=== PATIENT | female | born 1975 | race African-American/Black ===

== ENCOUNTER 2018-10-25 17:43 | Observation (INO) | payer MEDICAID, OTHER, SELFPAY ==
--- OUTSIDE RECORDS SUMMARY | 2018-10-25 17:45 | XMS REPORT ---
:1975 Author Organization eClinicalWorks Care Team Providers Name Role Phone Lopez, Na Provider Role Unavailable Allergies No Known Allergies Problems Problem Type Condition Code Onset Dates Condition Status Problem Obesity, morbid, BMI 40.0-49.9 E66.01 Active Problem Crohn's disease in remission K50.90 Active Problem Depression with anxiety F41.8 Active Problem Grade I hemorrhoids K64.0 Active Problem Urinary tract infection, site not N39.0 Active specified Problem Adult general medical exam Z00.00 Active Problem Multiple joint pain M25.50 Active Problem High blood pressure I10 Active Problem Seasonal allergic rhinitis due to J30.1 Active pollen Problem Hematuria, unspecified R31.9 Active Problem Chronic fatigue R53.82 Active Medications No Known Medications Results No Known Results Summary Purpose eClinicalWorks Submission
--- OUTSIDE RECORDS SUMMARY | 2018-10-25 17:45 | XMS REPORT ---
:1975 Author Organization [employer]Works Care Team Providers Name Role Phone Lopez, Na Provider Role Unavailable Allergies, Adverse Reactions, Alerts Substance Reaction Event Type N.K.D.A. Info Not Available Non Drug Allergy Problems Problem Type Condition Code Onset Dates Condition Status Problem Obesity, morbid, BMI 40.0-49.9 E66.01 Active Problem Crohn's disease in remission K50.90 Active Problem Depression with anxiety F41.8 Active Problem Urinary tract infection, site not N39.0 Active specified Problem Adult general medical exam Z00.00 Active Problem Multiple joint pain M25.50 Active Problem High blood pressure I10 Active Problem Seasonal allergic rhinitis due to J30.1 Active pollen Problem Hematuria, unspecified R31.9 Active Problem Chronic fatigue R53.82 Active Assessment Urinary tract infection, site not N39.0 Active specified Assessment High blood pressure I10 Active Assessment Hematuria, unspecified R31.9 Active Assessment Crohn's disease in remission K50.90 Active Assessment Multiple joint pain M25.50 Active Assessment Chronic fatigue R53.82 Active Assessment Adult general medical exam Z00.00 Active Assessment Depression with anxiety F41.8 Active Problem Grade I hemorrhoids K64.0 Active Medications Medication Code Code Instructions Start End Status Dosage System Date Date Paxil [facility] 14954886441 20 MG Orally December 26, Active 1 tablet Once a day 2017 in the morning Macrobid [facility] [place] [id number] 100 MG Orally Active 1 capsule every 12 hrs with food Metoprolol [facility] [place] [id number] 25 MG Orally December 26, Active 1 tablet Tartrate Twice a day 2017 with food Results No Known Results Summary Purpose eClinicalWorks Submission
--- OUTSIDE RECORDS SUMMARY | 2018-10-25 17:45 | XMS REPORT ---
:1975 Author Organization eClinicalWorks Care Team Providers Name Role Phone Lopez, Na Provider Role Unavailable Allergies, Adverse Reactions, Alerts Substance Reaction Event Type N.K.D.A. Info Not Available Non Drug Allergy Problems Problem Type Condition Code Onset Dates Condition Status Assessment Obesity, morbid, BMI 40.0-49.9 E66.01 Active Assessment Depression with anxiety F41.8 Active Assessment Seasonal allergic rhinitis due to J30.1 Active pollen Problem Depression with anxiety F41.8 Active Problem High blood pressure I10 Active Problem Obesity, morbid, BMI 40.0-49.9 E66.01 Active Assessment High blood pressure I10 Active Assessment Crohn's disease in remission K50.90 Active Problem Seasonal allergic rhinitis due to J30.1 Active pollen Problem Crohn's disease in remission K50.90 Active Medications Medication Code Code Instructions Start End Status Dosage System Date Date Paxil [facility] [id number] 20 MG Orally December 26, Active 1 tablet Once a day 2017 in the morning Metoprolol [facility] [id number] 25 MG Orally December 26, Active 1 tablet Tartrate Twice a day 2017 with food Results No Known Results Summary Purpose eClinicalWorks Submission
--- NOTE | 2018-10-25 20:08 | EDPHYS ---
Physician Documentation [facility] Name: Dori Guardado Age: 43 yrs Sex: Female : 1975 Arrival Date: 10/25/2018 Time: 17:45 Bed 20 Private MD: None, None ED Physician Hardy Yee HPI: 10/25 18:17 This 43 yrs old Black Female presents to ER via Ambulatory with complaints of Abdominal kdr Pain - crohn's. 18:17 The patient presents with abdominal pain in the epigastric area, in the upper abdomen. kdr Onset: The symptoms/episode began/occurred gradually, yesterday. The symptoms do not radiate. Associated signs and symptoms: Pertinent positives: blood in stools, nausea, Pertinent negatives: anorexia, constipation, diarrhea, dysuria, fever, headache, hematuria, palpitations, shortness of breath, vaginal discharge, vomiting, vomiting blood. The symptoms are described as achy, burning, intermittent. Modifying factors: The symptoms are alleviated by nothing, the symptoms are aggravated by food. Severity of pain: At its worst the pain was mild moderate just prior to arrival, this morning, in the emergency department the pain has improved moderately. The patient has experienced similar episodes in the past, a few times. The patient has not recently seen a physician. 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 - Social history:: Smoking status: Patient/guardian denies using tobacco. - Ebola Screening: : Patient denies travel to an Ebola-affected area in the 21 days before illness onset. ROS: 18:17 Constitutional: Negative for fever, chills, and weight loss, Eyes: Negative for injury, kdr pain, redness, and discharge, ENT: Negative for injury, pain, and discharge, Neck: Negative for injury, pain, and swelling, Cardiovascular: Negative for chest pain, palpitations, and edema, Respiratory: Negative for shortness of breath, cough, wheezing, and pleuritic chest pain, Back: Negative for injury and pain, : Negative for injury, bleeding, discharge, and swelling, MS/Extremity: Negative for injury and deformity, Skin: Negative for injury, rash, and discoloration, Neuro: Negative for headache, weakness, numbness, tingling, and seizure activity. Psych: Negative for depression, anxiety, suicide ideation, homicidal ideation, and hallucinations, Allergy/Immunology: Negative for hives, rash, and allergies, Endocrine: Negative for neck swelling, polydipsia, polyuria, polyphagia, and marked weight changes, Hematologic/Lymphatic: Negative for swollen nodes, abnormal bleeding, and unusual bruising. 18:17 Abdomen/GI: Positive for abdominal pain, nausea, rectal bleeding, Negative for vomiting, diarrhea, constipation, abdominal distension, anorexia, dysphagia, hematemesis, black/tarry stool, rectal pain, bowel incontinence, flatulence, acute changes. Exam: 18:17 Constitutional: This is a well developed, well nourished patient who is awake, alert, kdr and in no acute distress. Head/Face: Normocephalic, atraumatic. Eyes: Pupils equal round and reactive to light, extra-ocular motions intact. Lids and lashes normal. Conjunctiva and sclera are non-icteric and not injected. Cornea within normal limits. Periorbital areas with no swelling, redness, or edema. Neck: Trachea midline, no thyromegaly or masses palpated, and no cervical lymphadenopathy. Supple, full range of motion without nuchal rigidity, or vertebral point tenderness. No Meningismus. Chest/axilla: Normal chest wall appearance and motion. Nontender with no deformity. No lesions are appreciated. Cardiovascular: Regular rate and rhythm with a normal S1 and S2. No gallops, murmurs, or rubs. Normal PMI, no JVD. No pulse deficits. Respiratory: Lungs have equal breath sounds bilaterally, clear to auscultation and percussion. No rales, rhonchi or wheezes noted. No increased work of breathing, no retractions or nasal flaring. Back: No spinal tenderness. No costovertebral tenderness. Full range of motion. Skin: Warm, dry with normal turgor. Normal color with no rashes, no lesions, and no evidence of cellulitis. MS/ Extremity: Pulses equal, no cyanosis. Neurovascular intact. Full, normal range of motion. Neuro: Awake and alert, GCS 15, oriented to person, place, time, and situation. Cranial nerves II-XII grossly intact. Motor strength 5/5 in all extremities. Sensory grossly intact. Cerebellar exam normal. Normal gait. Psych: Awake, alert, with orientation to person, place and time. Behavior, mood, and affect are within normal limits. 18:17 Abdomen/GI: Inspection: obese Bowel sounds: active, high pitched, all quadrants. Palpation: soft, mild abdominal tenderness, in the right upper quadrant and left upper quadrant. 20:04 Musculoskeletal/extremity: DVT Exam: No signs of deep vein thrombosis. no pain, no sidney swelling, no tenderness, negative Homans' sign noted on exam, no appreciated bluish discoloration, no erythema, no increased warmth. Vital Signs: 18:07 BP 149 / 96; Pulse 77; Resp 16; Temp 98.2; Pulse Ox 99% on R/A; Weight 127.01 kg (R); aj1 Height 5 ft. 3 in. (160.02 cm) (R); 19:00 BP 139 / 75; Pulse 68; Resp 16; Pulse Ox 95% on R/A; jb4 20:00 BP 128 / 84; Pulse 69; Resp 16; Pulse Ox 69% on R/A; jb4 21:00 BP 143 / 87; Pulse 68; Resp 16; Pulse Ox 95% on R/A; jb4 22:00 BP 146 / 83; Pulse 77; Resp 16; Pulse Ox 96% on R/A; jb4 18:07 Body Mass Index 49.60 (127.01 kg, 160.02 cm) aj1 Procedures: 20:04 Peripheral line: by aseptic technique a peripheral line was placed in the left external sidney jugular vein. MDM: 18:17 Data reviewed: vital signs, nurses notes, lab test result(s), radiologic studies. kdr Counseling: I had a detailed discussion with the patient and/or guardian regarding: the historical points, exam findings, and any diagnostic results supporting the discharge/admit diagnosis, lab results, radiology results. 19:40 Patient medically screened. [facility] 10/25 18:04 Order name: Basic Metabolic Panel; Complete Time: 21:35 kdr 10/25 18:04 Order name: CBC with Diff; Complete Time: 21:35 kdr 10/25 18:04 Order name: Creatinine for Radiology; Complete Time: 21:35 kdr 10/25 18:04 Order name: Hepatic Function; Complete Time: 21:35 [facility] 10/25 18:04 Order name: Lipase; Complete Time: 21:35 [facility] 10/25 20:03 Order name: PT-INR; Complete Time: 21:35 [facility] 10/25 20:03 Order name: D-Dimer; Complete Time: 21:35 [facility] 10/25 20:14 Order name: Troponin I; Complete Time: 21:35 [facility] 10/25 20:14 Order name: NT PRO-BNP; Complete Time: 21:35 [facility] 10/25 20:14 Order name: Magnesium; Complete Time: 21:35 [facility] 10/25 20:49 Order name: CBC with Automated Diff [facility] 10/25 18:04 Order name: IV Saline Lock; Complete Time: 20:00 [facility] 10/25 18:04 Order name: Labs collected and sent; Complete Time: 20:00 [facility] 10/25 20:03 Order name: EKG; Complete Time: 20:04 [facility] 10/25 20:03 Order name: Cardiac monitoring; Complete Time: 20:38 [facility] 10/25 20:03 Order name: EKG - Nurse/Tech; Complete Time: 20:38 [facility] 10/25 20:03 Order name: Abdomen Acute Series XRAY [facility] 10/25 20:49 Order name: CONS Pharmacy Consult [facility] 10/25 20:49 Order name: NPO [facility] 10/25 20:49 Order name: CBC with Automated Diff [facility] 10/25 20:49 Order name: Comprehensive Metabolic Panel [facility] 10/25 20:49 Order name: Comprehensive Metabolic Panel [facility] 10/25 20:03 Order name: O2 Per Protocol; Complete Time: 20:38 [facility] 10/25 20:03 Order name: O2 Sat Monitoring; Complete Time: 20:38 [facility] Administered Medications: 20:05 Drug: Pepcid 20 mg Route: IVP; Site: left jugular; jb4 22:20 Follow up: Response: No adverse reaction jb4 20:35 Drug: Zofran 4 mg Route: IVP; Site: left jugular; jb4 21:27 Follow up: Response: No adverse reaction; Nausea is decreased jb4 20:37 Drug: fentaNYL (PF) 25 mcg Route: IVP; Site: left jugular; jb4 21:27 Follow up: Response: No adverse reaction; Pain is decreased jb4 21:27 Not Given (Physician Discretion): fentaNYL (PF) 25 mcg IVP once jb4 Disposition: 10/25/18 20:07 Hospitalization ordered by Yeison Baron for Observation. Preliminary diagnosis are Chest pain, unspecified, Abdominal tenderness, Crohn's disease [regional enteritis] - hx of, Atrial fibrillation and flutter - hx of. - Bed requested for Telemetry/MedSurg (observation). - Status is Observation. jb4 - Condition is Stable. - Problem is new. - Symptoms have improved. UTI on Admission? No Signatures: Dispatcher [employer] EDMS Marie Duarte, RN RN aj1 Kaycee Lr RN RN Hardy Meng MD MD cha Rittger, Kevin, MD MD kdr Bryson, James, RN RN jb4 Corrections: (The following items were deleted from the chart) 20:13 20:04 MAGNESIUM+C.LAB.BRZ ordered. EDMS EDMS 20:13 20:04 PROBNP+C.LAB.BRZ ordered. EDID EDMS 20:13 20:04 TROPONIN (EMERG DEPT USE ONLY)+C.LAB.BRZ ordered. EDID EDMS 20:24 18:15 Abdomen Pelvis W Con+CT.RAD.BRZ ordered. EDID EDMS 20:52 20:07 Hospitalization Ordered by Yeison Baron MD for Observation. Preliminary mw diagnosis is Chest pain, unspecified; Abdominal tenderness; Crohn's disease [regional enteritis] - hx of; Atrial fibrillation and flutter - hx of. Bed requested for Telemetry/MedSurg (observation). Status is Observation. Condition is Stable. Problem is new. Symptoms have improved. UTI on Admission? No. sidney 22:20 20:52 10/25/2018 20:07 Hospitalization Ordered by Yeison Baron MD for Observation. jb4 Preliminary diagnosis is Chest pain, unspecified; Abdominal tenderness; Crohn's disease [regional enteritis] - hx of; Atrial fibrillation and flutter - hx of. Bed requested for Telemetry/MedSurg (observation). Status is Observation. Condition is Stable. Problem is new. Symptoms have improved. UTI on Admission? No. mw
--- NOTE | 2018-10-25 20:08 | ER ---
Nurse's Notes [facility] Name: Dori Guardado Age: 43 yrs Sex: Female : 1975 Arrival Date: 10/25/2018 Time: 17:45 Bed 20 Private MD: None, None Diagnosis: Chest pain, unspecified;Abdominal tenderness;Crohn's disease [regional enteritis]-hx of;Atrial fibrillation and flutter-hx of Presentation: 10/25 18:03 Presenting complaint: Patient states: Epigastric pain that gets worse after eating, she aj1 also noticed some blood in her stool this morning. Denies N/V. Reports "some loose stool" Denies fever. Transition of care: patient was not received from another setting of care. Onset of symptoms was October 25, 2018. Risk Assessment: Do you want to hurt yourself or someone else? Patient reports no desire to harm self or others. Initial Sepsis Screen: Does the patient meet any 2 criteria? No. Patient's initial sepsis screen is negative. Does the patient have a suspected source of infection? No. Patient's initial sepsis screen is negative. Care prior to arrival: None. 18:03 Method Of Arrival: Ambulatory aj1 18:03 Acuity: KASH 3 aj1 Triage Assessment: 18:07 General: Appears in no apparent distress. comfortable, Behavior is calm, cooperative, aj1 appropriate for age. Pain: Complains of pain in epigastric area. Neuro: Level of Consciousness is awake, alert, obeys commands, Oriented to person, place, time, situation. GI: Reports upper abdominal pain. 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 - Social history:: Smoking status: Patient/guardian denies using tobacco. - Ebola Screening: : Patient denies travel to an Ebola-affected area in the 21 days before illness onset. Screenin:10 Abuse screen: Denies threats or abuse. Denies injuries from another. Nutritional aj1 screening: No deficits noted. Tuberculosis screening: No symptoms or risk factors identified. 21:38 Fall Risk None identified. jb4 Assessment: 18:10 General: Appears in no apparent distress. comfortable, Behavior is calm, cooperative, aj1 appropriate for age. Pain: Complains of pain in epigastric area. Neuro: Level of Consciousness is awake, alert, obeys commands, Oriented to person, place, time, situation. Cardiovascular: Patient's skin is warm and dry. Respiratory: Airway is patent Respiratory effort is even, unlabored, Respiratory pattern is regular, symmetrical. GI: Abdomen is non-distended, Bowel sounds present X 4 quads. Abd is soft X 4 quads Abdomen is tender to palpation in epigastric area. : No signs and/or symptoms were reported regarding the genitourinary system. EENT: No signs and/or symptoms were reported regarding the EENT system. Derm: No signs and/or symptoms reported regarding the dermatologic system. Skin is pink, warm \\T\\ dry. normal. Musculoskeletal: No signs and/or symptoms reported regarding the musculoskeletal system. Circulation, motion, and sensation intact. 19:15 Reassessment: Patient appears in no apparent distress at this time. Patient and/or jb4 family updated on plan of care and expected duration. Pain level reassessed. Patient is alert, oriented x 3, equal unlabored respirations, skin warm/dry/pink. 20:00 Reassessment: Patient appears in no apparent distress at this time. Patient and/or jb4 family updated on plan of care and expected duration. Pain level reassessed. Patient is alert, oriented x 3, equal unlabored respirations, skin warm/dry/pink. 21:00 Reassessment: Patient appears in no apparent distress at this time. Patient and/or jb4 family updated on plan of care and expected duration. Pain level reassessed. Patient is alert, oriented x 3, equal unlabored respirations, skin warm/dry/pink. 21:36 Reassessment: report given to Shira DELGADILLO for room 403. jb4 22:18 Reassessment: Patient appears in no apparent distress at this time. Patient and/or jb4 family updated on plan of care and expected duration. Pain level reassessed. Patient is alert, oriented x 3, equal unlabored respirations, skin warm/dry/pink. Vital Signs: 18:07 BP 149 / 96; Pulse 77; Resp 16; Temp 98.2; Pulse Ox 99% on R/A; Weight 127.01 kg (R); aj1 Height 5 ft. 3 in. (160.02 cm) (R); 19:00 BP 139 / 75; Pulse 68; Resp 16; Pulse Ox 95% on R/A; jb4 20:00 BP 128 / 84; Pulse 69; Resp 16; Pulse Ox 69% on R/A; jb4 21:00 BP 143 / 87; Pulse 68; Resp 16; Pulse Ox 95% on R/A; jb4 22:00 BP 146 / 83; Pulse 77; Resp 16; Pulse Ox 96% on R/A; jb4 18:07 Body Mass Index 49.60 (127.01 kg, 160.02 cm) aj1 ED Course: 17:45 Patient arrived in ED. sb2 17:46 None, None is Private Physician. sb2 18:03 Marie Duarte, RN is Primary Nurse. aj1 18:03 Yogesh Singh MD is Attending Physician. kdr 18:06 Triage completed. aj1 18:07 Arm band placed on Patient placed in an exam room. aj1 18:10 Patient has correct armband on for positive identification. Bed in low position. Call aj1 light in reach. Side rails up X 1. 18:10 No provider procedures requiring assistance completed. aj1 18:16 Radiology exam delayed due to lab results not completed at this time. (BUN/Creatinine). nj 19:06 Radiology exam delayed due to lab results not completed at this time. (BUN/Creatinine). jg6 19:38 Radiology exam delayed due to lab results not completed at this time. (BUN/Creatinine). 2 19:40 Attending Physician role handed off by Yogesh Singh MD sidney 19:40 Hardy Yee MD is Attending Physician. sidney 19:55 Radiology exam delayed due to lab results not completed at this time. (BUN/Creatinine). jg6 20:05 Yeison Baron MD is Hospitalizing Provider. sidney 20:06 Primary Nurse role handed off by Marie Duarte, RN jb 20:06 Hong Mosher, RN is Primary Nurse. jb4 20:18 Radiology exam delayed due to lab results not completed at this time. (BUN/Creatinine). nj 20:51 Abdomen Acute Series XRAY In Process Unspecified. EDMS 21:38 Patient admitted, IV remains in place. jb4 Administered Medications: 20:05 Drug: Pepcid 20 mg Route: IVP; Site: left jugular; jb4 22:20 Follow up: Response: No adverse reaction jb4 20:35 Drug: Zofran 4 mg Route: IVP; Site: left jugular; jb4 21:27 Follow up: Response: No adverse reaction; Nausea is decreased jb4 20:37 Drug: fentaNYL (PF) 25 mcg Route: IVP; Site: left jugular; jb4 21:27 Follow up: Response: No adverse reaction; Pain is decreased jb4 21:27 Not Given (Physician Discretion): fentaNYL (PF) 25 mcg IVP once jb4 Outcome: 20:07 Decision to Hospitalize by Provider. sidney 21:37 Admitted to Tele accompanied by tech, family with patient, via wheelchair, room 403, jb4 with chart, Report called to Shira DELGADILLO 21:37 Condition: stable jb4 21:37 Instructed on the need for admit. 22:20 Patient left the ED. jb4 Signatures: Dispatcher [employer] EDMarie Hernández, RN RN aj1 Hardy Yee MD MD cha Rittger, Kevin, MD MD kdr Bryson, James, RN RN jb4 Cj Chavira Victoria vm2 Billeau, Sheri sb2 Garcia, Jessica jg6
[2018-10-25] MEDS ORDERED: FAMOTIDINE 20 MG/2 ML VIAL IV ONE (20:09)
[2018-10-25 20:20] LABS: Absolute Lymphocytes (CBC) 3.5 K/uL (0.7-4.9); Absolute Monocytes 0.7 K/uL (0.1-1.3); Absolute Neutrophil 4.9 K/uL (1.8-8.0); Basophils % 0.6 % (0-1.3); Eosinophils % 0.6 % (0-4.4); Hematocrit 35.7 % (36.0-45.0); Lymphocytes % 37.8 % (15.3-44.8); MPV 8.7 fL (7.6-11.3); Monocytes % 7.7 % (3.3-12.3); RBC Red Blood Cell Count 4.57 M/uL (3.86-4.86)
[2018-10-25] MEDS ORDERED: FENTANYL CITR 100 MCG/2 ML ONE (20:23)
[2018-10-25] MEDS ORDERED: ONDANSETRON 4 MG/2 ML VIAL ONE (20:23)
[2018-10-25 20:37] LABS: Protime INR 1.11
[2018-10-25] MEDS ORDERED: MORPHINE 4 MG/ML SYR IV PRN (20:43)
[2018-10-25] MEDS ORDERED: ONDANSETRON 4 MG/2 ML VIAL IV PRN (20:43)
[2018-10-25 20:45] LABS: ALT/SGPT 20 U/L (12-78); AST/SGOT 15 U/L (15-37); Albumin 3.3 g/dL (3.4-5.0); Alkaline Phosphatase 71 U/L (45-117); BUN Blood Urea Nitrogen 8 mg/dL (7-18); Bicarbonate 26 mmol/L (21-32); Bilirubin Direct 0.2 mg/dL (0-0.2); Bilirubin Total 0.6 mg/dL (0.2-1.0); Glucose Level 84 mg/dL (74-106); Lipase 50 U/L (73-393); Magnesium 1.9 mg/dL (1.8-2.4); NT PRO-BNP 53 pg/mL (<125); Potassium 3.9 mmol/L (3.5-5.1); Protein, Total 8.6 g/dL (6.4-8.2); Sodium Level 140 mmol/L (136-145); Troponin I < 0.02 ng/mL (0.0-0.045)
[2018-10-25] MEDS ORDERED: Levofloxacin500mg IV 500 MG/100 ML BAG IV SCH (21:00)
[2018-10-25] MEDS: NA CHLORIDE 0.9% 1,000 ML IV SCH (22:45)
[2018-10-25] MEDS: METRONIDAZOLE 500mg IVPB 500 MG/100 ML BAG IV SCH (22:46)
[2018-10-25 23:07] VITALS: BMI 51.2
[2018-10-26] MEDS: METHYLPREDNISOLONE 125 MG INJ IV SCH ×3 (00:34→11:52)
[2018-10-26] MEDS: METRONIDAZOLE 500mg IVPB 500 MG/100 ML BAG IV SCH ×2 (03:20→09:22)
[2018-10-26] MEDS: ACETAMINOPHEN 500 MG TAB PO PRN ×2 (05:43→11:57)
[2018-10-26 06:13] LABS: Urine Appearance CLEAR; Urine Bilirubin NEGATIVE (NEG); Urine Blood NEGATIVE (NEG); Urine Color YELLOW; Urine Glucose NEGATIVE (NEG); Urine Protein NEGATIVE (NEG); Urine Specific Gravity 1.015 (1.005-1.030); Urine Urobilinogen 0.2 mg/dL (0.2-1.0); Urine pH 6.5 (5.0-7.0)
[2018-10-26 06:14] LABS: Urine Microscopic Reflex NO UMIC
[2018-10-26 06:14] LABS: Absolute Lymphocytes (CBC) 1.3 K/uL (0.7-4.9); Absolute Monocytes 0.1 K/uL (0.1-1.3); Absolute Neutrophil 5.7 K/uL (1.8-8.0); Basophils % 0.4 % (0-1.3); Hematocrit 36.6 % (36.0-45.0); Lymphocytes % 18.6 % (15.3-44.8); MPV 8.9 fL (7.6-11.3); Monocytes % 1.9 % (3.3-12.3); RBC Red Blood Cell Count 4.68 M/uL (3.86-4.86)
[2018-10-26 06:22] LABS: ALT/SGPT 19 U/L (12-78); AST/SGOT 16 U/L (15-37); Albumin 3.2 g/dL (3.4-5.0); Alkaline Phosphatase 78 U/L (45-117); BUN Blood Urea Nitrogen 8 mg/dL (7-18); Bicarbonate 25 mmol/L (21-32); Bilirubin Total 0.7 mg/dL (0.2-1.0); Glucose Level 125 mg/dL (74-106); Potassium 4.1 mmol/L (3.5-5.1); Protein, Total 8.6 g/dL (6.4-8.2); Sodium Level 140 mmol/L (136-145)
--- NOTE | 2018-10-26 07:22 | RAD REPORT ---
EXAM DESCRIPTION: RAD - Abdomen Acute Series - 10/25/2018 8:51 pm CLINICAL HISTORY: Lower chest pain, abdominal pain COMPARISON: Chest exam March 2017, CT abdomen March 2017 FINDINGS: Lungs are clear. Heart size is upper normal. Vasculature within normal limits. No failure or volume overload. Heart size is stable from comparison. No pleural effusion, pneumothorax or other acute cardiopulmonary process seen. Bowel gas pattern is nonspecific. No bowel obstruction, free air or other acute findings. No suspicio us calcifications. Cholecystectomy clips are present. No other suspicious for significant findings. IMPRESSION: Chest, abdomen and plain film show no acute or suspicious finding. Continued unexplained pain symptoms can be further evaluated with CT imaging as warranted.
[2018-10-26] MEDS ORDERED: INFLUENZA VACCINE (for 3y+) 0.5 ML DOSE IMVAC ONE (08:00)
--- NOTE | 2018-10-26 08:08 | P.HP ---
Certification for Inpatient Patient admitted to: Observation With expected LOS: <2 Midnights Practitioner: I am a practitioner with admitting privileges, knowledge of patient current condition, hospital course, and medical plan of care. Services: Services provided to patient in accordance with Admission requirements found in Title 42 Section 412.3 of the Code of Federal Regulations Patient History Date of Service: 10/25/18 Reason for admission: epigastric pain/ chest pain/ blood in stools History of Present Illness: Patient is a 43-year-old female who came into the hospital with epigastric pain. She has a history of Crohn's disease and has also noticed some blood in her stools which she thought was related to hemorrhoids. She was on Humira in the past for her Crohn's disease. However, after attending a seminar she started on herbal medications. She has not had a flare up in the last 3 years. This is the 1st time she has had some tenderness. She came into the hospital for further evaluation. Allergies No Known Allergies Allergy (Verified 10/25/18 22:51) Home Medications: Metoprolol Tartrate [Lopressor*] 25 mg PO BID 02/12/14 Aspirin 81 mg PO DAILY 09/16/14 Famotidine [Pepcid] 1 tab PO DAILY 10/26/18 Omeprazole 1 cap PO DAILY 10/26/18 - Past Medical/Surgical History Has patient received pneumonia vaccine in the past: No Diabetic: No -: HTN -: Atrial fibrillation -: partial hysterectomy -: Partial resection small intestine -: section -: Appendectomy -: Cholecystectomy - Family History Father Medical History: Heart disease, Diabetes Mother Medical History: Heart disease, Diabetes - Social History Smoking Status: Never smoker Alcohol use: No CD- Drugs: No Caffeine use: No Place of Residence: Home Review of Systems 10-point ROS is otherwise unremarkable Physical Examination - Vital Signs Temperature: 98.8 F Blood Pressure: 124/67 Pulse: 72 Respirations: 16 Pulse Ox (%): 97 - Physical Exam General: Alert, In no apparent distress, Oriented x3 HEENT: Atraumatic, PERRLA, Mucous membr. moist/pink, EOMI, Sclerae nonicteric Neck: Supple, 2+ carotid pulse no bruit, No LAD, Without JVD or thyroid abnormality Respiratory: Clear to auscultation bilaterally, Normal air movement Cardiovascular: Regular rate/rhythm, Normal S1 S2, No murmurs Gastrointestinal: Normal bowel sounds, Soft and benign, Non-distended, Tenderness ( Left upper quadrant) Musculoskeletal: No clubbing, No swelling, No tenderness Integumentary: No rashes Neurological: Normal gait, Normal speech, Normal strength at 5/5 x4 extr, Normal tone, Sensation intact, Cranial nerves 3-12 intact, Normal affect Lymphatics: No axilla or inguinal lymphadenopathy - Studies Laboratory Data (last 24 hrs) 10/25/18 20:03: Magnesium Cancelled 10/25/18 19:55: PT 13.1 H, INR 1.11 10/25/18 19:55: Creatinine 0.69 10/25/18 19:55: WBC 9.2, Hgb 11.5 L, Hct 35.7 L, Plt Count 368 10/25/18 19:55: Sodium 140, Potassium 3.9, BUN 8, Creatinine 0.65, Glucose 84, Magnesium 1.9, Total Bilirubin 0.6, AST 15, ALT 20, Alkaline Phosphatase 71, Troponin I < 0.02, Lipase 50 L Assessment & Plan - Problems (Diagnosis) (1) Colitis Current Visit: Yes Status: Acute (2) Atrial fibrillation Current Visit: No Status: Acute (3) Crohns disease Current Visit: No Status: Acute (4) Hypertension Current Visit: No Status: Acute Qualifiers: (5) Obesity Current Visit: No Status: Acute - Plan Plan: 1. IV fluids and IV antibiotics 2. give 1 dose of IV steroids 3. GI consultation as an outpatient 4. Pain control 5. Outpatient colonoscopy 6. pain is in the epigastric region so will rule out cardiac etiology with troponins and echocardiogram; she may need further testing as an outpatient unless her symptoms worsen in the hospital 7. GI and DVT prophylaxis Discharge Plan: Home Plan to discharge in: 48 Hours - Advance Directives Does patient have a Living Will: No Does patient have a Durable POA for Healthcare: No - Code Status/Comfort Care Code Status Assessed: Yes Code Status: Full Code Critical Care: No Time Spent Managing PTS Care (In Minutes): 45
[2018-10-26] MEDS ORDERED: HOME MED 1 EA UNK (Omeprazole [Omeprazole] 1 CAP) PO SCH (09:00)
[2018-10-26] MEDS ORDERED: METOPROLOL TAR 25 MG TAB PO SCH (09:00)
[2018-10-26] MEDS ORDERED: ASPIRIN 81 MG CHEWABLE TABLET PO SCH (09:00)
[2018-10-26] MEDS ORDERED: FAMOTIDINE 20 MG TAB PO SCH (09:00)
[2018-10-26] MEDS ORDERED: PANTOPRAZOLE 40MG TABLET PO SCH (09:18)
[2018-10-26] MEDS: NA CHLORIDE 0.9% 1,000 ML IV SCH (10:20)
[2018-10-26 10:39] VITALS: O2SAT 92
[2018-10-26 13:25] VITALS: BP 120/81; TEMP 97.1
--- NOTE | 2018-10-26 14:14 | P.SSS ---
Patient History Date of Service: 10/26/18 Reason for admission: epigastric pain/ chest pain/ blood in stools History of Present Illness: Patient is a 43-year-old female who came into the hospital with epigastric pain. She has a history of Crohn's disease and has also noticed some blood in her stools which she thought was related to hemorrhoids. She was on Humira in the past for her Crohn's disease. However, after attending a seminar she started on herbal medications. She has not had a flare up in the last 3 years. This is the 1st time she has had some tenderness. She came into the hospital for further evaluation. Allergies No Known Allergies Allergy (Verified 10/25/18 22:51) Home Medications: Metoprolol Tartrate [Lopressor*] 25 mg PO BID 02/12/14 Aspirin 81 mg PO DAILY 09/16/14 Famotidine [Pepcid] 1 tab PO DAILY 10/26/18 Omeprazole 1 cap PO DAILY 10/26/18 Prednisone [Deltasone] 20 mg PO BID #10 tablet 10/26/18 - Past Medical/Surgical History Has patient received pneumonia vaccine in the past: No Diabetic: No -: HTN -: Atrial fibrillation -: partial hysterectomy -: Partial resection small intestine -: section -: Appendectomy -: Cholecystectomy - Family History Father -: Heart disease, Diabetes Mother -: Heart disease, Diabetes - Social History Smoking Status: Never smoker Alcohol use: No CD- Drugs: No Caffeine use: No Place of Residence: Home Review of Systems 10-point ROS is otherwise unremarkable Physical Examination - Vital Signs Temperature: 97.1 F Blood Pressure: 120/81 Pulse: 70 Respirations: 20 Pulse Ox (%): 93 - Physical Exam General: Alert, In no apparent distress HEENT: Atraumatic, PERRLA, Mucous membr. moist/pink, EOMI, Sclerae nonicteric Neck: Supple, 2+ carotid pulse no bruit, No LAD, Without JVD or thyroid abnormality Respiratory: Clear to auscultation bilaterally, Normal air movement Cardiovascular: Regular rate/rhythm, Normal S1 S2 Gastrointestinal: Normal bowel sounds, No tenderness Musculoskeletal: No tenderness Integumentary: No rashes Neurological: Normal gait, Normal speech, Normal strength at 5/5 x4 extr, Normal tone, Normal affect Lymphatics: No axilla or inguinal lymphadenopathy - Studies Laboratory Data (last 24 hrs) 10/25/18 20:03: Magnesium Cancelled 10/25/18 19:55: PT 13.1 H, INR 1.11 10/25/18 19:55: Creatinine 0.69 10/25/18 19:55: WBC 9.2, Hgb 11.5 L, Hct 35.7 L, Plt Count 368 10/25/18 19:55: Sodium 140, Potassium 3.9, BUN 8, Creatinine 0.65, Glucose 84, Magnesium 1.9, Total Bilirubin 0.6, AST 15, ALT 20, Alkaline Phosphatase 71, Troponin I < 0.02, Lipase 50 L - Diagnosis (Problem(s)) (1) Viral gastroenteritis Status: Acute (2) Atrial fibrillation Status: Acute (3) Crohns disease Status: Acute (4) Hypertension Status: Acute Qualifiers: (5) Obesity Status: Chronic Qualifiers: Obesity type: due to excess calories Obesity classification: adult class 3 (BMI >= 40) Serious obesity comorbidity presence: with serious comorbidity Body mass index: BMI 50.0-59.9 Qualified Code(s): E66.01 - Morbid (severe) obesity due to excess calories; Z68.43 - Body mass index (BMI) 50-59.9, adult Treatment Summary: Overall during hospital stay patient remained stable Patient was initially admitted to the hospital for abdominal pain nausea vomiting. Abdominal CT was done in the ER which was negative for any acute abnormality. Patient does have a history of Crohn's disease. Patient most likely however had viral gastroenteritis versus Crohn's disease flare-up. Patient was started on IV steroids had marked improvement in her symptoms. Patient also had resolution of her abdominal pain nausea vomiting and thus was discharged home under stable condition. Patient was given a prescription for prednisone to take for the next 5 days. It was asked to continue taking her medication for Crohn's and was asked to follow up with the primary care provider in about 1-2 days post discharge - Disposition Disposition: ROUTINE DISCHARGE Condition: GOOD Diet: Regular Activity: Ad esme
--- NOTE | 2018-10-26 15:38 | ECHO ---
HEIGHT: 5 ft 3 in WEIGHT: 289 lb 0 oz DATE OF STUDY: 10/26/[address]: Yeison Baron MD 2-DIMENSIONAL: YES M.MODE: YES DOPPLER: YES COLOR FLOW: YES TDS: NO PORTABLE: NO DEFINITY: NO BUBBLE STUDY: NO DIAGNOSIS: CHEST PAIN CARDIAC HISTORY: CATHERIZATION: NO SURGERY: NO PROSTHETIC VALVE: NO PACEMAKER: NO MEASUREMENTS (cm) DIASTOLIC (NORMALS) SYSTOLIC (NORMALS) IVSd 1.1 (0.6-1.2) LA Diam 3.6 (1.9-4.0) LVEF 70% LVIDd 4.6 (3.5-5.7) LVIDs 2.8 (2.0-3.5) %FS 39% LVPWd 1.0 (0.6-1.2) Ao Diam 3.1 (2.0-3.7) 2 DIMENSIONAL ASSESSMENT: RIGHT ATRIUM: NORMAL LEFT ATRIUM: NORMAL RIGHT VENTRICLE: NORMAL LEFT VENTRICLE: NORMAL TRICUSPID VALVE: NORMAL MITRAL VALVE: NORMAL PULMONIC VALVE: NORMAL AORTIC VALVE: NORMAL PERICARDIAL EFFUSION: NONE AORTIC ROOT: NORMAL LEFT VENTRICULAR WALL MOTION: NORMAL DOPPLER/COLOR FLOW: MILD TRICUSPID REGURGITATION. NORMAL RIGHT VENTRICULAR SYSTOLIC PRESSURE. COMMENTS: NORMAL 2D ECHOCARDIOGRAM. MILD TRICUSPID REGURGITATION. TECHNOLOGIST: Estelle SCHOFIELD
--- NOTE | 2018-10-26 16:19 | EKG ---
Test Date: 2018-10-25 Test Time: 20:17:23 Cma Or Lpn: ALYSSA MEASUREMENT RESULTS: Intervals: Rate: 69 RI: 148 QRSD: 86 QT: 390 QTc: 417 [place]: P: -3 RI: 148 QRS: -3 T: 1 INTERPRETIVE STATEMENTS: Normal sinus rhythm Minimal voltage criteria for LVH, may be normal variant Borderline ECG Compared to ECG 04/17/2017 01:50:23 Left ventricular hypertrophy now present Myocardial infarct finding no longer present Electronically Signed On 10-26-18 16:18:49 VOCATIONAL ED INSTRUCTOR by Florencio Luther
== END 2018-10-26 13:09 | disposition home or self-care (01) ==
LOC: ER 17:43 → ERHOLD 20:44 → 4TH 21:37
PROVIDERS: ADMIT Hospitalist; ATTEND Hospitalist
DX: A08.4 Viral intestinal infection, unspecified (principal); I48.91 Unspecified atrial fibrillation; I10 Essential (primary) hypertension; K50.90 Crohn's disease, unspecified, without complications; E66.9 Obesity, unspecified; Z68.43 Body mass index [BMI] 50.0-59.9, adult
CPT/HCPCS: 36415; 74022; 80048; 80053; 80076; 81003; 83690; 83735; 83880; 84484; 85025; 85379; 85610; 93005; 93306; 96374; 96375; 99285; G0378; J2405; J2930; J3010; J7030

== ENCOUNTER 2019-01-01 21:24 | Emergency (ER) | payer OTHER, SELFPAY ==
--- OUTSIDE RECORDS SUMMARY | 2019-01-01 21:59 | XMS REPORT ---
[...] End Status Dosage System Date Date Paxil [facility] 62808406512 20 MG Orally December 26, Active 1 tablet Once a day 2017 in the morning Metoprolol [facility] [id number] 25 MG Orally December 26, Active 1 tablet Tartrate Twice a day 2017 with food Results No Known Results Summary Purpose eClinicalWorks Submission
--- OUTSIDE RECORDS SUMMARY | 2019-01-01 22:00 | XMS REPORT ---
[...] End Status Dosage System Date Date Paxil [facility] [id number] 20 MG Orally December 26, Active 1 tablet Once a day 2017 in the morning Macrobid [facility] [id number] 100 MG Orally Active 1 capsule every 12 hrs with food Metoprolol [facility] [id number] 25 MG Orally December 26, Active 1 tablet Tartrate Twice a day 2017 with food Results No Known Results Summary Purpose eClinicalWorks Submission
--- NOTE | 2019-01-01 22:22 | ER ---
Nurse's Notes [facility] Name: Dori Guardado Age: 43 yrs Sex: Female : 1975 Arrival Date: 01/01/2019 Time: 21:25 Bed 25 Private MD: Noemy Lopez Diagnosis: Rash and other nonspecific skin eruption Presentation: 01/01 21:59 Presenting complaint: Patient states: "I have a history of Crohns, but since yesterday jd3 I have had a rash on my arms and belly.". Transition of care: patient was not received from another setting of care. Onset of symptoms was December 31, 2018. Risk Assessment: Do you want to hurt yourself or someone else? Patient reports no desire to harm self or others. Initial Sepsis Screen: Does the patient meet any 2 criteria? No. Patient's initial sepsis screen is negative. Does the patient have a suspected source of infection? No. Patient's initial sepsis screen is negative. Care prior to arrival: None. 21:59 Method Of Arrival: Ambulatory j 21:59 Acuity: KASH 4 jd3 Triage Assessment: 22:38 General: Appears in no apparent distress. comfortable, Behavior is calm, cooperative. mg2 Pain: Complains of pain in abdomen. 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 - Social history:: Smoking status: Patient/guardian denies using tobacco. - Ebola Screening: : Patient negative for fever greater than or equal to 101.5 degrees Fahrenheit, and additional compatible Ebola Virus Disease symptoms. Screenin:18 Abuse screen: Denies threats or abuse. Denies injuries from another. Nutritional mg2 screening: No deficits noted. Tuberculosis screening: No symptoms or risk factors identified. Fall Risk None identified. Assessment: 22:37 Derm: Skin is intact, is healthy with good turgor, Rash noted that is itchy, on left mg2 arm and abdomen. Vital Signs: 22:03 BP 141 / 97; Pulse 84; Resp 16 S; Temp 98.4(O); Pulse Ox 95% on R/A; Weight 117.93 kg jd3 (R); Height 5 ft. 3 in. (160.02 cm) (R); Pain 5/10; 22:03 Body Mass Index 46.06 (117.93 kg, 160.02 cm) jd3 ED Course: 21:25 Patient arrived in ED. am2 21:26 Noemy Lopez MD is Private Physician. am2 22:01 Triage completed. jd3 22:04 Arm band placed on. jd3 22:10 Mishel [facility]C [facility] kb 22:10 Hardy Yee MD is Attending Physician. kb 22:17 Sergio Coelho, LEONA is Primary Nurse. mg2 22:18 No provider procedures requiring assistance completed. mg2 22:19 Patient has correct armband on for positive identification. mg2 22:38 Patient did not have IV access during this emergency room visit. mg2 Administered Medications: 22:27 Drug: Pepcid 20 mg Route: PO; mg2 22:27 Follow up: Response: No adverse reaction; Medication administered at discharge. mg2 22:27 Drug: predniSONE 40 mg Route: PO; mg2 22:27 Follow up: Response: No adverse reaction; Medication administered at discharge. mg2 Outcome: 22:21 Discharge ordered by MD. kb 22:38 Discharged to home ambulatory, with family. mg2 22:38 Condition: stable 22:38 Discharge instructions given to patient, family, Instructed on discharge instructions, follow up and referral plans. medication usage, Demonstrated understanding of instructions, follow-up care, medications, Prescriptions given X 2. 22:39 Patient left the ED. mg2 Signatures: Mishel Cota FNP-C FNP-Madelin Mayo am2 Jose R Lovell RN RN jd3 Sergio Coelho RN RN mg2
--- NOTE | 2019-01-01 22:22 | EDPHYS ---
Physician Documentation [facility] Name: Dori Guardado Age: 43 yrs Sex: Female : 1975 Arrival Date: 01/01/2019 Time: 21:25 Bed 25 Private MD: Noemy Lopez ED Physician Hardy Yee HPI: 01/01 22:20 This 43 yrs old Black Female presents to ER via Ambulatory with complaints of Rash - hx kb of chrons. 22:20 The patient's rash thought to be caused by an unknown cause. The rash is located on the kb left leg and right leg and left arm and right arm and abdomen. The rash can be described as papular. Onset: The symptoms/episode began/occurred 2 day(s) ago. Associated signs and symptoms: Pertinent positives: itching. Severity of symptoms: At their worst the symptoms were mild moderate in the emergency department the symptoms are unchanged. The patient has not experienced similar symptoms in the past. The patient has not recently seen a physician. Pt reports itchy rash that started 2 days ago after taking 1000mg of CBD oil. 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 - Social history:: Smoking status: Patient/guardian denies using tobacco. - Ebola Screening: : Patient negative for fever greater than or equal to 101.5 degrees Fahrenheit, and additional compatible Ebola Virus Disease symptoms. ROS: 22:19 Constitutional: Negative for fever, chills, and weight loss, Cardiovascular: Negative kb for chest pain, palpitations, and edema, Respiratory: Negative for shortness of breath, cough, wheezing, and pleuritic chest pain, Abdomen/GI: Negative for abdominal pain, nausea, vomiting, diarrhea, and constipation, Back: Negative for injury and pain, : Negative for injury, bleeding, discharge, and swelling, MS/Extremity: Negative for injury and deformity, Neuro: Negative for headache, weakness, numbness, tingling, and seizure. 22:19 Skin: Positive for rash, of the abdomen, right arm, left arm, right leg and left leg. Exam: 22:19 Constitutional: This is a well developed, well nourished patient who is awake, alert, kb and in no acute distress. Head/Face: Normocephalic, atraumatic. Neck: Trachea midline, no thyromegaly or masses palpated, and no cervical lymphadenopathy. Supple, full range of motion without nuchal rigidity, or vertebral point tenderness. No Meningismus. Chest/axilla: Normal chest wall appearance and motion. Nontender with no deformity. No lesions are appreciated. Cardiovascular: Regular rate and rhythm with a normal S1 and S2. No gallops, murmurs, or rubs. Normal PMI, no JVD. No pulse deficits. Respiratory: Lungs have equal breath sounds bilaterally, clear to auscultation and percussion. No rales, rhonchi or wheezes noted. No increased work of breathing, no retractions or nasal flaring. Abdomen/GI: Soft, non-tender, with normal bowel sounds. No distension or tympany. No guarding or rebound. No evidence of tenderness throughout. MS/ Extremity: Pulses equal, no cyanosis. Neurovascular intact. Full, normal range of motion. Neuro: Awake and alert, GCS 15, oriented to person, place, time, and situation. Cranial nerves II-XII grossly intact. Motor strength 5/5 in all extremities. Sensory grossly intact. Cerebellar exam normal. Normal gait. 22:20 Skin: rash can be described as papular, on the left leg and right leg and left arm and kb right arm and abdomen. Vital Signs: 22:03 BP 141 / 97; Pulse 84; Resp 16 S; Temp 98.4(O); Pulse Ox 95% on R/A; Weight 117.93 kg jd3 (R); Height 5 ft. 3 in. (160.02 cm) (R); Pain 5/10; 22:03 Body Mass Index 46.06 (117.93 kg, 160.02 cm) jd3 MDM: 22:10 Patient medically screened. kb 22:19 Data reviewed: vital signs, nurses notes. Data interpreted: Pulse oximetry: on room air kb is 95 %. Interpretation: normal. Counseling: I had a detailed discussion with the patient and/or guardian regarding: the historical points, exam findings, and any diagnostic results supporting the discharge/admit diagnosis, the need for outpatient follow up, a family practitioner, to return to the emergency department if symptoms worsen or persist or if there are any questions or concerns that arise at home. Administered Medications: 22:27 Drug: Pepcid 20 mg Route: PO; mg2 22:27 Follow up: Response: No adverse reaction; Medication administered at discharge. mg2 22:27 Drug: predniSONE 40 mg Route: PO; mg2 22:27 Follow up: Response: No adverse reaction; Medication administered at discharge. mg2 Disposition: 01/02 08:53 Co-signature as Attending Physician, Hardy Yee MD I agree with the assessment and sidney plan of care. Disposition: 01/01/19 22:21 Discharged to Home. Impression: Rash and other nonspecific skin eruption. - Condition is Stable. - Discharge Instructions: Rash, [id number], Allergies, [id number]. - Prescriptions for Pepcid 20 mg Oral Tablet - take 1 tablet by ORAL route every 12 hours for 5 days; 10 tablet. Prednisone 20 mg Oral Tablet - take 1 tablet by ORAL route once daily for 5 days; 5 tablet. - Medication Reconciliation Form, Thank You Letter, Antibiotic Education, Prescription Opioid Use form. - Follow up: Emergency Department; When: As needed; Reason: Worsening of condition. Follow up: Private Physician; When: 2 - 3 days; Reason: Recheck today's complaints, Continuance of care, Re-evaluation by your physician. Signatures: Mishel Cota, FLEET TECHNICIAN-C FLEET TECHNICIAN-Hardy Vallejo MD MD cha Davies, Jonathon RN RN jSergio Narvaez RN RN mg2 Corrections: (The following items were deleted from the chart) 01/01 22:20 22:19 Skin: rash can be described as macular, papular, on the left leg and right leg kb and left arm and right arm and abdomen, kb 22:39 22:21 01/01/2019 22:21 Discharged to Home. Impression: Rash and other nonspecific skin mg2 eruption. Condition is Stable. Forms are Medication Reconciliation Form, Thank You Letter, Antibiotic Education, Prescription Opioid Use. Follow up: Emergency Department; When: As needed; Reason: Worsening of condition. Follow up: Private Physician; When: 2 - 3 days; Reason: Recheck today's complaints, Continuance of care, Re-evaluation by your physician. kb
[2019-01-01] MEDS ORDERED: predniSONE 20 MG TAB ONE (22:34)
[2019-01-01] MEDS ORDERED: FAMOTIDINE 20 MG TAB ONE (22:34)
[2019-01-01 22:56] VITALS: BP 141/97; TEMP 98.4; O2SAT 95
== END 2019-01-01 22:39 | disposition home or self-care (01) ==
LOC: ER 21:24
DX: R21 Rash and other nonspecific skin eruption (principal); I10 Essential (primary) hypertension; I48.91 Unspecified atrial fibrillation; Z79.82 Long term (current) use of aspirin; Z79.899 Other long term (current) drug therapy; K50.90 Crohn's disease, unspecified, without complications
CPT/HCPCS: 99283; J7512

== ENCOUNTER 2019-01-23 03:34 | Emergency (ER) | payer OTHER ==
[2019-01-23 04:17] LABS: Absolute Lymphocytes (CBC) 3.2 K/uL (0.7-4.9); Absolute Monocytes 0.5 K/uL (0.1-1.3); Absolute Neutrophil 3.3 K/uL (1.8-8.0); Basophils % 1.2 % (0-1.3); Eosinophils % 1.4 % (0-4.4); Lymphocytes % 44.6 % (15.3-44.8); MPV 8.4 fL (7.6-11.3); Monocytes % 6.3 % (3.3-12.3); RBC Red Blood Cell Count 5.03 M/uL (3.86-4.86)
[2019-01-23] MEDS ORDERED: ONDANSETRON 4 MG (ODT) TAB ONE (04:24)
[2019-01-23 04:33] LABS: ALT/SGPT 28 U/L (12-78); AST/SGOT 17 U/L (15-37); Albumin 3.4 g/dL (3.4-5.0); Alkaline Phosphatase 76 U/L (45-117); BUN Blood Urea Nitrogen 9 mg/dL (7-18); Bicarbonate 26 mmol/L (21-32); Bilirubin Direct < 0.1 mg/dL (0-0.2); Bilirubin Total 0.4 mg/dL (0.2-1.0); Glucose Level 96 mg/dL (74-106); Lipase 71 U/L (73-393); Potassium 3.8 mmol/L (3.5-5.1); Protein, Total 8.7 g/dL (6.4-8.2); Sodium Level 142 mmol/L (136-145)
[2019-01-23] MEDS ORDERED: LIDOCAINE VISCOUS 2% SOLN 15 ML UDC ONE (04:37)
[2019-01-23] MEDS ORDERED: MAGNE/ALUM HYDROXD 30 ML UCUP ONE (04:37)
[2019-01-23 05:39] LABS: Urine Bacteria <20 /HPF (<20); Urine Culture Reflex Order NOT NEEDED; Urine Mucus MOD /HPF (NONE SEEN); Urine RBC NONE SEEN /HPF (NONE SEEN)
[2019-01-23 05:49] LABS: Urine Blood NEGATIVE (NEG); Urine Glucose NEGATIVE (NEG); Urine Protein NEGATIVE (NEG); Urine Specific Gravity 1.025 (1.005-1.030); Urine pH 5.5 (5.0-7.0)
--- NOTE | 2019-01-23 06:56 | EDPHYS ---
Physician Documentation [facility] Name: Dori Guardado Age: 43 yrs Sex: Female : 1975 Arrival Date: 01/23/2019 Time: 03:35 Bed 16 Private MD: Noemy Lopez ED Physician Vinh Gilmore HPI: 01/23 06:53 This 43 yrs old Black Female presents to ER via Ambulatory with complaints of Abdominal tw4 Pain - Upper. 06:53 The patient presents with abdominal pain. Onset: The symptoms/episode began/occurred tw4 today. The symptoms do not radiate. Associated signs and symptoms: none. The symptoms are described as sharp. Modifying factors: The symptoms are alleviated by nothing, the symptoms are aggravated by nothing. The patient has not experienced similar symptoms in the past. 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 - Social history:: Smoking status: Patient/guardian denies using tobacco, Patient/guardian denies using alcohol. - Ebola Screening: : No symptoms or risks identified at this time. ROS: 06:53 Constitutional: Negative for fever, chills, and weight loss, Eyes: Negative for injury, tw4 pain, redness, and discharge, Cardiovascular: Negative for chest pain, palpitations, and edema, Respiratory: Negative for shortness of breath, cough, wheezing, and pleuritic chest pain, MS/Extremity: Negative for injury and deformity, Skin: Negative for injury, rash, and discoloration, Neuro: Negative for headache, weakness, numbness, tingling, and seizure. 06:53 Abdomen/GI: Positive for abdominal pain, Negative for nausea. Exam: 06:53 Constitutional: This is a well developed, well nourished patient who is awake, alert, tw4 and in no acute distress. Head/Face: Normocephalic, atraumatic. Chest/axilla: Normal chest wall appearance and motion. Nontender with no deformity. No lesions are appreciated. Cardiovascular: Regular rate and rhythm with a normal S1 and S2. No gallops, murmurs, or rubs. Normal PMI, no JVD. No pulse deficits. Respiratory: Lungs have equal breath sounds bilaterally, clear to auscultation and percussion. No rales, rhonchi or wheezes noted. No increased work of breathing, no retractions or nasal flaring. MS/ Extremity: Pulses equal, no cyanosis. Neurovascular intact. Full, normal range of motion. Neuro: Awake and alert, GCS 15, oriented to person, place, time, and situation. Cranial nerves II-XII grossly intact. Motor strength 5/5 in all extremities. Sensory grossly intact. Cerebellar exam normal. Normal gait. 06:53 Abdomen/GI: Inspection: abdomen appears normal, Bowel sounds: normal, Palpation: mild abdominal tenderness, in the epigastric area. Vital Signs: 03:40 BP 126 / 82; Pulse 74; Resp 16; Temp 98.1; Pulse Ox 98% on R/A; Weight 122.47 kg (R); jb4 Height 5 ft. 3 in. (160.02 cm) (R); Pain 7/10; 04:45 BP 135 / 97; Pulse 73; Resp 16; Pulse Ox 95% on R/A; jb4 06:00 BP 145 / 97; Pulse 61; Resp 16; Pulse Ox 95% on R/A; Pain 0/10; jb4 07:15 BP 130 / 98; Pulse 64; Resp 16; Pulse Ox 97% ; bp 03:40 Body Mass Index 47.83 (122.47 kg, 160.02 cm) jb4 MDM: 03:40 Patient medically screened. tw4 06:53 Differential diagnosis: Cholelithiasis, gastritis, gastroesophageal reflux disease, GI tw4 Bleed, Hepatitis, Peptic Ulcer Disease, Perf. Duodenal Ulcer, Perf. Gastric Ulcer. Data reviewed: vital signs, nurses notes. Data interpreted: Pulse oximetry: Interpretation: normal. Counseling: I had a detailed discussion with the patient and/or guardian regarding: the historical points, exam findings, and any diagnostic results supporting the discharge/admit diagnosis. Special discussion: I discussed with the patient/guardian in detail that at this point there is no indication for admission to the hospital. It is understood, however, that if the symptoms persist or worsen the patient needs to return immediately for re-evaluation. 01/23 03:41 Order name: Basic Metabolic Panel; Complete Time: 06:56 01/23 06:56 Interpretation: Normal except: CL 109. 01/23 03:41 Order name: CBC with Diff; Complete Time: 06:56 01/23 06:56 Interpretation: Normal except: RBC 5.03; MCV 77.5; MCH 24.4; MCHC 31.5; RDW 15.9. 01/23 03:41 Order name: Creatinine for Radiology; Complete Time: 06:57 01/23 06:57 Interpretation: Within normal limits. 01/23 03:41 Order name: Hepatic Function; Complete Time: 06:56 01/23 06:57 Interpretation: Normal except: TP 8.7; GLOB 5.3; A/G 0.6. 01/23 03:41 Order name: Lipase; Complete Time: 06:57 01/23 06:57 Interpretation: Normal except: LIP 71. 01/23 03:41 Order name: Urine Microscopic Only; Complete Time: 06:57 01/23 03:41 Order name: Labs collected and sent; Complete Time: 04:13 01/23 05:26 Order name: Urine Dipstick--Ancillary (enter results) 01/23 05:26 Order name: Urine --Ancillary (enter results); Complete Time: 06:57 [facility] 01/23 06:57 Interpretation: Within normal limits. 01/23 03:41 Order name: Urine Dipstick-Ancillary (obtain specimen); Complete Time: 05:24 01/23 03:41 Order name: Urine Test (obtain specimen); Complete Time: 05:24 Administered Medications: 04:20 Drug: Zofran 4 mg Route: PO; jb4 04:25 Follow up: Response: No adverse reaction; Nausea is decreased jb4 04:27 Not Given (Other Intervention Used): GI Cocktail with - (Maalox Suspension 30 jb4 ml, Lidocaine Liquid 2 % 20 ml, Phenobarbital-Belladonna 10 ml) PO once 04:27 Drug: GI Cocktail without - (Maalox Suspension 30 ml, Lidocaine Liquid 2 % 15 jb4 ml) Route: PO; 04:45 Follow up: Response: No adverse reaction; Pain is decreased jb4 07:09 Drug: ProTONIX 40 mg Route: PO; 4 07:19 Follow up: Response: No adverse reaction bp Disposition: 01/23/19 06:55 Discharged to Home. Impression: Gastritis, unspecified. - Condition is Stable. - Discharge Instructions: Gastritis, Adult, [id number]. - Prescriptions for Protonix 40 mg Oral Tablet - take 1 tablet by ORAL route once daily; 30 tablet. - Medication Reconciliation Form, Thank You Letter, Antibiotic Education, Prescription Opioid Use form. - Follow up: Noemy Lopez MD; When: Upon discharge from the Emergency Department; Reason: If symptoms return, Recheck today's complaints, Continuance of care. - Problem is new. - Symptoms have improved. Signatures: Dispatcher [employer] EDAR Hong Mosher RN RN jb4 Srinivas Curran RN RN bp Vinh Gilmore MD MD tw4 Corrections: (The following items were deleted from the chart) 07:10 03:41 IV Saline Lock ordered. 4 jb 07:22 06:55 01/23/2019 06:55 Discharged to Home. Impression: Gastritis, unspecified. bp Condition is Stable. Forms are Medication Reconciliation Form, Thank You Letter, Antibiotic Education, Prescription Opioid Use. Follow up: Noemy Lopez; When: Upon discharge from the Emergency Department; Reason: If symptoms return, Recheck today's complaints, Continuance of care. Problem is new. Symptoms have improved. tw4
--- NOTE | 2019-01-23 06:56 | ER ---
Nurse's Notes [facility] Name: Dori Guardado Age: 43 yrs Sex: Female : 1975 Arrival Date: 01/23/2019 Time: 03:35 Bed 16 Private MD: Noemy Lopez Diagnosis: Gastritis, unspecified Presentation: 01/23 03:40 Presenting complaint: Patient states: I am having left upper abdominal pain that jb4 started 2 days ago. 03:40 Transition of care: patient was not received from another setting of care. Onset of jb4 symptoms was January 21, 2019. Risk Assessment: Do you want to hurt yourself or someone else? Patient reports no desire to harm self or others. Initial Sepsis Screen: Does the patient meet any 2 criteria? No. Patient's initial sepsis screen is negative. Does the patient have a suspected source of infection? No. Patient's initial sepsis screen is negative. Care prior to arrival: None. 03:40 Method Of Arrival: Ambulatory jb4 03:40 Acuity: KASH 3 jb4 Triage Assessment: 03:40 General: Appears in no apparent distress. uncomfortable, Behavior is calm, cooperative, jb4 appropriate for age. Pain: Complains of pain in left upper quadrant Pain does not radiate. Pain currently is 7 out of 10 on a pain scale. Quality of pain is described as stabbing. EENT: No signs and/or symptoms were reported regarding the EENT system. Neuro: Level of Consciousness is awake, alert, obeys commands, Oriented to person, place, time, situation. Cardiovascular: Patient's skin is warm and dry. Respiratory: Airway is patent Respiratory effort is even, unlabored, Respiratory pattern is regular, symmetrical. GI: Abdomen is non-distended, obese, Reports upper abdominal pain, nausea. : No signs and/or symptoms were reported regarding the genitourinary system. Derm: Skin is intact, Skin is dry, Skin is normal, Skin temperature is warm. Musculoskeletal: Circulation, motion, and sensation intact. 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 - Social history:: Smoking status: Patient/guardian denies using tobacco, Patient/guardian denies using alcohol. - Ebola Screening: : No symptoms or risks identified at this time. Screenin:40 Abuse screen: Denies threats or abuse. Nutritional screening: No deficits noted. jb4 Tuberculosis screening: No symptoms or risk factors identified. Fall Risk None identified. Assessment: 03:40 General: see triage assessment.. jb4 04:45 Reassessment: Patient appears in no apparent distress at this time. Patient and/or jb4 family updated on plan of care and expected duration. Pain level reassessed. Patient is alert, oriented x 3, equal unlabored respirations, skin warm/dry/pink. Patient states feeling better. 06:00 Reassessment: Patient appears in no apparent distress at this time. Patient and/or jb4 family updated on plan of care and expected duration. Pain level reassessed. Patient is alert, oriented x 3, equal unlabored respirations, skin warm/dry/pink. Patient denies pain at this time. Patient states feeling better. 07:00 Reassessment: RECD REPORT FROM TY DELGADILLO. 43YO BF P/W REFLUX. D/C IN PROCESS. bp 07:00 GI: Bowel sounds present X 4 quads. Abd is soft X 4 quads. bp 07:15 Reassessment: PT D/C HOME HOME AMBULATORY, DX WITH GASTRITIS. bp Vital Signs: 03:40 BP 126 / 82; Pulse 74; Resp 16; Temp 98.1; Pulse Ox 98% on R/A; Weight 122.47 kg (R); jb4 Height 5 ft. 3 in. (160.02 cm) (R); Pain 7/10; 04:45 BP 135 / 97; Pulse 73; Resp 16; Pulse Ox 95% on R/A; jb4 06:00 BP 145 / 97; Pulse 61; Resp 16; Pulse Ox 95% on R/A; Pain 0/10; jb4 07:15 BP 130 / 98; Pulse 64; Resp 16; Pulse Ox 97% ; bp 03:40 Body Mass Index 47.83 (122.47 kg, 160.02 cm) jb4 ED Course: 03:35 Patient arrived in ED. ds1 03:35 Noemy Lopez MD is Private Physician. ds1 03:40 Vinh Gilmore MD is Attending Physician. tw4 03:40 Arm band placed on right wrist. jb4 03:40 Patient has correct armband on for positive identification. Placed in gown. Bed in low jb4 position. Call light in reach. Side rails up X 1. Pulse ox on. NIBP on. 03:40 Initial lab(s) drawn, by me, sent to lab. Missed attempt(s): 22 gauge in left jb4 antecubital area. 03:42 Hong Mosher, RN is Primary Nurse. jb4 04:14 Triage completed. jb4 06:55 Noemy Lopez MD is Referral Physician. tw4 07:17 No provider procedures requiring assistance completed. IV discontinued, intact, bp bleeding controlled, No redness/swelling at site. Pressure dressing applied. Administered Medications: 04:20 Drug: Zofran 4 mg Route: PO; jb4 04:25 Follow up: Response: No adverse reaction; Nausea is decreased jb4 04:27 Not Given (Other Intervention Used): GI Cocktail with - (Maalox Suspension 30 jb4 ml, Lidocaine Liquid 2 % 20 ml, Phenobarbital-Belladonna 10 ml) PO once 04:27 Drug: GI Cocktail without - (Maalox Suspension 30 ml, Lidocaine Liquid 2 % 15 jb4 ml) Route: PO; 04:45 Follow up: Response: No adverse reaction; Pain is decreased jb4 07:09 Drug: ProTONIX 40 mg Route: PO; jb4 07:19 Follow up: Response: No adverse reaction bp Outcome: 06:55 Discharge ordered by . tw4 07:17 Discharged to home ambulatory. bp 07:17 Condition: stable 07:17 Discharge instructions given to patient, Instructed on discharge instructions, follow up and referral plans. medication usage, Demonstrated understanding of instructions, follow-up care, medications, Prescriptions given X 1. 07:22 Patient left the ED. bp Signatures: Kandi Dietz ds1 Hong Mosher RN RN jb4 Srinivas Curran RN RN bp Vinh Gilmore MD MD tw4
[2019-01-23] MEDS ORDERED: PANTOPRAZOLE 40MG TABLET PO ONE (07:17)
[2019-01-23 07:27] VITALS: TEMP 98.1
[2019-01-23 07:30] VITALS: BP 130/98; O2SAT 97
== END 2019-01-23 07:22 | disposition home or self-care (01) ==
LOC: ER 03:34
DX: K29.70 Gastritis, unspecified, without bleeding (principal); I10 Essential (primary) hypertension; I48.91 Unspecified atrial fibrillation; Z79.82 Long term (current) use of aspirin
CPT/HCPCS: 36415; 80048; 80076; 81003; 81015; 81025; 83690; 85025; 99284

== ENCOUNTER 2019-05-02 22:29 | Emergency (ER) | payer OTHER ==
--- OUTSIDE RECORDS SUMMARY | 2019-05-02 22:32 | XMS REPORT ---
[...] End Status Dosage System Date Date Paxil [facility] [id number] 20 MG Orally December 26, Active 1 tablet Once a day 2017 in the morning Macrobid [facility] [id number] 100 MG Orally Active 1 capsule every 12 hrs with food Metoprolol [facility] [id number] 25 MG Orally December 26, Active 1 tablet Tartrate Twice a day 2017 with food Results No Known Results Summary Purpose eClinicalWorks Submission
--- OUTSIDE RECORDS SUMMARY | 2019-05-02 22:32 | XMS REPORT ---
[...] End Status Dosage System Date Date Paxil [facility] [id number] 20 MG Orally December 26, Active 1 tablet Once a day 2017 in the morning Metoprolol [facility] [id number] 25 MG Orally December 26, Active 1 tablet Tartrate Twice a day 2017 with food Results No Known Results Summary Purpose eClinicalWorks Submission
[2019-05-02] MEDS ORDERED: DIAZEPAM 5 MG TABLET ONE (23:13)
[2019-05-02] MEDS ORDERED: PHENAZOPYRIDINE 100MG TAB PO ONE (23:13)
[2019-05-03 00:25] LABS: Urine Bacteria <20 /HPF (<20); Urine Culture Reflex Order NOT NEEDED; Urine RBC <5 /HPF (NONE SEEN)
--- NOTE | 2019-05-03 00:49 | ER ---
Nurse's Notes [facility] Name: Dori Guardado Age: 44 yrs Sex: Female : 1975 Arrival Date: 05/02/2019 Time: 22:34 Bed 6 Private MD: Diagnosis: Frequency of micturition Presentation: 05/02 23:03 Presenting complaint: Patient states: Pt complaining of pain and frequency with ea urination and lower back pain for the past 5 days. Pt states " it feels like glass nicking when I pee". Transition of care: patient was not received from another setting of care. Onset of symptoms was May 02, 2019. Risk Assessment: Do you want to hurt yourself or someone else? Patient reports no desire to harm self or others. Initial Sepsis Screen: Does the patient meet any 2 criteria? No. Patient's initial sepsis screen is negative. Does the patient have a suspected source of infection? Yes: Dysuria/Frequency/Urgency/UTI. Care prior to arrival: None. 23:03 Method Of Arrival: Ambulatory ea 23:03 Acuity: KASH 4 ea Triage Assessment: 23:10 General: Appears in no apparent distress. Behavior is calm, cooperative, appropriate ea for age. Pain: Complains of pain in back. 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 - Social history:: Smoking status: Patient/guardian denies using tobacco. - Ebola Screening: : No symptoms or risks identified at this time. Screenin:05 Abuse screen: Denies threats or abuse. Nutritional screening: No deficits noted. ea Tuberculosis screening: No symptoms or risk factors identified. Fall Risk None identified. Assessment: 23:10 General: Appears in no apparent distress. Behavior is calm, cooperative, appropriate ea for age. Pain: Denies pain. Neuro: Level of Consciousness is awake, alert, obeys commands, Oriented to person, place, time, situation. Cardiovascular: Patient's skin is warm and dry. Respiratory: Airway is patent Respiratory effort is even, unlabored, Respiratory pattern is regular, symmetrical. Derm: Skin is pink, warm \\T\\ dry. 05/03 00:25 Reassessment: Patient and/or family updated on plan of care and expected duration. Pain ea level reassessed. Patient is alert, oriented x 3, equal unlabored respirations, skin warm/dry/pink. 01:01 Reassessment: Patient appears in no apparent distress at this time. Patient and/or jd3 family updated on plan of care and expected duration. Pain level reassessed. Patient is alert, oriented x 3, equal unlabored respirations, skin warm/dry/pink. Patient states feeling better. 01:07 Reassessment: Patient appears in no apparent distress at this time. Patient and/or jd3 family updated on plan of care and expected duration. Pain level reassessed. Patient is alert, oriented x 3, equal unlabored respirations, skin warm/dry/pink. reported understanding of discharge instructions. even and steady gait upon discharge. Patient states feeling better. Vital Signs: 05/02 23:06 BP 149 / 98; Pulse 85; Resp 18; Temp 97.8; Pulse Ox 98% on R/A; Weight 120.2 kg; Height ea 5 ft. 3 in. (160.02 cm); Pain 7/10; 05/03 00:25 BP 131 / 89; Pulse 80; Resp 18; Pulse Ox 99% on R/A; ea 01:00 BP 131 / 89; Pulse 72; Resp 17 S; Pulse Ox 98% on R/A; jd3 05/02 23:06 Body Mass Index 46.94 (120.20 kg, 160.02 cm) ea ED Course: 05/02 22:34 Patient arrived in ED. ds1 23:01 [facility]du[facility]C [facility] snw 23:01 Vik Grace MD is Attending Physician. snw 23:03 Xiomy Tang RN is Primary Nurse. ea 23:05 Triage completed. ea 23:05 Arm band placed on right wrist. Patient placed in an exam room, on a stretcher, on ea pulse oximetry. 23:07 Patient has correct armband on for positive identification. Bed in low position. Call ea light in reach. Side rails up X 1. 05/03 01:01 No provider procedures requiring assistance completed. Patient did not have IV access jd3 during this emergency room visit. Administered Medications: 05/02 23:19 Drug: Valium 5 mg Route: PO; ea 05/03 00:17 Follow up: Response: No adverse reaction ea 05/02 23:19 Drug: Pyridium 200 mg Route: PO; ea 05/03 00:17 Follow up: Response: No adverse reaction ea 01:00 Drug: Macrobid 100 mg Route: PO; jd3 01:08 Follow up: Response: Medication administered at discharge. jd3 Outcome: 00:45 Discharge ordered by . cristina 01:07 Discharged to home ambulatory, with family. jd3 01:07 Condition: stable 01:07 Discharge instructions given to patient, family, Instructed on discharge instructions, follow up and referral plans. medication usage, Demonstrated understanding of instructions, follow-up care, medications, Prescriptions given X 2. 01:08 Patient left the ED. jd3 Signatures: Kim Verdugo, BOAT ENGINES INSTALLER-C BOAT ENGINES INSTALLER-Csnw Kandi Dietz ds1 Xoimy Tang, RN RN Jose R Greco RN RN jd3
--- NOTE | 2019-05-03 00:51 | EDPHYS ---
Physician Documentation [facility] Name: Dori Guardado Age: 44 yrs Sex: Female : 1975 Arrival Date: 05/02/2019 Time: 22:34 Bed 6 Private MD: ED Physician Vik Grace HPI: 05/02 23:13 This 44 yrs old Black Female presents to ER via Ambulatory with complaints of Pain With snw Urination, Urinary Frequency. 23:13 The patient presents with urinary symptoms, dysuria, frequency, urgency. Onset: The snw symptoms/episode began/occurred suddenly, 2 day(s) ago, and became persistent. Associated signs and symptoms: Pertinent positives: dysuria, Pertinent negatives: fever, nausea. Severity of symptoms: At their worst the symptoms were moderate. It is unknown whether or not the patient has had similar symptoms in the past. It is unknown whether or not the patient has recently seen a physician. WOUND SPECIALIST: 23:06 LMP 08/2018 ea Historical: - Allergies: 23:10 No Known Allergies; ea - Home Meds: 23:10 Aspirin Oral [Active]; Metoprolol Tartrate Oral [Active]; Omeprazole Oral [Active]; ea Pepcid Oral [Active]; - PMHx: 23:10 Hypertension; Crohn's; bowel obstruction; Atrial Fib; ea - PSHx: 23:10 partial hysterectomy; Appendectomy; Cholecystectomy; ea - Immunization history:: Adult Immunizations up to date. - Social history:: Smoking status: Patient/guardian denies using tobacco. - Ebola Screening: : No symptoms or risks identified at this time. ROS: 23:12 Constitutional: Negative for fever, chills, and weight loss, Eyes: Negative for injury, snw pain, redness, and discharge, ENT: Negative for injury, pain, and discharge, Neck: Negative for injury, pain, and swelling, Cardiovascular: Negative for chest pain, palpitations, and edema, Respiratory: Negative for shortness of breath, cough, wheezing, and pleuritic chest pain, Abdomen/GI: Negative for abdominal pain, nausea, vomiting, diarrhea, and constipation, MS/Extremity: Negative for injury and deformity, Skin: Negative for injury, rash, and discoloration, Neuro: Negative for headache, weakness, numbness, tingling, and seizure. 23:12 Back: Positive for flank pain, on the left. 23:12 : Positive for urinary symptoms, urinary frequency, small amounts, of the left mid back and left low back and left lower quadrant. Exam: 23:10 Constitutional: This is a well developed, well nourished patient who is awake, alert, snw and in no acute distress. Head/Face: Normocephalic, atraumatic. Eyes: Pupils equal round and reactive to light, extra-ocular motions intact. Lids and lashes normal. Conjunctiva and sclera are non-icteric and not injected. Cornea within normal limits. Periorbital areas with no swelling, redness, or edema. ENT: Nares patent. No nasal discharge, no septal abnormalities noted. Tympanic membranes are normal and external auditory canals are clear. Oropharynx with no redness, swelling, or masses, exudates, or evidence of obstruction, uvula midline. Mucous membranes moist. Neck: Trachea midline, no thyromegaly or masses palpated, and no cervical lymphadenopathy. Supple, full range of motion without nuchal rigidity, or vertebral point tenderness. No Meningismus. Chest/axilla: Normal chest wall appearance and motion. Nontender with no deformity. No lesions are appreciated. Cardiovascular: Regular rate and rhythm with a normal S1 and S2. No gallops, murmurs, or rubs. Normal PMI, no JVD. No pulse deficits. Respiratory: Lungs have equal breath sounds bilaterally, clear to auscultation and percussion. No rales, rhonchi or wheezes noted. No increased work of breathing, no retractions or nasal flaring. 23:10 Skin: Warm, dry with normal turgor. Normal color with no rashes, no lesions, and no evidence of cellulitis. MS/ Extremity: Pulses equal, no cyanosis. Neurovascular intact. Full, normal range of motion. Neuro: Awake and alert, GCS 15, oriented to person, place, time, and situation. Cranial nerves II-XII grossly intact. Motor strength 5/5 in all extremities. Sensory grossly intact. Cerebellar exam normal. Normal gait. Psych: Awake, alert, with orientation to person, place and time. Behavior, mood, and affect are within normal limits. 23:10 Abdomen/GI: Inspection: abdomen appears normal, Bowel sounds: normal, Palpation: mild abdominal tenderness, moderate abdominal tenderness, in the left lower quadrant. 23:10 Back: pain, that is mild, of the left low back and left mid back. Vital Signs: 23:06 BP 149 / 98; Pulse 85; Resp 18; Temp 97.8; Pulse Ox 98% on R/A; Weight 120.2 kg; Height ea 5 ft. 3 in. (160.02 cm); Pain 7/10; 05/03 00:25 BP 131 / 89; Pulse 80; Resp 18; Pulse Ox 99% on R/A; ea 01:00 BP 131 / 89; Pulse 72; Resp 17 S; Pulse Ox 98% on R/A; jd3 05/02 23:06 Body Mass Index 46.94 (120.20 kg, 160.02 cm) ea MDM: 05/02 23:01 Patient medically screened. snw 05/03 00:46 Data reviewed: vital signs, nurses notes. Data interpreted: Pulse oximetry: on room air snw is 99 %. Interpretation: normal. Counseling: I had a detailed discussion with the patient and/or guardian regarding: the historical points, exam findings, and any diagnostic results supporting the discharge/admit diagnosis, lab results, the need for outpatient follow up, to return to the emergency department if symptoms worsen or persist or if there are any questions or concerns that arise at home. Response to treatment: the patient's symptoms have markedly improved after treatment. Special discussion: Based on the patient's Hx, exam, and Dx evaluation, there is no indication for emergent surgery or inpatient Tx. It is understood by the patient/guardian that if the Sx's persist or worsen they need to return immediately for re-evaluation. I have referred the patient to see his PCP for further evaluation of high blood pressure. Based on the history and exam findings, there is no indication for further emergent testing or inpatient evaluation. I discussed with the patient/guardian the need to see the primary care provider for further evaluation of the symptoms. I discussed with the patient/guardian the need to see the urologist for further evaluation of the symptoms. 05/02 22:56 Order name: Urine Dipstick--Ancillary (enter results) cm6 05/02 23:02 Order name: Urine Microscopic Only; Complete Time: 00:29 snw Administered Medications: 05/02 23:19 Drug: Valium 5 mg Route: PO; ea 05/03 00:17 Follow up: Response: No adverse reaction ea 05/02 23:19 Drug: Pyridium 200 mg Route: PO; ea 05/03 00:17 Follow up: Response: No adverse reaction ea 01:00 Drug: Macrobid 100 mg Route: PO; jd3 01:08 Follow up: Response: Medication administered at discharge. jd3 Disposition: 06:59 Co-signature as Attending Physician, Vik Grace MD Available for consultation at ps1 all times . Disposition: 05/03/19 00:45 Discharged to Home. Impression: Frequency of micturition. - Condition is Stable. - Discharge Instructions: Urinary Frequency, Adult. - Prescriptions for Ditropan XL 5 mg Oral tablet extended release 24hr - take 1 tablet by ORAL route once daily; 10 tablet. Macrobid 100 mg Oral Capsule - take 1 capsule by ORAL route every 12 hours for 7 days; 14 capsule. - Medication Reconciliation Form, Thank You Letter, Antibiotic Education, Prescription Opioid Use form. - Follow up: Private Physician; When: 2 - 3 days; Reason: Recheck today's complaints, Continuance of care, Re-evaluation by your physician. Follow up: Emergency Department; When: As needed; Reason: Fever > 102 F, Worsening of condition. Signatures: Dispatcher [employer] EDSD Kim Verdugo, NICKIE-C FUNCTIONAL SUPPORT ANALYST-Csnw Xiomy Tang, RN Jose R Osorio ea, RN RN jd3 Singer, Phillip, MD MD ps1 Corrections: (The following items were deleted from the chart) 01:08 00:45 05/03/2019 00:45 Discharged to Home. Impression: Frequency of micturition. jd3 Condition is Stable. Forms are Medication Reconciliation Form, Thank You Letter, Antibiotic Education, Prescription Opioid Use. Follow up: Private Physician; When: 2 - 3 days; Reason: Recheck today's complaints, Continuance of care, Re-evaluation by your physician. Follow up: Emergency Department; When: As needed; Reason: Fever > 102 F, Worsening of condition. snw
[2019-05-03] MEDS ORDERED: NITROFURAN MACRO 100 MG CAP PO ONE (00:57)
[2019-05-03 01:15] LABS: Urine Blood NEGATIVE (NEG); Urine Glucose NEGATIVE (NEG); Urine Protein NEGATIVE (NEG)
[2019-05-03 01:21] VITALS: BP 131/89
[2019-05-03 01:22] VITALS: TEMP 97.8
[2019-05-03 01:23] VITALS: O2SAT 98
== END 2019-05-03 01:08 | disposition home or self-care (01) ==
LOC: ER 22:29
DX: R35.0 Frequency of micturition (principal); I10 Essential (primary) hypertension; I48.91 Unspecified atrial fibrillation; Z79.82 Long term (current) use of aspirin
CPT/HCPCS: 81003; 81015; 99283

== ENCOUNTER 2019-11-04 00:07 | Emergency (ER) | payer OTHER ==
--- OUTSIDE RECORDS SUMMARY | 2019-11-04 00:09 | XMS REPORT ---
:1975 Author Organization eClinicalWorks Care Team Providers Name Role Phone Lopez, Na Provider Role Unavailable Allergies No Known Allergies Problems Problem Type Condition Code Onset Dates Condition Status Problem Crohn's disease in remission K50.90 Active Problem High blood pressure I10 Active Problem Seasonal allergic rhinitis due to J30.1 Active pollen Assessment Urinary tract infection, site not N39.0 Active specified Assessment High blood pressure I10 Active Assessment Depression with anxiety F41.8 Active Problem Adult general medical exam Z00.00 Active Problem Hematuria, unspecified R31.9 Active Problem Urinary tract infection, site not N39.0 Active specified Problem Depression with anxiety F41.8 Active Problem Obesity, morbid, BMI 40.0-49.9 E66.01 Active Problem Chronic fatigue R53.82 Active Problem Multiple joint pain M25.50 Active Medications Medication Code Code Instructions Start End Status Dosage System Date Date Metoprolol [facility] 76961685368 25 MG Orally Active 1 tablet Tartrate Twice a day with food Macrobid [facility] 61387126599 100 MG Orally Aug 07, Active 1 capsule every 12 hrs 2018 with food Paxil [facility] 14053106097 20 MG Orally Active 1 tablet Once a day in the morning BusPIRone HCl ND 20783716732 5 MG Orally Jul 29, Active 1 tablet Three times a 2019 day Results No Known Results Summary Purpose [employer]Clinical[employer] Submission
--- OUTSIDE RECORDS SUMMARY | 2019-11-04 00:09 | XMS REPORT ---
:1975 Author Organization eClinicalWorks Care Team Providers Name Role Phone Ciara Medrano Provider Role Unavailable Allergies No Known Allergies Problems Problem Type Condition Code Onset Dates Condition Status Problem Crohn's disease in remission K50.90 Active Problem High blood pressure I10 Active Problem Seasonal allergic rhinitis due to J30.1 Active pollen Problem Adult general medical exam Z00.00 Active Problem Hematuria, unspecified R31.9 Active Problem Urinary tract infection, site not N39.0 Active specified Problem Depression with anxiety F41.8 Active Problem Obesity, morbid, BMI 40.0-49.9 E66.01 Active Problem Chronic fatigue R53.82 Active Problem Multiple joint pain M25.50 Active Medications No Known Medications Results No Known Results Summary Purpose [employer] Submission
--- OUTSIDE RECORDS SUMMARY | 2019-11-04 00:10 | XMS REPORT ---
:1975 Author Organization eClinicalWorks Care Team Providers Name Role Phone Lopez, Na Provider Role Unavailable Allergies, Adverse Reactions, Alerts Substance Reaction Event Type N.K.D.A. Info Not Available Non Drug Allergy Problems Problem Type Condition Code Onset Dates Condition Status Assessment BMI 50.0-59.9, adult Z68.43 Active Problem Obesity, morbid, BMI 40.0-49.9 E66.01 Active Assessment Obesity, morbid, BMI 50 or higher E66.01 Active Problem Depression with anxiety F41.8 Active Assessment Chronic fatigue R53.82 Active Problem Seasonal allergic rhinitis due to J30.1 Active pollen Problem Chronic fatigue R53.82 Active Problem High blood pressure I10 Active Problem Obesity, morbid, BMI 50 or higher E66.01 Active Problem BMI 50.0-59.9, adult Z68.43 Active Assessment Hyperglobulinemia R77.1 Active Assessment Stress due to illness of family Z63.79 Active member Problem Vitamin D deficiency E55.9 Active Assessment Acquired skin tag L91.8 Active Problem Adult general medical exam Z00.00 Active Problem Hematuria, unspecified R31.9 Active Problem Multiple joint pain M25.50 Active Problem Urinary tract infection, site not N39.0 Active specified Assessment Vitamin D deficiency E55.9 Active Assessment Depression with anxiety F41.8 Active Assessment Crohn's disease in remission K50.90 Active Assessment Multiple joint pain M25.50 Active Problem Crohn's disease in remission K50.90 Active Assessment High blood pressure I10 Active Assessment Cutaneous abscess of buttock L02.31 Active Medications Medication Code Code Instructions Start End Status Dosage System Date Date Humira [facility] [place] [address]-47 Active not defined Adipex-P [facility] [place] 86428821673 37.5 MG Orally Aug 12Aug Active 1 tablet Once a day 2018 Ergocalciferol [facility] [place] 85296299382 93608 UNIT Aug 12Oct Active 1 capsule Orally once a 2019 , week 2019 Bactrim DS [facility] [place] 68360743254 800-160 MG Aug 12Jul Active 1 tablet Orally Twice a 2018 Paxil [facility] [place] 84936823844 20 MG Orally Active 1 tablet Once a day in the morning BusPIRone HCl [facility] [place] 86207034808 5 MG Orally Active 1 tablet Three times a day Aspirin [facility] [place] [address]-25 Active not defined Metoprolol [facility] [place] 81546501267 25 MG Orally Active 1 tablet Tartrate Twice a day with food Results No Known Results Summary Purpose eClinicalWorks Submission
--- OUTSIDE RECORDS SUMMARY | 2019-11-04 00:10 | XMS REPORT ---
[...] Active Problem Multiple joint pain M25.50 Active Assessment Encounter for vitamin deficiency Z13.21 Active screening Assessment Chronic fatigue R53.82 Active Assessment Depression with anxiety F41.8 Active Assessment High blood pressure I10 Active Assessment Crohn's disease in remission K50.90 Active Assessment Adult general medical exam Z00.00 Active Assessment Multiple joint pain M25.50 Active Medications Medication Code Code Instructions Start End Status Dosage System Date Date Aspirin [facility] [address]-36 Active not defined Paxil [facility] 81728240244 20 MG Orally Active 1 tablet Once a day in the morning Metoprolol [facility] 03289008447 25 MG Orally Active 1 tablet Tartrate Twice a day with food Macrobid [facility] 65917383674 100 MG Orally Active 1 capsule every 12 hrs with food Humira [facility] [address]-55 Active not defined BusPIRone HCl [facility] 32323021989 5 MG Orally Jul 29, Active 1 tablet Three times a 2019 day Results Name Result Date Reference Range Unit Abnormality Flag CBC (H/H, RBC, INDICES, WBC, PLT) ----MPV 10.6 20190730 7.5-12.5 fL N ----HEMOGLOBIN 11.7 20190730 11.7-15.5 g/dL N ----HEMATOCRIT 38.5 55457712 35.0-45.0 % N ----MCV 79.5 00263025 80.0-100.0 fL L ----MCH 24.2 [id number] 27.0-33.0 pg L ----MCHC 30.4 20190730 32.0-36.0 g/dL L ----RDW 14.9 05524856 11.0-15.0 % N ----PLATELET COUNT 399 20190730 140-400 Thousand/u N L ----WHITE BLOOD 6.1 00588111 3.8-10.8 Thousand/u N CELL COUNT L ----RED BLOOD CELL 4.84 24873906 3.80-5.10 Million/uL N COUNT JOSÉ IFA SCREEN W/REFL TO TITER AND PATTERN, IFA ----JOSÉ SCREEN, IFA NEGATIVE 20190730 NEGATIVE N COMPREHENSIVE METABOLIC PANEL(CMP) ----ALBUMIN/GLOBULI 0.9 79272069 1.0-2.5 (calc) L N RATIO ----GLOBULIN 4.2 59155739 1.9-3.7 g/dL H (calc) ----ALKALINE 67 46150642 33-115 U/L N PHOSPHATASE ----BILIRUBIN, 0.4 20190730 0.2-1.2 mg/dL N TOTAL ----CHLORIDE 107 20190730 98-110 mmol/L N ----ALT 24 20190730 6-29 U/L N ----POTASSIUM 4.2 68013784 3.5-5.3 mmol/L N ----AST 19 20190730 10-30 U/L N ----SODIUM 140 06081975 135-146 mmol/L N ----BUN/CREATININE NOT APPLICABLE 92061738 6-22 (calc) RATIO ----eGFR 125 20190730 > OR=60 mL/min/1.7 N KAZAKH 3m2 ----CALCIUM 9.3 37985399 8.6-10.2 mg/dL N ----CARBON DIOXIDE 22 20190730 20-32 mmol/L N ----ALBUMIN 3.7 55912587 3.6-5.1 g/dL N ----PROTEIN, TOTAL 7.9 20190730 6.1-8.1 g/dL N ----GLUCOSE 89 41435610 65-99 mg/dL N ----UREA NITROGEN 9 20190730 7-25 mg/dL N (BUN) ----CREATININE 0.65 20190730 0.50-1.10 mg/dL N ----eGFR NON-AFR. 108 20190730 > OR=60 mL/min/1.7 N KAZAKH 3m2 LIPID PANEL WITH REFLEX TO DIRECT LDL ----NON HDL 110 21400467 <130 mg/dL N CHOLESTEROL (calc) ----LDL-CHOLESTEROL 90 39760550 mg/dL N (calc) ----CHOL/HDLC RATIO 3.4 34755710 <5.0 (calc) N ----HDL CHOLESTEROL 46 02307452 >50 mg/dL L ----TRIGLYCERIDES 108 64415307 <150 mg/dL N ----CHOLESTEROL, 156 46872936 <200 mg/dL N TOTAL RHEUMATOID FACTOR ----RHEUMATOID <14 56262636 <14 IU/mL N FACTOR VITAMIN D,25-OH,TOTAL,IA ----VITAMIN 11 87070352 30-100 ng/mL L D,25-OH,TOTAL,IA URINALYSIS, COMPLETE W/REFLEX TO CULTURE ----OCCULT BLOOD NEGATIVE 20190730 NEGATIVE N ----KETONES NEGATIVE 20190730 NEGATIVE N ----BILIRUBIN NEGATIVE 20190730 NEGATIVE N ----GLUCOSE NEGATIVE 20190730 NEGATIVE N ----PH 5.5 20190730 5.0-8.0 N ----SPECIFIC 1.022 10227292 1.001-1.035 N GRAVITY ----APPEARANCE CLEAR 20190730 CLEAR N ----COLOR YELLOW 20190730 YELLOW N ----SQUAMOUS 0-5 76021812 < OR=5 /HPF EPITHELIAL CELLS ----BACTERIA FEW 26423110 NONE SEEN /HPF A ----HYALINE CAST NONE SEEN 20190730 NONE SEEN /LPF N ----REFLEXIVE URINE NO CULTURE 20190730 CULTURE INDICATED ----NITRITE NEGATIVE 39970861 NEGATIVE N ----LEUKOCYTE NEGATIVE 20190730 NEGATIVE N ESTERASE ----WBC 0-5 56845169 < OR=5 /HPF N ----RBC NONE SEEN 43055587 < OR=2 /HPF N ----PROTEIN NEGATIVE 20190730 NEGATIVE N TSH W/REFLEX TO FT4 ----TSH W/REFLEX TO 1.71 48570457 mIU/L N FT4 Summary Purpose eClinicalWorks Submission
--- OUTSIDE RECORDS SUMMARY | 2019-11-04 00:10 | XMS REPORT ---
:1975 Author Organization eClinicalWorks Care Team Providers Name Role Phone Lopez, Na Provider Role Unavailable Allergies No Known Allergies Problems Problem Type Condition Code Onset Dates Condition Status Problem Seasonal allergic rhinitis due to J30.1 Active pollen Problem Chronic fatigue R53.82 Active Problem High blood pressure I10 Active Problem Crohn's disease in remission K50.90 Active Problem Obesity, morbid, BMI 40.0-49.9 E66.01 Active Problem Depression with anxiety F41.8 Active Problem Obesity, morbid, BMI 50 or higher E66.01 Active Problem BMI 50.0-59.9, adult Z68.43 Active Problem Vitamin D deficiency E55.9 Active Problem Adult general medical exam Z00.00 Active Problem Hematuria, unspecified R31.9 Active Problem Multiple joint pain M25.50 Active Problem Urinary tract infection, site not N39.0 Active specified Medications No Known Medications Results No Known Results Summary Purpose [employer] Submission
--- OUTSIDE RECORDS SUMMARY | 2019-11-04 00:11 | XMS REPORT ---
:1975 Author Organization eClinicalWorks Care Team Providers Name Role Phone Lopez, Na Provider Role Unavailable Allergies No Known Allergies Problems Problem Type Condition Code Onset Dates Condition Status Assessment BMI 50.0-59.9, adult Z68.43 Active Assessment Obesity, morbid, BMI 50 or higher E66.01 Active Problem Depression with anxiety F41.8 Active Assessment Chronic fatigue R53.82 Active Problem Seasonal allergic rhinitis due to J30.1 Active pollen Assessment Screening for malignant neoplasm Z12.39 Active of breast Problem High blood pressure I10 Active Problem Hematuria, unspecified R31.9 Active Problem Chronic fatigue R53.82 Active Problem Obesity, morbid, BMI 50 or higher E66.01 Active Problem BMI 50.0-59.9, adult Z68.43 Active Assessment Multiple joint pain M25.50 Active Assessment Crohn's disease in remission K50.90 Active Problem Grieving F43.21 Active Assessment Hyperglobulinemia R77.1 Active Problem Urinary tract infection, site not N39.0 Active specified Problem Adult general medical exam Z00.00 Active Problem Vitamin D deficiency E55.9 Active Problem Multiple joint pain M25.50 Active Assessment Grieving F43.21 Active Assessment Depression with anxiety F41.8 Active Assessment Motion sickness, initial encounter T75.3XXA Active Assessment Vitamin D deficiency E55.9 Active Problem Crohn's disease in remission K50.90 Active Problem Obesity, morbid, BMI 40.0-49.9 E66.01 Active Assessment High blood pressure I10 Active Medications Medication Code Code Instructions Start End Status Dosage System Date Date Phentermine HCl [facility] 07898392557 37.5 MG Orally Sep 16Sep Active 1 tablet Once a day 2018 Scopolamine ND 14774909362 1 MG/3DAYS Sep 16Oct Active 1 patch to Transdermal 2018, as every 3 days 2019 needed 4 hours before for motion sickness Paxil ND 93022531068 20 MG Orally Active 1 tablet Once a day in the morning BusPIRone HCl [facility] 57587832686 5 MG Orally Active 1 tablet Three times a day Aspirin [facility] 40444246771 81 MG Orally Active not defined Metoprolol [facility] 52312266979 25 MG Orally Active 1 tablet Tartrate Twice a day with food Humira [facility] [address]-19 Active not defined Ergocalciferol [facility] 73231345818 90834 UNIT Active 1 capsule Orally once a week Results No Known Results Summary Purpose eClinicalWorks Submission
[2019-11-04] MEDS ORDERED: ONDANSETRON 4 MG/2 ML VIAL ONE (01:19)
[2019-11-04] MEDS ORDERED: FAMOTIDINE 20 MG/2 ML VIAL IV ONE (01:19)
[2019-11-04 02:32] LABS: Urine Blood NEGATIVE (NEG); Urine Glucose NEGATIVE (NEG); Urine Protein NEGATIVE (NEG); Urine Specific Gravity >1.030 (1.005-1.030); Urine pH 5.5 (5.0-7.0)
[2019-11-04 02:39] LABS: Absolute Lymphocytes (CBC) 2.9 K/uL (0.7-4.9); Basophils % 1.5 % (0-1.3); Hematocrit 33.3 % (36.0-45.0); Lymphocytes % 35.7 % (15.3-44.8); MPV 8.7 fL (7.6-11.3); RBC Red Blood Cell Count 4.34 M/uL (3.86-4.86)
[2019-11-04 03:02] LABS: ALT/SGPT 16 U/L (12-78); AST/SGOT 15 U/L (15-37); Albumin 3.1 g/dL (3.4-5.0); Alkaline Phosphatase 68 U/L (45-117); BUN Blood Urea Nitrogen 9 mg/dL (7-18); Bicarbonate 25 mmol/L (21-32); Bilirubin Direct < 0.1 mg/dL (0-0.2); Bilirubin Total 0.3 mg/dL (0.2-1.0); Glucose Level 102 mg/dL (74-106); Lipase 54 U/L (73-393); Potassium 3.8 mmol/L (3.5-5.1); Sodium Level 141 mmol/L (136-145)
[2019-11-04 03:32] LABS: Blood Morphology Comment NOTED (NOT SEEN); Ovalocytes 1+; Platelet Estimate ADEQ
--- NOTE | 2019-11-04 05:28 | EDPHYS ---
Physician Documentation [facility] Name: Dori Guardado Age: 44 yrs Sex: Female : 1975 Arrival Date: 11/04/2019 Time: 00:10 Bed 19 Private MD: ED Physician Vinh Gilmore HPI: 11/04 00:49 This 44 yrs old Black Female presents to ER via Ambulatory with complaints of Nausea, cp Abdominal Pain. 00:49 The patient presents to the emergency department with nausea, that is moderate, cp abdominal pain, of the left upper quadrant. Onset: The symptoms/episode began/occurred 5 day(s) ago. Possible causes: flare up of bowel problem, Crohn's disease. Associated signs and symptoms: Pertinent negatives: anorexia, constipation, diarrhea, dysuria, fever, GI bleeding, vomiting. Severity of symptoms: in the emergency department the symptoms are unchanged despite home interventions. 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 - Coronavirus screen:: The patient has NOT traveled to [place], [place], or [place] in the past 14 days. - Social history:: Smoking status: Patient denies any tobacco usage or history of. - Ebola Screening: : No symptoms or risks identified at this time. ROS: 00:55 Constitutional: Negative for body aches, chills, fever, poor PO intake. cp 00:55 Eyes: Negative for injury, pain, redness, and discharge. cp 00:55 ENT: Negative for drainage from ear(s), ear pain, sore throat, difficulty swallowing, difficulty handling secretions. 00:55 Cardiovascular: Negative for chest pain, palpitations. 00:55 Respiratory: Negative for cough, shortness of breath, wheezing. 00:55 Abdomen/GI: Positive for abdominal pain, nausea, Negative for vomiting, diarrhea, constipation, anorexia, black/tarry stool, rectal bleeding. 00:55 Back: Negative for radiated pain. 00:55 : Negative for urinary symptoms. 00:55 Neuro: Negative for altered mental status, headache, weakness. 00:55 All other systems are negative. Exam: 01:00 Constitutional: The patient appears in no acute distress, alert, awake, non-toxic, well cp developed, well nourished, obese. 01:00 Head/Face: Normocephalic, atraumatic. cp 01:00 Eyes: Periorbital structures: appear normal, Conjunctiva: normal, no exudate, no injection, Sclera: no appreciated abnormality, Lids and lashes: appear normal, bilaterally. 01:00 ENT: External ear(s): are unremarkable, Nose: is normal, Mouth: Lips: moist, Oral mucosa: moist, Posterior pharynx: Airway: no evidence of obstruction, patent. 01:00 Chest/axilla: Inspection: normal. 01:00 Cardiovascular: Rate: normal, Rhythm: regular. 01:00 Respiratory: the patient does not display signs of respiratory distress, Respirations: normal, no use of accessory muscles, no retractions, labored breathing, is not present, Breath sounds: are clear throughout, no decreased breath sounds. 01:00 Abdomen/GI: Inspection: scar(s), are noted in the mid line lower abdomen, Bowel sounds: active, all quadrants, Palpation: soft, in all quadrants, mild abdominal tenderness, in the left upper quadrant, rebound tenderness, is not appreciated, voluntary guarding, is not appreciated, involuntary guarding, is not appreciated. 01:00 Back: pain, is absent, ROM is normal. 01:00 Skin: no rash present. 01:00 Neuro: Orientation: to person, place \T\ time. Mentation: is normal. Vital Signs: 00:50 BP 143 / 76; Pulse 70; Resp 18; Temp 97.2; Pulse Ox 98% ; Weight 121.56 kg; Height 5 ea ft. 3 in. (160.02 cm); Pain 7/10; 01:00 BP 143 / 83; Pulse 71; Resp 18; Pulse Ox 98% on R/A; ea 03:00 BP 136 / 94; Pulse 72; Resp 18; Pulse Ox 97% ; ea 04:30 BP 126 / 79; Pulse 64; Resp 18; Pulse Ox 98% ; ea 05:30 BP 131 / 91; Pulse 78; Resp 18; Pulse Ox 96% on R/A; ea 00:50 Body Mass Index 47.47 (121.56 kg, 160.02 cm) ea MDM: 00:16 Patient medically screened. cp 00:55 Differential diagnosis: Nonspecific abd pain, gastritis, pancreatitis, diverticulitis, cp viral gastroenteritis, gastroenteritis. 02:45 Transition of care: After a detail discussion of the patient's case, care is cp transferred to Vinh Gilmore MD. 11/04 00:40 Order name: Basic Metabolic Panel cp 11/04 00:40 Order name: CBC with Diff cp 11/04 00:40 Order name: Creatinine for Radiology cp 11/04 00:40 Order name: Hepatic Function cp 11/04 00:40 Order name: Lipase cp 11/04 02:25 Order name: Urine Dipstick--Ancillary (enter results) ms 11/04 00:40 Order name: IV Saline Lock; Complete Time: 01:26 cp 11/04 00:40 Order name: Labs collected and sent; Complete Time: 01:26 cp 11/04 00:40 Order name: Urine Dipstick-Ancillary (obtain specimen); Complete Time: 02:31 cp 11/04 00:51 Order name: CT Abd/Pelvis - IV Contrast Only cp 11/04 02:25 Order name: Urine --Ancillary (enter results) ms 11/04 03:04 Order name: Manual Differential EDMS 11/04 00:40 Order name: Urine Test (obtain specimen); Complete Time: 02:31 cp Administered Medications: 01:25 Drug: Pepcid 20 mg Route: IVP; Site: right forearm; ea 02:13 Follow up: Response: No adverse reaction ea 01:26 Drug: Zofran 4 mg Route: IVP; Site: right forearm; ea 02:13 Follow up: Response: No adverse reaction ea Disposition: 07:15 Co-signature as Attending Physician, Vinh Gilmore MD I agree with the assessment and 4 plan of care. Disposition: 11/04/19 05:27 Discharged to Home. Impression: Abdominal tenderness. - Condition is Stable. - Discharge Instructions: Abdominal Pain, Adult. - Prescriptions for Bentyl 20 mg Oral Tablet - take 1 tablet by ORAL route every 6 hours As needed; 20 tablet. - Work release form, Medication Reconciliation Form, Thank You Letter, Antibiotic Education, Prescription Opioid Use form. - Follow up: Private Physician; When: Upon discharge from the Emergency Department; Reason: If symptoms return, Recheck today's complaints, Continuance of care. - Problem is new. - Symptoms have improved. Signatures: Dispatcher [employer] EDMS Hardy Mahoney PA PA cp Antunez, Elena, RN RN ea Wadley, Terrence, MD MD tw4 Corrections: (The following items were deleted from the chart) 05:48 05:27 11/04/2019 05:27 Discharged to Home. Impression: Abdominal tenderness. Condition ea is Stable. Forms are Medication Reconciliation Form, Thank You Letter, Antibiotic Education, Prescription Opioid Use. Follow up: Private Physician; When: Upon discharge from the Emergency Department; Reason: If symptoms return, Recheck today's complaints, Continuance of care. Problem is new. Symptoms have improved. tw4
--- NOTE | 2019-11-04 05:28 | ER ---
Nurse's Notes [facility] Name: Dori Guardado Age: 44 yrs Sex: Female : 1975 Arrival Date: 11/04/2019 Time: 00:10 Bed 19 Private MD: Diagnosis: Abdominal tenderness Presentation: 11/04 00:46 Presenting complaint: Patient states: Reports left upper quadrant abd pain that started ea a few days ago, pt reports the pain starts after she its than subsides after an hour or so. Pt reports reflux after eating. States "Feels like my chron's is going to start a flare up". Transition of care: patient was not received from another setting of care. Onset of symptoms was November 04, 2019. Risk Assessment: Do you want to hurt yourself or someone else? Patient reports no desire to harm self or others. Initial Sepsis Screen: Does the patient meet any 2 criteria? No. Patient's initial sepsis screen is negative. Does the patient have a suspected source of infection? No. Patient's initial sepsis screen is negative. Care prior to arrival: None. 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 - Coronavirus screen:: The patient has NOT traveled to [place], [place], or [place] in the past 14 days. - Social history:: Smoking status: Patient denies any tobacco usage or history of. - Ebola Screening: : No symptoms or risks identified at this time. Screenin:48 Abuse screen: Denies threats or abuse. Nutritional screening: No deficits noted. ea Tuberculosis screening: No symptoms or risk factors identified. Fall Risk None identified. Assessment: 01:30 General: Appears in no apparent distress. Behavior is calm, cooperative, appropriate ea for age. Pain: Complains of pain in left upper quadrant Pain does not radiate. Neuro: Level of Consciousness is awake, alert, obeys commands, Oriented to person, place, time, situation. Cardiovascular: Patient's skin is warm and dry. Respiratory: Airway is patent Respiratory effort is even, unlabored, Respiratory pattern is regular, symmetrical. GI: Abdomen is non-distended. Derm: Skin is pink, warm \\T\\ dry. 02:55 Reassessment: Patient and/or family updated on plan of care and expected duration. Pain ea level reassessed. Patient is alert, oriented x 3, equal unlabored respirations, skin warm/dry/pink. 03:35 Reassessment: Patient and/or family updated on plan of care and expected duration. Pain ea level reassessed. Patient is alert, oriented x 3, equal unlabored respirations, skin warm/dry/pink. 04:10 Reassessment: Patient and/or family updated on plan of care and expected duration. Pain ea level reassessed. Patient is alert, oriented x 3, equal unlabored respirations, skin warm/dry/pink. 05:12 Reassessment: Patient and/or family updated on plan of care and expected duration. Pain ea level reassessed. Patient is alert, oriented x 3, equal unlabored respirations, skin warm/dry/pink. 05:46 Reassessment: Patient and/or family updated on plan of care and expected duration. Pain ea level reassessed. Patient is alert, oriented x 3, equal unlabored respirations, skin warm/dry/pink. Discharge instruction given to patient, verbalized the understanding of instruction, pt left ED accompanied by , pt tolerating well. Vital Signs: 00:50 BP 143 / 76; Pulse 70; Resp 18; Temp 97.2; Pulse Ox 98% ; Weight 121.56 kg; Height 5 ea ft. 3 in. (160.02 cm); Pain 7/10; 01:00 BP 143 / 83; Pulse 71; Resp 18; Pulse Ox 98% on R/A; ea 03:00 BP 136 / 94; Pulse 72; Resp 18; Pulse Ox 97% ; ea 04:30 BP 126 / 79; Pulse 64; Resp 18; Pulse Ox 98% ; ea 05:30 BP 131 / 91; Pulse 78; Resp 18; Pulse Ox 96% on R/A; ea 00:50 Body Mass Index 47.47 (121.56 kg, 160.02 cm) ea ED Course: 00:10 Patient arrived in ED. cf2 00:13 Hardy Mahoney PA is PHCP. cp 00:13 Vinh Gilmore MD is Attending Physician. cp 00:46 Xiomy Tang RN is Primary Nurse. ea 00:48 Triage completed. ea 00:50 Patient has correct armband on for positive identification. Placed in gown. Bed in low ea position. Call light in reach. 00:51 Arm band placed on right wrist. Patient placed in an exam room, on a stretcher, on ea pulse oximetry. 01:00 Missed attempt(s): 22 gauge in right antecubital area. Bleeding controlled, band aid ea applied, catheter tip intact. 01:10 Inserted saline lock: 24 gauge in right forearm, using aseptic technique. ea 01:41 Radiology exam delayed due to lab results not completed at this time. (BUN/Creatinine) kw1 test not completed at this time. 01:55 Radiology exam delayed due to lab results not completed at this time. test kw1 not completed at this time. 02:14 Radiology exam delayed due to lab results not completed at this time. test kw1 not completed at this time. 02:55 Radiology exam delayed due to lab results not completed at this time. test kw1 not completed at this time. 03:18 Radiology exam delayed due to IV insertion attempt and/or patient not having kw1 appropriate IV at this time. 04:17 Radiology exam delayed due to IV insertion attempt and/or patient not having kw1 appropriate IV at this time. 04:20 Missed attempt(s): 20 gauge in right antecubital area. Bleeding controlled, band aid bb applied, catheter tip intact. 04:20 Inserted saline lock: 18 gauge in left antecubital area, using aseptic technique. bb 05:43 No provider procedures requiring assistance completed. IV discontinued, intact, ea bleeding controlled, No redness/swelling at site. Pressure dressing applied. Administered Medications: 01:25 Drug: Pepcid 20 mg Route: IVP; Site: right forearm; ea 02:13 Follow up: Response: No adverse reaction ea 01:26 Drug: Zofran 4 mg Route: IVP; Site: right forearm; ea 02:13 Follow up: Response: No adverse reaction ea Outcome: 05:27 Discharge ordered by . tw4 05:47 Discharged to home ambulatory, with significant other. wild 05:47 Condition: stable 05:47 Discharge instructions given to patient, Instructed on discharge instructions, follow up and referral plans. medication usage, Demonstrated understanding of instructions, follow-up care, medications, Prescriptions given X 1. 05:48 Patient left the ED. ea Signatures: Precious Felton, RN RN Hardy Smith PA PA cp Antunez, Elena, RN RN ea Wilhelm, Kimberly kw1 Vinh Gilmore MD MD tw4 Moshe Hines 2
[2019-11-04 05:56] VITALS: TEMP 97.2
[2019-11-04 06:01] VITALS: BP 131/91; O2SAT 96
--- NOTE | 2019-11-04 09:55 | RAD REPORT ---
EXAM DESCRIPTION: CT - Abdomen Pelvis W Contrast - 11/04/2019 6:43 am CLINICAL HISTORY: Abdominal pain. COMPARISON: None. TECHNIQUE: Axial CT imaging of the abdomen and pelvis performed with intravenous contrast. Reformatt ed coronal and sagittal images reviewed. A dose reduction technique was utilized with automated exposure control according to patient size. FINDINGS: Clear lung bases. Heart is normal in size. Liver is enlarged to greater than 19 cm. No mass or biliary dilatation. Gallbladder has been resected . Normal spleen, pancreas, adrenal glands, and left kidney. There may be a tiny cyst anterior right k idney. Right kidney is otherwise normal. There is no hydronephrosis or stone. Small hiatal hernia. Normal included stomach. There has been partial right hemicolectomy with enteroc olic anastomotic sutures present. Normal colon. There is no ascites or free air. No mesenteric adenop athy. Normal bladder. Normal uterus. No pelvic free fluid. Normal lumbar lordosis. No subluxation. Intact b ida pelvis. Normal hips. IMPRESSION: 1. Hepatomegaly. 2. Small hiatal hernia. 3. Status post partial right hemicolectomy with enterocolic anastomotic sutures. No complicating find ing.. 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 The interpreting radiologist is f ully responsible for the content of the report.
== END 2019-11-04 05:48 | disposition home or self-care (01) ==
LOC: ER 00:07
DX: R10.812 Left upper quadrant abdominal tenderness (principal); I10 Essential (primary) hypertension; I48.91 Unspecified atrial fibrillation; Z79.82 Long term (current) use of aspirin
CPT/HCPCS: 85025; 80048; 36415; 81025; 80076; 81003; 83690; 74177; 96375; 96374; 99284; Q9967; J2405

== ENCOUNTER 2020-02-14 04:24 | Observation (INO) | payer SELFPAY ==
--- OUTSIDE RECORDS SUMMARY | 2020-02-14 04:27 | XMS REPORT ---
:1975 Author Organization [facility] t Address [address] [place] [address] [address] [place] [address] Care Team Providers Name Role Phone Unavailable Unavailable Unavailable Problems Condition Condition Condition Status Onset Resolution Last Treating Co mments Source Name Details Category Date Date Treatment Clinician Date Obesity, Obesity, Problem [facility] morbid, [facility] - BMI 50 or BMI 50 or Delvis dayanna higher higher l [facility]ics Depression Depression Problem Active [facility] with with [facility] - anxiety anxiety [facility] l [facility] Seasonal Seasonal Problem Active [facility] allergic allergic [facility] - rhinitis rhinitis Memori a due to due to l pollen [facility] High blood High blood Problem Active [facility] pressure pressure [facility] Crohn's Crohn's Problem Active [facility] disease in disease in [place] [facility] - remission remission Delvis dayanna l [facility] Urinary Urinary Problem Active [facility] tract tract [facility] - infection, infection, Me moria site not site not l specified specified Outp ati ent Clinics Adult Adult Problem Active [facility] general general [facility] - medical medical Memoria exam exam l [facility] Multiple Multiple Problem Active [facility] joint pain joint pain [place] [facility] - Memoria l [facility] Hematuria, Hematuria, Problem Active [facility] unspecifie unspecifie [place] [facility] - d d Memoria [facility] Clinics Chronic Chronic Problem Active [facility] fatigue fatigue [facility] BMI BMI Problem Active [facility] 50.0-59.9, 50.0-59.9, [place] [facility] - adult adult Memoria [facility] ent Clin[facility] Vitamin D Vitamin D Problem Active [facility] deficiency deficiency [place] [facility] - Memoria l [facility] Grieving Grieving Problem Active [facility] Allergies, Adverse Reactions, Alerts This patient has no known allergies or adverse reactions. Medications Ordered Filled Start Stop Current Ordering Indication Dosage Frequency Signature Comments Components Source Medication Medication Date Date Medication? Clinician (SIG) Name Name Scopolamine Scopolamine 2018-09 2020- No Na Lopez [address] [facility] 11-17 skin as [facility] - 00:00: 00:00 needed 4 Memoria 00 :00 hours l before for Outpati motion ent sickness Clinics Phentermine Phentermine 2018-09- No Na Lopez [address] [facility] HCl HCl 11-17 [facility] - 00:00: 00:00 [facility] 00 :00 l Outpati ent Clinics Ergocalcife Ergocalcife 2018-09- No Na Lopez [address] [facility] rol rol 10-12 [facility] - 00:00: 00:00 [facility] 00 :00 l Outpati ent Clinics BusPIRone BusPIRone 2018-09 Yes Na Lopez [address] [facility] HCl HCl 1-04 [facility] - 00:[facility]: [facility] 00 l Outpati ent Clinics Paxil Paxil Yes Na Lopez [address] [facility] 4-03 in the [facility] - 00:00: morning [facility] 00 l Outpati ent Clinics Metoprolol Metoprolol Yes Na Lopez [address] [facility] Tartrate Tartrate 4-03 with food [facility] - 00:00: [facility]oria 00 l Outpati ent Clinics Humira Humira Yes Na Lopez not [facility] defined [facility] Aspirin Aspirin Yes Na Lopez not [facility] defined [facility] Procedures This patient has no known procedures. Encounters Start End Encounter Admission Attending Care Care Encounter Source Date/Time Date/Time Type Type Clinicians Facility Department ID 2019-12-12 2019-12-12 Outpatient Dolores Cavazos [id number] [facility] 15:41:00 15:41:00 t [facility] Medicine Outpati ent Clinics 2019-09-16 2019-09-16 Outpatient Dolores Cavazos [id number] [facility] 14:40:00 14:40:00 [facility]X [facility] Family Medicine l Medicine Outpati ent Clinics 2019-08-15 2019-08-15 Outpatient Dolores Cavazos [id number] [facility] 09:27:00 09:27:[address] [facility] Medicine Outpati ent Clinics 2019-08-12 2019-08-12 [facility] [id number] [facility] 09:00:00 09:00:[address] [facility] Medicine Outpati ent Clinics 2019-07-31 2019-07-31 [facility] [id number] [facility] 11:46:00 11:46:[address] [facility] Medicine Outpati ent Clinics 2019-07-29 2019-07-29 [facility] [id number] [facility] 09:40:00 09:40:[address] [facility] Medicine Outpati ent Clinics 2019-06-02 2019-06-02 [facility] [id number] [facility] 09:38:00 09:38:00 t [facility] l Outpati ent Clinics 2019-05-31 2019-05-31 [facility] [id number] [facility] 11:30:00 11:30:00 [facility] Outpati ent Clinics 2018-01-19 2018-01-19 [facility] [id number] [facility] 08:11:00 08:11:[address] [facility] Medicine Outpati ent Clinics 2018-01-18 2018-01-18 [facility] [id number] [facility] 10:15:00 10:15:[address] [facility] Medicine Outpati ent Clinics 2017-12-26 2017-12-26 [facility] [id number] [facility] 09:30:00 09:30:[address] [facility] Medicine Outpati ent Clinics Results This patient has no known results.
--- OUTSIDE RECORDS SUMMARY | 2020-02-14 04:27 | XMS REPORT ---
:1975 Author Organization [employer] Care Team Providers Name Role Phone Lopez, Na Provider Role Unavailable Allergies No Known Allergies Problems Problem Type Condition Code Onset Dates Condition Statu s Problem High blood pressure I10 Active Problem Hematuria, unspecified R31.9 Activ e Problem Chronic fatigue R53.82 Active Problem Crohn's disease in remission K50.90 Active Problem Obesity, morbid, BMI 40.0-49.9 E66.01 Active Problem Depression with anxiety F41.8 Acti ve Problem Seasonal allergic rhinitis due to J30.1 Active pollen Problem Obesity, morbid, BMI 50 or higher E66.01 Active Problem BMI 50.0-59.9, adult Z68.43 Active Problem Grieving F43.21 Active Problem Urinary tract infection, site not N39.0 Active specified Problem Adult general medical exam Z00.00 A ctive Problem Vitamin D deficiency E55.9 Active Problem Multiple joint pain M25.50 Active Medications No Known Medications Results No Known Results Summary Purpose [employer] Submission
[2020-02-14 05:09] LABS: Urine Blood NEGATIVE (NEG); Urine Glucose NEGATIVE (NEG); Urine Protein NEGATIVE (NEG); Urine Specific Gravity >1.030 (1.005-1.030)
[2020-02-14 05:11] LABS: Absolute Lymphocytes (CBC) 3.9 K/uL (0.7-4.9); Basophils % 1.3 % (0-1.3); Hematocrit 37.6 % (36.0-45.0); Lymphocytes % 47.9 % (15.3-44.8); MPV 8.7 fL (7.6-11.3); RBC Red Blood Cell Count 4.96 M/uL (3.86-4.86)
[2020-02-14 05:13] LABS: Protime INR 1.02
[2020-02-14 05:26] LABS: ALT/SGPT 23 U/L (12-78); AST/SGOT 18 U/L (15-37); Albumin 3.3 g/dL (3.4-5.0); Alkaline Phosphatase 71 U/L (45-117); BUN Blood Urea Nitrogen 12 mg/dL (7-18); Bicarbonate 23 mmol/L (21-32); Bilirubin Direct < 0.1 mg/dL (0-0.2); Bilirubin Total 0.2 mg/dL (0.2-1.0); Glucose Level 96 mg/dL (74-106); NT PRO-BNP 21 pg/mL (<125); Potassium 4.1 mmol/L (3.5-5.1); Protein, Total 8.9 g/dL (6.4-8.2); Sodium Level 141 mmol/L (136-145); Troponin (Emerg Dept Use Only) < 0.02 ng/mL (0.0-0.045)
[2020-02-14 05:32] LABS: Barbiturates NEGATIVE (NEGATIVE); Benzodiazepines NEGATIVE (NEGATIVE); Cocaine NEGATIVE (NEGATIVE); METHAMPHETAM NEGATIVE (NEGATIVE); Methadone NEGATIVE (NEGATIVE); Opiates NEGATIVE (NEGATIVE); Phencyclidine NEGATIVE (NEGATIVE); THC Cannibis NEGATIVE (NEGATIVE)
--- NOTE | 2020-02-14 05:38 | ER ---
Nurse's Notes [facility] Name: Dori Guardado Age: 45 yrs Sex: Female : 1975 Arrival Date: 02/14/2020 Time: 04:26 Bed 4 Private MD: Diagnosis: Chest pain, unspecified;Dyspnea;Obesity, unspecified;Solitary pulmonary nodule Presentation: 02/13 04:31 Chief complaint: Patient states: About an hour ago, I woke up feeling short of breath, sg then noticed tingling in my left arm, as well as a sharp pain in my head and neck, denies any trauma or injury at this time. Coronavirus screen: Proceed with normal triage. Ebola Screen: Patient negative for fever greater than or equal to 101.5 degrees Fahrenheit, and additional compatible Ebola Virus Disease symptoms Patient denies exposure to infectious person. Patient denies travel to an Ebola-affected area in the 21 days before illness onset. No symptoms or risks identified at this time. Initial Sepsis Screen: Does the patient meet any 2 criteria? No. Patient's initial sepsis screen is negative. Does the patient have a suspected source of infection? No. Patient's initial sepsis screen is negative. Risk Assessment: Do you want to hurt yourself or someone else? Patient reports no desire to harm self or others. Onset of symptoms was February 14, 2020. Care prior to arrival: None. Transition of care: patient was not received from another setting of care. 04:31 Method Of Arrival: Ambulatory sg 04:31 Acuity: KASH 3 sg Triage Assessment: 05:33 General: Appears in no apparent distress. comfortable. Respiratory: Onset: The mg2 symptoms/episode began/occurred this morning, the patient has mild shortness of breath. Respiratory: Airway is patent Respiratory effort is even, unlabored. 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 - Social history:: Smoking status: Patient denies any tobacco usage or history of. Screenin:40 Tuberculosis screening: No symptoms or risk factors identified. mg2 04:44 Abuse screen: Denies threats or abuse. Denies injuries from another. Nutritional mg2 screening: No deficits noted. 05:34 Fall Risk IV access (20 points). mg2 Assessment: 04:44 Reassessment: patient in CT now. mg2 04:57 General: Appears in no apparent distress. comfortable, Behavior is calm, cooperative. mg2 Pain: Complains of pain in chest Pain radiates to left arm. Neuro: Level of Consciousness is awake, alert, obeys commands, Oriented to person, place, time, situation. Cardiovascular: Capillary refill < 3 seconds Patient's skin is warm and dry. Rhythm is regular. Respiratory: Airway is patent Respiratory effort is even, unlabored, Respiratory pattern is regular, symmetrical, Breath sounds are clear. Respiratory: Reports shortness of breath. GI: No signs and/or symptoms were reported involving the gastrointestinal system. : No signs and/or symptoms were reported regarding the genitourinary system. EENT: No signs and/or symptoms were reported regarding the EENT system. Derm: Skin is intact, is healthy with good turgor, Skin is pink, warm \T\ dry. normal. Musculoskeletal: Circulation, motion, and sensation intact. Capillary refill < 3 seconds. 06:12 Reassessment: dr Baron at bedside with the patient. mg2 06:25 Reassessment: Dr Lofton came and examined the patient. admission advised. and patient mg2 agreed. 07:30 Reassessment: Patient appears in no apparent distress at this time. Patient and/or em family updated on plan of care and expected duration. Pain level reassessed. Patient is alert, oriented x 3, equal unlabored respirations, skin warm/dry/pink. Patient denies pain at this time. 08:27 Reassessment: Patient appears in no apparent distress at this time. Patient and/or em family updated on plan of care and expected duration. Pain level reassessed. Patient is alert, oriented x 3, equal unlabored respirations, skin warm/dry/pink. unable to give report at this time. 09:41 Reassessment: Patient appears in no apparent distress at this time. Patient and/or em family updated on plan of care and expected duration. Pain level reassessed. Patient is alert, oriented x 3, equal unlabored respirations, skin warm/dry/pink. Patient denies pain at this time. Patient states feeling better. Vital Signs: 04:31 BP 146 / 102; Pulse 76; Resp 18; Temp 97.6; Pulse Ox 100% on R/A; Weight 164.2 kg; sg Height 5 ft. 6 in. (167.64 cm); Pain 8/10; 06:25 BP 121 / 83; Pulse 65; Resp 18; Temp 97.5(O); Pulse Ox 100% on R/A; mg2 08:00 BP 129 / 94; Pulse 59; Resp 18; Pulse Ox 100% on R/A; Pain 0/10; em 04:31 Body Mass Index 58.43 (164.20 kg, 167.64 cm) sg ED Course: 04:26 Patient arrived in ED. ds1 04:30 Hardy Yee MD is Attending Physician. sidney 04:34 Triage completed. sg 04:43 Sergio Coelho RN is Primary Nurse. mg2 04:44 Patient has correct armband on for positive identification. mg2 05:00 Inserted saline lock: 20 gauge in right hand, using aseptic technique. Blood collected. mg2 05:05 CT Head Brain wo Cont In Process Unspecified. EDMS 05:19 XRAY Chest (1 view) In Process Unspecified. EDMS 05:19 Notified ED physician of a critical lab result(s). D-Dimer 629. sg 05:28 No provider procedures requiring assistance completed. mg2 05:34 Arm band placed on. mg2 05:37 Yeison Baron MD is Hospitalizing Provider. sidney 05:42 Radiology exam delayed due to IV insertion attempt and/or patient not having kw1 appropriate IV at this time. 05:54 Inserted saline lock: 22 gauge in left forearm, using aseptic technique. jb4 06:12 Patient admitted, IV remains in place. mg2 Administered Medications: 05:53 Drug: NS 0.9% 1000 ml Route: IV; Rate: 125 ml/hr; Site: right hand; jb4 06:26 Follow up: IV Status: Infusion continued upon admission mg2 06:23 Drug: Aspirin 162 mg Route: PO; mg2 06:26 Follow up: Response: No adverse reaction mg2 06:24 Drug: Lopressor (metoprolol TARTRATE) 50 mg Route: PO; mg2 06:26 Follow up: Response: No adverse reaction mg2 06:24 Drug: Lovenox 100 mg Route: Sub-Q; Site: right lower abdomen; mg2 06:26 Follow up: Response: No adverse reaction mg2 08:31 Drug: Pepcid 20 mg Route: IVP; Site: left forearm; em 09:08 Follow up: Response: No adverse reaction em Outcome: 05:38 Decision to Hospitalize by Provider. [facility] 09:07 Admitted to Tele accompanied by tech, via wheelchair, room 205, with chart, Report em called to LEONA TIAN 09:07 Condition: good 09:07 Instructed on the need for admit, Demonstrated understanding of instructions. 09:42 Patient left the ED. em Signatures: Dispatcher [employer] Rivera Florentino, RN RN Hardy Calhoun MD MD cha Munoz, Edgar, RN RN Kandi Musa ds1 Hong Mosher RN RN jb4 Sary Figueredo kw1 Sergio Coelho RN RN mg2
--- NOTE | 2020-02-14 05:39 | EDPHYS ---
Physician Documentation [facility] Name: Dori Guardado Age: 45 yrs Sex: Female : 1975 Arrival Date: 02/14/2020 Time: 04:26 Bed 4 Private MD: ED Physician Hardy Yee HPI: 02/13 05:34 This 45 yrs old Black Female presents to ER via Ambulatory with complaints of Shortness sidney Of Breath, Arm Pain, Numbness - Fingers. 05:34 The patient has shortness of breath at rest. Onset: The symptoms/episode began/occurred sidney just prior to arrival. Duration: The symptoms are continuous, but are markedly better than the original presentation. The patient's shortness of breath has no apparent modifying factors, is aggravated by nothing, is alleviated by nothing. Associated signs and symptoms: Pertinent positives: chest pain, nausea. Severity of symptoms: At their worst the symptoms were moderate in the emergency department the symptoms have improved markedly. The patient has not experienced similar symptoms in the past. 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 - Social history:: Smoking status: Patient denies any tobacco usage or history of. ROS: 05:35 Constitutional: Negative for fever, chills, and weight loss, Eyes: Negative for injury, sidney pain, redness, and discharge, ENT: Negative for injury, pain, and discharge, Neck: Negative for injury, pain, and swelling, Abdomen/GI: Negative for abdominal pain, nausea, vomiting, diarrhea, and constipation, Back: Negative for injury and pain, : Negative for injury, bleeding, discharge, and swelling, MS/Extremity: Negative for injury and deformity, Skin: Negative for injury, rash, and discoloration. 05:35 Cardiovascular: Positive for chest pain. 05:35 Cardiovascular: Positive for 05:35 Respiratory: Positive for shortness of breath. 05:35 Abdomen/GI: Positive for nausea. Exam: 05:35 Constitutional: This is a well developed, well nourished patient who is awake, alert, sidney and in no acute distress. Head/Face: Normocephalic, atraumatic. Eyes: Pupils equal round and reactive to light, extra-ocular motions intact. Lids and lashes normal. Conjunctiva and sclera are non-icteric and not injected. Cornea within normal limits. Periorbital areas with no swelling, redness, or edema. ENT: Nares patent. No nasal discharge, no septal abnormalities noted. Tympanic membranes are normal and external auditory canals are clear. Oropharynx with no redness, swelling, or masses, exudates, or evidence of obstruction, uvula midline. Mucous membranes moist. Neck: Trachea midline, no thyromegaly or masses palpated, and no cervical lymphadenopathy. Supple, full range of motion without nuchal rigidity, or vertebral point tenderness. No Meningismus. Chest/axilla: Normal chest wall appearance and motion. Nontender with no deformity. No lesions are appreciated. Respiratory: Lungs have equal breath sounds bilaterally, clear to auscultation and percussion. No rales, rhonchi or wheezes noted. No increased work of breathing, no retractions or nasal flaring. Abdomen/GI: Soft, non-tender, with normal bowel sounds. No distension or tympany. No guarding or rebound. No evidence of tenderness throughout. Back: No spinal tenderness. No costovertebral tenderness. Full range of motion. Skin: Warm, dry with normal turgor. Normal color with no rashes, no lesions, and no evidence of cellulitis. MS/ Extremity: Pulses equal, no cyanosis. Neurovascular intact. Full, normal range of motion. Neuro: Awake and alert, GCS 15, oriented to person, place, time, and situation. Cranial nerves II-XII grossly intact. Motor strength 5/5 in all extremities. Sensory grossly intact. Cerebellar exam normal. Normal gait. Psych: Awake, alert, with orientation to person, place and time. Behavior, mood, and affect are within normal limits. 05:35 Cardiovascular: Rate: normal, Rhythm: regular, Pulses: no pulse deficits are appreciated, Heart sounds: normal, normal S1and S2, no S3 or S4, no murmur, no rub, no gallop, Edema: is not appreciated, JVD: is not appreciated. 05:35 Musculoskeletal/extremity: DVT Exam: No signs of deep vein thrombosis. no pain, no swelling, no tenderness, negative Homans' sign noted on exam, no appreciated bluish discoloration, no erythema, no increased warmth. 05:39 ECG was reviewed by the Attending Physician. [facility] Vital Signs: 04:31 BP 146 / 102; Pulse 76; Resp 18; Temp 97.6; Pulse Ox 100% on R/A; Weight 164.2 kg; sg Height 5 ft. 6 in. (167.64 cm); Pain 8/10; 06:25 BP 121 / 83; Pulse 65; Resp 18; Temp 97.5(O); Pulse Ox 100% on R/A; mg2 08:00 BP 129 / 94; Pulse 59; Resp 18; Pulse Ox 100% on R/A; Pain 0/10; em 04:31 Body Mass Index 58.43 (164.20 kg, 167.64 cm) sg MDM: 04:30 Patient medically screened. [facility] 05:37 Data reviewed: vital signs, nurses notes, lab test result(s), EKG, radiologic studies, [facility] CT scan, plain films. 05:39 Differential diagnosis: Anxiety Reaction acute myocardial infarction, anxiety, coronary sidney artery disease chest wall pain, Cholelithiasis gastritis, gastroesophageal reflux disease (GERD), hiatal hernia, stable angina, unstable angina, pulmonary edema, Pulmonary Embolism Unstable Angina. Antibiotic administration: Not indicated. HEART Score: History: Slightly Suspicious (0), ECG: Normal (0), Age: < or = 45 years (0), Risk Factors: > or = 3 Risk factors for atherosclerotic disease (2), [Hypertension] Troponin: < or = 1 x Normal Limit (0). The patient was given aspirin in the Emergency Department. The patient's Wells Deep Vein Thrombosis Score was calculated as follows: Total Score: 0. This patient was found to be at low risk for a deep vein thrombosis by using the Well's assessment criteria. The patient's pulmonary embolism risk score was calculated as follows: Total Score: 0-2 points. This patient was found to be at low risk for a pulmonary embolism by using the Well's assessment criteria. BACILIO Risk Score: 1 - Three or more CAD risk factors, [Family Hx], [HTN], [Elevated Cholesterol], TOTAL SCORE = 2. Immunization status:. 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 Test interpretation: by ED physician or midlevel provider: ECG, plain radiologic studies. ED course: PT CP, PRESSURE TO LEFT ARM, SOB, SWEATY WITH NAUSEA. ED course: DW WITH PATIENT AND DR BARON OBS WILL HAVE CARDIOLOGY SEE IN AM, ECHO INPATIENT. 02/13 04:34 Order name: Basic Metabolic Panel; Complete Time: 05:33 [facility] 02/13 04:34 Order name: CBC with Diff; Complete Time: 05:22 [facility] 02/13 04:34 Order name: LFT's; Complete Time: 05: [facility] 02/13 04:34 Order name: Magnesium; Complete Time: 05: [facility] 02/13 04:34 Order name: NT PRO-BNP; Complete Time: 05:33 [facility] 02/13 04:34 Order name: PT-INR; Complete Time: 05: [facility] 02/13 04:34 Order name: Troponin (emerg Dept Use Only); Complete Time: 05:33 [facility] 02/13 04:34 Order name: D-Dimer; Complete Time: 05:22 [facility] 02/13 04:34 Order name: UDS; Complete Time: 05:33 [facility] 02/13 05:08 Order name: Urine Dipstick--Ancillary (enter results); Complete Time: 05:22 02/13 05:08 Order name: Urine --Ancillary (enter results); Complete Time: 05:22 [facility] 02/13 05:55 Order name: Lipid Profile [facility] 02/13 05:55 Order name: Lipid Profile [facility] 02/13 05:55 Order name: Troponin I [facility] 02/13 04:34 Order name: XRAY Chest (1 view) [facility] 02/13 04:34 Order name: EKG; Complete Time: 04:35 [facility] 02/13 04:34 Order name: Cardiac monitoring; Complete Time: 04:57 [facility] 02/13 04:34 Order name: EKG - Nurse/Tech; Complete Time: 04:57 [facility] 02/13 04:34 Order name: IV Saline Lock; Complete Time: 04:57 [facility] 02/13 04:34 Order name: CT Head Brain wo Cont sidney 02/13 05:24 Order name: CT Chest For PE Angio [facility] 02/13 05:54 Order name: CONS Physician Consult [facility] 02/13 05:54 Order name: Echo with Doppler [facility] 02/13 05:55 Order name: Troponin I [facility] 02/13 05:55 Order name: Troponin I [facility] 02/13 04:34 Order name: Labs collected and sent; Complete Time: 04:57 [facility] 02/13 04:34 Order name: O2 Per Protocol; Complete Time: 04:57 [facility] 02/13 04:34 Order name: O2 Sat Monitoring; Complete Time: 04:57 [facility] 02/13 04:34 Order name: Urine Dipstick-Ancillary (obtain specimen); Complete Time: 04:57 [facility] 02/13 04:34 Order name: Urine Test (obtain specimen); Complete Time: 04:57 [facility] EC:39 Rate is 64 beats/min. Rhythm is regular. QRS [place] is Normal. NC interval is normal. QRS sidney interval is normal. QT interval is normal. No Q waves. T waves are Normal. No ST changes noted. Clinical impression: Normal ECG and No evidence of ischemia. Interpreted by me. Reviewed by me. Administered Medications: 05:53 Drug: NS 0.9% 1000 ml Route: IV; Rate: 125 ml/hr; Site: right hand; jb4 06:26 Follow up: IV Status: Infusion continued upon admission mg2 06:23 Drug: Aspirin 162 mg Route: PO; mg2 06:26 Follow up: Response: No adverse reaction mg2 06:24 Drug: Lopressor (metoprolol TARTRATE) 50 mg Route: PO; mg2 06:26 Follow up: Response: No adverse reaction mg2 06:24 Drug: Lovenox 100 mg Route: Sub-Q; Site: right lower abdomen; mg2 06:26 Follow up: Response: No adverse reaction mg2 08:31 Drug: Pepcid 20 mg Route: IVP; Site: left forearm; em 09:08 Follow up: Response: No adverse reaction em Disposition: 02/14/20 05:38 Hospitalization ordered by Yeison Baron for Observation. Preliminary diagnosis are Chest pain, unspecified, Dyspnea, Obesity, unspecified, Solitary pulmonary nodule. - Bed requested for Telemetry/MedSurg (observation). - Status is Observation. em - Condition is Stable. - Problem is new. - Symptoms have improved. Signatures: Dispatcher [employer], Kaycee, RN Rivera Hawkins RN Hardy Galarza MD MD cha Munoz, Edgar, RN RN Hong Ch, RN LEONA jbSergio Shipley, RN RN mg2 Corrections: (The following items were deleted from the chart) 05:59 05:38 Hospitalization Ordered by Yeison Baron MD for Observation. Preliminary diagnosis is Chest pain, unspecified; Dyspnea; Obesity, unspecified. Bed requested for Telemetry/MedSurg (observation). Status is Observation. Condition is Stable. Problem is new. Symptoms have improved. [facility] 06:59 05:59 02/14/2020 05:38 Hospitalization Ordered by Yeison Baron MD for Observation. [facility] Preliminary diagnosis is Chest pain, unspecified; Dyspnea; Obesity, unspecified. Bed requested for Telemetry/MedSurg (observation). Status is Observation. Condition is Stable. Problem is new. Symptoms have improved. 08:29 06:59 02/14/2020 05:38 Hospitalization Ordered by Yeison Baron MD for Observation. em Preliminary diagnosis is Chest pain, unspecified; Dyspnea; Obesity, unspecified; Solitary pulmonary nodule. Bed requested for Telemetry/MedSurg (observation). Status is Observation. Condition is Stable. Problem is new. Symptoms have improved. [facility] 09:42 08:29 02/14/2020 05:38 Hospitalization Ordered by Yeison Baron MD for Observation. em Preliminary diagnosis is Chest pain, unspecified; Dyspnea; Obesity, unspecified; Solitary pulmonary nodule. Bed requested for Telemetry/MedSurg (observation). Status is Observation. Condition is Stable. Problem is new. Symptoms have improved. em
[2020-02-14] MEDS ORDERED: NA CHLORIDE 0.9% 1,000 ML ONE (05:44)
[2020-02-14] MEDS ORDERED: ACETAMINOPHEN 500 MG TAB PO PRN (05:51)
[2020-02-14] MEDS ORDERED: ALPRAZOLAM 0.25 MG TABLET PO PRN (05:51)
[2020-02-14] MEDS ORDERED: ASPIRIN 81 MG CHEWABLE TABLET ONE (06:15)
[2020-02-14] MEDS ORDERED: ENOXAPARIN 100 MG/ML SYR SQ ONE (06:16)
[2020-02-14] MEDS ORDERED: METOPROLOL TAR 25 MG TAB ONE (06:16)
[2020-02-14] MEDS ORDERED: REGADENOSON 0.4 MG/5 ML SYR IV ONE (08:07)
[2020-02-14] MEDS ORDERED: FAMOTIDINE 20 MG/2 ML VIAL IV ONE (08:21)
--- NOTE | 2020-02-14 08:47 | RAD REPORT ---
EXAM DESCRIPTION: Elder Single View02/14/2020 5:17 am CLINICAL HISTORY: Shortness of breath COMPARISON: 2019 FINDINGS: The lungs appear clear of acute infiltrate. The heart is mildly enlarged IMPRESSION: No acute abnormalities displayed
[2020-02-14] MEDS ORDERED: ENOXAPARIN 40 MG/0.4 ML SQ SCH (09:00)
[2020-02-14] MEDS ORDERED: ASPIRIN EC 81 MG TAB PO SCH (09:00)
[2020-02-14] MEDS: METOPROLOL TAR 50 MG TAB PO SCH ×2 (09:00→21:05)
--- NOTE | 2020-02-14 10:25 | CON ---
Date of Consultation: 02/14/2020 Reason For Consultation: Chest pain. History Of Present Illness: Ms. Guardado is a 45-year-old black woman who has a history of hypertensio n, gastroesophageal reflux disease. Has had atrial fibrillation in the past that she used to take so talol for. Her sotalol had been stopped for years. She has not had any atrial fibrillation since. Her blood pressure is well controlled. She takes her metoprolol occasionally. She is not compliant with her medicine. She comes in with multiple complaints including headache, left arm pain, chest pa in, but that are not quite related. They happen at separate time, occasionally happen together. The pain is described as an ache. No nausea, vomiting, diaphoresis, PND, orthopnea, pedal edema, palpit ations, or syncope. Workup so far included D-dimer showed it is low below 629. Rest of it was rhina l. CT angiogram ruled out any pulmonary embolus. The patient continues to have slight pain. She is complaining of being anxious and depressed. She just lost a family member. Past Medical History: As stated above. Allergies: NONE. Review of Systems: Negative. Social History: Negative. Family History: Noncontributory. Medications: Listed earlier. Physical Examination: Vital Signs: Stable. Afebrile. No acute distress. Sinus rhythm. HEENT: Negative. Neck: Supple with no bruit. Chest: Clear. Cardiac: Revealed a regular rhythm and rate. No murmurs, gallops, or rubs. Abdomen: Obese, but benign. Extremities: Revealed no clubbing, cyanosis, or edema. Diagnostic Data: As stated earlier. Impression And Plan: Atypical chest pain in a patient who has a history of hypertension. She has ob esity. Echocardiogram and Lexiscan have been ordered by Dr. Baron. We will see what that shows prior to making final decisions. I do not think her chest pain is cardiac in nature. I think it is most likely musculoskeletal. Her other problems including history of atrial fibrillation that have resolv ed. She has not taken sotalol now for a few years and has not had any recurrence. NARCISO/NADEEM Voice ID: [id number] Report ID: [id number]
--- NOTE | 2020-02-14 10:28 | P.HP ---
Certification for Inpatient Patient admitted to: Observation With expected LOS: <2 Midnights Patient will require the following post-hospital care: None Practitioner: I am a practitioner with admitting privileges, knowledge of patient current condition, hospital course, and medical plan of care. Services: Services provided to patient in accordance with Admission requirements found in Title 42 Section 412.3 of the Code of Federal Regulations Patient History Date of Service: 02/14/20 Reason for admission: Chest pain rule out acute coronary syndrome History of Present Illness: Patient is a 45-year-old female came to the hospital with chest pain. Pain was mainly in the sternal region with no radiation. Patient was short of breath and she had anxiety. Patient has a history of atrial fibrillation and was Dc on sotalol last year. Patient also had a recent CT of the last few months. This has taken quite a toll on her. Patient's chest pain woke her up so she came to the ER. In the emergency room initial troponins and EKG are negative. Spoke with Cardiology and they recommended stress testing. Patient came to the hospital for further evaluation. Allergies No Known Allergies Allergy (Verified 10/25/18 22:51) Home Medications: Metoprolol Tartrate [Lopressor*] 25 mg PO BID 02/12/14 Aspirin 81 mg PO DAILY 09/16/14 Famotidine [Pepcid] 1 tab PO DAILY 10/26/18 Omeprazole 1 cap PO DAILY 10/26/18 predniSONE [Deltasone] 20 mg PO BID #10 tablet 10/26/18 - Past Medical/Surgical History Diabetic: No -: HTN -: Atrial fibrillation -: partial hysterectomy -: Partial resection small intestine -: section -: Appendectomy -: Cholecystectomy - Family History Father Medical History: Heart disease, Diabetes Mother Medical History: Heart disease, Diabetes - Social History Smoking Status: Never smoker Alcohol use: No CD- Drugs: No Caffeine use: No Review of Systems 10-point ROS is otherwise unremarkable Physical Examination - Vital Signs Temperature: 97.5 F Blood Pressure: 129/94 Pulse: 59 Respirations: 18 - Physical Exam General: Alert, In no apparent distress, Oriented x3 HEENT: Atraumatic, PERRLA, Mucous membr. moist/pink, EOMI, Sclerae nonicteric Neck: Supple, 2+ carotid pulse no bruit, No LAD, Without JVD or thyroid abnormality Respiratory: Clear to auscultation bilaterally, Normal air movement Cardiovascular: Regular rate/rhythm, Normal S1 S2, No murmurs Gastrointestinal: Normal bowel sounds, Soft and benign, Non-distended, No tenderness Musculoskeletal: No clubbing, No swelling, No tenderness Integumentary: No rashes Neurological: Normal gait, Normal speech, Normal strength at 5/5 x4 extr, Normal tone, Sensation intact, Cranial nerves 3-12 intact, Normal affect Lymphatics: No axilla or inguinal lymphadenopathy - Studies Laboratory Data (last 24 hrs) 02/14/20 04:55: PT 12.0, INR 1.02 02/14/20 04:55: WBC 8.1, Hgb 12.0, Hct 37.6, Plt Count 376 02/14/20 04:55: Sodium 141, Potassium 4.1, BUN 12, Creatinine 0.80, Glucose 96, Magnesium 2.0, Total Bilirubin 0.2, AST 18, ALT 23, Alkaline Phosphatase 71 Assessment & Plan - Problems (Diagnosis) (1) Chest pain, rule out acute myocardial infarction Current Visit: Yes Status: Acute (2) History of atrial fibrillation Current Visit: Yes Status: Acute (3) Hypertension Current Visit: No Status: Acute Qualifiers: - Plan 1. Serial troponins and EKG 2. Appreciate Cardiology consultation 3. Echocardiogram and stress test if cardiology is agreeable 4. Anti-platelet therapy, anti coagulation, beta-mirian, statin, and O2 as needed 5. IV morphine for pain 6. Nitro p.r.n. - Advance Directives Does patient have a Living Will: No Does patient have a Durable POA for Healthcare: No
[2020-02-14 10:59] VITALS: BMI 58.4
[2020-02-14 11:28] LABS: HDL Cholesterol 48 mg/dL (40-60); LDL Cholesterol, Calculated 121 (<130); Troponin I < 0.02 ng/mL (0.0-0.045)
--- NOTE | 2020-02-14 12:30 | RAD REPORT ---
EXAM DESCRIPTION: NM - Rest Stress Cardiac Imaging - 02/14/2020 12:20 pm CLINICAL HISTORY: Chest pain. COMPARISON: None. TECHNIQUE: The patient was administered approximately 10mCi of Tc 99m Sestamibi prior to resting SPE CT imaging of the heart. The patient was then administered approximately 30 mCi of Tc 99m Sestamibi f ollowing exercise or pharmacologic stress. Multiplanar SPECT images were reviewed. FINDINGS: There is uniformity of radiotracer uptake involving the entire left ventricular myocardiu m on rest and stress images. The left ventricular ejection fraction equals 66% IMPRESSION: Negative for a myocardial perfusion defect
--- NOTE | 2020-02-14 15:37 | EKG ---
Test Date: 2020-02-14 Test Time: 04:55:54 Director [place]: ALYSSA MEASUREMENT RESULTS: Intervals: Rate: 64 TX: 184 QRSD: 82 QT: 404 QTc: 416 [place]: P: 58 TX: 184 QRS: 12 T: 25 INTERPRETIVE STATEMENTS: Normal sinus rhythm Normal ECG Compared to ECG 10/25/2018 20:17:23 Left ventricular hypertrophy no longer present Electronically Signed On 02-14-20 15:35:35 CDT by Matthew Lofton
[2020-02-14 23:22] VITALS: O2SAT 99
[2020-02-15 01:20] VITALS: BP 129/94; TEMP 97.5
--- NOTE | 2020-02-15 01:31 | P.DS ---
Discharge Date: 02/14/20 Disposition: ROUTINE DISCHARGE Discharge Condition: GOOD Reason for Admission: Chest pain rule out acute coronary syndrome Consultations: Cardiology - Problems (1) Chest pain, rule out acute myocardial infarction Status: Acute (2) History of atrial fibrillation Status: Acute (3) Hypertension Status: Acute Qualifiers: Brief History of Present Illness: Patient is a 45-year-old female came to the hospital with chest pain. Pain was mainly in the sternal region with no radiation. Patient was short of breath and she had anxiety. Patient has a history of atrial fibrillation and was Dc on sotalol last year. Patient also had a recent CT of the last few months. This has taken quite a toll on her. Patient's chest pain woke her up so she came to the ER. In the emergency room initial troponins and EKG are negative. Spoke with Cardiology and they recommended stress testing. Patient came to the hospital for further evaluation. Hospital Course: Patient's stress test was negative. Echocardiogram is pending. However, patient is clinically doing well. No chest pain. Hemodynamically patient is stable. Patient stable for discharge. She will call me in 48-72 hrs. Patient will follow with PCP in 1-2 weeks. Continue with anxiolytics as needed. Patient is stable for discharge home with outpatient follow-up. Vital Signs/Physical Exam: Temp Pulse Resp BP Pulse Ox 97.5 F 59 18 129/94 H 99 02/15/20 01:19 02/15/20 01:19 02/15/20 01:19 02/15/20 01:19 02/14/20 20:00 General: Alert, In no apparent distress, Oriented x3 Laboratory Data at Discharge: WBC 8.1 K/uL (4.3-10.9) 02/14/20 04:55 Hgb 12.0 g/dL (12.0-15.0) 02/14/20 04:55 Hct 37.6 % (36.0-45.0) 02/14/20 04:55 Plt Count 376 K/uL (152-406) 02/14/20 04:55 PT 12.0 SECONDS (9.5-12.5) 02/14/20 04:55 INR 1.02 02/14/20 04:55 Sodium 141 mmol/L (136-145) 02/14/20 04:55 Potassium 4.1 mmol/L (3.5-5.1) 02/14/20 04:55 BUN 12 mg/dL (7-18) 02/14/20 04:55 Creatinine 0.80 mg/dL (0.55-1.3) 02/14/20 04:55 Glucose 96 mg/dL (74-106) 02/14/20 04:55 Magnesium 2.0 mg/dL (1.8-2.4) 02/14/20 04:55 Total Bilirubin 0.2 mg/dL (0.2-1.0) 02/14/20 04:55 AST 18 U/L (15-37) 02/14/20 04:55 ALT 23 U/L (12-78) 02/14/20 04:55 Alkaline Phosphatase 71 U/L (45-117) 02/14/20 04:55 Troponin I < 0.02 ng/mL (0.0-0.045) 02/14/20 14:22 Triglycerides 100 mg/dL (<150) 02/14/20 10:33 Cholesterol 189 mg/dL (<200) 02/14/20 10:33 HDL Cholesterol 48 mg/dL (40-60) 02/14/20 10:33 Cholesterol/HDL Ratio 3.94 02/14/20 10:33 Home Medications: Aspirin 81 mg PO DAILY 09/16/14 Famotidine [Pepcid] 1 tab PO DAILY 10/26/18 Omeprazole 1 cap PO DAILY 10/26/18 predniSONE [Deltasone] 20 mg PO BID #10 tablet 10/26/18 metroNIDAZOLE [Flagyl] 500 mg PO BID 02/14/20 Metoprolol Tartrate [Lopressor*] 25 mg PO BID #60 tab 02/15/20 clonazePAM [Klonopin] 0.5 mg PO TID PRN #60 tablet 02/15/20 New Medications: clonazePAM [Klonopin] 0.5 mg PO TID PRN #60 tablet PRN Reason: anxiety/insomnia Metoprolol Tartrate [Lopressor*] 25 mg PO BID #60 tab Patient Discharge Instructions: OK TO DC IV AND DC HOME. FOLLOW-UP WITH PRIMARY CARE PROVIDER IN 1-2 WEEKS. FOLLOW-UP WITH CARDIOLOGY IN 1-2 WEEKS. RETURN TO THE ER IF symptoms worsen. CALL or TEXT DR. CORBETT AT [phone] IF ANY QUESTIONS REGARDING HOSPITAL STAY. PLEASE CALL THE FLOOR AT [phone] IF ANY MEDICATION OR NURSING QUESTIONS. Diet: AHA Activity: Fall precautions Time spent managing pt's care (in minutes): 25
--- NOTE | 2020-02-15 09:44 | RAD REPORT ---
EXAM DESCRIPTION: CT - Chest For Pe Angio - 02/14/2020 6:56 am CLINICAL HISTORY: DYSPNEA COMPARISON: None. TECHNIQUE: Chest CTA axial images acquired with IV contrast. Coronal and sagittal CTA MIPs and MPRs created. Exam performed according to departmental dose-optimization program which includes automated exposure control, adjustment of mA and/or kV according to patient size, and/or use of iterative recon struction technique. FINDINGS: Evaluation more difficult due to patient's respiratory motion artifact. Heart size upper limits normal. No pericardial effusion. Unremarkable thoracic aorta without evidence of dissection or aneurysm. No evidence of large central pulmonary embolism. Evaluation of small peripheral pulmonary arteries is more difficult due to respiratory motion artifac t. No pleural effusion or pneumothorax. Mild scattered bilateral lung atelectasis and ground glass opacities. Left lower lobe superior segment subpleural lung nodule measuring 5 x 4 mm (axial series 401, image 6 5). Nonspecific, mild, distal, esophageal wall thickening appearance. Possible small hiatal hernia. IMPRESSION: 1. Evaluation more difficult due to patient's respiratory motion artifact. 2. No CT evidence of large central pulmonary embolism. Evaluation of small peripheral pulmonary arteries is more difficult due to respiratory motion artifac t. 3. Mild scattered bilateral lung atelectasis. 4. Mild scattered bilateral ground glass lung opacities. Causes include subsegmental atelectasis, pulmonary edema, and infection. 5. Left lower lobe superior segment subpleural lung nodule measuring 5 x 4 mm. Lung Nodule: Nodule size Nodule size 6. Nonspecific, mild, distal, esophageal wall thickening appearance. Possible small hiatal hernia. This may represent artifactual wall thickening due to lack of distention versus true wall thickening from reflux esophagitis and less likely neoplasm. Upper GI fluoroscopic series or upper GI endoscopy may provide more information. Electronically signed by: Jace Jean Baptiste MD 02/14/2020 6:45 AM CDT Due to temporary technical issues with the PACS/Fluency reporting system, reports are being signed by the in house radiologist as a courtesy to ensure prompt reporting. The interpreting radiologist is f ully responsible for the content of the report.
--- NOTE | 2020-02-15 09:46 | RAD REPORT ---
EXAM DESCRIPTION: CT - Head Brain Wo Cont - 02/14/2020 5:34 am CLINICAL HISTORY: The patient is 45 years old and is Female; HEADACHE TECHNIQUE: Axial computed tomography images of the head/brain without intravenous contrast. Sagitt al and coronal reformatted images were created and reviewed. This CT exam was performed using one o r more of the following dose reduction techniques: automated exposure control, adjustment of the mA and/or kV according to patient size, and/or use of iterative reconstruction technique. COMPARISON: No relevant prior studies available. FINDINGS: BRAIN: Unremarkable. The fried-white matter differentiation is preserved . No hemorrhage. No s ignificant white matter disease. No edema. No extra-axial fluid collections. VENTRICLES: Unremarkable. No ventriculomegaly. BONES/JOINTS: No acute fracture. SOFT TISSUES: Unremarkable. SINUSES: Unremarkable as visualized. No acute sinusitis. MASTOID AIR CELLS: Unremarkable as visualized. No mastoid effusion. ORBITS: Unremarkable as visualized. IMPRESSION: No acute intracranial findings. Electronically signed by: Zhanna Acevedo MD 02/14/2020 5:20 AM CDT Due to temporary technical issues with the PACS/Fluency reporting system, reports are being signed by the in house radiologist as a courtesy to ensure prompt reporting. The interpreting radiologist is f ully responsible for the content of the report.
--- NOTE | 2020-02-17 08:04 | TREADPHA ---
DX: CHEST PAIN Date of Study: 02/14/2020 Ht: 5' 6 " Wt: 362 lb 0 oz Consulting Physician: SANDRA MEDICATIONS: TYLENOL, ASPIRIN, LOVENOX, LOPRESSOR, PEPCID HISTORY: 45 YEAR OLD FEMALE ADMITTED FOR SHORTNESS OF BREATH, ARM PAIN. HISTORY OF ATRIAL FIBRILLATION, HYPERTENSION, CHRONS, MORBID OBESITY. PHYSICIAL EXAMINATION: RESTING B.P.: 131/79 RESTING H.R.: 66 RESTING EKG: NORMAL PROTOCOL: PHARMACOLOGIC EXERCISE TIME: 3:30 B.P. AT PEAK STRESS: 118/80 IMPRESSION: LEXISCAN STRESS TEST DONE. CARDIOLITE INJECTED PER PROTOCOL. NO SUPRAVENTRICULAR TACHYCARDIA, NO VENTRICULAR TACHYCARDIA, NO ARRHYTHMIA NOTED. PATIENT DENIED CHEST PAIN. TOLERATED WELL. RESPIRATORY EVEN NON-LABORED. SEE NUCLEAR MEDICINE REPORT.
--- NOTE | 2020-02-17 08:06 | ECHO ---
HEIGHT: 5 ft 6 in WEIGHT: 362 lb 0 oz DATE OF STUDY: 02/14/[address]: Yeison Baron MD 2-DIMENSIONAL: YES M.MODE: YES DOPPLER: YES COLOR FLOW: YES TDS: PORTABLE: DEFINITY: BUBBLE STUDY: DIAGNOSIS: CHEST PAIN CARDIAC HISTORY: CATHERIZATION: NO SURGERY: NO PROSTHETIC VALVE: NO PACEMAKER: NO MEASUREMENTS (cm) DIASTOLIC (NORMALS) SYSTOLIC (NORMALS) IVSd 1.1 (0.6-1.2) LA Diam 2.9 (1.9-4.0) LVEF 51% LVIDd 3.7 (3.5-5.7) LVIDs 2.8 (2.0-3.5) %FS 26% LVPWd 1.3 (0.6-1.2) Ao Diam 2.8 (2.0-3.7) 2 DIMENSIONAL ASSESSMENT: RIGHT ATRIUM: NORMAL LEFT ATRIUM: NORMAL RIGHT VENTRICLE: NORMAL LEFT VENTRICLE: NORMAL TRICUSPID VALVE: NORMAL MITRAL VALVE: NORMAL PULMONIC VALVE: NORMAL AORTIC VALVE: NORMAL PERICARDIAL EFFUSION: NONE AORTIC ROOT: NORMAL LEFT VENTRICULAR WALL MOTION: NORMAL DOPPLER/COLOR FLOW: NORMAL COMMENTS: NORMAL 2-DIMENSIONAL ECHOCARDIOGRAM WITH DOPPLER. NO WALL MOTION ABNORMALITY. NO EFFUSION. TECHNOLOGIST: JEFF CUNNINGHAM
== END 2020-02-14 21:59 | disposition home or self-care (01) ==
LOC: ER 04:24 → ERHOLD 06:07 → 2ND 09:19
PROVIDERS: ADMIT Hospitalist; ATTEND Hospitalist
DX: R07.89 Other chest pain (principal); I48.91 Unspecified atrial fibrillation; I10 Essential (primary) hypertension; K50.90 Crohn's disease, unspecified, without complications; K21.9 Gastro-esophageal reflux disease without esophagitis; F41.8 Other specified anxiety disorders; E66.9 Obesity, unspecified; Z68.43 Body mass index [BMI] 50.0-59.9, adult
CPT/HCPCS: 36415; 70450; 71045; 71275; 78452; 80048; 80061; 80076; 80307; 81003; 81025; 83735; 83880; 84484; 85025; 85379; 85610; 93005; 93017; 93306; 96361; 96372; 96374; 99285; A9500; G0378; J1650; J2785; J7030; Q9967

== ENCOUNTER 2020-04-25 01:39 | Emergency (ER) | payer SELFPAY ==
--- OUTSIDE RECORDS SUMMARY | 2020-04-25 01:43 | XMS REPORT | Continuity of Care Document ---
:1975 Author Organization [facility] t Address [address] [place] [address] [address] [place] [address] Care Team Providers Name Role Phone Unavailable Unavailable Unavailable Problems Condition Condition Condition Status Onset Resolution Last Treating Co mments Source Name Details Category Date Date Treatment Clinician Date Obesity, Obesity, Problem [facility] - BMI 50 or BMI 50 or Delvis dayanna higher higher l [facility] Depression Depression Problem Active [facility] with with [facility] - anxiety anxiety [facility] Seasonal Seasonal Problem Active [facility] allergic allergic [facility] - rhinitis rhinitis Memori a due to due to l pollen pollen [facility] High blood High blood Problem Active [facility] pressure pressure [facility] - [facility] Crohn's Crohn's Problem Active [facility] disease in disease in [place] - remission remission Delvis dayanna l [facility] Urinary Urinary Problem Active [facility] tract tract [facility] - infection, infection, Me moria site not site not l specified specified Outp ati ent Clinics Adult Adult Problem Active [facility] general general [facility] medical Memoria exam exam l [facility] Multiple Multiple Problem Active [facility] joint pain joint pain [place] [facility] - [facility] Hematuria, Hematuria, Problem Active [facility] unspecifie unspecifie [place] [facility] - d d [facility] Chronic Chronic Problem Active [facility] fatigue fatigue [facility] - [facility] BMI BMI Problem Active [facility] 50.0-59.9, 50.0-59.9, [place] - adult adult [facility] Vitamin D Vitamin D Problem Active [facility] deficiency deficiency [place] [facility] - [facility] Grieving Grieving Problem [facility] Allergies, Adverse Reactions, Alerts This [...] Date/Time Type Type Clinicians Facility Department ID 2020-02-19 2020-02-19 Outpatient Dolores Cavazos [id number] [facility] 16:06:00 16:06:[address] [facility] Medicine Medicine Outpati ent Clinics 2019-12-12 2019-12-12 Outpatient Dolores Bernalt [id number] [facility] 15:41:00 15:41:00 t [employer] [facility] Medicine Medicine Outpati ent Clinics 2019-09-16 2019-09-16 [place] [place] [id number] [facility] 14:40:00 14:40:00 [place] [employer] [facility] Medicine Outpati ent Clinics 2019-08-15 2019-08-15 [facility] [id number] 09:27:00 09:27:00 t [place] [employer] [facility] Medicine Outpati ent Clinics 2019-08-12 2019-08-12 [facility] [id number] 09:00:00 09:00:00 [place] [employer] [facility] - [facility] Medicine Outpati ent Clinics 2019-07-31 2019-07-31 [facility] [id number] [facility] 11:46:00 11:46:00 [place] [employer] [facility] - [facility] Medicine Outpati ent Clinics 2019-07-29 2019-07-29 [facility] [id number] 09:40:00 09:40:00 [place] [employer] [facility] - [facility] Medicine Outpati ent Clinics 2019-06-02 2019-06-02 [facility] [id number] 09:38:00 09:38:00 t [facility] l Outpati ent Clinics 2019-05-31 2019-05-31 [facility] [id number] 11:30:00 11:30:00 [facility] l Outpati ent Clinics 2018-01-19 2018-01-19 [facility] [id number] [facility] 08:11:00 08:11:00 [place] [employer] [facility] - [facility] Medicine Outpati ent Clinics 2018-01-18 2018-01-18 [facility] [id number] [facility] 10:15:00 10:15:00 [place] [employer] - [facility] Medicine Outpati ent Clinics 2017-12-26 2017-12-26 [facility] [id number] [facility] 09:30:00 09:30:00 [place] [employer] [facility] - [facility] Medicine Outpati ent Clinics Results This patient has no known results.
[2020-04-25 03:02] LABS: Urine Blood NEGATIVE (NEG); Urine Glucose NEGATIVE (NEG); Urine Protein 1+ (NEG); Urine Specific Gravity >1.030 (1.005-1.030)
[2020-04-25 03:22] LABS: Absolute Lymphocytes (CBC) 2.7 K/uL (0.7-4.9); Basophils % 1.3 % (0-1.3); Hematocrit 37.4 % (36.0-45.0); Lymphocytes % 35.6 % (15.3-44.8); MPV 8.7 fL (7.6-11.3); RBC Red Blood Cell Count 4.84 M/uL (3.86-4.86)
[2020-04-25 03:25] LABS: Protime INR 1.03
[2020-04-25 03:35] LABS: ALT/SGPT 35 U/L (12-78); AST/SGOT 21 U/L (15-37); Albumin 3.5 g/dL (3.4-5.0); Alkaline Phosphatase 73 U/L (45-117); BUN Blood Urea Nitrogen 13 mg/dL (7-18); Bicarbonate 25 mmol/L (21-32); Bilirubin Direct < 0.1 mg/dL (0-0.2); Bilirubin Total 0.2 mg/dL (0.2-1.0); Glucose Level 102 mg/dL (74-106); NT PRO-BNP 14 pg/mL (<125); Potassium 3.6 mmol/L (3.5-5.1); Protein, Total 8.9 g/dL (6.4-8.2); Sodium Level 144 mmol/L (136-145); Troponin (Emerg Dept Use Only) < 0.02 ng/mL (0.0-0.045)
--- NOTE | 2020-04-25 07:12 | EDPHYS ---
Physician Documentation [facility] Name: Dori Guardado Age: 45 yrs Sex: Female : 1975 Arrival Date: 04/25/2020 Time: 01:43 Bed 19 Private MD: ED Physician Carlo sAlberto Rios HPI: 04/25 02:20 This 45 yrs old Black Female presents to ER via Ambulatory with complaints of Leg mh7 Swelling, Congestion. 02:20 The patient or guardian reports cough, that is intermittent. Onset: The mh7 symptoms/episode began/occurred 2 day(s) ago. Severity of symptoms: At their worst the symptoms were moderate, 2 day(s) ago, in the emergency department the symptoms have improved, moderately. Modifying factors: The symptoms are alleviated by nothing, the symptoms are aggravated by nothing. Associated signs and symptoms: Pertinent positives: Pertinent negatives: chest pain, diarrhea, ear ache, fever, nausea, rhinorrhea, sore throat, vomiting. 02:21 Associated signs and symptoms: Pertinent positives: upper back pain, leg swelling. 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 - Social history:: Smoking status: Patient/guardian denies using. ROS: 02:21 Constitutional: Negative for fever, chills, and weight loss, Eyes: Negative for injury, mh7 pain, redness, and discharge, ENT: Negative for injury, pain, and discharge, Neck: Negative for injury, pain, and swelling, Cardiovascular: Negative for chest pain, palpitations, and edema, Abdomen/GI: Negative for abdominal pain, nausea, vomiting, diarrhea, and constipation, : Negative for injury, bleeding, discharge, and swelling, Skin: Negative for injury, rash, and discoloration, Neuro: Negative for headache, weakness, numbness, tingling, and seizure, Psych: Negative for depression, anxiety, suicide ideation, homicidal ideation, and hallucinations, Allergy/Immunology: Negative for hives, rash, and allergies, Endocrine: Negative for neck swelling, polydipsia, polyuria, polyphagia, and marked weight changes, Hematologic/Lymphatic: Negative for swollen nodes, abnormal bleeding, and unusual bruising. Exam: 02:21 Constitutional: This is a well developed, well nourished patient who is awake, alert, mh7 and in no acute distress. Head/Face: Normocephalic, atraumatic. Neck: Trachea midline, no thyromegaly or masses palpated, and no cervical lymphadenopathy. Supple, full range of motion without nuchal rigidity, or vertebral point tenderness. No Meningismus. Chest/axilla: Normal chest wall appearance and motion. Nontender with no deformity. No lesions are appreciated. Cardiovascular: Regular rate and rhythm with a normal S1 and S2. No gallops, murmurs, or rubs. Normal PMI, no JVD. No pulse deficits. Respiratory: Lungs have equal breath sounds bilaterally, clear to auscultation and percussion. No rales, rhonchi or wheezes noted. No increased work of breathing, no retractions or nasal flaring. Abdomen/GI: Soft, non-tender, with normal bowel sounds. No distension or tympany. No guarding or rebound. No evidence of tenderness throughout. Back: No spinal tenderness. No costovertebral tenderness. Full range of motion. Skin: Warm, dry with normal turgor. Normal color with no rashes, no lesions, and no evidence of cellulitis. MS/ Extremity: Pulses equal, no cyanosis. Neurovascular intact. Full, normal range of motion. Neuro: Awake and alert, GCS 15, oriented to person, place, time, and situation. Cranial nerves II-XII grossly intact. Motor strength 5/5 in all extremities. Sensory grossly intact. Cerebellar exam normal. Normal gait. Psych: Awake, alert, with orientation to person, place and time. Behavior, mood, and affect are within normal limits. 04:47 ECG was reviewed by the Attending Physician. [facility] Vital Signs: 01:53 BP 169 / 94; Pulse 100; Resp 18; Temp 98.3(O); Pulse Ox 98% on R/A; oe 03:30 BP 150 / 97; Pulse 75; Resp 18; Pulse Ox 95% on R/A; wh 05:01 BP 138 / 91; Pulse 72; Resp 18; Pulse Ox 94% on R/A; 06:45 BP 145 / 79; Pulse 75; Resp 18; Pulse Ox 98% on R/A; MDM: 02:04 Patient medically screened. 07:08 Differential Diagnosis: Bronchitis Influenza Upper Respiratory Infection Viral Syndrome 7 Pneumonia Other DVT, Pulmonary Embolus. Data reviewed: vital signs, nurses notes, lab test result(s), cardiac enzymes, CBC, electrolytes, urinalysis, EKG, radiologic studies, CT scan, plain films, ultrasound. Data interpreted: Pulse oximetry: on room air is 98 %. Interpretation: normal. Counseling: I had a detailed discussion with the patient and/or guardian regarding: the historical points, exam findings, and any diagnostic results supporting the discharge/admit diagnosis, the presence of at least one elevated blood pressure reading (>120/80) during this emergency department visit, lab results, radiology results, the need for outpatient follow up, to return to the emergency department if symptoms worsen or persist or if there are any questions or concerns that arise at home. Response to treatment: the patient's symptoms have markedly improved after treatment. 04/25 02:08 Order name: CBC with Diff; Complete Time: 03:55 04/25 02:08 Order name: Basic Metabolic Panel; Complete Time: 03:55 04/25 02:08 Order name: Troponin (emerg Dept Use Only); Complete Time: 03:55 04/25 02:08 Order name: LFT's; Complete Time: 03:55 04/25 02:08 Order name: Influenza Screen (a \T\ B); Complete Time: 03:55 04/25 02:08 Order name: Protime (+inr); Complete Time: 03:55 04/25 02:08 Order name: Ptt, Activated; Complete Time: 03:55 04/25 02:08 Order name: PROBNP; Complete Time: 03:55 04/25 02:08 Order name: Chest Pa And Lat (2 Views) XRAY 04/25 02:56 Order name: Urine Dipstick--Ancillary (enter results); Complete Time: 03:21 tt3 04/25 03:57 Order name: DD; Complete Time: 04:45 mh7 04/25 04:44 Order name: CT Chest For PE Angio [facility] 04/25 05:12 Order name: US Extremity Venous W Compression Jerome [facility] 04/25 02:08 Order name: EKG - Nurse/Tech; Complete Time: 02:28 [facility] 04/25 02:08 Order name: Urine Dipstick-Ancillary (obtain specimen); Complete Time: 02:55 [facility] 04/25 06:36 Order name: Lower Extremity Arterial Bilat [facility] EC:47 Rate is 75 beats/min. Rhythm is regular, Normal Sinus Rhythm. QRS [place] is Normal. [place] mh7 interval is normal. QRS interval is normal. QT interval is normal. No Q waves. T waves are Normal. No ST changes noted. Clinical impression: Normal ECG. Administered Medications: No medications were administered Disposition: 04/25/20 07:10 Discharged to Home. Impression: Cough, Back Pain, Lower Extremity Swelling. - Condition is Stable. - Discharge Instructions: Back Pain, Adult, Goer-op-[id number], Cough, Adult, [id number]-qi-[id number], Peripheral Edema. - Prescriptions for Ibuprofen 800 mg Oral Tablet - take 1 tablet by ORAL route every 8 hours As needed take with food; 12 tablet. Tessalon Perles 100 mg Oral Capsule - take 1 capsule by ORAL route every 8 hours As needed; 15 capsule. - Medication Reconciliation Form, Thank You Letter, Antibiotic Education, Prescription Opioid Use form. - Follow up: Private Physician; When: 2 - 3 days; Reason: Worsening of condition, Recheck today's complaints, Continuance of care, Re-evaluation by your physician. - Problem is new. - Symptoms have improved. Signatures: Dispatcher [facility] Zoila Riddle RN RN Geovani Lott Maurice, MD MD mh7 Corrections: (The following items were deleted from the chart) 06:36 05:33 Lower Extremity Artery Uni Ltd ordered. [facility] 07:28 07:10 04/25/2020 07:10 Discharged to Home. Impression: Cough; Back Pain; Lower ss Extremity Swelling. Condition is Stable. Forms are Medication Reconciliation Form, Thank You Letter, Antibiotic Education, Prescription Opioid Use. Follow up: Private Physician; When: 2 - 3 days; Reason: Worsening of condition, Recheck today's complaints, Continuance of care, Re-evaluation by your physician. Problem is new. Symptoms have improved. mh7
--- NOTE | 2020-04-25 07:12 | ER ---
Nurse's Notes [facility] Name: Dori Guardado Age: 45 yrs Sex: Female : 1975 Arrival Date: 04/25/2020 Time: 01:43 Bed 19 Private MD: Diagnosis: Cough;Back Pain;Lower Extremity Swelling Presentation: 04/25 01:50 Chief complaint: Patient states: Pt C/O back pain and congestion, was recently tested for COvid and was negative. Pt also C/O leg swelling that started yesterday. Coronavirus screen: Client denies travel out of the [place] in the last 14 days. At this time, the client does not indicate any symptoms associated with coronavirus-19. The client reports previous COVID testing was negative. Ebola Screen: Patient negative for fever greater than or equal to 101.5 degrees Fahrenheit, and additional compatible Ebola Virus Disease symptoms Patient denies exposure to infectious person. Initial Sepsis Screen: Does the patient meet any 2 criteria? HR > 90 bpm. Does the patient have a suspected source of infection? No. Patient's initial sepsis screen is negative. Risk Assessment: Do you want to hurt yourself or someone else? Patient reports no desire to harm self or others. Onset of symptoms is unknown. 01:50 Method Of Arrival: Ambulatory 01:50 Acuity: KASH 4 02:08 Coronavirus screen: cough unrelated to allergies, muscle pain. [employer]: 02:06 LMP N/A - Hysterectomy Historical: - Allergies: 02:05 No Known Allergies; - Home Meds: 02:05 Metoprolol Tartrate Oral [Active]; Aspirin Oral [Active]; Omeprazole Oral [Active]; - PMHx: 02:05 Atrial Fib; bowel obstruction; Crohn's; Hypertension; - PSHx: 02:05 Cholecystectomy; Hysterectomy; Appendectomy; - Immunization history:: Adult Immunizations up to date. - Social history:: Smoking status: Patient/guardian denies using. Screenin:06 Abuse screen: Denies threats or abuse. Denies injuries from another. Nutritional screening: No deficits noted. Tuberculosis screening: No symptoms or risk factors identified. Fall Risk None identified. Assessment: 02:06 General: Appears in no apparent distress. Behavior is calm, cooperative, appropriate wh for age. Pain: Complains of pain in upper back Pain does not radiate. Pain currently is 3 out of 10 on a pain scale. Quality of pain is described as aching. Neuro: Level of Consciousness is awake, alert, obeys commands, Oriented to person, place, time, situation, Appropriate for age. Cardiovascular: Heart tones S1 S2 Capillary refill < 3 seconds. Respiratory: Reports cough that is Airway is patent Respiratory effort is even, unlabored, Respiratory pattern is regular, symmetrical, Breath sounds are clear bilaterally. GI: Abdomen is round non-distended. : No signs and/or symptoms were reported regarding the genitourinary system. EENT: No signs and/or symptoms were reported regarding the EENT system. Derm: Skin is intact, is healthy with good turgor, Skin is pink, warm \T\ dry. normal. Musculoskeletal: Circulation, motion, and sensation intact. 03:30 Reassessment: Patient appears in no apparent distress at this time. No changes from previously documented assessment. Patient and/or family updated on plan of care and expected duration. Pain level reassessed. Patient is alert, oriented x 3, equal unlabored respirations, skin warm/dry/pink. 05:00 Reassessment: Patient appears in no apparent distress at this time. No changes from previously documented assessment. Patient and/or family updated on plan of care and expected duration. Pain level reassessed. Patient is alert, oriented x 3, equal unlabored respirations, skin warm/dry/pink. 06:30 Reassessment: Patient appears in no apparent distress at this time. No changes from previously documented assessment. Patient and/or family updated on plan of care and expected duration. Pain level reassessed. Patient is alert, oriented x 3, equal unlabored respirations, skin warm/dry/pink. 06:45 Reassessment: BETHANY at bedside. 07:05 Reassessment: Patient appears in no apparent distress at this time. Patient and/or ss family updated on plan of care and expected duration. Pain level reassessed. Patient is alert, oriented x 3, equal unlabored respirations, skin warm/dry/pink. Vital Signs: 01:53 BP 169 / 94; Pulse 100; Resp 18; Temp 98.3(O); Pulse Ox 98% on R/A; oe 03:30 BP 150 / 97; Pulse 75; Resp 18; Pulse Ox 95% on R/A; 05:01 BP 138 / 91; Pulse 72; Resp 18; Pulse Ox 94% on R/A; 06:45 BP 145 / 79; Pulse 75; Resp 18; Pulse Ox 98% on R/A; ED Course: 01:43 Patient arrived in ED. cl3 01:50 Carlos Alberto Rios MD is Attending Physician. 7 02:02 Geovani Nunez is Primary Nurse. 02:03 Triage completed. 02:06 Patient has correct armband on for positive identification. Bed in low position. Call light in reach. Side rails up X 1. Pulse ox on. NIBP on. 02:08 Arm band placed on right wrist. 03:02 Chest Pa And Lat (2 Views) XRAY In Process Unspecified. EDMS 03:04 Inserted saline lock: 22 gauge in right hand, using aseptic technique. Blood collected. oe 04:26 Notified ED physician of a critical lab result(s). DDimer of 525. Dr Rios notified. bb 05:20 CT Chest For PE Angio In Process Unspecified. EDMS 07:13 US Extremity Venous W Compression Jerome In Process Unspecified. EDMS 07:14 Lower Extremity Arterial Bilat In Process Unspecified. EDMS 07:28 No provider procedures requiring assistance completed. IV discontinued, intact, ss bleeding controlled, No redness/swelling at site. Administered Medications: No medications were administered Outcome: 07:10 Discharge ordered by . 7 07:28 Discharged to home ambulatory. 07:28 Condition: stable 07:28 Discharge instructions given to patient, Instructed on discharge instructions, follow up and referral plans. medication usage, Demonstrated understanding of instructions, follow-up care, medications, Prescriptions given X 2. 07:28 Patient left the ED. Signatures: Dispatcher [employer] EDNY Precious Felton RN RN Zoila Elizalde RN RN Navin Blake Geovani Nunez Tani Mckee cl3 Carlos Alberto Rios MD MD 7 Corrections: (The following items were deleted from the chart) 06:46 06:30 Reassessment: Patient appears in no apparent distress at this time. No changes wh from previously documented assessment. Patient and/or family updated on plan of care and expected duration. Pain level reassessed. Patient is alert, oriented x 3, equal unlabored respirations, skin warm/dry/pink. BETHANY at bedside wh
[2020-04-25 07:44] VITALS: TEMP 98.3
[2020-04-25 07:48] VITALS: BP 145/79; O2SAT 98
--- NOTE | 2020-04-25 11:07 | RAD REPORT ---
EXAM DESCRIPTION: US - Extrem Venous W Compress Jerome - 04/25/2020 7:14 am CLINICAL HISTORY: SWELLING Bilateral leg edema and swelling. COMPARISON: EXT VENOUS W COMPRESSION JEROME dated 02/12/2014 TECHNIQUE: Real-time sonographic interrogation of the left and right lower extremity deep venous sys tems was performed. FINDINGS: Normal compressibility, flow augmentation, phasic flow and spontaneous flow is identified in both the left and right lower extremity deep venous systems. IMPRESSION: No sonographic evidence of left or right lower extremity deep venous thrombosis.
--- NOTE | 2020-04-25 12:26 | RAD REPORT ---
EXAM DESCRIPTION: US - Lower Extremity Arterial Bilat - 04/25/2020 7:14 am CLINICAL HISTORY: leg swelling Leg pain and swelling COMPARISON: No comparisons TECHNIQUE: Bilateral lower extremity arterial Doppler examination was performed with rodolfo borges FINDINGS: Triphasic waveforms are seen throughout both lower extremity arterial systems to the level of the mary salis pedis arteries. Flow velocities and waveforms are within normal limits. No significant stenosis or occlusion. IMPRESSION: No evidence of significant peripheral vascular disease.
--- NOTE | 2020-04-27 11:42 | RAD REPORT ---
EXAM DESCRIPTION: XR Chest 2 Views CLINICAL HISTORY: COUGH TECHNIQUE: Two views of the chest are submitted. COMPARISON: None available for comparison FINDINGS: Heart: The cardiothoracic silhouette is within normal limits. Lungs: Mild bilateral peribronchial cuffing. No focal consolidation. Mediastinum: Unremarkable Pleura: No appreciable effusion. No pneumothorax. Bones: Intact Upper abdomen: Unremarkable IMPRESSION: Findings which may be related to bronchitis/bronchiolitis. No focal consolidation. Electronically signed by: Franicsco Jasso MD 04/25/2020 3:11 AM CDT Due to temporary technical issues with the PACS/Fluency reporting system, reports are being signed by the in house radiologist without review as a courtesy to ensure prompt reporting. The interpreting r adiologist is fully responsible for the content of the report.
--- NOTE | 2020-04-27 11:43 | RAD REPORT ---
EXAM DESCRIPTION: CT Angiography Chest With Intravenous Contrast CLINICAL HISTORY: The patient is 45 years old and is Female; PE cough TECHNIQUE: Axial computed tomographic angiography images of the chest with intravenous contrast. S agittal and coronal reformatted images were created and reviewed. This CT exam was performed using one or more of the following dose reduction techniques: automated exposure control, adjustment of t he mA and/or kV according to patient size, and/or use of iterative reconstruction technique. MIP re constructed images were created and reviewed. COMPARISON: CT angiography chest February 14, 2020. FINDINGS: Pulmonary arteries: No PE identified. Aorta: No acute findings. No thoracic aortic aneurysm. Lungs: No pulmonary consolidation or groundglass opacities. 4 mm nodule superior segment left lower lobe. This is unchanged in size. Pleural space: No pleural effusion or pneumothorax. Heart: Cardiomegaly. No significant pericardial effusion. No evidence of RV dysfunction. Bones/joints: No acute fracture. No dislocation. Soft tissues: Unremarkable. Lymph nodes: Unremarkable. No enlarged lymph nodes. IMPRESSION: 1. No PE identified. 2. No pulmonary consolidation or groundglass opacities. 3. 4 mm lung nodule, left lower lobe. No follow-up imaging required. Electronically signed by: Carla Thomas MD 04/25/2020 5:43 AM CDT Due to temporary technical issues with the PACS/Fluency reporting system, reports are being signed by the in house radiologist without review as a courtesy to ensure prompt reporting. The interpreting r adiologist is fully responsible for the content of the report.
== END 2020-04-25 07:28 | disposition home or self-care (01) ==
LOC: ER 01:39
DX: M54.9 Dorsalgia, unspecified (principal); M79.89 Other specified soft tissue disorders; I10 Essential (primary) hypertension; I48.91 Unspecified atrial fibrillation; Z79.82 Long term (current) use of aspirin
CPT/HCPCS: 36415; 71046; 71275; 80048; 80076; 81003; 83880; 84484; 85025; 85379; 85610; 85730; 87804; 93005; 93925; 93970; 99284; Q9967

== ENCOUNTER 2020-05-08 03:13 | Emergency (ER) | payer SELFPAY ==
--- OUTSIDE RECORDS SUMMARY | 2020-05-08 03:16 | XMS REPORT ---
:1975 Author Organization [employer] Care Team Providers Name Role Phone Lopez, Na Provider Role Unavailable Allergies, Adverse Reactions, Alerts Substance Reaction Event Type N.K.D.A. Info Not Available Non Drug Allergy Problems Problem Type Condition Code Onset Dates Condition Statu s Assessment Screening for malignant neoplasm of Z12.39 Active breast Assessment Obesity, morbid, BMI 50 or higher E66.01 Active Assessment Chronic fatigue R53.82 Active Assessment Gastroesophageal reflux disease, K21.9 Active esophagitis presence not specified Problem Depression with anxiety F41.8 Acti ve Assessment Iron deficiency anemia, unspecified D50.9 Active iron deficiency anemia type Problem Crohn's disease in remission K50.90 Active Assessment Hyperglobulinemia R77.1 Active Problem Hematuria, unspecified R31.9 Activ e Problem Urinary tract infection, site not N39.0 Active specified Problem Adult general medical exam Z00.00 A ctive Problem Iron deficiency anemia, unspecified D50.9 Active iron deficiency anemia type Problem Grieving F43.21 Active Assessment Anesthesia of skin R20.0 Active Assessment Elevated d-dimer R79.89 Active Problem Gastroesophageal reflux disease, K21.9 Active esophagitis presence not specified Assessment Vitamin D deficiency E55.9 Active Problem Vitamin D deficiency E55.9 Active Problem Multiple joint pain M25.50 Active Problem Obesity, morbid, BMI 50 or higher E66.01 Active Problem BMI 50.0-59.9, adult Z68.43 Active Assessment Depression with anxiety F41.8 Acti ve Assessment High blood pressure I10 Active Assessment Multiple joint pain M25.50 Active Assessment Crohn's disease in remission K50.90 Active Problem High blood pressure I10 Active Problem Obesity, morbid, BMI 40.0-49.9 E66.01 Active Problem Seasonal allergic rhinitis due to J30.1 Active pollen Medications Medication Code Code Instructions Start End Status Dosage System Date Date BusPIRone HCl [facility] 21095921115 10 MG Orally Active 1 tablet Three times a day Metoprolol [facility] 93540389095 50 MG Orally Active 1 ta blet Tartrate Twice a day with food Ergocalciferol [facility] 90303230082 01023 UNIT Active 1 capsule Orally once a week Paxil [facility] 50395488243 20 MG Orally Active 1 table t Once a day in the morning Humira [facility] [address]-95 Active not defined Aspirin [facility] 55543217334 81 MG Orally Active not defined Results No Known Results Summary Purpose [employer] Submission
--- OUTSIDE RECORDS SUMMARY | 2020-05-08 03:16 | XMS REPORT | Continuity of Care Document ---
:1975 Author Organization [facility] t Address [address] [place] [address] [address]. [address] [place] [address] Care Team Providers Name Role Phone Unavailable Unavailable Unavailable Problems Condition Condition Condition Status Onset Resolution Last Treating Co mments Source Name Details Category Date Date Treatment Clinician Date Obesity, Obesity, Problem [facility] - BMI BMI Memoria 40.0-49.9 40.0-49.9 l [facility] Depression Depression Diagnosis Active [facility] with with [facility] - anxiety anxiety Memoria l [facility] Seasonal Seasonal Problem Active [facility] allergic allergic [facility] - rhinitis rhinitis Memori a due to due to l pollen [facility] High blood High blood Problem Active [facility] pressure pressure [facility] - Memoria l [facility] Crohn's Crohn's Diagnosis Active [facility] disease in disease in [place] kes - remission remission Delvis dayanna l [facility] Urinary Urinary Problem Active [facility] tract tract [facility] - infection, infection, Me moria site not site not l specified specified Outp at ent Clinics Adult Adult Problem Active [facility] general general [facility] medical Memoria exam exam l [facility] Multiple Multiple Diagnosis Active [facility] joint pain joint pain [place] kes - Memoria l [facility] Hematuria, Hematuria, Problem Active [facility] unspecifie unspecifie [place] kes - d d Memoria l [facility] Chronic Chronic Diagnosis Active [facility] fatigue fatigue [facility] - Memoria l [facility] BMI BMI Problem Active [facility] 50.0-59.9, 50.0-59.9, [place] kes - adult adult Memoria l [facility] Vitamin D Vitamin D Problem Active [facility] deficiency deficiency [place] kes - Memoria l [facility] Grieving Grieving Problem Active [facility] Screening Screening Diagnosis Active [facility] for for [facility] - malignant malignant Delvis dayanna neoplasm neoplasm l of breast of breast Outp ati ent Clinics Gastroesop Gastroesop Problem Active [facility] hageal hageal [facility] - reflux reflux Memoria disease, disease, l esophagiti esophagiti Ou tpati s presence s presence en t not not Clinics specified specified Iron Iron Problem Active [facility] deficiency deficiency [place] kes - anemia, anemia, Memoria unspecifie unspecifie l d iron d iron Outpati deficiency deficiency en t anemia anemia Clinics type type Hyperglobu Hyperglobu Diagnosis Active [facility] linemia linemia [facility] Anesthesia Anesthesia Diagnosis Active [facility] of skin of skin [facility] Elevated Elevated Diagnosis Active [facility] d-dimer d-dimer [facility] Allergies, Adverse Reactions, Alerts This patient has no known allergies or adverse reactions. Medications Ordered Filled Start Stop Current Ordering Indication Dosage Frequency Signature Comments Components Source Medication Medication Date Date Medication? Clinician (SIG) Name Name Payal Moe 2018-09 2020- No Na Lopez [address] rol rol 18 11-10 [facility] - 00:00: 00:00 [facility]oria 00 :00 [facility] Paxil Paxil Yes Na Lopez [address] [facility] 4-03 in the [facility] - 00:00: morning Memoria 00 [facility] Humira Humira Yes Na Lopez not [facility] defined [facility] Aspirin Aspirin Yes Na Lopez not [facility] BusPIRone BusPIRone Yes Na Lopez [address] HCl HCl [facility] Metoprolol Metoprolol Yes Na Lopez [address] [address] Tartrate Tartrate with food [place] [facility] Procedures This patient has no known procedures. Encounters Start End Encounter Admission Attending Care Care Encounter Source Date/Time Date/Time Type Type Clinicians Facility Department ID 2020-05-01 2020-05-01 Outpatient Dolores Cavazos [id number] [facility] 09:40:00 09:40:00 [facility] Medicine Medicine [facility] 2020-02-19 2020-02-19 [facility] [id number] 16:06:00 16:06:00 t [facility] Luke s - Road [facility] Medicine Medicine Outpati ent Clinics 2019-12-12 2019-12-12 [facility] [id number] 15:41:00 15:41:[address] [place] [address] Luke s - Drive [facility] Medicine Outpati ent Clinics 2019-09-16 2019-09-16 [facility] [id number] 14:40:00 14:40:[address] [place] [address] Luke s - Drive [facility] Medicine l Medicine Outpati ent Clinics 2019-08-15 2019-08-15 [facility] [id number] 09:27:00 09:27:00 [place] [employer] s - Drive [facility] Medicine Outpati ent Clinics 2019-08-12 2019-08-12 [facility] [id number] 09:00:00 09:00:00 [place] [address] Luke s - Drive [facility] Medicine Medicine Outpati ent Clinics 2019-07-31 2019-07-31 [facility] [id number] 11:46:00 11:46:00 [place] [employer] s - Drive [facility] Medicine l Medicine Outpati ent Clinics 2019-07-29 2019-07-29 [facility] [id number] 09:40:00 09:40:00 t [place] [employer] s - Drive [facility] Medicine l Medicine Outpati ent Clinics 2019-06-02 2019-06-02 [facility] [id number] 09:38:00 09:38:00 t [facility] Clinic l Outpati ent Clinics 2019-05-31 2019-05-31 [facility] [id number] 11:30:00 11:30:00 t [facility] Clinic l Outpati ent Clinics 2018-01-19 2018-01-19 [facility] [id number] 08:11:00 08:11:00 [place] [employer] [place] - Drive [facility] Medicine l Medicine Outpati ent Clinics 2018-01-18 2018-01-18 Outpatient Dolores Cavazos [id number] 10:15:00 10:15:00 t [facility] ent Clinics 2017-12-26 2017-12-26 Outpatient Dolores Cavazos [id number] 09:30:00 09:30:00 [facility] ent Clinics Results This patient has no known results.
[2020-05-08 04:00] LABS: Absolute Lymphocytes (CBC) 3.4 K/uL (0.7-4.9); Basophils % 1.4 % (0-1.3); Hematocrit 35.9 % (36.0-45.0); Lymphocytes % 42.4 % (15.3-44.8); MPV 8.7 fL (7.6-11.3); RBC Red Blood Cell Count 4.66 M/uL (3.86-4.86)
[2020-05-08 04:14] LABS: BUN Blood Urea Nitrogen 8 mg/dL (7-18); Bicarbonate 25 mmol/L (21-32); Glucose Level 110 mg/dL (74-106); Potassium 3.8 mmol/L (3.5-5.1); Sodium Level 142 mmol/L (136-145)
--- NOTE | 2020-05-08 05:48 | EDPHYS ---
Physician Documentation [facility] Name: Dori Guardado Age: 45 yrs Sex: Female : 1975 Arrival Date: 05/08/2020 Time: 03:18 Bed 4 Private MD: Noemy Lopez ED Physician Phoenix Acevedo HPI: 05/08 03:41 This 45 yrs old Black Female presents to ER via Ambulatory with complaints of Leg pkl Swelling, Leg Pain. 03:41 The patient presents with pain, that is acute. The complaints affect the right anterior pkl thigh. Onset: The symptoms/episode began/occurred today. The patient has experienced a previous episode, last week, and the symptoms today are exactly the same. 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 - Social history:: Smoking status: Patient denies any tobacco usage or history of. ROS: 03:41 Eyes: Negative for injury, pain, redness, and discharge, ENT: Negative for injury, pkl pain, and discharge, Neck: Negative for injury, pain, and swelling, Cardiovascular: Negative for chest pain, palpitations, and edema, Respiratory: Negative for shortness of breath, cough, wheezing, and pleuritic chest pain, Abdomen/GI: Negative for abdominal pain, nausea, vomiting, diarrhea, and constipation, Back: Negative for injury and pain, : Negative for injury, bleeding, discharge, and swelling. 03:41 MS/extremity: Positive for pain, warmth, of the right anterior thigh. 03:41 Skin: Negative for rash. 03:41 Neuro: Negative for altered mental status. Exam: 03:41 Head/Face: Normocephalic, atraumatic. Eyes: Pupils equal round and reactive to light, pkl extra-ocular motions intact. Lids and lashes normal. Conjunctiva and sclera are non-icteric and not injected. Cornea within normal limits. Periorbital areas with no swelling, redness, or edema. ENT: Nares patent. No nasal discharge, no septal abnormalities noted. Tympanic membranes are normal and external auditory canals are clear. Oropharynx with no redness, swelling, or masses, exudates, or evidence of obstruction, uvula midline. Mucous membranes moist. Neck: Trachea midline, no thyromegaly or masses palpated, and no cervical lymphadenopathy. Supple, full range of motion without nuchal rigidity, or vertebral point tenderness. No Meningismus. Chest/axilla: Normal chest wall appearance and motion. Nontender with no deformity. No lesions are appreciated. Cardiovascular: Regular rate and rhythm with a normal S1 and S2. No gallops, murmurs, or rubs. Normal PMI, no JVD. No pulse deficits. Respiratory: Lungs have equal breath sounds bilaterally, clear to auscultation and percussion. No rales, rhonchi or wheezes noted. No increased work of breathing, no retractions or nasal flaring. Abdomen/GI: Soft, non-tender, with normal bowel sounds. No distension or tympany. No guarding or rebound. No evidence of tenderness throughout. Back: No spinal tenderness. No costovertebral tenderness. Full range of motion. 03:41 Musculoskeletal/extremity: Extremities: grossly normal except: noted in the right anterior thigh: 03:41 Neuro: Orientation: is normal, Mentation: is normal, Cranial nerves: grossly normal, Motor: is normal. Vital Signs: 03:30 BP 152 / 104; Pulse 78; Resp 17; Temp 98.3; Pulse Ox 97% ; Weight 124.74 kg; Height 5 rv ft. 3 in. (160.02 cm); Pain 6/10; 05:00 BP 125 / 78; Pulse 75; Resp 19; Pulse Ox 98% ; rr5 05:41 BP 118 / 78; Pulse 70; Resp 16; Pulse Ox 98% ; rr5 05:48 BP 123 / 80; Pulse 70; Resp 18; Pulse Ox 100% on R/A; ea 03:30 Body Mass Index 48.71 (124.74 kg, 160.02 cm) rv MDM: 03:32 Patient medically screened. pkl 05:45 Data reviewed: vital signs, nurses notes, lab test result(s), radiologic studies, pkl ultrasound. ED course: Discussed lab. and US results with patient. Advised to follow up with PCP in 2 to 3 days. Return if necessary. Patient understood instructions. 05/08 03:40 Order name: CBC with Diff pkl 05/08 03:40 Order name: Chem 7 pkl 05/08 03:40 Order name: D-Dimer pkl 05/08 03:41 Order name: CBC with Automated Diff; Complete Time: 04:24 EDMS 05/08 03:41 Order name: Basic Metabolic Panel; Complete Time: 04:24 EDMS 05/08 03:41 Order name: D-Dimer; Complete Time: 04:24 EDMS 05/08 03:40 Order name: Saline Lock; Complete Time: 03:56 pkl 05/08 03:40 Order name: US Extremity Venous Unilateral Ltd pkl Administered Medications: No medications were administered Disposition: 05/08/20 05:47 Discharged to Home. Impression: Pain right thigh. - Condition is Stable. - Prescriptions for Diclofenac Sodium 75 mg Oral Tablet Sustained Release - take 1 tablet by ORAL route 2 times per day; 30 tablet. - Medication Reconciliation Form, Thank You Letter, Antibiotic Education, Prescription Opioid Use form. - Follow up: Noemy Lopez MD; When: 2 - 3 days; Reason: Re-evaluation by your physician. - Problem is new. - Symptoms have improved. Signatures: Dispatcher [employer] EDPhoenix Stern MD MD pkl Rl Solis RN RN Tahir Villeda RN RN rr5 Corrections: (The following items were deleted from the chart) 05:56 05:47 05/08/2020 05:47 Discharged to Home. Impression: Pain right thigh. Condition is rr5 Stable. Forms are Medication Reconciliation Form, Thank You Letter, Antibiotic Education, Prescription Opioid Use. Follow up: Noemy Lopez; When: 2 - 3 days; Reason: Re-evaluation by your physician. Problem is new. Symptoms have improved. pkl
--- NOTE | 2020-05-08 05:48 | ER ---
Nurse's Notes [facility] Name: Dori Guardado Age: 45 yrs Sex: Female : 1975 Arrival Date: 05/08/2020 Time: 03:18 Bed 4 Private MD: Noemy Lopez Diagnosis: Pain right thigh Presentation: 05/08 03:30 Chief complaint: Patient states: RIGHT LEG PAIN. STARTING FROM THE KNEE UP TO UPPER rv LEG. DESCRIBED SHARP AND CRAMPING PAIN, 6/10 PAIN SCALE. ON AND OFF, SINCE EARLY IN THE DAY. WAS SEEN LAST WEEK FOR THE SAME COMPLAINT, ULTRASOUND OF THE LEG IS NEGATIVE FOR DVT. Coronavirus screen: Client denies travel out of the [place] in the last 14 days. Ebola Screen: No symptoms or risks identified at this time. Initial Sepsis Screen: Does the patient meet any 2 criteria? No. Patient's initial sepsis screen is negative. Does the patient have a suspected source of infection? No. Patient's initial sepsis screen is negative. Risk Assessment: Do you want to hurt yourself or someone else? Patient reports no desire to harm self or others. Onset of symptoms was May 07, 2020 at 08:00. 03:30 Method Of Arrival: Ambulatory rv 03:30 Acuity: KASH 3 rv Triage Assessment: 03:33 General: Appears comfortable, Behavior is calm, cooperative. Pain: Complains of pain in rv right leg Pain currently is 6 out of 10 on a pain scale. EENT: No signs and/or symptoms were reported regarding the EENT system. Neuro: Level of Consciousness is awake, alert, obeys commands, Oriented to person, place, time, situation. Cardiovascular: Patient's skin is warm and dry. Respiratory: Airway is patent. Respiratory: Respiratory effort is even, unlabored. Derm: Skin is intact. 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 - Social history:: Smoking status: Patient denies any tobacco usage or history of. Screenin:34 Abuse screen: Denies threats or abuse. Denies injuries from another. Nutritional rv screening: No deficits noted. Tuberculosis screening: No symptoms or risk factors identified. Fall Risk None identified. Assessment: 03:56 General: Appears uncomfortable, Behavior is appropriate for age. Pain: Complains of ea pain in right leg. Neuro: Level of Consciousness is awake, alert, obeys commands, Oriented to person, place, time, situation. Cardiovascular: Patient's skin is warm and dry. Respiratory: Airway is patent Respiratory effort is even, unlabored, Respiratory pattern is regular, symmetrical. Derm: Skin is pink, warm \T\ dry. 04:12 Reassessment: D dimer 503 called by emanuel from laboratory, ED provider aware. rr5 05:20 Reassessment: Patient appears in no apparent distress at this time. Patient is alert, rr5 oriented x 3, equal unlabored respirations, skin warm/dry/pink. back from ultrasound. 05:55 Reassessment: Patient appears in no apparent distress at this time. Patient is alert, rr5 oriented x 3, equal unlabored respirations, skin warm/dry/pink. discharge instruction given and explained without complaints made. Vital Signs: 03:30 BP 152 / 104; Pulse 78; Resp 17; Temp 98.3; Pulse Ox 97% ; Weight 124.74 kg; Height 5 rv ft. 3 in. (160.02 cm); Pain 6/10; 05:00 BP 125 / 78; Pulse 75; Resp 19; Pulse Ox 98% ; rr5 05:41 BP 118 / 78; Pulse 70; Resp 16; Pulse Ox 98% ; rr5 05:48 BP 123 / 80; Pulse 70; Resp 18; Pulse Ox 100% on R/A; ea 03:30 Body Mass Index 48.71 (124.74 kg, 160.02 cm) rv ED Course: 03:18 Patient arrived in ED. es 03:18 Noemy Lopez MD is Private Physician. es 03:32 Phoenix Acevedo MD is Attending Physician. pkl 03:32 Triage completed. rv 03:34 Arm band placed on Patient placed in the treatment room, on a stretcher, Patient rv notified of wait time. 03:34 Patient has correct armband on for positive identification. Pulse ox on. NIBP on. rv 03:41 Tang, Xiomy, RN is Primary Nurse. ea 03:57 Inserted saline lock: 20 gauge in left antecubital area, using aseptic technique. Blood ea collected. 05:47 Noemy Lopez MD is Referral Physician. pkl 05:48 No provider procedures requiring assistance completed. ea 05:49 US Extremity Venous Unilateral Ltd In Process Unspecified. EDMS 05:56 IV discontinued, intact, bleeding controlled, No redness/swelling at site. Pressure rr5 dressing applied. Administered Medications: No medications were administered Outcome: 05:47 Discharge ordered by MD. pkl 05:56 Discharged to home ambulatory. rr5 05:56 Condition: stable 05:56 Discharge instructions given to patient, Instructed on discharge instructions, follow up and referral plans. medication usage, Demonstrated understanding of instructions, follow-up care, medications, Prescriptions given X 1. 05:56 Patient left the ED. rr5 Signatures: Dispatcher [employer] EDPhoenix Stern MD MD pkl Salyer, Edna es Antunez, Elena, RN RN Rl Fonseca RN RN rv Roque, Raymond, RN RN rr5
[2020-05-08 06:10] VITALS: TEMP 98.3
[2020-05-08 06:14] VITALS: BP 123/80; O2SAT 100
--- NOTE | 2020-05-08 08:39 | RAD REPORT ---
EXAM DESCRIPTION: US - Extremity Venous Uni Ltd - 05/08/2020 5:49 am CLINICAL HISTORY: The patient is 45 years old and is Female; PAIN Extremity Venous Uni Ltd TECHNIQUE: Real-time duplex ultrasound scan of the right lower extremity veins integrating B-mode tw o-dimensional vascular structure, Doppler spectral analysis, color flow Doppler imaging and compressi on. COMPARISON: No relevant prior studies available. FINDINGS: Deep veins: Unremarkable. No DVT in the visualized common femoral, femoral, proximal d eep femoral or popliteal veins. The veins demonstrate normal color flow, are normally compressible, with normal phasic flow and/or augmentation response. Superficial veins: Unremarkable. No thrombus in the visualized great saphenous vein. Soft tissues: Anterior inferior thigh area of interest demonstrates no fluid collection. No popliteal cyst. IMPRESSION: No evidence of acute DVT, right lower extremity. Electronically signed by: Carla Thomas MD 05/08/2020 6:10 AM CDT Due to temporary technical issues with the PACS/Fluency reporting system, reports are being signed by the in house radiologist without review as a courtesy to ensure prompt reporting. The interpreting r adiologist is fully responsible for the content of the report.
== END 2020-05-08 05:56 | disposition home or self-care (01) ==
LOC: ER 03:13
DX: M79.651 Pain in right thigh (principal)
CPT/HCPCS: 36415; 80048; 85025; 85379; 93971; 99284

== ENCOUNTER 2020-05-10 13:03 | Emergency (ER) | payer SELFPAY ==
--- OUTSIDE RECORDS SUMMARY | 2020-05-10 13:05 | XMS REPORT | Continuity of Care Document ---
:1975 Author Organization [facility] Address [address] [place] [address] [address] [place] [address] Care Team Providers Name Role Phone Unavailable Unavailable Unavailable Problems Condition Condition Condition Status Onset Resolution Last Treating Co mments Source Name Details Category Date Date Treatment Clinician Date Obesity, Obesity, Problem [facility] - BMI BMI Memoria 40.0-49.9 40.0-49.9 l [facility] Depression Depression Problem Active [facility] with with [facility] - anxiety anxiety Memoria l [facility] Seasonal Seasonal Problem Active [facility] allergic allergic [facility] - rhinitis rhinitis Memori a due to due to l pollen pollen [facility] High blood High blood Problem Active [facility] pressure pressure [facility] - [facility] l [facility] Crohn's Crohn's Problem Active [facility] disease in disease in [place] kes - remission remission Delvis dayanna l [facility] Urinary Urinary Problem Active [facility] tract tract [facility] - infection, infection, Me moria site not site not l specified specified Outp ati ent Clinics Adult Adult Problem Active [facility] general general [facility] - medical medical Memoria exam exam l [facility] Multiple Multiple Problem Active [facility] joint pain joint pain [place] [facility] - Memoria l [facility] Hematuria, Hematuria, Problem Active [facility] unspecifie unspecifie [place] - d d Memoria l [facility] BMI BMI Problem Active [facility] 50.0-59.9, 50.0-59.9, [place] - adult adult Memoria l [facility] Vitamin D Vitamin D Problem Active [facility] deficiency deficiency [place] [facility] - Memoria l [facility] Grieving Grieving Problem Active [facility] Gastroesop Gastroesop Problem Active C [...] en t anemia anemia Clinics type type Allergies, Adverse Reactions, Alerts This patient has no known allergies or adverse reactions. Medications Ordered Filled Start Stop Current Ordering Indication Dosage Frequency Signature Comments Components Source Medication Medication Date Date Medication? Clinician (SIG) Name Name Pantoprazol Pantoprazol Yes Na Lopez [address] [facility] e Sodium e Sodium 8-10 [facility] - 00:00: Memoria 00 [facility] Ergocalcife Ergocalcife 2018-09 2020- Na Lopez [address] [facility] rol rol 18 11-10 [facility] - 00:00: 00:00 [facility]oria 00 :00 [facility] Paxil Paxil Yes Na Lopez [address] [facility] 4-03 in the [facility] - 00:00: morning Memoria 00 [facility] Humira Humira Yes Na Lopez not [facility] defined [facility] Aspirin Aspirin Yes Na Lopez not [facility] defined [facility] BusPIRone BusPIRone Yes Na Lopez [address] [facility] HCl HCl [facility] Metoprolol Metoprolol Yes Na Lopez [address] Tartrate Tartrate with food [place] [facility] Clinics Procedures This patient has no known procedures. Encounters Start End Encounter Admission Attending Care Care Encounter Source Date/Time Date/Time Type Type Clinicians Facility Department ID 2020-05-04 2020-05-04 Outpatient Dolores Cavazos [id number] [facility] 10:10:00 10:10:00 [facility] Family Medicine l Medicine [facility] 2020-05-01 2020-05-01 Outpatient Dolores Cavazos [id number] [facility] 09:40:00 09:40:00 [facility] Family Medicine l Medicine [facility] 2020-02-19 2020-02-19 Outpatient Dolores Cavazos [id number] [facility] 16:06:00 16:06:00 [facility] [address] [facility] Medicine Outpati ent Clinics 2019-12-12 2019-12-12 [facility] [id number] [address] 15:41:00 15:41:00 [place] [employer] [place] [facility] - [facility] Medicine l Medicine Outpati ent Clinics 2019-09-16 2019-09-16 [facility] [id number] [address] 14:40:00 14:40:00 [place] [employer] s - Drive [facility] Medicine Outpati ent Clinics 2019-08-15 2019-08-15 [facility] [id number] [address] 09:27:00 09:27:00 [place] [employer] s - [address] [facility] Medicine Outpati ent Clinics 2019-08-12 2019-08-12 [facility] [id number] 09:00:00 09:00:00 [place] [employer] [place] - [address] [facility] Medicine Outpati ent Clinics 2019-07-31 2019-07-31 [facility] [id number] [address] 11:46:00 11:46:00 [place] [employer] - Drive [facility] Medicine l Medicine Outpati ent Clinics 2019-07-29 2019-07-29 [facility] [id number] 09:40:00 09:40:00 [place] [employer] - Drive [facility] l Medicine Outpati ent Clinics 2019-06-02 2019-06-02 [facility] [id number] 09:38:00 09:38:00 [facility] 2019-05-31 2019-05-31 [facility] [id number] [address] 11:30:00 11:30:00 [facility] 2018-01-19 2018-01-19 [facility] [id number] 08:11:00 08:11:00 [place] [employer] [place] - [facility] Medicine l Medicine Outpati ent Clinics 2018-01-18 2018-01-18 [facility] [id number] 10:15:00 10:15:00 t [facility] 2017-12-26 2017-12-26 Outpatient Dolores Cavazos [id number] [facility] 09:30:00 09:30:00 [facility] ent Clinics Results This patient has no known results.
--- OUTSIDE RECORDS SUMMARY | 2020-05-10 13:06 | XMS REPORT ---
:1975 Author Organization eClinical[employer] Care Team Providers Name Role Phone Lopez, Na Provider Role Unavailable Allergies No Known Allergies Problems Problem Type Condition Code Onset Dates Condition Statu s Problem Hematuria, unspecified R31.9 Activ e Problem Urinary tract infection, site not N39.0 Active specified Problem Adult general medical exam Z00.00 A ctive Problem Iron deficiency anemia, unspecified D50.9 Active iron deficiency anemia type Problem Grieving F43.21 Active Problem Gastroesophageal reflux disease, K21.9 Active esophagitis presence not specified Problem Vitamin D deficiency E55.9 Active Problem Multiple joint pain M25.50 Active Problem Obesity, morbid, BMI 50 or higher E66.01 Active Problem BMI 50.0-59.9, adult Z68.43 Active Problem High blood pressure I10 Active Problem Obesity, morbid, BMI 40.0-49.9 E66.01 Active Problem Depression with anxiety F41.8 Acti ve Problem Seasonal allergic rhinitis due to J30.1 Active pollen Problem Crohn's disease in remission K50.90 Active Medications Medication Code Code Instructions Start End Status Dosage System Date Date Paxil [facility] 79143241935 20 MG Orally Active 1 table t Once a day in the morning Pantoprazole [facility] 03064112496 40 MG Orally May 04, Active 1 tablet Sodium Once a day 2019 Ergocalciferol [facility] 80594212450 90078 UNIT Active 1 capsule Orally once a week Humira [facility] [address]-94 Active not defined BusPIRone HCl [facility] 09223070837 10 MG Orally Active 1 tablet Three times a day Aspirin [place] 88117341159 81 MG Orally Active not defined Metoprolol [facility] 98436892544 50 MG Orally Active 1 ta blet Tartrate Twice a day with food Results No Known Results Summary Purpose eClinicalWorks Submission
--- OUTSIDE RECORDS SUMMARY | 2020-05-10 13:06 | XMS REPORT ---
[...] Status Dosage System Date Date BusPIRone HCl [facility] 14966961557 10 MG Orally Active 1 tablet Three times a day Metoprolol [facility] 54393693395 50 MG Orally Active 1 ta blet Tartrate Twice a day with food Ergocalciferol [facility] 39688049479 89737 UNIT Active 1 capsule Orally once a week Paxil [facility] 27266951943 20 MG Orally Active 1 table t Once a day in the morning Humira [facility] [address]-57 Active not defined Aspirin [facility] 08056310196 81 MG Orally Active not defined Results No Known Results Summary Purpose eClinicalWorks Submission
[2020-05-10] MEDS ORDERED: LIDOCAINE VISCOUS 2% SOLN 15 ML UDC ONE (14:40)
[2020-05-10] MEDS ORDERED: MAGNE/ALUM HYDROXD 30 ML UCUP ONE (14:40)
[2020-05-10] MEDS ORDERED: FAMOTIDINE 20 MG/2 ML VIAL IV ONE (14:40)
[2020-05-10 14:52] LABS: Absolute Lymphocytes (CBC) 2.6 K/uL (0.7-4.9); Basophils % 2.7 % (0-1.3); Hematocrit 38.2 % (36.0-45.0); Lymphocytes % 40.1 % (15.3-44.8); MPV 8.5 fL (7.6-11.3); RBC Red Blood Cell Count 4.99 M/uL (3.86-4.86)
[2020-05-10 14:53] LABS: Protime INR 1.04
[2020-05-10 15:12] LABS: ALT/SGPT 58 U/L (12-78); AST/SGOT 30 U/L (15-37); Albumin 3.4 g/dL (3.4-5.0); Alkaline Phosphatase 69 U/L (45-117); BUN Blood Urea Nitrogen 7 mg/dL (7-18); Bicarbonate 26 mmol/L (21-32); Bilirubin Direct 0.1 mg/dL (0-0.2); Bilirubin Total 0.5 mg/dL (0.2-1.0); Glucose Level 91 mg/dL (74-106); NT PRO-BNP 45 pg/mL (<125); Potassium 3.8 mmol/L (3.5-5.1); Protein, Total 8.8 g/dL (6.4-8.2); Sodium Level 141 mmol/L (136-145); Troponin (Emerg Dept Use Only) < 0.02 ng/mL (0.0-0.045)
--- NOTE | 2020-05-10 15:19 | ER ---
Nurse's Notes [facility] Name: Dori Guardado Age: 45 yrs Sex: Female : 1975 Arrival Date: 05/10/2020 Time: 13:07 Bed 13 Private MD: Diagnosis: Gastritis, unspecified Presentation: 05/10 13:11 Chief complaint: Patient states: right arm pain and swelling started today and HTN sv 183/93. Report achy feeling in midsternal chest area Denies SOB. Coronavirus screen: Client denies travel out of the [place] in the last 14 days. At this time, the client does not indicate any symptoms associated with coronavirus-19. Ebola Screen: No symptoms or risks identified at this time. Risk Assessment: Do you want to hurt yourself or someone else? Patient reports no desire to harm self or others. Onset of symptoms was May 10, 2020. 13:11 Method Of Arrival: Ambulatory sv 13:11 Acuity: KASH 3 sv 13:13 Initial Sepsis Screen: Does the patient meet any 2 criteria? No. Patient's initial sv sepsis screen is negative. Does the patient have a suspected source of infection? No. Patient's initial sepsis screen is negative. Historical: - Allergies: 13:13 No Known Allergies; sv - PMHx: 13:13 Atrial Fib; bowel obstruction; Crohn's; Hypertension; sv - PSHx: 13:13 Hysterectomy; Appendectomy; Cholecystectomy; BOWEL SX; sv - Immunization history:: Adult Immunizations up to date. - Social history:: Smoking status: Patient denies any tobacco usage or history of. Patient/guardian denies using alcohol, street drugs, The patient lives with family. - Family history:: not pertinent. Screenin:53 Abuse screen: Denies threats or abuse. Denies injuries from another. Nutritional ls4 screening: No deficits noted. Tuberculosis screening: No symptoms or risk factors identified. Fall Risk None identified. Assessment: 14:55 General: Appears in no apparent distress. comfortable, Behavior is calm, cooperative. ls4 Pain: Complains of pain in epigastric area Pain currently is 2 out of 10 on a pain scale. Quality of pain is described as aching. Neuro: No deficits noted. Cardiovascular: Denies chest pain, diaphoresis, fatigue, lightheadedness, nausea, palpitations, shortness of breath, syncope, vomiting, Capillary refill < 3 seconds Patient's skin is warm and dry. GI: No deficits noted. No signs and/or symptoms were reported involving the gastrointestinal system. : No deficits noted. No signs and/or symptoms were reported regarding the genitourinary system. Derm: No deficits noted. No signs and/or symptoms reported regarding the dermatologic system. Musculoskeletal: No deficits noted. No signs and/or symptoms reported regarding the musculoskeletal system. 15:00 Reassessment: Patient appears in no apparent distress at this time. Patient and/or ls4 family updated on plan of care and expected duration. Pain level reassessed. Patient is alert, oriented x 3, equal unlabored respirations, skin warm/dry/pink. Vital Signs: 13:13 BP 139 / 94; Pulse 63; Resp 16; Temp 98; Pulse Ox 97% ; Weight 122.47 kg; Height 5 ft. sv 3 in. (160.02 cm); 15:00 BP 150 / 102; Pulse 62; Resp 16; Pulse Ox 100% on R/A; Pain 2/10; ls4 15:58 BP 153 / 81; Pulse 66; Resp 16; Temp 98.; Pulse Ox 98% on R/A; Pain 0/10; ls4 13:13 Body Mass Index 47.83 (122.47 kg, 160.02 cm) sv ED Course: 13:07 Patient arrived in ED. ds1 13:11 Arm band placed on. sv 13:12 Triage completed. sv 13:15 Patient has correct armband on for positive identification. Bed in low position. Call ls4 light in reach. Side rails up X 1. clinical research nurse on. Pulse ox on. NIBP on. 13:15 Warm blanket given. Verbal reassurance given. Diet: Patient is NPO. ls4 13:24 Yeison Plata MD is Attending Physician. ma2 13:44 Fabiana Schaeffer, LEONA is Primary Nurse. ls4 14:16 EKG done, by ED staff, reviewed by Yeison Plata MD. dh3 14:31 Inserted saline lock: 20 gauge in left antecubital area, using aseptic technique. Blood ls4 collected. 14:31 No provider procedures requiring assistance completed. Patient maintains SpO2 ls4 saturation greater than 95% on room air. 15:21 Manual Differential Sent. ls4 15:58 IV discontinued, intact, bleeding controlled, No redness/swelling at site. Pressure ls4 dressing applied. Administered Medications: 14:10 Drug: Pepcid 20 mg Route: IVP; Site: left antecubital; ls4 14:31 Drug: GI Cocktail without - (Maalox Suspension 30 ml, Lidocaine Liquid 2 % 15 ls4 ml) Route: PO; 15:20 Follow up: Response: No adverse reaction; Marked relief of symptoms ls4 Outcome: 15:19 Discharge ordered by . ma2 15:58 Discharged to home ambulatory. ls4 15:58 Condition: good 15:58 Discharge instructions given to patient, family, Instructed on discharge instructions, follow up and referral plans. medication usage, safety practices, Demonstrated understanding of instructions, follow-up care, medications, Prescriptions given X 1. 16:30 Patient left the ED. Signatures: Carla Hess RN RN Kandi Dietz ds1 Gina Hayward RN RN Skylar Sommer 3 Yeison Plata MD MD ma2 Fabiana Schaeffer RN RN ls4 Corrections: (The following items were deleted from the chart) 13:15 13:13 122.47 kg; Height 5 ft. 3 in.; BMI: 47.8; [facility]
--- NOTE | 2020-05-10 15:19 | EDPHYS ---
Physician Documentation [facility] Name: Dori Guardado Age: 45 yrs Sex: Female : 1975 Arrival Date: 05/10/2020 Time: 13:07 Bed 13 Private MD: ED Physician Yeison Plata HPI: 05/10 14:30 This 45 yrs old Black Female presents to ER via Ambulatory with complaints of Arm/Leg ma2 Swelling, High Blood Pressure. 14:30 Onset: The symptoms/episode began/occurred gradually, 1 day(s) ago. Associated signs ma2 and symptoms: Pertinent positives: Pertinent negatives: dizziness, lightheadedness, visual changes. Severity of symptoms: At its worst the blood pressure was mild. The patient has experienced similar episodes in the past. Historical: - Allergies: 13:13 No Known Allergies; sv - PMHx: 13:13 Atrial Fib; bowel obstruction; Crohn's; Hypertension; sv - PSHx: 13:13 Hysterectomy; Appendectomy; Cholecystectomy; BOWEL SX; sv - Immunization history:: Adult Immunizations up to date. - Social history:: Smoking status: Patient denies any tobacco usage or history of. Patient/guardian denies using alcohol, street drugs, The patient lives with family. - Family history:: not pertinent. ROS: 14:30 Constitutional: Negative for fever, chills, and weight loss. ma2 14:30 All other systems are negative. Exam: 14:30 Constitutional: This is a well developed, well nourished patient who is awake, alert, ma2 and in no acute distress. Chest/axilla: Normal chest wall appearance and motion. Nontender with no deformity. No lesions are appreciated. Cardiovascular: Regular rate and rhythm with a normal S1 and S2. No gallops, murmurs, or rubs. Normal PMI, no JVD. No pulse deficits. Respiratory: Lungs have equal breath sounds bilaterally, clear to auscultation and percussion. No rales, rhonchi or wheezes noted. No increased work of breathing, no retractions or nasal flaring. Abdomen/GI: Soft, non-tender, with normal bowel sounds. No distension or tympany. No guarding or rebound. No evidence of tenderness throughout. Back: No spinal tenderness. No costovertebral tenderness. Full range of motion. Vital Signs: 13:13 BP 139 / 94; Pulse 63; Resp 16; Temp 98; Pulse Ox 97% ; Weight 122.47 kg; Height 5 ft. sv 3 in. (160.02 cm); 15:00 BP 150 / 102; Pulse 62; Resp 16; Pulse Ox 100% on R/A; Pain 2/10; ls4 15:58 BP 153 / 81; Pulse 66; Resp 16; Temp 98.; Pulse Ox 98% on R/A; Pain 0/10; ls4 13:13 Body Mass Index 47.83 (122.47 kg, 160.02 cm) sv MDM: 13:24 Patient medically screened. ma2 14:30 Differential diagnosis: hypertensive crisis, Malignant HTN. Data reviewed: vital signs, ma2 nurses notes. Counseling: I had a detailed discussion with the patient and/or guardian regarding: the historical points, exam findings, and any diagnostic results supporting the discharge/admit diagnosis, the presence of at least one elevated blood pressure reading (>120/80) during this emergency department visit, the need for outpatient follow up. Response to treatment: the patient's symptoms have resolved after treatment. 05/10 13:49 Order name: Basic Metabolic Panel; Complete Time: 15:18 nm2 05/10 13:49 Order name: CBC with Diff nm2 05/10 13:49 Order name: LFT's; Complete Time: 15:18 nm2 05/10 13:49 Order name: Magnesium; Complete Time: 15:18 nm2 05/10 13:49 Order name: NT PRO-BNP; Complete Time: 15:18 nm2 05/10 13:49 Order name: PT-INR; Complete Time: 15:18 nm2 05/10 13:49 Order name: Troponin (emerg Dept Use Only); Complete Time: 15:18 nm2 05/10 13:49 Order name: EKG; Complete Time: 13:50 ma2 05/10 13:49 Order name: Cardiac monitoring; Complete Time: 14:19 ma2 05/10 13:49 Order name: EKG - Nurse/Tech; Complete Time: 14:19 ma2 05/10 13:49 Order name: IV Saline Lock; Complete Time: 15:57 ma2 05/10 14:55 Order name: Manual Differential EDMS 05/10 13:49 Order name: Labs collected and sent; Complete Time: 15:21 [facility] 05/10 13:49 Order name: O2 Per Protocol; Complete Time: 15:21 [facility] 05/10 13:49 Order name: O2 Sat Monitoring; Complete Time: 15:21 nm2 Administered Medications: 14:10 Drug: Pepcid 20 mg Route: IVP; Site: left antecubital; ls4 14:31 Drug: GI Cocktail without - (Maalox Suspension 30 ml, Lidocaine Liquid 2 % 15 ls4 ml) Route: PO; 15:20 Follow up: Response: No adverse reaction; Marked relief of symptoms ls4 Disposition: 05/10/20 15:19 Discharged to Home. Impression: Gastritis, unspecified. - Condition is Stable. - Discharge Instructions: Food Choices for Gastroesophageal Reflux Disease, Adult, Gastritis, Adult. - Prescriptions for Pepcid 20 mg Oral Tablet - take 1 tablet by ORAL route every 12 hours for 10 days; 20 tablet. - Medication Reconciliation Form, Thank You Letter, Antibiotic Education, Prescription Opioid Use form. - Follow up: Private Physician; When: Tomorrow; Reason: Continuance of care. Signatures: Dispatcher [employer] EDCarla Ibrahim RN RN Gina Hayward RN RN Yeison Plata MD MD nm2 Fabiana Schaeffer RN RN ls4 Corrections: (The following items were deleted from the chart) 16:30 15:19 05/10/2020 15:19 Discharged to Home. Impression: Gastritis, unspecified. hb Condition is Stable. Discharge Instructions: Food Choices for Gastroesophageal Reflux Disease, Adult. Prescriptions for Pepcid 20 mg Oral Tablet - take 1 tablet by ORAL route every 12 hours for 10 days; 20 tablet. and Forms are Medication Reconciliation Form, Thank You Letter, Antibiotic Education, Prescription Opioid Use. Follow up: Private Physician; When: Tomorrow; Reason: Continuance of care. nm2
[2020-05-10 16:05] LABS: Blood Morphology Comment NOT SEEN (NOT SEEN); Platelet Estimate ADEQ
[2020-05-10 16:36] VITALS: TEMP 98
[2020-05-10 16:38] VITALS: BP 153/81; O2SAT 98
== END 2020-05-10 16:30 | disposition home or self-care (01) ==
LOC: ER 13:03
DX: K29.70 Gastritis, unspecified, without bleeding (principal); I10 Essential (primary) hypertension
CPT/HCPCS: 36415; 80048; 80076; 83735; 83880; 84484; 85025; 85610; 93005; 96374; 99285

== ENCOUNTER 2020-05-14 19:40 | Emergency (ER) | payer SELFPAY ==
--- OUTSIDE RECORDS SUMMARY | 2020-05-14 19:42 | XMS REPORT ---
[...] Status Dosage System Date Date BusPIRone HCl [facility] 16485958366 10 MG Orally Active 1 tablet Three times a day Metoprolol [facility] 94284803162 50 MG Orally Active 1 ta blet Tartrate Twice a day with food Ergocalciferol [facility] 26751344728 56712 UNIT Active 1 capsule Orally once a week Paxil [facility] 10157813136 20 MG Orally Active 1 table t Once a day in the morning Humira [facility] [address]-04 Active not defined Aspirin [facility] 40853224128 81 MG Orally Active not defined Results No Known Results Summary Purpose eClinicalWorks Submission
--- OUTSIDE RECORDS SUMMARY | 2020-05-14 19:42 | XMS REPORT | Continuity of Care Document ---
:1975 Author Organization [facility] Address [address] [place] [address] Dr. Kong [address] [place] [address] Care Team Providers Name Role Phone Unavailable Unavailable Unavailable Problems Condition Condition Condition Status Onset Resolution Last Treating Co mments Source Name Details Category Date Date Treatment Clinician Date Obesity, Obesity, Problem [facility] - BMI BMI Memoria 40.0-49.9 40.0-49.9 l [facility] Depression Depression Problem Active [facility] with with [facility] - anxiety anxiety Memoria l [facility] Seasonal Seasonal Problem Active [facility] allergic allergic [facility] - rhinitis rhinitis Memori a due to due to l pollen pollen [facility] High blood High blood Problem Active [facility] pressure pressure [facility] - Memoria l [facility] Crohn's Crohn's Problem Active [facility] disease in disease in [place] kes - remission remission Delvis dayanna l [facility] Urinary Urinary Problem Active [facility] tract tract [facility] - infection, infection, Me moria site not site not l specified specified Outp ati ent Clinics Adult Adult Problem Active [facility] general general [facility] - medical medical Memoria exam exam l [facility]ics Multiple Multiple Problem Active [facility] joint pain joint pain [place] kes - Memoria l [facility] Hematuria, Hematuria, Problem Active [facility] unspecifie unspecifie [place] kes - d d Memoria l [facility] BMI BMI Problem Active [facility] 50.0-59.9, 50.0-59.9, [place] kes - adult adult Memoria l [facility] Vitamin D Vitamin D Problem Active [facility] deficiency deficiency [place] kes - Memoria l [facility] Grieving Grieving Problem Active [facility] Gastroesop Gastroesop Problem Active [...] Sodium 8-10 [facility] - 00:00: Memoria 00 [facility] Ergocalcife Ergocalcife 2018-09 2020- Na Lopez [address] rol rol 18 11-10 [facility] - 00:00: 00:00 Memoria 00 :00 [facility] ent Clinics Paxil Paxil Yes Na Lopez [address] [facility] 4-03 in the [facility] - 00:00: morning Memoria 00 [facility] Humira Humira Yes Na Lopez not [facility] defined [facility] - [facility]oria [facility] Aspirin Aspirin Yes Na Lopez not [facility] defined [facility] - Memoria [facility] ent Clin[facility] BusPIRone BusPIRone Yes Na Lopez [address] HCl HCl [facility] ent [facility] Metoprolol Metoprolol Yes Na Lopez [address] Tartrate Tartrate with food [facility] ent Clinics Procedures This patient has no known procedures. Encounters Start End Encounter Admission Attending Care Care Encounter Source Date/Time Date/Time Type Type Clinicians Facility Department ID 2020-05-04 2020-05-04 Outpatient Dolores Cavazos [id number] [facility] 10:10:00 10:10:00 [employer] [facility] Family Medicine l Medicine [facility] 2020-05-01 2020-05-01 Outpatient Dolores Cavazos [id number] [address] 09:40:00 09:40:00 [employer] [facility] Family Medicine l Medicine [facility] 2020-02-19 2020-02-19 Outpatient Dolores Cavazos [id number] 16:06:00 16:06:00 [facility] [address] [facility] Medicine Outpati ent Clinics 2019-12-12 2019-12-12 [facility] [id number] 15:41:00 15:41:00 t [employer] [facility] - Drive [facility] Medicine l Medicine Outpati ent Clinics 2019-09-16 2019-09-16 [facility] [id number] 14:40:00 14:40:00 t [employer] s - Drive [facility] Medicine Outpati ent Clinics 2019-08-15 2019-08-15 [facility] [id number] 09:27:00 09:27:00 t [employer] s - Drive [facility] Medicine Outpati ent Clinics 2019-08-12 2019-08-12 [facility] [id number] 09:00:00 09:00:00 t [employer] - Drive [facility] Medicine Outpati ent Clinics 2019-07-31 2019-07-31 [facility] [id number] 11:46:00 11:46:00 t [employer] [place] s - Drive [facility] Medicine l Medicine Outpati ent Clinics 2019-07-29 2019-07-29 [facility] [id number] 09:40:00 09:40:00 t [employer] [place] s - Drive [facility] l Medicine Outpati ent Clinics 2019-06-02 2019-06-02 [facility] [id number] 09:38:00 09:38:00 [facility] Clin[facility] 2019-05-31 2019-05-31 [facility] [id number] 11:30:00 11:30:00 [facility] Clinics 2018-01-19 2018-01-19 [facility] [id number] 08:11:00 08:11:00 t [employer] - Drive [facility] Medicine l Medicine Outpati ent Clinics 2018-01-18 2018-01-18 [facility] [id number] 10:15:00 10:15:00 t [employer] [facility] 2017-12-26 2017-12-26 Outpatient Dolores Cavazos [id number] [facility] 09:30:00 09:30:00 [employer] [facility] ent Clinics Results This patient has no known results.
--- OUTSIDE RECORDS SUMMARY | 2020-05-14 19:42 | XMS REPORT ---
[...] End Status Dosage System Date Date Paxil [facility] 08469456376 20 MG Orally Active 1 table t Once a day in the morning Pantoprazole [facility] 79224295775 40 MG Orally May 04, Active 1 tablet Sodium Once a day 2019 Ergocalciferol [facility] 59024200961 15715 UNIT Active 1 capsule Orally once a week Humira [facility] [address]-59 Active not defined BusPIRone HCl [facility] 40378176848 10 MG Orally Active 1 tablet Three times a day Aspirin ND 04857522728 81 MG Orally Active not defined Metoprolol [facility] 68934686183 50 MG Orally Active 1 ta blet Tartrate Twice a day with food Results No Known Results Summary Purpose eClinicalWorks Submission
--- NOTE | 2020-05-14 20:29 | EDPHYS ---
Physician Documentation [facility] Name: Dori Guardado Age: 45 yrs Sex: Female : 1975 Arrival Date: 05/14/2020 Time: 19:43 Bed 17 Private MD: ED Physician Carlos Alberto Rios HPI: 05/14 20:21 This 45 yrs old Black Female presents to ER via Ambulatory with complaints of Blood mh7 Pressure Problem. 20:21 The patient has elevated blood pressure and discovered this States that blood pressure mh7 reading was 100 systolic at home tonight.. Onset: The symptoms/episode began/occurred today. Modifying factors: The symptoms are aggravated by Metoprolol was increased from 25 mg twice a day to 50 mg twice a day., The symptoms are alleviated by. Associated signs and symptoms: Pertinent negatives: chest pain, dizziness, dyspnea, headache, lightheadedness, nausea, visual changes, vomiting, weakness. Severity of symptoms: At its worst the blood pressure was 100 mm Hg, in the emergency department the blood pressure is improved, 156 mm Hg. The patient has been recently seen by a physician: the patient's primary care provider, 1 week(s) ago. Historical: - PMHx: 20:03 Atrial Fib; bowel obstruction; Crohn's; Hypertension; ls4 - PSHx: 20:03 Hysterectomy; Appendectomy; Cholecystectomy; ls4 - Immunization history:: Adult Immunizations up to date. - Social history:: Smoking status: Patient denies any tobacco usage or history of. ROS: 20:21 Constitutional: Negative for fever, chills, and weight loss, Eyes: Negative for injury, mh7 pain, redness, and discharge, ENT: Negative for injury, pain, and discharge, Neck: Negative for injury, pain, and swelling, Cardiovascular: Negative for chest pain, palpitations, and edema, Respiratory: Negative for shortness of breath, cough, wheezing, and pleuritic chest pain, Abdomen/GI: Negative for abdominal pain, nausea, vomiting, diarrhea, and constipation, Back: Negative for injury and pain, : Negative for injury, bleeding, discharge, and swelling, MS/Extremity: Negative for injury and deformity, Skin: Negative for injury, rash, and discoloration, Neuro: Negative for headache, weakness, numbness, tingling, and seizure, Psych: Negative for depression, anxiety, suicide ideation, homicidal ideation, and hallucinations, Allergy/Immunology: Negative for hives, rash, and allergies, Endocrine: Negative for neck swelling, polydipsia, polyuria, polyphagia, and marked weight changes, Hematologic/Lymphatic: Negative for swollen nodes, abnormal bleeding, and unusual bruising. Exam: 20:21 Constitutional: This is a well developed, well nourished patient who is awake, alert, mh7 and in no acute distress. Head/Face: Normocephalic, atraumatic. Eyes: Pupils equal round and reactive to light, extra-ocular motions intact. Lids and lashes normal. Conjunctiva and sclera are non-icteric and not injected. Cornea within normal limits. Periorbital areas with no swelling, redness, or edema. ENT: Nares patent. No nasal discharge, no septal abnormalities noted. Tympanic membranes are normal and external auditory canals are clear. Oropharynx with no redness, swelling, or masses, exudates, or evidence of obstruction, uvula midline. Mucous membranes moist. Neck: Trachea midline, no thyromegaly or masses palpated, and no cervical lymphadenopathy. Supple, full range of motion without nuchal rigidity, or vertebral point tenderness. No Meningismus. Chest/axilla: Normal chest wall appearance and motion. Nontender with no deformity. No lesions are appreciated. Cardiovascular: Regular rate and rhythm with a normal S1 and S2. No gallops, murmurs, or rubs. Normal PMI, no JVD. No pulse deficits. Respiratory: Lungs have equal breath sounds bilaterally, clear to auscultation and percussion. No rales, rhonchi or wheezes noted. No increased work of breathing, no retractions or nasal flaring. Abdomen/GI: Soft, non-tender, with normal bowel sounds. No distension or tympany. No guarding or rebound. No evidence of tenderness throughout. Back: No spinal tenderness. No costovertebral tenderness. Full range of motion. Skin: Warm, dry with normal turgor. Normal color with no rashes, no lesions, and no evidence of cellulitis. MS/ Extremity: Pulses equal, no cyanosis. Neurovascular intact. Full, normal range of motion. Neuro: Awake and alert, GCS 15, oriented to person, place, time, and situation. Cranial nerves II-XII grossly intact. Motor strength 5/5 in all extremities. Sensory grossly intact. Cerebellar exam normal. Normal gait. Psych: Awake, alert, with orientation to person, place and time. Behavior, mood, and affect are within normal limits. Vital Signs: 19:54 Pulse 75; Resp 16; Temp 98.6(O); Pulse Ox 98% ; Weight 122.47 kg; Height 5 ft. 3 in. ls4 (160.02 cm); Pain 0/10; 20:01 BP 156 / 95; Pulse 78; Resp 16; Temp 98.6; Pulse Ox 99% on R/A; ls4 19:54 Body Mass Index 47.83 (122.47 kg, 160.02 cm) ls4 MDM: 20:21 Patient medically screened. [facility] 20:21 Differential diagnosis: Hypotension, Medication reaction. Data reviewed: vital signs, [facility] nurses notes, old medical records. Data interpreted: Pulse oximetry: on room air is 99 %. Interpretation: normal. Counseling: I had a detailed discussion with the patient and/or guardian regarding: the historical points, exam findings, and any diagnostic results supporting the discharge/admit diagnosis, the presence of at least one elevated blood pressure reading (>120/80) during this emergency department visit, the need for outpatient follow up, to return to the emergency department if symptoms worsen or persist or if there are any questions or concerns that arise at home. Response to treatment: the patient's symptoms have resolved after treatment, the patient's blood pressure is in an acceptable range, mental status has returned to baseline, the patient no longer shows bradycardia, the patient is not short of breath, the patient is not tachycardic, the patient's pain is gone, the patient's temperature has normalized, the patient's condition has returned to base line, the patient is now symptom free. 05/15 06:37 Special discussion: I have referred the patient to see his PCP for further evaluation [facility] of high blood pressure. Administered Medications: No medications were administered Disposition: 06:37 Co-signature as Attending Physician, Carlos Alberto Rios MD. [facility] Disposition: 05/14/20 20:28 Discharged to Home. Impression: Nonspecific low blood-pressure reading. - Condition is Stable. - Discharge Instructions: Hypertension, [id number], How to Take Your Blood Pressure, [id number], Managing Your Hypertension. - Medication Reconciliation Form, Thank You Letter, Antibiotic Education, Prescription Opioid Use form. - Follow up: Private Physician; When: 1 - 2 days; Reason: Worsening of condition, Recheck today's complaints, Continuance of care, Re-evaluation by your physician. - Problem is an ongoing problem. - Symptoms have improved. Signatures: Fabiana Schaeffer RN RN ls4 Cathy Thompson RN RN vc Carlos Alberto Rios MD MD mh7 Corrections: (The following items were deleted from the chart) 05/14 20:53 20:28 05/14/2020 20:28 Discharged to Home. Impression: Nonspecific low blood-pressure vc reading. Condition is Stable. Forms are Medication Reconciliation Form, Thank You Letter, Antibiotic Education, Prescription Opioid Use. Follow up: Private Physician; When: 1 - 2 days; Reason: Worsening of condition, Recheck today's complaints, Continuance of care, Re-evaluation by your physician. Problem is an ongoing problem. Symptoms have improved. mh7
--- NOTE | 2020-05-14 20:29 | ER ---
Nurse's Notes [facility] Name: Dori Guardado Age: 45 yrs Sex: Female : 1975 Arrival Date: 05/14/2020 Time: 19:43 Bed 17 Private MD: Diagnosis: Nonspecific low blood-pressure reading Presentation: 05/14 19:54 Chief complaint: Patient states: JUNIOR BEEN TAKING THE BLOOD PRESSURE AND IT SAYS MY ls4 BLOOD PRESSURE IS REAL LOW. IT WAS 100/41. I JUST FEEL TIRED, BUT I JUST STARTED METOPROLOL AND MY DR TOLD ME TO COME SO THAT WE MAKE SURE IT ISNT REALLY THAT LOW. Coronavirus screen: At this time, the client does not indicate any symptoms associated with coronavirus-19. Ebola Screen: No symptoms or risks identified at this time. Initial Sepsis Screen: Does the patient meet any 2 criteria? No. Patient's initial sepsis screen is negative. Does the patient have a suspected source of infection? No. Patient's initial sepsis screen is negative. Risk Assessment: Do you want to hurt yourself or someone else? Patient reports no desire to harm self or others. Onset of symptoms was May 14, 2020 at 17:30. 19:54 Method Of Arrival: Ambulatory ls4 19:54 Acuity: KASH 4 ls4 Triage Assessment: 20:05 General: Appears in no apparent distress. Behavior is calm, cooperative, appropriate vc for age. Pain: Denies pain. Historical: - PMHx: 20:03 Atrial Fib; bowel obstruction; Crohn's; Hypertension; ls4 - PSHx: 20:03 Hysterectomy; Appendectomy; Cholecystectomy; ls4 - Immunization history:: Adult Immunizations up to date. - Social history:: Smoking status: Patient denies any tobacco usage or history of. Screenin:05 Abuse screen: Denies threats or abuse. Nutritional screening: No deficits noted. vc Tuberculosis screening: No symptoms or risk factors identified. Fall Risk None identified. Assessment: 20:05 General: Appears in no apparent distress. comfortable, Behavior is calm, cooperative, vc appropriate for age. Pain: Denies pain. Neuro: Level of Consciousness is awake, alert, obeys commands, Oriented to person, place, time, situation, Appropriate for age. Cardiovascular: Denies chest pain, diaphoresis, lightheadedness, Patient's skin is warm and dry. Respiratory: Airway is patent Respiratory effort is even, unlabored, Respiratory pattern is regular, symmetrical. GI: No signs and/or symptoms were reported involving the gastrointestinal system. : No signs and/or symptoms were reported regarding the genitourinary system. Vital Signs: 19:54 Pulse 75; Resp 16; Temp 98.6(O); Pulse Ox 98% ; Weight 122.47 kg; Height 5 ft. 3 in. ls4 (160.02 cm); Pain 0/10; 20:01 BP 156 / 95; Pulse 78; Resp 16; Temp 98.6; Pulse Ox 99% on R/A; ls4 19:54 Body Mass Index 47.83 (122.47 kg, 160.02 cm) 4 ED Course: 19:43 Patient arrived in ED. bp1 20:01 Triage completed. ls4 20:04 Carlos Alberto Rios MD is Attending Physician. [facility] 20:05 Arm band placed on right wrist. vc 20:05 Patient has correct armband on for positive identification. Bed in low position. Call vc light in reach. Pulse ox on. NIBP on. 20:14 Cathy Thompson, RN is Primary Nurse. vc 20:53 No provider procedures requiring assistance completed. Patient did not have IV access vc during this emergency room visit. Administered Medications: No medications were administered Outcome: 20:28 Discharge ordered by . [facility] 20:53 Patient left the ED. vc 20:53 Discharged to home ambulatory. 20:53 Condition: good 20:53 Discharge instructions given to patient. Signatures: Fabiana Schaeffer RN RN [facility] Cathy Thompson RN RN Miriam Colon Maurice, MD MD [facility]
[2020-05-14 21:24] VITALS: TEMP 98.6
[2020-05-14 21:26] VITALS: BP 156/95; O2SAT 99
== END 2020-05-14 20:53 | disposition home or self-care (01) ==
LOC: ER 19:40
DX: R03.1 Nonspecific low blood-pressure reading (principal); I10 Essential (primary) hypertension
CPT/HCPCS: 99283

== ENCOUNTER 2020-06-22 20:49 | Emergency (ER) | payer OTHER, SELFPAY ==
--- OUTSIDE RECORDS SUMMARY | 2020-06-22 20:51 | XMS REPORT | Continuity of Care Document ---
:1975 Author Organization [facility] Address [address] [place] [address] Dr. [address] [place] [address] Care Team Providers Name Role Phone Unavailable Unavailable Unavailable Problems Condition Condition Condition Status Onset Resolution Last Treating Co mments Source Name Details Category Date Date Treatment Clinician Date Obesity, Obesity, Problem [facility] - BMI BMI Memoria 40.0-49.9 40.0-49.9 l [facility] Depression Depression Problem Active [facility] with with [facility] - anxiety anxiety Memoria l [facility] Seasonal Seasonal Problem Active [facility] allergic [facility] - rhinitis rhinitis Memori a due to due to l pollen pollen [facility] High blood High blood Problem Active [facility] pressure pressure [facility] - Memoria l [facility] Crohn's Crohn's Problem Active [facility] disease in disease in [place] kes - remission remission Delvis dayanna l [facility] Urinary Urinary Problem Active [facility] tract tract [facility] - infection, infection, Me moria site not site not l specified specified Outp ati ent Clinics Adult Adult Problem Active [facility] general general [facility] - medical medical Memoria exam exam l [facility]ics Multiple Multiple Problem Active [facility] pain joint pain [place] kes - Memoria l [facility] Hematuria, Hematuria, Problem Active C [facility] unspecifie unspecifie [place] kes - d d Memoria l [facility] BMI BMI Problem Active [facility] 50.0-59.9, 50.0-59.9, [place] kes - adult adult Memoria l [facility] Vitamin D Vitamin D Problem Active [facility] deficiency deficiency [place] kes - Memoria l [facility] Grieving Grieving Problem Active [facility] Gastroesop Gastroesop Problem Active C [...] Sodium 8-10 [facility] - 00:00: Memoria 00 [facility] Ergocalcife Ergocalcife 2018-09 2020- Na Lopez [address] [facility] rol rol 18 11-10 [facility] - 00:00: 00:00 Memoria 00 :00 [facility] ent Clinics Paxil Paxil Yes Na Lopez [address] [facility] 4-03 in the [facility] - 00:00: morning Memoria 00 [facility] Humira Humira Yes Na Lopez not [facility] defined [facility] - [facility]oria [facility] Aspirin Aspirin Yes Na Lopez not [facility] defined [facility] - Memoria [facility] Clinics BusPIRone BusPIRone Yes Na Lopez [address] HCl HCl [facility] ent [facility] Metoprolol Metoprolol Yes Na Lopez [address] Tartrate Tartrate with food [facility] ent Clinics Procedures This patient has no known procedures. Encounters Start End Encounter Admission Attending Care Care Encounter Source Date/Time Date/Time Type Type Clinicians Facility Department ID 2020-05-04 2020-05-04 Outpatient Dolores Cavazos [id number] [facility] 10:10:00 10:10:00 CDP [facility] Family Medicine l Medicine [facility] 2020-05-01 2020-05-01 Outpatient Dolores Cavazos [id number] 09:40:00 09:40:00 CDP [facility] Family Medicine l Medicine [facility] 2020-02-19 2020-02-19 Outpatient Dolores Cavazos [id number] 16:06:00 16:06:00 [facility] [address] [facility] Medicine Outpati ent Clinics 2019-12-12 2019-12-12 [facility] [id number] 15:41:00 15:41:00 [place] [facility] - Drive [facility] Medicine l Medicine Outpati ent Clinics 2019-09-16 2019-09-16 [facility] [id number] 14:40:00 14:40:00 [place] [employer] s - Drive [facility] Medicine Outpati ent Clinics 2019-08-15 2019-08-15 [facility] [id number] 09:27:00 09:27:00 [place] [employer] s - Drive [facility] Medicine Outpati ent Clinics 2019-08-12 2019-08-12 [facility] [id number] 09:00:00 09:00:00 [place] [employer] [place] - Drive [facility] Medicine Outpati ent Clinics 2019-07-31 2019-07-31 [facility] [id number] 11:46:00 11:46:00 [place] [employer] s - Drive [facility] Medicine l Medicine Outpati ent Clinics 2019-07-29 2019-07-29 [facility] [id number] 09:40:00 09:40:00 [place] [employer] s - Drive [facility] l Medicine Outpati ent Clinics 2019-06-02 2019-06-02 [facility] [id number] 09:38:00 09:38:00 [facility] 2019-05-31 2019-05-31 [facility] [id number] 11:30:00 11:30:00 [facility] 2018-01-19 2018-01-19 [facility] [id number] [address] 08:11:00 08:11:00 [place] [employer] [place] - Drive [facility] Medicine l Medicine Outpati ent Clinics 2018-01-18 2018-01-18 [facility] [id number] 10:15:00 10:15:00 t CDP [facility] 2017-12-26 2017-12-26 Outpatient Dolores Cavazos [id number] [facility] 09:30:00 09:30:00 CDP [facility] ent Clinics Results This patient has no known results.
--- OUTSIDE RECORDS SUMMARY | 2020-06-22 20:52 | XMS REPORT ---
[...] End Status Dosage System Date Date Paxil [facility] [id number] 20 MG Orally Active 1 table t Once a day in the morning Pantoprazole [facility] [id number] 40 MG Orally May 04, Active 1 tablet Sodium Once a day 2019 Ergocalciferol [facility] [id number] 16991 UNIT Active 1 capsule Orally once a week Humira [facility] [address]-85 Active not defined BusPIRone HCl [facility] 55392124030 10 MG Orally Active 1 tablet Three times a day Aspirin ND 87338137307 81 MG Orally Active not defined Metoprolol [facility] 81084728690 50 MG Orally Active 1 ta blet Tartrate Twice a day with food Results No Known Results Summary Purpose eClinicalWorks Submission
--- OUTSIDE RECORDS SUMMARY | 2020-06-22 20:52 | XMS REPORT ---
[...] Status Dosage System Date Date BusPIRone HCl [facility] 44968536372 10 MG Orally Active 1 tablet Three times a day Metoprolol [facility] 76484650646 50 MG Orally Active 1 ta blet Tartrate Twice a day with food Ergocalciferol [facility] [id number] 08247 UNIT Active 1 capsule Orally once a week Paxil [facility] 43828102834 20 MG Orally Active 1 table t Once a day in the morning Humira [facility] [address]-00 Active not defined Aspirin [facility] 24912027131 81 MG Orally Active not defined Results No Known Results Summary Purpose eClinicalWorks Submission
[2020-06-22] MEDS ORDERED: HYDRALAZINE HCL 20 MG/ML VIAL ONE (21:35)
[2020-06-22 21:42] LABS: Absolute Lymphocytes (CBC) 2.9 K/uL (0.7-4.9); Basophils % 1.6 % (0-1.3); Hematocrit 35.8 % (36.0-45.0); Lymphocytes % 39.1 % (15.3-44.8); MPV 8.9 fL (7.6-11.3); Protime INR 1.01; RBC Red Blood Cell Count 4.59 M/uL (3.86-4.86)
[2020-06-22 21:54] LABS: BUN Blood Urea Nitrogen 10 mg/dL (7-18); Bicarbonate 24 mmol/L (21-32); Glucose Level 86 mg/dL (74-106); Magnesium 1.9 mg/dL (1.8-2.4); NT PRO-BNP 172 pg/mL (<125); Potassium 3.6 mmol/L (3.5-5.1); Sodium Level 143 mmol/L (136-145); Troponin (Emerg Dept Use Only) < 0.02 ng/mL (0.0-0.045)
[2020-06-22 22:19] LABS: Blood Morphology Comment NOT SEEN (NOT SEEN); Platelet Estimate ADEQ
--- NOTE | 2020-06-22 22:26 | ER ---
Nurse's Notes [facility] Name: Dori Guardado Age: 45 yrs Sex: Female : 1975 Arrival Date: 06/22/2020 Time: 20:50 Bed 4 Private MD: Noemy Lopez Diagnosis: Hypertensive Urgency Presentation: 06/22 21:00 Chief complaint: Patient states: her blood pressure was high 175/101 and she had some bb tingling to her right arm which has gotten better but the right side of her face feels irritated, denies chest pain. Coronavirus screen: cough unrelated to allergies, Client presents with at least one sign or symptom that may indicate coronavirus-19. Standard/surgical mask placed on the client. Ebola Screen: No symptoms or risks identified at this time. Initial Sepsis Screen: Does the patient meet any 2 criteria? No. Patient's initial sepsis screen is negative. Does the patient have a suspected source of infection? No. Patient's initial sepsis screen is negative. Risk Assessment: Do you want to hurt yourself or someone else? Patient reports no desire to harm self or others. Onset of symptoms was June 22, 2020. 21:00 Method Of Arrival: Ambulatory bb 21:00 Acuity: KASH 3 bb 21:06 Note pt states symptoms started approx an hour prior to arrival. 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 - Social history:: Smoking status: Patient denies any tobacco usage or history of. Patient/guardian denies using alcohol, street drugs. Screenin:06 Abuse screen: Denies threats or abuse. Denies injuries from another. Nutritional mg2 screening: No deficits noted. Tuberculosis screening: No symptoms or risk factors identified. Fall Risk None identified. 21:06 VAN Screening: Arm Drift: Patient shows no arm weakness. Patient is VAN negative. bb Visual Disturbance: No visual disturbance noted. Aphasia: No aphasia noted. Assessment: 21:05 General: Appears in no apparent distress. comfortable, Behavior is calm, cooperative. mg2 Pain: Complains of pain in chest. Neuro: Level of Consciousness is awake, alert, obeys commands, Oriented to person, place, time, situation. Neuro: Reports headache frontal area. Cardiovascular: Capillary refill < 3 seconds Patient's skin is warm and dry. Respiratory: Airway is patent Respiratory effort is even, unlabored, Respiratory pattern is regular, symmetrical. GI: No signs and/or symptoms were reported involving the gastrointestinal system. : No signs and/or symptoms were reported regarding the genitourinary system. EENT: Reports nasal congestion. Derm: Skin is intact, is healthy with good turgor, Skin is pink, warm \T\ dry. normal. Musculoskeletal: Circulation, motion, and sensation intact. Capillary refill < 3 seconds. 22:44 Reassessment: Patient appears in no apparent distress at this time. Patient states mg2 feeling better. Patient states symptoms have improved. Vital Signs: 21:00 BP 180 / 109; Pulse 73; Resp 16 S; Temp 97.9(O); Pulse Ox 95% on R/A; Weight 122.47 kg bb (R); Height 5 ft. 3 in. (160.02 cm) (R); Pain 0/10; 21:06 BP 164 / 102; Pulse 72; Resp 16; Pulse Ox 96% on R/A; sg 21:32 BP 157 / 75; Pulse 65; Resp 16; Pulse Ox 98% on R/A; sg 22:02 BP 145 / 90; Pulse 60; Resp 16; Pulse Ox 99% on R/A; sg 21:00 Body Mass Index 47.83 (122.47 kg, 160.02 cm) bb ED Course: 20:50 Patient arrived in ED. am2 20:50 Noemy Lopez MD is Private Physician. am2 21:02 Triage completed. bb 21:04 Arm band placed on Patient placed in an exam room, on a stretcher, on cardiac technician, bb on pulse oximetry. EKG completed in triage. Results shown to MD. 21:05 Sergio Coelho, RN is Primary Nurse. mg2 21:06 Patient has correct armband on for positive identification. mg2 21:06 No provider procedures requiring assistance completed. mg2 21:06 EKG done, by ED staff, reviewed by Omero SON. sg 21:07 Omero Sterling PA is PHCP. jr8 21:07 Phoenix Acevedo MD is Attending Physician. jr8 21:[address] via stretcher. sg 21:23 Inserted saline lock: 22 gauge in right hand, using aseptic technique. Blood collected. mg2 21:34 Head Brain Wo Cont In Process Unspecified. EDMS 21:50 XRAY Chest (1 view) In Process Unspecified. EDMS 22:26 Noemy Lopez MD is Referral Physician. jr8 22:45 IV discontinued, intact, bleeding controlled, No redness/swelling at site. Pressure mg2 dressing applied. Administered Medications: 22:23 Not Given (Physician Discretion): hydrALAZINE 10 mg IV at calculated rate once mg2 Outcome: 22:26 Discharge ordered by MD. jr8 22:45 Discharged to home ambulatory, with family. mg2 22:45 Condition: stable 22:45 Discharge instructions given to patient, Instructed on discharge instructions, follow up and referral plans. Demonstrated understanding of instructions, follow-up care. 22:45 Patient left the ED. mg2 Signatures: Dispatcher [employer] Rivera Florentino, RN RN Precious Echevarria, RN RN Omero Barajas PA PA jr8 Madelin Kemp Michele RN RN mg2
--- NOTE | 2020-06-22 22:27 | EDPHYS ---
Physician Documentation [facility] Name: Dori Guardado Age: 45 yrs Sex: Female : 1975 Arrival Date: 06/22/2020 Time: 20:50 Bed 4 Private MD: Noemy Lopez ED Physician Phoenix Acevedo HPI: 06/22 21:33 This 45 yrs old Black Female presents to ER via Ambulatory with complaints of High jr8 Blood Pressure, face tingling. 21:33 The pt presents to the ER c/o HTN and R sided face tingling. The patient states that at jr8 about 8pm, the R side of her face felt like "someone was rubbing sandpaper on it" and she decided to take her BP. Stated that her BP was elevated at home and decided to go to the ED. Takes Metoprolol 50 mg BID with her last dose at 7pm. Denies visual changes, dizziness, cp, sob, etc. Calm and in no distress at this time.. 21:40 Onset: The symptoms/episode began/occurred acutely, today. Severity of symptoms: At its jr8 worst the blood pressure was moderate. The patient has not experienced similar symptoms in the past. The patient has not recently seen a physician. 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 - Social history:: Smoking status: Patient denies any tobacco usage or history of. Patient/guardian denies using alcohol, street drugs. ROS: 21:40 Eyes: Negative for injury, pain, redness, and discharge, ENT: Negative for injury, jr8 pain, and discharge, Neck: Negative for injury, pain, and swelling, Cardiovascular: Negative for chest pain, palpitations, and edema, Respiratory: Negative for shortness of breath, cough, wheezing, and pleuritic chest pain, Abdomen/GI: Negative for abdominal pain, nausea, vomiting, diarrhea, and constipation, Back: Negative for injury and pain, MS/Extremity: Negative for injury and deformity, Skin: Negative for injury, rash, and discoloration. 21:40 Neuro: Positive for numbness. Exam: 21:40 Head/Face: Normocephalic, atraumatic. Eyes: Pupils equal round and reactive to light, jr8 extra-ocular motions intact. Lids and lashes normal. Conjunctiva and sclera are non-icteric and not injected. Cornea within normal limits. Periorbital areas with no swelling, redness, or edema. ENT: Nares patent. No nasal discharge, no septal abnormalities noted. Tympanic membranes are normal and external auditory canals are clear. Oropharynx with no redness, swelling, or masses, exudates, or evidence of obstruction, uvula midline. Mucous membranes moist. Neck: Trachea midline, no thyromegaly or masses palpated, and no cervical lymphadenopathy. Supple, full range of motion without nuchal rigidity, or vertebral point tenderness. No Meningismus. Cardiovascular: Regular rate and rhythm with a normal S1 and S2. No gallops, murmurs, or rubs. Normal PMI, no JVD. No pulse deficits. Respiratory: Lungs have equal breath sounds bilaterally, clear to auscultation and percussion. No rales, rhonchi or wheezes noted. No increased work of breathing, no retractions or nasal flaring. Abdomen/GI: Soft, non-tender, with normal bowel sounds. No distension or tympany. No guarding or rebound. No evidence of tenderness throughout. Back: No spinal tenderness. No costovertebral tenderness. Full range of motion. Skin: Warm, dry with normal turgor. Normal color with no rashes, no lesions, and no evidence of cellulitis. MS/ Extremity: Pulses equal, no cyanosis. Neurovascular intact. Full, normal range of motion. Neuro: Awake and alert, GCS 15, oriented to person, place, time, and situation. Cranial nerves II-XII grossly intact. Motor strength 5/5 in all extremities. Sensory grossly intact. Cerebellar exam normal. Normal gait. Vital Signs: 21:00 BP 180 / 109; Pulse 73; Resp 16 S; Temp 97.9(O); Pulse Ox 95% on R/A; Weight 122.47 kg bb (R); Height 5 ft. 3 in. (160.02 cm) (R); Pain 0/10; 21:06 BP 164 / 102; Pulse 72; Resp 16; Pulse Ox 96% on R/A; sg 21:32 BP 157 / 75; Pulse 65; Resp 16; Pulse Ox 98% on R/A; sg 22:02 BP 145 / 90; Pulse 60; Resp 16; Pulse Ox 99% on R/A; sg 21:00 Body Mass Index 47.83 (122.47 kg, 160.02 cm) bb MDM: 21:07 Patient medically screened. [facility] 22:25 Data reviewed: vital signs, nurses notes, lab test result(s), EKG, radiologic studies, [facility] CT scan, plain films. Data interpreted: Pulse oximetry: on room air is 99 %. Interpretation: normal. Counseling: I had a detailed discussion with the patient and/or guardian regarding: the historical points, exam findings, and any diagnostic results supporting the discharge/admit diagnosis, lab results, radiology results, the need for outpatient follow up, a family practitioner, to return to the emergency department if symptoms worsen or persist or if there are any questions or concerns that arise at home. Response to treatment: the patient's symptoms have resolved after treatment. 06/22 21:08 Order name: Basic Metabolic Panel; Complete Time: :06/22 21:08 Order name: CBC with Diff; Complete Time: 22:06/22 21:08 Order name: Magnesium; Complete Time: :06/22 21:08 Order name: NT PRO-BNP; Complete Time: :55 06/22 21:08 Order name: PT-INR; Complete Time: :55 06/22 21:08 Order name: Troponin (emerg Dept Use Only); Complete Time: :06/22 21:05 Order name: EKG - Nurse/Tech; Complete Time: 21:05 mg2 06/22 21:08 Order name: IV Saline Lock; Complete Time: 21:23 06/22 21:08 Order name: Cardiac monitoring; Complete Time: 21:23 06/22 21:08 Order name: XRAY Chest (1 view) 06/22 21:29 Order name: Head Brain Wo Cont EDIA 06/22 21:53 Order name: Manual Differential; Complete Time: 22:21 [facility] 06/22 21:08 Order name: Labs collected and sent; Complete Time: 21:23 8 06/22 21:08 Order name: O2 Per Protocol; Complete Time: 21:23 8 06/22 21:08 Order name: O2 Sat Monitoring; Complete Time: : Administered Medications: 22:23 Not Given (Physician Discretion): hydrALAZINE 10 mg IV at calculated rate once mg2 Disposition: 06/23 01:17 Co-signature as Attending Physician, Phoenix Acevedo MD. pkl Disposition: 06/22/20 22:26 Discharged to Home. Impression: Hypertensive Urgency . - Condition is Stable. - Discharge Instructions: Hypertension. - Medication Reconciliation Form, Thank You Letter, Antibiotic Education, Prescription Opioid Use form. - Follow up: Noemy Lopez MD; When: 2 - 3 days; Reason: Recheck today's complaints, Continuance of care, Re-evaluation by your physician. - Problem is new. - Symptoms have improved. Signatures: Dispatcher [employer] EDIA Phoenix Acevedo MD MD pkl Precious Felton RN RN bb Omero Sterling PA PA jr8 Santos Grant, WAD LUBRICATOR-C WAD LUBRICATOR-Cla1 Sergio Coelho, LEONA RN mg2 Corrections: (The following items were deleted from the chart) 06/22 21:27 21:09 Head Brain Wo Cont+CT.RAD.BRZ ordered. [facility] 22:45 22:26 06/22/2020 22:26 Discharged to Home. Impression: Hypertensive Urgency . Condition mg2 is Stable. Forms are Medication Reconciliation Form, Thank You Letter, Antibiotic Education, Prescription Opioid Use. Follow up: Noemy Lopez; When: 2 - 3 days; Reason: Recheck today's complaints, Continuance of care, Re-evaluation by your physician. Problem is new. Symptoms have improved. jr8
[2020-06-22 23:01] VITALS: TEMP 97.9
[2020-06-22 23:08] VITALS: BP 157/75; O2SAT 98
--- NOTE | 2020-06-23 08:23 | RAD REPORT ---
EXAM DESCRIPTION: Elder Single View06/22/2020 9:50 pm CLINICAL HISTORY: Shortness of breath COMPARISON: April 2020 FINDINGS: The lungs appear clear of acute infiltrate. The heart is mildly enlarged IMPRESSION: No acute abnormalities displayed
--- NOTE | 2020-06-23 10:07 | RAD REPORT ---
EXAM DESCRIPTION: CT - Head Brain Wo Cont - 06/23/2020 2:40 am CLINICAL HISTORY: 45 years Female pain TECHNIQUE: Contiguous axial CT images obtained through the brain without IV contrast. Coronal and sa gittal reformats also provided. This CT exam was performed according to our departmental dose-optimization program, which includes on e or more of the following dose reduction techniques: automated exposure control, adjustment of the m A and/or kV according to patient size, and/or use of iterative reconstruction technique. COMPARISON: No prior exams provided for comparison. FINDINGS: There is no intracranial hemorrhage, extra-axial collection, or acute transcortical infarc tion. The ventricles are normal in size and contour without mass-effect or midline shift. Osseous structures are normal. The paranasal sinuses and mastoid air cells are clear. IMPRESSION: No acute intracranial abnormalities. Electronically signed by: Pao Paul MD 06/22/2020 9:54 PM CDT Due to temporary technical issues with the PACS/Fluency reporting system, reports are being signed by the in house radiologist without review as a courtesy to ensure prompt reporting. The interpreting r adiologist is fully responsible for the content of the report.
--- NOTE | 2020-06-23 10:44 | EKG ---
Test Date: 2020-06-22 Test Time: 21:05:10 Shift Supervisor Film Processing: SWG MEASUREMENT RESULTS: Intervals: Rate: 64 LA: 172 QRSD: 84 QT: 398 QTc: 410 Tatum: P: 51 LA: 172 QRS: -1 T: 34 INTERPRETIVE STATEMENTS: Normal sinus rhythm Normal ECG Compared to ECG 05/10/2020 14:16:29 Sinus bradycardia no longer present First degree AV block no longer present Electronically Signed On 06-23-20 10:44:09 CDT by Matthew Lofton
[2020-06-26] MEDS ORDERED: MAGNE/ALUM HYDROXD 30 ML UCUP ONE (15:03)
[2020-06-26] MEDS ORDERED: LIDOCAINE VISCOUS 2% SOLN 15 ML UDC ONE (15:03)
[2020-06-26] MEDS ORDERED: AZITHROMYCIN 250 MG TAB ONE (15:29)
== END 2020-06-22 22:45 | disposition home or self-care (01) ==
LOC: ER 20:49
DX: I16.0 Hypertensive urgency (principal); I10 Essential (primary) hypertension; I48.91 Unspecified atrial fibrillation; Z79.82 Long term (current) use of aspirin
CPT/HCPCS: 36415; 70450; 71045; 80048; 83735; 83880; 84484; 85025; 85610; 93005; 99284; J0360

== ENCOUNTER 2020-06-26 14:31 | Emergency (ER) | payer OTHER ==
--- NOTE | 2020-06-26 15:16 | EDPHYS ---
Physician Documentation [facility] Name: Dori Guardado Age: 45 yrs Sex: Female : 1975 Arrival Date: 06/26/2020 Time: 14:32 Bed 4 Private MD: Noemy Lopez ED Physician Branden Negron HPI: 06/26 15:11 This 45 yrs old Black Female presents to ER via Ambulatory with complaints of Chest snw Pain, Ear Pain. 15:11 Onset: The symptoms/episode began/occurred gradually, 2 day(s) ago, and became snw persistent. Associated signs and symptoms: Pertinent positives: cough, burning sensation in chest, cough, ear fullness, nasal congestion, Pertinent negatives: fever, shortness of breath, wheezing. Modifying factors: The patient symptoms are alleviated by nothing. It is unknown whether or not the patient has had similar symptoms in the past. It is unknown whether or not the patient has recently seen a physician. pt states she has not had any episodes of A. fib in 15 years and has not been medicated for arrhythmia. 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 - Social history:: Smoking status: Patient denies any tobacco usage or history of. ROS: 15:09 Constitutional: Negative for fever, chills, and weight loss, Eyes: Negative for injury, snw pain, redness, and discharge. 15:09 Neck: Negative for injury, pain, and swelling. 15:09 Respiratory: Negative for shortness of breath, cough, wheezing, and pleuritic chest pain, Abdomen/GI: Negative for abdominal pain, nausea, vomiting, diarrhea, and constipation, Back: Negative for injury and pain, : Negative for injury, bleeding, discharge, and swelling, MS/Extremity: Negative for injury and deformity, Skin: Negative for injury, rash, and discoloration, Neuro: Negative for headache, weakness, numbness, tingling, and seizure, Psych: Negative for depression, anxiety, suicide ideation, homicidal ideation, and hallucinations. 15:09 ENT: Positive for sinus congestion, ear fullness. 15:09 Cardiovascular: Positive for burning sensation to esophagus. Exam: 15:08 Constitutional: This is a well developed, well nourished patient who is awake, alert, snw and in no acute distress. Head/Face: Normocephalic, atraumatic. Eyes: Pupils equal round and reactive to light, extra-ocular motions intact. Lids and lashes normal. Conjunctiva and sclera are non-icteric and not injected. Cornea within normal limits. Periorbital areas with no swelling, redness, or edema. 15:08 Chest/axilla: Normal chest wall appearance and motion. Nontender with no deformity. No lesions are appreciated. 15:08 Respiratory: Lungs have equal breath sounds bilaterally, clear to auscultation and percussion. No rales, rhonchi or wheezes noted. No increased work of breathing, no retractions or nasal flaring. Abdomen/GI: Soft, non-tender, with normal bowel sounds. No distension or tympany. No guarding or rebound. No evidence of tenderness throughout. Back: No spinal tenderness. No costovertebral tenderness. Full range of motion. Skin: Warm, dry with normal turgor. Normal color with no rashes, no lesions, and no evidence of cellulitis. MS/ Extremity: Pulses equal, no cyanosis. Neurovascular intact. Full, normal range of motion. Neuro: Awake and alert, GCS 15, oriented to person, place, time, and situation. Cranial nerves II-XII grossly intact. Motor strength 5/5 in all extremities. Sensory grossly intact. Cerebellar exam normal. Normal gait. Psych: Awake, alert, with orientation to person, place and time. Behavior, mood, and affect are within normal limits. 15:08 ENT: TM's: dullness, bilaterally, Nose: Nasal mucosa: edematous, Mouth: is normal, Posterior pharynx: is normal. 15:08 Cardiovascular: Rate: bradycardic, Rhythm: regular, Pulses: no pulse deficits are appreciated, Edema: is not appreciated. Vital Signs: 14:39 BP 150 / 94; Pulse 59; Resp 16 S; Temp 98.2(O); Pulse Ox 98% on R/A; Weight 122.47 kg jd3 (R); Height 5 ft. 3 in. (160.02 cm) (R); Pain 5/10; 14:59 BP 136 / 75; Pulse 52; Resp 17; Pulse Ox 97% ; jl7 15:16 BP 123 / 77; Pulse 83; Resp 15; Pulse Ox 99% ; Pain 3/10; jl7 14:39 Body Mass Index 47.83 (122.47 kg, 160.02 cm) jd3 MDM: 14:42 Patient medically screened. snw 15:16 Data reviewed: vital signs, nurses notes. Data interpreted: Pulse oximetry: on room air snw is 97 %. Interpretation: normal. Counseling: I had a detailed discussion with the patient and/or guardian regarding: the historical points, exam findings, and any diagnostic results supporting the discharge/admit diagnosis, the presence of at least one elevated blood pressure reading (>120/80) during this emergency department visit, the need for outpatient follow up, for definitive care, to return to the emergency department if symptoms worsen or persist or if there are any questions or concerns that arise at home. Special discussion: Based on the history and exam findings, there is no indication for further emergent testing or inpatient evaluation. I discussed with the patient/guardian the need to see the primary care provider for further evaluation of the symptoms. 10 14:42 Order name: EKG; Complete Time: 14:42 snw 06/26 14:42 Order name: EKG - Nurse/Tech; Complete Time: 14:48 snw EC:01 Rate is 53 beats/min. Rhythm is regular. QRS [place] is Normal. GA interval is normal. QRS snw interval is normal. QT interval is normal. T waves are Normal. No ST changes noted. Clinical impression: Sinus bradycardia. Administered Medications: 14:56 Drug: GI Cocktail without - (Maalox Suspension 30 ml, Lidocaine Liquid 2 % 15 jl7 ml) Route: PO; 15:16 Follow up: Response: No adverse reaction; Pain is decreased jl7 15:20 Drug: Zithromax 500 mg Route: PO; aa5 15:52 Follow up: Response: No adverse reaction iw Disposition: 16:16 Co-signature as Attending Physician, Branden Negron MD. rn Disposition: 06/26/20 15:14 Discharged to Home. Impression: Acute upper respiratory infection, unspecified, Gastro-esophageal reflux disease. - Condition is Stable. - Discharge Instructions: Upper Respiratory Infection, Pediatric, Viral Respiratory Infection, Rehydration, Adult. - Prescriptions for Pepcid 20 mg Oral Tablet - take 1 tablet by ORAL route every 12 hours for 5 days; 10 tablet. Zyrtec 10 mg Oral Tablet - take 1 tablet by ORAL route once daily As needed; 20 tablet. Tessalon Perles 100 mg Oral Capsule - take 1 capsule by ORAL route every 8 hours As needed; 15 capsule. Zithromax 500 mg Oral Tablet - take 1 tablet by ORAL route once daily for 5 days; 5 tablet. - Work release form, Medication Reconciliation Form, Thank You Letter, Antibiotic Education, Prescription Opioid Use form. - Follow up: Noemy Lopez MD; When: 2 - 3 days; Reason: Recheck today's complaints, Continuance of care, Re-evaluation by your physician. Follow up: Emergency Department; When: As needed; Reason: Worsening of condition. Signatures: Kim Geiger, SANDBLASTER STONE-C SANDBLASTER STONE-Csnw Staci Tran, Branden Stratton RN, MD MD rn Calderon, Audri RN RN aa5 Tila Correa RN RN jl7 Jose R Lovell RN RN jd3 Corrections: (The following items were deleted from the chart) 15:15 15:14 06/26/2020 15:14 Discharged to Home. Impression: Acute upper respiratory snw infection, unspecified. Condition is Stable. Forms are Medication Reconciliation Form, Thank You Letter, Antibiotic Education, Prescription Opioid Use. Follow up: Noemy Lopez; When: 2 - 3 days; Reason: Recheck today's complaints, Continuance of care, Re-evaluation by your physician. Follow up: Emergency Department; When: As needed; Reason: Worsening of condition. snw 15:52 15:15 06/26/2020 15:14 Discharged to Home. Impression: Acute upper respiratory iw infection, unspecified; Gastro-esophageal reflux disease. Condition is Stable. Forms are Medication Reconciliation Form, Thank You Letter, Antibiotic Education, Prescription Opioid Use. Follow up: Noemy Lopez; When: 2 - 3 days; Reason: Recheck today's complaints, Continuance of care, Re-evaluation by your physician. Follow up: Emergency Department; When: As needed; Reason: Worsening of condition. cristina
--- NOTE | 2020-06-26 15:16 | ER ---
Nurse's Notes [facility] Name: Dori Guardado Age: 45 yrs Sex: Female : 1975 Arrival Date: 06/26/2020 Time: 14:32 Bed 4 Private MD: Noemy Lopez Diagnosis: Acute upper respiratory infection, unspecified;Gastro-esophageal reflux disease Presentation: 06/26 14:37 Chief complaint: Patient states: "i am having a burning in my chest and my ears are jd3 congested.". Coronavirus screen: At this time, the client does not indicate any symptoms associated with coronavirus-19. Ebola Screen: Patient negative for fever greater than or equal to 101.5 degrees Fahrenheit, and additional compatible Ebola Virus Disease symptoms. Initial Sepsis Screen: Does the patient meet any 2 criteria? No. Patient's initial sepsis screen is negative. Does the patient have a suspected source of infection? No. Patient's initial sepsis screen is negative. Risk Assessment: Do you want to hurt yourself or someone else? Patient reports no desire to harm self or others. Onset of symptoms was June 22, 2020. 14:37 Method Of Arrival: Ambulatory jd3 14:37 Acuity: KASH 3 jd3 Triage Assessment: 15:52 General: Appears in no apparent distress. Behavior is calm, cooperative. 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 - Social history:: Smoking status: Patient denies any tobacco usage or history of. Screenin:58 Abuse screen: Denies threats or abuse. Denies injuries from another. Nutritional jl7 screening: No deficits noted. Tuberculosis screening: No symptoms or risk factors identified. Fall Risk None identified. Assessment: 14:50 General: Appears uncomfortable, Behavior is calm, cooperative. Pain: Complains of pain aa5 in chest Pain does not radiate. Pain currently is 5 out of 10 on a pain scale. Quality of pain is described as burning, Is continuous. Neuro: Level of Consciousness is awake, alert, obeys commands, Oriented to person, place, time, situation. Respiratory: Airway is patent Respiratory effort is even, unlabored, Respiratory pattern is regular, symmetrical, Denies shortness of breath. GI: Abdomen is round. : No signs and/or symptoms were reported regarding the genitourinary system. EENT: Reports pain in right ear. Derm: Skin is dry, Skin is normal, Skin temperature is warm. Musculoskeletal: Range of motion: intact in all extremities. 15:20 Reassessment: Patient states feeling better. Pt reports burning sensation to chest has aa5 improved. Pt sitting up in bed, appears comfortable. . 15:20 Neuro: Level of Consciousness is awake, alert, obeys commands, Oriented to person, aa5 place, time, situation. Respiratory: Airway is patent Respiratory effort is even, unlabored, Respiratory pattern is regular, symmetrical. Derm: Skin is dry, Skin is normal, Skin temperature is warm. 15:51 Reassessment: Patient appears in no apparent distress at this time. Patient and/or iw family updated on plan of care and expected duration. Pain level reassessed. Patient is alert, oriented x 3, equal unlabored respirations, skin warm/dry/pink. Pain: Denies pain. Pain does not radiate. Pain began. Cardiovascular: Patient's skin is warm and dry. Vital Signs: 14:39 BP 150 / 94; Pulse 59; Resp 16 S; Temp 98.2(O); Pulse Ox 98% on R/A; Weight 122.47 kg jd3 (R); Height 5 ft. 3 in. (160.02 cm) (R); Pain 5/10; 14:59 BP 136 / 75; Pulse 52; Resp 17; Pulse Ox 97% ; jl7 15:16 BP 123 / 77; Pulse 83; Resp 15; Pulse Ox 99% ; Pain 3/10; jl7 14:39 Body Mass Index 47.83 (122.47 kg, 160.02 cm) jd3 ED Course: 14:32 Patient arrived in ED. ag5 14:33 Noemy Lopez MD is Private Physician. ag5 14:39 Triage completed. jd3 14:40 Arm band placed on. jd3 14:41 Kim [facility]C [facility]. snw 14:42 Branden Negron MD is Attending Physician. snw 14:48 Hansa Brito, RN is Primary Nurse. aa5 14:58 Patient has correct armband on for positive identification. Placed in gown. Bed in low jl7 position. Call light in reach. Side rails up X 1. government services professional on. Pulse ox on. NIBP on. 14:58 Patient maintains SpO2 saturation greater than 95% on room air. jl7 14:58 EKG done, by ED staff, reviewed by Kim GEORGE. jl7 15:14 Noemy Lopez MD is Referral Physician. snw 15:51 No provider procedures requiring assistance completed. Patient did not have IV access iw during this emergency room visit. Administered Medications: 14:56 Drug: GI Cocktail without - (Maalox Suspension 30 ml, Lidocaine Liquid 2 % 15 jl7 ml) Route: PO; 15:16 Follow up: Response: No adverse reaction; Pain is decreased jl7 15:20 Drug: Zithromax 500 mg Route: PO; aa5 15:52 Follow up: Response: No adverse reaction iw Outcome: 15:14 Discharge ordered by . snw 15:51 Discharged to home ambulatory. iw 15:51 Condition: good 15:51 Discharge instructions given to patient, Instructed on discharge instructions, follow up and referral plans. medication usage, Demonstrated understanding of instructions, follow-up care, medications, Prescriptions given X 4. 15:52 Patient left the ED. iw Signatures: Kim Geiger FNP-C PROGRAMMER ENGINEERING AND SCIENTIFIC-Csnw Staci Tran RN RN iw Hansa Brito, RN RN aa5 Tila Correa RN RN jl7 Jose R Lovell RN RN jd3 Pelon Renteria ag5
[2020-06-26 16:04] VITALS: TEMP 98.2
[2020-06-26 16:15] VITALS: BP 123/77; O2SAT 99
--- NOTE | 2020-06-27 08:21 | EKG ---
Test Date: 2020-06-26 Test Time: 14:52:12 Stopper Maker: ZOIE MEASUREMENT RESULTS: Intervals: Rate: 53 OR: 172 QRSD: 82 QT: 416 QTc: 390 Spangler: P: 42 OR: 172 QRS: -15 T: 6 INTERPRETIVE STATEMENTS: Sinus bradycardia Otherwise normal ECG Compared to ECG 06/22/2020 21:05:10 Sinus rhythm no longer present Electronically Signed On 06-27-20 08:19:25 CDT by Matthew Lofton
--- OUTSIDE RECORDS SUMMARY | 2020-07-01 20:49 | XMS REPORT | Continuity of Care Document ---
:1975 Author Organization [facility] Address [address] [place] [address] [address] [place] [address] Care Team Providers Name Role Phone Unavailable Unavailable Unavailable Problems Condition Condition Condition Status Onset Resolution Last Treating Co mments Source Name Details Category Date Date Treatment Clinician Date Obesity, Obesity, Problem [facility] BMI BMI Memoria 40.0-49.9 40.0-49.9 l [facility] Depression Depression Problem Active [facility] with with [facility] - anxiety anxiety Memoria l [facility] Seasonal Seasonal Problem Active [facility] allergic allergic [facility] - rhinitis rhinitis Memori a due to due to l pollen pollen [facility] High blood High blood Problem Active [facility] pressure pressure [facility] - [facility]oria l [facility] Crohn's Crohn's Problem Active [facility] disease in disease in [place] kes - remission remission Delvis dayanna l [facility] Urinary Urinary Problem Active [facility] tract tract [facility] - infection, infection, Me moria site not site not l specified specified Outp ati ent Clinics Adult Adult Problem Active [facility] Memoria exam exam l [facility] Multiple Multiple Problem Active [facility] joint pain joint pain [place] [facility] - Memoria l [facility] Hematuria, Hematuria, Problem Active [facility] unspecifie unspecifie [place] kes - d d Memoria l [facility] BMI BMI Problem Active [facility] 50.0-59.9, 50.0-59.9, [place] kes - adult adult Memoria l [facility] Vitamin D Vitamin D Problem Active [facility] deficiency deficiency [place] [facility] - Memoria l [facility] Grieving Grieving Problem Active [facility] Gastroesop Gastroesop Problem Active [...] Sodium 8-10 [facility] - 00:00: Memoria 00 [facility] Ergocalcife Ergocalcife 2018-09 2020- Na Lopez [address] [facility] rol rol 18 11-10 [facility] - 00:00: 00:00 Memoria 00 :00 [facility]ics Paxil Paxil Yes Na Lopez [address] [facility] 4-03 in the [facility] - 00:00: morning Memoria 00 [facility] Humira Humira Yes Na Lopez not [facility] defined [facility] - [facility] Aspirin Aspirin Yes Na Lopez not [facility] defined [facility] BusPIRone BusPIRone Yes Na Lopez [address] [facility] [address] HCl HCl [facility] Metoprolol Metoprolol Yes Na Lopez [address] [address] Tartrate Tartrate with food [facility] ent Clinics Procedures This patient has no known procedures. Encounters Start End Encounter Admission Attending Care Care Encounter Source Date/Time Date/Time Type Type Clinicians Facility Department ID 2020-05-04 2020-05-04 Outpatient Dolores Cavazos [id number] [facility] 10:10:00 10:10:00 [employer] [facility] l Medicine [facility] 2020-05-01 2020-05-01 Outpatient Dolores Cavazos [id number] [facility] 09:40:00 09:40:00 [employer] [facility] l Medicine [facility] 2020-02-19 2020-02-19 Outpatient Dolores Cavazos [id number] [facility] 16[facility]06:00 16:06:00 [facility] [address] [facility] Medicine Outpati ent Clinics 2019-12-12 2019-12-12 [facility] [id number] 15:41:00 15:41:00 t [employer] [facility] - [facility] Medicine l Medicine Outpati ent Clinics 2019-09-16 2019-09-16 [facility] [id number] [address] 14:40:00 14:40:00 t [facility] [employer] [facility] - [address] [facility] Medicine Outpati ent Clinics 2019-08-15 2019-08-15 [facility] [id number] 09:27:00 09:27:00 t [employer] s - [address] [facility] Medicine Outpati ent Clinics 2019-08-12 2019-08-12 [facility] [id number] [address] 09:00:00 09:00:00 t [employer] s - [facility] Medicine Outpati ent Clinics 2019-07-31 2019-07-31 [facility] [id number] 11:46:00 11:46:00 t [employer] s - [address] [facility] Medicine l Medicine Outpati ent Clinics 2019-07-29 2019-07-29 [facility] [id number] 09:40:00 09:40:00 t [employer] s - Drive [facility] l Medicine Outpati ent Clinics 2019-06-02 2019-06-02 [facility] [id number] 09:38:00 09:38:00 [facility] 2019-05-31 2019-05-31 [facility] [id number] 11:30:00 11:30:00 t [facility] 2018-01-19 2018-01-19 [facility] [id number] 08:11:00 08:11:00 t [employer] s - Drive [facility] Medicine l Medicine Outpati ent Clinics 2018-01-18 2018-01-18 [facility] [id number] 10:15:00 10:15:00 t [employer] [facility] 2017-12-26 2017-12-26 Outpatient Dolores Cavazos [id number] [facility] 09:30:00 09:30:[address] [facility] ent Clinics Results This patient has no known results.
--- OUTSIDE RECORDS SUMMARY | 2020-07-01 20:49 | XMS REPORT ---
[...] Status Dosage System Date Date BusPIRone HCl [facility] 02881807504 10 MG Orally Active 1 tablet Three times a day Metoprolol [facility] 30800561155 50 MG Orally Active 1 ta blet Tartrate Twice a day with food Ergocalciferol [facility] 75675400603 34830 UNIT Active 1 capsule Orally once a week Paxil [facility] 09786359527 20 MG Orally Active 1 table t Once a day in the morning Humira [facility] [address]-70 Active not defined Aspirin [facility] 63941091866 81 MG Orally Active not defined Results No Known Results Summary Purpose eClinicalWorks Submission
--- OUTSIDE RECORDS SUMMARY | 2020-07-01 20:49 | XMS REPORT ---
[...] Status Dosage System Date Date Paxil [facility] 04314133963 20 MG Orally Active 1 table t Once a day in the morning Pantoprazole [facility] 35709056440 40 MG Orally May 04, Active 1 tablet Sodium Once a day 2019 Ergocalciferol [facility] 11340110234 70181 UNIT Active 1 capsule Orally once a week Humira [facility] [address]-74 Active not defined BusPIRone HCl [facility] 10386304650 10 MG Orally Active 1 tablet Three times a day Aspirin [place] 38156319210 81 MG Orally Active not defined Metoprolol [facility] 08773166109 50 MG Orally Active 1 ta blet Tartrate Twice a day with food Results No Known Results Summary Purpose eClinicalWorks Submission
== END 2020-06-26 15:52 | disposition home or self-care (01) ==
LOC: ER 14:31
DX: J06.9 Acute upper respiratory infection, unspecified (principal); K21.9 Gastro-esophageal reflux disease without esophagitis; I10 Essential (primary) hypertension; I48.91 Unspecified atrial fibrillation; Z79.82 Long term (current) use of aspirin
CPT/HCPCS: 93005; 99285

== ENCOUNTER 2020-07-01 19:24 | Emergency (ER) | payer OTHER ==
[2020-07-01 20:32] LABS: Absolute Lymphocytes (CBC) 3.3 K/uL (0.7-4.9); Basophils % 2.6 % (0-1.3); Hematocrit 37.6 % (36.0-45.0); RBC Red Blood Cell Count 4.86 M/uL (3.86-4.86)
[2020-07-01] MEDS ORDERED: MAGNE/ALUM HYDROXD 30 ML UCUP ONE ×2 (20:41→20:46)
[2020-07-01] MEDS ORDERED: LIDOCAINE VISCOUS 2% SOLN 15 ML UDC ONE ×2 (20:42→20:46)
[2020-07-01 20:49] LABS: ALT/SGPT 57 U/L (12-78); AST/SGOT 31 U/L (15-37); Albumin 3.5 g/dL (3.4-5.0); Alkaline Phosphatase 75 U/L (45-117); BUN Blood Urea Nitrogen 7 mg/dL (7-18); Bicarbonate 27 mmol/L (21-32); Bilirubin Direct 0.1 mg/dL (0-0.2); Bilirubin Total 0.5 mg/dL (0.2-1.0); Glucose Level 84 mg/dL (74-106); Lipase 43 U/L (73-393); Potassium 3.7 mmol/L (3.5-5.1); Protein, Total 9.2 g/dL (6.4-8.2); Sodium Level 142 mmol/L (136-145)
--- NOTE | 2020-07-01 23:12 | ER ---
Nurse's Notes [facility] Name: Dori Guardado Age: 45 yrs Sex: Female : 1975 Arrival Date: 07/01/2020 Time: 19:27 Bed 5 Private MD: Noemy Lopez Diagnosis: Gastritis, unspecified, without bleeding Presentation: 07/01 19:47 Chief complaint: Patient states: Upper abdominal pain since 1400 today. Denies N/V. ca1 Reports diarrhea. Hx of Crohn's, GERD. Coronavirus screen: Client denies travel out of the [place] in the last 14 days. diarrhea, Client presents with at least one sign or symptom that may indicate coronavirus-19. Standard/surgical mask placed on the client. Provider contacted for isolation considerations. Ebola Screen: Patient negative for fever greater than or equal to 101.5 degrees Fahrenheit, and additional compatible Ebola Virus Disease symptoms Patient denies exposure to infectious person. Patient denies travel to an Ebola-affected area in the 21 days before illness onset. No symptoms or risks identified at this time. Initial Sepsis Screen: Does the patient meet any 2 criteria? No. Patient's initial sepsis screen is negative. Does the patient have a suspected source of infection? No. Patient's initial sepsis screen is negative. Risk Assessment: Do you want to hurt yourself or someone else? Patient reports no desire to harm self or others. Onset of symptoms was July 01, 2020. 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 - Social history:: Smoking status: Patient denies any tobacco usage or history of. Screenin:24 Abuse screen: Denies threats or abuse. Denies injuries from another. Nutritional rv screening: No deficits noted. Tuberculosis screening: No symptoms or risk factors identified. Fall Risk None identified. Assessment: 20:24 General: Appears comfortable, Behavior is calm, cooperative. Pain: Complains of pain in rv right upper quadrant. Neuro: Level of Consciousness is awake, alert, obeys commands, Oriented to person, place, time, situation. Cardiovascular: Patient's skin is warm and dry. Respiratory: Airway is patent Breath sounds are clear bilaterally. GI: Bowel sounds present X 4 quads. Abd is soft and non tender X 4 quads. Derm: Skin is intact. 21:30 Reassessment: Patient appears in no apparent distress at this time. Patient is alert, rr5 oriented x 3, equal unlabored respirations, skin warm/dry/pink. but still have the bloated feeling, ED provider aware with order for CT of abdomen Patient states symptoms have improved. 22:15 Reassessment: Patient appears in no apparent distress at this time. Patient is alert, rr5 oriented x 3, equal unlabored respirations, skin warm/dry/pink. awaiting for CT result. 23:52 Reassessment: Patient appears in no apparent distress at this time. Patient is alert, rr5 oriented x 3, equal unlabored respirations, skin warm/dry/pink. discharge instruction given and explained without complaints made. Patient states feeling better. Patient states symptoms have improved. Vital Signs: 19:47 BP 125 / 80; Pulse 75; Resp 15 S; Temp 97.3(TE); Pulse Ox 100% on R/A; Weight 123.83 kg ca1 (R); Height 5 ft. 3 in. (160.02 cm) (R); Pain 6/10; 20:31 BP 144 / 94; Pulse 72; Resp 16; Pulse Ox 99% on R/A; rv 21:31 BP 141 / 103; Pulse 75; Resp 19; Pulse Ox 99% ; Pain 4/10; rr5 22:30 BP 151 / 89; Pulse 83; Resp 17; Pulse Ox 98% ; rr5 23:53 BP 136 / 85; Pulse 70; Resp 16; Pulse Ox 99% ; rr5 19:47 Body Mass Index 48.36 (123.83 kg, 160.02 cm) ca1 ED Course: 19:27 Patient arrived in ED. am2 19:27 Noemy Lopez MD is Private Physician. am2 19:35 Vinh Gilmore MD is Attending Physician. tw4 19:49 Triage completed. ca1 19:50 Arm band placed on right wrist. ca1 19:53 Tahir Villeda, RN is Primary Nurse. rr5 20:24 Initial lab(s) drawn, by me, sent to lab. Inserted saline lock: 18 gauge in right rv forearm, using aseptic technique. Blood collected. 20:25 Patient has correct armband on for positive identification. Pulse ox on. NIBP on. rv 22:02 Inserted saline lock: 18 gauge in left antecubital area, using aseptic technique. rr5 22:38 CT Abd/Pelvis - IV Contrast Only In Process Unspecified. EDMS 23:10 Noemy Lopez MD is Referral Physician. tw4 23:53 No provider procedures requiring assistance completed. IV discontinued, intact, rr5 bleeding controlled, No redness/swelling at site. Pressure dressing applied. Administered Medications: 20:31 Drug: GI Cocktail without - (Maalox Suspension 30 ml, Lidocaine Liquid 2 % 15 rv ml) Route: PO; 21:30 Follow up: Response: No adverse reaction rr5 23:45 Drug: ProTONIX 40 mg Route: IVP; Site: left antecubital; rv 23:54 Follow up: Response: No adverse reaction rr5 Outcome: 23:11 Discharge ordered by . tw4 23:53 Discharged to home ambulatory. rr5 23:53 Condition: stable 23:53 Discharge instructions given to patient, Instructed on discharge instructions, follow up and referral plans. medication usage, Demonstrated understanding of instructions, follow-up care, medications, Prescriptions given X 1. 23:54 Patient left the ED. rr5 Signatures: Dispatcher [employer] EDNV Madelin Kemp am2 Vinh Gilmore MD MD tw4 Rl Solis RN RN rv Tahir Villeda, RN RN rr5 Kerline Omer RN RN ca1
--- NOTE | 2020-07-01 23:12 | EDPHYS ---
Physician Documentation [facility] Name: Dori Guardado Age: 45 yrs Sex: Female : 1975 Arrival Date: 07/01/2020 Time: 19:27 Bed 5 Private MD: Noemy Lopez ED Physician Vinh Gilmore HPI: 07/01 20:07 This 45 yrs old Black Female presents to ER via Ambulatory with complaints of Abdominal tw4 Pain, Abdominal Swelling. 20:07 The patient presents with abdominal pain in the epigastric area, in the right upper tw4 quadrant. Onset: The symptoms/episode began/occurred today. The symptoms do not radiate. Associated signs and symptoms: none. The symptoms are described as sharp. Modifying factors: The symptoms are alleviated by nothing, the symptoms are aggravated by nothing. Severity of pain: At its worst the pain was moderate in the emergency department the pain is unchanged. The patient has not experienced similar symptoms in the past. 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 - Social history:: Smoking status: Patient denies any tobacco usage or history of. ROS: 20:07 Constitutional: Negative for fever, chills, and weight loss, Eyes: Negative for injury, tw4 pain, redness, and discharge, Cardiovascular: Negative for chest pain, palpitations, and edema, Respiratory: Negative for shortness of breath, cough, wheezing, and pleuritic chest pain. 20:07 Back: Negative for injury and pain, MS/Extremity: Negative for injury and deformity, Skin: Negative for injury, rash, and discoloration, Neuro: Negative for headache, weakness, numbness, tingling, and seizure. 20:07 Abdomen/GI: Positive for abdominal pain, Negative for diarrhea, constipation, abdominal cramps. Exam: 20:07 Constitutional: This is a well developed, well nourished patient who is awake, alert, tw4 and in no acute distress. Head/Face: Normocephalic, atraumatic. Chest/axilla: Normal chest wall appearance and motion. Nontender with no deformity. No lesions are appreciated. Cardiovascular: Regular rate and rhythm with a normal S1 and S2. No gallops, murmurs, or rubs. Normal PMI, no JVD. No pulse deficits. Respiratory: Lungs have equal breath sounds bilaterally, clear to auscultation and percussion. No rales, rhonchi or wheezes noted. No increased work of breathing, no retractions or nasal flaring. Back: No spinal tenderness. No costovertebral tenderness. Full range of motion. Skin: Warm, dry with normal turgor. Normal color with no rashes, no lesions, and no evidence of cellulitis. MS/ Extremity: Pulses equal, no cyanosis. Neurovascular intact. Full, normal range of motion. Neuro: Awake and alert, GCS 15, oriented to person, place, time, and situation. Cranial nerves II-XII grossly intact. Motor strength 5/5 in all extremities. Sensory grossly intact. Cerebellar exam normal. Normal gait. 20:07 Abdomen/GI: Inspection: abdomen appears normal, Bowel sounds: normal, Palpation: moderate abdominal tenderness, in the epigastric area and right upper quadrant. Vital Signs: 19:47 BP 125 / 80; Pulse 75; Resp 15 S; Temp 97.3(TE); Pulse Ox 100% on R/A; Weight 123.83 kg ca1 (R); Height 5 ft. 3 in. (160.02 cm) (R); Pain 6/10; 20:31 BP 144 / 94; Pulse 72; Resp 16; Pulse Ox 99% on R/A; rv 21:31 BP 141 / 103; Pulse 75; Resp 19; Pulse Ox 99% ; Pain 4/10; rr5 22:30 BP 151 / 89; Pulse 83; Resp 17; Pulse Ox 98% ; rr5 23:53 BP 136 / 85; Pulse 70; Resp 16; Pulse Ox 99% ; rr5 19:47 Body Mass Index 48.36 (123.83 kg, 160.02 cm) ca1 MDM: 19:51 Patient medically screened. tw4 10/08 01:59 Data reviewed: vital signs, nurses notes. Data interpreted: Pulse oximetry: tw4 Interpretation: normal. Counseling: I had a detailed discussion with the patient and/or guardian regarding: the historical points, exam findings, and any diagnostic results supporting the discharge/admit diagnosis. Special discussion: I discussed with the patient/guardian in detail that at this point there is no indication for admission to the hospital. It is understood, however, that if the symptoms persist or worsen the patient needs to return immediately for re-evaluation. 07/01 19:36 Order name: Basic Metabolic Panel; Complete Time: 21:03 4 07/01 19:36 Order name: CBC with Diff; Complete Time: 21:4 07/01 19:36 Order name: Hepatic Function; Complete Time: 21:03 4 07/01 19:36 Order name: Lipase; Complete Time: 21:03 4 07/01 21:30 Order name: CT Abd/Pelvis - IV Contrast Only tw4 07/01 19:36 Order name: IV Saline Lock; Complete Time: 20:31 tw4 07/01 19:36 Order name: Labs collected and sent; Complete Time: 20:31 4 Administered Medications: 07/01 20:31 Drug: GI Cocktail without - (Maalox Suspension 30 ml, Lidocaine Liquid 2 % 15 rv ml) Route: PO; 21:30 Follow up: Response: No adverse reaction rr5 23:45 Drug: ProTONIX 40 mg Route: IVP; Site: left antecubital; rv 23:54 Follow up: Response: No adverse reaction rr5 Disposition: 07/01/20 23:11 Discharged to Home. Impression: Gastritis, unspecified, without bleeding. - Condition is Stable. - Discharge Instructions: Gastritis, Adult. - Prescriptions for Protonix 40 mg Oral Tablet - take 1 tablet by ORAL route once daily; 30 tablet. - Medication Reconciliation Form, Thank You Letter, Antibiotic Education, Prescription Opioid Use form. - Follow up: Noemy Lopez MD; When: Upon discharge from the Emergency Department; Reason: Recheck today's complaints, Continuance of care, Re-evaluation by your physician. - Problem is new. - Symptoms have improved. Signatures: Dispatcher [employer] Vinh Jung MD MD tw4 Rl Solis, RN RN rv Tahir Villeda, RN RN rr5 Kerline Omer RN RN ca1 Corrections: (The following items were deleted from the chart) 23:54 23:11 07/01/2020 23:11 Discharged to Home. Impression: Gastritis, unspecified, without rr5 bleeding. Condition is Stable. Forms are Medication Reconciliation Form, Thank You Letter, Antibiotic Education, Prescription Opioid Use. Follow up: Noemy Lopez; When: Upon discharge from the Emergency Department; Reason: Recheck today's complaints, Continuance of care, Re-evaluation by your physician. Problem is new. Symptoms have improved. tw4
[2020-07-01] MEDS ORDERED: PANTOPRAZOLE 40 MG INJ ONE (23:57)
[2020-07-02 01:16] VITALS: TEMP 97.3
[2020-07-02 01:27] VITALS: BP 136/85; O2SAT 99
--- NOTE | 2020-07-02 10:43 | RAD REPORT ---
EXAM DESCRIPTION: CT - Abdomen Pelvis W Contrast - 07/02/2020 6:51 am CLINICAL HISTORY: 45 years Female ABD PAIN COMPARISON: November 04, 2019 TECHNIQUE: Images were obtained in axial, sagittal, and coronal planes. Intravenous contrast was adm inistered. This exam was performed according to our departmental dose-optimization program which includes use of Automated Exposure Control, adjustment of the mA and/or kV according to patient size and/or use o f iterative reconstruction technique. FINDINGS: No abnormality involving the liver, spleen, pancreas, or adrenal glands bilaterally. Prior cholecystectomy. No obstructing renal or ureteral calculi bilaterally. No hydronephrosis bilaterally. Unremarkable tanisha dder. Ileocolic anastomosis on the right. Suspected prior resection of appendix. Two focal regions of mucos al thickening versus spasm transverse colon. These findings are best identified on coronal series 502 image 34 as well as 37. No bowel obstruction or perforation. No abnormality in lower lungs bilaterally. No acute osseous abnormality. No dilatation of abdominal aorta. No adenopathy or abnormal fluid collection seen. Unremarkable gonzalez l vein. IMPRESSION: Prior ileocolic anastomosis with no definite bowel obstruction or perforation. Two focal regions of abnormal mucosal thickening versus spasm transverse colon. Correlation with colonoscopy s uggested for further characterization. No additional abnormality seen. Electronically signed by: Christina Patel MD 07/01/2020 10:56 PM CDT Due to temporary technical issues with the PACS/Fluency reporting system, reports are being signed by the in house radiologist without review as a courtesy to ensure prompt reporting. The interpreting r adiologist is fully responsible for the content of the report.
--- OUTSIDE RECORDS SUMMARY | 2020-07-02 22:35 | XMS REPORT ---
[...] End Status Dosage System Date Date Paxil [facility] 53002895182 20 MG Orally Active 1 table t Once a day in the morning Pantoprazole [facility] 16805219202 40 MG Orally May 04, Active 1 tablet Sodium Once a day 2019 Ergocalciferol [facility] 78690382839 46775 UNIT Active 1 capsule Orally once a week Humira [facility] [address]-78 Active not defined BusPIRone HCl [facility] 89142861868 10 MG Orally Active 1 tablet Three times a day Aspirin ND 52768683169 81 MG Orally Active not defined Metoprolol [facility] 74980158170 50 MG Orally Active 1 ta blet Tartrate Twice a day with food Results No Known Results Summary Purpose eClinicalWorks Submission
--- OUTSIDE RECORDS SUMMARY | 2020-07-02 22:35 | XMS REPORT ---
[...] Dosage System Date Date BusPIRone HCl [facility] 37193987352 10 MG Orally Active 1 tablet Three times a day Metoprolol [facility] 15513718033 50 MG Orally Active 1 ta blet Tartrate Twice a day with food Ergocalciferol [facility] 56297974729 79693 UNIT Active 1 capsule Orally once a week Paxil [facility] 61138545169 20 MG Orally Active 1 table t Once a day in the morning Humira [facility] [address]-05 Active not defined Aspirin [facility] 75227361585 81 MG Orally Active not defined Results No Known Results Summary Purpose eClinicalWorks Submission
--- OUTSIDE RECORDS SUMMARY | 2020-07-02 22:35 | XMS REPORT | Continuity of Care Document ---
:1975 Author Organization [facility] Address [address] [place] [address] [address] [place] [address] Care Team Providers Name Role Phone Unavailable Unavailable Unavailable Problems Condition Condition Condition Status Onset Resolution Last Treating Co mments Source Name Details Category Date Date Treatment Clinician Date Obesity, Obesity, Problem [facility] BMI BMI Memoria 40.0-49.9 40.0-49.9 l [facility] Depression Depression Problem Active [facility] with with [facility] - anxiety anxiety Memoria l [facility] Seasonal Seasonal Problem Active [facility] allergic allergic [facility] - rhinitis rhinitis Memori a due to due to l pollen pollen [facility] High blood High blood Problem Active [facility] pressure pressure [facility]oria l [facility] Crohn's Crohn's Problem Active [facility] disease in disease in [place] kes - remission remission Delvis dayanna l [facility] Urinary Urinary Problem Active [facility] tract tract [facility] - infection, infection, Me moria site not site not l specified specified Outp ati ent Clinics Adult Adult Problem Active [facility] general general [facility] - medical medical Memoria exam exam l [facility] Multiple Multiple Problem Active [facility] joint pain joint pain [place] [facility] - Memoria l [facility] Hematuria, Hematuria, Problem Active [facility] unspecifie unspecifie [place] [facility]es - d d Memoria l [facility] BMI BMI Problem Active [facility] 50.0-59.9, 50.0-59.9, [place] - adult adult Memoria l [facility] Vitamin D Vitamin D Problem Active [facility] deficiency deficiency [place] [facility] - Memoria l [facility] Grieving Grieving Problem [facility] Gastroesop Gastroesop Problem Active [...] Sodium 8-10 [facility] - 00:00: Memoria 00 [facility] Ergocalcife Ergocalcife 2018-09 2020- Na Lopez [address] [facility] rol rol 18 11-10 [facility] - 00:00: 00:00 Memoria 00 :00 [facility] Paxil Paxil Yes Na Lopez [address] [facility] 4-03 in the [facility] - 00:00: morning Memoria 00 [facility] Humira Humira Yes Na Lopez not [facility] defined [facility] Aspirin Aspirin Yes Na Lopez not [facility] defined [facility] BusPIRone BusPIRone Yes Na Lopez [address] [facility] [facility] HCl HCl [facility] Metoprolol Metoprolol Yes Na Lopez [address] Tartrate Tartrate with food [place] [facility] Clinics Procedures This patient has no known procedures. Encounters Start End Encounter Admission Attending Care Care Encounter Source Date/Time Date/Time Type Type Clinicians Facility Department ID 2020-05-04 2020-05-04 Outpatient Dolores Cavazos [id number] [facility] 10:10:00 10:10:00 [employer] [facility] 2020-05-01 2020-05-01 Outpatient Dolores Cavazos [id number] [facility] 09:40:00 09:40:00 [employer] [facility] Medicine [facility] 2020-02-19 2020-02-19 Outpatient Dolores Cavazos [id number] 16:06:00 16:06:00 [facility] [address] [facility] Medicine Outpati ent Clinics 2019-12-12 2019-12-12 [facility] [id number] [facility] 15:41:00 15:41:00 [place] [employer] [facility] - Drive [facility] Medicine l Medicine Outpati ent Clinics 2019-09-16 2019-09-16 [facility] [id number] 14:40:00 14:40:00 [place] [employer] s - Drive [facility] Medicine Outpati ent Clinics 2019-08-15 2019-08-15 [facility] [id number] 09:27:00 09:27:00 [place] [employer] s - Drive [facility] Medicine Outpati ent Clinics 2019-08-12 2019-08-12 [facility] [id number] 09:00:00 09:00:00 [place] [employer] s - Drive [facility] Medicine Outpati ent Clinics 2019-07-31 2019-07-31 [facility] [id number] 11:46:00 11:46:00 [place] [employer] s - Drive [facility] Medicine l Medicine Outpati ent Clinics 2019-07-29 2019-07-29 [facility] [id number] 09:40:00 09:40:00 [place] [employer] s - Drive [facility] l Medicine Outpati ent Clinics 2019-06-02 2019-06-02 [facility] [id number] 09:38:00 09:38:00 [facility] 2019-05-31 2019-05-31 [facility] [id number] [facility] 11:30:00 11:30:00 [facility] 2018-01-19 2018-01-19 [facility] [id number] 08:11:00 08:11:00 [place] [employer] s - Drive [facility] Medicine l Medicine Outpati ent Clinics 2018-01-18 2018-01-18 [facility] [id number] 10:15:00 10:15:00 t [employer] [facility] 2017-12-26 2017-12-26 Outpatient Dolores Cavazos [id number] [facility] 09:30:00 09:30:00 [employer] [facility] ent Clinics Results This patient has no known results.
== END 2020-07-01 23:54 | disposition home or self-care (01) ==
LOC: ER 19:24
DX: K29.70 Gastritis, unspecified, without bleeding (principal); I10 Essential (primary) hypertension; I48.91 Unspecified atrial fibrillation; Z79.82 Long term (current) use of aspirin
CPT/HCPCS: 85025; 80048; 36415; 80076; 83690; 74177; 96374; 99284; C9113

== ENCOUNTER 2020-07-02 23:45 | Emergency (ER) | payer OTHER ==
[2020-07-03] MEDS ORDERED: ONDANSETRON 4 MG (ODT) TAB ONE (00:43)
[2020-07-03 00:55] LABS: Absolute Lymphocytes (CBC) 2.2 K/uL (0.7-4.9); Basophils % 0.9 % (0-1.3); Hematocrit 37.3 % (36.0-45.0); Lymphocytes % 36.4 % (15.3-44.8); RBC Red Blood Cell Count 4.78 M/uL (3.86-4.86)
[2020-07-03 01:20] LABS: ALT/SGPT 46 U/L (12-78); AST/SGOT 21 U/L (15-37); Albumin 3.5 g/dL (3.4-5.0); Alkaline Phosphatase 73 U/L (45-117); BUN Blood Urea Nitrogen 8 mg/dL (7-18); Bicarbonate 25 mmol/L (21-32); Bilirubin Direct 0.2 mg/dL (0-0.2); Bilirubin Total 0.6 mg/dL (0.2-1.0); Glucose Level 90 mg/dL (74-106); Lipase 51 U/L (73-393); Potassium 3.5 mmol/L (3.5-5.1); Protein, Total 8.6 g/dL (6.4-8.2); Sodium Level 142 mmol/L (136-145)
--- NOTE | 2020-07-03 02:24 | ER ---
Nurse's Notes [facility] Name: Dori Guardado Age: 45 yrs Sex: Female : 1975 Arrival Date: 07/02/2020 Time: 23:47 Bed 20 Private MD: Diagnosis: Nausea and vomiting;Ileus, unspecified Presentation: 07/02 23:51 Onset of symptoms was July 01, 2020. Care prior to arrival: None. Transition of sg care: patient was not received from another setting of care. 23:51 Acuity: KASH 3 23:51 Chief complaint: Patient states: reports having abdominal pain and nausea, states was sg seen last night and worked up for the same complaints, just not feeling any better this evening. Coronavirus screen: Client denies travel out of the [place] in the last 14 days. At this time, the client does not indicate any symptoms associated with coronavirus-19. Ebola Screen: Patient negative for fever greater than or equal to 101.5 degrees Fahrenheit, and additional compatible Ebola Virus Disease symptoms Patient denies exposure to infectious person. Patient denies travel to an Ebola-affected area in the 21 days before illness onset. No symptoms or risks identified at this time. Initial Sepsis Screen: Does the patient meet any 2 criteria? No. Patient's initial sepsis screen is negative. Does the patient have a suspected source of infection? Yes: Acute abdominal pain. Risk Assessment: Do you want to hurt yourself or someone else? Patient reports no desire to harm self or others. 23:51 Method Of Arrival: Ambulatory sg Historical: - Allergies: 23:51 No Known Allergies; sg - PMHx: 23:51 Atrial Fib; bowel obstruction; Crohn's; Hypertension; sg - PSHx: 23:51 Hysterectomy; Appendectomy; Cholecystectomy; ; Bowel resection; sg - Immunization history:: Adult Immunizations up to date. - Social history:: Smoking status: Patient denies any tobacco usage or history of. Screenin/09 01:27 Abuse screen: Denies threats or abuse. Nutritional screening: No deficits noted. fu Tuberculosis screening: No symptoms or risk factors identified. Fall Risk None identified. Assessment: 00:22 General: Appears uncomfortable, Behavior is calm, cooperative, appropriate for age, fu Denies fever, feeling ill, fatigue, chills. Pain: Complains of pain in abdominl pain Pain does not radiate. Pain currently is 8 out of 10 on a pain scale. Quality of pain is described as aching, Pain began since yesterday Is intermittent. Neuro: Level of Consciousness is awake, alert, obeys commands, Oriented to person, place, time, situation, It Project Manager are equal bilaterally Moves all extremities. Gait is steady, Speech is normal, Facial symmetry appears normal. Cardiovascular: Denies chest pain. Respiratory: Airway is patent Denies cough, shortness of breath labored breathing. GI: Bowel sounds present X 4 quads. Abd is soft Reports upper abdominal pain, nausea, vomiting. GI: Reports 3 BMs today. : No signs and/or symptoms were reported regarding the genitourinary system. EENT: No signs and/or symptoms were reported regarding the EENT system. Derm: No signs and/or symptoms reported regarding the dermatologic system. 01:50 Reassessment: Patient appears in no apparent distress at this time. Patient and/or fu family updated on plan of care and expected duration. Pain level reassessed. Patient is alert, oriented x 3, equal unlabored respirations, skin warm/dry/pink. patient stated pain is 2/10 on pain scale. Denies nausea at this time. 02:21 Reassessment: Dr. Gilmore in patient's room talking to the patient. fu Vital Signs: 00:00 BP 152 / 108; Pulse 71; Resp 18; Temp 98.4(T); Pulse Ox 94% on R/A; Pain 8/10; fu 01:00 BP 117 / 77; Pulse 67; Resp 16 S; Pulse Ox 96% on R/A; Pain 3/10; fu 01:30 BP 128 / 83; Pulse 66; Resp 16 S; Pulse Ox 95% on R/A; Pain 2/10; fu ED Course: 07/02 23:47 Patient arrived in ED. bp1 23:51 Pascual Lopes, LEONA is Primary Nurse. fu 23:51 Triage completed. sg 23:51 Arm band placed on. sg 23:56 Vinh Gilmore MD is Attending Physician. tw4 07/03 00:50 Inserted saline lock: 20 gauge in left hand, using aseptic technique. Blood collected. rr5 01:27 No provider procedures requiring assistance completed. fu 01:28 Patient has correct armband on for positive identification. Placed in gown. Bed in low fu position. Call light in reach. Side rails up X 1. Pulse ox on. NIBP on. 02:13 Abdomen 1 View (KUB) XRAY In Process Unspecified. EDMS 02:36 IV discontinued, bleeding controlled, Pressure dressing applied. fu Administered Medications: 00:34 Drug: Zofran (Ondansetron) 4 mg Route: PO; ea 01:24 Follow up: Response: Nausea is decreased fu 00:45 Drug: morphine 4 mg Route: IVP; Site: left hand; fu 01:15 Follow up: Response: Pain is decreased fu 00:56 Drug: NS 0.9% 1000 ml Route: IV; Rate: 1 bolus; Site: left hand; fu 02:30 Follow up: Response: No adverse reaction; IV Status: Completed infusion; IV Intake: fu 1000ml 01:45 Not Given (as per MD): Zofran (Ondansetron) 4 mg IVP once; over 2 minutes fu Intake: 02:30 IV: 1000ml; Total: 1000ml. fu Outcome: 02:24 Discharge ordered by tw4 02:36 Condition: improved fu 02:36 Discharge instructions given to patient, Instructed on discharge instructions, follow up and referral plans. Demonstrated understanding of instructions, follow-up care, Prescriptions given X 2. 02:36 Discharged to home ambulatory, with family. fu 02:38 Patient left the ED. fu Signatures: Dispatcher [employer] EDMS Rivera Gracia, RN LEONA Xiomy Tang, RN Pascual Haque ea RN Vinh Hope MD MD tw4 Tahir Villeda RN RN rr5 Miriam Colon bp1
--- NOTE | 2020-07-03 02:24 | EDPHYS ---
Physician Documentation [facility] Name: Dori Guardado Age: 45 yrs Sex: Female : 1975 Arrival Date: 07/02/2020 Time: 23:47 Bed 20 Private MD: ED Physician Vinh Gilmore HPI: 07/03 06:13 This 45 yrs old Black Female presents to ER via Ambulatory with complaints of Abdominal tw4 Pain, Vomiting. 06:13 The patient presents to the emergency department with nausea, vomiting. tw4 06:14 Onset: The symptoms/episode began/occurred today. Possible causes: unknown. The tw4 symptoms are aggravated by nothing. The symptoms are alleviated by nothing. Associated signs and symptoms: The patient has no apparent associated signs or symptoms. 06:16 Severity of symptoms: At their worst the symptoms were moderate in the emergency tw4 department the symptoms are unchanged. The patient has experienced a previous episode. The patient has been recently seen at the [facility] Emergency Department, yesterday. Historical: - Allergies: 07/02 23:51 No Known Allergies; sg - PMHx: 23:51 Atrial Fib; bowel obstruction; Crohn's; Hypertension; sg - PSHx: 23:51 Hysterectomy; Appendectomy; Cholecystectomy; ; Bowel resection; sg - Immunization history:: Adult Immunizations up to date. - Social history:: Smoking status: Patient denies any tobacco usage or history of. ROS: 07/03 06:14 Constitutional: Negative for fever, chills, and weight loss, Eyes: Negative for injury, tw4 pain, redness, and discharge, Cardiovascular: Negative for chest pain, palpitations, and edema, Respiratory: Negative for shortness of breath, cough, wheezing, and pleuritic chest pain, Back: Negative for injury and pain, MS/Extremity: Negative for injury and deformity, Skin: Negative for injury, rash, and discoloration, Neuro: Negative for headache, weakness, numbness, tingling, and seizure. Abdomen/GI: Positive for abdominal pain, nausea and vomiting, nausea, vomiting, and diarrhea, nausea, vomiting, Negative for diarrhea, constipation, abdominal cramps, abdominal distension, anorexia, dysphagia, hematemesis, black/tarry stool, rectal pain, rectal bleeding, bowel incontinence. Exam: 06:14 Constitutional: This is a well developed, well nourished patient who is awake, alert, tw4 and in no acute distress. Head/Face: Normocephalic, atraumatic. Chest/axilla: Normal chest wall appearance and motion. Nontender with no deformity. No lesions are appreciated. Cardiovascular: Regular rate and rhythm with a normal S1 and S2. No gallops, murmurs, or rubs. Normal PMI, no JVD. No pulse deficits. Respiratory: Lungs have equal breath sounds bilaterally, clear to auscultation and percussion. No rales, rhonchi or wheezes noted. No increased work of breathing, no retractions or nasal flaring. 06:14 Back: No spinal tenderness. No costovertebral tenderness. Full range of motion. Skin: Warm, dry with normal turgor. Normal color with no rashes, no lesions, and no evidence of cellulitis. MS/ Extremity: Pulses equal, no cyanosis. Neurovascular intact. Full, normal range of motion. Neuro: Awake and alert, GCS 15, oriented to person, place, time, and situation. Cranial nerves II-XII grossly intact. Motor strength 5/5 in all extremities. Sensory grossly intact. Cerebellar exam normal. Normal gait. 06:14 Abdomen/GI: Inspection: abdomen appears normal, Bowel sounds: normal, Palpation: moderate abdominal tenderness, in the epigastric area. Vital Signs: 00:00 BP 152 / 108; Pulse 71; Resp 18; Temp 98.4(T); Pulse Ox 94% on R/A; Pain 8/10; fu 01:00 BP 117 / 77; Pulse 67; Resp 16 S; Pulse Ox 96% on R/A; Pain 3/10; fu 01:30 BP 128 / 83; Pulse 66; Resp 16 S; Pulse Ox 95% on R/A; Pain 2/10; fu MDM: 00:11 Patient medically screened. tw4 06:14 Data reviewed: vital signs, nurses notes. Data interpreted: Pulse oximetry: tw4 Interpretation: normal. Counseling: I had a detailed discussion with the patient and/or guardian regarding: the historical points, exam findings, and any diagnostic results supporting the discharge/admit diagnosis, lab results. Special discussion: Based on the patient's Hx, exam, and Dx evaluation, there is no indication for emergent surgery or inpatient Tx. It is understood by the patient/guardian that if the Sx's persist or worsen they need to return immediately for re-evaluation. I discussed with the patient/guardian in detail that at this point there is no indication for admission to the hospital. It is understood, however, that if the symptoms persist or worsen the patient needs to return immediately for re-evaluation. 07/02 23:55 Order name: Basic Metabolic Panel; Complete Time: :4 07/03 01:41 Interpretation: Normal except: CL 109. tw07/02 23:55 Order name: CBC with Diff; Complete Time: :4 07/03 01:41 Interpretation: Normal except: RDW 16.1; MCV 78.0; MCH 25.1. 07/02 23:55 Order name: Hepatic Function; Complete Time: :4 07/02 23:55 Order name: Lipase; Complete Time: :41 4 07/03 01:41 Interpretation: Normal except: LIP 51. 4 07/03 01:40 Order name: Abdomen 1 View (KUB) XRAY 4 07/02 23:55 Order name: IV Saline Lock; Complete Time: 00:50 4 07/02 23:55 Order name: Labs collected and sent; Complete Time: 00:50 tw4 Administered Medications: 00:34 Drug: Zofran (Ondansetron) 4 mg Route: PO; ea 01:24 Follow up: Response: Nausea is decreased fu 00:45 Drug: morphine 4 mg Route: IVP; Site: left hand; fu 01:15 Follow up: Response: Pain is decreased fu 00:56 Drug: NS 0.9% 1000 ml Route: IV; Rate: 1 bolus; Site: left hand; fu 02:30 Follow up: Response: No adverse reaction; IV Status: Completed infusion; IV Intake: fu 1000ml 01:45 Not Given (as per MD): Zofran (Ondansetron) 4 mg IVP once; over 2 minutes fu Disposition: 07/03/20 02:24 Discharged to Home. Impression: Nausea and vomiting, Ileus, unspecified. - Condition is Stable. - Discharge Instructions: Abdominal Pain, Adult, Ileus. - Prescriptions for Zofran 4 mg Oral Tablet - take 1 tablet by ORAL route every 12 hours As needed; 20 tablet. Levsin 0.125 mg Oral Tablet - take 1 tablet by ORAL route every 8 hours; 30 tablet. - Medication Reconciliation Form, Thank You Letter, Antibiotic Education, Prescription Opioid Use form. - Follow up: Private Physician; When: Upon discharge from the Emergency Department; Reason: Recheck today's complaints, Continuance of care, Re-evaluation by your physician. - Problem is new. - Symptoms have improved. Signatures: Dispatcher [employer] EDRivera Partida RN RN Xiomy Cruz RN Pascual Haque ea RN Vinh Hope MD MD tw4 Corrections: (The following items were deleted from the chart) 02:38 02:24 07/03/2020 02:24 Discharged to Home. Impression: Nausea and vomiting; Ileus, fu unspecified. Condition is Stable. Forms are Medication Reconciliation Form, Thank You Letter, Antibiotic Education, Prescription Opioid Use. Follow up: Private Physician; When: Upon discharge from the Emergency Department; Reason: Recheck today's complaints, Continuance of care, Re-evaluation by your physician. Problem is new. Symptoms have improved. tw4 06:16 06:14 The patient has not experienced similar symptoms in the past, tw4 tw4
[2020-07-03 02:45] VITALS: TEMP 98.4
[2020-07-03 02:49] VITALS: BP 128/83; O2SAT 95
--- OUTSIDE RECORDS SUMMARY | 2020-07-03 05:41 | XMS REPORT ---
[...] Status Dosage System Date Date BusPIRone HCl [facility] 29233806955 10 MG Orally Active 1 tablet Three times a day Metoprolol [facility] 84983646925 50 MG Orally Active 1 ta blet Tartrate Twice a day with food Ergocalciferol [facility] 98496897514 11139 UNIT Active 1 capsule Orally once a week Paxil [facility] 75251260067 20 MG Orally Active 1 table t Once a day in the morning Humira [facility] [address]-23 Active not defined Aspirin [facility] 72733269661 81 MG Orally Active not defined Results No Known Results Summary Purpose eClinicalWorks Submission
--- OUTSIDE RECORDS SUMMARY | 2020-07-03 05:41 | XMS REPORT ---
[...] Status Dosage System Date Date Paxil [facility] 32373400937 20 MG Orally Active 1 table t Once a day in the morning Pantoprazole [facility] 09309622055 40 MG Orally May 04, Active 1 tablet Sodium Once a day 2019 Ergocalciferol [facility] 64265571082 41825 UNIT Active 1 capsule Orally once a week Humira [facility] [address]-29 Active not defined BusPIRone HCl [facility] 15282199780 10 MG Orally Active 1 tablet Three times a day Aspirin [place] 14869396912 81 MG Orally Active not defined Metoprolol [facility] 49685437316 50 MG Orally Active 1 ta blet Tartrate Twice a day with food Results No Known Results Summary Purpose eClinicalWorks Submission
--- OUTSIDE RECORDS SUMMARY | 2020-07-03 05:41 | XMS REPORT | Continuity of Care Document ---
:1975 Author Organization [facility] Address [address] [place] [address] [address] [place] [address] Care Team Providers Name Role Phone Unavailable Unavailable Unavailable Problems Condition Condition Condition Status Onset Resolution Last Treating Co mments Source Name Details Category Date Date Treatment Clinician Date Obesity, Obesity, Problem [facility] - BMI BMI Memoria 40.0-49.9 40.0-49.9 [facility] Depression Depression Problem Active [facility] with with [facility] - anxiety anxiety Memoria l [facility] Seasonal Seasonal Problem Active [facility] allergic allergic [facility] - rhinitis rhinitis Memori a due to due to l pollen pollen [facility] High blood High blood Problem Active [facility] pressure pressure [facility] l [facility] Crohn's Crohn's Problem Active [facility] disease in disease in [place] kes - remission remission Delvis dayanna l [facility] Urinary Urinary Problem Active [facility] tract tract [facility] - infection, infection, Me moria site not site not l specified specified Outp ati ent Clinics Adult Adult Problem Active [facility] general general [facility] - medical medical Memoria exam exam l [facility] Multiple Multiple Problem Active [facility] joint pain joint pain [place] kes - Memoria l [facility] Hematuria, Hematuria, Problem Active [facility] unspecifie unspecifie [place] kes - d d Memoria l [facility] BMI BMI Problem Active [facility] 50.0-59.9, 50.0-59.9, [place] kes - adult adult Memoria l [facility] Vitamin D Vitamin D Problem Active [facility] deficiency deficiency [place] kes - Memoria l [facility] Grieving Grieving Problem Active [facility] Gastroesop Gastroesop Problem Active C [...] Sodium 8-10 [facility] - 00:00: Memoria 00 [facility] Ergocalcife Ergocalcife 2018-09 2020- Na Lopez [address] rol rol 18 11-10 [facility] - 00:00: 00:00 Memoria 00 :00 [facility] Paxil Paxil Yes Na Lopez [address] [facility] 4-03 in the [facility] - 00:00: morning Memoria 00 [facility] Humira Humira Yes Na Lopez not [facility] defined [facility] Aspirin Aspirin Yes Na Lopez not [facility] defined [facility] BusPIRone BusPIRone Yes Na Lopez [address] HCl HCl [facility] ent [facility] Metoprolol Metoprolol Yes Na Lopez [address] Tartrate Tartrate with food [place] [facility] ent Clinics Procedures This patient has no known procedures. Encounters Start End Encounter Admission Attending Care Care Encounter Source Date/Time Date/Time Type Type Clinicians Facility Department ID 2020-05-04 2020-05-04 Outpatient Dolores Cavazos [id number] 10:10:00 10:10:00 [facility] 2020-05-01 2020-05-01 Outpatient Dolores Cavazos [id number] 09:40:00 09:40:00 [facility] 2020-02-19 2020-02-19 Outpatient Dolores Cavazos [id number] 16:06:00 16:06:00 [facility] [address] [facility] Medicine Outpati ent Clinics 2019-12-12 2019-12-12 [facility] [id number] 15:41:00 15:41:00 [place] [facility] Medicine l Medicine Outpati ent Clinics 2019-09-16 2019-09-16 [facility] [id number] 14:40:00 14:40:00 [place] [employer] [facility] [address] [facility] Medicine Outpati ent Clinics 2019-08-15 2019-08-15 [facility] [id number] 09:27:00 09:27:00 [place] [employer] [address] - [address] [facility] Medicine Outpati ent Clinics 2019-08-12 2019-08-12 [facility] [id number] 09:00:00 09:00:00 [place] [employer] [place] [address] [facility] Medicine Outpati ent Clinics 2019-07-31 2019-07-31 [facility] [id number] 11:46:00 11:46:00 [place] [employer] [address] - [address] [facility] Medicine l Medicine Outpati ent Clinics 2019-07-29 2019-07-29 [facility] [id number] 09:40:00 09:40:00 [place] [employer] [address] - [address] [facility] l Medicine Outpati ent Clinics 2019-06-02 2019-06-02 [facility] [id number] 09:38:00 09:38:00 [facility] 2019-05-31 2019-05-31 [facility] [id number] 11:30:00 11:30:00 [facility] 2018-01-19 2018-01-19 [facility] [id number] 08:11:00 08:11:00 [place] [employer] [address] [facility] Medicine l Medicine Outpati ent Clinics 2018-01-18 2018-01-18 [facility] [id number] 10:15:00 10:15:00 t [facility] 2017-12-26 2017-12-26 Outpatient Dolores Cavazos [id number] [facility] 09[facility]30:00 09:30:00 [facility] Clinics Results This patient has no known results.
--- NOTE | 2020-07-03 08:31 | RAD REPORT ---
EXAM DESCRIPTION: RAD - Abdomen 1 View (KUB) - 07/03/2020 2:13 am CLINICAL HISTORY: ABD PAIN Pain COMPARISON: Abdomen Pelvis W Contrast dated 07/01/2020 FINDINGS: The bowel gas pattern is non-obstructive. No evidence of free air or pneumatosis. No suspi cious calcifications. No significant bony findings. Cholecystectomy clips. IMPRESSION: Negative examination.
== END 2020-07-03 02:38 | disposition home or self-care (01) ==
LOC: ER 23:45
DX: K56.7 Ileus, unspecified (principal); I10 Essential (primary) hypertension
CPT/HCPCS: 36415; 74018; 80048; 80076; 83690; 85025; 96361; 96374; 99284

== ENCOUNTER 2020-07-14 02:13 | Emergency (ER) | payer OTHER ==
--- OUTSIDE RECORDS SUMMARY | 2020-07-14 02:15 | XMS REPORT ---
[...] Status Dosage System Date Date BusPIRone HCl [facility] 56076708463 10 MG Orally Active 1 tablet Three times a day Metoprolol [facility] 51402528852 50 MG Orally Active 1 ta blet Tartrate Twice a day with food Ergocalciferol [facility] 52421918758 71323 UNIT Active 1 capsule Orally once a week Paxil [facility] 51697808126 20 MG Orally Active 1 table t Once a day in the morning Humira [facility] [address]-90 Active not defined Aspirin [facility] 75917943430 81 MG Orally Active not defined Results No Known Results Summary Purpose eClinicalWorks Submission
--- OUTSIDE RECORDS SUMMARY | 2020-07-14 02:15 | XMS REPORT | Continuity of Care Document ---
:1975 Author Organization [facility] Address [address] [place] [address] [address]. Kong [address] [place] [address] Care Team Providers Name Role Phone Unavailable Unavailable Unavailable Problems Condition Condition Condition Status Onset Resolution Last Treating Co mments Source Name Details Category Date Date Treatment Clinician Date Obesity, Obesity, Problem [facility] - BMI BMI Memoria 40.0-49.9 40.0-49.9 l [facility] Depression Depression Problem Active [facility] with with [facility] - anxiety anxiety Memoria l [facility] Seasonal Seasonal Problem Active [facility] allergic allergic [facility] - rhinitis rhinitis Memori a due to due to l pollen pollen [facility] High blood High blood Problem Active [facility] pressure pressure [facility] - [facility] l [facility] Crohn's Crohn's Problem Active [facility] disease in disease in [place] kes - remission remission Delvis dayanna l [facility] Urinary Urinary Problem Active [facility] tract tract [facility] - infection, infection, Me moria site not site not l specified specified Outp ati ent Clinics Adult Adult Problem Active [facility] general general [facility] medical Memoria exam exam l [facility]ics Multiple Multiple Problem Active [facility] joint pain joint pain [place] kes - Memoria l [facility] Hematuria, Hematuria, Problem Active [facility] unspecifie unspecifie [place] kes - d d Memoria l [facility] BMI BMI Problem Active [facility] 50.0-59.9, 50.0-59.9, [place] kes - adult adult Memoria l [facility] Vitamin D Vitamin D Problem Active [facility] deficiency deficiency [place] kes - Memoria l [facility] Grieving Grieving Problem Active [facility] Gastroesop Gastroesop Problem Active [...] Sodium 8-10 [facility] - 00:00: Memoria 00 [facility] Ergocalcife Ergocalcife 2018-09 2020- Na Lopez [address] [facility] rol rol 18 11-10 [facility] - 00:00: 00:00 Memoria 00 :00 [facility] Paxil Paxil Yes Na Lopez [address] [facility] 4-03 in the [facility] - 00:00: morning Memoria 00 [facility] Humira Humira Yes Na Lopez not [facility] defined [facility]oria [facility] Aspirin Aspirin Yes Na Lopez not [facility] defined [facility] Memoria [facility] BusPIRone BusPIRone Yes Na Lopez [address] [address] HCl HCl [facility] Metoprolol Metoprolol Yes Na Lopez [address] [facility] [address] Tartrate Tartrate with food [place] [facility] ent Clinics Procedures This patient has no known procedures. Encounters Start End Encounter Admission Attending Care Care Encounter Source Date/Time Date/Time Type Type Clinicians Facility Department ID 2020-05-04 2020-05-04 Outpatient Dolores Cavazos [id number] [facility] 10:10:00 10:10:00 Face to Face Live [facility] Family Medicine l Medicine [facility] 2020-05-01 2020-05-01 Outpatient Dolores Cavazos [id number] [facility] [address] 09:40:00 09:40:00 Face to Face Live [facility] Family Medicine l Medicine [facility] 2020-02-19 2020-02-19 Outpatient Dolores Cavazos [id number] [facility] 16:06:00 16:06:00 [facility] [address] [facility] Medicine Outpati ent Clinics 2019-12-12 2019-12-12 [facility] [id number] 15:41:00 15:41:00 [place] Luke s - Drive [facility] Medicine l Medicine Outpati ent Clinics 2019-09-16 2019-09-16 [facility] [id number] 14[facility]40:00 14:40:00 t [place] [employer] s - Drive [facility] Medicine Outpati ent Clinics 2019-08-15 2019-08-15 [facility] [id number] [address] 09:27:00 09:27:00 [place] [employer] s - Drive [facility] Medicine Outpati ent Clinics 2019-08-12 2019-08-12 [facility] [id number] [address] 09:00:00 09:00:00 t [place] Major Aide s - Drive [facility] Medicine Outpati ent Clinics 2019-07-31 2019-07-31 [facility] [id number] [address] 11:46:00 11:46:00 [place] [employer] s - Drive [facility] Medicine l Medicine Outpati ent Clinics 2019-07-29 2019-07-29 [facility] [id number] 09:40:00 09:40:00 [place] [employer] s - Drive [facility] l Medicine Outpati ent Clinics 2019-06-02 2019-06-02 [facility] [id number] 09:38:00 09:38:00 t [facility] - [facility] Outpat[facility] ent Clinics 2019-05-31 2019-05-31 [facility] [id number] [address] 11:30:00 11:30:00 t [facility] Care [facility] l Outpati ent Clinics 2018-01-19 2018-01-19 [facility] [id number] 08:11:00 08:11:00 [place] [employer] Aide s - Drive [facility] Medicine l Medicine Outpati ent Clinics 2018-01-18 2018-01-18 [facility] [id number] 10:15:00 10:15:00 t Face to Face Live [facility] 2017-12-26 2017-12-26 Outpatient Dolores Cavazos [id number] [facility] 09:30:00 09:30:00 Face to Face Live [facility] ent Clinics Results This patient has no known results.
--- OUTSIDE RECORDS SUMMARY | 2020-07-14 02:16 | XMS REPORT ---
[...] End Status Dosage System Date Date Paxil [facility] [id number] 20 MG Orally Active 1 table t Once a day in the morning Pantoprazole [facility] [id number] 40 MG Orally May 04, Active 1 tablet Sodium Once a day 2019 Ergocalciferol [facility] [id number] 89648 UNIT Active 1 capsule Orally once a week Humira [facility] [address]-22 Active not defined BusPIRone HCl [facility] 76160420384 10 MG Orally Active 1 tablet Three times a day Aspirin [place] 57239154210 81 MG Orally Active not defined Metoprolol [facility] 94367398630 50 MG Orally Active 1 ta blet Tartrate Twice a day with food Results No Known Results Summary Purpose eClinicalWorks Submission
[2020-07-14] MEDS ORDERED: NA CHLORIDE 0.9% 1,000 ML ONE (03:39)
[2020-07-14] MEDS ORDERED: METHYLPREDNISOLONE 125 MG INJ ONE (03:39)
[2020-07-14 03:47] LABS: Protime INR 1.01
[2020-07-14 03:49] LABS: Absolute Lymphocytes (CBC) 2.5 K/uL (0.7-4.9); Basophils % 0.2 % (0-1.3); Hematocrit 38.5 % (36.0-45.0); Lymphocytes % 42.5 % (15.3-44.8); MPV 9.1 fL (7.6-11.3); RBC Red Blood Cell Count 4.98 M/uL (3.86-4.86)
[2020-07-14 04:11] LABS: ALT/SGPT 48 U/L (12-78); AST/SGOT 27 U/L (15-37); Albumin 3.8 g/dL (3.4-5.0); Alkaline Phosphatase 77 U/L (45-117); BUN Blood Urea Nitrogen 9 mg/dL (7-18); Bicarbonate 27 mmol/L (21-32); Bilirubin Direct 0.2 mg/dL (0-0.2); Bilirubin Total 0.5 mg/dL (0.2-1.0); Glucose Level 92 mg/dL (74-106); NT PRO-BNP 69 pg/mL (<125); Potassium 3.5 mmol/L (3.5-5.1); Protein, Total 8.8 g/dL (6.4-8.2); Sodium Level 141 mmol/L (136-145); Troponin (Emerg Dept Use Only) < 0.02 ng/mL (0.0-0.045)
[2020-07-14 04:31] LABS: Blood Morphology Comment NOT SEEN (NOT SEEN); Platelet Estimate ADEQ
--- NOTE | 2020-07-14 05:37 | ER ---
Nurse's Notes [facility] Name: Dori Guardado Age: 45 yrs Sex: Female : 1975 Arrival Date: 07/14/2020 Time: 02:14 Bed 15 Private MD: Diagnosis: Dysphagia. Swelling neck and jaws Presentation: 07/14 02:19 Chief complaint: Patient states: I feel like my face is swelling under my jaw on both jb4 sides. It has been going on for over an hour now. I feel like I am having a hard time swallowing but I have no problems breathing. 02:19 Coronavirus screen: Client denies travel out of the [place] in the last 14 days. At this jb4 time, the client does not indicate any symptoms associated with coronavirus-19. Ebola Screen: No symptoms or risks identified at this time. Initial Sepsis Screen: Does the patient meet any 2 criteria? No. Patient's initial sepsis screen is negative. Does the patient have a suspected source of infection? No. Patient's initial sepsis screen is negative. Risk Assessment: Do you want to hurt yourself or someone else? Patient reports no desire to harm self or others. Onset of symptoms was July 14, 2020. Transition of care: patient was not received from another setting of care. 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 - Social history:: Smoking status: Patient denies any tobacco usage or history of. Patient/guardian denies using alcohol, street drugs. Screenin:19 Abuse screen: Denies threats or abuse. Nutritional screening: No deficits noted. jb4 Tuberculosis screening: No symptoms or risk factors identified. Fall Risk None identified. Assessment: 02:19 General: Appears in no apparent distress. uncomfortable, Behavior is calm, cooperative, jb4 appropriate for age. Pain: Complains of pain in right arm Pain does not radiate. Pain currently is 4 out of 10 on a pain scale. Quality of pain is described as aching. Neuro: Level of Consciousness is awake, alert, obeys commands, Oriented to person, place, time, situation. Cardiovascular: Patient's skin is warm and dry. Respiratory: Airway is patent Respiratory effort is even, unlabored, Respiratory pattern is regular, symmetrical. GI: No signs and/or symptoms were reported involving the gastrointestinal system. : No signs and/or symptoms were reported regarding the genitourinary system. EENT: Throat is clear bilaterally with gag reflex present. Derm: Skin is intact, Skin is dry, Skin is normal, Skin temperature is warm. Musculoskeletal: Circulation, motion, and sensation intact. Range of motion: intact in all extremities. 03:15 Reassessment: Patient appears in no apparent distress at this time. Patient and/or jb4 family updated on plan of care and expected duration. Pain level reassessed. Patient is alert, oriented x 3, equal unlabored respirations, skin warm/dry/pink. 04:15 Reassessment: Patient appears in no apparent distress at this time. Patient and/or jb4 family updated on plan of care and expected duration. Pain level reassessed. Patient is alert, oriented x 3, equal unlabored respirations, skin warm/dry/pink. 05:36 Reassessment: Patient appears in no apparent distress at this time. Patient and/or jb4 family updated on plan of care and expected duration. Pain level reassessed. Patient is alert, oriented x 3, equal unlabored respirations, skin warm/dry/pink. Vital Signs: 02:19 BP 141 / 94; Pulse 78; Resp 16; Temp 97.3; Pulse Ox 98% on R/A; Weight 122.47 kg (R); jb4 Height 5 ft. 3 in. (160.02 cm) (R); Pain 410; 03:00 BP 138 / 81; Pulse 61; Resp 16; Pulse Ox 100% on R/A; jb4 04:00 BP 136 / 76; Pulse 63; Resp 16; Pulse Ox 99% on R/A; jb4 05:00 BP 130 / 82; Pulse 62; Resp 18; Pulse Ox 99% on R/A; jb4 02:19 Body Mass Index 47.83 (122.47 kg, 160.02 cm) jb4 ED Course: 02:14 Patient arrived in ED. cl3 02:19 Phoenix Acevedo MD is Attending Physician. pkl 02:19 Arm band placed on right wrist. jb4 02:19 Patient has correct armband on for positive identification. Call light in reach. Side jb4 rails up X 1. Pulse ox on. NIBP on. 02:27 Hong Mosher, RN is Primary Nurse. jb4 02:29 Triage completed. jb4 03:30 Initial lab(s) drawn, by me, sent to lab. Inserted saline lock: 20 gauge in right bb antecubital area, using aseptic technique. Blood collected. 04:10 XRAY Chest (1 view) In Process Unspecified. EDMS 05:49 No provider procedures requiring assistance completed. IV discontinued, intact, jb4 bleeding controlled, No redness/swelling at site. Pressure dressing applied. Administered Medications: 03:35 Drug: NS 0.9% 1000 ml Route: IV; Rate: 100 ml/hr; Site: right antecubital; bb 04:45 Follow up: Response: No adverse reaction; IV Status: Discontinued due to IV jb4 infiltration. 03:35 Drug: SOLU-Medrol 125 mg Route: IVP; Site: right hand; bb 04:00 Follow up: Response: No adverse reaction; Marked relief of symptoms jb4 Outcome: 05:36 Discharge ordered by . pkl 05:49 Discharged to home ambulatory, with family. jb4 05:49 Condition: stable 05:49 Discharge instructions given to patient, Instructed on discharge instructions, follow up and referral plans. medication usage, Demonstrated understanding of instructions, follow-up care, medications, Prescriptions given X 1. 05:50 Patient left the ED. jb4 Signatures: Dispatcher [employer] EDMS Phoenix Acevedo MD MD pkPrecious Younger RN RN bb Hong Mosher, LEONA RN [email or web address] Tani Mckee cl3
--- NOTE | 2020-07-14 05:37 | EDPHYS ---
Physician Documentation [facility] Name: Dori Guardado Age: 45 yrs Sex: Female : 1975 Arrival Date: 07/14/2020 Time: 02:14 Bed 15 Private MD: ED Physician Phoenix Acevedo HPI: 07/14 05:26 This 45 yrs old Black Female presents to ER via Ambulatory with complaints of Facial pkl Swelling. 05:26 The patient presents with dysphagia, of solids. Onset: The symptoms/episode pkl began/occurred just prior to arrival. Associated signs and symptoms: Pertinent positives: Swelling around neck and jaw. 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 - Social history:: Smoking status: Patient denies any tobacco usage or history of. Patient/guardian denies using alcohol, street drugs. ROS: 05:26 Eyes: Negative for injury, pain, redness, and discharge. pkl 05:26 ENT: Positive for dysphagia. 05:26 Neck: Positive for swelling. 05:26 Cardiovascular: Negative for chest pain. 05:26 Respiratory: Negative for cough, shortness of breath. 05:26 Abdomen/GI: Negative for abdominal pain, nausea, vomiting, and diarrhea. 05:26 Back: Negative for pain at rest. 05:26 : Negative for urinary symptoms. 05:26 MS/extremity: Negative for acute changes. 05:26 Skin: Negative for rash. 05:26 Neuro: Negative for altered mental status. Exam: 05:26 Head/Face: Normocephalic, atraumatic. Eyes: Pupils equal round and reactive to light, pkl extra-ocular motions intact. Lids and lashes normal. Conjunctiva and sclera are non-icteric and not injected. Cornea within normal limits. Periorbital areas with no swelling, redness, or edema. ENT: Nares patent. No nasal discharge, no septal abnormalities noted. Tympanic membranes are normal and external auditory canals are clear. Oropharynx with no redness, swelling, or masses, exudates, or evidence of obstruction, uvula midline. Mucous membranes moist. Neck: Trachea midline, no thyromegaly or masses palpated, and no cervical lymphadenopathy. Supple, full range of motion without nuchal rigidity, or vertebral point tenderness. No Meningismus. Chest/axilla: Normal chest wall appearance and motion. Nontender with no deformity. No lesions are appreciated. Cardiovascular: Regular rate and rhythm with a normal S1 and S2. No gallops, murmurs, or rubs. Normal PMI, no JVD. No pulse deficits. Respiratory: Lungs have equal breath sounds bilaterally, clear to auscultation and percussion. No rales, rhonchi or wheezes noted. No increased work of breathing, no retractions or nasal flaring. Abdomen/GI: Soft, non-tender, with normal bowel sounds. No distension or tympany. No guarding or rebound. No evidence of tenderness throughout. Back: No spinal tenderness. No costovertebral tenderness. Full range of motion. Skin: Warm, dry with normal turgor. Normal color with no rashes, no lesions, and no evidence of cellulitis. MS/ Extremity: Pulses equal, no cyanosis. Neurovascular intact. Full, normal range of motion. Neuro: Awake and alert, GCS 15, oriented to person, place, time, and situation. Cranial nerves II-XII grossly intact. Motor strength 5/5 in all extremities. Sensory grossly intact. Cerebellar exam normal. Normal gait. Vital Signs: 02:19 BP 141 / 94; Pulse 78; Resp 16; Temp 97.3; Pulse Ox 98% on R/A; Weight 122.47 kg (R); jb4 Height 5 ft. 3 in. (160.02 cm) (R); Pain 10; 03:00 BP 138 / 81; Pulse 61; Resp 16; Pulse Ox 100% on R/A; jb4 04:00 BP 136 / 76; Pulse 63; Resp 16; Pulse Ox 99% on R/A; jb4 05:00 BP 130 / 82; Pulse 62; Resp 18; Pulse Ox 99% on R/A; jb4 02:19 Body Mass Index 47.83 (122.47 kg, 160.02 cm) jb4 MDM: 02:19 Patient medically screened. pkl 05:26 Data reviewed: vital signs, nurses notes, lab test result(s), radiologic studies, plain pkl films. ED course: Patient feeling better. Able to swallow and feels swelling in neck and jaws resolving. 05:26 ED course: Advised to follow up with PCP in 2 to 3 days. To return if necessary. pkl Patient understood instructions. 07/14 03:10 Order name: Basic Metabolic Panel; Complete Time: 05:13 pkl 07/14 03:10 Order name: CBC with Diff; Complete Time: 05: pkl 07/14 03:10 Order name: LFT's; Complete Time: 05:13 pkl 07/14 03:10 Order name: Magnesium; Complete Time: 05:13 pkl 07/14 03:10 Order name: NT PRO-BNP; Complete Time: 05:13 pkl 07/14 03:10 Order name: PT-INR; Complete Time: 05:13 pkl 07/14 03:10 Order name: Troponin (emerg Dept Use Only); Complete Time: 05:13 pkl 07/14 03:10 Order name: XRAY Chest (1 view) pkl 07/14 03:10 Order name: EKG; Complete Time: 03:11 pkl 07/14 03:10 Order name: Cardiac monitoring; Complete Time: 03:20 pkl 07/14 03:10 Order name: EKG - Nurse/Tech; Complete Time: 03:20 pkl 07/14 03:55 Order name: Manual Differential; Complete Time: 05:13 EDMS 07/14 03:10 Order name: IV Saline Lock; Complete Time: 03:39 pkl 07/14 03:10 Order name: Labs collected and sent; Complete Time: 03:39 pkl 07/14 03:10 Order name: O2 Per Protocol; Complete Time: 03:20 pkl 07/14 03:10 Order name: O2 Sat Monitoring; Complete Time: 03:20 pkl Administered Medications: 03:35 Drug: NS 0.9% 1000 ml Route: IV; Rate: 100 ml/hr; Site: right antecubital; bb 04:45 Follow up: Response: No adverse reaction; IV Status: Discontinued due to IV jb4 infiltration. 03:35 Drug: SOLU-Medrol 125 mg Route: IVP; Site: right hand; bb 04:00 Follow up: Response: No adverse reaction; Marked relief of symptoms jb4 Disposition: 07/14/20 05:36 Discharged to Home. Impression: Dysphagia. Swelling neck and jaws. - Condition is Stable. - Prescriptions for Prednisone 20 mg Oral Tablet - take 1 tablet by ORAL route once daily for 5 days; 5 tablet. - Medication Reconciliation Form, Thank You Letter, Antibiotic Education, Prescription Opioid Use form. - Follow up: Private Physician; When: 2 - 3 days; Reason: Re-evaluation by your physician. - Problem is new. - Symptoms have improved. Signatures: Dispatcher [employer] EDPhoenix Stern MD MD pkl Precious Felton, RN RN bb Hong Mosher RN RN jb4 Corrections: (The following items were deleted from the chart) 05:50 05:36 07/14/2020 05:36 Discharged to Home. Impression: Dysphagia. Swelling neck and jb4 jaws. Condition is Stable. Forms are Medication Reconciliation Form, Thank You Letter, Antibiotic Education, Prescription Opioid Use. Follow up: Private Physician; When: 2 - 3 days; Reason: Re-evaluation by your physician. Problem is new. Symptoms have improved. pkl
[2020-07-14 06:05] VITALS: TEMP 97.3
[2020-07-14 06:09] VITALS: O2SAT 99
[2020-07-14 06:10] VITALS: BP 130/82
--- NOTE | 2020-07-14 09:05 | RAD REPORT ---
EXAM DESCRIPTION: RAD - Chest Single View - 07/14/2020 4:10 am CLINICAL HISTORY: CHEST PAIN Chest pain. COMPARISON: Abdomen 1 View (KUB) dated 07/03/2020; Chest Single View dated 06/22/2020; Chest Pa And La t (2 Views) dated 04/25/2020; Chest Single View dated 02/14/2020 FINDINGS: Portable technique limits examination quality. The lungs are grossly clear. The heart is upper limit of normal in size. No displaced fractures. IMPRESSION: No acute intrathoracic process suspected.
--- NOTE | 2020-07-14 16:09 | EKG ---
Test Date: 2020-07-14 Test Time: 03:26:54 Tank Builder: ALLISON MEASUREMENT RESULTS: Intervals: Rate: 58 KS: 194 QRSD: 86 QT: 412 QTc: 404 [place]: P: 42 KS: 194 QRS: -8 T: -7 INTERPRETIVE STATEMENTS: Sinus bradycardia Otherwise normal ECG Compared to ECG 06/26/2020 14:52:12 No significant changes Electronically Signed On 07-14-20 16:07:51 CDT by Matthew Lofton
== END 2020-07-14 05:50 | disposition home or self-care (01) ==
LOC: ER 02:13
DX: R13.10 Dysphagia, unspecified (principal); R22.9 Localized swelling, mass and lump, unspecified; I10 Essential (primary) hypertension; I48.91 Unspecified atrial fibrillation; Z79.82 Long term (current) use of aspirin
CPT/HCPCS: 96361; 93005; 85025; 80048; 36415; 83735; 85610; 80076; 84484; 83880; 71045; 96374; 99284; J7030; J2930

== ENCOUNTER 2020-08-11 16:42 | Emergency (ER) | payer OTHER ==
--- OUTSIDE RECORDS SUMMARY | 2020-08-11 16:43 | XMS REPORT | Continuity of Care Document ---
:1975 Author Organization [facility] t Address [address] [place] [address] Dr. Kong [address] [place] [address] Care Team Providers Name Role Phone Unavailable Unavailable Unavailable Problems This patient has no known problems. Allergies, Adverse Reactions, Alerts This patient has [...] hospital ent Clinics Ergocalcife Ergocalcife 2018-09 2020- No Na Lopez [address] [facility] Paxil Paxil Yes Na Lopez [address] [facility] 4-03 [facility] the [facility] morning [facility] 00 [facility] Humira Humira Yes Na Lopez not [facility] Aspirin Aspirin Yes Na Lopez not [facility] BusPIRone BusPIRone Yes Na Lopez [address] [facility] HCl HCl [facility] Metoprolol Metoprolol Yes Na Lopez [address] [facility] Tartrate Tartrate with food Chelsey kes - [facility] Clinics Procedures This patient has no known procedures. Encounters Start End Encounter Admission Attending Care Care Encounter Source Date/Time Date/Time Type Type Clinicians Facility Department ID 2020-08-03 2020-08-03 Outpatient [facility] [id number] [facility] Outpati ent Clinics 2020-05-04 2020-05-04 [facility] [id number] [facility] 10:10:00 10:10:00 t [place] [employer] [address] - Drive [facility] Medicine l Medicine Outpati ent Clinics 2020-05-01 2020-05-01 [facility] [id number] 09:40:00 09:40:00 t [employer] - [address] [facility] Medicine Outpati ent Clinics 2020-02-19 2020-02-19 [facility] [id number] [facility] 16:06:00 16:06:00 t [facility] [place] [address] [facility] Medicine Outpati ent Clinics 2019-12-12 2019-12-12 [facility] [id number] [address] 15:41:00 15:41:00 t [employer] [employer] [address] [facility] Medicine Outpati ent Clinics 2019-09-16 2019-09-16 [facility] [id number] 14:40:00 14:40:00 t [employer] [employer] [address] [facility] Medicine Outpati ent Clinics 2019-08-15 2019-08-15 [facility] [id number] [address] 09:27:00 09:27:00 t [employer] [employer] [address] [facility] Medicine Outpati ent Clinics 2019-08-12 2019-08-12 [facility] [id number] 09:00:00 09:00:00 t [employer] [employer] [address] [facility] Medicine Outpati ent Clinics 2019-07-31 2019-07-31 [facility] [id number] [address] 11:46:00 11:46:00 t [place] [employer] [place] - [address] [facility] l Medicine Outpati ent Clinics 2019-07-29 2019-07-29 [facility] [id number] 09:40:00 09:40:00 t [place] [employer] - [address] [facility] Outpati ent Clinics 2019-06-02 2019-06-02 [facility] [id number] [address] 09:38:00 09:38:00 t [facility] - Care Clinic [facility] Outpati ent Clinics 2019-05-31 2019-05-31 [facility] [id number] [address] 11:30:00 11:30:00 t [facility] 2018-01-19 2018-01-19 [facility] [id number] 08:11:00 08:11:00 t [facility] Outpati ent Clinics 2018-01-18 2018-01-18 [facility] [id number] 10:15:00 10:15:00 t [facility] Outpati ent Clinics 2017-12-26 2017-12-26 [facility] [id number] 09:30:00 09:30:00 t [facility] Outpati ent Clinics Results This patient has no known results.
--- OUTSIDE RECORDS SUMMARY | 2020-08-11 16:43 | XMS REPORT ---
:1975 Author Organization [facility] Address [address] [place], [address] [place] [address] Care Team Providers Name Role Phone Lopez Unavailable [phone] PROBLEMS Type Condition ICD9-CM [id number] Onset Condition SNOMED Code Notes Code Code Dates Status Problem Seasonal allergic J30.1 Active 32063818 rhinitis due to pollen Problem Obesity, morbid, E66.01 Active 643990306 BMI 40.0-49.9 Problem High blood pressure I10 Active 94899794 Problem Crohn's disease in K50.90 Active 111583520 remission Problem Depression with F41.8 Active 670457047 anxiety Problem Urinary tract N39.0 Active 82719374 infection, site not specified Problem Multiple joint pain M25.50 Active 22261283 Problem Vitamin D E55.9 Active 35188614 deficiency Problem Gastroesophageal K21.9 Active 962169008 reflux disease, esophagitis presence not specified Problem Adult general Z00.00 Active 149544008 medical exam Problem Seasonal allergic J30.2 Active 697656720 rhinitis, unspecified trigger Problem Hematuria, R31.9 Active 03807574 unspecified Problem BMI 50.0-59.9, Z68.43 Active 917663954 adult Problem Obesity, morbid, E66.01 Active 872803538 BMI 50 or higher Problem Grieving F43.21 Active 150087018 Problem Iron deficiency D50.9 Active 06998162 anemia, unspecified iron deficiency anemia type ALLERGIES No Known Allergies ENCOUNTERS from 1975 to 2020-08-09 Encounter Location Date Provider Diagnosis [facility] [address] [place], Noemy Lopez [facility] blood pressure I10 ; Family Medicine [address], [place] [address] F41.8 ; Screen ing for malignant neopl asm of breast Z12.39 ; Crohn's disease in yanci ssion K50.90 ; Gastro esophageal reflux disease, esophagitis pre sence not specified K21.9 ; Vitamin D deficiency E5 5.9 ; Seasonal allerg ic rhinitis, unspe cified trigger J30.2 a nd Obesity, morbid , BMI 50 or higher E66.0 1 IMMUNIZATIONS No Information SOCIAL HISTORY Tobacco Use: Social History Observation Description Date Details (start date - stop date) Never Smoker Sex Assigned At : Social History Observation Description Sex Assigned At Unknown PHQ9 Question Answer Notes Little interest or pleasure in doing things More than half t he days Feeling down, depressed, or hopeless More than half the days Trouble falling or staying asleep or sleeping too much Nearl y every day Feeling tired or having little energy Several days Poor appetite or overeating More than half the days Feeling bad about yourself, or that you are a failure, Not a t all or have let yourself or your family down Trouble concentrating on things, such as reading the Not at all newspaper or watching television Moving or speaking so slowly that other people could Not at all have noticed; or the opposite, being so fidgety or restless that you have been moving around a lot more than usual Total Score 10 Interpretation Moderate Depression Thoughts that you would be better off or of Not at all hurting yourself in some way Alcohol Screen Question Answer Notes Did you have a drink containing alcohol in the past year? No Points 0 Interpretation Negative Tobacco Use/Smoking Question Answer Notes Are you a never smoker Are you a never smoker REASON FOR REFERRAL No Information VITAL SIGNS Height 63.00 in Jul, Weight 290.4 lbs Jul, Temperature 97.6 degrees Fahrenheit Jul, BMI 51.44 kg/m2 Jul, Oximetry 98 % Jul, Respiratory Rate 16 /min Jul, Blood pressure systolic 135 mm Hg Jul, Blood pressure diastolic 89 mm Hg Jul, MEDICATIONS Medication SIG (Take, Route, Start Date End Date Status Frequency, Duration) Bentyl 10 MG 1 capsules Orally Four Jul, Aug, Activ e times a day for 30 days Pantoprazole Sodium 40 MG 1 tablet Orally Once a 10 Apr, 2020 Active day for 90 days Metoprolol Tartrate 50 MG 1 tablet with food Active Orally Twice a day for 90 days Paxil 20 MG 1 tablet in the morning Acti ve Orally Once a day for 90 days Aspirin 81 MG Orally Active BusPIRone HCl 10 MG 1 tablet Orally Three Active times a day for 90 days Humira Not-Taking Flonase 50 MCG/ACT 2 spray in each nostril Jul, Active Nasally Once a day for 30 day(s) Ergocalciferol 49977 UNIT 1 capsule Orally once a Active week for 90 days PROCEDURES No Information RESULTS No Results REASON FOR VISIT 3 mth f/u LOBBY, need order for mammogram MEDICAL (GENERAL) HISTORY Type Description Date Medical History High blood pressure Medical History Crohn's disease in remission Medical History Depression with anxiety Surgical History 2000 Surgical History C/Sec Surgical History intestine resection 2001 Surgical History Stomach surgery Goals Section No Information Health Concerns No Information MEDICAL EQUIPMENT No Information MENTAL STATUS No Information FUNCTIONAL STATUS No Information ASSESSMENTS Encounter Date Diagnosis Notes Jul, Obesity, morbid, BMI 50 or higher (ICD-1 0 - E66.01) Jul, Gastroesophageal reflux disease, esophag itis presence not specified (ICD-10 - K21.9) Jul, Seasonal allergic rhinitis, unspecified trigger (ICD-10 - J30.2) Jul, Vitamin D deficiency (ICD-10 - E55.9) Jul, Depression with anxiety (ICD-10 - F41.8) Jul, High blood pressure (ICD-10 - I10) Jul, Crohn's disease in remission (ICD-10 - K 50.90) Jul, Screening for malignant neoplasm of carisa st (ICD-10 - Z12.39) PLAN OF TREATMENT Medication Medication Name Sig Start Date Stop Date BusPIRone HCl 10 MG 1 tablet Orally Three times a day for 90 days Bentyl 10 MG 1 capsules Orally Four times a day Jul, Aug, for 30 days Paxil 20 MG 1 tablet in the morning Orally Once a day for 90 days Flonase 50 MCG/ACT 2 spray in each nostril Nasally Jul, Once a day for 30 day(s) Ergocalciferol 92749 UNIT 1 capsule Orally once a week for 90 days Metoprolol Tartrate 50 MG 1 tablet with food Orally Twice a day for 90 days Pantoprazole Sodium 40 MG 1 tablet Orally Once a day for 90 A ug, 2019 Treatment Notes Assessment Notes Clinical Notes High blood pressure Maintian a low salt DASH diet, exercise, weight loss and decrease stress recommended. Keep BP log and will review next visit. If blood pressure consistently above 140/90 return to clinic for adjustment of meds. Try to quit smoking if you currently smoke. Decrease caffeine intake if possible. Depression with anxiety continue current meds daily. Avoid caffeine. Make sure to exercise daily, take deep breaths, meditate, take frequent breaks. Take yourself away from the situation causing anxiety and stress by going for a 10-15 minute walk. Crohn's disease in remission need to est care with new GI referal generated for as previously saw Was previously on humira injections and did well. Now on tumeric and gluten free diet and stable at this time. need to decrease/ control stress level. Work no more than 40 hours per week to allow body enough rest and prevent stress that may trigger crohn's flareup.Decrease stress, avoid triggers, and followup with GI. Gastroesophageal reflux disease, Gerd- avoid trigger foods esophagitis presence not specified including spicy, oily, ca rbonated drinks, citrus. Do not lay down immediately after eating-wait at least 2 hours, elevate pillow. Eat smaller meals and weight loss recommended for obese patients. Avoid wearing tight clothing.-- continue pepcid Vitamin D deficiency Increase foods rich in vitamin D such as leafy greens, low fat milk or yogurt. Stay physically active. For strong bones and osteoprosis prevention take calcium 1200mg daily and vitamin D3 (2,000mg) daily. continue to stay physically active and do weight bearing exercises.-- start on high dose vit D 50,000IU once weekly x 12 weeks Obesity, morbid, BMI 50 or higher elevated BP, - lose weigh t by maintaining a low fat/cholesterol diet with increase in vegetables& fruits, avoiding sweets and processed snack foods and eating regular smaller portions rather than skipping meals.- incorporate 30-45 minutes of exercise such as brisk walking as tolerated daily beginning with a 15-20 minutes a day and patient may increase time of exercise as you get stronger.-Try to limit alcohol to no more than one drink a day- Recommend to try juicing/ eating salad for breakfast and lunch and regular meal at dinner.- To lose weight decrease daily caloric intake by 500 calories per day. Treatment Notes Test Name Order Date SCREENING MAMMO W CAD 2020-08-09 Next Appt Details 3 Months Reason: Provider Name:Noemy Lopez, 2020-11-03 08:2 0:00 AM, [address], [place], [address], Insurance Providers Payer Name Payer Payer Insured Patient Coverage Coverage End Address Phone Name Relationship to Start Date Mariano [employer] [phone] Cheikh Guardado self 2020 [employer] [id number] [address] [place] [id number]
[2020-08-11] MEDS ORDERED: METHYLPREDNISOLONE 125 MG INJ ONE (17:53)
[2020-08-11] MEDS ORDERED: KETOROLAC 30 MG/ML INJ ONE (17:53)
[2020-08-11 18:18] LABS: Absolute Lymphocytes (CBC) 2.9 K/uL (0.7-4.9); Basophils % 0.8 % (0-1.3); Hematocrit 39.5 % (36.0-45.0); Lymphocytes % 42.3 % (15.3-44.8); MPV 8.9 fL (7.6-11.3)
[2020-08-11 18:19] LABS: Protime INR 1.02
[2020-08-11 18:35] LABS: ALT/SGPT 28 U/L (12-78); AST/SGOT 19 U/L (15-37); Albumin 3.5 g/dL (3.4-5.0); Alkaline Phosphatase 67 U/L (45-117); BUN Blood Urea Nitrogen 9 mg/dL (7-18); Bicarbonate 25 mmol/L (21-32); Bilirubin Direct 0.1 mg/dL (0-0.2); Bilirubin Total 0.4 mg/dL (0.2-1.0); Glucose Level 82 mg/dL (74-106); Magnesium 2.1 mg/dL (1.8-2.4); NT PRO-BNP 40 pg/mL (<125); Potassium 3.8 mmol/L (3.5-5.1); Protein, Total 8.3 g/dL (6.4-8.2); Sodium Level 141 mmol/L (136-145); Troponin (Emerg Dept Use Only) < 0.02 ng/mL (0.0-0.045)
--- NOTE | 2020-08-11 19:04 | EDPHYS ---
Physician Documentation [facility] Name: Dori Guardado Age: 45 yrs Sex: Female : 1975 Arrival Date: 08/11/2020 Time: 16:43 Bed 4 Private MD: Noemy Lopez ED Physician Yogesh Singh HPI: 08/11 18:28 This 45 yrs old Black Female presents to ER via Ambulatory with complaints of Chest kdr Pain. 18:28 The patient or guardian reports chest pain that is located primarily in the substernal kdr area, anterior chest wall, bilaterally. Onset: suddenly, just prior to arrival, 1 hour(s) ago. The pain does not radiate. Associated signs and symptoms: The patient has no apparent associated signs or symptoms, Pertinent negatives: abdominal pain, cough, diaphoresis, dizziness, headache, lower extremity pain, lower extremity swelling, lightheadedness, nausea, near syncope, palpitations, recent travel, shortness of breath. The chest pain is described as sharp, stabbing. Duration: The patient or guardian reports multiple episodes, that are intermittent, that wax and wane. Modifying factors: The symptoms are alleviated by remaining still, the symptoms are aggravated by activity, breathing, cough, deep breath, movement, twisting torso. Severity of pain: At its worst the pain was mild moderate just prior to arrival, in the emergency department the pain has improved mildly. The patient has not experienced similar symptoms in the past. The patient has not recently seen a physician. Historical: - Allergies: 16:49 No Known Allergies; ss - PMHx: 16:49 bowel obstruction; Crohn's; Hypertension; Atrial Fib; ss - PSHx: 16:49 Cholecystectomy; ; Appendectomy; Bowel resection; Hysterectomy; ss - Immunization history:: Flu vaccine is not up to date. - Social history:: Smoking status: Patient denies any tobacco usage or history of. ROS: 18:28 Constitutional: Negative for fever, chills, and weight loss, Eyes: Negative for injury, kdr pain, redness, and discharge, ENT: Negative for injury, pain, and discharge, Neck: Negative for injury, pain, and swelling, Respiratory: Negative for shortness of breath, cough, wheezing, and pleuritic chest pain, Abdomen/GI: Negative for abdominal pain, nausea, vomiting, diarrhea, and constipation, Back: Negative for injury and pain, : Negative for injury, bleeding, discharge, and swelling, MS/Extremity: Negative for injury and deformity, Skin: Negative for injury, rash, and discoloration, Neuro: Negative for headache, weakness, numbness, tingling, and seizure activity. Psych: Negative for depression, anxiety, suicide ideation, homicidal ideation, and hallucinations, Allergy/Immunology: Negative for hives, rash, and allergies, Endocrine: Negative for neck swelling, polydipsia, polyuria, polyphagia, and marked weight changes, Hematologic/Lymphatic: Negative for swollen nodes, abnormal bleeding, and unusual bruising. 18:28 Cardiovascular: Positive for chest pain, with cough, with movement, of the mid-sternal area, Negative for edema, orthopnea, palpitations. Exam: 17:02 ECG was reviewed by the Attending Physician. kdr 18:28 Constitutional: This is a well developed, well nourished patient who is awake, alert, kdr and in no acute distress. Head/Face: Normocephalic, atraumatic. Eyes: Pupils equal round and reactive to light, extra-ocular motions intact. Lids and lashes normal. Conjunctiva and sclera are non-icteric and not injected. Cornea within normal limits. Periorbital areas with no swelling, redness, or edema. Neck: Trachea midline, no thyromegaly or masses palpated, and no cervical lymphadenopathy. Supple, full range of motion without nuchal rigidity, or vertebral point tenderness. No Meningismus. Chest/axilla: Normal chest wall appearance and motion. Nontender with no deformity. No lesions are appreciated. Cardiovascular: Regular rate and rhythm with a normal S1 and S2. No gallops, murmurs, or rubs. Normal PMI, no JVD. No pulse deficits. Respiratory: Lungs have equal breath sounds bilaterally, clear to auscultation and percussion. No rales, rhonchi or wheezes noted. No increased work of breathing, no retractions or nasal flaring. Abdomen/GI: Soft, non-tender, with normal bowel sounds. No distension or tympany. No guarding or rebound. No evidence of tenderness throughout. Back: No spinal tenderness. No costovertebral tenderness. Full range of motion. Skin: Warm, dry with normal turgor. Normal color with no rashes, no lesions, and no evidence of cellulitis. MS/ Extremity: Pulses equal, no cyanosis. Neurovascular intact. Full, normal range of motion. Neuro: Awake and alert, GCS 15, oriented to person, place, time, and situation. Cranial nerves II-XII grossly intact. Motor strength 5/5 in all extremities. Sensory grossly intact. Cerebellar exam normal. Normal gait. Psych: Awake, alert, with orientation to person, place and time. Behavior, mood, and affect are within normal limits. Vital Signs: 16:47 BP 137 / 96; Pulse 65; Resp 18; Temp 98.1; Pulse Ox 97% ; Weight 126.55 kg; Height 5 ss ft. 3 in. (160.02 cm); Pain 6/10; 18:57 BP 119 / 93; Pulse 64; Resp 16; Pulse Ox 95% on R/A; hb 19:18 BP 121 / 95; Pulse 66; Resp 16; Temp 98; Pulse Ox 96% on R/A; rv 16:47 Body Mass Index 49.42 (126.55 kg, 160.02 cm) ss MDM: 18:28 HEART Score: History: Slightly Suspicious (0), ECG: Normal (0), Age: < or = 45 years kdr (0), Risk Factors: 1 or 2 risk factors (1), Troponin: < or = 1 x Normal Limit (0), Total Score = 2. Data reviewed: vital signs, nurses notes, lab test result(s), radiologic studies. 19:03 Patient medically screened. kdr 19:05 Counseling: I had a detailed discussion with the patient and/or guardian regarding: the kdr historical points, exam findings, and any diagnostic results supporting the discharge/admit diagnosis, lab results, radiology results, the need for outpatient follow up, for definitive care. Special discussion: Based on the patient's history, exam, and Dx evaluation, there is no indication for emergent intervention or inpatient Tx. It is understood by the patient/guardian that if the Sx's persist or worsen they need to return immediately for re-evaluation. I discussed with the patient/guardian in detail that at this point there is no indication for admission to the hospital. It is understood, however, that if the symptoms persist or worsen the patient needs to return immediately for re-evaluation. ED course: The patient felt much better with the interventions given. 08/11 17:37 Order name: Basic Metabolic Panel; Complete Time: 18:59 kdr 08/11 17:37 Order name: CBC with Diff; Complete Time: 18:28 kdr 08/11 17:37 Order name: LFT's; Complete Time: 18:59 kdr 08/11 17:37 Order name: Magnesium; Complete Time: 18:59 kdr 08/11 17:37 Order name: NT PRO-BNP; Complete Time: 18:59 kdr 08/11 17:37 Order name: PT-INR; Complete Time: 18:28 kdr 08/11 16:59 Order name: EKG - Nurse/Tech; Complete Time: 16:59 ss 08/11 17:37 Order name: Troponin (emerg Dept Use Only); Complete Time: 18:59 kdr 08/11 17:37 Order name: XRAY Chest (1 view) kdr 08/11 17:37 Order name: EKG; Complete Time: 17:38 kdr 08/11 17:37 Order name: Cardiac monitoring; Complete Time: 18:17 kdr 08/11 17:37 Order name: IV Saline Lock; Complete Time: 18:17 kdr 08/11 17:37 Order name: Labs collected and sent; Complete Time: 18:17 kdr 08/11 17:37 Order name: O2 Per Protocol; Complete Time: 18:17 kdr 08/11 17:37 Order name: O2 Sat Monitoring; Complete Time: 18:17 kdr EC:02 Rate is 63 beats/min. Rhythm is regular, Sinus Rhythm with No ectopy. QRS [place] is kdr Normal. Left axis deviation noted. NV interval is normal. QRS interval is normal. QT interval is normal. No Q waves. Clinical impression: NSR w/ Non-specific ST/T Changes. Administered Medications: 18:16 CANCELLED (ok to change to IM per Dr. Singh): TORadol - Ketorolac 15 mg IVP once ph 18:16 CANCELLED (ok to change to IM per Dr. Singh): SOLU-Medrol 125 mg IVP once ph 18:16 Drug: TORadol - Ketorolac 15 mg Route: IM; Site: left deltoid; ph 19:19 Follow up: Response: No adverse reaction rv 18:16 Drug: SOLU-Medrol 125 mg Route: IM; Site: right deltoid; ph 19:18 Follow up: Response: No adverse reaction rv Disposition: 08/11/20 19:03 Discharged to Home. Impression: Chest pain on breathing, Chest pain, unspecified. - Condition is Stable. - Discharge Instructions: Costochondritis, Chest Wall Pain, [id number], Nonspecific Chest Pain, [id number]. - Prescriptions for Diclofenac Sodium 75 mg Oral Tablet Sustained Release - take 1 tablet by ORAL route 2 times per day; 30 tablet. Medrol ([place]) 4 mg Oral Tablets, Dose Pack - take 1 tablet by ORAL route as directed - follow package instructions; 1 packet. - Medication Reconciliation Form, Thank You Letter form. - Follow up: Noemy Lopez MD; When: 2 - 3 days; Reason: If symptoms return, Further diagnostic work-up, Recheck today's complaints, Continuance of care, Re-evaluation by your physician. - Problem is new. - Symptoms have improved. Signatures: Dispatcher [employer] EDMS Yogesh Singh MD MD [facility] Zoila Riddle RN RN Nathalie Singleton RN RN Rl Solis, RN RN rv Corrections: (The following items were deleted from the chart) 18:16 17:37 TORadol - Ketorolac 15 mg IVP once ordered. kdr ph 18:16 17:37 SOLU-Medrol 125 mg IVP once ordered. kdr ph 18:16 18:15 TORadol - Ketorolac 15 mg IVP once ordered. ph ph 18:16 18:15 SOLU-Medrol 125 mg IVP once ordered. ph ph 19:19 19:03 08/11/2020 19:03 Discharged to Home. Impression: Chest pain on breathing; Chest rv pain, unspecified. Condition is Stable. Forms are Medication Reconciliation Form, Thank You Letter, Antibiotic Education, Prescription Opioid Use. Follow up: Noemy Lpoez; When: 2 - 3 days; Reason: If symptoms return, Further diagnostic work-up, Recheck today's complaints, Continuance of care, Re-evaluation by your physician. Problem is new. Symptoms have improved. kdr
--- NOTE | 2020-08-11 19:04 | ER ---
Nurse's Notes [facility] Name: Dori Guardado Age: 45 yrs Sex: Female : 1975 Arrival Date: 08/11/2020 Time: 16:43 Bed 4 Private MD: Noemy Lopez Diagnosis: Chest pain on breathing;Chest pain, unspecified Presentation: 08/11 16:47 Chief complaint: Patient states: CP for 1 hour intermittent. Notices pain with deep ss breathing also. No cough or SOB. No fever. Coronavirus screen: Client denies travel out of the [place] in the last 14 days. congestion, At this time, the client does not indicate any symptoms associated with coronavirus-19. Ebola Screen: Patient denies travel to an Ebola-affected area in the 21 days before illness onset. Initial Sepsis Screen: Does the patient meet any 2 criteria? No. Patient's initial sepsis screen is negative. Does the patient have a suspected source of infection? No. Patient's initial sepsis screen is negative. Risk Assessment: Do you want to hurt yourself or someone else? Patient reports no desire to harm self or others. Onset of symptoms was August 11, 2020. 16:47 Method Of Arrival: Ambulatory ss 16:47 Acuity: KASH 3 ss Historical: - Allergies: 16:49 No Known Allergies; ss - PMHx: 16:49 bowel obstruction; Crohn's; Hypertension; Atrial Fib; ss - PSHx: 16:49 Cholecystectomy; ; Appendectomy; Bowel resection; Hysterectomy; ss - Immunization history:: Flu vaccine is not up to date. - Social history:: Smoking status: Patient denies any tobacco usage or history of. Screenin:28 Abuse screen: Denies threats or abuse. Denies injuries from another. Nutritional ph screening: No deficits noted. Tuberculosis screening: No symptoms or risk factors identified. Fall Risk None identified. Assessment: 17:40 General: Appears in no apparent distress. Behavior is calm, cooperative. Pain: hb Complains of pain in chest Pain does not radiate. Pain currently is 8 out of 10 on a pain scale. Pain began suddenly, 3 hours ago. Neuro: Level of Consciousness is awake, alert, obeys commands, Oriented to person, place, time, situation. Cardiovascular: Capillary refill < 3 seconds Patient's skin is warm and dry. Respiratory: Respiratory effort is even, unlabored, Respiratory pattern is regular, symmetrical. GI: No signs and/or symptoms were reported involving the gastrointestinal system. : No signs and/or symptoms were reported regarding the genitourinary system. EENT: No signs and/or symptoms were reported regarding the EENT system. Derm: Skin is pink, warm \T\ dry. Musculoskeletal: No signs and/or symptoms reported regarding the musculoskeletal system. 18:17 Reassessment: Unable to establish PIV access. Dr. Singh notified, meds given IM as ph ordered. NAD. VSS. Family remains at bedside. Vital Signs: 16:47 BP 137 / 96; Pulse 65; Resp 18; Temp 98.1; Pulse Ox 97% ; Weight 126.55 kg; Height 5 ss ft. 3 in. (160.02 cm); Pain 6/10; 18:57 BP 119 / 93; Pulse 64; Resp 16; Pulse Ox 95% on R/A; hb 19:18 BP 121 / 95; Pulse 66; Resp 16; Temp 98; Pulse Ox 96% on R/A; rv 16:47 Body Mass Index 49.42 (126.55 kg, 160.02 cm) ED Course: 16:43 Patient arrived in ED. ag5 16:43 Noemy Lopez MD is Private Physician. ag5 16:44 Yogesh Singh MD is Attending Physician. kdr 16:49 Triage completed. ss 16:49 Arm band placed on. ss 16:59 EKG completed in triage. Results shown to MD. ss 17:28 Nathalie Singleton, RN is Primary Nurse. ph 17:28 Patient has correct armband on for positive identification. Placed in gown. Bed in low ph position. Call light in reach. Side rails up X 1. quality assurance monitor body on. Pulse ox on. NIBP on. Door closed. Noise minimized. Warm blanket given. 18:00 Patient maintains SpO2 saturation greater than 95% on room air. ph 18:02 Missed attempt(s): 24 gauge in right foot. Bleeding controlled, band aid applied, ph catheter tip intact. 18:07 Missed attempt(s): 22 gauge in left foot. ph 18:15 XRAY Chest (1 view) In Process Unspecified. EDMS 19:02 Noemy Lopez MD is Referral Physician. kdr 19:19 No provider procedures requiring assistance completed. IV discontinued, intact, rv bleeding controlled, No redness/swelling at site. Pressure dressing applied. Administered Medications: 18:16 CANCELLED (ok to change to IM per Dr. Singh): TORadol - Ketorolac 15 mg IVP once ph 18:16 CANCELLED (ok to change to IM per Dr. Singh): SOLU-Medrol 125 mg IVP once ph 18:16 Drug: TORadol - Ketorolac 15 mg Route: IM; Site: left deltoid; ph 19:19 Follow up: Response: No adverse reaction rv 18:16 Drug: SOLU-Medrol 125 mg Route: IM; Site: right deltoid; ph 19:18 Follow up: Response: No adverse reaction rv Outcome: 19:03 Discharge ordered by MD. kdr 19:19 Discharged to home ambulatory. rv 19:19 Condition: good 19:19 Discharge instructions given to patient, Instructed on discharge instructions, follow up and referral plans. medication usage, Demonstrated understanding of instructions, follow-up care, medications, Prescriptions given X 2. 19:19 Patient left the ED. rv Signatures: Dispatcher [employer] EDMS Yogesh Singh MD MD kdr Zoila Riddle RN RN ss Hall, Patricia, RN RN ph Baxter, Heather, Rl Joshi RN, RN RN Pelon Renteria ag5
--- NOTE | 2020-08-11 19:04 | RAD REPORT ---
EXAM DESCRIPTION: RAD - Chest Single View - 08/11/2020 6:14 pm CLINICAL HISTORY: CHEST PAIN Chest pain. COMPARISON: Chest Single View dated 07/14/2020; Abdomen 1 View (KUB) dated 07/03/2020; Chest Single V iew dated 06/22/2020; Chest Pa And Lat (2 Views) dated 04/25/2020 FINDINGS: Portable technique limits examination quality. The lungs are grossly clear. The heart is mildly enlarged in size. No displaced fractures. IMPRESSION: No acute intrathoracic process suspected.
[2020-08-12 02:56] VITALS: BP 121/95; TEMP 98; O2SAT 96
--- NOTE | 2020-08-13 06:09 | EKG ---
Test Date: 2020-08-11 Test Time: 16:56:11 Mid Level Business Analyst: KERI MEASUREMENT RESULTS: Intervals: Rate: 63 AR: 176 QRSD: 74 QT: 386 QTc: 395 [place]: P: 32 AR: 176 QRS: -17 T: 4 INTERPRETIVE STATEMENTS: Normal sinus rhythm Minimal voltage criteria for LVH, may be normal variant Borderline ECG Compared to ECG 07/14/2020 03:26:54 Left ventricular hypertrophy now present Sinus bradycardia no longer present Electronically Signed On 08-13-20 06:03:32 [employer] by Matthew Lofton
== END 2020-08-11 19:19 | disposition home or self-care (01) ==
LOC: ER 16:42
DX: R07.89 Other chest pain (principal); I10 Essential (primary) hypertension
CPT/HCPCS: 93005; 85025; 80048; 36415; 83735; 85610; 80076; 84484; 83880; 71045; 96372; 99285; J2930

== ENCOUNTER 2020-11-02 22:28 | Emergency (ER) | payer OTHER ==
[2020-11-03 00:13] LABS: Absolute Lymphocytes (CBC) 2.8 K/uL (0.7-4.9); Basophils % 1.5 % (0-1.3); Hematocrit 36.9 % (36.0-45.0); Lymphocytes % 37.7 % (15.3-44.8); MPV 8.7 fL (7.6-11.3); RBC Red Blood Cell Count 4.73 M/uL (3.86-4.86)
[2020-11-03 00:15] LABS: Protime INR 1.04
[2020-11-03 00:28] LABS: ALT/SGPT 27 U/L (12-78); AST/SGOT 19 U/L (15-37); Albumin 3.5 g/dL (3.4-5.0); Alkaline Phosphatase 75 U/L (45-117); BUN Blood Urea Nitrogen 8 mg/dL (7-18); Bicarbonate 26 mmol/L (21-32); Bilirubin Direct 0.1 mg/dL (0-0.2); Bilirubin Total 0.5 mg/dL (0.2-1.0); Glucose Level 115 mg/dL (74-106); Magnesium 1.8 mg/dL (1.8-2.4); NT PRO-BNP 19 pg/mL (<125); Potassium 3.7 mmol/L (3.5-5.1); Protein, Total 8.7 g/dL (6.4-8.2); Sodium Level 141 mmol/L (136-145); Troponin (Emerg Dept Use Only) < 0.02 ng/mL (0.0-0.045)
[2020-11-03 00:39] LABS: Urine Blood NEGATIVE (NEG); Urine Glucose NEGATIVE (NEG); Urine Protein NEGATIVE (NEG); Urine Specific Gravity >1.030 (1.005-1.030); Urine pH 5.5 (5.0-7.0)
--- NOTE | 2020-11-03 00:53 | ER ---
Nurse's Notes [facility] Name: Dori Guardado Age: 45 yrs Sex: Female : 1975 Arrival Date: 11/02/2020 Time: 22:29 Bed 20 Private MD: Noemy Lopez Diagnosis: Pain in left shoulder;Pain in right shoulder Presentation: 11/02 22:31 Chief complaint: Patient states: Right shoulder pain that radiates to the right arm, sg states has had pain there all day, worsening now. States I thought it was my chrons acting up but then my was like no you should get that checked out because it can be heart related too. no other symptoms reported for triage at this time. Coronavirus screen: Client denies travel out of the [place] in the last 14 days. At this time, the client does not indicate any symptoms associated with coronavirus-19. Ebola Screen: Patient negative for fever greater than or equal to 101.5 degrees Fahrenheit, and additional compatible Ebola Virus Disease symptoms Patient denies exposure to infectious person. Patient denies travel to an Ebola-affected area in the 21 days before illness onset. No symptoms or risks identified at this time. Initial Sepsis Screen: Does the patient meet any 2 criteria? No. Patient's initial sepsis screen is negative. Does the patient have a suspected source of infection? No. Patient's initial sepsis screen is negative. Risk Assessment: Do you want to hurt yourself or someone else? Patient reports no desire to harm self or others. Onset of symptoms was November 02, 2020. Care prior to arrival: None. Transition of care: patient was not received from another setting of care. 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 - Social history:: Smoking status: Patient denies any tobacco usage or history of. - Family history:: not pertinent. Screenin:26 Abuse screen: Denies threats or abuse. Denies injuries from another. Nutritional sf screening: No deficits noted. Tuberculosis screening: No symptoms or risk factors identified. Fall Risk None identified. No fall in past 12 months (0 pts). No secondary diagnosis (0 pts). No IV (0 pts). Ambulatory Aid- None/Bed Rest/Nurse Assist (0 pts). Gait- Normal/Bed Rest/Wheelchair (0 pts) Mental Status- Oriented to own ability (0 pts). Total Jane Fall Scale indicates No Risk (0-24 pts). Assessment: 23:20 General: Appears in no apparent distress. comfortable, well groomed, Behavior is calm, sf cooperative, appropriate for age. Pain: Complains of pain in left scapular area and thoracic area Quality of pain is described as tender. Neuro: No deficits noted. Level of Consciousness is awake, alert, Oriented to person, place, time, situation, Appropriate for age. Cardiovascular: No deficits noted. Patient's skin is warm and dry. Rhythm is sinus rhythm. Respiratory: No deficits noted. Airway is patent Respiratory effort is even, unlabored, Respiratory pattern is regular, symmetrical. Musculoskeletal: Circulation, motion, and sensation intact. Range of motion: limited in left shoulder due to pain Tenderness present in left scapular area and thoracic area Reports pain in left scapular area and thoracic area. 11/03 01:00 Reassessment: Patient appears in no apparent distress at this time. Patient and/or sf family updated on plan of care and expected duration. Pain level reassessed. Patient is alert, oriented x 3, equal unlabored respirations, skin warm/dry/pink. Vital Signs: 11/02 22:20 BP 130 / 85; Pulse 78; Resp 16; Pulse Ox 97% ; sf 22:31 BP 148 / 86; Pulse 76; Resp 18; Temp 97.8(TE); Pulse Ox 100% on R/A; sg 23:00 BP 130 / 85; Pulse 79; Resp 16; Pulse Ox 96% ; sf 11/03 00:00 BP 130 / 91; Pulse 70; Resp 16; Pulse Ox 93% on R/A; sf Vitals: 11/02 22:20 Cardiac Rhythm Assessment Sinus rhythm. sf ED Course: 22:29 Patient arrived in ED. cl3 22:31 Arm band placed on. sg 22:37 Noemy Lopez MD is Private Physician. sg 22:39 Triage completed. sg 22:43 Rivera Medellin, RN is Primary Nurse. sf 22:50 EKG done, by ED staff, reviewed by Yeison Plata MD. sg 23:16 Yeison Plata MD is Attending Physician. ma2 23:20 Placed in gown. Bed in low position. Call light in reach. Side rails up X 1. Cardiac sf monitor on. Pulse ox on. NIBP on. 23:55 Initial lab(s) drawn, by pr, sent to lab. Urine collected: clean catch specimen, clear. sf Inserted saline lock: 22 gauge in right hand, using aseptic technique. Blood collected. 11/03 00:17 XRAY Chest (1 view) In Process Unspecified. EDMS 01:31 No provider procedures requiring assistance completed. IV discontinued, intact, sf bleeding controlled, No redness/swelling at site. Pressure dressing applied. Administered Medications: No medications were administered Outcome: 00:52 Discharge ordered by . ma2 01:32 Discharged to home ambulatory. sf 01:32 Condition: stable 01:32 Discharge instructions given to patient, Instructed on discharge instructions, follow up and referral plans. medication usage, Demonstrated understanding of instructions, follow-up care, medications, Prescriptions given X 2. 01:37 Patient left the ED. sf Signatures: Dispatcher [employer] EDMS Rivera Gracia, RN RN Yeison Plata MD MD ma2 Lewis, Charde cl3 Rivera Medellin, LEONA RN sf
--- NOTE | 2020-11-03 00:53 | EDPHYS ---
Physician Documentation [facility] Name: Dori Guardado Age: 45 yrs Sex: Female : 1975 Arrival Date: 11/02/2020 Time: 22:29 Bed 20 Private MD: Noemy Lopez ED Physician Yeison Plata HPI: 11/02 23:39 This 45 yrs old Black Female presents to ER via Ambulatory with complaints of Shoulder ma2 Pain - radiates to arm. 23:39 This 45 yrs old Black Female presents to ER via Ambulatory with complaints of Shoulder ma2 Pain - radiates to arm. 23:39 The patient or guardian complains of pain. Onset: The symptoms/episode began/occurred ma2 gradually, 2 day(s) ago. Associated signs and symptoms: Pertinent negatives: dyspnea, shortness of breath, tingling. Severity of symptoms: At their worst the symptoms were mild, in the emergency department the symptoms are unchanged. The patient has not experienced similar symptoms in the past. bilateral shoulder "soreness" associted with crohns flare, she has diarrhea and mild abdominal pain, hx of crohns . 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 - Social history:: Smoking status: Patient denies any tobacco usage or history of. - Family history:: not pertinent. ROS: 23:39 Constitutional: Negative for fever, chills, and weight loss. ma2 23:39 All other systems are negative. Exam: 23:39 Constitutional: This is a well developed, well nourished patient who is awake, alert, ma2 and in no acute distress. Neck: Trachea midline, no thyromegaly or masses palpated, and no cervical lymphadenopathy. Supple, full range of motion without nuchal rigidity, or vertebral point tenderness. No Meningismus. Chest/axilla: Normal chest wall appearance and motion. Nontender with no deformity. No lesions are appreciated. Cardiovascular: Regular rate and rhythm with a normal S1 and S2. No gallops, murmurs, or rubs. Normal PMI, no JVD. No pulse deficits. Respiratory: Lungs have equal breath sounds bilaterally, clear to auscultation and percussion. No rales, rhonchi or wheezes noted. No increased work of breathing, no retractions or nasal flaring. Abdomen/GI: Soft, non-tender, with normal bowel sounds. No distension or tympany. No guarding or rebound. No evidence of tenderness throughout. Back: No spinal tenderness. No costovertebral tenderness. Full range of motion. has bilateral shoulders ttp mild, Skin: Warm, dry with normal turgor. Normal color with no rashes, no lesions, and no evidence of cellulitis. MS/ Extremity: Pulses equal, no cyanosis. Neurovascular intact. Full, normal range of motion. Neuro: Awake and alert, GCS 15, oriented to person, place, time, and situation. Cranial nerves II-XII grossly intact. Motor strength 5/5 in all extremities. Sensory grossly intact. Cerebellar exam normal. Normal gait. Vital Signs: 22:20 BP 130 / 85; Pulse 78; Resp 16; Pulse Ox 97% ; sf 22:31 BP 148 / 86; Pulse 76; Resp 18; Temp 97.8(TE); Pulse Ox 100% on R/A; sg 23:00 BP 130 / 85; Pulse 79; Resp 16; Pulse Ox 96% ; sf 11/03 00:00 BP 130 / 91; Pulse 70; Resp 16; Pulse Ox 93% on R/A; sf MDM: 11/02 23:16 Patient medically screened. ma2 23:39 Differential diagnosis: tendonitis, muscle sprain vs crohns flare. Data reviewed: vital ma2 signs, nurses notes. Counseling: I had a detailed discussion with the patient and/or guardian regarding: the historical points, exam findings, and any diagnostic results supporting the discharge/admit diagnosis, the presence of at least one elevated blood pressure reading (>120/80) during this emergency department visit, the need for outpatient follow up. 11/03 00:51 Response to treatment: the patient's symptoms have markedly improved after treatment. mo2 11/02 23:27 Order name: Basic Metabolic Panel mo2 11/02 23:27 Order name: CBC with Diff mo2 11/02 23:27 Order name: LFT's mo2 11/02 23:27 Order name: Magnesium mo2 11/02 23:27 Order name: NT PRO-BNP mo2 11/02 23:27 Order name: PT-INR mo2 11/02 23:27 Order name: Troponin (emerg Dept Use Only); Complete Time: 00:40 ma2 11/02 23:27 Order name: Basic Metabolic Panel; Complete Time: 00:40 EDMS 11/02 23:27 Order name: CBC with Automated Diff; Complete Time: 00:40 EDMS 11/02 23:27 Order name: Liver (Hepatic) Function; Complete Time: 00:40 EDMS 11/02 23:27 Order name: Magnesium; Complete Time: 00:40 EDMS 11/02 23:27 Order name: NT PRO-BNP; Complete Time: 00:40 EDMS 11/02 23:27 Order name: Protime (+INR); Complete Time: 00:40 EDMS 11/03 00:09 Order name: Urine Dipstick--Ancillary (enter results); Complete Time: 00:40 2 11/02 22:45 Order name: EKG - Nurse/Tech; Complete Time: 22:57 sg 0208 23:27 Order name: XRAY Chest (1 view) mo2 11/02 23:27 Order name: EKG; Complete Time: 23:28 ma2 11/02 23:27 Order name: Cardiac monitoring; Complete Time: 23:29 ma2 11/02 23:27 Order name: IV Saline Lock; Complete Time: 00:02 ma2 11/02 23:27 Order name: Labs collected and sent; Complete Time: 00:02 ma2 11/02 23:27 Order name: O2 Per Protocol; Complete Time: 23:29 ma2 11/02 23:27 Order name: O2 Sat Monitoring; Complete Time: 23:29 ma2 11/02 23:27 Order name: Urine Dipstick-Ancillary (obtain specimen); Complete Time: 00:02 ma2 Administered Medications: No medications were administered Disposition: 11/03/20 00:52 Discharged to Home. Impression: Pain in left shoulder, Pain in right shoulder. - Condition is Stable. - Prescriptions for Diclofenac Sodium 75 mg Oral Tablet Sustained Release - take 1 tablet by ORAL route 2 times per day; 30 tablet. Medrol ([place]) 4 mg Oral Tablets, Dose Pack - take 1 tablet by ORAL route as directed - follow package instructions; 1 packet. - Medication Reconciliation Form, Thank You Letter, Antibiotic Education, Prescription Opioid Use form. - Follow up: Private Physician; When: Tomorrow; Reason: Continuance of care. Signatures: Dispatcher [employer] EDRivera Partida RN RN Yeison Plata MD MD mo2 Rivera Medellin RN RN sf Corrections: (The following items were deleted from the chart) 01:37 00:52 11/03/2020 00:52 Discharged to Home. Impression: Pain in left shoulder; Pain in sf right shoulder. Condition is Stable. Prescriptions for Diclofenac Sodium 75 mg Oral Tablet Sustained Release - take 1 tablet by ORAL route 2 times per day; 30 tablet, Medrol ([place]) 4 mg Oral Tablets, Dose Pack - take 1 tablet by ORAL route as directed - follow package instructions; 1 packet. and Forms are Medication Reconciliation Form, Thank You Letter, Antibiotic Education, Prescription Opioid Use. Follow up: Private Physician; When: Tomorrow; Reason: Continuance of care. ma2
[2020-11-03 03:21] VITALS: TEMP 97.8
[2020-11-03 03:24] VITALS: BP 130/91; O2SAT 93
--- NOTE | 2020-11-03 07:39 | RAD REPORT ---
EXAM DESCRIPTION: Elder Single View11/03/2020 12:16 am CLINICAL HISTORY: Congestion COMPARISON: 2019 FINDINGS: The lungs appear clear of acute infiltrate. The heart is probably borderline enlarged. Up per lobe vessels are prominent which may indicate pulmonary venous hypertension
--- NOTE | 2020-11-03 18:42 | EKG ---
Test Date: 2020-11-02 Test Time: 22:52:26 Harvest Worker: SWG MEASUREMENT RESULTS: Intervals: Rate: 71 CT: 152 QRSD: 80 QT: 382 QTc: 415 [place]: P: 26 CT: 152 QRS: -8 T: 12 INTERPRETIVE STATEMENTS: Normal sinus rhythm Minimal voltage criteria for LVH, may be normal variant Borderline ECG Compared to ECG 08/11/2020 16:56:11 No significant changes Electronically Signed On 11-03-20 18:40:16 HAND GLOVE CLEANER by Matthew Lofton
--- OUTSIDE RECORDS SUMMARY | 2020-11-04 02:34 | XMS REPORT | Continuity of Care Document ---
:1975 Author Organization [facility] t Address [address] [place] [address] Care Team Providers Name Role Phone Unavailable Unavailable Unavailable Problems This patient has no known problems. Allergies, Adverse Reactions, Alerts This patient has no known allergies or adverse reactions. Medications Ordered Filled Start Stop Current Ordering Indication Dosage Frequency Signature Comments Components Source Medication Medication Date Date Medication? Clinician (SIG) Name Name Pantoprazol Pantoprazol 2019-0 Yes Na Lopez [address] [facility] Sodium e Sodium 8-10 [facility]: [facility] 00 [facility] Ergocalcife Ergocalcife 2018- 2020- No Na Lopez [address] [facility] rol rol 1-18 02-16 [facility]: [facility]:00 Memoria 00 :00 [facility] Paxil Paxil Yes Na Lopez [address] [facility] 4-03 in the [facility] - 00:00: morning Mem[facility] 00 [facility] Humira Humira Yes Na Lopez not [facility] defined [facility] Aspirin Aspirin Yes Na Lopez not [facility] defined [facility] BusPIRone BusPIRone Yes Na Lopez [address] [facility] HCl HCl [facility] Metoprolol Metoprolol Yes Na Lopez [address] [facility] Tartrate Tartrate with food [facility] Procedures This patient has no known procedures. Encounters Start End Encounter Admission Attending Care Care Encounter Source Date/Time Date/Time Type Type Clinicians Facility Department ID 2020-08-03 2020-08-03 Outpatient [facility] [id number] [facility]00 [facility] Outpati ent Clinics 2020-05-04 2020-05-04 [facility] [id number] [address] 10:10:00 10:10:00 [place] [employer] s - Drive [facility] Medicine l Medicine Outpati ent Clinics 2020-05-01 2020-05-01 [facility] [id number] [address] 09:40:00 09:40:00 t [place] [employer] s - Drive [facility] Medicine l Medicine Outpati ent Clinics 2020-02-19 2020-02-19 [facility] [id number] [address] 16:06:00 16:06:00 t [facility] [employer] [facility] [employer] [address] [facility] l Medicine Outpati ent Clinics 2019-12-12 2019-12-12 [facility] [id number] [address] 15:41:00 15:41:00 t [place] [employer] s - Drive [facility] Medicine l Medicine Outpati ent Clinics 2019-09-16 2019-09-16 [facility] [id number] [address] 14:40:00 14:40:00 t [place] [employer] s - Drive [facility] l Medicine Outpati ent Clinics 2019-08-15 2019-08-15 [facility] [id number] 09:27:00 09:27:00 t [place] [employer] s - Drive [facility] Medicine l Medicine Outpati ent Clinics 2019-08-12 2019-08-12 [facility] [id number] [address] 09:00:00 09:00:00 t [place] [employer] s - Drive [facility] l Medicine Outpati ent Clinics 2019-07-31 2019-07-31 [facility] [id number] [address] 11:46:00 11:46:00 t [place] [employer] s - Drive [facility] Medicine l Medicine Outpati ent Clinics 2019-07-29 2019-07-29 [facility] [id number] 09:40:00 09:40:00 t [place] [employer] s - Drive [facility] Medicine Outpati ent Clinics 2019-06-02 2019-06-02 [facility] [id number] 09:38:00 09:38:00 [facility] Outpati ent Clinics 2019-05-31 2019-05-31 [facility] [id number] 11:30:00 11:30:00 [facility] Outpati ent Clinics 2018-01-19 2018-01-19 [facility] [id number] 08:11:00 08:11:00 t [employer] [facility] Medicine Outpati ent Clinics 2018-01-18 2018-01-18 [facility] [id number] [address] 10:15:00 10:15:00 t [employer] [facility] Medicine Outpati ent Clinics 2017-12-26 2017-12-26 [facility] [id number] 09:30:00 09:30:00 t [employer] [facility] Medicine Outpati ent Clinics Results This patient has no known results.
== END 2020-11-03 01:37 | disposition home or self-care (01) ==
LOC: ER 22:28
DX: M25.512 Pain in left shoulder (principal); M25.511 Pain in right shoulder; I10 Essential (primary) hypertension; I48.91 Unspecified atrial fibrillation; Z79.82 Long term (current) use of aspirin
CPT/HCPCS: 36415; 71045; 80048; 80076; 81003; 83735; 83880; 84484; 85025; 85610; 93005; 99284

== ENCOUNTER 2020-11-22 10:38 | Emergency (ER) | payer OTHER ==
--- OUTSIDE RECORDS SUMMARY | 2020-11-22 10:41 | XMS REPORT | Continuity of Care Document ---
:1975 Author Organization [facility] t Address [address] [place] [address] Care Team Providers Name Role Phone Unavailable [...] Sodium 8-10 [facility] Ergocalcife Ergocalcife 2018- 2020- No Na Lopez [address] [facility] rol rol 1-18 02-16 [facility]: 00:00 [facility]oria 00 :00 [facility] Paxil Paxil Yes Na Lopez [address] [facility] 4-03 in the [facility] - 00:00: morning [facility] 00 [facility] Humira Humira Yes Na Lopez not [facility] defined [facility] Aspirin Aspirin Yes Na Lopez not [facility] defined [facility] BusPIRone BusPIRone Yes Na Lopez [address] [facility] HCl HCl [facility] Metoprolol Metoprolol Yes Na Lopez [address] [facility] Tartrate Tartrate with food [facility] ent [facility] Procedures This patient has no known procedures. Encounters Start End Encounter Admission Attending Care Care Encounter Source Date/Time Date/Time Type Type Clinicians Facility Department ID 2020-11-03 2020-11-03 Outpatient [facility] [id number] [facility] 2020-08-03 2020-08-03 Outpatient [facility] [id number] [facility] 2020-05-04 2020-05-04 [facility] [id number] 10:10:00 10:10:00 t [employer] s - Drive [facility] Medicine l Medicine Outpati ent Clinics 2020-05-01 2020-05-01 [facility] [id number] 09:40:00 09:40:00 t [employer] [facility] Medicine l Medicine Outpati ent Clinics 2020-02-19 2020-02-19 [facility] [id number] 16:06:00 16:06:00 t [facility] [address] [facility] Medicine Outpati ent Clinics 2019-12-12 2019-12-12 [facility] [id number] 15[facility]41:00 15:41:00 t [employer] [facility] Medicine Outpati ent Clinics 2019-09-16 2019-09-16 [facility] [id number] 14:40:00 14:40:00 t [employer] [employer] s - Drive [facility] Medicine l Medicine Outpati ent Clinics 2019-08-15 2019-08-15 [facility] [id number] 09:27:00 09:27:00 t [place] [employer] s - Drive [facility] Medicine Medicine Outpati ent Clinics 2019-08-12 2019-08-12 [facility] [id number] 09:00:00 09:00:00 t [place] [employer] s - Drive [facility] Medicine Outpati ent Clinics 2019-07-31 2019-07-31 [facility] [id number] 11:46:00 11:46:00 t [place] [employer] [facility] Medicine Outpati ent Clinics 2019-07-29 2019-07-29 [facility] [id number] 09:40:00 09:40:00 t [employer] [facility] Medicine Outpati ent Clinics 2019-06-02 2019-06-02 [facility] [id number] 09:38:00 09:38:00 t [facility] Clinic l Outpati ent Clinics 2019-05-31 2019-05-31 [facility] [id number] 11:30:00 11:30:00 t [facility] Clinic l Outpati ent Clinics 2018-01-19 2018-01-19 [facility] [id number] 08:11:00 08:11:00 t [facility] Outpati ent Clinics 2018-01-18 2018-01-18 [facility] [id number] 10:15:00 10:15:00 t [facility] Medicine Outpati ent Clinics 2017-12-26 2017-12-26 [facility] [id number] 09:30:00 09:30:00 t [facility] Medicine Outpati ent Clinics Results This patient has no known results.
[2020-11-22 11:51] LABS: Absolute Lymphocytes (CBC) 2.4 K/uL (0.7-4.9); Basophils % 1.4 % (0-1.3); Lymphocytes % 34.3 % (15.3-44.8); MPV 8.7 fL (7.6-11.3); RBC Red Blood Cell Count 4.69 M/uL (3.86-4.86)
[2020-11-22] MEDS ORDERED: MORPHINE 4 MG/ML SYR ONE ×2 (12:13→15:02)
[2020-11-22] MEDS ORDERED: ONDANSETRON 4 MG/2 ML VIAL ONE (12:13)
[2020-11-22] MEDS ORDERED: NA CHLORIDE 0.9% 1,000 ML ONE (12:13)
[2020-11-22 12:19] LABS: ALT/SGPT 29 U/L (12-78); AST/SGOT 21 U/L (15-37); Albumin 3.3 g/dL (3.4-5.0); Alkaline Phosphatase 70 U/L (45-117); BUN Blood Urea Nitrogen 11 mg/dL (7-18); Bicarbonate 25 mmol/L (21-32); Bilirubin Direct < 0.1 mg/dL (0-0.2); Bilirubin Total 0.5 mg/dL (0.2-1.0); Glucose Level 91 mg/dL (74-106); Lipase 49 U/L (73-393); Potassium 3.9 mmol/L (3.5-5.1); Protein, Total 8.4 g/dL (6.4-8.2); Sodium Level 141 mmol/L (136-145)
--- NOTE | 2020-11-22 12:58 | RAD REPORT ---
EXAM DESCRIPTION: CT - Abdomen Pelvis W Contrast - 11/22/2020 12:34 pm CLINICAL HISTORY: Abdominal pain COMPARISON: 2019 TECHNIQUE: Computed axial tomography of the abdomen pelvis was obtained. 100 cc Isovue-300 was admin istered intravenously. Oral contrast was not requested which limits evaluation of bowel. All CT scans are performed using dose optimization technique as appropriate and may include automated exposure control or mA/KV adjustment according to patient size. FINDINGS: The liver, spleen, pancreas, adrenal and kidneys appear unremarkable. There is no evidence of diverticulitis. Right hemicolectomy. Bowel caliber wall thickness is normal Cholecystectomy IMPRESSION: No acute abnormality is displayed.
--- NOTE | 2020-11-22 14:27 | EDPHYS ---
Physician Documentation [facility] Name: Dori Guardado Age: 45 yrs Sex: Female : 1975 Arrival Date: 11/22/2020 Time: 10:41 Bed 7 Private MD: Noemy Lopez ED Physician Hardy Yee HPI: 11/22 11:26 This 45 yrs old Black Female presents to ER via Ambulatory with complaints of Abdominal pm1 Pain. 11:26 The patient presents with abdominal pain. pm1 11:26 Onset: The symptoms/episode began/occurred 2 day(s) ago. The symptoms do not radiate. pm1 11:26 Associated signs and symptoms: Pertinent positives: diarrhea, nausea, Pertinent pm1 negatives: chest pain, constipation, fever, shortness of breath. The symptoms are described as achy. Modifying factors: The symptoms are alleviated by nothing, the symptoms are aggravated by change in diet recently due to the freeze. Was eating what was available . Severity of pain: in the emergency department the pain is actually worse. The patient has experienced a previous episode, many years ago. The patient has not recently seen a physician. 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 ph Historical: - Allergies: 11:00 No Known Allergies; sv - Home Meds: 10:59 aspirin 81 mg Oral chew once daily [Active]; Bentyl 10 mg Oral cap 1 cap 4 times per sv day [Active]; metoprolol tartrate 50 mg Oral tab 2 times per day [Active]; pantoprazole 40 mg Oral TbEC 1 tab once daily [Active]; Multi 1 tab daily [Active]; Vitamin D Oral weekly [Active]; methocarbamol 500 mg Oral tab Q8H prn [Active]; - PMHx: 10:59 Atrial Fib; bowel obstruction; Crohn's; Hypertension; sv - PSHx: 10:59 Cholecystectomy; ; Appendectomy; Bowel resection; Hysterectomy; sv - Immunization history:: Adult Immunizations up to date, Flu vaccine is up to date. - Social history:: Smoking status: Patient denies any tobacco usage or history of. ROS: 11:26 Constitutional: Negative for fever, chills, and weight loss, Cardiovascular: Negative pm1 for chest pain, palpitations, and edema, Respiratory: Negative for shortness of breath, cough, wheezing, and pleuritic chest pain. 11:26 Back: Negative for injury and pain, MS/Extremity: Negative for injury and deformity, Skin: Negative for injury, rash, and discoloration, Neuro: Negative for headache, weakness, numbness, tingling, and seizure. 11:26 Abdomen/GI: Positive for abdominal pain, nausea, diarrhea, Negative for vomiting, constipation. Exam: 11:26 Constitutional: This is a well developed, well nourished patient who is awake, alert, pm1 and in no acute distress. 11:26 Back: No spinal tenderness. No costovertebral tenderness. Full range of motion. Skin: Warm, dry with normal turgor. Normal color with no rashes, no lesions, and no evidence of cellulitis. MS/ Extremity: Pulses equal, no cyanosis. Neurovascular intact. Full, normal range of motion. 11:26 Cardiovascular: Exam negative for acute changes, Rate: normal, Rhythm: regular, Pulses: no pulse deficits are appreciated. 11:26 Respiratory: Exam negative for acute changes, respiratory distress, shortness of breath. 11:26 Abdomen/GI: Inspection: abdomen appears normal, Palpation: soft, in all quadrants, mild abdominal tenderness, in the epigastric area. 11:26 Neuro: Exam negative for acute changes, Orientation: is normal, Mentation: is normal, Motor: is normal, moves all fours. Vital Signs: 10:55 BP 147 / 96; Pulse 73; Resp 16; Temp 97; Pulse Ox 100% ; Weight 127.01 kg; Height 5 ft. sv 3 in. (160.02 cm); Pain 7/10; 12:13 BP 125 / 84; Pulse 67; Resp 18; Pulse Ox 100% on R/A; ph 13:24 BP 129 / 82; Pulse 65; Resp 18; Pulse Ox 100% on R/A; ph 14:54 BP 126 / 66; Pulse 66; Resp 18; Pulse Ox 100% on R/A; ph 15:55 BP 117 / 77; Pulse 67; Resp 16; Temp 97.8; Pulse Ox 100% on R/A; Pain 2/10; ph 10:55 Body Mass Index 49.60 (127.01 kg, 160.02 cm) sv MDM: 10:58 Patient medically screened. pm1 14:26 Data reviewed: vital signs. Data interpreted: Pulse oximetry: on room air is 100 %. pm1 Interpretation: normal. 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 11/22 11:24 Order name: Basic Metabolic Panel; Complete Time: 12:22 pm1 11/22 11:24 Order name: CBC with Diff; Complete Time: 11:56 pm1 11/22 11:24 Order name: Hepatic Function; Complete Time: 12:22 pm1 11/22 11:24 Order name: Lipase; Complete Time: 12:22 pm1 11/22 11:40 Order name: CT Abd/Pelvis - IV Contrast Only; Complete Time: 13:10 pm1 11/22 11:24 Order name: IV Saline Lock; Complete Time: 11:43 pm1 11/22 11:24 Order name: Labs collected and sent; Complete Time: 11:43 pm1 Administered Medications: 12:05 Drug: NS 0.9% 1000 ml Route: IV; Rate: 1000 ml; Site: left antecubital; ph 14:30 Follow up: Response: No adverse reaction; IV Status: Completed infusion; IV Intake: ph 1000ml 12:05 Drug: Zofran (Ondansetron) 4 mg Route: IVP; Site: left antecubital; ph 12:30 Follow up: Response: No adverse reaction ph 12:07 Drug: morphine 4 mg Route: IVP; Site: left antecubital; ph 12:30 Follow up: Response: No adverse reaction; Pain is decreased ph 14:50 Drug: Bentyl 20 mg Route: PO; ph 15:25 Follow up: Response: No adverse reaction; Pain is decreased ph 14:50 Drug: morphine 4 mg Route: IVP; Site: left antecubital; ph 15:25 Follow up: Response: No adverse reaction; Pain is decreased; RASS: Alert and Calm (0) ph Disposition: 11/23 06:20 Co-signature as Attending Physician, Hardy Yee MD I agree with the assessment and sidney plan of care. Disposition: 11/22/20 14:26 Discharged to Home. Impression: Unspecified abdominal pain. - Condition is Stable. - Discharge Instructions: Abdominal Pain, Adult. - Prescriptions for Bentyl 20 mg Oral Tablet - take 1 tablet by ORAL route every 6 hours As needed; 20 tablet. Zofran ODT 4 mg Oral tablet,disintegrating - place 1 tablet by TRANSLINGUAL route every 8 hours As needed; 12 tablet. Tylenol- Codeine #3 300-30 mg Oral Tablet - take 2 tablets by ORAL route every 4-6 hours As needed; 20 tablet. - Medication Reconciliation Form, Thank You Letter, Antibiotic Education, Prescription Opioid Use form. - Follow up: Emergency Department; When: As needed; Reason: Worsening of condition. Follow up: Private Physician; When: 2 - 3 days; Reason: Recheck today's complaints, Continuance of care, Re-evaluation by your physician. - Problem is new. - Symptoms have improved. Signatures: Dispatcher [employer] EDCarla Ibrahim RN RN Hardy Meier MD MD cha Hall, Patricia, RN RN ph Oscar Drake, CYNDI VACUUM DRIER TENDER pm1 Corrections: (The following items were deleted from the chart) 11/22 11:53 11:24 Urine Test ordered. pm1 ph 15:56 14:26 11/22/2020 14:26 Discharged to Home. Impression: Unspecified abdominal pain. ph Condition is Stable. Forms are Medication Reconciliation Form, Thank You Letter, Antibiotic Education, Prescription Opioid Use. Follow up: Emergency Department; When: As needed; Reason: Worsening of condition. Follow up: Private Physician; When: 2 - 3 days; Reason: Recheck today's complaints, Continuance of care, Re-evaluation by your physician. Problem is new. Symptoms have improved. pm1
--- NOTE | 2020-11-22 14:27 | ER ---
Nurse's Notes [facility] Name: Dori Guardado Age: 45 yrs Sex: Female : 1975 Arrival Date: 11/22/2020 Time: 10:41 Bed 7 Private MD: Noemy Lopez Diagnosis: Unspecified abdominal pain Presentation: 11/22 10:55 Chief complaint: Patient states: diffuse upper abd pain since Monday. Diarrhea but pt sv normally has it because she has Chron's. Coronavirus screen: Client denies travel out of the [place] in the last 14 days. At this time, the client does not indicate any symptoms associated with coronavirus-19. Ebola Screen: No symptoms or risks identified at this time. Initial Sepsis Screen: Does the patient meet any 2 criteria? No. Patient's initial sepsis screen is negative. Does the patient have a suspected source of infection? No. Patient's initial sepsis screen is negative. Risk Assessment: Do you want to hurt yourself or someone else? Patient reports no desire to harm self or others. Onset of symptoms was November 20, 2020. 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 ph Historical: - Allergies: 11:00 No Known Allergies; sv - Home Meds: 10:59 aspirin 81 mg Oral chew once daily [Active]; Bentyl 10 mg Oral cap 1 cap 4 times per sv day [Active]; metoprolol tartrate 50 mg Oral tab 2 times per day [Active]; pantoprazole 40 mg Oral TbEC 1 tab once daily [Active]; Multi 1 tab daily [Active]; Vitamin D Oral weekly [Active]; methocarbamol 500 mg Oral tab Q8H prn [Active]; - PMHx: 10:59 Atrial Fib; bowel obstruction; Crohn's; Hypertension; sv - PSHx: 10:59 Cholecystectomy; ; Appendectomy; Bowel resection; Hysterectomy; sv - Immunization history:: Adult Immunizations up to date, Flu vaccine is up to date. - Social history:: Smoking status: Patient denies any tobacco usage or history of. Screenin:09 Abuse screen: Denies threats or abuse. Denies injuries from another. Nutritional ph screening: No deficits noted. Tuberculosis screening: No symptoms or risk factors identified. Fall Risk None identified. Assessment: 11:19 General: Appears in no apparent distress. comfortable, obese, well groomed, Behavior is ph calm, cooperative, appropriate for age, Denies fever. Pain: Complains of pain in epigastric area, right upper quadrant and left upper quadrant. Pain: Quality of pain is described as burning, crampy, Pain began 1 day ago. Neuro: Level of Consciousness is awake, alert, obeys commands, Oriented to person, place, time, situation. Cardiovascular: Capillary refill < 3 seconds in bilateral fingers Patient's skin is warm and dry. Respiratory: Airway is patent Respiratory effort is even, unlabored, Respiratory pattern is regular, symmetrical. GI: Abdomen is non-distended, Reports upper abdominal pain, diarrhea, epigastric pain, nausea, hx of chronic diarrhea. Derm: Skin is intact, is healthy with good turgor, Skin is pink, warm \T\ dry. Musculoskeletal: Circulation, motion, and sensation intact. Range of motion: intact in all extremities. 13:26 Reassessment: Patient appears in no apparent distress at this time. Patient and/or ph family updated on plan of care and expected duration. Pain level reassessed. Patient is alert, oriented x 3, equal unlabored respirations, skin warm/dry/pink. 14:54 Reassessment: Patient appears in no apparent distress at this time. Patient and/or ph family updated on plan of care and expected duration. Pain level reassessed. Patient is alert, oriented x 3, equal unlabored respirations, skin warm/dry/pink. Pt given IV narcotics, does not currently have a ride home, drove herself to ED, d/c pending. Vital Signs: 10:55 BP 147 / 96; Pulse 73; Resp 16; Temp 97; Pulse Ox 100% ; Weight 127.01 kg; Height 5 ft. sv 3 in. (160.02 cm); Pain 7/10; 12:13 BP 125 / 84; Pulse 67; Resp 18; Pulse Ox 100% on R/A; ph 13:24 BP 129 / 82; Pulse 65; Resp 18; Pulse Ox 100% on R/A; ph 14:54 BP 126 / 66; Pulse 66; Resp 18; Pulse Ox 100% on R/A; ph 15:55 BP 117 / 77; Pulse 67; Resp 16; Temp 97.8; Pulse Ox 100% on R/A; Pain 2/10; ph 10:55 Body Mass Index 49.60 (127.01 kg, 160.02 cm) sv ED Course: 10:41 Patient arrived in ED. mr 10:42 Noemy Lopez MD is Private Physician. mr 10:51 Arm band placed on Patient placed in an exam room, on a stretcher. ll1 10:55 Nathalie Singleton RN is Primary Nurse. ph 10:56 Triage completed. sv 10:57 Oscar Drake NP is PHCP. pm1 10:57 Hardy Yee MD is Attending Physician. pm1 11:09 Patient has correct armband on for positive identification. Bed in low position. Call ph light in reach. Side rails up X 1. Pulse ox on. NIBP on. Door closed. Noise minimized. Warm blanket given. 11:40 Inserted saline lock: 22 gauge in left antecubital area, using aseptic technique. Blood kj1 collected. 11:40 Initial lab(s) drawn, by me, sent to lab. kj1 12:34 CT Abd/Pelvis - IV Contrast Only In Process Unspecified. EDMS 15:55 No provider procedures requiring assistance completed. IV discontinued, intact, ph bleeding controlled, No redness/swelling at site. Pressure dressing applied. Administered Medications: 12:05 Drug: NS 0.9% 1000 ml Route: IV; Rate: 1000 ml; Site: left antecubital; ph 14:30 Follow up: Response: No adverse reaction; IV Status: Completed infusion; IV Intake: ph 1000ml 12:05 Drug: Zofran (Ondansetron) 4 mg Route: IVP; Site: left antecubital; ph 12:30 Follow up: Response: No adverse reaction ph 12:07 Drug: morphine 4 mg Route: IVP; Site: left antecubital; ph 12:30 Follow up: Response: No adverse reaction; Pain is decreased ph 14:50 Drug: Bentyl 20 mg Route: PO; ph 15:25 Follow up: Response: No adverse reaction; Pain is decreased ph 14:50 Drug: morphine 4 mg Route: IVP; Site: left antecubital; ph 15:25 Follow up: Response: No adverse reaction; Pain is decreased; RASS: Alert and Calm (0) ph Intake: 14:30 IV: 1000ml; Total: 1000ml. ph Outcome: 14:26 Discharge ordered by . pm1 15:55 Discharged to home ambulatory. ph 15:55 Condition: good 15:55 Discharge instructions given to patient, Instructed on discharge instructions, follow up and referral plans. medication usage, Demonstrated understanding of instructions, follow-up care, medications, Prescriptions given X 3. 15:56 Patient left the ED. ph Signatures: Dispatcher [employer] EDCarla Ibrahim RN RN Enrique, Maira Singleton, LEONA Zelaya RN, ph, Patrick, DOCTOR OF NAPRAPATHIC MEDICINE DOCTOR OF [employer]IC MEDICINE pm1 Cipriano, Teresa kj1 Desirae Mckee RN RN ll1 Corrections: (The following items were deleted from the chart) 11:44 11:43 Initial lab(s) drawn, by me, sent to lab. kj1 kj1
[2020-11-22] MEDS ORDERED: DICYCLOMINE HCL 10 MG CAP ONE (15:02)
== END 2020-11-22 15:56 | disposition home or self-care (01) ==
LOC: ER 10:38
DX: R10.9 Unspecified abdominal pain (principal); I10 Essential (primary) hypertension; I48.91 Unspecified atrial fibrillation; Z79.82 Long term (current) use of aspirin
CPT/HCPCS: 96361; 85025; 80048; 36415; 80076; 83690; 74177; 96375; 96374; 99284; Q9967; J7030; J2405

== ENCOUNTER 2020-12-15 19:30 | Emergency (ER) | payer OTHER ==
--- OUTSIDE RECORDS SUMMARY | 2020-12-15 19:34 | XMS REPORT | Continuity of Care Document ---
:1975 Author Organization [facility] t Address [address] [place] [address] Care Team Providers Name Role Phone Unavailable [...] Sodium 8-10 [facility]: Mem[facility] 00 [facility] ent [facility] Ergocalcife Ergocalcife 2018- 2020- No Na Lopez [address] [facility] rol rol 1-18 02-16 [facility] 00:00 Memoria 00 :00 [facility] ent [facility] Paxil Paxil Yes Na Lopez [address] [facility] 4-03 in the [facility] - 00:00: morning Memoria 00 [facility] ent [facility] Humira Humira Yes Na Lopez not [facility] defined [facility] ent [facility] Aspirin Aspirin Yes Na Lopez not [facility] defined [facility] ent [facility] BusPIRone BusPIRone Yes Na Lopez [address] HCl HCl [facility] Metoprolol Metoprolol Yes Na Lopez [address] [facility] Tartrate Tartrate with food [facility] ent [facility] Procedures This patient has no known procedures. Encounters Start End Encounter Admission Attending Care Care Encounter Source Date/Time Date/Time Type Type Clinicians Facility Department ID 2020-11-03 2020-11-03 Outpatient [facility] [id number] [facility] 2020-08-03 2020-08-03 Out[facility] [id number] [facility] 2020-05-04 2020-05-04 [facility] [id number] 10:10:00 10:10:[address] - [address] [facility] Medicine l Medicine Outpati ent Clinics 2020-05-01 2020-05-01 [facility] [id number] 09:40:00 09:40:[address] - [employer] [facility] Medicine l Medicine Outpati ent Clinics 2020-02-19 2020-02-19 [facility] [id number] 16:06:00 16:06:00 t [facility] [address] [employer] [address] [facility] Medicine Outpati ent Clinics 2019-12-12 2019-12-12 [facility] [id number] [address] 15:41:00 15:41:[address] s - [employer] [facility] Medicine Outpati ent Clinics 2019-09-16 2019-09-16 [facility] [id number] [address] 14:40:00 14:40:00 t [place] [employer] s - Drive [facility] Medicine l Medicine Outpati ent Clinics 2019-08-15 2019-08-15 [facility] [id number] 09:27:00 09:27:00 t [place] [employer] [address] - Drive [facility] Medicine Medicine Outpati ent Clinics 2019-08-12 2019-08-12 [facility] [id number] 09:00:00 09:00:00 t [place] [employer] - Drive [facility] Medicine Outpati ent Clinics 2019-07-31 2019-07-31 [facility] [id number] 11:46:00 11:46:00 t [place] [employer] [facility] Medicine Outpati ent Clinics 2019-07-29 2019-07-29 [facility] [id number] 09:40:00 09:40:00 t [employer] [facility] Medicine Outpati ent Clinics 2019-06-02 2019-06-02 [facility] [id number] 09:38:00 09:38:00 [facility] Clinic l Outpati ent Clinics 2019-05-31 2019-05-31 [facility] [id number] [address] 11:30:00 11:30:00 [facility] Clinic l Outpati ent Clinics 2018-01-19 2018-01-19 [facility] [id number] 08:11:00 08:11:00 t [employer] [facility] Outpati ent Clinics 2018-01-18 2018-01-18 [facility] [id number] 10:15:00 10:15:00 t [employer] [facility] Medicine Outpati ent Clinics 2017-12-26 2017-12-26 [facility] [id number] 09:30:00 09:30:00 t [employer] [facility] Medicine Outpati ent Clinics Results This patient has no known results.
[2020-12-15 23:08] LABS: Lymphocytes % 38.4 % (15.3-44.8); MPV 8.8 fL (7.6-11.3); RBC Red Blood Cell Count 4.81 M/uL (3.86-4.86)
[2020-12-15] MEDS ORDERED: MORPHINE 4 MG/ML SYR ONE (23:14)
[2020-12-15] MEDS ORDERED: NA CHLORIDE 0.9% 1,000 ML ONE (23:14)
[2020-12-15] MEDS ORDERED: ONDANSETRON 4 MG/2 ML VIAL ONE (23:14)
[2020-12-15 23:40] LABS: ALT/SGPT 25 U/L (12-78); Albumin 3.6 g/dL (3.4-5.0); Alkaline Phosphatase 69 U/L (45-117); BUN Blood Urea Nitrogen 7 mg/dL (7-18); Bicarbonate 23 mmol/L (21-32); Bilirubin Direct < 0.1 mg/dL (0-0.2); Bilirubin Total 0.6 mg/dL (0.2-1.0); Glucose Level 99 mg/dL (74-106); Lipase 39 U/L (73-393); Sodium Level 138 mmol/L (136-145)
[2020-12-15 23:41] LABS: AST/SGOT 20 U/L (15-37); Potassium 4.2 mmol/L (3.5-5.1)
--- NOTE | 2020-12-16 00:53 | EDPHYS ---
Physician Documentation [facility] Name: Dori Guardado Age: 45 yrs Sex: Female : 1975 Arrival Date: 12/15/2020 Time: 19:34 Bed 8 Private MD: ED Physician Hardy Yee HPI: 12/15 22:16 This 45 yrs old Black Female presents to ER via Ambulatory with complaints of Abdominal pm1 Pain, Nausea. 22:16 The patient presents with abdominal pain. Onset: The symptoms/episode began/occurred 3 pm1 day(s) ago. The symptoms do not radiate. Associated signs and symptoms: Pertinent positives: nausea, Pertinent negatives: chest pain, diarrhea, dysuria, fever, shortness of breath. The symptoms are described as achy, crampy. Modifying factors: The symptoms are alleviated by nothing, the symptoms are aggravated by possibly from her mother's fried chicken prior to onset of symptoms. Severity of pain: in the emergency department the pain is actually worse. The patient has experienced similar episodes in the past, multiple times. The patient has not recently seen a physician, last seen in the ER for the same symptoms 1 month ago. 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 - Social history:: Smoking status: Patient denies any tobacco usage or history of. ROS: 22:16 Constitutional: Negative for fever, chills, and weight loss, Cardiovascular: Negative pm1 for chest pain, palpitations, and edema, Respiratory: Negative for shortness of breath, cough, wheezing, and pleuritic chest pain. 22:16 Back: Negative for injury and pain, MS/Extremity: Negative for injury and deformity, Skin: Negative for injury, rash, and discoloration, Neuro: Negative for headache, weakness, numbness, tingling, and seizure. 22:16 Abdomen/GI: Positive for abdominal pain, nausea, Negative for vomiting, diarrhea, constipation. Exam: 22:16 Constitutional: This is a well developed, well nourished patient who is awake, alert, pm1 and in no acute distress. Head/Face: Normocephalic, atraumatic. 22:16 Back: No spinal tenderness. No costovertebral tenderness. Full range of motion. Skin: Warm, dry with normal turgor. Normal color with no rashes, no lesions, and no evidence of cellulitis. MS/ Extremity: Pulses equal, no cyanosis. Neurovascular intact. Full, normal range of motion. 22:16 Cardiovascular: Exam negative for acute changes, Rate: normal, Rhythm: regular, Pulses: no pulse deficits are appreciated. 22:16 Respiratory: Exam negative for acute changes, respiratory distress, shortness of breath. 22:16 Abdomen/GI: Inspection: obese Palpation: abdomen is soft and non-tender, in all quadrants. 22:16 Neuro: Exam negative for acute changes, Orientation: is normal, Mentation: is normal, Motor: is normal, moves all fours. Vital Signs: 19:41 BP 132 / 94; Pulse 73; Resp 17; Temp 98.2; Pulse Ox 100% ; Weight 121.56 kg; Height 5 ll1 ft. 3 in. (160.02 cm); Pain 9/10; 23:00 BP 136 / 86; Pulse 68; Resp 18; Pulse Ox 100% on R/A; wh 12/16 00:30 BP 128 / 88; Pulse 72; Resp 18; Pulse Ox 98% on R/A; wh 12/15 19:41 Body Mass Index 47.47 (121.56 kg, 160.02 cm) ll1 MDM: 12/15 21:15 Patient medically screened. pm1 12/16 00:51 Data reviewed: vital signs. Data interpreted: Pulse oximetry: on room air is 100 %. pm1 Interpretation: normal. Counseling: I had a detailed discussion with the patient and/or guardian regarding: the historical points, exam findings, and any diagnostic results supporting the discharge/admit diagnosis, lab results, radiology results, the need for outpatient follow up, to return to the emergency department if symptoms worsen or persist or if there are any questions or concerns that arise at home. 12/15 21:38 Order name: Basic Metabolic Panel; Complete Time: 00:14 pm1 12/15 21:38 Order name: CBC with Diff; Complete Time: 23:15 pm1 12/15 21:38 Order name: Hepatic Function; Complete Time: 00:14 pm1 12/15 21:38 Order name: Lipase; Complete Time: 00:14 pm1 12/15 22:15 Order name: CT Abd/Pelvis - IV Contrast Only pm1 12/15 21:38 Order name: IV Saline Lock; Complete Time: 22:54 pm1 12/15 21:38 Order name: Labs collected and sent; Complete Time: 22:54 pm1 Administered Medications: 12/15 23:02 Drug: NS 0.9% 1000 ml Route: IV; Rate: 1000 ml; Site: left upper arm; 12/16 01:08 Follow up: Response: No adverse reaction; IV Status: Completed infusion; IV Intake: mg2 1000ml 12/15 23:04 Drug: morphine 4 mg Route: IVP; Site: left upper arm; 12/16 01:08 Follow up: Response: No adverse reaction [facility] 12/15 23:06 Drug: Zofran (Ondansetron) 4 mg Route: IVP; Site: left upper arm; 12/16 01:08 Follow up: Response: No adverse reaction [facility] 01:07 Drug: Bentyl 20 mg Route: PO; 01:08 Follow up: Response: No adverse reaction; Medication administered at discharge. mg2 Disposition: 06:58 Co-signature as Attending Physician, Hardy Yee MD I agree with the assessment and sidney plan of care. Disposition: 12/16/20 00:52 Discharged to Home. Impression: Unspecified abdominal pain. - Condition is Stable. - Discharge Instructions: Abdominal Pain, Adult. - Prescriptions for Zofran ODT 4 mg Oral tablet,disintegrating - place 1 tablet by TRANSLINGUAL route every 8 hours As needed; 20 tablet. Bentyl 20 mg Oral Tablet - take 1 tablet by ORAL route every 6 hours As needed; 20 tablet. - Medication Reconciliation Form, Thank You Letter, Antibiotic Education, Prescription Opioid Use form. - Follow up: Emergency Department; When: As needed; Reason: Worsening of condition. Follow up: Private Physician; When: 2 - 3 days; Reason: Recheck today's complaints, Continuance of care, Re-evaluation by your physician. - Problem is new. - Symptoms have improved. Signatures: Dispatcher [employer] Hardy Alfaro MD MD cha Marinas, Patrick, COTTON PICKER OPERATOR COTTON PICKER OPERATOR pm1 Geovani Nunez, RN RN wh Sergio Coelho, LEONA RN mg2 Desirae Mckee RN RN ll1 Corrections: (The following items were deleted from the chart) 01:09 00:52 12/16/2020 00:52 Discharged to Home. Impression: Unspecified abdominal pain. mg2 Condition is Stable. Forms are Medication Reconciliation Form, Thank You Letter, Antibiotic Education, Prescription Opioid Use. Follow up: Emergency Department; When: As needed; Reason: Worsening of condition. Follow up: Private Physician; When: 2 - 3 days; Reason: Recheck today's complaints, Continuance of care, Re-evaluation by your physician. Problem is new. Symptoms have improved. pm1
--- NOTE | 2020-12-16 00:53 | ER ---
Nurse's Notes [facility] Name: Dori Guardado Age: 45 yrs Sex: Female : 1975 Arrival Date: 12/15/2020 Time: 19:34 Bed 8 Private MD: Diagnosis: Unspecified abdominal pain Presentation: 12/15 19:41 Chief complaint: Patient states: Upper abd pain with nausea for 3 days. No fever. No ll1 appetite. Coronavirus screen: Client denies travel out of the [place] in the last 14 days. At this time, the client does not indicate any symptoms associated with coronavirus-19. Ebola Screen: Patient denies travel to an Ebola-affected area in the 21 days before illness onset. Initial Sepsis Screen: Does the patient meet any 2 criteria? No. Patient's initial sepsis screen is negative. Does the patient have a suspected source of infection? Yes: Acute abdominal pain. Risk Assessment: Do you want to hurt yourself or someone else? Patient reports no desire to harm self or others. Onset of symptoms was December 13, 2020. 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 - Social history:: Smoking status: Patient denies any tobacco usage or history of. Screenin:00 Abuse screen: Denies threats or abuse. Denies injuries from another. Nutritional wh screening: No deficits noted. Tuberculosis screening: No symptoms or risk factors identified. Fall Risk None identified. Assessment: 21:30 General: Appears in no apparent distress. Behavior is calm, cooperative, appropriate wh for age. Pain: Complains of pain in abdomen Pain does not radiate. Pain currently is 7 out of 10 on a pain scale. Pain: Pain began 2-3 days ago. Neuro: Level of Consciousness is awake, alert, obeys commands, Oriented to person, place, time, situation, Appropriate for age. Cardiovascular: Cardiovascular: Heart tones S1 S2. Respiratory: Airway is patent Respiratory effort is even, unlabored, Respiratory pattern is regular, symmetrical, Breath sounds are clear bilaterally. GI: Abdomen is round non-distended, Bowel sounds present X 4 quads. Abd is soft and non tender Reports upper abdominal pain, nausea. : No signs and/or symptoms were reported regarding the genitourinary system. EENT: No signs and/or symptoms were reported regarding the EENT system. Derm: Skin is intact, is healthy with good turgor, Skin is pink, warm \T\ dry. normal. Musculoskeletal: Circulation, motion, and sensation intact. 23:00 Reassessment: Patient appears in no apparent distress at this time. No changes from previously documented assessment. Patient and/or family updated on plan of care and expected duration. Pain level reassessed. Patient is alert, oriented x 3, equal unlabored respirations, skin warm/dry/pink. 12/16 00:30 Reassessment: Patient appears in no apparent distress at this time. Patient and/or family updated on plan of care and expected duration. Pain level reassessed. Patient is alert, oriented x 3, equal unlabored respirations, skin warm/dry/pink. Vital Signs: 12/15 19:41 BP 132 / 94; Pulse 73; Resp 17; Temp 98.2; Pulse Ox 100% ; Weight 121.56 kg; Height 5 ll1 ft. 3 in. (160.02 cm); Pain 9/10; 23:00 BP 136 / 86; Pulse 68; Resp 18; Pulse Ox 100% on R/A; wh 12/16 00:30 BP 128 / 88; Pulse 72; Resp 18; Pulse Ox 98% on R/A; wh 12/15 19:41 Body Mass Index 47.47 (121.56 kg, 160.02 cm) ll1 ED Course: 12/15 19:34 Patient arrived in ED. cf2 19:42 Triage completed. ll1 21:15 Oscar Drake NP is PHCP. pm1 21:15 Hardy Yee MD is Attending Physician. pm1 22:00 Patient has correct armband on for positive identification. Placed in gown. Bed in low wh position. Call light in reach. Side rails up X 1. Pulse ox on. NIBP on. 22:00 Arm band placed on right wrist. 22:31 Sergio Coelho, RN is Primary Nurse. mg2 23:02 Inserted saline lock: 22 gauge in right upper arm, using aseptic technique. Blood mg2 collected. 12/16 00:10 CT Abd/Pelvis - IV Contrast Only In Process Unspecified. EDMS 01:08 No provider procedures requiring assistance completed. mg2 01:09 IV discontinued, intact, bleeding controlled, No redness/swelling at site. Pressure mg2 dressing applied. Administered Medications: 12/15 23:02 Drug: NS 0.9% 1000 ml Route: IV; Rate: 1000 ml; Site: left upper arm; 12/16 01:08 Follow up: Response: No adverse reaction; IV Status: Completed infusion; IV Intake: mg2 1000ml 12/15 23:04 Drug: morphine 4 mg Route: IVP; Site: left upper arm; 12/16 01:08 Follow up: Response: No adverse reaction mg2 12/15 23:06 Drug: Zofran (Ondansetron) 4 mg Route: IVP; Site: left upper arm; 12/16 01:08 Follow up: Response: No adverse reaction mg2 01:07 Drug: Bentyl 20 mg Route: PO; 01:08 Follow up: Response: No adverse reaction; Medication administered at discharge. mg2 Intake: 01:08 IV: 1000ml; Total: 1000ml. mg2 Outcome: 00:52 Discharge ordered by . pm1 01:09 Discharged to home ambulatory. mg2 01:09 Condition: stable 01:09 Discharge instructions given to patient, Instructed on discharge instructions, follow up and referral plans. medication usage, Demonstrated understanding of instructions, follow-up care, medications, Prescriptions given X 2. 01:09 Patient left the ED. mg2 Signatures: Dispatcher [employer] EDMS Oscar Drake NP AUTOMATIC THREAD WINDER pm1 Geovani Nunez RN RN Sergio Coelho, LEONA RN [facility] Moshe Hines cf2 Desirae Mckee RN RN ll1
[2020-12-16] MEDS ORDERED: DICYCLOMINE HCL 10 MG CAP ONE (01:20)
[2020-12-16 02:14] VITALS: TEMP 98.2
[2020-12-16 02:17] VITALS: BP 128/88; O2SAT 98
--- NOTE | 2020-12-16 10:45 | RAD REPORT ---
EXAM DESCRIPTION: CT - Abdomen Pelvis W Contrast - 12/16/2020 7:13 am CLINICAL HISTORY: ABD PAIN. COMPARISON: CT of the abdomen and pelvis from November 22, 2020. TECHNIQUE: CT of the abdomen and pelvis was performed following intravenous administration of iodina mary contrast. Arterial phase images of the abdomen and portal venous phase images through the abdomen and pelvis were obtained. Oral contrast was not administered. Axial, coronal, and sagittal soft tiss ue window reconstructions were created and sent to PACS. This exam was performed according to our departmental dose-optimization program, which includes autom ated exposure control, adjustment of the mA and/or kV according to patient size and/or use of iterati ve reconstruction technique. FINDINGS: Thoracic: No significant abnormality. Hepatobiliary: No concerning hepatic lesion identified. The hepatic and portal veins are patent. The gallbladder is surgically absent. No biliary ductal dilatation. Pancreas: Unremarkable. Spleen: Unremarkable. Gastrointestinal: No evidence of bowel obstruction or perienteric inflammation. Prior right hemicolec awilda. Adrenals: No abnormality identified in either adrenal gland. Renal: No concerning parenchymal abnormality in either kidney. No hydronephrosis or urolithiasis. Bladder/Reproductive: Unremarkable appearance of the urinary bladder by CT technique. Unremarkable CT appearance of the uterus and ovaries. Vascular/Lymphatics: No lymphadenopathy identified by CT size criteria. Abdominal aorta is normal in caliber. The major visceral vessels are patent. Musculoskeletal: No concerning osseous lesion identified. Fluid / peritoneum: No significant free fluid. No free intraperitoneal air identified. IMPRESSION No acute abnormality identified in the abdomen and pelvis. Electronically signed by: Xenia Kolb MD 12/16/2020 12:21 AM CDT Due to temporary technical issues with the PACS/Fluency reporting system, reports are being signed by the in house radiologist without review as a courtesy to ensure prompt reporting. The interpreting r adiologist is fully responsible for the content of the report.
== END 2020-12-16 01:09 | disposition home or self-care (01) ==
LOC: ER 19:30
DX: R10.10 Upper abdominal pain, unspecified (principal); I10 Essential (primary) hypertension
CPT/HCPCS: 85025; 80048; 36415; 80076; 83690; 74177; Q9967; J7030; J2405; 96361; 96374; 96375; 99284

== ENCOUNTER 2021-01-07 23:14 | Emergency (ER) | payer OTHER ==
--- OUTSIDE RECORDS SUMMARY | 2021-01-07 23:16 | XMS REPORT | Continuity of Care Document ---
:1975 Author Organization [facility] t Address [address] [place] [address] Care Team Providers Name Role Phone Unavailable [...] Sodium 8-10 [facility]: Mem[facility] 00 [facility] ent [facility] Ergocalcife Ergocalcife 2018- 2020- No Na Lopez [address] [facility] rol rol 1-18 02-16 [facility]: 00:00 Memoria 00 :00 [facility] ent [facility] Paxil Paxil Yes Na Lopez [address] [facility] 4-03 in the [facility] 00:00: morning Memoria 00 [facility] ent [facility] Humira Humira Yes Na Lopez not [facility] defined [facility] ent [facility] Aspirin Aspirin Yes Na Lopez not [facility] defined [facility] ent [facility] BusPIRone BusPIRone Yes Na Lopez [address] HCl HCl [facility] Metoprolol Metoprolol Yes Na Lopez [address] [facility] [address] Tartrate Tartrate with food [facility] ent [facility] Procedures This patient has no known procedures. Encounters Start End Encounter Admission Attending Care Care Encounter Source Date/Time Date/Time Type Type Clinicians Facility Department ID 2021-01-04 2021-01-04 [facility] [id number] 2020-11-03 2020-11-03 [facility] [id number] [facility] 2020-08-03 2020-08-03 [facility] [id number] [facility] 2020-05-04 2020-05-04 [facility] [id number] 10[facility]10:00 10:10:00 t Parents R People [facility] Medicine l Medicine Outpati ent Clinics 2020-05-01 2020-05-01 [facility] [id number] [facility] 09:40:00 09:40:00 t Parents R People [facility] Medicine Medicine Outpati ent Clinics 2020-02-19 2020-02-19 [facility] [id number] 16:06:00 16:06:00 t [facility] l Medicine Outpati ent Clinics 2019-12-12 2019-12-12 [facility] [id number] [facility] 15:41:00 15:41:00 t [employer] [facility] Medicine Medicine Outpati ent Clinics 2019-09-16 2019-09-16 [facility] [id number] 14:40:00 14:40:00 t [email or web address] [facility] Medicine Outpati ent Clinics 2019-08-15 2019-08-15 [facility] [id number] 09:27:00 09:27:00 t Parents R People [facility] l Medicine Outpati ent Clinics 2019-08-12 2019-08-12 [facility] [id number] 09:00:00 09:00:00 t Parents R People [facility] l Medicine Outpati ent Clinics 2019-07-31 2019-07-31 [facility] [id number] 11:46:00 11:46:00 t Parents R People [facility] Outpati ent Clinics 2019-07-29 2019-07-29 [facility] [id number] 09:40:00 09:40:00 t Parents R People [facility] Outpati ent Clinics 2019-06-02 2019-06-02 [facility] [id number] 09:38:00 09:38:00 t [facility] l Outpati ent Clinics 2019-05-31 2019-05-31 [facility] [id number] 11:30:00 11:30:00 t [facility] l Outpati ent Clinics 2018-01-19 2018-01-19 [facility] [id number] [facility] 08:11:00 08:11:00 t Parents R People [facility] Outpati ent Clinics 2018-01-18 2018-01-18 [facility] [id number] [facility] 10:15:00 10:15:00 t Parents R People [facility] Outpati ent Clinics 2017-12-26 2017-12-26 [facility] [id number] 09:30:00 09:30:00 t Parents R People [facility] Outpati ent Clinics Results This patient has no known results.
[2021-01-08] MEDS ORDERED: HYDROCODONE/APAP 5/325 MG TAB ONE (00:05)
[2021-01-08] MEDS ORDERED: dexAMETHasone 10 MG/ML VIAL ONE (00:05)
--- NOTE | 2021-01-08 00:50 | EDPHYS ---
Physician Documentation [facility] Name: Dori Guardado Age: 45 yrs Sex: Female : 1975 Arrival Date: 01/07/2021 Time: 23:15 Bed 8 Private MD: ED Physician Branden Negron HPI: 01/07 23:42 This 45 yrs old Black Female presents to ER via Ambulatory with complaints of Knee rn Injury, Knee Swelling. 23:42 This 45 yrs old Black Female presents to ER via Ambulatory with complaints of Knee pain.rn 23:42 The patient presents with pain. The complaints affect the right knee. Onset: The rn symptoms/episode began/occurred today. Modifying factors: The symptoms are alleviated by elevating leg, remaining still, the symptoms are aggravated by movement, weight bearing. Associated signs and symptoms: Pertinent negatives calf tenderness, fever, tingling, warmth, weakness. Severity of symptoms: At their worst the symptoms were moderate, in the emergency department the symptoms have improved. The patient has not experienced similar symptoms in the past. Reports noticed aching of right knee earlier while walking at [place] and after eating at [employer]. No injury. No pop or tearing sensation. No fever. Does not feel ill. Reports has had similar pains in feet and right great toe before and mother with Gout, but never diagnosed in patient. Ambulatory on leg. . 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 - Social history:: Smoking status: unknown. - Family history:: not pertinent. - Hospitalizations: : No recent hospitalization is reported. ROS: 23:42 Constitutional: Negative for fever, chills, and weight loss, MS/Extremity: + right knee rn pain and mild swelling Skin: Negative for injury, rash, and discoloration, Neuro: Negative for weakness, numbness, tingling Exam: 23:42 Constitutional: This is a well developed, well nourished patient who is awake, alert, rn and in no acute distress. Ambulatory to room without difficulty or distress Skin: Warm, dry with normal turgor. Normal color with no rashes, no lesions, and no evidence of cellulitis. MS/ Extremity: Pulses equal, no cyanosis. Neurovascular intact. Full passive ROM, allows full flexion of right knee, + mild tenderness inferior patellar tendon without warmth of knee joint or wounds Neuro: Awake and alert, GCS 15, + antalgic gait but ambulatory Vital Signs: 23:34 BP 151 / 98; Pulse 81; Resp 18; Temp 97.1; Pulse Ox 100% on R/A; mg2 01/08 00:40 BP 113 / 75; Pulse 72; Resp 18; Pulse Ox 98% on R/A; mg2 MDM: 01/07 23:30 Patient medically screened. rn 01/08 00:48 Differential diagnosis: tendonitis, gout, effusion, pre-patellar bursitis. Data rn reviewed: vital signs, nurses notes, radiologic studies, plain films, and as a result, I will discharge patient. Counseling: I had a detailed discussion with the patient and/or guardian regarding: the historical points, exam findings, and any diagnostic results supporting the discharge/admit diagnosis, radiology results, the need for outpatient follow up, to return to the emergency department if symptoms worsen or persist or if there are any questions or concerns that arise at home. Response to treatment: the patient's symptoms have mildly improved after treatment, and as a result, I will discharge patient. Special discussion: I discussed with the patient/guardian in detail that at this point there is no indication for admission to the hospital. It is understood, however, that if the symptoms persist or worsen the patient needs to return immediately for re-evaluation. ED course: Xray without acute findings, FROM, no erythema, afebrile, will dc home with medrol dose pack and return precautions. . 01/07 23:41 Order name: XRAY Knee RIGHT 3 view rn Administered Medications: 01/07 23:50 Drug: [place] (HYDROcodone-acetaminophen) 5 mg-325 mg 1 tabs Route: PO; mg2 01/08 01:20 Follow up: Response: No adverse reaction mg2 01/07 23:51 Drug: Decadron (dexamethasone) 10 mg Route: IM; Site: right deltoid; mg2 01/08 00:20 Follow up: Response: No adverse reaction; Pain is decreased; RASS: Alert and Calm (0) jb4 00:20 Follow up: Response: No adverse reaction; Marked relief of symptoms jb4 Disposition: 01/08/21 00:50 Discharged to Home. Impression: Pain in right knee. - Condition is Stable. - Discharge Instructions: Knee Pain. - Prescriptions for Medrol ([place]) 4 mg Oral Tablets, Dose Pack - take 1 tablet by ORAL route as directed - follow package instructions; 1 packet. - Medication Reconciliation Form, Thank You Letter, Antibiotic Education, Prescription Opioid Use form. - Follow up: Private Physician; When: As needed; Reason: Recheck today's complaints, Re-evaluation by your physician. - Problem is new. - Symptoms have improved. Signatures: Dispatcher [employer] EDMS Branden Negron MD MD rn Bryson, James, RN RN jbSergio Shipley RN RN mg2 Corrections: (The following items were deleted from the chart) 01:03 00:50 01/08/2021 00:50 Discharged to Home. Impression: Pain in right knee. Condition is jb4 Stable. Forms are Medication Reconciliation Form, Thank You Letter, Antibiotic Education, Prescription Opioid Use. Follow up: Private Physician; When: As needed; Reason: Recheck today's complaints, Re-evaluation by your physician. Problem is new. Symptoms have improved. rn
--- NOTE | 2021-01-08 00:50 | ER ---
Nurse's Notes [facility] Name: Dori Guardado Age: 45 yrs Sex: Female : 1975 Arrival Date: 01/07/2021 Time: 23:15 Bed 8 Private MD: Diagnosis: Pain in right knee Presentation: 01/07 23:34 Chief complaint: Patient states: i started having right knee pain and swelling since 7 mg2 pm tonight. denies trauma. Coronavirus screen: Client denies travel out of the [place] in the last 14 days. At this time, the client does not indicate any symptoms associated with coronavirus-19. Ebola Screen: No symptoms or risks identified at this time. Initial Sepsis Screen: Does the patient meet any 2 criteria? No. Patient's initial sepsis screen is negative. Does the patient have a suspected source of infection? No. Patient's initial sepsis screen is negative. Risk Assessment: Do you want to hurt yourself or someone else? Patient reports no desire to harm self or others. Onset of symptoms was January 07, 2021 at 19:00. 23:34 Method Of Arrival: Ambulatory mg2 23:34 Acuity: KASH 4 mg2 Triage Assessment: 23:27 Injury Description: swelling. mg2 23:37 General: Appears in no apparent distress. comfortable, Behavior is calm, cooperative. mg2 Pain: Complains of pain in right knee. EENT: No signs and/or symptoms were reported regarding the EENT system. Neuro: Level of Consciousness is awake, alert, obeys commands, Oriented to person, place, time, situation. Cardiovascular: Capillary refill < 3 seconds Patient's skin is warm and dry. Respiratory: Airway is patent Respiratory effort is even, unlabored, Respiratory pattern is regular, symmetrical. GI: No deficits noted. : No signs and/or symptoms were reported regarding the genitourinary system. Derm: Skin is intact, is healthy with good turgor, Skin is pink, warm \T\ dry. normal. Musculoskeletal: Circulation, motion, and sensation intact. Capillary refill < 3 seconds, Swelling present in right knee. 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 - Social history:: Smoking status: unknown. - Family history:: not pertinent. - Hospitalizations: : No recent hospitalization is reported. Screenin:39 Abuse screen: Denies threats or abuse. Denies injuries from another. Nutritional mg2 screening: No deficits noted. Tuberculosis screening: No symptoms or risk factors identified. Fall Risk None identified. Assessment: 23:38 General: see triage note. mg2 01/08 01:02 Reassessment: Patient appears in no apparent distress at this time. Patient and/or jb4 family updated on plan of care and expected duration. Pain level reassessed. Patient is alert, oriented x 3, equal unlabored respirations, skin warm/dry/pink. Patient states feeling better. Vital Signs: 01/07 23:34 BP 151 / 98; Pulse 81; Resp 18; Temp 97.1; Pulse Ox 100% on R/A; mg2 01/08 00:40 BP 113 / 75; Pulse 72; Resp 18; Pulse Ox 98% on R/A; mg2 ED Course: 01/07 23:15 Patient arrived in ED. cl3 23:30 Branden Negron MD is Attending Physician. rn 23:34 Sergio Coelho RN is Primary Nurse. mg2 23:35 Triage completed. mg2 23:37 Arm band placed on. mg2 23:39 Patient has correct armband on for positive identification. mg2 23:39 No provider procedures requiring assistance completed. Patient did not have IV access mg2 during this emergency room visit. Administered Medications: 23:50 Drug: [place] (HYDROcodone-acetaminophen) 5 mg-325 mg 1 tabs Route: PO; mg2 01/08 01:20 Follow up: Response: No adverse reaction mg2 01/07 23:51 Drug: Decadron (dexamethasone) 10 mg Route: IM; Site: right deltoid; mg2 01/08 00:20 Follow up: Response: No adverse reaction; Pain is decreased; RASS: Alert and Calm (0) jb4 00:20 Follow up: Response: No adverse reaction; Marked relief of symptoms jb4 Outcome: 00:50 Discharge ordered by . rn 01:02 Discharged to home ambulatory. 4 01:02 Condition: stable 01:02 Discharge instructions given to patient, Instructed on discharge instructions, follow up and referral plans. medication usage, Demonstrated understanding of instructions, follow-up care, medications, Prescriptions given X 1. 01:03 Patient left the ED. jb4 Signatures: Branden Negron MD MD rn Bryson, James RN RN jb4 Sergio Coelho RN RN [facility] Tani Mckee cl3
[2021-01-08 01:25] VITALS: TEMP 97.1
[2021-01-08 01:27] VITALS: BP 113/75; O2SAT 98
--- NOTE | 2021-01-08 08:33 | RAD REPORT ---
EXAM DESCRIPTION: RAD - Knee Right 3 View - 01/08/2021 12:44 am CLINICAL HISTORY: PAIN COMPARISON: No comparisons FINDINGS: No acute fracture or dislocation is seen. No intraarticular joint effusion.
== END 2021-01-08 01:03 | disposition home or self-care (01) ==
LOC: ER 23:14
DX: M25.561 Pain in right knee (principal); I10 Essential (primary) hypertension; I48.91 Unspecified atrial fibrillation
CPT/HCPCS: 96372; 99283; J1100

== ENCOUNTER 2021-01-09 22:44 | Observation (INO) | payer OTHER ==
--- OUTSIDE RECORDS SUMMARY | 2021-01-09 22:47 | XMS REPORT | Continuity of Care Document ---
:1975 Author Organization [facility] t Address [address] [place] [address] Care Team Providers Name Role Phone Unavailable [...] Sodium 8-10 [facility] 00 [facility] Ergocalcife Ergocalcife 2018- 2020- No Na Lopez [address] [facility] rol rol 1-18 02-16 [facility]:00 [facility] 00 :00 [facility] Paxil Paxil Yes Na Lopez [address] [facility] 4-03 in the [facility] 00:[facility]: morning [facility] 00 [facility] Humira Humira Yes Na Lopez not [facility] defined [facility] Aspirin Aspirin Yes Na Lopez not [facility] defined [facility] BusPIRone BusPIRone Yes Na Lopez [address] [facility] HCl HCl [facility] Metoprolol Metoprolol Yes Na Lopez [address] [facility] Tartrate Tartrate with food [facility] [place] [facility] Procedures This patient has no known procedures. Encounters Start End Encounter Admission Attending Care Care Encounter Source Date/Time Date/Time Type Type Clinicians Facility Department ID 2021-01-04 2021-01-04 [id number] 2020-11-03 2020[facility]11-03 [facility] [id number] [facility] 2020-08-03 2020-08-03 [facility] [id number] [facility] 2020-05-04 2020-05-04 [facility] [id number] [facility] 10:10:00 10:10:00 [facility] l Medicine Outpati ent Clinics 2020-05-01 2020-05-01 [facility] [id number] [facility] 09:40:00 09:40:00 t [facility] Medicine Medicine Outpati ent Clinics 2020-02-19 2020-02-19 [facility] [id number] [facility] 16:06:00 16:06:00 t [facility] l Medicine Outpati ent Clinics 2019-12-12 2019-12-12 [facility] [id number] 15:41:00 15:41:00 t [facility] [facility] Medicine Medicine Outpati ent Clinics 2019-09-16 2019-09-16 [facility] [id number] [facility] 14:40:00 14:40:00 t [employer] [facility] Medicine Outpati ent Clinics 2019-08-15 2019-08-15 [facility] [id number] 09:27:00 09:27:00 t [facility] l Medicine Outpati ent Clinics 2019-08-12 2019-08-12 [facility] [id number] 09:00:00 09:00:00 t [facility] Outpat[facility] Clinics 2019-07-31 2019-07-31 [facility] [id number] 11:46:00 11:46:00 t [facility] Outpati ent Clinics 2019-07-29 2019-07-29 [facility] [id number] 09:40:00 09:40:00 t [facility] Outpati ent Clinics 2019-06-02 2019-06-02 [facility] [id number] 09:38:00 09:38:00 [facility] l Outpati ent Clinics 2019-05-31 2019-05-31 [facility] [id number] 11:30:00 11:30:00 [facility] l Outpati ent Clinics 2018-01-19 2018-01-19 [facility] [id number] 08:11:00 08:11:00 t [facility] Outpati ent Clinics 2018-01-18 2018-01-18 [facility] [id number] 10:15:00 10:15:00 t [facility] Outpati ent Clinics 2017-12-26 2017-12-26 [facility] [id number] [facility] 09:30:00 09:30:00 t [facility] Outpati ent Clinics Results This patient has no known results.
[2021-01-10 00:06] LABS: Absolute Lymphocytes (CBC) 2.6 K/uL (0.7-4.9); Basophils % 1.2 % (0-1.3); MPV 9.1 fL (7.6-11.3); RBC Red Blood Cell Count 4.59 M/uL (3.86-4.86)
[2021-01-10 00:07] LABS: Protime INR 1.06
[2021-01-10 00:23] LABS: ALT/SGPT 26 U/L (12-78); AST/SGOT 12 U/L (15-37); Albumin 3.5 g/dL (3.4-5.0); Alkaline Phosphatase 61 U/L (45-117); BUN Blood Urea Nitrogen 15 mg/dL (7-18); Bicarbonate 24 mmol/L (21-32); Bilirubin Direct 0.1 mg/dL (0-0.2); Bilirubin Total 0.3 mg/dL (0.2-1.0); Glucose Level 102 mg/dL (74-106); NT PRO-BNP 406 pg/mL (<125); Potassium 3.8 mmol/L (3.5-5.1); Protein, Total 8.4 g/dL (6.4-8.2); Sodium Level 142 mmol/L (136-145); Troponin (Emerg Dept Use Only) < 0.02 ng/mL (0.0-0.045)
--- NOTE | 2021-01-10 00:47 | ER ---
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 Coronavirus screen: Client denies travel out of the [place] in the last 14 days. Ebola Screen: Patient negative for fever greater than or equal to 101.5 degrees Fahrenheit, and additional compatible Ebola Virus Disease symptoms Patient denies exposure to infectious person. Patient denies travel to an Ebola-affected area in the 21 days before illness onset. No symptoms or risks identified at this time. Initial Sepsis Screen: Does the patient meet any 2 criteria? No. Patient's initial sepsis screen is negative. Does the patient have a suspected source of infection? No. Patient's initial sepsis screen is negative. Risk Assessment: Do you want to hurt yourself or someone else? Patient reports no desire to harm self or others. Onset of symptoms was January 09, 2021. 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 - Social history:: Smoking status: Patient denies any tobacco usage or history of. Screenin/18 00:18 Abuse screen: Denies threats or abuse. Nutritional screening: No deficits noted. ea Tuberculosis screening: No symptoms or risk factors identified. Fall Risk None identified. Assessment: 00:19 General: Appears in no apparent distress. Behavior is calm, cooperative, appropriate ea for age. Pain: Complains of pain in chest Pain does not radiate. Pain began 1 day ago. Neuro: Level of Consciousness is awake, alert, obeys commands, Oriented to person, place, time. Cardiovascular: Patient's skin is warm and dry. Respiratory: Airway is patent Respiratory effort is even, unlabored, Respiratory pattern is regular, symmetrical. Derm: Skin is pink, warm \T\ dry. 01:35 Reassessment: Patient and/or family updated on plan of care and expected duration. Pain ea level reassessed. Patient is alert, oriented x 3, equal unlabored respirations, skin warm/dry/pink. 02:30 Reassessment: Patient and/or family updated on plan of care and expected duration. Pain ea level reassessed. Patient is alert, oriented x 3, equal unlabored respirations, skin warm/dry/pink. 03:21 Reassessment: Patient and/or family updated on plan of care and expected duration. Pain ea level reassessed. Patient is alert, oriented x 3, equal unlabored respirations, skin warm/dry/pink. 07:00 Reassessment: RECD REPORT FROM XIOMY DELGADILLO. 45YO BF P/W CP AND BRADYCARDIA. PT ER HOLD FOR bp CHEST PAIN, SEE MEDITECH. 13:21 Reassessment: ADMIT COMPLETE, REPORT TO GIUSEPPE DELGADILLO FOR RM 205. bp Vital Signs: 01/09 22:56 BP 150 / 91; Pulse 59; Resp 18; Temp 98.2(O); Pulse Ox 99% on R/A; Weight 117.93 kg; em Height 5 ft. 3 in. (160.02 cm); Pain 4/10; 01/10 01:00 BP 152 / 92; Pulse 53; Resp 18; Pulse Ox 98% ; ea 02:00 BP 140 / 90; Pulse 61; Resp 18; Pulse Ox 98% ; ea 01/09 22:56 Body Mass Index 46.06 (117.93 kg, 160.02 cm) em ED Course: 01/08 23:50 Inserted saline lock: 24 gauge in right forearm, using aseptic technique. rr5 01/09 22:46 Patient arrived in ED. bp1 22:59 Triage completed. em 22:59 Arm band placed on. em 23:10 Oscar Drake NP is PHCP. pm1 23:10 Carlos Alberto Rios MD is Attending Physician. pm1 23:38 XRAY Chest (1 view) In Process Unspecified. EDMS 23:54 Inserted saline lock: 22 gauge in left hand, using aseptic technique. Blood collected. rr5 01/10 00:18 Xiomy Tang, RN is Primary Nurse. ea 00:18 Patient maintains SpO2 saturation greater than 95% on room air. ea 00:19 Patient has correct armband on for positive identification. Placed in gown. Bed in low ea position. monitoring manager on. Pulse ox on. NIBP on. 00:46 Prince Simpson MD is Hospitalizing Provider. pm1 03:19 No provider procedures requiring assistance completed. Patient admitted, IV remains in ea place. Administered Medications: 00:59 Drug: Aspirin Chewable Tablet 324 mg Route: PO; ea 01:23 Follow up: Response: No adverse reaction ea Outcome: 00:46 Decision to Hospitalize by Provider. pm1 03:19 Admitted to ER Hold. Please see [employer] [facility] for further documentation. ea 03:19 Condition: stable 03:19 Instructed on the need for admit, Demonstrated understanding of instructions. 13:29 Patient left the ED. bp Signatures: Dispatcher [employer] EDFidel Kerr, RN RN Oscar Hoang, WIRELESS INTERNET INSTALLER WIRELESS INTERNET INSTALLER pm1 Xiomy Tang, RN RN Srinivas Palacios, Tahir Fletcher RN, RN RN rr5 Miriam Colon bp1
--- NOTE | 2021-01-10 00:47 | EDPHYS ---
Physician Documentation [facility] Name: Dori Guardado Age: 45 yrs Sex: Female : 1975 Arrival Date: 01/09/2021 Time: 22:46 Bed 19 Private MD: ED Physician Carlos Alberto Rios HPI: 01/09 23:31 This 45 yrs old Black Female presents to ER via Ambulatory with complaints of High pm1 Blood Pressure, Chest Pain. 23:31 The patient has elevated blood pressure and discovered this at home, with a home pm1 device. Onset: The symptoms/episode began/occurred today, at 20:30, Duration 30 minutes. Associated signs and symptoms: Pertinent positives: chest pain, dizziness, Pertinent negatives: headache, nausea, vomiting. Severity of symptoms: At its worst the blood pressure was 157 mm Hg, in the emergency department the blood pressure is unchanged. The patient has experienced similar episodes in the past, a few times, Patient knows when her blood pressure is elevated. The patient has been recently seen by a physician: the patient's primary care provider, Dr. Lopez Recently started on metoprolol for HTN. 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 - Social history:: Smoking status: Patient denies any tobacco usage or history of. ROS: 23:42 Constitutional: Negative for fever, chills, and weight loss. pm1 23:42 Respiratory: Negative for shortness of breath, cough, wheezing, and pleuritic chest pm1 pain, Abdomen/GI: Negative for abdominal pain, nausea, vomiting, diarrhea, and constipation, Back: Negative for injury and pain, MS/Extremity: Negative for injury and deformity, Skin: Negative for injury, rash, and discoloration. 23:42 Cardiovascular: Positive for chest pain, Negative for edema, palpitations. 23:42 Neuro: Positive for dizziness, Negative for headache, numbness, tingling, weakness. Exam: 23:42 Constitutional: This is a well developed, well nourished patient who is awake, alert, pm1 and in no acute distress. Head/Face: Normocephalic, atraumatic. Chest/axilla: Normal chest wall appearance and motion. Nontender with no deformity. No lesions are appreciated. Respiratory: Lungs have equal breath sounds bilaterally, clear to auscultation and percussion. No rales, rhonchi or wheezes noted. No increased work of breathing, no retractions or nasal flaring. 23:42 Back: No spinal tenderness. No costovertebral tenderness. Full range of motion. Skin: Warm, dry with normal turgor. Normal color with no rashes, no lesions, and no evidence of cellulitis. MS/ Extremity: Pulses equal, no cyanosis. Neurovascular intact. Full, normal range of motion. 23:42 Cardiovascular: Rate: bradycardic, actual rate is 56 bpm, Rhythm: regular, Pulses: no pulse deficits are appreciated, Edema: is not appreciated. 23:42 Abdomen/GI: Inspection: obese Palpation: abdomen is soft and non-tender, in all quadrants. 23:42 Neuro: Exam negative for acute changes, Orientation: is normal, Mentation: is normal, Motor: is normal, moves all fours. Vital Signs: 22:56 BP 150 / 91; Pulse 59; Resp 18; Temp 98.2(O); Pulse Ox 99% on R/A; Weight 117.93 kg; em Height 5 ft. 3 in. (160.02 cm); Pain 4/10; 01/10 01:00 BP 152 / 92; Pulse 53; Resp 18; Pulse Ox 98% ; ea 02:00 BP 140 / 90; Pulse 61; Resp 18; Pulse Ox 98% ; ea 01/09 22:56 Body Mass Index 46.06 (117.93 kg, 160.02 cm) em MDM: 01/09 23:35 Patient medically screened. pm1 01/10 00:44 Data reviewed: vital signs. Data interpreted: Pulse oximetry: on room air is 99 %. pm1 Interpretation: normal. Counseling: I had a detailed discussion with the patient and/or guardian regarding: the historical points, exam findings, and any diagnostic results supporting the discharge/admit diagnosis, lab results, radiology results, the need for further work-up and treatment in the hospital. 00:44 Physician consultation: Santos FU-C was called at 00:44, was contacted at 00:44, pm1 and will see patient in ED. 01/09 23:13 Order name: Basic Metabolic Panel pm1 01/09 23:13 Order name: CBC with Diff; Complete Time: 00:27 pm1 01/09 23:13 Order name: LFT's pm1 01/09 23:13 Order name: Magnesium; Complete Time: 00:27 pm1 01/09 23:13 Order name: NT PRO-BNP; Complete Time: 00:27 pm1 01/09 23:13 Order name: PT-INR; Complete Time: 00:27 pm1 01/09 23:13 Order name: Troponin (emerg Dept Use Only); Complete Time: 00:27 pm1 01/09 23:14 Order name: Basic Metabolic Panel; Complete Time: 00:27 EDMS 01/09 23:14 Order name: Liver (Hepatic) Function; Complete Time: 00:27 EDMS 01/10 01:23 Order name: COVID-19 : Document "Date of Symptom Onset" if Symptomatic. 01/10 02:36 Order name: SARS-COV-2 RT PCR; Complete Time: 13:18 EDMS 01/10 07:14 Order name: Troponin I; Complete Time: 13:18 EDMS 01/10 07:14 Order name: Lipid Profile; Complete Time: 13:18 EDMS 01/10 07:14 Order name: T4 Free; Complete Time: 13:18 EDMS 01/09 23:13 Order name: XRAY Chest (1 view) pm01/09 23:13 Order name: EKG; Complete Time: 23:14 pm01/09 23:13 Order name: Cardiac monitoring; Complete Time: 00:21 pm01/09 23:13 Order name: EKG - Nurse/Tech; Complete Time: 00:21 pm01/09 23:13 Order name: IV Saline Lock; Complete Time: 23:53 pm01/09 23:13 Order name: Labs collected and sent; Complete Time: 23:53 pm01/09 23:13 Order name: O2 Per Protocol; Complete Time: 23:53 pm01/09 23:13 Order name: O2 Sat Monitoring; Complete Time: 23:53 pm01/10 07:14 Order name: Thyroid Stimulating Hormone; Complete Time: 13:18 EDMS Administered Medications: 00:59 Drug: Aspirin Chewable Tablet 324 mg Route: PO; ea 01:23 Follow up: Response: No adverse reaction ea Disposition: 19:15 Co-signature as Attending Physician, Carlos Alberto Rios MD. [email or web address] Disposition: 01/10/21 00:46 Hospitalization ordered by Prince Tatiana for Observation. Preliminary diagnosis is Chest pain, unspecified. - Bed requested for Telemetry/MedSurg (observation). - Status is Observation. bp - Condition is Stable. - Problem is new. - Symptoms have improved. Signatures: Dispatcher [employer] EDFidel Kerr RN Doris Fernandes RN RN cg Marinas, Patrick, CYNDI UTILIZATION MANAGEMENT MANAGER pm1 Xiomy Tang RN RN ea Peltier, Brian, RN RN Mable Bourgeois Maurice, MD MD [email or web address] Corrections: (The following items were deleted from the chart) 00:40 01/09 23:31 Onset: The symptoms/episode began/occurred today, at 20:30, pm1 pm1 01/10 00:40 01/09 23:31 The patient has not recently seen a physician, pm1 pm1 01/10 00:41 01/09 23:31 Associated signs and symptoms: Pertinent positives: chest pain, Pertinent pm1 negatives: headache, lightheadedness, nausea, vomiting, pm1 01/10 02:21 00:46 Hospitalization Ordered by Prince Tatiana GORDON for Observation. Preliminary cg diagnosis is Chest pain, unspecified. Bed requested for Telemetry/MedSurg (observation). Status is Observation. Condition is Stable. Problem is new. Symptoms have improved. pm1 12:53 02:21 01/10/2021 00:46 Hospitalization Ordered by Prince Tatiana GORDON for Observation. eb Preliminary diagnosis is Chest pain, unspecified. Bed requested for [facility] ER HOLD. Status is Observation. Condition is Stable. Problem is new. Symptoms have improved. cg 13:29 12:53 01/10/2021 00:46 Hospitalization Ordered by Prince Tatiana GORDON for Observation. bp Preliminary diagnosis is Chest pain, unspecified. Bed requested for Telemetry/MedSurg (observation). Status is Observation. Condition is Stable. Problem is new. Symptoms have improved. eb
[2021-01-10] MEDS ORDERED: ASPIRIN 81 MG CHEWABLE TABLET ONE (01:08)
--- NOTE | 2021-01-10 01:34 | P.HP ---
Certification for Inpatient Patient admitted to: Observation With expected LOS: <2 Midnights Patient will require the following post-hospital care: None Practitioner: I am a practitioner with admitting privileges, knowledge of patient current condition, hospital course, and medical plan of care. Services: Services provided to patient in accordance with Admission requirements found in Title 42 Section 412.3 of the Code of Federal Regulations Patient History Date of Service: 01/10/21 Reason for admission: Chest pain History of Present Illness: 45-year-old female with history of hypertension, paroxysmal atrial fibrillation, Crohn's presents emergency department for chest pain. Patient reports that she was in the process of cleaning when she had a pressure- like chest pain, nonradiating without any associated signs or symptoms that lasted for approximately 30 min. Patient's evaluation in the emergency department revealed mildly elevated BNP 406, chest x-ray suggesting mild cardiomegaly with mild bilateral perihilar opacities which likely represent mild edema. Troponin negative, EKG shows sinus bradycardia. Patient's mother with history of heart disease. Patient had stress test 02/14/2020 which was negative and EF of 66%. ED provider wishes to admit for chest pain rule out. Allergies No Known Allergies Allergy (Verified 10/25/18 22:51) Home Medications: Aspirin 81 mg PO DAILY 09/16/14 Famotidine [Pepcid] 1 tab PO DAILY 10/26/18 Omeprazole 1 cap PO DAILY 10/26/18 predniSONE [Deltasone] 20 mg PO BID #10 tablet 10/26/18 metroNIDAZOLE [Flagyl] 500 mg PO BID 02/14/20 Metoprolol Tartrate [Lopressor*] 25 mg PO BID #60 tab 02/15/20 clonazePAM [Klonopin] 0.5 mg PO TID PRN #60 tablet 02/15/20 - Past Medical/Surgical History Diabetic: No -: HTN -: Paroxysmal atrial fibrillation -: Chrons Disease -: partial hysterectomy -: Partial resection small intestine -: section -: Appendectomy -: Cholecystectomy Psychosocial/ Personal History: Patient lives with family - Family History Father -: Heart disease, Diabetes Mother -: Heart disease, Diabetes - Social History Smoking Status: Never smoker Alcohol use: No CD- Drugs: No Caffeine use: No Place of Residence: Home Review of Systems 10-point ROS is otherwise unremarkable Cardiovascular: Chest Pain Physical Examination - Physical Exam General: Alert, In no apparent distress, Oriented x3, Obese HEENT: Atraumatic, PERRLA, Mucous membr. moist/pink Neck: Supple, 2+ carotid pulse no bruit, No LAD Respiratory: Clear to auscultation bilaterally, Normal air movement Cardiovascular: Regular rate/rhythm, Normal S1 S2 Gastrointestinal: Normal bowel sounds, No tenderness Musculoskeletal: No tenderness Integumentary: No rashes Neurological: Normal speech, Normal strength at 5/5 x4 extr, Normal tone, Normal affect - Studies Laboratory Data (last 24 hrs) 01/09/21 23:49: PT 12.2, INR 1.06 01/09/21 23:49: WBC 11.70 H, Hgb 11.6 L, Hct 36.0, Plt Count 399 01/09/21 23:49: Sodium 142, Potassium 3.8, BUN 15, Creatinine 0.79, Glucose 102, Magnesium 2.0, Total Bilirubin 0.3, AST 12 L, ALT 26, Alkaline Phosphatase 61 Assessment and Plan - Plan assessment Chest pain rule out ACS Paroxysmal atrial fibrillation Hypertension Crohn's disease Plan Chest pain rule out ACS: Monitor on telemetry, trend troponins, continue aspirin, metoprolol. Cardiology consulted. DVT prophylaxis Lovenox 40 mg subcutaneous once daily. Patient with stress test 02/14/2020 which was negative and showed normal EF. Paroxysmal atrial fibrillation: Continue daily aspirin, metoprolol. Currently sinus bradycardia. Hypertension: Continue home meds Crohn's disease: Patient states disease is well controlled at this time with CBD. Discharge Plan: Home Plan to discharge in: 24 Hours - Advance Directives Does patient have a Living Will: No Does patient have a Durable POA for Healthcare: No - Code Status/Comfort Care Code Status Assessed: Yes (Full code) Critical Care: No Time Spent Managing Pts Care (In Minutes): 55
[2021-01-10 04:06] VITALS: BMI 46.0
[2021-01-10] MEDS ORDERED: ONDANSETRON 4 MG/2 ML VIAL IV PRN (04:10)
[2021-01-10 07:13] LABS: HDL Cholesterol 61 mg/dL (40-60); LDL Cholesterol, Calculated 101 (<130); Troponin I < 0.02 ng/mL (0.0-0.045)
[2021-01-10] MEDS: ENOXAPARIN 40 MG/0.4 ML SQ SCH (08:36)
[2021-01-10] MEDS: ASPIRIN EC 81 MG TAB PO SCH (08:36)
[2021-01-10] MEDS: METOPROLOL TAR 50 MG TAB PO SCH ×2 (08:36→21:16)
[2021-01-10] MEDS ORDERED: ASPIRIN EC 81 MG TAB PO ONE (08:38)
[2021-01-10] MEDS ORDERED: METOPROLOL TAR 50 MG TAB ONE (08:38)
[2021-01-10] MEDS ORDERED: ENOXAPARIN 40 MG/0.4 ML SQ ONE (08:39)
--- NOTE | 2021-01-10 17:59 | CON ---
Date of Consultation: 01/10/2021 Reason For Consultation: Chest pain. History Of Present Illness: A 45-year-old obese female with past medical history of hypertension, paroxysmal atrial fibrillation, Crohn disease, presented with chest pressure and short ness of breath while cleaning her house. Chest pressure lasted for about 30 minutes and resolved aft er full rest. Denies having any shortness of breath, but she has some mild lower extremity edema. N o nausea, vomiting. The patient had a stress test in January 2020, which was negative with normal ejecti on fraction. Past Medical History: As outlined above in HPI. Medications: Refer to reconciliation sheet for detailed list. Allergies: NO KNOWN DRUG ALLERGIES. Family History: No premature coronary artery disease or cancer. Social History: She does not smoke or drink. Does not use any drugs. Review of Systems: All systems reviewed and they were negative except for what is mentioned in the HPI. Physical Examination: Vital Signs: Reviewed. Head and Neck: Pupils are equal, reactive to light. Intact eye movements. No JVD. No cervical lym phadenopathy. Neck: Supple. Thyroid is not enlarged. Lungs: Clear to auscultation bilaterally. No rhonchi, rales, or crackles. No accessory muscle use. Heart: Regular rate and rhythm. No extra sounds. Abdomen: Soft, nontender. Bowel sounds positive. No organomegaly. No masses or hernia. No rigidi ty or rebound. Extremities: No clubbing or cyanosis. There is 1 to 2+ edema bilaterally. Neurologic: Alert, awake, oriented x3. No acute focal deficits appreciated. Lymph Nodes: No cervical or axillary lymphadenopathy. Investigations: Troponin is less than 0.02. Creatinine is 0.79. INR is 1.06. Hemoglobin is 11.6. Assessment And Plan: Chest pain, shortness of breath. This was exertional chest pain and could be c ardiac in origin. Do serial sets of cardiac enzymes and the patient will need further evaluation wit h exercise stress test. If the patient remains stable and chest pain free, this can be arranged as a n outpatient. Otherwise, if she continues to have chest pain, I will recommend to do it as an inpati ent tomorrow morning. Also, please check D-dimer. If it is elevated, I will recommend CTA PE protoc ol of the lungs. Thank you for the consult. /MODL Voice ID: [id number] Report ID: [id number]
[2021-01-11 06:16] VITALS: O2SAT 94
[2021-01-11 08:32] VITALS: BP 124/69; TEMP 97.6
[2021-01-11] MEDS: ASPIRIN EC 81 MG TAB PO SCH (08:44)
[2021-01-11] MEDS: METOPROLOL TAR 50 MG TAB PO SCH (08:44)
[2021-01-11] MEDS: ENOXAPARIN 40 MG/0.4 ML SQ SCH ×2 (08:44)
--- NOTE | 2021-01-11 12:05 | RAD REPORT ---
EXAM DESCRIPTION: Elder Single View01/09/2021 11:38 pm COMPARISON: Chest radiograph April 25, 2020 CLINICAL HISTORY: [facility] MAIN CHEST PAIN FINDINGS: A single AP view of the chest demonstrates a mildly enlarged cardiomediastinal silhouette. No pneumothorax or pleural effusion. Mild bilateral perihilar opacities are present. Osseous structures are intact. IMPRESSION: Mild cardiomegaly with mild bilateral perihilar opacities which could represent mild harjit ma or early infection. Electronically signed by: Jose Antonio Madera MD 01/09/2021 11:54 PM CDT Due to temporary technical issues with the PACS/Fluency reporting system, reports are being signed by the in house radiologist without review as a courtesy to ensure prompt reporting. The interpreting r adiologist is fully responsible for the content of the report.
--- NOTE | 2021-02-01 01:55 | P.DS ---
Discharge Date: 01/11/21 Disposition: ROUTINE DISCHARGE Discharge Condition: GOOD Reason for Admission: Chest pain Consultations: Cardiology Brief History of Present Illness: Patient is [id number] female with history of hypertension, paroxysmal atrial fibrillation, Crohn's presents emergency department for chest pain. Patient reports that she was in the process of cleaning when she had a pressure-like chest pain, nonradiating without any associated signs or symptoms that lasted for approximately 30 min. Patient's evaluation in the emergency department revealed mildly elevated BNP 406, chest x-ray suggesting mild cardiomegaly with mild bilateral perihilar opacities which likely represent mild edema. Troponin negative, EKG shows sinus bradycardia. Patient's mother with history of heart disease. Patient had stress test 02/14/2020 which was negative and EF of 66%. ED provider wishes to admit for chest pain rule out. Hospital Course: Patient was ruled out for acute coronary syndrome. Patient will need close outpatient follow-up with PCP and Cardiology. Patient will need further testing including cardiology consultation for possible stress testing. At this time, leann montague is stable for discharge but will need close outpatient follow-up that we mentioned above. Vital Signs/Physical Exam: Temp Pulse Resp BP Pulse Ox 97.6 F 54 20 124/69 100 01/11/21 08:00 01/11/21 08:00 01/11/21 08:00 01/11/21 08:00 01/11/21 08:00 General: Alert, In no apparent distress, Oriented x3 Laboratory Data at Discharge: WBC 11.70 K/uL (4.3-10.9) H 01/09/21 23:49 Hgb 11.6 g/dL (12.0-15.0) L 01/09/21 23:49 Hct 36.0 % (36.0-45.0) 01/09/21 23:49 Plt Count 399 K/uL (152-406) 01/09/21 23:49 PT 12.2 SECONDS (9.5-12.5) 01/09/21 23:49 INR 1.06 01/09/21 23:49 Sodium 142 mmol/L (136-145) 01/09/21 23:49 Potassium 3.8 mmol/L (3.5-5.1) 01/09/21 23:49 BUN 15 mg/dL (7-18) 01/09/21 23:49 Creatinine 0.79 mg/dL (0.55-1.3) 01/09/21 23:49 Glucose 102 mg/dL (74-106) 01/09/21 23:49 Magnesium 2.0 mg/dL (1.8-2.4) 01/09/21 23:49 Total Bilirubin 0.3 mg/dL (0.2-1.0) 01/09/21 23:49 AST 12 U/L (15-37) L 01/09/21 23:49 ALT 26 U/L (12-78) 01/09/21 23:49 Alkaline Phosphatase 61 U/L (45-117) 01/09/21 23:49 Troponin I < 0.02 ng/mL (0.0-0.045) 01/10/21 16:00 Triglycerides 76 mg/dL (<150) 01/10/21 06:04 Cholesterol 177 mg/dL (<200) 01/10/21 06:04 HDL Cholesterol 61 mg/dL (40-60) H 01/10/21 06:04 Cholesterol/HDL Ratio 2.90 01/10/21 06:04 Home Medications: Aspirin 81 mg PO DAILY 09/16/14 Buspirone HCl [Buspar] 10 mg PO DAILY 01/10/21 Dicyclomine [Bentyl*] 10 mg PO BID 01/10/21 Methylprednisolone [Medrol] 2 mg PO DAILY 01/10/21 Metoprolol Tartrate [Lopressor*] 50 mg PO BID 01/10/21 Multivitamin 1 each PO DAILY 01/10/21 Metoprolol Tartrate [Lopressor*] 50 mg PO BID #60 tab 01/11/21 New Medications: Metoprolol Tartrate [Lopressor*] 50 mg PO BID #60 tab Physician Discharge Instructions: OK TO DC IV AND DC HOME FOLLOW-UP WITH PRIMARY CARE PROVIDER IN 1-2 WEEKS FOLLOW-UP WITH CARDIOLOGY IN 1-2 WEEKS RETURN TO THE ER IF symptoms worsen CALL or TEXT DR. CORBETT AT [phone] IF ANY QUESTIONS REGARDING HOSPITAL STAY. PLEASE CALL THE FLOOR AT [phone] IF ANY MEDICATION OR NURSING QUESTIONS. Diet: AHA Activity: Fall precautions Followup: Matthew Lofton MD [ACTIVE - CAN ADMIT] - Avery Holt MD [ACTIVE - CAN ADMIT] - Unknown,U [Primary Care Provider] - Time spent managing pt's care (in minutes): 35
== END 2021-01-11 11:37 | disposition home or self-care (01) ==
LOC: ER 22:44 → ERHOLD 01-10 01:49 → 2ND 01-10 13:21
PROVIDERS: ADMIT Internal Medicine; ATTEND Hospitalist
DX: R07.9 Chest pain, unspecified (principal); R06.02 Shortness of breath; I10 Essential (primary) hypertension; I48.0 Paroxysmal atrial fibrillation; K50.90 Crohn's disease, unspecified, without complications; E66.9 Obesity, unspecified; Z68.42 Body mass index [BMI] 45.0-49.9, adult; Z20.822 Contact with and (suspected) exposure to COVID-19
CPT/HCPCS: 93005; 85025; 80048; 36415; 83735; 85610; 80061; 85379; 80076; 84443; 84484 ×3; 84439; 83880; 71045; 99285; U0003; J1650; G0378 ×3

== ENCOUNTER 2021-01-14 00:07 | Emergency (ER) | payer OTHER ==
--- OUTSIDE RECORDS SUMMARY | 2021-01-14 00:10 | XMS REPORT | Continuity of Care Document ---
:1975 Author Organization [facility] t Address [address] [place] [address] Care Team Providers Name Role Phone Unavailable [...] Sodium 8-10 [facility] 00 [facility] Ergocalcife Ergocalcife 2018- 2020- No Na Lopez [address] [facility] rol rol 1-18 02-16 [facility] :00 [facility] Paxil Paxil Yes Na Lopez [address] [facility] 4-03 in the [facility] 00:[facility]: morning [facility] 00 [facility] Humira Humira Yes Na Lopez not [facility] defined [facility] Aspirin Aspirin Yes Na Lopez not [facility] defined [facility] BusPIRone BusPIRone Yes Na Lopez [address] [facility] HCl HCl [facility] Metoprolol Metoprolol Yes Na Lopez [address] [facility] Tartrate Tartrate with food [facility] Procedures This patient has no known procedures. Encounters Start End Encounter Admission Attending Care Care Encounter Source Date/Time Date/Time Type Type Clinicians Facility Department ID 2021-01-04 2021-01-04 [facility] [id number] 2020-11-03 2020-11-03 [facility] [id number] 2020-08-03 2020-08-03 [id number] [facility] 2020-05-04 2020-05-04 [facility] [id number] [facility] 10[facility]10[facility]00 10:10:00 [facility] Medicine l Medicine Outpati ent Clinics 2020-05-01 2020-05-01 [facility] [id number] [facility] 09:40:00 09:40:00 t [facility] Medicine Medicine Outpati ent Clinics 2020-02-19 2020-02-19 [facility] [id number] [facility] 16:06:00 16:06:00 t [facility] l Medicine Outpati ent Clinics 2019-12-12 2019-12-12 [facility] [id number] [facility] 15:41:00 15:41:00 t [facility] [employer] [facility] Medicine Medicine Outpati ent Clinics 2019-09-16 2019-09-16 [facility] [id number] [facility] 14:40:00 14:40:00 t [employer] [facility] Medicine Outpati ent Clinics 2019-08-15 2019-08-15 [facility] [id number] [facility] 09:27:00 09:27:00 t [facility] l Medicine Outpati ent Clinics 2019-08-12 2019-08-12 [facility] [id number] 09:00:00 09:00:00 t [facility] l [facility] Outpati ent Clinics 2019-07-31 2019-07-31 [facility] [id number] [facility] 11:46:00 11:46:00 t [facility] Outpati ent Clinics 2019-07-29 2019-07-29 [facility] [id number] 09:40:00 09:40:00 t [facility] Outpati ent Clinics 2019-06-02 2019-06-02 [facility] [id number] 09[facility]38:00 09:38:00 [facility] l Outpati ent Clinics 2019-05-31 2019-05-31 [facility] [id number] 11:30:00 11:30:00 [facility] l Outpati ent Clinics 2018-01-19 2018-01-19 [facility] [id number] 08:11:00 08:11:00 t [facility] Outpati ent Clinics 2018-01-18 2018-01-18 [facility] [id number] [facility] 10:15:00 10:15:00 t [facility] Outpati ent Clinics 2017-12-26 2017-12-26 [facility] [id number] [facility] 09:30:00 09:30:00 t [facility] Outpati ent Clinics Results This patient has no known results.
[2021-01-14] MEDS ORDERED: ASPIRIN 81 MG CHEWABLE TABLET ONE (01:03)
[2021-01-14] MEDS ORDERED: NA CHLORIDE 0.9% 1,000 ML ONE (01:03)
[2021-01-14 01:34] LABS: Absolute Lymphocytes (CBC) 2.4 K/uL (0.7-4.9); Basophils % 1.2 % (0-1.3); Lymphocytes % 22.8 % (15.3-44.8); RBC Red Blood Cell Count 4.83 M/uL (3.86-4.86)
[2021-01-14 01:35] LABS: Protime INR 1.01
[2021-01-14 01:53] LABS: ALT/SGPT 20 U/L (12-78); AST/SGOT 10 U/L (15-37); Albumin 3.4 g/dL (3.4-5.0); Alkaline Phosphatase 67 U/L (45-117); BUN Blood Urea Nitrogen 16 mg/dL (7-18); Bicarbonate 25 mmol/L (21-32); Bilirubin Direct 0.1 mg/dL (0-0.2); Bilirubin Total 0.3 mg/dL (0.2-1.0); Glucose Level 107 mg/dL (74-106); NT PRO-BNP 83 pg/mL (<125); Potassium 4.5 mmol/L (3.5-5.1); Protein, Total 8.3 g/dL (6.4-8.2); Sodium Level 140 mmol/L (136-145); Thyroid Stimulating Hormone 0.918 uIU/mL (0.360-3.740); Troponin (Emerg Dept Use Only) < 0.02 ng/mL (0.0-0.045)
[2021-01-14] MEDS ORDERED: AMLODIPINE 5 MG TAB ONE (02:01)
--- NOTE | 2021-01-14 03:25 | ER ---
Nurse's Notes [facility] Name: Dori Guardado Age: 45 yrs Sex: Female : 1975 Arrival Date: 01/14/2021 Time: 00:10 Bed 28 Private MD: Diagnosis: Chest pain, unspecified;Palpitations;Essential (primary) hypertension;Obesity, unspecified;Cardiomegaly Presentation: 01/14 00:29 Chief complaint: Patient states: pt was just d/c a couple days ago for heart fluttering iw and dizziness, was supposed to f/u with [facility] but symptoms started again tonight while she was lying down watching TV. Coronavirus screen: At this time, the client does not indicate any symptoms associated with coronavirus-19. Ebola Screen: Patient negative for fever greater than or equal to 101.5 degrees Fahrenheit, and additional compatible Ebola Virus Disease symptoms Patient denies exposure to infectious person. Patient denies travel to an Ebola-affected area in the 21 days before illness onset. No symptoms or risks identified at this time. 00:29 Method Of Arrival: Ambulatory iw 00:29 Acuity: KASH 3 iw 00:35 Initial Sepsis Screen: Does the patient meet any 2 criteria? No. Patient's initial iw sepsis screen is negative. Does the patient have a suspected source of infection? No. Patient's initial sepsis screen is negative. Risk Assessment: Do you want to hurt yourself or someone else? Patient reports no desire to harm self or others. Onset of symptoms was January 14, 2021. 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 - Social history:: Smoking status: Patient denies any tobacco usage or history of. - Family history:: not pertinent. Screenin:49 Abuse screen: Denies threats or abuse. Denies injuries from another. Nutritional jm8 screening: No deficits noted. Tuberculosis screening: No symptoms or risk factors identified. Fall Risk None identified. Assessment: 01:25 General: Appears in no apparent distress. comfortable, Behavior is calm, cooperative, jm8 appropriate for age, Denies fever, feeling ill, fatigue, chills. Pain: Denies pain. Pain does not radiate. Pain began 4 hours ago. Complains of no chest pain currently. Neuro: No deficits noted. Level of Consciousness is awake, alert, obeys commands, Oriented to person, place, time. Cardiovascular: Reports chest pain, palpitations and fluttering in chest since 8 pm Denies Rhythm is regular. Respiratory: No deficits noted. GI: No deficits noted. : No deficits noted. EENT: No deficits noted. Derm: No deficits noted. Musculoskeletal: No deficits noted. Vital Signs: 00:35 BP 156 / 100; Pulse 53; Resp 16; Temp 97.8; Pulse Ox 96% on R/A; Weight 117.93 kg; iw Height 5 ft. 3 in. (160.02 cm); Pain 0/10; 01:28 BP 164 / 104; Pulse 55; Resp 16; Pulse Ox 98% ; jm8 02:49 BP 148 / 86; Pulse 53; Resp 16; Pulse Ox 98% ; jm8 03:26 BP 142 / 96; Pulse 52; Resp 17; Pulse Ox 99% ; jm8 03:27 BP 142 / 96; jm8 00:35 Body Mass Index 46.06 (117.93 kg, 160.02 cm) ED Course: 00:10 Patient arrived in ED. am4 00:20 Hardy Yee MD is Attending Physician. sidney 00:33 Triage completed. iw 00:37 Arm band placed on. iw 00:49 No provider procedures requiring assistance completed. Patient maintains SpO2 8 saturation greater than 95% on room air. 00:51 EKG done, by ED staff, reviewed by Hardy Yee MD. rv 01:10 XRAY Chest (1 view) In Process Unspecified. EDMS 01:29 Patient has correct armband on for positive identification. Bed in low position. Call 8 light in reach. Side rails up X2. Adult w/ patient. map plotter on. Pulse ox on. NIBP on. 01:29 Inserted saline lock: 18 gauge in right forearm, using aseptic technique. jm8 02:28 CT Chest For PE Angio In Process Unspecified. EDMS 02:47 IV discontinued, IV infiltrated. jm8 02:48 Inserted saline lock: 18 gauge in left antecubital area, using aseptic technique. jm8 03:25 Avery Holt MD is Referral Physician. [facility] 03:39 IV discontinued, intact, No redness/swelling at site. jm8 Administered Medications: 00:46 Drug: Aspirin Chewable Tablet 324 mg Route: PO; jm8 03:27 Follow up: Response: No adverse reaction jm8 01:20 Drug: NS 0.9% 1000 ml Route: IV; Rate: 125 ml/hr; Site: right forearm; jm8 03:27 Follow up: Response: No adverse reaction; IV Status: Completed infusion jm8 01:43 Drug: Norvasc (amlodipine) 5 mg Route: PO; jm8 03:27 Follow up: Response: No adverse reaction jm8 03:27 Follow up: BP 142 / 96 jm8 Outcome: 03:25 Discharge ordered by . [facility] 03:39 Discharged to home ambulatory. jm8 03:39 Condition: good 03:39 Discharge instructions given to patient, Instructed on discharge instructions, follow up and referral plans. medication usage, Demonstrated understanding of instructions, follow-up care, medications, Prescriptions given X 2, Following a medical screening exam, the patient was provided information regarding alternative care sites and resources available per registration personnel. 03:40 Patient left the ED. jm8 Signatures: Dispatcher [employer] EDCT Hardy Yee MD MD cha Williams, Irene, RN RN iw Vicente, Ronaldo, RN RN rv Martinez, Ashley am4 Malcaba, Joseph, RN RN jm8 Corrections: (The following items were deleted from the chart) 01:30 01:25 Pain: Denies pain. jm8 jm8 01:31 01:25 Pain: Denies pain. Pain began 4 hours ago. Complains of no chest pain currently jm8 jm8
--- NOTE | 2021-01-14 03:25 | EDPHYS ---
Physician Documentation [facility] Name: Dori Guardado Age: 45 yrs Sex: Female : 1975 Arrival Date: 01/14/2021 Time: 00:10 Bed 28 Private MD: RAFAELA Physician Hardy Yee HPI: 01/14 01:19 This 45 yrs old Black Female presents to ER via Ambulatory with complaints of Chest sidney Pain, Palpitations. 01:19 The patient or guardian reports chest pain that is located primarily in the anterior sidney chest wall. Onset: last night. The pain does not radiate. Associated signs and symptoms: The patient has no apparent associated signs or symptoms. The chest pain is described as aching. Duration: The patient or guardian reports multiple episodes, with no pattern. Severity of pain: At its worst the pain was mild in the emergency department the pain is unchanged. The patient has experienced similar episodes in the past, a few times. 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 - Social history:: Smoking status: Patient denies any tobacco usage or history of. - Family history:: not pertinent. ROS: 01:19 Constitutional: Negative for fever, chills, and weight loss, Eyes: Negative for injury, sidney pain, redness, and discharge, ENT: Negative for injury, pain, and discharge, Neck: Negative for injury, pain, and swelling, Respiratory: Negative for shortness of breath, cough, wheezing, and pleuritic chest pain, Abdomen/GI: Negative for abdominal pain, nausea, vomiting, diarrhea, and constipation, Back: Negative for injury and pain, : Negative for injury, bleeding, discharge, and swelling, MS/Extremity: Negative for injury and deformity, Skin: Negative for injury, rash, and discoloration, Neuro: Negative for headache, weakness, numbness, tingling, and seizure, Psych: Negative for depression, anxiety, suicide ideation, homicidal ideation, and hallucinations, Allergy/Immunology: Negative for hives, rash, and allergies, Endocrine: Negative for neck swelling, polydipsia, polyuria, polyphagia, and marked weight changes. : Cardiovascular: Positive for chest pain, palpitations. Exam: : Constitutional: This is a well developed, well nourished patient who is awake, alert, sidney and in no acute distress. Head/Face: Normocephalic, atraumatic. Eyes: Pupils equal round and reactive to light, extra-ocular motions intact. Lids and lashes normal. Conjunctiva and sclera are non-icteric and not injected. Cornea within normal limits. Periorbital areas with no swelling, redness, or edema. ENT: Nares patent. No nasal discharge, no septal abnormalities noted. Tympanic membranes are normal and external auditory canals are clear. Oropharynx with no redness, swelling, or masses, exudates, or evidence of obstruction, uvula midline. Mucous membranes moist. Neck: Trachea midline, no thyromegaly or masses palpated, and no cervical lymphadenopathy. Supple, full range of motion without nuchal rigidity, or vertebral point tenderness. No Meningismus. Chest/axilla: Normal chest wall appearance and motion. Nontender with no deformity. No lesions are appreciated. Cardiovascular: Regular rate and rhythm with a normal S1 and S2. No gallops, murmurs, or rubs. Normal PMI, no JVD. No pulse deficits. Respiratory: Lungs have equal breath sounds bilaterally, clear to auscultation and percussion. No rales, rhonchi or wheezes noted. No increased work of breathing, no retractions or nasal flaring. Abdomen/GI: Soft, non-tender, with normal bowel sounds. No distension or tympany. No guarding or rebound. No evidence of tenderness throughout. Back: No spinal tenderness. No costovertebral tenderness. Full range of motion. Skin: Warm, dry with normal turgor. Normal color with no rashes, no lesions, and no evidence of cellulitis. MS/ Extremity: Pulses equal, no cyanosis. Neurovascular intact. Full, normal range of motion. Neuro: Awake and alert, GCS 15, oriented to person, place, time, and situation. Cranial nerves II-XII grossly intact. Motor strength 5/5 in all extremities. Sensory grossly intact. Cerebellar exam normal. Normal gait. Psych: Awake, alert, with orientation to person, place and time. Behavior, mood, and affect are within normal limits. 01:19 Musculoskeletal/extremity: Extremities: all appear grossly normal, with no appreciated pain with palpation, ROM: full active range of motion, full passive range of motion, Circulation is intact in all extremities. Sensation intact. Compartment Syndrome exam of affected extremity: is normal. DVT Exam: No signs of deep vein thrombosis. no pain, no swelling, no tenderness, negative Homans' sign noted on exam, no appreciated bluish discoloration, no erythema, no increased warmth. 01:29 ECG was reviewed by the Attending Physician. [facility] Vital Signs: 00:35 BP 156 / 100; Pulse 53; Resp 16; Temp 97.8; Pulse Ox 96% on R/A; Weight 117.93 kg; iw Height 5 ft. 3 in. (160.02 cm); Pain 0/10; 01:28 BP 164 / 104; Pulse 55; Resp 16; Pulse Ox 98% ; jm8 02:49 BP 148 / 86; Pulse 53; Resp 16; Pulse Ox 98% ; 8 03:26 BP 142 / 96; Pulse 52; Resp 17; Pulse Ox 99% ; 8 03:27 BP 142 / 96; jm8 00:35 Body Mass Index 46.06 (117.93 kg, 160.02 cm) iw MDM: 00:20 Patient medically screened. [facility] 01:22 Differential diagnosis: abnormal EKG, acute pericarditis, chest wall pain, sidney Cholelithiasis esophagitis, pancreatitis, pneumonia, pulmonary embolus, stable angina, unstable angina. HEART Score: History: Slightly Suspicious (0), ECG: Normal (0), Age: < or = 45 years (0), Risk Factors: > or = 3 Risk factors for atherosclerotic disease (2), [Hypertension] [+ Family HX] [Obesity] Troponin: < or = 1 x Normal Limit (0). The patient was given aspirin in the Emergency Department. The patient's deep vein thrombosis risk score was calculated as follows: Total Score: 0. This patient was found to be at low risk for a deep vein thrombosis by using the Well's assessment criteria. The patient's pulmonary embolism risk score was calculated as follows: Total Score: 0-2 points. This patient was found to be at low risk for a pulmonary embolism by using the Well's assessment criteria. BACILIO Risk Score: 1 - Three or more CAD risk factors, TOTAL SCORE = 1. Data reviewed: vital signs, nurses notes, lab test result(s), EKG, radiologic studies, CT scan, plain films. Data interpreted: library monitor: rate is 53 beats/min, rhythm is regular, Pulse oximetry: on room air is 96 %. Test interpretation: by ED physician or midlevel provider: ECG, plain radiologic studies. Counseling: I had a detailed discussion with the patient and/or guardian regarding: the historical points, exam findings, and any diagnostic results supporting the discharge/admit diagnosis, lab results, radiology results. 01/14 00:22 Order name: Basic Metabolic Panel [facility] 01/14 00:22 Order name: CBC with Diff [facility] 01/14 00:22 Order name: LFT's [facility] 01/14 00:22 Order name: Magnesium [facility] 01/14 00:22 Order name: NT PRO-BNP [facility] 01/14 00:22 Order name: PT-INR; Complete Time: 03:09 [facility] 01/14 00:22 Order name: Troponin (emerg Dept Use Only); Complete Time: 03:09 [facility] 01/14 00:22 Order name: TSH; Complete Time: 03:09 [facility] 01/14 00:23 Order name: Basic Metabolic Panel; Complete Time: 03:09 [facility] 01/14 00:23 Order name: CBC with Automated Diff; Complete Time: 03:09 [facility] 01/14 00:23 Order name: Liver (Hepatic) Function; Complete Time: 03:09 [facility] 01/14 00:23 Order name: Magnesium; Complete Time: 03:09 [facility] 01/14 00:23 Order name: NT PRO-BNP; Complete Time: 03:09 [facility] 01/14 01:19 Order name: Troponin (emerg Dept Use Only): 3 AM; Complete Time: 03:24 sidney 01/14 00:22 Order name: XRAY Chest (1 view) [facility] 01/14 00:22 Order name: EKG; Complete Time: 00:23 [facility] 01/14 00:22 Order name: Cardiac monitoring; Complete Time: 00:51 [facility] 01/14 00:22 Order name: EKG - Nurse/Tech; Complete Time: 00:51 [facility] 01/14 00:22 Order name: IV Saline Lock; Complete Time: 01:38 [facility] 01/14 00:22 Order name: Labs collected and sent; Complete Time: 01:38 [facility] 01/14 00:22 Order name: O2 Per Protocol; Complete Time: 00:40 [facility] 01/14 00:22 Order name: O2 Sat Monitoring; Complete Time: 00:40 [facility] 01/14 01:18 Order name: CT Chest For PE Angio sidney EC:29 Rate is 56 beats/min. Rhythm is regular. QRS [place] is Normal. OK interval is normal. QRS sidney interval is normal. QT interval is normal. No Q waves. T waves are Normal. No ST changes noted. Clinical impression: Sinus bradycardia and No evidence of ischemia. Interpreted by me. Reviewed by me. Administered Medications: 00:46 Drug: Aspirin Chewable Tablet 324 mg Route: PO; 8 03: Follow up: Response: No adverse reaction [facility] :20 Drug: NS 0.9% 1000 ml Route: IV; Rate: 125 ml/hr; Site: right forearm; 8 03:27 Follow up: Response: No adverse reaction; IV Status: Completed infusion jm8 01:43 Drug: Norvasc (amlodipine) 5 mg Route: PO; 8 03:27 Follow up: Response: No adverse reaction 8 03: Follow up: BP 142 / 96 8 Disposition: 01/14/21 03:25 Discharged to Home. Impression: Chest pain, unspecified, Palpitations, Essential (primary) hypertension, Obesity, unspecified, Cardiomegaly. - Condition is Stable. - Discharge Instructions: Nonspecific Chest Pain, Hypertension, Obesity, Adult, Palpitations, Nonspecific Chest Pain, Gzqa-di-Mejw, Hypertension, Jupz-pc-Wsvg, How to Take Your Blood Pressure, Clhl-jq-Brkw, Aspirin and Your Heart, Palpitations, Pzyt-ts-Kyzg, Managing Your Hypertension. - Prescriptions for Norvasc 5 mg Oral Tablet - take 1 tablet by ORAL route once daily; 20 tablet. Pepcid 20 mg Oral Tablet - take 1 tablet by ORAL route every 12 hours for 10 days; 20 tablet. - Medication Reconciliation Form, Thank You Letter, Antibiotic Education, Prescription Opioid Use form. - Follow up: Private Physician; When: 2 - 3 days; Reason: Recheck today's complaints, Continuance of care, Re-evaluation by your physician. Follow up: Avery Holt; When: 2 - 3 days; Reason: Recheck today's complaints, Continuance of care, Re-evaluation by your physician. - Problem is new. - Symptoms have improved. Signatures: Dispatcher [employer] EDNJ Hardy Yee MD MD cha Williams, Irene, RN RN iw Malcaba, Joseph, RN RN jm8 Corrections: (The following items were deleted from the chart) 03:40 03:25 01/14/2021 03:25 Discharged to Home. Impression: Chest pain, unspecified; jm8 Palpitations; Essential (primary) hypertension; Obesity, unspecified; Cardiomegaly. Condition is Stable. Discharge Instructions: Nonspecific Chest Pain, Hypertension, Obesity, Adult, Palpitations, Nonspecific Chest Pain, Zngk-mr-Jmgg, Hypertension, Sxni-kb-Rjwg, How to Take Your Blood Pressure, Fnxh-uk-Bhlt, Aspirin and Your Heart, Palpitations, Pnvy-do-Fyed, Managing Your Hypertension. Prescriptions for Norvasc 5 mg Oral Tablet - take 1 tablet by ORAL route once daily; 20 tablet, Pepcid 20 mg Oral Tablet - take 1 tablet by ORAL route every 12 hours for 10 days; 20 tablet. and Forms are Medication Reconciliation Form, Thank You Letter, Antibiotic Education, Prescription Opioid Use. Follow up: Private Physician; When: 2 - 3 days; Reason: Recheck today's complaints, Continuance of care, Re-evaluation by your physician. Follow up: Avery Holt; When: 2 - 3 days; Reason: Recheck today's complaints, Continuance of care, Re-evaluation by your physician. Problem is new. Symptoms have improved. sidney
[2021-01-14 04:04] VITALS: TEMP 97.8
[2021-01-14 04:08] VITALS: BP 142/96; O2SAT 99
--- NOTE | 2021-01-14 07:53 | RAD REPORT ---
EXAM DESCRIPTION: RAD - Chest Single View - 01/14/2021 1:11 am CLINICAL HISTORY: Chest pain;Palpitations COMPARISON: January 09 TECHNIQUE: AP portable chest image was obtained 01/14/2021 1:11 am . FINDINGS: Lung volumes are low. Under penetrated portable technique and large body habitus further c ontribute to exam limitations. No peripheral mass or consolidation. Interstitial pattern matches comparison. Mild cardiomegaly is si milar to comparison. Vasculature within normal limits for shallow inspiration exam. No measurable pleural effusion and no pneumothorax. No acute bony abnormality seen. No acute aortic findings suspected. IMPRESSION: Limited portable study without acute cardiopulmonary finding. No significant change from comparison.
--- NOTE | 2021-01-14 11:40 | RAD REPORT ---
EXAM DESCRIPTION: CT - Chest For Pe Angio - 01/14/2021 6:34 am CLINICAL HISTORY: 45 years Female Chest pain; Dyspnea TECHNIQUE: Contiguous axial images obtained through the chest were obtained from the thoracic inlet to the level of the upper abdomen during the pulmonary arterial phase of intravenous contrast adminis tration. Coronal and sagittal reformatted and MIP images provided. This CT exam was performed according to our departmental dose-optimization program, which includes on e or more of the following dose reduction techniques: automated exposure control, adjustment of the m A and/or kV according to patient size, and/or use of iterative reconstruction technique. COMPARISON: 04/25/2020 FINDINGS: There is no visualized pulmonary embolus. Several images through the lung bases are degrad ed by patient motion. Stable mild cardiomegaly without pericardial effusion. No thoracic aortic aneurysm or dissection. No lymphadenopathy in the chest. Stable 4 mm left lower lobe pulmonary nodule. This does not require follow-up. Patchy atelectasis and air trapping. No dense consolidation, pleural effusion, or pneumothorax. There are no visualized acute osseous or upper abdominal abnormalities. IMPRESSION: No pulmonary embolus. No acute cardiopulmonary findings. Stable cardiomegaly. Electronically signed by: Pao Paul MD 01/14/2021 2:34 AM CDT Due to temporary technical issues with the PACS/Fluency reporting system, reports are being signed by the in house radiologist without review as a courtesy to ensure prompt reporting. The interpreting r adiologist is fully responsible for the content of the report.
== END 2021-01-14 03:40 | disposition home or self-care (01) ==
LOC: ER 00:07
DX: R07.9 Chest pain, unspecified (principal); R00.2 Palpitations; E66.9 Obesity, unspecified; I11.9 Hypertensive heart disease without heart failure; Z68.42 Body mass index [BMI] 45.0-49.9, adult; K50.90 Crohn's disease, unspecified, without complications; I48.91 Unspecified atrial fibrillation
CPT/HCPCS: 96361; 93005; 85025; 80048; 36415; 83735; 85610; 80076; 84443; 84484 ×2; 83880; 71275; 71045; 96360; 99285; Q9967; J7030

== ENCOUNTER 2021-02-14 22:40 | Emergency (ER) | payer OTHER ==
--- OUTSIDE RECORDS SUMMARY | 2021-02-14 22:44 | XMS REPORT | Continuity of Care Document ---
:1975 Author Organization [facility] t Address [address] [place] [address] Care Team Providers Name Role Phone Unavailable [...] Sodium 8-10 [facility] 00 [facility] Ergocalcife Ergocalcife 2018- 2020- No Na Lopez [address] [facility] 1-18 02-16 [facility]00 [facility] 00 :00 [facility] Paxil Paxil Yes Na Lopez [address] [facility] 4-03 in the [facility] - 00:00: morning [facility] 00 [facility] Humira Humira Yes Na Lopez not [facility] Aspirin Aspirin Yes Na Lopez not [facility] BusPIRone BusPIRone Yes Na Lopez [address] [facility] HCl HCl [facility] Metoprolol Metoprolol Yes Na Lopez [address] [facility] Tartrate Tartrate with food [facility] ent [facility] Procedures This patient has no known procedures. Encounters Start End Encounter Admission Attending Care Care Encounter Source Date/Time Date/Time Type Type Clinicians Facility Department ID 2021-01-04 2021-01-04 [id number] 2020-11-03 2020-11-03 [facility] [id number] [facility] 2020-08-03 2020-08-03 [facility] [id number] [facility] 2020-05-04 2020-05-04 [facility] [id number] 10:10:00 10:10:00 t [employer] [facility] Medicine l Medicine Outpati ent Clinics 2020-05-01 2020-05-01 [facility] [id number] 09:40:00 09:40:00 t [employer] [facility] Medicine Medicine Outpati ent Clinics 2020-02-19 2020-02-19 [facility] [id number] 16:06:00 16:06:00 t [facility] l Medicine Outpat[facility] ent Clinics 2019-12-12 2019-12-12 [facility] [id number] [address] 15:41:00 15:41:00 t [employer] [facility] Medicine Medicine Outpati ent Clinics 2019-09-16 2019-09-16 [facility] [id number] [address] 14:40:00 14:40:00 t [employer] [facility] Medicine Outpati ent Clinics 2019-08-15 2019-08-15 [facility] [id number] 09:27:00 09:27:00 t [employer] [facility] l Medicine Outpati ent Clinics 2019-08-12 2019-08-12 [facility] [id number] 09:00:00 09:00:00 t [employer] [facility] Out[facility] Clinics 2019-07-31 2019-07-31 [facility] [id number] [address] 11:46:00 11:46:[address] [employer] [facility] Outpati ent Clinics 2019-07-29 2019-07-29 [facility] [id number] [address] 09:40:00 09:40:[address] [employer] [facility] Outpati ent Clinics 2019-06-02 2019-06-02 [facility] [id number] [address] 09:38:00 09:38:00 [facility] Outpati ent Clinics 2019-05-31 2019-05-31 [facility] [id number] 11:30:00 11:30:00 [facility] Outpat[facility] ent Clinics 2018-01-19 2018-01-19 [facility] [id number] [address] 08:11:00 08:11:[address] [employer] [facility] Outpati ent Clinics 2018-01-18 2018-01-18 [facility] [id number] [address] 10:15:00 10:15:[address] [employer] [facility] Outpati ent Clinics 2017-12-26 2017-12-26 [facility] [id number] 09:30:00 09:30:[address] [employer] [facility] Outpat[facility] ent Clinics Results This patient has no known results.
[2021-02-14] MEDS ORDERED: IBUPROFEN 400 MG TAB ONE (23:58)
--- NOTE | 2021-02-15 01:32 | EDPHYS ---
Physician Documentation [facility] Name: Dori Guardado Age: 46 yrs Sex: Female : 1975 Arrival Date: 02/14/2021 Time: 22:42 Bed 4 Private MD: ED Physician Phoenix Acevedo HPI: 02/15 00:03 This 46 yrs old Black Female presents to ER via Ambulatory with complaints of Neck pkl Pain, >24Hrs Old, Arm Pain. 00:03 The patient or guardian complains of pain, that is acute. The symptoms are located left pkl side neck. Onset: The symptoms/episode began/occurred yesterday. Associated signs and symptoms: The patient has no apparent associated signs or symptoms. Location: left upper extremity. 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 - Social history:: Smoking status: Patient denies any tobacco usage or history of. ROS: 02/15 00:03 Eyes: Negative for injury, pain, redness, and discharge, ENT: Negative for injury, pkl pain, and discharge. Neck: Positive for pain with movement. Cardiovascular: Negative for chest pain. Respiratory: Negative for cough, shortness of breath. Abdomen/GI: Negative for abdominal pain, nausea, vomiting, and diarrhea. Back: Negative for acute changes. : Negative for urinary symptoms. MS/extremity: Negative for acute changes. Skin: Negative for rash. Neuro: Negative for altered mental status, loss of consciousness. Exam: 00:03 Head/Face: Normocephalic, atraumatic. Eyes: Pupils equal round and reactive to light, pkl extra-ocular motions intact. Lids and lashes normal. Conjunctiva and sclera are non-icteric and not injected. Cornea within normal limits. Periorbital areas with no swelling, redness, or edema. ENT: Nares patent. No nasal discharge, no septal abnormalities noted. Tympanic membranes are normal and external auditory canals are clear. Oropharynx with no redness, swelling, or masses, exudates, or evidence of obstruction, uvula midline. Mucous membranes moist. 00:03 Neck: ROM/movement: pain, that is mild, with rotation to the left. 00:03 Chest/axilla: Exam negative for acute changes. 00:03 Cardiovascular: Rate: normal, Rhythm: regular. 00:03 ECG was reviewed by the Attending Physician. 00:03 Respiratory: the patient does not display signs of respiratory distress, Respirations: normal, Breath sounds: are clear throughout. 00:03 Abdomen/GI: Bowel sounds: normal, Palpation: abdomen is soft and non-tender, in all quadrants. 00:03 Back: Exam negative for acute changes. 00:03 : Exam negative for acute changes. 00:03 Musculoskeletal/extremity: Exam is negative for acute changes. 00:03 Skin: Exam negative for rash. 00:03 Neuro: Orientation: is normal, Mentation: is normal, Cranial nerves: grossly normal, Motor: is normal. Vital Signs: 02/14 23:04 BP 146 / 91; Pulse 83; Resp 16 S; Temp 98.1(O); Pulse Ox 99% on R/A; Weight 122.47 kg bb (R); Height 5 ft. 3 in. (160.02 cm) (R); Pain 6/10; 02/15 00:00 BP 138 / 79; Pulse 81; Resp 19; Pulse Ox 100% ; lp1 00:30 BP 126 / 79; Pulse 80; Resp 18; Pulse Ox 100% on R/A; lp1 01:00 BP 111 / 72; Pulse 82; Resp 18; Pulse Ox 100% on R/A; lp1 02/14 23:04 Body Mass Index 47.83 (122.47 kg, 160.02 cm) bb MDM: 02/14 23:08 Patient medically screened. pkl 02/15 01:27 Data reviewed: vital signs, nurses notes. ED course: Discussed lab. EKG and CT Scan pkl results with patient. Advised to follow up with PCP in 2 to 3 days. May need MRI C- spines if not better. Patient understood instructions. 02/14 23:17 Order name: Troponin (emerg Dept Use Only); Complete Time: 01:26 pkl 02/14 23:17 Order name: CT C Spine pkl 02/14 23:17 Order name: EKG; Complete Time: 23:17 pkl Administered Medications: 02/14 23:41 Drug: Motrin (ibuprofen) 800 mg Route: PO; jb4 Disposition: 02/15/21 01:31 Discharged to Home. Impression: Cervcal radiculopathy. - Condition is Stable. - Prescriptions for Diclofenac Sodium 75 mg Oral Tablet Sustained Release - take 1 tablet by ORAL route 2 times per day; 30 tablet. - Medication Reconciliation Form, Thank You Letter, Antibiotic Education, Prescription Opioid Use form. - Follow up: Private Physician; When: 2 - 3 days; Reason: Re-evaluation by your physician. - Problem is new. - Symptoms have improved. Signatures: Dispatcher [employer] EDMD Phoenix Acevedo MD MD pkl Precious Felton RN RN Hong Blanco RN RN jb4 Corrections: (The following items were deleted from the chart) 02/15 01:50 01:31 02/15/2021 01:31 Discharged to Home. Impression: Cervcal radiculopathy. Condition jb4 is Stable. Forms are Medication Reconciliation Form, Thank You Letter, Antibiotic Education, Prescription Opioid Use. Follow up: Private Physician; When: 2 - 3 days; Reason: Re-evaluation by your physician. Problem is new. Symptoms have improved. pkl
--- NOTE | 2021-02-15 01:32 | ER ---
Nurse's Notes [facility] Name: Dori Guardado Age: 46 yrs Sex: Female : 1975 Arrival Date: 02/14/2021 Time: 22:42 Bed 4 Private MD: Diagnosis: Cervcal radiculopathy Presentation: 02/14 23:04 Chief complaint: Patient states: she is having facial pain radiating down her jaw into bb her neck and left arm since yesterday the pain is achy and currently 6/10. Coronavirus screen: At this time, the client does not indicate any symptoms associated with coronavirus-19. Ebola Screen: No symptoms or risks identified at this time. Initial Sepsis Screen: Does the patient meet any 2 criteria? No. Patient's initial sepsis screen is negative. Does the patient have a suspected source of infection? No. Patient's initial sepsis screen is negative. Risk Assessment: Do you want to hurt yourself or someone else? Patient reports no desire to harm self or others. Onset of symptoms was February 13, 2021. 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 - Social history:: Smoking status: Patient denies any tobacco usage or history of. Screenin:10 Abuse screen: Denies threats or abuse. Nutritional screening: No deficits noted. jb4 Tuberculosis screening: No symptoms or risk factors identified. Fall Risk None identified. Assessment: 23:15 General: Appears in no apparent distress. uncomfortable, Behavior is calm, cooperative, jb4 appropriate for age. Pain: Complains of pain in Left shoulder Pain radiates to left arm Pain currently is 6 out of 10 on a pain scale. Neuro: Level of Consciousness is awake, alert, obeys commands, Oriented to person, place, time, situation. Cardiovascular: Patient's skin is warm and dry. Respiratory: Airway is patent Respiratory effort is even, unlabored, Respiratory pattern is regular, symmetrical. GI: No signs and/or symptoms were reported involving the gastrointestinal system. : No signs and/or symptoms were reported regarding the genitourinary system. EENT: No signs and/or symptoms were reported regarding the EENT system. Derm: Skin is intact, Skin is dry, Skin is normal, Skin temperature is warm. Musculoskeletal: Circulation, motion, and sensation intact. Range of motion: intact in all extremities. 02/15 00:15 Reassessment: Patient appears in no apparent distress at this time. Patient and/or jb4 family updated on plan of care and expected duration. Pain level reassessed. Patient is alert, oriented x 3, equal unlabored respirations, skin warm/dry/pink. 01:15 Reassessment: Patient appears in no apparent distress at this time. Patient and/or jb4 family updated on plan of care and expected duration. Pain level reassessed. Patient is alert, oriented x 3, equal unlabored respirations, skin warm/dry/pink. Vital Signs: 02/14 23:04 BP 146 / 91; Pulse 83; Resp 16 S; Temp 98.1(O); Pulse Ox 99% on R/A; Weight 122.47 kg bb (R); Height 5 ft. 3 in. (160.02 cm) (R); Pain 6/10; 02/15 00:00 BP 138 / 79; Pulse 81; Resp 19; Pulse Ox 100% ; lp1 00:30 BP 126 / 79; Pulse 80; Resp 18; Pulse Ox 100% on R/A; lp1 01:00 BP 111 / 72; Pulse 82; Resp 18; Pulse Ox 100% on R/A; lp1 02/14 23:04 Body Mass Index 47.83 (122.47 kg, 160.02 cm) bb ED Course: 02/14 22:42 Patient arrived in ED. cf2 23:06 Triage completed. bb 23:08 Phoenix Acevedo MD is Attending Physician. pkl 23:08 Arm band placed on Patient placed in an exam room, on a stretcher, on pulse oximetry. bb 23:10 Patient has correct armband on for positive identification. Bed in low position. Call jb4 light in reach. Side rails up X 1. Pulse ox on. NIBP on. 23:13 Hong Mosher, RN is Primary Nurse. jb4 02/15 00:05 Inserted saline lock: 24 gauge in right forearm, using aseptic technique. Blood ds4 collected. 01:02 CT C Spine In Process Unspecified. EDMS 01:49 No provider procedures requiring assistance completed. jb4 01:50 IV discontinued, intact, bleeding controlled, No redness/swelling at site. Pressure jb4 dressing applied. Administered Medications: 02/14 23:41 Drug: Motrin (ibuprofen) 800 mg Route: PO; jb4 Outcome: 02/15 01:31 Discharge ordered by . pkmicaela 01:50 Discharged to home ambulatory. jb4 01:50 Condition: stable 01:50 Discharge instructions given to patient, Instructed on discharge instructions, follow up and referral plans. medication usage, Demonstrated understanding of instructions, follow-up care, medications, Prescriptions given X 1. 01:50 Patient left the ED. jb4 Signatures: Dispatcher [employer] EDMS Phoenix Acevedo MD MD pkl Ballard, Brenda, RN RN bb Tracy Joshua, RN RN lp1 Benito Cobos ds4 Hong Mosher, RN RN jb4 Moshe Hines cf2 Corrections: (The following items were deleted from the chart) 01:50 02/14 23:10 No provider procedures requiring assistance completed. jb4 jb4 02/15 01:50 02/14 23:10 IV discontinued, intact, bleeding controlled, No redness/swelling at site. jb4 Pressure dressing applied, jb4
[2021-02-15 02:12] VITALS: TEMP 98.1
[2021-02-15 02:13] VITALS: O2SAT 100
[2021-02-15 02:15] VITALS: BP 111/72
--- NOTE | 2021-02-15 17:42 | RAD REPORT ---
EXAM DESCRIPTION: CT - C Spine Wo Con - 02/15/2021 4:51 am CLINICAL HISTORY: The patient is 46 years old and is Female; PAIN TECHNIQUE: Axial computed tomography images of the cervical spine without intravenous contrast. Sa gittal and coronal reformatted images were created and reviewed. This CT exam was performed using o ne or more of the following dose reduction techniques: automated exposure control, adjustment of th e mA and/or kV according to patient size, and/or use of iterative reconstruction technique. COMPARISON: No relevant prior studies available. FINDINGS: Vertebrae: No acute cervical spine fracture or subluxation. Discs/spinal canal/neural foramina: No acute findings. No spinal canal stenosis. Soft tissues: Unremarkable. IMPRESSION: No acute cervical spine fracture or subluxation. Electronically signed by: Jaziel Kwong MD 02/15/2021 1:18 AM CDT Due to temporary technical issues with the PACS/Fluency reporting system, reports are being signed by the in house radiologists without review as a courtesy to insure prompt reporting. The interpreting radiologist is fully responsible for the content of the report.
== END 2021-02-15 01:50 | disposition home or self-care (01) ==
LOC: ER 22:40
DX: M54.12 Radiculopathy, cervical region (principal); I10 Essential (primary) hypertension; I48.91 Unspecified atrial fibrillation; Z79.82 Long term (current) use of aspirin
CPT/HCPCS: 36415; 72125; 84484; 93005; 99284

== ENCOUNTER 2021-02-21 02:26 | Emergency (ER) | payer OTHER ==
--- OUTSIDE RECORDS SUMMARY | 2021-02-21 02:29 | XMS REPORT | Continuity of Care Document ---
:1975 Author Organization [facility] t Address [address] [place] [address] Care Team Providers Name Role Phone Unavailable [...] Sodium 8-10 [facility]: Mem[facility] 00 [facility] Ergocalcife Ergocalcife 2018- 2020- No Na Lopez [address] [facility]l 1-18 02-16 [facility]00 Memoria 00 :00 [facility] Paxil Paxil Yes Na Lopez [address] [facility] 4-03 in the [facility] 00:00: morning Mem[facility] 00 [facility] Humira Humira Yes Na Lopez not [facility] Aspirin Aspirin Yes Na Lopze not [facility] BusPIRone BusPIRone Yes Na Lopez [address] [facility] HCl HCl [facility] Metoprolol Metoprolol Yes Na Lopez [address] [facility] Tartrate Tartrate with food [facility] ent [facility] Procedures This patient has no known procedures. Encounters Start End Encounter Admission Attending Care Care Encounter Source Date/Time Date/Time Type Type Clinicians Facility Department ID 2021-01-04 2021-01-04 Outpatient [facility] [id number] 2020-11-03 2020-11-03 [facility] [id number] [facility] 2020-08-03 2020-08-03 [facility] [id number] [facility] 2020-05-04 2020-05-04 [facility] [id number] 10:10:00 10:10:00 t [facility] Medicine l Medicine Outpati ent Clinics 2020-05-01 2020-05-01 [facility] [id number] [facility] 09:40:00 09:40:00 t [facility] Medicine Medicine Outpati ent Clinics 2020-02-19 2020-02-19 [facility] [id number] 16:06:00 16:06:00 t [facility] l Medicine Outpati ent Clinics 2019-12-12 2019-12-12 [facility] [id number] 15:41:00 15:41:00 t [employer] [facility] Medicine Medicine Outpati ent Clinics 2019-09-16 2019-09-16 [facility] [id number] 14:40:00 14:40:00 t [employer] [facility] Medicine Outpati ent Clinics 2019-08-15 2019-08-15 [facility] [id number] 09:27:00 09:27:00 t [facility] l Medicine Outpati ent Clinics 2019-08-12 2019-08-12 [facility] [id number] 09:00:00 09:00:00 t [facility] Clinics 2019-07-31 2019-07-31 [facility] [id number] [facility] 11:46:00 11:46:00 t [facility] Outpati ent Clinics 2019-07-29 2019-07-29 [facility] [id number] [facility] 09:40:00 09:40:00 t [facility] Outpati ent Clinics 2019-06-02 2019-06-02 [facility] [id number] [facility] 09:38:00 09:38:00 [facility] l Outpati ent Clinics 2019-05-31 2019-05-31 [facility] [id number] [facility] 11:30:00 11:30:00 [facility] l Outpati ent Clinics 2018-01-19 2018-01-19 [facility] [id number] 08:11:00 08:11:00 t [facility] Outpati ent Clinics 2018-01-18 2018-01-18 [facility] [id number] 10:15:00 10:15:00 t [facility] Outpati ent Clinics 2017-12-26 2017-12-26 [facility] [id number] [facility] 09[facility]30:00 09:30:00 t [facility] Outpati ent Clinics Results This patient has no known results.
[2021-02-21 05:09] LABS: SARS-COV-2 RT PCR NEGATIVE (NEGATIVE)
--- NOTE | 2021-02-21 05:26 | EDPHYS ---
Physician Documentation [facility] Name: Dori Guardado Age: 46 yrs Sex: Female : 1975 Arrival Date: 02/21/2021 Time: 02:31 Bed 17 Private MD: Noemy Lopez ED Physician Carlos Alberto Rios HPI: 02/21 04:28 This 46 yrs old Black Female presents to ER via Ambulatory with complaints of Chest mh7 Congestion, Low bloos pressure, Cough. 04:28 This 46 yrs old Black Female presents to ER via Ambulatory with complaints of Chest mh7 Congestion, Low bloos pressure, Cough. 04:28 The patient or guardian reports cough, that is intermittent, described as moderate, mh7 with productive sputum, that is green. Onset: The symptoms/episode began/occurred 2 day(s) ago. Severity of symptoms: At their worst the symptoms were moderate, yesterday, in the emergency department the symptoms have improved, moderately. Modifying factors: The symptoms are alleviated by nothing, the symptoms are aggravated by nothing. 04:29 Associated signs and symptoms: Pertinent positives: rhinorrhea, elevated blood mh7 pressure, Pertinent negatives: chest pain, diarrhea, ear ache, fever, nausea, sore throat, vomiting. 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 - Social history:: Smoking status: Patient denies any tobacco usage or history of. Patient uses alcohol, occasionally. ROS: 04:29 Constitutional: Negative for fever, chills, and weight loss, Eyes: Negative for injury, mh7 pain, redness, and discharge, Neck: Negative for injury, pain, and swelling, Cardiovascular: Negative for chest pain, palpitations, and edema, Respiratory: Negative for shortness of breath, cough, wheezing, and pleuritic chest pain, Abdomen/GI: Negative for abdominal pain, nausea, vomiting, diarrhea, and constipation, Back: Negative for injury and pain, MS/Extremity: Negative for injury and deformity, Skin: Negative for injury, rash, and discoloration, Neuro: Negative for headache, weakness, numbness, tingling, and seizure, Psych: Negative for depression, anxiety, suicide ideation, homicidal ideation, and hallucinations, Allergy/Immunology: Negative for hives, rash, and allergies, Endocrine: Negative for neck swelling, polydipsia, polyuria, polyphagia, and marked weight changes. Exam: 04:29 Constitutional: This is a well developed, well nourished patient who is awake, alert, mh7 and in no acute distress. Head/Face: Normocephalic, atraumatic. Eyes: Pupils equal round and reactive to light, extra-ocular motions intact. Lids and lashes normal. Conjunctiva and sclera are non-icteric and not injected. Cornea within normal limits. Periorbital areas with no swelling, redness, or edema. ENT: Nares patent. No nasal discharge, no septal abnormalities noted. Tympanic membranes are normal and external auditory canals are clear. Oropharynx with no redness, swelling, or masses, exudates, or evidence of obstruction, uvula midline. Mucous membranes moist. Neck: Trachea midline, no thyromegaly or masses palpated, and no cervical lymphadenopathy. Supple, full range of motion without nuchal rigidity, or vertebral point tenderness. No Meningismus. Chest/axilla: Normal chest wall appearance and motion. Nontender with no deformity. No lesions are appreciated. Cardiovascular: Regular rate and rhythm with a normal S1 and S2. No gallops, murmurs, or rubs. Normal PMI, no JVD. No pulse deficits. Respiratory: Lungs have equal breath sounds bilaterally, clear to auscultation and percussion. No rales, rhonchi or wheezes noted. No increased work of breathing, no retractions or nasal flaring. Abdomen/GI: Soft, non-tender, with normal bowel sounds. No distension or tympany. No guarding or rebound. No evidence of tenderness throughout. Back: No spinal tenderness. No costovertebral tenderness. Full range of motion. Skin: Warm, dry with normal turgor. Normal color with no rashes, no lesions, and no evidence of cellulitis. MS/ Extremity: Pulses equal, no cyanosis. Neurovascular intact. Full, normal range of motion. Neuro: Awake and alert, GCS 15, oriented to person, place, time, and situation. Cranial nerves II-XII grossly intact. Motor strength 5/5 in all extremities. Sensory grossly intact. Cerebellar exam normal. Normal gait. Psych: Awake, alert, with orientation to person, place and time. Behavior, mood, and affect are within normal limits. Vital Signs: 02:44 BP 144 / 93; Pulse 74; Resp 22; Temp 97.4; Pulse Ox 95% on R/A; Weight 122.02 kg (R); tt3 Height 5 ft. 3 in. (160.02 cm) (R); Pain 0/10; 04:57 BP 153 / 99; Pulse 80; Resp 20; Pulse Ox 98% ; rr5 05:40 BP 141 / 75; Pulse 85; Resp 19; Temp 98; Pulse Ox 99% ; rr5 02:44 Body Mass Index 47.65 (122.02 kg, 160.02 cm) tt3 MDM: 05:24 Differential Diagnosis: Obstructed Airway Bronchitis Influenza Upper Respiratory mh7 Infection Allergic Rhinitis Viral Syndrome Pneumonia. Data reviewed: vital signs, nurses notes, lab test result(s), Flu: negative radiologic studies, plain films. Data interpreted: Pulse oximetry: on room air is 98 %. Interpretation: normal. Counseling: I had a detailed discussion with the patient and/or guardian regarding: the historical points, exam findings, and any diagnostic results supporting the discharge/admit diagnosis, the presence of at least one elevated blood pressure reading (>120/80) during this emergency department visit, lab results, radiology results, the need for outpatient follow up, to return to the emergency department if symptoms worsen or persist or if there are any questions or concerns that arise at home. Response to treatment: the patient's symptoms have markedly improved after treatment. 05:26 Patient medically screened. [facility] 02/21 03:38 Order name: Chest Single View EDMS 02/21 05:09 Order name: COVID-19/FLU A+B; Complete Time: 05:21 EDMS Administered Medications: No medications were administered Disposition: 02/21/21 05:26 Discharged to Home. Impression: Upper Respiratory Infection. - Condition is Stable. - Discharge Instructions: Upper Respiratory Infection, Adult, [id number]. - Prescriptions for Tessalon Perles 100 mg Oral Capsule - take 1 capsule by ORAL route every 8 hours As needed; 15 capsule. Zithromax Z- [place] 250 mg Oral Tablet - take 1 tablet by ORAL route as directed for 5 days Day 1 - take two (2) tablets one time. Day 2, 3, 4 , 5 take one (1) tablet once daily.; 6 tablet. Albuterol Sulfate 90 mcg/actuation - inhale 1-2 puff by INHALATION route every 4-6 hours; 1 Inhaler. - Medication Reconciliation Form, Thank You Letter, Antibiotic Education, Prescription Opioid Use form. - Follow up: Private Physician; When: 1 - 2 days; Reason: Worsening of condition, Recheck today's complaints, Continuance of care, Re-evaluation by your physician. - Problem is new. - Symptoms have improved. Signatures: Dispatcher [employer] [facility] Staci Tran RN RN iw Tahir Villeda RN RN rr5 Carlos Alberto Rios MD MD mh7 Corrections: (The following items were deleted from the chart) 04:20 03:38 CORONAVIRUS ordered. [facility] 05:44 05:26 02/21/2021 05:26 Discharged to Home. Impression: Upper Respiratory Infection. rr5 Condition is Stable. Forms are Medication Reconciliation Form, Thank You Letter, Antibiotic Education, Prescription Opioid Use. Follow up: Private Physician; When: 1 - 2 days; Reason: Worsening of condition, Recheck today's complaints, Continuance of care, Re-evaluation by your physician. Problem is new. Symptoms have improved. mh7
--- NOTE | 2021-02-21 05:26 | ER ---
Nurse's Notes [facility] Name: Dori Guardado Age: 46 yrs Sex: Female : 1975 Arrival Date: 02/21/2021 Time: 02:31 Bed 17 Private MD: Noemy Lopez Diagnosis: Upper Respiratory Infection Presentation: 02/21 02:45 Chief complaint: Chief complaint: Patient states: cough, congestion, green sputum. iw 02:47 Coronavirus screen: Ebola Screen: Patient negative for fever greater than or equal to iw 101.5 degrees Fahrenheit, and additional compatible Ebola Virus Disease symptoms Patient denies exposure to infectious person. Patient denies travel to an Ebola-affected area in the 21 days before illness onset. No symptoms or risks identified at this time. Initial Sepsis Screen: Does the patient meet any 2 criteria? No. Patient's initial sepsis screen is negative. Does the patient have a suspected source of infection? No. Patient's initial sepsis screen is negative. Risk Assessment: Do you want to hurt yourself or someone else? Patient reports no desire to harm self or others. Onset of symptoms. 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 - Social history:: Smoking status: Patient denies any tobacco usage or history of. Patient uses alcohol, occasionally. Screenin:10 Abuse screen: Denies threats or abuse. Denies injuries from another. Nutritional rr5 screening: No deficits noted. Tuberculosis screening: No symptoms or risk factors identified. Fall Risk None identified. Total Jane Fall Scale indicates No Risk (0-24 pts). Assessment: 03:00 General: Appears in no apparent distress. comfortable, Behavior is calm, cooperative, rr5 appropriate for age. 03:00 Pain: Denies pain. Neuro: Level of Consciousness is awake, alert, obeys commands, rr5 Oriented to person, place, time. Cardiovascular: Capillary refill < 3 seconds Patient's skin is warm and dry. Respiratory: Reports cough that is congestion green sputum Airway is patent Respiratory effort is even, unlabored, Respiratory pattern is regular, symmetrical. Derm: Skin is intact, is healthy with good turgor, Skin temperature is warm. Musculoskeletal: Capillary refill < 3 seconds. 04:00 Reassessment: Patient appears in no apparent distress at this time. Patient and/or rr5 family updated on plan of care and expected duration. Pain level reassessed. Patient is alert, oriented x 3, equal unlabored respirations, skin warm/dry/pink. 04:57 Reassessment: Patient appears in no apparent distress at this time. Patient is alert, rr5 oriented x 3, equal unlabored respirations, skin warm/dry/pink. awaiting for covid result. 05:40 Reassessment: Patient appears in no apparent distress at this time. Patient is alert, rr5 oriented x 3, equal unlabored respirations, skin warm/dry/pink. discharge instruction given and explained without complaints made. Vital Signs: 02:44 BP 144 / 93; Pulse 74; Resp 22; Temp 97.4; Pulse Ox 95% on R/A; Weight 122.02 kg (R); tt3 Height 5 ft. 3 in. (160.02 cm) (R); Pain 0/10; 04:57 BP 153 / 99; Pulse 80; Resp 20; Pulse Ox 98% ; rr5 05:40 BP 141 / 75; Pulse 85; Resp 19; Temp 98; Pulse Ox 99% ; rr5 02:44 Body Mass Index 47.65 (122.02 kg, 160.02 cm) tt3 ED Course: 02:31 Patient arrived in ED. es 02:31 Noemy Lopez MD is Private Physician. es 02:44 Tahir Villeda, RN is Primary Nurse. rr5 02:48 Triage completed. iw 03:10 Patient has correct armband on for positive identification. Bed in low position. Call rr5 light in reach. 03:13 Carlos Alberto Rios MD is Attending Physician. [facility] 03:20 Arm band placed on right wrist. rr5 03:50 No provider procedures requiring assistance completed. COVID swab sent to lab. rr5 04:37 Chest Single View In Process Unspecified. EDMS 05:40 Patient did not have IV access during this emergency room visit. rr5 Administered Medications: No medications were administered Outcome: 05:26 Discharge ordered by . 7 05:40 Discharged to home ambulatory, with family. rr5 05:40 Condition: stable 05:40 Discharge instructions given to patient, Instructed on discharge instructions, follow up and referral plans. medication usage, Demonstrated understanding of instructions, follow-up care, medications, Prescriptions given X 2. 05:44 Patient left the ED. rr5 Signatures: Dispatcher [employer] EDAL Luly Branham Irene, RN RN Tahir Villeda RN RN rr5 Carlos Alberto Rios MD MD [facility] Semaj Johnson tt3 Corrections: (The following items were deleted from the chart) 02:48 02:45 Chief complaint: iw
[2021-02-21 05:49] VITALS: TEMP 97.4
[2021-02-21 05:51] VITALS: BP 153/99; O2SAT 98
--- NOTE | 2021-02-21 09:10 | RAD REPORT ---
EXAM DESCRIPTION: RAD - Chest Single View - 02/21/2021 4:38 am CLINICAL HISTORY: congestion, cough COMPARISON: Portable January 14 TECHNIQUE: AP portable chest image was obtained 02/21/2021 4:38 am . FINDINGS: Lungs are clear. Heart and vasculature are normal. No measurable pleural effusion and no p neumothorax. No acute bony abnormality seen. No acute aortic finding. Portable technique and large diaz dy habitus limit the examination. IMPRESSION: No acute cardiopulmonary process. No significant change from comparison study.
== END 2021-02-21 05:44 | disposition home or self-care (01) ==
LOC: ER 02:26
DX: J06.9 Acute upper respiratory infection, unspecified (principal); Z20.822 Contact with and (suspected) exposure to COVID-19; I10 Essential (primary) hypertension; I48.91 Unspecified atrial fibrillation; Z79.82 Long term (current) use of aspirin
CPT/HCPCS: 0240U; 71045; 99283

== ENCOUNTER 2021-02-24 20:56 | Emergency (ER) | payer OTHER ==
--- OUTSIDE RECORDS SUMMARY | 2021-02-24 21:00 | XMS REPORT | Continuity of Care Document ---
:1975 Author Organization [facility] t Address [address] [place] [address] Care Team Providers Name Role Phone Unavailable [...] Sodium 8-10 [facility]: [facility] 00 [facility] Ergocalcife Ergocalcife 2018- 2020- No Na Lopez [address] [facility] ro[facility] rol 1-18 02-16 [facility]: 00:00 [facility] 00 :00 [facility] Paxil Paxil Yes Na Lopez [address] [facility] 4-03 in the [facility] - 00:00: morning [facility] 00 [facility] Humira Humira Yes Na Lopez not [facility] defined [facility] Aspirin Aspirin Yes Na Lopez not [facility] defined [facility] BusPIRone BusPIRone Yes Na Lopez [address] [facility] HCl HCl [facility][note 3] Metoprolol Metoprolol Yes Na Lopez [address] [facility] Tartrate Tartrate with food [facility] ent [facility] Procedures This patient has no known procedures. Encounters Start End Encounter Admission Attending Care Care Encounter Source Date/Time Date/Time Type Type Clinicians Facility Department ID 2021-01-04 2021-01-04 [facility] [id number] [facility] 2020-11-03 2020-11-03 [facility] [id number] [facility] 2020-08-03 2020-08-03 [facility] [id number] [facility] 2020-05-04 2020-05-04 [facility] [id number] [facility] 10[facility]10[facility] 10:10:[address] [facility] l Medicine Outpati ent Clinics 2020-05-01 2020-05-01 [facility] [id number] [facility] 09:40:00 09:40:[address] [facility] [address] [facility] Medicine Outpati ent Clinics 2020-02-19 2020-02-19 [facility] [id number] [facility] 16:06:00 16:06:00 t [facility] l Medicine Outpati [facility] Clinics 2019-12-12 2019-12-12 [facility] [id number] 15[facility]41:00 15:41:00 t [employer] [facility] Medicine Medicine Outpati ent Clinics 2019-09-16 2019-09-16 [facility] [id number] 14:40:00 14:40:00 t [employer] [facility] Medicine Outpati ent Clinics 2019-08-15 2019-08-15 [facility] [id number] 09:27:00 09:27:[address] [facility] l Medicine Outpati ent Clinics 2019-08-12 2019-08-12 [facility] [id number] [address] 09:00:00 09:00:[address] [facility] Out[facility] Clinics 2019-07-31 2019-07-31 [facility] [id number] 11:46:00 11:46:[address] [facility] [address] [facility] Outpati ent Clinics 2019-07-29 2019-07-29 [facility] [id number] [facility] 09:40:00 09:40:[address] [facility] [address] [facility] Outpati ent Clinics 2019-06-02 2019-06-02 [facility] [id number] [facility] 09:38:00 09:38:00 [facility] Outpati ent Clinics 2019-05-31 2019-05-31 [facility] [id number] 11:30:00 11:30:00 [facility] Outpati ent Clinics 2018-01-19 2018-01-19 [facility] [id number] 08:11:00 08:11:[address] [facility] [address] [facility] Outpati ent Clinics 2018-01-18 2018-01-18 [facility] [id number] 10:15:00 10:15:[address] [facility] [address] [facility] Outpati ent Clinics 2017-12-26 2017-12-26 [facility] [id number] 09[facility]30:00 09:30:[address] [facility] [address] [facility] Outpati ent Clinics Results This patient has no known results.
--- NOTE | 2021-02-25 00:10 | ER ---
Nurse's Notes [facility] Name: Dori Guardado Age: 46 yrs Sex: Female : 1975 Arrival Date: 02/24/2021 Time: 21:04 Bed 15 Private MD: Diagnosis: Pain in right knee Presentation: 02/24 21:19 Chief complaint: Patient states: Fell a week ago and landed on R leg. Was fine for ca1 several day and no pain. The pain started yesterday, pain starts on R knee, goes up to R outer thigh, and every once in a while it goes to R foot. HX of blood clots on December. Coronavirus screen: Client denies travel out of the [place] in the last 14 days. At this time, the client does not indicate any symptoms associated with coronavirus-19. Ebola Screen: Patient negative for fever greater than or equal to 101.5 degrees Fahrenheit, and additional compatible Ebola Virus Disease symptoms Patient denies exposure to infectious person. Patient denies travel to an Ebola-affected area in the 21 days before illness onset. No symptoms or risks identified at this time. Initial Sepsis Screen: Does the patient meet any 2 criteria? No. Patient's initial sepsis screen is negative. Does the patient have a suspected source of infection? No. Patient's initial sepsis screen is negative. Risk Assessment: Do you want to hurt yourself or someone else? Patient reports no desire to harm self or others. Onset of symptoms was February 24, 2021. 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 Flu vaccine is not up to date. - Social history:: Smoking status: Patient denies any tobacco usage or history of. Screenin:07 Abuse screen: Denies threats or abuse. Denies injuries from another. Nutritional jm8 screening: No deficits noted. Tuberculosis screening: No symptoms or risk factors identified. Fall Risk None identified. Assessment: 22:05 General: Appears in no apparent distress. comfortable, Behavior is calm, cooperative, jm8 appropriate for age. Pain: Complains of pain in right leg Pain currently is 4 out of 10 on a pain scale. Quality of pain is described as aching, Aggravated by increased activity, repositioning, weight bearing. Neuro: No deficits noted. Cardiovascular: No deficits noted. Respiratory: No deficits noted. Airway is patent Trachea midline. GI: No deficits noted. No signs and/or symptoms were reported involving the gastrointestinal system. : No deficits noted. No signs and/or symptoms were reported regarding the genitourinary system. EENT: No deficits noted. No signs and/or symptoms were reported regarding the EENT system. Derm: No deficits noted. No signs and/or symptoms reported regarding the dermatologic system. Musculoskeletal: Circulation, motion, and sensation intact. Reports pain in right leg since yesterday. Pain is 4 out of 10 on a pain scale. Vital Signs: 21:19 BP 151 / 98; Pulse 66; Resp 16 S; Temp 97.5; Pulse Ox 100% on R/A; Weight 122.02 kg ca1 (R); Height 5 ft. 3 in. (160.02 cm) (R); Pain 5/10; 21:19 Body Mass Index 47.65 (122.02 kg, 160.02 cm) ca1 ED Course: 21:04 Patient arrived in ED. es 21:22 Triage completed. ca1 21:23 Arm band placed on right wrist. ca1 21:55 Hardy Mahoney PA is PHCP. cp 21:55 Branden Negron MD is Attending Physician. cp 22:07 Patient has correct armband on for positive identification. Bed in low position. Call jm8 light in reach. Side rails up X2. 22:28 US Extremity Venous Unilateral Ltd In Process Unspecified. EDMS 23:07 XRAY Knee RIGHT 3 view In Process Unspecified. EDMS 06/ 00:09 Brannon Humphreys MD is Referral Physician. cp 00:18 No provider procedures requiring assistance completed. Patient did not have IV access jm8 during this emergency room visit. Administered Medications: No medications were administered Outcome: 00:09 Discharge ordered by . cp 00:18 Discharged to home ambulatory, with family. jm8 00:18 Condition: good 00:18 Discharge instructions given to patient, family, Instructed on discharge instructions, follow up and referral plans. medication usage, Demonstrated understanding of instructions, follow-up care, medications. 00:18 Patient left the ED. jm8 Signatures: Dispatcher [employer] Luly Rowe Corey, PA PA cp Acob, Cheryl RN RN ca1 Giacomo Aragon RN RN jm8 Corrections: (The following items were deleted from the chart) 02/24 21:23 21:19 Chief complaint: Patient states: Fell a week ago and landed on R leg. Was fine ca1 for several day and no pain. The pain started yesterday, pain starts on R knee, goes up to R outer thigh, and every once in a while it goes to R foot. HX of DVT on December. ca1
--- NOTE | 2021-02-25 00:10 | EDPHYS ---
Physician Documentation [facility] Name: Dori Guardado Age: 46 yrs Sex: Female : 1975 Arrival Date: 02/24/2021 Time: 21:04 Bed 15 Private MD: ED Physician Branden Negron HPI: 02/24 22:10 This 46 yrs old Black Female presents to ER via Ambulatory with complaints of Fall cp Injury. 22:10 The patient presents with pain, that is acute. cp 22:10 The complaints affect the right knee. Onset: The symptoms/episode began/occurred cp yesterday. Associated signs and symptoms: Pertinent negatives calf tenderness, numbness, tingling, weakness. Patient reports slip and fall onto right knee about 1 week ago. Denies immediate pain after fall or the next several days after fall. Patient reports pain started yesterday and reports walking more this past weekend up and down bleacher steps while attending a graduation. Patient also reports history of DVT in right leg, but denies any current treatment with a blood thinner. 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 Flu vaccine is not up to date. - Social history:: Smoking status: Patient denies any tobacco usage or history of. ROS: 22:15 Constitutional: Negative for body aches, chills, fever, poor PO intake. cp 22:15 Eyes: Negative for injury, pain, redness, and discharge. cp 22:15 Neck: Negative for pain with movement, pain at rest, stiffness. 22:15 Cardiovascular: Negative for chest pain, palpitations. 22:15 Respiratory: Negative for cough, shortness of breath, wheezing. 22:15 Abdomen/GI: Negative for abdominal pain, nausea, vomiting, and diarrhea. 22:15 MS/extremity: Positive for pain, swelling, tenderness, of the right knee, Negative for decreased range of motion, deformity, paresthesias. 22:15 All other systems are negative. Exam: 22:22 Constitutional: The patient appears in no acute distress, alert, awake, well developed, cp well nourished, obese. 22:22 Head/Face: Normocephalic, atraumatic. cp 22:22 Chest/axilla: Inspection: normal. 22:22 Cardiovascular: Rate: normal. 22:22 Respiratory: the patient does not display signs of respiratory distress, Respirations: normal, no use of accessory muscles, no retractions. 22:22 Abdomen/GI: Exam negative for discomfort, distension, guarding, Inspection: abdomen appears normal. 22:22 Back: pain, is absent, ROM is normal. 22:22 Musculoskeletal/extremity: Extremities: grossly normal except: noted in the right knee: pain, mild tenderness noted medial joint line of right knee, ROM: limited passive range of motion due to pain, in the right knee, Perfusion: the extremity is normally perfused throughout, Sensation intact. Weight bearing: able to fully bear weight. 22:22 Skin: cellulitis, is not appreciated. Vital Signs: 21:19 BP 151 / 98; Pulse 66; Resp 16 S; Temp 97.5; Pulse Ox 100% on R/A; Weight 122.02 kg ca1 (R); Height 5 ft. 3 in. (160.02 cm) (R); Pain 5/10; 21:19 Body Mass Index 47.65 (122.02 kg, 160.02 cm) ca1 MDM: 22:03 Patient medically screened. cp 22:30 Differential diagnosis: open fracture, closed fracture, contusion, tendonitis, DVT. cp 02/25 00:08 Data reviewed: vital signs, nurses notes, radiologic studies, plain films, ultrasound. cp Test interpretation: by ED physician or midlevel provider: xrays of right knee negative for fracture. Counseling: I had a detailed discussion with the patient and/or guardian regarding: the historical points, exam findings, and any diagnostic results supporting the discharge/admit diagnosis, radiology results, the need for outpatient follow up, a orthopedic surgeon, to return to the emergency department if symptoms worsen or persist or if there are any questions or concerns that arise at home. 02/24 22:04 Order name: US Extremity Venous Unilateral Ltd cp 02/24 22:04 Order name: XRAY Knee RIGHT 3 view cp 02/25 00:08 Order name: Dann wrap-joint; Complete Time: 00:11 cp Administered Medications: No medications were administered Disposition: 01:16 Co-signature as Attending Physician, Branden Negron MD. rn Disposition: 02/25/21 00:09 Discharged to Home. Impression: Pain in right knee. - Condition is Stable. - Discharge Instructions: Elastic Bandage and RICE, Knee Pain. - Medication Reconciliation Form, Thank You Letter, Antibiotic Education, Prescription Opioid Use form. - Follow up: Brannon Humphreys MD; When: 1 week; Reason: reevaluation if pain continues. - Problem is new. - Symptoms have improved. Signatures: Dispatcher [employer] EDMS Branden Negron MD MD rn Hardy Mahoney PA PA cp Kerline Omer RN RN ca1 Malcaba, Joseph, RN RN jm8 Corrections: (The following items were deleted from the chart) 00:18 00:09 02/25/2021 00:09 Discharged to Home. Impression: Pain in right knee. Condition is jm8 Stable. Forms are Medication Reconciliation Form, Thank You Letter, Antibiotic Education, Prescription Opioid Use. Follow up: Brannon Humphreys; When: 1 week; Reason: reevaluation if pain continues. Problem is new. Symptoms have improved. cp
[2021-02-25 01:20] VITALS: BP 151/98; TEMP 97.5; O2SAT 100
--- NOTE | 2021-02-25 07:56 | RAD REPORT ---
EXAM DESCRIPTION: USExtremity Venous Uni Ltd02/24/2021 10:28 pm CLINICAL HISTORY: Right leg pain COMPARISON: 2019 FINDINGS: Right common femoral, superficial femoral, popliteal and right posterior tibial veins are compressible and demonstrate augmentation. Doppler demonstrates good flow. IMPRESSION: No evidence of deep venous thrombosis involving the right lower extremity.
--- NOTE | 2021-02-25 07:58 | RAD REPORT ---
EXAM DESCRIPTION: RAD - Knee Right 3 View - 02/24/2021 11:07 pm CLINICAL HISTORY: Right knee pain status post injury FINDINGS: The knee is not fully extended which limits evaluation somewhat. No fracture or dislocation is seen. If patient continues have symptoms to suggest an occult fracture, ligamentous, tendon or meniscal inj ury then MRI would be recommended
== END 2021-02-25 00:18 | disposition home or self-care (01) ==
LOC: ER 20:56
DX: M25.561 Pain in right knee (principal); I10 Essential (primary) hypertension; Z86.718 Personal history of other venous thrombosis and embolism
CPT/HCPCS: 93971; 99283

== ENCOUNTER 2021-04-12 09:05 | Emergency (ER) | payer OTHER ==
--- OUTSIDE RECORDS SUMMARY | 2021-04-12 09:07 | XMS REPORT | Continuity of Care Document ---
:1975 Author Organization [facility] t Address [address] [place] [address] Care Team Providers Name Role Phone Unavailable [...] Sodium 8-10 [facility] 00 [facility] Ergocalcife Ergocalcife 2018- 2020- No Na Lopez [address] [facility] rol rol 1-18 02-16 [facility]00 [facility] :00 [facility] Paxil Paxil Yes Na Lopez [address] [facility] 4-03 in the [facility] 00:[facility]: morning [facility] 00 [facility] Humira Humira Yes Na Lopez not [facility] defined [facility] Aspirin Aspirin Yes Na Lopez not [facility] defined [facility] BusPIRone BusPIRone Yes Na Lopez [address] [facility] HCl HCl [facility] Metoprolol Metoprolol Yes Na Lopez [address] [facility] Tartrate Tartrate with food [facility] Procedures This patient has no known procedures. Encounters Start End Encounter Admission Attending Care Care Encounter Source Date/Time Date/Time Type Type Clinicians Facility Department ID 2021-03-15 2021-03-15 Outpatient [facility] [id number] [facility] 2021-01-04 2021-01-04 [facility]patient [facility] [id number] [facility] 2020-11-03 2020-11-03 Outpatient [facility] [id number] [facility] 2020-08-03 2020-08-03 Outpatient [facility] [id number] [facility] 2020-05-04 2020-05-04 [facility] [id number] [facility] 10:10:[facility] 10:10:[facility] [place] - [facility] Medicine l Medicine Outpati ent Clinics 2020-05-01 2020-05-01 [facility] [id number] [facility] 09:40:00 09:40:00 [place] - [facility] Medicine l Medicine Outpati ent Clinics 2020-02-19 2020-02-19 [facility] [id number] [facility] 16:06:00 16:06:00 [facility] Medicine l Medicine Outpati ent Clinics 2019-12-12 2019-12-12 [facility] [id number] [facility] 15:41:00 15:41:00 [place] - [facility] Medicine l Medicine Outpati ent Clinics 2019-09-16 2019-09-16 [facility] [id number] [facility] 14:40:00 14:40:00 t [place] s - Drive [facility] Medicine l Medicine Outpati ent Clinics 2019-08-15 2019-08-15 [facility] [id number] 09:27:00 09:27:00 t [place] - [facility] Medicine l Medicine Outpati ent Clinics 2019-08-12 2019-08-12 [facility] [id number] 09:00:00 09:00:00 t [place] [facility] Medicine Outpati ent Clinics 2019-07-31 2019-07-31 [facility] [id number] 11:46:00 11:46:00 t [place] [facility] Medicine Outpati ent Clinics 2019-07-29 2019-07-29 [facility] [id number] [address] 09:40:00 09:40:00 t [place] [facility] Medicine Outpati ent Clinics 2019-06-02 2019-06-02 [facility] [id number] [facility] 09:38:00 09:38:00 [facility] l Outpati ent Clinics 2019-05-31 2019-05-31 [facility] [id number] 11:30:00 11:30:00 [facility] Outpati ent Clinics 2018-01-19 2018-01-19 [facility] [id number] [address] 08:11:00 08:11:00 t [place] [facility] Medicine Outpati ent Clinics 2018-01-18 2018-01-18 [facility] [id number] [facility] 10:15:00 10:15:00 t [place] [facility] Medicine Outpati ent Clinics 2017-12-26 2017-12-26 [facility] [id number] 09[facility]30:00 09:30:00 t [place] [facility] Medicine Outpati ent Clinics Results This patient has no known results.
--- NOTE | 2021-04-12 11:20 | RAD REPORT ---
EXAM DESCRIPTION: CT - CTFB CLINICAL HISTORY: CONGESTION COMPARISON: No comparisons TECHNIQUE: Axial 2 mm thick images of the face were obtained with sagittal and coronal reconstructio n images. All CT scans are performed using dose optimization technique as appropriate and may include automated exposure control or mA/KV adjustment according to patient size. FINDINGS: No acute facial bone fracture is seen.The mandible is intact. The globes and orbital contents are grossly unremarkable.The paranasal sinuses and mastoids are clear . IMPRESSION: Negative for facial bone fracture.No evidence of acute or chronic sinusitis.
--- NOTE | 2021-04-12 11:41 | EDPHYS ---
Physician Documentation [facility] Name: Dori Guardado Age: 46 yrs Sex: Female : 1975 Arrival Date: 04/12/2021 Time: 09:10 Bed DX2 Private MD: Noemy Lopez ED Physician Yogesh Singh HPI: 04/12 14:04 This 46 yrs old Black Female presents to ER via Ambulatory with complaints of Headache, kdr Nose Pain. 14:05 The patient c/o pain to her nose and when she inhales through her nose, she has pain kdr that radiates into her forehead and face. She also c/o pain and swelling behind her eye and along her left nose.. Onset: The symptoms/episode began/occurred gradually, 3 day(s) ago. Severity of symptoms: At their worst the symptoms were mild in the emergency department the symptoms are unchanged. The patient has not experienced similar symptoms in the past. The patient has not recently seen a physician. Historical: - Allergies: 09:50 No Known Allergies; aa5 - Home Meds: 09:50 aspirin 81 mg Oral chew once daily [Active]; metoprolol tartrate 50 mg Oral tab 2 times aa5 per day [Active]; pantoprazole 40 mg Oral TbEC 1 tab once daily [Active]; - PMHx: 09:50 Atrial Fib; bowel obstruction; Crohn's; Hypertension; aa5 - Immunization history:: Client reports having NOT received the Covid vaccine. Flu vaccine is not up to date. - Social history:: Smoking status: Patient/guardian denies using tobacco. ROS: 14:05 Constitutional: Negative for fever, chills, and weight loss, Eyes: Negative for injury, kdr pain, redness, and discharge, Neck: Negative for injury, pain, and swelling, Cardiovascular: Negative for chest pain, palpitations, and edema, Respiratory: Negative for shortness of breath, cough, wheezing, and pleuritic chest pain. 14:05 ENT: Positive for sinus pain, right nasal congestion and swelling behind her eyes and right side of her . Exam: 14:05 Constitutional: This is a well developed, well nourished patient who is awake, alert, kdr and in no acute distress. Head/Face: Normocephalic, atraumatic. Eyes: Pupils equal round and reactive to light, extra-ocular motions intact. Lids and lashes normal. Conjunctiva and sclera are non-icteric and not injected. Cornea within normal limits. Periorbital areas with no swelling, redness, or edema. Neck: Trachea midline, no thyromegaly or masses palpated, and no cervical lymphadenopathy. Supple, full range of motion without nuchal rigidity, or vertebral point tenderness. No Meningismus. Chest/axilla: Normal chest wall appearance and motion. Nontender with no deformity. No lesions are appreciated. Cardiovascular: Regular rate and rhythm with a normal S1 and S2. No gallops, murmurs, or rubs. Normal PMI, no JVD. No pulse deficits. Respiratory: Lungs have equal breath sounds bilaterally, clear to auscultation and percussion. No rales, rhonchi or wheezes noted. No increased work of breathing, no retractions or nasal flaring. Abdomen/GI: Soft, non-tender, with normal bowel sounds. No distension or tympany. No guarding or rebound. No evidence of tenderness throughout. Back: No spinal tenderness. No costovertebral tenderness. Full range of motion. 14:05 ENT: Exam is negative for acute changes, earache, ear discharge, foreign body of the ear, ear swelling, hemotympanum, TM abnormalities, epistaxis, nasal discharge, obvious nasal foreign body, septal hematoma, sinus tenderness, enlarged tonsils, peritonsillar abscess pharyngitis, dysphagia, dental infection, exudate, abnormal voice, abnormal breath odor. Vital Signs: 09:49 BP 130 / 92; Pulse 72; Resp 18 S; Temp 98.0(O); Pulse Ox 98% on R/A; Weight 122.02 kg aa5 (R); Height 5 ft. 3 in. (160.02 cm) (R); 09:49 Body Mass Index 47.65 (122.02 kg, 160.02 cm) aa5 MDM: 11:40 Patient medically screened. kdr 14:05 Data reviewed: vital signs, nurses notes, lab test result(s), radiologic studies. kdr Counseling: I had a detailed discussion with the patient and/or guardian regarding: the historical points, exam findings, and any diagnostic results supporting the discharge/admit diagnosis, lab results, radiology results, the need for outpatient follow up. 04/12 10:46 Order name: CT Facial Bones W/O Con; Complete Time: 11:38 kdr Administered Medications: No medications were administered Disposition Summary: 04/12/21 11:40 Discharge Ordered Location: Home kdr Problem: new kdr Symptoms: have improved kdr Condition: Fair kdr Diagnosis - Atypical facial pain kdr - Nasal congestion kdr Followup: kdr - With: Noemy Lopez MD - When: 2 - 3 days - Reason: If symptoms return, Further diagnostic work-up, Recheck today's complaints, Continuance of care, Re-evaluation by your physician Discharge Instructions: - Discharge Summary Sheet kdr - Sinus Headache kdr - General Headache Without Cause, [id number] kdr Forms: - Medication Reconciliation Form kdr - Thank You Letter kdr Prescriptions: - [id number] 30-15-200 mg/5 mL Oral solution - take 10 milliliter by ORAL route every 6 hours As needed; 200 milliliter; kdr Refills: 0, Product Selection Permitted - Medrol ([place]) 4 mg Oral Tablets, Dose Pack - take 1 tablet by ORAL route as directed - follow package instructions; 1 kdr packet; Refills: 0, Product Selection Permitted Signatures: Dispatcher [employer] Yogesh Patel MD MD kdr Hansa Brito, RN RN aa5
--- NOTE | 2021-04-12 11:41 | ER ---
Nurse's Notes [facility] Name: Dori Guardado Age: 46 yrs Sex: Female : 1975 Arrival Date: 04/12/2021 Time: 09:10 Bed DX2 Private MD: Noemy Lopez Diagnosis: Atypical facial pain;Nasal congestion Presentation: 04/12 09:49 Chief complaint: Patient states: "I have a knot that came up last night on the right aa5 side of my nose and it's hurting". Coronavirus screen: At this time, the client does not indicate any symptoms associated with coronavirus-19. Ebola Screen: Patient negative for fever greater than or equal to 101.5 degrees Fahrenheit, and additional compatible Ebola Virus Disease symptoms. Initial Sepsis Screen: Does the patient meet any 2 criteria? No. Patient's initial sepsis screen is negative. Does the patient have a suspected source of infection? No. Patient's initial sepsis screen is negative. Risk Assessment: Do you want to hurt yourself or someone else? Patient reports no desire to harm self or others. Onset of symptoms was March 2021. 09:49 Method Of Arrival: Ambulatory aa5 09:49 Acuity: KASH 4 aa5 Historical: - Allergies: 09:50 No Known Allergies; aa5 - Home Meds: 09:50 aspirin 81 mg Oral chew once daily [Active]; metoprolol tartrate 50 mg Oral tab 2 times aa5 per day [Active]; pantoprazole 40 mg Oral TbEC 1 tab once daily [Active]; - PMHx: 09:50 Atrial Fib; bowel obstruction; Crohn's; Hypertension; aa5 - Immunization history:: Client reports having NOT received the Covid vaccine. Flu vaccine is not up to date. - Social history:: Smoking status: Patient/guardian denies using tobacco. Assessment: 12:05 Neuro: Level of Consciousness is awake, alert, obeys commands, Oriented to person, aa5 place, time, situation. Respiratory: Airway is patent Respiratory effort is even, unlabored, Respiratory pattern is regular, symmetrical. Derm: Skin is dry, Skin is normal, Skin temperature is warm. Vital Signs: 09:49 BP 130 / 92; Pulse 72; Resp 18 S; Temp 98.0(O); Pulse Ox 98% on R/A; Weight 122.02 kg aa5 (R); Height 5 ft. 3 in. (160.02 cm) (R); 09:49 Body Mass Index 47.65 (122.02 kg, 160.02 cm) aa5 ED Course: 09:10 Patient arrived in ED. am2 09:10 Noemy Lopez MD is Private Physician. am2 09:47 Yogesh Singh MD is Attending Physician. kdr 09:49 Arm band placed on. aa5 09:50 Triage completed. aa5 09:58 Kerline Omer, RN is Primary Nurse. ca1 11:12 CT Facial Bones W/O Con In Process Unspecified. EDMS 11:39 Noemy Lopez MD is Referral Physician. kdr 12:08 Patient did not have IV access during this emergency room visit. aa5 12:08 No provider procedures requiring assistance completed. aa5 Administered Medications: No medications were administered Outcome: 11:40 Discharge ordered by MD. kdr 12:05 Discharged to home ambulatory. aa5 12:05 Condition: good 12:05 Discharge instructions given to patient, Instructed on discharge instructions, follow up and referral plans. medication usage, Demonstrated understanding of instructions, follow-up care, medications, Prescriptions given X 2. 12:08 Patient left the ED. aa5 Signatures: Dispatcher [employer] EDVA Yogesh Singh MD MD kdr Hansa Brito, RN RN aa5 Madelin Kemp am2 Kerline Omer, RN RN ca1 Corrections: (The following items were deleted from the chart) 12:20 12:16 Patient left the ED. aa5 aa5 12:21 12:08 Neuro: Level of Consciousness is awake, alert, obeys commands, Oriented to aa5 person, place, time, situation, aa5 : 12:08 Respiratory: Airway is patent Respiratory effort is even, unlabored, Respiratory aa5 pattern is regular, symmetrical, aa5 12: 12:08 Derm: Skin is dry, Skin is normal, Skin temperature is warm aa5 aa5
[2021-04-12 12:20] VITALS: BP 130/92; TEMP 98; O2SAT 98
== END 2021-04-12 12:16 | disposition home or self-care (01) ==
LOC: ER 09:05
DX: R09.81 Nasal congestion (principal); I10 Essential (primary) hypertension; I48.91 Unspecified atrial fibrillation; Z79.82 Long term (current) use of aspirin
CPT/HCPCS: 70486; 76377; 99283

== ENCOUNTER 2021-05-09 16:28 | Emergency (ER) | payer OTHER ==
--- OUTSIDE RECORDS SUMMARY | 2021-05-09 16:30 | XMS REPORT | Continuity of Care Document ---
:1975 Author Organization [facility] t Address [address] [place] [address] Care Team Providers Name Role Phone Unavailable [...] 8-10 [facility] 00 [facility] ent [facility] Ergocalcife Ergocalcife 2018- 2020- No Na Lopez [address] [facility] rol rol 1-18 02-16 [facility]:00 [facility] 00 :00 [facility] Paxil Paxil Yes Na Lopez [address] [facility] 4-03 in the [facility] - 00:00: morning [facility] 00 [facility] Humira Humira Yes Na Lopez not [facility] defined [facility] Aspirin Aspirin Yes Na Lopez not [facility] defined [facility] BusPIRone BusPIRone Yes Na Lopez [address] [facility] HCl HCl [facility] Metoprolol Metoprolol Yes Na Lopez [address] [facility] Tartrate Tartrate with food [facility] ent [facility] Procedures This patient has no known procedures. Encounters Start End Encounter Admission Attending Care Care Encounter Source Date/Time Date/Time Type Type Clinicians Facility Department ID 2021-05-06 2021-05-06 Outpatient [facility] [id number] [facility] 2021-04-28 2021-04-28 [facility] [id number] [facility] 2021-04-27 2021-04-27 [id number] 2021-03-15 2021-03-15 [facility] [id number] [facility] 2021-01-04 2021-01-04 [facility] [id number] [facility] 2020-11-03 2020-11-03 [facility] [id number] [facility] 2020-08-03 2020-08-03 [facility] [id number] [facility] 2020-05-04 2020-05-04 [facility] [id number] [facility] 10[facility]10[facility] 10:10:[facility] [address] [facility] l Medicine Outpati ent Clinics 2020-05-01 2020-05-01 [facility] [id number] [facility] 09:40:00 09:40:00 [address] [facility] l Medicine Outpati ent Clinics 2020-02-19 2020-02-19 [facility] [id number] [facility] 16:06:00 16:06:00 t [facility] [address] [place] [facility] - Road [facility] Family [facility] l Medicine Outpati ent Clinics 2019-12-12 2019-12-12 [facility] [id number] 15:41:00 15:41:00 [place] [employer] [facility] Medicine Outpati ent Clinics 2019-09-16 2019-09-16 [facility] [id number] 14:40:00 14:40:00 t [place] [employer] [facility] Medicine Outpati ent Clinics 2019-08-15 2019-08-15 [facility] [id number] 09:27:00 09:27:00 t [place] [employer] [facility] Medicine Outpati ent Clinics 2019-08-12 2019-08-12 [facility] [id number] 09:00:00 09:00:00 t [place] [employer] [facility] Medicine Outpati ent Clinics 2019-07-31 2019-07-31 [facility] [id number] 11:46:00 11:46:00 t [place] [employer] [facility] Medicine Outpati ent Clinics 2019-07-29 2019-07-29 [facility] [id number] [address] 09:40:00 09:40:00 t [place] [employer] [facility] Medicine Outpati ent Clinics 2019-06-02 2019-06-02 [facility] [id number] [address] 09:38:00 09:38:00 [facility] l Outpati ent Clinics 2019-05-31 2019-05-31 [facility] [id number] [address] 11:30:00 11:30:00 [facility] Clinics 2018-01-19 2018-01-19 [facility] [id number] [address] 08:11:00 08:11:00 t [place] [employer] [facility] Medicine Outpati ent Clinics 2018-01-18 2018-01-18 [facility] [id number] 10:15:00 10:15:00 t [place] [employer] [facility] Medicine Outpati ent Clinics 2017-12-26 2017-12-26 [facility] [id number] 09:30:00 09:30:00 t [place] [employer] [facility] Medicine Medicine Outpati ent Clinics Results This patient has no known results.
[2021-05-09] MEDS ORDERED: ONDANSETRON 4 MG/2 ML VIAL ONE (19:16)
[2021-05-09] MEDS ORDERED: DICYCLOMINE HCL 10 MG CAP ONE (19:16)
[2021-05-09] MEDS ORDERED: NA CHLORIDE 0.9% 1,000 ML ONE (19:16)
[2021-05-09] MEDS ORDERED: FAMOTIDINE 20 MG/2 ML VIAL IV ONE (19:17)
[2021-05-09 19:44] LABS: Urine Blood Trace-intact (Negative); Urine Glucose Negative (Negative); Urine Protein Trace (Negative); Urine Specific Gravity >=1.030 (1.005-1.030); Urine pH 5.5 (5.0-7.0)
[2021-05-09 20:10] LABS: Urine Specific Gravity/Preg >1.030 (1.005-1.030)
[2021-05-09 20:12] LABS: Absolute Lymphocytes (CBC) 2.9 K/uL (0.7-4.9); Basophils % 1.3 % (0-1.3); Hematocrit 39.5 % (36.0-45.0); Lymphocytes % 34.4 % (15.3-44.8); MPV 8.2 fL (7.6-11.3); RBC Red Blood Cell Count 5.01 M/uL (3.86-4.86)
[2021-05-09 20:31] LABS: ALT/SGPT 64 U/L (12-78); AST/SGOT 33 U/L (15-37); Albumin 3.7 g/dL (3.4-5.0); Alkaline Phosphatase 82 U/L (45-117); BUN Blood Urea Nitrogen 7 mg/dL (7-18); Bicarbonate 27 mmol/L (21-32); Bilirubin Direct 0.2 mg/dL (0-0.2); Bilirubin Total 0.8 mg/dL (0.2-1.0); Glucose Level 85 mg/dL (74-106); Lipase 40 U/L (73-393); Magnesium 1.9 mg/dL (1.8-2.4); Potassium 3.5 mmol/L (3.5-5.1); Protein, Total 9.3 g/dL (6.4-8.2); Sodium Level 139 mmol/L (136-145)
--- NOTE | 2021-05-09 22:00 | RAD REPORT ---
EXAM DESCRIPTION: CT - Abdomen Pelvis Wo Contrast - 05/09/2021 9:50 pm CLINICAL HISTORY: Abdominal pain. ABD PAIN COMPARISON: <Comparisons> TECHNIQUE: CT imaging of the abdomen and pelvis was performed without contrast. Solid organ, bowel a nd vascular assessment is limited due to lack of IV and oral contrast. All CT scans are performed using dose optimization technique as appropriate and may include automated exposure control or mA/KV adjustment according to patient size. FINDINGS: The lower lung hyatt are clear. Small hiatal hernia with circumferential thickened distal esophagus. The liver, spleen, pancreas, adrenal glands and kidneys are within normal limits for a limited non-co ntrast examination. Cholecystectomy prior partial bowel resection with anastomosis in the right hemia bdomen. No bowel obstruction, free air, free fluid or abscess. The appendix is normal. The osseous structures are within normal limits. IMPRESSION: No acute intra-abdominal or pelvic findings. A limited non-contrast examination was performed as detailed.
--- NOTE | 2021-05-09 22:40 | EDPHYS ---
Physician Documentation [facility] Name: Dori Guardado Age: 46 yrs Sex: Female : 1975 Arrival Date: 05/09/2021 Time: 16:31 Bed 10 Private MD: RAFAELA Physician Vinh Gilmore HPI: 05/09 18:50 This 46 yrs old Black Female presents to ER via Ambulatory with complaints of Crohns cp Flare Up. 18:50 The patient presents with abdominal pain. cp 18:50 Onset: The symptoms/episode began/occurred 2 day(s) ago. The symptoms do not radiate. cp Associated signs and symptoms: Pertinent positives: anorexia, diarrhea, nausea, Pertinent negatives: blood in stools, chest pain, constipation, dysuria, fever, shortness of breath. 18:50 The symptoms are described as achy. cp 18:50 The patient has experienced similar episodes in the past, multiple times, Patient cp reports history of Crohn's disease. Patient reports she manages symptoms through diet and supplements and has not seen GI for approximately [address] Silva in the past. 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 - Social history:: Smoking status: Patient denies any tobacco usage or history of. ROS: 18:55 Constitutional: Negative for body aches, chills, fever, poor PO intake. cp 18:55 Eyes: Negative for injury, pain, redness, and discharge. cp 18:55 ENT: Negative for ear pain, sore throat, difficulty swallowing, difficulty handling secretions. 18:55 Cardiovascular: Negative for chest pain, palpitations. 18:55 Respiratory: Negative for cough, shortness of breath, wheezing. 18:55 Abdomen/GI: Positive for abdominal pain, nausea, diarrhea, Negative for vomiting, constipation, anorexia, hematemesis, black/tarry stool, rectal bleeding. 18:55 Neuro: Negative for altered mental status, headache, weakness. 18:55 All other systems are negative. Exam: 19:05 Constitutional: The patient appears in no acute distress, alert, awake, non-toxic, well cp developed, well nourished, obese. 19:05 Head/Face: Normocephalic, atraumatic. cp 19:05 Eyes: Periorbital structures: appear normal, Conjunctiva: normal, no exudate, no injection, Sclera: no appreciated abnormality, Lids and lashes: appear normal, bilaterally. 19:05 ENT: External ear(s): are unremarkable, Nose: is normal, Mouth: Lips: moist, Oral mucosa: moist, Posterior pharynx: Airway: no evidence of obstruction, patent. 19:05 Chest/axilla: Inspection: normal, Palpation: is normal, no crepitus, no tenderness. 19:05 Cardiovascular: Rate: normal, Rhythm: regular. 19:05 Respiratory: the patient does not display signs of respiratory distress, Respirations: normal, no use of accessory muscles, no retractions, labored breathing, is not present, Breath sounds: are clear throughout, no decreased breath sounds, no stridor, no wheezing. 19:05 Abdomen/GI: Inspection: abdomen appears normal, Bowel sounds: active, all quadrants, Palpation: soft, in all quadrants, moderate abdominal tenderness, in the right upper quadrant and left upper quadrant, rebound tenderness, is not appreciated, involuntary guarding, is not appreciated. 19:05 Back: pain, is absent, ROM is normal. Vital Signs: 17:08 BP 138 / 92; Pulse 79; Resp 16; Temp 97.9(TE); Pulse Ox 95% on R/A; Weight 119.29 kg; ss Height 5 ft. 3 in. (160.02 cm); Pain 7/10; 18:40 BP 136 / 97; Pulse 72; Resp 18; Pulse Ox 99% ; vg1 20:05 BP 135 / 92; Pulse 70; Resp 16; Pulse Ox 100% ; vg1 21:01 BP 130 / 84; Pulse 67; Resp 16; Pulse Ox 100% ; vg1 22:14 BP 140 / 94; Pulse 67; Resp 16; Temp 97.6; Pulse Ox 98% ; vg1 17:08 Body Mass Index 46.59 (119.29 kg, 160.02 cm) ss MDM: 18:46 Patient medically screened. cp 19:00 Differential diagnosis: bowel obstruction, diverticulitis, pancreatitis, Peptic Ulcer cp Disease, Perf. Duodenal Ulcer, Perf. Gastric Ulcer, Pyelonephritis, urinary tract infection. 22:39 Data reviewed: vital signs, nurses notes, lab test result(s), radiologic studies, CT cp scan, and as a result, I will discharge patient. 22:39 Special discussion: Based on the patient's Hx, exam, and Dx evaluation, there is no cp indication for emergent surgery or inpatient Tx. It is understood by the patient/guardian that if the Sx's persist or worsen they need to return immediately for re-evaluation. 22:39 Counseling: I had a detailed discussion with the patient and/or guardian regarding: the cp historical points, exam findings, and any diagnostic results supporting the discharge/admit diagnosis, lab results, radiology results, the need for outpatient follow up, a hot roll laminator, to return to the emergency department if symptoms worsen or persist or if there are any questions or concerns that arise at home. 22:39 Response to treatment: the patient's symptoms have markedly improved after treatment, cp and as a result, I will discharge patient. 05/09 18:47 Order name: Basic Metabolic Panel cp 05/09 18:47 Order name: CBC with Diff; Complete Time: 20:39 cp 05/09 20:39 Interpretation: Normal except: RBC 5.01; MCV 78.8; MCH 25.5; RDW 15.4. cp 05/09 18:47 Order name: Hepatic Function; Complete Time: 20:39 cp 05/09 18:47 Order name: Lipase; Complete Time: 20:39 cp 05/09 18:48 Order name: Magnesium; Complete Time: 20:39 cp 05/09 18:48 Order name: Basic Metabolic Panel; Complete Time: 20:39 EDMS 05/09 19:44 Order name: Urine Dipstick-Ancillary; Complete Time: 20:39 EDMS 05/09 19:48 Order name: Urine --Ancillary (enter results); Complete Time: 20:39 mw2 05/09 21:50 Order name: Abdomen ; Complete Time: 22:22 EDMS 05/09 18:47 Order name: IV Saline Lock; Complete Time: 19:53 cp 05/09 18:47 Order name: Labs collected and sent; Complete Time: 19:53 cp 05/09 18:47 Order name: Urine Dipstick-Ancillary (obtain specimen); Complete Time: 19:49 cp 05/09 18:47 Order name: Urine Test (obtain specimen); Complete Time: 19:49 cp 05/09 22:22 Order name: PO challenge cp Administered Medications: 18:59 Drug: Bentyl (dicyclomine) 20 mg Route: PO; vg1 20:40 Follow up: Response: Marked relief of symptoms vg1 19:50 Drug: NS 0.9% 1000 ml Route: IV; Rate: 1 bolus; Site: right antecubital; vg1 19:53 Drug: Zofran (Ondansetron) 4 mg Route: IVP; Site: right antecubital; vg1 20:40 Follow up: Response: Marked relief of symptoms vg1 19:55 Drug: Pepcid (famotidine) 20 mg Route: IVP; Site: right antecubital; vg1 20:40 Follow up: Response: Marked relief of symptoms vg1 22:49 CANCELLED (Physician Discretion): Phenergan (promethazine) 25 mg IVP once bb 22:49 CANCELLED (Physician Discretion): morphine 2 mg IVP once; RASS on ADMIN: Combtv4, Very bb Agttd3, Agttd2, Rstlss1, AlertClm0, Drwsy-1, Lt Sdtn-2, Mod Sdtn-3, Dp Sdtn-4, UnArsble-5 22:50 Drug: [place] (HYDROcodone-acetaminophen) 10 mg-325 mg 1 tabs {Note: RASS 0.} Route: PO; bb 22:57 Follow up: Response: Medication administered at discharge. bb 22:50 Drug: Phenergan (promethazine) 25 mg Route: PO; bb 22:57 Follow up: Response: Medication administered at discharge. bb Disposition Summary: 05/09/21 22:39 Discharge Ordered Location: Home cp Problem: an acute exacerbation cp Symptoms: have improved cp Condition: Stable cp Diagnosis - Crohn's disease, unspecified, without complications cp - Nausea cp Followup: cp - With: Slava Macias MD - When: 2 - 3 days - Reason: Worsening of condition Discharge Instructions: - Discharge Summary Sheet cp - Crohn's Disease cp - Nausea, Adult cp Forms: - Medication Reconciliation Form cp - Thank You Letter cp - Antibiotic Education cp - Prescription Opioid Use cp Prescriptions: - promethazine 25 mg Oral Tablet - take 1 tablet by ORAL route every 6 hours As needed; 20 tablet; Refills: 0, cp Product Selection Permitted - dicyclomine 20 mg Oral Tablet - take 2 tablets by ORAL route 4 times per day As needed; 40 tablet; Refills: 0, cp Product Selection Permitted Signatures: Dispatcher [employer] EDMS Precious Felton RN RN bb Zoila Riddle RN RN ss Hardy Mahoney PA PA Eleanor Madison RN RN vg1 Corrections: (The following items were deleted from the chart) 21:50 20:42 Abdomen Pelvis W Con+CT.RAD.BRZ ordered. EDMS EDMS 22:49 22:35 Phenergan (promethazine) 25 mg IVP once ordered. cp bb 22:49 22:35 morphine 2 mg IVP once; RASS on ADMIN: Combtv4, Very Agttd3, Agttd2, Rstlss1, bb AlertClm0, Drwsy-1, Lt Sdtn-2, Mod Sdtn-3, Dp Sdtn-4, UnArsble-5 ordered. cp
--- NOTE | 2021-05-09 22:40 | ER ---
Nurse's Notes [facility] Name: Dori Guardado Age: 46 yrs Sex: Female : 1975 Arrival Date: 05/09/2021 Time: 16:31 Bed 10 Private MD: Diagnosis: Crohn's disease, unspecified, without complications;Nausea Presentation: 05/09 17:08 Chief complaint: Patient states: abd pain, decreased appetite, diarrhea and thrush that ss began 2 days ago. HX of Crohns. Pt reports she had a COVID test 2 days ago which was negative and was given a mouthwash for her thrush. Coronavirus screen: Client denies travel out of the [place] in the last 14 days. Ebola Screen: Patient denies exposure to infectious person. Patient denies travel to an Ebola-affected area in the 21 days before illness onset. Initial Sepsis Screen: Does the patient meet any 2 criteria? No. Patient's initial sepsis screen is negative. Does the patient have a suspected source of infection? No. Patient's initial sepsis screen is negative. Risk Assessment: Do you want to hurt yourself or someone else? Patient reports no desire to harm self or others. Onset of symptoms was May 07, 2021. 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 - Social history:: Smoking status: Patient denies any tobacco usage or history of. Screenin:42 Abuse screen: Denies threats or abuse. Nutritional screening: No deficits noted. vg1 Tuberculosis screening: No symptoms or risk factors identified. Fall Risk No fall in past 12 months (0 pts). No secondary diagnosis (0 pts). IV access (20 points). Ambulatory Aid- None/Bed Rest/Nurse Assist (0 pts). Gait- Normal/Bed Rest/Wheelchair (0 pts) Mental Status- Oriented to own ability (0 pts). Total Jane Fall Scale indicates No Risk (0-24 pts). Assessment: 18:32 General: Appears in no apparent distress. comfortable, Behavior is calm, cooperative. vg1 Pain: Complains of pain in epigastric area Pain currently is 6 out of 10 on a pain scale. Pain began 2-3 days ago. Neuro: Level of Consciousness is awake, alert, obeys commands, Oriented to person, place, time, situation. Cardiovascular: Patient's skin is warm and dry. Respiratory: Airway is patent Respiratory effort is even, unlabored. GI: Abdomen is round obese, Bowel sounds present X 4 quads. Reports diarrhea, nausea, stated had 8 episodes of diarrhea today. : No signs and/or symptoms were reported regarding the genitourinary system. EENT: No signs and/or symptoms were reported regarding the EENT system. Derm: Skin is intact, is healthy with good turgor. Musculoskeletal: Circulation, motion, and sensation intact. 19:47 Reassessment: Patient appears in no apparent distress at this time. No changes from vg1 previously documented assessment. Patient and/or family updated on plan of care and expected duration. Pain level reassessed. Patient is alert, oriented x 3, equal unlabored respirations, skin warm/dry/pink. Precious RN at bedside to start IV with US. 21:01 Reassessment: Patient appears in no apparent distress at this time. Patient and/or vg1 family updated on plan of care and expected duration. Pain level reassessed. Patient is alert, oriented x 3, equal unlabored respirations, skin warm/dry/pink. Patient states feeling better. 22:14 Reassessment: Patient appears in no apparent distress at this time. Patient and/or vg1 family updated on plan of care and expected duration. Pain level reassessed. Patient is alert, oriented x 3, equal unlabored respirations, skin warm/dry/pink. Noted ABD pain 5/10, also states 'starting to feel a little nauseated again.' Provider notified. 22:57 Reassessment: Patient is alert, oriented x 3, equal unlabored respirations, skin bb warm/dry/pink. pt verbalized understanding of and agrees to plan of care discharge instructions given pt ambulated with steady gait to exit picked up by spouse. Vital Signs: 17:08 BP 138 / 92; Pulse 79; Resp 16; Temp 97.9(TE); Pulse Ox 95% on R/A; Weight 119.29 kg; ss Height 5 ft. 3 in. (160.02 cm); Pain 7/10; 18:40 BP 136 / 97; Pulse 72; Resp 18; Pulse Ox 99% ; vg1 20:05 BP 135 / 92; Pulse 70; Resp 16; Pulse Ox 100% ; vg1 21:01 BP 130 / 84; Pulse 67; Resp 16; Pulse Ox 100% ; vg1 22:14 BP 140 / 94; Pulse 67; Resp 16; Temp 97.6; Pulse Ox 98% ; vg1 17:08 Body Mass Index 46.59 (119.29 kg, 160.02 cm) ED Course: 16:31 Patient arrived in ED. ds1 17:10 Triage completed. ss 17:10 Arm band placed on right wrist. ss 18:32 Eleanor Dao, RN is Primary Nurse. vg1 18:35 Hardy Mahoney PA is PHCP. cp 18:35 Vinh Gilmore MD is Attending Physician. cp 18:43 Patient has correct armband on for positive identification. Placed in gown. Bed in low vg1 position. Call light in reach. Side rails up X 1. 19:53 Initial lab(s) drawn, by me, sent to lab. Inserted saline lock: 20 gauge in right bb antecubital area, using aseptic technique. Blood collected. 21:50 Abdomen In Process Unspecified. EDMS 22:00 IV discontinued, intact, bleeding controlled, No redness/swelling at site. Pressure bb dressing applied. 22:16 Report given to Precious DELGADILLO. vg1 22:37 Slava Macias MD is Referral Physician. cp 22:58 No provider procedures requiring assistance completed. bb Administered Medications: 18:59 Drug: Bentyl (dicyclomine) 20 mg Route: PO; vg1 20:40 Follow up: Response: Marked relief of symptoms vg1 19:50 Drug: NS 0.9% 1000 ml Route: IV; Rate: 1 bolus; Site: right antecubital; vg1 19:53 Drug: Zofran (Ondansetron) 4 mg Route: IVP; Site: right antecubital; vg1 20:40 Follow up: Response: Marked relief of symptoms vg1 19:55 Drug: Pepcid (famotidine) 20 mg Route: IVP; Site: right antecubital; vg1 20:40 Follow up: Response: Marked relief of symptoms vg1 22:49 CANCELLED (Physician Discretion): Phenergan (promethazine) 25 mg IVP once bb 22:49 CANCELLED (Physician Discretion): morphine 2 mg IVP once; RASS on ADMIN: Combtv4, Very bb Agttd3, Agttd2, Rstlss1, AlertClm0, Drwsy-1, Lt Sdtn-2, Mod Sdtn-3, Dp Sdtn-4, UnArsble-5 22:50 Drug: [place] (HYDROcodone-acetaminophen) 10 mg-325 mg 1 tabs {Note: RASS 0.} Route: PO; bb 22:57 Follow up: Response: Medication administered at discharge. bb 22:50 Drug: Phenergan (promethazine) 25 mg Route: PO; bb 22:57 Follow up: Response: Medication administered at discharge. bb Outcome: 22:39 Discharge ordered by MD. sabi 22:58 Discharged to home ambulatory, with family. bb 22:58 Condition: stable 22:58 Discharge instructions given to patient, Instructed on discharge instructions, follow up and referral plans. medication usage, Demonstrated understanding of instructions, follow-up care, medications, Prescriptions given X 2. 22:59 Patient left the ED. bb Signatures: Dispatcher [employer] [facility] Kandi Dietz ds1 Precious Felton, RN RN bb Zoila Riddle, RN RN Hardy Anaya PA PA cp Garcia, Victoria, RN RN vg1
[2021-05-09] MEDS ORDERED: PROMETHAZINE 25 MG TABLET ONE (23:16)
[2021-05-09] MEDS ORDERED: HYDROCODONE/APAP 10/325 TAB ONE (23:16)
[2021-05-09 23:29] VITALS: BP 140/94; TEMP 97.6; O2SAT 98
== END 2021-05-09 22:59 | disposition home or self-care (01) ==
LOC: ER 16:28
DX: K50.90 Crohn's disease, unspecified, without complications (principal); R11.0 Nausea; I10 Essential (primary) hypertension; Z79.82 Long term (current) use of aspirin
CPT/HCPCS: 85025; 80048; 36415; 83735; 81025; 80076; 81003; 83690; 74176; 96375; 96374; 99284; Q0169; J7030; J2405

== ENCOUNTER 2021-05-22 03:58 | Emergency (ER) | payer OTHER ==
--- OUTSIDE RECORDS SUMMARY | 2021-05-22 04:02 | XMS REPORT | Continuity of Care Document ---
:1975 Author Organization [facility] t Address [address] [place] [address] Care Team Providers Name Role Phone Unavailable [...] Sodium 8-10 [facility] 00 [facility] ent [facility] Ergocalcife Ergocalcife 2018- 2020- No Na Lopez [address] [facility]l 1-18 02-16 [facility]: 00:00 [facility] 00 :00 [facility] ent [facility] Paxil Paxil Yes Na Lopez [address] [facility] 4-03 in the [facility] - 00:00: morning [facility] 00 [facility] ent [facility] Humira Humira Yes Na Lopez not [facility] defined [facility] ent [facility] Aspirin Aspirin Yes Na Lopez not [facility] defined [facility] ent [facility] BusPIRone BusPIRone Yes Na Lopez [address] [facility] HCl HCl [facility] Metoprolol Metoprolol Yes Na Lopez [address] [facility] Tartrate Tartrate with food [facility] ent [facility] Procedures This patient has no known procedures. Encounters Start End Encounter Admission Attending Care Care Encounter Source Date/Time Date/Time Type Type Clinicians Facility Department ID 2021-05-06 2021-05-06 Out[id number] [facility] 2021-04-28 2021-04-28 [facility] [id number] [facility] 2021-04-27 2021-04-27 [id number] 2021-03-15 2021-03-15 [facility] [id number] [facility] 2021-01-04 2021-01-04 [facility] [id number] [facility] 2020-11-03 2020-11-03 [facility] [id number] [facility] 2020-08-03 2020-08-03 Out[facility] [id number] [facility] 2020-05-04 2020-05-04 [facility] [id number] [facility] 10:10:00 10:10:00 t [employer] s - Drive [facility] l Medicine Outpati ent Clinics 2020-05-01 2020-05-01 [facility] [id number] 09:40:00 09:40:00 t [employer] s - Drive [facility] l Medicine Outpati ent Clinics 2020-02-19 2020-02-19 [facility] [id number] [facility] 16:06:00 16:06:00 t [facility] [place] - Road [facility] l Medicine Outpati ent Clinics 2019-12-12 2019-12-12 [facility] [id number] 15:41:00 15:41:00 t [place] [employer] s - Track [facility] Medicine Outpati ent Clinics 2019-09-16 2019-09-16 [facility] [id number] 14[facility]40:00 14:40:00 t [place] [employer] s - Track [facility] Medicine Outpati ent Clinics 2019-08-15 2019-08-15 [facility] [id number] 09[facility]27:00 09:27:00 t [place] [employer] s - Track [facility] Medicine Outpati ent Clinics 2019-08-12 2019-08-12 [facility] [id number] 09:00:00 09:00:00 t [place] [employer] - Track [facility] Medicine Outpati ent Clinics 2019-07-31 2019-07-31 [facility] [id number] 11:46:00 11:46:00 t [place] [employer] [facility] Medicine Outpati ent Clinics 2019-07-29 2019-07-29 [facility] [id number] 09:40:00 09:40:00 t [place] [employer] [facility] Medicine Outpati ent Clinics 2019-06-02 2019-06-02 [facility] [id number] 09:38:00 09:38:00 t [facility] l Outpati ent Clinics 2019-05-31 2019-05-31 [facility] [id number] 11:30:00 11:30:00 [facility] Out[facility] Clinics 2018-01-19 2018-01-19 [facility] [id number] 08:11:00 08:11:00 t [place] [employer] [facility] Medicine Outpati ent Clinics 2018-01-18 2018-01-18 [facility] [id number] 10:15:00 10:15:00 t [place] [employer] [facility] Medicine Outpati ent Clinics 2017-12-26 2017-12-26 [facility] [id number] 09:30:00 09:30:00 t [place] [employer] [facility] Medicine Medicine Outpati ent Clinics Results This patient has no known results.
[2021-05-22] MEDS ORDERED: METHYLPREDNISOLONE 125 MG INJ ONE (04:46)
--- NOTE | 2021-05-22 05:45 | RAD REPORT ---
EXAM DESCRIPTION: RAD - Chest Pa And Lat (2 Views) - 05/22/2021 5:06 am CLINICAL HISTORY: COUGH Chest pain. COMPARISON: Chest Single View dated 02/21/2021; Chest Single View dated 01/14/2021; Chest Single View dated 01/09/2021; Chest Single View dated 11/02/2020; Chest Single View dated 03/12/2016 FINDINGS: The lungs are clear. The heart is upper limit of normal in size. No displaced fractures.
--- NOTE | 2021-05-22 06:06 | ER ---
Nurse's Notes [facility] Name: Dori Guardado Age: 46 yrs Sex: Female : 1975 Arrival Date: 05/22/2021 Time: 04:00 Bed 19 Private MD: Diagnosis: Cough;Pleurisy Presentation: 05/22 04:05 Chief complaint: Patient states: congestion, shortness of breath, and cough and some em chest pain, was tested last week for covid and was negative. Coronavirus screen: Vaccine status: Patient reports being unvaccinated. Ebola Screen: Patient negative for fever greater than or equal to 101.5 degrees Fahrenheit, and additional compatible Ebola Virus Disease symptoms Patient denies exposure to infectious person. Patient denies travel to an Ebola-affected area in the 21 days before illness onset. No symptoms or risks identified at this time. Resp Distress? No respiratory distress is noted at this time. Initial Sepsis Screen: Does the patient meet any 2 criteria? No. Patient's initial sepsis screen is negative. Does the patient have a suspected source of infection? No. Patient's initial sepsis screen is negative. Risk Assessment: Do you want to hurt yourself or someone else? Patient reports no desire to harm self or others. Onset of symptoms was May 22, 2021. 04:05 Method Of Arrival: Ambulatory em 04:05 Acuity: KASH 3 em Triage Assessment: 04:40 General: Appears in no apparent distress. Behavior is calm, cooperative. Pain: sh9 Complains of pain in back Pain currently is 5 out of 10 on a pain scale. Respiratory: Reports shortness of breath at rest on exertion cough that is non-productive, Airway is patent Breath sounds are clear bilaterally. 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 - Social history:: Smoking status: Patient denies any tobacco usage or history of. - Family history:: not pertinent. - Hospitalizations: : No recent hospitalization is reported. Screenin:42 Abuse screen: Denies threats or abuse. Denies injuries from another. Nutritional sh9 screening: No deficits noted. Tuberculosis screening: No symptoms or risk factors identified. Fall Risk None identified. Assessment: 04:41 General: Appears. Cardiovascular: No deficits noted. Respiratory: Reports shortness of sh9 breath cough that is non-productive, Airway is patent. 06:16 Reassessment: pt a/o vss in no acute distress at time of dispo. 9 Vital Signs: 04:05 BP 158 / 99; Pulse 76; Resp 18; Temp 97.6; Pulse Ox 97% on R/A; Weight 119.29 kg; em Height 5 ft. 3 in. (160.02 cm); Pain 8/10; 04:40 BP 138 / 80; Pulse 72; Resp 18; Pulse Ox 97% ; sh9 05:52 BP 157 / 99; Pulse 72; Resp 18; Pulse Ox 99% on R/A; sh9 06:16 BP 122 / 88; Pulse 72; Resp 18; Pulse Ox 99% on R/A; sh9 04:05 Body Mass Index 46.59 (119.29 kg, 160.02 cm) em ED Course: 04:00 Patient arrived in ED. 04:08 Triage completed. em 04:08 Arm band placed on. em 04:10 Branden Negron MD is Attending Physician. rn 04:22 Елена Chandler RN is Primary Nurse. 9 04:42 No provider procedures requiring assistance completed. 9 04:43 Patient has correct armband on for positive identification. Bed in low position. Call 9 light in reach. 05:06 XRAY Chest Pa And Lat (2 Views) In Process Unspecified. EDMS Administered Medications: 04:30 Drug: SOLU-Medrol (methylPREDNISolone sodium succinate) 125 mg Route: IM; Site: right sh9 deltoid; Outcome: 06:05 Discharge ordered by MD. rn 06:16 Patient left the ED. 9 Signatures: Dispatcher [employer] EDMS Fidel Arguelles RN RN Branden Negron MD MD rn Marsh, Wendy Елена Chandler RN RN 9 Corrections: (The following items were deleted from the chart) 04:42 04:08 PMHx: Atrial Fib; em 9 04:42 04:08 PMHx: bowel obstruction; em sh9 04:42 04:08 PMHx: Crohn's; em sh9 04:42 04:08 PMHx: Hypertension; em sh9 04:42 04:08 PSHx: Appendectomy; em sh9 04:43 04:08 PSHx: Cholecystectomy; em sh9 04:43 04:42 PMHx: Atrial Fib; sh9 sh9 04:43 04:42 PMHx: bowel obstruction; sh9 sh9 04:43 04:42 PMHx: Crohn's; sh9 sh9 04:43 04:42 PMHx: Hypertension; sh9 sh9 04:43 04:42 PSHx: Appendectomy; sh9 sh9 04:48 04:30 CORONAVIRUS+MR.LAB.BRZ drawn and sent. [facility] EDMS
--- NOTE | 2021-05-22 06:06 | EDPHYS ---
Physician Documentation [facility] Name: Dori Guardado Age: 46 yrs Sex: Female : 1975 Arrival Date: 05/22/2021 Time: 04:00 Bed 19 Private MD: ED Physician Branden Negron HPI: 05/22 04:51 This 46 yrs old Black Female presents to ER via Ambulatory with complaints of rn Congestion, pleurisy. 04:52 The patient or guardian reports cough, that is intermittent, described as mild, with no rn sputum. Onset: The symptoms/episode began/occurred 1.5 week(s) ago. Severity of symptoms: At their worst the symptoms were mild, in the emergency department the symptoms are unchanged. Modifying factors: The symptoms are alleviated by nothing, the symptoms are aggravated by nothing. Associated signs and symptoms: Pertinent positives: chest pain, rhinorrhea, Pertinent negatives: diarrhea, fever, sore throat, vomiting. The patient has not experienced similar symptoms in the past. The patient has been recently seen by a physician:. Patient states diagnosed with upper respiratory infection last week. States 2 or 3 days into illness was tested for Covid, flu, strep and all negative. PCP put on antibiotics and inhaler. Patient states tonight felt pleuritic chest pain right upper outer and right posterior chest. Pain felt like tightness to her, was very brief, resolved after taking puff from inhaler that was also prescribed by PCP. Denies history of PE in the past. No current chest pain or shortness of breath.. 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 - Social history:: Smoking status: Patient denies any tobacco usage or history of. - Family history:: not pertinent. - Hospitalizations: : No recent hospitalization is reported. ROS: 04:52 Constitutional: Negative for fever, chills, and weight loss, Eyes: Negative for injury, rn pain, redness, and discharge, ENT: Positive for congestion Neck: Negative for injury, pain, and swelling, Cardiovascular: Negative for chest pain, palpitations, and edema, Respiratory: Positive for cough negative for shortness of breath Abdomen/GI: Negative for abdominal pain, nausea, vomiting, diarrhea, and constipation, Back: Negative for injury and pain, MS/Extremity: Negative for injury and deformity, Skin: Negative for injury, rash, and discoloration, Neuro: Negative for headache, weakness, numbness, tingling, and seizure. Exam: 04:52 Constitutional: This is a well developed, well nourished patient who is awake, alert, rn and in no acute distress. Head/Face: Normocephalic, atraumatic. Eyes: Periorbital areas with no swelling, redness, or edema. ENT: No stridor Neck: No neck swelling or masses Cardiovascular: Regular rate and rhythm. No pulse deficits. Respiratory: No increased work of breathing, no retractions or nasal flaring. Abdomen/GI: Soft, non-tender Back: No spinal tenderness. No costovertebral tenderness. Full range of motion. Skin: Warm, dry MS/ Extremity: Pulses equal, no cyanosis. Neuro: Awake and alert, GCS 15, oriented to person, place, time, and situation. Cranial nerves II-XII grossly intact. Motor strength 5/5 in all extremities. Sensory grossly intact. Cerebellar exam normal. Normal gait. Vital Signs: 04:05 BP 158 / 99; Pulse 76; Resp 18; Temp 97.6; Pulse Ox 97% on R/A; Weight 119.29 kg; em Height 5 ft. 3 in. (160.02 cm); Pain 8/10; 04:40 BP 138 / 80; Pulse 72; Resp 18; Pulse Ox 97% ; sh9 05:52 BP 157 / 99; Pulse 72; Resp 18; Pulse Ox 99% on R/A; sh9 06:16 BP 122 / 88; Pulse 72; Resp 18; Pulse Ox 99% on R/A; sh9 04:05 Body Mass Index 46.59 (119.29 kg, 160.02 cm) em MDM: 04:10 Patient medically screened. rn 06:00 Differential Diagnosis: Upper Respiratory Infection Viral Syndrome Pneumonia Other rn Covid, pleurisy. Data reviewed: vital signs, nurses notes. 06:01 Data interpreted: hall monitor: rate is 72 beats/min, rhythm is normal sinus rhythm, rn regular, with no ectopy, Interpretation: normal rate, normal rhythm, Pulse oximetry: on room air is 99 %. Interpretation: normal. Test interpretation: by ED physician or midlevel provider: ECG, plain radiologic studies, Chest x-ray negative for acute pneumonia or pneumothorax. Counseling: I had a detailed discussion with the patient and/or guardian regarding: the historical points, exam findings, and any diagnostic results supporting the discharge/admit diagnosis, lab results, radiology results, the need for outpatient follow up, to return to the emergency department if symptoms worsen or persist or if there are any questions or concerns that arise at home. Response to treatment: the patient's symptoms have mildly improved after treatment, and as a result, I will discharge patient. Special discussion: I discussed with the patient/guardian in detail that at this point there is no indication for admission to the hospital. It is understood, however, that if the symptoms persist or worsen the patient needs to return immediately for re-evaluation. 05/22 05:45 Order name: SARS-COV-2 RT PCR; Complete Time: 05:54 [facility] 05/22 04:20 Order name: XRAY Chest Pa And Lat (2 Views); Complete Time: 05:54 rn Administered Medications: 04:30 Drug: SOLU-Medrol (methylPREDNISolone sodium succinate) 125 mg Route: IM; Site: right sh9 deltoid; Disposition Summary: 05/22/21 06:05 Discharge Ordered Location: Home rn Problem: new rn Symptoms: have improved rn Condition: Stable rn Diagnosis - Cough rn - Pleurisy rn Followup: rn - With: Private Physician - When: As needed - Reason: Recheck today's complaints, Re-evaluation by your physician Discharge Instructions: - Discharge Summary Sheet rn - Pleurisy rn - Viral Respiratory Infection rn - Cough, Adult rn Forms: - Medication Reconciliation Form rn - Thank You Letter rn - Antibiotic rn chronic - Prescription Opioid Use rn Prescriptions: - Prednisone 20 mg Oral Tablet - take 3 tablets by ORAL route once daily for 5 days; 15 tablet; Refills: 0, rn Product Selection Permitted Signatures: Dispatcher [employer] Fidel Chung RN RN em Nieto, Roman, MD MD rn Hicks, Skylar, RN RN sh9 Corrections: (The following items were deleted from the chart) 04:42 04:08 PMHx: Atrial Fib; em sh9 04:42 04:08 PMHx: bowel obstruction; em sh9 04:42 04:08 PMHx: Crohn's; em sh9 04:42 04:08 PMHx: Hypertension; em sh9 04:42 04:08 PSHx: Appendectomy; em sh9 04:43 04:08 PSHx: Cholecystectomy; em sh9 04:43 04:42 PMHx: Atrial Fib; sh9 sh9 04:43 04:42 PMHx: bowel obstruction; sh9 sh9 04:43 04:42 PMHx: Crohn's; sh9 sh9 04:43 04:42 PMHx: Hypertension; sh9 sh9 04:43 04:42 PSHx: Appendectomy; sh9 sh9 04:48 04:21 CORONAVIRUS+MR.LAB.BRZ ordered. EDMS EDMS
[2021-05-22 06:21] VITALS: TEMP 97.6
[2021-05-22 06:24] VITALS: O2SAT 99
[2021-05-22 06:25] VITALS: BP 122/88
== END 2021-05-22 06:16 | disposition home or self-care (01) ==
LOC: ER 03:58
DX: R09.1 Pleurisy (principal); I10 Essential (primary) hypertension; Z20.822 Contact with and (suspected) exposure to COVID-19
CPT/HCPCS: 71046; 96372; 99283; U0003; J2930

== ENCOUNTER 2021-05-24 07:22 | Emergency (ER) | payer OTHER ==
--- OUTSIDE RECORDS SUMMARY | 2021-05-24 07:24 | XMS REPORT | Continuity of Care Document ---
:[address] [facility] t Address [address] [place] [address] Care Team Providers Name Role Phone Unavailable [...] Sodium 8-10 [facility]: [facility] 00 [facility] Ergocalcife Ergocalcife 2018- 2020- No Na Lopez [address] [facility] rol rol 1-18 02-16 [facility]: 00:00 [facility] 00 :00 [facility] Paxil Paxil Yes Na Lopez [address] [facility] 4-03 in the [facility] - 00:00: morning [facility] 00 [facility] Humira Humira Yes Na Lopez not [facility] defined [facility] Aspirin Aspirin Yes Na Lopez not [facility] defined [facility] BusPIRone BusPIRone Yes Na Lopez [address] [address] HCl HCl [facility] Metoprolol Metoprolol Yes Na Lopez [address] Tartrate Tartrate with food [facility] ent [facility] Procedures This patient has no known procedures. Encounters Start End Encounter Admission Attending Care Care Encounter Source Date/Time Date/Time Type Type Clinicians Facility Department ID 2021-05-06 2021-05-06 Outpatient [facility] [id number] [facility] 2021-04-28 2021-04-28 Out[facility] [id number] [facility] 2021-04-27 2021-04-27 [facility] [id number] 2021-03-15 2021-03-15 [facility] [id number] [facility] 2021-01-04 2021-01-04 Outpatient [facility] [id number] [facility] 2020-11-03 2020-11-03 [facility] [id number] [facility] 2020-08-03 2020-08-03 Out[facility] [id number] [facility] 2020-05-04 2020-05-04 [facility] [id number] [facility] 10:10:00 10:10:00 t [place] s - Drive [facility] Family Medicine l Medicine Outpati ent Clinics 2020-05-01 2020-05-01 [facility] [id number] [address] 09:40:00 09:40:00 t [place] - [address] [facility] Family Medicine l Medicine Outpati ent Clinics 2020-02-19 2020-02-19 [facility] [id number] [address] 16:06:00 16:06:00 t [facility] [place] s - Road [facility] Family Medicine l Medicine Outpati ent Clinics 2019-12-12 2019-12-12 [facility] [id number] 15:41:00 15:41:00 t [place] [employer] [facility] Medicine Outpati ent Clinics 2019-09-16 2019-09-16 [facility] [id number] 14:40:00 14:40:00 t [place] [employer] [facility] Medicine Outpati ent Clinics 2019-08-15 2019-08-15 [facility] [id number] 09:27:00 09:27:00 t [place] [employer] [facility] Medicine Outpati ent Clinics 2019-08-12 2019-08-12 [facility] [id number] [facility] 09:00:00 09:00:00 t [place] [employer] [facility] Medicine Outpati ent Clinics 2019-07-31 2019-07-31 [facility] [id number] 11:46:00 11:46:00 t [place] [employer] [facility] Medicine Outpati ent Clinics 2019-07-29 2019-07-29 [facility] [id number] 09:40:00 09:40:00 t [place] [employer] [facility] Medicine Outpati ent Clinics 2019-06-02 2019-06-02 [facility] [id number] 09:38:00 09:38:00 t [facility] l Outpati ent Clinics 2019-05-31 2019-05-31 [facility] [id number] 11:30:00 11:30:00 [facility] Clinics 2018-01-19 2018-01-19 [facility] [id number] 08:11:00 08:11:00 t [place] [employer] [facility] Medicine Outpati ent Clinics 2018-01-18 2018-01-18 [facility] [id number] 10:15:00 10:15:00 t [place] [employer] [facility] Medicine Outpati ent Clinics 2017-12-26 2017-12-26 [facility] [id number] 09:30:00 09:30:00 t [employer] [place] [facility] [employer] [facility] Medicine Medicine Outpati ent Clinics Results This patient has no known results.
[2021-05-24] MEDS ORDERED: ASPIRIN 81 MG CHEWABLE TABLET ONE (11:37)
[2021-05-24] MEDS ORDERED: NA CHLORIDE 0.9% 1,000 ML ONE (11:37)
[2021-05-24] MEDS ORDERED: AMLODIPINE 10 MG TAB ONE (11:37)
[2021-05-24 11:39] LABS: Hematocrit 39.4 % (36.0-45.0); Lymphocytes % 25.1 % (15.3-44.8); MPV 8.8 fL (7.6-11.3); RBC Red Blood Cell Count 4.99 M/uL (3.86-4.86)
[2021-05-24 11:42] LABS: Protime INR 1.02
[2021-05-24 11:55] LABS: ALT/SGPT 74 U/L (12-78); AST/SGOT 24 U/L (15-37); Alkaline Phosphatase 69 U/L (45-117); BUN Blood Urea Nitrogen 15 mg/dL (7-18); Bicarbonate 27 mmol/L (21-32); Bilirubin Direct 0.1 mg/dL (0-0.2); Bilirubin Total 0.4 mg/dL (0.2-1.0); Glucose Level 88 mg/dL (74-106); Magnesium 2.1 mg/dL (1.8-2.4); NT PRO-BNP 261 pg/mL (<125); Potassium 3.6 mmol/L (3.5-5.1); Protein, Total 9.2 g/dL (6.4-8.2); Sodium Level 141 mmol/L (136-145); Troponin (Emerg Dept Use Only) < 0.02 ng/mL (0.0-0.045)
--- NOTE | 2021-05-24 11:57 | RAD REPORT ---
EXAM DESCRIPTION: CT - Chest For Pe Angio - 05/24/2021 11:29 am CLINICAL HISTORY: Chest pain;Dyspnea COMPARISON: Chest For Pe Angio dated 01/14/2021; Chest Pa And Lat (2 Views) dated 05/22/2021 TECHNIQUE: Dynamically enhanced 3 mm thick images of the chest were obtained during administration o f approximately 150mL Isovue 370 IV contrast. Coronal and oblique MIP reconstruction images were gene rated and reviewed. Exam utilizes a protocol to evaluate the pulmonary arterial tree. All CT scans are performed using dose optimization technique as appropriate and may include automated exposure control or mA/KV adjustment according to patient size. FINDINGS: No pulmonary emboli are identified. The aorta as imaged shows no acute or suspicious finding. No pericardial thickening or effusion. No focal mass or consolidation. Scattered areas of atelectasis are present. There is motion degradati on present. Minimal interstitial edema or infiltrate not entirely excluded. No pleural based mass or calcification. No pleural thickening identifiable. No mediastinal or hilar suspicious masses. No chest wall masses or abnormal axillary lymphadenopathy. IMPRESSION: No pulmonary emboli identified. No mass or consolidation. A minimal amount of interstitial edema or infiltrate cannot be excluded. No pleural thickening, pleural mass or pleural calcifications identified.
--- NOTE | 2021-05-24 12:12 | EDPHYS ---
Physician Documentation [facility] Name: Dori Guardado Age: 46 yrs Sex: Female : 1975 Arrival Date: 05/24/2021 Time: 07:23 Bed 16 Private MD: Noemy Lopez ED Physician Hardy Yee HPI: 05/24 10:58 This 46 yrs old Black Female presents to ER via Ambulatory with complaints of High sidney Blood Pressure, Numbness Of Face. 10:58 The patient has elevated blood pressure and discovered this at home. Onset: The sidney symptoms/episode began/occurred 2 day(s) ago. Modifying factors: The symptoms are aggravated by activity, The symptoms are alleviated by remaining still. Associated signs and symptoms: The patient has no apparent associated signs or symptoms. Severity of symptoms: At its worst the blood pressure was moderate, in the emergency department the blood pressure is unchanged. The patient has experienced similar episodes in the past, a few times. Historical: - Allergies: 07:47 No Known Allergies; hb - PMHx: 07:47 Atrial Fib; bowel obstruction; Crohn's; Hypertension; hb - PSHx: 07:47 Appendectomy; Cholecystectomy; hb - Immunization history:: Adult Immunizations unknown. - Social history:: Smoking status: unknown. ROS: 10:59 Constitutional: Negative for fever, chills, and weight loss, Eyes: Negative for injury, sidney pain, redness, and discharge, ENT: Negative for injury, pain, and discharge, Neck: Negative for injury, pain, and swelling, Respiratory: Negative for shortness of breath, cough, wheezing, and pleuritic chest pain, Abdomen/GI: Negative for abdominal pain, nausea, vomiting, diarrhea, and constipation, Back: Negative for injury and pain, : Negative for injury, bleeding, discharge, and swelling, MS/Extremity: Negative for injury and deformity, Skin: Negative for injury, rash, and discoloration, Neuro: Negative for headache, weakness, numbness, tingling, and seizure, Psych: Negative for depression, anxiety, suicide ideation, homicidal ideation, and hallucinations, Allergy/Immunology: Negative for hives, rash, and allergies, Endocrine: Negative for neck swelling, polydipsia, polyuria, polyphagia, and marked weight changes, Hematologic/Lymphatic: Negative for swollen nodes, abnormal bleeding, and unusual bruising. 10:59 Cardiovascular: Positive for chest pain, palpitations. Exam: 10:59 Constitutional: This is a well developed, well nourished patient who is awake, alert, sidney and in no acute distress. Head/Face: Normocephalic, atraumatic. Eyes: Pupils equal round and reactive to light, extra-ocular motions intact. Lids and lashes normal. Conjunctiva and sclera are non-icteric and not injected. Cornea within normal limits. Periorbital areas with no swelling, redness, or edema. ENT: Nares patent. No nasal discharge, no septal abnormalities noted. Tympanic membranes are normal and external auditory canals are clear. Oropharynx with no redness, swelling, or masses, exudates, or evidence of obstruction, uvula midline. Mucous membranes moist. Neck: Trachea midline, no thyromegaly or masses palpated, and no cervical lymphadenopathy. Supple, full range of motion without nuchal rigidity, or vertebral point tenderness. No Meningismus. Chest/axilla: Normal chest wall appearance and motion. Nontender with no deformity. No lesions are appreciated. Cardiovascular: Regular rate and rhythm with a normal S1 and S2. No gallops, murmurs, or rubs. Normal PMI, no JVD. No pulse deficits. Respiratory: Lungs have equal breath sounds bilaterally, clear to auscultation and percussion. No rales, rhonchi or wheezes noted. No increased work of breathing, no retractions or nasal flaring. Abdomen/GI: Soft, non-tender, with normal bowel sounds. No distension or tympany. No guarding or rebound. No evidence of tenderness throughout. Back: No spinal tenderness. No costovertebral tenderness. Full range of motion. Skin: Warm, dry with normal turgor. Normal color with no rashes, no lesions, and no evidence of cellulitis. MS/ Extremity: Pulses equal, no cyanosis. Neurovascular intact. Full, normal range of motion. Neuro: Awake and alert, GCS 15, oriented to person, place, time, and situation. Cranial nerves II-XII grossly intact. Motor strength 5/5 in all extremities. Sensory grossly intact. Cerebellar exam normal. Normal gait. Psych: Awake, alert, with orientation to person, place and time. Behavior, mood, and affect are within normal limits. 10:59 Musculoskeletal/extremity: DVT Exam: No signs of deep vein thrombosis. no pain, no swelling, no tenderness, negative Homans' sign noted on exam, no appreciated bluish discoloration, no erythema, no increased warmth. Vital Signs: 07:45 BP 159 / 102; Pulse 56; Resp 18; Temp 97.2; Pulse Ox 100% on R/A; Pain 5/10; hb 09:32 BP 155 / 101; Pulse 54; Resp 18; Pulse Ox 100% on R/A; Weight 119.29 kg; Height 5 ft. 3 tr6 in. (160.02 cm); 09:52 BP 160 / 90; Pulse 59; Resp 18; Pulse Ox 100% on R/A; tr6 11:54 BP 146 / 89; Pulse 54; Resp 15 S; Pulse Ox 100% on R/A; jd3 14:14 BP 142 / 91; Pulse 57; Resp 17 S; Pulse Ox 100% on R/A; jd3 14:48 BP 133 / 93; Pulse 59; Resp 18; Pulse Ox 100% on R/A; tr6 09:32 Body Mass Index 46.59 (119.29 kg, 160.02 cm) tr6 MDM: 09:36 Patient medically screened. sidney 11:00 Differential diagnosis: arrythmia, dehydration. Data reviewed: vital signs, nurses [facility], lab test result(s), EKG, radiologic studies, CT scan, plain films. Data interpreted: compliance monitor: rate is 59 beats/min, rhythm is regular, Pulse oximetry: on room air is 100 %. Test interpretation: by ED physician or midlevel provider: ECG, plain radiologic studies. 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 05/24 10:06 Order name: Glucose, Ancillary Testing; Complete Time: 12: EDAR 05/24 10:58 Order name: Basic Metabolic Panel; Complete Time: 12: sidney 05/24 10:58 Order name: CBC with Diff; Complete Time: 12: sidney 05/24 10:58 Order name: LFT's; Complete [facility]: [facility] 05/24 10:58 Order name: Magnesium; Complete Time: 12:06 [facility] 05/24 10:58 Order name: NT PRO-BNP; Complete Time: 12:06 [facility] 05/24 09:52 Order name: EKG; Complete Time: 09:52 tr6 05/24 10:58 Order name: PT-INR; Complete Time: 12:06 [facility] 05/24 10:58 Order name: Troponin (emerg Dept Use Only); Complete Time: 12:06 [facility] 05/24 10:58 Order name: XRAY Chest (1 view); Complete Time: 14:34 [facility] 05/24 10:58 Order name: CT Chest For PE Angio; Complete Time: 12:06 [facility] 05/24 10:58 Order name: Cardiac monitoring; Complete Time: 11: [facility] 05/24 10:58 Order name: EKG - Nurse/Tech; Complete Time: 11: [facility] 05/24 10:58 Order name: IV Saline Lock; Complete Time: 11:22 [facility] 05/24 10:58 Order name: Labs collected and sent; Complete Time: 11:22 [facility] 05/24 10:58 Order name: O2 Per Protocol; Complete Time: 11:02 [facility] 05/24 10:58 Order name: O2 Sat Monitoring; Complete Time: 11:02 [facility] Administered Medications: 11:52 Drug: Aspirin Chewable Tablet 324 mg {Note: given 3 due tp pt taking 1 this am.} Route: jd3 PO; 12:50 Follow up: Response: No adverse reaction jd3 11:54 Drug: NS 0.9% 1000 ml Route: IV; Rate: 1 bolus; Site: left antecubital; jd3 12:54 Follow up: Response: No adverse reaction; IV Status: Completed infusion; IV Intake: jd3 1000ml 14:48 Not Given (Patient Refused): Norvasc (amlodipine) 10 mg PO once tr6 Disposition Summary: 05/24/21 12:11 Discharge Ordered Location: Home sidney Problem: new sidney Symptoms: have improved sidney Condition: Stable sidney Diagnosis - Palpitations sidney - Essential (primary) hypertension sidney - Bradycardia, unspecified sidney Followup: sidney - With: - When: 2 - 3 days - Reason: Recheck today's complaints, Continuance of care, Re-evaluation by your physician Followup: sidney - With: - When: 2 - 3 days - Reason: Recheck today's complaints, Continuance of care, Re-evaluation by your physician Discharge Instructions: - Discharge Summary Sheet sidney - Palpitations sidney - Aspirin and Your Heart sidney - Palpitations, [id number] sidney Forms: - Medication Reconciliation Form sidney - Thank You Letter sidney - Antibiotic Education sidney - Prescription Opioid Use sidney Prescriptions: - Norvasc 5 mg Oral Tablet - take 1 tablet by ORAL route once daily; 20 tablet; Refills: 0, Product sidney Selection Permitted Signatures: Dispatcher [employer] EDHardy Rai MD MD cha Baxter, Heather RN RN Jose R Lovell RN RN doed3 Maci Whitmore RN tr6
--- NOTE | 2021-05-24 12:12 | ER ---
Nurse's Notes [facility] Name: Dori Guardado Age: 46 yrs Sex: Female : 1975 Arrival Date: 05/24/2021 Time: 07:23 Bed 16 Private MD: Noemy Lopez Diagnosis: Palpitations;Essential (primary) hypertension;Bradycardia, unspecified Presentation: 05/24 07:45 Chief complaint: Palpitations and insomnia after starting prednisone 2 days ago for hb pleurisy. Coronavirus screen: At this time, the client does not indicate any symptoms associated with coronavirus-19. Ebola Screen: No symptoms or risks identified at this time. Risk Assessment: Do you want to hurt yourself or someone else? Patient reports no desire to harm self or others. Onset of symptoms was May 24, 2021. 07:45 Method Of Arrival: Ambulatory hb 07:45 Acuity: KASH 3 hb 09:34 Initial Sepsis Screen: Does the patient meet any 2 criteria? No. Patient's initial tr6 sepsis screen is negative. Does the patient have a suspected source of infection? No. Patient's initial sepsis screen is negative. Historical: - Allergies: 07:47 No Known Allergies; hb - PMHx: 07:47 Atrial Fib; bowel obstruction; Crohn's; Hypertension; hb - PSHx: 07:47 Appendectomy; Cholecystectomy; hb - Immunization history:: Adult Immunizations unknown. - Social history:: Smoking status: unknown. Screenin:33 Abuse screen: Denies threats or abuse. Denies injuries from another. Nutritional tr6 screening: No deficits noted. Tuberculosis screening: No symptoms or risk factors identified. Fall Risk None identified. Assessment: 10:06 General: Appears in no apparent distress. comfortable, Behavior is calm, cooperative, jd3 appropriate for age. Pain: Complains of pain in chest Quality of pain is described as pressure. Neuro: Level of Consciousness is awake, alert, obeys commands, Oriented to person, place, time, situation. Cardiovascular: Capillary refill < 3 seconds Patient's skin is warm and dry. Rhythm is regular. Respiratory: Airway is patent Respiratory effort is even, unlabored, Respiratory pattern is regular, symmetrical, Denies cough, shortness of breath. GI: No signs and/or symptoms were reported involving the gastrointestinal system. : No signs and/or symptoms were reported regarding the genitourinary system. EENT: No signs and/or symptoms were reported regarding the EENT system. Derm: Skin is intact, Skin is dry, Skin is normal, Skin temperature is warm. Musculoskeletal: Circulation, motion, and sensation intact. Range of motion: intact in all extremities. 11:22 Reassessment: Patient appears in no apparent distress at this time. No changes from jd3 previously documented assessment. Patient and/or family updated on plan of care and expected duration. Pain level reassessed. Patient is alert, oriented x 3, equal unlabored respirations, skin warm/dry/pink. Vital Signs: 07:45 BP 159 / 102; Pulse 56; Resp 18; Temp 97.2; Pulse Ox 100% on R/A; Pain 5/10; hb 09:32 BP 155 / 101; Pulse 54; Resp 18; Pulse Ox 100% on R/A; Weight 119.29 kg; Height 5 ft. 3 tr6 in. (160.02 cm); 09:52 BP 160 / 90; Pulse 59; Resp 18; Pulse Ox 100% on R/A; tr6 11:54 BP 146 / 89; Pulse 54; Resp 15 S; Pulse Ox 100% on R/A; jd3 14:14 BP 142 / 91; Pulse 57; Resp 17 S; Pulse Ox 100% on R/A; jd3 14:48 BP 133 / 93; Pulse 59; Resp 18; Pulse Ox 100% on R/A; tr6 09:32 Body Mass Index 46.59 (119.29 kg, 160.02 cm) tr6 ED Course: 07:23 Patient arrived in ED. am2 07:24 Noemy Lopez MD is Private Physician. am2 07:47 Triage completed. hb 07:47 Arm band placed on. hb 09:33 No apparent distress. Resting quietly. Awaiting ED provider evaluation. tr6 09:33 Patient has correct armband on for positive identification. Bed in low position. Call tr6 light in reach. Side rails up X 1. environmental monitoring specialist on. Pulse ox on. NIBP on. Door closed. Noise minimized. Visitors limited. Lights dimmed. Moved to private room. Warm blanket given. 09:33 No provider procedures requiring assistance completed. tr6 09:36 Hardy Yee MD is Attending Physician. sidney 09:50 Jose R Lovell, RN is Primary Nurse. jd3 11:23 Inserted saline lock: 22 gauge in left antecubital area, using aseptic technique. Blood jd3 collected. 11:29 CT Chest For PE Angio In Process Unspecified. EDMS 12:03 XRAY Chest (1 view) In Process Unspecified. EDMS 12:11 Noemy Lopez MD is Referral Physician. [facility] 12:11 Matthew Lofton MD is Referral Physician. sidney 14:48 IV discontinued, intact, bleeding controlled, No redness/swelling at site. Pressure tr6 dressing applied. Administered Medications: 11:52 Drug: Aspirin Chewable Tablet 324 mg {Note: given 3 due tp pt taking 1 this am.} Route: jd3 PO; 12:50 Follow up: Response: No adverse reaction jd3 11:54 Drug: NS 0.9% 1000 ml Route: IV; Rate: 1 bolus; Site: left antecubital; jd3 12:54 Follow up: Response: No adverse reaction; IV Status: Completed infusion; IV Intake: jd3 1000ml 14:48 Not Given (Patient Refused): Norvasc (amlodipine) 10 mg PO once tr6 Intake: 12:54 IV: 1000ml; Total: 1000ml. jd3 Outcome: 12:11 Discharge ordered by . [facility] 14:48 Discharged to home ambulatory, pt refused wheelchair at this time tr6 14:48 Condition: improved 14:48 Discharge instructions given to patient, Instructed on discharge instructions, follow up and referral plans. no drinking with medication, medication usage, safety practices, Demonstrated understanding of instructions, follow-up care, medications, Prescriptions given X 1. 15:14 Patient left the ED. tr6 Signatures: Dispatcher [employer] EDWA Hardy Yee MD MD cha Baxter, Heather, RN RN Madelin Kemp am2 Jose R Lovell RN RN Maci Wells RN RN tr6
--- NOTE | 2021-05-24 12:19 | RAD REPORT ---
EXAM DESCRIPTION: RAD - Chest Single View - 05/24/2021 12:04 pm CLINICAL HISTORY: CHEST PAIN COMPARISON: May 22 TECHNIQUE: AP portable chest image was obtained 05/24/2021 12:04 pm . FINDINGS: Lung volumes are low. No dense consolidation or mass. Cardiac silhouette is prominent. Thi s is in part due to shallow inspiration, body habitus affects and portable imaging. No acute vascular engorgement. No measurable pleural effusion and no pneumothorax. No acute bony abnormality seen. No acute aortic findings suspected. IMPRESSION: Heart, vasculature and lung markings are all accentuated by shallow inspiration and port able technique. No focal mass or consolidation.
[2021-05-24 15:23] VITALS: TEMP 97.2; O2SAT 100
[2021-05-24 15:30] VITALS: BP 133/93
--- NOTE | 2021-05-25 16:16 | EKG ---
Test Date: 2021-05-24 Test Time: 09:46:29 Respiratory Care Technician: TTR MEASUREMENT RESULTS: Intervals: Rate: 52 MO: 162 QRSD: 84 QT: 418 QTc: 388 Andrew: P: 35 MO: 162 QRS: 14 T: 1 INTERPRETIVE STATEMENTS: Sinus bradycardia Minimal voltage criteria for LVH, may be normal variant Borderline ECG Compared to ECG 02/14/2021 23:46:31 Left ventricular hypertrophy now present Sinus rhythm no longer present Electronically Signed On 05-25-21 16:12:02 CDT by Matthew Lofton
== END 2021-05-24 15:14 | disposition home or self-care (01) ==
LOC: ER 07:22
DX: I10 Essential (primary) hypertension (principal); R00.1 Bradycardia, unspecified; I48.91 Unspecified atrial fibrillation
CPT/HCPCS: 93005; 85025; 80048; 36415; 83735; 85610; 82947; 80076; 84484; 83880; 71275; 71045; 96360; 99284; Q9967; J7030

== ENCOUNTER 2021-06-02 14:55 | Emergency (ER) | payer OTHER ==
--- OUTSIDE RECORDS SUMMARY | 2021-06-02 14:58 | XMS REPORT | Continuity of Care Document ---
:1975 Author Organization [facility] t Address [address] [place] [address] Care Team Providers Name Role Phone Unavailable [...] Sodium 8-10 [facility] 00 [facility] Ergocalcife Ergocalcife 2018- 2020- No Na Lopez [address] [facility] rol rol 1-18 02-16 [facility]00 [facility] :00 [facility] Paxil Paxil Yes Na Lopez [address] [facility] 4-03 in the [facility] - 00:00: morning [facility] 00 [facility] Humira Humira Yes Na Lopez not [facility] defined [facility] Aspirin Aspirin Yes Na Lopez not [facility] defined [facility] BusPIRone BusPIRone Yes Na Lopez [address] [facility] HCl HCl [facility] Metoprolol Metoprolol Yes Na Lopez [address] [facility] Tartrate Tartrate with food [facility] Procedures This patient has no known procedures. Encounters Start End Encounter Admission Attending Care Care Encounter Source Date/Time Date/Time Type Type Clinicians Facility Department ID 2021-05-06 2021-05-06 [facility]patient [facility] [id number] [facility] 2021-04-28 2021-04-28 [facility] [id number] [facility] 2021-04-27 2021-04-27 [facility] [id number] [facility] 2021-03-15 2021-03-15 [id number] 2021-01-04 2021-01-04 [facility] [id number] [facility] 2020-11-03 2020-11-03 [facility] [id number] 2020-08-03 2020-08-03 [facility] [id number] [facility] 2020-05-04 2020-05-04 [facility] [id number] [facility] 10[facility]10:00 10:10:[address] [facility] Out[facility] Clin[facility] 2020-05-01 2020-05-01 [facility] [id number] [facility] 09:40:00 09:40:00 [facility] [facility] 2020-02-19 2020-02-19 [facility] [id number] [facility] 16:06:00 16:06:[address] [facility] [address] [place] s - Road [facility] Out[facility] Clinics 2019-12-12 2019-12-12 [facility] [id number] 15:41:00 15:41:00 t [employer] [facility] [employer] [facility] Medicine Outpati ent Clinics 2019-09-16 2019-09-16 [facility] [id number] 14:40:00 14:40:00 t [employer] [facility] [employer] [facility] Medicine Outpati ent Clinics 2019-08-15 2019-08-15 [facility] [id number] 09:27:00 09:27:00 t [employer] [facility] Medicine Outpati ent Clinics 2019-08-12 2019-08-12 [facility] [id number] 09:00:00 09:00:00 t [employer] [employer] [facility] Medicine Outpati ent Clinics 2019-07-31 2019-07-31 [facility] [id number] 11:46:00 11:46:00 t [employer]ir[employer] [facility] Medicine Outpati ent Clinics 2019-07-29 2019-07-29 [facility] [id number] [address] 09:40:00 09:40:00 t [employer] [facility] Medicine Outpati ent Clinics 2019-06-02 2019-06-02 [facility] [id number] [address] 09:38:00 09:38:00 [facility] Outpati ent Clinics 2019-05-31 2019-05-31 [facility] [id number] [address] 11:30:00 11:30:00 [facility] 2018-01-19 2018-01-19 [facility] [id number] 08:11:00 08:11:00 t [employer] Xirrus [facility] Medicine Outpati ent Clinics 2018-01-18 2018-01-18 [facility] [id number] [facility] 10:15:00 10:15:00 t [employer]irrus [facility] Medicine Outpati ent Clinics 2017-12-26 2017-12-26 [facility] [id number] [facility] 09:30:00 09:30:00 t [employer] [place] [facility] Xirrus [facility] Medicine Medicine Outpati ent Clinics Results This patient has no known results.
--- NOTE | 2021-06-02 16:14 | EDPHYS ---
Physician Documentation [facility] Name: Dori Guardado Age: 46 yrs Sex: Female : 1975 Arrival Date: 06/02/2021 Time: 14:55 Bed 15 Private MD: ED Physician Emerita Lynch HPI: 06/02 16:05 This 46 yrs old Black Female presents to ER via Ambulatory with complaints of Chest sp3 Pain. 16:05 46-year-old female with history of Crohn's disease on prednisone presents with repeat sp3 episode of chronic abdominal pain. Patient was seen at [place] emergency department approximately 4 days ago where she received a negative CT scan and laboratory values. She has had multiple visits to this emergency department continues to have chronic pain. I explained to her that another CT scan is not indicated and we would be able to only ascertain lab work and administer IV fluids and pain medications as needed. She is said that she does not want any narcotic pain medications. At that point we had a long discussion about finding the proper specialist for her symptoms and not utilizing the emergency department as much for the same work-up with no ultimate change in treatment or diagnosis. She agreed and stated that she wants to leave the emergency department at this time and will keep her 06/16 appointment with GI. She states that she will return if her symptoms worsen.. Historical: - Allergies: 15:02 No Known Allergies; tw2 - Home Meds: 15:02 amlodipine 5 mg tab 1 tab once daily [Active]; dicyclomine 10 mg Oral cap 1 cap 3 times tw2 per day [Active]; Pepcid 20 mg Oral tab 1 tab every 6 hours [Active]; - PMHx: 15:02 Atrial Fib; bowel obstruction; Crohn's; Hypertension; tw2 - PSHx: 15:02 Appendectomy; Cholecystectomy; tw2 - Immunization history:: Adult Immunizations Client reports having NOT received the Covid vaccine. - Social history:: Smoking status: Patient denies any tobacco usage or history of. ROS: 16:08 Constitutional: Negative for fever, chills, and weight loss, Cardiovascular: Negative sp3 for chest pain, palpitations, and edema, Respiratory: Negative for shortness of breath, cough, wheezing, and pleuritic chest pain, Skin: Negative for injury, rash, and discoloration, Neuro: Negative for headache, weakness, numbness, tingling, and seizure. 16:08 All other systems are negative. Exam: 16:08 Constitutional: This is a well developed, well nourished patient who is awake, alert, sp3 and in no acute distress. Cardiovascular: Regular rate and rhythm with a normal S1 and S2. No gallops, murmurs, or rubs. Normal PMI, no JVD. No pulse deficits. Respiratory: Lungs have equal breath sounds bilaterally, clear to auscultation and percussion. No rales, rhonchi or wheezes noted. No increased work of breathing, no retractions or nasal flaring. Neuro: Awake and alert, GCS 15, oriented to person, place, time, and situation. Cranial nerves II-XII grossly intact. Motor strength 5/5 in all extremities. Sensory grossly intact. Cerebellar exam normal. Normal gait. Psych: Awake, alert, with orientation to person, place and time. Behavior, mood, and affect are within normal limits. 16:08 Abdomen/GI: Exam negative for Palpation: soft, Mild diffuse tenderness epigastrically with no peritoneal signs.. Vital Signs: 15:03 BP 132 / 88; Pulse 72; Resp 18; Temp 97.5(TE); Pulse Ox 98% on R/A; Weight 119.29 kg tw2 (R); Height 5 ft. 3 in. (160.02 cm) (R); Pain 7/10; 15:03 Body Mass Index 46.59 (119.29 kg, 160.02 cm) tw2 MDM: 15:56 Patient medically screened. sp3 16:13 Data reviewed: vital signs, nurses notes. ED course: Had extensive conversation with sp3 patient on pros and cons of continued work-up and multiple ER visits. 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 I offered to still give her IV fluids and pain medication for her symptoms. She likes to leave AMA at this time. I told her she may return at anytime if she changes her mind on symptoms. Vital signs are stable on discharge.. Administered Medications: 16:04 CANCELLED (Patient Refused): Dilaudid (HYDROmorphone) 1 mg IVP once; RASS on ADMIN: sp3 Combtv4, Very Agttd3, Agttd2, Rstlss1, AlertClm0, Drwsy-1, Lt Sdtn-2, Mod Sdtn-3, Dp Sdtn-4, UnArsble-5 16:04 CANCELLED (Patient Refused): Zofran (Ondansetron) 4 mg IVP once; over 2 minutes sp3 16:04 CANCELLED (Patient Refused): NS 0.9% 1000 ml IV at 1 bolus Per protocol; 1000 mL bolus sp3 Disposition Summary: 06/02/21 16:14 Left Against Medical Advice Location: Home sp3 Problem: chronic sp3 Symptoms: are unchanged sp3 Condition: Stable sp3 Diagnosis - Abdominal pain, unspecified sp3 Followup: sp3 - With: Private Physician - When: As needed - Reason: Re-evaluation by your physician Discharge Instructions: - Discharge Summary Sheet sp3 - Abdominal Pain, Adult sp3 Signatures: Dispatcher [employer] EDMS Vielka Tsai RN RN tw2 Emerita Lynch MD MD sp3 Corrections: (The following items were deleted from the chart) 16:04 15:55 Urine Dipstick-Ancillary ordered. sp3 sp3 16:04 15:55 Dilaudid (HYDROmorphone) 1 mg IVP once; RASS on ADMIN: Combtv4, Very Agttd3, sp3 Agttd2, Rstlss1, AlertClm0, Drwsy-1, Lt Sdtn-2, Mod Sdtn-3, Dp Sdtn-4, UnArsble-5 ordered. sp3 16:04 15:55 Zofran (Ondansetron) 4 mg IVP once; over 2 minutes ordered. sp3 sp3 16:04 15:55 NS 0.9% 1000 ml IV at 1 bolus Per protocol; 1000 mL bolus ordered. sp3 sp3 16:05 15:55 IV Saline Lock ordered. sp3 sp3 16:05 15:55 Labs collected and sent ordered. sp3 sp3 16:05 15:55 Urine Test ordered. sp3 sp3 16:17 15:56 Abdomen Pelvis W Con+CT.RAD.BRZ ordered. EDMS EDMS
--- NOTE | 2021-06-02 16:14 | ER ---
Nurse's Notes [facility] Name: Dori Guardado Age: 46 yrs Sex: Female : 1975 Arrival Date: 06/02/2021 Time: 14:55 Bed 15 Private MD: Diagnosis: Abdominal pain, unspecified Presentation: 06/02 15:00 Chief complaint: Patient states: today i got chest pain and my RIGHT arm feels tight. i tw2 feel like my stomach is spasming and i felt like i had regurgitation and like the pain was going into my back. it feels like a squeezing in my chest. dana felt lightheaded and antsy. 15:00 Method Of Arrival: Ambulatory tw2 15:03 Chief complaint: Patient states: i had a CAT scan Monday with Dr. Yee at [facility] and tw2 they said it was a hernia. I feel like it might be that hernia. Coronavirus screen: At this time, the client does not indicate any symptoms associated with coronavirus-19. Ebola Screen: Patient denies travel to an Ebola-affected area in the 21 days before illness onset. Initial Sepsis Screen: Does the patient meet any 2 criteria? No. Patient's initial sepsis screen is negative. Does the patient have a suspected source of infection? No. Patient's initial sepsis screen is negative. Risk Assessment: Do you want to hurt yourself or someone else? Patient reports no desire to harm self or others. Onset of symptoms was June 02, 2021. 15:03 Acuity: KASH 3 tw2 Triage Assessment: 15:04 General: Appears in no apparent distress. obese, Behavior is calm, cooperative, tw2 appropriate for age. Pain: Complains of pain in abdomen. Cardiovascular: Reports chest pain. GI: Reports "squeezing pain". GI: Reports diarrhea, "and when i wipe there is blood". Historical: - Allergies: 15:02 No Known Allergies; tw2 - Home Meds: 15:02 amlodipine 5 mg tab 1 tab once daily [Active]; dicyclomine 10 mg Oral cap 1 cap 3 times tw2 per day [Active]; Pepcid 20 mg Oral tab 1 tab every 6 hours [Active]; - PMHx: 15:02 Atrial Fib; bowel obstruction; Crohn's; Hypertension; tw2 - PSHx: 15:02 Appendectomy; Cholecystectomy; tw2 - Immunization history:: Adult Immunizations Client reports having NOT received the Covid vaccine. - Social history:: Smoking status: Patient denies any tobacco usage or history of. Assessment: 16:26 Reassessment: PT SIGNED OUT AMA. ADVISED TO REMAIN BY STAFF AND NURSING, BUT REFUSED. bp PT COUNSELED TO RETURN IF S/S RETURN OR WORSEN. Vital Signs: 15:03 BP 132 / 88; Pulse 72; Resp 18; Temp 97.5(TE); Pulse Ox 98% on R/A; Weight 119.29 kg tw2 (R); Height 5 ft. 3 in. (160.02 cm) (R); Pain 7/10; 15:03 Body Mass Index 46.59 (119.29 kg, 160.02 cm) tw2 ED Course: 14:55 Patient arrived in ED. as 15:04 Triage completed. tw2 15:04 Arm band placed on. tw2 15:38 Emerita Lynch MD is Attending Physician. sp3 16:27 Staci Tran, LEONA is Primary Nurse. iw Administered Medications: 16:04 CANCELLED (Patient Refused): Dilaudid (HYDROmorphone) 1 mg IVP once; RASS on ADMIN: sp3 Combtv4, Very Agttd3, Agttd2, Rstlss1, AlertClm0, Drwsy-1, Lt Sdtn-2, Mod Sdtn-3, Dp Sdtn-4, UnArsble-5 16:04 CANCELLED (Patient Refused): Zofran (Ondansetron) 4 mg IVP once; over 2 minutes sp3 16:04 CANCELLED (Patient Refused): NS 0.9% 1000 ml IV at 1 bolus Per protocol; 1000 mL bolus sp3 Outcome: 16:27 AMA AMA form signed iw 16:27 Condition: unchanged 16:27 Patient left the ED. iw Signatures: Jazmín Dejesus Irene, LEONA DELGADILLO iw Vielka Tsai RN RN tw2 Srinivas Curran, RN RN bp Emerita Lynch MD MD sp3
[2021-06-02 16:31] VITALS: BP 132/88; TEMP 97.5; O2SAT 98
== END 2021-06-02 16:27 | disposition left against medical advice (07) ==
LOC: ER 14:55
DX: R10.9 Unspecified abdominal pain (principal); K50.90 Crohn's disease, unspecified, without complications; I10 Essential (primary) hypertension; Z53.29 Procedure and treatment not carried out because of patient's decision for other reasons
CPT/HCPCS: 93005; 99281

== ENCOUNTER 2021-08-02 20:50 | Emergency (ER) | payer OTHER ==
--- NOTE | 2021-08-02 21:38 | ER ---
Nurse's Notes [facility] Name: Dori Guardado Age: 46 yrs Sex: Female : 1975 Arrival Date: 08/02/2021 Time: 21:10 Bed 16 Private MD: Diagnosis: Other specified mononeuropathies of right lower limb-sequelae of blood draw Presentation: 08/02 21:15 Chief complaint: Patient states: " I got blood drawn in my right foot on Monday, I felt dc2 a shock go through my body and today , it hurts so bad I can't walk on it". 21:15 Coronavirus screen: Vaccine status: Patient reports being unvaccinated. Unable to dc2 receive covid vaccine due to issues with her Chron's disease Client denies travel out of the [place] in the last 14 days. At this time, the client does not indicate any symptoms associated with coronavirus-19. Ebola Screen: Patient negative for fever greater than or equal to 101.5 degrees Fahrenheit, and additional compatible Ebola Virus Disease symptoms Patient denies exposure to infectious person. Patient denies travel to an Ebola-affected area in the 21 days before illness onset. No symptoms or risks identified at this time. Initial Sepsis Screen: Does the patient meet any 2 criteria? No. Patient's initial sepsis screen is negative. Does the patient have a suspected source of infection? No. Patient's initial sepsis screen is negative. Risk Assessment: Do you want to hurt yourself or someone else? Patient reports no desire to harm self or others. Onset of symptoms was July 30, 2021 at 13:00. 21:15 Method Of Arrival: Ambulatory dc2 21:15 Acuity: KASH 4 dc2 ICT SUPPORT TECHNICIANS: 21:15 LMP N/A - Post-menopause dc2 Historical: - Home Meds: 21:44 amlodipine 5 mg tab 1 tab once daily [Active]; dicyclomine 10 mg Oral cap 1 cap 3 times dc2 per day [Active]; Pepcid 20 mg Oral tab 1 tab every 6 hours [Active]; amoxicillin 500 mg Oral cap 1 cap every 12 hours [Active]; clarithromycin 500 mg Oral Tb24 2 tabs once daily [Active]; - PMHx: 21:44 Atrial Fib; bowel obstruction; Crohn's; Hypertension; dc2 - PSHx: 21:44 Appendectomy; Cholecystectomy; dc2 - Immunization history:: Adult Immunizations up to date, Client reports having NOT received the Covid vaccine. - Family history:: not pertinent. - Social history:: Smoking status: Patient/guardian denies using alcohol, street drugs, IV drugs, tobacco products. - Hospitalizations: : No recent hospitalization is reported. Screenin:15 Abuse screen: Denies threats or abuse. Denies injuries from another. Nutritional dc2 screening: No deficits noted. Tuberculosis screening: No symptoms or risk factors identified. Never had TB. Fall Risk None identified. No fall in past 12 months (0 pts). No secondary diagnosis (0 pts). No IV (0 pts). Ambulatory Aid- None/Bed Rest/Nurse Assist (0 pts). Gait- Normal/Bed Rest/Wheelchair (0 pts) Mental Status- Oriented to own ability (0 pts). Total Jane Fall Scale indicates No Risk (0-24 pts). Assessment: 21:15 General: Appears in no apparent distress. Behavior is calm, cooperative. Pain: dc2 Complains of pain in Top of right foot. 21:15 Neuro: No deficits noted. Level of Consciousness is awake, alert, obeys commands, dc2 Oriented to person, place, time, situation. Respiratory: No deficits noted. Denies cough, shortness of breath. Derm: Skin is intact, is healthy with good turgor, Skin temperature is warm Reports pain that is 6 out of 10 on a pain scale. Musculoskeletal: Capillary refill < 3 seconds, Range of motion: intact in all extremities, Reports pain in top of foot on right since [place] when getting blood drawn from foot.. Pain is 6 out of 10 on a pain scale. Vital Signs: 21:15 BP 156 / 103; Pulse 73; Resp 18; Temp 98.0; Pulse Ox 100% ; Weight 126.55 kg; Height 5 dc2 ft. 3 in. (160.02 cm); Pain 6/10; 21:15 BP 156 / 103; Pulse 73; Resp 18; Temp 98.0; Pulse Ox 100% ; Pain 6/10; dc2 21:15 Body Mass Index 49.42 (126.55 kg, 160.02 cm) dc2 ED Course: 21:10 Patient arrived in ED. ag3 21:12 Branden Negron MD is Attending Physician. rn 21:15 Arm band placed on right wrist. dc2 21:15 Patient has correct armband on for positive identification. Bed in low position. Call dc2 light in reach. Side rails up X 1. Adult w/ patient. 21:25 Marce Driver, RN is Primary Nurse. dc2 21:31 Triage completed. dc2 21:43 No provider procedures requiring assistance completed. dc2 21:50 Patient did not have IV access during this emergency room visit. dc2 Administered Medications: No medications were administered Outcome: 21:38 Discharge ordered by . rn 21:50 Discharged to home ambulatory. dc2 21:50 Condition: stable 21:50 Discharge instructions given to patient, Instructed on discharge instructions, Demonstrated understanding of instructions, follow-up care. 21:50 Patient left the ED. dc2 Signatures: Branden Negron MD MD rn Gomez, Alice ag3 Marce Driver RN RN dc2
--- NOTE | 2021-08-02 21:39 | EDPHYS ---
Physician Documentation [facility] Name: Dori Guardado Age: 46 yrs Sex: Female : 1975 Arrival Date: 08/02/2021 Time: 21:10 Bed 16 Private MD: ED Physician Branden Negron HPI: 08/02 21:24 This 46 yrs old Black Female presents to ER via Unassigned with complaints of Foot Pain.rn 21:24 The patient presents with pain, that is acute. The complaints affect the right foot. rn Context: The problem was sustained at an unknown location, resulted from Blood draw, the patient can fully bear weight, the patient is able to ambulate. Onset: The symptoms/episode began/occurred yesterday. Modifying factors: The symptoms are alleviated by elevation of extremity, the symptoms are aggravated by weight bearing, wearing shoes. Associated signs and symptoms: Pertinent positives: tingling Pain, Pertinent negatives: fever, rash, swelling, warmth, weakness. Severity of symptoms: At their worst the symptoms were mild, in the emergency department the symptoms are unchanged. The patient has not experienced similar symptoms in the past. The patient has been recently seen by a physician:. Had blood draw from right foot due to being difficult stick on Monday. [place] a little pain on Monday and Monday, spent a lot of time on her feet Monday and Monday with increased pain of the right foot. Denies any fever. Denies any color changes. No pain of calf or proximal leg. Reports tingling and intermittent shooting pains that go to the toes. No trauma. CYCLE LIAISON: 21:15 LMP N/A - Post-menopause dc2 Historical: - Home Meds: 21:44 amlodipine 5 mg tab 1 tab once daily [Active]; dicyclomine 10 mg Oral cap 1 cap 3 times dc2 per day [Active]; Pepcid 20 mg Oral tab 1 tab every 6 hours [Active]; amoxicillin 500 mg Oral cap 1 cap every 12 hours [Active]; clarithromycin 500 mg Oral Tb24 2 tabs once daily [Active]; - PMHx: 21:44 Atrial Fib; bowel obstruction; Crohn's; Hypertension; dc2 - PSHx: 21:44 Appendectomy; Cholecystectomy; dc2 - Immunization history:: Adult Immunizations up to date, Client reports having NOT received the Covid vaccine. - Family history:: not pertinent. - Social history:: Smoking status: Patient/guardian denies using alcohol, street drugs, IV drugs, tobacco products. - Hospitalizations: : No recent hospitalization is reported. ROS: 21:24 Constitutional: Negative for fever, chills, and weight loss, Cardiovascular: Negative rn for chest pain, palpitations, and edema, Respiratory: Negative for shortness of breath, cough, wheezing, and pleuritic chest pain, MS/Extremity: Negative for injury and deformity, positive for pain and tingling of right foot Skin: Negative for injury, rash, and discoloration, Neuro: Negative for weakness Exam: 21:24 Constitutional: This is a well developed, well nourished patient who is awake, alert, rn and in no acute distress. Cardiovascular: Regular rate and rhythm. No pulse deficits. Respiratory: No increased work of breathing, no retractions or nasal flaring. Skin: Warm, dry with normal turgor. Normal color with no rashes, no lesions, and no evidence of cellulitis. No evidence of phlebitis. No warmth or fluctuance MS/ Extremity: Pulses equal, no cyanosis. Neurovascular intact. Full, normal range of motion. Equal circumference. No bony tenderness or deformity Neuro: Awake and alert, GCS 15 Vital Signs: 21:15 BP 156 / 103; Pulse 73; Resp 18; Temp 98.0; Pulse Ox 100% ; Weight 126.55 kg; Height 5 dc2 ft. 3 in. (160.02 cm); Pain 6/10; 21:15 BP 156 / 103; Pulse 73; Resp 18; Temp 98.0; Pulse Ox 100% ; Pain 6/10; dc2 21:15 Body Mass Index 49.42 (126.55 kg, 160.02 cm) dc2 MDM: 21:12 Patient medically screened. rn 21:36 Differential diagnosis: phlebitis, nerve injury, neuropathic pain. Data reviewed: vital rn signs, nurses notes, and as a result, I will discharge patient. Counseling: I had a detailed discussion with the patient and/or guardian regarding: the historical points, exam findings, and any diagnostic results supporting the discharge/admit diagnosis, the need for outpatient follow up, to return to the emergency department if symptoms worsen or persist or if there are any questions or concerns that arise at home. Special discussion: I discussed with the patient/guardian in detail that at this point there is no indication for admission to the hospital. It is understood, however, that if the symptoms persist or worsen the patient needs to return immediately for re-evaluation. ED course: No signs of infection, no signs of DVT, no sign of phlebitis. Most likely local nerve irritation from blood draw from foot given tingling and shooting pains but otherwise normal exam and no bony injury. Will DC home with instructions for anti-inflammatories, warm compresses, elevation of affected extremity and PCP follow-up. Administered Medications: No medications were administered Disposition Summary: 08/02/21 21:38 Discharge Ordered Location: Home rn Problem: new rn Symptoms: are unchanged rn Condition: Stable rn Diagnosis - Other specified mononeuropathies of right lower limb - sequelae of blood draw rn Followup: rn - With: Private Physician - When: As needed - Reason: Recheck today's complaints, Re-evaluation by your physician Discharge Instructions: - Discharge Summary Sheet rn - Neuropathic Pain rn Forms: - Medication Reconciliation Form rn - Thank You Letter rn - Antibiotic rn orthopaedics - Prescription Opioid Use rn Signatures: Branden Negron MD MD rn Marce Driver RN RN dc2
[2021-08-02 22:26] VITALS: BP 156/103; TEMP 98; O2SAT 100
--- OUTSIDE RECORDS SUMMARY | 2021-08-07 17:33 | XMS REPORT | Continuity of Care Document ---
:1975 Author Organization [facility] t Address [address] [place] [address] Care Team Providers Name Role Phone Morena Lopez Primary Care Physician hSarona Nunez Attending Clinician Unavailable Monie Tran DO Attending Clinician Morena Lopez Admitting Clinician Unavailable Payers Payer Name Policy Type Policy Number Effective Date Expiration Date S ource Problems Condition Condition Condition Status Onset Resolution Last Treating Co mments Source Name Details Category Date Date Treatment Clinician Date No known No known Disease Unive rs active active ity of problems problems [facility] Allergies, Adverse Reactions, Alerts Allergy Allergy Status Severity Reaction(s) Onset Inactive Treating Comm ents Source Name Type Date Date Clinician No Known DA Active U 2020-09 [facility] Allergie 0-28 [facility] 00:00: d 00 [facility] No Known DA Active U 2020-09 [facility] Allergie 0-28 [place] [facility] 00:00: d 00 [facility] NO KNOWN Drug Active Univers ALLERGIE Class ity of S [facility] Social History Social Habit Start Date Stop Date Quantity Comments Source Sex Assigned At [birth year] [facility] 00:00:00 00:00:00 Medical Branch Smoking Status Start Date Stop Date Source Unknown if ever smoked [facility] Medications Ordered Filled Start Stop Current Ordering Indication Dosage Frequency Signature Comments Components Source Medication Medication Date Date Medication? Clinician (SIG) Name Name No known 2020-09 No Univers medications 0-09 ity of 19:54: [address] Pantoprazol Pantoprazol Yes Na Lopez [address] [facility] Sodium e Sodium 8-10 [facility] Ergocalcife Ergocalcife 2018-09- No Na Lopez [address] rol rol 1-18 11-10 [facility] - 00:00: 00:00 Memoria 00 :00 [facility] Paxil Paxil Yes Na Lopez [address] [facility] [facility] 4-03 in the [facility] - 00:00: morning Memoria 00 [facility] Humira Humira Yes Na Lopez not [facility] Aspirin Aspirin Yes Na Lopez not [facility] defined [facility] BusPIRone BusPIRone Yes Na Lopez [address] HCl HCl [facility] Metoprolol Metoprolol Yes Na Lopez [address] Tartrate Tartrate with food [facility] Vital Signs Vital Name Observation Time Observation Value Comments Source Systolic blood 2021-07-04 00:50:00 180 mm[Hg] Univer sity [facility] Diastolic blood 2021-07-04 00:50:00 110 mm[Hg] Unive [facility] Heart rate 2021-07-04 00:50:00 79 /min [facility] Body temperature 2021-07-04 00:50:00 36.67 Gem [facility] Respiratory rate 2021-07-04 00:50:00 18 /min [facility] Body weight 2021-07-04 00:50:00 121.564 kg [facility] Oxygen saturation in 2021-07-04 00:50:00 99 /min [facility] blood by [facility] Pulse oximetry Branch Procedures Procedure Date / Time Performed Performing Clinician Marta e XR CHEST 1 VW 2021-07-04 01:14:37 Raissa Tran [facility] NOTICE OF PRIVACY 2021-07-04 00:45:31 Doctor Unassigned, No Univ [facility] PRACTICES Name [facility] CONSENT/REFUSAL FOR 2021-07-04 00:45:10 Doctor Unassigned, [facility] AND Name [facility] TREATMENT Encounters Start End Encounter Admission Attending Care Care Encounter Source Date/Time Date/Time Type Type Clinicians Facility Department ID 2021-08-02 2021-08-02 [address] [facility] [id number] 2021-07-22 2021-07-22 Outpatient Vanesa Nunez HCAPM RADI LA5 [id number] [facility] 08:00:00 08:00:00 [id number] [facility] 2021-07-22 2021-07-22 Outpatient EL Vanesa Nunez HCAPM RADI LA0 [id number] [facility] 07:26:00 07:26:00 63 [facility] 2021-07-03 2021-07-03 [facility] [id number] Univers 19:47:00 21:16:00 Raissa Alvarez [id number] [facility] [id number] [facility] [id number] [address] 2021-07-03 2021-07-03 Emergency X [facility] ERT [id number] Univers 19:47:00 19:47:00 ity [facility] 2021-06-07 2021-06-[address] [facility] [id number] [facility] 2021-05-06 2021-05-06 Outpatient [facility] [id number] [facility] 2021-04-28 2021-04-28 Outpatient [facility] [id number] [facility] 2021-04-27 2021-04-27 Outpatient STLMLC [facility] [id number] [facility] 2021-03-15 2021-03-15 [facility] [id number] [facility] 2021-01-04 2021-01-04 [facility] [id number] [facility] 2020-11-03 2020-11-03 Outpatient STLMLC [facility] [id number] [facility] 2020-08-03 2020-08-[address] [id number] [facility] 2020-05-04 2020-05-04 [facility] [id number] 10:10:00 10:10:00 t Stella Utan s - Proxible [facility] Medicine l Medicine Outpati ent Clinics 2020-05-01 2020-05-01 [facility] [id number] 09:40:00 09:40:00 t iLink s - Proxible [facility] Medicine l Medicine Outpati ent Clinics 2020-02-19 2020-02-19 [facility] [id number] 16:06:00 16:06:[address] [facility] [address] [facility] Medicine l Medicine Outpati ent Clinics 2019-12-12 2019-12-12 [facility] [id number] 15:41:00 15:41:00 t iLink s - Drive [facility] Medicine l Medicine Outpati ent Clinics 2019-09-16 2019-09-16 [facility] [id number] 14:40:00 14:40:00 t iLink s - Drive [facility] Medicine l Medicine Outpati ent Clinics 2019-08-15 2019-08-15 [facility] [id number] 09:27:00 09:27:00 t Stella Utan s - Drive [facility] Medicine Medicine Outpati ent Clinics 2019-08-12 2019-08-12 [facility] [id number] 09:00:00 09:00:00 t [employer] [facility] Medicine Outpati ent Clinics 2019-07-31 2019-07-31 [facility] [id number] 11:46:00 11:46:00 t [employer] [facility] Medicine Outpati ent Clinics 2019-07-29 2019-07-29 [facility] [id number] 09:40:00 09:40:00 t [employer] [facility] Medicine Outpati ent Clinics 2019-06-02 2019-06-02 [facility] [id number] 09:38:00 09:38:00 [facility] 2019-05-31 2019-05-31 [facility] [id number] 11:30:00 11:30:00 t [facility] 2018-01-19 2018-01-19 [facility] [id number] 08:11:00 08:11:00 t [employer] [facility] Medicine Outpati ent Clinics 2018-01-18 2018-01-18 [facility] [id number] 10:15:00 10:15:00 t [employer] [facility] Medicine Outpati ent Clinics 2017-12-26 2017-12-26 [facility] [id number] 09:30:00 09:30:00 t [employer] [facility] Medicine Outpati ent Clinics Results Test Description Test Time Test Comments Results Result Sour e Comments - CT ABD PELVIS 2021-07-22 W/CONT 09:50:00 [facility] 1975 Sex: F Name: SHE GUARDADO [facility] : 1975 Age/S: 46 / F [address] Unit #: [id number] Loc: [place] [address] Phys: Vanesa Nunez MD Acct: [id number] Dis Date: Status: REG CLI PHONE #: [phone] Exam Date: 07/22/2021917 FAX #: Reason: CROHNS DISEASE, UNSPECIFIED, WITHOUT COMPLICATI EXAMS: CPT: [id number] CT ABD PELVIS W/CONT 85188 HISTORY: CROHN'S DISEASE, UNSPECIFIED, WITHOUT COMPLICATIONS TECHNIQUE: Helical imaging of the abdomen and pelvis is performed with intravenous contrast. Approximately 100 mL of intravenous contrast was administered. No oral contrast is administered. Sagittal and coronal reconstructions reviewed. CT DLP dose: 974 mGy-cm. Iterative dose reduction technique was utilized. Location: T 18 Comparison study: None FINDINGS: The images of the lung bases demonstrate no masses, effusions or infiltrates. Heart size is normal. There is no pericardial effusion. The liver is homogeneous, free of focal masses and dilated intrahepatic ducts. The gallbladder is absent. The spleen is normal in size and contour. The pancreas is morphologically normal. No mass, pancreatic duct dilatation or peripancreatic edema is visible. The adrenal glands are normal in size and contour. Neither cystic nor solid renal masses are visible. No hydronephrosis is seen. No renal calculi or perinephric stranding. The urinary bladder is unremarkable. Stomach and duodenum appear unremarkable. The visualized small bowel is unremarkable without evidence of bowel thickening or obstruction. There is evidence of right colonic surgery with a suture line in the right upper abdomen. There is mild thickening of the transverse colon and splenic flexure. There is mild thickening of the distal descending colon and upper sigmoid. There is no colic inflammation. No retroperitoneal lymphadenopathy is present. The aorta is of normal caliber. The IVC is patent. The portal vein is patent. No evidence of ascites. Abdominal wall is intact. No significant bone lesions. PAGE 1 Signed Report (CONTINUED) Name: SHE GUARDADO : 1975 Age/S: 46 / F [address] Unit #: [id number] Loc: [place] [address] Phys: Vanesa Nunez MD Acct: [id number] Dis Date: Status: REG CLI PHONE #: [phone] Exam Date: 07/22/2021917 FAX #: Reason: CROHNS DISEASE, UNSPECIFIED, WITHOUT COMPLICATI EXAMS: CPT: [id number] CT ABD PELVIS W/CONT 73089 <Continued> IMPRESSION: 1. There is mild diffuse thickening of the transverse colon and splenic flexure as well as the distal descending colon and upper sigmoid. There is no pericolonic inflammation. Findings may represent infectious or inflammatory colitis. 2. Status post cholecystectomy. 3. Evidence of right colonic surgery. at 0950 Reported and signed by: Sudhir Calix M.D. CC: Vanesa Nunez MD; Noemy Lopez DO Technologist:Mukul Ryan, RT(R) CTDI: DLP: Trnscb Date/Time: 07/22/2021 (0950) [email or web address] Orig Print D/T: S: 07/22/2021 (8253) PAGE 2 Signed Report ISTAT-BUN 2021-07-22 08:27:00 Test Item Value Reference Range Interpretation Comme nts ISTAT-BUN (test code = BUNP) 8 mg/dL 8-26 N BEDSIDE [id number] 08:27:00 Test Item Value Reference Range Interpretation Comments BEDSIDE CREATININE (test code = 0.6 mg/dL 0.6-1.3 N CREATBED)
== END 2021-08-02 21:50 | disposition home or self-care (01) ==
LOC: ER 20:50
DX: G57.81 Other specified mononeuropathies of right lower limb (principal); Y84.7 Blood-sampling as the cause of abnormal reaction of the patient, or of later complication, without mention of misadventure at the time of the procedure; I10 Essential (primary) hypertension; I48.91 Unspecified atrial fibrillation
CPT/HCPCS: 99281

== ENCOUNTER 2021-11-17 00:59 | Emergency (ER) | payer OTHER ==
--- OUTSIDE RECORDS SUMMARY | 2021-11-17 01:03 | XMS REPORT | Continuity of Care Document ---
:1975 Author Organization [facility] t Address [address] [place] [address] Care Team Providers Name Role Phone Morena Lopez Primary Care Physician Edgar Lopez Attending Clinician Unavailable Sharona Nunez Attending Clinician Unavailable Monie Tran DO Attending Clinician Morena Lopez Admitting Clinician Unavailable Payers Payer Name Policy Type Policy Number Effective Date Expiration Date S ource Problems Condition Condition Condition Status Onset Resolution Last Treating Co mments Source Name Details Category Date Date Treatment Clinician Date No known No known Disease Unive rs active active ity of problems problems [facility] Allergies, Adverse Reactions, Alerts Allergy Allergy Status Severity Reaction(s) Onset Inactive Treating Comm ents Source Name Type Date Date Clinician No Known DA Active U 2020-09 [facility] Allergie 0-28 [facility] 00:00: d 00 [facility] No Known DA Active U 2020-09 [facility] Allergie 0-28 [place] [facility] 00:00: d 00 [facility] NO KNOWN Drug Active Univers ALLERGIE Class ity of S [facility] Social History Social Habit Start Date Stop Date Quantity Comments Source Sex Assigned At [birth year] [facility] [place] [facility] 00:00:00 00:00:00 Medical Branch Smoking Status Start Date Stop Date Source Unknown if ever smoked [facility] Medications Ordered Filled Start Stop Current Ordering Indication Dosage Frequency Signature Comments Components Source Medication Medication Date Date Medication? Clinician (SIG) Name Name No known 2020-09 No Univers medications 0-09 ity of 19:54: [address] Pantoprazol Pantoprazol Yes Na Lopez [address] [facility] [facility] Sodium e Sodium 8-10 [facility] Ergocalcife Ergocalcife 2018-09- No Na Lopez [address] rol rol 1-18 0216 [facility]:00 [facility] 00 :[facility] Paxil Paxil Yes Na Lopez [address] [facility] 4-03 in the [facility] - 00:00: morning [facility]oria 00 [facility] Humira Humira Yes Na Lopez not [facility] defined [facility] Aspirin Aspirin Yes Na Lopez not [facility] defined [facility] BusPIRone BusPIRone Yes Na Lopez [address] HCl HCl [facility] Metoprolol Metoprolol Yes Na Lopez [address] Tartrate Tartrate with food Chelsey [facility] Vital Signs Vital Name Observation Time Observation Value Comments Source Systolic blood 2021-07-04 00:50:00 180 mm[Hg] Univer sity of pressure [facility] Diastolic blood 2021-07-04 00:50:00 110 mm[Hg] [facility] 2021-07-04 00:50:00 79 /min [facility] Body temperature 2021-07-04 00:50:00 36.67 Gem [facility] Respiratory rate 2021-07-04 00:50:00 18 /min [facility] Body weight 2021-07-04 00:50:00 121.564 kg [facility] Oxygen saturation in 2021-07-04 00:50:00 99 /min [facility] blood by [facility] Pulse oximetry Branch Procedures Procedure Date / Time Performed Performing Clinician Marta e XR CHEST 1 VW 2021-07-04 01:14:37 Raissa Tran [facility] NOTICE OF PRIVACY 2021-07-04 00:45:31 Doctor Unassigned, No [facility] CONSENT/REFUSAL FOR 2021-07-04 00:45:10 Doctor Unassigned, No [facility] DIAG[facility]IS AND Name Medical Branch TREATMENT Encounters Start End Encounter Admission Attending Care Care Encounter Source Date/Time Date/Time Type Type Clinicians Facility Department ID 2021-10-20 Outpatient Lopez, Na STLMLC STLMLC [id number] [facility] [facility] 14:09:55 [id number] [facility] 2021-10-20 Outpatient Lopez, Na STLMLC STLMLC [id number] [facility] 13:47:22 [id number] [facility] 2021-10-20 Outpatient Lopez, Na STLMLC STLMLC [id number] [facility] 12:29:04 [id number] [facility] 2021-10-20 Outpatient Lopez, Na STLMLC STLMLC [id number] 12:03:44 [id number] [facility] 2021-10-20 Outpatient Lopez, Na STLMLC STLMLC [id number] 12:03:05 [id number] [facility] 2021-10-20 Outpatient Lopez, Na STLMLC STLMLC [id number] 11:43:49 [id number] [facility] 2021-10-20 Outpatient Lopez, Na STLMLC STLMLC [id number] 11:35:56 [id number] [facility] 2021-10-20 Outpatient Lopez, Na STLMLC STLMLC [id number] 11:18:09 [id number] [facility] 2021-10-20 Outpatient Lopez, Na STLMLC STLMLC [id number] 11:04:54 [id number] [facility] 2021-10-20 Outpatient Lopez, Na STLMLC STLMLC [id number] [facility] 11:04:25 [id number] [facility] 2021-11-11 2021-11-11 ambulatory STLMLC [facility] [id number] [facility] 2021-09-28 2021-09-28 ambulatory STLMLC [facility] [id number] [facility] 2021-08-27 2021-08-27 ambulatory STLMLC [facility] [id number] [facility] 2021-08-04 2021-08-04 ambulatory STLMLC [facility] [id number] [facility] 2021-08-02 2021-08-02 ambulatory [facility]LMLC [facility] [id number] [facility] 2021-07-22 2021-07-22 Outpatient Vanesa Nunez HCAPM RADI LA5 [id number] [facility] 08:00:00 08:00:00 [id number] [facility] 2021-07-22 2021-07-22 Outpatient Vanesa Nunez HCAPM RADI LA0 [id number] [facility] 07:26:00 07:26:00 63 [facility] 2021-07-03 2021-07-03 Emergency Marc, [facility] [id number] Univers 19:47:00 21:16:00 Raissa Alvarez [id number] [facility] [id number] [facility] [id number] [place] [id number] Branch 2021-07-03 2021-07-03 Emergency X [facility] ERT [id number] Univers 19:47:00 19:47:00 ity [facility] 2021-06-07 2021-06-07 Outpatient STLMLC [facility] [id number] [facility] 2021-05-06 2021-05-06 Outpatient STLMLC [facility] [id number] [facility] 2021-04-28 2021-04-28 Outpatient [facility]C [facility] [id number] [facility] 2021-04-27 2021-04-27 [facility] [id number] [facility] 2021-03-15 2021-03-15 [facility] [id number] [facility] 2021-01-04 2021-01-04 [facility] [id number] [facility] 2020-11-03 2020-11-03 [facility] [id number] [facility] 2020-08-03 2020-08-03 Out[facility] [id number] [facility] 2020-05-04 2020-05-04 [facility] [id number] 10:10:00 10:10:00 t [employer] s - Drive [facility] Family Medicine l Medicine Outpati ent Clinics 2020-05-01 2020-05-01 [facility] [id number] 09:40:00 09:40:00 t [employer] s - Drive [facility] Family Medicine l Medicine Outpati ent Clinics 2020-02-19 2020-02-19 [facility] [id number] 16:06:00 16:06:00 t [facility] [employer] s - Road [facility] Family Medicine l Medicine Outpati ent Clinics 2019-12-12 2019-12-12 [facility] [id number] 15:41:00 15:41:00 t [employer] s - Drive [facility] Family Medicine l Medicine Outpati ent Clinics 2019-09-16 2019-09-16 [facility] [id number] 14:40:00 14:40:00 t [place] [employer] s - Drive [facility] Medicine l Medicine Outpati ent Clinics 2019-08-15 2019-08-15 [facility] [id number] 09:27:00 09:27:00 t [place] [employer] s - Drive [facility] Medicine l Medicine Outpati ent Clinics 2019-08-12 2019-08-12 [facility] [id number] 09:00:00 09:00:00 t [place] [employer] - Drive [facility] l Medicine Outpati ent Clinics 2019-07-31 2019-07-31 [facility] [id number] 11:46:00 11:46:00 [place] [employer] s - Drive [facility] l Medicine Outpati ent Clinics 2019-07-29 2019-07-29 [facility] [id number] 09:40:00 09:40:00 t [place] [employer] s - Drive [facility] Medicine l Medicine Outpati ent Clinics 2019-06-02 2019-06-02 [facility] [id number] 09:38:00 09:38:00 t [facility] Care Clinic [facility] Clinic l Outpati ent Clinics 2019-05-31 2019-05-31 [facility] [id number] 11:30:00 11:30:00 t [facility] - Care [facility] Clinic l Outpati ent Clinics 2018-01-19 2018-01-19 [facility] [id number] 08:11:00 08:11:00 t [place] [place] [employer] - Drive [facility] Medicine l Medicine Outpati ent Clinics 2018-01-18 2018-01-18 [facility] [id number] 10:15:00 10:15:00 t [place] [employer] s - Drive [facility] Medicine l Medicine Outpati ent Clinics 2017-12-26 2017-12-26 [facility] [id number] 09:30:00 09:30:00 t [place] [employer] [facility] Medicine Outpati ent Clinics Results Test Description Test Time Test Comments Results Result [facility] kandice Comments - CT ABD PELVIS 2021-07-22 W/CONT 09:50:00 [facility] 1975 Sex: F Name: SHE FITZGERALD [facility] : 1975 Age/S: 46 / F [address] Unit #: [id number] Loc: [place] [address] Phys: Vanesa Nunez MD Acct: [id number] Dis Date: Status: REG CLI PHONE #: [phone] Exam Date: 07/22/2021917 FAX #: Reason: CROHNS DISEASE, UNSPECIFIED, WITHOUT COMPLICATI EXAMS: CPT: [id number] CT ABD PELVIS W/CONT 30554 HISTORY: CROHN'S DISEASE, UNSPECIFIED, WITHOUT COMPLICATIONS TECHNIQUE: [...] PAGE 1 Signed Report (CONTINUED) Name: SHE FITZGERALD : 1975 Age/S: 46 / F [address] Unit #: [id number] Loc: [place] [address] Phys: Vanesa Nunez MD Acct: [id number] Dis Date: Status: REG CLI PHONE #: [phone] Exam Date: 07/22/2021917 FAX #: Reason: CROHNS DISEASE, UNSPECIFIED, WITHOUT COMPLICATI EXAMS: CPT: [id number] CT ABD PELVIS W/CONT 62312 <Continued> IMPRESSION: 1. There is mild diffuse [...] RT(R) CTDI: DLP: Trnscb Date/Time: 07/22/2021 (0950) [email or web address] Orig Print D/T: S: 07/22/2021 (6953) PAGE 2 Signed Report ISTAT-BUN 2021-07-22 08:27:00 Test Item Value Reference Range Interpretation Comme nts ISTAT-BUN (test code = BUNP) 8 mg/dL 8-26 N BEDSIDE [id number] 08:27:00 Test Item Value Reference Range Interpretation Comments BEDSIDE CREATININE (test code = 0.6 mg/dL 0.6-1.3 N CREATBED)
[2021-11-17] MEDS ORDERED: MAGNES/ALUMIN/SIMET 30ML UCUP ONE (02:22)
[2021-11-17] MEDS ORDERED: LIDOCAINE VISCOUS 2% SOLN 15 ML UDC ONE ×2 (02:23→02:26)
[2021-11-17 02:38] LABS: ALT/SGPT 24 U/L (12-78); AST/SGOT 12 U/L (15-37); Albumin 3.3 g/dL (3.4-5.0); Alkaline Phosphatase 74 U/L (45-117); BUN Blood Urea Nitrogen 16 mg/dL (7-18); Bicarbonate 29 mmol/L (21-32); Bilirubin Total 0.2 mg/dL (0.2-1.0); Glucose Level 97 mg/dL (74-106); Lipase 61 U/L (73-393); Potassium 3.8 mmol/L (3.5-5.1); Protein, Total 8.5 g/dL (6.4-8.2); Sodium Level 140 mmol/L (136-145)
[2021-11-17 02:40] LABS: Bilirubin Direct < 0.1 mg/dL (0-0.2)
[2021-11-17 02:44] LABS: Lymphocytes % 42.7 % (15.3-44.8); MPV 8.4 fL (7.6-11.3); RBC Red Blood Cell Count 4.65 M/uL (3.86-4.86)
[2021-11-17 02:45] LABS: Urine Blood Trace-intact (Negative); Urine Glucose Negative (Negative); Urine Protein Negative (Negative); Urine Specific Gravity >=1.030 (1.005-1.030)
--- NOTE | 2021-11-17 04:44 | EDPHYS ---
Physician Documentation [facility] Name: Dori Guardado Age: 46 yrs Sex: Female : 1975 Arrival Date: 11/17/2021 Time: 01:01 Bed 6 Private MD: ED Physician Carlos Alberto Rios HPI: 11/17 01:55 This 46 yrs old Black Female presents to ER via Ambulatory with complaints of Chest mh7 Pain. 01:55 The patient presents with abdominal pain in the epigastric area. Onset: The mh7 symptoms/episode began/occurred last night, at 21:45. The symptoms do not radiate. Associated signs and symptoms: Pertinent negatives: nausea, vomiting, and diarrhea, anorexia, blood in stools, chest pain, constipation, diarrhea, dysuria, fever, headache, hematuria, nausea, palpitations, shortness of breath, vaginal discharge, vomiting, vomiting blood. The symptoms are described as intermittent, vague, waxing/waning. Modifying factors: The symptoms are alleviated by nothing, the symptoms are aggravated by nothing. 01:55 Severity of pain: At its worst the pain was moderate last night, in the emergency 7 department the pain has improved moderately. Patient states that she ate a tuna sandwich from a restaurant around 7 PM then later started having upper abdominal pain, belching, and gassy feeling. Denies any chest pain, fever, nausea, vomiting, diarrhea, dysuria.. SIPHONER: 01:24 LMP N/A - Hysterectomy al4 Historical: - Allergies: 01:23 No Known Allergies; al4 - PMHx: 01:22 Atrial Fib; bowel obstruction; Crohn's; Hypertension; al4 - PSHx: 01:22 Appendectomy; Cholecystectomy; al4 - Immunization history:: Adult Immunizations up to date. - Social history:: Smoking status: Patient denies any tobacco usage or history of. ROS: 01:55 Constitutional: Negative for fever, chills, and weight loss, Eyes: Negative for injury, mh7 pain, redness, and discharge, ENT: Negative for injury, pain, and discharge, Neck: Negative for injury, pain, and swelling, Cardiovascular: Negative for chest pain, palpitations, and edema, Respiratory: Negative for shortness of breath, cough, wheezing, and pleuritic chest pain, Back: Negative for injury and pain, : Negative for injury, bleeding, discharge, and swelling, MS/Extremity: Negative for injury and deformity, Skin: Negative for injury, rash, and discoloration, Neuro: Negative for headache, weakness, numbness, tingling, and seizure, Psych: Negative for depression, anxiety, suicide ideation, homicidal ideation, and hallucinations, Allergy/Immunology: Negative for hives, rash, and allergies, Endocrine: Negative for neck swelling, polydipsia, polyuria, polyphagia, and marked weight changes, Hematologic/Lymphatic: Negative for swollen nodes, abnormal bleeding, and unusual bruising. Exam: 01:55 Constitutional: This is a well developed, well nourished patient who is awake, alert, mh7 and in no acute distress. Head/Face: Normocephalic, atraumatic. Eyes: Pupils equal round and reactive to light, extra-ocular motions intact. Lids and lashes normal. Conjunctiva and sclera are non-icteric and not injected. Cornea within normal limits. Periorbital areas with no swelling, redness, or edema. Neck: Trachea midline, no thyromegaly or masses palpated, and no cervical lymphadenopathy. Supple, full range of motion without nuchal rigidity, or vertebral point tenderness. No Meningismus. Chest/axilla: Normal chest wall appearance and motion. Nontender with no deformity. No lesions are appreciated. Cardiovascular: Regular rate and rhythm with a normal S1 and S2. No gallops, murmurs, or rubs. Normal PMI, no JVD. No pulse deficits. Respiratory: Lungs have equal breath sounds bilaterally, clear to auscultation and percussion. No rales, rhonchi or wheezes noted. No increased work of breathing, no retractions or nasal flaring. Back: No spinal tenderness. No costovertebral tenderness. Full range of motion. Skin: Warm, dry with normal turgor. Normal color with no rashes, no lesions, and no evidence of cellulitis. MS/ Extremity: Pulses equal, no cyanosis. Neurovascular intact. Full, normal range of motion. Neuro: Awake and alert, GCS 15, oriented to person, place, time, and situation. Cranial nerves II-XII grossly intact. Motor strength 5/5 in all extremities. Sensory grossly intact. Cerebellar exam normal. Normal gait. Psych: Awake, alert, with orientation to person, place and time. Behavior, mood, and affect are within normal limits. 01:55 Abdomen/GI: Inspection: obese scar(s), are noted in the suprapubic area, Bowel sounds: mh7 normal, in all quadrants, Palpation: moderate abdominal tenderness, in the epigastric area, right upper quadrant and left upper quadrant, mass, is not appreciated, rebound tenderness, is not appreciated, voluntary guarding, is not appreciated, involuntary guarding, is not appreciated, no appreciated organomegaly, Rectal exam: the exam is deferred, because of patient request, Indicators: McBurney's point is not tender, Morales's sign is negative, Rovsing's sign is negative, Obturator sign is negative, Psoas sign is negative, Liver: no appreciated palpable abnormalities, Hernia: not appreciated. 01:55 ECG was reviewed by the Attending Physician. [facility] Vital Signs: 01:06 Pulse 74; Resp 18; Temp 99.7; Pulse Ox 100% ; Weight 124.74 kg; Height 5 ft. 4 in. al4 (162.56 cm); 01:23 BP 140 / 96; Pulse 68; Resp 16; Pulse Ox 100% on R/A; st1 05:05 BP 127 / 93; Pulse 79; Resp 22; Pulse Ox 96% on R/A; sm5 01:06 Body Mass Index 47.20 (124.74 kg, 162.56 cm) al4 MDM: 01:55 Differential diagnosis: bowel obstruction, diverticulitis, gastritis, gastroesophageal mh7 reflux disease, Irritable bowel syndrome, non-specific abd pain, pancreatitis, Peptic Ulcer Disease, urinary tract infection. Data reviewed: vital signs, nurses notes, old medical records, lab test result(s), cardiac enzymes, CBC, electrolytes, urinalysis, EKG, radiologic studies, CT scan. Data interpreted: Pulse oximetry: on room air is 100 %. Interpretation: normal. Counseling: I had a detailed discussion with the patient and/or guardian regarding: the historical points, exam findings, and any diagnostic results supporting the discharge/admit diagnosis, the presence of at least one elevated blood pressure reading (>120/80) during this emergency department visit, lab results, radiology results, the need for outpatient follow up, to return to the emergency department if symptoms worsen or persist or if there are any questions or concerns that arise at home. Response to treatment: the patient's symptoms have resolved after treatment, the patient's blood pressure is in an acceptable range, mental status has returned to baseline, the patient no longer shows bradycardia, the patient is not short of breath, the patient is not tachycardic, the patient's pain is gone, the patient's temperature has normalized, patient is well hydrated. Tolerating p.o. intake without difficulty.. 04:43 Patient medically screened. [facility] 11/17 01:46 Order name: Basic Metabolic Panel; Complete Time: 02:56 [facility] 11/17 01:46 Order name: CBC with Diff; Complete Time: 02:56 [facility] 11/17 01:46 Order name: Hepatic Function; Complete Time: 02:56 [facility] 11/17 01:46 Order name: Lipase; Complete Time: 02:56 [facility] 11/17 01:50 Order name: Troponin High Sensitivity; Complete Time: 02:56 [facility] 11/17 02:44 Order name: Urine Dipstick-Ancillary; Complete Time: 02:56 [facility] 11/17 01:46 Order name: IV Saline Lock; Complete Time: 02:16 [facility] 11/17 01:46 Order name: Labs collected and sent; Complete Time: 02:16 [facility] 11/17 01:47 Order name: Urine Dipstick-Ancillary (obtain specimen); Complete Time: 02:44 [facility] 11/17 01:47 Order name: EKG; Complete Time: 01:48 [facility] 11/17 01:47 Order name: EKG - Nurse/Tech; Complete Time: 01:54 11/17 03:18 Order name: Abdomen EDMS EC:55 Rate is 68 beats/min. Rhythm is regular. QRS Capron is Normal. CO interval is normal. QRS mh7 interval is normal. QT interval is normal. No Q waves. T waves are Normal. No ST changes noted. Clinical impression: Normal ECG. Administered Medications: 02:20 Drug: GI Cocktail without - (Maalox Suspension 30 ml, Lidocaine Liquid 2 % 15 st1 ml) Route: PO; Disposition Summary: 11/17/21 04:43 Discharge Ordered Location: Home [facility] Problem: new [facility] Symptoms: have improved mh Condition: Stable [facility] Diagnosis - Upper abdominal pain, unspecified mh7 Followup: [facility] - With: Private Physician - When: 1 - 2 days - Reason: Worsening of condition, Recheck today's complaints, Continuance of care, Re-evaluation by your physician Discharge Instructions: - Discharge Summary Sheet [facility] - Abdominal Pain, Adult [facility] Forms: - Medication Reconciliation Form [facility] - Thank You Letter [facility] - Antibiotic Education [facility] - Prescription Opioid Use [facility] Prescriptions: - Pepcid 20 mg Oral Tablet - take 1 tablet by ORAL route every 12 hours for 5 days; 10 tablet; Refills: 0, [facility] Product Selection Permitted - dicyclomine 20 mg Oral Tablet - take 1 tablet by ORAL route 4 times per day As needed; 20 tablet; Refills: 0, [facility] Product Selection Permitted Signatures: Dispatcher [employer] Carlos Alberto Jaquez MD MD [facility] Elvis Lowe Shellie RN RN st1 Corrections: (The following items were deleted from the chart) 03:18 02:58 Abdomen Pelvis W Con+CT.RAD.BRZ ordered. SHIMA RONQUILLO
--- NOTE | 2021-11-17 04:44 | ER ---
Nurse's Notes [facility] Name: Dori Guardado Age: 46 yrs Sex: Female : 1975 Arrival Date: 11/17/2021 Time: :01 Bed 6 Private MD: Diagnosis: Upper abdominal pain, unspecified Presentation: 11/17 01:06 Method Of Arrival: Ambulatory al4 01:06 Chief complaint: Patient states: patient states she was prescribed prednisone on al4 Monday and stopped taking it today because she noticed her blood pressure was elevated. patient had new onset chest pain tonight as well. Coronavirus screen: Vaccine status: Patient reports being unvaccinated. Ebola Screen: No symptoms or risks identified at this time. Initial Sepsis Screen: Does the patient meet any 2 criteria?. Initial Sepsis Screen: Does the patient have a suspected source of infection? No. Patient's initial sepsis screen is negative. Risk Assessment: Do you want to hurt yourself or someone else? Patient reports no desire to harm self or others. Onset of symptoms was November 17, 2021. 01:06 Acuity: KASH 3 al4 Triage Assessment: : General: Appears in no apparent distress. comfortable, Behavior is calm, cooperative. al4 Pain: Complains of pain in chest Quality of pain is described as aching. Neuro: Level of Consciousness is awake, alert, obeys commands, Oriented to person, place, time, situation. Cardiovascular: Capillary refill < 3 seconds Patient's skin is warm and dry. Respiratory: Airway is patent Respiratory effort is unlabored, Respiratory pattern is regular, Denies shortness of breath. GI: Patient currently denies diarrhea, nausea, vomiting. Musculoskeletal: Range of motion: intact in all extremities. 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 - Social history:: Smoking status: Patient denies any tobacco usage or history of. Screenin:24 Abuse screen: Denies threats or abuse. Nutritional screening: No deficits noted. st1 Tuberculosis screening: No symptoms or risk factors identified. Fall Risk None identified. No fall in past 12 months (0 pts). No secondary diagnosis (0 pts). IV access (20 points). Ambulatory Aid- None/Bed Rest/Nurse Assist (0 pts). Fall Risk Gait- Normal/Bed Rest/Wheelchair (0 pts) Mental Status- Oriented to own ability (0 pts). Total Jane Fall Scale indicates No Risk (0-24 pts). Assessment: 01:25 Reassessment: triage assessment done at bedside. al4 02:30 Pain: Pain does not radiate. Pain began suddenly. st1 05:05 Reassessment: Patient states feeling better. sm5 Vital Signs: 01:06 Pulse 74; Resp 18; Temp 99.7; Pulse Ox 100% ; Weight 124.74 kg; Height 5 ft. 4 in. al4 (162.56 cm); 01:23 BP 140 / 96; Pulse 68; Resp 16; Pulse Ox 100% on R/A; st1 05:05 BP 127 / 93; Pulse 79; Resp 22; Pulse Ox 96% on R/A; sm5 01:06 Body Mass Index 47.20 (124.74 kg, 162.56 cm) al4 ED Course: 01:01 Patient arrived in ED. kc5 01:08 Carlos Alberto Rios MD is Attending Physician. 7 01:20 EKG done. al4 01:22 Triage completed. al4 01:24 Patient has correct armband on for positive identification. Bed in low position. Call st1 light in reach. Side rails up X 1. patient monitor on. Pulse ox on. NIBP on. Verbal reassurance given. 01:24 Arm band placed on. al4 01:24 Patient maintains SpO2 saturation greater than 95% on room air. st1 01:25 No apparent distress. st1 02:16 Basic Metabolic Panel Sent. st1 02:16 Lipase Sent. st1 02:16 Hepatic Function Sent. st1 02:16 CBC with Diff Sent. st1 02:16 Troponin High Sensitivity Sent. st1 03:32 Abdomen In Process Unspecified. EDMS 05:06 No provider procedures requiring assistance completed. IV discontinued, intact, sm5 bleeding controlled, No redness/swelling at site. Pressure dressing applied. Administered Medications: 02:20 Drug: GI Cocktail without - (Maalox Suspension 30 ml, Lidocaine Liquid 2 % 15 st1 ml) Route: PO; Outcome: 04:43 Discharge ordered by . david 05:06 Discharged to home ambulatory. [facility] 05:06 Condition: stable 05:06 Discharge instructions given to patient, Instructed on discharge instructions, follow up and referral plans. medication usage, Demonstrated understanding of instructions, follow-up care, medications, Prescriptions given X 2. 05:06 Patient left the ED. [facility] Signatures: Dispatcher [employer] EDMS Carlos Alberto Rios MD MD 7 Theresa Camargo 5 Elvis Lowe al4 Tessa Allen, RN RN sm5 Sigrid Lamas RN RN st1 Corrections: (The following items were deleted from the chart) 01:25 01:23 General: Appears in no apparent distress. comfortable, Behavior is calm, al4 cooperative, al4
[2021-11-17 05:59] VITALS: TEMP 99.7
[2021-11-17 06:02] VITALS: BP 127/93; O2SAT 96
--- NOTE | 2021-11-17 11:47 | RAD REPORT ---
EXAM DESCRIPTION: CT - Abdomen Pelvis Wo Contrast - 11/17/2021 8:57 am CLINICAL HISTORY: The patient is 46 years old and is Female; ABD PAIN TECHNIQUE: Axial computed tomography images of the abdomen and pelvis without intravenous contrast. Sagittal and coronal reformatted images were created and reviewed. This CT exam was performed usi ng one or more of the following dose reduction techniques: automated exposure control, adjustment o f the mA and/or kV according to patient size, and/or use of iterative reconstruction technique. COMPARISON: CT abdomen and pelvis without contrast May 09, 2021. FINDINGS: Lung bases: Unremarkable. No mass. No consolidation. ABDOMEN: Liver: Unremarkable. Gallbladder and bile ducts: Gallbladder is surgically absent. No ductal dilation. Pancreas: Unremarkable. No ductal dilation. Spleen: Unremarkable. No splenomegaly. Adrenals: Unremarkable. No mass. Kidneys and ureters: Unremarkable. No obstructing stones. No hydronephrosis. Stomach and bowel: Postsurgical changes in the proximal colon. No obstruction. No mucosal thickening. PELVIS: Appendix: No findings to suggest acute appendicitis. Bladder: Unremarkable. No stones. Reproductive: Unremarkable as visualized. ABDOMEN and PELVIS: Intraperitoneal space: Unremarkable. No free air. No significant fluid collection. Bones/joints: No acute fracture. No dislocation. Soft tissues: Unremarkable. Vasculature: Unremarkable. No abdominal aortic aneurysm. Lymph nodes: Unremarkable. No enlarged lymph nodes. IMPRESSION: No acute findings in the abdomen or pelvis. Electronically signed by: Jaziel Kwong MD 11/17/2021 4:11 AM RESIDENTIAL COLLECTIONS Due to temporary technical issues with the PACS/Fluency reporting system, reports are being signed by the in house radiologist without review as a courtesy to ensure prompt reporting. The interpreting r adiologist is fully responsible for the content of the report.
== END 2021-11-17 05:06 | disposition home or self-care (01) ==
LOC: ER 00:59
DX: R10.13 Epigastric pain (principal); I10 Essential (primary) hypertension
CPT/HCPCS: 36415; 74176; 80048; 80076; 81003; 83690; 84484; 85025; 99285

== ENCOUNTER 2021-12-08 22:19 | Emergency (ER) | payer OTHER ==
--- OUTSIDE RECORDS SUMMARY | 2021-12-08 22:23 | XMS REPORT | Continuity of Care Document ---
:1975 Author Organization [facility] t Address [address] [place] [address] Care Team Providers Name Role Phone Morena [...] active ity of problems problems [facility] Allergies, Adverse Reactions, Alerts Allergy Allergy Status Severity Reaction(s) Onset Inactive Treating Comm ents Source Name Type Date Date Clinician No Known DA Active U 2020-09 [facility] 00:[facility]: d 00 [facility] No Known DA Active U 2020-09 [facility] Allergie 0-28 [facility] 00:[facility]: d 00 [facility] NO KNOWN Drug Active Univers ALLERGIE Class ity of S [facility] Social History Social Habit Start Date Stop Date Quantity Comments Source Sex Assigned At [birth year] [facility] 00:00:00 00:00:00 [facility] Smoking Status Start Date Stop Date Source Unknown if ever smoked [facility] Medications Ordered Filled Start Stop Current Ordering Indication Dosage Frequency Signature Comments Components Source Medication Medication Date Date Medication? Clinician (SIG) Name Name No known 2020-09 No Univers medications 0-09 ity of 19:54: [address] Pantoprazol Pantoprazol Yes Na Lopez [address] [facility] Sodium e Sodium 8-10 [facility] Ergocalcife Ergocalcife 2018-09- No Na Lopez [address] [facility] rol rol 1-18 0216 [facility] Paxil Paxil Yes Na Lopez [address] [facility] 4-03 in the [facility] - 00:[facility]: morning [facility] 00 [facility] Humira Humira Yes Na Lopez not [facility] defined [facility] Aspirin Aspirin Yes Na Lopez not [facility] defined [facility] BusPIRone BusPIRone Yes Na Lopez [address] [facility] HCl HCl [facility] Metoprolol Metoprolol Yes Na Lopez [address] [facility] Tartrate Tartrate with food [facility] Vital Signs Vital Name Observation Time Observation Value Comments Source Systolic blood 2021-07-04 00:50:00 180 mm[Hg] Univer sity of pressure [facility] Diastolic blood 2021-07-04 00:50:00 110 [facility]Hg[facility] rate 2021-07-04 00:50:00 79 /min [facility] Body temperature 2021-07-04 00:50:00 36.67 [facility] Respiratory rate 2021-07-04 00:50:00 18 /min [facility] Body weight 2021-07-04 00:50:00 121.564 kg [facility] Oxygen saturation in 2021-07-04 00:50:00 99 /min [facility] blood by [facility] Pulse oximetry Branch Procedures Procedure Date / Time Performed Performing Clinician Sourbalbina e XR CHEST 1 VW 2021-07-04 01:14:37 Raissa Tran [facility] NOTICE OF PRIVACY 2021-07-04 00:45:31 Doctor Un[facility]igned, [facility] Name [facility] CONSENT/REFUSAL FOR 2021-07-04 00:45:10 Doctor Unassigned, No [facility] DI[facility]NOSIS AND Name Medical [facility] TREATMENT Encounters Start End Encounter Admission Attending Care Care Encounter Source Date/Time Date/Time Type Type Clinicians Facility Department ID 2021-10-20 Outpatient Lopez, Na STLMLC STLMLC [id number] [facility] 14[facility]09:55 [id number] [facility] 2021-10-20 Outpatient Lopez, Na STLMLC STLMLC [id number] [facility] [address] 13:47:22 [id number] [facility] 2021-10-20 Outpatient Lopez, Na STLMLC STLMLC [id number] [facility] [address] 12:29:04 [id number] [facility] 2021-10-20 Outpatient Lopez, Na STLMLC STLMLC [id number] [facility] [address] 12:03:44 [id number] [facility] 2021-10-20 Outpatient Lopez, Na STLMLC STLMLC [id number] [facility] 12:03:05 [id number] [facility] 2021-10-20 Outpatient Lopez, Na STLMLC STLMLC [id number] [facility] 11:43:49 [id number] [facility] 2021-10-20 Outpatient Lopez, Na STLMLC STLMLC [id number] [facility] [address] 11:35:56 [id number] [facility] 2021-10-20 Outpatient Lopez, Na STLMLC STLMLC [id number] [facility] 11:18:09 [id number] [facility] 2021-10-20 Outpatient Lopez, Na STLMLC STLMLC [id number] [facility] [address] 11:04:54 [id number] [facility] 2021-10-20 Outpatient Lopez, Na STLMLC STLMLC [id number] [facility] [address] 11:04:25 [id number] [facility] 2021-11-15 2021-11-15 ambulatory STLMLC [facility]C [id number] [facility] 2021-11-11 2021-11-11 ambulatory STLMLC STLMLC [id number] [facility] 2021-09-28 2021-09-28 ambulatory STLMLC STLMLC [id number] [facility] 2021-08-27 2021-08-27 ambulatory STLMLC STLMLC [id number] [facility] 2021-08-04 2021-08-04 ambulatory STLMLC STLMLC [id number] [facility] 2021-08-02 2021-08-02 ambulatory STLMLC STLMLC [id number] [facility] 2021-07-22 2021-07-22 Outpatient Vanesa Nunez HCAPM RADI LA5 [id number] [facility] 08:00:00 08:00:00 [id number] [facility] 2021-07-22 2021-07-22 Outpatient Vanesa Nunez HCAPM RADI LA0 [id number] [facility] 07:26:00 07:26:00 63 [facility] 2021-07-03 2021-07-03 Emergency Marc, [facility] [id number] Univers 19:47:00 21:16:00 [id number] [facility] [id number] [place] [id number] Branch 2021-07-03 2021-07-03 Emergency X [place] ERT [id number] Univers 19:47:00 19:47:00 ity [facility] 2021-06-072021-06-07 Outpatient STLMLC STLMLC [id number] [facility] 2021-05-06 2021-05-06 Outpatient STLMLC STLMLC [id number] [facility] 2021-04-28 2021-04-28 Outpatient STLMLC STLMLC [id number] [facility] 2021-04-27 2021-04-27 Outpatient STLMLC [facility]LMLC [id number] [facility] 2021-03-15 2021-03-15 Outpatient STLMLC STLC [id number] [facility] 2021-01-04 2021-01-04 Outpatient STLMLC STLC [id number] [facility] 2020-11-03 2020-11-03 Outpatient STLMLC STLC [id number] [facility] 2020-08-03 2020-08-03 Outpatient STLMLC [facility]LMLC [id number] [facility] 2020-05-04 2020-05-04 [facility] [id number] 10:10:00 10:10:00 [place] - [employer] [facility] l Medicine Outpati ent Clinics 2020-05-01 2020-05-01 [facility] [id number] 09:40:00 09:40:00 [place] - [employer] [facility] Out[facility] Clinics 2020-02-19 2020-02-19 [facility] [id number] 16:06:00 16:06:00 t [facility] [employer] [facility] Medicine Outpati ent Clinics 2019-12-12 2019-12-12 [facility] [id number] 15:41:00 15:41:00 t Marcus Marcus [email or web address] s - Drive [facility] Medicine Medicine Outpati ent Clinics 2019-09-16 2019-09-16 [facility] [id number] [address] 14:40:00 14:40:00 t Marcus Marcus [employer] s - Drive [facility] Medicine Outpati ent Clinics 2019-08-15 2019-08-15 [facility] [id number] [address] 09:27:00 09:27:00 t Marcus Marcus [employer] s - [employer] [facility] Medicine Medicine Outpati ent Clinics 2019-08-12 2019-08-12 [facility] [id number] 09:00:00 09:00:00 t Marcus Marcus [employer] s - [employer] [facility] Medicine Outpati ent Clinics 2019-07-31 2019-07-31 [facility] [id number] 11:46:00 11:46:00 t [facility] [employer] [facility] Medicine Medicine Outpati ent Clinics 2019-07-29 2019-07-29 [facility] [id number] 09:40:00 09:40:00 t [facility] [employer] [facility] Medicine Outpati ent Clinics 2019-06-02 2019-06-02 [facility] [id number] 09:38:00 09:38:00 [facility] 2019-05-31 2019-05-31 [facility] [id number] [address] 11:30:00 11:30:00 t [facility] Clin[facility] 2018-01-19 2018-01-19 [facility] [id number] [address] 08:11:00 08:11:00 t [facility] [employer] [facility] Medicine Medicine Outpati ent Clinics 2018-01-18 2018-01-18 [facility] [id number] 10:15:00 10:15:00 t [facility] [employer] - [facility] 2017-12-26 2017-12-26 Outpatient [facility] [id number] 09:30:00 09:30:00 Dialoggy Leon s [facility] ent [facility] Results Test Description Test Time Test Comments Results Result [facility] e Comments - CT ABD PELVIS 2021-07-22 W/CONT 09:50:00 [facility] 1975 Sex: F Name: SHE FITZGERALD [facility] : 1975 Age/S: 46 / F [phone] Unit #: [id number] Loc: [place] [address] Phys: Vanesa Nunez MD Acct: [id number] Dis Date: Status: REG CLI PHONE #: [phone] Exam Date: 07/22/2021917 FAX #: Reason: CROHNS DISEASE, UNSPECIFIED, WITHOUT COMPLICATI EXAMS: CPT: [id number] CT ABD PELVIS W/CONT 03027 HISTORY: CROHN'S DISEASE, UNSPECIFIED, WITHOUT COMPLICATIONS TECHNIQUE: [...] FITZGERALD : 1975 Age/S: 46 / F [id number] [address] Unit #: [id number] Loc: [place] [address] Phys: Vanesa Nunez MD Acct: [id number] Dis Date: Status: REG CLI PHONE #: [phone] Exam Date: 07/22/2021917 FAX #: Reason: CROHNS DISEASE, UNSPECIFIED, WITHOUT COMPLICATI EXAMS: CPT: [id number] CT ABD PELVIS W/CONT 46318 <Continued> IMPRESSION: 1. There is mild diffuse [...] Vanesa Nunez MD; Noemy Lopez DO Technologist:Mukul Ryan RT(R) CTDI: DLP: Trnscb Date/Time: 07/22/2021 (0950) [email or web address] Orig Print D/T: S: 07/22/2021 (3826) PAGE 2 Signed Report ISTAT-BUN 2021-07-22 08:27:00 Test Item Value Reference Range Interpretation Comme nts ISTAT-BUN (test code = BUNP) 8 mg/dL 8-26 N BEDSIDE [id number] 08:27:00 Test Item Value Reference Range Interpretation Comments BEDSIDE CREATININE (test code = 0.6 mg/dL 0.6-1.3 N CREATBED)
[2021-12-08 23:54] LABS: SARS-COV-2 RT PCR NEGATIVE (NEGATIVE)
[2021-12-09 01:28] LABS: Absolute Lymphocytes (CBC) 3.5 K/uL (0.7-4.9); Hematocrit 36.2 % (36.0-45.0); Lymphocytes % 35.7 % (15.3-44.8); MPV 8.2 fL (7.6-11.3); RBC Red Blood Cell Count 4.61 M/uL (3.86-4.86)
[2021-12-09 01:48] LABS: Albumin 3.7 g/dL (3.4-5.0); Bilirubin Direct 0.1 mg/dL (0-0.2); Bilirubin Total 0.5 mg/dL (0.2-1.0); Potassium 3.4 mmol/L (3.5-5.1); Protein, Total 8.9 g/dL (6.4-8.2)
[2021-12-09] MEDS ORDERED: MAGNES/ALUMIN/SIMET 30ML UCUP ONE (02:59)
[2021-12-09] MEDS ORDERED: LIDOCAINE VISCOUS 2% SOLN 15 ML UDC ONE (03:00)
[2021-12-09] MEDS ORDERED: POTASSIUM 25 MEQ EFFERV TAB ONE (03:23)
--- NOTE | 2021-12-09 03:26 | ER ---
Nurse's Notes [facility] Name: Dori Guardado Age: 46 yrs Sex: Female : 1975 Arrival Date: 12/08/2021 Time: 22:23 Bed 13 Private MD: Diagnosis: Dysphagia Presentation: 12/08 22:56 Chief complaint: Patient states: Throat pain when swallowing food or drinking water ke1 since 12/07/21. Coronavirus screen: Vaccine status: Patient reports being unvaccinated. Ebola Screen: No symptoms or risks identified at this time. Initial Sepsis Screen: Does the patient meet any 2 criteria? No. Patient's initial sepsis screen is negative. Does the patient have a suspected source of infection? No. Patient's initial sepsis screen is negative. Risk Assessment: Do you want to hurt yourself or someone else? Patient reports no desire to harm self or others. Onset of symptoms was December 07, 2021. 22:56 Method Of Arrival: Ambulatory ke1 22:56 Acuity: KASH 4 ke1 Triage Assessment: 23:00 General: Appears in no apparent distress. Behavior is cooperative. ke1 23:00 Pain: Complains of pain in Neck area Pain currently is 7 out of 10 on a pain scale. ke1 Quality of pain is described as burning. 23:00 EENT: Throat is pink with gag reflex present. Neuro: Level of Consciousness is awake, ke1 alert, Oriented to person, place, time, situation. Cardiovascular: Heart tones S1 S2 Capillary refill < 3 seconds Patient's skin is warm and dry. Respiratory: Airway is patent Breath sounds are clear. 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 It has been more than one year since last vaccine. - Social history:: Smoking status: Patient denies any tobacco usage or history of. Patient/guardian denies using. Screenin/17 01:07 Abuse screen: Denies threats or abuse. Nutritional screening: No deficits noted. ke1 Tuberculosis screening: No symptoms or risk factors identified. Fall Risk No fall in past 12 months (0 pts). No secondary diagnosis (0 pts). No IV (0 pts). Ambulatory Aid- None/Bed Rest/Nurse Assist (0 pts). Gait- Normal/Bed Rest/Wheelchair (0 pts) Mental Status- Oriented to own ability (0 pts). Total Jane Fall Scale indicates No Risk (0-24 pts). Assessment: 00:56 Reassessment: see triage note. ke1 01:06 Reassessment: Patient is difficult stick, unable to obtain an IV, charge nurse will ke1 attempt with ultrasound. 02:00 Reassessment: Patient is alert, oriented x 3, equal unlabored respirations, skin ke1 warm/dry/pink. 03:11 Reassessment: No changes from previously documented assessment. ke1 Vital Signs: 12/08 22:56 BP 142 / 98; Pulse 84; Resp 18; Temp 97.9(TE); Pulse Ox 100% on R/A; Weight 126.55 kg; ke1 Height 5 ft. 4 in. (162.56 cm); Pain 5/10; 12/09 00:22 BP 154 / 107; Pulse 85; Resp 18; Temp 97.9(TE); Pulse Ox 100% on R/A; oe 01:00 BP 151 / 95; Pulse 85; Resp 18; Pulse Ox 96% on R/A; ke1 02:00 BP 144 / 93; Pulse 85; Resp 18; Pulse Ox 98% on R/A; ke1 03:12 BP 130 / 90; Pulse 85; Resp 18; Pulse Ox 94% on R/A; ke1 12/08 22:56 Body Mass Index 47.89 (126.55 kg, 162.56 cm) ke1 ED Course: 12/08 22:23 Patient arrived in ED. jj6 22:59 Triage completed. ke1 23:02 Arm band placed on right wrist. ke1 23:12 Strep Sent. as6 23:12 Group A Streptococcus Rapid Sc Sent. as6 23:12 COVID-19/FLU A+B (Document "Date of Onset" if Symptomatic) Sent. as6 23:12 COVID-19/FLU A+B Sent. as6 12/09 00:20 Hardy Mahoney PA is PHCP. cp 00:20 Yogesh Singh MD is Attending Physician. cp 00:33 Ya Dunn RN is Primary Nurse. ke1 01:08 Bed in low position. Call light in reach. ke1 01:15 Initial lab(s) drawn, by me, sent to lab. Inserted saline lock: 18 gauge in right bb antecubital area, using aseptic technique. Blood collected. 01:31 XRAY Chest (1 view) In Process Unspecified. EDMS 01:36 Ya Dunn RN is Primary Nurse. ke1 01:56 CT Soft Tissue Neck W/contr In Process Unspecified. EDMS 01:56 IV discontinued, infiltrated after CT scan, site slightly swollen. ke1 03:25 Vanesa Nunez MD is Referral Physician. cp 04:15 No provider procedures requiring assistance completed. as6 Administered Medications: 03:00 Drug: GI Cocktail without - (Maalox Suspension 30 ml, Lidocaine Liquid 2 % 15 ke1 ml) Route: PO; 04:16 Follow up: Response: Marked relief of symptoms as6 03:24 Drug: Potassium Effervescent Tablet 50 mEq Route: PO; as6 04:16 Follow up: Response: Marked relief of symptoms as6 Outcome: 03:26 Discharge ordered by MD. cp 04:16 Discharged to home ambulatory. as6 04:16 Condition: good 04:16 Discharge instructions given to patient. 04:17 Patient left the ED. as6 Signatures: Dispatcher [employer] EDMS Precious Felton RN RN bb Page, Corey, PA PA Navin Blake Jennifer jj6 Moy Rios RN RN as6 Ya Dunn RN RN ke1 Corrections: (The following items were deleted from the chart) 01:08 01:07 Fall Risk No fall in past 12 months (0 pts). No secondary diagnosis (0 pts). No ke1 IV (0 pts). Ambulatory Aid- None/Bed Rest/Nurse Assist (0 pts). Gait- Normal/Bed Rest/Wheelchair (0 pts) Mental Status- Oriented to own ability (0 pts). ke1 01:39 03/16 23:00 Pain: Complains of pain in Neck area Pain currently is 7 out of 10 on a ke1 pain scale. Quality of pain is described as burning, ke12/09 01:40 03 23:00 EENT: No deficits noted. 12/09 03:15 02:00 BP 131 / 79; Pulse 91bpm; Resp 18bpm; Pulse Ox 96% RA; ke1 ke
--- NOTE | 2021-12-09 03:26 | EDPHYS ---
Physician Documentation [facility] Name: Dori Guardado Age: 46 yrs Sex: Female : 1975 Arrival Date: 12/08/2021 Time: 22:23 Bed 13 Private MD: ED Physician Yogesh Singh HPI: 12/09 00:25 This 46 yrs old Black Female presents to ER via Ambulatory with complaints of Cough, cp Difficulty Swallowing. 00:25 The patient presents with sore throat, dysphagia, of solids. The patient describes cp throat pain as burning. Onset: The symptoms/episode began/occurred 2 day(s) ago. 00:25 Severity of symptoms: in the emergency department the symptoms are unchanged, despite cp home interventions. Associated signs and symptoms: Pertinent positives: chest pain, cough, right upper back and shoulder pain, Pertinent negatives fever. NURSE WOUND CARE: 12/08 23:02 LMP N/A - Hysterectomy ke1 Historical: - Allergies: 22:59 No Known Allergies; ke1 - PMHx: 22:59 bowel obstruction; Atrial Fib; Crohn's; Hypertension; ke1 - PSHx: 22:59 Appendectomy; Cholecystectomy; ke1 - Immunization history:: Flu vaccine is not up to date. It has been more than one year since last vaccine. - Social history:: Smoking status: Patient denies any tobacco usage or history of. Patient/guardian denies using. ROS: 12/09 00:30 Constitutional: Negative for body aches, chills, fever, poor PO intake. cp 00:30 Eyes: Negative for injury, pain, redness, and discharge. cp 00:30 ENT: Positive for difficulty swallowing, sore throat, Negative for drainage from ear(s), ear pain, difficulty handling secretions. 00:30 Neck: Negative for pain with movement, pain at rest, stiffness. 00:30 Cardiovascular: Negative for chest pain, edema, palpitations. 00:30 Respiratory: Positive for cough, with no reported sputum, Negative for shortness of breath, wheezing. 00:30 Abdomen/GI: Negative for abdominal pain, vomiting, diarrhea, constipation. 00:30 Back: Positive for radiated pain, of the right trapezius and right scapular area. 00:30 Skin: Negative for cellulitis, rash. 00:30 Neuro: Negative for altered mental status, dizziness, headache, syncope, weakness. 00:30 All other systems are negative. Exam: 00:35 Constitutional: The patient appears in no acute distress, alert, awake, cp non-diaphoretic, non-toxic, well developed, well nourished, obese. 00:35 Head/Face: Normocephalic, atraumatic. cp 00:35 Eyes: Periorbital structures: appear normal, Conjunctiva: normal, no exudate, no injection, Sclera: no appreciated abnormality, Lids and lashes: appear normal, bilaterally. 00:35 ENT: External ear(s): are unremarkable, Nose: is normal, Mouth: Lips: moist, Oral mucosa: pink and intact, moist, Posterior pharynx: Airway: no evidence of obstruction, patent, Tonsils: are normal in appearance, Uvula: midline, swelling, is not appreciated, erythema, is not appreciated, exudate, is not appreciated. 00:35 Neck: ROM/movement: is normal, is supple, without pain, no range of motions limitations, no nuchal rigidity. 00:35 Chest/axilla: Inspection: normal, Palpation: is normal, no crepitus, no tenderness. 00:35 Cardiovascular: Rate: normal, Rhythm: regular, Edema: is not appreciated, JVD: is not appreciated. 00:35 Respiratory: the patient does not display signs of respiratory distress, Respirations: normal, no use of accessory muscles, no retractions, labored breathing, is not present, Breath sounds: are clear throughout, no decreased breath sounds, no stridor, no wheezing. 00:35 Abdomen/GI: Inspection: abdomen appears normal, Palpation: abdomen is soft and non-tender, in all quadrants. 00:46 ECG was reviewed by the Attending Physician. cp Vital Signs: 12/08 22:56 BP 142 / 98; Pulse 84; Resp 18; Temp 97.9(TE); Pulse Ox 100% on R/A; Weight 126.55 kg; ke1 Height 5 ft. 4 in. (162.56 cm); Pain 02/01; 12/09 00:22 BP 154 / 107; Pulse 85; Resp 18; Temp 97.9(TE); Pulse Ox 100% on R/A; oe 01:00 BP 151 / 95; Pulse 85; Resp 18; Pulse Ox 96% on R/A; ke1 02:00 BP 144 / 93; Pulse 85; Resp 18; Pulse Ox 98% on R/A; ke1 03:12 BP 130 / 90; Pulse 85; Resp 18; Pulse Ox 94% on R/A; ke1 12/08 22:56 Body Mass Index 47.89 (126.55 kg, 162.56 cm) ke MDM: 00:29 Patient medically screened. cp 01:40 Test interpretation: by ED physician or midlevel provider: ECG, chest xray negative for cp infiltrates. 03:25 Data reviewed: vital signs, nurses notes, lab test result(s), EKG, radiologic studies, cp CT scan, plain films. 03:25 Counseling: I had a detailed discussion with the patient and/or guardian regarding: the cp historical points, exam findings, and any diagnostic results supporting the discharge/admit diagnosis, lab results, radiology results, the need for outpatient follow up, a jig maker, to return to the emergency department if symptoms worsen or persist or if there are any questions or concerns that arise at home. Response to treatment: VSS. Pain improved. Patient tolerating po fluids. Low suspicion for cardiac cause of pain and symptoms, EKG normal and unable to get troponin level. Will discharge to home for continued monitoring. 12/08 23:05 Order name: Strep ke 12/08 23:05 Order name: Group A Streptococcus Rapid Sc; Complete Time: 00:25 EDCA 12/08 23:09 Order name: COVID-19/FLU A+B (Document "Date of Onset" if Symptomatic) bb 12/08 23:09 Order name: COVID-19/FLU A+B; Complete Time: 00:25 EDCA 12/09 02:44 Interpretation: Reviewed. cp 12/08 23:33 Order name: Throat Culture EDCA 12/09 00:26 Order name: Basic Metabolic Panel cp 12/09 02:43 Interpretation: Normal except: K 3.4; GFR 79. cp 12/09 00:26 Order name: CBC with Diff; Complete Time: 02:43 cp 12/09 02:43 Interpretation: Normal except: HGB 11.9; MCV 78.6; MCH 25.8; BASO% 1.9. cp 12/09 00:26 Order name: LFT's cp 12/09 02:43 Interpretation: Normal except: TP 8.9; GLOB 5.2; A/G 0.7. cp 12/09 00:26 Order name: Troponin HS cp 12/09 00:26 Order name: XRAY Chest (1 view) cp 12/09 00:26 Order name: [place] Screen Profile; Complete Time: 02:43 cp 12/09 00:45 Order name: CT Soft Tissue Neck W/contr cp 12/09 00:26 Order name: EKG; Complete Time: 00:27 cp 12/09 00:26 Order name: Cardiac monitoring; Complete Time: 00:54 cp 12/09 00:26 Order name: EKG - Nurse/Tech; Complete Time: 00:54 cp 12/09 00:26 Order name: IV Saline Lock; Complete Time: 01:28 cp 12/09 00:26 Order name: Labs collected and sent; Complete Time: 01:29 cp 12/09 00:26 Order name: O2 Per Protocol; Complete Time: 00:59 cp 12/09 00:26 Order name: O2 Sat Monitoring; Complete Time: 00:59 cp EC:46 Rate is 78 beats/min. Rhythm is regular. [place] interval is normal. QRS interval is normal. cp QT interval is normal. T waves are Inverted in lead aVR. Interpreted by me. Reviewed by me. Administered Medications: 03:00 Drug: GI Cocktail without - (Maalox Suspension 30 ml, Lidocaine Liquid 2 % 15 ke1 ml) Route: PO; 04:16 Follow up: Response: Marked relief of symptoms as6 03:24 Drug: Potassium Effervescent Tablet 50 mEq Route: PO; as6 04:16 Follow up: Response: Marked relief of symptoms as6 Disposition: 04:23 Co-signature as Attending Physician, Yogesh Singh MD I agree with the assessment and kdr plan of care. Disposition Summary: 12/09/21 03:26 Discharge Ordered Location: Home cp Problem: new cp Symptoms: have improved cp Condition: Stable cp Diagnosis - Dysphagia cp Followup: cp - With: Vanesa Nunez MD - When: Tomorrow - Reason: Recheck today's complaints Discharge Instructions: - Discharge Summary Sheet cp - Dysphagia cp Forms: - Medication Reconciliation Form cp - Thank You Letter cp - Antibiotic Education cp - Prescription Opioid Use cp Prescriptions: - Protonix 40 mg Oral Tablet - take 1 tablet by ORAL route once daily; 30 tablet; Refills: 0, Product cp Selection Permitted - Zofran 4 mg Oral Tablet - take 1 tablet by ORAL route every 12 hours As needed; 20 tablet; Refills: 0, cp Product Selection Permitted Signatures: Dispatcher [employer] Yogesh Patel MD MD kdr Page, Corey, PA PA cp Slawson, Ashby, RN RN as6 Ya Dunn RN RN ke1
[2021-12-09 04:58] VITALS: TEMP 97.9
[2021-12-09 05:04] VITALS: BP 130/90; O2SAT 94
[2021-12-09 07:20] LABS: Troponin High Sensitivity 4.1 pg/mL (<58.9)
--- NOTE | 2021-12-09 11:23 | RAD REPORT ---
EXAM DESCRIPTION: RAD - Chest Single View - 12/09/2021 1:31 am CLINICAL HISTORY: 46 years, Female, dysphagia COMPARISON: 04/25/2020. FINDINGS: Single view of the chest was obtained portable. Prior films were compared. External EKG le ads within the [id number] limits diagnosis. The cardiomediastinal silhouette demonstrate to be u nremarkable. The heart is not enlarged. The thoracic aorta is unremarkable. Costophrenic angles are sharp. No areas of consolidation or masses are seen. The rest of the soft tissue and bony struct ures demonstrate to be unremarkable. IMPRESSION: NO ACUTE CARDIOPULMONARY DISEASE SEEN. Electronically signed by: Dio Webster MD 12/09/2021 1:53 AM CDT Due to temporary technical issues with the PACS/Fluency reporting system, reports are being signed by the in house radiologists without review as a courtesy to insure prompt reporting. The interpreting radiologist is fully responsible for the content of the report.
--- NOTE | 2021-12-09 14:57 | RAD REPORT ---
EXAM DESCRIPTION: CT - Soft Tissue Neck W/Contr - 12/09/2021 6:02 am CLINICAL HISTORY: 46 years, Female, dysphagia COMPARISON: None. TECHNIQUE: Multiple transaxial tomograms of the neck were obtained from the base of the skull to the pulmonary apex utilizing 3 mm slice thickness at 3 mm interval reconstruction after the administrati on of 100 IV contrast. In addition coronal and sagittal spinal reformats were generated and reviewed. This exam was performed according to our departmental dose-optimization protocol, which includes auto mated exposure control, adjustment of the mA and/or kV according to patient size and/or use of iterat papo reconstruction technique. FINDINGS: Skull base demonstrate to be normal. Nasopharynx, oropharynx, hypopharynx is normal. The re is no evidence for significant abnormal mucosal enhancement. There is prominence of the bilateral tonsils slightly greater left than right perhaps reactive in nature. No definitive the evidence for a bscess formation and/or abnormal fluid collections. No evidence for prevertebral soft tissue swelling , air and/or edema. Parapharyngeal space demonstrate to be normal. Parotid and submandibular glands are normal. There is no evidence for significant cervical lymphadenopathy. Tiny nondiagnostic lymph nodes are s een within the posterior neck. Paravertebral elements are grossly unremarkable. Vocal cords demonstrate to be symmetric. Thyroid gland demonstrate to be unremarkable. Visualized por tions of the lung apices demonstrate to be within normal limits. IMPRESSION: MILD PROMINENCE OF THE TONSILS WITH NO EVIDENCE FOR SIGNIFICANT ABSCESS FORMATION AND/OR ABNORMAL FLUID COLLECTIONS. NO EVIDENCE FOR CERVICAL LYMPHADENOPATHY AND/OR ABNORMAL CERVICAL MASSES. Electronically signed by: Dio Webster MD 12/09/2021 2:14 AM CDT Due to temporary technical issues with the PACS/Fluency reporting system, reports are being signed by the in house radiologists without review as a courtesy to insure prompt reporting. The interpreting radiologist is fully responsible for the content of the report.
--- NOTE | 2021-12-13 08:32 | EKG ---
Test Date: 2021-12-09 Test Time: 00:39:57 Hygiene Teacher: STEPHEN MEASUREMENT RESULTS: Intervals: Rate: 78 [place]: 160 QRSD: 84 QT: 386 QTc: 440 [place]: P: 54 [place]: 160 QRS: 23 T: 48 INTERPRETIVE STATEMENTS: Normal sinus rhythm Normal ECG Compared to ECG 11/17/2021 01:17:37 No significant changes Electronically Signed On 12-13-21 08:23:59 CDT by Matthew Lofton
== END 2021-12-09 04:17 | disposition home or self-care (01) ==
LOC: ER 22:19
DX: R13.10 Dysphagia, unspecified (principal); R05.9 Cough, unspecified; R07.9 Chest pain, unspecified; I10 Essential (primary) hypertension; Z20.822 Contact with and (suspected) exposure to COVID-19
CPT/HCPCS: 93005; 87070; 85025; 80048; 36415; 86308; 80076; 87081; 84484; 0240U; 70491; 71045; 99284; Q9967

== ENCOUNTER 2021-12-15 17:58 | Emergency (ER) | payer OTHER ==
--- OUTSIDE RECORDS SUMMARY | 2021-12-15 18:01 | XMS REPORT | Continuity of Care Document ---
:[address] [facility] t Address [address] [place] [address] Care Team Providers Name Role Phone Morena [...] rs active active ity of problems problems [facility] Allergies, Adverse Reactions, Alerts Allergy Allergy Status Severity Reaction(s) Onset Inactive Treating Comm ents Source Name Type Date Date Clinician No Known DA Active U 2020-09 [facility] 00:[facility]: d 00 [facility] No Known DA Active U 2020-09 [facility] Allergie 0-28 [facility] 00:00: d 00 [facility] NO KNOWN Drug Active Univers ALLERGIE Class ity of S [facility] Social History Social Habit Start Date Stop Date Quantity Comments Source Sex Assigned At [birth year] [facility] 00:00:00 00:00:00 [facility] Smoking Status Start Date Stop Date Source Unknown if ever smoked [facility] Medications Ordered Filled Start Stop Current Ordering Indication Dosage Frequency Signature Comments Components Source Medication Medication Date Date Medication? Clinician (SIG) Name Name No known 2020-09 No Univers medications 0-09 ity of 19:54: [address] Pantoprazol Pantoprazol Yes Na Lopez [address] [facility] Sodium e Sodium 8-10 [facility] 00 [facility] Ergocalcife Ergocalcife 2018-09- No Na Lopez [address] [facility] rol rol 1-18 0216 [facility]00 [facility] Paxil Paxil Yes Na Lopez [address] [facility] 4-03 in the [facility] 00:[facility]: morning [facility] 00 [facility] Humira Humira Yes Na Lopez not [facility] defined [facility] Aspirin Aspirin Yes Na Lopez not [facility] defined [facility] BusPIRone BusPIRone Yes Na Lopez [address] [facility] [facility] HCl HCl [facility] Metoprolol Metoprolol Yes Na Lopez [address] Tartrate Tartrate with food [facility] Vital Signs Vital Name Observation Time Observation Value Comments Source Systolic blood 2021-07-04 00:50:00 180 mm[Hg] Univer sity of pressure [facility] Diastolic blood 2021-07-04 00:50:00 110 mm[Hg] [facility] Heart rate 2021-07-04 00:50:00 79 /min [facility] Body temperature 2021-07-04 00:50:00 36.67 Gem [facility] Respiratory rate 2021-07-04 00:50:00 18 /min [facility] Body weight 2021-07-04 00:50:00 121.564 kg [facility] Oxygen saturation in 2021-07-04 00:50:00 99 /min [facility] blood by [facility] Pulse oximetry Branch Procedures Procedure Date / Time Performed Performing Clinician Marta e XR CHEST 1 VW 2021-07-04 01:14:37 Raissa Tran [facility] NOTICE OF PRIVACY 2021-07-04 00:45:31 Doctor Unassigned, No [facility] CONSENT/REFUSAL FOR 2021-07-04 00:45:10 Doctor Unassigned, No [facility] DIAGNOSIS AND Name Medical [facility] TREATMENT Encounters Start End Encounter Admission Attending Care Care Encounter Source Date/Time Date/Time Type Type Clinicians Facility Department ID 2021-10-20 Outpatient Lopez, Na STLMLC STLMLC [id number] [facility] 14:09:55 [id number] [facility] 2021-10-20 Outpatient Lopez, Na STLMLC STLMLC [id number] [facility] [address] 13:47:22 [id number] [facility] 2021-10-20 Outpatient Lopez, Na STLMLC STLMLC [id number] [facility] [address] 12:29:04 [id number] [facility] 2021-10-20 Outpatient Lopez, Na STLMLC STLMLC [id number] [facility] 12:03:44 [id number] [facility] 2021-10-20 Outpatient Lopez, Na STLMLC STLMLC [id number] [facility] 12:03:05 [id number] [facility] 2021-10-20 Outpatient Lpoez, Na STLMLC STLMLC [id number] [facility] [address] 11:43:49 [id number] [facility] 2021-10-20 Outpatient Lopez, Na STLMLC STLMLC [id number] 11:35:56 [id number] [facility] 2021-10-20 Outpatient Lopez, Na STLMLC STLMLC [id number] [facility] [address] 11:18:09 [id number] [facility] 2021-10-20 Outpatient Lopez, Na STLMLC STLMLC [id number] [facility] 11:04:54 [id number] [facility] 2021-10-20 Outpatient Lopez, Na STLMLC STLMLC [id number] 11:04:25 [id number] [facility] 2021-11-15 2021-11-15 ambulatory STLMLC [facility]LMLC [id number] [facility] 2021-11-11 2021-11-11 ambulatory STLMLC [facility]LMLC [id number] [facility] 2021-09-28 2021-09-28 ambulatory STLMLC STLMLC [id number] [facility] 2021-08-27 2021-08-27 ambulatory STLMLC [facility]LMLC [id number] [facility] 2021-08-04 2021-08-04 ambulatory STLMLC [facility]LMLC [id number] [facility] 2021-08-02 2021-08-02 ambulatory STLMLC STLMLC [id number] [facility] 2021-07-22 2021-07-22 Outpatient Vanesa Nunez HCAPM RADI LA5 [id number] [facility] 08:00:00 08:00:00 [id number] [facility] 2021-07-22 2021-07-22 Outpatient Vanesa Nunez HCAPM RADI LA0 [id number] [facility] 07:26:00 07:26:00 63 [facility] 2021-07-03 2021-07-03 Emergency Marc, [facility] [id number] Univers 19:47:00 21:16:00 [id number] [facility] [id number] [place] [id number] Branch 2021-07-03 2021-07-03 Emergency X [place] ERT [id number] Univers 19:47:00 19:47:00 ity [facility] 2021-06-07 2021-06-07 Outpatient STLMLC STLMLC [id number] [facility] 2021-05-06 2021-05-06 Outpatient STLMLC [facility]LMLC [id number] [facility] 2021-04-28 2021-04-28 Outpatient STLMLC STLC [id number] [facility] 2021-04-27 2021-04-27 Outpatient STLMLC STLC [id number] [facility] 2021-03-15 2021-03-15 Outpatient STLMLC STLC [id number] [facility] 2021-01-04 2021-01-04 Out[facility] [id number] [facility] 2020-11-03 2020-11-03 Outpatient [facility] [id number] [facility] 2020-08-03 2020-08-03 Outpatient STLMLC [facility] [id number] [facility] 2020-05-04 2020-05-04 [facility] [id number] [address] 10:10:00 10:10:00 t [facility] - sal[facility]omed [facility] Medicine Outpati ent Clinics 2020-05-01 2020-05-01 [facility] [id number] 09:40:00 09:40:00 t [facility] - salgomed [facility] Medicine Outpati ent Clinics 2020-02-19 2020-02-19 [facility] [id number] 16:06:00 16:06:00 [facility] Medicine Outpati ent Clinics 2019-12-12 2019-12-12 [facility] [id number] 15:41:00 15:41:00 [place] [employer] [employer] [facility] Medicine Medicine Outpati ent Clinics 2019-09-16 2019-09-16 [facility] [id number] 14:40:00 14:40:00 t [place] [employer] [facility] Medicine Outpati ent Clinics 2019-08-15 2019-08-15 [facility] [id number] 09:27:00 09:27:00 [place] [employer] [facility] Medicine Outpati ent Clinics 2019-08-12 2019-08-12 [facility] [id number] 09:00:00 09:00:00 [place] [employer] [facility] Medicine Outpati ent Clinics 2019-07-31 2019-07-31 [facility] [id number] 11:46:00 11:46:00 t [place] [employer] [facility] Medicine Outpati ent Clinics 2019-07-29 2019-07-29 [facility] [id number] 09:40:00 09:40:00 t [employer] [facility] Medicine Outpati ent Clinics 2019-06-02 2019-06-02 [facility] [id number] 09:38:00 09:38:00 [facility] 2019-05-31 2019-05-31 [facility] [id number] 11:30:00 11:30:00 t [facility] l Outpati ent Clinics 2018-01-19 2018-01-19 [facility] [id number] 08:11:00 08:11:00 [place] [employer] [facility] Medicine Outpati ent Clinics 2018-01-18 2018-01-18 [facility] [id number] 10:15:00 10:15:[address] [facility] 2017-12-26 2017-12-26 [facility] [id number] 09:30:00 09:30:00 [facility] ent [facility] Results Test Description Test Time Test Comments Results Result Comments Source SARS-CoV-2 (COVID-19), RT-PCR/TMA 2021-12-10 07:26:55 Test Item Value Reference Range Interpretation Comme nts SARS-CoV-2 INTERPRETATION NEGATIVE SEE NOTE S ARS-CoV-2 RNA NOT (test code = 93793) DETECTED Negative results do not preclude SARS-C oV-2 infection and should notbe us ed as the sole basis for patie nt management decisions. Nega tiveresults must be combined wit h clinical observations, p atient history,and epidemiological information. Optimum specime n types and timingfor peak viral levels during infectio ns caused by SARS-CoV-2 have notbeen determined. Col lection of multiple specim ens or types ofspecimens may be necessary to detect virus. I mproper specimencollect ion and handling, sequence variab ility under primers/probes, or organism present below t he limit of detection may l ead to falsenegative r esults. Positive and negative pr edictive values oftesting are h ighly dependent on prevalence. Fal se negative testresults are more likely when prevalence is h igh. EFFECTIVE 12/06/2021, SPU JAVED SPECIMENS CAN NO LONGER BE TE STED WITHTHIS ORDER CODE. FO R SALIVA, ORAL FLUID TESTING A ND SPECIMENREQUIRE MENTS, PLEASE REFER TO ORDER CODE 3509. SOURCE (test code = 16163) NASOPHARYNGEAL Note: Methodology is Ro Charito Real-Time RT-PC R. The expected result or ref erence range is NEGATIVE (Not D etected). For more information reg arding COVID-19 testing to incl ude clinicalinforma tion, methodology detail, intende d use, FDA authorization a ndrecommended fact sheets for carlos ents or healthcare providers, see NewTest Announcement: S ARS-CoV-2 (COVID-19) by N AAT at URL below (note,fact shee ts are provided by method given in report:https:// www.[employer]/cl inicians/client -communications/ Alternatively, see downloadable PDF fact sheet at:https://www. [employer]/COVID- 19-RT-PCR UNLESS OTHERWISE INDICATED, ALL TESTING PERFORMED ATCLINICAL PATH [facility]LOG[facility], [facility]. [address], [place] [address] LABORATORY DIRE CTOR: PRUDENCE SOLIS M.D. CLIA NUMBER [id number] [place] [place]. [id number] - CT ABD PELVIS [id number] 09:50:00 [facility] : 1975 Sex: F Name: SHE FITZGERALD [facility] : 1975Age/S: 46 / F [id number] Unit #: [id number] Loc: [place] [address] Phys: Vanesa Nunez MD Acct: [id number] Dis Date: Status: REG CLI PHONE#: [phone] Exam Date: 07/22/2021917 FAX #: Reason:CROHNS DISEASE, UNSPECIFIED, WITHOUT COMPLICATI EXAMS: CPT: [id number] CT ABD PELVIS W/CONT 14301 HISTORY: CROHN'S DISEASE, UNSPECIFIED, WITHOUT COMPLICATIONS TECHNIQUE: Helical imaging of the abdomen and pelvis is performed with intravenous contrast. Approximately 100 mL ofintravenous contrast was administered. No oral contrast is administered. Sagittal and coronal reconstructions reviewed. CT DLP dose: 974 mGy-cm. Iterative dose reduction technique was utilized. Location: T 18 Comparison study: None FINDINGS: The images of the lung bases demonstrate no masses, effusions orinfiltrates. Heart size is normal. There is no [...] PAGE 1 Signed Report (CONTINUED) Name: SHE FERNANDEZ [place] : 1975 Age/S: 46 / F [id number] Unit #: [id number] Loc: [place] [address] Phys: Vanesa Nunez MD Acct: [id number] Dis Date: Status: REG CLI PHONE #: [phone] Exam Date: 07/22/2021917 FAX #: Reason: CROHNS DISEASE, UNSPECIFIED, WITHOUT COMPLICATI EXAMS: CPT:[id number] CT ABD PELVIS W/CONT 26378 <Continued> IMPRESSION: 1. There is mild diffuse thickening of the transverse colon andsplenic flexure as well as the distal descending colon and upper sigmoid. There is no pericolonic inflammation. Findings may represent infectious or inflammatory colitis. 2. Status post cholecystectomy. 3. Evidence of right colonic surgery. at 0950 Reported and signed by: Sudhir Calix M.D. CC: Vanesa Nunez MD; Noemy Ly Loepz Technologist:Mukul Ryan, RT(R) CTDI: DLP: Trnscb Date/Time: 07/22/2021 (0950) [id number] Orig Print D/T: S: 07/22/2021 (0980) PAGE 2 Signed Report [id number] 08:27:00 Test Item Value Reference Range Interpretation Comments ISTAT-BUN (test code = BUNP) 8 mg/dL 8-26 N BEDSIDE [id number] 08:27:00 Test Item Value Reference Range Interpretation Comments BEDSIDE CREATININE (test code = 0.6 mg/dL 0.6-1.3 N CREATBED)
--- NOTE | 2021-12-15 21:14 | ER ---
Nurse's Notes [facility] Name: Dori Guardado Age: 46 yrs Sex: Female : 1975 Arrival Date: 12/15/2021 Time: 18:01 Bed 10 Private MD: Diagnosis: Dizziness and giddiness;Pain in right upper arm Presentation: 12/15 18:06 Chief complaint: Patient states: "I had a cat scan done Monday and the dye leaked ab2 into my arm and now its throbbing.". Coronavirus screen: Vaccine status: Patient reports being unvaccinated. Client denies travel out of the [place] in the last 14 days. At this time, the client does not indicate any symptoms associated with coronavirus-19. Ebola Screen: Patient negative for fever greater than or equal to 101.5 degrees Fahrenheit, and additional compatible Ebola Virus Disease symptoms Patient denies exposure to infectious person. Patient denies travel to an Ebola-affected area in the 21 days before illness onset. No symptoms or risks identified at this time. Initial Sepsis Screen: Does the patient meet any 2 criteria? No. Patient's initial sepsis screen is negative. Does the patient have a suspected source of infection? No. Patient's initial sepsis screen is negative. Risk Assessment: Do you want to hurt yourself or someone else? Patient reports no desire to harm self or others. Onset of symptoms is unknown. 18:06 Method Of Arrival: Ambulatory ab2 18:06 Acuity: KASH 3 ab2 Triage Assessment: 18:09 General: Appears in no apparent distress. comfortable, Behavior is calm, cooperative, ab2 appropriate for age. Pain: Denies pain. Musculoskeletal: Reports weakness in entire body throbbing sensation to right arm. Historical: - Allergies: 18:09 No Known Allergies; ab2 - PMHx: 18:09 Atrial Fib; bowel obstruction; Crohn's; Hypertension; ab2 - PSHx: 18:09 Appendectomy; Cholecystectomy; ab2 - Immunization history:: Adult Immunizations up to date. - Social history:: Smoking status: Patient denies any tobacco usage or history of. Screenin:27 Abuse screen: Denies threats or abuse. Nutritional screening: No deficits noted. ss Tuberculosis screening: No symptoms or risk factors identified. 19:41 Fall Risk None identified. ss7 Assessment: 18:26 Reassessment: No changes from previously documented assessment. Patient and/or family ss updated on plan of care and expected duration. Pain level reassessed. Patient is alert, oriented x 3, equal unlabored respirations, skin warm/dry/pink. 19:41 General: Appears in no apparent distress. Behavior is calm, cooperative. Pain: ss7 Complains of pain in right arm. Neuro: No deficits noted. Cardiovascular: Heart tones S1 S2. Respiratory: Breath sounds are clear bilaterally. GI: No deficits noted. : No deficits noted. EENT: No deficits noted. Derm: No deficits noted. Vital Signs: 18:06 BP 141 / 103; Pulse 73; Resp 20; Temp 98.6(TE); Pulse Ox 99% on R/A; Weight 123.83 kg; ab2 Height 5 ft. 3 in. (160.02 cm); Pain 0/10; 19:41 BP 133 / 90; Pulse 78; Resp 18; Pulse Ox 100% ; ss7 21:09 BP 118 / 69; Pulse 71; Resp 18; Pulse Ox 100% on R/A; ss7 18:06 Body Mass Index 48.36 (123.83 kg, 160.02 cm) ab2 ED Course: 18:01 Patient arrived in ED. ja2 18:09 Triage completed. ab2 18:09 Arm band placed on right wrist. ab2 18:26 Patient placed in an exam room, on a stretcher. ss 18:27 Patient has correct armband on for positive identification. Call light in reach. Side ss rails up X 1. 19:36 Omero Sterling PA is PHCP. jr8 19:36 Hardy Yee MD is Attending Physician. jr8 19:41 Nkechi Malone RN is Primary Nurse. ss7 19:41 No provider procedures requiring assistance completed. ss7 21:19 Patient did not have IV access during this emergency room visit. intact. ss7 Administered Medications: No medications were administered Outcome: 21:13 Discharge ordered by . jr8 21:19 Discharged to home ambulatory. ss7 21:19 Condition: good 21:19 Discharge instructions given to patient, Instructed on discharge instructions, follow up and referral plans. Demonstrated understanding of instructions, follow-up care. 21:19 Patient left the ED. ss7 Signatures: Zoila Riddle RN RN ss Omero Sterling PA PA jr8 Bailee Russo ja2 Elvis Harris ab2 Nkechi Malone RN RN ss7 Corrections: (The following items were deleted from the chart) 18:10 18:06 Chief complaint: Patient states: "Yesterday I had a upper scope done for a ab2 stricture and today my right arm is throbbing and I feel weak." ab2
--- NOTE | 2021-12-15 21:14 | EDPHYS ---
Physician Documentation [facility] Name: Dori Guardado Age: 46 yrs Sex: Female : 1975 Arrival Date: 12/15/2021 Time: 18:01 Bed 10 Private MD: ED Physician Hardy Yee HPI: 12/15 21:03 This 46 yrs old Black Female presents to ER via Ambulatory with complaints of Arm Pain. jr8 21:03 This is a 46-year-old female patient that presented to the emergency room with jr8 complaints of right arm pain. Stated that she had a contrast mediated study the other day which infiltrated. Was told to put warm packs on it and follow-up. Patient stated that overall it is improved but she still having pain. Today became slightly dizzy. Yesterday had anesthesia for EGD for stricture.. Historical: - Allergies: 18:09 No Known Allergies; ab2 - PMHx: 18:09 Atrial Fib; bowel obstruction; Crohn's; Hypertension; ab2 - PSHx: 18:09 Appendectomy; Cholecystectomy; ab2 - Immunization history:: Adult Immunizations up to date. - Social history:: Smoking status: Patient denies any tobacco usage or history of. ROS: 21:03 Eyes: Negative for injury, pain, redness, and discharge, ENT: Negative for injury, jr8 pain, and discharge, Neck: Negative for injury, pain, and swelling, Cardiovascular: Negative for chest pain, palpitations, and edema, Respiratory: Negative for shortness of breath, cough, wheezing, and pleuritic chest pain, Abdomen/GI: Negative for abdominal pain, nausea, vomiting, diarrhea, and constipation, Back: Negative for injury and pain, Skin: Negative for injury, rash, and discoloration. 21:03 MS/extremity: Positive for pain, of the right arm. 21:03 Neuro: Positive for dizziness. Exam: 21:03 Constitutional: This is a well developed, well nourished patient who is awake, alert, jr8 and in no acute distress. Cardiovascular: Regular rate and rhythm with a normal S1 and S2. No gallops, murmurs, or rubs. Normal PMI, no JVD. No pulse deficits. Respiratory: Lungs have equal breath sounds bilaterally, clear to auscultation and percussion. No rales, rhonchi or wheezes noted. No increased work of breathing, no retractions or nasal flaring. Abdomen/GI: Soft, non-tender, with normal bowel sounds. No distension or tympany. No guarding or rebound. No evidence of tenderness throughout. Back: No spinal tenderness. No costovertebral tenderness. Full range of motion. Skin: Warm, dry with normal turgor. Normal color with no rashes, no lesions, and no evidence of cellulitis. MS/ Extremity: Pulses equal, no cyanosis. Neurovascular intact. Full, normal range of motion. Mild swelling to the distal bicep without tenderness, erythema, cellulitis. Neuro: Awake and alert, GCS 15, oriented to person, place, time, and situation. Cranial nerves II-XII grossly intact. Motor strength 5/5 in all extremities. Sensory grossly intact. Cerebellar exam normal. Normal gait. Vital Signs: 18:06 BP 141 / 103; Pulse 73; Resp 20; Temp 98.6(TE); Pulse Ox 99% on R/A; Weight 123.83 kg; ab2 Height 5 ft. 3 in. (160.02 cm); Pain 0/10; 19:41 BP 133 / 90; Pulse 78; Resp 18; Pulse Ox 100% ; ss7 21:09 BP 118 / 69; Pulse 71; Resp 18; Pulse Ox 100% on R/A; ss7 18:06 Body Mass Index 48.36 (123.83 kg, 160.02 cm) ab2 MDM: 19:42 Patient medically screened. sidney 21:11 Data reviewed: vital signs, nurses notes, and as a result, I will discharge patient. jr8 Data interpreted: Pulse oximetry: on room air is 100 %. Interpretation: normal. Counseling: I had a detailed discussion with the patient and/or guardian regarding: the historical points, exam findings, and any diagnostic results supporting the discharge/admit diagnosis, the need for outpatient follow up, a family practitioner, to return to the emergency department if symptoms worsen or persist or if there are any questions or concerns that arise at home. 12/15 19:57 Order name: EKG - Nurse/Tech; Complete Time: 20:07 jr8 Administered Medications: No medications were administered Disposition Summary: 12/15/21 21:13 Discharge Ordered Location: Home jr8 Problem: new jr8 Symptoms: have improved jr8 Condition: Stable jr8 Diagnosis - Dizziness and giddiness jr8 - Pain in right upper arm jr8 Followup: jr8 - With: Private Physician - When: 2 - 3 days - Reason: Recheck today's complaints, Continuance of care, Re-evaluation by your physician Discharge Instructions: - Discharge Summary Sheet jr8 - Dizziness jr8 Forms: - Medication Reconciliation Form jr8 - Thank You Letter jr8 - Antibiotic Education jr8 - Prescription Opioid Use jr8 Addendum: 12/17/2021 05:29 Co-signature as Attending Physician, Hardy Yee MD I agree with the assessment and c de plan of care. Signatures: Hardy Yee MD MD cha Roszak, Josh, PA PA jr8 Elvis Harris ab2
[2021-12-15 21:23] VITALS: TEMP 98.6
[2021-12-15 21:24] VITALS: O2SAT 100
[2021-12-15 21:25] VITALS: BP 118/69
--- NOTE | 2021-12-16 07:43 | EKG ---
Test Date: 2021-12-15 Test Time: 20:05:59 Provider Scribe: LEIF MEASUREMENT RESULTS: Intervals: Rate: 67 HI: 164 QRSD: 78 QT: 376 QTc: 397 [place] [facility]: P: 57 HI: 164 QRS: -5 T: 21 INTERPRETIVE STATEMENTS: Normal sinus rhythm Cannot rule out Anterior infarct, age undetermined Abnormal ECG Compared to ECG 12/09/2021 00:39:57 Myocardial infarct finding now present Electronically Signed On 12-16-21 07:41:24 CDT by Matthew Lofton
== END 2021-12-15 21:19 | disposition home or self-care (01) ==
LOC: ER 17:58
DX: M79.621 Pain in right upper arm (principal); R42 Dizziness and giddiness; I10 Essential (primary) hypertension; I48.91 Unspecified atrial fibrillation
CPT/HCPCS: 93005; 99281

== ENCOUNTER 2021-12-31 23:16 | Emergency (ER) | payer OTHER ==
--- OUTSIDE RECORDS SUMMARY | 2021-12-31 23:23 | XMS REPORT | Continuity of Care Document ---
:1975 Author Organization [facility] t Address [address] [place] [address] Care Team Providers Name Role Phone Morena [...] rs active active ity of problems problems [facility] Allergies, Adverse Reactions, Alerts Allergy Allergy Status Severity Reaction(s) Onset Inactive Treating Comm ents Source Name Type Date Date Clinician No Known DA Active U 2020-09 [facility] 0-28 [facility] 00:00: d 00 [facility] No Known DA Active U 2020-09 [facility] Allergie 0-28 [facility] 00:00: d 00 [facility] NO KNOWN Drug Active Univers ALLERGIE Class ity of S [facility] Social History Social Habit Start Date Stop Date Quantity Comments Source Sex Assigned At [birth year] [facility] 00:00:00 00:00:00 [facility] Smoking Status Start Date Stop Date Source Unknown if ever smoked [facility] Medications Ordered Filled Start Stop Current Ordering Indication Dosage Frequency Signature Comments Components Source Medication Medication Date Date Medication? Clinician (SIG) Name Name No known 2020-09 No Univers medications 0-09 ity of 19:54: [address] Pantoprazol Pantoprazol Yes Na Lopez [address] [facility] Sodium e Sodium 8-10 [facility] Ergocalcife Ergocalcife 2018-09- No Na Lopez [address] [facility] rol rol 1-18 0216 [facility] Paxil Paxil Yes Na Lopez [address] [facility] 4-03 in the [facility] 00:[facility]: morning [facility] 00 [facility] Humira Humira Yes Na Lopez not [facility] defined [facility] Aspirin Aspirin Yes Na Lopez not [facility] defined [facility] BusPIRone BusPIRone Yes Na Lopez [address] [facility] HCl HCl [facility][note 3] Metoprolol Metoprolol Yes Na Lopez [address] [facility] Tartrate Tartrate with food [facility] Vital Signs Vital Name Observation Time Observation Value Comments Source Systolic blood 2021-07-04 00:50:00 180 mm[Hg] Univer sity of pressure [facility] Diastolic blood 2021-07-04 00:50:00 110 mm[Hg] [facility] Heart rate 2021-07-04 00:50:00 79 /min [facility] Body temperature 2021-07-04 00:50:00 36.67 Gem [facility] Respiratory rate 2021-07-04 00:50:00 18 /min [facility] Body weight 2021-07-04 00:50:00 121.564 kg [facility] Oxygen saturation in 2021-07-04 00:50:00 99 /min [facility] blood by [facility] Pulse oximetry Branch Procedures Procedure Date / Time Performed Performing Clinician Marta e XR CHEST 1 VW 2021-07-04 01:14:37 Raissa Tran [facility] NOTICE OF PRIVACY 2021-07-04 00:45:31 Doctor Unassigned, No [facility] Name [facility] Branch CONSENT/REFUSAL FOR 2021-07-04 00:45:10 Doctor Unassigned, [facility] DIAGNOSIS AND Name Medical Branch TREATMENT Encounters Start End Encounter Admission Attending Care Care Encounter Source Date/Time Date/Time Type Type Clinicians Facility Department ID 2021-10-20 Outpatient Lopez, Na STLMLC STLMLC [id number] [facility] 14:09:55 [id number] [facility] 2021-10-20 Outpatient Lopez, Na STLMLC STLMLC [id number] [facility] [address] 13:47:22 [id number] [facility] 2021-10-20 Outpatient Lopez, Na STLMLC STLMLC [id number] [facility] [address] 12:29:04 [id number] [facility] 2021-10-20 Outpatient Lopez, Na STLMLC STLMLC [id number] [facility] [address] 12:03:44 [id number] [facility] 2021-10-20 Outpatient Lopez, Na STLMLC STLMLC [id number] [facility] [address] 12:03:05 [id number] [facility] 2021-10-20 Outpatient Lopez, Na STLMLC STLMLC [id number] [facility] 11:43:49 [id number] [facility] 2021-10-20 Outpatient Lopez, Na STLMLC STLMLC [id number] [facility] [address] 11:35:56 [id number] [facility] 2021-10-20 Outpatient Lopez, Na STLMLC STLMLC [id number] [facility] 11:18:09 [id number] [facility] 2021-10-20 Outpatient Lopez, Na STLMLC STLMLC [id number] [facility] 11:04:54 [id number] [facility] 2021-10-20 Outpatient Lopez, Na STLMLC STLMLC [id number] [facility] 11:04:25 [id number] [facility] 2021-11-15 2021-11-15 ambulatory STLMLC [facility]LML[facility] [id number] [facility] 2021-11-11 2021-11-11 ambulatory STLMLC [facility]LMLC [id number] [facility] 2021-09-28 2021-09-28 ambulatory STLMLC [facility]LML[facility] [id number] [facility] 2021-08-27 2021-08-27 ambulatory STLMLC [facility]LMLC [id number] [facility] 2021-08-04 2021-08-04 ambulatory STLMLC [facility]LMLC [id number] [facility] 2021-08-02 2021-08-02 ambulatory STLMLC [facility]LMLC [id number] [facility] 2021-07-22 2021-07-22 Outpatient Vanesa Nunez HCAPM RADI LA5 [id number] [facility] 08:00:00 08:00:00 [id number] [facility] 2021-07-22 2021-07-22 Outpatient Vanesa Nunez HCAPM RADI LA0 [id number] [facility] 07:26:00 07:26:00 63 [facility] 2021-07-03 2021-07-03 Emergency Marc, [facility] [id number] Univers 19:47:00 21:16:00 Raissa Alvarez [id number] [facility] [id number] [facility] [id number] [place] [address] Branch 2021-07-03 2021-07-03 Emergency X [place] ERT [id number] Univers 19:47:00 19:47:00 ity [facility] 2021-06-07 2021-06-07 Outpatient STLMLC [facility]LMLC [id number] [facility] 2021-05-06 2021-05-06 Outpatient STLMLC [facility] [id number] [facility] 2021-04-28 2021-04-28 Outpatient STLMLC ST[facility] [id number] [facility] 2021-04-27 2021-04-27 Outpatient STLMLC STLC [id number] [facility] 2021-03-15 2021-03-15 Outpatient STLMLC STLC [id number] [facility] 2021-01-04 2021-01-04 Out[facility] [id number] [facility] 2020-11-03 2020-11-03 Out[facility] [id number] [facility] 2020-08-03 2020-08-03 Outpatient STLMLC [facility] [id number] [facility] 2020-05-04 2020-05-04 [facility] [id number] [facility] 10:10:00 10:10:00 t [employer] s - [employer] [facility] l Medicine Outpati ent Clinics 2020-05-01 2020-05-01 [facility] [id number] 09:40:00 09:40:00 t [employer] s - [employer] [facility] l Medicine Outpati ent Clinics 2020-02-19 2020-02-19 [facility] [id number] 16:06:00 16:06:00 t [facility] [employer] [facility] l Medicine Outpati ent Clinics 2019-12-12 2019-12-12 [facility] [id number] 15:41:00 15:41:00 t [place] [employer] [facility] Medicine Medicine Outpati ent Clinics 2019-09-16 2019-09-16 [facility] [id number] 14:40:00 14:40:00 t [place] [employer] [facility] Medicine Outpati ent Clinics 2019-08-15 2019-08-15 [facility] [id number] 09:27:00 09:27:00 t [place] [employer] [facility] Medicine Outpati ent Clinics 2019-08-12 2019-08-12 [facility] [id number] 09:00:00 09:00:00 t [place] [employer] [facility] Medicine Outpati ent Clinics 2019-07-31 2019-07-31 [facility] [id number] 11:46:00 11:46:00 t [place] [employer] [facility] Medicine Outpati ent Clinics 2019-07-29 2019-07-29 [facility] [id number] [address] 09:40:00 09:40:00 t [employer] [facility] Medicine Outpati ent Clinics 2019-06-02 2019-06-02 [facility] [id number] 09:38:00 09:38:00 [facility] 2019-05-31 2019-05-31 [facility] [id number] [address] 11:30:00 11:30:00 [facility] l Outpati ent Clinics 2018-01-19 2018-01-19 [facility] [id number] 08:11:00 08:11:00 t [place] [employer] [facility] Medicine Outpati ent Clinics 2018-01-18 2018-01-18 [facility] [id number] 10:15:00 10:15:[address] [facility] 2017-12-26 2017-12-26 [facility] [id number] 09:30:00 09:30:[address] [facility] Results Test Description Test Time Test Comments Results Result Comments Source SARS-CoV-2 (COVID-19), RT-PCR/TMA 2021-12-10 07:26:55 Test Item Value Reference Range Interpretation Comme nts SARS-CoV-2 INTERPRETATION NEGATIVE SEE NOTE S ARS-CoV-2 RNA NOT (test code = 13496) DETECTED Negative results do not preclude SARS-C [...] ORDER CODE 3509. SOURCE (test code = 27997) NASOPHARYNGEAL Note: Methodology is Ro Charito Real-Time [...] are provided by method given in report:https:// [email or web address]/cl inicians/client -communications/ Alternatively, see downloadable PDF fact sheet at:[email or web address]. [email or web address]/COVID- 19-RT-PCR UNLESS OTHERWISE INDICATED, ALL TESTING PERFORMED ATCLINICAL PATH OLOGY LABORATORIES, [facility] [address] [place], [place] [address] LABORATORY DIRE CTOR: PRUDENCE SOLIS M.D. CLIA NUMBER [id number] [facility] [place]. [id number] - CT ABD PELVIS [id number] 09:50:00 [facility] 1975 Sex: F Name: SHE FITZGERALD [facility] : 1975Age/S: 46 / F [id number] [address] Unit #: [id number] Loc: [place] [address] Phys: Vanesa Nunez MD Acct: [id number] Dis Date: Status: REG CLI PHONE#: [phone] Exam Date: 07/22/2021917 FAX #: Reason:CROHNS DISEASE, UNSPECIFIED, WITHOUT COMPLICATI EXAMS: CPT: [id number] CT ABD PELVIS W/CONT 99307 HISTORY: CROHN'S DISEASE, UNSPECIFIED, WITHOUT COMPLICATIONS TECHNIQUE: [...] 1 Signed Report (CONTINUED) Name: SHE FERNANDEZ Tyrone : 1975 Age/S: 46 / F [id number] [address] Unit #: [id number] Loc: [place] [address] Phys: Vanesa Nunez MD Acct: [id number] Dis Date: Status: REG CLI PHONE #: [phone] Exam Date: 07/22/2021917 FAX #: Reason: CROHNS DISEASE, UNSPECIFIED, WITHOUT COMPLICATI EXAMS: CPT:[id number] CT ABD PELVIS W/CONT 50447 <Continued> IMPRESSION: 1. There is mild diffuse thickening of the transverse colon andsplenic flexure as well as the distal descending colon and upper sigmoid. There is no pericolonic inflammation. Findings may represent infectious or inflammatory colitis. 2. Status post cholecystectomy. 3. Evidence of right colonic surgery. at 0950 Reported and signed by: Sudhir Calix M.D. CC: Vanesa Nunez MD; Noemy Ly Lopez Technologist:Mukul Ryan, RT(R) CTDI: DLP: Trnscb Date/Time: 07/22/2021 (0950) [id number] Orig Print D/T: S: 07/22/2021 (0901) PAGE 2 Signed Report [id number] 08:27:00 Test Item Value Reference Range Interpretation Comments ISTAT-BUN (test code = BUNP) 8 mg/dL 8-26 N BEDSIDE [id number] 08:27:00 Test Item Value Reference Range Interpretation Comments BEDSIDE CREATININE (test code = 0.6 mg/dL 0.6-1.3 N CREATBED)
[2022-01-01] MEDS ORDERED: FAMOTIDINE 20 MG/2 ML VIAL IV ONE
[2022-01-01] MEDS ORDERED: MORPHINE 4 MG/ML SYR ONE
[2022-01-01] MEDS ORDERED: FAMOTIDINE 20 MG TAB ONE (00:52)
[2022-01-01 01:40] LABS: Absolute Lymphocytes (CBC) 3.6 K/uL (0.7-4.9); Hematocrit 35.2 % (36.0-45.0); Lymphocytes % 35.8 % (15.3-44.8); MPV 8.1 fL (7.6-11.3); RBC Red Blood Cell Count 4.51 M/uL (3.86-4.86)
[2022-01-01 01:54] LABS: BUN Blood Urea Nitrogen 11 mg/dL (7-18); Bicarbonate 25 mmol/L (21-32); Glucose Level 97 mg/dL (74-106); Potassium 3.8 mmol/L (3.5-5.1); Sodium Level 139 mmol/L (136-145); Troponin High Sensitivity 5.2 pg/mL (<58.9)
--- NOTE | 2022-01-01 02:16 | EDPHYS ---
Physician Documentation [facility] Name: Dori Guardado Age: 46 yrs Sex: Female : 1975 Arrival Date: 12/31/2021 Time: 23:19 Bed 3 Private MD: ED Physician Camilo Marie HPI: 12/31 23:26 This 46 yrs old Black Female presents to ER via Unassigned with complaints of Chest ms3 Pain. 23:26 The patient or guardian reports chest pain that is located primarily in the anterior ms3 chest wall, left. Onset: acutely, 2 hour(s) ago. The pain radiates to the left arm. Associated signs and symptoms: The patient has no apparent associated signs or symptoms. The chest pain is described as sharp. Modifying factors: The symptoms are alleviated by nothing. the symptoms are aggravated by nothing. 46-year-old female with past medical history of Crohn's, gastritis, bowel obstruction presents for left-sided chest pain that began 2 hours prior to arrival. Patient states her pain is a 7/10 and radiating down her left arm. Patient states the pain is a sharp burning sensation. Patient denies shortness of breath, nausea, vomiting, diaphoresis. Patient states the pain began after attending a drag show with her friends tonight and waving money in the air.. 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 - Social history:: Smoking status: Patient denies any tobacco usage or history of. ROS: 23:26 Constitutional: Negative for fever, and chills. ENT: Negative for injury, pain, and ms3 discharge, Respiratory: Negative for shortness of breath, cough, wheezing, and pleuritic chest pain, Abdomen/GI: Negative for abdominal pain, nausea, vomiting, diarrhea, and constipation, MS/Extremity: Negative for injury and deformity, Skin: Negative for injury, rash, and discoloration, Psych: Negative for depression, anxiety, suicide ideation, homicidal ideation, and hallucinations. 23:26 Cardiovascular: Positive for chest pain, of the anterior aspect of left upper chest. Exam: 23:26 Constitutional: This is a well developed, well nourished patient who is awake, alert, ms3 and in no acute distress. Neck: Trachea midline, no cervical lymphadenopathy. Supple, full range of motion without nuchal rigidity, or vertebral point tenderness. No Meningismus. Cardiovascular: Regular rate and rhythm with a normal S1 and S2. No gallops, murmurs, or rubs. Normal PMI, no JVD. No pulse deficits. Respiratory: Lungs have equal breath sounds bilaterally, clear to auscultation and percussion. No rales, rhonchi or wheezes noted. No increased work of breathing, no retractions or nasal flaring. Abdomen/GI: Soft, non-tender, with normal bowel sounds. No distension or tympany. No guarding or rebound. No evidence of tenderness throughout. Skin: Warm, dry with normal turgor. Normal color with no rashes, no lesions, and no evidence of cellulitis. MS/ Extremity: Pulses equal, no cyanosis. Neurovascular intact. Full, normal range of motion. Psych: Awake, alert, with orientation to person, place and time. Behavior, mood, and affect are within normal limits. 23:26 Chest/axilla: Inspection: normal, Palpation: tenderness, that is moderate, of the anterior aspect of left upper chest. Vital Signs: 23:20 BP 140 / 96; Pulse 83; Resp 14; Temp 97.8(O); Pulse Ox 100% on R/A; Weight 125.19 kg; vc1 Height 5 ft. 3 in. (160.02 cm); 01/01 02:29 BP 128 / 79; Pulse 83; Resp 16 S; Pulse Ox 99% on R/A; lg3 12/31 23:20 Body Mass Index 48.89 (125.19 kg, 160.02 cm) vc1 MDM: 12/31 23:26 Patient medically screened. ms3 23:26 Differential diagnosis: abnormal EKG, acute myocardial infarction, costochondritis, ms3 pneumonia, pneumothorax, pulmonary embolus. 01/01 03:15 HEART Score: History: Slightly Suspicious (0), ECG: Normal (0), Age: > 45 and < 65 ms3 years (1), Risk Factors: No Risk Factors Known (0), Troponin: < or = 1 x Normal Limit (0), Total Score = 1. Data reviewed: vital signs, nurses notes, lab test result(s), EKG, radiologic studies. Data interpreted: Pulse oximetry: on room air is 99 %. Interpretation: normal. Counseling: I had a detailed discussion with the patient and/or guardian regarding: the historical points, exam findings, and any diagnostic results supporting the discharge/admit diagnosis, lab results, radiology results, the need for outpatient follow up, to return to the emergency department if symptoms worsen or persist or if there are any questions or concerns that arise at home. ED course: Discussed labs, EKG, chest x-ray with patient. Patient follow-up with primary care physician as discussed. All questions were answered. Return cautions discussed include worsening symptoms, or any other concerns. On reevaluation patient was alert and oriented x4, no apparent distress, nontoxic, ambulatory in emergency department. 12/31 23:19 Order name: Basic Metabolic Panel; Complete Time: 02:10 ms3 12/31 23:19 Order name: CBC with Diff; Complete Time: 02:10 ms3 12/31 23:19 Order name: Troponin HS; Complete Time: 02:10 ms3 12/31 23:19 Order name: XRAY Chest (1 view) ms3 12/31 23:19 Order name: EKG; Complete Time: 23:20 ms3 12/31 23:19 Order name: Cardiac monitoring; Complete Time: 23:28 ms3 12/31 23:19 Order name: EKG - Nurse/Tech; Complete Time: 23:28 ms3 12/31 23:19 Order name: IV Saline Lock; Complete Time: 23:44 ms3 12/31 23:19 Order name: Labs collected and sent; Complete Time: 01:17 ms3 12/31 23:19 Order name: O2 Per Protocol; Complete Time: 23:28 ms3 12/31 23:19 Order name: O2 Sat Monitoring; Complete Time: 23:28 ms3 Administered Medications: 00:49 Not Given (no iv accesss): Pepcid (famotidine) 20 mg IVP once; dilute with 10 mL 0.9% lg3 NaCl; give over 2 minutes 00:50 Not Given (no iv accesss): morphine 4 mg IVP once; RASS on ADMIN: Combtv4, Very Agttd3, lg3 Agttd2, Rstlss1, AlertClm0, Drwsy-1, Lt Sdtn-2, Mod Sdtn-3, Dp Sdtn-4, UnArsble-5 00:55 Drug: Pepcid (famotidine) 20 mg Route: PO; lg3 00:55 Follow up: Response: No adverse reaction lg3 00:56 Drug: morphine 4 mg Route: IM; Site: left gluteus; lg3 00:56 Follow up: Response: No adverse reaction; RASS: Alert and Calm (0) lg3 Disposition Summary: 01/01/22 02:15 Discharge Ordered Location: Home ms3 Problem: new ms3 Symptoms: have improved ms3 Condition: Stable ms3 Diagnosis - Chest pain, unspecified ms3 - Unspecified symptoms and signs involving the musculoskeletal system ms3 - Anemia, unspecified ms3 Followup: ms3 - With: Jaziel White MD - When: 2 - 3 days - Reason: Recheck today's complaints Discharge Instructions: - Discharge Summary Sheet ms3 - Anemia ms3 - Nonspecific Chest Pain, Adult, [place]zz[place] ms3 Forms: - Medication Reconciliation Form ms3 - Thank You Letter ms3 - Antibiotic Education ms3 - Prescription Opioid Use ms3 Signatures: Dispatcher [employer] EDNay Ballesteros, RN RN lg3 Camilo Marie DO DO ms3 Cathy Thompson RN RN vc1 Corrections: (The following items were deleted from the chart) 01:29 12/31 23:20 D-DIMER+COAG.LAB.BRZ ordered. EDMS EDMS
--- NOTE | 2022-01-01 02:16 | ER ---
Nurse's Notes [facility] Name: Dori Guardado Age: 46 yrs Sex: Female : 1975 Arrival Date: 12/31/2021 Time: 23:19 Bed 3 Private MD: Diagnosis: Chest pain, unspecified;Unspecified symptoms and signs involving the musculoskeletal system;Anemia, unspecified Presentation: 12/31 23:20 Chief complaint: Patient states: "About 2 hours ago my chest started hurting really vc1 bad. It hurts around to my back and I'm having pain down my left arm.". 23:20 Method Of Arrival: Wheelchair vc1 23:20 Coronavirus screen: At this time, the client does not indicate any symptoms associated vc1 with coronavirus-19. Ebola Screen: No symptoms or risks identified at this time. Initial Sepsis Screen: Does the patient meet any 2 criteria? No. Patient's initial sepsis screen is negative. Does the patient have a suspected source of infection? No. Patient's initial sepsis screen is negative. Risk Assessment: Do you want to hurt yourself or someone else? Patient reports no desire to harm self or others. Onset of symptoms was December 31, 2021 at 21:30. 23:20 Acuity: KASH 3 vc1 Triage Assessment: 23:20 General: Appears uncomfortable, Behavior is anxious. Pain: Complains of pain in vc1 anterior aspect of left upper chest Pain radiates to back and left arm. Neuro: Level of Consciousness is awake, alert, obeys commands, Oriented to person, place, time, situation, Appropriate for age. Cardiovascular: Reports chest pain, Denies nausea, shortness of breath, Patient's skin is warm and dry. Respiratory: Airway is patent Respiratory effort is even, unlabored, Respiratory pattern is regular, symmetrical. GI: No signs and/or symptoms were reported involving the gastrointestinal system. : No signs and/or symptoms were reported regarding the genitourinary system. Derm: Skin is intact, is healthy with good turgor, Skin temperature is warm. Musculoskeletal: No deficits noted. 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 - Social history:: Smoking status: Patient denies any tobacco usage or history of. Screenin:20 Abuse screen: Denies threats or abuse. Nutritional screening: No deficits noted. vc1 Tuberculosis screening: No symptoms or risk factors identified. Fall Risk None identified. Assessment: 23:20 Pain: Pain began 2 hours ago. vc1 01/01 00:32 General: Appears in no apparent distress. uncomfortable, Behavior is calm, cooperative. lg3 Pain: Complains of pain in anterior aspect of left upper chest Pain radiates to left arm and back. Neuro: No deficits noted. Level of Consciousness is awake, alert, obeys commands, Oriented to person, place, time, situation. Cardiovascular: No deficits noted. Reports chest pain, Denies lightheadedness, nausea, shortness of breath. Respiratory: No deficits noted. Airway is patent Trachea midline Respiratory effort is even, unlabored, Respiratory pattern is regular, symmetrical. GI: No deficits noted. No signs and/or symptoms were reported involving the gastrointestinal system. : No deficits noted. No signs and/or symptoms were reported regarding the genitourinary system. EENT: No deficits noted. No signs and/or symptoms were reported regarding the EENT system. Derm: No deficits noted. No signs and/or symptoms reported regarding the dermatologic system. Skin is intact, is healthy with good turgor, Skin is dry. Musculoskeletal: No deficits noted. No signs and/or symptoms reported regarding the musculoskeletal system. Circulation, motion, and sensation intact. Capillary refill < 3 seconds, Range of motion: intact in all extremities. Vital Signs: 12/31 23:20 BP 140 / 96; Pulse 83; Resp 14; Temp 97.8(O); Pulse Ox 100% on R/A; Weight 125.19 kg; vc1 Height 5 ft. 3 in. (160.02 cm); 01/01 02:29 BP 128 / 79; Pulse 83; Resp 16 S; Pulse Ox 99% on R/A; lg3 12/31 23:20 Body Mass Index 48.89 (125.19 kg, 160.02 cm) vc1 ED Course: 12/31 23:19 Patient arrived in ED. kz 23:19 Camilo Marie DO is Attending Physician. ms3 23:20 Arm band placed on left wrist. EKG done per protocol. Performed by ED Staff. vc1 23:20 Patient has correct armband on for positive identification. Placed in gown. Bed in low vc1 position. Call light in reach. Side rails up X2. satellite project site monitor on. Pulse ox on. NIBP on. 23:27 Nay Mcdonald, RN is Primary Nurse. lg3 23:44 Triage completed. vc1 23:45 Inserted saline lock: 22 gauge in left antecubital area, using aseptic technique. as6 04/09 00:01 XRAY Chest (1 view) In Process Unspecified. EDMS 00:32 Patient maintains SpO2 saturation greater than 95% on room air. lg3 01:17 Basic Metabolic Panel Sent. lg3 01:17 CBC with Diff Sent. lg3 01:17 Troponin HS Sent. lg3 02:15 Jaziel White MD is Referral Physician. ms3 02:30 No provider procedures requiring assistance completed. IV discontinued, intact, lg3 bleeding controlled, No redness/swelling at site. Pressure dressing applied. Administered Medications: 00:49 Not Given (no iv accesss): Pepcid (famotidine) 20 mg IVP once; dilute with 10 mL 0.9% lg3 NaCl; give over 2 minutes 00:50 Not Given (no iv accesss): morphine 4 mg IVP once; RASS on ADMIN: Combtv4, Very Agttd3, lg3 Agttd2, Rstlss1, AlertClm0, Drwsy-1, Lt Sdtn-2, Mod Sdtn-3, Dp Sdtn-4, UnArsble-5 00:55 Drug: Pepcid (famotidine) 20 mg Route: PO; lg3 00:55 Follow up: Response: No adverse reaction lg3 00:56 Drug: morphine 4 mg Route: IM; Site: left gluteus; lg3 00:56 Follow up: Response: No adverse reaction; RASS: Alert and Calm (0) lg3 Outcome: 02:15 Discharge ordered by . ms3 02:30 Discharged to home ambulatory. lg3 02:30 Condition: stable 02:30 Discharge instructions given to patient, Instructed on discharge instructions, Demonstrated understanding of instructions. 02:30 Patient left the ED. lg3 Signatures: Dispatcher [employer] Nay Simon, RN RN lg3 Camilo Marie DO DO ms3 Moy Rios RN RN as6 Cathy Thompson RN RN vc1 Kimber Vazquez Corrections: (The following items were deleted from the chart) 01:29 01:17 D-DIMER+COAG.LAB.BRZ drawn and sent. lg3 SHIMA
[2022-01-01 08:42] VITALS: TEMP 97.8
[2022-01-01 08:43] VITALS: BP 128/79; O2SAT 99
--- NOTE | 2022-01-03 11:38 | RAD REPORT ---
EXAM DESCRIPTION: RAD - Chest Single View - 12/31/2021 11:59 pm CLINICAL HISTORY: 46 years Female, CHEST PAIN COMPARISON: Chest x-ray December 09, 2021 FINDINGS: No consolidation. No pneumothorax. No significant pleural effusion. Cardiomediastinal silhouette is unremarkable. Osseous structures are unremarkable. IMPRESSION: No acute findings. Electronically signed by: Guillermo Wilkerson MD 01/01/2022 12:20 AM CDT Due to temporary technical issues with the PACS/Fluency reporting system, reports are being signed by the in house radiologist without review as a courtesy to ensure prompt reporting. The interpreting r adiologist is fully responsible for the content of the report.
== END 2022-01-01 02:30 | disposition home or self-care (01) ==
LOC: ER 23:16
DX: R07.9 Chest pain, unspecified (principal); D64.9 Anemia, unspecified; R29.91 Unspecified symptoms and signs involving the musculoskeletal system
CPT/HCPCS: 36415; 71045; 80048; 84484; 85025; 96372; 99285

== ENCOUNTER 2022-01-03 20:23 | Emergency (ER) | payer OTHER ==
--- OUTSIDE RECORDS SUMMARY | 2022-01-03 20:26 | XMS REPORT | Continuity of Care Document ---
:1975 Author Organization [facility] t Address [address] [place] [address] Care Team Providers Name Role Phone Morena [...] rs active active ity of problems problems [facility] Allergies, Adverse Reactions, Alerts Allergy Allergy Status Severity Reaction(s) Onset Inactive Treating Comm ents Source Name Type Date Date Clinician No Known DA Active U 2020-09 [facility] 00:[facility]: d 00 [facility] No Known DA Active U 2020-09 [facility] Allergie 0-28 [facility] 00:[facility]: d 00 [facility] NO KNOWN Drug Active Univers ALLERGIE Class ity of S [facility] Social History Social Habit Start Date Stop Date Quantity Comments Source Sex Assigned At [birth year] [facility] 00:00:00 00:00:00 [facility] Smoking Status Start Date Stop Date Source Unknown if ever smoked [facility] Medications Ordered Filled Start Stop Current Ordering Indication Dosage Frequency Signature Comments Components Source Medication Medication Date Date Medication? Clinician (SIG) Name Name No known 2020-09 No Univers medications 0-09 ity of 19:54: [address] Pantoprazol Pantoprazol Yes Na Lopez [address] [facility] Sodium e Sodium 8-10 [facility] Ergocalcife Ergocalcife 2018-09- No Na Lopez [address] [facility] rol rol 1-18 0216 [facility] Paxil Paxil Yes Na Lopez [address] [facility] 4-03 in the [facility] morning [facility] Humira Humira Yes Na Lopez not [facility] defined [facility] Aspirin Aspirin Yes Na Lopez not [facility] defined [facility] BusPIRone BusPIRone Yes Na Lopez [address] [facility] HCl HCl [facility] Metoprolol Metoprolol Yes Na Lopez [address] [facility] Tartrate Tartrate with food [facility] Vital Signs Vital Name Observation Time Observation Value Comments Source Systolic blood 2021-07-04 00:50:00 180 mm[Hg] Univer sity of pressure [facility] Diastolic blood 2021-07-04 00:50:00 110 mm[Hg] [facility] Heart rate 2021-07-04 00:50:00 79 /min [facility] Body temperature 2021-07-04 00:50:00 36.67 Gem [facility] Respiratory rate 2021-07-04 00:50:00 18 /min [facility] Body weight 2021-07-04 00:50:[address] [facility] Oxygen saturation in 2021-07-04 00:50:00 99 /min [facility] blood by [facility] Pulse oximetry Branch Procedures Procedure Date / Time Performed Performing Clinician Marta e XR CHEST 1 VW 2021-07-04 01:14:37 Raissa Tran [facility] NOTICE OF PRIVACY 2021-07-04 00:45:31 Doctor Unassigned, No [facility] Name [facility] Branch CONSENT/REFUSAL FOR 2021-07-04 00:45:10 Doctor Unassigned, [facility] DI[facility] AND Name [facility] TREATMENT Encounters Start End Encounter Admission Attending Care Care Encounter Source Date/Time Date/Time Type Type Clinicians Facility Department ID 2021-10-20 Outpatient Lopez, Na STLMLC STLMLC [id number] [facility] 14:09:55 [id number] [facility] 2021-10-20 Outpatient Lopez, Na STLMLC STLMLC [id number] [facility] 13[facility]47:22 [id number] [facility] 2021-10-20 Outpatient Lopez, Na STLMLC STLMLC [id number] [facility] [address] 12[facility]29:04 [id number] [facility] 2021-10-20 Outpatient Lopez, Na STLMLC STLMLC [id number] [facility] [address] 12:03:44 [id number] [facility] 2021-10-20 Outpatient Lopez, Na STLMLC STLMLC [id number] [facility] [address] 12:03:05 [id number] [facility] 2021-10-20 Outpatient Lopez, Na STLMLC STLMLC [id number] [facility] [address] 11:43:49 [id number] [facility] 2021-10-20 Outpatient Lopez, Na STLMLC STLMLC [id number] [facility] 11:35:56 [id number] [facility] 2021-10-20 Outpatient Lopez, Na STLMLC STLMLC [id number] [facility] 11:18:09 [id number] [facility] 2021-10-20 Outpatient Lopez, Na STLMLC STLMLC [id number] [facility] 11:04:54 [id number] [facility] 2021-10-20 Outpatient Lopez, Na STLMLC STLMLC [id number] [facility] 11:04:25 [id number] [facility] 2021-11-15 2021-11-15 ambulatory STLMLC [facility] [id number] [facility] 2021-11-11 2021-11-11 ambulatory STLMLC [facility] [id number] [facility] 2021-09-28 2021-09-28 ambulatory STLMLC [facility] [id number] [facility] 2021-08-27 2021-08-27 ambulatory STLMLC [facility] [id number] [facility] 2021-08-04 2021-08-04 ambulatory STLMLC [facility] [id number] [facility] 2021-08-02 2021-08-02 ambulatory STLMLC [facility] [id number] [facility] 2021-07-22 2021-07-22 Outpatient Vanesa Nunez HCAPM RADI LA5 [id number] [facility] 08:00:00 08:00:00 [id number] [facility] 2021-07-22 2021-07-22 Outpatient Vanesa Nunez HCAPM RADI LA0 [id number] [facility] 07:26:00 07:26:00 63 [facility] 2021-07-03 2021-07-03 Emergency Marc, [facility] [id number] Univers 19:47:00 21:16:00 [id number] [facility] [id number] [facility] [id number] [place] [address] Branch 2021-07-03 2021-07-03 Emergency X [facility] ERT [id number] Univers 19:47:00 19:47:00 ity [facility] 2021-06-07 2021-06-07 Outpatient STLMLC [facility] [id number] [facility] 2021-05-06 2021-05-06 Outpatient [facility]LMLC [facility] [id number] [facility] 2021-04-28 2021-04-28 Outpatient [facility]MLC [facility] [id number] [facility] 2021-04-27 2021-04-27 Outpatient [facility]LMLC [facility] [id number] [facility] 2021-03-15 2021-03-15 Outpatient [facility]LMLC [facility] [id number] [facility] 2021-01-04 2021-01-04 [id number] 2020-11-03 2020-11-03 [facility] [id number] [facility] 2020-08-03 2020-08-03 Outpatient [facility]LMLC [facility] [id number] [facility] 2020-05-04 2020-05-04 [facility] [id number] [address] 10:10:00 10:10:00 t [employer] [facility] - RIG[facility] Medicine Outpati ent Clinics 2020-05-01 2020-05-01 [facility] [id number] 09:40:00 09:40:00 t [employer] - RIGID [facility] Medicine Outpat[facility] ent Clinics 2020-02-19 2020-02-19 [facility] [id number] 16:06:00 16:06:00 t [facility] [employer] [facility] Medicine Outpati ent Clinics 2019-12-12 2019-12-12 [facility] [id number] 15:41:00 15:41:00 t [place] [employer] [facility] Medicine Medicine Outpati ent Clinics 2019-09-16 2019-09-16 [facility] [id number] 14:40:00 14:40:00 t [place] [employer] [facility] Medicine Outpati ent Clinics 2019-08-15 2019-08-15 [facility] [id number] 09:27:00 09:27:00 t [place] [employer] [facility] Medicine Outpati ent Clinics 2019-08-12 2019-08-12 [facility] [id number] 09:00:00 09:00:00 t [place] [facility] Medicine Outpati ent Clinics 2019-07-31 2019-07-31 [facility] [id number] 11:46:00 11:46:00 t [place] [facility] Medicine Outpati ent Clinics 2019-07-29 2019-07-29 [facility] [id number] [address] 09:40:00 09:40:00 t [employer] [facility] Medicine Outpati ent Clinics 2019-06-02 2019-06-02 [facility] [id number] 09:38:00 09:38:00 [facility] 2019-05-31 2019-05-31 [facility] [id number] 11:30:00 11:30:00 [facility] ent Clinics 2018-01-19 2018-01-19 [facility] [id number] 08:11:00 08:11:00 t [place] [facility] Medicine Outpati ent Clinics 2018-01-18 2018-01-18 [facility] [id number] 10:15:00 10:15:[address] [facility] 2017-12-26 2017-12-26 [facility] [id number] 09:30:00 09:30:00 [facility] Results Test Description Test Time Test Comments Results Result Comments Source SARS-CoV-2 (COVID-19), RT-PCR/TMA 2021-12-10 07:26:55 Test Item Value Reference Range Interpretation Comme nts SARS-CoV-2 INTERPRETATION NEGATIVE SEE NOTE S ARS-CoV-2 RNA NOT (test code = 17898) DETECTED Negative results do not preclude SARS-C [...] ORDER CODE 3509. SOURCE (test code = 43627) NASOPHARYNGEAL Note: Methodology is Ro Charito Real-Time [...] are provided by method given in report:https:// www.Glam .fr [place]/cl inicians/client -communications/ Alternatively, see downloadable PDF fact sheet at:https://www. Glam .fr [place]/COVID- 19-RT-PCR UNLESS OTHERWISE INDICATED, ALL TESTING PERFORMED ATCLINICAL PATH [facility], [facility]. [address] [place], [place] [address] LABORATORY DIRE CTOR: PRUDENCE SOLIS M.D. CLIA NUMBER [id number] [facility] [place]. [id number] - CT ABD PELVIS [id number] 09:50:00 [facility] 1975 Sex: F Name: SHE FITZGERALD [facility] : 1975Age/S: 46 / F [id number] Unit #: [id number] Loc: [place] [address] Phys: Vanesa Nunez MD Acct: [id number] Dis Date: Status: REG CLI PHONE#: [phone] Exam Date: 07/22/2021917 FAX #: Reason:CROHNS DISEASE, UNSPECIFIED, WITHOUT COMPLICATI EXAMS: CPT: [id number] CT ABD PELVIS W/CONT 11850 HISTORY: CROHN'S DISEASE, UNSPECIFIED, WITHOUT COMPLICATIONS TECHNIQUE: [...] 1 Signed Report (CONTINUED) Name: SHE FERNANDEZ [place] : 1975 Age/S: 46 / F [id number] Unit #: [id number] Loc: [place] [address] Phys: Vanesa Nunez MD Acct: [id number] Dis Date: Status: REG CLI PHONE #: [phone] Exam Date: 07/22/2021917 FAX #: Reason: CROHNS DISEASE, UNSPECIFIED, WITHOUT COMPLICATI EXAMS: CPT:[id number] CT ABD PELVIS W/CONT 63218 <Continued> IMPRESSION: 1. There is mild diffuse [...] (0950) [email or web address] Orig Print D/T: S: 07/22/2021 (0917) PAGE 2 Signed Report [id number] 08:27:00 Test Item Value Reference Range Interpretation Comments ISTAT-BUN (test code = BUNP) 8 mg/dL 8-26 N BEDSIDE [id number] 08:27:00 Test Item Value Reference Range Interpretation Comments BEDSIDE CREATININE (test code = 0.6 mg/dL 0.6-1.3 N CREATBED)
[2022-01-03 23:22] LABS: Urine Blood 1+ (Negative); Urine Glucose Negative (Negative); Urine Protein Negative (Negative); Urine Specific Gravity >=1.030 (1.005-1.030); Urine pH 5.5 (5.0-7.0)
[2022-01-03] MEDS ORDERED: MORPHINE 4 MG/ML SYR ONE (23:29)
[2022-01-03] MEDS ORDERED: FAMOTIDINE 20 MG/2 ML VIAL IV ONE (23:30)
[2022-01-03] MEDS ORDERED: NA CHLORIDE 0.9% 1,000 ML ONE (23:30)
[2022-01-03] MEDS ORDERED: ONDANSETRON 4 MG/2 ML VIAL ONE (23:30)
[2022-01-03 23:38] LABS: Barbiturates NEGATIVE (NEGATIVE); Benzodiazepines NEGATIVE (NEGATIVE); Cocaine NEGATIVE (NEGATIVE); METHAMPHETAM NEGATIVE (NEGATIVE); Methadone NEGATIVE (NEGATIVE); Opiates NEGATIVE (NEGATIVE); Phencyclidine NEGATIVE (NEGATIVE); THC Cannibis NEGATIVE (NEGATIVE)
[2022-01-04 00:51] LABS: Absolute Lymphocytes (CBC) 3.4 K/uL (0.7-4.9); Hematocrit 37.7 % (36.0-45.0); Lymphocytes % 49.2 % (15.3-44.8); MPV 8.1 fL (7.6-11.3)
[2022-01-04 00:54] LABS: Protime INR 1.06
[2022-01-04 01:11] LABS: ALT/SGPT 25 U/L (12-78); AST/SGOT 13 U/L (15-37); Albumin 3.6 g/dL (3.4-5.0); Alkaline Phosphatase 68 U/L (45-117); BUN Blood Urea Nitrogen 10 mg/dL (7-18); Bicarbonate 26 mmol/L (21-32); Bilirubin Direct 0.2 mg/dL (0-0.2); Bilirubin Total 0.6 mg/dL (0.2-1.0); Creatine Phosphokinase 174 U/L (26-192); Glucose Level 88 mg/dL (74-106); Lipase 39 U/L (73-393); NT PRO-BNP 31 pg/mL (<125); Potassium 3.8 mmol/L (3.5-5.1); Protein, Total 8.7 g/dL (6.4-8.2); Sodium Level 140 mmol/L (136-145); Troponin High Sensitivity 4.1 pg/mL (<58.9)
--- NOTE | 2022-01-04 03:23 | EDPHYS ---
Physician Documentation [facility] Name: Dori Guardado Age: 46 yrs Sex: Female : 1975 Arrival Date: 01/03/2022 Time: 20:30 Bed 7 Private MD: ED Physician Carlos Alberto Rios HPI: 01/03 23:04 This 46 yrs old Black Female presents to ER via Ambulatory with complaints of Arm Pain, mh7 Back Pain. 23:05 The patient or guardian reports chest pain that is located primarily in the anterior mh7 chest wall, left. Onset: 1 week(s) ago. The pain radiates to the left arm, back. Associated signs and symptoms: Pertinent positives: abdominal pain, nausea, Pertinent negatives: cough, diaphoresis, dizziness, headache, lower extremity pain, lower extremity swelling, lightheadedness, near syncope, palpitations, recent travel, shortness of breath, syncope, vomiting. The chest pain is described as aching, burning. Duration: The patient or guardian reports multiple episodes, that are intermittent, that wax and wane, with no pattern. Modifying factors: The symptoms are alleviated by nothing. the symptoms are aggravated by eating. Severity of pain: At its worst the pain was moderate today, 10 hour(s) ago, in the emergency department the pain has improved moderately. The patient has been recently seen at the [facility] Emergency Department, last week. 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 - Social history:: Smoking status: Patient denies any tobacco usage or history of. ROS: 01/03 23:05 Constitutional: Negative for fever, chills, and weight loss, Eyes: Negative for injury, mh7 pain, redness, and discharge, ENT: Negative for injury, pain, and discharge, Neck: Negative for injury, pain, and swelling, Respiratory: Negative for shortness of breath, cough, wheezing, and pleuritic chest pain, : Negative for injury, bleeding, discharge, and swelling, MS/Extremity: Negative for injury and deformity, Skin: Negative for injury, rash, and discoloration, Neuro: Negative for headache, weakness, numbness, tingling, and seizure, Psych: Negative for depression, anxiety, suicide ideation, homicidal ideation, and hallucinations, Allergy/Immunology: Negative for hives, rash, and allergies, Endocrine: Negative for neck swelling, polydipsia, polyuria, polyphagia, and marked weight changes, Hematologic/Lymphatic: Negative for swollen nodes, abnormal bleeding, and unusual bruising. Exam: 23:05 Head/Face: Normocephalic, atraumatic. Eyes: Pupils equal round and reactive to light, mh7 extra-ocular motions intact. Lids and lashes normal. Conjunctiva and sclera are non-icteric and not injected. Cornea within normal limits. Periorbital areas with no swelling, redness, or edema. Neck: Trachea midline, no thyromegaly or masses palpated, and no cervical lymphadenopathy. Supple, full range of motion without nuchal rigidity, or vertebral point tenderness. No Meningismus. 23:05 Cardiovascular: Regular rate and rhythm with a normal S1 and S2. No gallops, murmurs, or rubs. Normal PMI, no JVD. No pulse deficits. Respiratory: Lungs have equal breath sounds bilaterally, clear to auscultation and percussion. No rales, rhonchi or wheezes noted. No increased work of breathing, no retractions or nasal flaring. 23:05 Skin: Warm, dry with normal turgor. Normal color with no rashes, no lesions, and no evidence of cellulitis. MS/ Extremity: Pulses equal, no cyanosis. Neurovascular intact. Full, normal range of motion. Neuro: Awake and alert, GCS 15, oriented to person, place, time, and situation. Cranial nerves II-XII grossly intact. Motor strength 5/5 in all extremities. Sensory grossly intact. Cerebellar exam normal. Normal gait. Psych: Awake, alert, with orientation to person, place and time. Behavior, mood, and affect are within normal limits. 23:05 Constitutional: The patient appears in no acute distress, alert, awake, uncomfortable. 23:05 Chest/axilla: Inspection: normal, Palpation: tenderness, that is moderate, of the anterior aspect of left upper chest, that partially reproduces the patient's complaints, Axilla: are normal, Lymph nodes: lymphadenopathy is not appreciated. 23:05 Abdomen/GI: Inspection: obese Bowel sounds: normal, in all quadrants, Palpation: moderate abdominal tenderness, in the epigastric area, mass, is not appreciated, rebound tenderness, is not appreciated, voluntary guarding, is not appreciated, involuntary guarding, is not appreciated, no appreciated organomegaly, Rectal exam: the exam is deferred, because of patient request, Indicators: McBurney's point is not tender, Morales's sign is negative, Rovsing's sign is negative, Obturator sign is negative, Psoas sign is negative, Liver: no appreciated palpable abnormalities, Hernia: not appreciated. 23:05 Back: normal spinal alignment noted, CVA tenderness, is absent, vertebral tenderness, is not appreciated, muscle spasm, is not present, tenderness upper back. Vital Signs: 21:39 BP 134 / 102; Pulse 77; Resp 18; Temp 97.3; Pulse Ox 100% on R/A; Weight 125.19 kg (R); ll3 Height 5 ft. 3 in. (160.02 cm) (R); Pain 6/10; 04/12 00:53 BP 134 / 80; Pulse 78; Resp 18; Pulse Ox 100% on R/A; Pain 6/10; lp1 01:30 BP 130 / 83; Pulse 71; Resp 18; Pulse Ox 100% on R/A; lp1 02:30 BP 135 / 85; Pulse 70; Resp 18; Pulse Ox 99% on R/A; lp1 03:34 BP 135 / 96; Pulse 74; Resp 18; Pulse Ox 100% on R/A; lp1 / 21:39 Body Mass Index 48.89 (125.19 kg, 160.02 cm) ll3 MDM: 03:19 Differential diagnosis: acute myocardial infarction, acute pericarditis, anxiety, mh7 coronary artery disease chest wall pain, congestive heart failure costochondritis, esophagitis, gastritis, gastroesophageal reflux disease (GERD), pancreatitis, peptic ulcer disease, pneumonia, pneumothorax, pulmonary embolus. HEART Score: History: Slightly Suspicious (0), ECG: Normal (0), Age: > 45 and < 65 years (1), Risk Factors: No Risk Factors Known (0), Troponin: < or = 1 x Normal Limit (0), Total Score = 1. Data reviewed: vital signs, nurses notes, old medical records, lab test result(s), amylase and lipase, cardiac enzymes, CBC, electrolytes, urinalysis, EKG, radiologic studies, CT scan. Data interpreted: Pulse oximetry: on room air is 100 %. Interpretation: normal. Counseling: I had a detailed discussion with the patient and/or guardian regarding: the historical points, exam findings, and any diagnostic results supporting the discharge/admit diagnosis, lab results, radiology results, the need for outpatient follow up, to return to the emergency department if symptoms worsen or persist or if there are any questions or concerns that arise at home. Response to treatment: the patient's symptoms have resolved after treatment, the patient's blood pressure is in an acceptable range, mental status has returned to baseline, the patient no longer shows bradycardia, the patient is not short of breath, the patient is not tachycardic, the patient's pain is gone, the patient's temperature has normalized. 03:22 Patient medically screened. 01/03 22:58 Order name: Basic Metabolic Panel; Complete Time: :01/03 22:58 Order name: CBC with Diff; Complete Time: 01:01/03 22:58 Order name: LFT's; Complete Time: 01/03 22:58 Order name: Magnesium; Complete Time: 01/03 22:58 Order name: NT PRO-BNP; Complete Time: :01/03 22:58 Order name: PT-INR; Complete Time: :01/03 22:58 Order name: Troponin HS; Complete Time: :01/03 22:58 Order name: Lipase; Complete Time: :01/03 22:58 Order name: UDS; Complete Time: 23:40 01/03 22:58 Order name: CPK; Complete Time: :01/03 23:22 Order name: Urine Dipstick-Ancillary; Complete Time: 23:40 EDMS 01/03 23:22 Order name: Urine --Ancillary (enter results); Complete Time: 23:40 lp1 01/04 01:18 Order name: CT Chest For PE Angio mh01/04 01:18 Order name: CT Abd/Pelvis - IV Contrast Only [facility] 01/03 22:58 Order name: EKG; Complete Time: 22:59 [facility] 01/03 22:58 Order name: Cardiac monitoring; Complete Time: 00:53 [facility] 01/03 22:58 Order name: EKG - Nurse/Tech; Complete Time: 00:05 [facility] 01/03 22:58 Order name: IV Saline Lock; Complete Time: 00:53 [facility] 01/03 22:58 Order name: Labs collected and sent; Complete Time: 00:53 [facility] 01/03 22:58 Order name: O2 Per Protocol; Complete Time: 00:05 [facility] 01/03 22:58 Order name: O2 Sat Monitoring; Complete Time: 00:05 [facility] 01/03 22:58 Order name: Urine Dipstick-Ancillary (obtain specimen); Complete Time: 23:22 [facility] Administered Medications: 00:45 Drug: morphine 4 mg Route: IVP; Site: left antecubital; lp1 01:51 Follow up: Response: Pain is decreased lp1 00:45 Drug: Zofran (Ondansetron) 4 mg Route: IVP; Site: left antecubital; lp1 01:51 Follow up: Response: No adverse reaction lp1 00:45 Drug: NS 0.9% 1000 ml Route: IV; Rate: 1000 ml; Site: left antecubital; lp1 01:50 Follow up: IV Status: Completed infusion; IV Intake: 1000ml lp1 00:45 Drug: Pepcid (famotidine) 20 mg Route: IVP; Site: left antecubital; lp1 01:51 Follow up: Response: No adverse reaction lp1 Disposition Summary: 01/04/22 03:22 Discharge Ordered Location: Home [facility] Problem: an ongoing problem [facility] Symptoms: have improved [facility] Condition: Stable [facility] Diagnosis - Chest pain, unspecified [facility] - Upper abdominal pain, unspecified [facility] Followup: [facility] - With: Private Physician - When: 1 - 2 days - Reason: Worsening of condition, Recheck today's complaints, Continuance of care, Re-evaluation by your physician Followup: [facility] - With: Vanesa Nunez MD - When: 1 - 2 days - Reason: Worsening of condition, Recheck today's complaints, Continuance of care, Re-evaluation by your physician Discharge Instructions: - Discharge Summary Sheet [facility] - Abdominal Pain, Adult, [id number] [facility] - Nonspecific Chest Pain, Adult, [id number] [facility] Forms: - Medication Reconciliation Form [facility] - Thank You Letter [facility] - Antibiotic Education [facility] - Prescription Opioid Use [facility] Signatures: Dispatcher [employer] EDTracy Coronado RN RN lp1 Carlos Alberto Rios MD MD 7 Ana Rosa Flower RN RN ll3
--- NOTE | 2022-01-04 03:23 | ER ---
Nurse's Notes [facility] Name: Dori Guardado Age: 46 yrs Sex: Female : 1975 Arrival Date: 01/03/2022 Time: 20:30 Bed 7 Private MD: Diagnosis: Chest pain, unspecified;Upper abdominal pain, unspecified Presentation: 01/03 21:39 Chief complaint: Patient states: States was here on Monday for the same thing and ll3 didn't see anything, c/o of CP, left arm and left leg pain, pain is 6/10, states pain comes and goes, states it hurts bad when eating. Coronavirus screen: At this time, the client does not indicate any symptoms associated with coronavirus-19. Ebola Screen: No symptoms or risks identified at this time. Initial Sepsis Screen: Does the patient meet any 2 criteria? No. Patient's initial sepsis screen is negative. Does the patient have a suspected source of infection? No. Patient's initial sepsis screen is negative. Risk Assessment: Do you want to hurt yourself or someone else? Patient reports no desire to harm self or others. Onset of symptoms was December 31, 2021. 21:39 Method Of Arrival: Ambulatory ll3 21:39 Acuity: KASH 3 ll3 Triage Assessment: 21:42 General: Appears uncomfortable, Behavior is calm, cooperative. Pain: Complains of pain ll3 in CP, L arm, L leg Pain radiates to back Pain currently is 6 out of 10 on a pain scale. Quality of pain is described as throbbing, Pain began Monday Is intermittent, Aggravated by eating. Cardiovascular: Reports chest pain, Denies shortness of breath, Patient's skin is warm and dry. Respiratory: Respiratory effort is even, unlabored, Respiratory pattern is regular, symmetrical. GI: Reports nausea. Derm: Skin is pink, warm \T\ dry. Musculoskeletal: Circulation, motion, and sensation intact. Range of motion: intact in all extremities. 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 - Social history:: Smoking status: Patient denies any tobacco usage or history of. Screenin:06 Abuse screen: Denies threats or abuse. Denies injuries from another. Nutritional lp1 screening: No deficits noted. Tuberculosis screening: No symptoms or risk factors identified. Fall Risk None identified. Assessment: 01/03 23:30 General: Appears in no apparent distress. Behavior is calm, cooperative, appropriate lp1 for age. Pain: Complains of pain in left scapular area, right scapular area, thoracic area and epigastric area Pain currently is 6 out of 10 on a pain scale. Quality of pain is described as aching. Neuro: Level of Consciousness is awake, alert, obeys commands, Oriented to person, place, time, situation. Cardiovascular: Patient's skin is warm and dry. Respiratory: Respiratory effort is even, unlabored. GI: Abdomen is non-distended. : No signs and/or symptoms were reported regarding the genitourinary system. EENT: No signs and/or symptoms were reported regarding the EENT system. Derm: Skin is intact, Skin is dry, Skin is normal. Musculoskeletal: No deficits noted. 01/04 01:50 Reassessment: patient transported to CT. lp1 03:00 Reassessment: Patient appears in no apparent distress at this time. Patient and/or lp1 family updated on plan of care and expected duration. Pain level reassessed. reports some relief of symptoms from medication administered; No further needs. Vital Signs: 01/03 21:39 BP 134 / 102; Pulse 77; Resp 18; Temp 97.3; Pulse Ox 100% on R/A; Weight 125.19 kg (R); ll3 Height 5 ft. 3 in. (160.02 cm) (R); Pain 03/04; 01/04 00:53 BP 134 / 80; Pulse 78; Resp 18; Pulse Ox 100% on R/A; Pain 03/04; lp1 01:30 BP 130 / 83; Pulse 71; Resp 18; Pulse Ox 100% on R/A; lp1 02:30 BP 135 / 85; Pulse 70; Resp 18; Pulse Ox 99% on R/A; lp1 03:34 BP 135 / 96; Pulse 74; Resp 18; Pulse Ox 100% on R/A; lp1 04/11 21:39 Body Mass Index 48.89 (125.19 kg, 160.02 cm) ll3 ED Course: 01/03 20:30 Patient arrived in ED. bp1 21:42 Triage completed. ll3 21:42 Arm band placed on right wrist. ll3 21:51 EKG completed in triage. Results shown to MD. ll3 22:40 Carlos Alberto Rios MD is Attending Physician. mh7 23:04 Tracy Joshua RN is Primary Nurse. lp1 23:22 UDS Sent. lp1 04 00:00 Missed attempt(s): 20 gauge in right forearm. lp1 00:04 Missed attempt(s): 18 gauge in left antecubital area. with ultrasound guided IV. lp1 00:06 Patient has correct armband on for positive identification. Placed in gown. lp1 00:45 Accessed ultrasound guided 20g IV to RA by Precious Felton RN. lp1 02:07 CT Abd/Pelvis - IV Contrast Only In Process Unspecified. EDMS 02:08 CT Chest For PE Angio In Process Unspecified. EDMS 03:21 Vanesa Nunez MD is Referral Physician. mh7 03:27 No provider procedures requiring assistance completed. lp1 03:34 IV discontinued, No redness/swelling at site. Pressure dressing applied. lp1 Administered Medications: 00:45 Drug: morphine 4 mg Route: IVP; Site: left antecubital; lp1 01:51 Follow up: Response: Pain is decreased lp1 00:45 Drug: Zofran (Ondansetron) 4 mg Route: IVP; Site: left antecubital; lp1 01:51 Follow up: Response: No adverse reaction lp1 00:45 Drug: NS 0.9% 1000 ml Route: IV; Rate: 1000 ml; Site: left antecubital; lp1 01:50 Follow up: IV Status: Completed infusion; IV Intake: 1000ml lp1 00:45 Drug: Pepcid (famotidine) 20 mg Route: IVP; Site: left antecubital; lp1 01:51 Follow up: Response: No adverse reaction lp1 Intake: 01:50 IV: 1000ml; Total: 1000ml. lp1 Outcome: 03:22 Discharge ordered by . mh7 03:35 Discharged to home ambulatory, with friend. lp1 03:35 Condition: good 03:35 Discharge instructions given to patient, Instructed on discharge instructions, follow up and referral plans. Demonstrated understanding of instructions, follow-up care. 03:35 Patient left the ED. lp1 Signatures: Dispatcher [employer] Tracy Matute RN RN lp1 Miriam Colon Maurice, MD MD 7 Ana Rosa Flower RN RN ll3 Corrections: (The following items were deleted from the chart) 03:34 00:04 Missed attempt(s): 18 gauge in left antecubital area. with ultrasound guided IV. lp1 lp1 03:34 00:45 Accessed ultrasound guided IV by Precious Felton RN. lp1 lp1 05:54 03:00 Reassessment: Patient appears in no apparent distress at this time. Patient lp1 and/or family updated on plan of care and expected duration. Pain level reassessed. Patient is alert, oriented x 3, equal unlabored respirations, skin warm/dry/pink. lp1
[2022-01-04 12:00] VITALS: TEMP 97.3
[2022-01-04 12:06] VITALS: BP 135/96; O2SAT 100
--- NOTE | 2022-01-04 13:32 | RAD REPORT ---
EXAM DESCRIPTION: CT - Chest For Pe Angio - 01/04/2022 7:02 am CLINICAL HISTORY: 46 years, Female, [place] EST PAIN COMPARISON: None. TECHNIQUE: Multiple transaxial tomograms of the chest were obtained from the lung apices through the lung bases utilizing 2 mm slice thickness at 2 mm interval reconstruction after the administration o f large bolus of IV contrast for complete opacification of the pulmonary arteries. Subsequent 3-D maximum intensity projection images were generated in the coronal and sagittal plane f or review. This exam was performed according to our departmental dose-optimization protocol, which includes auto mated exposure control, adjustment of the mA and/or kV according to patient size and/or use of iterat papo reconstruction technique. FINDINGS: The lungs parenchyma demonstrate lytic the to be clear. No masses, nodules and/or consolid ations are identified. The trachea mainstem bronchus demonstrate to be normal. There is no significant pericardial or pleura l effusions. The thoracic aorta demonstrate to be within normal limits. There is no evidence for significant aneur ysm/or dissection. The heart is normal in size. No evidence for right ventricular strain. There are n o significant coronary artery calcifications. There is no significant mediastinal and/or hilar lymphadenopathy. The axillary regions demonstrate to be clear. Pulmonary arteries demonstrate to be normal, no intraluminal defect are seen that would suggest pulmo nary embolus. The bone windows demonstrate no significant skeletal lesions. The visualized portions of the upper abdomen demonstrate to be unremarkable. IMPRESSION: No evidence of pulmonary embolism. Otherwise unremarkable CT scan of the chest with contrast Electronically signed by: Dio Webster MD 01/04/2022 2:29 AM CDT Due to temporary technical issues with the PACS/Fluency reporting system, reports are being signed by the in house radiologists without review as a courtesy to insure prompt reporting. The interpreting radiologist is fully responsible for the content of the report.
--- NOTE | 2022-01-04 13:59 | RAD REPORT ---
EXAM DESCRIPTION: CT - Abdomen Pelvis W Contrast - 01/04/2022 7:02 am CLINICAL HISTORY: 46 years, Female, ABD PAIN COMPARISON: 11/17/2021 TECHNIQUE: Contrast-enhanced images of the abdomen and pelvis were performed utilizing 2 mm slice th ickness at 2 mm interval reconstruction from the lung bases to the ischial tuberosities after the adm inistration IV contrast. In addition multiplanar reformats in the coronal and sagittal plane were obtained and reviewed. This exam was performed according to our departmental dose-optimization protocol, which includes auto mated exposure control, adjustment of the mA and/or kV according to patient size and/or use of iterat papo reconstruction technique. FINDINGS: The liver, pancreas, spleen and adrenal glands demonstrate to be unremarkable, no focal le sions are noted. Surgical clips within the gallbladder fossa correspond to previous cholecystomy. The re is no biliary duct dictation The kidneys demonstrate normal uptake of contrast media. No evidence for nephrolithiasis and/or hydro nephrosis. Grossly the unopacified stomach and small bowel bowel demonstrate to be within normal limits. There is no evidence for bowel dilatation/or free air. There is a status post right hemicolectomy. The urinary bladder demonstrate to be unremarkable. The uterus is unremarkable. There are no adnexa l masses. The aorta demonstrate to be normal. There is no retroperitoneal lymphadenopathy. There is no evidence for ascites/or significant abnormal fluid collections. The rest of the soft tissue and bony structures are within normal limits. IMPRESSION: No acute intra-abdominal process. Status post right hemicolectomy. Status post cholecystectomy. Electronically signed by: Dio Webster MD 01/04/2022 2:31 AM CDT Due to temporary technical issues with the PACS/Fluency reporting system, reports are being signed by the in house radiologists without review as a courtesy to insure prompt reporting. The interpreting radiologist is fully responsible for the content of the report.
--- NOTE | 2022-01-05 11:03 | EKG ---
Test Date: 2022-01-03 Test Time: 21:51:03 Certified Ophthalmic Technician: AWA MEASUREMENT RESULTS: Intervals: Rate: 69 MD: 164 QRSD: 80 QT: 388 QTc: 415 [place]: P: 52 MD: 164 QRS: -13 T: 19 INTERPRETIVE STATEMENTS: Normal sinus rhythm Normal ECG Compared to ECG 12/15/2021 20:05:59 Myocardial infarct finding no longer present Electronically Signed On 01-05-22 10:57:57 CDT by Matthew Lofton
== END 2022-01-04 03:35 | disposition home or self-care (01) ==
LOC: ER 20:23
DX: R07.9 Chest pain, unspecified (principal); R10.10 Upper abdominal pain, unspecified; I10 Essential (primary) hypertension; I48.91 Unspecified atrial fibrillation
CPT/HCPCS: 96361; 93005; 85025; 80048; 36415; 83735; 82550; 81025; 85610; 80076; 81003; 84484; 83690; 83880; 80307; 71275; 74177; 96375; 96374; 99284; Q9967; J7030; J2405

== ENCOUNTER 2022-01-18 14:33 | Emergency (ER) | payer OTHER ==
--- OUTSIDE RECORDS SUMMARY | 2022-01-18 14:36 | XMS REPORT | Continuity of Care Document ---
:1975 Author Organization [facility] t Address [address] [place] [address] Care Team Providers Name Role Phone Morena [...] rs active active ity of problems problems [facility] Allergies, Adverse Reactions, Alerts Allergy Allergy Status Severity Reaction(s) Onset Inactive Treating Comm ents Source Name Type Date Date Clinician No Known DA Active U 2020-09 [facility]ie 0-28 [facility] 00:00: d 00 [facility] No Known DA Active U 2020-09 [facility] Allergie 0-28 [facility] 00:00: d 00 [facility] NO KNOWN Drug Active Univers ALLERGIE Class ity of S [facility] Social History Social Habit Start Date Stop Date Quantity Comments Source Sex Assigned At [birth year] [facility] 00:00:00 00:00:00 Medical Branch Smoking Status Start Date Stop Date Source Unknown if ever smoked [facility] Medications Ordered Filled Start Stop Current Ordering Indication Dosage Frequency Signature Comments Components Source Medication Medication Date Date Medication? Clinician (SIG) Name Name No known 2020-09 No Univers medications 0-09 ity of 19:54: [address] Pantoprazol Pantoprazol Yes Na Lopez [address] [facility] Sodium e Sodium 8-10 [facility] Ergocalcife Ergocalcife 2018-09- No Na Lopez [address] [facility] rol rol 1-18 0216 [facility]00 [facility] Paxil Paxil Yes Na Lopez [address] [facility] 4-03 in the [facility] 00:[facility]: morning [facility] 00 [facility] Humira Humira Yes Na Lopez not [facility] defined [facility] Aspirin Aspirin Yes Na Lopez not [facility] defined [facility] - [facility] BusPIRone BusPIRone Yes Na Lopez [address] [facility] HCl HCl [facility] Metoprolol Metoprolol Yes Na Lopez [address] [facility] Tartrate Tartrate with food [facility] Vital Signs Vital Name Observation Time Observation Value Comments Source Systolic blood 2021-07-04 00:50:00 180 mm[Hg] Univer sity of pressure [facility] Diastolic blood 2021-07-04 00:50:00 110 mm[Hg] [facility] rate 2021-07-04 00:50:00 79 /min [facility] Body temperature 2021-07-04 00:50:00 36.67 Gem [facility] Respiratory rate 2021-07-04 00:50:00 18 /min [facility] Body weight 2021-07-04 00:50:00 121.564 kg [facility] Oxygen saturation in 2021-07-04 00:50:00 99 /min [facility] blood by [facility] Pulse oximetry Branch Procedures Procedure Date / Time Performed Performing Clinician Marta e XR CHEST 1 VW 2021-07-04 01:14:37 Raissa Tran [facility] NOTICE OF PRIVACY 2021-07-04 00:45:31 Doctor Unassigned, No [facility] Branch CONSENT/REFUSAL FOR 2021-07-04 00:45:10 Doctor Unassigned, No [facility] DIAGNOSIS AND Name Medical Branch TREATMENT Encounters Start End Encounter Admission Attending Care Care Encounter Source Date/Time Date/Time Type Type Clinicians Facility Department ID 2022-01-04 Outpatient Lopez, Na STLMLC STLMLC [id number] [facility] 09:31:01 [id number] [facility] 2021-10-20 Outpatient Lopez, Na STLMLC STLMLC [id number] [facility] [address] 14:09:55 [id number] [facility] 2021-10-20 Outpatient Lopez, Na STLMLC STLMLC [id number] [facility] 13:47:22 [id number] [facility] 2021-10-20 Outpatient Lopez, Na STLMLC STLMLC [id number] [facility] [address] 12:29:04 [id number] [facility] 2021-10-20 Outpatient Lopez, Na STLMLC STLMLC [id number] [facility] [address] 12:03:44 [id number] [facility] 2021-10-20 Outpatient Lopez, Na STLMLC STLMLC [id number] [facility] [address] 12:03:05 [id number] [facility] 2021-10-20 Outpatient Lopez, Na STLMLC STLMLC [id number] [facility] 11:43:49 [id number] [facility] 2021-10-20 Outpatient Lopez, Na STLMLC STLMLC [id number] [facility] 11:35:56 [id number] [facility] 2021-10-20 Outpatient Lopez, Na STLMLC STLMLC [id number] [facility] [address] 11:18:09 [id number] [facility] 2021-10-20 Outpatient Lopez, Na STLMLC STLMLC [id number] [facility] [address] 11:04:54 [id number] [facility] 2021-10-20 Outpatient Noemy Lopez STLMLC STLMLC [id number] [facility] [address] 11:04:25 [id number] [facility] 2022-01-05 2022-01-05 ambulatory STLMLC STLMLC [id number] [facility] 2021-12-28 2021-12-28 ambulatory STLMLC STLMLC [id number] [facility] 2021-11-15 2021-11-15 ambulatory STLMLC STLMLC [id number] [facility] 2021-11-11 2021-11-11 ambulatory STLMLC STLMLC [id number] [facility] 2021-09-28 2021-09-28 ambulatory STLMLC STLMLC [id number] [facility] 2021-08-27 2021-08-27 ambulatory STLMLC STLMLC [id number] [facility] 2021-08-04 2021-08-04 ambulatory STLMLC STLMLC [id number] [facility] 2021-08-02 2021-08-02 ambulatory STLMLC STLMLC [id number] [facility] 2021-07-22 2021-07-22 Outpatient Vanesa Nunez HCAPM RADI LA5 [id number] [facility] 08:00:00 08:00:00 [id number] [facility] 2021-07-22 2021-07-22 Outpatient EL Vanesa Nunez HCAPM RADI LA0 [id number] [facility] 07:26:00 07:26:00 63 [facility] 2021-07-03 2021-07-03 Emergency Marc, [facility] [id number] Univers 19:47:00 21:16:00 Raissa Alvarez [id number] ity [facility] [id number] [facility] [id number] [address] 2021-07-03 2021-07-03 Emergency X [facility] ERT [id number] Univers 19:47:00 19:47:00 ity of [facility] 2021-06-07 2021-06-07 Outpatient STLC STLC [id number] [facility] 2021-05-06 2021-05-06 Outpatient STLC STLC [id number] [facility] 2021-04-28 2021-04-28 Outpatient STLC STLC [id number] [facility] 2021-04-27 2021-04-27 Outpatient STLMLC STLC [id number] [facility] 2021-03-15 2021-03-15 Outpatient STLMLC STLC [id number] [facility] 2021-01-04 2021-01-04 Outpatient STLMLC STLC [id number] [facility] 2020-11-03 2020-11-03 Outpatient STLMLC STLMLC [id number] [facility] 2020-08-03 2020-08-03 Outpatient STLMLC STLMLC [id number] [facility] 2020-05-04 2020-05-04 [facility] [id number] 10:10:00 10:10:00 [place] [facility] [facility] l Medicine Outpati ent Clinics 2020-05-01 2020-05-01 [facility] [id number] 09:40:00 09:40:00 [place] [facility] l Medicine Outpati ent Clinics 2020-02-19 2020-02-19 [facility] [id number] 16:06:00 16:06:00 [address] [facility] [address] [employer] s - Road [facility] Medicine l Medicine Outpati ent Clinics 2019-12-12 2019-12-12 [facility] [id number] 15:41:00 15:41:00 [place] [employer] [facility] Medicine Outpati ent Clinics 2019-09-16 2019-09-16 [facility] [id number] [address] 14:40:00 14:40:00 [place] [address] [facility] Medicine Outpati ent Clinics 2019-08-15 2019-08-15 [facility] [id number] [address] 09:27:00 09:27:00 [place] [address] [facility] l Medicine Outpati ent Clinics 2019-08-12 2019-08-12 [facility] [id number] 09:00:00 09:00:00 [place] [address] [facility] Medicine Outpati ent Clinics 2019-07-31 2019-07-31 [facility] [id number] 11:46:00 11:46:00 t [place] [address] [facility] Medicine l Medicine Outpati ent Clinics 2019-07-29 2019-07-29 [facility] [id number] 09:40:00 09:40:00 t [place] [address] [facility] Medicine Outpati ent Clinics 2019-06-02 2019-06-02 [facility] [id number] 09:38:00 09:38:00 t [facility] l Outpati ent Clinics 2019-05-31 2019-05-31 [facility] [id number] 11:30:00 11:30:00 t [facility] L [facility] 2018-01-19 2018-01-19 Outpatient Dolores Bernalt [id number] [address] 08:11:00 08:11:00 t [facility] ent [facility] 2018-01-18 2018-01-18 [place] [id number] 10:15:00 10:15:00 [facility] 2017-12-26 2017-12-26 [place]patient [facility] [id number] 09:30:00 09:30:00 [facility] Results Test Description Test Time Test Comments Results Result Comments Source SARS-CoV-2 (COVID-19), RT-PCR/TMA 2021-12-10 07:26:55 Test Item Value Reference Range Interpretation Comme nts SARS-CoV-2 INTERPRETATION NEGATIVE SEE NOTE S ARS-CoV-2 RNA NOT (test code = 41523) DETECTED Negative results do not preclude SARS-C [...] ORDER CODE 3509. SOURCE (test code = 60877) NASOPHARYNGEAL Note: Methodology is Ro Charito Real-Time RT-PC R. The expected result or ref erence range is NEGATIVE (Not D etected). For more information reg vading COVID-19 testing to incl ude clinicalinforma tion, methodology detail, intende d use, FDA authorization a ndrecommended fact sheets for carlos ents or healthcare providers, see [facility] Announcement: S ARS-CoV-2 (COVID-19) by N AAT at URL below (note,fact shee ts are provided by method given in report:https:// www.[employer]/cl inicians/client -communications/ Alternatively, see downloadable PDF fact sheet at:https://www. [employer]/COVID- 19-RT-PCR UNLESS OTHERWISE INDICATED, ALL TESTING PERFORMED ATCLINICAL PATH [facility] [place] [address] 4 LABORATORY DIRE CTOR: PRUDENCE SOLIS M.D. CLIA NUMBER [id number] [place]. [id number] - CT ABD PELVIS [id number] 09:50:00 [facility] 1975 Sex: F Name: SHE FITZGERALD [facility] : 1975Age/S: 46 / F [address] [place] Unit #: [id number] Loc: [place] [address] Phys: Vanesa Nunez MD Acct: [id number] Dis Date: Status: REG CLI PHONE#: [phone] Exam Date: 07/22/2021917 FAX #: Reason:CROHNS DISEASE, UNSPECIFIED, WITHOUT COMPLICATI EXAMS: CPT: [id number] CT ABD PELVIS W/CONT 98453 HISTORY: CROHN'S DISEASE, UNSPECIFIED, WITHOUT COMPLICATIONS TECHNIQUE: [...] 1 Signed Report (CONTINUED) Name: SHE FERNANDEZ [facility] : 1975 Age/S: 46 / F [address] [facility] [place] Unit #: [id number] Loc: [place] [address] Phys: Vanesa Nunez MD Acct: [id number] Dis Date: Status: REG CLI PHONE #: [phone] Exam Date: 07/22/2021917 FAX #: Reason: CROHNS DISEASE, UNSPECIFIED, WITHOUT COMPLICATI EXAMS: CPT:[id number] CT ABD PELVIS W/CONT 77080 <Continued> IMPRESSION: 1. There is mild diffuse [...] (0950) [email or web address] Orig Print D/T: S: 07/22/2021 (1623) PAGE 2 Signed Report [id number] 08:27:00 Test Item Value Reference Range Interpretation Comments ISTAT-BUN (test code = BUNP) 8 mg/dL 8-26 N BEDSIDE [id number] 08:27:00 Test Item Value Reference Range Interpretation Comments BEDSIDE CREATININE (test code = 0.6 mg/dL 0.6-1.3 N CREATBED)
[2022-01-18 16:03] LABS: SARS-COV-2 RT PCR NEGATIVE (NEGATIVE)
--- NOTE | 2022-01-18 16:55 | ER ---
Nurse's Notes [facility] Name: Dori Guardado Age: 46 yrs Sex: Female : 1975 Arrival Date: 01/18/2022 Time: 14:36 Bed 12 Private MD: Diagnosis: Acute pharyngitis, unspecified Presentation: 01/18 14:47 Chief complaint: Patient states: sore throat and cough began last night; states throat vg1 feels scratchy/dry, having difficulty swallowing and can feel drainage; also states AMANDA ears fill full. Coronavirus screen: Vaccine status: Patient reports being unvaccinated. Client denies travel out of the [place] in the last 14 days. Ebola Screen: Patient denies exposure to infectious person. Patient denies travel to an Ebola-affected area in the 21 days before illness onset. Initial Sepsis Screen: Does the patient meet any 2 criteria? No. Patient's initial sepsis screen is negative. Does the patient have a suspected source of infection? No. Patient's initial sepsis screen is negative. Risk Assessment: Do you want to hurt yourself or someone else? Patient reports no desire to harm self or others. Onset of symptoms was January 17, 2022. 14:47 Method Of Arrival: Ambulatory vg1 14:47 Acuity: KASH 4 vg1 Triage Assessment: 14:50 General: Appears in no apparent distress. comfortable, Behavior is calm, cooperative. vg1 Pain: Complains of pain in throat Pain currently is 5 out of 10 on a pain scale. EENT: Throat is reddened. LIP OF SHANK CUTTER: 14:50 LMP N/A - Hysterectomy vg1 Historical: - Allergies: 14:50 No Known Allergies; vg1 - Home Meds: 14:50 Humira [Active]; amlodipine oral [Active]; Omeprazole Oral [Active]; mesalamine oral vg1 [Active]; - PMHx: 14:50 Atrial Fib; bowel obstruction; Crohn's; Hypertension; vg1 - PSHx: 14:50 Appendectomy; Cholecystectomy; vg1 - Immunization history:: Client reports having NOT received the Covid vaccine. - Social history:: Smoking status: Patient denies any tobacco usage or history of. Screenin:03 Abuse screen: Denies threats or abuse. Denies injuries from another. Nutritional ld1 screening: No deficits noted. Tuberculosis screening: No symptoms or risk factors identified. Fall Risk None identified. Assessment: 15:03 General: Appears in no apparent distress. comfortable, Behavior is calm, cooperative, ld1 appropriate for age. Pain: Denies pain. Neuro: Level of Consciousness is awake, alert, obeys commands, Oriented to person, place, time, situation. Cardiovascular: Capillary refill < 3 seconds Patient's skin is warm and dry. Respiratory: Airway is patent Respiratory effort is even, unlabored, Breath sounds are clear bilaterally. GI: Abdomen is flat, non-distended. : No signs and/or symptoms were reported regarding the genitourinary system. EENT: No signs and/or symptoms were reported regarding the EENT system. Throat is pink. Derm: No signs and/or symptoms reported regarding the dermatologic system. Musculoskeletal: No signs and/or symptoms reported regarding the musculoskeletal system. Vital Signs: 14:47 BP 136 / 97; Pulse 78; Resp 16; Temp 97.7; Pulse Ox 100% ; Weight 125.19 kg; Height 5 vg1 ft. 4 in. (162.56 cm); Pain 5/10; 15:03 BP 133 / 95; Pulse 79; Resp 18; Pulse Ox 100% on R/A; ld1 14:47 Body Mass Index 47.37 (125.19 kg, 162.56 cm) vg1 ED Course: 14:36 Patient arrived in ED. ds1 14:40 Oscar Drake NP is PHCP. pm1 14:40 Branden Negron MD is Attending Physician. pm1 14:50 Triage completed. vg1 14:50 Arm band placed on. vg1 14:56 COVID swab sent to lab. Flu and/or RSV swab sent to lab. Strep swab sent to lab. vg1 14:58 Georgia Dawkins RN is Primary Nurse. ld1 14:58 Strep Sent. ld1 14:58 COVID-19/FLU A+B (Document "Date of Onset" if Symptomatic) Sent. ld1 15:03 Patient has correct armband on for positive identification. Placed in gown. Bed in low ld1 position. Call light in reach. Side rails up X2. Pulse ox on. NIBP on. Door closed. Noise minimized. Warm blanket given. 15:03 No provider procedures requiring assistance completed. ld1 17:28 Patient did not have IV access during this emergency room visit. ld1 Administered Medications: 17:00 Drug: SOLU-Medrol (methylPREDNISolone sodium succinate) 125 mg Route: IM; Site: left ld1 deltoid; 17:28 Follow up: Response: No adverse reaction ld1 Outcome: 16:55 Discharge ordered by . pm1 17:28 Discharged to home ld1 17:28 Condition: stable 17:28 Discharge instructions given to patient, Instructed on discharge instructions, follow up and referral plans. Demonstrated understanding of instructions, follow-up care. 17:28 Patient left the ED. ld1 Signatures: Kandi Dietz ds1 Oscar Drake NP DUCT MAKER pm1 Eleanor Dao, RN RN vg1 Georgia Dawkins RN RN ld1
--- NOTE | 2022-01-18 16:55 | EDPHYS ---
Physician Documentation [facility] Name: Dori Guardado Age: 46 yrs Sex: Female : 1975 Arrival Date: 01/18/2022 Time: 14:36 Bed 12 Private MD: ED Physician Branden Negron HPI: 01/18 14:53 This 46 yrs old Black Female presents to ER via Ambulatory with complaints of Sore pm1 Throat. 14:53 The patient presents with sore throat. The patient describes throat pain as raw, pm1 scratchy. Onset: The symptoms/episode began/occurred last night. Severity of symptoms: in the emergency department the symptoms are unchanged. Modifying factors: The symptoms are alleviated by nothing, the symptoms are aggravated by swallowing, Patient's oral intake status: good. Associated signs and symptoms: Pertinent positives: cough, Pertinent negatives fever, headache. The patient has not recently seen a physician. RIVET PASSER: 14:50 LMP N/A - Hysterectomy vg1 Historical: - Allergies: 14:50 No Known Allergies; vg1 - Home Meds: 14:50 Humira [Active]; amlodipine oral [Active]; Omeprazole Oral [Active]; mesalamine oral vg1 [Active]; - PMHx: 14:50 Atrial Fib; bowel obstruction; Crohn's; Hypertension; vg1 - PSHx: 14:50 Appendectomy; Cholecystectomy; vg1 - Immunization history:: Client reports having NOT received the Covid vaccine. - Social history:: Smoking status: Patient denies any tobacco usage or history of. ROS: 14:53 Constitutional: Negative for fever, chills, and weight loss. pm1 14:53 Neck: Negative for injury, pain, and swelling, Cardiovascular: Negative for chest pain, palpitations, and edema. 14:53 Abdomen/GI: Negative for abdominal pain, nausea, vomiting, diarrhea, and constipation, Back: Negative for injury and pain, MS/Extremity: Negative for injury and deformity, Skin: Negative for injury, rash, and discoloration, Neuro: Negative for headache, weakness, numbness, tingling, and seizure. 14:53 ENT: Positive for sore throat, bilateral ear fullness, Negative for drainage from ear(s). 14:53 Respiratory: Positive for cough, Negative for shortness of breath. 14:53 All other systems are negative. Exam: 14:53 Constitutional: This is a well developed, well nourished patient who is awake, alert, pm1 and in no acute distress. Head/Face: Normocephalic, atraumatic. 14:53 Back: No spinal tenderness. No costovertebral tenderness. Full range of motion. Skin: Warm, dry with normal turgor. Normal color with no rashes, no lesions, and no evidence of cellulitis. MS/ Extremity: Pulses equal, no cyanosis. Neurovascular intact. Full, normal range of motion. 14:53 Eyes: Exam is negative for acute changes, Periorbital structures: appear normal, Pupils: no acute changes, Extraocular movements: no acute changes, Conjunctiva: no acute changes, no injection. 14:53 ENT: External ear(s): no acute changes, Ear canal(s): no acute changes, TM's: no acute changes, Nose: no acute changes, Mouth: no acute changes, Lips: normal, moist, Oral mucosa: normal, pink and intact, moist, Posterior pharynx: Airway: no evidence of obstruction, Tonsils: enlarged on the left, with erythema, no exudate, no ulcerations, erythema, that is mild, exudate, is not appreciated, peritonsillar mass, is not appreciated. 14:53 Neck: Exam negative for acute changes, Lymph nodes: no appreciated lymphadenopathy. 14:53 Cardiovascular: Exam negative for acute changes, Rate: normal, Rhythm: regular, Pulses: no pulse deficits are appreciated. 14:53 Respiratory: Exam negative for acute changes, respiratory distress, shortness of breath, Breath sounds: are clear throughout. 14:53 Neuro: Exam negative for acute changes, Orientation: is normal, Mentation: is normal, Motor: is normal, moves all fours, Gait: is steady, at a normal pace, without difficulty. Vital Signs: 14:47 BP 136 / 97; Pulse 78; Resp 16; Temp 97.7; Pulse Ox 100% ; Weight 125.19 kg; Height 5 vg1 ft. 4 in. (162.56 cm); Pain 5/10; 15:03 BP 133 / 95; Pulse 79; Resp 18; Pulse Ox 100% on R/A; ld1 14:47 Body Mass Index 47.37 (125.19 kg, 162.56 cm) vg1 MDM: 15:10 Patient medically screened. pm1 16:54 Data reviewed: vital signs. Data interpreted: Pulse oximetry: on room air is 100 %. pm1 Interpretation: normal. Counseling: I had a detailed discussion with the patient and/or guardian regarding: the historical points, exam findings, and any diagnostic results supporting the discharge/admit diagnosis, lab results, the need for outpatient follow up, to return to the emergency department if symptoms worsen or persist or if there are any questions or concerns that arise at home. 01/18 14:53 Order name: Strep; Complete Time: 16:47 pm1 01/18 14:53 Order name: COVID-19/FLU A+B (Document "Date of Onset" if Symptomatic); Complete Time: pm1 16:22 01/18 16:39 Order name: Throat Culture EDMS Administered Medications: 17:00 Drug: SOLU-Medrol (methylPREDNISolone sodium succinate) 125 mg Route: IM; Site: left ld1 deltoid; 17:28 Follow up: Response: No adverse reaction ld1 Disposition: 18:29 Co-signature as Attending Physician, Branden Negron MD. rn Disposition Summary: 01/18/22 16:55 Discharge Ordered Location: Home pm1 Problem: new pm1 Symptoms: have improved pm1 Condition: Stable pm1 Diagnosis - Acute pharyngitis, unspecified pm1 Followup: pm1 - With: Emergency Department - When: As needed - Reason: Worsening of condition Followup: pm1 - With: Private Physician - When: 2 - 3 days - Reason: Recheck today's complaints, Continuance of care, Re-evaluation by your physician Discharge Instructions: - Discharge Summary Sheet pm1 - Pharyngitis pm1 Forms: - Medication Reconciliation Form pm1 - Thank You Letter pm1 - Antibiotic Education pm1 - Prescription Opioid Use pm1 Signatures: Dispatcher [employer] EDMS Branden Negron MD MD rn Marinas, Patrick, NP PODIATRIC AIDE pm1 Eleanor Dao RN RN vg1 Georgia Dawkins RN RN ld1
[2022-01-18] MEDS ORDERED: METHYLPREDNISOLONE 125 MG INJ ONE (17:26)
[2022-01-18 20:03] VITALS: TEMP 97.7; O2SAT 100
[2022-01-18 20:04] VITALS: BP 133/95
== END 2022-01-18 17:28 | disposition home or self-care (01) ==
LOC: ER 14:33
DX: J02.9 Acute pharyngitis, unspecified (principal); R05.9 Cough, unspecified; I10 Essential (primary) hypertension; I48.91 Unspecified atrial fibrillation; Z20.822 Contact with and (suspected) exposure to COVID-19
CPT/HCPCS: 87070; 87081; 0240U; J2930; 96372; 99283

== ENCOUNTER 2022-01-23 22:15 | Emergency (ER) | payer OTHER ==
--- OUTSIDE RECORDS SUMMARY | 2022-01-23 22:18 | XMS REPORT | Continuity of Care Document ---
:1975 Author Organization [facility] t Address [address] [place] [address] Care Team Providers Name Role Phone Morena [...] rs active active ity of problems problems [facility] Allergies, Adverse Reactions, Alerts Allergy Allergy Status Severity Reaction(s) Onset Inactive Treating Comm ents Source Name Type Date Date Clinician No Known DA Active U 2020-09 [facility] d 00 [facility] No Known DA Active U 2020-09 [facility] Allergie 0-28 [facility] 00:[facility]: d 00 [facility] NO KNOWN Drug Active Univers ALLERGIE Class ity of S [facility] Social History Social Habit Start Date Stop Date Quantity Comments Source Sex Assigned At [birth year] [facility] 00:00:00 00:00:00 [facility] Smoking Status Start Date Stop Date Source Unknown if ever smoked [facility] Medications Ordered Filled Start Stop Current Ordering Indication Dosage Frequency Signature Comments Components Source Medication Medication Date Date Medication? Clinician (SIG) Name Name No known 2020-09 No Univers medications 0-09 ity of 19:54: [address] Pantoprazol Pantoprazol Yes Na Lopez [address] [facility] Sodium e Sodium 8-10 [facility] Ergocalcife Ergocalcife 2018-09- No Na Lopez [address] [facility] rol rol 1-18 0216 [facility] Paxil Paxil Yes Na Lopez [address] [facility] 4-03 in the [facility] 00:[facility]: morning [facility] 00 [facility] Humira Humira Yes Na Lopez not [facility] defined [facility] Aspirin Aspirin Yes Na Lopez not [facility] defined [facility] - [facility] ent [facility] BusPIRone BusPIRone Yes Na Lopez [address] [facility] HCl HCl [facility] Metoprolol Metoprolol Yes Na Lopez [address] [facility] Tartrate Tartrate with food [facility] Vital Signs Vital Name Observation Time Observation Value Comments Source Systolic blood 2021-07-04 00:50:00 180 mm[Hg] Univer sity of pressure [facility] Diastolic blood 2021-07-04 00:50:00 110 mm[Hg[facility] rate 2021-07-04 00:50:00 79 /min [facility] Body temperature 2021-07-04 00:50:00 36.67 Gem [facility] Respiratory rate 2021-07-04 00:50:00 18 /min [facility] Body weight 2021-07-04 00:50:00 121.564 kg [facility] Oxygen saturation in 2021-07-04 00:50:00 99 /min [facility] blood by [facility] Pulse oximetry Branch Procedures Procedure Date / Time Performed Performing Clinician Marta e XR CHEST 1 VW 2021-07-04 01:14:37 Raissa Tran [facility] NOTICE OF PRIVACY 2021-07-04 00:45:31 Doctor Unassigned, No [facility] CONSENT/REFUSAL FOR 2021-07-04 00:45:10 Doctor Unassigned, No [facility] DIAGNOSIS AND Name Medical Branch TREATMENT Encounters Start End Encounter Admission Attending Care Care Encounter Source Date/Time Date/Time Type Type Clinicians Facility Department ID 2022-01-04 Outpatient Lopez, Na STLMLC STLMLC [id number] [facility] 09:31:01 [id number] [facility] 2021-10-20 Outpatient Lopez, Na STLMLC STLMLC [id number] [facility] [address] 14:09:55 [id number] [facility] 2021-10-20 Outpatient Lopez, Na STLMLC STLMLC [id number] [facility] [address] 13:47:22 [id number] [facility] 2021-10-20 Outpatient Lopez, Na STLMLC STLMLC [id number] [facility] [address] 12:29:04 [id number] [facility] 2021-10-20 Outpatient Lopez, Na STLMLC STLMLC [id number] [facility] [address] 12:03:44 [id number] [facility] 2021-10-20 Outpatient Lopez, Na STLMLC STLMLC [id number] [facility] [address] 12:03:05 [id number] [facility] 2021-10-20 Outpatient Lopez, Na STLMLC STLMLC [id number] [facility] [address] 11:43:49 [id number] [facility] 2021-10-20 Outpatient Lopez, Na STLMLC STLMLC [id number] [facility] [address] 11:35:56 [id number] [facility] 2021-10-20 Outpatient Lopez, Na STLMLC STLMLC [id number] [facility] 11:18:09 [id number] [facility] 2021-10-20 Outpatient Lopez, Na STLMLC STLMLC [id number] [facility] [address] 11:04:54 [id number] [facility] 2021-10-20 Outpatient Noemy Lopez STLMLC STLMLC [id number] [facility] [address] 11:04:25 [id number] [facility] 2022-01-18 2022-01-18 ambulatory STLMLC [facility]LMLC [id number] [facility] 2022-01-05 2022-01-05 ambulatory STLMLC STLMLC [id number] [facility] 2021-12-28 2021-12-28 ambulatory STLMLC STLMLC [id number] [facility] 2021-11-15 2021-11-15 ambulatory STLMLC STLMLC [id number] [facility] 2021-11-11 2021-11-11 ambulatory STLMLC STLMLC [id number] [facility] 2021-09-28 2021-09-28 ambulatory STLMLC STLMLC [id number] [facility] 2021-08-27 2021-08-27 ambulatory STLMLC STLMLC [id number] [facility] 2021-08-04 2021-08-04 ambulatory STLMLC STLMLC [id number] [facility] 2021-08-02 2021-08-02 ambulatory STLMLC STLMLC [id number] [facility] 2021-07-22 2021-07-22 Outpatient Vanesa Nunez [facility] RADI LA5 [id number] [facility] 08:00:00 08:00:00 [id number] [facility] 2021-07-22 2021-07-22 Outpatient Vanesa Cheung [facility] RADI LA0 [id number] [facility] 07:26:00 07:26:00 63 [facility] 2021-07-03 2021-07-03 Emergency Marc, [facility] [id number] Univers 19:47:00 21:16:[id number] [facility] [id number] [facility] [id number] [place] [id number] Branch 2021-07-03 2021-07-03 Emergency X [facility] ERT [id number] Univers 19:47:00 19:47:00 ity [facility] 2021-06-07 2021-06-07 Outpatient STLMLC STLC [id number] [facility] 2021-05-06 2021-05-06 Outpatient STLC STLC [id number] [facility] 2021-04-28 2021-04-28 Outpatient STLMLC STLMLC [id number] [facility] 2021-04-27 2021-04-27 Outpatient STLMLC [facility]LMLC [id number] [facility] 2021-03-15 2021-03-15 Outpatient STLMLC STLC [id number] [facility] 2021-01-04 2021-01-04 Outpatient STLMLC STLMLC [id number] [facility] 2020-11-03 2020-11-03 Outpatient STLMLC STLMLC [id number] [facility] 2020-08-03 2020-08-03 Outpatient STLMLC STLMLC [id number] [facility]00 [facility] Outpati ent Clinics 2020-05-04 2020-05-04 [facility] [id number] 10:10:00 10:10:[address] Luke s - Drive [facility] Outpati ent Clinics 2020-05-01 2020-05-01 [facility] [id number] 09:40:00 09:40:[address] Luke s - Drive [facility] Clinics 2020-02-19 2020-02-19 [facility] [id number] 16:06:00 16:06:[address] [facility] [address] [employer] s - Road [facility] Clinics 2019-12-12 2019-12-12 [facility] [id number] 15:41:00 15:41:00 t [employer] Luke s - Drive [facility] Clinics 2019-09-16 2019-09-16 [facility] [id number] 14:40:00 14:40:00 t [employer] Luke s - Drive [facility] Clinics 2019-08-15 2019-08-15 [facility] [id number] 09:27:00 09:27:00 t [employer] - Drive [facility] Clinics 2019-08-12 2019-08-12 [facility] [id number] 09:00:00 09:00:[address] Luke s - Drive [facility] Clinics 2019-07-31 2019-07-31 [facility] [id number] 11:46:00 11:46:[address] Luke s - Drive [facility] Clinics 2019-07-29 2019-07-29 [facility] [id number] 09:40:00 09:40:[address] Luke s - Drive [facility] Clinics 2019-06-02 2019-06-02 [facility] [id number] 09:38:00 09:38:00 t Urgent [facility] 2019-05-31 2019-05-31 [place] [facility] [id number] 11:30:00 11:30:00 t Urgent Ur[facility] L [facility] 2018-01-19 2018-01-19 Out[facility] [id number] 08:11:00 08:11:00 t [employer] [facility] ent [facility] 2018-01-18 2018-01-18 [facility] [id number] 10:15:00 10:15:00 t [employer] [facility] 2017-12-26 2017-12-26 Outpatient [place] [id number] 09:30:00 09:30:00 t [employer] [place] [employer] [facility] Results Test Description Test Time Test Comments Results Result Comments Source SARS-CoV-2 (COVID-19), RT-PCR/TMA 2021-12-10 07:26:55 Test Item Value Reference Range Interpretation Comme nts SARS-CoV-2 INTERPRETATION NEGATIVE SEE NOTE S ARS-CoV-2 RNA NOT (test code = 40200) DETECTED Negative results do not preclude SARS-C [...] ORDER CODE 3509. SOURCE (test code = 82396) NASOPHARYNGEAL Note: Methodology is Ro Charito Real-Time RT-PC R. The expected result or ref erence range is NEGATIVE (Not D etected). For more information reg arding COVID-19 testing to incl ude clinicalinforma tion, methodology detail, intende d use, FDA authorization a ndrecommended fact sheets for carlos ents or healthcare providers, see [employer] Announcement: S ARS-CoV-2 (COVID-19) by N AAT at URL below (note,fact shee ts are provided by method given in report:https:// www.Way[employer]/cl inicians/client -communications/ Alternatively, see downloadable PDF fact sheet at:https://www. [employer]/COVID- 19-RT-PCR UNLESS OTHERWISE INDICATED, ALL TESTING PERFORMED ATCLINICAL PATH OGY [facility]LY [facility] [place] [address] 4 LABORATORY DIRE CTOR: PRUDENCE SOLIS M.D. CLIA NUMBER [id number] [place]. [id number] - CT ABD PELVIS [id number] 09:50:00 [facility] 1975 Sex: F Name: SHE FITZGERALD [facility] : 1975Age/S: 46 / F [id number] Unit #: [id number] Loc: [place] [address] Phys: Vanesa Nunez MD Acct: [id number] Dis Date: Status: REG CLI PHONE#: [phone] Exam Date: 07/22/2021917 FAX #: Reason:CROHNS DISEASE, UNSPECIFIED, WITHOUT COMPLICATI EXAMS: CPT: [id number] CT ABD PELVIS W/CONT 22862 HISTORY: CROHN'S DISEASE, UNSPECIFIED, WITHOUT COMPLICATIONS TECHNIQUE: [...] PAGE 1 Signed Report (CONTINUED) Name: SHE FERNANDEZland : 1975 Age/S: 46 / F [id number] Unit #: [id number] Loc: [place] [address] Phys: Vanesa Nunez MD Acct: [id number] Dis Date: Status: REG CLI PHONE #: [phone] Exam Date: 07/22/2021917 FAX #: Reason: CROHNS DISEASE, UNSPECIFIED, WITHOUT COMPLICATI EXAMS: CPT:[id number] CT ABD PELVIS W/CONT 96978 <Continued> IMPRESSION: 1. There is mild diffuse [...] (0950) [email or web address] Orig Print D/T: S: 07/22/2021 (3453) PAGE 2 Signed Report [id number] 08:27:00 Test Item Value Reference Range Interpretation Comments ISTAT-BUN (test code = BUNP) 8 mg/dL 8-26 N BEDSIDE [id number] 08:27:00 Test Item Value Reference Range Interpretation Comments BEDSIDE CREATININE (test code = 0.6 mg/dL 0.6-1.3 N CREATBED)
[2022-01-24 01:30] LABS: SARS-COV-2 RT PCR POSITIVE (NEGATIVE)
--- NOTE | 2022-01-24 02:13 | ER ---
Nurse's Notes [facility] Name: Dori Guardado Age: 46 yrs Sex: Female : 1975 Arrival Date: 01/23/2022 Time: 22:17 Bed 26 Private MD: Diagnosis: Coronavirus infection, unspecified;Acute pharyngitis, unspecified Presentation: 01/23 22:38 Chief complaint: Patient states: I have a cough and had a low fever. The cough started jb4 Monday. It has gotten worse, my daughter was tested for covid and It has gotten worse since. Coronavirus screen: Client presents with at least one sign or symptom that may indicate coronavirus-19. Standard/surgical mask placed on the client. Provider contacted for isolation considerations. Ebola Screen: No symptoms or risks identified at this time. Initial Sepsis Screen: Does the patient meet any 2 criteria? No. Patient's initial sepsis screen is negative. Does the patient have a suspected source of infection? No. Patient's initial sepsis screen is negative. Risk Assessment: Do you want to hurt yourself or someone else? Patient reports no desire to harm self or others. Onset of symptoms was January 23, 2022. Transition of care: patient was not received from another setting of care. 22:38 Method Of Arrival: Ambulatory jb4 22:38 Acuity: KASH 4 jb4 Historical: - Allergies: 22:40 No Known Allergies; jb4 - Home Meds: 22:40 amlodipine oral [Active]; humira [Active]; mesalamine Oral [Active]; Omeprazole Oral jb4 [Active]; - PMHx: 22:40 Atrial Fib; bowel obstruction; Crohn's; Hypertension; jb4 - PSHx: 22:40 Appendectomy; Cholecystectomy; jb4 - Immunization history:: Adult Immunizations up to date, Client reports having NOT received the Covid vaccine. - Social history:: Smoking status: Patient denies any tobacco usage or history of. Patient/guardian denies using alcohol, street drugs. - Family history:: not pertinent. Screenin/02 00:32 Abuse screen: Denies threats or abuse. Nutritional screening: No deficits noted. bb Tuberculosis screening: No symptoms or risk factors identified. Fall Risk None identified. Assessment: 00:32 General: Appears in no apparent distress. obese, Behavior is calm, cooperative. Pain: bb Complains of pain in sore throat. Neuro: Level of Consciousness is awake, alert, obeys commands, Oriented to person, place, time, situation. Cardiovascular: Capillary refill < 3 seconds Patient's skin is warm and dry. Respiratory: Airway is patent Respiratory effort is even, unlabored, Respiratory pattern is regular, Breath sounds are clear bilaterally. GI: No signs and/or symptoms were reported involving the gastrointestinal system. EENT: Throat is clear Reports pain in throat. Derm: Skin is dry, Skin is normal, Skin temperature is warm. Musculoskeletal: Circulation, motion, and sensation intact. 01:56 Reassessment: Patient is alert, oriented x 3, equal unlabored respirations, skin bb warm/dry/pink. 02:24 Reassessment: Patient is alert, oriented x 3, equal unlabored respirations, skin bb warm/dry/pink. pt verbalized understanding of and agrees to plan of care discharge instructions given pt ambulated with steady gait to exit. Vital Signs: 01/23 22:38 BP 150 / 103; Pulse 86; Resp 18; Temp 97.9; Pulse Ox 97% on R/A; Weight 125.19 kg (R); jb4 Height 5 ft. 4 in. (162.56 cm) (R); Pain 4/10; 01/24 00:36 BP 151 / 103; Pulse 77; Temp 98.7; Pulse Ox 99% on R/A; wm 01:56 BP 132 / 88; Pulse 81; Resp 16 S; Pulse Ox 95% on R/A; bb 01/23 22:38 Body Mass Index 47.37 (125.19 kg, 162.56 cm) jb4 ED Course: 01/23 22:17 Patient arrived in ED. jj6 22:40 Triage completed. jb4 22:40 Arm band placed on right wrist. jb4 01/24 00:32 Hardy Yee MD is Attending Physician. sidney 00:32 Precious Felton, LEONA is Primary Nurse. bb 00:32 Patient has correct armband on for positive identification. Call light in reach. bb potline monitor on. Pulse ox on. Warm blanket given. 00:34 COVID swab sent to lab. Flu and/or RSV swab sent to lab. Strep swab sent to lab. bb 00:36 Bed in low position. Call light in reach. Side rails up X 1. Door closed. Lights wm dimmed. Warm blanket given. Pulse ox on. NIBP on. 00:58 Chest Pa And Lat (2 Views) XRAY In Process Unspecified. EDMS 02:24 No provider procedures requiring assistance completed. Patient did not have IV access bb during this emergency room visit. Administered Medications: 02:17 Drug: Zithromax (azithromycin) 500 mg Route: PO; bb 02:25 Follow up: Response: Medication administered at discharge. ant Outcome: 02:12 Discharge ordered by . sidney 02:24 Discharged to home ambulatory. bb 02:24 Condition: stable 02:24 Discharge instructions given to patient, Instructed on discharge instructions, follow up and referral plans. medication usage, Demonstrated understanding of instructions, follow-up care, medications, Prescriptions given X 2. 02:25 Patient left the ED. bb Signatures: Dispatcher [employer] EDKS Hardy Yee MD MD cha Ballard, Brenda, RN RN Hong Blanco, RN RN [email or web address] Parry Jennifer [email or web address]
--- NOTE | 2022-01-24 02:13 | EDPHYS ---
Physician Documentation [facility] Name: Dori Guardado Age: 46 yrs Sex: Female : 1975 Arrival Date: 01/23/2022 Time: 22:17 Bed 26 Private MD: RAFAELA Physician Hardy Yee HPI: 01/24 02:08 This 46 yrs old Black Female presents to ER via Ambulatory with complaints of Cough, sidney Sore Throat. 02:08 The patient or guardian reports cough, hoarse voice. Onset: The symptoms/episode sidney began/occurred 3 day(s) ago. Severity of symptoms: At their worst the symptoms were mild, in the emergency department the symptoms are unchanged. 02:08 The patient presents with sore throat. The patient describes throat pain as raw. sidney Modifying factors: The symptoms are alleviated by nothing, the symptoms are aggravated by. Modifying factors: The symptoms are alleviated by fluids, the symptoms are aggravated by swallowing, Patient's oral intake status: good. Associated signs and symptoms: Pertinent positives: cough. Historical: - Allergies: 01/23 22:40 No Known Allergies; jb4 - Home Meds: 22:40 amlodipine oral [Active]; humira [Active]; mesalamine Oral [Active]; Omeprazole Oral jb4 [Active]; - PMHx: 22:40 Atrial Fib; bowel obstruction; Crohn's; Hypertension; jb4 - PSHx: 22:40 Appendectomy; Cholecystectomy; jb4 - Immunization history:: Adult Immunizations up to date, Client reports having NOT received the Covid vaccine. - Social history:: Smoking status: Patient denies any tobacco usage or history of. Patient/guardian denies using alcohol, street drugs. - Family history:: not pertinent. ROS: 01/24 02:08 Constitutional: Negative for fever, chills, and weight loss, Eyes: Negative for injury, sidney pain, redness, and discharge, Neck: Negative for injury, pain, and swelling, Cardiovascular: Negative for chest pain, palpitations, and edema, Respiratory: Negative for shortness of breath, cough, wheezing, and pleuritic chest pain, Abdomen/GI: Negative for abdominal pain, nausea, vomiting, diarrhea, and constipation, Back: Negative for injury and pain, : Negative for injury, bleeding, discharge, and swelling, MS/Extremity: Negative for injury and deformity, Skin: Negative for injury, rash, and discoloration, Neuro: Negative for headache, weakness, numbness, tingling, and seizure, Psych: Negative for depression, anxiety, suicide ideation, homicidal ideation, and hallucinations, Allergy/Immunology: Negative for hives, rash, and allergies, Endocrine: Negative for neck swelling, polydipsia, polyuria, polyphagia, and marked weight changes, Hematologic/Lymphatic: Negative for swollen nodes, abnormal bleeding, and unusual bruising. ENT: Positive for difficulty swallowing, rhinorrhea, sore throat. Exam: 02:08 Constitutional: This is a well developed, well nourished patient who is awake, alert, sidney and in no acute distress. Head/Face: Normocephalic, atraumatic. Eyes: Pupils equal round and reactive to light, extra-ocular motions intact. Lids and lashes normal. Conjunctiva and sclera are non-icteric and not injected. Cornea within normal limits. Periorbital areas with no swelling, redness, or edema. Neck: Trachea midline, no thyromegaly or masses palpated, and no cervical lymphadenopathy. Supple, full range of motion without nuchal rigidity, or vertebral point tenderness. No Meningismus. Chest/axilla: Normal chest wall appearance and motion. Nontender with no deformity. No lesions are appreciated. Cardiovascular: Regular rate and rhythm with a normal S1 and S2. No gallops, murmurs, or rubs. Normal PMI, no JVD. No pulse deficits. Respiratory: Lungs have equal breath sounds bilaterally, clear to auscultation and percussion. No rales, rhonchi or wheezes noted. No increased work of breathing, no retractions or nasal flaring. Abdomen/GI: Soft, non-tender, with normal bowel sounds. No distension or tympany. No guarding or rebound. No evidence of tenderness throughout. Back: No spinal tenderness. No costovertebral tenderness. Full range of motion. Skin: Warm, dry with normal turgor. Normal color with no rashes, no lesions, and no evidence of cellulitis. MS/ Extremity: Pulses equal, no cyanosis. Neurovascular intact. Full, normal range of motion. Neuro: Awake and alert, GCS 15, oriented to person, place, time, and situation. Cranial nerves II-XII grossly intact. Motor strength 5/5 in all extremities. Sensory grossly intact. Cerebellar exam normal. Normal gait. Psych: Awake, alert, with orientation to person, place and time. Behavior, mood, and affect are within normal limits. 02:08 ENT: Posterior pharynx: Tonsils: with erythema, Uvula: normal, non-edematous, no erythema, swelling, that is mild, erythema, that is mild, exudate, is not appreciated, peritonsillar mass, is not appreciated, pooling of secretions, is not appreciated. Vital Signs: 01/23 22:38 BP 150 / 103; Pulse 86; Resp 18; Temp 97.9; Pulse Ox 97% on R/A; Weight 125.19 kg (R); jb4 Height 5 ft. 4 in. (162.56 cm) (R); Pain 4/10; 01/24 00:36 BP 151 / 103; Pulse 77; Temp 98.7; Pulse Ox 99% on R/A; wm 01:56 BP 132 / 88; Pulse 81; Resp 16 S; Pulse Ox 95% on R/A; bb 01/23 22:38 Body Mass Index 47.37 (125.19 kg, 162.56 cm) jb4 MDM: 00:32 Patient medically screened. sidney 02:10 Differential diagnosis: Allergic rhinitis, bronchitis, group A strep tonsillitis, sidney influenza, laryngitis, peritonsillar abscess pharyngitis. Differential Diagnosis: Bronchitis Influenza Upper Respiratory Infection Sinusitis Pharyngitis Pneumonia. Data reviewed: vital signs, nurses notes, lab test result(s), Flu: negative radiologic studies. Data interpreted: awake overnight monitor: rate is 81 beats/min, rhythm is regular, Pulse oximetry: on room air. Test interpretation: by ED physician or midlevel provider: plain radiologic studies. Counseling: I had a detailed discussion with the patient and/or guardian regarding: the historical points, exam findings, and any diagnostic results supporting the discharge/admit diagnosis, lab results, radiology results, the need for outpatient follow up, for definitive care, a family practitioner, a hospice liaison. 01/23 22:40 Order name: COVID-19/FLU A+B (Document "Date of Onset" if Symptomatic); Complete Time: usman 01:41 01/23 22:41 Order name: Strep; Complete Time: :41 [facility] 01/24 00:33 Order name: Chest Pa And Lat (2 Views) XRAY sidney 01/24 01:15 Order name: Throat Culture EDMS Administered Medications: 02:17 Drug: Zithromax (azithromycin) 500 mg Route: PO; bb 02:25 Follow up: Response: Medication administered at discharge. bb Disposition Summary: 01/24/22 02:12 Discharge Ordered Location: Home [facility] Problem: new [facility] Symptoms: have improved [facility] Condition: Stable [facility] Diagnosis - Coronavirus infection, unspecified [facility] - Acute pharyngitis, unspecified sidney Followup: [facility] - With: Private Physician - When: 2 - 3 days - Reason: Recheck today's complaints, Continuance of care, Re-evaluation by your physician Discharge Instructions: - Discharge Summary Sheet [facility] - Laryngitis sidney - Pharyngitis sidney - Sore Throat sidney - Strep Throat, Adult sidney - Upper Respiratory Infection, Adult sidney - Pharyngitis, Niwj-dt-Fgpy sidney - Sore Throat, Eelc-sx-Lzmo sidney - COVID-19 [facility] Forms: - Medication Reconciliation Form [facility] - Thank You Letter [facility] - Antibiotic Education [facility] - Prescription Opioid Use [facility] Prescriptions: - Zithromax Z-Ch[place] 250 mg Oral Tablet - take 1 tablet by ORAL route as directed for 5 days Day 1 - take two (2) tablets [facility] one time. Day 2, 3, 4 , 5 take one (1) tablet once daily.; 6 tablet; Refills: 0, Product Selection Permitted - gpivsdgnwripshx-pjphzlchg-XA 2-30-10 mg/5 mL Oral syrup - take 7.5 milliliter by ORAL route every 6 hours; 160 milliliter; Refills: 0, la1 Product Selection Permitted Signatures: Dispatcher [employer] EDMS Hardy Yee MD MD cha Ballard, Brenda, RN RN Hong Blanco RN RN jb4
[2022-01-24] MEDS ORDERED: AZITHROMYCIN 250 MG TAB ONE (02:22)
[2022-01-24 03:38] VITALS: TEMP 98.7
[2022-01-24 03:39] VITALS: BP 132/88; O2SAT 95
--- NOTE | 2022-01-24 21:45 | RAD REPORT ---
EXAM DESCRIPTION: RAD - Chest Pa And Lat (2 Views) - 01/24/2022 12:56 am CLINICAL HISTORY: 46 years, Female, COUGH COMPARISON: 12/31/2021 FINDINGS: Single view of the chest was obtained portable. Prior films were compared. The cardiomed iastinal silhouette demonstrate to be unremarkable. The heart is not enlarged. The thoracic aorta is mildly tortuous. The pulmonary vasculature is normal distribution. Costophrenic angles are sharp. No areas of consolidation or masses are seen. The rest of the soft tissue and bony structures demo nstrate to be unremarkable. IMPRESSION: No acute cardiopulmonary disease. Electronically signed by: Dio Webster MD 01/24/2022 1:19 AM CDT Due to temporary technical issues with the PACS/Fluency reporting system, reports are being signed by the in house radiologists without review as a courtesy to insure prompt reporting. The interpreting radiologist is fully responsible for the content of the report.
== END 2022-01-24 02:25 | disposition home or self-care (01) ==
LOC: ER 22:15
DX: U07.1 COVID-19 (principal); J02.9 Acute pharyngitis, unspecified; I10 Essential (primary) hypertension; I48.91 Unspecified atrial fibrillation
CPT/HCPCS: 87070; 87081; 0240U; 71046; 99284

== ENCOUNTER 2022-02-10 14:52 | Emergency (ER) | payer OTHER ==
--- OUTSIDE RECORDS SUMMARY | 2022-02-10 14:55 | XMS REPORT | Continuity of Care Document ---
:1975 Author Organization [facility] t Address [address] [place] [address] Care Team Providers Name Role Phone Morena [...] rs active active ity of problems problems [facility] Allergies, Adverse Reactions, Alerts Allergy Allergy Status Severity Reaction(s) Onset Inactive Treating Comm ents Source Name Type Date Date Clinician No Known DA Active U 2020-09 [facility] Allergie 0-28 [facility] 00:00: d 00 [facility] No Known DA Active U 2020-09 [facility] Allergie 0-28 [facility] 00:00: d 00 [facility] NO KNOWN Drug Active Univers ALLERGIE Class ity of S [facility] Social History Social Habit Start Date Stop Date Quantity Comments Source Sex Assigned At [birth year] [facility] [place] 00:00:00 00:00:00 [facility] Smoking Status Start Date Stop Date Source Unknown if ever smoked [facility] Medications Ordered Filled Start Stop Current Ordering Indication Dosage Frequency Signature Comments Components Source Medication Medication Date Date Medication? Clinician (SIG) Name Name No known 2020-09 No Univers medications 0-09 ity of 19:54: [address] Pantoprazol Pantoprazol Yes Na Lopez 1 tablet Common e Sodium e Sodium 05-04 Spirit 00:00: - [facility] 00 [facility] Ergocalcife Ergocalcife 2018-09- No Na Lopez 1 capsule Common rol rol 10-12 [facility] 00:00: 00:00 - [facility] 00 :00 [facility] Paxil Paxil Yes Na Lopez 1 tablet Comm on 12-26 in the Spirit 00:00: morning - 00 [facility] Humira Humira Yes Na Lopez not Common defined [facility] Aspirin Aspirin Yes Na Lopez not Common [facility] BusPIRone BusPIRone Yes Na Lopez 1 tablet Common HCl HCl [facility] Metoprolol Metoprolol Yes Na Lopez 1 tablet Common Tartrate Tartrate with food [facility] Vital Signs Vital Name Observation Time Observation Value Comments Source Systolic blood 2021-07-04 00:50:00 180 mm[Hg] [facility]iver [facility]ity [facility] Diastolic blood 2021-07-04 00:50:00 110 mm[Hg] [facility] Heart rate 2021-07-04 00:50:00 79 /min [facility] acute hospital Body temperature 2021-07-04 00:50:00 36.67 Gem [facility] Respiratory rate 2021-07-04 00:50:00 18 /min [facility] Body weight 2021-07-04 00:50:00 121.564 kg General acute hospital Oxygen saturation in 2021-07-04 00:50:00 99 /min [facility] blood by [facility] Pulse oximetry Branch Procedures Procedure Date / Time Performed Performing Clinician Marta e XR CHEST 1 VW 2021-07-04 01:14:37 Raissa Tran [facility] NOTICE OF PRIVACY 2021-07-04 00:45:31 Doctor Unassigned, No Univ [facility] PRACTICES Name Medical Branch CONSENT/REFUSAL FOR 2021-07-04 00:45:10 Doctor Unassigned, No [facility] DI[facility]NOSIS AND Name Medical Branch TREATMENT Encounters Start End Encounter Admission Attending Care Care Encounter Source Date/Time Date/Time Type Type Clinicians Facility Department ID 2022-01-04 Outpatient Lopez, Na STLMLC STLMLC [id number] Common 09:31:01 [id number] [facility] 2021-10-20 Outpatient Lopez, Na STLMLC STLMLC [id number] Common 14:09:55 [id number] [facility] 2021-10-20 Outpatient Lopez, Na STLMLC STLMLC [id number] 2 Common 13:47:22 [id number] [facility] 2021-10-20 Outpatient Lopez, Na STLMLC STLMLC [id number] 2 Common 12:29:04 [id number] [facility] 2021-10-20 Outpatient Lopez, Na STLMLC STLMLC [id number] 2 Common 12:03:44 [id number] [facility] 2021-10-20 Outpatient Lopez, Na STLMLC STLMLC [id number] 2 Common 12:03:05 [id number] [facility] 2021-10-20 Outpatient Lopez, Na STLMLC STLMLC [id number] 2 Common 11:43:49 [id number] [facility] 2021-10-20 Outpatient Lopez, Na STLMLC STLMLC [id number] 2 Common 11:35:56 [id number] [facility] 2021-10-20 Outpatient Lopez, Na STLMLC STLMLC [id number] 2 Common 11:18:09 [id number] [facility] 2021-10-20 Outpatient Lopez, Na STLMLC STLMLC [id number] 2 Common 11:04:54 [id number] [facility] 2021-10-20 Outpatient Lopez, Na STLMLC STLMLC [id number] 2 Common 11:04:25 [id number] [facility] 2022-01-27 2022-01-27 ambulatory STLMLC STLMLC [id number] Common 00:00:00 00:00:00 [facility] 2022-01-26 2022-01-26 ambulatory STLMLC STLMLC [id number] Common 00:00:00 00:00:00 [facility] 2022-01-18 2022-01-18 ambulatory STLMLC STLMLC [id number] Common 00:00:00 00:00:00 [facility] 2022-01-05 2022-01-05 ambulatory STLMLC STLMLC [id number] Common 00:00:00 00:00:00 [facility] 2021-12-28 2021-12-28 ambulatory STLMLC STLMLC [id number] Common 00:00:00 00:00:00 [facility] 2021-11-15 2021-11-15 ambulatory STLMLC STLMLC [id number] Common 00:00:00 00:00:00 [facility] 2021-11-11 2021-11-11 ambulatory STLMLC STLMLC [id number] Common 00:00:00 00:00:00 [facility] 2021-09-28 2021-09-28 ambulatory STLMLC STLMLC [id number] Common 00:00:00 00:00:00 [facility] 2021-08-27 2021-08-27 ambulatory STLMLC STLMLC [id number] Common 00:00:00 00:00:00 [facility] 2021-08-04 2021-08-04 ambulatory STLMLC STLMLC [id number] Common 00:00:00 00:00:00 [facility] 2021-08-02 2021-08-02 ambulatory STLMLC STLMLC [id number] Common 00:00:00 00:00:00 [facility] 2021-07-22 2021-07-22 Outpatient Vanesa Nunez [facility] RADI LA5 [id number] [facility] 08:00:00 08:00:[id number] [facility] 2021-07-22 2021-07-22 Outpatient Vanesa Cheung HCAPM RADI LA0 [id number] [facility] 07:26:00 07:26:[address] [facility] 2021-07-03 2021-07-03 Emergency Marc, [facility] [id number] Univers 19:47:00 21:16:00 [id number] [facility] [id number] [place] [address] Branch 2021-07-03 2021-07-03 Emergency X [facility] ERT [id number] Univers 19:47:00 19:47:00 ity [facility] 2021-06-07 2021-06-07 Outpatient STLMLC STLMLC [id number] Common 00:00:00 00:00:00 [facility] 2021-05-06 2021-05-06 Outpatient STLMLC STLMLC [id number] Common 00:00:00 00:00:00 [facility] 2021-04-28 2021-04-28 Outpatient STLMLC STLMLC [id number] Common 00:00:00 00:00:00 [facility] 2021-04-27 2021-04-27 Outpatient STLMLC STLMLC [id number] Common 00:00:00 00:00:00 [facility] 2021-03-15 2021-03-15 Outpatient STLMLC STLMLC [id number] Common 00:00:00 00:00:00 [facility] 2021-01-04 2021-01-04 Outpatient STLMLC STLMLC [id number] Common 00:00:00 00:00:00 [facility] 2020-11-03 2020-11-03 Outpatient STLMLC STLMLC [id number] Common 00:00:00 00:00:00 [facility] 2020-08-03 2020-08-03 Outpatient STLMLC STLMLC [id number] Common 00:00:00 00:00:00 [facility] 2020-05-04 2020-05-04 [facility] [id number] Common 10:10:00 10:10:00 [place] [address] [facility] 2020-05-01 2020-05-01 [facility] [id number] Common 09:40:00 09:40:00 [place] [address] [facility] 2020-02-19 2020-02-19 [facility] [id number] Common 16:06:00 16:06:00 t [facility] [address] [facility] 2019-12-12 2019-12-12 [facility] [id number] Common 15:41:00 15:41:00 t [place] [address] [facility] 2019-09-16 2019-09-16 [facility] [id number] Common 14:40:00 14:40:00 t [place] [address] [facility] 2019-08-15 2019-08-15 [facility] [id number] Common 09:27:00 09:27:00 t [place] [address] [facility] 2019-08-12 2019-08-12 [facility] [id number] Common 09:00:00 09:00:00 t [place] [address] [facility] 2019-07-31 2019-07-31 [facility] [id number] Common 11:46:00 11:46:00 t [place] [address] [facility] 2019-07-29 2019-07-29 [facility] [id number] Common 09:40:00 09:40:00 t [place] [address] [facility] 2019-06-02 2019-06-02 [facility] [id number] Common 09:38:00 09:38:00 [facility] 2019-05-31 2019-05-31 [facility] [id number] Common 11:30:00 11:30:00 t [facility] S [facility] 2018-01-19 2018-01-19 Outpatient Dolores Bernalt [id number] Common 08:11:00 08:11:00 t [place] [address] [facility] 2018-01-18 2018-01-18 Outpatient Dolores Bernalt [id number] Common 10:15:00 10:15:00 t [place] [address] [facility] 2017-12-26 2017-12-26 Outpatient [facility]ores [facility] [id number] Common 09:30:00 09:30:00 t [place] [address] [facility] Results Test Description Test Time Test Comments Results Result Comments Source SARS-CoV-2 (COVID-19), RT-PCR/TMA 2021-12-10 07:26:55 Test Item Value Reference Range Interpretation Comme nts SARS-CoV-2 INTERPRETATION NEGATIVE SEE NOTE S ARS-CoV-2 RNA NOT (test code = 25302) DETECTED Negative results do not preclude SARS-C [...] ORDER CODE 3509. SOURCE (test code = 19039) NASOPHARYNGEAL Note: Methodology is [employer]as Real-Time RT-PC R. The expected result or ref erence range is NEGATIVE (Not D etected). For more information reg arding COVID-19 testing to incl ude clinicalinforma tion, methodology detail, intende d use, FDA authorization a ndrecommended fact sheets for carlos ents or healthcare providers, see [facility] Announcement: S ARS-CoV-2 (COVID-19) by N AAT at URL below (note,fact shee ts are provided by method given in report:https:// www.[employer]/cl inicians/client -communications/ Alternatively, see downloadable PDF fact sheet at:https://www. [employer]/COVID- 19-RT-PCR UNLESS OTHERWISE INDICATED, ALL TESTING PERFORMED ATCLINICAL PATH OLOGY [facility], [place] [address] 4 LABORATORY DIRE CTOR: PRUDENCE SOLIS M.D. CLIA NUMBER [id number] [place]. [id number] - CT ABD PELVIS [id number] 09:50:00 [facility] 1975 Sex: F Name: SHE FITZGERALD [facility] : 1975Age/S: 46 / F [address] Unit #: [id number] Loc: [place] [address] Phys: Vanesa Nunez MD Acct: [id number] Dis Date: Status: REG CLI PHONE#: [phone] Exam Date: 07/22/202118 FAX #: Reason:CROHNS DISEASE, UNSPECIFIED, WITHOUT COMPLICATI EXAMS: CPT: [id number] CT ABD PELVIS W/CONT 22776 HISTORY: CROHN'S DISEASE, UNSPECIFIED, WITHOUT COMPLICATIONS TECHNIQUE: [...] 1 Signed Report (CONTINUED) Name: SHE FERNANDEZ [place] : 1975 Age/S: 46 / F [address] [facility] [address] Unit #: [id number] Loc: [place] [address] Phys: Vanesa Nunez MD Acct: [id number] Dis Date: Status: REG CLI PHONE #: [phone] Exam Date: 07/22/2021 0918 FAX #: Reason: CROHNS DISEASE, UNSPECIFIED, WITHOUT COMPLICATI EXAMS: CPT:[id number] CT ABD PELVIS W/CONT 16434 <Continued> IMPRESSION: 1. There is mild diffuse [...] RT(R) CTDI: DLP: Trnscb Date/Time: 07/22/2021 (0950) [id number] Orig Print D/T: S: 07/22/2021 (5024) PAGE 2 Signed Report [id number] 08:27:00 Test Item Value Reference Range Interpretation Comments ISTAT-BUN (test code = BUNP) 8 mg/dL 8-26 N BEDSIDE [id number] 08:27:00 Test Item Value Reference Range Interpretation Comments BEDSIDE CREATININE (test code = 0.6 mg/dL 0.6-1.3 N CREATBED)
[2022-02-10 16:45] LABS: Urine Blood Negative (Negative); Urine Glucose Negative (Negative); Urine Protein Negative (Negative); Urine Specific Gravity >=1.030 (1.005-1.030); Urine pH 5.5 (5.0-7.0)
[2022-02-10] MEDS ORDERED: NA CHLORIDE 0.9% 1,000 ML ONE (16:53)
[2022-02-10 17:03] LABS: Absolute Lymphocytes (CBC) 2.6 K/uL (0.7-4.9); Hematocrit 41.6 % (36.0-45.0); Lymphocytes % 35.3 % (15.3-44.8); RBC Red Blood Cell Count 5.32 M/uL (3.86-4.86)
[2022-02-10 17:06] LABS: Protime INR 0.97
--- NOTE | 2022-02-10 17:12 | RAD REPORT ---
EXAM DESCRIPTION: RAD - Chest Single View - 02/10/2022 5:07 pm CLINICAL HISTORY: COUGH Chest pain. COMPARISON: Chest Pa And Lat (2 Views) dated 01/24/2022; Chest Single View dated 12/31/2021; Chest Singl e View dated 12/09/2021; Chest Single View dated 05/24/2021 FINDINGS: Portable technique limits examination quality. The lungs are grossly clear. The heart is normal in size. No displaced fractures. IMPRESSION: No acute intrathoracic process suspected.
[2022-02-10 17:13] LABS: Albumin 3.5 g/dL (3.4-5.0); Bilirubin Direct 0.1 mg/dL (0-0.2); Bilirubin Total 0.4 mg/dL (0.2-1.0); Magnesium 1.9 mg/dL (1.8-2.4); Potassium 3.7 mmol/L (3.5-5.1); Protein, Total 8.7 g/dL (6.4-8.2)
[2022-02-10 17:16] LABS: Troponin High Sensitivity 4.8 pg/mL (<58.9)
--- NOTE | 2022-02-10 19:00 | RAD REPORT ---
EXAM DESCRIPTION: US - Extrem Venous W Compress Jerome - 02/10/2022 6:05 pm CLINICAL HISTORY: PAIN Bilateral leg edema and swelling. COMPARISON: Extremity Venous Uni Ltd dated 02/24/2021 TECHNIQUE: Real-time sonographic interrogation of the left and right lower extremity deep venous sys tems was performed. FINDINGS: Normal compressibility, flow augmentation, phasic flow and spontaneous flow is identified in both the left and right lower extremity deep venous systems. IMPRESSION: No sonographic evidence of left or right lower extremity deep venous thrombosis.
--- NOTE | 2022-02-10 19:04 | RAD REPORT ---
EXAM DESCRIPTION: CT - Chest For Pe Angio - 02/10/2022 6:15 pm CLINICAL HISTORY: Chest pain. cp COMPARISON: Chest For Pe Angio dated 01/04/2022 TECHNIQUE: CT angiogram of the pulmonary arteries was performed with MIP. All CT scans are performed using dose optimization technique as appropriate and may include automated exposure control or mA/KV adjustment according to patient size. FINDINGS: No evidence of pulmonary thromboembolism. No acute aortic finding demonstrated. The lungs are clear. No significant pericardial or pleural fluid. No concerning bony finding. IMPRESSION: No evidence of pulmonary thromboembolism. No acute lung findings.
--- NOTE | 2022-02-10 19:27 | ER ---
Nurse's Notes [facility] Name: Dori Guardado Age: 47 yrs Sex: Female : 1975 Arrival Date: 02/10/2022 Time: 14:54 Bed 23 Private MD: Diagnosis: Cough;Obesity, unspecified;Coronavirus infection, unspecified Presentation: 02/10 15:09 Chief complaint: Patient states: COVID + on January 23. Now I have developed thrush and it ld1 hurts really bad. Reports sore throat and possibly dehydrated. Coronavirus screen: At this time, the client does not indicate any symptoms associated with coronavirus-19. Ebola Screen: No symptoms or risks identified at this time. Initial Sepsis Screen: Does the patient meet any 2 criteria? No. Patient's initial sepsis screen is negative. Does the patient have a suspected source of infection? No. Patient's initial sepsis screen is negative. Risk Assessment: Do you want to hurt yourself or someone else? Patient reports no desire to harm self or others. Onset of symptoms was February 10, 2022. 15:09 Method Of Arrival: Ambulatory ld1 15:09 Acuity: KASH 4 ld1 18:28 Acuity: KASH 3 iw Triage Assessment: 15:10 General: Appears in no apparent distress. comfortable, Behavior is calm, cooperative, ld1 appropriate for age. Pain: Complains of pain in uvula, left aspect of posterior pharynx and right aspect of posterior pharynx Pain does not radiate. Pain currently is 6 out of 10 on a pain scale. EENT: Reports sore throat. Cardiovascular: Capillary refill < 3 seconds Patient's skin is warm and dry. Respiratory: Airway is patent Respiratory effort is even, unlabored, Respiratory pattern is regular, symmetrical. 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 - Social history:: Smoking status: Patient denies any tobacco usage or history of. Patient/guardian denies using alcohol. Screenin:39 Abuse screen: Denies threats or abuse. Denies injuries from another. Nutritional de screening: No deficits noted. Tuberculosis screening: No symptoms or risk factors identified. Fall Risk None identified. Assessment: 15:39 General: Appears in no apparent distress. Behavior is calm, cooperative. Pain: de Complains of pain in sore throat. 15:40 Respiratory: Reports pain with cough Pain is 8 out of 10 on a pain scale. EENT: Throat de is reddened Reports difficulty swallowing. 19:53 Reassessment: Patient states feeling better. Patient states symptoms have improved. tw5 Neuro: No deficits noted. Cardiovascular: No deficits noted. Vital Signs: 15:09 BP 153 / 104; Pulse 99; Resp 18; Temp 98.3(O); Pulse Ox 98% on R/A; Weight 125.19 kg; ld1 Height 5 ft. 4 in. (162.56 cm); Pain 6/10; 19:53 BP 144 / 99; Pulse 83; Resp 18; Pulse Ox 100% on R/A; Pain 0/10; tw5 15:09 Body Mass Index 47.37 (125.19 kg, 162.56 cm) ld1 ED Course: 14:54 Patient arrived in ED. as 15:02 Hardy Yee MD is Attending Physician. sidney 15:10 Triage completed. ld1 15:10 Arm band placed on right wrist. ld1 15:39 Gina Mancilla, RN is Primary Nurse. de 15:39 Patient has correct armband on for positive identification. Bed in low position. de 15:39 No provider procedures requiring assistance completed. de 17:09 XRAY Chest (1 view) In Process Unspecified. EDMS 17:17 EKG done, by ED staff, reviewed by Hardy Yee MD. dh3 18:07 US Extremity Venous W Compression Jerome In Process Unspecified. EDMS 18:17 CT Chest For PE Angio In Process Unspecified. EDMS 19:53 IV discontinued, intact, bleeding controlled, No redness/swelling at site. Pressure tw5 dressing applied. Administered Medications: 16:58 Drug: NS 0.9% 1000 ml Route: IV; Rate: 1 bolus; Site: left antecubital; de 19:53 Follow up: Response: No adverse reaction; IV Status: Completed infusion; IV Intake: tw5 1000ml Medication: 15:39 VIS not applicable for this client. Intake: 19:53 IV: 1000ml; Total: 1000ml. tw5 Outcome: 19:25 Discharge ordered by . sidney :53 Discharged to home ambulatory. tw5 19:53 Condition: improved 19:53 Discharge instructions given to patient, Instructed on discharge instructions, follow up and referral plans. Demonstrated understanding of instructions, follow-up care. 19:53 Patient left the ED. tw5 Signatures: Dispatcher [employer] EDMS Hardy Yee MD MD cha Martinez, Amelia as Williams, Irene, RN LEONA Skylar Sommer 3 Georgia Dawkins RN RN ld1 Maci Lau tw5 Au-Stager, LEONA Fuentes RN Corrections: (The following items were deleted from the chart) 19:12 16:47 SARS-COV-2 RT PCR+[email or web address] drawn and sent. [facility]
--- NOTE | 2022-02-10 19:27 | EDPHYS ---
Physician Documentation [facility] Name: Dori Guardado Age: 47 yrs Sex: Female : 1975 Arrival Date: 02/10/2022 Time: 14:54 Bed 23 Private MD: ED Physician Hardy Yee HPI: 02/10 16:09 This 47 yrs old Black Female presents to ER via Ambulatory with complaints of Thrush, sidney Painful Cough, dehydration. 16:09 The patient or guardian reports cough, described as mild, difficulty breathing, flu sidney symptoms, myalgias. Onset: The symptoms/episode began/occurred 2 day(s) ago. Severity of symptoms: At their worst the symptoms were mild, in the emergency department the symptoms are unchanged. Modifying factors: The symptoms are alleviated by nothing, the symptoms are aggravated by nothing. Associated signs and symptoms: The patient has no apparent associated signs or symptoms. The patient has not experienced similar symptoms in the past. 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 - Social history:: Smoking status: Patient denies any tobacco usage or history of. Patient/guardian denies using alcohol. ROS: 16:10 Constitutional: Negative for fever, chills, and weight loss, Eyes: Negative for injury, sidney pain, redness, and discharge, ENT: Negative for injury, pain, and discharge, Neck: Negative for injury, pain, and swelling, Cardiovascular: Negative for chest pain, palpitations, and edema, Abdomen/GI: Negative for abdominal pain, nausea, vomiting, diarrhea, and constipation, Back: Negative for injury and pain, : Negative for injury, bleeding, discharge, and swelling, MS/Extremity: Negative for injury and deformity, Skin: Negative for injury, rash, and discoloration, Neuro: Negative for headache, weakness, numbness, tingling, and seizure, Psych: Negative for depression, anxiety, suicide ideation, homicidal ideation, and hallucinations, Allergy/Immunology: Negative for hives, rash, and allergies, Endocrine: Negative for neck swelling, polydipsia, polyuria, polyphagia, and marked weight changes, Hematologic/Lymphatic: Negative for swollen nodes, abnormal bleeding, and unusual bruising. 16:10 Respiratory: Positive for cough, "sounds productive". Exam: 16:10 Constitutional: This is a well developed, well nourished patient who is awake, alert, sidney and in no acute distress. Head/Face: Normocephalic, atraumatic. Eyes: Pupils equal round and reactive to light, extra-ocular motions intact. Lids and lashes normal. Conjunctiva and sclera are non-icteric and not injected. Cornea within normal limits. Periorbital areas with no swelling, redness, or edema. ENT: Nares patent. No nasal discharge, no septal abnormalities noted. Tympanic membranes are normal and external auditory canals are clear. Oropharynx with no redness, swelling, or masses, exudates, or evidence of obstruction, uvula midline. Mucous membranes moist. Neck: Trachea midline, no thyromegaly or masses palpated, and no cervical lymphadenopathy. Supple, full range of motion without nuchal rigidity, or vertebral point tenderness. No Meningismus. Chest/axilla: Normal chest wall appearance and motion. Nontender with no deformity. No lesions are appreciated. Cardiovascular: Regular rate and rhythm with a normal S1 and S2. No gallops, murmurs, or rubs. Normal PMI, no JVD. No pulse deficits. Respiratory: Lungs have equal breath sounds bilaterally, clear to auscultation and percussion. No rales, rhonchi or wheezes noted. No increased work of breathing, no retractions or nasal flaring. Abdomen/GI: Soft, non-tender, with normal bowel sounds. No distension or tympany. No guarding or rebound. No evidence of tenderness throughout. Back: No spinal tenderness. No costovertebral tenderness. Full range of motion. Female : Normal external genitalia. Skin: Warm, dry with normal turgor. Normal color with no rashes, no lesions, and no evidence of cellulitis. MS/ Extremity: Pulses equal, no cyanosis. Neurovascular intact. Full, normal range of motion. Neuro: Awake and alert, GCS 15, oriented to person, place, time, and situation. Cranial nerves II-XII grossly intact. Motor strength 5/5 in all extremities. Sensory grossly intact. Cerebellar exam normal. Normal gait. Psych: Awake, alert, with orientation to person, place and time. Behavior, mood, and affect are within normal limits. 16:10 Musculoskeletal/extremity: DVT Exam: No signs of deep vein thrombosis. no pain, no swelling, no tenderness, negative Homans' sign noted on exam, no appreciated bluish discoloration, no erythema, no increased warmth. 17:56 ECG was reviewed by the Attending Physician. [facility] Vital Signs: 15:09 BP 153 / 104; Pulse 99; Resp 18; Temp 98.3(O); Pulse Ox 98% on R/A; Weight 125.19 kg; ld1 Height 5 ft. 4 in. (162.56 cm); Pain 6/10; 19:53 BP 144 / 99; Pulse 83; Resp 18; Pulse Ox 100% on R/A; Pain 0/10; tw5 15:09 Body Mass Index 47.37 (125.19 kg, 162.56 cm) ld1 MDM: 15:02 Patient medically screened. [facility] 16:11 Differential Diagnosis: Bronchitis Influenza Upper Respiratory Infection Sinusitis sidney Pharyngitis Otitis Media Viral Syndrome Pneumonia. Data reviewed: vital signs, nurses notes, lab test result(s), EKG, radiologic studies, plain films. Data interpreted: telemetry monitor: rate is 99 beats/min, rhythm is regular, Pulse oximetry: on room air is 98 %. Test interpretation: by ED physician or midlevel provider: ECG, plain radiologic studies. Counseling: I had a detailed discussion with the patient and/or guardian regarding: the historical points, exam findings, and any diagnostic results supporting the discharge/admit diagnosis, lab results, radiology results, the need for outpatient follow up, for definitive care, a family practitioner. 02/10 16:08 Order name: Basic Metabolic Panel; Complete Time: 17:30 [facility] 02/10 16:08 Order name: CBC with Diff; Complete Time: 17:30 [facility] 02/10 16:08 Order name: D-Dimer; Complete Time: 19:00 [facility] 02/10 16:08 Order name: LFT's; Complete Time: 17:30 [facility] 02/10 16:08 Order name: Magnesium; Complete Time: 17:30 [facility] 02/10 16:08 Order name: NT PRO-BNP; Complete Time: 17:30 [facility] 02/10 16:08 Order name: PT-INR; Complete Time: 19:00 [facility] 02/10 16:08 Order name: Troponin HS; Complete Time: 17:30 [facility] 02/10 16:08 Order name: XRAY Chest (1 view); Complete Time: 17:30 [facility] 02/10 16:08 Order name: Flu; Complete Time: 17:30 [facility] 02/10 16:08 Order name: Lipase; Complete Time: 17:30 [facility] 02/10 16:46 Order name: Urine Dipstick-Ancillary; Complete Time: 17:03 [facility] 02/10 19:11 Order name: SARS-COV-2 RT PCR; Complete Time: 19:24 [facility] 02/10 16:08 Order name: EKG; Complete Time: 16:09 [facility] 02/10 16:08 Order name: Cardiac monitoring; Complete Time: 16:47 [facility] 02/10 16:08 Order name: EKG - Nurse/Tech; Complete Time: 17:24 [facility] 02/10 16:08 Order name: IV Saline Lock; Complete Time: 16:47 [facility] 02/10 16:08 Order name: Labs collected and sent; Complete Time: 16:47 [facility] 02/10 16:08 Order name: O2 Per Protocol; Complete Time: 16:47 [facility] 02/10 16:08 Order name: O2 Sat Monitoring; Complete Time: 16:47 [facility] 02/10 16:08 Order name: Urine Dipstick-Ancillary (obtain specimen); Complete Time: 16:44 [facility] 02/10 17:35 Order name: US Extremity Venous W Compression Jerome; Complete Time: 19:24 [facility] 02/10 17:35 Order name: CT Chest For PE Angio; Complete Time: 19:24 [facility] EC:56 Rate is 83 beats/min. Rhythm is regular. QRS [place] is Normal. OR interval is normal. QRS sidney interval is normal. QT interval is normal. No Q waves. T waves are Normal. No ST changes noted. Clinical impression: Normal ECG and No evidence of ischemia. Interpreted by me. Reviewed by me. Administered Medications: 16:58 Drug: NS 0.9% 1000 ml Route: IV; Rate: 1 bolus; Site: left antecubital; de 19:53 Follow up: Response: No adverse reaction; IV Status: Completed infusion; IV Intake: tw5 1000ml Disposition Summary: 02/10/22 19:25 Discharge Ordered Location: Home [facility] Problem: new sidney Symptoms: have improved sidney Condition: Stable sidney Diagnosis - Cough sidney - Obesity, unspecified sidney - Coronavirus infection, unspecified sidney Followup: sidney - With: Private Physician - When: 2 - 3 days - Reason: Recheck today's complaints, Continuance of care, Re-evaluation by your physician Discharge Instructions: - Discharge Summary Sheet sidney - Obesity, Adult sidney - Cool Mist Vaporizer sidney - Cough, Adult, Fazl-sb-Cyan sidney - Cough, Adult sidney Forms: - Medication Reconciliation Form sidney - Thank You Letter sidney - Antibiotic Education sidney - Prescription Opioid Use [facility] Signatures: Dispatcher [employer] EDMS Hardy Yee MD MD cha Dibbern, Lauren RN RN ld1 Gina Mancilla RN RN Maci [place] tw5 Corrections: (The following items were deleted from the chart) 19:12 16:09 SARS-COV-2 RT PCR+[email or web address].BRZ ordered. EDWA EDMS 19:12 19:00 SARS-COV-2 RT PCR+MOL.[email or web address].BRZ reviewed. [facility] EDMS
[2022-02-10 20:10] VITALS: TEMP 98.3
[2022-02-10 20:21] VITALS: BP 144/99; O2SAT 100
--- NOTE | 2022-02-12 11:08 | EKG ---
Test Date: 2022-02-10 Test Time: 17:03:55 [employer]: LO MEASUREMENT RESULTS: Intervals: Rate: 83 ID: [id number] QRSD: 82 QT: 362 QTc: 425 Acosta: P: 45 ID: [id number] QRS: -2 T: 17 INTERPRETIVE STATEMENTS: Normal sinus rhythm Normal ECG Compared to ECG 01/03/2022 21:51:03 No significant changes Electronically Signed On 02-12-22 11:07:02 CDT by Matthew Lofton
== END 2022-02-10 19:53 | disposition home or self-care (01) ==
LOC: ER 14:52
DX: U07.1 COVID-19 (principal); E66.9 Obesity, unspecified; Z68.42 Body mass index [BMI] 45.0-49.9, adult; I10 Essential (primary) hypertension; I48.91 Unspecified atrial fibrillation
CPT/HCPCS: 96361; 93005; 85025; 80048; 36415; 83735; 85610; 85379; 80076; 81003; 84484; 83690; 83880; 87804 ×2; 71275; 71045; 93970; 96360; 99283; U0003; Q9967; J7030

== ENCOUNTER 2022-02-20 02:25 | Emergency (ER) | payer OTHER ==
--- OUTSIDE RECORDS SUMMARY | 2022-02-20 02:28 | XMS REPORT | Continuity of Care Document ---
:1975 Author Organization [facility] t Address [address] [place] [address] Care Team Providers Name Role Phone Morena [...] rs active active ity of problems problems [facility] Allergies, Adverse Reactions, Alerts Allergy Allergy Status Severity Reaction(s) Onset Inactive Treating Comm ents Source Name Type Date Date Clinician No Known DA Active U 2020-09 [facility] Allergie 0-28 [place] [facility] 00:00: d 00 [facility] No Known DA Active U 2020-09 [facility] Allergie 0-28 [place] [facility] 00:00: d 00 [facility] NO KNOWN Drug Active Univers ALLERGIE Class ity of S [facility] Social History Social Habit Start Date Stop Date Quantity Comments Source Sex Assigned At [birth year] [facility] [place] 00:00:00 00:00:00 Medical Branch Smoking Status Start Date Stop Date Source Unknown if ever smoked [facility] Medications Ordered Filled Start Stop Current Ordering Indication Dosage Frequency Signature Comments Components Source Medication Medication Date Date Medication? Clinician (SIG) Name Name No known 2020-09 No Univers medications 0-09 ity of 19:54: [address] Pantoprazol Pantoprazol Yes Na Lopez 1 tablet Common e Sodium e Sodium 05-04 Spirit 00:00: - [facility] 00 [facility] Ergocalcife Ergocalcife 2018-09- No Na Lopez 1 capsule Common rol rol 10-12 [facility] 00:00: 00:00 - [facility] :00 [facility] Paxil Paxil Yes Na Lopez 1 tablet Comm on 12-26 in the Spirit 00:00: morning - 00 [facility] Humira Humira Yes Na Lopez not Common defined [facility] Aspirin Aspirin Yes Na Lopez not Common [facility] BusPIRone BusPIRone Yes Na Lopez 1 tablet Common HCl HCl [facility] Metoprolol Metoprolol Yes Na Lopez 1 tablet Common Tartrate [facility]art[facility] with food [facility] Vital Signs Vital Name Observation Time Observation Value Comments Source Systolic blood 2021-07-04 00:50:00 180 mm[Hg] Univer sity [facility] Diastolic blood 2021-07-04 00:50:00 110 mm[Hg[facility] 2021-07-04 00:50:00 79 /min [facility] Body temperature 2021-07-04 00:50:00 36.67 Gem [facility] Respiratory rate 2021-07-04 00:50:00 18 /min [facility] Body weight 2021-07-04 00:50:00 121.564 kg [facility] Oxygen saturation in 2021-07-04 00:50:00 99 /min [facility] blood by [facility] Pulse oximetry Branch Procedures Procedure Date / Time Performed Performing Clinician Marta e XR CHEST 1 VW 2021-07-04 01:14:37 Raissa Tran [facility] NOTICE OF PRIVACY 2021-07-04 00:45:31 Doctor Unassigned, No Univ [facility] PRACTICES Name Medical Branch CONSENT/REFUSAL FOR 2021-07-04 00:45:10 Doctor Unassigned, [facility] AND Name Medical Branch TREATMENT Encounters Start End Encounter Admission Attending Care Care Encounter Source Date/Time Date/Time Type Type Clinicians Facility Department ID 2022-01-04 Outpatient Lopez, Na STLMLC STLMLC [id number] Common 09:31:01 [id number] [facility] 2021-10-20 Outpatient Lopez, Na STLMLC STLMLC [id number] Common 14:09:55 [id number] [facility] 2021-10-20 Outpatient Lopez, Na STLMLC STLMLC [id number] Common 13:47:22 [id number] [facility] 2021-10-20 Outpatient Lopez, Na STLMLC STLMLC [id number] 2 Common 12:29:04 [id number] [facility] 2021-10-20 Outpatient Lopze, Na STLMLC STLMLC [id number] 2 Common 12:03:44 [id number] [facility] 2021-10-20 Outpatient Lopez, Na STLMLC STLMLC [id number] Common 12:03:05 [id number] [facility] 2021-10-20 Outpatient Lopez, Na STLMLC STLMLC [id number] 2 Common 11:43:49 [id number] [facility] 2021-10-20 Outpatient Lopez, Na STLMLC STLMLC [id number] 2 Common 11:35:56 [id number] [facility] 2021-10-20 Outpatient Lopez, Na STLMLC STLMLC [id number] Common 11:18:09 [id number] [facility] 2021-10-20 Outpatient Lopez, Na STLMLC STLMLC [id number] 2 Common 11:04:54 [id number] [facility] 2021-10-20 Outpatient Lopez, Na STLMLC STLMLC [id number] 2 Common 11:04:25 [id number] [facility] 2022-02-14 2022-02-14 ambulatory STLMLC STLMLC [id number] Common 00:00:00 00:00:00 [facility] 2022-01-27 2022-01-27 ambulatory STLMLC STLMLC [id number] Common 00:00:00 00:00:00 [facility] 2022-01-26 2022-01-26 ambulatory STLMLC STLMLC [id number] Common 00:00:00 00:00:00 [facility] 2022-01-18 2022-01-18 ambulatory STLMLC STLMLC [id number] Common 00:00:00 00:00:00 [facility] 2022-01-05 2022-01-05 ambulatory STLMLC STLMLC [id number] Common 00:00:00 00:00:00 [facility] 2021-12-28 2021-12-28 ambulatory STLMLC STLMLC [id number] Common 00:00:00 00:00:00 [facility] 2021-11-15 2021-11-15 ambulatory STLMLC STLMLC [id number] Common 00:00:00 00:00:00 [facility] 2021-11-11 2021-11-11 ambulatory STLMLC STLMLC [id number] Common 00:00:00 00:00:00 [facility] 2021-09-28 2021-09-28 ambulatory STLMLC STLMLC [id number] Common 00:00:00 00:00:00 [facility] 2021-08-27 2021-08-27 ambulatory STLMLC STLMLC [id number] Common 00:00:00 00:00:00 [facility] 2021-08-04 2021-08-04 ambulatory STLMLC STLMLC [id number] Common 00:00:00 00:00:00 [facility] 2021-08-02 2021-08-02 ambulatory STLMLC STLMLC [id number] Common 00:00:00 00:00:00 [facility] 2021-07-22 2021-07-22 Outpatient Vanesa Nunez HCAPM RADI LA5 [id number] [facility] 08:00:00 08:00:00 [id number] [facility] 2021-07-22 2021-07-22 Outpatient EL Vanesa Nunez HCAPM RADI LA0 [id number] [facility] 07:26:00 07:26:00 63 [facility] 2021-07-03 2021-07-03 Emergency Marc, [facility] [id number] Univers 19:47:00 21:16:00 [id number] [facility] [id number] [facility] [id number] [place] [id number] Branch 2021-07-03 2021-07-03 Emergency X [facility] ERT [id number] Univers 19:47:00 19:47:00 ity [facility] 2021-06-07 2021-06-07 Outpatient STLMLC STLMLC [id number] Common 00:00:00 00:00:00 [facility] 2021-05-06 2021-05-06 Outpatient STLMLC STLMLC [id number] Common 00:00:00 00:00:00 [facility] 2021-04-28 2021-04-28 Outpatient STLMLC STLMLC [id number] Common 00:00:00 00:00:00 [facility] 2021-04-27 2021-04-27 Outpatient STLMLC STLMLC [id number] Common 00:00:00 00:00:00 [facility] 2021-03-15 2021-03-15 Outpatient STLMLC STLMLC [id number] Common 00:00:00 00:00:00 [facility] 2021-01-04 2021-01-04 Outpatient STLMLC STLMLC [id number] Common 00:00:00 00:00:00 [facility] 2020-11-03 2020-11-03 Outpatient STLMLC STLMLC [id number] Common 00:00:00 00:00:00 [facility] 2020-08-03 2020-08-03 Outpatient STLMLC STLMLC [id number] Common 00:00:00 00:00:00 [facility] 2020-05-04 2020-05-04 [facility] [id number] Common 10:10:00 10:10:[address] [facility] 2020-05-01 2020-05-01 [facility] [id number] Common 09:40:00 09:40:[address] [facility] 2020-02-19 2020-02-19 [facility] [id number] Common 16:06:00 16:06:00 [address] [facility] [address] [facility] 2019-12-12 2019-12-12 [facility] [id number] Common 15:41:00 15:41:[address] [facility] 2019-09-16 2019-09-16 [facility] [id number] Common 14:40:00 14:40:[address] [facility] 2019-08-15 2019-08-15 [facility] [id number] Common 09:27:00 09:27:[address] [facility] 2019-08-12 2019-08-12 [facility] [id number] Common 09:00:00 09:00:[address] [facility] 2019-07-31 2019-07-31 [facility] [id number] Common 11:46:00 11:46:[address] [facility] 2019-07-29 2019-07-29 [facility] [id number] Common 09:40:00 09:40:[address] [facility] 2019-06-02 2019-06-02 Out[facility] [id number] Common 09:38:00 09:38:00 [facility] 2019-05-31 2019-05-31 Outpatient Dolores Bernalt [id number] Common 11:30:00 11:30:00 [facility] 2018-01-19 2018-01-19 Outpatient Dolores Bernalt [id number] Common 08:11:00 08:11:[address] [facility] 2018-01-18 2018-01-18 Outpatient Dolores Bernalt [id number] Common 10:15:00 10:15:[address] [facility] 2017-12-26 2017-12-26 Outpatient Dolores Bernalt 12 [id number] Common 09:30:00 09:30:[address] [facility] Results Test Description Test Time Test Comments Results Result Comments Source SARS-CoV-2 (COVID-19), RT-PCR/TMA 2021-12-10 07:26:55 Test Item Value Reference Range Interpretation Comme nts SARS-CoV-2 INTERPRETATION NEGATIVE SEE NOTE S ARS-CoV-2 RNA NOT (test code = 21994) DETECTED Negative results do not preclude SARS-C [...] ORDER CODE 3509. SOURCE (test code = 35675) NASOPHARYNGEAL Note: Methodology is Ro Charito Real-Time RT-PC R. The expected result or ref erence range is NEGATIVE (Not D etected). For more information reg viviana COVID-19 testing to incl ude clinicalinforma tion, methodology detail, intende d use, FDA authorization a ndrecommended fact sheets for carlos ents or healthcare providers, see [facility] Announcement: S ARS-CoV-2 (COVID-19) by N AAT at URL below (note,fact shee ts are provided by method given in report:https:// www.[employer]/cl inicians/client -communications/ Alternatively, see downloadable PDF fact sheet at:https://www. [email or web address]/COVID- 19-RT-PCR UNLESS OTHERWISE INDICATED, ALL TESTING PERFORMED ATCLINICAL PATH [facility], [place] [address] LABORATORY DIRE CTOR: PRUDENCE SOLIS M.D. CLIA NUMBER [id number] [facility] [place] [id number] - CT ABD PELVIS [id number] 09:50:00 [facility] 1975 Sex: F Name: SHE FITZGERALD [facility] : 1975Age/S: 46 / F [id number] Unit #: [id number] Loc: [place] [address] Phys: Vanesa Nunez MD Acct: [id number] Dis Date: Status: REG CLI PHONE#: [phone] Exam Date: 07/22/2021917 FAX #: Reason:CROHNS DISEASE, UNSPECIFIED, WITHOUT COMPLICATI EXAMS: CPT: [id number] CT ABD PELVIS W/CONT 20687 HISTORY: CROHN'S DISEASE, UNSPECIFIED, WITHOUT COMPLICATIONS TECHNIQUE: [...] 1 Signed Report (CONTINUED) Name: SHE FERNANDEZ [place] : 1975 Age/S: 46 / F [address] Unit #: [id number] Loc: [place] [address] Phys: Vanesa Nunez MD Acct: [id number] Dis Date: Status: REG CLI PHONE #: [phone] Exam Date: 07/22/202118 FAX #: Reason: CROHNS DISEASE, UNSPECIFIED, WITHOUT COMPLICATI EXAMS: CPT:[id number] CT ABD PELVIS W/CONT 32958 <Continued> IMPRESSION: 1. There is mild diffuse [...] RT(R) CTDI: DLP: Trnscb Date/Time: 07/22/2021 (0950) [email or web address] Orig Print D/T: S: 07/22/2021 (7553) PAGE 2 Signed Report [id number] 08:27:00 Test Item Value Reference Range Interpretation Comments ISTAT-BUN (test code = BUNP) 8 mg/dL 8-26 N BEDSIDE [id number] 08:27:00 Test Item Value Reference Range Interpretation Comments BEDSIDE CREATININE (test code = 0.6 mg/dL 0.6-1.3 N CREATBED)
[2022-02-20] MEDS ORDERED: LEVALBUTEROL 1.25 MG/3 ML NEB ONE (02:59)
[2022-02-20] MEDS ORDERED: NA CHLORIDE 0.9% 500 ML ONE (02:59)
[2022-02-20 03:47] LABS: Absolute Lymphocytes (CBC) 1.7 K/uL (0.7-4.9); Hematocrit 38.2 % (36.0-45.0); Lymphocytes % 16.1 % (15.3-44.8); MPV 8.1 fL (7.6-11.3); RBC Red Blood Cell Count 4.88 M/uL (3.86-4.86)
[2022-02-20 03:53] LABS: Protime INR 0.98
[2022-02-20 04:06] LABS: Potassium 4.1 mmol/L (3.5-5.1)
--- NOTE | 2022-02-20 06:06 | ER ---
Nurse's Notes [facility] Name: Dori Guardado Age: 47 yrs Sex: Female : 1975 Arrival Date: 02/20/2022 Time: 02:27 Bed 15 Private MD: Diagnosis: Dyspnea, unspecified;Cough Presentation: 02/20 02:38 Chief complaint: Patient states: she started having difficulty breathing and back pain bb since around 1830 last night pt also had covid at the first of the month but states she has been tested since then and is negative she took prednisone at home. Coronavirus screen: difficulty breathing, Client presents with at least one sign or symptom that may indicate coronavirus-19. Standard/surgical mask placed on the client. Ebola Screen: No symptoms or risks identified at this time. Initial Sepsis Screen: Does the patient meet any 2 criteria? No. Patient's initial sepsis screen is negative. Does the patient have a suspected source of infection? No. Patient's initial sepsis screen is negative. Risk Assessment: Do you want to hurt yourself or someone else? Patient reports no desire to harm self or others. Onset of symptoms was February 19, 2022. 02:38 Method Of Arrival: Ambulatory bb 02:38 Acuity: KASH 3 bb Triage Assessment: 02:30 Respiratory: Respiratory: Onset: The symptoms/episode began/occurred. ll3 02:30 General: Appears. ll3 MEDICAL RADIATION DOSIMETRIST: 02:41 LMP N/A - bb Historical: - Allergies: 02:41 No Known Allergies; bb - Home Meds: 02:41 amlodipine oral [Active]; mesalamine oral [Active]; Famotidine Oral [Active]; Humira bb subcutaneous [Active]; Aspirin Oral [Active]; - PMHx: 02:41 Atrial Fib; bowel obstruction; Crohn's; Hypertension; bb - PSHx: 02:41 Appendectomy; Cholecystectomy; bb - Immunization history:: Adult Immunizations up to date. - Family history:: not pertinent. - Social history:: Smoking status: unknown. - Hospitalizations: : No recent hospitalization is reported. Screenin:15 Abuse screen: Denies threats or abuse. Nutritional screening: No deficits noted. ll3 Tuberculosis screening: No symptoms or risk factors identified. 05:18 Fall Risk No fall in past 12 months (0 pts). No secondary diagnosis (0 pts). IV access ll3 (20 points). Ambulatory Aid- None/Bed Rest/Nurse Assist (0 pts). Gait- Normal/Bed Rest/Wheelchair (0 pts) Mental Status- Oriented to own ability (0 pts). Total Jane Fall Scale indicates No Risk (0-24 pts). Assessment: 03:15 General: Appears uncomfortable, Behavior is calm, cooperative. Pain: Denies pain. ll3 Neuro: Level of Consciousness is awake, alert, obeys commands, Oriented to person, place, time, situation. Cardiovascular: Rhythm is sinus rhythm. Respiratory: Reports shortness of breath Airway is patent Respiratory effort is even, unlabored, Respiratory pattern is regular, symmetrical, Derm: Skin is pink, warm \\T\\ dry. 03:52 Reassessment: Pt states breathing treatment helped, states "I don't feel like I have ll3 something stuck in the back of my throat now, it also helped my back pain". 05:18 Reassessment: No changes from previously documented assessment. Patient and/or family ll3 updated on plan of care and expected duration. Pain level reassessed. Patient is alert, oriented x 3, equal unlabored respirations, skin warm/dry/pink. Patient states symptoms have improved. Vital Signs: 02:38 BP 165 / 99; Pulse 93; Resp 24 S; Temp 98.4(O); Pulse Ox 98% on R/A; Weight 125.19 kg bb (R); Height 5 ft. 4 in. (162.56 cm) (R); Pain 5/10; 04:00 BP 156 / 82; Pulse 98; Resp 18; Pulse Ox 100% on R/A; ll3 05:18 BP 142 / 88; Pulse 97; Resp 17; Pulse Ox 99% on R/A; ll3 06:18 BP 139 / 86; Pulse 96; Resp 18; Pulse Ox 98% on R/A; kd3 02:38 Body Mass Index 47.37 (125.19 kg, 162.56 cm) bb ED Course: 02:27 Patient arrived in ED. bp1 02:34 Branden Negron MD is Attending Physician. rn 02:41 Triage completed. bb 02:41 Patient placed in an exam room, on a stretcher, on pulse oximetry. bb 03:09 Loubet, Lynsea, RN is Primary Nurse. ll3 03:15 Patient has correct armband on for positive identification. Placed in gown. Bed in low ll3 position. Call light in reach. Side rails up X 1. Client placed on continuous cardiac and pulse oximetry monitoring. NIBP monitoring applied. 03:40 Initial lab(s) drawn, by me, sent to lab. Missed attempt(s): 20 gauge in right bb antecubital area. Bleeding controlled, band aid applied, catheter tip intact. Inserted saline lock: 18 gauge in left antecubital area, using aseptic technique. Blood collected. 04:19 CT Chest For PE Angio In Process Unspecified. EDMS 06:18 XRAY Chest (1 view) In Process Unspecified. EDMS 06:19 No provider procedures requiring assistance completed. IV discontinued, intact, kd3 bleeding controlled, No redness/swelling at site. Pressure dressing applied. Administered Medications: 03:42 Drug: NS 0.9% 500 ml Route: IV; Rate: bolus; Site: left antecubital; ll3 06:19 Follow up: Response: No adverse reaction; IV Status: Completed infusion kd3 03:44 Drug: Xopenex (levalbuterol) 1.25 mg Route: Inhalation; ll3 03:52 Follow up: Response: No adverse reaction; Marked relief of symptoms ll3 06:20 Follow up: Response: No adverse reaction kd3 Medication: 03:15 VIS not applicable for this client. ll3 Outcome: 06:05 Discharge ordered by . rn 06:19 Discharged to home ambulatory. kd3 06:19 Condition: stable 06:19 Discharge instructions given to patient, Instructed on discharge instructions, follow up and referral plans. Demonstrated understanding of instructions, follow-up care. 06:20 Patient left the ED. kd3 Signatures: Dispatcher [employer] EDMS Precious Felton RN RN bb Nieto, Roman, MD MD rn Paniauga, Brittany bp1 Loubet, Lynsea, LEONA DELGADILLO 3 Chela Combs RN RN kd3
--- NOTE | 2022-02-20 06:06 | EDPHYS ---
Physician Documentation [facility] Name: Dori Guardado Age: 47 yrs Sex: Female : 1975 Arrival Date: 02/20/2022 Time: 02:27 Bed 15 Private MD: ED Physician Branden Negron HPI: 02/20 03:39 This 47 yrs old Black Female presents to ER via Ambulatory with complaints of Breathing rn Difficulty. 03:39 The patient has shortness of breath at rest. rn 03:43 Onset: The symptoms/episode began/occurred last night. Duration: The symptoms are rn intermittent. The patient's shortness of breath is aggravated by coughing, is alleviated by rest. Associated signs and symptoms: Pertinent positives: chest pain, productive cough, Pertinent negatives: fever, hemoptysis. Severity of symptoms: At their worst the symptoms were moderate in the emergency department the symptoms have improved. The patient has not experienced similar symptoms in the past. The patient has been recently seen by a physician: The patient has been recently seen at the [facility] Emergency Department. Pt reports fighting COVID infection for last month, has been doing ok then gets worse. Was seen recently and PE study negative. No fever. Reports chest discomfort when coughing and feels like not clearing sputum. No hemoptysis. No abd pain. No vomiting. Reports back cramping that improved with muscle rub.. 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 - Family history:: not pertinent. - Social history:: Smoking status: unknown. - Hospitalizations: : No recent hospitalization is reported. ROS: 03:43 Constitutional: Negative for fever, chills, and weight loss, Eyes: Negative for injury, rn pain, redness, and discharge, Neck: Negative for injury, pain, and swelling, Cardiovascular: Negative for palpitations, and edema, Respiratory: Negative for wheezing Abdomen/GI: Negative for abdominal pain, nausea, vomiting, diarrhea, and constipation, MS/Extremity: Negative for injury and deformity, Skin: Negative for injury, rash, and discoloration, Neuro: Negative for headache, weakness, numbness, tingling, and seizure. Exam: 03:43 Constitutional: This is a well developed, well nourished patient who is awake, alert, rn and in no acute distress. Appears anxious, speaking full sentences. Head/Face: Normocephalic, atraumatic. Eyes: Periorbital areas with no swelling, redness, or edema. Cardiovascular: Regular rate and rhythm. No pulse deficits. Respiratory: + mild tachypnea, speaking full sentences, no retractions Abdomen/GI: Soft, non-tender Skin: Warm, dry MS/ Extremity: Pulses equal, no cyanosis. Neurovascular intact. Full, normal range of motion. Equal circumference. Neuro: Awake and alert, GCS 15 06:03 ECG was reviewed by the Attending Physician. rn Vital Signs: 02:38 BP 165 / 99; Pulse 93; Resp 24 S; Temp 98.4(O); Pulse Ox 98% on R/A; Weight 125.19 kg bb (R); Height 5 ft. 4 in. (162.56 cm) (R); Pain 5/10; 04:00 BP 156 / 82; Pulse 98; Resp 18; Pulse Ox 100% on R/A; ll3 05:18 BP 142 / 88; Pulse 97; Resp 17; Pulse Ox 99% on R/A; ll3 06:18 BP 139 / 86; Pulse 96; Resp 18; Pulse Ox 98% on R/A; kd3 02:38 Body Mass Index 47.37 (125.19 kg, 162.56 cm) bb MDM: 02:34 Patient medically screened. rn 06:03 Differential diagnosis: Anxiety Reaction Bronchitis Pneumothorax pulmonary edema, rn Pulmonary Embolism reactive airway disease. Data reviewed: vital signs, nurses notes, lab test result(s), EKG. 06:04 Counseling: I had a detailed discussion with the patient and/or guardian regarding: the rn historical points, exam findings, and any diagnostic results supporting the discharge/admit diagnosis, lab results, radiology results, the need for outpatient follow up, to return to the emergency department if symptoms worsen or persist or if there are any questions or concerns that arise at home. Response to treatment: the patient's symptoms have markedly improved after treatment, and as a result, I will discharge patient. Special discussion: I discussed with the patient/guardian in detail that at this point there is no indication for admission to the hospital. It is understood, however, that if the symptoms persist or worsen the patient needs to return immediately for re-evaluation. ED course: CT PE neg, stable vitals, feels better.. 02/20 02:47 Order name: BMP; Complete Time: 04:06 02/20 02:47 Order name: Blood Culture Adult (2) rn 02/20 02:47 Order name: CBC with Diff; Complete Time: 04:06 02/20 02:47 Order name: NT PRO-BNP; Complete Time: 04:06 02/20 02:47 Order name: PT-INR; Complete Time: 04:06 02/20 02:47 Order name: Ptt, Activated; Complete Time: 04:06 02/20 02:35 Order name: XRAY Chest (1 view) 02/20 02:35 Order name: O2 Sat Monitoring; Complete Time: 03:09 02/20 02:35 Order name: Cardiac monitoring; Complete Time: 03:09 02/20 02:47 Order name: CT Chest For PE Angio 02/20 02:47 Order name: EKG; Complete Time: 02:47 02/20 02:47 Order name: EKG - Nurse/Tech; Complete Time: 03:09 02/20 02:47 Order name: IV Saline Lock; Complete Time: 03:44 02/20 02:47 Order name: Labs collected and sent; Complete Time: 03:44 02/20 02:47 Order name: O2 Per Protocol; Complete Time: 03:09 rn EC:03 Rate is 81 beats/min. Rhythm is regular. QRS Masterson is Normal. ME interval is normal. QRS rn interval is normal. QT interval is normal. No Q waves. T waves are Normal. No ST changes noted. Clinical impression: Normal ECG. Interpreted by me. Reviewed by me. Administered Medications: 03:42 Drug: NS 0.9% 500 ml Route: IV; Rate: bolus; Site: left antecubital; ll3 06:19 Follow up: Response: No adverse reaction; IV Status: Completed infusion kd3 03:44 Drug: Xopenex (levalbuterol) 1.25 mg Route: Inhalation; 3 03:52 Follow up: Response: No adverse reaction; Marked relief of symptoms 3 06:20 Follow up: Response: No adverse reaction kd3 Disposition Summary: 02/20/22 06:05 Discharge Ordered Location: Home rn Problem: an ongoing problem rn Symptoms: have improved rn Condition: Stable rn Diagnosis - Dyspnea, unspecified rn - Cough rn Followup: rn - With: Private Physician - When: As needed - Reason: Recheck today's complaints, Re-evaluation by your physician Discharge Instructions: - Discharge Summary Sheet rn - Shortness of Breath, Adult rn - Cough, Adult rn Forms: - Medication Reconciliation Form rn - Thank You Letter rn - Antibiotic international marketing coordinator - Prescription Opioid Use rn Signatures: Dispatcher [employer] Precious Thomas, RN RN Branden Chapman MD MD rn Loubet, Lynsea, RN RN 3 Chela Combs RN RN kd3
[2022-02-20 06:51] VITALS: TEMP 98.4
[2022-02-20 07:03] VITALS: BP 139/86; O2SAT 98
--- NOTE | 2022-02-20 08:18 | RAD REPORT ---
EXAM DESCRIPTION: RAD - Chest Single View - 02/20/2022 6:15 am CLINICAL HISTORY: Dyspnea Chest pain. COMPARISON: Chest Single View dated 02/10/2022; Chest Pa And Lat (2 Views) dated 01/24/2022; Chest Sing le View dated 12/31/2021; Chest Single View dated 12/09/2021; Abdomen Acute Series dated 10/25/2018 FINDINGS: Portable technique limits examination quality. The lungs are grossly clear. The heart is normal in size. No displaced fractures. IMPRESSION: No acute intrathoracic process suspected.
--- NOTE | 2022-02-21 17:25 | RAD REPORT ---
EXAM DESCRIPTION: Chest For Pe Angio CLINICAL HISTORY: 47 years, Female, dyspnea, recent COVID, eval for PE COMPARISON: None. TECHNIQUE: Axial images through the chest were performed after the administration of intravenous con trast using a pulmonary embolus protocol. MIPS were performed. This exam was performed according to our departmental dose-optimization program which includes use of Automated Exposure Control, adjustm ent of the mA and/or kV according to patient size and/or use of iterative reconstruction technique. FINDINGS: No pulmonary embolus is identified however the distal pulmonary artery branches are not we ll visualized due to motion artifact and contrast bolus timing.. Thoracic aorta is unremarkable. Cardiac chambers are normal in size. No coronary calcifications. No pericardial effusion. No pleural effusion. No focal lung consolidation. Mild hypoventilatory changes in the lung bases. No pneumothorax. Patent central airway. Soft tissues are unremarkable. No acute osseous findings. No acute abnormality within the visualized upper abdomen. IMPRESSION: Limited exam due to respiratory motion and contrast bolus timing. No central pulmonary e mbolism. Mild hypoventilatory changes in the lung bases. No focal areas of consolidation. Electronically signed by: Hong Patel DO 02/20/2022 5:56 AM CDT Due to temporary technical issues with the PACS/Fluency reporting system, reports are being signed by the in house radiologists without review as a courtesy to insure prompt reporting. The interpreting radiologist is fully responsible for the content of the report.
--- NOTE | 2022-02-22 12:22 | EKG ---
Test Date: 2022-02-20 Test Time: 03:03:03 Staff Nuclear Medicine Technologist: LL MEASUREMENT RESULTS: Intervals: Rate: 81 AR: 150 QRSD: 84 QT: 372 QTc: 432 [place]: P: 53 AR: 150 QRS: 5 T: 32 INTERPRETIVE STATEMENTS: Normal sinus rhythm Normal ECG Compared to ECG 02/10/2022 17:03:55 No significant changes Electronically Signed On 02-22-22 12:17:14 CDT by Matthew Lofton
== END 2022-02-20 06:20 | disposition home or self-care (01) ==
LOC: ER 02:25
DX: R06.00 Dyspnea, unspecified (principal); R05.9 Cough, unspecified
CPT/HCPCS: 96361; 93005; 87040 ×2; 85025; 80048; 36415; 85610; 82565; 85730; 83880; 71275; 71045; 96360; 99285; Q9967; J7040

== ENCOUNTER 2022-03-02 11:44 | Emergency (ER) | payer OTHER ==
--- OUTSIDE RECORDS SUMMARY | 2022-03-02 11:46 | XMS REPORT | Continuity of Care Document ---
:[address] [facility] t Address [address] [place] [address] Care Team Providers Name Role Phone Morena Lopez Primary Care Physician Edgar Lopez Attending Clinician Unavailable Sharona Nunez Attending Clinician Unavailable Monie Tran DO Attending Clinician Morean Lopez Admitting Clinician Unavailable Payers Payer Name Policy Type Policy Number Effective Date Expiration Date S ource Problems Condition Condition Condition Status Onset Resolution Last Treating Co mments Source Name Details Category Date Date Treatment Clinician Date No known No known Disease Unive rs active active ity of problems problems [facility] Allergies, Adverse Reactions, Alerts Allergy Allergy Status Severity Reaction(s) Onset Inactive Treating Comm ents Source Name Type Date Date Clinician No Known DA Active U 2020-09 [facility] 00:00: d 00 [facility] No Known DA Active U 2020-09 [facility] Allergie 0-28 [facility] 00:00: d 00 [facility] NO KNOWN Drug Active Univers ALLERGIE Class ity of S [facility] Social History Social Habit Start Date Stop Date Quantity Comments Source Sex Assigned At [birth year] [facility] [place] 00:00:00 00:00:00 [facility] Smoking Status Start Date Stop Date Source Unknown if ever smoked [facility] Medications Ordered Filled Start Stop Current Ordering Indication Dosage Frequency Signature Comments Components Source Medication Medication Date Date Medication? Clinician (SIG) Name Name No known 2020-09 No Univers medications 0-09 ity of 19:54: [address] Pantoprazol Pantoprazol Yes Na Lopez 1 tablet Common e Sodium e Sodium 05-04 [facility] 00:00: - [facility] 00 [facility] Ergocalcife Ergocalcife 2018-09- No Na Lopez 1 capsule Common rol rol 10-12 [facility] 00:00: 00:00 - [facility] :00 [facility] Paxil Paxil Yes Na Lopez 1 tablet Comm on 12-26 in the [facility] 00:00: morning - 00 [facility] Humira Humira Yes Na Lopez not Common defined [facility] Aspirin Aspirin Yes Na Lopez not Common [facility] BusPIRone BusPIRone Yes Na Lopez 1 tablet Common HCl HCl [facility] Metoprolol Metoprolol Yes Na Lopez 1 tablet Common [facility]art[facility] V[facility] Signs Vital Name Observation Time Observation Value Comments Source Systolic blood 2021-07-04 00:50:00 180 mm[Hg] [facility]iver [facility] Diastolic blood 2021-07-04 00:50:00 110 mm[Hg] [facility] Heart rate 2021-07-04 00:50:00 79 /min [facility] Body temperature 2021-07-04 00:50:00 36.67 Gem [facility] Respiratory rate 2021-07-04 00:50:00 18 /min [facility] Body weight 2021-07-04 00:50:00 121.564 kg [facility] Oxygen saturation in 2021-07-04 00:50:00 99 /min [facility] blood by [facility] Pulse oximetry Branch Procedures Procedure Date / Time Performed Performing Clinician Marta e XR CHEST 1 VW 2021-07-04 01:14:37 Raissa Tran [facility] NOTICE OF PRIVACY 2021-07-04 00:45:31 Doctor Unassigned, No Univ [facility] PRACTICES Name Medical Branch CONSENT/REFUSAL FOR 2021-07-04 00:45:10 [facility] DI[facility] AND Name Medical Branch TREATMENT Encounters Start End Encounter Admission Attending Care Care Encounter Source Date/Time Date/Time Type Type Clinicians Facility Department ID 2022-01-04 Outpatient Lopez, Na STLMLC STLMLC [id number] Common 09:31:01 [id number] [facility] 2021-10-20 Outpatient Lopez, Na STLMLC STLMLC [id number] Common 14:09:55 [id number] [facility] 2021-10-20 Outpatient Lopez, Na STLMLC STLMLC [id number] Common 13:47:22 [id number] [facility] 2021-10-20 Outpatient Lopez, Na STLMLC STLMLC [id number] 2 Common 12:29:04 [id number] [facility] 2021-10-20 Outpatient Lopez, Na STLMLC STLMLC [id number] 2 Common 12:03:44 [id number] [facility] 2021-10-20 Outpatient Lopez, Na STLMLC STLMLC [id number] 2 Common 12:03:05 [id number] [facility] 2021-10-20 Outpatient Lopez, Na STLMLC STLMLC [id number] 2 Common 11:43:49 [id number] [facility] 2021-10-20 Outpatient Lopez, Na STLMLC STLMLC [id number] 2 Common 11:35:56 [id number] [facility] 2021-10-20 Outpatient Lopez, Na STLMLC STLMLC [id number] 2 Common 11:18:09 [id number] [facility] 2021-10-20 Outpatient Lopez, Na STLMLC STLMLC [id number] 2 Common 11:04:54 [id number] [facility] 2021-10-20 Outpatient Lopez, Na STLMLC STLMLC [id number] 2 Common 11:04:25 [id number] [facility] 2022-02-14 2022-02-14 ambulatory STLMLC STLMLC [id number] Common 00:00:00 00:00:00 [facility] 2022-01-27 2022-01-27 ambulatory STLMLC STLMLC [id number] Common 00:00:00 00:00:00 [facility] 2022-01-26 2022-01-26 ambulatory STLMLC STLMLC [id number] Common 00:00:00 00:00:00 [facility] 2022-01-18 2022-01-18 ambulatory STLMLC STLMLC [id number] Common 00:00:00 00:00:00 [facility] 2022-01-05 2022-01-05 ambulatory STLMLC STLMLC [id number] Common 00:00:00 00:00:00 [facility] 2021-12-28 2021-12-28 ambulatory STLMLC STLMLC [id number] Common 00:00:00 00:00:00 [facility] 2021-11-15 2021-11-15 ambulatory STLMLC STLMLC [id number] Common 00:00:00 00:00:00 [facility] 2021-11-11 2021-11-11 ambulatory STLMLC STLMLC [id number] Common 00:00:00 00:00:00 [facility] 2021-09-28 2021-09-28 ambulatory STLMLC STLMLC [id number] Common 00:00:00 00:00:00 [facility] 2021-08-27 2021-08-27 ambulatory STLMLC STLMLC [id number] Common 00:00:00 00:00:00 [facility] 2021-08-04 2021-08-04 ambulatory STLMLC STLMLC [id number] Common 00:00:00 00:00:00 [facility] 2021-08-02 2021-08-02 ambulatory STLMLC STLMLC [id number] Common 00:00:00 00:00:00 [facility] 2021-07-22 2021-07-22 Outpatient Vanesa Nunez HCAPM RADI LA5 [id number] [facility] 08:00:00 08:00:00 [id number] [facility] 2021-07-22 2021-07-22 Outpatient EL Vanesa Nunez HCAPM RADI LA0 [id number] [facility] 07:26:00 07:26:00 63 [facility] 2021-07-03 2021-07-03 Emergency Marc, [facility] [id number] Univers 19:47:00 21:16:00 [id number] [id number] [facility] [id number] [place] [id number] Branch 2021-07-03 2021-07-03 Emergency X [facility] ERT [id number] Univers 19:47:00 19:47:00 ity [facility] 2021-06-07 2021-06-07 Outpatient STLMLC STLMLC [id number] Common 00:00:00 00:00:00 [facility] 2021-05-06 2021-05-06 Outpatient STLMLC STLMLC [id number] Common 00:00:00 00:00:00 [facility] 2021-04-28 2021-04-28 Outpatient STLMLC STLMLC [id number] Common 00:00:00 00:00:00 [facility] 2021-04-27 2021-04-27 Outpatient STLMLC STLMLC [id number] Common 00:00:00 00:00:00 [facility] 2021-03-15 2021-03-15 Outpatient STLMLC STLMLC [id number] Common 00:00:00 00:00:00 [facility] 2021-01-04 2021-01-04 Outpatient STLMLC STLMLC [id number] Common 00:00:00 00:00:00 [facility] 2020-11-03 2020-11-03 Outpatient STLMLC STLMLC [id number] Common 00:00:00 00:00:00 [facility] 2020-08-03 2020-08-03 Outpatient STLMLC STLMLC [id number] Common 00:00:00 00:00:00 [facility] 2020-05-04 2020-05-04 [facility] [id number] Common 10:10:00 10:10:[address] [facility] 2020-05-01 2020-05-01 [facility] [id number] Common 09:40:00 09:40:[address] [facility] 2020-02-19 2020-02-19 [facility] [id number] Common 16:06:00 16:06:00 t [facility] [address] [facility] 2019-12-12 2019-12-12 [facility] [id number] Common 15:41:00 15:41:[address] [facility] 2019-09-16 2019-09-16 [facility] [id number] Common 14:40:00 14:40:[address] [facility] 2019-08-15 2019-08-15 [facility] [id number] Common 09:27:00 09:27:[address] [facility] 2019-08-12 2019-08-12 [facility] [id number] Common 09:00:00 09:00:[address] [facility] 2019-07-31 2019-07-31 [facility] [id number] Common 11:46:00 11:46:[address] [facility] 2019-07-29 2019-07-29 [facility] [id number] Common 09:40:00 09:40:[address] [facility] 2019-06-02 2019-06-02 [facility] [id number] Common 09:38:00 09:38:00 t [facility] 2019-05-31 2019-05-31 Outpatient Dolores Bernalt [id number] Common 11:30:00 11:30:00 t [facility] 2018-01-19 2018-01-19 Outpatient Dolores Bernalt [id number] Common 08:11:00 08:11:[address] [facility] 2018-01-18 2018-01-18 Outpatient Dolores Bernalt [id number] Common 10:15:00 10:15:[address] [facility] 2017-12-26 2017-12-26 Outpatient Dolores Bernalt [id number] Common 09:30:00 09:30:[address] [facility] Results Test Description Test Time Test Comments Results Result Comments Source SARS-CoV-2 (COVID-19), RT-PCR/TMA 2021-12-10 07:26:55 Test Item Value Reference Range Interpretation Comme nts SARS-CoV-2 INTERPRETATION NEGATIVE SEE NOTE S ARS-CoV-2 RNA NOT (test code = 56626) DETECTED Negative results do not preclude SARS-C [...] ORDER CODE 3509. SOURCE (test code = 91940) NASOPHARYNGEAL Note: Methodology is Or Charito Real-Time RT-PC R. The expected result or ref erence range is NEGATIVE (Not D etected). For more information reg viviana COVID-19 testing to incl ude clinicalinforma tion, methodology detail, intende d use, FDA authorization a ndrecommended fact sheets for carlos ents or healthcare providers, see [facility] Announcement: S ARS-CoV-2 (COVID-19) by N AAT at URL below (note,fact shee ts are provided by method given in report:https:// www.[employer]/cl inicians/client -communications/ Alternatively, see downloadable PDF fact sheet at:https://www. [email or web address]/COVID- 19-RT-PCR UNLESS OTHERWISE INDICATED, ALL TESTING PERFORMED ATCLINICAL PATH [facility], [place] [address] LABORATORY DIRE CTOR: PRUDENCE SOLIS M.D. CLIA NUMBER [id number] [facility] [place]. [id number] - CT ABD PELVIS [id number] 09:50:00 [facility] 1975 Sex: F Name: SHE FITZGERALD [facility] : 1975Age/S: 46 / F [id number] Unit #: [id number] Loc: [place] [address] Phys: Vanesa Nunez MD Acct: [id number] Dis Date: Status: REG CLI PHONE#: [phone] Exam Date: 07/22/2021917 FAX #: Reason:CROHNS DISEASE, UNSPECIFIED, WITHOUT COMPLICATI EXAMS: CPT: [id number] CT ABD PELVIS W/CONT 20531 HISTORY: CROHN'S DISEASE, UNSPECIFIED, WITHOUT COMPLICATIONS TECHNIQUE: [...] 1 Signed Report (CONTINUED) Name: SHE FERNANDEZ [place] : 1975 Age/S: 46 / F [id number] Unit #: [id number] Loc: [place] [address] Phys: Vanesa Nunez MD Acct: [id number] Dis Date: Status: REG CLI PHONE #: [phone] Exam Date: 07/22/202118 FAX #: Reason: CROHNS DISEASE, UNSPECIFIED, WITHOUT COMPLICATI EXAMS: CPT:[id number] CT ABD PELVIS W/CONT 29181 <Continued> IMPRESSION: 1. There is mild diffuse [...] (0950) [email or web address] Orig Print D/T: S: 07/22/2021 (3853) PAGE 2 Signed Report [id number] 08:27:00 Test Item Value Reference Range Interpretation Comments ISTAT-BUN (test code = BUNP) 8 mg/dL 8-26 N BEDSIDE [id number] 08:27:00 Test Item Value Reference Range Interpretation Comments BEDSIDE CREATININE (test code = 0.6 mg/dL 0.6-1.3 N CREATBED)
--- NOTE | 2022-03-02 12:10 | RAD REPORT ---
EXAM DESCRIPTION: RAD - Chest Single View - 03/02/2022 12:05 pm CLINICAL HISTORY: CHEST PAIN Chest pain. COMPARISON: Chest Single View dated 02/20/2022; Chest Single View dated 02/10/2022; Chest Pa And Lat ( 2 Views) dated 01/24/2022; Chest Single View dated 12/31/2021 FINDINGS: Portable technique limits examination quality. The lungs are grossly clear. The heart is normal in size. No displaced fractures. IMPRESSION: No acute intrathoracic process suspected.
[2022-03-02 13:11] LABS: Absolute Lymphocytes (CBC) 2.9 K/uL (0.7-4.9); Lymphocytes % 40.5 % (15.3-44.8); MPV 7.9 fL (7.6-11.3); RBC Red Blood Cell Count 4.92 M/uL (3.86-4.86)
[2022-03-02 13:28] LABS: Potassium 3.6 mmol/L (3.5-5.1); Troponin High Sensitivity 5.2 pg/mL (<58.9)
--- NOTE | 2022-03-02 13:40 | EDPHYS ---
Physician Documentation [facility] Name: Dori Guardado Age: 47 yrs Sex: Female : 1975 Arrival Date: 03/02/2022 Time: 11:45 Bed 6 Private MD: ED Physician Camilo Marie HPI: 03/02 13:40 This 47 yrs old Black Female presents to ER via Ambulatory with complaints of Chest ms3 Pain, Arm Pain. 13:40 The patient or guardian reports chest pain that is located primarily in the substernal ms3 area. Onset: acutely, last night. The pain does not radiate. Associated signs and symptoms: Pertinent positives: nausea, Pertinent negatives: shortness of breath. The chest pain is described as aching. Duration: The patient or guardian reports a single episode. Modifying factors: The symptoms are alleviated by nothing. the symptoms are aggravated by nothing. Severity of pain: in the emergency department the pain is a 6 / 10. Historical: - Allergies: 11:50 No Known Allergies; ph - Home Meds: 11:50 amlodipine oral [Active]; Aspirin Oral [Active]; Famotidine Oral [Active]; Humira ph subcutaneous [Active]; mesalamine Oral [Active]; - PMHx: 11:50 Atrial Fib; bowel obstruction; Crohn's; Hypertension; ph - PSHx: 11:50 Appendectomy; Cholecystectomy; ph - Immunization history:: Client reports having NOT received the Covid vaccine. - Social history:: Smoking status: Patient denies any tobacco usage or history of. ROS: 13:40 Constitutional: Negative for fever, and chills. ENT: Negative for injury, pain, and ms3 discharge, Neck: Negative for injury, pain, and swelling. 13:40 Respiratory: Negative for shortness of breath, cough, wheezing, and pleuritic chest pain, Abdomen/GI: Negative for abdominal pain, nausea, vomiting, diarrhea, and constipation, MS/Extremity: Negative for injury and deformity, Skin: Negative for injury, rash, and discoloration, Psych: Negative for depression, anxiety, suicide ideation, homicidal ideation, and hallucinations. 13:40 Cardiovascular: Positive for chest pain. Exam: 12:07 ECG was reviewed by the Attending Physician. ms3 13:40 Constitutional: This is a well developed, well nourished patient who is awake, alert, ms3 and in no acute distress. Eyes: Pupils equal round and reactive to light, extra-ocular motions intact. Lids and lashes normal. Conjunctiva and sclera are non-icteric and not injected. Periorbital areas with no swelling, redness, or edema. Neck: Trachea midline, no cervical lymphadenopathy. Supple, full range of motion without nuchal rigidity, or vertebral point tenderness. No Meningismus. Chest/axilla: Normal chest wall appearance and motion. Nontender with no deformity. Cardiovascular: Regular rate and rhythm with a normal S1 and S2. No gallops, murmurs, or rubs. Normal PMI, no JVD. No pulse deficits. Respiratory: Lungs have equal breath sounds bilaterally, clear to auscultation and percussion. No rales, rhonchi or wheezes noted. No increased work of breathing, no retractions or nasal flaring. Abdomen/GI: Soft, non-tender, with normal bowel sounds. No distension or tympany. No guarding or rebound. No evidence of tenderness throughout. Neuro: Awake and alert, GCS 15, oriented to person, place, time, and situation. Cranial nerves II-XII grossly intact. Motor strength 5/5 in all extremities. Sensory grossly intact. Cerebellar exam normal. Normal gait. Psych: Awake, alert, with orientation to person, place and time. Behavior, mood, and affect are within normal limits. Vital Signs: 11:50 BP 152 / 100; Pulse 89; Resp 17; Temp 98.5; Pulse Ox 97% on R/A; Weight 125.19 kg; ll1 Height 5 ft. 4 in. (162.56 cm); Pain 6/10; 13:15 BP 121 / 84; Pulse 76; Resp 16; Pulse Ox 100% ; bp 14:00 BP 122 / 92; Pulse 72; Resp 14; Pulse Ox 94% ; bp 11:50 Body Mass Index 47.37 (125.19 kg, 162.56 cm) ll1 MDM: 12:07 Patient medically screened. ms3 13:40 Differential diagnosis: abnormal EKG, acute myocardial infarction, coronary artery ms3 disease chest wall pain. HEART Score: History: Slightly Suspicious (0), ECG: Normal (0), Age: > 45 and < 65 years (1), Risk Factors: 1 or 2 risk factors (1), Troponin: < or = 1 x Normal Limit (0), Total Score = 2. 13:40 Data reviewed: vital signs, nurses notes, lab test result(s), EKG, radiologic studies. ms3 Data interpreted: Pulse oximetry: on room air is 94 %. Interpretation: normal. Counseling: I had a detailed discussion with the patient and/or guardian regarding: the historical points, exam findings, and any diagnostic results supporting the discharge/admit diagnosis, lab results, radiology results, the need for outpatient follow up, to return to the emergency department if symptoms worsen or persist or if there are any questions or concerns that arise at home. ED course: Discussed labs, chest x-ray, physical exam findings with patient. Patient to follow-up with primary care physician in 2 to 3 days. Patient understands and agrees with plan. All questions were answered. Return precautions discussed include worsening symptoms, or any other concerns. On reevaluation patient is alert and oriented x4, in no apparent distress, nontoxic-appearing, speaking full sentences, ambulatory in emergency department.. 03/02 11:47 Order name: Basic Metabolic Panel; Complete Time: 13:31 ms3 03/02 11:47 Order name: CBC with Diff ms3 03/02 11:47 Order name: Troponin HS; Complete Time: 13:31 ms3 03/02 11:47 Order name: XRAY Chest (1 view); Complete Time: 12:29 ms3 03/02 11:47 Order name: EKG; Complete Time: 11:47 ms3 03/02 11:47 Order name: Cardiac monitoring; Complete Time: 12:02 ms3 03/02 11:47 Order name: EKG - Nurse/Tech; Complete Time: 12:02 ms3 03/02 11:47 Order name: IV Saline Lock; Complete Time: 12:58 ms3 03/02 11:47 Order name: Labs collected and sent; Complete Time: 12:58 ms3 03/02 11:47 Order name: O2 Per Protocol; Complete Time: 12:20 ms3 03/02 11:47 Order name: O2 Sat Monitoring; Complete Time: 12:20 ms3 03/02 12:39 Order name: Labs - recollect needed; Complete Time: 13:11 ss EC:07 Rate is 78 beats/min. Rhythm is regular. QRS [place] is Normal. DC interval is normal. ms3 Clinical impression: Normal ECG. Interpreted by me. Administered Medications: No medications were administered Disposition Summary: 03/02/22 13:40 Discharge Ordered Location: Home ms3 Condition: Stable ms3 Diagnosis - Chest pain, unspecified ms3 Followup: ms3 - With: Tramaine Lynch DO - When: 1 - 2 days - Reason: Recheck today's complaints Discharge Instructions: - Discharge Summary Sheet ms3 - Nonspecific Chest Pain, Adult ms3 Forms: - Medication Reconciliation Form ms3 - Thank You Letter ms3 - Antibiotic Education ms3 - Prescription Opioid Use ms3 Signatures: Dispatcher [employer] EDZoila Garcia RN RN Nathalie Singleton RN RN Desirae Mckee RN RN [facility] Camilo Marie, DO ms3
--- NOTE | 2022-03-02 13:40 | ER ---
Nurse's Notes [facility] Name: Dori Guardado Age: 47 yrs Sex: Female : 1975 Arrival Date: 03/02/2022 Time: 11:45 Bed 6 Private MD: Diagnosis: Chest pain, unspecified Presentation: 03/02 11:50 Chief complaint: Patient states: L shoulder and L sided CP started last night, she ll1 thought it was GERD. Went away, then came back today. Coronavirus screen: Vaccine status: Patient reports being unvaccinated. Client denies travel out of the [place] in the last 14 days. At this time, the client does not indicate any symptoms associated with coronavirus-19. Ebola Screen: Patient denies travel to an Ebola-affected area in the 21 days before illness onset. Initial Sepsis Screen: Does the patient meet any 2 criteria? No. Patient's initial sepsis screen is negative. Does the patient have a suspected source of infection? No. Patient's initial sepsis screen is negative. Risk Assessment: Do you want to hurt yourself or someone else? Patient reports no desire to harm self or others. Onset of symptoms was March 01, 2022. 11:50 Method Of Arrival: Ambulatory ll1 11:50 Acuity: KASH 3 ll1 Triage Assessment: 11:50 General: Appears uncomfortable, Behavior is calm, cooperative, appropriate for age. ll1 Pain: Complains of pain in L chest/shoulder Pain currently is 6 out of 10 on a pain scale. Quality of pain is described as aching. Cardiovascular: Reports chest pain. Historical: - Allergies: 11:50 No Known Allergies; ph - Home Meds: 11:50 amlodipine oral [Active]; Aspirin Oral [Active]; Famotidine Oral [Active]; Humira ph subcutaneous [Active]; mesalamine Oral [Active]; - PMHx: 11:50 Atrial Fib; bowel obstruction; Crohn's; Hypertension; ph - PSHx: 11:50 Appendectomy; Cholecystectomy; ph - Immunization history:: Client reports having NOT received the Covid vaccine. - Social history:: Smoking status: Patient denies any tobacco usage or history of. Screenin:51 Abuse screen: Denies threats or abuse. Denies injuries from another. Nutritional ph screening: No deficits noted. Tuberculosis screening: No symptoms or risk factors identified. Fall Risk None identified. Assessment: 12:21 General: Appears in no apparent distress. comfortable, obese, well groomed, Behavior is ph calm, cooperative, appropriate for age, Denies fever, feeling ill. Pain: Complains of pain in anterior aspect of left upper chest Pain radiates to anterior aspect of left shoulder Pain began 1 day ago. Neuro: Level of Consciousness is awake, alert, obeys commands, Oriented to person, place, time, situation. Cardiovascular: Reports chest pain, nausea, Chest pain is located in left anterior chest wall radiates to left arm(s) scapula began 1 day ago. Respiratory: Airway is patent Respiratory effort is even, unlabored. Derm: Skin is intact, is healthy with good turgor, Skin is pink, warm \T\ dry. Musculoskeletal: Circulation, motion, and sensation intact. Range of motion: intact in all extremities. 13:30 Reassessment: Patient appears in no apparent distress at this time. Patient and/or ph family updated on plan of care and expected duration. Pain level reassessed. Patient is alert, oriented x 3, equal unlabored respirations, skin warm/dry/pink. 14:28 Reassessment: PT DC HOME AMBULATORY, DX WITH NONCARDIAC CHEST PAIN. bp Vital Signs: 11:50 BP 152 / 100; Pulse 89; Resp 17; Temp 98.5; Pulse Ox 97% on R/A; Weight 125.19 kg; ll1 Height 5 ft. 4 in. (162.56 cm); Pain 6/10; 13:15 BP 121 / 84; Pulse 76; Resp 16; Pulse Ox 100% ; bp 14:00 BP 122 / 92; Pulse 72; Resp 14; Pulse Ox 94% ; bp 11:50 Body Mass Index 47.37 (125.19 kg, 162.56 cm) ll1 ED Course: 11:45 Patient arrived in ED. rg4 11:46 Nathalie Singleton, LEONA is Primary Nurse. ph 11:46 Camilo Marie DO is Attending Physician. ms3 11:51 Patient has correct armband on for positive identification. Placed in gown. Bed in low ph position. Call light in reach. Side rails up X 1. Client placed on continuous cardiac and pulse oximetry monitoring. NIBP monitoring applied. 11:51 Arm band placed on Patient placed in an exam room. ph 11:52 Patient maintains SpO2 saturation greater than 95% on room air. ph 12:02 EKG done, by ED staff, reviewed by Camilo Marie DO. 5 12:03 Triage completed. ll1 12:03 Warm blanket given. monitor car operator on. Pulse ox on. NIBP on. 5 12:06 XRAY Chest (1 view) In Process Unspecified. EDMS 12:30 Initial lab(s) drawn, by me, sent to lab. Inserted saline lock: 20 gauge in left zm antecubital area, using aseptic technique. Blood collected. 13:11 Basic Metabolic Panel Sent. zm 13:11 CBC with Diff Sent. zm 13:11 Troponin HS Sent. zm 13:39 Tramaine Lynch DO is Referral Physician. ms3 14:00 No provider procedures requiring assistance completed. IV discontinued, intact, bp bleeding controlled, No redness/swelling at site. Pressure dressing applied. Administered Medications: No medications were administered Medication: 11:51 VIS not applicable for this client. ph Outcome: 13:40 Discharge ordered by MD. ms3 14:27 Discharged to home ambulatory. bp 14:27 Condition: stable 14:27 Discharge instructions given to patient, Instructed on discharge instructions, follow up and referral plans. Demonstrated understanding of instructions, follow-up care. 14:28 Patient left the ED. bp Signatures: Dispatcher [employer] EDNathalie Toledo, RN Bertha Tyler ph 4 Chelly Dejesus [facility] Srinivas Curran RN RN bp Lewis, Lynsay, RN RN Camilo Lovell DO DO ms3 Julia Dejesus
[2022-03-02 14:52] VITALS: TEMP 98.5
[2022-03-02 14:55] VITALS: BP 122/92; O2SAT 94
[2022-03-02 20:51] LABS: Anisocytosis 1+; Blood Morphology Comment NOT SEEN (NOT SEEN); Platelet Estimate ADEQ; Poikilocytosis 1+; White Blood Cell Scan OK (OK)
--- NOTE | 2022-03-03 06:29 | EKG ---
Test Date: 2022-03-02 Test Time: 12:07:26 [employer] Counselor: ZOIE MEASUREMENT RESULTS: Intervals: Rate: 78 [place]: 150 QRSD: 80 QT: 374 QTc: 426 [place]: P: 54 [place]: 150 QRS: -5 T: 31 INTERPRETIVE STATEMENTS: Normal sinus rhythm Normal ECG Compared to ECG 02/20/2022 03:03:03 No significant changes Electronically Signed On 03-03-22 06:27:42 CDT by Matthew Lofton
== END 2022-03-02 14:28 | disposition home or self-care (01) ==
LOC: ER 11:44
DX: R07.9 Chest pain, unspecified (principal); I10 Essential (primary) hypertension; I48.91 Unspecified atrial fibrillation; Z79.82 Long term (current) use of aspirin
CPT/HCPCS: 36415; 71045; 80048; 84484; 85025; 93005; 99285

== ENCOUNTER 2022-04-06 19:32 | Emergency (ER) | payer OTHER ==
[2022-04-06] MEDS ORDERED: ONDANSETRON 4 MG/2 ML VIAL ONE (21:09)
[2022-04-06] MEDS ORDERED: NA CHLORIDE 0.9% 500 ML ONE (21:10)
[2022-04-06 21:30] LABS: Urine Blood Negative (Negative); Urine Glucose Negative (Negative); Urine Protein Negative (Negative); Urine Specific Gravity 1.025 (1.005-1.030); Urine pH 5.5 (5.0-7.0)
[2022-04-06 21:46] LABS: Urine Bacteria <20 /HPF (<20); Urine RBC <5 /HPF (NONE SEEN)
[2022-04-06 21:51] LABS: Urine Specific Gravity/Preg 1.025 (1.005-1.030)
[2022-04-06] MEDS ORDERED: MORPHINE 4 MG/ML SYR ONE ×2 (22:37→22:49)
[2022-04-06] MEDS ORDERED: NA CHLORIDE 0.9% 1,000 ML ONE (22:37)
[2022-04-06] MEDS ORDERED: ONDANSETRON 4 MG (ODT) TAB ONE (22:49)
[2022-04-06 22:59] LABS: Absolute Lymphocytes (CBC) 3.2 K/uL (0.7-4.9); Hematocrit 37.3 % (36.0-45.0); Lymphocytes % 37.4 % (15.3-44.8); MCV 78.3 fL (80-100); MPV 8.2 fL (7.6-11.3); RBC Red Blood Cell Count 4.77 M/uL (3.86-4.86)
[2022-04-06 23:14] LABS: Albumin 3.8 g/dL (3.4-5.0); Bilirubin Total 0.3 mg/dL (0.2-1.0); Potassium 3.8 mmol/L (3.5-5.1); Protein, Total 9.2 g/dL (6.4-8.2)
--- NOTE | 2022-04-07 01:12 | ER ---
Nurse's Notes [facility] Name: Dori Guardado Age: 47 yrs Sex: Female : 1975 Arrival Date: 04/06/2022 Time: 19:44 Bed 6 Private MD: Diagnosis: Cough;Abdominal pain, unspecified;Nausea Presentation: 04/06 20:38 Chief complaint: Patient states: "I am having stomach pain and I am running a 100.5 vc1 temperature.". Coronavirus screen: Vaccine status: Patient reports being unvaccinated. diarrhea, fever, muscle pain, Client presents with at least one sign or symptom that may indicate coronavirus-19. Standard/surgical mask placed on the client. Provider contacted for isolation considerations. Ebola Screen: No symptoms or risks identified at this time. 20:38 Method Of Arrival: Ambulatory vc1 20:42 Initial Sepsis Screen: Does the patient meet any 2 criteria? No. Patient's initial vc1 sepsis screen is negative. Does the patient have a suspected source of infection? No. Patient's initial sepsis screen is negative. Risk Assessment: Do you want to hurt yourself or someone else?. Onset of symptoms was April 06, 2022. 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 - Social history:: Smoking status: Patient denies any tobacco usage or history of. Screenin:42 Abuse screen: Denies threats or abuse. Nutritional screening: No deficits noted. vc1 Tuberculosis screening: Fall Risk None identified. Assessment: 21:19 General: Appears in no apparent distress. comfortable, Behavior is calm, cooperative, ld1 appropriate for age. Pain: Complains of pain in abdomen Pain does not radiate. Pain currently is 8 out of 10 on a pain scale. Neuro: Level of Consciousness is awake, alert, obeys commands, Oriented to person, place, time, situation. Cardiovascular: Capillary refill < 3 seconds Patient's skin is warm and dry. Respiratory: Airway is patent Respiratory effort is even, unlabored. GI: Abdomen is round obese, Bowel sounds present X 4 quads. Abd is soft Abdomen is tender to palpation X 4 quads. Reports lower abdominal pain, upper abdominal pain, diarrhea, nausea. : No signs and/or symptoms were reported regarding the genitourinary system. EENT: No signs and/or symptoms were reported regarding the EENT system. Derm: No signs and/or symptoms reported regarding the dermatologic system. Musculoskeletal: No signs and/or symptoms reported regarding the musculoskeletal system. 23:43 Reassessment: Patient appears in no apparent distress at this time. as6 04/07 00:58 Reassessment: No changes from previously documented assessment. as6 Vital Signs: 04/06 20:38 BP 164 / 105; Pulse 84; Resp 18; Pulse Ox 100% on R/A; Weight 124.28 kg; Height 5 ft. 4 vc1 in. (162.56 cm); Pain 6/10; 20:42 Temp 98.4(O); vc1 21:19 BP 154 / 98; Pulse 76; Resp 18; Pulse Ox 100% on R/A; Pain 8/10; ld1 22:34 BP 141 / 87; Pulse 83; Resp 18; Pulse Ox 100% on R/A; ld1 23:43 BP 138 / 99; Pulse 73; Resp 18 S; Pulse Ox 100% on R/A; as6 04/07 00:58 BP 120 / 97; Pulse 73; Resp 18 S; Pulse Ox 99% on R/A; as6 04/06 20:38 Body Mass Index 47.03 (124.28 kg, 162.56 cm) vc1 ED Course: 04/06 19:44 Patient arrived in ED. as 19:45 Hardy Mahoney PA is PHCP. cp 19:45 Camilo Marie DO is Attending Physician. cp 20:42 Triage completed. vc1 20:42 Arm band placed on right wrist. vc1 21:01 Georgia Dawkins, LEONA is Primary Nurse. ld1 21:19 Patient has correct armband on for positive identification. Bed in low position. Call ld1 light in reach. Side rails up X2. Client placed on continuous cardiac and pulse oximetry monitoring. NIBP monitoring applied. Door closed. Noise minimized. Warm blanket given. 21:19 No provider procedures requiring assistance completed. Missed attempt(s): 20 gauge in ld1 right antecubital area. 22:22 XRAY Chest (1 view) In Process Unspecified. EDMS 22:39 Initial lab(s) drawn, by me, sent to lab. Inserted saline lock: 18 gauge in right tw5 forearm, using aseptic technique. Blood collected. ulltrasound guided iv. 23:42 CT Abd/Pelvis - Without Contrast In Process Unspecified. EDMS 04/07 00:58 Primary Nurse role handed off by Georgia Dawkins RN as6 00:58 Moy Rios, LEONA is Primary Nurse. as6 01:22 IV discontinued, intact, bleeding controlled, No redness/swelling at site. Pressure as6 dressing applied. Administered Medications: 04/06 22:40 Not Given (Physician Discretion): NS 0.9% 1000 ml IV at 1 bolus Per protocol; 1000 mL ld1 bolus 22:41 Not Given (Physician Discretion): Zofran (Ondansetron) 4 mg IVP once; over 2 minutes ld1 22:41 Not Given (Physician Discretion): morphine 4 mg IVP once over 4 mins ld1 22:48 Not Given (Patient Refused): morphine 4 mg IM once ld1 22:48 Drug: Ondansetron 4 mg Route: PO; ld1 04/07 01:12 Follow up: Response: No adverse reaction as6 Medication: 04/06 21:19 VIS not applicable for this client. ld1 Outcome: 04/07 01:12 Discharge ordered by . sabi 01:22 Discharged to home ambulatory. as6 01:22 Condition: stable 01:22 Discharge instructions given to patient, Instructed on discharge instructions, follow up and referral plans. medication usage, Demonstrated understanding of instructions, follow-up care, medications, Prescriptions given X 3. 01:22 Patient left the ED. as6 Signatures: Dispatcher [employer] EDGA Jazmín Dejesus as Hardy Mahoney PA PA cp Dibbern, Lauren, LEONA RN ld1 Maci Lau tw5 Moy Rios RN RN as6 Cathy Thompson, RN RN vc1 Corrections: (The following items were deleted from the chart) 04/06 22:39 22:39 Inserted saline lock: 18 gauge in right forearm, using aseptic technique. Blood tw5 collected. tw5
--- NOTE | 2022-04-07 01:12 | EDPHYS ---
Physician Documentation [facility] Name: Dori Guardado Age: 47 yrs Sex: Female : 1975 Arrival Date: 04/06/2022 Time: 19:44 Bed 6 Private MD: ED Physician Camilo Marie HPI: 04/06 21:10 This 47 yrs old Black Female presents to ER via Ambulatory with complaints of Fever, cp Abdominal Pain, Cough. 21:10 The patient reports fever, that was measured at 100.5 degrees Fahrenheit. cp 21:10 Onset: The symptoms/episode began/occurred today. cp 21:10 Associated signs and symptoms: Pertinent positives: abdominal pain, cough, diarrhea, cp Pertinent negatives: active vomiting. Patient reports history of Crohns' disease and that she is currently taking prescribed Augmentin for upper respiratory infection. 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 - Social history:: Smoking status: Patient denies any tobacco usage or history of. ROS: 21:15 Constitutional: Negative for chills, fever, poor PO intake. cp 21:15 Eyes: Negative for injury, pain, redness, and discharge. cp 21:15 ENT: Negative for ear pain, difficulty swallowing, difficulty handling secretions. 21:15 Cardiovascular: Negative for chest pain, edema, palpitations. 21:15 Respiratory: Positive for cough, "sounds productive", Negative for wheezing. 21:15 Abdomen/GI: Positive for abdominal pain, diarrhea, Negative for vomiting, constipation, rectal bleeding. 21:15 : Negative for urinary symptoms. 21:15 Neuro: Negative for altered mental status, headache, weakness. 21:15 All other systems are negative. Exam: 21:20 Constitutional: The patient appears in no acute distress, alert, awake, non-toxic, well cp developed, well nourished, obese. 21:20 Head/Face: Normocephalic, atraumatic. cp 21:20 Eyes: Periorbital structures: appear normal, Conjunctiva: normal, no exudate, no injection, Sclera: no appreciated abnormality, Lids and lashes: appear normal, bilaterally. 21:20 ENT: External ear(s): are unremarkable, Ear canal(s): are normal, clear, TM's: dullness, bilaterally, Nose: is normal, Mouth: Lips: moist, Oral mucosa: moist, Posterior pharynx: Airway: no evidence of obstruction, patent. 21:20 Neck: ROM/movement: is normal, is supple, without pain, no range of motions limitations. 21:20 Chest/axilla: Inspection: normal. 21:20 Cardiovascular: Rate: normal, Rhythm: regular, Edema: is not appreciated, JVD: is not appreciated. 21:20 Respiratory: the patient does not display signs of respiratory distress, Respirations: normal, no use of accessory muscles, no retractions, labored breathing, is not present, Breath sounds: decreased breath sounds, are not appreciated, stridor, is not appreciated, + upper airway congestion. wheezing: is not appreciated. 21:20 Abdomen/GI: Inspection: obese Bowel sounds: active, all quadrants, Palpation: soft, in all quadrants, mild abdominal tenderness, in all quadrants, rebound tenderness, is not appreciated, involuntary guarding, is not appreciated. 21:20 Back: CVA tenderness, is absent. 21:20 Skin: superficial abscess left arm axilla that expresses small amount purulent drainage, minimal swelling and mild tenderness to palpation. Vital Signs: 20:38 BP 164 / 105; Pulse 84; Resp 18; Pulse Ox 100% on R/A; Weight 124.28 kg; Height 5 ft. 4 vc1 in. (162.56 cm); Pain 6/10; 20:42 Temp 98.4(O); vc1 21:19 BP 154 / 98; Pulse 76; Resp 18; Pulse Ox 100% on R/A; Pain 8/10; ld1 22:34 BP 141 / 87; Pulse 83; Resp 18; Pulse Ox 100% on R/A; ld1 23:43 BP 138 / 99; Pulse 73; Resp 18 S; Pulse Ox 100% on R/A; as6 04/07 00:58 BP 120 / 97; Pulse 73; Resp 18 S; Pulse Ox 99% on R/A; as6 04/06 20:38 Body Mass Index 47.03 (124.28 kg, 162.56 cm) vc1 MDM: 04/06 21:06 Patient medically screened. 04/07 01:12 Data reviewed: vital signs, nurses notes, lab test result(s), radiologic studies, CT cp scan, plain films. 01:12 Differential diagnosis: viral Infection, bacterial infection, bronchitis, pneumonia cp UTI. Counseling: I had a detailed discussion with the patient and/or guardian regarding: the historical points, exam findings, and any diagnostic results supporting the discharge/admit diagnosis, lab results, radiology results, the need for outpatient follow up, a family practitioner, to return to the emergency department if symptoms worsen or persist or if there are any questions or concerns that arise at home. Response to treatment: the patient's symptoms have markedly improved after treatment, and as a result, I will discharge patient. Special discussion: Based on the patient's Hx, exam, and Dx evaluation, there is no indication for emergent surgery or inpatient Tx. It is understood by the patient/guardian that if the Sx's persist or worsen they need to return immediately for re-evaluation. 04/06 20:58 Order name: CBC with Diff; Complete Time: 23:14 04/06 23:15 Interpretation: Normal except: MCV 78.3; MCH 25.6; RDW 15.5; PLT 414. 04/06 20:58 Order name: CMP; Complete Time: 23:15 cp 04/06 23:15 Interpretation: Normal except: CL 108; GFR 85; TP 9.2; GLOB 5.4; A/G 0.7. 04/06 20:58 Order name: Lipase; Complete Time: 23:40 04/06 20:58 Order name: Urine Microscopic Only; Complete Time: 23:14 cp 04/06 21:31 Order name: Urine Dipstick-Ancillary; Complete Time: 23:14 EDMS 04/06 21:31 Order name: Urine --Ancillary (enter results); Complete Time: 23:14 mw2 04/06 21:32 Order name: XRAY Chest (1 view) 04/06 22:40 Order name: CT Abd/Pelvis - Without Contrast ld1 04/06 20:58 Order name: IV Saline Lock; Complete Time: 21:49 cp 04/06 20:58 Order name: Labs collected and sent; Complete Time: 21:49 cp 04/06 20:58 Order name: Urine Dipstick-Ancillary (obtain specimen); Complete Time: 22:26 cp 04/06 20:58 Order name: Urine Test (obtain specimen); Complete Time: 22:26 cp 04/07 01:08 Order name: PO challenge; Complete Time: 01:12 cp Administered Medications: 04/06 22:40 Not Given (Physician Discretion): NS 0.9% 1000 ml IV at 1 bolus Per protocol; 1000 mL ld1 bolus 22:41 Not Given (Physician Discretion): Zofran (Ondansetron) 4 mg IVP once; over 2 minutes ld1 22:41 Not Given (Physician Discretion): morphine 4 mg IVP once over 4 mins ld1 22:48 Not Given (Patient Refused): morphine 4 mg IM once ld1 22:48 Drug: Ondansetron 4 mg Route: PO; ld1 04/07 01:12 Follow up: Response: No adverse reaction as6 Disposition: 03:57 Co-signature as Attending Physician, Camilo MENESES was immediately available on-site ms3 in the Emergency Department for consultation in the care of the patient.. Disposition Summary: 04/07/22 01:12 Discharge Ordered Location: Home cp Problem: new cp Symptoms: have improved cp Condition: Stable cp Diagnosis - Cough cp - Abdominal pain, unspecified cp - Nausea cp Followup: cp - With: Private Physician - When: 2 - 3 days - Reason: Worsening of condition Discharge Instructions: - Discharge Summary Sheet cp - Abdominal Pain, Adult cp - Nausea, Adult cp - Cough, Adult cp Forms: - Medication Reconciliation Form cp - Thank You Letter cp - Antibiotic Education cp - Prescription Opioid Use cp Prescriptions: - Bromfed DM 2-30-10 mg/5 mL Oral syrup - take 10 milliliter by ORAL route every 4 hours; 180 milliliter; Refills: 0, cp Product Selection Permitted - promethazine 25 mg Oral Tablet - take 1 tablet by ORAL route every 6 hours As needed; 20 tablet; Refills: 0, cp Product Selection Permitted - dicyclomine 20 mg Oral Tablet - take 1 tablet by ORAL route 4 times per day; 30 tablet; Refills: 0, Product cp Selection Permitted Signatures: Dispatcher [employer] EDMS Hardy Mahoney PA PA cp Sims, Marcus, DO DO ms3 Georgia Dawkins RN RN ld1 Cathy Thompson RN RN vc1 Moy Rios RN as6 Corrections: (The following items were deleted from the chart) 04/06 23:06 21:33 Abdomen Pelvis W Con+[id number].[id number] ordered. EDMS EDMS
[2022-04-07 02:09] VITALS: TEMP 98.4
[2022-04-07 02:20] VITALS: BP 120/97; O2SAT 99
--- NOTE | 2022-04-07 13:45 | RAD REPORT ---
EXAM DESCRIPTION: CT - Abdomen Pelvis Wo Contrast - 04/07/2022 6:31 am CLINICAL HISTORY: Abdominal pain, acute, nonlocalized. COMPARISON: CT of the abdomen and pelvis from January 04, 2022. TECHNIQUE: Serial axial CT images were obtained from above the diaphragm through the pubic symphysis without administration of intravenous or oral contrast. All CT scans are performed using dose optimization techniques as appropriate, including automated exp osure control and/or standardized protocols, where dose is adjusted for indication for exam and body habitus. FINDINGS: Thoracic: No significant abnormality. Hepatobiliary: No obvious concerning hepatic lesion identified in the absence of intravenous contrast . The gallbladder is surgically absent. No biliary ductal dilatation. Pancreas: Unremarkable. Spleen: Unremarkable. Gastrointestinal: No evidence of bowel obstruction or perienteric inflammation. The appendix is surgi krishna absent. Adrenals: No abnormality identified in either adrenal gland. Renal: No obvious parenchymal abnormality in either kidney in the absence of intravenous contrast. No hydronephrosis or urolithiasis. Bladder/Reproductive: Unremarkable appearance of the urinary bladder by CT technique. Unremarkable CT appearance of the uterus and left ovary. The right ovary is not clearly visualized on this exam. Vascular/Lymphatics: No lymphadenopathy identified by CT size criteria. Abdominal aorta is normal in caliber. Musculoskeletal: No concerning osseous lesion identified. Fluid / peritoneum: No significant free fluid. No free intraperitoneal air identified. IMPRESSION: No acute abnormality identified in the abdomen or pelvis by CT. Electronically signed by: Xenia Kolb MD 04/07/2022 12:30 AM CDT Due to temporary technical issues with the PACS/Fluency reporting system, reports are being signed by the in house radiologists without review as a courtesy to insure prompt reporting. The interpreting radiologist is fully responsible for the content of the report.
--- NOTE | 2022-04-07 14:14 | RAD REPORT ---
EXAM DESCRIPTION: RAD - Chest Single View - 04/06/2022 10:20 pm CLINICAL HISTORY: The patient is 47 years old and is Female; COUGH TECHNIQUE: Frontal view of the chest. COMPARISON: No relevant prior studies available. FINDINGS: Lungs: Mildly prominent interstitial markings. No consolidation. Pleural space: Unremarkable. No pneumothorax. Heart: Unremarkable. Mediastinum: Unremarkable. Bones/joints: Unremarkable. IMPRESSION: Mildly prominent interstitial markings. No consolidation. Electronically signed by: Jaziel Kwong MD 04/07/2022 4:01 AM CDT Due to temporary technical issues with the PACS/Fluency reporting system, reports are being signed by the in house radiologists without review as a courtesy to insure prompt reporting. The interpreting radiologist is fully responsible for the content of the report.
== END 2022-04-07 01:22 | disposition home or self-care (01) ==
LOC: ER 19:32
DX: R05.9 Cough, unspecified (principal); R10.9 Unspecified abdominal pain; R11.0 Nausea; I10 Essential (primary) hypertension; I48.91 Unspecified atrial fibrillation; Z79.82 Long term (current) use of aspirin
CPT/HCPCS: 85025; 36415; 81025; 83690; 80053; 74176; 71045; 99284; Q0162; J7040; J7030; J2405; 81003; 81015

== ENCOUNTER 2022-04-29 17:57 | Emergency (ER) | payer OTHER ==
--- OUTSIDE RECORDS SUMMARY | 2022-04-29 18:01 | XMS REPORT | Continuity of Care Document ---
:1975 Author Organization [facility] t Address [address] [place] [address] Care Team Providers Name Role Phone Noemy Lopez Primary Care Physician Noemy Lopez Attending Clinician Unavailable Vanesa Nunez Attending Clinician Unavailable Raissa Tran DO Attending Clinician Noemy Lopez Admitting Clinician Unavailable Payers Payer Name Policy Type Policy Number Effective Date Expiration Date S ource Problems Condition Condition Condition Status Onset Resolution Last Treating Co mments Source Name Details Category Date Date Treatment Clinician Date No known No known Disease Unive rs active active ity of problems problems [facility] Allergies, Adverse Reactions, Alerts Allergy Allergy Status Severity Reaction(s) Onset Inactive Treating Comm ents Source Name Type Date Date Clinician No Known DA Active U 2020-09 [facility] 0-28 [place] [facility] 00:[facility]: d 00 [facility] No Known DA Active U 2020-09 [facility]ie 0-28 [place] [facility] NO KNOWN Drug Active Univers ALLERGIE Class ity of S [facility] Social History Social Habit Start Date Stop Date Quantity Comments Source Sex Assigned At [birth year] [facility] 00:00:00 00:00:00 [facility] Smoking Status Start Date Stop Date Source Unknown if ever smoked [facility] Medications Ordered Filled Start Stop Current Ordering Indication Dosage Frequency Signature Comments Components Source Medication Medication Date Date Medication? Clinician (SIG) Name Name fluconazole 2021-0 No 1mg 150 mg 7-27 tablet 00:00: 00 nystatin 2021-0 No 10unit/ 100,000 7-27 mL unit/mL 00:00: oral 00 suspension Dose 2021-0 No Unknown 7 00:00: 00 Dose 2021-0 No Unknown 04-20 00:00: 00 Dose 2021-0 No Unknown 04-20 00:00: 00 Sudafed 12 2021-0 No 1mg Hour 120 mg 6-17 tablet,exte 00:00: nded 00 release ProAir HFA 2021-0 No 2mcg/ac 90 4-29 tuation mcg/actuati 00:00: on aerosol 00 inhaler azithromyci 2021-0 No mg n 250 mg 4-29 tablet 00:00: 00 Dose 2021-0 No Unknown 4-29 00:00: 00 Dose 2-0 No Unknown 4-29 00:00: 00 Dose 2-0 No Unknown 4-29 00:00: 00 Dose 2021-0 No Unknown 4-29 00:00: 00 Dose 2-0 No Unknown 4-29 00:00: 00 Dose 2-0 No Unknown 4-29 00:00: 00 Dose 2-0 No Unknown 4-29 00:00: 00 Dose 2-0 No Unknown 4-29 00:00: 00 Dose 2-0 No Unknown 4-29 00:00: 00 Dose 2-0 No Unknown 4-29 00:00: 00 Dose 2-0 No Unknown 4-29 00:00: 00 Dose 2-0 No Unknown 4-29 00:00: 00 Dose 2-0 No Unknown 4-29 00:00: 00 Dose 2-0 No Unknown 4-29 00:00: 00 Dose 2-0 No Unknown 4-29 00:00: 00 Dose 2-0 No Unknown 4-29 00:00: 00 Dose 2-0 No Unknown 4-29 00:00: 00 Dose 2022-0 No Unknown 4- 00:00: 00 Dose 2022-0 No Unknown 4- 00:00: 00 Dose 2022-0 No Unknown 4- 00:00: 00 Dose 2022-0 No Unknown 4- 00:00: 00 Dose 2022-0 No Unknown 4- 00:00: 00 Dose 2022-0 No Unknown 4- 00:00: 00 Dose 2022-0 No Unknown 4- 00:00: 00 Dose 2022-0 No Unknown 4- 00:00: 00 Dose 2022-0 No Unknown 4- 00:00: 00 Dose 2022-0 No Unknown 4- 00:00: 00 Dose 2022-0 No Unknown 4- 00:00: 00 Dose 2022-0 No Unknown 4- 00:00: 00 Dose 2022-0 No Unknown 4- 00:00: 00 Dose 2022-0 No Unknown 4- 00:00: 00 Dose 2022-0 No Unknown 4- 00:00: 00 Dose 2022-0 No Unknown 4- 00:00: 00 Dose 2022-0 No Unknown 4- 00:00: 00 Dose 2022-0 No Unknown 4- 00:00: 00 Dose 2022-0 No Unknown 4- 00:00: 00 Dose 2022-0 No Unknown 4- 00:00: 00 Dose 2022-0 No Unknown 4- 00:00: 00 Dose 2022-0 No Unknown 4- 00:00: 00 Dose 2022-0 No Unknown 4- 00:00: 00 Dose 2022-0 No Unknown 4- 00:00: 00 Dose 2022-0 No Unknown 4- 00:00: 00 Dose 2022-0 No Unknown 4- 00:00: 00 Dose 2022-0 No Unknown 4- 00:00: 00 Dose 2022-0 No Unknown 4- 00:00: 00 Dose 2022-0 No Unknown 4- 00:00: 00 Dose 2022-0 No Unknown 4- 00:00: 00 Dose 2022-0 No Unknown 4- 00:00: 00 Dose 2022-0 No Unknown 4- 00:00: 00 Dose 2022-0 No Unknown 4- 00:00: 00 Dose 2022-0 No Unknown 4-29 00:00: 00 Dose 2022-0 No Unknown 4- 00:00: 00 Dose 2022-0 No Unknown 4- 00:00: 00 Dose 2022-0 No Unknown 4- 00:00: 00 Dose 2022-0 No Unknown 4- 00:00: 00 Dose 2022-0 No Unknown 4- 00:00: 00 Dose 2022-0 No Unknown 4- 00:00: 00 Dose 2022-0 No Unknown 4- 00:00: 00 Dose 2022-0 No Unknown 4- 00:00: 00 Dose 2022-0 No Unknown 4- 00:00: 00 Dose 2022-0 No Unknown 4- 00:00: 00 Dose 2022-0 No Unknown 4- 00:00: 00 Dose 2022-0 No Unknown 4 00:00: 00 Dose 2022-0 No Unknown 4- 00:00: 00 Dose 2022-0 No Unknown 4- 00:00: 00 Dose 2022-0 No Unknown 4- 00:00: 00 Dose 2022-0 No Unknown 4- 00:00: 00 Dose 2022-0 No Unknown 4- 00:00: 00 Dose 2022-0 No Unknown 4- 00:00: 00 Dose 2022-0 No Unknown 4- 00:00: 00 Dose 2022-0 No Unknown 4- 00:00: 00 Dose 2022-0 No Unknown 4- 00:00: 00 Dose 2022-0 No Unknown 4- 00:00: 00 Dose 2022-0 No Unknown 4- 00:00: 00 Dose 2022-0 No Unknown 4- 00:00: 00 Dose 2022-0 No Unknown 4- 00:00: 00 Dose 2022-0 No Unknown 4- 00:00: 00 Dose 2022-0 No Unknown 4- 00:00: 00 Dose 2022-0 No Unknown 4- 00:00: 00 Dose 2022-0 No Unknown 4- 00:00: 00 Dose 2022-0 No Unknown 4- 00:00: 00 Dose 2022-0 No Unknown 4- 00:00: 00 Dose 2022-0 No Unknown 4- 00:00: 00 Dose 2022-0 No Unknown 4- 00:00: 00 Dose 2022-0 No Unknown 4- 00:00: 00 Dose 2022-0 No Unknown 4- 00:00: 00 Dose 2022-0 No Unknown 4- 00:00: 00 Dose 2022-0 No Unknown 4- 00:00: 00 Dose 2022-0 No Unknown 4- 00:00: 00 Dose 2022-0 No Unknown 4- 00:00: 00 Dose 2022-0 No Unknown 4- 00:00: 00 Dose 2022-0 No Unknown 4- 00:00: 00 Dose 2022-0 No Unknown 4- 00:00: 00 Dose 2022-0 No Unknown 4- 00:00: 00 Dose 2022-0 No Unknown 4- 00:00: 00 Dose 2022-0 No Unknown 4- 00:00: 00 Dose 2022-0 No Unknown 4- 00:00: 00 Dose 2022-0 No Unknown 4- 00:00: 00 Dose 2022-0 No Unknown 4- 00:00: 00 Dose 2022-0 No Unknown 4- 00:00: 00 Dose 2022-0 No Unknown 4- 00:00: 00 Dose 2022-0 No Unknown 4- 00:00: 00 Dose 2022-0 No Unknown 4- 00:00: 00 Dose 2022-0 No Unknown 4- 00:00: 00 Dose 2022-0 No Unknown 4- 00:00: 00 Dose 2022-0 No Unknown 4- 00:00: 00 Dose 2022-0 No Unknown 4- 00:00: 00 Dose 2022-0 No Unknown 4- 00:00: 00 Dose 2022-0 No Unknown 4- 00:00: 00 Dose 2022-0 No Unknown 4- 00:00: 00 Dose 2022-0 No Unknown 4- 00:00: 00 Dose 2022-0 No Unknown 4- 00:00: 00 Dose 2022-0 No Unknown 4-11 00:00: 00 Dose 2022-0 No Unknown 4-11 00:00: 00 Dose 2022-0 No Unknown 4-11 00:00: 00 Dose 2022-0 No Unknown 4-11 00:00: 00 Dose 2022-0 No Unknown 4-11 00:00: 00 Dose 2022-0 No Unknown 4-11 00:00: 00 Dose 2022-0 No Unknown 4-11 00:00: 00 Dose 2022-0 No Unknown 4-11 00:00: 00 Dose 2022-0 No Unknown 4-11 00:00: 00 Dose 2022-0 No Unknown 4-11 00:00: 00 Dose 2022-0 No Unknown 4-11 00:00: 00 Dose 2022-0 No Unknown 4-11 00:00: 00 Dose 2022-0 No Unknown 4-11 00:00: 00 Dose 2022-0 No Unknown 4-11 00:00: 00 Dose 2022-0 No Unknown 4-11 00:00: 00 Dose 2022-0 No Unknown 4-11 00:00: 00 Dose 2022-0 No Unknown 4-11 00:00: 00 Dose 2022-0 No Unknown 4-11 00:00: 00 Dose 2022-0 No Unknown 4-11 00:00: 00 Dose 2022-0 No Unknown 4-11 00:00: 00 Dose 2022-0 No Unknown 4-11 00:00: 00 Dose 2022-0 No Unknown 4-11 00:00: 00 Dose 2022-0 No Unknown 4-11 00:00: 00 Dose 2022-0 No Unknown 4-11 00:00: 00 Dose 2022-0 No Unknown 4-11 00:00: 00 Dose 2022-0 No Unknown 4-11 00:00: 00 Dose 2022-0 No Unknown 4-11 00:00: 00 Dose 2022-0 No Unknown 4-11 00:00: 00 Dose 2022-0 No Unknown 4-11 00:00: 00 Dose 2022-0 No Unknown 4-11 00:00: 00 Dose 2022-0 No Unknown 4-11 00:00: 00 Dose 2022-0 No Unknown 4-11 00:00: 00 Dose 2022-0 No Unknown 4-11 00:00: 00 Dose 2022-0 No Unknown 4-11 00:00: 00 Dose 2022-0 No Unknown 4-11 00:00: 00 Dose 2022-0 No Unknown 4-11 00:00: 00 Dose 2022-0 No Unknown 4-11 00:00: 00 Dose 2022-0 No Unknown 4-11 00:00: 00 Dose 2022-0 No Unknown 4-11 00:00: 00 Dose 2022-0 No Unknown 4-11 00:00: 00 Dose 2022-0 No Unknown 4-11 00:00: 00 Dose 2022-0 No Unknown 4-11 00:00: 00 Dose 2022-0 No Unknown 4-11 00:00: 00 Dose 2022-0 No Unknown 4-11 00:00: 00 Dose 2022-0 No Unknown 4-11 00:00: 00 Dose 2022-0 No Unknown 4-11 00:00: 00 Dose 2022-0 No Unknown 4-11 00:00: 00 Dose 2022-0 No Unknown 4-11 00:00: 00 Dose 2022-0 No Unknown 4-11 00:00: 00 Dose 2022-0 No Unknown 3-17 00:00: 00 Dose 2022-0 No Unknown 3-17 00:00: 00 Dose 2022-0 No Unknown 3-17 00:00: 00 Dose 2022-0 No Unknown 3-17 00:00: 00 Dose 2022-0 No Unknown 3-17 00:00: 00 Dose 2022-0 No Unknown 3-17 00:00: 00 Dose 2022-0 No Unknown 3-17 00:00: 00 Dose 2022-0 No Unknown 3-17 00:00: 00 Dose 2022-0 No Unknown 3-17 00:00: 00 Dose 2022-0 No Unknown 3-17 00:00: 00 Dose 2022-0 No Unknown 3-17 00:00: 00 Dose 2022-0 No Unknown 3-17 00:00: 00 Dose 2022-0 No Unknown 3-17 00:00: 00 Dose 2022-0 No Unknown 3-17 00:00: 00 Dose 2022-0 No Unknown 3-17 00:00: 00 Dose 2022-0 No Unknown 3-17 00:00: 00 Dose 2022-0 No Unknown 3-17 00:00: 00 Dose 2022-0 No Unknown 3-17 00:00: 00 Dose 2022-0 No Unknown 3-17 00:00: 00 Dose 2022-0 No Unknown 3-17 00:00: 00 Dose 2022-0 No Unknown 3-17 00:00: 00 Dose 2022-0 No Unknown 3-17 00:00: 00 Dose 2022-0 No Unknown 3-17 00:00: 00 Dose 2022-0 No Unknown 3-17 00:00: 00 Dose 2022-0 No Unknown 3-17 00:00: 00 Dose 2022-0 No Unknown 3-17 00:00: 00 Dose 2022-0 No Unknown 3-17 00:00: 00 Dose 2022-0 No Unknown 3-17 00:00: 00 Dose 2022-0 No Unknown 3-17 00:00: 00 Dose 2022-0 No Unknown 3-17 00:00: 00 Dose 2022-0 No Unknown 3-17 00:00: 00 Dose 2022-0 No Unknown 3-17 00:00: 00 Dose 2022-0 No Unknown 3-17 00:00: 00 Dose 2022-0 No Unknown 3-17 00:00: 00 Dose 2022-0 No Unknown 3-17 00:00: 00 Dose 2022-0 No Unknown 3-17 00:00: 00 Dose 2022-0 No Unknown 3-17 00:00: 00 Dose 2022-0 No Unknown 3-17 00:00: 00 Dose 2022-0 No Unknown 3-17 00:00: 00 Dose 2022-0 No Unknown 3-17 00:00: 00 Dose 2022-0 No Unknown 3-17 00:00: 00 Dose 2022-0 No Unknown 3-17 00:00: 00 Dose 2022-0 No Unknown 3-17 00:00: 00 Dose 2022-0 No Unknown 3-17 00:00: 00 Dose 2022-0 No Unknown 3-17 00:00: 00 Dose 2022-0 No Unknown 3-17 00:00: 00 Dose 2022-0 No Unknown 3-17 00:00: 00 Dose 2022-0 No Unknown 3-17 00:00: 00 Dose 2022-0 No Unknown 3-16 00:00: 00 Dose 2022-0 No Unknown 3-16 00:00: 00 Dose 2022-0 No Unknown 3-16 00:00: 00 Dose 2022-0 No Unknown 3-16 00:00: 00 Dose 2022-0 No Unknown 3-16 00:00: 00 Dose 2022-0 No Unknown 3-16 00:00: 00 Dose 2022-0 No Unknown 3-16 00:00: 00 Dose 2022-0 No Unknown 3-16 00:00: 00 Dose 2022-0 No Unknown 3-16 00:00: 00 Dose 2022-0 No Unknown 3-16 00:00: 00 Dose 2022-0 No Unknown 3-16 00:00: 00 Dose 2022-0 No Unknown 3-16 00:00: 00 Dose 2022-0 No Unknown 3-16 00:00: 00 Dose 2022-0 No Unknown 3-16 00:00: 00 Dose 2022-0 No Unknown 3-16 00:00: 00 Dose 2022-0 No Unknown 3-16 00:00: 00 Dose 2022-0 No Unknown 3-16 00:00: 00 Dose 2022-0 No Unknown 3-16 00:00: 00 Dose 2022-0 No Unknown 3-16 00:00: 00 Dose 2022-0 No Unknown 3-16 00:00: 00 Dose 2022-0 No Unknown 3-16 00:00: 00 Dose 2022-0 No Unknown 3-16 00:00: 00 Dose 2022-0 No Unknown 3-16 00:00: 00 Dose 2022-0 No Unknown 3-16 00:00: 00 Dose 2022-0 No Unknown 3-16 00:00: 00 Dose 2022-0 No Unknown 3-16 00:00: 00 Dose 2022-0 No Unknown 3-16 00:00: 00 Dose 2022-0 No Unknown 3-16 00:00: 00 Dose 2022-0 No Unknown 3-16 00:00: 00 Dose 2022-0 No Unknown 3-16 00:00: 00 Dose 2022-0 No Unknown 3-16 00:00: 00 Dose 2022-0 No Unknown 3-16 00:00: 00 Dose 2022-0 No Unknown 3-16 00:00: 00 Dose 2022-0 No Unknown 3-16 00:00: 00 Dose 2022-0 No Unknown 3-16 00:00: 00 Dose 2022-0 No Unknown 3-16 00:00: 00 Dose 2022-0 No Unknown 3-16 00:00: 00 Dose 2022-0 No Unknown 3-16 00:00: 00 Dose 2022-0 No Unknown 3-16 00:00: 00 Dose 2022-0 No Unknown 3-16 00:00: 00 Dose 2022-0 No Unknown 3-16 00:00: 00 Dose 2022-0 No Unknown 3-16 00:00: 00 Dose 2021-0 No Unknown 3-16 00:00: 00 Dose 2021-0 No Unknown 3-16 00:00: 00 prednisone 2-0 No mg 20 mg 2-18 tablet 00:00: 00 azithromyci 2021-0 No mg n 250 mg 2-18 tablet 00:00: 00 No known 2020-1 No [facility] medications 0-09 ity of 19:54: [address] metoprolol 2020-0 No 1mg tartrate 50 8-10 mg tablet 00:00: 00 omeprazole 2020-0 No 1mg 20 mg 8-10 capsule,del 00:00: ayed 00 release amoxicillin 2020-0 No mg 875 8-04 mg-potassiu 00:00: m 00 clavulanate 125 mg tablet fluticasone 2020-0 No mcg/act propionate 8-04 uation 50 00:00: mcg/actuati 00 on nasal spray,suspe nsion Pantoprazol Pantoprazol 0 Yes Na Lopez 1 tablet Common e Sodium e Sodium 05-04 Spirit 00:00: - [facility] 00 [facility] Ergocalcife Ergocalcife 2019-1 2020- No Na Lopez 1 capsule Common rol rol 1-18 11-10 Spirit 00:00: 00:00 - CHI 00 :00 [facility] Paxil Paxil 0 Yes Na Lopez 1 tablet Comm on 12-26 in the Spirit 00:00: morning - [facility]I 00 [facility] Humira Humira Yes Na Lopez not Common defined [facility] Aspirin Aspirin Yes Na Lopez not Common defined [facility] BusPIRone BusPIRone Yes Na Lopez 1 tablet Common HCl HCl [facility] Metoprolol Metoprolol Yes Na Lopez 1 tablet Common Tart[facility] Signs Vital Name Observation Time Observation Value Comments Source Systolic blood 2021-07-04 00:50:00 180 mm[Hg] [facility] Diastolic blood 2021-07-04 00:50:00 110 mm[Hg] [facility] Heart rate 2021-07-04 00:50:00 79 /min [facility] Body temperature 2021-07-04 00:50:00 36.67 Gem [facility] Respiratory rate 2021-07-04 00:50:00 18 /min [facility] Body weight 2021-07-04 00:50:00 121.564 kg [facility] Oxygen saturation in 2021-07-04 00:50:00 99 /min [facility] Arterial blood by [facility] Pulse oximetry Branch BP Systolic 2022-01-21 14:32:00 BP Diastolic 2022-01-21 14:32:00 Weight Measured 2022-01-21 14:32:00 276.00 pounds Height Measured 2022-01-21 14:32:00 63.00 inches Body Temperature 2022-01-21 14:32:00 Heart Rate 2022-01-21 14:32:00 Respiratory Rate 2022-01-21 14:32:00 Procedures Procedure Date / Time Performed Performing Clinician Sour e XR CHEST 1 VW 2021-07-04 01:14:37 Raissa Tran [facility] NOTICE OF PRIVACY 2021-07-04 00:45:31 Doctor Unassigned, No [facility] Name [facility] CONSENT/REFUSAL FOR 2021-07-04 00:45:10 [facility] Name [facility] TREATMENT Plan of Care Planned Activity Planned Date Details Comments Source Goal Plan of Care Note [code = 22658-0] Goal Plan of Care Note [code = 83696-9] Goal Plan of Care Note [code = 61999-3] Goal Plan of Care Note [code = 62738-9] Goal Plan of Care Note [code = 56807-9] Goal Plan of Care Note [code = 45342-1] Goal Plan of Care Note [code = 37552-4] Encounters Start End Encounter Admission Attending Care Care Encounter Source Date/Time Date/Time Type Type Clinicians Facility Department ID [facility]04[id number] 15:29:00 [facility] 2022-04-07 [facility] [id number] 2 Common 16:07:00 [id number] [facility] 2022-01-04 Outpatient Lopez, Na STLMLC [facility] [id number] 2 Common 09:31:01 [id number] [facility] 2021-10-20 Outpatient Lopez, Na STLMLC ST[facility] [id number] 2 Common 14:09:55 [id number] [facility] 2021-10-20 Outpatient Lopez, Na STLMLC ST[facility]ML[facility] [id number] 2 Common 13:47:22 [id number] [facility] 2021-10-20 Outpatient Lopez, Na STLMLC STLMLC [id number] 2 Common 12:29:04 [id number] [facility] 2021-10-20 Outpatient Lopez, Na STLMLC ST[facility]C [id number] 2 Common 12:03:44 [id number] [facility] 2021-10-20 Outpatient Lopez, Na STLMLC STLMLC [id number] 2 Common 12:03:05 [id number] [facility] 2021-10-20 Outpatient Lopez, Na STLMLC STL[facility]C [id number] 2 Common 11:43:49 [id number] [facility] 2021-10-20 Outpatient Lopez, Na STLMLC STLMLC [id number] 2 Common 11:35:56 [id number] [facility] 2021-10-20 Outpatient Lopez, Na STLMLC STLMLC [id number] 2 Common 11:18:09 [id number] [facility] 2021-10-20 Outpatient Lopez, Na STLMLC STLMLC [id number] 2 Common 11:04:54 [id number] [facility] 2021-10-20 Outpatient Lopez, Na STLMLC STLMLC [id number] 2 Common 11:04:25 [id number] [facility] 2022-04-27 2022-04-27 ambulatory STLMLC STLMLC [id number] Common 00:00:00 00:00:00 [facility] 2022-04-26 2022-04-26 ambulatory STLMLC STLMLC [id number] Common 00:00:00 00:00:00 [facility] 2022-04-20 2022-04-20 Outpatient [id number] 00:00:00 00:00:00 Visit [id number] 2022-03-30 2022-03-30 ambulatory STLMLC STLMLC [id number] Common 00:00:00 00:00:00 [facility] 2022-02-14 2022-02-14 ambulatory STLMLC STLMLC [id number] Common 00:00:00 00:00:00 [facility] 2022-01-27 2022-01-27 ambulatory STLMLC STLMLC [id number] Common 00:00:00 00:00:00 [facility] 2022-01-26 2022-01-26 ambulatory STLMLC STLMLC [id number] Common 00:00:00 00:00:00 [facility] 2022-01-18 2022-01-18 ambulatory STLMLC STLMLC [id number] Common 00:00:00 00:00:00 [facility] 2022-01-05 2022-01-05 ambulatory STLMLC STLMLC [id number] Common 00:00:00 00:00:00 [facility] 2021-12-28 2021-12-28 ambulatory STLMLC STLMLC [id number] Common 00:00:00 00:00:00 [facility] 2021-11-15 2021-11-15 ambulatory STLMLC STLMLC [id number] Common 00:00:00 00:00:00 [facility] 2021-11-11 2021-11-11 ambulatory STLMLC STLMLC [id number] Common 00:00:00 00:00:00 [facility] 2021-09-28 2021-09-28 ambulatory STLMLC STLMLC [id number] Common 00:00:00 00:00:00 [facility] 2021-08-27 2021-08-27 ambulatory STLMLC STLMLC [id number] Common 00:00:00 00:00:00 [facility] 2021-08-04 2021-08-04 ambulatory STLMLC STLMLC [id number] Common 00:00:00 00:00:00 [facility] 2021-08-02 2021-08-02 ambulatory STLMLC STLMLC [id number] Common 00:00:00 00:00:00 [facility] 2021-07-22 2021-07-22 Outpatient Vanesa Nunez HCAPM RADI LA5 [id number] [facility] 08:00:00 08:00:00 [id number] [facility] 2021-07-22 2021-07-22 Outpatient EL Vanesa Nunez HCAPM RADI LA0 [id number] [facility] 07:26:00 07:26:00 63 [facility] 2021-07-03 2021-07-03 [facility] [id number] [facility] 19:47:00 21:16:00 [id number] [id number] [place] [id number] [place] 2021-07-03 2021-07-03 Emergency X [facility] ERT [id number] Univers 19:47:00 19:47:00 [facility] 2021-06-07 2021-06-07 Outpatient STLMLC STLMLC [id number] Common 00:00:00 00:00:00 [facility] 2021-05-06 2021-05-06 Outpatient STLMLC STLMLC [id number] Common 00:00:00 00:00:00 [facility] 2021-04-28 2021-04-28 Outpatient STLMLC STLMLC [id number] Common 00:00:00 00:00:00 [facility] 2021-04-27 2021-04-27 Outpatient STLMLC STLMLC [id number] Common 00:00:00 00:00:00 [facility] 2021-03-15 2021-03-15 Outpatient STLMLC STLMLC [id number] Common 00:00:00 00:00:00 [facility] 2021-01-04 2021-01-04 Outpatient STLMLC STLMLC [id number] Common 00:00:00 00:00:00 [facility] 2020-11-03 2020-11-03 Outpatient STLMLC STLMLC [id number] Common 00:00:00 00:00:00 [facility] 2020-08-03 2020-08-03 Outpatient STLMLC STLMLC [id number] Common 00:00:00 00:00:00 [facility] 2020-05-04 2020-05-04 [id number] Common 10:10:00 10:10:[address] [facility] 2020-05-01 2020-05-01 [facility] [id number] Common 09:40:00 09:40:00 [address] [place] [address] [facility] 2020-02-19 2020-02-19 [facility] [id number] Common 16:06:00 16:06:[address] [facility] [address] [facility] 2019-12-12 2019-12-12 [facility] [id number] Common 15:41:00 15:41:00 [address] [place] [address] [facility] 2019-09-16 2019-09-16 [facility] [id number] Common 14:40:00 14:40:00 [address] [place] [address] [facility] 2019-08-15 2019-08-15 [facility] [id number] Common 09:27:00 09:27:00 [address] [place] [address] [facility] 2019-08-12 2019-08-12 [facility] [id number] Common 09:00:00 09:00:00 [address] [place] [address] [facility] 2019-07-31 2019-07-31 [facility] [id number] Common 11:46:00 11:46:00 [address] [place] [address] [facility] 2019-07-29 2019-07-29 [facility] [id number] Common 09:40:00 09:40:00 [address] [place] [address] [facility] 2019-06-02 2019-06-02 [facility] [id number] Common 09:38:00 09:38:00 [facility] 2019-05-31 2019-05-31 [facility] [id number] Common 11:30:00 11:30:00 [facility] 2018-01-19 2018-01-19 [facility] [id number] Common 08:11:00 08:11:00 [address] [place] [address] [facility] 2018-01-18 2018-01-18 [facility] [id number] Common 10:15:00 10:15:00 [address] [place] [address] [facility] 2017-12-26 2017-12-26 [facility] [id number] Common 09:30:00 09:30:00 [address] [place] [address] [facility] Results Test Description Test Time Test Comments Results Result Comments Source SARS-CoV-2 (COVID-19), RT-PCR/TMA 2021-12-10 07:26:55 Test Item Value Reference Range Interpretation Comme nts SARS-CoV-2 INTERPRETATION NEGATIVE SEE NOTE S ARS-CoV-2 RNA NOT (test code = 56993) DETECTED Negative results do not preclude SARS-C [...] LONGER BE TE STED WITHTHIS ORDER CODE. FOR SALIVA, ORAL FLUID TESTING A ND SPECIMENREQUIRE MENTS, PLEASE REFER TO ORDER CODE 3509. SOURCE (test code = 60879) NASOPHARYNGEAL Note: Methodology is Ro Charito Real-Time RT-PC R. The expected result or refer ence range is NEGATIVE (Not D etected). For more information reg arding COVID-19 testing to incl ude clinicalinforma tion, methodology detail, intende d use, FDA authorization a ndrecommended fact sheets for carlos ents or healthcare providers, see [facility] Announcement: S ARS-CoV-2 (COVID-19) by N AAT at URL below (note,fact shee ts are provided by method given in report:https:// [email or web address]/cl inicians/client -communications/ Alternatively, see downloadable PDF fact sheet at:[email or web address]. [employer]/COVID- 19-RT-PCR UNLES S OTHERWISE INDICATED, ALL TESTING PERFORMED ATCLINICAL PATH [facility], [facility]. [address] [place] [address] 4 [employer] VICE PRESIDENT: PRUDENCE SOLIS M.D. CLIA NUMBER [id number] CAP ACCREDITATION N O. 73218-12 SARS-CoV-2 (COVID-19) by RT-PCR (HIGH RISK)2021-12-10 00:00:00 Test Item Value Reference Range Interpretation Comments SARS-CoV-2 INTERPRETATION NEGATIVE (test code = 02835) SOURCE (test code = 40866) NASOPHARYNGEAL - CT ABD PELVIS [id number] 09:50:00 [facility] 1975 Sex: F Name: SHE GUARDADO [facility] : 1975 Age/S: 46 / F [address] Unit #: [id number] Loc: [place] [address] Phys: Vanesa Nunez MD Acct: [id number] Dis Date: Status: REG CLI PHONE #: [phone] Exam Date: 07/22/2021917 FAX #: Reason: CROHNS DISEASE, UNSPECIFIED, WITHOUT COMPLICATI E XAMS: CPT: [id number] CT ABD PELVIS W/CONT 62473 HISTORY: CROHN'S DISEASE, UNSPECIFIED, WITHOUT COMPLICATIONS TECHNIQUE: Helical imaging of the abdomen and pelvis is performed with intravenous contrast.Approximately 100 mL of intravenous contrast was administered. No oral contrast is administered. Sagi ttal and coronal reconstructions reviewed. CT DLP dose: [...] GUARDADO : 1975 Age/S: 46 / F [id number] Unit #: [id number] Loc: [place] [address] Phys: Vanesa Nunez MD Acct: [id number] Dis Date: Status: REG CLI PHONE #: [phone] Exam Date: 07/22/2021917 FAX #: Reason: CROHNS DISEASE, UNSPECIFIED, WITHOUT COMPLICATI EXAMS: CPT: [id number] CT ABD PELVIS W/CONT 16857 <Continued> IMPRESSION: 1. There is milddiffuse thickening of the transverse colon and splenic [...] (0950) [email or web address] Orig Print D/T: S: 07/22/2021 (8153) PAGE 2 Signed [id number] 08:27:00 Test Item Value Reference Range Interpretation Comments ISTAT-BUN (test code = BUNP) 8 mg/dL 8-26 N BEDSIDE [id number] 08:27:00 Test Item Value Reference Range Interpretation Comments BEDSIDE CREATININE (test code = 0.6 mg/dL 0.6-1.3 N CREATBED) SARS-COV-2 (COVID19), NAAT [ADDED]2020-10-02 00:00:00 Test Item Value Reference Range Interpretation Comments SARS-CoV-2 INTERPRETATION (test NEGATIVE code = 82768) SOURCE (test code = 04920) NOT SPECIFIED SARS-CoV-2 (COVID-19) by RT-PCR (HIGH RISK)2020-04-17 00:00:00 Test Item Value Reference Range Interpretation Comments SARS-CoV-2 INTERPRETATION (test NEGATIVE code = 41087) SOURCE (test code = 45106) NOT SPECIFIED
--- NOTE | 2022-04-29 19:22 | RAD REPORT ---
EXAM DESCRIPTION: Elder Single View04/29/2022 7:15 pm CLINICAL HISTORY: Chest pain COMPARISON: March 2022 FINDINGS: The lungs appear clear of acute infiltrate. The heart is normal size IMPRESSION: No acute abnormalities displayed
[2022-04-29] MEDS ORDERED: NA CHLORIDE 0.9% 1,000 ML ONE (19:39)
[2022-04-29 20:13] LABS: Absolute Lymphocytes (CBC) 3.4 K/uL (0.7-4.9); Hematocrit 39.2 % (36.0-45.0); Lymphocytes % 38.7 % (15.3-44.8); MCV 77.4 fL (80-100); MPV 8.2 fL (7.6-11.3); RBC Red Blood Cell Count 5.06 M/uL (3.86-4.86)
[2022-04-29 20:55] LABS: Albumin 3.4 g/dL (3.4-5.0); Bilirubin Total 0.4 mg/dL (0.2-1.0); Potassium 3.6 mmol/L (3.5-5.1); Protein, Total 8.1 g/dL (6.4-8.2)
[2022-04-29 21:03] LABS: Magnesium 1.8 mg/dL (1.8-2.4); Troponin High Sensitivity 5.1 pg/mL (<58.9)
--- NOTE | 2022-04-29 23:14 | ER ---
Nurse's Notes [facility] Name: Dori Guardado Age: 47 yrs Sex: Female : 1975 Arrival Date: 04/29/2022 Time: 18:01 Bed 26 Private MD: Diagnosis: Viral syndrome Presentation: 04/29 18:01 Chief complaint: Patient states: she was diagnosed with COVID Monday04/24/22. patient ap3 states she has been having an achy feeling in her chest and was feeling a little dizzy this afternoon as well. Coronavirus screen: Client reports previous positive COVID test result. Date of collection: April 24, 2022. Ebola Screen: No symptoms or risks identified at this time. Initial Sepsis Screen: Does the patient meet any 2 criteria? No. Patient's initial sepsis screen is negative. Does the patient have a suspected source of infection? No. Patient's initial sepsis screen is negative. Risk Assessment: Do you want to hurt yourself or someone else? Patient reports no desire to harm self or others. Onset of symptoms was April 23, 2022. 18:01 Method Of Arrival: Ambulatory ap3 18:01 Acuity: KASH 3 ap3 Triage Assessment: 18:04 General: Appears in no apparent distress. Behavior is calm, cooperative, appropriate ap3 for age. Pain: Complains of pain in chest and generalized body aches Pain began gradually, 2-3 days ago. EENT: Reports nasal congestion. Neuro: Level of Consciousness is awake, alert, obeys commands, Oriented to person, place, time, situation, Speech is normal. Cardiovascular: Patient's skin is warm and dry. Respiratory: Airway is patent Respiratory effort is even, unlabored. GI: Patient currently denies nausea, vomiting. 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 - Social history:: Smoking status: Patient denies any tobacco usage or history of. Screenin:05 Abuse screen: Denies threats or abuse. Nutritional screening: No deficits noted. ap3 Tuberculosis screening: No symptoms or risk factors identified. 22:09 Fall Risk None identified. hb Assessment: 19:45 General: Appears in no apparent distress. Behavior is calm, cooperative. Pain: Pain hb currently is 3 out of 10 on a pain scale. Neuro: Level of Consciousness is awake, alert, obeys commands, Oriented to person, place, time, situation. Cardiovascular: Patient's skin is warm and dry. Respiratory: Respiratory effort is even, unlabored, Respiratory pattern is regular, symmetrical. GI: No signs and/or symptoms were reported involving the gastrointestinal system. : No signs and/or symptoms were reported regarding the genitourinary system. EENT: No signs and/or symptoms were reported regarding the EENT system. Derm: Skin is pink, warm \T\ dry. Musculoskeletal: Reports body aches. 20:45 Reassessment: Patient appears in no apparent distress at this time. Patient and/or hb family updated on plan of care and expected duration. Pain level reassessed. Patient is alert, oriented x 3, equal unlabored respirations, skin warm/dry/pink. 21:30 Reassessment: Patient appears in no apparent distress at this time. Patient and/or hb family updated on plan of care and expected duration. Pain level reassessed. Patient is alert, oriented x 3, equal unlabored respirations, skin warm/dry/pink. Vital Signs: 18:01 BP 149 / 95; Pulse 89; Resp 18; Temp 98.8; Pulse Ox 98% ; Weight 125.19 kg; Height 5 ap3 ft. 4 in. (162.56 cm); 20:00 BP 138 / 80; Pulse 78; Resp 17; Pulse Ox 100% on R/A; hb 21:30 BP 121 / 84; Pulse 70; Resp 18; Pulse Ox 99% on R/A; hb 18:01 Body Mass Index 47.37 (125.19 kg, 162.56 cm) ap3 ED Course: 18:01 Patient arrived in ED. ap3 18:03 Triage completed. ap3 18:05 Arm band placed on right wrist. ap3 18:35 Yogesh Singh MD is Attending Physician. kdr 19:04 Attending Physician role handed off by Yogesh Singh MD [facility] 19:04 Carlos Alberto Rios MD is Attending Physician. [facility] 19:17 XRAY Chest (1 view) In Process Unspecified. EDMS 19:36 Gina Hayward, RN is Primary Nurse. hb 19:58 Inserted saline lock: 20 gauge in left antecubital area, using aseptic technique. Blood oe collected. 22:09 Patient has correct armband on for positive identification. hb 23:44 No provider procedures requiring assistance completed. intact, bleeding controlled, No hb redness/swelling at site. Administered Medications: 20:01 Drug: NS 0.9% 1000 ml Route: IV; Rate: 1 bolus; Site: left antecubital; hb 22:15 Follow up: Response: No adverse reaction; IV Status: Completed infusion; IV Intake: hb 1000ml Medication: 22:09 VIS not applicable for this client. hb Intake: 22:15 IV: 1000ml; Total: 1000ml. hb Outcome: 23:14 Discharge ordered by . [facility] 23:44 Discharged to home ambulatory. hb 23:44 Condition: stable 23:44 Discharge instructions given to patient, Instructed on discharge instructions, follow up and referral plans. medication usage, Demonstrated understanding of instructions, follow-up care, medications, Prescriptions given X 1. 23:45 Patient left the ED. hb Signatures: Dispatcher [employer] EDMS Yogesh Singh MD MD [facility] Gina Hayward, RN RN Navin Blake Amanda, RN RN ap3 Carlos Alberto Rios MD MD 7 Corrections: (The following items were deleted from the chart) 23:45 23:44 Patient did not have IV access during this emergency room visit. hb hb
--- NOTE | 2022-04-29 23:14 | EDPHYS ---
Physician Documentation [facility] Name: Dori Guardado Age: 47 yrs Sex: Female : 1975 Arrival Date: 04/29/2022 Time: 18:01 Bed 26 Private MD: ED Physician Carlos Alberto Rios HPI: 04/29 18:51 This 47 yrs old Black Female presents to ER via Ambulatory with complaints of body kdr aches, dizziness COVID positive. 18:51 She was diagnosed with COVID last Monday. Since then she has felt congested. In kdr addition the last few days she started to have some chest discomfort slight nausea and diarrhea. She has a history of Crohn's but current GI symptoms are not unusual for her GI issues. She denies bloody stools. Onset: The symptoms/episode began/occurred gradually, 1 week(s) ago. Severity of symptoms: At their worst the symptoms were mild moderate just prior to arrival, in the emergency department the symptoms are unchanged. The patient has not experienced similar symptoms in the past. The patient has been recently seen by a physician: Patient was seen last Monday in [facility] and had some general blood work done which she reported as normal. 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 - Social history:: Smoking status: Patient denies any tobacco usage or history of. ROS: 18:51 Constitutional: Negative for fever, chills, and weight loss, Eyes: Negative for injury, kdr pain, redness, and discharge, ENT: Negative for injury, pain, and discharge, Neck: Negative for injury, pain, and swelling, Abdomen/GI: Negative for abdominal pain, nausea, vomiting, diarrhea, and constipation, Back: Negative for injury and pain, : Negative for injury, bleeding, discharge, and swelling, MS/Extremity: Negative for injury and deformity, Skin: Negative for injury, rash, and discoloration, Neuro: Negative for headache, weakness, numbness, tingling, and seizure activity. 18:51 Cardiovascular: Positive for chest pain, Negative for edema, orthopnea, palpitations, paroxysmal nocturnal dyspnea. 18:51 Respiratory: Positive for cough, with no reported sputum, shortness of breath, Negative for hemoptysis, orthopnea, pleurisy. 18:51 Abdomen/GI: Positive for nausea, diarrhea. Exam: 18:51 Constitutional: This is a well developed, well nourished patient who is awake, alert, kdr and in no acute distress. Head/Face: Normocephalic, atraumatic. Eyes: Pupils equal round and reactive to light, extra-ocular motions intact. Lids and lashes normal. Conjunctiva and sclera are non-icteric and not injected. Cornea within normal limits. Periorbital areas with no swelling, redness, or edema. Neck: Trachea midline, no thyromegaly or masses palpated, and no cervical lymphadenopathy. Supple, full range of motion without nuchal rigidity, or vertebral point tenderness. No Meningismus. Chest/axilla: Normal chest wall appearance and motion. Nontender with no deformity. No lesions are appreciated. Cardiovascular: Regular rate and rhythm with a normal S1 and S2. No gallops, murmurs, or rubs. Normal PMI, no JVD. No pulse deficits. Respiratory: Lungs have equal breath sounds bilaterally, clear to auscultation and percussion. No rales, rhonchi or wheezes noted. No increased work of breathing, no retractions or nasal flaring. Abdomen/GI: Soft, non-tender, with normal bowel sounds. No distension or tympany. No guarding or rebound. No evidence of tenderness throughout. Back: No spinal tenderness. No costovertebral tenderness. Full range of motion. Skin: Warm, dry with normal turgor. Normal color with no rashes, no lesions, and no evidence of cellulitis. MS/ Extremity: Pulses equal, no cyanosis. Neurovascular intact. Full, normal range of motion. Neuro: Awake and alert, GCS 15, oriented to person, place, time, and situation. Cranial nerves II-XII grossly intact. Motor strength 5/5 in all extremities. Sensory grossly intact. Cerebellar exam normal. Normal gait. Psych: Awake, alert, with orientation to person, place and time. Behavior, mood, and affect are within normal limits. Vital Signs: 18:01 BP 149 / 95; Pulse 89; Resp 18; Temp 98.8; Pulse Ox 98% ; Weight 125.19 kg; Height 5 ap3 ft. 4 in. (162.56 cm); 20:00 BP 138 / 80; Pulse 78; Resp 17; Pulse Ox 100% on R/A; hb 21:30 BP 121 / 84; Pulse 70; Resp 18; Pulse Ox 99% on R/A; hb 18:01 Body Mass Index 47.37 (125.19 kg, 162.56 cm) ap3 MDM: 18:51 Data reviewed: vital signs, nurses notes, lab test result(s), radiologic studies. kdr Counseling: I had a detailed discussion with the patient and/or guardian regarding: the historical points, exam findings, and any diagnostic results supporting the discharge/admit diagnosis, lab results, radiology results, the need for outpatient follow up. 18:54 ED course: Dr. Rios to compete work-up and make disposition. kdr 23:12 Differential Diagnosis flu, COVID, Viral syndrome. Data interpreted: Pulse oximetry: on [facility] room air is 99 %. Interpretation: normal. Response to treatment: the patient's symptoms have resolved after treatment, the patient's blood pressure is in an acceptable range, mental status has returned to baseline, the patient no longer shows bradycardia, the patient is not short of breath, the patient is not tachycardic, the patient's pain is gone, the patient's temperature has normalized, patient is well hydrated. 23:12 ED course: Feels better, well appearing, NAD, VSS, no focal neurological deficits. [facility] Tolerating PO intake without difficulty. Discussed all test results and findings. She states that her doctor prescribed an inhaler and prednisone which she is taking. States she is ready for discharge home.. 23:14 Patient medically screened. [facility] 04/29 18:37 Order name: COVID-19 SARS RT PCR (Document "Date of Onset" if Symptomatic); Complete kdr Time: 21:25 04/29 18:37 Order name: Flu; Complete Time: 20:52 kdr 04/29 18:37 Order name: CBC with Diff; Complete Time: 20:30 kdr 04/29 18:37 Order name: CMP; Complete Time: 21:25 kdr 04/29 18:51 Order name: Magnesium; Complete Time: 21:25 kdr 04/29 18:51 Order name: NT PRO-BNP; Complete Time: 21:25 kdr 04/29 18:51 Order name: Troponin HS; Complete Time: 21:25 kdr 04/29 18:51 Order name: XRAY Chest (1 view); Complete Time: 19:37 kdr 04/29 18:51 Order name: EKG; Complete Time: 18:52 kdr 04/29 18:51 Order name: Cardiac monitoring; Complete Time: 20:22 kdr 04/29 21:26 Order name: D-Dimer; Complete Time: 21:42 7 04/29 23:08 Order name: Urine --Ancillary (enter results); Complete Time: 23:19 ds4 04/29 18:51 Order name: EKG - Nurse/Tech; Complete Time: 19:29 kdr 04/29 18:51 Order name: IV Saline Lock; Complete Time: 20:22 kdr 04/29 18:51 Order name: Labs collected and sent; Complete Time: 20:22 kdr 04/29 18:51 Order name: O2 Per Protocol; Complete Time: 20:22 kdr 04/29 18:51 Order name: O2 Sat Monitoring; Complete Time: 20:22 kdr 04/29 21:44 Order name: Urine Dipstick-Ancillary (obtain specimen); Complete Time: 23:07 7 04/29 21:44 Order name: Urine Test (obtain specimen); Complete Time: 23:07 7 Administered Medications: 20:01 Drug: NS 0.9% 1000 ml Route: IV; Rate: 1 bolus; Site: left antecubital; hb 22:15 Follow up: Response: No adverse reaction; IV Status: Completed infusion; IV Intake: hb 1000ml Disposition Summary: 04/29/22 23:14 Discharge Ordered Location: Home [facility] Problem: new [facility] Symptoms: have improved [facility] Condition: Stable [facility] Diagnosis - Viral syndrome [facility] Followup: [facility] - With: Private Physician - When: 1 - 2 days - Reason: Worsening of condition, Recheck today's complaints, Continuance of care, Re-evaluation by your physician Discharge Instructions: - Discharge Summary Sheet [facility] - Viral Illness, Adult [facility] Forms: - Medication Reconciliation Form [facility] - Thank You Letter [facility] - Antibiotic Education [facility] - Prescription Opioid Use [facility] Prescriptions: - guaifenesin 600 mg Oral tablet extended release 12hr - take 1 tablet by ORAL route every 12 hours As needed; 10 tablet; Refills: 0, mh7 Product Selection Permitted Signatures: Dispatcher [employer] Yogesh Patel MD MD [facility] Gina Hayward RN RN Madelin Montoya RN RN ap3 Carlos Alberto Rios MD MD 7 Corrections: (The following items were deleted from the chart) 20:05 18:52 BASIC METABOLIC PANEL+C.LAB.BRZ ordered. SHIMA RONQUILLO
[2022-04-30 02:38] VITALS: TEMP 98.8
[2022-04-30 02:43] VITALS: BP 121/84; O2SAT 99
--- NOTE | 2022-04-30 09:13 | EKG ---
Test Date: 2022-04-29 Test Time: 19:26:33 Network Pricing Consultant: STEPHEN MEASUREMENT RESULTS: Intervals: Rate: 67 NM: 168 QRSD: 86 QT: 382 QTc: 403 [place]: P: 53 NM: 168 QRS: -2 T: 11 INTERPRETIVE STATEMENTS: Normal sinus rhythm Normal ECG Compared to ECG 03/02/2022 12:07:26 No significant changes Electronically Signed On 04-30-22 09:12:39 CDT by Matthew Lofton
== END 2022-04-29 23:45 | disposition home or self-care (01) ==
LOC: ER 17:57
DX: B34.9 Viral infection, unspecified (principal); I10 Essential (primary) hypertension; Z20.822 Contact with and (suspected) exposure to COVID-19
CPT/HCPCS: 96361; 93005; 85025; 36415; 83735; 81025; 85379; 84484; 80053; 83880; 87804 ×2; 71045; 96360; 99284; U0003; J7030

== ENCOUNTER 2022-05-01 17:25 | Emergency (ER) | payer OTHER ==
--- OUTSIDE RECORDS SUMMARY | 2022-05-01 17:30 | XMS REPORT | Continuity of Care Document ---
:1975 Author Organization [facility] t Address [address] [place] [address] Care Team Providers Name Role Phone Noemy [...] rs active active ity of problems problems [facility] Allergies, Adverse Reactions, Alerts Allergy Allergy Status Severity Reaction(s) Onset Inactive Treating Comm ents Source Name Type Date Date Clinician No Known DA Active U 2020-09 [facility] 0-28 [facility] [facility] 00:[facility]: d 00 [facility] No Known DA Active U 2020-09 [facility] Allergie 0-28 [place] [facility] 00:00: d 00 [facility] NO KNOWN Drug Active Univers ALLERGIE Class ity of S [facility] Social History Social Habit Start Date Stop Date Quantity Comments Source Sex Assigned At [birth year] [facility] 00:00:00 00:00:00 [facility] Smoking Status Start Date Stop Date Source Unknown if ever smoked [facility] Medications Ordered Filled Start Stop Current Ordering Indication Dosage Frequency Signature Comments Components Source Medication Medication Date Date Medication? Clinician (SIG) Name Name fluconazole 2021-0 No 1mg 150 mg 7-27 tablet 00:00: 00 nystatin 2021-0 No 10unit/ 100,000 7-27 mL unit/mL 00:00: oral 00 suspension Dose 2021-0 No Unknown 727 00:00: 00 Dose 2-0 No Unknown 7 00:00: 00 Dose 2-0 No Unknown 7 00:00: 00 Sudafed 12 2021-0 No 1mg Hour 120 mg 6-17 tablet,exte 00:00: nded 00 release Dose 2021-0 No Unknown 4-29 00:00: 00 Dose 2022-0 No Unknown 4-29 00:00: 00 Dose 2022-0 No Unknown 4-29 00:00: 00 Dose 2022-0 No Unknown 4-29 00:00: 00 Dose 2022-0 No Unknown 4-29 00:00: 00 Dose 2022-0 No Unknown 4-29 00:00: 00 Dose 2022-0 No Unknown 4-29 00:00: 00 Dose 2022-0 No Unknown 4-29 00:00: 00 Dose 2022-0 No Unknown 4-29 00:00: 00 Dose 2022-0 No Unknown 4-29 00:00: 00 Dose 2022-0 No Unknown 4-29 00:00: 00 Dose 2022-0 No Unknown 4-29 00:00: 00 Dose 2022-0 No Unknown 4-29 00:00: 00 Dose 2022-0 No Unknown 4-29 00:00: 00 Dose 2022-0 No Unknown 4-29 00:00: 00 Dose 2022-0 No Unknown 4-29 00:00: 00 Dose 2022-0 No Unknown 4-29 00:00: 00 Dose 2022-0 No Unknown 4-29 00:00: 00 Dose 2022-0 No Unknown 4-29 00:00: 00 Dose 2022-0 No Unknown 4-29 00:00: 00 Dose 2022-0 No Unknown 4-29 [...] 4 00:00: 00 Dose 2022-0 No Unknown 4 00:00: 00 Dose 2-0 No Unknown 4 00:00: 00 Dose 2-0 No Unknown 4 00:00: 00 Dose 2022-0 No Unknown 4 00:00: 00 Dose 2-0 No Unknown 4 00:00: 00 Dose 2-0 No Unknown 4 00:00: 00 Dose 2022-0 No Unknown 4 00:00: 00 Dose 2-0 No Unknown 4 00:00: 00 Dose 2-0 No Unknown 4 00:00: 00 Dose 2-0 No Unknown 4 00:00: 00 Dose 2-0 No Unknown 4 00:00: 00 Dose 2-0 No Unknown 4 00:00: 00 Dose 2-0 No Unknown 4 00:00: 00 Dose 2-0 No Unknown 4 00:00: 00 Dose 2-0 No Unknown 4 00:00: 00 Dose 2-0 No Unknown 4 00:00: 00 Dose 2-0 No Unknown 4 00:00: 00 ProAir HFA 2021-0 No 2mcg/ac 90 01-21 tuation mcg/actuati 00:00: on aerosol 00 inhaler azithromyci 2021-0 No mg n 250 mg 01-21 tablet 00:00: 00 Dose 2-0 No Unknown 01-21 00:00: 00 Dose 2-0 No Unknown 01-21 00:00: 00 Dose 2-0 No Unknown 01-21 00:00: 00 Dose 2-0 No Unknown 01-21 00:00: 00 Dose 2-0 No Unknown 01-21 00:00: 00 Dose 2-0 No Unknown 01-21 00:00: 00 Dose 2-0 No Unknown 01-21 00:00: 00 Dose 2-0 No Unknown 01-21 00:00: 00 Dose 2-0 No Unknown 01-21 00:00: 00 Dose 2022-0 No Unknown 4 00:00: 00 Dose 2-0 No Unknown 4 00:00: 00 Dose 2022-0 No Unknown 4 [...] No Univers medications 0-09 ity of 19:54: [address] metoprolol 2020-0 No 1mg tartrate 50 8-10 mg tablet 00:00: 00 omeprazole 2020-0 No 1mg 20 mg 8-10 capsule,del 00:00: ayed 00 release amoxicillin 2020-0 No mg 875 8-04 mg-potassiu 00:00: m 00 clavulanate 125 mg tablet fluticasone 0 No mcg/act propionate 8-04 uation 50 00:00: mcg/actuati 00 on nasal spray,suspe nsion Pantoprazol Pantoprazol 0 Yes Na Lopez 1 tablet Common e Sodium e Sodium 05-04 [facility] 00:[facility]: - [facility] 00 [facility] Ergocalcife Ergocalcife 2019-1 2020- No Na Lopez 1 capsule Common rol rol 1-18 11-10 [facility] 00:00: 00:00 - [facility] 00 :00 [facility] Paxil Paxil 0 Yes Na Lopez 1 tablet Comm on 12-26 in the [facility] 00:00: morning - [facility] 00 [facility] Humira Humira Yes Na Lopez not Common defined [facility] Aspirin Aspirin Yes Na Lopez not Common defined [facility] BusPIRone BusPIRone Yes Na Lopez 1 tablet Common HCl HCl [facility] Metoprolol Metoprolol Yes Na Lopez 1 tablet Common [facility]s Vital Name Observation Time Observation Value Comments Source Systolic blood 2021-07-04 00:50:00 180 mm[Hg] [facility] Diastolic blood 2021-07-04 00:50:00 110 mm[Hg] [facility] Heart rate 2021-07-04 00:50:00 79 /min [facility] Body temperature 2021-07-04 00:50:00 36.67 Gem [facility] Respiratory rate 2021-07-04 00:50:00 18 /min [facility] Body weight 2021-07-04 00:50:00 121.564 kg [facility] Oxygen saturation in 2021-07-04 00:50:00 99 /min [facility] Arterial blood by [facility] Pulse oximetry Branch BP Systolic 2022-01-21 14:32:00 [...] OF PRIVACY 2021-07-04 00:45:31 Doctor Unassigned, No [facility] PRACTICES Name [facility] CONSENT/REFUSAL FOR 2021-07-04 00:45:10 [facility] TREATMENT Plan of Care Planned Activity Planned Date Details Comments Source Goal Plan of Care Note [code = 00361-3] Goal Plan of Care Note [code = 65726-2] Goal Plan of Care Note [code = 60166-3] Goal Plan of Care Note [code = 66752-4] Goal Plan of Care Note [code = 53405-1] Goal Plan of Care Note [code = 31458-4] Goal Plan of Care Note [code = 67934-7] Encounters Start End Encounter Admission Attending Care Care Encounter Source Date/Time Date/Time Type Type Clinicians Facility Department ID [facility]22[facility]04[id number] Common 15:29:00 [id number] [facility] 2022-04-07 [id number] Common 16:07:00 [id number] [facility] 2022-01-04 Outpatient Lopez, Na STLMLC STLMLC [id number] 2 Common 09:31:01 [id number] [facility] 2021-10-20 Outpatient Lopez, Na STLMLC STLMLC [id number] 2 Common 14:09:55 [id number] [facility] 2021-10-20 Outpatient Lopez, Na STLMLC STLMLC [id number] 2 Common 13:47:22 [id number] [facility] 2021-10-20 Outpatient Lopez, Na STLMLC STLMLC [id number] 2 Common 12:29:04 [id number] [facility] 2021-10-20 Outpatient Lopez, Na STLMLC STLMLC [id number] 2 Common 12:03:44 [id number] [facility] 2021-10-20 Outpatient Lopez, Na STLMLC STLMLC [id number] 2 Common 12:03:05 [id number] [facility] 2021-10-20 Outpatient Lopez, Na STLMLC STLMLC [id number] 2 Common 11:43:49 [id number] [facility] 2021-10-20 Outpatient Lopez, Na STLMLC STLMLC [id number] 2 Common 11:35:56 [id number] [facility] 2021-10-20 Outpatient Lopez, Na STLMLC STLMLC [id number] 2 Common 11:18:09 [id number] [facility] 2021-10-20 Outpatient Lopez, Na STLMLC STLMLC [id number] 2 Common 11:04:54 [id number] [facility] 2021-10-20 Outpatient Lopez, Na STLMLC STLMLC [id number] 2 Common 11:04:25 [id number] [facility] 2022-04-27 2022-04-27 ambulatory STLMLC STLMLC [id number] Common 00:00:00 00:00:00 [facility] 2022-04-26 2022-04-26 ambulatory STLMLC STLMLC [id number] Common 00:00:00 00:00:00 [facility] 2022-04-20 2022-04-20 Outpatient [id number] 00:00:00 00:00:00 Visit [id number] 2022-03-30 2022-03-30 ambulatory STLMLC STLMLC [id number] Common 00:00:00 00:00:00 [facility] 2022-02-14 2022-02-14 ambulatory STLMLC STLMLC [id number] Common 00:00:00 00:00:00 [facility] 2022-01-27 2022-01-27 ambulatory STLMLC STLMLC [id number] Common 00:00:00 00:00:00 [facility] 2022-01-26 2022-01-26 ambulatory STLMLC STLMLC [id number] Common 00:00:00 00:00:00 [facility] 2022-01-18 2022-01-18 ambulatory STLMLC STLMLC [id number] Common 00:00:00 00:00:00 [facility] 2022-01-05 2022-01-05 ambulatory STLMLC STLMLC [id number] Common 00:00:00 00:00:00 [facility] 2021-12-28 2021-12-28 ambulatory STLMLC STLMLC [id number] Common 00:00:00 00:00:00 [facility] 2021-11-15 2021-11-15 ambulatory STLMLC STLMLC [id number] Common 00:00:00 00:00:00 [facility] 2021-11-11 2021-11-11 ambulatory STLMLC STLMLC [id number] Common 00:00:00 00:00:00 [facility] 2021-09-28 2021-09-28 ambulatory STLMLC STLMLC [id number] Common 00:00:00 00:00:00 [facility] 2021-08-27 2021-08-27 ambulatory STLMLC STLMLC [id number] Common 00:00:00 00:00:00 [facility] 2021-08-04 2021-08-04 ambulatory STLMLC STLMLC [id number] Common 00:00:00 00:00:00 [facility] 2021-08-02 2021-08-02 ambulatory STLMLC STLMLC [id number] Common 00:00:00 00:00:00 [facility] 2021-07-22 2021-07-22 Outpatient Vanesa Nunez HCAPM RADI LA5 [id number] [facility] 08:00:00 08:00:00 [id number] [facility] 2021-07-22 2021-07-22 Outpatient EL Vanesa Nunez HCAPM RADI LA0 [id number] [facility] 07:26:00 07:26:00 63 [facility] 2021-07-03 2021-07-[address] [facility] [id number] Univers 19:47:00 21:16:00 [id number] [facility] [id number] [place] [address] Branch 2021-07-03 2021-07-03 Emergency X [facility] ERT [id number] Univers 19:47:00 19:47:00 [facility] 2021-06-07 2021-06-07 Outpatient STLMLC STLMLC [id number] Common 00:00:00 00:00:00 [facility] 2021-05-06 2021-05-06 Outpatient STLMLC STLMLC [id number] Common 00:00:00 00:00:00 [facility] 2021-04-28 2021-04-28 Outpatient STLMLC STLMLC [id number] Common 00:00:00 00:00:00 [facility] 2021-04-27 2021-04-27 Outpatient STLMLC STLMLC [id number] Common 00:00:00 00:00:00 [facility] 2021-03-15 2021-03-15 Outpatient STLMLC STLMLC [id number] Common 00:00:00 00:00:00 [facility] 2021-01-04 2021-01-04 Outpatient STLMLC STLMLC [id number] Common 00:00:00 00:00:00 [facility] 2020-11-03 2020-11-03 Outpatient STLMLC STLMLC [id number] Common 00:00:00 00:00:00 [facility] 2020-08-03 2020-08-03 Outpatient STLMLC STLMLC [id number] Common 00:00:00 00:00:00 [facility] 2020-05-04 2020-05-04 [id number] Common 10:10:00 10:10:[address] [facility] 2020-05-01 2020-05-01 [facility] [id number] Common 09:40:00 09:40:[address] [facility] 2020-02-19 2020-02-19 [facility] [id number] Common 16:06:00 16:06:[address] [facility] [address] [facility] 2019-12-12 2019-12-12 [facility] [id number] Common 15:41:00 15:41:[address] [facility] 2019-09-16 2019-09-16 [facility] [id number] Common 14:40:00 14:40:[address] [facility] 2019-08-15 2019-08-15 [facility] [id number] Common 09:27:00 09:27:[address] [facility] 2019-08-12 2019-08-12 [facility] [id number] Common 09:00:00 09:00:[address] [facility] 2019-07-31 2019-07-31 [facility] [id number] Common 11:46:00 11:46:[address] [facility] 2019-07-29 2019-07-29 [facility] [id number] Common 09:40:00 09:40:[address] [facility] 2019-06-02 2019-06-02 [facility] [id number] Common 09:38:00 09:38:00 [facility] 2019-05-31 2019-05-31 [facility] [id number] Common 11:30:00 11:30:00 [facility] 2018-01-19 2018-01-19 [facility] [id number] Common 08:11:00 08:11:[address] [facility] 2018-01-18 2018-01-18 [facility] [id number] Common 10:15:00 10:15:[address] [facility] 2017-12-26 2017-12-26 [facility] [id number] Common 09:30:00 09:30:[address] [facility] Results Test Description Test Time Test Comments Results Result Comments Source SARS-CoV-2 (COVID-19), RT-PCR/TMA 2021-12-10 07:26:55 Test Item Value Reference Range Interpretation Comme nts SARS-CoV-2 INTERPRETATION NEGATIVE SEE NOTE S ARS-CoV-2 RNA NOT (test code = 82457) DETECTED Negative results do not preclude SARS-C [...] ORDER CODE 3509. SOURCE (test code = 05948) NASOPHARYNGEAL Note: Methodology is [employer] Real-Time RT-PC R. The expected result or refer ence range is NEGATIVE (Not D etected). For more information reg arding COVID-19 testing to incl ude clinicalinforma tion, methodology detail, intende d use, FDA authorization a ndrecommended fact sheets for carlos ents or healthcare providers, see [facility] Announcement: S ARS-CoV-2 (COVID-19) by N AAT at URL below (note,fact shee ts are provided by method given in report:https:// www.[employer]/cl inicians/client -communications/ Alternatively, see downloadable PDF fact sheet at:https://www. [employer]/COVID- 19-RT-PCR UNLES S OTHERWISE INDICATED, ALL TESTING PERFORMED ATCLINICAL PATH [facility], [facility]. [address] [place] [address] 4 [employer] COORDINATOR VOLUNTEER: PRUDENCE SOLIS M.D. CLIA NUMBER [id number] CAP ACCREDITATION N O. [id number] SARS-CoV-2 (COVID-19) by RT-PCR (HIGH RISK)2021-12-10 00:00:00 Test Item Value Reference Range Interpretation Comments SARS-CoV-2 INTERPRETATION NEGATIVE (test code = 59370) SOURCE (test code = 70909) NASOPHARYNGEAL - CT ABD PELVIS [id number] 09:50:00 [facility] 1975 Sex: F Name: SHE GUARDADO [facility] : 1975 Age/S: 46 / F [id number] Unit #: [id number] Loc: [place] [address] Phys: Vanesa Nunez MD Acct: [id number] Dis Date: Status: REG CLI PHONE #: [phone] Exam Date: 07/22/2021917 FAX #: Reason: CROHNS DISEASE, UNSPECIFIED, WITHOUT COMPLICATI E XAMS: CPT: [id number] CT ABD PELVIS W/CONT 09713 HISTORY: CROHN'S DISEASE, UNSPECIFIED, WITHOUT COMPLICATIONS TECHNIQUE: [...] GUARDADO : 1975 Age/S: 46 / F [id number] Unit #: [id number] Loc: [place] [address] Phys: Vanesa Nunez MD Acct: [id number] Dis Date: Status: REG CLI PHONE #: [phone] Exam Date: 07/22/2021917 FAX #: Reason: CROHNS DISEASE, UNSPECIFIED, WITHOUT COMPLICATI EXAMS: CPT: [id number] CT ABD PELVIS W/CONT 06757 <Continued> IMPRESSION: 1. There is milddiffuse thickening [...] (0950) [email or web address] Orig Print D/T: S: 07/22/2021 (9084) PAGE 2 Signed [id number] 08:27:00 Test Item Value Reference Range Interpretation Comments ISTAT-BUN (test code = BUNP) 8 mg/dL 8-26 N BEDSIDE [id number] 08:27:00 Test Item Value Reference Range Interpretation Comments BEDSIDE CREATININE (test code = 0.6 mg/dL 0.6-1.3 N CREATBED) SARS-COV-2 (COVID19), NAAT [ADDED]2020-10-02 00:00:00 Test Item Value Reference Range Interpretation Comments SARS-CoV-2 INTERPRETATION (test NEGATIVE code = 50088) SOURCE (test code = 23831) NOT SPECIFIED SARS-CoV-2 (COVID-19) by RT-PCR (HIGH RISK)2020-04-17 00:00:00 Test Item Value Reference Range Interpretation Comments SARS-CoV-2 INTERPRETATION (test NEGATIVE code = 68566) SOURCE (test code = 58782) NOT SPECIFIED
--- NOTE | 2022-05-01 18:55 | EDPHYS ---
Physician Documentation [facility] Name: Dori Guardado Age: 47 yrs Sex: Female : 1975 Arrival Date: 05/01/2022 Time: 17:26 Bed 20 Private MD: Noemy Lopez ED Physician Hardy Yee HPI: 05/01 17:57 This 47 yrs old Black Female presents to ER via Ambulatory with complaints of Feet sidney Swelling. 17:57 The patient presents with decreased range of motion, pain. sidney 17:58 The complaints affect the right ankle. Onset: The symptoms/episode began/occurred sidney today. Context: The problem was sustained at an unknown location, resulted from. Associated signs and symptoms: The patient has no apparent associated signs or symptoms. The patient presents with decreased range of motion, pain, that is acute. The complaints affect the right foot, dorsum of right foot. Onset: The symptoms/episode began/occurred. Modifying factors: The symptoms are alleviated by elevation of extremity, the symptoms are aggravated by movement, wearing shoes. HOSPITAL COOK: 19:09 LMP N/A - control method ll1 Historical: - Allergies: 17:40 No Known Allergies; iw - Home Meds: 17:40 amlodipine oral [Active]; aspirin 81 mg Oral chew [Active]; Famotidine Oral [Active]; iw Humira subcutaneous [Active]; mesalamine Oral [Active]; - PMHx: 17:40 Atrial Fib; bowel obstruction; Crohn's; Hypertension; iw - PSHx: 17:40 Cholecystectomy; Appendectomy; iw - Immunization history:: Adult Immunizations up to date. - Family history:: not pertinent. - Social history:: Smoking status: Patient denies any tobacco usage or history of. ROS: 17:58 Constitutional: Negative for fever, chills, and weight loss, Eyes: Negative for injury, sidney pain, redness, and discharge, ENT: Negative for injury, pain, and discharge, Neck: Negative for injury, pain, and swelling, Cardiovascular: Negative for chest pain, palpitations, and edema, Respiratory: Negative for shortness of breath, cough, wheezing, and pleuritic chest pain, Abdomen/GI: Negative for abdominal pain, nausea, vomiting, diarrhea, and constipation, Back: Negative for injury and pain, : Negative for injury, bleeding, discharge, and swelling, Skin: Negative for injury, rash, and discoloration, Neuro: Negative for headache, weakness, numbness, tingling, and seizure, Psych: Negative for depression, anxiety, suicide ideation, homicidal ideation, and hallucinations, Allergy/Immunology: Negative for hives, rash, and allergies, Endocrine: Negative for neck swelling, polydipsia, polyuria, polyphagia, and marked weight changes, Hematologic/Lymphatic: Negative for swollen nodes, abnormal bleeding, and unusual bruising. 17:58 MS/extremity: Positive for decreased range of motion, pain, swelling, tenderness, of the . Exam: 17:58 Constitutional: This is a well developed, well nourished patient who is awake, alert, sidney and in no acute distress. Head/Face: Normocephalic, atraumatic. Eyes: Pupils equal round and reactive to light, extra-ocular motions intact. Lids and lashes normal. Conjunctiva and sclera are non-icteric and not injected. Cornea within normal limits. Periorbital areas with no swelling, redness, or edema. ENT: Nares patent. No nasal discharge, no septal abnormalities noted. Tympanic membranes are normal and external auditory canals are clear. Oropharynx with no redness, swelling, or masses, exudates, or evidence of obstruction, uvula midline. Mucous membranes moist. Neck: Trachea midline, no thyromegaly or masses palpated, and no cervical lymphadenopathy. Supple, full range of motion without nuchal rigidity, or vertebral point tenderness. No Meningismus. Chest/axilla: Normal chest wall appearance and motion. Nontender with no deformity. No lesions are appreciated. Cardiovascular: Regular rate and rhythm with a normal S1 and S2. No gallops, murmurs, or rubs. Normal PMI, no JVD. No pulse deficits. Respiratory: Lungs have equal breath sounds bilaterally, clear to auscultation and percussion. No rales, rhonchi or wheezes noted. No increased work of breathing, no retractions or nasal flaring. Abdomen/GI: Soft, non-tender, with normal bowel sounds. No distension or tympany. No guarding or rebound. No evidence of tenderness throughout. Back: No spinal tenderness. No costovertebral tenderness. Full range of motion. Skin: Warm, dry with normal turgor. Normal color with no rashes, no lesions, and no evidence of cellulitis. Neuro: Awake and alert, GCS 15, oriented to person, place, time, and situation. Cranial nerves II-XII grossly intact. Motor strength 5/5 in all extremities. Sensory grossly intact. Cerebellar exam normal. Normal gait. Psych: Awake, alert, with orientation to person, place and time. Behavior, mood, and affect are within normal limits. 17:58 Musculoskeletal/extremity: ROM: intact in all extremities, full active range of motion, full passive range of motion, limited active range of motion due to pain, limited passive range of motion due to pain, in the right foot, Circulation is intact in all extremities. Pulses: noted to be 4+ in the bilateral radial, brachial, femoral, popliteal, posterior tibial and and dorsalis pedis arteries., Sensation intact. Compartment Syndrome exam of affected extremity: is normal. no numbness, no tingling, no sensation deficit, no palor, no weak pulses, Weight bearing: able to fully bear weight, DVT Exam: pain, swelling, tenderness, of the left foot, right ankle, lateral aspect of right foot, medial aspect of right foot, anterior aspect of right ankle and dorsum of right foot, Calves: are non-tender, have equal circumference. Vital Signs: 17:39 Pulse 81; Resp 16; Pulse Ox 100% on R/A; Weight 125.19 kg; Height 5 ft. 4 in. (162.56 iw cm); Pain 6/10; 18:31 BP 133 / 83; Pulse 83; Resp 17; Temp 98.0; Pulse Ox 100% on R/A; ll1 19:09 BP 115 / 68; Pulse 88; Resp 17; Pulse Ox 98% ; ll1 17:39 Body Mass Index 47.37 (125.19 kg, 162.56 cm) iw MDM: 17:42 Patient medically screened. sidney 18:02 Differential diagnosis: fracture, sprain, gout. Data reviewed: vital signs, nurses sidney notes, lab test result(s), radiologic studies, doppler. Data interpreted: ekg monitor tech: rate is 81 beats/min, rhythm is regular, Pulse oximetry: on room air is 100 %. Test interpretation: by ED physician or midlevel provider: plain radiologic studies. Counseling: I had a detailed discussion with the patient and/or guardian regarding: the historical points, exam findings, and any diagnostic results supporting the discharge/admit diagnosis, lab results, radiology results. 05/01 17:57 Order name: CBC with Diff [facility] 05/01 17:57 Order name: Comprehensive Metabolic Panel [facility] 05/01 17:57 Order name: Foot Right 3 View XRAY [facility] 05/01 17:57 Order name: Ankle Right 3 View XRAY [facility] 05/01 17:57 Order name: US Extremity Venous Unilateral Ltd [facility] 05/01 17:57 Order name: IV - Large Bore; Complete Time: 17:59 sidney Administered Medications: No medications were administered Disposition Summary: 05/01/22 18:54 Discharge Ordered Location: Home sidney Problem: new sidney Symptoms: have improved sidney Condition: Stable sidney Diagnosis - Other sprain of right foot sidney - Sprain of ankle sidney Followup: sidney - With: - When: 2 - 3 days - Reason: Recheck today's complaints, Continuance of care, Re-evaluation by your physician Followup: sidney - With: - When: 2 - 3 days - Reason: Recheck today's complaints, Continuance of care, Re-evaluation by your physician Discharge Instructions: - Discharge Summary Sheet sidney - Ankle Sprain sidney - Foot Sprain sidney - Ankle Sprain, [id number] sidney - Ankle Pain sidney - Foot Pain sidney Forms: - Medication Reconciliation Form sidney - Thank You Letter sidney - Antibiotic Education sidney - Prescription Opioid Use sidney Prescriptions: - Ibuprofen 600 mg Oral Tablet - take 1 tablet by ORAL route every 6 hours As needed take with food; 30 tablet; sidney Refills: 0, Product Selection Permitted - Tylenol-Codeine #3 300 mg-30 mg Oral - take 2 tablet by ORAL route every 6 hours; 20 tablet; Refills: 0, Product sidney Selection Permitted Signatures: Dispatcher [employer] Hardy Alfaro MD MD cha Williams, Irene, RN RN Desirae Mckee RN RN ll1 Corrections: (The following items were deleted from the chart) 18:03 18:03 Walking boot ordered. sidney [facility] 19:09 18:04 Walking boot ordered. sidney ll1
--- NOTE | 2022-05-01 18:55 | ER ---
Nurse's Notes [facility] Name: Dori Guardado Age: 47 yrs Sex: Female : 1975 Arrival Date: 05/01/2022 Time: 17:26 Bed 20 Private MD: Noemy Lopez Diagnosis: Other sprain of right foot;Sprain of ankle Presentation: 05/01 17:39 Chief complaint: Patient states: right foot swelling and pain started today, was iw recently diagnosed with COVID but tested negative yesterday. Coronavirus screen: At this time, the client does not indicate any symptoms associated with coronavirus-19. Ebola Screen: Patient negative for fever greater than or equal to 101.5 degrees Fahrenheit, and additional compatible Ebola Virus Disease symptoms Patient denies exposure to infectious person. Patient denies travel to an Ebola-affected area in the 21 days before illness onset. No symptoms or risks identified at this time. Initial Sepsis Screen: Does the patient meet any 2 criteria? No. Patient's initial sepsis screen is negative. Does the patient have a suspected source of infection? No. Patient's initial sepsis screen is negative. Risk Assessment: Do you want to hurt yourself or someone else? Patient reports no desire to harm self or others. Onset of symptoms was May 01, 2022. 17:39 Method Of Arrival: Ambulatory iw 17:39 Acuity: KASH 3 iw DETECTIVE LIEUTENANT: 19:09 LMP N/A - control method ll1 Historical: - Allergies: 17:40 No Known Allergies; iw - Home Meds: 17:40 amlodipine oral [Active]; aspirin 81 mg Oral chew [Active]; Famotidine Oral [Active]; iw Humira subcutaneous [Active]; mesalamine Oral [Active]; - PMHx: 17:40 Atrial Fib; bowel obstruction; Crohn's; Hypertension; iw - PSHx: 17:40 Cholecystectomy; Appendectomy; iw - Immunization history:: Adult Immunizations up to date. - Family history:: not pertinent. - Social history:: Smoking status: Patient denies any tobacco usage or history of. Screenin:52 Abuse screen: Denies threats or abuse. Nutritional screening: No deficits noted. ll1 Tuberculosis screening: No symptoms or risk factors identified. 18:32 Fall Risk Ambulatory Aid- Crutches/Cane/Walker (15 pts). Gait- Weak (10 pts.). Total ll1 Jane Fall Scale indicates Low Risk Score (25-44 pts). Fall prevention measures have been instituted. Side Rails Up X 2 Placed close to Nursing Station Frequent Obs/Assesments occuring Family Present and informed to notify staff if they need to leave bedside As available Patient and Family Educated on Fall Prevention Program and strategies. Assessment: 18:10 General: Appears uncomfortable, Behavior is calm, cooperative, appropriate for age. ll1 Pain: Complains of pain in right foot Quality of pain is described as aching. Neuro: No deficits noted. Cardiovascular: No deficits noted. Musculoskeletal: Circulation, motion, and sensation intact. Capillary refill < 3 seconds, Swelling present in right foot. 18:31 Reassessment: No changes from previously documented assessment. Patient and/or family ll1 updated on plan of care and expected duration. Pain level reassessed. Patient is alert, oriented x 3, equal unlabored respirations, skin warm/dry/pink. 19:09 Reassessment: No changes from previously documented assessment. Patient and/or family ll1 updated on plan of care and expected duration. Pain level reassessed. Patient is alert, oriented x 3, equal unlabored respirations, skin warm/dry/pink. Vital Signs: 17:39 Pulse 81; Resp 16; Pulse Ox 100% on R/A; Weight 125.19 kg; Height 5 ft. 4 in. (162.56 iw cm); Pain 6/10; 18:31 BP 133 / 83; Pulse 83; Resp 17; Temp 98.0; Pulse Ox 100% on R/A; ll1 19:09 BP 115 / 68; Pulse 88; Resp 17; Pulse Ox 98% ; ll1 17:39 Body Mass Index 47.37 (125.19 kg, 162.56 cm) iw ED Course: 17:26 Patient arrived in ED. as 17:26 Noemy Lopez MD is Private Physician. as 17:40 Triage completed. iw 17:41 Arm band placed on. iw 17:42 Hardy Yee MD is Attending Physician. sidney 17:42 Staci Tran RN is Primary Nurse. iw 17:52 Patient placed in an exam room, on a stretcher. ll1 18:10 Missed attempt(s): 22 gauge in left antecubital area. Bleeding controlled, band aid ll1 applied, catheter tip intact. 18:32 US Extremity Venous Unilateral Ltd In Process Unspecified. EDMS 18:32 Patient has correct armband on for positive identification. Bed in low position. Call ll1 light in reach. Side rails up X 1. Pulse ox on. NIBP on. 18:32 No provider procedures requiring assistance completed. ll1 18:35 Initial lab(s) drawn, by label sewer, sent to lab. ll1 18:54 Noemy Lopez MD is Referral Physician. sidney 18:54 Rodri Zavala MD is Referral Physician. [facility] 19:08 Primary Nurse role handed off by Staci Tran, RN mw2 19:10 Patient did not have IV access during this emergency room visit. ll1 19:35 Foot Right 3 View XRAY In Process Unspecified. EDMS 19:35 Ankle Right 3 View XRAY In Process Unspecified. EDMS Administered Medications: No medications were administered Medication: 17:52 VIS not applicable for this client. ll1 Outcome: 18:54 Discharge ordered by . [facility] 19:09 Discharged to home ambulatory. ll1 19:09 Condition: stable 19:09 Discharge instructions given to patient, Instructed on discharge instructions, follow up and referral plans. no drinking with medication, no driving heavy equipment, medication usage, Demonstrated understanding of instructions, follow-up care, medications, Prescriptions given X 2. 19:10 Patient left the ED. ll1 Signatures: Dispatcher [employer] EDMS Hardy Yee MD MD cha Martinez, Amelia as Staci Tran, Abrahan Garcia RN mw2 Desirae Mckee RN RN ll1 Corrections: (The following items were deleted from the chart) 18:48 18:31 BP 133 / 83; Pulse 83bpm; Resp 17bpm; Pulse Ox 100% RA; ll1 ll1
[2022-05-01 19:00] LABS: Absolute Lymphocytes (CBC) 3.4 K/uL (0.7-4.9); Hematocrit 35.5 % (36.0-45.0); MCV 77.6 fL (80-100); MPV 8.3 fL (7.6-11.3); RBC Red Blood Cell Count 4.58 M/uL (3.86-4.86)
[2022-05-01 19:09] LABS: Albumin 3.4 g/dL (3.4-5.0); Bilirubin Total 0.3 mg/dL (0.2-1.0); Potassium 4.1 mmol/L (3.5-5.1)
--- NOTE | 2022-05-01 19:13 | RAD REPORT ---
EXAM DESCRIPTION: USExtremity Venous Uni Ltd05/01/2022 6:31 pm CLINICAL HISTORY: Right leg pain COMPARISON: II 1000 X FINDINGS: Right common femoral, superficial femoral and popliteal veins are compressible and demonst rate augmentation. Doppler demonstrates good flow. Limited evaluation of the right posterior tibial vein Grayscale, color and spectral analysis performed on all vessels IMPRESSION: No evidence of deep venous thrombosis involving the right lower extremity.
--- NOTE | 2022-05-01 19:38 | RAD REPORT ---
EXAM DESCRIPTION: RAD - Ankle Right 3 View - 05/01/2022 7:34 pm CLINICAL HISTORY: Right ankle pain FINDINGS: No fracture or dislocation is seen. Soft tissue swelling
--- NOTE | 2022-05-01 19:39 | RAD REPORT ---
EXAM DESCRIPTION: RAD - Foot Right 3 View - 05/01/2022 7:34 pm CLINICAL HISTORY: Right foot pain FINDINGS: No fracture or dislocation is seen Soft tissue swelling
[2022-05-01 20:13] VITALS: TEMP 98
[2022-05-01 20:15] VITALS: BP 115/68; O2SAT 98
== END 2022-05-01 19:10 | disposition home or self-care (01) ==
LOC: ER 17:25
DX: S93.401A Sprain of unspecified ligament of right ankle, initial encounter (principal); S93.691A Other sprain of right foot, initial encounter; I10 Essential (primary) hypertension; I48.91 Unspecified atrial fibrillation; Z79.82 Long term (current) use of aspirin
CPT/HCPCS: 36415; 80053; 85025; 93971; 99284

== ENCOUNTER 2022-05-26 07:34 | Emergency (ER) | payer OTHER ==
--- OUTSIDE RECORDS SUMMARY | 2022-05-26 07:38 | XMS REPORT | Continuity of Care Document ---
:1975 Author Organization [facility] t Address [address] [place] [address] Care Team Providers Name Role Phone Noemy [...] active ity of problems problems [facility] Allergies, Adverse Reactions, Alerts Allergy Allergy Status Severity Reaction(s) Onset Inactive Treating Comm ents Source Name Type Date Date Clinician No Known DA Active U 2020-09 [facility]ie 0-28 [facility] 00:[facility]: d 00 [facility] No Known DA Active U 2020-09 [facility] Allergie 0-28 [facility] 00:00: d 00 [facility] NO KNOWN Drug Active Univers ALLERGIE Class ity of S [facility] Social History Social Habit Start Date Stop Date Quantity Comments Source Sex Assigned At [birth year] [facility] 00:00:00 00:00:00 [facility] Smoking Status Start Date Stop Date Source Unknown if ever smoked [facility] Medications Ordered Filled Start [...] 01-21 00:00: 00 Dose 2-0 No Unknown 4 00:00: 00 Dose 2-0 No Unknown 4 00:00: 00 Dose 2-0 No Unknown 01-21 00:00: 00 Dose 2-0 No Unknown 4 00:00: 00 Dose 2-0 No Unknown 4 00:00: 00 Dose 2-0 No Unknown 01-21 00:00: 00 Dose 2-0 No Unknown 01-21 00:00: 00 Dose 2-0 No Unknown 4 [...] No Univers medications 0-09 ity of 19:54: [address] metoprolol 2020-0 No 1mg tartrate 50 [...] Sodium 05-04 [facility] 00:00: - [facility] 00 [facility] Ergocalcife Ergocalcife 2019-1 2020- No Na Lopez 1 capsule Common rol rol 1-18 11-10 [facility] 00:00: 00:00 - [facility] 00 :00 [facility] Paxil Paxil 0 Yes Na Lopez 1 tablet Comm on 12-26 in the Spirit 00:00: morning - [facility] 00 [facility] Humira Humira Yes Na Lopez not Common defined [facility] Aspirin Aspirin Yes Na Lopez not Common defined [facility] BusPIRone BusPIRone Yes Na Lopez 1 tablet Common HCl HCl [facility] Metoprolol Metoprolol Yes Na Lopez 1 tablet Common [facility]art[facility] Vital Signs Vital Name Observation Time Observation Value Comments Source Systolic blood 2021-07-04 00:50:00 180 mm[Hg] [facility] Diastolic blood 2021-07-04 00:50:00 110 mm[Hg] [facility]ive [facility] Heart rate 2021-07-04 00:50:00 79 /min [facility] Body temperature 2021-07-04 00:50:00 36.67 Gem [facility] Respiratory rate 2021-07-04 00:50:00 18 /min [facility] Body weight 2021-07-04 00:50:00 121.564 kg [facility] Oxygen saturation in 2021-07-04 00:50:00 99 /min [facility] Arterial blood by [facility] Pulse oximetry Branch BP Systolic 2022-01-21 14:32:00 BP Diastolic 2022-01-21 14:32:00 Weight Measured 2022-01-21 14:32:00 276.00 pounds Height Measured 2022-01-21 14:32:00 63.00 inches Body Temperature 2022-01-21 14:32:00 Heart Rate 2022-01-21 14:32:00 Respiratory Rate 2022-01-21 14:32:00 Procedures Procedure Date / Time Performed Performing Clinician Sour e XR CHEST 1 VW 2021-07-04 01:14:37 Raissa Tran [facility] NOTICE OF PRIVACY 2021-07-04 00:45:31 Doctor Unassigned, No [facility] PRACTICES Name [facility] CONSENT/REFUSAL FOR 2021-07-04 00:45:10 [facility] Name [facility] TREATMENT Plan of Care Planned Activity Planned Date Details Comments Source Goal Plan of Care Note [code = 99715-5] Goal Plan of Care Note [code = 56284-1] Goal Plan of Care Note [code = 70963-1] Goal Plan of Care Note [code = 22993-1] Goal Plan of Care Note [code = 17858-8] Goal Plan of Care Note [code = 22082-7] Goal Plan of Care Note [code = 32543-1] Encounters Start End Encounter Admission Attending Care Care Encounter Source Date/Time Date/Time Type Type Clinicians Facility Department ID [facility]22-04-13 [id number] Common 15:29:00 [id number] [facility] 2022-04-07 [facility] [id number] 2 Common 16:07:00 [id number] [facility] 2022-01-04 Outpatient Lopez, Na STLMLC STLMLC [id number] Common 09:31:01 [id number] [facility] 2021-10-20 Outpatient Lopez, Na STLMLC STLMLC [id number] 2 Common 14:09:55 [id number] [facility] 2021-10-20 Outpatient Lopez, Na STLMLC STLMLC [id number] 2 Common 13:47:22 [id number] [facility] 2021-10-20 Outpatient Lopez, Na STLMLC STLMLC [id number] 2 Common 12:29:04 [id number] [facility] 2021-10-20 Outpatient Lopez, Na STLMLC STLMLC [id number] 2 Common 12:03:44 [id number] [facility] 2021-10-20 Outpatient Lopez, Na STLMLC STLMLC [id number] Common 12:03:05 [id number] [facility] 2021-10-20 Outpatient Lopez, Na STLMLC STLMLC [id number] 2 Common 11:43:49 [id number] [facility] 2021-10-20 Outpatient Lopez, Na STLMLC STLMLC [id number] 2 Common 11:35:56 [id number] [facility] 2021-10-20 Outpatient Lopez, Na STLMLC STLMLC [id number] 2 Common 11:18:09 [id number] [facility] 2021-10-20 Outpatient Lopez, Na STLMLC STLMLC [id number] 2 Common 11:04:54 [id number] [facility] 2021-10-20 Outpatient Lopez, Na STLMLC STLMLC [id number] 2 Common 11:04:25 [id number] [facility] 2022-05-16 2022-05-16 ambulatory STLMLC STLMLC [id number] Common 00:00:00 00:00:00 [facility] 2022-05-16 2022-05-16 ambulatory STLMLC STLMLC [id number] Common 00:00:00 00:00:00 [facility] 2022-04-27 2022-04-27 ambulatory STLMLC STLMLC [id number] Common 00:00:00 00:00:00 [facility] 2022-04-26 2022-04-26 ambulatory STLMLC STLMLC [id number] Common 00:00:00 00:00:00 [facility] 2022-04-26 2022-04-26 ambulatory STLMLC STLMLC [id number] Common 00:00:00 00:00:00 [facility] 2022-04-20 2022-04-20 Outpatient [id number] 00:00:00 00:00:00 Visit [id number] 2022-03-30 2022-03-30 ambulatory STLMLC STLMLC [id number] Common 00:00:00 00:00:00 [facility] 2022-02-14 2022-02-14 ambulatory STLMLC STLMLC [id number] Common 00:00:00 00:00:00 [facility] 2022-01-27 2022-01-27 ambulatory STLMLC STLMLC [id number] Common 00:00:00 00:00:00 [facility] 2022-01-26 2022-01-26 ambulatory STLMLC STLMLC [id number] Common 00:00:00 00:00:00 [facility] 2022-01-18 2022-01-18 ambulatory STLMLC STLMLC [id number] Common 00:00:00 00:00:00 [facility] 2022-01-05 2022-01-05 ambulatory STLMLC STLMLC [id number] Common 00:00:00 00:00:00 [facility] 2021-12-28 2021-12-28 ambulatory STLMLC STLMLC [id number] Common 00:00:00 00:00:00 [facility] 2021-11-15 2021-11-15 ambulatory STLMLC STLMLC [id number] Common 00:00:00 00:00:00 [facility] 2021-11-11 2021-11-11 ambulatory STLMLC STLMLC [id number] Common 00:00:00 00:00:00 [facility] 2021-09-28 2021-09-28 ambulatory STLMLC STLMLC [id number] Common 00:00:00 00:00:00 [facility] 2021-08-27 2021-08-27 ambulatory STLMLC STLMLC [id number] Common 00:00:00 00:00:00 [facility] 2021-08-04 2021-08-04 ambulatory STLMLC STLMLC [id number] Common 00:00:00 00:00:00 [facility] 2021-08-02 2021-08-02 ambulatory STLMLC STLMLC [id number] Common 00:00:00 00:00:00 [facility] 2021-07-22 2021-07-22 Outpatient Vanesa Nunez HCAPM RADI LA5 [id number] [facility] 08:00:00 08:00:00 [id number] [facility] 2021-07-22 2021-07-22 Outpatient Vanesa Nunez HCAPM RADI LA0 [id number] [facility] 07:26:00 07:26:00 63 [facility] 2021-07-03 2021-07-03 Emergency Marc, [facility] [id number] Univers 19:47:00 21:16:00 [id number] [id number] [place] [id number] Branch 2021-07-03 2021-07-03 Emergency X [facility] ERT [id number] Univers 19:47:00 19:47:00 ity [facility] 2021-06-07 2021-06-07 Outpatient STLMLC STLMLC [id number] Common 00:00:00 00:00:00 [facility] 2021-05-06 2021-05-06 Outpatient STLMLC STLMLC [id number] Common 00:00:00 00:00:00 [facility] 2021-04-28 2021-04-28 Outpatient STLMLC STLMLC [id number] Common 00:00:00 00:00:00 [facility] 2021-04-27 2021-04-27 Outpatient STLMLC STLMLC [id number] Common 00:00:00 00:00:00 [facility] 2021-03-15 2021-03-15 Outpatient STLMLC STLMLC [id number] Common 00:00:00 00:00:00 [facility] 2021-01-04 2021-01-04 Outpatient STLMLC STLMLC [id number] Common 00:00:00 00:00:00 [facility] 2020-11-03 2020-11-03 Outpatient STLMLC STLMLC [id number] Common 00:00:00 00:00:00 [facility] 2020-08-03 2020-08-03 Outpatient STLMLC STLMLC [id number] Common 00:00:00 00:00:00 [facility] 2020-05-04 2020-05-04 [facility] [id number] Common 10:10:00 10:10:[address] [facility] 2020-05-01 2020-05-01 [facility] [id number] Common 09:40:00 09:40:00 [address] [facility] 2020-02-19 2020-02-19 [facility] [id number] Common 16:06:00 16:06:[address] [facility] [address] [facility] 2019-12-12 2019-12-12 [facility] [id number] Common 15:41:00 15:41:[address] [facility] 2019-09-16 2019-09-16 [facility] [id number] Common 14:40:00 14:40:[address] [facility] 2019-08-15 2019-08-15 [facility] [id number] Common 09:27:00 09:27:[address] [facility] 2019-08-12 2019-08-12 [facility] [id number] Common 09:00:00 09:00:[address] [facility] 2019-07-31 2019-07-31 [facility] [id number] Common 11:46:00 11:46:[address] [facility] 2019-07-29 2019-07-29 [facility] [id number] Common 09:40:00 09:40:[address] [facility] 2019-06-02 2019-06-02 [facility] [id number] Common 09:38:00 09:38:00 [facility] 2019-05-31 2019-05-31 [facility] [id number] Common 11:30:00 11:30:00 [facility] 2018-01-19 2018-01-19 [facility] [id number] Common 08:11:00 08:11:[address] [facility] 2018-01-18 2018-01-18 [facility] [id number] Common 10:15:00 10:15:[address] [facility] 2017-12-26 2017-12-26 [facility] [id number] Common 09:30:00 09:30:[address] [facility] Results Test Description Test Time Test Comments Results Result Comments Source SARS-CoV-2 (COVID-19), RT-PCR/TMA 2021-12-10 07:26:55 Test Item Value Reference Range Interpretation Comme nts SARS-CoV-2 INTERPRETATION NEGATIVE SEE NOTE S ARS-CoV-2 RNA NOT (test code = 71547) DETECTED Negative results do not preclude SARS-C [...] ORDER CODE 3509. SOURCE (test code = 39639) NASOPHARYNGEAL Note: Methodology is Ro Charito Real-Time [...] are provided by method given in report:https:// [email or web address]/cl [email or web address]/client -communications/ Alternatively, see downloadable PDF fact sheet at:[email or web address]. [email or web address]/COVID- 19-RT-PCR UNLES S OTHERWISE INDICATED, ALL TESTING PERFORMED ATCLINICAL PATH [facility], I [place]. [address] [place] [address] 1940 4 CARRY OUT CLERK: PRUDENCE SOLIS M.D. CLIA NUMBER [id number] CAP ACCREDITATION N O. [id number] SARS-CoV-2 (COVID-19) by RT-PCR (HIGH RISK)2021-12-10 00:00:00 Test Item Value Reference Range Interpretation Comments SARS-CoV-2 INTERPRETATION NEGATIVE (test code = 61170) SOURCE (test code = 11734) NASOPHARYNGEAL - CT ABD PELVIS [id number] 09:50:00 [facility] 1975 Sex: F Name: SHE GUARDADO [facility] : 1975 Age/S: 46 / F [id number] [place] Unit #: [id number] Loc: [place] [address] Phys: Vanesa Nuenz MD Acct: [id number] Dis Date: Status: REG CLI PHONE #: [phone] Exam Date: 07/22/2021917 FAX #: Reason: CROHNS DISEASE, UNSPECIFIED, WITHOUT COMPLICATI EXAMS: CPT: [id number] CT ABD PELVIS W/CONT 40661 HISTORY: CROHN'S DISEASE, UNSPECIFIED, WITHOUT COMPLICATIONS TECHNIQUE: Helical imaging of the abdomen and pelvis is performed with intravenous contrast. Approximately 100 mL of intravenous contrast was administered. No oral contrast is administered. Sa gittal and coronal reconstructions reviewed. CT DLP dose: [...] visible. No hydronephrosis is seen. No renal calculior perinephric stranding. The urinary bladder is unremarkable. [...] patent. The portal vein is patent. No evidenceof ascites. Abdominal wall is intact. No significant bone lesions. PAGE 1 Signed Report (CONTINUED)Name: SHE GUARDADO : 1975 Age/S: 46 / F [id number] [place] Unit #: [id number] Loc: [place] [address] Phys: Vanesa Nunez MD Acct: [id number] Dis Date: Status: REG CLI PHONE #: [phone] Exam Date: 07/22/2021 0918 FAX #: Reason: CROHNS DISEASE, UNSPECIFIED, WITHOUT COMPLICATI EXAMS: CPT: [id number] CT ABD PELVIS W/CONT 10154 (Continued) IMPRESSION: 1. There is mild diffusethickening of the transverse colon and splenic flexure [...] (0950) [id number] Orig Print D/T: S: 07/22/2021 (6547) PAGE 2 Signed [id number] 08:27:00 Test Item Value Reference Range Interpretation Comments ISTAT-BUN (test code = BUNP) 8 mg/dL 8-26 N BEDSIDE [id number] 08:27:00 Test Item Value Reference Range Interpretation Comments BEDSIDE CREATININE (test code = 0.6 mg/dL 0.6-1.3 N CREATBED) SARS-COV-2 (COVID19), NAAT [ADDED]2020-10-02 00:00:00 Test Item Value Reference Range Interpretation Comments SARS-CoV-2 INTERPRETATION (test NEGATIVE code = 41407) SOURCE (test code = 37715) NOT SPECIFIED SARS-CoV-2 (COVID-19) by RT-PCR (HIGH RISK)2020-04-17 00:00:00 Test Item Value Reference Range Interpretation Comments SARS-CoV-2 INTERPRETATION (test NEGATIVE code = 16320) SOURCE (test code = 28278) NOT SPECIFIED
[2022-05-26] MEDS ORDERED: MAGNES/ALUMIN/SIMET 30ML UCUP ONE (08:57)
[2022-05-26] MEDS ORDERED: LIDOCAINE VISCOUS 2% SOLN 15 ML UDC ONE (08:58)
[2022-05-26] MEDS ORDERED: ONDANSETRON 4 MG (ODT) TAB ONE (08:58)
[2022-05-26 09:16] LABS: Albumin 3.4 g/dL (3.4-5.0); Bilirubin Total 0.7 mg/dL (0.2-1.0); Potassium 3.8 mmol/L (3.5-5.1); Protein, Total 8.4 g/dL (6.4-8.2)
[2022-05-26 09:23] LABS: Absolute Lymphocytes (CBC) 2.1 K/uL (0.7-4.9); Hematocrit 38.7 % (36.0-45.0); MCV 79.3 fL (80-100); MPV 8.7 fL (7.6-11.3); RBC Red Blood Cell Count 4.88 M/uL (3.86-4.86)
--- NOTE | 2022-05-26 09:36 | EDPHYS ---
Physician Documentation [facility] Name: Dori Guardado Age: 47 yrs Sex: Female : 1975 Arrival Date: 05/26/2022 Time: 07:36 Bed 20 Private MD: Noemy Lopez ED Physician Camilo aMrie HPI: 05/26 08:41 This 47 yrs old Black Female presents to ER via Ambulatory with complaints of Abdominal ms3 Pain, Nausea, Chills. 08:41 47-year-old female with past medical history of atrial fibrillation, bowel obstruction, ms3 Crohn's disease, hypertension presents for abdominal cramping and diarrhea that began yesterday. Patient states her discomfort is a 6/10 and described as cramping and burning. Patient states she took her famotidine and omeprazole without relief. Patient denies alleviating or inciting factors. Patient states this discomfort is different from her Crohn's.. Historical: - Allergies: 07:47 No Known Allergies; ph - Home Meds: 07:47 amlodipine oral [Active]; aspirin 81 mg Oral chew [Active]; Famotidine Oral [Active]; ph Humira subcutaneous [Active]; mesalamine Oral [Active]; - PMHx: 07:47 Atrial Fib; bowel obstruction; Crohn's; Hypertension; ph - PSHx: 07:47 Appendectomy; Cholecystectomy; ph - Immunization history:: Adult Immunizations unknown. - Social history:: Smoking status: Patient denies any tobacco usage or history of. ROS: 08:41 Constitutional: Negative for fever, and chills. Neck: Negative for injury, pain, and ms3 swelling, Cardiovascular: Negative for chest pain, and palpitations. Respiratory: Negative for shortness of breath, cough, wheezing, and pleuritic chest pain. 08:41 Abdomen/GI: Positive for abdominal pain, nausea, diarrhea. 08:41 All other systems are negative. Exam: 08:41 Constitutional: This is a well developed, well nourished patient who is awake, alert, ms3 and in no acute distress. Head/Face: Normocephalic, atraumatic. Neck: Trachea midline, no cervical lymphadenopathy. Supple, full range of motion without nuchal rigidity, or vertebral point tenderness. No Meningismus. Chest/axilla: Normal chest wall appearance and motion. Nontender with no deformity. Cardiovascular: Regular rate and rhythm with a normal S1 and S2. No gallops, murmurs, or rubs. Normal PMI, no JVD. No pulse deficits. Respiratory: Lungs have equal breath sounds bilaterally, clear to auscultation and percussion. No rales, rhonchi or wheezes noted. No increased work of breathing, no retractions or nasal flaring. Abdomen/GI: Soft, non-tender, with normal bowel sounds. No distension or tympany. No guarding or rebound. No evidence of tenderness throughout. Skin: Warm, dry with normal turgor. Normal color with no rashes, no lesions, and no evidence of cellulitis. MS/ Extremity: Pulses equal, no cyanosis. Neurovascular intact. Full, normal range of motion. Psych: Awake, alert, with orientation to person, place and time. Behavior, mood, and affect are within normal limits. Vital Signs: 07:45 BP 128 / 91; Pulse 71; Resp 18; Temp 98.2; Pulse Ox 100% on R/A; Weight 125.19 kg; ph Height 5 ft. 3 in. (160.02 cm); Pain 6/10; 09:37 BP 118 / 78; Pulse 68; Resp 17; Pulse Ox 100% ; Pain 0/10; jh6 07:45 Body Mass Index 48.89 (125.19 kg, 160.02 cm) ph MDM: 08:05 Patient medically screened. ms3 08:41 ED course: Discussed obtaining CT scan with patient. Through shared decision making CT ms3 would not be obtained at this time as patient states she has had multiple CTs of her abdomen pelvis with her diagnosis of Crohn's. On patient's exam her abdomen is not acute, there is no tenderness palpation, rebound, or guarding.. 09:37 Differential diagnosis: Nonspecific abd pain, gastritis, viral gastroenteritis. Data ms3 reviewed: vital signs, nurses notes, lab test result(s), and as a result, I will discharge patient. Counseling: I had a detailed discussion with the patient and/or guardian regarding: the historical points, exam findings, and any diagnostic results supporting the discharge/admit diagnosis, lab results, the need for outpatient follow up, to return to the emergency department if symptoms worsen or persist or if there are any questions or concerns that arise at home. ED course: Patient states her symptoms have improved at this time. Patient states her work called her and informed her of another coworker that is out with similar symptoms. Discussed labs with patient. Patient to follow-up with her primary care physician in 2 to 3 days. Patient's abdomen remains benign, patient is tolerating p.o., no apparent distress, nontoxic appearing. Return precautions discussed include worsening symptoms, or any other concerns.. 05/26 08:05 Order name: CBC with Diff; Complete Time: 09:32 ms3 05/26 08:05 Order name: CMP; Complete Time: 09:32 ms3 05/26 08:05 Order name: Lipase; Complete Time: :32 ms3 05/26 08:05 Order name: IV Saline Lock; Complete Time: 08:31 ms3 05/26 08:05 Order name: Labs collected and sent; Complete Time: 08:31 ms3 Administered Medications: 08:58 Drug: GI Cocktail without - (Maalox Suspension 30 ml, Lidocaine Liquid 2 % 15 jh6 ml) Route: PO; 09:37 Follow up: Response: Pain is decreased jh6 08:59 Not Given (Duplicate Order): Zofran (Ondansetron) 4 mg IVP once; over 2 minutes jh6 08:59 Drug: Ondansetron 4 mg Route: PO; jh6 09:36 Follow up: Response: Pain is decreased jh6 Disposition Summary: 05/26/22 09:36 Discharge Ordered Location: Home ms3 Condition: Stable ms3 Diagnosis - Abdominal pain, unspecified ms3 - Nausea ms3 - Diarrhea, unspecified ms3 Followup: ms3 - With: Noemy Lopez MD - When: 2 - 3 days - Reason: Recheck today's complaints, Re-evaluation by your physician Discharge Instructions: - Discharge Summary Sheet ms3 - Abdominal Pain, Adult ms3 - Nausea, Adult ms3 Forms: - Medication Reconciliation Form ms3 - Thank You Letter ms3 - Antibiotic Education ms3 - Prescription Opioid Use ms3 Prescriptions: - ondansetron 4 mg Oral tablet,disintegrating - place 1 tablet by TRANSLINGUAL route 4 times per day; 15 tablet; Refills: 0, ms3 Product Selection Permitted Signatures: Dispatcher MedHo Nathalie Torres RN RN ph MarieCamilo marie DO DO ms3 Ngozi Javier, RN RN jh6
--- NOTE | 2022-05-26 09:36 | ER ---
Nurse's Notes [facility] Name: Dori Guardado Age: 47 yrs Sex: Female : 1975 Arrival Date: 05/26/2022 Time: 07:36 Bed 20 Private MD: Noemy Lopez Diagnosis: Abdominal pain, unspecified;Nausea;Diarrhea, unspecified Presentation: 05/26 07:45 Chief complaint: Patient states: Upper abdominal pain, nausea, and diarrhea that ph started yesterday, hx of Crohns but states that this feels different, denies fever. Coronavirus screen: Vaccine status: Patient reports being unvaccinated. Patient reports having had a previously documented Covid positive illness. approx 4 weeks ago. Ebola Screen: No symptoms or risks identified at this time. Initial Sepsis Screen: Does the patient meet any 2 criteria? No. Patient's initial sepsis screen is negative. Does the patient have a suspected source of infection? No. Patient's initial sepsis screen is negative. Risk Assessment: Do you want to hurt yourself or someone else? Patient reports no desire to harm self or others. Onset of symptoms was May 26, 2022. 07:45 Method Of Arrival: Ambulatory 07:45 Acuity: KASH 3 ph Triage Assessment: 07:48 General: Appears in no apparent distress. comfortable, well groomed, Behavior is calm, ph cooperative, appropriate for age, Denies fever. Pain: Complains of pain in right upper quadrant and left upper quadrant. GI: Reports upper abdominal pain, diarrhea, nausea, Patient currently denies bloody stool. Historical: - Allergies: 07:47 No Known Allergies; ph - Home Meds: 07:47 amlodipine oral [Active]; aspirin 81 mg Oral chew [Active]; Famotidine Oral [Active]; ph Humira subcutaneous [Active]; mesalamine Oral [Active]; - PMHx: 07:47 Atrial Fib; bowel obstruction; Crohn's; Hypertension; ph - PSHx: 07:47 Appendectomy; Cholecystectomy; ph - Immunization history:: Adult Immunizations unknown. - Social history:: Smoking status: Patient denies any tobacco usage or history of. Screenin:00 Abuse screen: Denies threats or abuse. Denies injuries from another. [facility] 08:00 Nutritional screening: No deficits noted. Tuberculosis screening: No symptoms or risk jh6 factors identified. Fall Risk None identified. Assessment: 08:00 General: Appears in no apparent distress. Behavior is calm, cooperative. jh6 08:00 Pain: Complains of pain in epigastric area Pain radiates to mid-sternal area Pain jh6 currently is 4 out of 10 on a pain scale. Quality of pain is described as burning, Pain began gradually, Is continuous. GI: Abdomen is round obese, Bowel sounds present X 4 quads. hyperactive in right upper quadrant, left upper quadrant and left lower quadrant Abd is soft and non tender X 4 quads. 09:15 Reassessment: Patient and/or family updated on plan of care and expected duration. Pain jh6 level reassessed. Patient is alert, oriented x 3, equal unlabored respirations, skin warm/dry/pink. Patient denies pain at this time. Patient states feeling better. Patient states symptoms have improved. Vital Signs: 07:45 BP 128 / 91; Pulse 71; Resp 18; Temp 98.2; Pulse Ox 100% on R/A; Weight 125.19 kg; ph Height 5 ft. 3 in. (160.02 cm); Pain 6/10; 09:37 BP 118 / 78; Pulse 68; Resp 17; Pulse Ox 100% ; Pain 0/10; jh6 07:45 Body Mass Index 48.89 (125.19 kg, 160.02 cm) ph ED Course: 07:36 Patient arrived in ED. rg4 07:36 Noemy Lopez MD is Private Physician. rg4 07:45 Camilo Marie DO is Attending Physician. ms3 07:47 Triage completed. ph 07:48 Arm band placed on Patient placed in an exam room, on a stretcher. ph 07:54 Ngozi Javier, LEONA is Primary Nurse. jh6 08:10 Bed in low position. Call light in reach. Side rails up X 1. jh6 08:30 Initial lab(s) drawn, by me, by ED staff, sent to lab. jh6 09:00 No provider procedures requiring assistance completed. jh6 09:35 Noemy Lopez MD is Referral Physician. ms3 09:52 Patient did not have IV access during this emergency room visit. jh6 Administered Medications: 08:58 Drug: GI Cocktail without - (Maalox Suspension 30 ml, Lidocaine Liquid 2 % 15 jh6 ml) Route: PO; 09:37 Follow up: Response: Pain is decreased [facility] 08:59 Not Given (Duplicate Order): Zofran (Ondansetron) 4 mg IVP once; over 2 minutes [facility] 08:59 Drug: Ondansetron 4 mg Route: PO; 6 09:36 Follow up: Response: Pain is decreased [facility] Medication: 09:37 VIS not applicable for this client. [facility] Outcome: 09:36 Discharge ordered by ms3 09:51 Discharged to home ambulatory. [facility] 09:51 Condition: good 09:51 Discharge instructions given to 09:52 Patient left the ED. [facility] Signatures: Nathalie Singleton, RN RN Bertha Liu 4 Camilo Marie DO DO ms3 Ngozi Javier, RN RN 6
[2022-05-26 09:58] VITALS: TEMP 98.2; O2SAT 100
[2022-05-26 10:00] VITALS: BP 118/78
== END 2022-05-26 09:52 | disposition home or self-care (01) ==
LOC: ER 07:34
DX: R10.9 Unspecified abdominal pain (principal); R19.7 Diarrhea, unspecified; R11.0 Nausea; I10 Essential (primary) hypertension; I48.91 Unspecified atrial fibrillation; Z79.82 Long term (current) use of aspirin
CPT/HCPCS: 85025; 36415; 83690; 80053; 99283; Q0162

== ENCOUNTER 2022-05-28 18:32 | Emergency (ER) | payer OTHER ==
--- OUTSIDE RECORDS SUMMARY | 2022-05-28 18:37 | XMS REPORT | Continuity of Care Document ---
:1975 Author Organization [facility] t Address [address] [place] [address] Care Team Providers Name Role Phone Rito Rafaela FU Primary Care Physician [phone] Noemy Lopez Attending Clinician Unavailable Vanesa Nunez [...] rs active active ity of problems problems [facility] Allergies, Adverse Reactions, Alerts Allergy Allergy Status Severity Reaction(s) Onset Inactive Treating Comm ents Source Name Type Date Date Clinician No Known DA Active U 2020-09 [facility] Allergie 0-28 [facility] 00:[facility]: d 00 [facility] No Known DA Active U 2020-09 [facility] Allergie 0-28 [facility] 00:00: d 00 [facility] NO KNOWN Drug Active Univers ALLERGIE Class ity of S [facility] Social History Social Habit Start Date Stop Date Quantity Comments Source Sex Assigned At [birth year] [facility] 00:00:00 00:00:00 [facility] Smoking Status Start Date Stop Date Source Unknown if ever smoked [facility] Medications Ordered Filled Start Stop Current Ordering Indication Dosage Frequency Signature Comments Components Source Medication Medication Date Date Medication? Clinician (SIG) Name Name fluconazole 2021-0 No 1mg 150 mg 7-27 tablet 00:00: 00 nystatin 2021-0 No 10unit/ 100,000 7-27 mL unit/mL 00:00: oral 00 suspension Dose 2021-0 No Unknown 727 00:00: 00 Dose 2022-0 No Unknown 7 00:00: 00 Dose 2-0 No Unknown 7 00:00: 00 Sudafed 12 2021-0 No 1mg Hour 120 mg 6-17 tablet,exte 00:00: nded 00 release Dose 2-0 No Unknown 4-29 00:00: 00 [...] 4-29 00:00: 00 Dose 2022-0 No Unknown 4 [...] mcg/actuati 00:00: on aerosol 00 inhaler azithromyci 2-0 No mg n 250 mg 01-21 tablet 00:00: 00 Dose 2-0 No Unknown 4 00:00: 00 Dose 2022-0 No Unknown 4 00:00: 00 Dose 2022-0 No Unknown 01-21 00:00: 00 Dose 2022-0 No Unknown 4- [...] No Univers medications 0-09 ity of 19:54: [address] metoprolol 2020-0 No 1mg tartrate 50 [...] Sodium 05-04 [facility] 00:00: - [facility] 00 [facility] Ergocalcife Ergocalcife 2019-1 2020- No Na Lopez 1 capsule Common rol rol 1-18 11-10 [facility] 00:00: 00:00 - [facility] 00 :00 [facility] Paxil Paxil 0 Yes Na Lopez 1 tablet Comm on 12-26 in the [facility] 00:00: morning - [facility] 00 [facility] Humira Humira Yes Na Lopez not Common defined [facility] Aspirin Aspirin Yes Na Lopez not Common defined [facility] BusPIRone BusPIRone Yes Na Lopez 1 tablet Common HCl HCl [facility] Metoprolol Metoprolol Yes Na Lopez 1 tablet Common Tartrate [facility] with [facility] Vital Signs Vital Name Observation Time Observation Value Comments Source Systolic blood 2021-07-04 00:50:00 180 mm[Hg] [facility] Diastolic blood 2021-07-04 00:50:00 110 mm[Hg] [facility] Heart rate 2021-07-04 00:50:00 79 /min [facility] Body temperature 2021-07-04 00:50:00 36.67 Gem [facility] Respiratory rate 2021-07-04 00:50:00 18 /min [facility] Body weight 2021-07-04 00:50:00 121.564 kg [facility] Oxygen saturation in 2021-07-04 00:50:00 99 /min [facility] Arterial blood by [facility] Pulse oximetry Branch BP Systolic 2022-01-21 14:32:00 BP Diastolic 2022-01-21 14:32:00 Weight Measured 2022-01-21 14:32:00 276.00 pounds Height Measured 2022-01-21 14:32:00 63.00 inches Body Temperature 2022-01-21 14:32:00 Heart Rate 2022-01-21 14:32:00 Respiratory Rate 2022-01-21 14:32:00 Procedures Procedure Date / Time Performed Performing Clinician Sour e XR CHEST 1 VW 2021-07-04 01:14:37 Raissa Tran [facility] NOTICE OF PRIVACY 2021-07-04 00:45:31 Doctor Unassigned, No [facility]ICES Name [facility] CONSENT/REFUSAL FOR 2021-07-04 00:45:10 [facility], [facility] Name [facility] TREATMENT Plan of Care Planned Activity Planned Date Details Comments Source Goal Plan of Care Note [code = 31039-6] Goal Plan of Care Note [code = 94756-2] Goal Plan of Care Note [code = 04708-3] Goal Plan of Care Note [code = 02093-4] Goal Plan of Care Note [code = 41704-8] Goal Plan of Care Note [code = 69169-6] Goal Plan of Care Note [code = 42615-7] Encounters Start End Encounter Admission Attending Care Care Encounter Source Date/Time Date/Time Type Type Clinicians Facility Department ID 2022-04-13 [id number] 2 Common 15:29:00 [facility] 2022-04-07 Outpatient Noemy Lopez [facility] [id number] 2 Common 16:07:00 [id number] [facility] 2022-01-04 Outpatient Lopez, Na [facility]LMLC [facility] [id number] 2 Common 09:31:01 [id number] [facility] 2021-10-20 Outpatient Lopez, Na STLMLC ST[facility] [id number] 2 Common 14:09:55 [id number] [facility] 2021-10-20 Outpatient Lopez, Na STLMLC ST[facility]C [id number] 2 Common 13:47:22 [id number] [facility] 2021-10-20 Outpatient Lopez, Na STLMLC ST[facility] [id number] 2 Common 12:29:04 [id number] [facility] 2021-10-20 Outpatient Lopez, Na STLMLC STLMLC [id number] 2 Common 12:03:44 [id number] [facility] 2021-10-20 Outpatient Lopez, Na STLMLC STLMLC [id number] 2 Common 12:03:05 [id number] [facility] 2021-10-20 Outpatient Lopez, Na STLMLC STLMLC [id number] 2 Common 11:43:49 [id number] [facility] 2021-10-20 Outpatient Lopez, Na STLMLC STL[facility]C [id number] 2 Common 11:35:56 13043 [facility] 2021-10-20 Outpatient Lopez, Na STLMLC STL[facility]C [id number] 2 Common 11:18:09 [id number] [facility] 2021-10-20 Outpatient Lopez, Na STLMLC STLMLC [id number] 2 Common 11:04:54 [id number] [facility] 2021-10-20 Outpatient Lopez, Na STLMLC STLMLC [id number] 2 Common 11:04:25 [id number] [facility] 2022-05-16 2022-05-16 ambulatory STLMLC STL[facility]C [id number] Common 00:00:00 00:00:00 [facility] 2022-05-16 2022-05-16 ambulatory STLMLC STLMLC [id number] Common 00:00:00 00:00:00 [facility] 2022-04-27 2022-04-27 ambulatory STLMLC STLMLC [id number] Common 00:00:00 00:00:00 [facility] 2022-04-26 2022-04-26 ambulatory STLMLC STLMLC [id number] Common 00:00:00 00:00:00 [facility] 2022-04-26 2022-04-26 ambulatory STLMLC STLMLC [id number] Common 00:00:00 00:00:00 [facility] 2022-04-20 2022-04-20 Outpatient [id number] 00:00:00 00:00:00 Visit [id number] 2022-03-30 2022-03-30 ambulatory STLMLC STLMLC [id number] Common 00:00:00 00:00:00 [facility] 2022-02-14 2022-02-14 ambulatory STLMLC STLMLC [id number] Common 00:00:00 00:00:00 [facility] 2022-01-27 2022-01-27 ambulatory STLMLC STLMLC [id number] Common 00:00:00 00:00:00 [facility] 2022-01-26 2022-01-26 ambulatory STLMLC STLMLC [id number] Common 00:00:00 00:00:00 [facility] 2022-01-18 2022-01-18 ambulatory STLMLC STLMLC [id number] Common 00:00:00 00:00:00 [facility] 2022-01-05 2022-01-05 ambulatory STLMLC STLMLC [id number] Common 00:00:00 00:00:00 [facility] 2021-12-28 2021-12-28 ambulatory STLMLC STLMLC [id number] Common 00:00:00 00:00:00 [facility] 2021-11-15 2021-11-15 ambulatory STLMLC STLMLC [id number] Common 00:00:00 00:00:00 [facility] 2021-11-11 2021-11-11 ambulatory STLMLC STLMLC [id number] Common 00:00:00 00:00:00 [facility] 2021-09-28 2021-09-28 ambulatory STLMLC STLMLC [id number] Common 00:00:00 00:00:00 [facility] 2021-08-27 2021-08-27 ambulatory STLMLC STLMLC [id number] Common 00:00:00 00:00:00 [facility] 2021-08-04 2021-08-04 ambulatory STLMLC STLMLC [id number] Common 00:00:00 00:00:00 [facility] 2021-08-02 2021-08-02 ambulatory STLMLC STLMLC [id number] Common 00:00:00 00:00:00 [facility] 2021-07-22 2021-07-22 Outpatient Vanesa Nunez HCAPM RADI LA5 [id number] [facility] 08:00:00 08:00:00 [id number] [facility] 2021-07-22 2021-07-22 Outpatient Vanesa Nunez HCAPM RADI LA0 [id number] [facility] 07:26:00 07:26:00 63 [facility] 2021-07-03 2021-07-03 Emergency Marc, [facility] [id number] Univers 19:47:00 21:16:00 [id number] [id number] [place] [id number] Branch 2021-07-03 2021-07-03 Emergency X [facility] ERT [id number] Univers 19:47:00 19:47:00 ity of [facility] 2021-06-07 2021-06-07 Outpatient STLMLC STLMLC [id number] Common 00:00:00 00:00:00 [facility] 2021-05-06 2021-05-06 Outpatient STLMLC STLMLC [id number] Common 00:00:00 00:00:00 [facility] 2021-04-28 2021-04-28 Outpatient STLMLC STLMLC [id number] Common 00:00:00 00:00:00 [facility] 2021-04-27 2021-04-27 Outpatient STLMLC STLMLC [id number] Common 00:00:00 00:00:00 [facility] 2021-03-15 2021-03-15 Outpatient STLMLC STLMLC [id number] Common 00:00:00 00:00:00 [facility] 2021-01-04 2021-01-04 Outpatient STLMLC STLMLC [id number] Common 00:00:00 00:00:00 [facility] 2020-11-03 2020-11-03 Outpatient STLMLC STLMLC [id number] Common 00:00:00 00:00:00 [facility] 2020-08-03 2020-08-03 Outpatient STLMLC STLMLC [id number] Common 00:00:00 00:00:00 [facility] 2020-05-04 2020-05-04 [id number] Common 10:10:00 10:10:[address] [facility] 2020-05-01 2020-05-01 [facility] [id number] Common 09:40:00 09:40:[address] [facility] 2020-02-19 2020-02-19 [facility] [id number] Common 16:06:00 16:06:00 t [facility] Road [facility] it Road [facility] 2019-12-12 2019-12-12 [facility] [id number] Common 15:41:00 15:41:[address] [facility] 2019-09-16 2019-09-16 [facility] [id number] Common 14:40:00 14:40:[address] [facility] 2019-08-15 2019-08-15 [facility] [id number] Common 09:27:00 09:27:[address] [facility] 2019-08-12 2019-08-12 [facility] [id number] Common 09:00:00 09:00:[address] [facility] 2019-07-31 2019-07-31 [facility] [id number] Common 11:46:00 11:46:[address] [facility] 2019-07-29 2019-07-29 [facility] [id number] Common 09:40:00 09:40:[address] [facility] 2019-06-02 2019-06-02 [facility] [id number] Common 09:38:00 09:38:00 [facility] 2019-05-31 2019-05-31 [facility] [id number] Common 11:30:00 11:30:00 [facility] 2018-01-19 2018-01-19 [facility] [id number] Common 08:11:00 08:11:[address] [facility] 2018-01-18 2018-01-18 [facility] [id number] Common 10:15:00 10:15:[address] [facility] 2017-12-26 2017-12-26 [facility] [id number] Common 09:30:00 09:30:[address] [facility] Results Test Description Test Time Test Comments Results Result Comments Source SARS-CoV-2 (COVID-19), RT-PCR/TMA 2021-12-10 07:26:55 Test Item Value Reference Range Interpretation Comme nts SARS-CoV-2 INTERPRETATION NEGATIVE SEE NOTE S ARS-CoV-2 RNA NOT (test code = 47770) DETECTED Negative results do not preclude SARS-C [...] ORDER CODE 3509. SOURCE (test code = 16291) NASOPHARYNGEAL Note: Methodology is Or Charito Real-Time [...] are provided by method given in report:https:// www.[employer]/cl inicians/client -communications/ Alternatively, see downloadable PDF fact sheet at:https://www. [employer]/COVID- 19-RT-PCR UNLES S OTHERWISE INDICATED, ALL TESTING PERFORMED ATCLINICAL PATH OLOGY LABORATORIES, I [place]. [address] [place] [address], [place] [address] [employer]TER: PRUDENCE SOLIS M.D. CLIA NUMBER [id number] CAP ACCREDITATION N O. 58297-10 SARS-CoV-2 (COVID-19) by RT-PCR (HIGH RISK)2021-12-10 00:00:00 Test Item Value Reference Range Interpretation Comments SARS-CoV-2 INTERPRETATION NEGATIVE (test code = 56443) SOURCE (test code = 81926) NASOPHARYNGEAL - CT ABD PELVIS [id number] 09:50:00 [facility] 1975 Sex: F Name: SHE GUARDADO [facility] : 1975 Age/S: 46 / F [address] [facility] [place] Unit #: [id number] Loc: [place] [address] Phys: Vanesa Nunez MD Acct: [id number] Dis Date: Status: REG CLI PHONE #: [phone] Exam Date: 07/22/2021917 FAX #: Reason: CROHNS DISEASE, UNSPECIFIED, WITHOUT COMPLICATI EXAMS: CPT: [id number] CT ABD PELVIS W/CONT 09309 HISTORY: CROHN'S DISEASE, UNSPECIFIED, WITHOUT COMPLICATIONS TECHNIQUE: Helical imaging of the abdomen and pelvis is performed with intravenous contrast. Approximately 100 mL of intravenous contrast was administered. No oral contrast is administered. Sagit ovidio and coronal reconstructions reviewed. CT DLP dose: 974 mGy-cm. Iterative dose reduction technique was utilized. Location: T 18 Comparison study: None FINDINGS: The images of the lung bases demonstrate no masses, effusions or infiltrates. Heart size is normal. There is no pericardial effusion. Theliver is homogeneous, free of focal masses and [...] is no colic inflammation. No retroperitoneal lymphadenopathy ispresent. The aorta is of normal caliber. The IVC is patent. The portal vein is patent. No evidence of ascites. Abdominal wall is intact. No significant bone lesions. PAGE 1 Signed Report (CONTINUED) Name: SHE GUARDADO : 1975 Age/S: 46 / F [id number] [address] [place] Unit #: [id number]: [place] [address] Phys: Vanesa Nunez MD Acct: [id number] Dis Date: Status: REG CLI PHONE #: Exam Date: 07/22/2021 0918 FAX #: Reason: CROHNS DISEASE, UNSPECIFIED, WITHOUT COMPLICATI EXAMS: CPT: [id number] CT ABD PELVIS W/CONT 84685 (Continued) IMPRESSION: 1. There is mild diffuse thickening of the transverse colon and splenic flexure as well as the distal descending colon and upper sigmoid. There is no pericolonic inflammation. Findings may represent infectious or inflammatory colitis. 2. Status post cholecystectomy. 3. Evidence of right colonic surgery. Electronically Signedby Lexis Calix on 07/22/2021 at 0950 Reported and signed by: Sudhir Calix M.D. CC: Vanesa Nunez MD; Noemy Lopez DO Technologist:Mukul Ryan, RT(R) CTDI: DLP: Trnscb Date/Time:07/22/2021 (0950) [id number] Orig Print D/T: S: 07/22/2021 (1936) PAGE 2 Signed [id number] 08:27:00 Test Item Value Reference Range Interpretation Comments ISTAT-BUN (test code = BUNP) 8 mg/dL 8-26 N BEDSIDE [id number] 08:27:00 Test Item Value Reference Range Interpretation Comments BEDSIDE CREATININE (test code = 0.6 mg/dL 0.6-1.3 N CREATBED) SARS-COV-2 (COVID19), NAAT [ADDED]2020-10-02 00:00:00 Test Item Value Reference Range Interpretation Comments SARS-CoV-2 INTERPRETATION (test NEGATIVE code = 85234) SOURCE (test code = 84421) NOT SPECIFIED SARS-CoV-2 (COVID-19) by RT-PCR (HIGH RISK)2020-04-17 00:00:00 Test Item Value Reference Range Interpretation Comments SARS-CoV-2 INTERPRETATION (test NEGATIVE code = 58930) SOURCE (test code = 60068) NOT SPECIFIED
[2022-05-28] MEDS ORDERED: dexAMETHasone 10 MG/ML VIAL ONE (19:19)
[2022-05-28] MEDS ORDERED: KETOROLAC 30 MG/ML INJ ONE (19:19)
[2022-05-28] MEDS ORDERED: SIMETHICONE 80 MG TAB ONE (19:20)
--- NOTE | 2022-05-28 20:00 | EDPHYS ---
Physician Documentation [facility] Name: Dori Guardado Age: 47 yrs Sex: Female : 1975 Arrival Date: 05/28/2022 Time: 18:32 Bed 18 Private MD: Noemy Lopez ED Physician Yogesh Singh HPI: 05/28 19:43 This 47 yrs old Black Female presents to ER via Ambulatory with complaints of Abdominal snw Pain, Nausea, Diarrhea. 19:43 The patient presents with abdominal pain that is diffuse. Onset: The symptoms/episode snw began/occurred gradually, 4 day(s) ago, and became persistent. The symptoms radiate to back. Associated signs and symptoms: Pertinent positives: diarrhea, nausea, Pertinent negatives: blood in stools, vomiting. The symptoms are described as achy, crampy. Severity of pain: At its worst the pain was moderate in the emergency department the pain is unchanged. The patient has experienced similar episodes in the past, multiple times, today's symptoms are similar. The patient has been recently seen by a physician: with similar presenting complaints, video visit with GI, The patient has been recently seen at the [facility] Emergency Department, this week, for similar complaints. 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 - Social history:: Smoking status: Patient denies any tobacco usage or history of. ROS: 19:40 Constitutional: Negative for fever, chills, and weight loss, Eyes: Negative for injury, snw pain, redness, and discharge, ENT: Negative for injury, pain, and discharge, Neck: Negative for injury, pain, and swelling, Cardiovascular: Negative for chest pain, palpitations, and edema, Respiratory: Negative for shortness of breath, cough, wheezing, and pleuritic chest pain, : Negative for injury, bleeding, discharge, and swelling, MS/Extremity: Negative for injury and deformity, Skin: Negative for injury, rash, and discoloration, Neuro: Negative for headache, weakness, numbness, tingling, and seizure, Psych: Negative for depression, anxiety, suicide ideation, homicidal ideation, and hallucinations. 19:40 Abdomen/GI: Positive for abdominal pain, diarrhea, Negative for vomiting, constipation, black/tarry stool, rectal pain, rectal bleeding. 19:40 Back: Positive for pain at rest, of the mid back area. Exam: 19:39 Constitutional: This is a well developed, well nourished patient who is awake, alert, snw and in no acute distress. Head/Face: Normocephalic, atraumatic. Eyes: Pupils equal round and reactive to light, extra-ocular motions intact. Lids and lashes normal. Conjunctiva and sclera are non-icteric and not injected. Cornea within normal limits. Periorbital areas with no swelling, redness, or edema. ENT: Nares patent. No nasal discharge, no septal abnormalities noted. Tympanic membranes are normal and external auditory canals are clear. Oropharynx with no redness, swelling, or masses, exudates, or evidence of obstruction, uvula midline. Mucous membranes moist. Neck: Trachea midline, no thyromegaly or masses palpated, and no cervical lymphadenopathy. Supple, full range of motion without nuchal rigidity, or vertebral point tenderness. No Meningismus. Chest/axilla: Normal chest wall appearance and motion. Nontender with no deformity. No lesions are appreciated. Cardiovascular: Regular rate and rhythm with a normal S1 and S2. No gallops, murmurs, or rubs. Normal PMI, no JVD. No pulse deficits. Respiratory: Lungs have equal breath sounds bilaterally, clear to auscultation and percussion. No rales, rhonchi or wheezes noted. No increased work of breathing, no retractions or nasal flaring. Skin: Warm, dry with normal turgor. Normal color with no rashes, no lesions, and no evidence of cellulitis. MS/ Extremity: Pulses equal, no cyanosis. Neurovascular intact. Full, normal range of motion. Neuro: Awake and alert, GCS 15, oriented to person, place, time, and situation. Cranial nerves II-XII grossly intact. Motor strength 5/5 in all extremities. Sensory grossly intact. Cerebellar exam normal. Normal gait. Psych: Awake, alert, with orientation to person, place and time. Behavior, mood, and affect are within normal limits. 19:39 Abdomen/GI: Inspection: obese Bowel sounds: normal, in all quadrants, Palpation: mild abdominal tenderness, in all quadrants, moderate abdominal tenderness. 19:39 Back: pain, that is mild, that is moderate, of the mid back area. Vital Signs: 18:35 BP 147 / 108; Pulse 76; Resp 16; Temp 97.1(TE); Pulse Ox 100% on R/A; Weight 125.19 kg bm7 (R); Height 5 ft. 3 in. (160.02 cm); Pain 10/10; 19:20 Pain 8/10; kd3 20:09 BP 142 / 95; Pulse 74; Resp 18; Pulse Ox 100% on R/A; kd3 18:35 Body Mass Index 48.89 (125.19 kg, 160.02 cm) bm7 MDM: 18:45 Patient medically screened. snw 19:40 Data reviewed: vital signs, nurses notes, old medical records, pt seen in this ED two snw days ago with some relief. Yesterday pt began having more pain, had video visit with GI specialist. Pt took her Humira, GI cocktail. Today pt is achy all over. Has had 5-8 episodes of diarrhea. No blood. lab test result(s). Data interpreted: Pulse oximetry: on room air is 100 %. Interpretation: normal. Counseling: I had a detailed discussion with the patient and/or guardian regarding: the historical points, exam findings, and any diagnostic results supporting the discharge/admit diagnosis, the presence of at least one elevated blood pressure reading (>120/80) during this emergency department visit, the need for outpatient follow up. 20:00 Response to treatment: the patient's symptoms have markedly improved after treatment. snw ED course: Pt states she is feeling better. Discussed discharge home, if pt must return for pain and additional symptoms, probable admission. Pt agrees with tx plan and f/u. Administered Medications: 19:21 Drug: Decadron (dexamethasone) 10 mg Route: IM; Site: left deltoid; kd3 20:08 Follow up: Response: No adverse reaction; Pain is decreased kd3 19:21 Drug: Simethicone 240 mg Route: PO; kd3 20:08 Follow up: Response: No adverse reaction; Pain is decreased kd3 19:22 Drug: Ketorolac 60 mg Route: IM; Site: right vastus lateralis; kd3 20:08 Follow up: Response: No adverse reaction; Pain is decreased kd3 20:08 Drug: GI Cocktail without - (Maalox Suspension 30 ml, Lidocaine Liquid 2 % 15 kd3 ml) Route: PO; 20:08 Follow up: Response: No adverse reaction; Pain is decreased kd3 Disposition: 05/29 11:57 Co-signature as Attending Physician, Yogesh Singh MD I agree with the assessment and kdr plan of care. Disposition Summary: 05/28/22 19:59 Discharge Ordered Location: Home snw Condition: Stable snw Diagnosis - Abdominal pain, unspecified snw Followup: snw - With: Emergency Department - When: As needed - Reason: Worsening of condition Followup: snw - With: Noemy Lopez MD - When: 2 - 3 days - Reason: Recheck today's complaints, Continuance of care, Re-evaluation by your physician Discharge Instructions: - Discharge Summary Sheet snw - Abdominal Pain, Adult snw - Colic snw Forms: - Medication Reconciliation Form snw - Thank You Letter snw - Antibiotic Education snw - Prescription Opioid Use snw Prescriptions: - Diclofenac Sodium 75 mg Oral tablet,delayed release (DR/EC) - take 1 tablet by ORAL route 2 times per day; 14 tablet; Refills: 0, Product snw Selection Permitted Signatures: Yogesh Singh MD MD kdr Kim Geiger, FINANCIAL SERVICES ASSISTANT-C FINANCIAL SERVICES ASSISTANT-Ailinw Miriam Barnes, RN RN bm7 Chela Combs RN RN kd3 Corrections: (The following items were deleted from the chart) 05/28 18:40 18:39 PSHx: Appendectomy; bm7 bm7 18:40 18:39 PSHx: Cholecystectomy; bm7 bm7
--- NOTE | 2022-05-28 20:00 | ER ---
Nurse's Notes [facility] Name: Dori Guardado Age: 47 yrs Sex: Female : 1975 Arrival Date: 05/28/2022 Time: 18:32 Bed 18 Private MD: Noemy Lopez Diagnosis: Abdominal pain, unspecified Presentation: 05/28 18:35 Chief complaint: Patient states: I have been having abdominal pain for about a week. I bm7 came here and they said everything was normal but it keeps getting worse. Coronavirus screen: At this time, the client does not indicate any symptoms associated with coronavirus-19. Ebola Screen: No symptoms or risks identified at this time. Initial Sepsis Screen: Does the patient meet any 2 criteria? No. Patient's initial sepsis screen is negative. Does the patient have a suspected source of infection? No. Patient's initial sepsis screen is negative. Risk Assessment: Do you want to hurt yourself or someone else? Patient reports no desire to harm self or others. Onset of symptoms was May 22, 2022. 18:35 Method Of Arrival: Ambulatory 7 18:35 Acuity: KASH 3 bm7 Triage Assessment: 18:40 General: Appears in no apparent distress. uncomfortable, obese, well groomed, well bm7 developed, Behavior is calm, cooperative, appropriate for age. Pain: Complains of pain in abdomen Pain radiates to back. EENT: No deficits noted. No signs and/or symptoms were reported regarding the EENT system. Neuro: No deficits noted. Cardiovascular: No deficits noted. Respiratory: No deficits noted. GI: Abdomen is flat, non-distended, obese, Reports diarrhea, nausea. : No deficits noted. No signs and/or symptoms were reported regarding the genitourinary system. Derm: No deficits noted. No signs and/or symptoms reported regarding the dermatologic system. Musculoskeletal: No deficits noted. No signs and/or symptoms reported regarding the musculoskeletal system. 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 - Social history:: Smoking status: Patient denies any tobacco usage or history of. Screenin:51 Abuse screen: Denies threats or abuse. Denies injuries from another. Nutritional mb8 screening: No deficits noted. Tuberculosis screening: No symptoms or risk factors identified. Fall Risk None identified. Assessment: 18:49 General: Appears uncomfortable, Behavior is calm, cooperative, appropriate for age. mb8 Pain: Complains of pain in abdomen Pain radiates to left shoulder Pain currently is 7 out of 10 on a pain scale. at worst was 10 out of 10 on a pain scale. Quality of pain is described as stabbing. GI: Abdomen is non-distended, Bowel sounds present X 4 quads. Abdomen is tender to palpation in right upper quadrant and right lower quadrant Reports upper abdominal pain, diarrhea, nausea, Patient currently denies rectal bleeding. 19:22 General: Appears uncomfortable, Behavior is calm, cooperative. Neuro: Level of kd3 Consciousness is awake, alert, obeys commands, Oriented to person, place, time, situation. Respiratory: Airway is patent Trachea midline Respiratory effort is even, unlabored, Respiratory pattern is regular, symmetrical. GI: Abdomen is non-distended, obese, Bowel sounds present X 4 quads. Abdomen is tender to palpation in right lower quadrant and right upper quadrant. 20:08 Reassessment: Patient and/or family updated on plan of care and expected duration. Pain kd3 level reassessed. Patient is alert, oriented x 3, equal unlabored respirations, skin warm/dry/pink. Patient states feeling better. Patient states symptoms have improved. Vital Signs: 18:35 BP 147 / 108; Pulse 76; Resp 16; Temp 97.1(TE); Pulse Ox 100% on R/A; Weight 125.19 kg bm7 (R); Height 5 ft. 3 in. (160.02 cm); Pain 10/10; 19:20 Pain 8/10; kd3 20:09 BP 142 / 95; Pulse 74; Resp 18; Pulse Ox 100% on R/A; kd3 18:35 Body Mass Index 48.89 (125.19 kg, 160.02 cm) bm7 ED Course: 18:32 Patient arrived in ED. am2 18:33 Noemy Lopez MD is Private Physician. am2 18:33 Kim Geiger FNP-C [facility] snw 18:33 Yogesh Singh MD is Attending Physician. snw 18:39 Triage completed. bm7 18:40 Arm band placed on right wrist. bm7 18:51 Patient has correct armband on for positive identification. mb8 18:51 No provider procedures requiring assistance completed. mb8 19:07 Chela Combs, LEONA is Primary Nurse. kd3 19:59 Noemy Lopez MD is Referral Physician. snw 20:09 Patient did not have IV access during this emergency room visit. kd3 Administered Medications: 19:21 Drug: Decadron (dexamethasone) 10 mg Route: IM; Site: left deltoid; kd3 20:08 Follow up: Response: No adverse reaction; Pain is decreased kd3 19:21 Drug: Simethicone 240 mg Route: PO; kd3 20:08 Follow up: Response: No adverse reaction; Pain is decreased kd3 19:22 Drug: Ketorolac 60 mg Route: IM; Site: right vastus lateralis; kd3 20:08 Follow up: Response: No adverse reaction; Pain is decreased kd3 20:08 Drug: GI Cocktail without - (Maalox Suspension 30 ml, Lidocaine Liquid 2 % 15 kd3 ml) Route: PO; 20:08 Follow up: Response: No adverse reaction; Pain is decreased kd3 Medication: 18:51 VIS not applicable for this client. mb8 Outcome: 19:59 Discharge ordered by . snw 20:08 Discharged to home ambulatory. kd3 20:08 Condition: stable 20:08 Discharge instructions given to patient, Instructed on discharge instructions, follow up and referral plans. medication usage, Demonstrated understanding of instructions, follow-up care, medications, Prescriptions given X 1. 20:09 Patient left the ED. kd3 Signatures: Kim Geiger FNP-C SPECIAL DELIVERY WORKER-Csnw Madelin Kemp am2 Miriam Barnes RN RN bm7 Chela Combs RN RN kd3 Jaziel Donahue RN RN mb8 Corrections: (The following items were deleted from the chart) 18:40 18:39 PSHx: Appendectomy; bm7 bm7 18:40 18:39 PSHx: Cholecystectomy; bm7 bm7
[2022-05-28] MEDS ORDERED: LIDOCAINE VISCOUS 2% SOLN 15 ML UDC ONE (20:12)
[2022-05-28] MEDS ORDERED: MAGNES/ALUMIN/SIMET 30ML UCUP ONE (20:12)
[2022-05-28 21:12] VITALS: TEMP 97.1; O2SAT 100
[2022-05-28 21:16] VITALS: BP 142/95
== END 2022-05-28 20:09 | disposition home or self-care (01) ==
LOC: ER 18:32
DX: R10.9 Unspecified abdominal pain (principal); I10 Essential (primary) hypertension; I48.91 Unspecified atrial fibrillation
CPT/HCPCS: 96372; 99283; J1100

== ENCOUNTER 2022-06-20 15:25 | Emergency (ER) | payer OTHER ==
[2012-03-13 22:29] VITALS: BP 124/76
--- OUTSIDE RECORDS SUMMARY | 2022-06-20 15:30 | XMS REPORT | Continuity of Care Document ---
:1975 Author Organization [facility] t Address [address] [place] [address] Care Team Providers Name Role Phone Noemy [...] active active ity of problems problems [facility] Allergies, Adverse Reactions, Alerts Allergy Allergy Status Severity Reaction(s) Onset Inactive Treating Comm ents Source Name Type Date Date Clinician No Known DA Active U 2020-09 [facility]ie 0-28 [facility] 00:[facility]: d 00 [facility] No Known DA Active U 2020-09 [facility] Allergie 0-28 [facility] [facility] 00:00: d 00 [facility] NO KNOWN Drug Active Univers ALLERGIE Class ity of S [facility] Social History Social Habit Start Date Stop Date Quantity Comments Source Sex Assigned At [birth year] [facility] 00:00:00 00:00:00 Medical Branch Smoking Status Start Date Stop Date Source Unknown if ever smoked [facility] Medications Ordered Filled Start [...] No Univers medications 0-09 ity of 19:54: [address] metoprolol 2020-0 No 1mg tartrate 50 [...] Sodium 05-04 [facility] 00:[facility]: [facility] Ergocalcife Ergocalcife 2019-1 2020- No Na Lopez 1 capsule Common rol rol 1-18 11-10 [facility] 00:00: 00:00 - [facility]00 [facility] Paxil Paxil 0 Yes Na Lopez 1 tablet Comm on 12-26 in the [facility] 00:00: morning - [facility] Humira Humira Yes Na Lopez not Common defined [facility] Aspirin Aspirin Yes Na Lopez not Common defined [facility] BusPIRone BusPIRone Yes Na Lopez 1 tablet Common HCl HCl [facility] Metoprolol Metoprolol Yes Na Lopez 1 tablet Common [facility]art[facility] Signs Vital Name Observation Time Observation Value Comments Source Systolic blood 2021-07-04 00:50:00 180 mm[Hg] [facility] Diastolic blood 2021-07-04 00:50:00 110 mm[Hg] Unive [facility] Heart rate 2021-07-04 00:50:00 79 /min [facility] Body temperature 2021-07-04 00:50:00 36.67 Gem [facility] Respiratory rate 2021-07-04 00:50:00 18 /min [facility] Body weight 2021-07-04 00:50:00 121.564 kg [facility] Oxygen saturation in 2021-07-04 00:50:00 99 /min [facility] Arterial blood by [facility] Pulse oximetry Branch BP Systolic 2022-01-21 14:32:00 BP Diastolic 2022-01-21 14:32:00 Weight Measured 2022-01-21 14:32:00 276.00 pounds Height Measured 2022-01-21 14:32:00 63.00 inches Body Temperature 2022-01-21 14:32:00 Heart Rate 2022-01-21 14:32:00 Respiratory Rate 2022-01-21 14:32:00 Procedures Procedure Date / Time Performed Performing Clinician Sour e XR CHEST 1 VW 2021-07-04 01:14:37 Raissa [facility] NOTICE OF PRIVACY 2021-07-04 00:45:31 Doctor Unassigned, No [facility] PRACTICES Name [facility] CONSENT/REFUSAL FOR 2021-07-04 00:45:10 [facility], [facility] AND Name [facility] TREATMENT Plan of Care Planned Activity Planned Date Details Comments Source Goal Plan of Care Note [code = 97302-1] Goal Plan of Care Note [code = 95376-0] Goal Plan of Care Note [code = 07453-1] Goal Plan of Care Note [code = 52182-8] Goal Plan of Care Note [code = 68267-0] Goal Plan of Care Note [code = 00940-5] Goal Plan of Care Note [code = 53774-4] Encounters Start End Encounter Admission Attending Care Care Encounter Source Date/Time Date/Time Type Type Clinicians Facility Department ID 2022-06-01 Outpatient Noemy Lopez [facility] [id number] Common 09:18:00 [id number] [facility] 2022-04-13 [facility] [id number] 2 Common 15:29:00 [facility] 2022-04-07 Outpatient Lopez, Na [facility] [id number] Common 16:07:00 [facility] 2022-01-04 Outpatient Lopez, Na [facility]C [facility] [id number] Common 09:31:01 [facility] 2021-10-20 Outpatient Lopez, Na [facility] [id number] Common 14:09:55 [id number] [facility] 2021-10-20 Outpatient Lopez, Na [facility] [id number] Common 13:47:22 [id number] [facility] 2021-10-20 Outpatient Lopez, Na [facility] [id number] Common 12:29:04 [id number] [facility] 2021-10-20 Outpatient Lopez, Na [facility]C [facility] [id number] Common 12:03:44 [id number] [facility] 2021-10-20 Outpatient Lopez, Na [facility]C [facility] [id number] 2 Common 12:03:05 [id number] [facility] 2021-10-20 Outpatient Lopez, Na [facility]C [facility] [id number] 2 Common 11:43:49 [id number] [facility] 2021-10-20 Outpatient Lopez, Na [facility] [id number] 2 Common 11:35:56 [id number] [facility] 2021-10-20 Outpatient Lopez, Na [facility] [id number] Common 11:18:09 [id number] [facility] 2021-10-20 Outpatient Lopez, Na [facility] [id number] 2 Common 11:04:54 [id number] [facility] 2021-10-20 Outpatient Lopez, Na [facility]C [facility] [id number] 2 Common 11:04:25 [id number] [facility] 2022-06-03 2022-06-03 ambulatory [facility]C [facility] [id number] Common 00:00:00 00:00:00 [facility] 2022-05-16 2022-05-16 ambulatory [facility]C ST[facility] [id number] Common 00:00:00 00:00:00 [facility] 2022-05-16 2022-05-16 ambulatory [facility]LMLC ST[facility] [id number] Common 00:00:00 00:00:00 [facility] 2022-04-27 2022-04-27 ambulatory STLMLC ST[facility] [id number] Common 00:00:00 00:00:00 [facility] 2022-04-26 2022-04-26 ambulatory STLMLC ST[facility]C [id number] Common 00:00:00 00:00:00 [facility] 2022-04-26 2022-04-26 ambulatory STLMLC STL[facility]C [id number] Common 00:00:00 00:00:00 [facility] 2022-04-20 2022-04-20 Outpatient [id number] 00:00:00 00:00:00 Visit [id number] 2022-03-30 2022-03-30 ambulatory [facility] ST[facility] [id number] Common 00:00:00 00:00:00 [facility] 2022-02-14 2022-02-14 ambulatory STLMLC STLMLC [id number] Common 00:00:00 00:00:00 [facility] 2022-01-27 2022-01-27 ambulatory STLMLC STL[facility]C [id number] Common 00:00:00 00:00:00 [facility] 2022-01-26 2022-01-26 ambulatory STLMLC STL[facility]C [id number] Common 00:00:00 00:00:00 [facility] 2022-01-18 2022-01-18 ambulatory STLMLC ST[facility]C [id number] Common 00:00:00 00:00:00 [facility] 2022-01-05 2022-01-05 ambulatory STLMLC STL[facility]C [id number] Common 00:00:00 00:00:00 [facility] 2021-12-28 2021-12-28 ambulatory STLMLC STL[facility]C [id number] Common 00:00:00 00:00:00 [facility] 2021-11-15 2021-11-15 ambulatory STLMLC STL[facility]C [id number] Common 00:00:00 00:00:00 [facility] 2021-11-11 2021-11-11 ambulatory STLMLC STLMLC [id number] Common 00:00:00 00:00:00 [facility] 2021-09-28 2021-09-28 ambulatory STLMLC ST[facility]C [id number] Common 00:00:00 00:00:00 [facility] 2021-08-27 2021-08-27 ambulatory STLMLC STL[facility]C [id number] Common 00:00:00 00:00:00 [facility] 2021-08-04 2021-08-04 ambulatory STLMLC STL[facility]C [id number] Common 00:00:00 00:00:00 [facility] 2021-08-02 2021-08-02 ambulatory STLMLC STL[facility]C [id number] Common 00:00:00 00:00:00 [facility] 2021-07-22 2021-07-22 Outpatient Vanesa Cheung HCAPM RADI LA0 [id number] [facility] 08:00:00 08:00:[address] [facility] 2021-07-03 2021-07-03 Emergency Marc, [facility] [id number] Univers 19:47:00 21:16:00 [id number] [id number] [place] [address] Branch 2021-07-03 2021-07-03 Emergency X [facility] ERT [id number] Univers 19:47:00 19:47:00 ity [facility] 2021-06-07 2021-06-07 Outpatient STL[facility]C ST[facility] [id number] Common 00:00:00 00:00:00 [facility] 2021-05-06 2021-05-06 Outpatient STLMLC ST[facility] [id number] Common 00:00:00 00:00:00 [facility] 2021-04-28 2021-04-28 Outpatient STLMLC STL[facility]C [id number] Common 00:00:00 00:00:00 [facility] 2021-04-27 2021-04-27 Outpatient STLMLC STL[facility]C [id number] Common 00:00:00 00:00:00 [facility] 2021-03-15 2021-03-15 Outpatient STLMLC STL[facility] [id number] Common 00:00:00 00:00:00 [facility] 2021-01-04 2021-01-04 Outpatient [facility]C ST[facility] [id number] Common 00:00:00 00:00:00 [facility] 2020-11-03 2020-11-03 Outpatient ST[facility]C ST[facility] [id number] Common 00:00:00 00:00:00 [facility] 2020-08-03 2020-08-03 Outpatient STLMLC STL[facility]C [id number] Common 00:00:00 00:00:00 [facility] 2020-05-04 2020-05-04 [id number] Common 10:10:00 10:10:00 [place] [employer] [address] [facility] 2020-05-01 2020-05-01 [facility] [id number] Common 09:40:00 09:40:00 [place] [employer] [address] [facility] 2020-02-19 2020-02-19 [facility] [id number] Common 16:06:00 16:06:00 t [facility] [address] [facility] 2019-12-12 2019-12-12 [facility] [id number] Common 15:41:00 15:41:00 t [place] [facility] it Drive [facility] 2019-09-16 2019-09-16 [facility] [id number] Common 14:40:00 14:40:00 [place] [address] [facility] 2019-08-15 2019-08-15 [facility] [id number] Common 09:27:00 09:27:00 [place] [address] [facility] 2019-08-12 2019-08-12 [facility] [id number] Common 09:00:00 09:00:00 [place] [address] [facility] 2019-07-31 2019-07-31 [facility] [id number] Common 11:46:00 11:46:00 [place] [address] [facility] 2019-07-29 2019-07-29 [facility] [id number] Common 09:40:00 09:40:00 [place] [address] [facility] 2019-06-02 2019-06-02 [facility] [id number] Common 09:38:00 09:38:00 t [facility] 2019-05-31 2019-05-31 [facility] [id number] Common 11:30:00 11:30:00 [facility] 2018-01-19 2018-01-19 [facility] [id number] Common 08:11:00 08:11:00 [place] [address] [facility] 2018-01-18 2018-01-18 [facility] [id number] Common 10:15:00 10:15:00 [place] [address] [facility] 2017-12-26 2017-12-26 [facility] [id number] Common 09:30:00 09:30:00 [address] [place] [address] [facility] Results Test Description Test Time Test Comments Results Result Comments Source SARS-CoV-2 (COVID-19), RT-PCR/TMA 2021-12-10 07:26:55 Test Item Value Reference Range Interpretation Comme nts SARS-CoV-2 INTERPRETATION NEGATIVE SEE NOTE S ARS-CoV-2 RNA NOT (test code = 67049) DETECTED Negative results do not preclude SARS-C [...] ORDER CODE 3509. SOURCE (test code = 05588) NASOPHARYNGEAL Note: Methodology is Ro Charito Real-Time [...] are provided by method given in report:https:// www.beqom/cl inicians/client -communications/ Alternatively, see downloadable PDF fact sheet at:https://www. beqom/COVID- 19-RT-PCR UNLES S OTHERWISE INDICATED, ALL TESTING PERFORMED ATCLINICAL PATH [facility]LOGY LABORATORIES, I [place]. [address] [place] [address], [place] 8354 4 POLICY MANAGER: PRUDENCE SOLIS M.D. CLIA NUMBER [id number] CAP ACCREDITATION N O. [id number] SARS-CoV-2 (COVID-19) by RT-PCR (HIGH RISK)2021-12-10 00:00:00 Test Item Value Reference Range Interpretation Comments SARS-CoV-2 INTERPRETATION NEGATIVE (test code = 98277) SOURCE (test code = 89925) NASOPHARYNGEAL - CT ABD PELVIS [id number] 09:50:00 [facility] 1975 Sex: F Name: SHE GUARDADO [facility] : 1975 Age/S: 46 / F [id number] [facility] [facility] [place] Unit #: [id number] Loc: [place] [address] Phys: Vanesa Nunez MD Acct: [id number] Dis Date: Status: [facility] PHONE #: [phone] Exam Date: 07/22/2021917 FAX #: Reason: CROHNS DISEASE, UNSPECIFIED, WITHOUT COMPLICATI EXAMS: CPT: [id number] CT ABD PELVIS W/CONT 30209 HISTORY: CROHN'S DISEASE, UNSPECIFIED, WITHOUT COMPLICATIONS TECHNIQUE: [...] 1 Signed Report (CONTINUED) Name: SHE GUARDADO [facility] : 1975 Age/S: 46 / F [id number] [facility] [place] Unit #: [id number]: [place] [address] Phys: Vanesa Nunez MD Acct: [id number] Dis Date: Status: REG CLI PHONE #: [phone] Exam Date: 07/22/2021917 FAX #: Reason: CROHNS DISEASE, UNSPECIFIED, WITHOUT COMPLICATI EXAMS: CPT: [id number] CT ABD PELVIS W/CONT 77003 (Continued) IMPRESSION: 1. There is mild diffusethickening of the transverse colon and splenic flexure as well as the distal descending colon and upper sigmoid. There is no pericolonic inflammation. Findings may represent infectious or inflammatorycolitis. 2. Status post cholecystectomy. 3. Evidence of right colonic surgery. at 0950 Reported and signed by: Sudhir Calix M.D. CC: Vanesa Nunez MD; Noemy Lopez DO Technologist:Mukul Ryan, RT(R) CTDI: DLP: Trnscb Date/Time: 07/22/2021 (0950) [id number] Orig Print D/T: S: 07/22/2021 (7642) PAGE 2 Signed [id number] 08:27:00 Test Item Value Reference Range Interpretation Comments ISTAT-BUN (test code = BUNP) 8 mg/dL 8-26 N BEDSIDE [id number] 08:27:00 Test Item Value Reference Range Interpretation Comments BEDSIDE CREATININE (test code = 0.6 mg/dL 0.6-1.3 N CREATBED) SARS-COV-2 (COVID19), NAAT [ADDED]2020-10-02 00:00:00 Test Item Value Reference Range Interpretation Comments SARS-CoV-2 INTERPRETATION (test NEGATIVE code = 78213) SOURCE (test code = 43580) NOT SPECIFIED SARS-CoV-2 (COVID-19) by RT-PCR (HIGH RISK)2020-04-17 00:00:00 Test Item Value Reference Range Interpretation Comments SARS-CoV-2 INTERPRETATION (test NEGATIVE code = 00037) SOURCE (test code = 12192) NOT SPECIFIED
[2022-06-20 15:54] LABS: Urine Blood Negative (Negative); Urine Glucose Negative (Negative); Urine Protein Negative (Negative)
[2022-06-20 17:06] LABS: Urine RBC <5 /HPF (None Seen)
[2022-06-20 18:14] LABS: SARS-CoV-2 Antigen Rapid Res Negative (Negative)
--- NOTE | 2022-06-20 18:27 | ER ---
Nurse's Notes [facility] Name: Dori Guardado Age: 47 yrs Sex: Female : 1975 Arrival Date: 06/20/2022 Time: 15:27 Bed 7 Private MD: Diagnosis: Frequency of micturition;Acute pain, not elsewhere classified-right great toe, bilateral knee, fingers Presentation: 06/20 15:36 Chief complaint: Patient states: Urinary frequency, LLQ abdominal pain, aching jl7 bilateral knees and right big toe pain x 1 day. Coronavirus screen: At this time, the client does not indicate any symptoms associated with coronavirus-19. Ebola Screen: No symptoms or risks identified at this time. Initial Sepsis Screen: Does the patient meet any 2 criteria? No. Patient's initial sepsis screen is negative. Does the patient have a suspected source of infection? No. Patient's initial sepsis screen is negative. Risk Assessment: Do you want to hurt yourself or someone else? Patient reports no desire to harm self or others. Onset of symptoms was June 19, 2022. 15:36 Method Of Arrival: [facility] 15:36 Acuity: KASH 3 jl7 Triage Assessment: 15:38 General: Appears in no apparent distress. uncomfortable, Behavior is calm, cooperative, jl7 appropriate for age. Pain: Complains of pain in left lower quadrant Pain currently is 5 out of 10 on a pain scale. GI: Patient currently denies diarrhea, nausea, vomiting. 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 - Social history:: Smoking status: Patient denies any tobacco usage or history of. Screenin:46 Abuse screen: Denies threats or abuse. Nutritional screening: No deficits noted. tw2 Tuberculosis screening: No symptoms or risk factors identified. Fall Risk None identified. Assessment: 16:54 Reassessment: Patient appears in no apparent distress at this time. No changes from tw2 previously documented assessment. Patient and/or family updated on plan of care and expected duration. Pain level reassessed. Patient is alert, oriented x 3, equal unlabored respirations, skin warm/dry/pink. 18:08 Reassessment: Patient appears in no apparent distress at this time. No changes from tw2 previously documented assessment. Patient and/or family updated on plan of care and expected duration. Pain level reassessed. Patient is alert, oriented x 3, equal unlabored respirations, skin warm/dry/pink. 18:45 Reassessment: Patient appears in no apparent distress at this time. No changes from tw2 previously documented assessment. Patient and/or family updated on plan of care and expected duration. Pain level reassessed. Patient is alert, oriented x 3, equal unlabored respirations, skin warm/dry/pink. Vital Signs: 15:36 BP 142 / 95; Pulse 79; Resp 17; Temp 98.2; Pulse Ox 100% ; Weight 125.19 kg; Height 5 jl7 ft. 3 in. (160.02 cm); Pain 5/10; 16:54 BP 135 / 86; Pulse 77; Resp 17; Pulse Ox 99% on R/A; tw2 18:08 BP 126 / 87; Pulse 71; Resp 17; Pulse Ox 97% on R/A; tw2 15:36 Body Mass Index 48.89 (125.19 kg, 160.02 cm) jl7 ED Course: 15:27 Patient arrived in ED. rg4 15:32 Hardy Mahoney PA is PHCP. cp 15:32 Camilo Marie DO is Attending Physician. cp 15:38 Triage completed. jl7 15:38 Arm band placed on right wrist. jl7 15:41 Bed in low position. Call light in reach. tw2 15:45 Vielka Tsai, LEONA is Primary Nurse. tw2 18:44 No provider procedures requiring assistance completed. Patient did not have IV access tw2 during this emergency room visit. Administered Medications: No medications were administered Medication: 16:52 VIS not applicable for this client. tw2 Point of Care Testing: Blood Glucose: 18:05 Blood Glucose: 74 mg/dL; tw2 Ranges: Outcome: 18:26 Discharge ordered by . cp 18:44 Discharged to home ambulatory. tw2 18:44 Condition: stable 18:44 Discharge instructions given to patient, Instructed on discharge instructions, follow up and referral plans. Demonstrated understanding of instructions, follow-up care. 18:45 Patient left the ED. tw2 Signatures: Hardy Mahoney PA PA cp Wise, Tara RN RN tw2 Bertha Dao rg4 Tila Correa RN RN jl7
--- NOTE | 2022-06-20 18:27 | EDPHYS ---
Physician Documentation [facility] Name: Dori Guardado Age: 47 yrs Sex: Female : 1975 Arrival Date: 06/20/2022 Time: 15:27 Bed 7 Private MD: ED Physician Camilo Marie HPI: 06/20 16:10 This 47 yrs old Black Female presents to ER via Ambulatory with complaints of Urinary cp Frequency. 16:10 The patient presents with urinary symptoms, frequency. cp 16:10 Onset: The symptoms/episode began/occurred yesterday. Associated signs and symptoms: cp Pertinent positives: intermittent left lower abdomen pain, Pertinent negatives: constipation, cramping, diarrhea, dysuria, fever, hematuria, vaginal bleeding, vaginal discharge. Severity of symptoms: in the emergency department the symptoms have improved. Patient also c/o pain to left great toe, bilateral knees, fingers since yesterday. Denies injury. Concerned pain to toe, joints and fingers due to Crohn's disease. Denies fever. 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 - Social history:: Smoking status: Patient denies any tobacco usage or history of. ROS: 16:15 Constitutional: Negative for body aches, chills, fever, poor PO intake. cp 16:15 Cardiovascular: Negative for chest pain, edema, palpitations. cp 16:15 Respiratory: Negative for cough, shortness of breath, wheezing. 16:15 Abdomen/GI: Positive for of the left adnexal, Negative for vomiting, diarrhea, constipation. 16:15 Back: Negative for radiated pain. 16:15 : Positive for urinary frequency, Negative for vaginal bleeding, vaginal discharge. 16:15 MS/extremity: Positive for pain, of the right great toe and bilateral knees and fingers, Negative for injury or acute deformity, decreased range of motion, paresthesias. 16:15 Skin: Negative for rash. 16:15 Neuro: Negative for altered mental status, dizziness, headache, weakness. 16:15 All other systems are negative. Exam: 16:20 Constitutional: The patient appears in no acute distress, alert, awake, comfortable, cp non-toxic, well developed, well nourished. 16:20 Head/Face: Normocephalic, atraumatic. cp 16:20 Eyes: Periorbital structures: appear normal, Conjunctiva: normal, no exudate, no injection, Sclera: no appreciated abnormality, Lids and lashes: appear normal, bilaterally. 16:20 ENT: External ear(s): are unremarkable, Nose: is normal, Mouth: Lips: moist, Oral mucosa: pink and intact, moist, Posterior pharynx: Airway: no evidence of obstruction, patent. 16:20 Neck: ROM/movement: is normal, is supple, without pain, no range of motions limitations. 16:20 Chest/axilla: Inspection: normal. 16:20 Cardiovascular: Rate: normal, Rhythm: regular, Edema: is not appreciated, JVD: is not appreciated. 16:20 Respiratory: the patient does not display signs of respiratory distress, Respirations: normal, no use of accessory muscles, no retractions, labored breathing, is not present, Breath sounds: are clear throughout, no decreased breath sounds, no stridor, no wheezing. 16:20 Abdomen/GI: Inspection: abdomen appears normal, Bowel sounds: active, all quadrants, Palpation: abdomen is soft and non-tender, in all quadrants, rebound tenderness, is not appreciated, involuntary guarding, is not appreciated. 16:20 Back: pain, is absent, ROM is normal. 16:20 Skin: cellulitis, is not appreciated, no rash present. 16:20 Neuro: Orientation: to person, place \T\ time. Mentation: is normal, Motor: moves all fours, strength is normal, Sensation: is normal. Vital Signs: 15:36 BP 142 / 95; Pulse 79; Resp 17; Temp 98.2; Pulse Ox 100% ; Weight 125.19 kg; Height 5 jl7 ft. 3 in. (160.02 cm); Pain 5/10; 16:54 BP 135 / 86; Pulse 77; Resp 17; Pulse Ox 99% on R/A; tw2 18:08 BP 126 / 87; Pulse 71; Resp 17; Pulse Ox 97% on R/A; tw2 15:36 Body Mass Index 48.89 (125.19 kg, 160.02 cm) jl7 MDM: 15:51 Patient medically screened. 18:25 Data reviewed: vital signs, nurses notes, lab test result(s). 18:25 Differential diagnosis: appendicitis, pelvic inflammatory disease, urinary tract cp infection, vaginosis. Counseling: I had a detailed discussion with the patient and/or guardian regarding: the historical points, exam findings, and any diagnostic results supporting the discharge/admit diagnosis, lab results, to return to the emergency department if symptoms worsen or persist or if there are any questions or concerns that arise at home. Response to treatment: the patient's symptoms have markedly improved after treatment, and as a result, I will discharge patient. 06/20 15:54 Order name: Urine Dipstick-Ancillary; Complete Time: 16:20 [facility] 06/20 16:20 Interpretation: Reviewed. 06/20 16:21 Order name: Urine Microscopic Only; Complete Time: 17:44 06/20 16:03 Order name: Urine Dipstick-Ancillary (obtain specimen); Complete Time: 16:03 tw2 06/20 17:04 Order name: SARS RAPID; Complete Time: 18:19 06/20 18:05 Order name: Glucose, Ancillary Testing; Complete Time: 18:19 [facility] 06/20 16:03 Order name: Urine Test (obtain specimen); Complete Time: 16:03 tw2 06/20 17:15 Order name: Labs - recollect needed: recollect rapid covid. wrong swab was used; bd Complete Time: 17:57 06/20 17:45 Order name: Accucheck Blood Glucose; Complete Time: 18:07 cp Administered Medications: No medications were administered Point of Care Testing: Blood Glucose: 18:05 Blood Glucose: 74 mg/dL; tw2 Ranges: Critical Glucose Levels:Adult <50 mg/dl or >400 mg/dl <40 mg/dl or >180 mg/dl Disposition Summary: 06/20/22 18:26 Discharge Ordered Location: Home cp Problem: new cp Symptoms: have improved cp Condition: Stable cp Diagnosis - Frequency of micturition cp - Acute pain, not elsewhere classified - right great toe, bilateral knee, fingers cp Followup: cp - With: Private Physician - When: 1 - 2 days - Reason: Recheck today's complaints Discharge Instructions: - Acute Pain, Adult cp - Discharge Summary Sheet tw2 Forms: - Medication Reconciliation Form cp - Thank You Letter cp - Antibiotic Education cp - Work release form tw2 - Prescription Opioid Use cp Prescriptions: - Ibuprofen 800 mg Oral Tablet - take 1 tablet by ORAL route every 8 hours As needed take with food; 30 tablet; cp Refills: 0, Product Selection Permitted Signatures: Dispatcher [employer] EDMS Jennifer Mulligan Corey, PA PA cp Vielka Tsai, RN RN tw2 Tila Correa RN RN jl7 Corrections: (The following items were deleted from the chart) 17:01 16:24 COVID,FLU,RSV CPL+MR.LAB.BRZ ordered. EDMS EDMS
== END 2022-06-20 18:45 | disposition home or self-care (01) ==
LOC: ER 15:25
DX: R35.0 Frequency of micturition (principal); M25.562 Pain in left knee; M25.561 Pain in right knee; M79.674 Pain in right toe(s); M79.645 Pain in left finger(s); M79.644 Pain in right finger(s); I10 Essential (primary) hypertension; I48.91 Unspecified atrial fibrillation; Z20.822 Contact with and (suspected) exposure to COVID-19; Z79.82 Long term (current) use of aspirin
CPT/HCPCS: 36415; 81003; 81015; 82947; 87811; 99282

== ENCOUNTER 2022-08-11 00:38 | Emergency (ER) | payer OTHER ==
--- OUTSIDE RECORDS SUMMARY | 2022-08-11 00:46 | XMS REPORT | Continuity of Care Document ---
:1975 Author Organization [facility] t Address [address] [place] [address] Care Team Providers Name Role Phone Noemy Lopez Primary Care Physician Noemy Lopez Attending Clinician Unavailable Vanesa Nunez Attending Clinician Unavailable Raissa Tran DO Attending Clinician Noemy Lopez Admitting Clinician Unavailable Payers Payer Name Policy Type Policy Number Effective Date Expiration Date S [place] [address] [id number] 2020 [facility] Health Choice 00:00:[address] [facility] Medica l [facility] C1 [id number] 2020 [facility] Health Choice 00:00:[address] - [facility] Medica [place] [address] [id number] 2020 Common [facility] Health Choice 00:00:[address] - [facility] Medica l Center Problems Condition Condition Condition Status Onset Resolution Last Treating Co mments Source Name Details Category Date Date Treatment Clinician Date [id number] Microcytic Problem Co mmon anemia [facility] [id number] [place], [place] [id number] joint, [facility] knee, - [facility] right [facility] [id number] Sinusitis, Problem Com mon maxillary, [facility] chronic - [facility] [id number] Recurrent Problem Com mon falls [facility] [id number] Balance Problem Commo n problem [facility] Morbid Obesity, Problem Common obesity morbid, [facility] BMI 50 or - [facility] higher [facility] [id number] Crohn's Problem Commo n disease in Spirit remission [facility] [id number] Gastroesop Problem Co mmon hageal [facility] reflux - [facility], [facility] Center specified Iron Iron Problem Common deficiency deficiency Sp jose anemia anemia, - [facility] unspecifie [facility] iron [facility] deficiency Medica l anemia Center type [id number] Adult Problem Common general [facility] medical - [facility] exam [facility] [id number] Hematuria, Problem Com mon unspecifie Spirit d - [facility]I [facility] [id number] Multiple Problem Commo n joint pain [facility] [id number] Urinary Problem Common tract [facility] infection, - [facility] site not [facility] [id number] BMI Problem Common 50.0-59.9, [facility] adult [facility] [id number] Vitamin D Problem Comm on deficiency [facility] [id number] Grieving Problem Comm on [facility] [id number] Seasonal Problem Comm on allergic Spirit rhinitis, - [facility] unspecifie [facility] [id number] Abdominal Problem Com mon bloating [facility] [id number] Crohn's Problem Common disease [facility] gastrointe stinal tract location [id number] Seasonal Problem Commo n allergic [facility] rhinitis - [facility] due to [facility] Mixed Depression Problem Commo n anxiety with Spirit and anxiety - [facility] depressive [facility] High blood High blood Problem C ommon pressure pressure [facility] [id number] Other Problem Common chronic [facility] pain [facility] [id number] Esophageal Problem Com mon stricture [facility] No known No known Disease Unive rs active active ity of problems problems [facility] Allergies, Adverse Reactions, Alerts Allergy Allergy Status Severity Reaction(s) Onset Inactive Treating Comm ents Source Name Type Date Date Clinician No Known DA Active U 2020-09 [facility] 00:00: d 00 [facility] No Known DA Active U 2020-09 [facility] NO KNOWN Drug Active Univers ALLERGIE Class ity of S [facility] Social History Social Habit Start Date Stop Date Quantity Comments Source History of Tobacco Use Co mmon [facility] Sex Assigned At Com mon [facility] Smoking Status Start Date Stop Date Source Unknown if ever smoked [facility] Never Smoker Common [facility] Medications Ordered Filled Start Stop Current Ordering Indication Dosage Frequency Signature Comments Components Source Medication Medication Date Date Medication? Clinician (SIG) Name Name Indomethaci Indomethaci 2021- No 1{capsu Indomethac n 50 MG n 50 MG 06-22 le_with in 50 MG 00:00: 00:00 _food_o 00 :00 r_milk} Indomethaci Indomethaci 2021- No 1{capsu Indomethac n 50 MG n 50 MG 06-2208 le_with in 50 MG 00:00: 00:00 _food_o 00 :00 r_milk} Indomethaci Indomethaci 2021- No 1{capsu Indomethac n 50 MG n 50 MG 06-2208 le_with in 50 MG 00:00: 00:00 _food_o 00 :00 r_milk} Indomethaci Indomethaci 2021- No 1{capsu Indomethac n 50 MG n 50 MG 06-2208 le_with in 50 MG 00:00: 00:00 _food_o 00 :00 r_milk} Telmisartan Telmisartan No 1{table QD Telmisarta 20 MG 20 MG 8-22 t_at_be n 20 MG 00:00: dtime} 00 Telmisartan Telmisartan No 1{table QD Telmisarta 20 MG 20 MG 8-22 t_at_be n 20 MG 00:00: dtime} 00 fluconazole 2022-0 No 1mg 150 mg 7-27 tablet 00:00: 00 nystatin 2021-0 No 10unit/ 100,000 7-27 mL unit/mL 00:00: oral 00 suspension Dose 2021-0 No Unknown 7 00:00: 00 Dose 2-0 No Unknown 7 00:00: 00 Dose 2-0 No Unknown 7 00:00: 00 Augmentin Augmentin 0 2021- No 1{table BID Augmentin 500-125 MG 500-125 MG 03-30 07-13 t} 500-125 MG 00:00: 00:00 00 :00 Sudafed 12 2021-0 No 1mg Hour 120 mg 6-17 tablet,exte 00:00: nded 00 release guaiFENesin guaiFENesin 2021-0 2021- No QID guaiFENesi -Codeine -Codeine 5-04 05-11 n-Codeine 100-10 100-10 00:00: 00:00 100-10 MG/5ML MG/5ML 00 :00 MG/5ML Dose 2021-0 No Unknown 4-29 00:00: 00 Dose 2021-0 No Unknown 4-29 00:00: 00 Dose 2-0 No Unknown 4-29 00:00: 00 Dose 2-0 No Unknown 4-29 00:00: 00 Dose 2021-0 No Unknown 4-29 00:00: 00 Dose 2-0 No Unknown 4-29 00:00: 00 Dose 2022-0 No Unknown 4-29 00:00: 00 Dose 2022-0 No Unknown 4-29 00:00: 00 Dose 2-0 No Unknown 4-29 00:00: 00 Dose 2-0 No Unknown 4-29 00:00: 00 Dose 2-0 No Unknown 4-29 00:00: 00 Dose 2-0 No Unknown 4-29 00:00: 00 Dose 2-0 No Unknown 4-29 00:00: 00 Dose 2-0 No Unknown 4-29 00:00: 00 Dose 2-0 No Unknown 4-29 00:00: 00 Dose 2022-0 No Unknown 4-29 00:00: 00 Dose 2-0 [...] Dose 2-0 No Unknown 01-21 00:00: 00 ProAir HFA 2021-0 No 2mcg/ac [...] 01-21 00:00: 00 Dose 2022-0 No Unknown 4-29 [...] Dose 2022-0 No Unknown 4-29 00:00: 00 Mobic 7.5 Mobic 7.5 2022-0 2022- No 1{table QD Mobic 7.5 MG MG 4-13 05-13 t} MG 00:00: 00:00 00 :00 Mobic 7.5 Mobic 7.5 2-0 2022- No 1{table QD Mobic 7.5 MG MG 4-13 05-13 t} MG 00:00: 00:00 00 :00 Mobic 7.5 Mobic 7.5 2022-0 2022- No 1{table QD Mobic 7.5 MG MG 4-13 05-13 t} MG 00:00: 00:00 00 :00 Dose 2022-0 No Unknown 4-11 00:00: 00 [...] Dose 2022-0 No Unknown 3-16 00:00: 00 Benzonatate Benzonatate 2-0 2- No TID Benzonatat 200 MG 200 MG 2-26 03-08 e 200 MG 00:00: 00:00 00 :00 prednisone 2-0 No mg 20 mg 2-18 tablet 00:00: 00 azithromyci 2-0 No mg n 250 mg 2-18 tablet 00:00: 00 Azithromyci Azithromyci 2-0 2- No QD Azithromyc n 250 MG n 250 MG 1-04 01-09 in 250 MG 00:00: 00:00 00 :00 No known 2020-1 No Univers medications 0-09 ity of 19:54: [address] metoprolol 2020-0 No 1mg tartrate 50 8-10 mg tablet 00:00: 00 omeprazole 2020-0 No 1mg 20 mg 8-10 capsule,del 00:00: ayed 00 release amoxicillin 2020-0 No mg 875 8-04 mg-potassiu 00:00: m 00 clavulanate 125 mg tablet fluticasone 2020-0 No mcg/act propionate 8-04 uation 50 00:00: mcg/actuati 00 on nasal spray,suspe nsion Flonase 50 Flonase 50 2020-0 No 2{spray QD Flonase 50 MCG/ACT MCG/ACT 804 _in_eac MCG/ACT 00:00: h_nostr 00 il} Cetirizine Cetirizine 2020-0 No 1{table Cetirizine HCl 10 MG HCl 10 MG 8-04 t} HCl 10 MG 00:00: 00 Cetirizine Cetirizine 2020-0 No 1{table HCl 10 MG HCl 10 MG 8-04 t} 00:00: 00 Cetirizine Cetirizine 2020-0 No 1{table Cetirizine HCl 10 MG HCl 10 MG 8-04 t} HCl 10 MG 00:00: 00 Cetirizine Cetirizine 2020-0 No 1{table Cetirizine HCl 10 MG HCl 10 MG 8-04 t} HCl 10 MG 00:00: 00 Cetirizine Cetirizine 2020-0 No 1{table Cetirizine HCl 10 MG HCl 10 MG 8-04 t} HCl 10 MG 00:00: 00 Cetirizine Cetirizine 2020-0 No 1{table Cetirizine HCl 10 MG HCl 10 MG 8-04 t} HCl 10 MG 00:00: 00 Cetirizine Cetirizine 2020-0 No 1{table Cetirizine HCl 10 MG HCl 10 MG 8-04 t} HCl 10 MG 00:00: 00 Cetirizine Cetirizine 2020-0 No 1{table Cetirizine HCl 10 MG HCl 10 MG 8-04 t} HCl 10 MG 00:00: 00 Cetirizine Cetirizine 2020-0 No 1{table Cetirizine HCl 10 MG HCl 10 MG 8-04 t} HCl 10 MG 00:00: 00 Cetirizine Cetirizine 2020-0 No 1{table Cetirizine HCl 10 MG HCl 10 MG 8-04 t} HCl 10 MG 00:00: 00 Cetirizine Cetirizine 2020-0 No 1{table Cetirizine HCl 10 MG HCl 10 MG 8-04 t} HCl 10 MG 00:00: 00 Cetirizine Cetirizine 2020-0 No 1{table Cetirizine HCl 10 MG HCl 10 MG 8-04 t} HCl 10 MG 00:00: 00 Cetirizine Cetirizine 0 No 1{table Cetirizine HCl 10 MG HCl 10 MG 8-04 t} HCl 10 MG 00:00: 00 Cetirizine Cetirizine 2020-0 No 1{table Cetirizine HCl 10 MG HCl 10 MG 8-04 t} HCl 10 MG 00:00: 00 Cetirizine Cetirizine 2020-0 No 1{table Cetirizine HCl 10 MG HCl 10 MG 8-04 t} HCl 10 MG 00:00: 00 Cetirizine Cetirizine 2020-0 No 1{table Cetirizine HCl 10 MG HCl 10 MG 8-04 t} HCl 10 MG 00:00: 00 Pantoprazol Pantoprazol 2019-0 Yes Na Lopez 1 tablet Common e Sodium e Sodium 8-10 Spirit 00:00: - [facility] 00 [facility] Ergocalcife Ergocalcife 2018-1 2020- No Na Lopez 1 capsule Common rol rol 1-18 -16 [facility] 00:00: 00:00 - [facility] 00 :00 [facility] Paxil Paxil 2017-0 Yes Na Lopez 1 tablet Comm on 12-26 in the Spirit 00:00: morning - [facility] 00 [facility] PARoxetine PARoxetine No PARoxetine HCl 20 MG HCl 20 MG HCl 20 MG Omeprazole Omeprazole No Omeprazole 40 MG 40 MG 40 MG Augmentin Augmentin No 1{table BID Augmentin 875-125 MG 875-125 MG t} 875-125 MG Meloxicam Meloxicam No Meloxicam 7.5 MG 7.5 MG 7.5 MG Humira Humira No Humira Aspirin 81 Aspirin 81 No Aspirin 81 MG MG MG amLODIPine amLODIPine No 1{table BID amLODIPine Besylate 5 Besylate 5 t} Besylate 5 MG MG MG Lagevrio Lagevrio No 4{capsu BID Lagevrio 200 MG 200 MG les} 200 MG Ergocalcife Ergocalcife No 1{capsu Ergocalcif rol 10048 rol 77886 le} fortunato [address] [facility] Gabapentin Gabapentin No 1{capsu TID Gabapentin 100 MG 100 MG le} 100 MG Omeprazole Omeprazole No 1{capsu QD Omeprazole 40 MG 40 MG le} 40 MG Albuterol Albuterol No 2{puffs Albuterol Sulfate HFA Sulfate HFA } Sulfate 108 (90 108 (90 HFA 108 Base) Base) (90 Base) MCG/ACT MCG/ACT MCG/ACT Gabapentin Gabapentin No Gabapentin 100 MG 100 MG 100 MG Fluticasone Fluticasone No Fluticason Propionate Propionate e 50 MCG/ACT 50 MCG/ACT Propionate 50 MCG/ACT Azithromyci Azithromyci No QD Azithromyc n 250 MG n 250 MG in 250 MG predniSONE predniSONE No QD predniSONE 20 MG 20 MG 20 MG predniSONE predniSONE No QD predniSONE 20 MG 20 MG 20 MG Benzonatate Benzonatate No TID Benzonatat 100 MG 100 MG e 100 MG Montelukast Montelukast No Montelukas Sodium 10 Sodium 10 t Sodium MG MG 10 MG Famotidine Famotidine No Famotidine 40 MG 40 MG 40 MG busPIRone busPIRone No 1{table TID busPIRone HCl 10 MG HCl 10 MG t} HCl 10 MG Paxil 20 MG Paxil 20 MG No 1{table QD Paxil 20 t_in_th MG e_morni ng} ALPRAZolam ALPRAZolam No 1{table ALPRAZolam 0.5 MG 0.5 MG t} 0.5 MG Cetirizine Cetirizine No Cetirizine HCl 10 MG HCl 10 MG HCl 10 MG PARoxetine PARoxetine No PARoxetine HCl 20 MG HCl 20 MG HCl 20 MG Omeprazole Omeprazole No Omeprazole 40 MG 40 MG 40 MG Augmentin Augmentin No 1{table BID Augmentin 875-125 MG 875-125 MG t} 875-125 MG Meloxicam Meloxicam No Meloxicam 7.5 MG 7.5 MG 7.5 MG Azithromyci Azithromyci No QD Azithromyc n 250 MG n 250 MG in 250 MG Aspirin 81 Aspirin 81 No Aspirin 81 MG MG MG amLODIPine amLODIPine No 1{table BID amLODIPine Besylate 5 Besylate 5 t} Besylate 5 MG MG MG Albuterol Albuterol No 2{puffs Albuterol Sulfate HFA Sulfate HFA } Sulfate 108 (90 108 (90 HFA 108 Base) Base) (90 Base) MCG/ACT MCG/ACT MCG/ACT Ergocalcife Ergocalcife No 1{capsu Ergocalcif rol 40194 rol 20186 le} fortunato 116[address] UNIT UNIT UNIT Gabapentin Gabapentin No 1{capsu TID Gabapentin 100 MG 100 MG le} 100 MG Omeprazole Omeprazole No 1{capsu QD Omeprazole 40 MG 40 MG le} 40 MG Humira Humira No Humira Gabapentin Gabapentin No Gabapentin 100 MG 100 MG 100 MG Lagevrio Lagevrio No 4{capsu BID Lagevrio 200 MG 200 MG les} 200 MG predniSONE predniSONE No QD predniSONE 20 MG 20 MG 20 MG Fluticasone Fluticasone No Fluticason Propionate Propionate e 50 MCG/ACT 50 MCG/ACT Propionate 50 MCG/ACT predniSONE predniSONE No QD predniSONE 20 MG 20 MG 20 MG Benzonatate Benzonatate No TID Benzonatat 100 MG 100 MG e 100 MG Montelukast Montelukast No Montelukas Sodium 10 Sodium 10 t Sodium MG MG 10 MG Omeprazole Omeprazole No Omeprazole 40 MG 40 MG 40 MG Gabapentin Gabapentin No 1{capsu TID Gabapentin 100 MG 100 MG le} 100 MG Cetirizine Cetirizine No Cetirizine HCl 10 MG HCl 10 MG HCl 10 MG Famotidine Famotidine No Famotidine 40 MG 40 MG 40 MG Lagevrio Lagevrio No 4{capsu BID Lagevrio 200 MG 200 MG les} 200 MG predniSONE predniSONE No QD predniSONE 20 MG 20 MG 20 MG Albuterol Albuterol No 2{puffs Albuterol Sulfate HFA Sulfate HFA } Sulfate 108 (90 108 (90 HFA 108 Base) Base) (90 Base) MCG/ACT MCG/ACT MCG/ACT Aspirin 81 Aspirin 81 No Aspirin 81 MG MG MG amLODIPine amLODIPine No 1{table BID amLODIPine Besylate 5 Besylate 5 t} Besylate 5 MG MG MG Ergocalcife Ergocalcife No 1{capsu Ergocalcif rol 25075 rol 17052 le} fortunato 70156 UNIT UNIT UNIT Montelukast Montelukast No Montelukas Sodium 10 Sodium 10 t Sodium MG MG 10 MG busPIRone busPIRone No 1{table TID busPIRone HCl 10 MG HCl 10 MG t} HCl 10 MG Paxil 20 MG Paxil 20 MG No 1{table QD Paxil 20 t_in_th MG e_morni ng} predniSONE predniSONE No QD predniSONE 20 MG 20 MG 20 MG Benzonatate Benzonatate No TID Benzonatat 100 MG 100 MG e 100 MG Humira Humira No Humira ALPRAZolam ALPRAZolam No 1{table ALPRAZolam 0.5 MG 0.5 MG t} 0.5 MG Gabapentin Gabapentin No Gabapentin 100 MG 100 MG 100 MG Azithromyci Azithromyci No QD Azithromyc n 250 MG n 250 MG in 250 MG Omeprazole Omeprazole No 1{capsu QD Omeprazole 40 MG 40 MG le} 40 MG Meloxicam Meloxicam No Meloxicam 7.5 MG 7.5 MG 7.5 MG Augmentin Augmentin No 1{table BID Augmentin 875-125 MG 875-125 MG t} 875-125 MG Fluticasone Fluticasone No Fluticason Propionate Propionate e 50 MCG/ACT 50 MCG/ACT Propionate 50 MCG/ACT PARoxetine PARoxetine No PARoxetine HCl 20 MG HCl 20 MG HCl 20 MG Ergocalcife Ergocalcife No 1{capsu Ergocalcif rol 58361 rol 22614 le} fortunato [id number] UNIT UNIT UNIT Famotidine Famotidine No Famotidine 40 MG 40 MG 40 MG Benzonatate Benzonatate No TID Benzonatat 100 MG 100 MG e 100 MG Azithromyci Azithromyci No QD Azithromyc n 250 MG n 250 MG in 250 MG Paxil 20 MG Paxil 20 MG No 1{table QD Paxil 20 t_in_th MG e_morni ng} Humira Humira Yes Na Lopez not Common defined [facility] Aspirin Aspirin Yes Na Lopez not Common defined [facility] BusPIRone BusPIRone Yes Na Lopez 1 tablet Common HCl HCl [facility] Metoprolol Metoprolol Yes Na Lopez 1 tablet Common T[facility] T[facility] Lagevrio Lagevrio No 4{capsu BID Lagevrio 200 MG 200 MG les} 200 MG Montelukast Montelukast No Montelukas Sodium 10 Sodium 10 t Sodium MG MG 10 MG Meloxicam Meloxicam No Meloxicam 7.5 MG 7.5 MG 7.5 MG ALPRAZolam ALPRAZolam No 1{table ALPRAZolam 0.5 MG 0.5 MG t} 0.5 MG Humira Humira No Humira predniSONE predniSONE No QD predniSONE 20 MG 20 MG 20 MG Cetirizine Cetirizine No Cetirizine HCl 10 MG HCl 10 MG HCl 10 MG Albuterol Albuterol No 2{puffs Albuterol Sulfate HFA Sulfate HFA } Sulfate 108 (90 108 (90 HFA 108 Base) Base) (90 Base) MCG/ACT MCG/ACT MCG/ACT Omeprazole Omeprazole No Omeprazole 40 MG 40 MG 40 MG Omeprazole Omeprazole No 1{capsu QD Omeprazole 40 MG 40 MG le} 40 MG predniSONE predniSONE No QD predniSONE 20 MG 20 MG 20 MG PARoxetine PARoxetine No PARoxetine HCl 20 MG HCl 20 MG HCl 20 MG Gabapentin Gabapentin No 1{capsu TID Gabapentin 100 MG 100 MG le} 100 MG Gabapentin Gabapentin No Gabapentin 100 MG 100 MG 100 MG busPIRone busPIRone No 1{table TID busPIRone HCl 10 MG HCl 10 MG t} HCl 10 MG amLODIPine amLODIPine No 1{table BID amLODIPine Besylate 5 Besylate 5 t} Besylate 5 MG MG MG Augmentin Augmentin No 1{table BID Augmentin 875-125 MG 875-125 MG t} 875-125 MG Fluticasone Fluticasone No Fluticason Propionate Propionate e 50 MCG/ACT 50 MCG/ACT Propionate 50 MCG/ACT Aspirin 81 Aspirin 81 No Aspirin 81 MG MG MG Famotidine Famotidine No Famotidine 40 MG 40 MG 40 MG busPIRone busPIRone No 1{table TID busPIRone HCl 10 MG HCl 10 MG t} HCl 10 MG Paxil 20 MG Paxil 20 MG No 1{table QD Paxil 20 t_in_th MG e_morni ng} ALPRAZolam ALPRAZolam No 1{table ALPRAZolam 0.5 MG 0.5 MG t} 0.5 MG Cetirizine Cetirizine No Cetirizine HCl 10 MG HCl 10 MG HCl 10 MG PARoxetine PARoxetine No PARoxetine HCl 20 MG HCl 20 MG HCl 20 MG Omeprazole Omeprazole No Omeprazole 40 MG 40 MG 40 MG Augmentin Augmentin No 1{table BID Augmentin 875-125 MG 875-125 MG t} 875-125 MG Meloxicam Meloxicam No Meloxicam 7.5 MG 7.5 MG 7.5 MG Humira Humira No Humira Aspirin 81 Aspirin 81 No Aspirin 81 MG MG MG amLODIPine amLODIPine No 1{table BID amLODIPine Besylate 5 Besylate 5 t} Besylate 5 MG MG MG Lagevrio Lagevrio No 4{capsu BID Lagevrio 200 MG 200 MG les} 200 MG Ergocalcife Ergocalcife No 1{capsu Ergocalcif rol 76603 rol 15073 le} fortunato 36258 [facility]IT Gabapentin Gabapentin No 1{capsu TID Gabapentin 100 MG 100 MG le} 100 MG Omeprazole Omeprazole No 1{capsu QD Omeprazole 40 MG 40 MG le} 40 MG Albuterol Albuterol No 2{puffs Albuterol Sulfate HFA Sulfate HFA } Sulfate 108 (90 108 (90 HFA 108 Base) Base) (90 Base) MCG/ACT MCG/ACT MCG/ACT Gabapentin Gabapentin No Gabapentin 100 MG 100 MG 100 MG Fluticasone Fluticasone No Fluticason Propionate Propionate e 50 MCG/ACT 50 MCG/ACT Propionate 50 MCG/ACT Azithromyci Azithromyci No QD Azithromyc n 250 MG n 250 MG in 250 MG predniSONE predniSONE No QD predniSONE 20 MG 20 MG 20 MG predniSONE predniSONE No QD predniSONE 20 MG 20 MG 20 MG Benzonatate Benzonatate No TID Benzonatat 100 MG 100 MG e 100 MG Montelukast Montelukast No Montelukas Sodium 10 Sodium 10 t Sodium MG MG 10 MG Famotidine Famotidine No Famotidine 40 MG 40 MG 40 MG busPIRone busPIRone No 1{table TID busPIRone HCl 10 MG HCl 10 MG t} HCl 10 MG Paxil 20 MG Paxil 20 MG No 1{table QD Paxil 20 t_in_th MG e_morni ng} ALPRAZolam ALPRAZolam No 1{table ALPRAZolam 0.5 MG 0.5 MG t} 0.5 MG Cetirizine Cetirizine No Cetirizine HCl 10 MG HCl 10 MG HCl 10 MG PARoxetine PARoxetine No PARoxetine HCl 20 MG HCl 20 MG HCl 20 MG Omeprazole Omeprazole No Omeprazole 40 MG 40 MG 40 MG Augmentin Augmentin No 1{table BID Augmentin 875-125 MG 875-125 MG t} 875-125 MG Meloxicam Meloxicam No Meloxicam 7.5 MG 7.5 MG 7.5 MG Azithromyci Azithromyci No QD Azithromyc n 250 MG n 250 MG in 250 MG Aspirin 81 Aspirin 81 No Aspirin 81 MG MG MG amLODIPine amLODIPine No 1{table BID amLODIPine Besylate 5 Besylate 5 t} Besylate 5 MG MG MG Albuterol Albuterol No 2{puffs Albuterol Sulfate HFA Sulfate HFA } Sulfate 108 (90 108 (90 HFA 108 Base) Base) (90 Base) MCG/ACT MCG/ACT MCG/ACT Ergocalcife Ergocalcife No 1{capsu Ergocalcif rol 55938 rol 55162 le} fortunato 06265 UNIT UNIT UNIT Gabapentin Gabapentin No 1{capsu TID Gabapentin 100 MG 100 MG le} 100 MG Omeprazole Omeprazole No 1{capsu QD Omeprazole 40 MG 40 MG le} 40 MG Humira Humira No Humira Gabapentin Gabapentin No Gabapentin 100 MG 100 MG 100 MG Lagevrio Lagevrio No 4{capsu BID Lagevrio 200 MG 200 MG les} 200 MG predniSONE predniSONE No QD predniSONE 20 MG 20 MG 20 MG Fluticasone Fluticasone No Fluticason Propionate Propionate e 50 MCG/ACT 50 MCG/ACT Propionate 50 MCG/ACT predniSONE predniSONE No QD predniSONE 20 MG 20 MG 20 MG Benzonatate Benzonatate No TID Benzonatat 100 MG 100 MG e 100 MG Montelukast Montelukast No Montelukas Sodium 10 Sodium 10 t Sodium MG MG 10 MG Omeprazole Omeprazole No Omeprazole 40 MG 40 MG 40 MG Omeprazole Omeprazole No 1{capsu QD Omeprazole 40 MG 40 MG le} 40 MG Augmentin Augmentin No 1{table BID Augmentin 875-125 MG 875-125 MG t} 875-125 MG Ergocalcife Ergocalcife No 1{capsu Ergocalcif rol 25307 rol 79515 le} fortunato 17110 UNIT UNIT UNIT Montelukast Montelukast No 1{table Montelukas Sodium 10 Sodium 10 t} t Sodium MG MG 10 MG Gabapentin Gabapentin No Gabapentin 100 MG 100 MG 100 MG busPIRone busPIRone No 1{table TID busPIRone HCl 10 MG HCl 10 MG t} HCl 10 MG Famotidine Famotidine No 1{table QD Famotidine 40 MG 40 MG t_at_be 40 MG dtime_a s_neede d} Humira Humira No Humira Flonase 50 Flonase 50 No 2{spray QD Flonase 50 MCG/ACT MCG/ACT _in_eac MCG/ACT h_nostr il} ALPRAZolam ALPRAZolam No 1{table ALPRAZolam 0.5 MG 0.5 MG t} 0.5 MG Aspirin 81 Aspirin 81 No Aspirin 81 MG MG MG amLODIPine amLODIPine No 1{table QD amLODIPine Besylate 5 Besylate 5 t} Besylate 5 MG MG MG Paxil 20 MG Paxil 20 MG No 1{table QD Paxil 20 t_in_th MG e_morni ng} Omeprazole Omeprazole No 40 MG 40 MG Paxil 20 MG Paxil 20 MG No 1{table QD t_in_th e_morni ng} Omeprazole Omeprazole No 1{capsu QD 40 MG 40 MG le} Augmentin Augmentin No 1{table BID 875-125 MG 875-125 MG t} Ergocalcife Ergocalcife No 1{capsu rol 14786 rol 06919 le} UNIT UNIT Montelukast Montelukast No 1{table Sodium 10 Sodium 10 t} MG MG Gabapentin Gabapentin No 100 MG 100 MG Famotidine Famotidine No 1{table QD 40 MG 40 MG t_at_be dtime_a s_neede d} Fluticasone Fluticasone No Propionate Propionate 50 MCG/ACT 50 MCG/ACT Humira Humira No ALPRAZolam ALPRAZolam No 1{table 0.5 MG 0.5 MG t} busPIRone busPIRone No 1{table TID HCl 10 MG HCl 10 MG t} Aspirin 81 Aspirin 81 No MG MG amLODIPine amLODIPine No 1{table QD Besylate 5 Besylate 5 t} MG MG Flonase 50 Flonase 50 No 2{spray QD MCG/ACT MCG/ACT _in_eac h_nostr il} Omeprazole Omeprazole No Omeprazole 40 MG 40 MG 40 MG Paxil 20 MG Paxil 20 MG No 1{table QD Paxil 20 t_in_th MG e_morni ng} Omeprazole Omeprazole No 1{capsu QD Omeprazole 40 MG 40 MG le} 40 MG Augmentin Augmentin No 1{table BID Augmentin 875-125 MG 875-125 MG t} 875-125 MG Ergocalcife Ergocalcife No 1{capsu Ergocalcif rol 46031 rol 88311 le} fortunato 48978 UNIT UNIT UNIT Montelukast Montelukast No 1{table Montelukas Sodium 10 Sodium 10 t} t Sodium MG MG 10 MG Gabapentin Gabapentin No Gabapentin 100 MG 100 MG 100 MG Famotidine Famotidine No 1{table QD Famotidine 40 MG 40 MG t_at_be 40 MG dtime_a s_neede d} Fluticasone Fluticasone No Fluticason Propionate Propionate e 50 MCG/ACT 50 MCG/ACT Propionate 50 MCG/ACT Humira Humira No Humira ALPRAZolam ALPRAZolam No 1{table ALPRAZolam 0.5 MG 0.5 MG t} 0.5 MG busPIRone busPIRone No 1{table TID busPIRone HCl 10 MG HCl 10 MG t} HCl 10 MG Aspirin 81 Aspirin 81 No Aspirin 81 MG MG MG amLODIPine amLODIPine No 1{table QD amLODIPine Besylate 5 Besylate 5 t} Besylate 5 MG MG MG Flonase 50 Flonase 50 No 2{spray QD Flonase 50 MCG/ACT MCG/ACT _in_eac MCG/ACT h_nostr il} Fluticasone Fluticasone No Fluticason Propionate Propionate e 50 MCG/ACT 50 MCG/ACT Propionate 50 MCG/ACT Augmentin Augmentin No 1{table BID Augmentin 875-125 MG 875-125 MG t} 875-125 MG Montelukast Montelukast No 1{table Montelukas Sodium 10 Sodium 10 t} t Sodium MG MG 10 MG Gabapentin Gabapentin No Gabapentin 100 MG 100 MG 100 MG Flonase 50 Flonase 50 No 2{spray QD Flonase 50 MCG/ACT MCG/ACT _in_eac MCG/ACT h_nostr il} Aspirin 81 Aspirin 81 No Aspirin 81 MG MG MG Ergocalcife Ergocalcife No 1{capsu Ergocalcif rol 03326 rol 71841 le} fortunato 13763 UNIT UNIT UNIT Omeprazole Omeprazole No 1{capsu QD Omeprazole 40 MG 40 MG le} 40 MG Famotidine Famotidine No 1{table QD Famotidine 40 MG 40 MG t_at_be 40 MG dtime_a s_neede d} Gabapentin Gabapentin No 1{capsu TID Gabapentin 100 MG 100 MG le} 100 MG busPIRone busPIRone No 1{table TID busPIRone HCl 10 MG HCl 10 MG t} HCl 10 MG Humira Humira No Humira ALPRAZolam ALPRAZolam No 1{table ALPRAZolam 0.5 MG 0.5 MG t} 0.5 MG Paxil 20 MG Paxil 20 MG No 1{table QD Paxil 20 t_in_th MG e_morni ng} amLODIPine amLODIPine No 1{table BID amLODIPine Besylate 5 Besylate 5 t} Besylate 5 MG MG MG Omeprazole Omeprazole No Omeprazole 40 MG 40 MG 40 MG Gabapentin Gabapentin No Gabapentin 100 MG 100 MG 100 MG Famotidine Famotidine No 1{table QD Famotidine 40 MG 40 MG t_at_be 40 MG dtime_a s_neede d} Augmentin Augmentin No 1{table BID Augmentin 875-125 MG 875-125 MG t} 875-125 MG Gabapentin Gabapentin No 1{capsu TID Gabapentin 100 MG 100 MG le} 100 MG PARoxetine PARoxetine No PARoxetine HCl 20 MG HCl 20 MG HCl 20 MG Aspirin 81 Aspirin 81 No Aspirin 81 MG MG MG Flonase 50 Flonase 50 No 2{spray QD Flonase 50 MCG/ACT MCG/ACT _in_eac MCG/ACT h_nostr il} ALPRAZolam ALPRAZolam No 1{table ALPRAZolam 0.5 MG 0.5 MG t} 0.5 MG Omeprazole Omeprazole No 1{capsu QD Omeprazole 40 MG 40 MG le} 40 MG amLODIPine amLODIPine No 1{table BID amLODIPine Besylate 5 Besylate 5 t} Besylate 5 MG MG MG Omeprazole Omeprazole No Omeprazole 40 MG 40 MG 40 MG Montelukast Montelukast No 1{table Montelukas Sodium 10 Sodium 10 t} t Sodium MG MG 10 MG busPIRone busPIRone No 1{table TID busPIRone HCl 10 MG HCl 10 MG t} HCl 10 MG Ergocalcife Ergocalcife No 1{capsu Ergocalcif rol 16108 rol 83205 le} fortunato [id number] UNIT UNIT UNIT Humira Humira No Humira Fluticasone Fluticasone No Fluticason Propionate Propionate e 50 MCG/ACT 50 MCG/ACT Propionate 50 MCG/ACT Omeprazole Omeprazole No Omeprazole 40 MG 40 MG 40 MG Montelukast Montelukast No 1{table Montelukas Sodium 10 Sodium 10 t} t Sodium MG MG 10 MG amLODIPine amLODIPine No 1{table BID amLODIPine Besylate 5 Besylate 5 t} Besylate 5 MG MG MG Humira Humira No Humira Gabapentin Gabapentin No 1{capsu TID Gabapentin 100 MG 100 MG le} 100 MG Aspirin 81 Aspirin 81 No Aspirin 81 MG MG MG Ergocalcife Ergocalcife No 1{capsu Ergocalcif rol 82073 rol 51435 le} fortunato [id number] UNIT UNIT UNIT Famotidine Famotidine No 1{table QD Famotidine 40 MG 40 MG t_at_be 40 MG dtime_a s_neede d} busPIRone busPIRone No 1{table TID busPIRone HCl 10 MG HCl 10 MG t} HCl 10 MG Flonase 50 Flonase 50 No 2{spray QD Flonase 50 MCG/ACT MCG/ACT _in_eac MCG/ACT h_nostr il} PARoxetine PARoxetine No PARoxetine HCl 20 MG HCl 20 MG HCl 20 MG Omeprazole Omeprazole No 1{capsu QD Omeprazole 40 MG 40 MG le} 40 MG Gabapentin Gabapentin No Gabapentin 100 MG 100 MG 100 MG Fluticasone Fluticasone No Fluticason Propionate Propionate e 50 MCG/ACT 50 MCG/ACT Propionate 50 MCG/ACT ALPRAZolam ALPRAZolam No 1{table ALPRAZolam 0.5 MG 0.5 MG t} 0.5 MG Augmentin Augmentin No 1{table BID Augmentin 875-125 MG 875-125 MG t} 875-125 MG Gabapentin Gabapentin No Gabapentin 100 MG 100 MG 100 MG PARoxetine PARoxetine No PARoxetine HCl 20 MG HCl 20 MG HCl 20 MG Fluticasone Fluticasone No Fluticason Propionate Propionate e 50 MCG/ACT 50 MCG/ACT Propionate 50 MCG/ACT Famotidine Famotidine No 1{table QD Famotidine 40 MG 40 MG t_at_be 40 MG dtime_a s_neede d} Aspirin 81 Aspirin 81 No Aspirin 81 MG MG MG Augmentin Augmentin No 1{table BID Augmentin 875-125 MG 875-125 MG t} 875-125 MG Ergocalcife Ergocalcife No 1{capsu Ergocalcif rol 79933 rol 08991 le} fortunato 49588 UNIT UNIT UNIT busPIRone busPIRone No 1{table TID busPIRone HCl 10 MG HCl 10 MG t} HCl 10 MG Paxil 20 MG Paxil 20 MG No 1{table QD Paxil 20 t_in_th MG e_morni ng} amLODIPine amLODIPine No 1{table BID amLODIPine Besylate 5 Besylate 5 t} Besylate 5 MG MG MG Montelukast Montelukast No 1{table Montelukas Sodium 10 Sodium 10 t} t Sodium MG MG 10 MG ALPRAZolam ALPRAZolam No 1{table ALPRAZolam 0.5 MG 0.5 MG t} 0.5 MG Omeprazole Omeprazole No 1{capsu QD Omeprazole 40 MG 40 MG le} 40 MG Gabapentin Gabapentin No 1{capsu TID Gabapentin 100 MG 100 MG le} 100 MG Flonase 50 Flonase 50 No 2{spray QD Flonase 50 MCG/ACT MCG/ACT _in_eac MCG/ACT h_nostr il} Humira Humira No Humira Omeprazole Omeprazole No Omeprazole 40 MG 40 MG 40 MG Omeprazole Omeprazole No 1{capsu QD Omeprazole 40 MG 40 MG le} 40 MG Aspirin 81 Aspirin 81 No Aspirin 81 MG MG MG Famotidine Famotidine No 1{table QD Famotidine 40 MG 40 MG t_at_be 40 MG dtime_a s_neede d} Augmentin Augmentin No 1{table BID Augmentin 875-125 MG 875-125 MG t} 875-125 MG ALPRAZolam ALPRAZolam No 1{table ALPRAZolam 0.5 MG 0.5 MG t} 0.5 MG Humira Humira No Humira Flonase 50 Flonase 50 No 2{spray QD Flonase 50 MCG/ACT MCG/ACT _in_eac MCG/ACT h_nostr il} Paxil 20 MG Paxil 20 MG No 1{table QD Paxil 20 t_in_th MG e_morni ng} Gabapentin Gabapentin No 1{capsu TID Gabapentin 100 MG 100 MG le} 100 MG Gabapentin Gabapentin No Gabapentin 100 MG 100 MG 100 MG PARoxetine PARoxetine No PARoxetine HCl 20 MG HCl 20 MG HCl 20 MG amLODIPine amLODIPine No 1{table BID amLODIPine Besylate 5 Besylate 5 t} Besylate 5 MG MG MG Fluticasone Fluticasone No Fluticason Propionate Propionate e 50 MCG/ACT 50 MCG/ACT Propionate 50 MCG/ACT Omeprazole Omeprazole No Omeprazole 40 MG 40 MG 40 MG busPIRone busPIRone No 1{table TID busPIRone HCl 10 MG HCl 10 MG t} HCl 10 MG Ergocalcife Ergocalcife No 1{capsu Ergocalcif rol 11391 rol 56523 le} fortunato 99146 UNIT UNIT UNIT Montelukast Montelukast No 1{table Montelukas Sodium 10 Sodium 10 t} t Sodium MG MG 10 MG Omeprazole Omeprazole No 1{capsu QD Omeprazole 40 MG 40 MG le} 40 MG Aspirin 81 Aspirin 81 No Aspirin 81 MG MG MG Famotidine Famotidine No 1{table QD Famotidine 40 MG 40 MG t_at_be 40 MG dtime_a s_neede d} Augmentin Augmentin No 1{table BID Augmentin 875-125 MG 875-125 MG t} 875-125 MG ALPRAZolam ALPRAZolam No 1{table ALPRAZolam 0.5 MG 0.5 MG t} 0.5 MG Humira Humira No Humira Flonase 50 Flonase 50 No 2{spray QD Flonase 50 MCG/ACT MCG/ACT _in_eac MCG/ACT h_nostr il} Paxil 20 MG Paxil 20 MG No 1{table QD Paxil 20 t_in_th MG e_morni ng} Gabapentin Gabapentin No 1{capsu TID Gabapentin 100 MG 100 MG le} 100 MG Gabapentin Gabapentin No Gabapentin 100 MG 100 MG 100 MG PARoxetine PARoxetine No PARoxetine HCl 20 MG HCl 20 MG HCl 20 MG amLODIPine amLODIPine No 1{table BID amLODIPine Besylate 5 Besylate 5 t} Besylate 5 MG MG MG Fluticasone Fluticasone No Fluticason Propionate Propionate e 50 MCG/ACT 50 MCG/ACT Propionate 50 MCG/ACT Omeprazole Omeprazole No Omeprazole 40 MG 40 MG 40 MG busPIRone busPIRone No 1{table TID busPIRone HCl 10 MG HCl 10 MG t} HCl 10 MG Ergocalcife Ergocalcife No 1{capsu Ergocalcif rol 81600 rol 80435 le} fortunato [id number] UNIT UNIT UNIT Montelukast Montelukast No 1{table Montelukas Sodium 10 Sodium 10 t} t Sodium MG MG 10 MG Famotidine Famotidine No 1{table QD Famotidine 40 MG 40 MG t_at_be 40 MG dtime_a s_neede d} Montelukast Montelukast No 1{table Montelukas Sodium 10 Sodium 10 t} t Sodium MG MG 10 MG Gabapentin Gabapentin No 1{capsu TID Gabapentin 100 MG 100 MG le} 100 MG Fluticasone Fluticasone No Fluticason Propionate Propionate e 50 MCG/ACT 50 MCG/ACT Propionate 50 MCG/ACT Gabapentin Gabapentin No Gabapentin 100 MG 100 MG 100 MG Omeprazole Omeprazole No Omeprazole 40 MG 40 MG 40 MG Humira Humira No Humira Omeprazole Omeprazole No 1{capsu QD Omeprazole 40 MG 40 MG le} 40 MG busPIRone busPIRone No 1{table TID busPIRone HCl 10 MG HCl 10 MG t} HCl 10 MG Paxil 20 MG Paxil 20 MG No 1{table QD Paxil 20 t_in_th MG e_morni ng} Aspirin 81 Aspirin 81 No Aspirin 81 MG MG MG ALPRAZolam ALPRAZolam No 1{table ALPRAZolam 0.5 MG 0.5 MG t} 0.5 MG Augmentin Augmentin No 1{table BID Augmentin 875-125 MG 875-125 MG t} 875-125 MG Ergocalcife Ergocalcife No 1{capsu Ergocalcif rol 41049 rol 14850 le} fortunato 51470 UNIT UNIT UNIT Flonase 50 Flonase 50 No 2{spray QD Flonase 50 MCG/ACT MCG/ACT _in_eac MCG/ACT h_nostr il} amLODIPine amLODIPine No 1{table BID amLODIPine Besylate 5 Besylate 5 t} Besylate 5 MG MG MG PARoxetine PARoxetine No PARoxetine HCl 20 MG HCl 20 MG HCl 20 MG Humira Humira No Humira Paxil 20 MG Paxil 20 MG No 1{table QD Paxil 20 t_in_th MG e_morni ng} Augmentin Augmentin No 1{table BID Augmentin 875-125 MG 875-125 MG t} 875-125 MG amLODIPine amLODIPine No 1{table BID amLODIPine Besylate 5 Besylate 5 t} Besylate 5 MG MG MG Flonase 50 Flonase 50 No 2{spray QD Flonase 50 MCG/ACT MCG/ACT _in_eac MCG/ACT h_nostr il} Famotidine Famotidine No 1{table QD Famotidine 40 MG 40 MG t_at_be 40 MG dtime_a s_neede d} predniSONE predniSONE No QD predniSONE 20 MG 20 MG 20 MG Montelukast Montelukast No 1{table Montelukas Sodium 10 Sodium 10 t} t Sodium MG MG 10 MG ALPRAZolam ALPRAZolam No 1{table ALPRAZolam 0.5 MG 0.5 MG t} 0.5 MG Ergocalcife Ergocalcife No 1{capsu Ergocalcif rol 61302 rol 66783 le} fortunato 07800 UNIT UNIT UNIT PARoxetine PARoxetine No PARoxetine HCl 20 MG HCl 20 MG HCl 20 MG Gabapentin Gabapentin No Gabapentin 100 MG 100 MG 100 MG Aspirin 81 Aspirin 81 No Aspirin 81 MG MG MG Meloxicam Meloxicam No Meloxicam 7.5 MG 7.5 MG 7.5 MG Omeprazole Omeprazole No Omeprazole 40 MG 40 MG 40 MG Fluticasone Fluticasone No Fluticason Propionate Propionate e 50 MCG/ACT 50 MCG/ACT Propionate 50 MCG/ACT busPIRone busPIRone No 1{table TID busPIRone HCl 10 MG HCl 10 MG t} HCl 10 MG Omeprazole Omeprazole No 1{capsu QD Omeprazole 40 MG 40 MG le} 40 MG Gabapentin Gabapentin No 1{capsu TID Gabapentin 100 MG 100 MG le} 100 MG Azithromyci Azithromyci No QD Azithromyc n 250 MG n 250 MG in 250 MG Humira Humira No Humira Paxil 20 MG Paxil 20 MG No 1{table QD Paxil 20 t_in_th MG e_morni ng} Augmentin Augmentin No 1{table BID Augmentin 875-125 MG 875-125 MG t} 875-125 MG amLODIPine amLODIPine No 1{table BID amLODIPine Besylate 5 Besylate 5 t} Besylate 5 MG MG MG Flonase 50 Flonase 50 No 2{spray QD Flonase 50 MCG/ACT MCG/ACT _in_eac MCG/ACT h_nostr il} Famotidine Famotidine No 1{table QD Famotidine 40 MG 40 MG t_at_be 40 MG dtime_a s_neede d} predniSONE predniSONE No QD predniSONE 20 MG 20 MG 20 MG Montelukast Montelukast No 1{table Montelukas Sodium 10 Sodium 10 t} t Sodium MG MG 10 MG ALPRAZolam ALPRAZolam No 1{table ALPRAZolam 0.5 MG 0.5 MG t} 0.5 MG Ergocalcife Ergocalcife No 1{capsu Ergocalcif rol 40754 rol 43813 le} fortunato 05521 UNIT UNIT UNIT PARoxetine PARoxetine No PARoxetine HCl 20 MG HCl 20 MG HCl 20 MG Gabapentin Gabapentin No Gabapentin 100 MG 100 MG 100 MG Aspirin 81 Aspirin 81 No Aspirin 81 MG MG MG Meloxicam Meloxicam No Meloxicam 7.5 MG 7.5 MG 7.5 MG Omeprazole Omeprazole No Omeprazole 40 MG 40 MG 40 MG Fluticasone Fluticasone No Fluticason Propionate Propionate e 50 MCG/ACT 50 MCG/ACT Propionate 50 MCG/ACT busPIRone busPIRone No 1{table TID busPIRone HCl 10 MG HCl 10 MG t} HCl 10 MG Omeprazole Omeprazole No 1{capsu QD Omeprazole 40 MG 40 MG le} 40 MG Gabapentin Gabapentin No 1{capsu TID Gabapentin 100 MG 100 MG le} 100 MG Azithromyci Azithromyci No QD Azithromyc n 250 MG n 250 MG in 250 MG Azithromyci Azithromyci No QD Azithromyc n 250 MG n 250 MG in 250 MG Omeprazole Omeprazole No 1{capsu QD Omeprazole 40 MG 40 MG le} 40 MG Gabapentin Gabapentin No 1{capsu TID Gabapentin 100 MG 100 MG le} 100 MG Ergocalcife Ergocalcife No 1{capsu Ergocalcif rol 09907 rol 55497 le} fortunato [id number] UNIT UNIT UNIT Aspirin 81 Aspirin 81 No Aspirin 81 MG MG MG Paxil 20 MG Paxil 20 MG No 1{table QD Paxil 20 t_in_th MG e_morni ng} amLODIPine amLODIPine No 1{table BID amLODIPine Besylate 5 Besylate 5 t} Besylate 5 MG MG MG busPIRone busPIRone No 1{table TID busPIRone HCl 10 MG HCl 10 MG t} HCl 10 MG Meloxicam Meloxicam No Meloxicam 7.5 MG 7.5 MG 7.5 MG predniSONE predniSONE No QD predniSONE 20 MG 20 MG 20 MG Montelukast Montelukast No 1{table Montelukas Sodium 10 Sodium 10 t} t Sodium MG MG 10 MG Famotidine Famotidine No 1{table QD Famotidine 40 MG 40 MG t_at_be 40 MG dtime_a s_neede d} Gabapentin Gabapentin No Gabapentin 100 MG 100 MG 100 MG PARoxetine PARoxetine No PARoxetine HCl 20 MG HCl 20 MG HCl 20 MG Augmentin Augmentin No 1{table BID Augmentin 875-125 MG 875-125 MG t} 875-125 MG Omeprazole Omeprazole No Omeprazole 40 MG 40 MG 40 MG ALPRAZolam ALPRAZolam No 1{table ALPRAZolam 0.5 MG 0.5 MG t} 0.5 MG Fluticasone Fluticasone No Fluticason Propionate Propionate e 50 MCG/ACT 50 MCG/ACT Propionate 50 MCG/ACT Humira Humira No Humira predniSONE predniSONE No QD predniSONE 20 MG 20 MG 20 MG Azithromyci Azithromyci No QD Azithromyc n 250 MG n 250 MG in 250 MG Augmentin Augmentin No 1{table BID Augmentin 875-125 MG 875-125 MG t} 875-125 MG Montelukast Montelukast No 1{table Montelukas Sodium 10 Sodium 10 t} t Sodium MG MG 10 MG Ergocalcife Ergocalcife No 1{capsu Ergocalcif rol 88374 rol 03398 le} fortunato 05923 UNIT UNIT UNIT ALPRAZolam ALPRAZolam No 1{table ALPRAZolam 0.5 MG 0.5 MG t} 0.5 MG Paxil 20 MG Paxil 20 MG No 1{table QD Paxil 20 t_in_th MG e_morni ng} Albuterol Albuterol No 2{puffs Albuterol Sulfate HFA Sulfate HFA } Sulfate 108 (90 108 (90 HFA 108 Base) Base) (90 Base) MCG/ACT MCG/ACT MCG/ACT predniSONE predniSONE No QD predniSONE 20 MG 20 MG 20 MG Lagevrio Lagevrio No 4{capsu BID Lagevrio 200 MG 200 MG les} 200 MG Meloxicam Meloxicam No Meloxicam 7.5 MG 7.5 MG 7.5 MG Famotidine Famotidine No 1{table QD Famotidine 40 MG 40 MG t_at_be 40 MG dtime_a s_neede d} Fluticasone Fluticasone No Fluticason Propionate Propionate e 50 MCG/ACT 50 MCG/ACT Propionate 50 MCG/ACT PARoxetine PARoxetine No PARoxetine HCl 20 MG HCl 20 MG HCl 20 MG Benzonatate Benzonatate No TID Benzonatat 100 MG 100 MG e 100 MG Aspirin 81 Aspirin 81 No Aspirin 81 MG MG MG Omeprazole Omeprazole No Omeprazole 40 MG 40 MG 40 MG Humira Humira No Humira busPIRone busPIRone No 1{table TID busPIRone HCl 10 MG HCl 10 MG t} HCl 10 MG amLODIPine amLODIPine No 1{table BID amLODIPine Besylate 5 Besylate 5 t} Besylate 5 MG MG MG Gabapentin Gabapentin No 1{capsu TID Gabapentin 100 MG 100 MG le} 100 MG Gabapentin Gabapentin No Gabapentin 100 MG 100 MG 100 MG Omeprazole Omeprazole No 1{capsu QD Omeprazole 40 MG 40 MG le} 40 MG predniSONE predniSONE No QD predniSONE 20 MG 20 MG 20 MG Azithromyci Azithromyci No QD Azithromyc n 250 MG n 250 MG in 250 MG Augmentin Augmentin No 1{table BID Augmentin 875-125 MG 875-125 MG t} 875-125 MG Montelukast Montelukast No 1{table Montelukas Sodium 10 Sodium 10 t} t Sodium MG MG 10 MG Ergocalcife Ergocalcife No 1{capsu Ergocalcif rol 67287 rol 90961 le} fortunato [id number] UNIT UNIT UNIT ALPRAZolam ALPRAZolam No 1{table ALPRAZolam 0.5 MG 0.5 MG t} 0.5 MG Paxil 20 MG Paxil 20 MG No 1{table QD Paxil 20 t_in_th MG e_morni ng} Albuterol Albuterol No 2{puffs Albuterol Sulfate HFA Sulfate HFA } Sulfate 108 (90 108 (90 HFA 108 Base) Base) (90 Base) MCG/ACT MCG/ACT MCG/ACT predniSONE predniSONE No QD predniSONE 20 MG 20 MG 20 MG Lagevrio Lagevrio No 4{capsu BID Lagevrio 200 MG 200 MG les} 200 MG Meloxicam Meloxicam No Meloxicam 7.5 MG 7.5 MG 7.5 MG Famotidine Famotidine No 1{table QD Famotidine 40 MG 40 MG t_at_be 40 MG dtime_a s_neede d} Fluticasone Fluticasone No Fluticason Propionate Propionate e 50 MCG/ACT 50 MCG/ACT Propionate 50 MCG/ACT PARoxetine PARoxetine No PARoxetine HCl 20 MG HCl 20 MG HCl 20 MG Benzonatate Benzonatate No TID Benzonatat 100 MG 100 MG e 100 MG Aspirin 81 Aspirin 81 No Aspirin 81 MG MG MG Omeprazole Omeprazole No Omeprazole 40 MG 40 MG 40 MG Humira Humira No Humira busPIRone busPIRone No 1{table TID busPIRone HCl 10 MG HCl 10 MG t} HCl 10 MG amLODIPine amLODIPine No 1{table BID amLODIPine Besylate 5 Besylate 5 t} Besylate 5 MG MG MG Gabapentin Gabapentin No 1{capsu TID Gabapentin 100 MG 100 MG le} 100 MG Gabapentin Gabapentin No Gabapentin 100 MG 100 MG 100 MG Omeprazole Omeprazole No 1{capsu QD Omeprazole 40 MG 40 MG le} 40 MG predniSONE predniSONE No QD predniSONE 20 MG 20 MG 20 MG Azithromyci Azithromyci No QD Azithromyc n 250 MG n 250 MG in 250 MG Augmentin Augmentin No 1{table BID Augmentin 875-125 MG 875-125 MG t} 875-125 MG Montelukast Montelukast No 1{table Montelukas Sodium 10 Sodium 10 t} t Sodium MG MG 10 MG Ergocalcife Ergocalcife No 1{capsu Ergocalcif rol 08560 rol 31387 le} fortunato 07936 UNIT UNIT UNIT ALPRAZolam ALPRAZolam No 1{table ALPRAZolam 0.5 MG 0.5 MG t} 0.5 MG Paxil 20 MG Paxil 20 MG No 1{table QD Paxil 20 t_in_th MG e_morni ng} Albuterol Albuterol No 2{puffs Albuterol Sulfate HFA Sulfate HFA } Sulfate 108 (90 108 (90 HFA 108 Base) Base) (90 Base) MCG/ACT MCG/ACT MCG/ACT predniSONE predniSONE No QD predniSONE 20 MG 20 MG 20 MG Lagevrio Lagevrio No 4{capsu BID Lagevrio 200 MG 200 MG les} 200 MG Meloxicam Meloxicam No Meloxicam 7.5 MG 7.5 MG 7.5 MG Famotidine Famotidine No 1{table QD Famotidine 40 MG 40 MG t_at_be 40 MG dtime_a s_neede d} Fluticasone Fluticasone No Fluticason Propionate Propionate e 50 MCG/ACT 50 MCG/ACT Propionate 50 MCG/ACT PARoxetine PARoxetine No PARoxetine HCl 20 MG HCl 20 MG HCl 20 MG Benzonatate Benzonatate No TID Benzonatat 100 MG 100 MG e 100 MG Aspirin 81 Aspirin 81 No Aspirin 81 MG MG MG Omeprazole Omeprazole No Omeprazole 40 MG 40 MG 40 MG Humira Humira No Humira busPIRone busPIRone No 1{table TID busPIRone HCl 10 MG HCl 10 MG t} HCl 10 MG amLODIPine amLODIPine No 1{table BID amLODIPine Besylate 5 Besylate 5 t} Besylate 5 MG MG MG Gabapentin Gabapentin No 1{capsu TID Gabapentin 100 MG 100 MG le} 100 MG Gabapentin Gabapentin No Gabapentin 100 MG 100 MG 100 MG Omeprazole Omeprazole No 1{capsu QD Omeprazole 40 MG 40 MG le} 40 MG Fluticasone Fluticasone No Fluticason Propionate Propionate e 50 MCG/ACT 50 MCG/ACT Propionate 50 MCG/ACT Montelukast Montelukast No Montelukas Sodium 10 Sodium 10 t Sodium MG MG 10 MG predniSONE predniSONE No QD predniSONE 20 MG 20 MG 20 MG Cetirizine Cetirizine No Cetirizine HCl 10 MG HCl 10 MG HCl 10 MG Albuterol Albuterol No 2{puffs Albuterol Sulfate HFA Sulfate HFA } Sulfate 108 (90 108 (90 HFA 108 Base) Base) (90 Base) MCG/ACT MCG/ACT MCG/ACT Meloxicam Meloxicam No Meloxicam 7.5 MG 7.5 MG 7.5 MG PARoxetine PARoxetine No PARoxetine HCl 20 MG HCl 20 MG HCl 20 MG Lagevrio Lagevrio No 4{capsu BID Lagevrio 200 MG 200 MG les} 200 MG ALPRAZolam ALPRAZolam No 1{table ALPRAZolam 0.5 MG 0.5 MG t} 0.5 MG Augmentin Augmentin No 1{table BID Augmentin 875-125 MG 875-125 MG t} 875-125 MG busPIRone busPIRone No 1{table TID busPIRone HCl 10 MG HCl 10 MG t} HCl 10 MG Azithromyci Azithromyci No QD Azithromyc n 250 MG n 250 MG in 250 MG Paxil 20 MG Paxil 20 MG No 1{table QD Paxil 20 t_in_th MG e_morni ng} Gabapentin Gabapentin No Gabapentin 100 MG 100 MG 100 MG Ergocalcife Ergocalcife No 1{capsu Ergocalcif rol 63691 rol 91360 le} fortunato 05450 UNIT UNIT UNIT Benzonatate Benzonatate No TID Benzonatat 100 MG 100 MG e 100 MG predniSONE predniSONE No QD predniSONE 20 MG 20 MG 20 MG Aspirin 81 Aspirin 81 No Aspirin 81 MG MG MG Humira Humira No Humira amLODIPine amLODIPine No 1{table BID amLODIPine Besylate 5 Besylate 5 t} Besylate 5 MG MG MG Gabapentin Gabapentin No 1{capsu TID Gabapentin 100 MG 100 MG le} 100 MG Omeprazole Omeprazole No 1{capsu QD Omeprazole 40 MG 40 MG le} 40 MG Omeprazole Omeprazole No Omeprazole 40 MG 40 MG 40 MG Famotidine Famotidine No Famotidine 40 MG 40 MG 40 MG Fluticasone Fluticasone No Fluticason Propionate Propionate e 50 MCG/ACT 50 MCG/ACT Propionate 50 MCG/ACT Montelukast Montelukast No Montelukas Sodium 10 Sodium 10 t Sodium MG MG 10 MG predniSONE predniSONE No QD predniSONE 20 MG 20 MG 20 MG Cetirizine Cetirizine No Cetirizine HCl 10 MG HCl 10 MG HCl 10 MG Albuterol Albuterol No 2{puffs Albuterol Sulfate HFA Sulfate HFA } Sulfate 108 (90 108 (90 HFA 108 Base) Base) (90 Base) MCG/ACT MCG/ACT MCG/ACT Meloxicam Meloxicam No Meloxicam 7.5 MG 7.5 MG 7.5 MG PARoxetine PARoxetine No PARoxetine HCl 20 MG HCl 20 MG HCl 20 MG Lagevrio Lagevrio No 4{capsu BID Lagevrio 200 MG 200 MG les} 200 MG ALPRAZolam ALPRAZolam No 1{table ALPRAZolam 0.5 MG 0.5 MG t} 0.5 MG Augmentin Augmentin No 1{table BID Augmentin 875-125 MG 875-125 MG t} 875-125 MG busPIRone busPIRone No 1{table TID busPIRone HCl 10 MG HCl 10 MG t} HCl 10 MG Azithromyci Azithromyci No QD Azithromyc n 250 MG n 250 MG in 250 MG Paxil 20 MG Paxil 20 MG No 1{table QD Paxil 20 t_in_th MG e_morni ng} Gabapentin Gabapentin No Gabapentin 100 MG 100 MG 100 MG Ergocalcife Ergocalcife No 1{capsu Ergocalcif rol 37025 rol 55146 le} fortunato 51824 UNIT UNIT UNIT Benzonatate Benzonatate No TID Benzonatat 100 MG 100 MG e 100 MG predniSONE predniSONE No QD predniSONE 20 MG 20 MG 20 MG Aspirin 81 Aspirin 81 No Aspirin 81 MG MG MG Humira Humira No Humira amLODIPine amLODIPine No 1{table BID amLODIPine Besylate 5 Besylate 5 t} Besylate 5 MG MG MG Gabapentin Gabapentin No 1{capsu TID Gabapentin 100 MG 100 MG le} 100 MG Omeprazole Omeprazole No 1{capsu QD Omeprazole 40 MG 40 MG le} 40 MG Omeprazole Omeprazole No Omeprazole 40 MG 40 MG 40 MG Famotidine Famotidine No Famotidine 40 MG 40 MG 40 MG Ergocalcife Ergocalcife No 1{capsu Ergocalcif rol 51698 rol 84452 le} fortunato 26956 UNIT UNIT UNIT Famotidine Famotidine No Famotidine 40 MG 40 MG 40 MG Benzonatate Benzonatate No TID Benzonatat 100 MG 100 MG e 100 MG Azithromyci Azithromyci No QD Azithromyc n 250 MG n 250 MG in 250 MG Paxil 20 MG Paxil 20 MG No 1{table QD Paxil 20 t_in_th MG e_morni ng} Lagevrio Lagevrio No 4{capsu BID Lagevrio 200 MG 200 MG les} 200 MG Montelukast Montelukast No Montelukas Sodium 10 Sodium 10 t Sodium MG MG 10 MG Meloxicam Meloxicam No Meloxicam 7.5 MG 7.5 MG 7.5 MG ALPRAZolam ALPRAZolam No 1{table ALPRAZolam 0.5 MG 0.5 MG t} 0.5 MG Humira Humira No Humira predniSONE predniSONE No QD predniSONE 20 MG 20 MG 20 MG Cetirizine Cetirizine No Cetirizine HCl 10 MG HCl 10 MG HCl 10 MG Albuterol Albuterol No 2{puffs Albuterol Sulfate HFA Sulfate HFA } Sulfate 108 (90 108 (90 HFA 108 Base) Base) (90 Base) MCG/ACT MCG/ACT MCG/ACT Omeprazole Omeprazole No Omeprazole 40 MG 40 MG 40 MG Omeprazole Omeprazole No 1{capsu QD Omeprazole 40 MG 40 MG le} 40 MG predniSONE predniSONE No QD predniSONE 20 MG 20 MG 20 MG PARoxetine PARoxetine No PARoxetine HCl 20 MG HCl 20 MG HCl 20 MG Gabapentin Gabapentin No 1{capsu TID Gabapentin 100 MG 100 MG le} 100 MG Gabapentin Gabapentin No Gabapentin 100 MG 100 MG 100 MG busPIRone busPIRone No 1{table TID busPIRone HCl 10 MG HCl 10 MG t} HCl 10 MG amLODIPine amLODIPine No 1{table BID amLODIPine Besylate 5 Besylate 5 t} Besylate 5 MG MG MG Augmentin Augmentin No 1{table BID Augmentin 875-125 MG 875-125 MG t} 875-125 MG Fluticasone Fluticasone No Fluticason Propionate Propionate e 50 MCG/ACT 50 MCG/ACT Propionate 50 MCG/ACT Aspirin 81 Aspirin 81 No Aspirin 81 MG MG MG Ergocalcife Ergocalcife No 1{capsu Ergocalcif rol 04826 rol 04232 le} fortunato 07684 UNIT UNIT UNIT Famotidine Famotidine No Famotidine 40 MG 40 MG 40 MG Benzonatate Benzonatate No TID Benzonatat 100 MG 100 MG e 100 MG Azithromyci Azithromyci No QD Azithromyc n 250 MG n 250 MG in 250 MG Paxil 20 MG Paxil 20 MG No 1{table QD Paxil 20 t_in_th MG e_morni ng} Lagevrio Lagevrio No 4{capsu BID Lagevrio 200 MG 200 MG les} 200 MG Montelukast Montelukast No Montelukas Sodium 10 Sodium 10 t Sodium MG MG 10 MG Meloxicam Meloxicam No Meloxicam 7.5 MG 7.5 MG 7.5 MG ALPRAZolam ALPRAZolam No 1{table ALPRAZolam 0.5 MG 0.5 MG t} 0.5 MG Humira Humira No Humira predniSONE predniSONE No QD predniSONE 20 MG 20 MG 20 MG Cetirizine Cetirizine No Cetirizine HCl 10 MG HCl 10 MG HCl 10 MG Albuterol Albuterol No 2{puffs Albuterol Sulfate HFA Sulfate HFA } Sulfate 108 (90 108 (90 HFA 108 Base) Base) (90 Base) MCG/ACT MCG/ACT MCG/ACT Omeprazole Omeprazole No Omeprazole 40 MG 40 MG 40 MG Omeprazole Omeprazole No 1{capsu QD Omeprazole 40 MG 40 MG le} 40 MG predniSONE predniSONE No QD predniSONE 20 MG 20 MG 20 MG PARoxetine PARoxetine No PARoxetine HCl 20 MG HCl 20 MG HCl 20 MG Gabapentin Gabapentin No 1{capsu TID Gabapentin 100 MG 100 MG le} 100 MG Gabapentin Gabapentin No Gabapentin 100 MG 100 MG 100 MG busPIRone busPIRone No 1{table TID busPIRone HCl 10 MG HCl 10 MG t} HCl 10 MG amLODIPine amLODIPine No 1{table BID amLODIPine Besylate 5 Besylate 5 t} Besylate 5 MG MG MG Augmentin Augmentin No 1{table BID Augmentin 875-125 MG 875-125 MG t} 875-125 MG Fluticasone Fluticasone No Fluticason Propionate Propionate e 50 MCG/ACT 50 MCG/ACT Propionate 50 MCG/ACT Aspirin 81 Aspirin 81 No Aspirin 81 MG MG MG Famotidine Famotidine No Famotidine 40 MG 40 MG 40 MG busPIRone busPIRone No 1{table TID busPIRone HCl 10 MG HCl 10 MG t} HCl 10 MG Paxil 20 MG Paxil 20 MG No 1{table QD Paxil 20 t_in_th MG e_morni ng} ALPRAZolam ALPRAZolam No 1{table ALPRAZolam 0.5 MG 0.5 MG t} 0.5 MG Cetirizine Cetirizine No Cetirizine HCl 10 MG HCl 10 MG HCl 10 MG Vital Signs Vital Name Observation Time Observation Value Comments Source height 2022-06-22 10:20:00 63 [in_i] [facility] weight 2022-06-22 10:20:00 276 [lb_av] [facility] bmi 2022-06-22 10:20:00 48.89 kg/m2 [facility] height 2022-04-26 17:00:00 63 [in_i] [facility] weight 2022-04-26 17:00:00 279 [lb_av] [facility] temperature 2022-04-26 17:00:00 97.9 [degF] [facility] bmi 2022-04-26 17:00:00 49.42 kg/m2 [facility] height 2022-01-05 14:00:00 63 [in_i] [facility] weight 2022-01-05 14:00:00 297 [lb_av] [facility] bmi 2022-01-05 14:00:00 52.61 kg/m2 [facility] blood pressure 2022-01-05 14:00:00 148 mm[Hg] [facility] blood pressure 2022-01-05 14:00:00 102 mm[Hg] [facility] diastolic [facility] height 2021-12-28 16:00:00 63 [in_i] [facility] weight 2021-12-28 16:00:00 300.4 [lb_av] [facility] temperature 2021-12-28 16:00:00 97.3 [degF] [facility] bmi 2021-12-28 16:00:00 53.21 kg/m2 [facility] oximetry 2021-12-28 16:00:00 100 % [facility] respiratory rate 2021-12-28 16:00:00 18 /min Comm on [facility] blood pressure 2021-12-28 16:00:00 137 mm[Hg] [facility] - systolic [facility] blood pressure 2021-12-28 16:00:00 83 mm[Hg] Common [facility] - diastolic [facility] height 2021-09-28 09:40:00 63 [in_i] [facility] weight 2021-09-28 09:40:00 283 [lb_av] [facility] temperature 2021-09-28 09:40:00 97.9 [degF] [facility] bmi 2021-09-28 09:40:00 50.13 kg/m2 [facility] height 2021-08-02 10:00:00 63 [in_i] [facility] weight 2021-08-02 10:00:00 282.6 [lb_av] [facility] temperature 2021-08-02 10:00:00 97.0 [degF] [facility] bmi 2021-08-02 10:00:00 50.05 kg/m2 [facility] oximetry 2021-08-02 10:00:00 97 % [facility] respiratory rate 2021-08-02 10:00:00 16 /min Comm on [facility] blood pressure 2021-08-02 10:00:00 140 mm[Hg] [facility] systolic [facility] blood pressure 2021-08-02 10:00:00 62 mm[Hg] [facility] diastolic [facility] Systolic blood 2021-07-04 00:50:00 180 mm[Hg] Univer sity of pressure [facility] Diastolic blood 2021-07-04 00:50:00 110 mm[Hg] Unive rsity of [facility] Heart rate 2021-07-04 00:50:00 79 /min [facility] Body temperature 2021-07-04 00:50:00 36.67 Gem [facility] Respiratory rate 2021-07-04 00:50:00 18 /min [facility] Body weight 2021-07-04 00:50:00 121.564 kg [facility] Oxygen saturation in 2021-07-04 00:50:00 99 /min [facility] Arterial blood by [facility] Pulse oximetry [facility] BP Systolic 2022-01-21 14:32:00 BP Diastolic 2022-01-21 14:32:00 Weight Measured 2022-01-21 14:32:00 276.00 pounds Height Measured 2022-01-21 14:32:00 63.00 inches Body Temperature 2022-01-21 14:32:00 Heart Rate 2022-01-21 14:32:00 Respiratory Rate 2022-01-21 14:32:00 Procedures Procedure Date / Time Performed Performing Clinician Sour e XR CHEST 1 VW 2021-07-04 01:14:37 Raissa Tran [facility] NOTICE OF PRIVACY 2021-07-04 00:45:31 Doctor Unassigned, No [facility] PRACTICES Name [facility] CONSENT/REFUSAL FOR 2021-07-04 00:45:10 [facility] TREATMENT Plan of Care Planned Activity Planned Date Details Comments Source Goal Plan of Care Note [code = 00678-7] Goal Plan of Care Note [code = 23442-2] Goal Plan of Care Note [code = 97592-9] Goal Plan of Care Note [code = 14659-3] Goal Plan of Care Note [code = 26327-9] Goal Plan of Care Note [code = 49776-2] Goal Plan of Care Note [code = 50608-8] Encounters Start End Encounter Admission Attending Care Care Encounter Source Date/Time Date/Time Type Type Clinicians Facility Department ID 2022-06[facility]01 [id number] Common 09:18:00 [id number] [facility] 2022-04-13 Outpatient Lopez, Na STLMLC STLMLC [id number] 2 Common 15:29:00 [facility] 2022-04-07 Outpatient Lopez, Na STLMLC STLMLC [id number] 2 Common 16:07:00 [facility] 2022-01-04 Outpatient Lopez, Na STLMLC STLMLC [id number] 2 Common 09:31:01 [facility] 2021-10-20 Outpatient Lopez, Na STLMLC STLMLC [id number] 2 Common 14:09:55 [id number] [facility] 2021-10-20 Outpatient Lopez, Na STLMLC STLMLC [id number] 2 Common 13:47:22 [id number] [facility] 2021-10-20 Outpatient Lopez, Na STLMLC STLMLC [id number] 2 Common 12:29:04 [id number] [facility] 2021-10-20 Outpatient Lopez, Na STLMLC STLMLC [id number] 2 Common 12:03:44 [id number] [facility] 2021-10-20 Outpatient Lopez, Na STLMLC STLMLC [id number] 2 Common 12:03:05 [id number] [facility] 2021-10-20 Outpatient Lopez, Na STLMLC STLMLC [id number] 2 Common 11:43:49 [id number] [facility] 2021-10-20 Outpatient Lopez, Na STLMLC STLMLC [id number] 2 Common 11:35:56 [id number] [facility] 2021-10-20 Outpatient Lpoez, Na STLMLC STLMLC [id number] 2 Common 11:18:09 [id number] [facility] 2021-10-20 Outpatient Lopez, Na STLMLC STLMLC [id number] 2 Common 11:04:54 [id number] [facility] 2021-10-20 Outpatient Lopez, Na STLMLC STLMLC [id number] 2 Common 11:04:25 [id number] [facility] 2022-07-20 2022-07-20 (TEL) STLMLC STLMLC [id number] Co mmon 00:00:00 00:00:00 [facility] 2022-06-29 2022-06-29 (TEL) STLMLC STLMLC [id number] Co mmon 00:00:00 00:00:00 [facility] 2022-06-22 2022-06-22 OFFICE STLMLC STLMLC [id number] Co mmon 00:00:00 00:00:00 VISIT EST Spir it PT LEVEL 3 [facility] 2022-06-20 2022-06-20 (TEL) STLMLC STLMLC [id number] Co mmon 00:00:00 00:00:00 [facility] 2022-06-03 2022-06-03 OFFICE STLMLC STLMLC [id number] Co mmon 00:00:00 00:00:00 VISIT EST Spir it PT LEVEL 3 [facility] 2022-05-16 2022-05-16 (TEL) STLMLC STLMLC [id number] Co mmon 00:00:00 00:00:00 [facility] 2022-05-16 2022-05-16 OFFICE STLMLC STLMLC [id number] Co mmon 00:00:00 00:00:00 VISIT EST Spir it PT LEVEL 3 [facility] 2022-04-27 2022-04-27 (TEL) STLMLC STLMLC [id number] Co mmon 00:00:00 00:00:00 [facility] 2022-04-26 2022-04-26 (TEL) STLMLC STLMLC [id number] Co mmon 00:00:00 00:00:00 [facility] 2022-04-26 2022-04-26 OFFICE STLMLC STLMLC [id number] Co mmon 00:00:00 00:00:00 VISIT EST Spir it PT LEVEL 3 [facility] 2022-04-20 2022-04-20 Outpatient [id number] 00:00:00 00:00:00 Visit [id number] 2022-03-30 2022-03-30 OFFICE STLMLC STLMLC [id number] Co mmon 00:00:00 00:00:00 VISIT [facility] PT - CHI LEVEL 4 [facility] 2022-02-14 2022-02-14 (TEL) STLMLC STLMLC [id number] Co mmon 00:00:00 00:00:00 [facility] 2022-01-27 2022-01-27 OFFICE STLMLC STLMLC [id number] Co mmon 00:00:00 00:00:00 VISIT EST Spir it PT LEVEL 3 - CHI [facility] 2022-01-26 2022-01-26 (TEL) STLMLC STLMLC [id number] Co mmon 00:00:00 00:00:00 [facility] 2022-01-18 2022-01-18 (TEL) STLMLC STLMLC [id number] Co mmon 00:00:00 00:00:00 [facility] 2022-01-05 2022-01-05 OFFICE STLMLC STLMLC [id number] Co mmon 00:00:00 00:00:00 VISIT NEW Spir it PT LEVEL 3 - CHI [facility] 2021-12-28 2021-12-28 OFFICE STLMLC STLMLC [id number] Co mmon 00:00:00 00:00:00 VISIT [facility] PT - CHI LEVEL 4 [facility] 2021-11-15 2021-11-15 (TEL) STLMLC STLMLC [id number] Co mmon 00:00:00 00:00:00 [facility] 2021-11-11 2021-11-11 (TEL) STLMLC STLMLC [id number] Co mmon 00:00:00 00:00:00 [facility] 2021-09-28 2021-09-28 OFFICE STLMLC STLMLC [id number] Co mmon 00:00:00 00:00:00 VISIT [facility] ESTAB PT - CHI LEVEL 4 [facility] 2021-08-27 2021-08-27 (TEL) STLMLC STLMLC [id number] Co mmon 00:00:00 00:00:00 [facility] 2021-08-04 2021-08-04 (TEL) STLMLC STLMLC [id number] Co mmon 00:00:00 00:00:00 [facility] 2021-08-02 2021-08-02 OFFICE STLMLC STLMLC [id number] Co mmon 00:00:00 00:00:00 VISIT [facility] LEVEL 4 [facility] 2021-07-22 2021-07-22 Outpatient Vanesa Cheung HCAPM RADI LA0 [id number] [facility] 08:00:00 08:00:00 63 [facility] 2021-07-03 2021-07-03 Emergency Marc, [facility] [id number] Univers 19:47:00 21:16:00 Raissa Alvarez [id number] ity [facility] [id number] [facility] [id number] [place] [id number] [place] 2021-07-03 2021-07-03 Emergency X [facility] ERT [id number] Univers 19:47:00 19:47:00 ity [facility] 2021-06-07 2021-06-07 Outpatient STLMLC STLMLC [id number] Common 00:00:00 00:00:00 [facility] 2021-05-06 2021-05-06 Outpatient STLMLC STLMLC [id number] Common 00:00:00 00:00:00 [facility] 2021-04-28 2021-04-28 Outpatient STLMLC STLMLC [id number] Common 00:00:00 00:00:00 [facility] 2021-04-27 2021-04-27 Outpatient STLMLC STLMLC [id number] Common 00:00:00 00:00:00 [facility] 2021-03-15 2021-03-15 Outpatient STLMLC STLMLC [id number] Common 00:00:00 00:00:00 [facility] 2021-01-04 2021-01-04 Outpatient STLMLC STLMLC [id number] Common 00:00:00 00:00:00 [facility] 2020-11-03 2020-11-03 Outpatient STLMLC STLMLC [id number] Common 00:00:00 00:00:00 [facility] 2020-08-03 2020-08-03 Outpatient STLMLC STLMLC [id number] Common 00:00:00 00:00:00 [facility] 2020-05-04 2020-05-04 [facility] [id number] Common 10:10:00 10:10:[address] [facility] 2020-05-01 2020-05-01 [facility] [id number] Common 09:40:00 09:40:[address] [facility] 2020-02-19 2020-02-19 [facility] [id number] Common 16:06:00 16:06:[address] [facility] 2019-12-12 2019-12-12 [facility] [id number] Common 15:41:00 15:41:[address] [facility] 2019-09-16 2019-09-16 [facility] [id number] Common 14:40:00 14:40:[address] [facility] 2019-08-15 2019-08-15 [facility] [id number] Common 09:27:00 09:27:[address] [facility] 2019-08-12 2019-08-12 [facility] [id number] Common 09:00:00 09:00:[address] [facility] 2019-07-31 2019-07-31 [facility] [id number] Common 11:46:00 11:46:[address] [facility] 2019-07-29 2019-07-29 [facility] [id number] Common 09:40:00 09:40:[address] [facility] 2019-06-02 2019-06-02 [facility] [id number] Common 09:38:00 09:38:00 [facility] 2019-05-31 2019-05-31 [facility] [id number] Common 11:30:00 11:30:00 [facility] 2018-01-19 2018-01-19 [facility] [id number] Common 08:11:00 08:11:[address] [facility] 2018-01-18 2018-01-18 [facility] [id number] Common 10:15:00 10:15:[address] [facility] 2017-12-26 2017-12-26 [facility] [id number] Common 09:30:00 09:30:[address] [facility] Results Test Description Test Time Test Comments Results Result Comments Source SARS-CoV-2 (COVID-19), RT-PCR/TMA 2021-12-10 07:26:55 Test Item Value Reference Range Interpretation Comme nts SARS-CoV-2 INTERPRETATION NEGATIVE SEE NOTE S ARS-CoV-2 RNA NOT (test code = 28551) DETECTED Negative results do not preclude SARS-C [...] ORDER CODE 3509. SOURCE (test code = 20065) NASOPHARYNGEAL Note: Methodology is Plan A Drinkas Real-Time RT-PC R. The expected result or refer ence range is NEGATIVE (Not D etected). For more information reg arding COVID-19 testing to incl ude clinicalinforma tion, methodology detail, intende d use, FDA authorization a ndrecommended fact sheets for carlos ents or healthcare providers, see [facility] Announcement: S ARS-CoV-2 (COVID-19) by N AAT at URL below (note,fact shee ts are provided by method given in report:https:// www.[employer]/cl inicians/client -communications/ Alternatively, see downloadable PDF fact sheet at:https://www. [employer]/COVID- 19-RT-PCR UNLES S OTHERWISE INDICATED, ALL TESTING PERFORMED ATCLINICAL PATH [facility] [place] [address] 4 BITE BLOCK MAKER: PRUDENCE SOLIS M.D. CLIA NUMBER [id number] CAP ACCREDITATION N O. [id number] SARS-CoV-2 (COVID-19) by RT-PCR (HIGH RISK)2021-12-10 00:00:00 Test Item Value Reference Range Interpretation Comments SARS-CoV-2 INTERPRETATION NEGATIVE (test code = 45515) SOURCE (test code = 49919) NASOPHARYNGEAL Lipid Panel w/ Chol/HDL [id number] 00:00:00 Test Item Value Reference Range Interpretation Comments Cholesterol, Total (test code = 2093-3) 186 100-199 Triglycerides (test code = 2571-8) 86 0-149 HDL Cholesterol (test code = 2085-9) 59 >39 T. Chol/HDL Ratio (test code = 9830-1) 3.2 0.0-4.4 JOSÉ w/Reflex if [id number] 00:00:00 Test Item Value Reference Range Interpretation Comments JOSÉ Direct (test code = 8061-4) Negative Negative Comp. Metabolic Panel (14) (CMP)2021-08-02 00:00:00 Test Item Value Reference Range Interpretation Comments Glucose (test code = 2345-7) 75 65-99 BUN (test code = 3094-0) 10 6-24 Creatinine (test code = 2160-0) 0.74 0.57-1.00 eGFR If NonAfricn Am (test code = 97 >59 50094-0) eGFR If Africn Am (test code = 51972-3) 112 >59 BUN/Creatinine Ratio (test code = 14 06-17 3097-3) Sodium (test code = 2951-2) 141 134-144 Potassium (test code = 2823-3) 3.7 3.5-5.2 Chloride (test code = 2075-0) 102 96-106 Carbon Dioxide, Total (test code = 2028-05) Calcium (test code = 74155-3) 9.6 8.7-10.2 Protein, Total (test code = 2885-2) 8.8 6.0-8.5 Albumin (test code = 1751-7) 4.6 3.8-4.8 Globulin, Total (test code = 47023-0) 4.2 1.5-4.5 A/G Ratio (test code = 1759-0) 1.1 1.2-2.2 Bilirubin, Total (test code = 1974-2) 0.6 0.0-1.2 Alkaline Phosphatase (test code = 76 44-121 6768-6) AST (SGOT) (test code = 1920-8) 20 0-40 ALT (SGPT) (test code = 1742-6) 19 0-32 CBC With Differential/[id number] 00:00:00 Test Item Value Reference Range Interpretation Comments WBC (test code = 6690-2) 11.7 3.4-10.8 RBC (test code = 789-8) 5.20 3.77-5.28 Hemoglobin (test code = 718-7) 12.7 11.1-15.9 Hematocrit (test code = 4544-3) 42.0 34.0-46.6 MCV (test code = 787-2) 81 79-97 MCH (test code = 785-6) 24.4 26.6-33.0 MCHC (test code = 786-4) 30.2 31.5-35.7 RDW (test code = 788-0) 15.2 11.7-15.4 Platelets (test code = 777-3) 386 150-450 Neutrophils (test code = 770-8) 57 Not Estab. Lymphs (test code = 736-9) 36 Not Estab. Monocytes (test code = 5905-5) 7 Not Estab. Eos (test code = 713-8) 0 Not Estab. Basos (test code = 706-2) 0 Not Estab. Immature Cells (test code = UNLOINC) Neutrophils (Absolute) (test code = 6.5 1.4-7.0 751-8) Lymphs (Absolute) (test code = 731-0) 4.2 0.7-3.1 Monocytes(Absolute) (test code = 742-7) 0.9 0.1-0.9 Eos (Absolute) (test code = 711-2) 0.0 0.0-0.4 Baso (Absolute) (test code = 704-7) 0.0 0.0-0.2 Immature Granulocytes (test code = 0 Not Estab. 76303-2) Immature Grans (Abs) (test code = 0.0 0.0-0.1 46283-3) NRBC (test code = 60375-5) Hematology Comments: (test code = 30932-8) Rheumatoid Arthritis [id number] 00:00:00 Test Item Value Reference Range Interpretation Comments Rheumatoid Factor (RF) (test code = <10.0 0.0-13.9 07686-8) C-Reactive Protein, Quant (CRP)2021-08-02 00:00:00 Test Item Value Reference Range Interpretation Comments C-Reactive Protein, Quant (test code = 13 0-10 1987-) Vitamin D, 66-[id number] 00:00:00 Test Item Value Reference Range Interpretation Comments Vitamin D, 25-Hydroxy (test code = 24.0 30.0-100.0 1988-) - CT ABD PELVIS [id number] 09:50:00 [facility] 1975 Sex: F Name: SHE GUARDADO [facility] : 1975 Age/S: 46 / F [address] Unit #: [id number] Loc: [place] [address] Phys: Vanesa Nunez MD Acct: [id number] Dis Date: Status: REG CLI PHONE #: [phone] Exam Date: 07/22/2021917 FAX #: Reason: CROHNS DISEASE, UNSPECIFIED, WITHOUT COMPLICATI E XAMS: CPT: [id number] CT ABD PELVIS W/CONT 61797 HISTORY: CROHN'S DISEASE, UNSPECIFIED, WITHOUT COMPLICATIONS TECHNIQUE: Helical imaging of the abdomen and pelvis is performed with intravenous contrast. Approximately 100 mL of intravenous contrast was administered. No oral contrast is administered. Sag ittal and coronal reconstructions reviewed. CT DLP dose: [...] GUARDADO : 1975 Age/S: 46 / F [address] Unit #: [id number]: Krys St[place] [id number] Phys: Vanesa Nunez MD Acct: [id number] Dis Date: Status: REG CLI PHONE #: Exam Date: 07/22/2021917 FAX #: Reason: CROHNS DISEASE, UNSPECIFIED, WITHOUT COMPLICATI EXAMS: CPT: [id number] CT ABD PELVIS W/CONT 48394 (Continued) IMPRESSION: 1. There is mild diffuse [...] Ryan, RT(R) CTDI: DLP: Trnscb Date/Time:07/22/2021 (0950) [email or web address] Orig Print D/T: S: 07/22/2021 (7053) PAGE 2 Signed [id number] 08:27:00 Test Item Value Reference Range Interpretation Comments ISTAT-BUN (test code = BUNP) 8 mg/dL 8-26 N BEDSIDE [id number] 08:27:00 Test Item Value Reference Range Interpretation Comments BEDSIDE CREATININE (test code = 0.6 mg/dL 0.6-1.3 N CREATBED) SARS-COV-2 (COVID19), NAAT [ADDED]2020-10-02 00:00:00 Test Item Value Reference Range Interpretation Comments SARS-CoV-2 INTERPRETATION (test NEGATIVE code = 73452) SOURCE (test code = 62789) NOT SPECIFIED SARS-CoV-2 (COVID-19) by RT-PCR (HIGH RISK)2020-04-17 00:00:00 Test Item Value Reference Range Interpretation Comments SARS-CoV-2 INTERPRETATION (test NEGATIVE code = 91035) SOURCE (test code = 54062) NOT SPECIFIED
[2022-08-11] MEDS ORDERED: FAMOTIDINE 20 MG/2 ML VIAL IV ONE (02:43)
[2022-08-11] MEDS ORDERED: MORPHINE 4 MG/ML SYR ONE (02:43)
[2022-08-11] MEDS ORDERED: ONDANSETRON 4 MG/2 ML VIAL ONE (02:43)
[2022-08-11] MEDS ORDERED: NA CHLORIDE 0.9% 1,000 ML ONE (02:43)
[2022-08-11 03:45] LABS: Absolute Lymphocytes (CBC) 3.3 K/uL (0.7-4.9); Lymphocytes % 40.2 % (15.3-44.8); MCV 77.7 fL (80-100); MPV 8.3 fL (7.6-11.3); RBC Red Blood Cell Count 4.76 M/uL (3.86-4.86)
[2022-08-11 04:28] LABS: Albumin 3.3 g/dL (3.4-5.0); Bilirubin Total 0.5 mg/dL (0.2-1.0); Potassium 3.8 mmol/L (3.5-5.1); Protein, Total 8.5 g/dL (6.4-8.2)
--- NOTE | 2022-08-11 06:01 | EDPHYS ---
Physician Documentation [facility] Name: Dori Guardado Age: 47 yrs Sex: Female : 1975 Arrival Date: 08/11/2022 Time: 00:41 Bed 5 Private MD: ED Physician Servando Mata HPI: 08/11 01:34 This 47 yrs old Black Female presents to ER via Unassigned with complaints of Abdominal kb Pain. 01:34 The patient presents with abdominal pain in the upper abdomen. Onset: The kb symptoms/episode began/occurred 2 day(s) ago. The symptoms radiate to back. Associated signs and symptoms: Pertinent positives: diarrhea, nausea, Pertinent negatives: vomiting. The symptoms are described as constant. Modifying factors: The symptoms are alleviated by nothing, the symptoms are aggravated by nothing. Severity of pain: At its worst the pain was moderate in the emergency department the pain is unchanged. The patient has not experienced similar symptoms in the past. The patient has been recently seen by a physician: the patient's primary care provider, yesterday, with similar presenting complaints. Pt reports upper abd pain that radiates to the back with nausea. Reports some diarrhea, but also feels like she needs to have a bowel movement and cannot. CHIEF RECORDIST: 04:26 LMP N/A - partial hysterectomy vc1 Historical: - Home Meds: 01:35 amlodipine oral [Active]; aspirin 81 mg Oral chew [Active]; Famotidine Oral [Active]; vc1 Humira subcutaneous [Active]; mesalamine Oral [Active]; - PMHx: 01:35 Atrial Fib; bowel obstruction; Crohn's; Hypertension; vc1 - PSHx: 01:35 Appendectomy; section; Cholecystectomy; hyst; vc1 - Immunization history:: Client reports having NOT received the Covid vaccine. - Social history:: Smoking status: Patient denies any tobacco usage or history of. ROS: 01:36 Constitutional: Negative for fever, chills, and weight loss. kb 01:36 Abdomen/GI: Positive for abdominal pain, nausea, diarrhea. 01:36 All other systems are negative. Exam: 01:36 Constitutional: This is a well developed, well nourished patient who is awake, alert, kb and in no acute distress. Head/Face: Normocephalic, atraumatic. ENT: Moist Mucous membranes Cardiovascular: Regular rate and rhythm with a normal S1 and S2. No gallops, murmurs, or rubs. No pulse deficits. Respiratory: Respirations even and unlabored. No increased work of breathing. Talking in full sentences Skin: Warm, dry with normal turgor. Normal color. MS/ Extremity: Pulses equal, no cyanosis. Neurovascular intact. Full, normal range of motion. Neuro: Awake and alert, GCS 15, oriented to person, place, time, and situation. Moves all extremities. Normal gait. Psych: Awake, alert, with orientation to person, place and time. Behavior, mood, and affect are within normal limits. 01:36 Abdomen/GI: Inspection: abdomen appears normal, Bowel sounds: normal, Palpation: soft, in all quadrants, mild abdominal tenderness, in the left upper quadrant. Vital Signs: 03:41 BP 121 / 76; Pulse 67; Resp 18 S; Pulse Ox 99% on R/A; as6 05:30 BP 116 / 77; Pulse 65; Resp 18 S; Pulse Ox 99% on R/A; as6 MDM: 01:36 Data reviewed: vital signs, nurses notes. Data interpreted: Pulse oximetry: on room air kb is 98 %. Interpretation: normal. 01:36 Patient medically screened. 08/11 01:34 Order name: CBC with Diff; Complete Time: 04:41 kb 08/11 01:34 Order name: CMP; Complete Time: 04:41 kb 08/11 01:34 Order name: Lipase; Complete Time: 04:41 kb 08/11 01:34 Order name: CT Abd/Pelvis - IV Contrast Only 08/11 01:34 Order name: IV Saline Lock; Complete Time: 03:40 kb 08/11 01:34 Order name: Labs collected and sent; Complete Time: 03:40 kb Administered Medications: 03:40 Drug: NS 0.9% 1000 ml Route: IV; Rate: 1 bolus; Site: left antecubital; as6 06:36 Follow up: Response: No adverse reaction; IV Status: Completed infusion; IV Intake: as6 1000ml 03:40 Drug: Pepcid (famotidine) 20 mg Route: IVP; Site: left antecubital; as6 06:36 Follow up: Response: No adverse reaction as6 03:40 Drug: Zofran (Ondansetron) 4 mg Route: IVP; Site: left antecubital; as6 06:36 Follow up: Response: No adverse reaction as6 03:40 Not Given (Patient Refused): morphine 4 mg IVP once over 4 mins as6 Disposition Summary: 08/11/22 06:00 Discharge Ordered Location: Home rt Problem: new rt Symptoms: have improved rt Condition: Stable rt Diagnosis - Abdominal pain, Generalized rt Followup: rt - With: Private Physician - When: As needed - Reason: Discharge Instructions: - Discharge Summary Sheet rt - Abdominal Pain, Adult rt Forms: - Work release form as6 - Medication Reconciliation Form rt - Thank You Letter rt - Antibiotic Education rt - Prescription Opioid Use rt Prescriptions: - Simethicone 125 mg tablet - take 1 tablet by ORAL route 4 times per day; 15 tablet; Refills: 0, Product rt Selection Permitted - Zofran 4 mg Oral Tablet - take 1 tablet by ORAL route every 12 hours As needed; 6 tablet; Refills: 0, rt Product Selection Permitted - dicyclomine 10 mg Oral Capsule - take 1 capsule by ORAL route 4 times per day; 15 capsule; Refills: 0, Product rt Selection Permitted Addendum: 08/13/2022 07:16 Co-signature as Attending Physician, Servando Mata MD I agree with the assessment and r t plan of care. Signatures: Dispatcher [employer] Mishel Mancilla, GAS APPLIANCE MECHANIC-C GAS APPLIANCE MECHANIC-Moy Patel RN RN as6 Cathy Thompson RN RN vc1 Servando Mata MD MD rt
--- NOTE | 2022-08-11 06:01 | ER ---
Nurse's Notes [facility] Name: Dori Guardado Age: 47 yrs Sex: Female : 1975 Arrival Date: 08/11/2022 Time: 00:41 Bed 5 Private MD: Diagnosis: Abdominal pain, Generalized Presentation: 08/11 01:30 Chief complaint: Patient states: "I've been having abdominal pain that radiates to my vc1 back with diarrhea and nausea for 2 days.". 01:30 Method Of Arrival: Ambulatory vc1 01:30 Coronavirus screen: Vaccine status: Patient reports being unvaccinated. At this time, vc1 the client does not indicate any symptoms associated with coronavirus-19. Ebola Screen: No symptoms or risks identified at this time. Initial Sepsis Screen: Does the patient meet any 2 criteria? No. Patient's initial sepsis screen is negative. Does the patient have a suspected source of infection? No. Patient's initial sepsis screen is negative. Risk Assessment: Do you want to hurt yourself or someone else? Patient reports no desire to harm self or others. Onset of symptoms was August 09, 2022. 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 - Social history:: Smoking status: Patient denies any tobacco usage or history of. Screenin:40 Abuse screen: Denies threats or abuse. Denies injuries from another. Nutritional as6 screening: No deficits noted. Tuberculosis screening: No symptoms or risk factors identified. Fall Risk None identified. Assessment: 02:50 General: Appears in no apparent distress. Behavior is calm, cooperative. Pain: as6 Complains of pain in abdomen. Neuro: Level of Consciousness is awake, alert, obeys commands. Respiratory: Respiratory effort is even, unlabored. GI: Reports upper abdominal pain, diarrhea, nausea, vomiting. 06:35 GI: as6 Vital Signs: 03:41 BP 121 / 76; Pulse 67; Resp 18 S; Pulse Ox 99% on R/A; as6 05:30 BP 116 / 77; Pulse 65; Resp 18 S; Pulse Ox 99% on R/A; as6 ED Course: 00:41 Patient arrived in ED. bp1 01:30 Arm band placed on. vc1 02:33 Moy Rios, LEONA is Primary Nurse. as6 02:36 Servando Mata MD is Attending Physician. rt 03:34 Inserted saline lock: 20 gauge in left antecubital area, using aseptic technique. Blood as6 collected. ultrasound guided insertion. 03:41 Bed in low position. Call light in reach. Side rails up X2. as6 04:24 Triage completed. vc1 04:55 CT Abd/Pelvis - IV Contrast Only In Process Unspecified. EDMS 06:35 No provider procedures requiring assistance completed. IV discontinued, intact, as6 bleeding controlled, No redness/swelling at site. Pressure dressing applied. Administered Medications: 03:40 Drug: NS 0.9% 1000 ml Route: IV; Rate: 1 bolus; Site: left antecubital; as6 06:36 Follow up: Response: No adverse reaction; IV Status: Completed infusion; IV Intake: as6 1000ml 03:40 Drug: Pepcid (famotidine) 20 mg Route: IVP; Site: left antecubital; as6 06:36 Follow up: Response: No adverse reaction as6 03:40 Drug: Zofran (Ondansetron) 4 mg Route: IVP; Site: left antecubital; as6 06:36 Follow up: Response: No adverse reaction as6 03:40 Not Given (Patient Refused): morphine 4 mg IVP once over 4 mins as6 Medication: 03:41 VIS not applicable for this client. as6 Intake: 06:36 IV: 1000ml; Total: 1000ml. as6 Outcome: 06:00 Discharge ordered by . rt 06:35 Discharged to home ambulatory. as6 06:35 Condition: stable 06:35 Discharge instructions given to patient, Instructed on discharge instructions, follow up and referral plans. medication usage, Demonstrated understanding of instructions, follow-up care, medications, Prescriptions given X 3. 06:37 Patient left the ED. as6 Signatures: Dispatcher [employer] EDMS Mishel Cota, DORIS FU-Miriam Bingham Ashby, RN RN as6 Cathy Thompson RN RN vc1 Servando Mata MD MD rt
[2022-08-11 07:03] VITALS: O2SAT 99
[2022-08-11 07:04] VITALS: BP 116/77
--- NOTE | 2022-08-11 10:21 | RAD REPORT ---
EXAM DESCRIPTION: CT Abdomen and Pelvis With Intravenous Contrast CLINICAL HISTORY: The patient is 47 years old and is Female; abd pain TECHNIQUE: Axial computed tomography images of the abdomen and pelvis with intravenous contrast. S agittal and coronal reformatted images were created and reviewed. This CT exam was performed using one or more of the following dose reduction techniques: automated exposure control, adjustment of t he mA and/or kV according to patient size, and/or use of iterative reconstruction technique. COMPARISON: April 06, 2022. FINDINGS: Lung bases: Unremarkable. No mass. No consolidation. ABDOMEN: Liver: Unremarkable. No mass. Gallbladder and bile ducts: Cholecystectomy without biliary dilatation. Pancreas: No findings to suggest acute pancreatitis. No mass visualized. No ductal dilation. Spleen: Unremarkable. No splenomegaly. Adrenals: Unremarkable. No mass. Kidneys and ureters: Unremarkable. No solid mass. No hydronephrosis. Stomach and bowel: Prior ileocolic resection versus partial right colectomy. No bowel dilatation or obstruction. No bowel wall thickening. Stomach is not well distended. PELVIS: Appendix: Appendectomy. Bladder: Unremarkable. No mass. Reproductive: Unremarkable as visualized. ABDOMEN and PELVIS: Intraperitoneal space: Unremarkable. No free air. No significant fluid collection. Bones/joints: No acute fracture. No dislocation. Soft tissues: Unremarkable. Vasculature: Unremarkable. No abdominal aortic aneurysm. Lymph nodes: No pathologically enlarged lymph nodes. IMPRESSION: 1. No acute obstructive or inflammatory process identified. 2. Postoperative changes as above. Electronically signed by: Carla Thomas MD 08/11/2022 5:24 AM [employer] Due to temporary technical issues with the PACS/Fluency reporting system, reports are being signed by the in house radiologists without review as a courtesy to insure prompt reporting. The interpreting radiologist is fully responsible for the content of the report.
== END 2022-08-11 06:37 | disposition home or self-care (01) ==
LOC: ER 00:38
DX: R10.84 Generalized abdominal pain (principal); R19.7 Diarrhea, unspecified; R11.0 Nausea; I10 Essential (primary) hypertension; Z79.82 Long term (current) use of aspirin
CPT/HCPCS: 96361; 85025; 36415; 83690; 80053; 74177; 96375; 96374; 99284; Q9967; J7030; J2405

== ENCOUNTER 2022-11-18 20:02 | Emergency (ER) | payer OTHER ==
--- OUTSIDE RECORDS SUMMARY | 2022-11-18 20:42 | XMS REPORT | Continuity of Care Document ---
:1975 Author Organization [facility] t Address [address] [place] [address] Care Team Providers Name Role Phone Noemy Lopez Primary Care Physician Noemy Lopez Attending Clinician Unavailable Vanesa Nunez Attending Clinician Unavailable Raissa Tran DO Attending Clinician Noeym Lopez Admitting Clinician Unavailable Payers Payer Name Policy Type Policy Number Effective Date Expiration Date [place] [id number] [id number] 2020 [facility] Health Choice 00:00:00 - [facility]ica l [facility] C1 [id number] 2020 [facility] Health Choice 00:00:00 - [facility] Medica [place] [address] [id number] 2020 Common [facility] Health Choice 00:00:00 - [facility] Medica l Center Problems Condition Condition Condition Status Onset Resolution Last Treating Co mments Source Name Details Category Date Date Treatment Clinician Date [id number] Microcytic Problem Co mmon anemia [facility] [id number] [place], [place] [id number] joint, [facility] knee, - [facility] right [facility] [id number] Sinusitis, Problem Com mon maxillary, [facility] chronic - [facility] [id number] Recurrent Problem Com mon falls [facility] [id number] Balance Problem Commo n problem [facility] Morbid Obesity, Problem Common obesity morbid, Spirit BMI 50 or - [facility] higher [facility] [id number] Crohn's Problem Commo n disease in Spirit remission [facility] [id number] Gastroesop Problem Co mmon hageal [facility] reflux - [facility] not [facility] specified Iron Iron Problem Common deficiency deficiency Sp jose anemia anemia, - [facility] unspecifie [facility] iron [facility] deficiency Medica l anemia Center type [id number] Adult Problem Common general [facility] medical - [facility] exam [facility] [id number] Hematuria, Problem Com mon unspecifie Spirit d - [facility] [id number] Multiple Problem Commo n joint pain [facility] [id number] Urinary Problem Common tract [facility] infection, - [facility] site not [facility] [id number] BMI Problem Common 50.0-59.9, [facility] adult [facility] [id number] Vitamin D Problem Comm on deficiency [facility] [id number] Grieving Problem Comm on [facility] [id number] Seasonal Problem Comm on allergic Spirit rhinitis, - [facility] unspecifie [facility] [id number] Abdominal Problem Com mon bloating [facility] [id number] Crohn's Problem Common disease [facility] without - [facility] d Center gastrointe stinal tract location [id number] Seasonal Problem Commo n allergic Spirit rhinitis - [facility] due to [facility] Mixed Depression Problem Commo n anxiety with Spirit and anxiety - [facility] depressive [facility] High blood High blood Problem C ommon pressure pressure [facility] [id number] Other Problem Common chronic [facility] pain [facility] [id number] Esophageal Problem Com mon stricture [facility] No known No known Disease Unive rs active active ity of problems problems [facility] Allergies, Adverse Reactions, Alerts Allergy Allergy Status Severity Reaction(s) Onset Inactive Treating Comm ents Source Name Type Date Date Clinician No Known DA Active U 2020-09 [facility] [place] [facility] 00:[facility]: d 00 [facility] No Known DA Active U 2020-09 [facility] All[facility]ie 0[facility] NO KNOWN Drug Active Univers ALLERGIE Class ity of S [facility] Social History Social Habit Start Date Stop Date Quantity Comments Source History of Tobacco Use Co mmon [facility] Sex Assigned At Com mon [facility] Smoking Status Start Date Stop Date Source Unknown if ever smoked [facility] Never Smoker Common [facility] Medications Ordered Filled Start Stop Current Ordering Indication Dosage Frequency Signature Comments Components Source Medication Medication Date Date Medication? Clinician (SIG) Name Name Kenalog 0.1 Kenalog 0.1 2021-09- BID Kenalog % % 11-01 0.1 % 00:00: 00:00 00 :00 predniSONE predniSONE 2021-09- No QD predniSONE 20 MG 20 MG 11-01 20 MG 00:00: 00:00 00 :00 Chlorhexidi Chlorhexidi 2021-09- No BID Chlorhexid ne ne 11-01 ine Gluconate Gluconate 00:00: 00:00 Gluconate 0.12 % 0.12 % 00 :00 0.12 % Indomethaci Indomethaci 2021- No 1{capsu Indomethac n [...] MG 00:00: 00:00 _food_o 00 :00 r_milk} HUMIRA PEN 2021-0 No KIT 06-06 CD/UC/HS 00:00: 00 IPRATROPIUM 2021-0 No SPR 0.06% 05-26 00:00: 00 Telmisartan Telmisartan 2021-0 No 1{table QD Telmisarta 20 MG 20 MG 8-22 t_at_be n 20 MG 00:00: dtime} 00 Telmisartan Telmisartan 2021-0 No 1{table QD Telmisarta 20 MG 20 MG 8-22 t_at_be n 20 MG 00:00: dtime} 00 Dose 2021-0 No Unknown 8-12 00:00: 00 Dose 2021-0 No Unknown 8-11 00:00: 00 Dose 2021-0 No Unknown 8- 00:00: 00 fluconazole 2-0 No 1mg 150 mg 7-27 tablet 00:00: 00 nystatin 2-0 No 10unit/ 100,000 7-27 mL unit/mL 00:00: oral 00 suspension Dose 2021-0 No Unknown 7-27 00:00: 00 Dose 2-0 No Unknown 7-27 00:00: 00 Dose 2-0 No Unknown 7-27 00:00: 00 fluconazole 2-0 No 1mg 150 mg 7-27 tablet 00:00: 00 nystatin 2-0 No 10unit/ 100,000 7-27 mL unit/mL 00:00: oral 00 suspension Dose 2-0 No Unknown 7-27 00:00: 00 Dose 2-0 No Unknown 7-27 00:00: 00 Dose 2-0 No Unknown 7-27 00:00: 00 Augmentin Augmentin 2021-0 2022- No 1{table BID Augmentin 500-125 MG 500-125 MG 03-30- t} 500-125 MG 00:00: 00:00 00 :00 Sudafed 12 2021-0 No 1mg Hour 120 mg 6-17 tablet,exte 00:00: nded 00 release Sudafed 12 2021-0 No 1mg Hour 120 mg 6-17 tablet,exte 00:00: nded 00 release guaiFENesin guaiFENesin 2022-0 2- No QID guaiFENesi -Codeine -Codeine 5-04 05-11 n-Codeine 100-10 100-10 00:00: 00:00 100-10 MG/5ML MG/5ML 00 :00 MG/5ML Dose 2022-0 No Unknown 4-29 00:00: 00 [...] Dose 2022-0 No Unknown 4 00:00: 00 ProAir HFA [...] 4 00:00: 00 Dose 2022-0 No Unknown 4-29 [...] Dose 2-0 No Unknown 4 00:00: 00 Mobic 7.5 Mobic 7.5 2021-0 2021- No 1{table QD Mobic 7.5 MG MG 4-13 05-13 t} MG 00:00: 00:00 00 :00 Mobic 7.5 Mobic 7.5 2021-0 2021- No 1{table QD Mobic 7.5 MG MG 4-13 05-13 t} MG 00:00: 00:00 00 :00 Mobic 7.5 Mobic 7.5 2021-0 2021- No 1{table QD Mobic 7.5 MG MG [...] No Unknown 3-16 00:00: 00 Benzonatate Benzonatate 2022-0 2022- No TID Benzonatat 200 MG 200 MG 2-26 03-08 e 200 MG 00:00: 00:00 00 :00 prednisone 2022-0 No mg 20 mg 2-18 tablet 00:00: 00 azithromyci 2022-0 No mg n 250 mg 2-18 tablet 00:00: 00 prednisone 2-0 No mg 20 mg 2-18 tablet 00:00: 00 azithromyci 2-0 No mg n 250 mg 2-18 tablet 00:00: 00 Azithromyci Azithromyci 2021-0 2022- No QD Azithromyc n 250 MG n 250 MG 09-28- in 250 MG 00:00: 00:00 00 :00 No known 2020-1 No Univers medications 0-09 ity of 19:54: [address] metoprolol 2020-0 No 1mg tartrate 50 8-10 mg tablet 00:00: 00 omeprazole 2020-0 No 1mg 20 mg 8-10 capsule,del 00:00: ayed 00 release metoprolol 2020-0 No 1mg tartrate 50 8-10 mg tablet 00:00: 00 omeprazole 1-0 No 1mg 20 mg 8-10 capsule,del 00:00: ayed 00 release amoxicillin 2020-0 No mg 875 8-04 mg-potassiu 00:00: m 00 clavulanate 125 mg tablet fluticasone 2020-0 No mcg/act propionate 8-04 uation 50 00:00: mcg/actuati 00 on nasal spray,suspe nsion amoxicillin 2020-0 No mg 875 8-04 mg-potassiu 00:00: m 00 clavulanate 125 mg tablet fluticasone 2020-0 No mcg/act propionate 8-04 uation 50 00:00: mcg/actuati 00 on nasal spray,suspe nsion Flonase 50 Flonase 50 2020-0 No 2{spray QD Flonase 50 MCG/ACT MCG/ACT 8-04 _in_eac MCG/ACT 00:00: h_nostr 00 il} Cetirizine [...] Sodium 8-10 Spirit 00:00: - [facility] 00 [facility] Ergocalcife Ergocalcife 2018- 2020- No Na Lopez 1 capsule Common rol rol 1-18 02-16 Spirit 00:00: 00:00 - [facility] 00 :00 [facility] Paxil Paxil 2017-0 Yes Na Lopez 1 tablet Comm on 12-26 in the Spirit 00:00: morning - [facility] 00 [facility] Montelukast Montelukast No 1{table Montelukas Sodium 10 [...] MG Ergocalcife Ergocalcife No 1{capsu Ergocalcif rol 12971 rol 01237 le} fortunato 50440 UNIT UNIT UNIT Famotidine Famotidine No 1{table [...] MG Ergocalcife Ergocalcife No 1{capsu Ergocalcif rol 41235 rol 30778 le} fortunato 28872 UNIT UNIT UNIT busPIRone busPIRone No 1{table [...] MG Ergocalcife Ergocalcife No 1{capsu Ergocalcif rol 89559 rol 59031 le} fortunato 00653 UNIT UNIT UNIT Montelukast Montelukast No 1{table [...] MG Ergocalcife Ergocalcife No 1{capsu Ergocalcif rol 33538 rol 01793 le} fortunato 83251 UNIT UNIT UNIT Montelukast Montelukast No 1{table [...] MG Ergocalcife Ergocalcife No 1{capsu Ergocalcif rol 70660 rol 40645 le} fortunato 20535 UNIT UNIT UNIT Flonase 50 Flonase 50 [...] MG Ergocalcife Ergocalcife No 1{capsu Ergocalcif rol 93996 rol 69779 le} fortunato 77947 UNIT UNIT UNIT PARoxetine PARoxetine No PARoxetine [...] MG Ergocalcife Ergocalcife No 1{capsu Ergocalcif rol 86404 rol 39153 le} fortunato 63818 UNIT UNIT UNIT PARoxetine PARoxetine No PARoxetine [...] MG Ergocalcife Ergocalcife No 1{capsu Ergocalcif rol 34525 rol 47815 le} fortunato 24009 UNIT UNIT UNIT Aspirin 81 Aspirin 81 [...] MG Ergocalcife Ergocalcife No 1{capsu Ergocalcif rol 75353 rol 64425 le} fortunato 50112 UNIT UNIT UNIT ALPRAZolam ALPRAZolam No 1{table [...] MG Ergocalcife Ergocalcife No 1{capsu Ergocalcif rol 66162 rol 70591 le} fortunato 60431 UNIT UNIT UNIT ALPRAZolam ALPRAZolam No 1{table [...] MG Ergocalcife Ergocalcife No 1{capsu Ergocalcif rol 20444 rol 82359 le} fortunato 29453 UNIT UNIT UNIT ALPRAZolam ALPRAZolam No 1{table [...] MG Ergocalcife Ergocalcife No 1{capsu Ergocalcif rol 65457 rol 49720 le} fortunato 50051 UNIT UNIT UNIT Benzonatate Benzonatate No TID [...] MG Ergocalcife Ergocalcife No 1{capsu Ergocalcif rol 64483 rol 52503 le} fortunato 54570 UNIT UNIT UNIT Benzonatate Benzonatate No TID [...] MG Ergocalcife Ergocalcife No 1{capsu Ergocalcif rol 34331 rol 20483 le} fortunato 36031 UNIT UNIT UNIT Famotidine Famotidine No Famotidine [...] MG Ergocalcife Ergocalcife No 1{capsu Ergocalcif rol 36907 rol 18895 le} fortunato 04811 UNIT UNIT UNIT Famotidine Famotidine No Famotidine [...] MG Ergocalcife Ergocalcife No 1{capsu Ergocalcif rol 05496 rol 19548 le} fortunato 40570 UNIT UNIT UNIT Gabapentin Gabapentin No 1{capsu [...] MCG/ACT Ergocalcife Ergocalcife No 1{capsu Ergocalcif rol 50218 rol 94870 le} fortunato 29842 UNIT UNIT UNIT Gabapentin Gabapentin No 1{capsu [...] MG Ergocalcife Ergocalcife No 1{capsu Ergocalcif rol 34642 rol 01618 le} fortunato 22346 UNIT UNIT UNIT Montelukast Montelukast No Montelukas [...] 50 MCG/ACT 50 MCG/ACT Propionate 50 MCG/ACT guaiFENesin guaiFENesin No 10{ml_a 6xD guaiFENesi AC 100-10 AC 100-10 s_neede n AC MG/5ML MG/5ML d} 100-10 MG/5ML amLODIPine amLODIPine No 1{table BID amLODIPine Besylate 5 Besylate 5 t} Besylate 5 MG MG MG Gabapentin Gabapentin No Gabapentin 100 MG 100 MG 100 MG Omeprazole Omeprazole No 1{capsu QD Omeprazole 40 MG 40 MG le} 40 MG Paxlovid Paxlovid No 3{table BID Paxlovid (300/100) (300/100) ts} (300/100) 20 x 150 MG 20 x 150 MG 20 x 150 & 10 x & 10 x MG & 10 x 100MG 100MG 100MG Gabapentin Gabapentin No 1{capsu TID Gabapentin 100 MG 100 MG le} 100 MG Aspirin 81 Aspirin 81 No Aspirin 81 MG MG MG Famotidine Famotidine No Famotidine 40 MG 40 MG 40 MG Ergocalcife Ergocalcife No 1{capsu Ergocalcif rol 41233 rol 33156 le} forutnato 80069 UNIT UNIT UNIT Cetirizine Cetirizine No Cetirizine HCl 10 MG HCl 10 MG HCl 10 MG Montelukast Montelukast No Montelukas Sodium 10 Sodium 10 t Sodium MG MG 10 MG Lagevrio Lagevrio No 4{capsu BID Lagevrio 200 MG 200 MG les} 200 MG Paxil 20 MG Paxil 20 MG No 1{table QD Paxil 20 t_in_th MG e_morni ng} busPIRone busPIRone No 1{table TID busPIRone HCl 10 MG HCl 10 MG t} HCl 10 MG predniSONE predniSONE No QD predniSONE 20 MG 20 MG 20 MG PARoxetine PARoxetine No PARoxetine HCl 20 MG HCl 20 MG HCl 20 MG Omeprazole Omeprazole No Omeprazole 40 MG 40 MG 40 MG Albuterol Albuterol No 2{puffs Albuterol Sulfate HFA Sulfate HFA } Sulfate 108 (90 108 (90 HFA 108 Base) Base) (90 Base) MCG/ACT MCG/ACT MCG/ACT Albuterol Albuterol No 2{puffs Albuterol Sulfate HFA Sulfate HFA } Sulfate 108 (90 108 (90 HFA 108 Base) Base) (90 Base) MCG/ACT MCG/ACT MCG/ACT ALPRAZolam ALPRAZolam No 1{table ALPRAZolam 0.5 MG 0.5 MG t} 0.5 MG Benzonatate Benzonatate No TID Benzonatat 100 MG 100 MG e 100 MG Meloxicam Meloxicam No Meloxicam 7.5 MG 7.5 MG 7.5 MG Azithromyci Azithromyci No QD Azithromyc n 250 MG n 250 MG in 250 MG predniSONE predniSONE No QD predniSONE 20 MG 20 MG 20 MG Humira Humira No Humira Augmentin Augmentin No 1{table BID Augmentin 875-125 MG 875-125 MG t} 875-125 MG Fluticasone Fluticasone No Fluticason Propionate Propionate e 50 MCG/ACT 50 MCG/ACT Propionate 50 MCG/ACT guaiFENesin guaiFENesin No 10{ml_a 6xD guaiFENesi AC 100-10 AC 100-10 s_neede n AC MG/5ML MG/5ML d} 100-10 MG/5ML amLODIPine amLODIPine No 1{table BID amLODIPine Besylate 5 Besylate 5 t} Besylate 5 MG MG MG Gabapentin Gabapentin No Gabapentin 100 MG 100 MG 100 MG Omeprazole Omeprazole No 1{capsu QD Omeprazole 40 MG 40 MG le} 40 MG Paxlovid Paxlovid No 3{table BID Paxlovid (300/100) (300/100) ts} (300/100) 20 x 150 MG 20 x 150 MG 20 x 150 & 10 x & 10 x MG & 10 x 100MG 100MG 100MG Gabapentin Gabapentin No 1{capsu TID Gabapentin 100 MG 100 MG le} 100 MG Aspirin 81 Aspirin 81 No Aspirin 81 MG MG MG Famotidine Famotidine No Famotidine 40 MG 40 MG 40 MG Ergocalcife Ergocalcife No 1{capsu Ergocalcif rol 50686 rol 52774 le} fortunato 72536 UNIT UNIT UNIT Cetirizine Cetirizine No Cetirizine HCl 10 MG HCl 10 MG HCl 10 MG Montelukast Montelukast No Montelukas Sodium 10 Sodium 10 t Sodium MG MG 10 MG Lagevrio Lagevrio No 4{capsu BID Lagevrio 200 MG 200 MG les} 200 MG Paxil 20 MG Paxil 20 MG No 1{table QD Paxil 20 t_in_th MG e_morni ng} busPIRone busPIRone No 1{table TID busPIRone HCl 10 MG HCl 10 MG t} HCl 10 MG predniSONE predniSONE No QD predniSONE 20 MG 20 MG 20 MG PARoxetine PARoxetine No PARoxetine HCl 20 MG HCl 20 MG HCl 20 MG Omeprazole Omeprazole No Omeprazole 40 MG 40 MG 40 MG Albuterol Albuterol No 2{puffs Albuterol Sulfate HFA Sulfate HFA } Sulfate 108 (90 108 (90 HFA 108 Base) Base) (90 Base) MCG/ACT MCG/ACT MCG/ACT Albuterol Albuterol No 2{puffs Albuterol Sulfate HFA Sulfate HFA } Sulfate 108 (90 108 (90 HFA 108 Base) Base) (90 Base) MCG/ACT MCG/ACT MCG/ACT ALPRAZolam ALPRAZolam No 1{table ALPRAZolam 0.5 MG 0.5 MG t} 0.5 MG Benzonatate Benzonatate No TID Benzonatat 100 MG 100 MG e 100 MG Meloxicam Meloxicam No Meloxicam 7.5 MG 7.5 MG 7.5 MG Azithromyci Azithromyci No QD Azithromyc n 250 MG n 250 MG in 250 MG predniSONE predniSONE No QD predniSONE 20 MG 20 MG 20 MG Humira Humira No Humira Augmentin Augmentin No 1{table BID Augmentin 875-125 MG 875-125 MG t} 875-125 MG Fluticasone Fluticasone No Fluticason Propionate Propionate e 50 MCG/ACT 50 MCG/ACT Propionate 50 MCG/ACT guaiFENesin guaiFENesin No 10{ml_a 6xD guaiFENesi AC 100-10 AC 100-10 s_neede n AC MG/5ML MG/5ML d} 100-10 MG/5ML amLODIPine amLODIPine No 1{table BID amLODIPine Besylate 5 Besylate 5 t} Besylate 5 MG MG MG Gabapentin Gabapentin No Gabapentin 100 MG 100 MG 100 MG Omeprazole Omeprazole No 1{capsu QD Omeprazole 40 MG 40 MG le} 40 MG Paxlovid Paxlovid No 3{table BID Paxlovid (300/100) (300/100) ts} (300/100) 20 x 150 MG 20 x 150 MG 20 x 150 & 10 x & 10 x MG & 10 x 100MG 100MG 100MG Gabapentin Gabapentin No 1{capsu TID Gabapentin 100 MG 100 MG le} 100 MG Aspirin 81 Aspirin 81 No Aspirin 81 MG MG MG Famotidine Famotidine No Famotidine 40 MG 40 MG 40 MG Ergocalcife Ergocalcife No 1{capsu Ergocalcif rol 53673 rol 90119 le} fortunato 35080 UNIT UNIT UNIT Cetirizine Cetirizine No Cetirizine HCl 10 MG HCl 10 MG HCl 10 MG Montelukast Montelukast No Montelukas Sodium 10 Sodium 10 t Sodium MG MG 10 MG Lagevrio Lagevrio No 4{capsu BID Lagevrio 200 MG 200 MG les} 200 MG Paxil 20 MG Paxil 20 MG No 1{table QD Paxil 20 t_in_th MG e_morni ng} busPIRone busPIRone No 1{table TID busPIRone HCl 10 MG HCl 10 MG t} HCl 10 MG predniSONE predniSONE No QD predniSONE 20 MG 20 MG 20 MG PARoxetine PARoxetine No PARoxetine HCl 20 MG HCl 20 MG HCl 20 MG Omeprazole Omeprazole No Omeprazole 40 MG 40 MG 40 MG Albuterol Albuterol No 2{puffs Albuterol Sulfate HFA Sulfate HFA } Sulfate 108 (90 108 (90 HFA 108 Base) Base) (90 Base) MCG/ACT MCG/ACT MCG/ACT Albuterol Albuterol No 2{puffs Albuterol Sulfate HFA Sulfate HFA } Sulfate 108 (90 108 (90 HFA 108 Base) Base) (90 Base) MCG/ACT MCG/ACT MCG/ACT ALPRAZolam ALPRAZolam No 1{table ALPRAZolam 0.5 MG 0.5 MG t} 0.5 MG Benzonatate Benzonatate No TID Benzonatat 100 MG 100 MG e 100 MG Meloxicam Meloxicam No Meloxicam 7.5 MG 7.5 MG 7.5 MG Azithromyci Azithromyci No QD Azithromyc n 250 MG n 250 MG in 250 MG predniSONE predniSONE No QD predniSONE 20 MG 20 MG 20 MG Humira Humira No Humira Augmentin Augmentin No 1{table BID Augmentin 875-125 MG 875-125 MG t} 875-125 MG Fluticasone Fluticasone No Fluticason Propionate Propionate e 50 MCG/ACT 50 MCG/ACT Propionate 50 MCG/ACT guaiFENesin guaiFENesin No 10{ml_a 6xD guaiFENesi AC 100-10 AC 100-10 s_neede n AC MG/5ML MG/5ML d} 100-10 MG/5ML amLODIPine amLODIPine No 1{table BID amLODIPine Besylate 5 Besylate 5 t} Besylate 5 MG MG MG Gabapentin Gabapentin No Gabapentin 100 MG 100 MG 100 MG Omeprazole Omeprazole No 1{capsu QD Omeprazole 40 MG 40 MG le} 40 MG Paxlovid Paxlovid No 3{table BID Paxlovid (300/100) (300/100) ts} (300/100) 20 x 150 MG 20 x 150 MG 20 x 150 & 10 x & 10 x MG & 10 x 100MG 100MG 100MG Gabapentin Gabapentin No 1{capsu TID Gabapentin 100 MG 100 MG le} 100 MG Aspirin 81 Aspirin 81 No Aspirin 81 MG MG MG Famotidine Famotidine No Famotidine 40 MG 40 MG 40 MG Ergocalcife Ergocalcife No 1{capsu Ergocalcif rol 90381 rol 66575 le} fortunato 08023 UNIT UNIT UNIT Cetirizine Cetirizine No Cetirizine HCl 10 MG HCl 10 MG HCl 10 MG Montelukast Montelukast No Montelukas Sodium 10 Sodium 10 t Sodium MG MG 10 MG Lagevrio Lagevrio No 4{capsu BID Lagevrio 200 MG 200 MG les} 200 MG Paxil 20 MG Paxil 20 MG No 1{table QD Paxil 20 t_in_th MG e_morni ng} busPIRone busPIRone No 1{table TID busPIRone HCl 10 MG HCl 10 MG t} HCl 10 MG predniSONE predniSONE No QD predniSONE 20 MG 20 MG 20 MG PARoxetine PARoxetine No PARoxetine HCl 20 MG HCl 20 MG HCl 20 MG Omeprazole Omeprazole No Omeprazole 40 MG 40 MG 40 MG Albuterol Albuterol No 2{puffs Albuterol Sulfate HFA Sulfate HFA } Sulfate 108 (90 108 (90 HFA 108 Base) Base) (90 Base) MCG/ACT MCG/ACT MCG/ACT Albuterol Albuterol No 2{puffs Albuterol Sulfate HFA Sulfate HFA } Sulfate 108 (90 108 (90 HFA 108 Base) Base) (90 Base) MCG/ACT MCG/ACT MCG/ACT ALPRAZolam ALPRAZolam No 1{table ALPRAZolam 0.5 MG 0.5 MG t} 0.5 MG Benzonatate Benzonatate No TID Benzonatat 100 MG 100 MG e 100 MG Meloxicam Meloxicam No Meloxicam 7.5 MG 7.5 MG 7.5 MG Azithromyci Azithromyci No QD Azithromyc n 250 MG n 250 MG in 250 MG predniSONE predniSONE No QD predniSONE 20 MG 20 MG 20 MG Humira Humira No Humira Augmentin Augmentin No 1{table BID Augmentin 875-125 MG 875-125 MG t} 875-125 MG Ergocalcife Ergocalcife No 1{capsu Ergocalcif rol 11580 rol 19093 le} fortunato 49062 UNIT UNIT UNIT Cetirizine Cetirizine No Cetirizine HCl 10 MG HCl 10 MG HCl 10 MG Augmentin Augmentin No 1{table BID Augmentin 875-125 MG 875-125 MG t} 875-125 MG Gabapentin Gabapentin No Gabapentin 100 MG 100 MG 100 MG guaiFENesin guaiFENesin No 10{ml_a 6xD guaiFENesi AC 100-10 AC 100-10 s_neede n AC MG/5ML MG/5ML d} 100-10 MG/5ML Aspirin 81 Aspirin 81 No Aspirin 81 MG MG MG Montelukast Montelukast No Montelukas Sodium 10 Sodium 10 t Sodium MG MG 10 MG Albuterol Albuterol No 2{puffs Albuterol Sulfate HFA Sulfate HFA } Sulfate 108 (90 108 (90 HFA 108 Base) Base) (90 Base) MCG/ACT MCG/ACT MCG/ACT Omeprazole Omeprazole No Omeprazole 40 MG 40 MG 40 MG Benzonatate Benzonatate No TID Benzonatat 100 MG 100 MG e 100 MG predniSONE predniSONE No QD predniSONE 20 MG 20 MG 20 MG Humira Humira No Humira ALPRAZolam ALPRAZolam [...] 40 MG 40 MG le} 40 MG Paxlovid Paxlovid No 3{table BID Paxlovid (300/100) (300/100) ts} (300/100) 20 x 150 MG 20 x 150 MG 20 x 150 & 10 x & 10 x MG & 10 x 100MG 100MG 100MG busPIRone busPIRone No 1{table TID busPIRone HCl 10 MG HCl 10 MG t} HCl 10 MG predniSONE predniSONE No QD predniSONE 20 MG 20 MG 20 MG Azithromyci Azithromyci No QD Azithromyc n 250 MG n 250 MG in 250 MG Meloxicam Meloxicam No Meloxicam 7.5 MG 7.5 MG 7.5 MG Lagevrio Lagevrio No 4{capsu BID Lagevrio 200 MG 200 MG les} 200 MG Gabapentin Gabapentin No 1{capsu TID Gabapentin 100 MG 100 MG le} 100 MG Famotidine Famotidine No Famotidine 40 MG 40 MG 40 MG Albuterol Albuterol No 2{puffs Albuterol Sulfate HFA Sulfate HFA } Sulfate 108 (90 108 (90 HFA 108 Base) Base) (90 Base) MCG/ACT MCG/ACT MCG/ACT Aspirin 81 Aspirin 81 No Aspirin 81 MG MG MG Benzonatate Benzonatate No TID Benzonatat 100 MG 100 MG e 100 MG Ergocalcife Ergocalcife No 1{capsu Ergocalcif rol 50486 rol 04360 le} fortunato 37356 UNIT UNIT UNIT guaiFENesin guaiFENesin No 10{ml_a 6xD guaiFENesi AC 100-10 AC 100-10 s_neede n AC MG/5ML MG/5ML d} 100-10 MG/5ML Omeprazole Omeprazole No Omeprazole 40 MG 40 MG 40 MG predniSONE predniSONE No QD predniSONE 20 MG 20 MG 20 MG Gabapentin Gabapentin No Gabapentin 100 MG 100 MG 100 MG Albuterol Albuterol No 2{puffs Albuterol Sulfate HFA Sulfate HFA } Sulfate 108 (90 108 (90 HFA 108 Base) Base) (90 Base) MCG/ACT MCG/ACT MCG/ACT Omeprazole Omeprazole No 1{capsu QD Omeprazole 40 [...] MG HCl 20 MG HCl 20 MG Cetirizine Cetirizine No Cetirizine HCl 10 MG HCl 10 MG HCl 10 MG amLODIPine amLODIPine No 1{table BID amLODIPine Besylate 5 Besylate 5 t} Besylate 5 MG MG MG Paxil 20 MG Paxil 20 MG No 1{table QD Paxil 20 t_in_th MG e_morni ng} Paxlovid Paxlovid No 3{table BID Paxlovid (300/100) (300/100) ts} (300/100) 20 x 150 MG 20 x 150 MG 20 x 150 & 10 x & 10 x MG & 10 x 100MG 100MG 100MG Montelukast Montelukast No Montelukas Sodium 10 Sodium 10 t Sodium MG MG 10 MG predniSONE predniSONE No QD predniSONE 20 MG 20 MG 20 MG Augmentin Augmentin No 1{table BID Augmentin 875-125 MG 875-125 MG t} 875-125 MG Azithromyci Azithromyci No QD Azithromyc n 250 MG n 250 MG in 250 MG Ergocalcife Ergocalcife No 1{capsu Ergocalcif rol 99295 rol 30807 le} fortunato 63637 UNIT UNIT UNIT Meloxicam Meloxicam No Meloxicam 7.5 MG 7.5 MG 7.5 MG Lagevrio Lagevrio No 4{capsu BID Lagevrio 200 MG 200 MG les} 200 MG Gabapentin Gabapentin No 1{capsu TID Gabapentin 100 MG 100 MG le} 100 MG Famotidine Famotidine No Famotidine 40 MG 40 MG 40 MG Albuterol Albuterol No 2{puffs Albuterol Sulfate HFA Sulfate HFA } Sulfate 108 (90 108 (90 HFA 108 Base) Base) (90 Base) MCG/ACT MCG/ACT MCG/ACT Famotidine Famotidine No Famotidine 40 MG 40 MG 40 MG Benzonatate Benzonatate No TID Benzonatat 100 MG 100 MG e 100 MG Azithromyci Azithromyci No QD Azithromyc n 250 MG n 250 MG in 250 MG Paxil 20 MG Paxil 20 MG No 1{table QD Paxil 20 t_in_th MG e_morni ng} Humira Humira Yes Na Lopez not Common defined [facility] Aspirin Aspirin Yes Na Lopez not Common defined [facility] BusPIRone BusPIRone Yes Na Lopez 1 tablet Common HCl HCl [facility] Metoprolol Metoprolol Yes Na Lopez 1 tablet Common Tartrate Tartrate with food [facility] No 4{capsu BID Lagevrio 200 MG 200 [...] MG Ergocalcife Ergocalcife No 1{capsu Ergocalcif rol 90289 rol 62399 le} fortunato 78011 UNIT UNIT UNIT Gabapentin Gabapentin No 1{capsu [...] MCG/ACT Ergocalcife Ergocalcife No 1{capsu Ergocalcif rol 84394 rol 72835 le} fortunato 36907 UNIT UNIT UNIT Gabapentin Gabapentin No 1{capsu [...] MG Ergocalcife Ergocalcife No 1{capsu Ergocalcif rol 55603 rol 93757 le} fortunato 11234 UNIT UNIT UNIT Montelukast Montelukast No 1{table [...] MG t} Ergocalcife Ergocalcife No 1{capsu rol 66562 rol 51266 le} UNIT UNIT Montelukast Montelukast No 1{table [...] MG Ergocalcife Ergocalcife No 1{capsu Ergocalcif rol 34179 rol 05131 le} fortunato 24600 UNIT UNIT UNIT Montelukast Montelukast No 1{table [...] MG Ergocalcife Ergocalcife No 1{capsu Ergocalcif rol 79213 rol 83413 le} fortunato 04381 UNIT UNIT UNIT Omeprazole Omeprazole No 1{capsu [...] MG Ergocalcife Ergocalcife No 1{capsu Ergocalcif rol 24746 rol 00929 le} fortunato 95734 UNIT UNIT UNIT Humira Humira No Humira Fluticasone Fluticasone No Fluticason Propionate Propionate e 50 MCG/ACT 50 MCG/ACT Propionate 50 MCG/ACT Omeprazole Omeprazole No Omeprazole 40 MG 40 MG 40 MG Vital Signs Vital Name Observation Time Observation Value Comments Source height 2022-08-31 08:20:00 63 [in_i] [facility] weight 2022-08-31 08:20:00 278 [lb_av] [facility] temperature 2022-08-31 08:20:00 98.5 [degF] [facility] bmi 2022-08-31 08:20:00 49.24 kg/m2 [facility] height 2022-08-10 10:20:00 63 [in_i] [facility] weight 2022-08-10 10:20:00 283 [lb_av] [facility] temperature 2022-08-10 10:20:00 98.5 [degF] [facility] bmi 2022-08-10 10:20:00 50.13 kg/m2 [facility] height 2022-06-22 10:20:00 63 [in_i] [facility] weight 2022-06-22 10:20:00 276 [lb_av] [facility] 2022-06-22 10:20:00 48.89 kg/m2 [facility] height 2022-04-26 17:00:00 63 [in_i] [facility] weight 2022-04-26 17:00:00 279 [lb_av] [facility] temperature 2022-04-26 17:00:00 97.9 [degF] [facility] 2022-04-26 17:00:00 49.42 kg/m2 [facility] height 2022-01-05 14:00:00 63 [in_i] [facility] weight 2022-01-05 14:00:00 297 [lb_av] [facility] bmi 2022-01-05 14:00:00 52.61 kg/m2 [facility] blood pressure 2022-01-05 14:00:00 148 mm[Hg] [facility] blood pressure 2022-01-05 14:00:00 102 mm[Hg] [facility] - diastolic [facility] height 2021-12-28 16:00:00 63 [in_i] [facility] weight 2021-12-28 16:00:00 300.4 [lb_av] [facility] temperature 2021-12-28 16:00:00 97.3 [degF] [facility] bmi 2021-12-28 16:00:00 53.21 kg/m2 [facility] oximetry 2021-12-28 16:00:00 100 % [facility] respiratory rate 2021-12-28 16:00:00 18 /min Comm on [facility] blood pressure 2021-12-28 16:00:00 137 mm[Hg] [facility] - systolic [facility] blood pressure 2021-12-28 16:00:00 83 mm[Hg] [facility] - diastolic [facility] height 2021-09-28 09:40:00 63 [in_i] [facility] weight 2021-09-28 09:40:00 283 [lb_av] [facility] temperature 2021-09-28 09:40:00 97.9 [degF] [facility] bmi 2021-09-28 09:40:00 50.13 kg/m2 [facility] height 2021-08-02 10:00:00 63 [in_i] [facility] weight 2021-08-02 10:00:00 282.6 [lb_av] [facility] temperature 2021-08-02 10:00:00 97.0 [degF] [facility] bmi 2021-08-02 10:00:00 50.05 kg/m2 [facility] oximetry 2021-08-02 10:00:00 97 % [facility] respiratory rate 2021-08-02 10:00:00 16 /min [facility] blood pressure 2021-08-02 10:00:00 140 mm[Hg] [facility] - systolic [facility] blood pressure 2021-08-02 10:00:00 62 mm[Hg] [facility] - diastolic [facility] Systolic blood 2021-07-04 00:50:00 180 mm[Hg] Univer sity of pressure [facility] Diastolic blood 2021-07-04 00:50:00 110 mm[Hg] Unive rs[facility] of [facility] Heart rate 2021-07-04 00:50:00 79 /min [facility] Body temperature 2021-07-04 00:50:00 36.67 Gem [facility] Respiratory rate 2021-07-04 00:50:00 18 /min [facility] Body weight 2021-07-04 00:50:00 121.564 kg [facility] Oxygen saturation in 2021-07-04 00:50:00 99 /min [facility] Arterial blood by [facility] Pulse oximetry Branch BP Systolic 2022-01-21 14:32:00 BP Diastolic 2022-01-21 14:32:00 Weight Measured 2022-01-21 14:32:00 276.00 pounds Height Measured 2022-01-21 14:32:00 63.00 inches Body Temperature 2022-01-21 14:32:00 Heart Rate 2022-01-21 14:32:00 Respiratory Rate 2022-01-21 14:32:00 Procedures Procedure Date / Time Performed Performing Clinician Marta woodson XR CHEST 1 VW 2021-07-04 01:14:37 Raissa Tran [facility] NOTICE OF PRIVACY 2021-07-04 00:45:31 Doctor Unassigned, No [facility] Name [facility] CONSENT/REFUSAL FOR 2021-07-04 00:45:10 Doctor Unassigned, No [facility] TREATMENT Plan of Care Planned Activity Planned Date Details Comments Source Goal Plan of Care Note [code = 26941-4] Goal Plan of Care Note [code = 23850-4] Goal Plan of Care Note [code = 76511-6] Goal Plan of Care Note [code = 16215-3] Goal Plan of Care Note [code = 30964-9] Goal Plan of Care Note [code = 43602-7] Goal Plan of Care Note [code = 48565-0] Goal Plan of Care Note [code = 89185-3] Goal Plan of Care Note [code = 14884-4] Goal Plan of Care Note [code = 60921-3] Goal Plan of Care Note [code = 50791-9] Goal Plan of Care Note [code = 99806-2] Goal Plan of Care Note [code = 78860-5] Goal Plan of Care Note [code = 28339-0] Goal Plan of Care Note [code = 24718-1] Goal Plan of Care Note [code = 79349-7] Encounters Start End Encounter Admission Attending Care Care Encounter Source Date/Time Date/Time Type Type Clinicians Facility Department ID 2022-06-01 Outpatient Lopez, Na STLMLC STLMLC [id number] Common 09:18:00 [facility] 2022-04-13 Outpatient Lopez, Na STLMLC STLMLC [id number] Common 15:29:00 [facility] 2022-04-07 Outpatient Lopez, Na STLMLC STLMLC [id number] Common 16:07:00 [facility] 2022-01-04 Outpatient Lopez, Na STLMLC STLMLC [id number] Common 09:31:01 [id number] [facility] 2021-10-20 Outpatient Lopez, Na STLMLC STLMLC [id number] 2 Common 14:09:55 [id number] [facility] 2021-10-20 Outpatient Lopez, Na STLMLC STLMLC [id number] Common 13:47:22 [id number] [facility] 2021-10-20 Outpatient Lopez, Na STLMLC STLMLC [id number] 2 Common 12:29:04 [id number] [facility] 2021-10-20 Outpatient Lopez, Na STLMLC STLMLC [id number] 2 Common 12:03:44 [id number] [facility] 2021-10-20 Outpatient Lopez, Na STLMLC STLMLC [id number] 2 Common 12:03:05 [id number] [facility] 2021-10-20 Outpatient Lopez, Na STLMLC STLMLC [id number] 2 Common 11:43:49 [id number] [facility] 2021-10-20 Outpatient Lopez, Na STLMLC STLMLC [id number] 2 Common 11:35:56 [id number] [facility] 2021-10-20 Outpatient Lopez, Na STLMLC STLMLC [id number] 2 Common 11:18:09 [id number] [facility] 2021-10-20 Outpatient Lopez, Na STLMLC STLMLC [id number] 2 Common 11:04:54 [id number] [facility] 2021-10-20 Outpatient Lopez, Na STLMLC STLMLC [id number] 2 Common 11:04:25 [id number] [facility] 2022-08-31 2022-08-31 OFFICE STLMLC STLMLC [id number] Co mmon 00:00:00 00:00:00 VISIT EST Spir it PT LEVEL 3 [facility] 2022-08-30 2022-08-30 (TEL) STLMLC STLMLC [id number] Co mmon 00:00:00 00:00:00 [facility] 2022-08-29 2022-08-29 Outpatient SFA SFA [id number] Stef 15:26:21 15:26:21 1205 F Mohinder 2022-08-29 2022-08-29 Outpatient [id number] 00:00:00 00:00:00 Visit [id number] 2022-08-10 2022-08-10 (TEL) STLMLC STLMLC [id number] Co mmon 00:00:00 00:00:00 [facility] 2022-08-10 2022-08-10 (TEL) STLMLC STLMLC [id number] Co mmon 00:00:00 00:00:00 [facility] 2022-08-10 2022-08-10 (TEL) STLMLC STLMLC [id number] Co mmon 00:00:00 00:00:00 [facility] 2022-08-10 2022-08-10 OFFICE STLMLC STLMLC [id number] Co mmon 00:00:00 00:00:00 VISIT EST Spir it PT LEVEL 3 [facility] 2022-07-20 2022-07-20 (TEL) STLMLC STLMLC [id number] Co mmon 00:00:00 00:00:00 [facility] 2022-06-29 2022-06-29 (TEL) STLMLC STLMLC [id number] Co mmon 00:00:00 00:00:00 [facility] 2022-06-22 2022-06-22 OFFICE STLMLC STLMLC [id number] Co mmon 00:00:00 00:00:00 VISIT EST Spir it PT LEVEL 3 [facility] 2022-06-20 2022-06-20 (TEL) STLMLC STLMLC [id number] Co mmon 00:00:00 00:00:00 [facility] 2022-06-03 2022-06-03 OFFICE STLMLC STLMLC [id number] Co mmon 00:00:00 00:00:00 VISIT EST Spir it PT LEVEL 3 [facility] 2022-05-16 2022-05-16 (TEL) STLMLC STLMLC [id number] Co mmon 00:00:00 00:00:00 [facility] 2022-05-16 2022-05-16 OFFICE STLMLC STLMLC [id number] Co mmon 00:00:00 00:00:00 VISIT EST Spir it PT LEVEL 3 [facility] 2022-04-27 2022-04-27 (TEL) STLMLC STLMLC [id number] Co mmon 00:00:00 00:00:00 [facility] 2022-04-26 2022-04-26 (TEL) STLMLC STLMLC [id number] Co mmon 00:00:00 00:00:00 [facility] 2022-04-26 2022-04-26 OFFICE STLMLC STLMLC [id number] Co mmon 00:00:00 00:00:00 VISIT EST Spir it PT LEVEL 3 - [facility] 2022-04-20 2022-04-20 Outpatient [id number] 00:00:00 00:00:00 Visit [id number] 2022-03-30 2022-03-30 OFFICE STLMLC STLMLC [id number] Co mmon 00:00:00 00:00:00 VISIT [facility] PT - CHI LEVEL 4 [facility] 2022-02-14 2022-02-14 (TEL) STLMLC STLMLC [id number] Co mmon 00:00:00 00:00:00 [facility] 2022-01-27 2022-01-27 OFFICE STLMLC STLMLC [id number] Co mmon 00:00:00 00:00:00 VISIT EST Spir it PT LEVEL 3 [facility] 2022-01-26 2022-01-26 (TEL) STLMLC STLMLC [id number] Co mmon 00:00:00 00:00:00 [facility] 2022-01-18 2022-01-18 (TEL) STLMLC STLMLC [id number] Co mmon 00:00:00 00:00:00 [facility] 2022-01-05 2022-01-05 OFFICE STLMLC STLMLC [id number] Co mmon 00:00:00 00:00:00 VISIT NEW Spir it PT LEVEL 3 - [facility] 2021-12-28 2021-12-28 OFFICE STLMLC STLMLC [id number] Co mmon 00:00:00 00:00:00 VISIT [facility] PT - CHI LEVEL 4 [facility] 2021-11-15 2021-11-15 (TEL) STLMLC STLMLC [id number] Co mmon 00:00:00 00:00:00 [facility] 2021-11-11 2021-11-11 (TEL) STLMLC STLMLC [id number] Co mmon 00:00:00 00:00:00 [facility] 2021-09-28 2021-09-28 OFFICE STLMLC STLMLC [id number] Co mmon 00:00:00 00:00:00 [facility]IT [facility] PT - CHI LEVEL 4 [facility] 2021-08-27 2021-08-27 (TEL) STLMLC STLMLC [id number] Co mmon 00:00:00 00:00:00 [facility] 2021-08-04 2021-08-04 (TEL) STLMLC STLMLC [id number] Co mmon 00:00:00 00:00:00 [facility] 2021-08-02 2021-08-02 OFFICE STLMLC STLMLC [id number] Co mmon 00:00:00 00:00:00 VISIT [facility] PT - CHI LEVEL 4 [facility] 2021-07-22 2021-07-22 Outpatient Vanesa Cheung HCAPM RADI LA0 [id number] [facility] 08:00:00 08:00:00 63 [facility] 2021-07-03 2021-07-03 Emergency Am[facility], [facility] [id number] Univers 19:47:00 21:16:00 [id number] [facility] [id number] [place] [address] Branch 2021-07-03 2021-07-03 Emergency X [facility] ERT [id number] Univers 19:47:00 19:47:00 ity [facility] 2021-06-07 2021-06-07 Outpatient STLMLC STLMLC [id number] Common 00:00:00 00:00:00 [facility] 2021-05-06 2021-05-06 Outpatient STLMLC STLMLC [id number] Common 00:00:00 00:00:00 [facility] 2021-04-28 2021-04-28 Outpatient STLMLC STLMLC [id number] Common 00:00:00 00:00:00 [facility] 2021-04-27 2021-04-27 Outpatient STLMLC STLMLC [id number] Common 00:00:00 00:00:00 [facility] 2021-03-15 2021-03-15 Outpatient STLMLC STLMLC [id number] Common 00:00:00 00:00:00 [facility] 2021-01-04 2021-01-04 Outpatient STLMLC STLMLC [id number] Common 00:00:00 00:00:00 [facility] 2020-11-03 2020-11-03 Outpatient STLMLC STLMLC [id number] Common 00:00:00 00:00:00 [facility] 2020-08-03 2020-08-03 Outpatient STLMLC STLMLC [id number] Common 00:00:00 00:00:00 [facility] 2020-05-04 2020-05-04 [id number] Common 10:10:00 10:10:[address] [facility] 2020-05-01 2020-05-01 [facility] [id number] Common 09:40:00 09:40:[address] [facility] 2020-02-19 2020-02-19 [facility] [id number] Common 16:06:00 16:06:[address] [facility] [address] [facility] 2019-12-12 2019-12-12 [facility] [id number] Common 15:41:00 15:41:[address] [facility] 2019-09-16 2019-09-16 [facility] [id number] Common 14:40:00 14:40:[address] [facility] 2019-08-15 2019-08-15 [facility] [id number] Common 09:27:00 09:27:[address] [facility] 2019-08-12 2019-08-12 [facility] [id number] Common 09:00:00 09:00:[address] [facility] 2019-07-31 2019-07-31 [facility] [id number] Common 11:46:00 11:46:[address] [facility] 2019-07-29 2019-07-29 [facility] [id number] Common 09:40:00 09:40:[address] [facility] 2019-06-02 2019-06-02 [facility] [id number] Common 09:38:00 09:38:00 t [facility] 2019-05-31 2019-05-31 [facility] [id number] Common 11:30:00 11:30:00 t [facility] 2018-01-19 2018-01-19 [facility] [id number] Common 08:11:00 08:11:[address] [facility] 2018-01-18 2018-01-18 [facility] [id number] Common 10:15:00 10:15:[address] [facility] 2017-12-26 2017-12-26 [facility] [id number] Common 09:30:00 09:30:[address] [facility] Results Test Description Test Time Test Comments Results Result Comments Source SARS-CoV-2 (COVID-19), RT-PCR/TMA 2021-12-10 07:26:55 Test Item Value Reference Range Interpretation Comme nts SARS-CoV-2 INTERPRETATION NEGATIVE SEE NOTE S ARS-CoV-2 RNA NOT (test code = 67144) DETECTED Negative results do not preclude SARS-C [...] ORDER CODE 3509. SOURCE (test code = 81924) NASOPHARYNGEAL Note: Methodology is Ro Charito Real-Time [...] are provided by method given in report:https:// www.[employer]cl inicians/client -communications/ Alternatively, see downloadable PDF fact sheet at:https://www. [employer]COVID- 19-RT-PCR UNLES S OTHERWISE INDICATED, ALL TESTING PERFORMED ATCLINICAL PATH OLSureDone LABORATORIES, [facility]. [address] [place] [address] 5921 4 SALES REPRESENTATIVE UNIFORMS: PRUDENCE SOLIS M.D. CLIA NUMBER [id number] CAP ACCREDITATION N O. [id number] SARS-CoV-2 (COVID-19) by RT-PCR (HIGH RISK)2021-12-10 00:00:00 Test Item Value Reference Range Interpretation Comments SARS-CoV-2 INTERPRETATION NEGATIVE (test code = 46397) SOURCE (test code = 49752) NASOPHARYNGEAL SARS-CoV-2 (COVID-19) by RT-PCR (HIGH RISK)2021-12-10 00:00:00 Test Item Value Reference Range Interpretation Comments SARS-CoV-2 INTERPRETATION NEGATIVE (test code = 06795) SOURCE (test code = 43141) NASOPHARYNGEAL SARS-CoV-2 (COVID-19) by RT-PCR (HIGH RISK)2021-12-10 00:00:00 Test Item Value Reference Range Interpretation Comments SARS-CoV-2 INTERPRETATION NEGATIVE (test code = 07243) SOURCE (test code = 03323) NASOPHARYNGEAL Lipid Panel w/ Chol/HDL [id number] 00:00:00 Test Item Value Reference Range Interpretation Comments Cholesterol, Total (test code = 2093-3) 186 100-199 Triglycerides (test code = 2571-8) 86 0-149 HDL Cholesterol (test code = 2085-9) 59 >39 T. Chol/HDL Ratio (test code = 9830-1) 3.2 0.0-4.4 JOSÉ w/Reflex if [id number] 00:00:00 Test Item Value Reference Range Interpretation Comments JOSÉ Direct (test code = 8061-4) Negative Negative Comp. Metabolic Panel (14) (CMP)2021-08-02 00:00:00 Test Item Value Reference Range Interpretation Comments Glucose (test code = 2345-7) 75 65-99 BUN (test code = 3094-0) 10 6-24 Creatinine (test code = 2160-0) 0.74 0.57-1.00 eGFR If NonAfricn Am (test code = 97 >59 29426-3) eGFR If Africn Am (test code = 50534-9) 112 >59 BUN/Creatinine Ratio (test code = 14 06-17 3097-3) Sodium (test code = 2951-2) 141 134-144 Potassium (test code = 2823-3) 3.7 3.5-5.2 Chloride (test code = 2075-0) 102 96-106 Carbon Dioxide, Total (test code = 21 -2028-05) Calcium (test code = 19987-3) 9.6 8.7-10.2 Protein, Total (test code = 2885-2) 8.8 6.0-8.5 Albumin (test code = 1751-7) 4.6 3.8-4.8 Globulin, Total (test code = 65587-9) 4.2 1.5-4.5 A/G Ratio (test code = 1759-0) 1.1 1.2-2.2 Bilirubin, Total (test code = 1975-2) 0.6 0.0-1.2 Alkaline Phosphatase (test code = 76 44-121 6768-6) AST (SGOT) (test code = 1920-8) 20 0-40 ALT (SGPT) (test code = 1742-6) 19 0-32 CBC With Differential/[id number] 00:00:00 Test Item Value Reference Range Interpretation [...] Granulocytes (test code = 0 Not Estab. 73986-9) Immature Grans (Abs) (test code = 0.0 0.0-0.1 43015-6) NRBC (test code = 61667-2) Hematology Comments: (test code = 67441-2) Rheumatoid Arthritis [id number] 00:00:00 Test Item Value Reference Range Interpretation Comments Rheumatoid Factor (RF) (test code = <10.0 0.0-13.9 88742-2) C-Reactive Protein, Quant (CRP)2021-08-02 00:00:00 Test Item Value Reference Range Interpretation Comments C-Reactive Protein, Quant (test code = 13 0-10 1987-5) Vitamin D, 05-Cbvyvsc4639-01-08 00:00:00 Test Item Value Reference Range Interpretation Comments Vitamin D, 25-Hydroxy (test code = 24.0 30.0-100.0 1988-) - CT ABD PELVIS [id number] 09:50:00 [facility] 1975 Sex: F Name: HSE GUARDADO [facility] : 1975 Age/S: 46 / F [id number] [place] Unit #: [id number] Loc: [place] [address] Phys: Vanesa Nunez MD Acct: [id number] Dis Date: Status: REG CLI PHONE #: [phone] Exam Date: 07/22/2021917 FAX #: Reason: CROHNS DISEASE, UNSPECIFIED, WITHOUT COMPLICATI EXAMS: CPT: [id number] CT ABD PELVIS W/CONT 46983 HISTORY: CROHN'S DISEASE, UNSPECIFIED, WITHOUT COMPLICATIONS TECHNIQUE: [...] 1 Signed Report (CONTINUED) Name: SHE GUARDADO [place] : 1975 Age/S: 46 / F [address] [place] Unit #: [id number] Loc: [place] [address] Phys: Vanesa Nunez MD Acct: [id number] Dis Date: Status: REG CLI PHONE #: [phone] Exam Date: 07/22/2021917 FAX #: Reason: CROHNS DISEASE, UNSPECIFIED, WITHOUT COMPLICATI EXAMS: CPT: [id number] CT ABD PELVIS W/CONT 81293 (Continued) IMPRESSION: 1. There is mild diffusethickening of the transverse colon and splenic flexure as well as the distal descending colon and upper sigmoid. There is no pericolonic inflammation. Findings may represent infectious or inflammatory colitis. 2. Status post cholecystectomy. 3. Evidence of right colonic surgery. at 0950 Reported and signed by: Sudhir Calix M.D.CC: Vanesa Nunez MD; Noemy Lopez DO Technologist:Mukul Ryan, RT(R) CTDI: DLP: Trnscb Date/Time: 07/22/2021 (0950) t.SDR.NB16 Orig Print D/T: S: 07/22/2021 (0124) PAGE 2 Signed [id number] 08:27:00 Test Item Value Reference Range Interpretation Comments ISTAT-BUN (test code = BUNP) 8 mg/dL 8-26 N BEDSIDE [id number] 08:27:00 Test Item Value Reference Range Interpretation Comments BEDSIDE CREATININE (test code = 0.6 mg/dL 0.6-1.3 N CREATBED) SARS-COV-2 (COVID19), NAAT [ADDED]2020-10-02 00:00:00 Test Item Value Reference Range Interpretation Comments SARS-CoV-2 INTERPRETATION (test NEGATIVE code = 22688) SOURCE (test code = 44963) NOT SPECIFIED SARS-COV-2 (COVID19), NAAT [ADDED]2020-10-02 00:00:00 Test Item Value Reference Range Interpretation Comments SARS-CoV-2 INTERPRETATION (test NEGATIVE code = 78892) SOURCE (test code = 28111) NOT SPECIFIED SARS-COV-2 (COVID19), NAAT [ADDED]2020-10-02 00:00:00 Test Item Value Reference Range Interpretation Comments SARS-CoV-2 INTERPRETATION (test NEGATIVE code = 58206) SOURCE (test code = 86038) NOT SPECIFIED SARS-CoV-2 (COVID-19) by RT-PCR (HIGH RISK)2020-04-17 00:00:00 Test Item Value Reference Range Interpretation Comments SARS-CoV-2 INTERPRETATION (test NEGATIVE code = 02434) SOURCE (test code = 13349) NOT SPECIFIED SARS-CoV-2 (COVID-19) by RT-PCR (HIGH RISK)2020-04-17 00:00:00 Test Item Value Reference Range Interpretation Comments SARS-CoV-2 INTERPRETATION (test NEGATIVE code = 55714) SOURCE (test code = 70288) NOT SPECIFIED SARS-CoV-2 (COVID-19) by RT-PCR (HIGH RISK)2020-04-17 00:00:00 Test Item Value Reference Range Interpretation Comments SARS-CoV-2 INTERPRETATION (test NEGATIVE code = 93721) SOURCE (test code = 71938) NOT SPECIFIED POC, COVID 19 Antigen + Flu by SofiaPOC, COVID 19 Antigen + Flu by Jennifer
[2022-11-18] MEDS ORDERED: HYDROCOD 2.5mg-ACETAMIN 108mg/5mL Soln ONE (22:34)
[2022-11-18 22:50] LABS: Hematocrit 35.8 % (36.0-45.0); Lymphocytes % 40.3 % (15.3-44.8); MCV 78.1 fL (80-100); MPV 7.9 fL (7.6-11.3); RBC Red Blood Cell Count 4.58 M/uL (3.86-4.86)
[2022-11-18 23:09] LABS: Potassium 3.7 mmol/L (3.5-5.1); Troponin High Sensitivity 4.3 pg/mL (<58.9)
--- NOTE | 2022-11-19 01:02 | EDPHYS ---
Physician Documentation [facility] Name: Dori Guardado Age: 47 yrs Sex: Female : 1975 Arrival Date: 11/18/2022 Time: 20:05 Bed 14 Private MD: ED Physician Aravind Martinez HPI: 11/18 21:30 This 47 yrs old Black Female presents to ER via Ambulatory with complaints of Neck cp Swelling, Facial Pain. 21:30 The patient or guardian complains of pain, that is acute, swelling, tenderness. The cp symptoms are located on the right lateral neck. Onset: The symptoms/episode began/occurred today. 21:30 Associated signs and symptoms: Pertinent positives: right ear pain, neck swelling, cp Pertinent negatives: fever, numbness, vomiting. 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 Flu vaccine is up to date. - Social history:: Smoking status: Patient denies any tobacco usage or history of. Patient/guardian denies using alcohol, street drugs. ROS: 21:35 Constitutional: Negative for body aches, chills, fever, poor PO intake. cp 21:35 Eyes: Negative for injury, pain, redness, and discharge. cp 21:35 ENT: Positive for difficulty swallowing, ear pain, sore throat, Negative for drainage from ear(s), difficulty handling secretions. 21:35 Neck: Positive for pain with movement, pain at rest, swelling, of the right lateral neck. 21:35 Cardiovascular: Negative for chest pain, edema, palpitations. 21:35 Respiratory: Negative for cough, shortness of breath, wheezing. 21:35 Abdomen/GI: Negative for abdominal pain, vomiting, diarrhea, constipation. 21:35 Skin: Negative for cellulitis, rash. 21:35 Neuro: Negative for altered mental status, weakness. 21:35 All other systems are negative. Exam: 21:40 Constitutional: The patient appears in no acute distress, alert, awake, cp non-diaphoretic, non-toxic, well developed, well nourished, obese. 21:40 Head/Face: Normocephalic, atraumatic. cp 21:40 Eyes: Periorbital structures: appear normal, Conjunctiva: normal, no exudate, no injection, Sclera: no appreciated abnormality, Lids and lashes: appear normal, bilaterally. 21:40 ENT: External ear(s): are unremarkable, Nose: is normal, Mouth: Lips: moist, Oral mucosa: moist, Posterior pharynx: Airway: no evidence of obstruction, patent, Tonsils: with erythema, no enlargement, no exudate, swelling, is not appreciated, erythema, that is mild, exudate, is not appreciated. 21:40 Neck: ROM/movement: pain, that is mild, with any movement, limited range of motion, is not appreciated, Lymph nodes: lymphadenopathy is appreciated, post auricular nodes. 21:40 Chest/axilla: Inspection: normal. 21:40 Cardiovascular: Rate: normal, Rhythm: regular, Edema: is not appreciated, JVD: is not appreciated. 21:40 Respiratory: the patient does not display signs of respiratory distress, Respirations: normal, no use of accessory muscles, no retractions, labored breathing, is not present, Breath sounds: are clear throughout, no decreased breath sounds, no stridor, no wheezing. 21:40 Abdomen/GI: Exam negative for discomfort, distension, guarding, Inspection: obese 21:40 Skin: cellulitis, is not appreciated, no rash present. 22:15 ECG was reviewed by the Attending Physician. cp Vital Signs: 20:09 BP 147 / 93; Pulse 79; Resp 17 S; Temp 98.1(O); Pulse Ox 100% on R/A; Weight 121.11 kg lg3 (R); Height 5 ft. 3 in. (160.02 cm) (R); Pain 5/10; 22:37 BP 136 / 80; Pulse 87; Resp 17; Temp 97.8; Pulse Ox 97% ; Pain 0/10; ke1 20:09 Body Mass Index 47.30 (121.11 kg, 160.02 cm) lg3 MDM: 20:40 Patient medically screened. 22:00 Differential diagnosis: torticollis, strep throat, tonsillitis, retropharyngeal abscess. 11/19 01:00 Data reviewed: vital signs, nurses notes, lab test result(s), EKG, radiologic studies, cp CT scan, plain films. 01:00 Consideration of Admission/Observation Escalation of care including cp admission/observation considered. I considered the following discharge prescriptions or medication management in the emergency department Medications were administered in the Emergency Department. See MAR. Independent interpretation of the following test(s) in the Emergency Department X-Ray: My interpretation is image of chest negative for focal pneumonia. Counseling: I had a detailed discussion with the patient and/or guardian regarding: the historical points, exam findings, and any diagnostic results supporting the discharge/admit diagnosis, lab results, radiology results, to return to the emergency department if symptoms worsen or persist or if there are any questions or concerns that arise at home. Response to treatment: the patient's symptoms have mildly improved after treatment, and as a result, I will discharge patient. 11/18 21: Order name: Basic Metabolic Panel; Complete Time: 23:38 11/18 23:38 Interpretation: Reviewed. 11/18 20: Order name: CBC with Diff; Complete Time: 23:38 11/18 23:38 Interpretation: Normal except: HGB 11.5; HCT 35.8; MCV 78.1; MCH 25.1; RDW 16.8. 11/18 21: Order name: Troponin HS; Complete Time: 23:38 11/18 23:38 Interpretation: Troponin HS 4.3; Reviewed. 11/18 21:29 Order name: [place] Screen Profile; Complete Time: 23:38 11/18 21: Order name: Strep; Complete Time: 23:38 11/18 23:38 Interpretation: Reviewed. 11/19 01:18 Order name: Throat Culture EDCT 11/18 21:29 Order name: CT Soft Tissue Neck W/contr 11/18 21:29 Order name: XRAY Chest (1 view) 11/18 20:29 Order name: EKG; Complete Time: 21:29 11/18 21:29 Order name: Cardiac monitoring; Complete Time: 22:10 cp 11/18 21:29 Order name: EKG - Nurse/Tech; Complete Time: 22:10 cp 11/18 21:29 Order name: IV Saline Lock; Complete Time: 22:39 cp 11/18 21:29 Order name: Labs collected and sent; Complete Time: 22:44 cp 11/18 21:29 Order name: O2 Per Protocol; Complete Time: 22:11 cp 11/18 21:29 Order name: O2 Sat Monitoring; Complete Time: 22:11 cp EC/24 22:15 Rate is 74 beats/min. Rhythm is regular. WA interval is normal. QRS interval is normal. cp QT interval is normal. Interpreted by me. Reviewed by me. Administered Medications: 22:34 Drug: Lortab Liquid 10 ml Route: PO; ke1 23:02 Follow up: Response: Pain is decreased [facility] 11/19 00:00 Drug: Decadron - Dexamethasone 10 mg Route: IVP; Site: left antecubital; 1 01:05 Drug: Rocephin (cefTRIAXone) 1 grams Route: IV; Rate: calculated rate; Site: left 1 antecubital; Disposition Summary: 11/19/22 01:00 Discharge Ordered Location: Home cp Problem: new cp Symptoms: have improved cp Condition: Stable cp Diagnosis - Acute tonsillitis, unspecified cp Followup: cp - With: Private Physician - When: 2 - 3 days - Reason: Recheck today's complaints Discharge Instructions: - Discharge Summary Sheet cp - Tonsillitis cp Forms: - Medication Reconciliation Form cp - Thank You Letter cp - Antibiotic Education cp - Prescription Opioid Use cp Prescriptions: - Lidocaine Viscous - take 5 milliliter by ORAL route every 4-6 hours; 1 bottle; Refills: 0, Product cp Selection Permitted - Augmentin 875-125 mg Oral Tablet - take 1 tablet by ORAL route every 12 hours for 10 days; 20 tablet; Refills: 0, cp Product Selection Permitted Signatures: Dispatcher [employer] Hardy Barrera PA PA cp Gibson, Lacie, RN RN lg3 Ya Dunn RN RN ke1
--- NOTE | 2022-11-19 01:02 | ER ---
Nurse's Notes [facility] Name: Dori Guardado Age: 47 yrs Sex: Female : 1975 Arrival Date: 11/18/2022 Time: 20:05 Bed 14 Private MD: Diagnosis: Acute tonsillitis, unspecified Presentation: 11/18 20:09 Chief complaint: Patient states: pain in the right anglican, down into ear and right side lg3 of neck. there is also a knot behind my ear. started earlier today. Coronavirus screen: Client denies travel out of the [place] in the last 14 days. At this time, the client does not indicate any symptoms associated with coronavirus-19. Ebola Screen: No symptoms or risks identified at this time. Initial Sepsis Screen: Does the patient meet any 2 criteria? No. Patient's initial sepsis screen is negative. Does the patient have a suspected source of infection? No. Patient's initial sepsis screen is negative. Risk Assessment: Do you want to hurt yourself or someone else? Patient reports no desire to harm self or others. Onset of symptoms was November 18, 2022. 20:09 Method Of Arrival: Ambulatory lg3 20:09 Acuity: KASH 3 lg3 Triage Assessment: 20:11 General: Appears in no apparent distress. uncomfortable, Behavior is calm, cooperative. lg3 Pain: Complains of pain in right temporal area, right ear and right mandible. EENT: swelling and reddening of right cheek. Neuro: No deficits noted. Carr Agitation-Sedation Scale (RASS): 0 - Alert and Calm Level of Consciousness is awake, alert, obeys commands, Oriented to person, place. Cardiovascular: No deficits noted. Denies chest pain, shortness of breath. Respiratory: No deficits noted. Airway is patent Trachea midline Respiratory effort is even, unlabored, Respiratory pattern is regular, symmetrical. GI: No deficits noted. No signs and/or symptoms were reported involving the gastrointestinal system. : No deficits noted. No signs and/or symptoms were reported regarding the genitourinary system. Derm: Skin is intact, is healthy with good turgor, Skin is dry, Skin is normal. Musculoskeletal: No deficits noted. No signs and/or symptoms reported regarding the musculoskeletal system. Circulation, motion, and sensation intact. Range of motion: intact in all extremities. DISPOSAL MAN: 20:11 LMP N/A - Hysterectomy lg3 Historical: - Allergies: 20:11 No Known Allergies; lg3 - Home Meds: 20:11 amlodipine oral [Active]; aspirin 81 mg Oral chew [Active]; Famotidine Oral [Active]; lg3 Humira subcutaneous [Active]; mesalamine Oral [Active]; Dicyclomine Oral [Active]; - PMHx: 20:11 Atrial Fib; bowel obstruction; Crohn's; Hypertension; lg3 - PSHx: 20:11 Appendectomy; section; Cholecystectomy; hyst; lg3 - Immunization history:: Adult Immunizations up to date, Client reports having NOT received the Covid vaccine. Flu vaccine is up to date. - Social history:: Smoking status: Patient denies any tobacco usage or history of. Patient/guardian denies using alcohol, street drugs. Screenin:06 [facility] ED Fall Risk Assessment (Adult) History of falling in the last 3 months, ke1 including since admission No falls in past 3 months (0 pts) Confusion or Disorientation No (0 pts) Intoxicated or Sedated No (0 pts) Impaired Gait No (0 pts) Mobility Assist Device Used No (0 pt) Altered Elimination No (0 pt) Score/Fall Risk Level 0 - 2 = Low Risk. Abuse screen: Denies threats or abuse. Nutritional screening: No deficits noted. Tuberculosis screening: No symptoms or risk factors identified. Vital Signs: 20:09 BP 147 / 93; Pulse 79; Resp 17 S; Temp 98.1(O); Pulse Ox 100% on R/A; Weight 121.11 kg lg3 (R); Height 5 ft. 3 in. (160.02 cm) (R); Pain 5/10; 22:37 BP 136 / 80; Pulse 87; Resp 17; Temp 97.8; Pulse Ox 97% ; Pain 0/10; ke1 20:09 Body Mass Index 47.30 (121.11 kg, 160.02 cm) lg3 ED Course: 20:05 Patient arrived in ED. rg4 20:11 Triage completed. lg3 20:11 Arm band placed on right wrist. lg3 20:19 Hardy Mahoney PA is PHCP. cp 20:19 Aravind Martinez MD is Attending Physician. cp 21:41 Ebrottie, Kouassi, RN is Primary Nurse. ke1 22:11 Placed in gown. Bed in low position. Call light in reach. Side rails up X 1. Client mb9 placed on continuous cardiac and pulse oximetry monitoring. NIBP monitoring applied. court recording monitor on. 22:11 EKG done, by ED staff, reviewed by Hardy SON. mb9 22:48 Inserted saline lock: 22 gauge in left antecubital area, using aseptic technique. Blood oe collected. 23:07 No provider procedures requiring assistance completed. ke1 11/19 01:13 XRAY Chest (1 view) In Process Unspecified. EDMS 01:14 CT Soft Tissue Neck W/contr In Process Unspecified. EDMS 02:07 IV discontinued, intact, bleeding controlled, No redness/swelling at site. Pressure vc1 dressing applied. Administered Medications: 11/18 22:34 Drug: Lortab Liquid 10 ml Route: PO; ke1 23:02 Follow up: Response: Pain is decreased ke1 11/19 00:00 Drug: Decadron - Dexamethasone 10 mg Route: IVP; Site: left antecubital; ke1 01:05 Drug: Rocephin (cefTRIAXone) 1 grams Route: IV; Rate: calculated rate; Site: left ke1 antecubital; Medication: 02:07 VIS not applicable for this client. vc1 Outcome: 01:00 Discharge ordered by MD. cp 02:06 Discharged to home ambulatory. vc1 02:06 Condition: good 02:06 Discharge instructions given to patient, Instructed on discharge instructions, follow up and referral plans. Demonstrated understanding of instructions, follow-up care, Prescriptions given X 2. 02:07 Patient left the ED. vc1 Signatures: Dispatcher [employer] EDMS Hardy Mahoney PA PA cp Garcia, Rubi rg4 Navin Blake Lacie, RN RN lg3 Cathy Thompson RN RN 1 Ya Dunn, RN Maira Grant RN RN mb9
[2022-11-19] MEDS ORDERED: dexAMETHasone 10 MG/ML VIAL ONE (01:10)
[2022-11-19] MEDS ORDERED: CEFTRIAXONE 1000 MG/VIAL ONE (01:11)
[2022-11-19] MEDS ORDERED: dexAMETHasone 4 MG TAB ONE (01:31)
[2022-11-19 02:39] VITALS: BP 136/80; TEMP 97.8; O2SAT 97
--- NOTE | 2022-11-20 18:18 | RAD REPORT ---
EXAM DESCRIPTION: RAD - Chest Single View - 11/18/2022 10:58 pm CLINICAL HISTORY: 7 years Female, neck swelling COMPARISON: Chest radiograph dated 04/06/2022 FINDINGS: No focal lung consolidation. No pleural effusion. No pneumothorax. Cardiomediastinal silhouette is within normal limits. No acute osseous abnormality. IMPRESSION: No acute cardiopulmonary disease. Electronically signed by: Mike Escobar DO 11/18/2022 11:27 PM TIMBER FRAMER HELPER Due to temporary technical issues with the PACS/Fluency reporting system, reports are being signed by the in house radiologists without review as a courtesy to insure prompt reporting. The interpreting radiologist is fully responsible for the content of the report.
--- NOTE | 2022-11-20 18:19 | RAD REPORT ---
EXAM DESCRIPTION: CT - Soft Tissue Neck W/Contr - 11/19/2022 6:03 am CLINICAL HISTORY: The patient is 47 years old and is Female; right sided ear and neck pain TECHNIQUE: Axial computed tomography images of the neck with intravenous contrast. Sagittal and co callie reformatted images were created and reviewed. This CT exam was performed using one or more of the following dose reduction techniques: automated exposure control, adjustment of the mA and/or k V according to patient size, and/or use of iterative reconstruction technique. COMPARISON: No relevant prior studies available. FINDINGS: OROPHARYNX: Mild enlargement of the palatine tonsils is present. There is no peritonsill ar abscess. HYPOPHARYNX: Unremarkable. LARYNX: Unremarkable. Normal epiglottis. TRACHEA: Unremarkable. RETROPHARYNGEAL SPACE: Unremarkable. SUBMANDIBULAR/PAROTID GLANDS: Unremarkable. Glands are normal in size. THYROID: Unremarkable. No enlarged or calcified nodules. BONES/JOINTS: No acute fracture. SOFT TISSUES: The soft tissues are normal. VASCULATURE: Unremarkable. Normal in course and caliber. LYMPH NODES: Unremarkable. No enlarged lymph nodes. LUNG APICES: The lung apices are clear. IMPRESSION: Findings suggest mild tonsillitis. Electronically signed by: Zhanna Acevedo MD 11/19/2022 12:24 AM TECHNICAL SPEC Due to temporary technical issues with the PACS/Fluency reporting system, reports are being signed by the in house radiologists without review as a courtesy to insure prompt reporting. The interpreting radiologist is fully responsible for the content of the report.
--- NOTE | 2022-11-21 18:46 | EKG ---
Test Date: 2022-11-18 Test Time: 22:09:00 Wellness Spa Manager: MB MEASUREMENT RESULTS: Intervals: Rate: 74 MO: 162 QRSD: 80 QT: 378 QTc: 419 [place]: P: 57 MO: 162 QRS: 26 T: 28 INTERPRETIVE STATEMENTS: Normal sinus rhythm Normal ECG Compared to ECG 04/29/2022 19:26:33 No significant changes Electronically Signed On 11-21-22 18:42:19 BATTERY BUILDER by Avery Holt
== END 2022-11-19 02:07 | disposition home or self-care (01) ==
LOC: ER 20:02
DX: J03.90 Acute tonsillitis, unspecified (principal); I10 Essential (primary) hypertension; Z79.82 Long term (current) use of aspirin
CPT/HCPCS: 93005; 87070; 85025; 80048; 36415; 86308; 87081; 84484; 70491; 71045; 96375; 96374; 99284; Q9967; J8540; J1100

== ENCOUNTER 2023-01-17 04:13 | Emergency (ER) | payer OTHER ==
--- OUTSIDE RECORDS SUMMARY | 2023-01-17 04:23 | XMS REPORT | Continuity of Care Document ---
:1975 Author Organization [facility] t Address [address] [place] [address] Care Team Providers Name Role Phone Noemy Lopez Primary Care Physician Taylor Chung Attending Clinician Unavailable Karol Rich Attending Clinician Unavailable Noemy Lopez Attending Clinician Unavailable Vanesa Nunez Attending Clinician Unavailable Raissa Tran DO Attending Clinician Noemy Lopez Admitting Clinician Unavailable Payers Payer Name Policy Type Policy Number Effective Date Expiration Date S [facility] C1 [id number] 2020 [facility] 00:00:[address] [facility] C1 [id number] 2020 [facility] 00:00:[address] [facility] C1 [id number] 2020 [facility] 00:00:[facility] Problems Condition Condition Condition Status Onset Resolution Last Treating Co mments Source Name Details Category Date Date Treatment Clinician Date [id number] Microcytic Problem Co mmon anemia Spirit [facility] [id number] [place], [place] [address] joint, Spirit knee, - [facility]I right [facility] [id number] Sinusitis, Problem Com mon maxillary, Spirit chronic [facility] [id number] Recurrent Problem Com mon falls [facility] [id number] Balance Problem Commo n problem [facility] Morbid Obesity, Problem Common obesity morbid, Spirit BMI 50 or - CHI higher [facility] [id number] Crohn's Problem Commo n disease in Spirit remission [facility] [id number] Gastroesop Problem Co mmon hageal [facility] reflux - CHI disease, [facility] s presence Medica l not Center specified Iron Iron Problem Common deficiency deficiency Sp jose anemia anemia, - CHI unspecifie [facility] iron [facility] deficiency Medica l anemia Center type [id number] Adult Problem Common general [facility] medical - [facility] exam [facility] [id number] Hematuria, Problem Com mon unspecifie Spirit d - CHI [facility] [id number] Multiple Problem Commo n joint pain [facility] [id number] Urinary Problem Common tract Spirit infection, - CHI site not [facility] [id number] BMI Problem Common 50.0-59.9, [facility] adult [facility] [id number] Vitamin D Problem Comm on deficiency [facility] [id number] Grieving Problem Comm on [facility] [id number] Seasonal Problem Comm on allergic Spirit rhinitis, - CHI unspecifie [facility] [id number] Abdominal Problem Com mon bloating Spirit [facility] [id number] Crohn's Problem Common disease 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 and anxiety - CHI depressive [facility] High blood High blood Problem C ommon pressure pressure [facility] [id number] Other Problem Common chronic [facility] pain [facility] [id number] Esophageal Problem Com mon stricture [facility] No known No known Disease Unive rs active active ity of problems problems [facility] Allergies, Adverse Reactions, Alerts Allergy Allergy Status Severity Reaction(s) Onset Inactive Treating Comm ents Source Name Type Date Date Clinician No Known DA Active U 2020-09 [facility] [facility] 00:[facility]: d 00 [facility] Center No Known DA Active U 2020-09 [facility] Allergie 0-28 [facility] 00:[facility]: d 00 [facility] NO KNOWN Drug Active Univers ALLERGIE Class ity of S [facility] Social History Social Habit Start Date Stop Date Quantity Comments Source History of Tobacco Use Co mmon [facility] Sex Assigned At Com mon [facility] Smoking Status Start Date Stop Date Source Unknown if ever smoked [facility] Never Smoker Common [facility] Medications Ordered Filled Start Stop Current Ordering Indication Dosage Frequency Signature Comments Components Source Medication Medication Date Date Medication? Clinician (SIG) Name Name Kenalog 0.1 Kenalog 0.1 2021-09- No BID Kenalog % % 11-01 0.1 % [...] 00:00 _food_o 00 :00 r_milk} Indomethaci Indomethaci 2021-0 2- No 1{capsu Indomethac n 50 MG n 50 MG 06-22 le_with in 50 MG 00:00: 00:00 _food_o 00 :00 r_milk} HUMIRA PEN 0 No KIT 06-06 CD/UC/HS 00:00: 00 IPRATROPIUM 0 No SPR 0.06% 05-26 00:00: 00 Telmisartan Telmisartan 2021-0 No 1{table QD Telmisarta 20 MG 20 MG 8-22 t_at_be n 20 MG 00:00: dtime} 00 Telmisartan Telmisartan 2021-0 No 1{table QD Telmisarta 20 MG 20 MG 8-22 t_at_be n 20 MG 00:00: dtime} 00 Dose 2021-0 No Unknown 8-12 00:00: 00 Dose 2021-0 No Unknown 8-11 00:00: 00 Dose 2021-0 No Unknown 8-01 00:00: 00 fluconazole 2-0 No 1mg 150 [...] Unknown 7-27 00:00: 00 Augmentin Augmentin 2021-0 2021- No 1{table BID Augmentin 500-125 MG 500-125 MG 03-30-13 t} 500-125 MG 00:00: 00:00 00 :00 Sudafed 12 2021-0 No 1mg Hour 120 mg 6-17 tablet,exte 00:00: nded 00 release Sudafed 12 2-0 No 1mg Hour 120 mg 6-17 tablet,exte [...] 250 mg 01-21 tablet 00:00: 00 Dose 2021-0 No Unknown 01-21 00:00: 00 Dose 2-0 [...] 250 mg 2-18 tablet 00:00: 00 prednisone 2022-0 No mg 20 mg 2-18 tablet 00:00: 00 azithromyci 2-0 No mg n 250 mg 2-18 tablet 00:00: 00 Azithromyci Azithromyci 2022-0 2022- No QD Azithromyc n 250 MG n 250 MG 09-28 in 250 MG 00:00: 00:00 00 :00 No known 2020-1 No Univers medications 0-09 ity of 19:54: [address] metoprolol 1-0 No 1mg tartrate 50 8-10 mg tablet 00:00: 00 omeprazole 1-0 No 1mg 20 mg 8-10 capsule,del 00:00: ayed 00 release metoprolol 1-0 No 1mg tartrate 50 8-10 mg tablet [...] HCl 10 MG 00:00: 00 Cetirizine Cetirizine No 1{table Cetirizine HCl 10 MG HCl 10 MG 8-04 t} HCl 10 MG 00:00: 00 Pantoprazol Pantoprazol 2019-0 Yes Na Lopez 1 tablet Common e Sodium e Sodium 8-10 Spirit 00:00: - [facility]I 00 [facility] Ergocalcife Ergocalcife 2018- 2020- No Na Lopez 1 capsule Common rol rol -18 02-16 Spirit 00:00: 00:00 - CHI 00 :00 [facility] Paxil Paxil 0 Yes Na Lopez 1 tablet Comm on 12-26 in the Spirit 00:00: morning - CHI 00 [facility] Humira Humira No Humira Fluticasone Fluticasone No [...] MG Ergocalcife Ergocalcife No 1{capsu Ergocalcif rol 98605 rol 98821 le} fortunato 03932 UNIT UNIT UNIT Famotidine Famotidine No 1{table [...] MG Ergocalcife Ergocalcife No 1{capsu Ergocalcif rol 25460 rol 26369 le} fortunato 46955 UNIT UNIT UNIT busPIRone busPIRone No 1{table [...] MG Ergocalcife Ergocalcife No 1{capsu Ergocalcif rol 19100 rol 31179 le} fortunato 74500 UNIT UNIT UNIT Montelukast Montelukast No 1{table [...] MG Ergocalcife Ergocalcife No 1{capsu Ergocalcif rol 09060 rol 75003 le} fortunato 14183 UNIT UNIT UNIT Montelukast Montelukast No 1{table [...] MG Ergocalcife Ergocalcife No 1{capsu Ergocalcif rol 66754 rol 21662 le} fortunato 14464 UNIT UNIT UNIT Flonase 50 Flonase 50 [...] MG Ergocalcife Ergocalcife No 1{capsu Ergocalcif rol 38011 rol 46787 le} fortunato 14642 UNIT UNIT UNIT PARoxetine PARoxetine No PARoxetine [...] MG Ergocalcife Ergocalcife No 1{capsu Ergocalcif rol 75019 rol 77500 le} fortunato 31778 UNIT UNIT UNIT PARoxetine PARoxetine No PARoxetine [...] MG Ergocalcife Ergocalcife No 1{capsu Ergocalcif rol 24570 rol 78799 le} fortunato 09387 UNIT UNIT UNIT Aspirin 81 Aspirin 81 [...] MG Ergocalcife Ergocalcife No 1{capsu Ergocalcif rol 11753 rol 85283 le} fortunato 33566 UNIT UNIT UNIT ALPRAZolam ALPRAZolam No 1{table [...] MG Ergocalcife Ergocalcife No 1{capsu Ergocalcif rol 05505 rol 51841 le} fortunato 85449 UNIT UNIT UNIT ALPRAZolam ALPRAZolam No 1{table [...] MG Ergocalcife Ergocalcife No 1{capsu Ergocalcif rol 31517 rol 60220 le} fortunato 38691 UNIT UNIT UNIT ALPRAZolam ALPRAZolam No 1{table [...] MG Ergocalcife Ergocalcife No 1{capsu Ergocalcif rol 94513 rol 52994 le} fortunato 44768 UNIT UNIT UNIT Benzonatate Benzonatate No TID [...] MG Ergocalcife Ergocalcife No 1{capsu Ergocalcif rol 65268 rol 32903 le} fortunato 29751 UNIT UNIT UNIT Benzonatate Benzonatate No TID [...] MG Ergocalcife Ergocalcife No 1{capsu Ergocalcif rol 06397 rol 40459 le} fortunato 22666 UNIT UNIT UNIT Famotidine Famotidine No Famotidine [...] MG Ergocalcife Ergocalcife No 1{capsu Ergocalcif rol 08734 rol 50920 le} fortunato 52707 UNIT UNIT UNIT Famotidine Famotidine No Famotidine [...] MG Ergocalcife Ergocalcife No 1{capsu Ergocalcif rol 33757 rol 34148 le} fortunato 74596 UNIT UNIT UNIT Gabapentin Gabapentin No 1{capsu [...] MCG/ACT Ergocalcife Ergocalcife No 1{capsu Ergocalcif rol 01474 rol 25527 le} fortunato 45210 UNIT UNIT UNIT Gabapentin Gabapentin No 1{capsu [...] MG Ergocalcife Ergocalcife No 1{capsu Ergocalcif rol 57577 rol 66313 le} fortunato 20369 UNIT UNIT UNIT Montelukast Montelukast No Montelukas [...] MG Ergocalcife Ergocalcife No 1{capsu Ergocalcif rol 19033 rol 77518 le} fortunato 16237 UNIT UNIT UNIT Cetirizine Cetirizine No Cetirizine [...] MG Ergocalcife Ergocalcife No 1{capsu Ergocalcif rol 47152 rol 54284 le} fortunato 13089 UNIT UNIT UNIT Cetirizine Cetirizine No Cetirizine [...] MG Ergocalcife Ergocalcife No 1{capsu Ergocalcif rol 83919 rol 53266 le} fortunato 55807 UNIT UNIT UNIT Cetirizine Cetirizine No Cetirizine [...] MG Ergocalcife Ergocalcife No 1{capsu Ergocalcif rol 03369 rol 82495 le} fortunato 74824 UNIT UNIT UNIT Cetirizine Cetirizine No Cetirizine [...] MG Ergocalcife Ergocalcife No 1{capsu Ergocalcif rol 46779 rol 42060 le} fortunato 56151 UNIT UNIT UNIT Cetirizine Cetirizine No Cetirizine [...] MG Ergocalcife Ergocalcife No 1{capsu Ergocalcif rol 36464 rol 42033 le} fortunato 14914 UNIT UNIT UNIT guaiFENesin guaiFENesin No 10{ml_a [...] MG Ergocalcife Ergocalcife No 1{capsu Ergocalcif rol 44409 rol 01642 le} fortunato 53477 UNIT UNIT UNIT Meloxicam Meloxicam No Meloxicam [...] Humira Yes Na Lopez not Common defined [facility] Aspirin Aspirin Yes Na Lopez not Common defined [facility] BusPIRone BusPIRone Yes Na Lopez 1 tablet Common HCl HCl [facility] Metoprolol Metoprolol Yes Na Lopez 1 tablet Common T[facility] BID Lagevrio 200 MG 200 [...] MG Ergocalcife Ergocalcife No 1{capsu Ergocalcif rol 81377 rol 85613 le} fortunato 85406 UNIT UNIT UNIT Gabapentin Gabapentin No 1{capsu [...] MCG/ACT Ergocalcife Ergocalcife No 1{capsu Ergocalcif rol 21688 rol 15681 le} fortunato 72966 UNIT UNIT UNIT Gabapentin Gabapentin No 1{capsu [...] MG Ergocalcife Ergocalcife No 1{capsu Ergocalcif rol 48663 rol 36254 le} fortunato 60163 UNIT UNIT UNIT Montelukast Montelukast No 1{table [...] MG t} Ergocalcife Ergocalcife No 1{capsu rol 59603 rol 53504 le} UNIT UNIT Montelukast Montelukast No 1{table [...] MG Ergocalcife Ergocalcife No 1{capsu Ergocalcif rol 04851 rol 20481 le} fortunato 41761 UNIT UNIT UNIT Montelukast Montelukast No 1{table [...] MG Ergocalcife Ergocalcife No 1{capsu Ergocalcif rol 82837 rol 07376 le} fortunato 79433 UNIT UNIT UNIT Omeprazole Omeprazole No 1{capsu [...] MG Ergocalcife Ergocalcife No 1{capsu Ergocalcif rol 61457 rol 59815 le} fortunato 30171 UNIT UNIT UNIT Vital Signs Vital Name Observation Time Observation Value Comments Source height 2022-08-31 08:20:00 63 [in_i] Common [facility] weight 2022-08-31 08:20:00 278 [lb_av] [facility] temperature 2022-08-31 08:20:00 98.5 [degF] [facility] bmi 2022-08-31 08:20:00 49.24 kg/m2 [facility] height 2022-08-10 10:20:00 63 [in_i] [facility] weight 2022-08-10 10:20:00 283 [lb_av] [facility] temperature 2022-08-10 10:20:00 98.5 [degF] [facility] bmi 2022-08-10 10:20:00 50.13 kg/m2 [facility] height 2022-06-22 10:20:00 63 [in_i] [facility] weight 2022-06-22 10:20:00 276 [lb_av] [facility] bmi 2022-06-22 10:20:00 48.89 kg/m2 [facility] height 2022-04-26 17:00:00 63 [in_i] [facility] weight 2022-04-26 17:00:00 279 [lb_av] [facility] temperature 2022-04-26 17:00:00 97.9 [degF] [facility] bmi 2022-04-26 17:00:00 49.42 kg/m2 [facility] height 2022-01-05 14:00:00 63 [in_i] [facility] weight 2022-01-05 14:00:00 297 [lb_av] [facility] bmi 2022-01-05 14:00:00 52.61 kg/m2 [facility] blood pressure 2022-01-05 14:00:00 148 mm[Hg] [facility] blood pressure 2022-01-05 14:00:00 102 mm[Hg] Common [facility] - diastolic [facility] height 2021-12-28 16:00:00 63 [in_i] [facility] weight 2021-12-28 16:00:00 300.4 [lb_av] [facility] temperature 2021-12-28 16:00:00 97.3 [degF] [facility] bmi 2021-12-28 16:00:00 53.21 kg/m2 [facility] oximetry 2021-12-28 16:00:00 100 % [facility] respiratory rate 2021-12-28 16:00:00 18 /min Comm on [facility] blood pressure 2021-12-28 16:00:00 137 mm[Hg] Common [facility] - systolic [facility] blood pressure 2021-12-28 16:00:00 83 mm[Hg] Common [facility] - diastolic [facility] height 2021-09-28 09:40:00 63 [in_i] [facility] weight 2021-09-28 09:40:00 283 [lb_av] [facility] temperature 2021-09-28 09:40:00 97.9 [degF] [facility] bmi 2021-09-28 09:40:00 50.13 kg/m2 [facility] height 2021-08-02 10:00:00 63 [in_i] [facility] weight 2021-08-02 10:00:00 282.6 [lb_av] [facility] temperature 2021-08-02 10:00:00 97.0 [degF] [facility] bmi 2021-08-02 10:00:00 50.05 kg/m2 [facility] oximetry 2021-08-02 10:00:00 97 % Common S pirit - [facility] respiratory rate 2021-08-02 10:00:00 16 /min Comm on Spirit - [facility] blood pressure 2021-08-02 10:00:00 140 mm[Hg] Common [facility] - systolic [facility] blood pressure 2021-08-02 10:00:00 62 mm[Hg] Common [facility] - diastolic [facility] Systolic blood 2021-07-04 00:50:00 180 mm[Hg] [facility]iver [facility] Diastolic blood 2021-07-04 00:50:00 110 mm[Hg] Unive rsity of [facility] Heart rate 2021-07-04 00:50:00 79 /min [facility] Body temperature 2021-07-04 00:50:00 36.67 Gem [facility] Respiratory rate 2021-07-04 00:50:00 18 /min [facility] Body weight 2021-07-04 00:50:00 121.564 kg [facility] Oxygen saturation in 2021-07-04 00:50:00 99 /min [facility] Arterial blood by [facility] Pulse oximetry Branch BP Systolic 2022-01-21 14:32:00 BP Diastolic 2022-01-21 14:32:00 Weight Measured 2022-01-21 14:32:00 276.00 pounds Height Measured 2022-01-21 14:32:00 63.00 inches Body Temperature 2022-01-21 14:32:00 Heart Rate 2022-01-21 14:32:00 Respiratory Rate 2022-01-21 14:32:00 Procedures Procedure Date / Time Performed Performing Clinician Marta e XR CHEST 1 VW 2021-07-04 01:14:37 Raissa Tran [facility] NOTICE OF PRIVACY 2021-07-04 00:45:31 [facility] 2021-07-04 00:45:10 [facility], [facility] Name [facility] TREATMENT Plan of Care Planned Activity Planned Date Details Comments Source Goal Plan of Care Note [code = 14758-2] Goal Plan of Care Note [code = 11820-0] Goal Plan of Care Note [code = 11363-0] Goal Plan of Care Note [code = 25228-7] Goal Plan of Care Note [code = 51769-0] Goal Plan of Care Note [code = 94311-7] Goal Plan of Care Note [code = 78543-6] Goal Plan of Care Note [code = 53420-3] Goal Plan of Care Note [code = 47001-5] Goal Plan of Care Note [code = 73392-4] Goal Plan of Care Note [code = 91557-3] Goal Plan of Care Note [code = 93795-2] Goal Plan of Care Note [code = 02872-3] Goal Plan of Care Note [code = 57107-8] Goal Plan of Care Note [code = 78939-1] Goal Plan of Care Note [code = 65197-1] Encounters Start End Encounter Admission Attending Care Care Encounter Source Date/Time Date/Time Type Type Clinicians Facility Department ID 2022-12-29 Outpatient Chung, STLMLC STLMLC [id number] Common 15:24:00 Avnee [id number] [facility] 2022-12-21 Outpatient Layla, STLMLC STLMLC [id number] Common 09:47:00 Karol 06225 [facility] 2022-06-01 Outpatient Lopez, Na STLMLC STLMLC [id number] 2 Common 09:18:00 [facility] 2022-04-13 Outpatient Lopez, Na STLMLC STLMLC [id number] 2 Common 15:29:00 [facility] 2022-04-07 Outpatient Lopez, Na STLMLC STLMLC [id number] 2 Common 16:07:00 [facility] 2022-01-04 Outpatient Lopez, Na STLMLC STLMLC [id number] 2 Common 09:31:01 [facility] 2021-10-20 Outpatient Lopez, Na STLMLC STLMLC [id number] 2 Common 14:09:55 15729 [facility] 2021-10-20 Outpatient Lopez, Na STLMLC STLMLC [id number] 2 Common 13:47:22 [id number] [facility] 2021-10-20 Outpatient Lopez, Na STLMLC STLMLC [id number] 2 Common 12:29:04 [id number] [facility] 2021-10-20 Outpatient Lopez, Na STLMLC STLMLC [id number] 2 Common 12:03:44 [id number] [facility] 2021-10-20 Outpatient Lopez, Na STLMLC STLMLC [id number] 2 Common 12:03:05 23587 [facility] 2021-10-20 Outpatient Lopez, Na STLMLC STLMLC [id number] 2 Common 11:43:49 [id number] [facility] 2021-10-20 Outpatient Lopez, Na STLMLC STLMLC [id number] 2 Common 11:35:56 [id number] [facility] 2021-10-20 Outpatient Lopez, Na STLMLC STLMLC [id number] 2 Common 11:18:09 [id number] [facility] 2021-10-20 Outpatient Lopez, Na STLMLC STLMLC [id number] 2 Common 11:04:54 [id number] [facility] 2021-10-20 Outpatient Lopez, Na STLMLC STLMLC [id number] 2 Common 11:04:25 [id number] [facility] 2022-08-31 2022-08-31 OFFICE STLMLC STLMLC [id number] Co mmon 00:00:00 00:00:00 VISIT EST Spir it PT LEVEL 3 [facility] 2022-08-30 2022-08-30 (TEL) STLMLC STLMLC [id number] Co mmon 00:00:00 00:00:00 [facility] 2022-08-29 2022-08-29 Outpatient SFA SFA [id number] Stef 15:26:21 15:26:21 1205 F Mohinder 2022-08-29 2022-08-29 Outpatient [id number] 00:00:00 00:00:00 Visit [id number] 2022-08-10 2022-08-10 (TEL) STLMLC STLMLC [id number] Co mmon 00:00:00 00:00:00 [facility] 2022-08-10 2022-08-10 (TEL) STLMLC STLMLC [id number] Co mmon 00:00:00 00:00:00 [facility] 2022-08-10 2022-08-10 (TEL) STLMLC STLMLC [id number] Co mmon 00:00:00 00:00:00 [facility] 2022-08-10 2022-08-10 OFFICE STLMLC STLMLC [id number] Co mmon 00:00:00 00:00:00 VISIT EST Spir it PT LEVEL 3 [facility] 2022-07-20 2022-07-20 (TEL) STLMLC STLMLC [id number] Co mmon 00:00:00 00:00:00 [facility] 2022-06-29 2022-06-29 (TEL) STLMLC STLMLC [id number] Co mmon 00:00:00 00:00:00 [facility] 2022-06-22 2022-06-22 OFFICE STLMLC STLMLC [id number] Co mmon 00:00:00 00:00:00 VISIT EST Spir it PT LEVEL 3 [facility] 2022-06-20 2022-06-20 (TEL) STLMLC STLMLC [id number] Co mmon 00:00:00 00:00:00 [facility] 2022-06-03 2022-06-03 OFFICE STLMLC STLMLC [id number] Co mmon 00:00:00 00:00:00 VISIT EST Spir it PT LEVEL 3 [facility] 2022-05-16 2022-05-16 (TEL) STLMLC STLMLC [id number] Co mmon 00:00:00 00:00:00 [facility] 2022-05-162022-05-16 OFFICE STLMLC STLMLC [id number] Co mmon 00:00:00 00:00:00 VISIT EST Spir it PT LEVEL 3 [facility] 2022-04-27 2022-04-27 (TEL) STLMLC STLMLC [id number] Co mmon 00:00:00 00:00:00 [facility] 2022-04-26 2022-04-26 (TEL) STLMLC STLMLC [id number] Co mmon 00:00:00 00:00:00 [facility] 2022-04-26 2022-04-26 OFFICE STLMLC STLMLC [id number] Co mmon 00:00:00 00:00:00 VISIT EST Spir it PT LEVEL 3 [facility] 2022-04-20 2022-04-20 Outpatient [id number] 00:00:00 00:00:00 Visit [id number] 2022-03-30 2022-03-30 OFFICE STLMLC STLMLC [id number] Co mmon 00:00:00 00:00:00 VISIT [facility] PT - [facility] LEVEL 4 [facility] 2022-02-14 2022-02-14 (TEL) STLMLC STLMLC [id number] Co mmon 00:00:00 00:00:00 [facility] 2022-01-27 2022-01-27 OFFICE STLMLC STLMLC [id number] Co mmon 00:00:00 00:00:00 VISIT EST Spir it PT LEVEL 3 - [facility] 2022-01-26 2022-01-26 (TEL) STLMLC STLMLC [id number] Co mmon 00:00:00 00:00:00 [facility] 2022-01-18 2022-01-18 (TEL) STLMLC STLMLC [id number] Co mmon 00:00:00 00:00:00 [facility] 2022-01-05 2022-01-05 OFFICE STLMLC STLMLC [id number] Co mmon 00:00:00 00:00:00 VISIT NEW Spir it PT LEVEL 3 - [facility] 2021-12-28 2021-12-28 OFFICE STLMLC STLMLC [id number] Co mmon 00:00:00 00:00:00 VISIT Spirit ESTAB PT - CHI LEVEL 4 [facility] 2021-11-15 2021-11-15 (TEL) STLMLC STLMLC [id number] Co mmon 00:00:00 00:00:00 [facility] - [facility] 2021-11-11 2021-11-11 (TEL) STLMLC STLMLC [id number] Co mmon 00:00:00 00:00:00 [facility] - [facility] 2021-09-28 2021-09-28 OFFICE STLMLC STLMLC [id number] Co mmon 00:00:00 00:00:00 VISIT Spirit ESTAB PT - CHI LEVEL 4 [facility] 2021-08-27 2021-08-27 (TEL) STLMLC STLMLC [id number] Co mmon 00:00:00 00:00:00 [facility] - [facility] 2021-08-04 2021-08-04 (TEL) STLMLC STLMLC [id number] Co mmon 00:00:00 00:00:00 [facility] 2021-08-02 2021-08-02 OFFICE STLMLC STLMLC [id number] Co mmon 00:00:00 00:00:00 VISIT Spirit ESTAB PT - CHI LEVEL 4 [facility] 2021-07-22 2021-07-22 Outpatient Vanesa Cheung HCAPM RADI LA0 [id number] [facility] 08:00:00 08:00:00 63 [facility] 2021-07-03 2021-07-03 Emergency Marc [facility] [id number] Univers 19:47:00 21:16:00 Raissa Alvarez [id number] ity [facility] [id number] [facility] [id number] [facility] 084 Branch 2021-07-03 2021-07-03 Emergency X [facility] ERT [id number] Univers 19:47:00 19:47:00 ity [facility] 2021-06-07 2021-06-07 Outpatient STLMLC STLMLC [id number] Common 00:00:00 00:00:00 [facility] 2021-05-06 2021-05-06 Outpatient STLMLC STLMLC [id number] Common 00:00:00 00:00:00 [facility] 2021-04-28 2021-04-28 Outpatient STLMLC STLMLC [id number] Common 00:00:00 00:00:00 [facility] 2021-04-27 2021-04-27 Outpatient STLMLC STLMLC [id number] Common 00:00:00 00:00:00 [facility] 2021-03-15 2021-03-15 Outpatient STLMLC STLMLC [id number] Common 00:00:00 00:00:00 [facility] 2021-01-04 2021-01-04 Outpatient STLMLC STLMLC [id number] Common 00:00:00 00:00:00 [facility] 2020-11-03 2020-11-03 Outpatient STLMLC STLMLC [id number] Common 00:00:00 00:00:00 [facility] 2020-08-03 2020-08-03 Outpatient STLMLC STLMLC [id number] Common 00:00:00 00:00:00 [facility] 2020-05-04 2020-05-04 Out[facility] [id number] Common 10:10:00 10:10:[address] [facility] 2020-05-01 2020-05-01 Outpatient [facility] [id number] Common 09:40:00 09:40:[address] [employer] [facility] 2020-02-19 2020-02-19 [id number] Common 16:06:00 16:06:[address] [facility] [address] [facility] 2019-12-12 2019-12-12 [facility] [id number] Common 15:41:00 15:41:[address] [facility] 2019-09-16 2019-09-16 [facility] [id number] Common 14:40:00 14:40:[address] [facility] 2019-08-15 2019-08-15 [id number] Common 09:27:00 09:27:[address] [facility] 2019-08-12 2019-08-12 [id number] Common 09:00:00 09:00:[address] [facility] 2019-07-31 2019-07-31 [facility] [id number] Common 11:46:00 11:46:[address] [facility] 2019-07-29 2019-07-29 [id number] Common 09:40:00 09:40:[address] [facility] 2019-06-02 2019-06-02 [id number] Common 09:38:00 09:38:00 t [facility] 2019-05-31 2019-05-31 [facility] [id number] Common 11:30:00 11:30:00 t [facility] 2018-01-19 2018-01-19 [facility] [id number] Common 08:11:00 08:11:[address] [facility] 2018-01-18 2018-01-18 [facility] [id number] Common 10:15:00 10:15:[address] [facility] 2017-12-26 2017-12-26 [facility] [id number] Common 09:30:00 09:30:00 t [employer] [facility] [employer] [facility] Results Test Description Test Time Test Comments Results Result Comments Source SARS-CoV-2 (COVID-19), RT-PCR/TMA 2021-12-10 07:26:55 Test Item Value Reference Range Interpretation Comme nts SARS-CoV-2 INTERPRETATION NEGATIVE SEE NOTE S ARS-CoV-2 RNA NOT (test code = 72647) DETECTED Negative results do not preclude SARS-C [...] ORDER CODE 3509. SOURCE (test code = 72966) NASOPHARYNGEAL Note: Methodology is Ro Charito Real-Time [...] are provided by method given in report:https:// www.[employer]cl inicians/client -communications/ Alternatively, see downloadable PDF fact sheet at:https://www. cpllabs.com/COVID- 19-RT-PCR UNLES S OTHERWISE INDICATED, ALL TESTING PERFORMED ATCLINICAL PATH [facility], [facility]. [address] [facility], [place] [address] 4 OPERATOR TECHNICIAN: PRUDENCE SOLIS M.D. CLIA NUMBER [id number] CAP ACCREDITATION N O. [id number] SARS-CoV-2 (COVID-19) by RT-PCR (HIGH RISK)2021-12-10 00:00:00 Test Item Value Reference Range Interpretation Comments SARS-CoV-2 INTERPRETATION NEGATIVE (test code = 22611) SOURCE (test code = 80044) NASOPHARYNGEAL SARS-CoV-2 (COVID-19) by RT-PCR (HIGH RISK)2021-12-10 00:00:00 Test Item Value Reference Range Interpretation Comments SARS-CoV-2 INTERPRETATION NEGATIVE (test code = 44313) SOURCE (test code = 09269) NASOPHARYNGEAL SARS-CoV-2 (COVID-19) by RT-PCR (HIGH RISK)2021-12-10 00:00:00 Test Item Value Reference Range Interpretation Comments SARS-CoV-2 INTERPRETATION NEGATIVE (test code = 81654) SOURCE (test code = 99991) NASOPHARYNGEAL Lipid Panel w/ Chol/HDL [id number] 00:00:00 Test Item Value Reference Range Interpretation Comments Cholesterol, Total (test code = 2093-3) 186 100-199 Triglycerides (test code = 2571-8) 86 0-149 HDL Cholesterol (test code = 2085-9) 59 >39 T. Chol/HDL Ratio (test code = 9830-1) 3.2 0.0-4.4 JOSÉ w/Reflex if [id number] 00:00:00 Test Item Value Reference Range Interpretation Comments JOSÉ Direct (test code = 8061-4) Negative Negative Comp. Metabolic Panel (14) (CMP)2021-08-02 00:00:00 Test Item Value Reference Range Interpretation Comments Glucose (test code = 2345-7) 75 65-99 BUN (test code = 3094-0) 10 6-24 Creatinine (test code = 2160-0) 0.74 0.57-1.00 eGFR If NonAfricn Am (test code = 97 >59 33350-7) eGFR If Africn Am (test code = 98384-4) 112 >59 BUN/Creatinine Ratio (test code = 14 9-23 3097-3) Sodium (test code = 2951-2) 141 134-144 Potassium (test code = 2823-3) 3.7 3.5-5.2 Chloride (test code = 2075-0) 102 96-106 Carbon Dioxide, Total (test code = -2027-9) Calcium (test code = 88034-4) 9.6 8.7-10.2 Protein, Total (test code = 2885-2) 8.8 6.0-8.5 Albumin (test code = 1751-7) 4.6 3.8-4.8 Globulin, Total (test code = 36763-7) 4.2 1.5-4.5 A/G Ratio (test code = 1759-0) 1.1 1.2-2.2 Bilirubin, Total (test code = 1974-2) 0.6 0.0-1.2 Alkaline Phosphatase (test code = 76 44-121 6768-6) AST (SGOT) (test code = 1920-8) 20 0-40 ALT (SGPT) (test code = 1742-6) 19 0-32 CBC With Differential/[id number] 00:00:00 Test Item Value Reference Range Interpretation [...] Granulocytes (test code = 0 Not Estab. 14075-6) Immature Grans (Abs) (test code = 0.0 0.0-0.1 27687-5) NRBC (test code = 48394-7) Hematology Comments: (test code = 22038-0) Rheumatoid Arthritis [id number] 00:00:00 Test Item Value Reference Range Interpretation Comments Rheumatoid Factor (RF) (test code = <10.0 0.0-13.9 68883-8) C-Reactive Protein, Quant (CRP)2021-08-02 00:00:00 Test Item Value Reference Range Interpretation Comments C-Reactive Protein, Quant (test code = 13 0-10 1987-5) Vitamin D, 31-[id number] 00:00:00 Test Item Value Reference Range Interpretation Comments Vitamin D, 25-Hydroxy (test code = 24.0 30.0-100.0 1988-) - CT ABD PELVIS W/[id number] 09:50:00 [facility] 1975 Sex: F Name: SHE GUARDADO [place] : 1975 Age/S: 46 / F [id number] [address] Unit #: [id number] Loc: [place] [address] Phys: Vanesa Nunez MD Acct: [id number] Dis Date: Status: REG CLI PHONE #: [phone] Exam Date: 07/22/2021917 FAX #: Reason: CROHNS DISEASE, UNSPECIFIED, WITHOUT COMPLICATI EXAMS: CPT: [id number] CT ABD PELVIS W/CONT 80743 HISTORY: CROHN'S DISEASE, UNSPECIFIED, WITHOUT COMPLICATIONS TECHNIQUE: [...] and dilated intrahepatic ducts. The gallbladder is absent.The spleen is normal in size and contour. The pancreas is morphologically normal. No mass, pancreatic duct dilatation or peripancreatic edema is visible. The adrenal glands are normal in size and contour. Neither cystic nor solid renal masses are visible. No hydronephrosis is seen. No renal calculi orperinephric stranding. The urinary bladder is unremarkable. Stomach and duodenum appear unremarkable. The visualized small bowel is unremarkable without evidence of bowel thickening or obstruction. There is evidence of right colonic surgery with a suture line in the right upper abdomen. There is mild t hickening of the transverse colon and splenic flexure. [...] 1 Signed Report (CONTINUED) Name: SHE GUARDADO [place] : 1975 Age/S: 46 / F [facility] Unit #: [id number] Loc: [place] [address] Phys: Vanesa Nunez MD Acct: [id number] Dis Date: Status: REG CLI PHONE #: [phone] Exam Date: 07/22/2021917 FAX #: Reason: CROHNS DISEASE, UNSPECIFIED, WITHOUT COMPLICATIEXAMS: CPT: [id number] CT ABD PELVIS W/CONT 33003 (Continued) IMPRESSION: 1. There is mild diffuse [...] (0950) t.SDR.NB16 Orig Print D/T: S: 07/22/2021 (7445) PAGE 2 Signed [id number] 08:27:00 Test Item Value Reference Range Interpretation Comments ISTAT-BUN (test code = BUNP) 8 mg/dL 8-26 N BEDSIDE [id number] 08:27:00 Test Item Value Reference Range Interpretation Comments BEDSIDE CREATININE (test code = 0.6 mg/dL 0.6-1.3 N CREATBED) SARS-COV-2 (COVID19), NAAT [ADDED]2020-10-02 00:00:00 Test Item Value Reference Range Interpretation Comments SARS-CoV-2 INTERPRETATION (test NEGATIVE code = 78714) SOURCE (test code = 77232) NOT SPECIFIED SARS-COV-2 (COVID19), NAAT [ADDED]2020-10-02 00:00:00 Test Item Value Reference Range Interpretation Comments SARS-CoV-2 INTERPRETATION (test NEGATIVE code = 23302) SOURCE (test code = 63232) NOT SPECIFIED SARS-COV-2 (COVID19), NAAT [ADDED]2020-10-02 00:00:00 Test Item Value Reference Range Interpretation Comments SARS-CoV-2 INTERPRETATION (test NEGATIVE code = 94870) SOURCE (test code = 56449) NOT SPECIFIED SARS-CoV-2 (COVID-19) by RT-PCR (HIGH RISK)2020-04-17 00:00:00 Test Item Value Reference Range Interpretation Comments SARS-CoV-2 INTERPRETATION (test NEGATIVE code = 81617) SOURCE (test code = 02488) NOT SPECIFIED SARS-CoV-2 (COVID-19) by RT-PCR (HIGH RISK)2020-04-17 00:00:00 Test Item Value Reference Range Interpretation Comments SARS-CoV-2 INTERPRETATION (test NEGATIVE code = 57751) SOURCE (test code = 46310) NOT SPECIFIED SARS-CoV-2 (COVID-19) by RT-PCR (HIGH RISK)2020-04-17 00:00:00 Test Item Value Reference Range Interpretation Comments SARS-CoV-2 INTERPRETATION (test NEGATIVE code = 13058) SOURCE (test code = 02809) NOT SPECIFIED POC, COVID 19 Antigen + Flu by SofiaPOC, COVID 19 Antigen + Flu by Jennifer
[2023-01-17 05:19] LABS: Absolute Lymphocytes (CBC) 3.5 K/uL (0.7-4.9); Hematocrit 36.5 % (36.0-45.0); Lymphocytes % 39.1 % (15.3-44.8); MCV 78.2 fL (80-100); MPV 7.7 fL (7.6-11.3); RBC Red Blood Cell Count 4.67 M/uL (3.86-4.86)
[2023-01-17] MEDS ORDERED: METOPROLOL TAR 25 MG TAB ONE (06:08)
[2023-01-17 08:55] LABS: Protime INR 1.03
[2023-01-17 09:12] LABS: Potassium 3.9 mEq/L (3.5-5.1); Thyroid Stimulating Hormone 1.81 uIU/mL (0.358-3.740)
--- NOTE | 2023-01-17 10:11 | EDPHYS ---
Physician Documentation [facility] Name: Dori Guardado Age: 47 yrs Sex: Female : 1975 Arrival Date: 01/17/2023 Time: 04:13 Bed 6 Private MD: ED Physician Camlio Marie HPI: 01/17 05:06 This 47 yrs old Black Female presents to ER via Wheelchair with complaints of Irregular kdr Pulse. 05:06 Patient states she was awakened from sleep this evening with a racing heart. She has kdr not had this specific problem before. She was seen here within the last few weeks for A-fib with RVR and reportedly was cardioverted electrically at that time. She states that she subsequently had a heart cath which was deemed to be clear. She had a follow-up appointment scheduled with cardiology but due to some insurance issues did not or has not made that as yet.. Onset: The symptoms/episode began/occurred suddenly, just prior to arrival. Severity of symptoms: At their worst the symptoms were moderate in the emergency department the symptoms have improved moderately. The patient has not experienced similar symptoms in the past. As noted above. DEHORNER: 04:40 LMP N/A - Hysterectomy lg3 Historical: - Allergies: 04:40 No Known Allergies; lg3 - Home Meds: 04:40 amlodipine oral [Active]; aspirin 81 mg Oral chew [Active]; Dicyclomine Oral [Active]; lg3 Famotidine Oral [Active]; Humira subcutaneous [Active]; mesalamine Oral [Active]; Omeprazole Oral [Active]; Eliquis oral [Active]; - PMHx: 04:40 Atrial Fib; bowel obstruction; Crohn's; Hypertension; lg3 - PSHx: 04:40 Appendectomy; section; Cholecystectomy; partial hysterectomy; lg3 - Immunization history:: Adult Immunizations up to date, Client reports having NOT received the Covid vaccine. Flu vaccine is not up to date. - Social history:: Smoking status: Patient denies any tobacco usage or history of. Patient/guardian denies using alcohol, street drugs. ROS: 05:06 Constitutional: Negative for fever, chills, and weight loss, Eyes: Negative for injury, kdr pain, redness, and discharge, ENT: Negative for injury, pain, and discharge, Neck: Negative for injury, pain, and swelling, Respiratory: Negative for shortness of breath, cough, wheezing, and pleuritic chest pain, Back: Negative for injury and pain, : Negative for injury, bleeding, discharge, and swelling, MS/Extremity: Negative for injury and deformity, Skin: Negative for injury, rash, and discoloration, Neuro: Negative for headache, weakness, numbness, tingling, and seizure activity. Psych: Negative for depression, anxiety, suicide ideation, homicidal ideation, and hallucinations, Allergy/Immunology: Negative for hives, rash, and allergies, Endocrine: Negative for neck swelling, polydipsia, polyuria, polyphagia, and marked weight changes, Hematologic/Lymphatic: Negative for swollen nodes, abnormal bleeding, and unusual bruising. 05:06 Cardiovascular: Positive for palpitations, Negative for chest pain, edema, orthopnea. 05:06 Abdomen/GI: Positive for nausea. Exam: 04:40 ECG was reviewed by the Attending Physician. kdr 05:06 Constitutional: This is a well developed, well nourished obese patient who is awake, kdr alert, and in no acute distress. Head/Face: Normocephalic, atraumatic. Eyes: Pupils equal round and reactive to light, extra-ocular motions intact. Lids and lashes normal. Conjunctiva and sclera are non-icteric and not injected. Cornea within normal limits. Periorbital areas with no swelling, redness, or edema. Neck: Trachea midline, no thyromegaly or masses palpated, and no cervical lymphadenopathy. Supple, full range of motion without nuchal rigidity, or vertebral point tenderness. No Meningismus. Chest/axilla: Normal chest wall appearance and motion. Nontender with no deformity. No lesions are appreciated. Cardiovascular: Regular rate and rhythm with a normal S1 and S2. No gallops, murmurs, or rubs. Normal PMI, no JVD. No pulse deficits. Respiratory: Lungs have equal breath sounds bilaterally, clear to auscultation and percussion. No rales, rhonchi or wheezes noted. No increased work of breathing, no retractions or nasal flaring. Abdomen/GI: Soft, non-tender, with normal bowel sounds. No distension or tympany. No guarding or rebound. No evidence of tenderness throughout. Back: No spinal tenderness. No costovertebral tenderness. Full range of motion. Skin: Warm, dry with normal turgor. Normal color with no rashes, no lesions, and no evidence of cellulitis. MS/ Extremity: Pulses equal, no cyanosis. Neurovascular intact. Full, normal range of motion. Neuro: Awake and alert, GCS 15, oriented to person, place, time, and situation. Cranial nerves II-XII grossly intact. Motor strength 5/5 in all extremities. Sensory grossly intact. Cerebellar exam normal. Normal gait. Psych: Awake, alert, with orientation to person, place and time. Behavior, mood, and affect are within normal limits. Vital Signs: 04:38 BP 148 / 105; Pulse 76; Resp 17 S; Temp 98(O); Pulse Ox 100% on R/A; Weight 127.01 kg lg3 (R); Height 5 ft. 3 in. (R); Pain 2/10; 06:30 BP 122 / 87; Pulse 65; Resp 14; Pulse Ox 100% ; vc1 07:21 BP 114 / 81; Pulse 66; Resp 18; Pulse Ox 97% on R/A; ld1 08:25 BP 113 / 70; Pulse 63; Resp 18; Pulse Ox 100% on R/A; ld1 04:38 Body Mass Index 49.60 (127.01 kg, 160.02 cm) lg3 04:38 Pain Scale: Adult lg3 MDM: 05:06 Data reviewed: vital signs, nurses notes, lab test result(s), radiologic studies. kdr 07:38 Patient medically screened. ms3 10:11 I considered the following discharge prescriptions or medication management in the [facility] emergency department Medications were administered in the Emergency Department. See MAR. Independent interpretation of the following test(s) in the Emergency Department EKG: See my EKG interpretation above air sampling and monitoring: rate is 61 beats/min, Rhythm is normal sinus rhythm, regular, with no ectopy, Interpretation: normal rate, normal rhythm. Counseling: I had a detailed discussion with the patient and/or guardian regarding: the historical points, exam findings, and any diagnostic results supporting the discharge/admit diagnosis, lab results, radiology results, the need for outpatient follow up, to return to the emergency department if symptoms worsen or persist or if there are any questions or concerns that arise at home. ED course: Discussed labs and imaging with patient. 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 Patient understands and agrees with plan. All questions were answered. Return precautions discussed include worsening symptoms, shortness of breath, sweating, chest pain, or any other concerns. On reevaluation patient improved, alert and orient x4, no apparent distress, nontoxic-appearing, ambulatory in emergency department, speaking full sentences. 01/17 04:40 Order name: Basic Metabolic Panel; Complete Time: 10: [facility] 01/17 04:40 Order name: CBC with Diff; Complete Time: 05: [facility] 01/17 04:40 Order name: NT PRO-BNP; Complete Time: 10: [facility] 01/17 04:40 Order name: Troponin HS; Complete Time: 10: [facility] 01/17 04:41 Order name: TSH; Complete Time: : [facility] 01/17 04:47 Order name: Ptt, Activated; Complete Time: : 3 01/17 04:47 Order name: PT-INR; Complete Time: 10: 3 01/17 04:40 Order name: XRAY Chest (1 view) [facility] 01/17 05:10 Order name: US Extremity Venous Unilateral Ltd [facility] 01/17 04:40 Order name: EKG; Complete Time: 04:40 [facility] 01/17 04:40 Order name: Cardiac monitoring; Complete Time: : [facility] 01/17 04:40 Order name: EKG - Nurse/Tech; Complete Time: 04: [facility] 01/17 04:40 Order name: IV Saline Lock; Complete Time: 05:12 [facility] 01/17 04:40 Order name: Labs collected and sent; Complete Time: 05:12 [facility] 01/17 04:40 Order name: O2 Per Protocol; Complete Time: : [facility] 01/17 04:40 Order name: O2 Sat Monitoring; Complete Time: : kdr EC:40 Rate is 76 beats/min. Rhythm is irregular, Sinus arrythmia with PACs. QRS [place] is kdr Normal. FL interval is normal. Clinical impression: Sinus arrythmia. Administered Medications: 06:05 Drug: Metoprolol PO 25 mg Route: PO; lg3 Disposition Summary: 01/17/23 10:10 Discharge Ordered Location: Home ms3 Condition: Stable ms3 Diagnosis - Palpitations ms3 - Tachycardia, unspecified ms3 - Anemia, unspecified ms3 Followup: ms3 - With: Private Physician - When: Today - Reason: Recheck today's complaints Discharge Instructions: - Discharge Summary Sheet ms3 - Palpitations ms3 Forms: - Medication Reconciliation Form ms3 - Thank You Letter ms3 - Antibiotic Education ms3 - Prescription Opioid Use ms3 Signatures: Dispatcher [employer] Yogesh Patel MD MD kdr Gibson, Lacie, RN RN lg3 Camilo Marie, DO ms3
--- NOTE | 2023-01-17 10:11 | ER ---
Nurse's Notes [facility] Name: Dori Guardado Age: 47 yrs Sex: Female : 1975 Arrival Date: 01/17/2023 Time: 04:13 Bed 6 Private MD: Diagnosis: Palpitations;Tachycardia, unspecified;Anemia, unspecified Presentation: 01/17 04:38 Chief complaint: Patient states: i was here 2 weeks ago with an irregular heart beat lg3 and they had to shock me. i woke up at 0400 with the same feeling again and my hearts beating really fast. Coronavirus screen: Client denies travel out of the [place] in the last 14 days. At this time, the client does not indicate any symptoms associated with coronavirus-19. Ebola Screen: No symptoms or risks identified at this time. Initial Sepsis Screen: Does the patient meet any 2 criteria? No. Patient's initial sepsis screen is negative. Does the patient have a suspected source of infection? No. Patient's initial sepsis screen is negative. Risk Assessment: Do you want to hurt yourself or someone else? Patient reports no desire to harm self or others. Onset of symptoms was January 17, 2023 at 04:00. 04:38 Method Of Arrival: Wheelchair lg3 04:38 Acuity: KASH 3 lg3 Triage Assessment: 04:40 General: Appears in no apparent distress. uncomfortable, Behavior is cooperative, lg3 anxious. Pain: Denies pain. EENT: No deficits noted. No signs and/or symptoms were reported regarding the EENT system. Neuro: No deficits noted. Carr Agitation-Sedation Scale (RASS): 0 - Alert and Calm Level of Consciousness is awake, alert, obeys commands, Oriented to person, place, time, situation. Cardiovascular: Reports chest pressure Capillary refill < 3 seconds Clubbing of nail beds is absent JVD is absent Patient's skin is warm and dry. Rhythm is sinus rhythm. Respiratory: No deficits noted. Airway is patent Trachea midline Respiratory effort is even, unlabored, Respiratory pattern is regular, symmetrical. GI: No deficits noted. No signs and/or symptoms were reported involving the gastrointestinal system. Abdomen is round non-distended, obese. : No deficits noted. No signs and/or symptoms were reported regarding the genitourinary system. Derm: No deficits noted. No signs and/or symptoms reported regarding the dermatologic system. Skin is intact, is healthy with good turgor, Skin is dry, Skin is normal, Skin temperature is warm. Musculoskeletal: No deficits noted. No signs and/or symptoms reported regarding the musculoskeletal system. Circulation, motion, and sensation intact. Range of motion: intact in all extremities. 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 Flu vaccine is not up to date. - Social history:: Smoking status: Patient denies any tobacco usage or history of. Patient/guardian denies using alcohol, street drugs. Screenin:44 [facility] ED Fall Risk Assessment (Adult) History of falling in the last 3 months, lg3 including since admission No falls in past 3 months (0 pts). Abuse screen: Denies threats or abuse. Denies injuries from another. Nutritional screening: No deficits noted. Tuberculosis screening: No symptoms or risk factors identified. Assessment: 04:44 General: see triage assessment . lg3 05:54 General: notified lab of needed recollect. lg3 06:00 Reassessment: No changes from previously documented assessment. Patient and/or family vc1 updated on plan of care and expected duration. Pain level reassessed. 06:44 Reassessment: No changes from previously documented assessment. Patient and/or family vc1 updated on plan of care and expected duration. Pain level reassessed. 08:01 Reassessment: Patient appears in no apparent distress at this time. No changes from iw previously documented assessment. Patient and/or family updated on plan of care and expected duration. Pain level reassessed. Vital Signs: 04:38 BP 148 / 105; Pulse 76; Resp 17 S; Temp 98(O); Pulse Ox 100% on R/A; Weight 127.01 kg lg3 (R); Height 5 ft. 3 in. (R); Pain 2/10; 06:30 BP 122 / 87; Pulse 65; Resp 14; Pulse Ox 100% ; vc1 07:21 BP 114 / 81; Pulse 66; Resp 18; Pulse Ox 97% on R/A; ld1 08:25 BP 113 / 70; Pulse 63; Resp 18; Pulse Ox 100% on R/A; ld1 04:38 Body Mass Index 49.60 (127.01 kg, 160.02 cm) lg3 04:38 Pain Scale: Adult lg3 ED Course: 04:15 Patient arrived in ED. ag3 04:34 Yogesh Singh MD is Attending Physician. kdr 04:38 Nay Mcdonald, RN is Primary Nurse. lg3 04:40 Triage completed. lg3 04:40 Arm band placed on right wrist. lg3 04:44 Patient has correct armband on for positive identification. Placed in gown. Bed in low lg3 position. Call light in reach. Side rails up X 1. Client placed on continuous cardiac and pulse oximetry monitoring. NIBP monitoring applied. monitor technician on. Door closed. Noise minimized. Warm blanket given. Family accompanied patient. 04:44 Patient maintains SpO2 saturation greater than 95% on room air. lg3 05:11 Inserted saline lock: 20 gauge in right forearm, using aseptic technique. Blood as6 collected. ultrasound guided. 05:12 XRAY Chest (1 view) In Process Unspecified. EDMS 05:43 US Extremity Venous Unilateral Ltd In Process Unspecified. EDMS 07:22 Attending Physician role handed off by Yogesh Singh MD ms3 07:22 Camilo Marie DO is Attending Physician. ms3 10:26 No provider procedures requiring assistance completed. IV discontinued, intact, iw bleeding controlled, No redness/swelling at site. Pressure dressing applied. Administered Medications: 06:05 Drug: Metoprolol PO 25 mg Route: PO; lg3 Medication: 08:02 VIS not applicable for this client. iw Outcome: 10:10 Discharge ordered by . ms3 10:26 Discharged to home ambulatory, with family. iw 10:26 Condition: good 10:26 Discharge instructions given to patient, family, Instructed on discharge instructions, follow up and referral plans. Demonstrated understanding of instructions, follow-up care. 10:26 Patient left the ED. iw Signatures: Dispatcher [employer] EDMS Yogesh Singh MD MD kdr Williams, Irene, RN RN iw Roger, Monica ag3 Nay Mcdonald RN RN lg3 Camilo Marie, DO NEVAREZ ms3 Georgia Marie RN RN [email or web address] Moy Rios RN RN as6 Cathy Thompson RN RN vc1
[2023-01-17 10:50] VITALS: TEMP 98
[2023-01-17 10:54] VITALS: BP 113/70; O2SAT 100
--- NOTE | 2023-01-17 19:33 | RAD REPORT ---
EXAM DESCRIPTION: RAD - Chest Single View - 01/17/2023 5:10 am CLINICAL HISTORY: PALPITATIONS COMPARISON: 11/18/2022. TECHNIQUE: XR CHEST 1 VIEW 01/17/2023 4:40 AM CDT FINDINGS: The heart is enlarged. Lungs are clear without consolidation, atelectasis, mass or edema. There is no pleural effusion. There is no pneumothorax. There are no acute osseous findings. IMPRESSION: Clear lungs. Electronically signed by: Joaquin Norris MD 01/17/2023 6:27 AM CDT Due to temporary technical issues with the PACS/Fluency reporting system, reports are being signed by the in house radiologists without review as a courtesy to insure prompt reporting. The interpreting radiologist is fully responsible for the content of the report
--- NOTE | 2023-01-17 19:34 | RAD REPORT ---
EXAM DESCRIPTION: US - Extremity Venous Uni Ltd - 01/17/2023 5:41 am CLINICAL HISTORY: 47 years Female Pain;Swelling Extremity Venous Uni Ltd COMPARISON: None TECHNIQUE: Spectral analysis and color/grayscale sonographic images of the right leg were obtained u tilizing a high-frequency linear array transducer supplemented with color Doppler, compression and au gmentation techniques. FINDINGS: Common femoral: normal Greater saphenous: normal Superficial femoral: normal Popliteal: normal Calf Veins: normal IMPRESSION: 1. No sonographic evidence for right lower extremity deep venous thrombosis. Electronically signed by: Yenni Lincoln MD 01/17/2023 6:01 AM CDT Due to temporary technical issues with the PACS/Fluency reporting system, reports are being signed by the in house radiologists without review as a courtesy to insure prompt reporting. The interpreting radiologist is fully responsible for the content of the report
--- NOTE | 2023-01-18 04:53 | EKG ---
Test Date: 2023-01-17 Test Time: 04:34:03 Denitrator: RV MEASUREMENT RESULTS: Intervals: Rate: 76 WY: 162 QRSD: 78 QT: 368 QTc: 414 [place]: P: 70 W[place]: 162 QRS: 23 T: 38 INTERPRETIVE STATEMENTS: Sinus rhythm with frequent premature ventricular complexes Otherwise normal ECG Compared to ECG 01/02/2023 09:11:05 Ventricular premature complex(es) now present Atrial abnormality no longer present Electronically Signed On 01-18-23 04:52:06 CDT by Matthew Lofton
== END 2023-01-17 10:26 | disposition home or self-care (01) ==
LOC: ER 04:13
DX: R00.0 Tachycardia, unspecified (principal); D64.9 Anemia, unspecified; I10 Essential (primary) hypertension; I48.91 Unspecified atrial fibrillation; Z79.01 Long term (current) use of anticoagulants; Z79.82 Long term (current) use of aspirin
CPT/HCPCS: 36415; 71045; 80048; 83880; 84443; 84484; 85025; 85610; 85730; 93005; 93971; 99285

== ENCOUNTER 2023-01-21 05:33 | Emergency (ER) | payer OTHER ==
--- OUTSIDE RECORDS SUMMARY | 2023-01-21 05:44 | XMS REPORT | Continuity of Care Document ---
:1975 Author Organization [facility] t Address [address] [place] [address] Care Team Providers Name Role Phone Noemy Lopez Primary Care Physician Taylor Chung Attending Clinician Unavailable Karol Rich Attending Clinician Unavailable Noemy Lopez Attending Clinician Unavailable aVnesa Nunez Attending Clinician Unavailable Raissa Tran DO Attending Clinician Noemy Lopez Admitting Clinician Unavailable Payers Payer Name Policy Type Policy Number Effective Date Expiration Date S Critical access hospital C1 [id number] 2020 [facility]:[address] [facility] C1 [id number] 2020 [facility] 00:00:[address] [facility] C1 [id number] 2020 [facility] 00:00:[facility] Problems Condition Condition Condition Status Onset Resolution Last Treating Co mments Source Name Details Category Date Date Treatment Clinician Date [id number] Microcytic Problem Co mmon anemia Spirit [facility] [id number] [place], [place] [address] joint, Spirit knee, - [facility] right [facility] [id number] Sinusitis, Problem Com mon maxillary, Spirit chronic [facility] [id number] Recurrent Problem Com mon falls [facility] [id number] Balance Problem Commo n problem [facility] Morbid Obesity, Problem Common obesity morbid, Spirit BMI 50 or - CHI higher [facility] [id number] Crohn's Problem Commo n disease in Spirit remission [facility] [id number] Gastroesop Problem Co mmon hageal [facility] reflux - [facility]I disease, [facility] s presence Medica l not Center specified Iron Iron Problem Common deficiency deficiency Sp jose anemia anemia, - CHI unspecifie [facility] iron [facility] deficiency Medica l anemia Center type [id number] Adult Problem Common general [facility] medical - [facility] exam [facility] [id number] Hematuria, Problem Com mon unspecifie Spirit d - CHI [facility] [id number] Multiple Problem Commo n joint pain [facility] [id number] Urinary Problem Common tract Spirit infection, - CHI site not [facility] [id number] BMI Problem Common 50.0-59.9, [facility] adult [facility] [id number] Vitamin D Problem Comm on deficiency [facility] [id number] Grieving Problem Comm on [facility] [id number] Seasonal Problem Comm on allergic Spirit rhinitis, - CHI unspecifie [facility] [id number] Abdominal Problem Com mon bloating Spirit [facility] [id number] Crohn's Problem Common disease [facility] d Center gastrointe stinal tract location [id number] Seasonal Problem Commo n allergic Spirit rhinitis - CHI due to [facility] Mixed Depression Problem Commo n anxiety with Spirit and anxiety - CHI depressive [facility] High blood High blood Problem C ommon pressure pressure [facility] [id number] Other Problem Common chronic [facility] pain [facility] [id number] Esophageal Problem Com mon stricture [facility] No known No known Disease Unive rs active active ity of problems problems [facility] Allergies, Adverse Reactions, Alerts Allergy Allergy Status Severity Reaction(s) Onset Inactive Treating Comm ents Source Name Type Date Date Clinician No Known DA Active U 2020-09 [facility] 00:[facility]: d 00 [facility] No Known DA Active U 2020-09 [facility] Allergie 0-28 [facility]: d 00 [facility] NO KNOWN Drug Active Univers ALLERGIE Class ity of S [facility] Social History Social Habit Start Date Stop Date Quantity Comments Source History of Tobacco Use Co mmon [facility] Sex Assigned At Com mon [facility] Smoking Status Start Date Stop Date Source Unknown if ever smoked [facility] Never Smoker Common [facility] Medications Ordered Filled Start Stop [...] No Univers medications 0-09 ity of 19:54: [address] metoprolol 1-0 No 1mg tartrate 50 [...] Sodium 8-10 Spirit 00:00: - [facility]I 00 [facility] Ergocalcife Ergocalcife 2018- 2020- No Na Lopez 1 capsule Common rol rol -18 02-16 Spirit 00:00: 00:00 - CHI 00 :00 [facility] Paxil Paxil 0 Yes Na Lopez 1 tablet Comm on 12-26 in the Spirit 00:00: morning - CHI 00 [facility] Humira Humira No Humira Fluticasone Fluticasone No [...] MG Ergocalcife Ergocalcife No 1{capsu Ergocalcif rol 11167 rol 19657 le} fortunato 31305 UNIT UNIT UNIT Famotidine Famotidine No 1{table [...] MG Ergocalcife Ergocalcife No 1{capsu Ergocalcif rol 04588 rol 11746 le} fortunato 82901 UNIT UNIT UNIT busPIRone busPIRone No 1{table [...] MG Ergocalcife Ergocalcife No 1{capsu Ergocalcif rol 50689 rol 79475 le} fortunato 85383 UNIT UNIT UNIT Montelukast Montelukast No 1{table [...] MG Ergocalcife Ergocalcife No 1{capsu Ergocalcif rol 34198 rol 66679 le} fortunato 11134 UNIT UNIT UNIT Montelukast Montelukast No 1{table [...] MG Ergocalcife Ergocalcife No 1{capsu Ergocalcif rol 52367 rol 27896 le} fortunato 41598 UNIT UNIT UNIT Flonase 50 Flonase 50 [...] MG Ergocalcife Ergocalcife No 1{capsu Ergocalcif rol 07110 rol 13565 le} fortunato 38550 UNIT UNIT UNIT PARoxetine PARoxetine No PARoxetine [...] MG Ergocalcife Ergocalcife No 1{capsu Ergocalcif rol 37494 rol 76646 le} fortunato 69943 UNIT UNIT UNIT PARoxetine PARoxetine No PARoxetine [...] MG Ergocalcife Ergocalcife No 1{capsu Ergocalcif rol 65611 rol 50607 le} fortunato 09653 UNIT UNIT UNIT Aspirin 81 Aspirin 81 [...] MG Ergocalcife Ergocalcife No 1{capsu Ergocalcif rol 06843 rol 07496 le} fortunato 07076 UNIT UNIT UNIT ALPRAZolam ALPRAZolam No 1{table [...] MG Ergocalcife Ergocalcife No 1{capsu Ergocalcif rol 75946 rol 11658 le} fortunato 68981 UNIT UNIT UNIT ALPRAZolam ALPRAZolam No 1{table [...] MG Ergocalcife Ergocalcife No 1{capsu Ergocalcif rol 31667 rol 60477 le} fortunato 84946 UNIT UNIT UNIT ALPRAZolam ALPRAZolam No 1{table [...] MG Ergocalcife Ergocalcife No 1{capsu Ergocalcif rol 73552 rol 41392 le} fortunato 55874 UNIT UNIT UNIT Benzonatate Benzonatate No TID [...] MG Ergocalcife Ergocalcife No 1{capsu Ergocalcif rol 78676 rol 67120 le} forutnato 90174 UNIT UNIT UNIT Benzonatate Benzonatate No TID [...] MG Ergocalcife Ergocalcife No 1{capsu Ergocalcif rol 23951 rol 09320 le} fortunato 77367 UNIT UNIT UNIT Famotidine Famotidine No Famotidine [...] MG Ergocalcife Ergocalcife No 1{capsu Ergocalcif rol 41503 rol 15035 le} fortunato 72461 UNIT UNIT UNIT Famotidine Famotidine No Famotidine [...] MG Ergocalcife Ergocalcife No 1{capsu Ergocalcif rol 92176 rol 33392 le} fortunato 96202 UNIT UNIT UNIT Gabapentin Gabapentin No 1{capsu [...] MCG/ACT Ergocalcife Ergocalcife No 1{capsu Ergocalcif rol 46314 rol 90266 le} fortunato 97673 UNIT UNIT UNIT Gabapentin Gabapentin No 1{capsu [...] MG Ergocalcife Ergocalcife No 1{capsu Ergocalcif rol 51376 rol 07977 le} fortunato 29494 UNIT UNIT UNIT Montelukast Montelukast No Montelukas [...] MG Ergocalcife Ergocalcife No 1{capsu Ergocalcif rol 83402 rol 47571 le} fortunato 92560 UNIT UNIT UNIT Cetirizine Cetirizine No Cetirizine [...] MG Ergocalcife Ergocalcife No 1{capsu Ergocalcif rol 88806 rol 37846 le} fortunato 29641 UNIT UNIT UNIT Cetirizine Cetirizine No Cetirizine [...] MG Ergocalcife Ergocalcife No 1{capsu Ergocalcif rol 37586 rol 22083 le} fortunato 08281 UNIT UNIT UNIT Cetirizine Cetirizine No Cetirizine [...] MG Ergocalcife Ergocalcife No 1{capsu Ergocalcif rol 08482 rol 98632 le} fortunato 91669 UNIT UNIT UNIT Cetirizine Cetirizine No Cetirizine [...] MG Ergocalcife Ergocalcife No 1{capsu Ergocalcif rol 91352 rol 01570 le} fortunato 21830 UNIT UNIT UNIT Cetirizine Cetirizine No Cetirizine [...] MG Ergocalcife Ergocalcife No 1{capsu Ergocalcif rol 63672 rol 11958 le} fortunato 99377 UNIT UNIT UNIT guaiFENesin guaiFENesin No 10{ml_a [...] MG Ergocalcife Ergocalcife No 1{capsu Ergocalcif rol 07370 rol 94004 le} fortunato 95904 UNIT UNIT UNIT Meloxicam Meloxicam No Meloxicam [...] Humira Yes Na Lopez not Common defined [facility] Aspirin Aspirin Yes Na Lopez not Common defined [facility] BusPIRone BusPIRone Yes Na Lopez 1 tablet Common HCl HCl [facility] Metoprolol Metoprolol Yes Na Lopez 1 tablet Common Tartrate Tartrate with [facility]capsu BID Lagevrio 200 MG 200 [...] MG Ergocalcife Ergocalcife No 1{capsu Ergocalcif rol 98586 rol 98630 le} fortunato 72393 UNIT UNIT UNIT Gabapentin Gabapentin No 1{capsu [...] MCG/ACT Ergocalcife Ergocalcife No 1{capsu Ergocalcif rol 71493 rol 76640 le} fortunato 07009 UNIT UNIT UNIT Gabapentin Gabapentin No 1{capsu [...] MG Ergocalcife Ergocalcife No 1{capsu Ergocalcif rol 09099 rol 31149 le} fortunato 53351 UNIT UNIT UNIT Montelukast Montelukast No 1{table [...] MG t} Ergocalcife Ergocalcife No 1{capsu rol 97360 rol 32103 le} UNIT UNIT Montelukast Montelukast No 1{table [...] MG Ergocalcife Ergocalcife No 1{capsu Ergocalcif rol 56883 rol 61034 le} fortunato 64269 UNIT UNIT UNIT Montelukast Montelukast No 1{table [...] MG Ergocalcife Ergocalcife No 1{capsu Ergocalcif rol 52229 rol 68693 le} fortunato 58289 UNIT UNIT UNIT Omeprazole Omeprazole No 1{capsu [...] MG Ergocalcife Ergocalcife No 1{capsu Ergocalcif rol 05998 rol 08060 le} fortunato 02482 UNIT UNIT UNIT Vital Signs Vital Name Observation Time Observation Value Comments Source height 2022-08-31 08:20:00 63 [in_i] Common [facility] weight 2022-08-31 08:20:00 278 [lb_av] [facility] temperature 2022-08-31 08:20:00 98.5 [degF] [facility] bmi 2022-08-31 08:20:00 49.24 kg/m2 [facility] height 2022-08-10 10:20:00 63 [in_i] [facility] weight 2022-08-10 10:20:00 283 [lb_av] [facility] temperature 2022-08-10 10:20:00 98.5 [degF] [facility] bmi 2022-08-10 10:20:00 50.13 kg/m2 [facility] height 2022-06-22 10:20:00 63 [in_i] [facility] weight 2022-06-22 10:20:00 276 [lb_av] [facility] bmi 2022-06-22 10:20:00 48.89 kg/m2 [facility] height 2022-04-26 17:00:00 63 [in_i] [facility] weight 2022-04-26 17:00:00 279 [lb_av] [facility] temperature 2022-04-26 17:00:00 97.9 [degF] [facility] bmi 2022-04-26 17:00:00 49.42 kg/m2 [facility] height 2022-01-05 14:00:00 63 [in_i] [facility] weight 2022-01-05 14:00:00 297 [lb_av] [facility] bmi 2022-01-05 14:00:00 52.61 kg/m2 [facility] blood pressure 2022-01-05 14:00:00 148 mm[Hg] [facility] blood pressure 2022-01-05 14:00:00 102 mm[Hg] Common Spirit - diastolic [facility] height 2021-12-28 16:00:00 63 [in_i] [facility] weight 2021-12-28 16:00:00 300.4 [lb_av] [facility] temperature 2021-12-28 16:00:00 97.3 [degF] [facility] bmi 2021-12-28 16:00:00 53.21 kg/m2 [facility] oximetry 2021-12-28 16:00:00 100 % [facility] respiratory rate 2021-12-28 16:00:00 18 /min Comm on [facility] blood pressure 2021-12-28 16:00:00 137 mm[Hg] Common [facility] - systolic [facility] blood pressure 2021-12-28 16:00:00 83 mm[Hg] Common [facility] - diastolic [facility] height 2021-09-28 09:40:00 63 [in_i] [facility] weight 2021-09-28 09:40:00 283 [lb_av] [facility] temperature 2021-09-28 09:40:00 97.9 [degF] [facility] bmi 2021-09-28 09:40:00 50.13 kg/m2 [facility] height 2021-08-02 10:00:00 63 [in_i] [facility] weight 2021-08-02 10:00:00 282.6 [lb_av] [facility] temperature 2021-08-02 10:00:00 97.0 [degF] [facility] bmi 2021-08-02 10:00:00 50.05 kg/m2 [facility] oximetry 2021-08-02 10:00:00 97 % Common S pirit - [facility] respiratory rate 2021-08-02 10:00:00 16 /min Comm on Spirit - [facility] blood pressure 2021-08-02 10:00:00 140 mm[Hg] Common [facility] - systolic [facility] blood pressure 2021-08-02 10:00:00 62 mm[Hg] Common [facility] - diastolic [facility] Systolic blood 2021-07-04 00:50:00 180 mm[Hg] [facility] Diastolic blood 2021-07-04 00:50:00 110 mm[Hg] [facility] Heart rate 2021-07-04 00:50:00 79 /min [facility] Body temperature 2021-07-04 00:50:00 36.67 Gem [facility] Respiratory rate 2021-07-04 00:50:00 18 /min [facility] Body weight 2021-07-04 00:50:00 121.564 kg [facility] Oxygen saturation in 2021-07-04 00:50:00 99 /min [facility] Arterial blood by [facility] Pulse oximetry Branch BP Systolic 2022-01-21 14:32:00 BP Diastolic 2022-01-21 14:32:00 Weight Measured 2022-01-21 14:32:00 276.00 pounds Height Measured 2022-01-21 14:32:00 63.00 inches Body Temperature 2022-01-21 14:32:00 Heart Rate 2022-01-21 14:32:00 Respiratory Rate 2022-01-21 14:32:00 Procedures Procedure Date / Time Performed Performing Clinician Marta e XR CHEST 1 VW 2021-07-04 01:14:37 Raissa Tran [facility] NOTICE OF PRIVACY 2021-07-04 00:45:31 [facility] 2021-07-04 00:45:10 [facility] TREATMENT Plan of Care Planned Activity Planned Date Details Comments Source Goal Plan of Care Note [code = 51547-0] Goal Plan of Care Note [code = 11487-9] Goal Plan of Care Note [code = 06779-5] Goal Plan of Care Note [code = 11802-2] Goal Plan of Care Note [code = 31017-0] Goal Plan of Care Note [code = 62269-5] Goal Plan of Care Note [code = 03044-2] Goal Plan of Care Note [code = 89481-0] Goal Plan of Care Note [code = 40152-1] Goal Plan of Care Note [code = 67445-2] Goal Plan of Care Note [code = 57122-0] Goal Plan of Care Note [code = 14781-8] Goal Plan of Care Note [code = 45254-5] Goal Plan of Care Note [code = 58802-6] Goal Plan of Care Note [code = 31029-0] Goal Plan of Care Note [code = 79039-4] Encounters Start End Encounter Admission Attending Care Care Encounter Source Date/Time Date/Time Type Type Clinicians Facility Department ID 2022-12-29 Outpatient Chung, STLMLC STLMLC [id number] Common 15:24:00 Avnee [id number] [facility] 2022-12-21 Outpatient Layla, STLMLC STLMLC [id number] Common 09:47:00 Karol [id number] [facility] 2022-06-01 Outpatient Lopez, Na STLMLC STLMLC [id number] Common 09:18:00 [facility] 2022-04-13 Outpatient Lopez, Na STLMLC STLMLC [id number] Common 15:29:00 [facility] 2022-04-07 Outpatient Lopez, Na STLMLC STLMLC [id number] Common 16:07:00 [facility] 2022-01-04 Outpatient Lopez, Na STLMLC STLMLC [id number] Common 09:31:01 [facility] 2021-10-20 Outpatient Lopez, Na STLMLC STLMLC [id number] 2 Common 14:09:55 [id number] [facility] 2021-10-20 Outpatient Lopez, Na STLMLC STLMLC [id number] Common 13:47:22 [id number] [facility] 2021-10-20 Outpatient Lopez, Na STLMLC STLMLC [id number] 2 Common 12:29:04 [id number] [facility] 2021-10-20 Outpatient Lopez, Na STLMLC STLMLC [id number] 2 Common 12:03:44 [id number] [facility] 2021-10-20 Outpatient Lopez, Na STLMLC STLMLC [id number] 2 Common 12:03:05 [id number] [facility] 2021-10-20 Outpatient Lopez, Na STLMLC STLMLC [id number] 2 Common 11:43:49 [id number] [facility] 2021-10-20 Outpatient Olpez, Na STLMLC STLMLC [id number] 2 Common 11:35:56 [id number] [facility] 2021-10-20 Outpatient Lopez, Na STLMLC STLMLC [id number] 2 Common 11:18:09 [id number] [facility] 2021-10-20 Outpatient Lopez, Na STLMLC STLMLC [id number] 2 Common 11:04:54 [id number] [facility] 2021-10-20 Outpatient Lopez, Na STLMLC STLMLC [id number] 2 Common 11:04:25 [id number] [facility] 2022-08-31 2022-08-31 OFFICE STLMLC STLMLC [id number] Co mmon 00:00:00 00:00:00 VISIT EST Spir it PT LEVEL 3 [facility] 2022-08-30 2022-08-30 (TEL) STLMLC STLMLC [id number] Co mmon 00:00:00 00:00:00 [facility] 2022-08-29 2022-08-29 Outpatient SFA SFA [id number] Stef 15:26:21 15:26:21 1205 F Mohinder 2022-08-29 2022-08-29 Outpatient [id number] 00:00:00 00:00:00 Visit [id number] 2022-08-10 2022-08-10 (TEL) STLMLC STLMLC [id number] Co mmon 00:00:00 00:00:00 [facility] 2022-08-10 2022-08-10 (TEL) STLMLC STLMLC [id number] Co mmon 00:00:00 00:00:00 [facility] 2022-08-10 2022-08-10 (TEL) STLMLC STLMLC [id number] Co mmon 00:00:00 00:00:00 [facility] 2022-08-10 2022-08-10 OFFICE STLMLC STLMLC [id number] Co mmon 00:00:00 00:00:00 VISIT EST Spir it PT LEVEL 3 [facility] 2022-07-20 2022-07-20 (TEL) STLMLC STLMLC [id number] Co mmon 00:00:00 00:00:00 [facility] 2022-06-29 2022-06-29 (TEL) STLMLC STLMLC [id number] Co mmon 00:00:00 00:00:00 [facility] 2022-06-22 2022-06-22 OFFICE STLMLC STLMLC [id number] Co mmon 00:00:00 00:00:00 VISIT EST Spir it PT LEVEL 3 [facility] 2022-06-20 2022-06-20 (TEL) STLMLC STLMLC [id number] Co mmon 00:00:00 00:00:00 [facility] 2022-06-03 2022-06-03 OFFICE STLMLC STLMLC [id number] Co mmon 00:00:00 00:00:00 VISIT EST Spir it PT LEVEL 3 [facility] 2022-05-16 2022-05-16 (TEL) STLMLC STLMLC [id number] Co mmon 00:00:00 00:00:00 [facility] 2022-05-162022-05-16 OFFICE STLMLC STLMLC [id number] Co mmon 00:00:00 00:00:00 VISIT EST Spir it PT LEVEL 3 [facility] 2022-04-27 2022-04-27 (TEL) STLMLC STLMLC [id number] Co mmon 00:00:00 00:00:00 [facility] 2022-04-26 2022-04-26 (TEL) STLMLC STLMLC [id number] Co mmon 00:00:00 00:00:00 [facility] 2022-04-26 2022-04-26 OFFICE STLMLC STLMLC [id number] Co mmon 00:00:00 00:00:00 VISIT EST Spir it PT LEVEL 3 [facility] 2022-04-20 2022-04-20 Outpatient [id number] 00:00:00 00:00:00 Visit [id number] 2022-03-30 2022-03-30 OFFICE STLMLC STLMLC [id number] Co mmon 00:00:00 00:00:00 VISIT [facility] PT - [facility] LEVEL 4 [facility] 2022-02-14 2022-02-14 (TEL) STLMLC STLMLC [id number] Co mmon 00:00:00 00:00:00 [facility] 2022-01-27 2022-01-27 OFFICE STLMLC STLMLC [id number] Co mmon 00:00:00 00:00:00 VISIT EST Spir it PT LEVEL 3 - [facility] 2022-01-26 2022-01-26 (TEL) STLMLC STLMLC [id number] Co mmon 00:00:00 00:00:00 [facility] 2022-01-18 2022-01-18 (TEL) STLMLC STLMLC [id number] Co mmon 00:00:00 00:00:00 [facility] 2022-01-05 2022-01-05 OFFICE STLMLC STLMLC [id number] Co mmon 00:00:00 00:00:00 VISIT NEW Spir it PT LEVEL 3 - [facility] 2021-12-28 2021-12-28 OFFICE STLMLC STLMLC [id number] Co mmon 00:00:00 00:00:00 VISIT Spirit ESTAB PT - CHI LEVEL 4 [facility] 2021-11-15 2021-11-15 (TEL) STLMLC STLMLC [id number] Co mmon 00:00:00 00:00:00 [facility] - [facility] 2021-11-11 2021-11-11 (TEL) STLMLC STLMLC [id number] Co mmon 00:00:00 00:00:00 [facility] - [facility] 2021-09-28 2021-09-28 OFFICE STLMLC STLMLC [id number] Co mmon 00:00:00 00:00:00 VISIT Spirit ESTAB PT - CHI LEVEL 4 [facility] 2021-08-27 2021-08-27 (TEL) STLMLC STLMLC [id number] Co mmon 00:00:00 00:00:00 [facility] - [facility] 2021-08-04 2021-08-04 (TEL) STLMLC STLMLC [id number] Co mmon 00:00:00 00:00:00 [facility] - [facility] 2021-08-02 2021-08-02 OFFICE STLMLC STLMLC [id number] Co mmon 00:00:00 00:00:00 VISIT Spirit ESTAB PT - CHI LEVEL 4 [facility] 2021-07-22 2021-07-22 Outpatient Vanesa Cheung HCAPM RADI LA0 [id number] [facility] 08:00:00 08:00:00 63 [facility] 2021-07-03 2021-07-03 Emergency [facility] [id number] Univers 19:47:00 21:16:00 Raissa Alvarez [id number] ity [facility] [id number] [facility] [id number] [facility] 0[address] Branch 2021-07-03 2021-07-03 Emergency X [facility] E[facility] [id number] Univers 19:47:00 19:47:00 ity [facility] 2021-06-07 2021-06-07 Outpatient STLMLC STLMLC [id number] Common 00:00:00 00:00:00 [facility] 2021-05-06 2021-05-06 Outpatient STLMLC STLMLC [id number] Common 00:00:00 00:00:00 [facility] 2021-04-28 2021-04-28 Outpatient STLMLC STLMLC [id number] Common 00:00:00 00:00:00 [facility] 2021-04-27 2021-04-27 Outpatient STLMLC STLMLC [id number] Common 00:00:00 00:00:00 [facility] 2021-03-15 2021-03-15 Outpatient STLMLC STLMLC [id number] Common 00:00:00 00:00:00 [facility] 2021-01-04 2021-01-04 Outpatient STLMLC STLMLC [id number] Common 00:00:00 00:00:00 [facility] 2020-11-03 2020-11-03 Outpatient STLMLC STLMLC [id number] Common 00:00:00 00:00:00 [facility] 2020-08-03 2020-08-03 Outpatient STLMLC STLMLC [id number] Common 00:00:00 00:00:00 [facility] 2020-05-04 2020-05-04 [id number] Common 10:10:00 10:10:00 t [facility] [address] [facility] 2020-05-01 2020-05-01 [facility] [id number] Common 09:40:00 09:40:[address] [facility] 2020-02-19 2020-02-19 [facility] [id number] Common 16:06:00 16:06:00 t [facility] it Road [facility] 2019-12-12 2019-12-12 Out[facility] [id number] Common 15:41:00 15:41:[address] [facility] 2019-09-16 2019-09-16 [facility] [id number] Common 14:40:00 14:40:[address] [facility] 2019-08-15 2019-08-15 [facility] [id number] Common 09:27:00 09:27:[address] [facility] 2019-08-12 2019-08-12 [facility] [id number] Common 09:00:00 09:00:[address] [facility] 2019-07-31 2019-07-31 [facility] [id number] Common 11:46:00 11:46:[address] [facility] 2019-07-29 2019-07-29 Out[facility] [id number] Common 09:40:00 09:40:[address] [facility] 2019-06-02 2019-06-02 Out[facility] [id number] Common 09:38:00 09:38:00 t [facility]gent [facility] 2019-05-31 2019-05-31 Out[facility] [id number] Common 11:30:00 11:30:00 t [facility] 2018-01-19 2018-01-19 [facility] [id number] Common 08:11:00 08:11:[address] [facility] 2018-01-18 2018-01-18 [id number] Common 10:15:00 10:15:[address] [facility] 2017-12-26 2017-12-26 [id number] Common 09:30:00 09:30:00 t [facility] [employer] [facility] Results Test Description Test Time Test Comments Results Result Comments Source SARS-CoV-2 (COVID-19), RT-PCR/TMA 2021-12-10 07:26:55 Test Item Value Reference Range Interpretation Comme nts SARS-CoV-2 INTERPRETATION NEGATIVE SEE NOTE S ARS-CoV-2 RNA NOT (test code = 07480) DETECTED Negative results do not preclude SARS-C [...] ORDER CODE 3509. SOURCE (test code = 21850) NASOPHARYNGEAL Note: Methodology is Ro Charito Real-Time [...] are provided by method given in report:https:// [email or web address]/cl [email or web address]/client -communications/ Alternatively, see downloadable PDF fact sheet at:https://www. [email or web address].com/COVID- 19-RT-PCR UNLES S OTHERWISE INDICATED, ALL TESTING PERFORMED ATCLINICAL PATH [facility], [facility]. [address], [place] [address] NAIL MACHINE OPERATOR: PRUDENCE SOLIS M.D. CLIA NUMBER [id number] CAP ACCREDITATION N O. [id number] SARS-CoV-2 (COVID-19) by RT-PCR (HIGH RISK)2021-12-10 00:00:00 Test Item Value Reference Range Interpretation Comments SARS-CoV-2 INTERPRETATION NEGATIVE (test code = 62126) SOURCE (test code = 98631) NASOPHARYNGEAL SARS-CoV-2 (COVID-19) by RT-PCR (HIGH RISK)2021-12-10 00:00:00 Test Item Value Reference Range Interpretation Comments SARS-CoV-2 INTERPRETATION NEGATIVE (test code = 57206) SOURCE (test code = 72201) NASOPHARYNGEAL SARS-CoV-2 (COVID-19) by RT-PCR (HIGH RISK)2021-12-10 00:00:00 Test Item Value Reference Range Interpretation Comments SARS-CoV-2 INTERPRETATION NEGATIVE (test code = 45442) SOURCE (test code = 84945) NASOPHARYNGEAL Lipid Panel w/ Chol/HDL [id number] 00:00:00 Test Item Value Reference Range Interpretation Comments Cholesterol, Total (test code = 2093-3) 186 100-199 Triglycerides (test code = 2571-8) 86 0-149 HDL Cholesterol (test code = 2085-9) 59 >39 T. Chol/HDL Ratio (test code = 9830-1) 3.2 0.0-4.4 JOSÉ w/Reflex if [id number] 00:00:00 Test Item Value Reference Range Interpretation Comments JOSÉ Direct (test code = 8061-4) Negative Negative Comp. Metabolic Panel (14) (CMP)2021-08-02 00:00:00 Test Item Value Reference Range Interpretation Comments Glucose (test code = 2345-7) 75 65-99 BUN (test code = 3094-0) 10 6-24 Creatinine (test code = 2160-0) 0.74 0.57-1.00 eGFR If NonAfricn Am (test code = 97 >59 03920-6) eGFR If Africn Am (test code = 93219-0) 112 >59 BUN/Creatinine Ratio (test code = 14 9-23 3097-3) Sodium (test code = 2951-2) 141 134-144 Potassium (test code = 2823-3) 3.7 3.5-5.2 Chloride (test code = 2075-0) 102 96-106 Carbon Dioxide, Total (test code = -2027-9) Calcium (test code = 91465-5) 9.6 8.7-10.2 Protein, Total (test code = 2885-2) 8.8 6.0-8.5 Albumin (test code = 1751-7) 4.6 3.8-4.8 Globulin, Total (test code = 30907-7) 4.2 1.5-4.5 A/G Ratio (test code = 1759-0) 1.1 1.2-2.2 Bilirubin, Total (test code = 1974-2) 0.6 0.0-1.2 Alkaline Phosphatase (test code = 76 44-121 6768-6) AST (SGOT) (test code = 1920-8) 20 0-40 ALT (SGPT) (test code = 1742-6) 19 0-32 CBC With Differential/[id number] 00:00:00 Test Item Value Reference Range Interpretation [...] Granulocytes (test code = 0 Not Estab. 49742-0) Immature Grans (Abs) (test code = 0.0 0.0-0.1 10272-8) NRBC (test code = 73406-6) Hematology Comments: (test code = 30157-1) Rheumatoid Arthritis [id number] 00:00:00 Test Item Value Reference Range Interpretation Comments Rheumatoid Factor (RF) (test code = <10.0 0.0-13.9 27800-1) C-Reactive Protein, Quant (CRP)2021-08-02 00:00:00 Test Item Value Reference Range Interpretation Comments C-Reactive Protein, Quant (test code = 13 0-10 1987-5) Vitamin D, 82-[id number] 00:00:00 Test Item Value Reference Range Interpretation Comments Vitamin D, 25-Hydroxy (test code = 24.0 30.0-100.0 1988-) - CT ABD PELVIS W/[id number] 09:50:00 [facility] 1975 Sex: F Name: SHE GUARDADO [place] : 1975 Age/S: 46 / F [id number] [address] Unit #: [id number] Loc: [place] [address] Phys: Vanesa Nunez MD Acct: [id number] Dis Date: Status: REG CLI PHONE #: [phone] Exam Date: 07/22/2021917 FAX #: Reason: CROHNS DISEASE, UNSPECIFIED, WITHOUT COMPLICATI EXAMS: CPT: [id number] CT ABD PELVIS W/CONT 13817 HISTORY: CROHN'S DISEASE, UNSPECIFIED, WITHOUT COMPLICATIONS TECHNIQUE: [...] 1 Signed Report (CONTINUED) Name: SHE GUARDADO [place] : 1975 [facility]S: 46 [facility] Unit [facility]: [id number] Loc: [place] [address] Phys: Vanesa Nunez MD Acct: [id number] Dis Date: Status: REG CLI PHONE #: Exam Date: 07/22/2021917 FAX #: Reason: CROHNS DISEASE, UNSPECIFIED, WITHOUT COMPLICATIEXAMS: CPT: [id number] CT ABD PELVIS W/CONT 56754 (Continued) IMPRESSION: 1. There is mild diffuse [...] (0950) t.SDR.NB16 Orig Print D/T: S: 07/22/2021 (2465) PAGE 2 Signed [id number] 08:27:00 Test Item Value Reference Range Interpretation Comments ISTAT-BUN (test code = BUNP) 8 mg/dL 8-26 N BEDSIDE [id number] 08:27:00 Test Item Value Reference Range Interpretation Comments BEDSIDE CREATININE (test code = 0.6 mg/dL 0.6-1.3 N CREATBED) SARS-COV-2 (COVID19), NAAT [ADDED]2020-10-02 00:00:00 Test Item Value Reference Range Interpretation Comments SARS-CoV-2 INTERPRETATION (test NEGATIVE code = 67209) SOURCE (test code = 41800) NOT SPECIFIED SARS-COV-2 (COVID19), NAAT [ADDED]2020-10-02 00:00:00 Test Item Value Reference Range Interpretation Comments SARS-CoV-2 INTERPRETATION (test NEGATIVE code = 69658) SOURCE (test code = 39622) NOT SPECIFIED SARS-COV-2 (COVID19), NAAT [ADDED]2020-10-02 00:00:00 Test Item Value Reference Range Interpretation Comments SARS-CoV-2 INTERPRETATION (test NEGATIVE code = 22523) SOURCE (test code = 97506) NOT SPECIFIED SARS-CoV-2 (COVID-19) by RT-PCR (HIGH RISK)2020-04-17 00:00:00 Test Item Value Reference Range Interpretation Comments SARS-CoV-2 INTERPRETATION (test NEGATIVE code = 26833) SOURCE (test code = 27410) NOT SPECIFIED SARS-CoV-2 (COVID-19) by RT-PCR (HIGH RISK)2020-04-17 00:00:00 Test Item Value Reference Range Interpretation Comments SARS-CoV-2 INTERPRETATION (test NEGATIVE code = 88560) SOURCE (test code = 17803) NOT SPECIFIED SARS-CoV-2 (COVID-19) by RT-PCR (HIGH RISK)2020-04-17 00:00:00 Test Item Value Reference Range Interpretation Comments SARS-CoV-2 INTERPRETATION (test NEGATIVE code = 04585) SOURCE (test code = 29471) NOT SPECIFIED POC, COVID 19 Antigen + Flu by SofiaPOC, COVID 19 Antigen + Flu by Jennifer
--- NOTE | 2023-01-21 08:11 | RAD REPORT ---
EXAM DESCRIPTION: US - Extremity Venous Uni Ltd - 01/21/2023 6:46 am CLINICAL HISTORY: Leg pain COMPARISON: 01/17/2023 TECHNIQUE: Real-time sonographic evaluation of the right lower extremity deep venous system was perf ormed. FINDINGS: Normal compressibility, flow augmentation, phasic flow and spontaneous flow is identified in the right lower extremity deep venous system. No intraluminal filling defects seen. IMPRESSION: No evidence of DVT in the right lower extremity.
--- NOTE | 2023-01-21 08:18 | EDPHYS ---
Physician Documentation [facility] Name: Dori Guardado Age: 47 yrs Sex: Female : 1975 Arrival Date: 01/21/2023 Time: 05:33 Bed 20 Private MD: ED Physician Camilo Marie HPI: 01/21 05:49 This 47 yrs old Black Female presents to ER via Unassigned with complaints of Leg sp4 Swelling, Leg Pain. 06:35 47-year-old female with extensive past medical history presents with acute right lower sp4 extremity pain onset this morning associated with some painful sensation behind the knee, patient is here because she is concerned about blood clot in the leg. . Patient denied any swelling in the leg and no pain on ambulation. . Patient has history of electrical cardioversion on 12/30/2022 from atrial fibrillation to normal sinus rhythm via transesophageal echocardiogram. Patient has history of right lower extremity venous Doppler done on 01/17/2023 that revealed no sonographic evidence of right lower extremity deep venous thrombosis. Patient has history of recent admission on 12/30/[address] Rene Baron, for hypertension, paroxysmal atrial fibrillation, Crohn's disease, rheumatoid arthritis, patient's past medical history is positive for hypertension, paroxysmal atrial fibrillation, Crohn's disease, rheumatoid arthritis, multiple prior admissions for various complaints including tachycardia, atrial fibrillation. His home medications include aspirin, buspirone, Bentyl, metoprolol, multivitamins, methylprednisolone, metoprolol, patient was started on Eliquis during her recent admission. Echocardiogram on 12/30/2022 revealed normal left ventricular ejection fraction of 55 to 60%, normal wall motion, mild tricuspid regurgitation, and trace mitral regurgitation. . Historical: - Allergies: 06:04 No Known Allergies; pf1 - PMHx: 06:04 Atrial Fib; bowel obstruction; Crohn's; Hypertension; pf1 - PSHx: 06:04 Appendectomy; section; Cholecystectomy; partial hysterectomy; pf1 - Social history:: Patient/guardian denies using alcohol, street drugs, IV drugs, caffeine, over the counter diet medications, tobacco products, Smoking status: unknown. - Family history:: not pertinent. ROS: 06:35 Constitutional: Negative for fever, chills, and weight loss, Eyes: Negative for injury, sp4 pain, redness, and discharge, ENT: Negative for injury, pain, and discharge, Neck: Negative for injury, pain, and swelling, Cardiovascular: Negative for chest pain, palpitations, and edema, Respiratory: Negative for shortness of breath, cough, wheezing, and pleuritic chest pain, Abdomen/GI: Negative for abdominal pain, nausea, vomiting, diarrhea, and constipation, Back: Negative for injury and pain, : Negative for injury, bleeding, discharge, and swelling, MS/Extremity: Negative for injury and deformity, reported lateral right lower extremity pain without swelling, pain behind the right knee Skin: Negative for injury, rash, and discoloration, Neuro: Negative for headache, weakness, numbness, tingling, and seizure, Psych: Negative for depression, anxiety, Allergy/Immunology: Negative for hives, rash, and allergies Endocrine: Negative for neck swelling, polydipsia, polyuria, polyphagia, and weight changes Hematologic/Lymphatic: Negative for swollen nodes, abnormal bleeding, and unusual bruising Exam: 06:35 Constitutional: This is a well developed, well nourished patient who is awake, alert, sp4 and in no acute distress. Morbidly overweight female Head/Face: Normocephalic, atraumatic. Eyes: Pupils equal round and reactive to light, extra-ocular motions intact. Lids and lashes normal. Conjunctiva and sclera are not injected. Cornea within normal limits. Periorbital areas with no swelling, redness, or edema. ENT: Nares patent. No nasal discharge, no septal abnormalities noted. Tympanic membranes are normal and external auditory canals are clear. Oropharynx with no redness, swelling, or masses, exudates, or evidence of obstruction, uvula midline. Mucous membranes moist. Neck: Trachea midline, no thyromegaly or masses palpated, and no cervical lymphadenopathy. Supple, full range of motion without nuchal rigidity, or vertebral point tenderness. No Meningismus. Chest/axilla: Normal chest wall appearance and motion. Nontender with no deformity. No lesions are appreciated. Cardiovascular: Regular rate and rhythm with a normal S1 and S2. No gallops, murmurs, or rubs. Normal PMI, no JVD. No pulse deficits. Respiratory: Lungs have equal breath sounds bilaterally, clear to auscultation and percussion. No rales, rhonchi or wheezes noted. No increased work of breathing, no retractions or nasal flaring. Abdomen/GI: Soft, non-tender, with normal bowel sounds. No distension or tympany. No guarding or rebound. No evidence of tenderness throughout. Back: No spinal tenderness. No costovertebral tenderness. Skin: Warm, dry with normal turgor. Normal color with no rashes, no lesions, and no evidence of cellulitis. MS/ Extremity: Pulses equal, no cyanosis. Neurovascular intact. Full, normal range of motion. No significant swelling of right or left lower extremity, no edema, normal peripheral pulses, neurovascular components are intact Neuro: Awake and alert, GCS 15, oriented to person, place, time, and situation. Cranial nerves II-XII grossly intact. Motor strength 5/5 in all extremities. Sensory grossly intact. Psych: Awake, alert, with orientation to person, place and time. Behavior, mood, and affect are within normal limits Vital Signs: 06:00 BP 117 / 77; Pulse 68; Resp 18; Temp 97.8; Pulse Ox 98% on R/A; Weight 129.27 kg; pf1 Height 5 ft. 3 in. ; Pain 6/10; 06:25 BP 111 / 77; Pulse 81; Resp 18 S; Pulse Ox 98% on R/A; ha1 08:21 BP 121 / 76; Pulse 103; Resp 18 S; Pulse Ox 96% on R/A; kc6 06:00 Body Mass Index 50.48 (129.27 kg, 160.02 cm) pf1 06:00 Pain Scale: Adult pf1 MDM: 06:34 Patient medically screened. sp4 06:35 Differential diagnosis: contusion, abrasion, tendonitis. Data reviewed: vital signs, sp4 nurses notes, radiologic studies, ultrasound. 08:18 Care significantly affected by the following chronic conditions: Hypertension, Atrial ms3 fibrillation. Counseling: I had a detailed discussion with the patient and/or guardian regarding: the historical points, exam findings, and any diagnostic results supporting the discharge/admit diagnosis, radiology results, the need for outpatient follow up, to return to the emergency department if symptoms worsen or persist or if there are any questions or concerns that arise at home. ED course: Discussed lower extremity venous Doppler with patient. Patient to follow-up with Dr. Lynch in 2 to 3 days. Patient understands and agrees with plan. All questions were answered. Return precautions discussed include worsening symptoms, or any other concerns.. 01/21 06:01 Order name: Extremity Venous Uni Ltd US; Complete Time: 08:14 sp4 Administered Medications: No medications were administered Disposition Summary: 01/21/23 08:18 Discharge Ordered Location: Home ms3 Condition: Stable ms3 Diagnosis - Right leg swelling ms3 - Pain in right leg ms3 Followup: ms3 - With: Tramaine Lynch DO - When: 2 - 3 days - Reason: Recheck today's complaints Discharge Instructions: - Discharge Summary Sheet ms3 - Musculoskeletal Pain ms3 Forms: - Medication Reconciliation Form ms3 - Thank You Letter ms3 - Antibiotic Education ms3 - Prescription Opioid Use ms3 Signatures: Dispatcher [employer] EDMS Camilo Marie DO DO ms3 Cely Montes RN RN ha1 Claudine raygoza RN RN pf1 Jose Luis Parikh MD MD sp4
--- NOTE | 2023-01-21 08:18 | ER ---
Nurse's Notes [facility] Name: Dori Guardado Age: 47 yrs Sex: Female : 1975 Arrival Date: 01/21/2023 Time: 05:33 Bed 20 Private MD: Diagnosis: Right leg swelling;Pain in right leg Presentation: 01/21 06:00 Chief complaint: Patient states: right anterior and posterior knee pain of 6,onset 1999 pf1 last night. Patient denies any injury. Patient stated started taking Eliquis again for AFIB. Coronavirus screen:. Ebola Screen: Patient negative for fever greater than or equal to 101.5 degrees Fahrenheit, and additional compatible Ebola Virus Disease symptoms. Initial Sepsis Screen: Does the patient meet any 2 criteria? No. Patient's initial sepsis screen is negative. Does the patient have a suspected source of infection? No. Patient's initial sepsis screen is negative. Risk Assessment: Do you want to hurt yourself or someone else? Patient reports no desire to harm self or others. Onset of symptoms was January 20, 2023. 06:00 Method Of Arrival: Ambulatory pf1 06:00 Acuity: KASH 3 pf1 Historical: - Allergies: 06:04 No Known Allergies; pf1 - PMHx: 06:04 Atrial Fib; bowel obstruction; Crohn's; Hypertension; pf1 - PSHx: 06:04 Appendectomy; section; Cholecystectomy; partial hysterectomy; pf1 - Social history:: Patient/guardian denies using alcohol, street drugs, IV drugs, caffeine, over the counter diet medications, tobacco products, Smoking status: unknown. - Family history:: not pertinent. Screenin:06 [facility] ED Fall Risk Assessment (Adult) History of falling in the last 3 months, pf1 including since admission No falls in past 3 months (0 pts) Confusion or Disorientation No (0 pts) Intoxicated or Sedated No (0 pts) Impaired Gait No (0 pts) Mobility Assist Device Used No (0 pt) Altered Elimination No (0 pt) Score/Fall Risk Level 0 - 2 = Low Risk Oriented to surroundings, Maintained a safe environment, Educated pt \T\ family on fall prevention, incl call for assistance when getting out of bed, Assessed \T\ reinforced patient's understanding of fall precautions, Provided non-skid footwear, Hourly rounding (assess needs \T\ fall precautionary measures) done, Used ambulatory aids as needed (educated on \T\ assisted with), Used gait belt as appropriate. Abuse screen: Denies threats or abuse. Nutritional screening: No deficits noted. Tuberculosis screening: No symptoms or risk factors identified. Assessment: 05:59 General: Appears uncomfortable, Behavior is calm, cooperative. Pain: Complains of pain ha1 in right leg Pain does not radiate. Pain currently is 8 out of 10 on a pain scale. Quality of pain is described as throbbing. Neuro: Level of Consciousness is awake, alert, obeys commands, Oriented to person, place, time, situation. Cardiovascular: Patient's skin is warm and dry. Respiratory: Airway is patent Respiratory effort is even, unlabored, Respiratory pattern is regular, symmetrical. GI: No signs and/or symptoms were reported involving the gastrointestinal system. Abdomen is non-distended, obese. : No signs and/or symptoms were reported regarding the genitourinary system. Derm: Skin is healthy with good turgor, Skin is moist, Skin is normal. Musculoskeletal: Circulation, motion, and sensation intact. Range of motion: intact in all extremities, Reports pain in right leg. 07:00 Reassessment: Patient appears in no apparent distress at this time. No changes from kc6 previously documented assessment. Patient and/or family updated on plan of care and expected duration. Pain level reassessed. Patient is alert, oriented x 3, equal unlabored respirations, skin warm/dry/pink. 08:00 Reassessment: Patient appears in no apparent distress at this time. No changes from kc6 previously documented assessment. Patient and/or family updated on plan of care and expected duration. Pain level reassessed. Patient is alert, oriented x 3, equal unlabored respirations, skin warm/dry/pink. Vital Signs: 06:00 BP 117 / 77; Pulse 68; Resp 18; Temp 97.8; Pulse Ox 98% on R/A; Weight 129.27 kg; pf1 Height 5 ft. 3 in. ; Pain 6/10; 06:25 BP 111 / 77; Pulse 81; Resp 18 S; Pulse Ox 98% on R/A; ha1 08:21 BP 121 / 76; Pulse 103; Resp 18 S; Pulse Ox 96% on R/A; kc6 06:00 Body Mass Index 50.48 (129.27 kg, 160.02 cm) pf1 06:00 Pain Scale: Adult pf1 ED Course: 05:37 Patient arrived in ED. jj6 05:49 Jose Luis Parikh MD is Attending Physician. sp4 05:59 Arm band placed on right wrist. ha1 05:59 Patient has correct armband on for positive identification. Bed in low position. Call ha1 light in reach. Side rails up X 1. 06:04 Triage completed. pf1 06:23 Cely Montes, RN is Primary Nurse. ha1 06:32 Extremity Venous Uni Ltd US In Process Unspecified. EDMS 07:00 Report received from Cely Montes RN. kc6 07:09 Attending Physician role handed off by Jose Luis Parikh MD ms3 07:09 Camilo Marie DO is Attending Physician. ms3 08:17 Tramaine Lynch DO is Referral Physician. ms3 08:24 No provider procedures requiring assistance completed. Patient did not have IV access kc6 during this emergency room visit. Administered Medications: No medications were administered Medication: 08:25 VIS not applicable for this client. kc6 Outcome: 08:18 Discharge ordered by MD. ms3 08:25 Discharged to home ambulatory. kc6 08:25 Condition: stable 08:25 Discharge instructions given to patient, Instructed on discharge instructions, follow up and referral plans. Demonstrated understanding of instructions, follow-up care. 08:25 Patient left the ED. kc6 Signatures: Dispatcher [employer] EDMS Camilo Marie DO DO ms3 Ngozi Hamm jj6 Cely Montes RN RN ha1 Meg Pritchett RN RN kc6 finley, Pamala, RN RN pf1 Jose Luis Parikh MD MD sp4
[2023-01-21 08:31] VITALS: TEMP 97.8
[2023-01-21 08:37] VITALS: BP 121/76; O2SAT 96
== END 2023-01-21 08:25 | disposition home or self-care (01) ==
LOC: ER 05:33
DX: R22.41 Localized swelling, mass and lump, right lower limb (principal); M79.604 Pain in right leg
CPT/HCPCS: 93971; 99283

== ENCOUNTER 2023-03-11 22:14 | Emergency (ER) | payer OTHER ==
--- OUTSIDE RECORDS SUMMARY | 2023-03-11 22:23 | XMS REPORT | Continuity of Care Document ---
:1975 Author Organization [facility] t Address [address] [facility] [address] [place] [address] Care Team Providers Name Role Phone Noemy Lopez Primary Care Physician Taylor Chung Attending Clinician Unavailable Karol Rich Attending Clinician Unavailable Noemy Lopez Attending Clinician Unavailable Doctor Unassigned, [place] Attending Clinician Unavailable Vanesa Nunez Attending Clinician Unavailable Raissa Tran DO Attending Clinician Noemy Lopez Admitting Clinician Unavailable Payers Payer Name Policy Type Policy Number Effective Date Expiration Date [place] [address] [id number] 2020 [facility] [place] [address] [id number] 2020 [facility] Choice 00:00:00 - [facility] [place] [address] [id number] 2020 Common [facility] t Health Choice 00:00:00 - [facility] [place] Problems Condition Condition Condition Status Onset Resolution Last Treating Co mments Source Name Details Category Date Date Treatment Clinician Date [id number] Microcytic Problem Co mmon anemia [facility] [id number] [place], [place] [id number] joint, Spirit knee, - CHI right [facility] [id number] Sinusitis, Problem Com mon maxillary, Spirit chronic - [facility] [id number] Recurrent Problem Com mon falls Spirit [facility] [id number] Balance Problem Commo n problem [facility] Morbid Obesity, Problem Common obesity morbid, Spirit BMI 50 or - CHI higher [facility] [id number] Crohn's Problem Commo n disease in Spirit remission [facility] [id number] Gastroesop Problem Co mmon hageal Spirit reflux - CHI disease, esophagiti [facility] s presence Medica l not Center specified Iron Iron Problem Common deficiency deficiency Sp jose anemia anemia, - CHI unspecifie RUST iron [facility] deficiency Medica l anemia Center type [id number] Adult Problem Common general [facility] medical - CHI exam [facility] [id number] Hematuria, Problem Com mon unspecifie Spirit d - [facility] [id number] Multiple Problem Commo n joint pain [facility] [id number] Urinary Problem Common tract Spirit infection, - CHI site not [facility] [id number] BMI Problem Common 50.0-59.9, [facility] adult [facility] [id number] Vitamin D Problem Comm on deficiency [facility] [id number] Grieving Problem Comm on Spirit [facility] [id number] Seasonal Problem Comm on allergic Spirit rhinitis, - CHI unspecifie [facility] [id number] Abdominal Problem Com mon bloating Spirit [facility] [id number] Crohn's Problem Common disease [facility] Center gastrointe stinal tract location [id number] Seasonal Problem Commo n allergic Spirit rhinitis - CHI due to [facility] Mixed Depression Problem Commo n anxiety with Spirit and anxiety - CHI depressive [facility] High blood High blood Problem C ommon pressure pressure [facility] [id number] Other Problem Common chronic Spirit pain [facility] [id number] Esophageal Problem Com mon stricture [facility] No known No known Disease Unive rs active active ity of problems problems [facility] Allergies, Adverse Reactions, Alerts Allergy Allergy Status Severity Reaction(s) Onset Inactive Treating Comm ents Source Name Type Date Date Clinician No Known DA Active U 2020-09 [facility]ie 0-28 [place] [facility] 00:00: d 00 [facility] No Known DA Active U 2020-09 [facility] Allergie 0-28 [place] [facility] 00:00: d 00 [facility] NO KNOWN Drug Active Univers ALLERGIE Class ity of S [facility] Social History Social Habit Start Date Stop Date Quantity Comments Source History of Tobacco Use Co mmon [facility] Sex Assigned At Com [facility] Smoking Status Start Date Stop Date Source Tobacco smoking consumption [facility] Never Smoker Common [facility] Medications Ordered Filled Start Stop [...] No KIT 06-06 CD/UC/HS 00:00: 00 IPRATROPIUM No SPR 0.06% 05-26 00:00: 00 Telmisartan Telmisartan No 1{table QD Telmisarta 20 MG 20 MG 8-22 t_at_be n 20 MG 00:00: dtime} 00 Telmisartan Telmisartan No 1{table QD Telmisarta 20 MG 20 MG 8-22 t_at_be n 20 MG 00:00: dtime} 00 Dose 2021-0 No Unknown 8-12 00:00: 00 Dose 2021-0 No Unknown 8-11 00:00: 00 Dose 2021-0 No Unknown 8- 00:00: 00 fluconazole 2021-0 No 1mg 150 mg 7-27 tablet 00:00: 00 nystatin 2021-0 No 10unit/ 100,000 7-27 mL unit/mL 00:00: oral 00 suspension Dose 2021-0 No Unknown 7-27 00:00: 00 Dose 2021-0 No Unknown 7-27 00:00: 00 Dose 2021-0 No Unknown 7-27 00:00: 00 fluconazole 2021-0 No 1mg 150 mg 7-27 tablet 00:00: 00 nystatin 2021-0 No 10unit/ 100,000 7-27 mL unit/mL 00:00: oral 00 suspension Dose 2021-0 No Unknown 7-27 00:00: 00 Dose 2021-0 No Unknown 7-27 00:00: 00 Dose 2021-0 No Unknown 7-27 00:00: 00 Augmentin Augmentin 2021-0 2021- No 1{table BID Augmentin 500-125 MG 500-125 MG 7 07-13 t} 500-125 MG 00:00: 00:00 00 :00 Sudafed 12 2021-0 No 1mg Hour 120 mg 6-17 tablet,exte 00:00: nded 00 release Sudafed 12 2-0 No 1mg Hour 120 mg 6-17 tablet,exte 00:00: nded 00 release guaiFENesin guaiFENesin 2022-0 2022- No QID guaiFENesi -Codeine -Codeine 5-04 05-11 n-Codeine 100-10 100-10 00:00: 00:00 100-10 MG/5ML MG/5ML 00 :00 MG/5ML azithromyci 2-0 No mg n 250 mg 4-29 tablet 00:00: 00 Dose 2022-0 No Unknown 4-29 00:00: 00 Dose 2-0 No Unknown 4- 00:00: 00 Dose 2022-0 [...] Dose 2022-0 No Unknown 4- 00:00: 00 ProAir HFA 2021-0 No 2mcg/ac 90 4-29 tuation mcg/actuati 00:00: on aerosol 00 inhaler Mobic 7.5 Mobic 7.5 0 2021- No 1{table QD Mobic 7.5 MG [...] No Univers medications 0-09 ity of 19:54: [address] metoprolol 1-0 No 1mg tartrate 50 [...] No 2{spray QD Flonase 50 MCG/ACT MCG/ACT 8 _in_eac MCG/ACT 00:00: h_nostr 00 il} Cetirizine [...] Sodium 8-10 Spirit 00:00: - CHI 00 [facility] Ergocalcife Ergocalcife 2018- 2020- No Na Lopez 1 capsule Common rol rol -18 11-10 Spirit 00:00: 00:00 - CHI 00 :00 [facility] Paxil Paxil 0 Yes Na Lopez 1 tablet Comm on 12-26 in the Spirit 00:00: morning - CHI 00 [facility] Omeprazole Omeprazole No 1{capsu QD Omeprazole 40 [...] MG Ergocalcife Ergocalcife No 1{capsu Ergocalcif rol 73928 rol 67870 le} fortunato 50963 UNIT UNIT UNIT Humira Humira No Humira [...] MG Ergocalcife Ergocalcife No 1{capsu Ergocalcif rol 07053 rol 25326 le} fortunato 40560 UNIT UNIT UNIT Famotidine Famotidine No 1{table [...] MG Ergocalcife Ergocalcife No 1{capsu Ergocalcif rol 97894 rol 37376 le} fortunato 60104 UNIT UNIT UNIT busPIRone busPIRone No 1{table [...] MG Ergocalcife Ergocalcife No 1{capsu Ergocalcif rol 27053 rol 92279 le} fortunato 15748 UNIT UNIT UNIT Montelukast Montelukast No 1{table [...] MG Ergocalcife Ergocalcife No 1{capsu Ergocalcif rol 10329 rol 64589 le} fortunato 39638 UNIT UNIT UNIT Montelukast Montelukast No 1{table [...] MG Ergocalcife Ergocalcife No 1{capsu Ergocalcif rol 53035 rol 27346 le} fortunato 43617 UNIT UNIT UNIT Flonase 50 Flonase 50 [...] MG Ergocalcife Ergocalcife No 1{capsu Ergocalcif rol 46758 rol 69441 le} fortunato 05644 UNIT UNIT UNIT PARoxetine PARoxetine No PARoxetine [...] MG Ergocalcife Ergocalcife No 1{capsu Ergocalcif rol 37890 rol 60012 le} fortunato 37853 UNIT UNIT UNIT PARoxetine PARoxetine No PARoxetine [...] MG Ergocalcife Ergocalcife No 1{capsu Ergocalcif rol 28456 rol 72298 le} fortunato 30443 UNIT UNIT UNIT Aspirin 81 Aspirin 81 [...] MG Ergocalcife Ergocalcife No 1{capsu Ergocalcif rol 41221 rol 07617 le} fortunato 28503 UNIT UNIT UNIT ALPRAZolam ALPRAZolam No 1{table [...] MG Ergocalcife Ergocalcife No 1{capsu Ergocalcif rol 65532 rol 41385 le} fortunato 02636 UNIT UNIT UNIT ALPRAZolam ALPRAZolam No 1{table [...] MG Ergocalcife Ergocalcife No 1{capsu Ergocalcif rol 75435 rol 77506 le} fortunato 30268 UNIT UNIT UNIT ALPRAZolam ALPRAZolam No 1{table [...] MG Ergocalcife Ergocalcife No 1{capsu Ergocalcif rol 86188 rol 96914 le} fortunato 91185 UNIT UNIT UNIT Benzonatate Benzonatate No TID [...] MG Ergocalcife Ergocalcife No 1{capsu Ergocalcif rol 71710 rol 75424 le} fortunato 46975 UNIT UNIT UNIT Benzonatate Benzonatate No TID [...] MG Ergocalcife Ergocalcife No 1{capsu Ergocalcif rol 91201 rol 79868 le} fortunato 31716 UNIT UNIT UNIT Famotidine Famotidine No Famotidine [...] MG Ergocalcife Ergocalcife No 1{capsu Ergocalcif rol 63167 rol 17598 le} fortunato 29952 UNIT UNIT UNIT Famotidine Famotidine No Famotidine [...] MG Ergocalcife Ergocalcife No 1{capsu Ergocalcif rol 74884 rol 05020 le} fortunato 37206 UNIT UNIT UNIT Gabapentin Gabapentin No 1{capsu [...] MCG/ACT Ergocalcife Ergocalcife No 1{capsu Ergocalcif rol 06411 rol 45648 le} fortunato 95286 UNIT UNIT UNIT Gabapentin Gabapentin No 1{capsu [...] MG Ergocalcife Ergocalcife No 1{capsu Ergocalcif rol 99223 rol 97270 le} fortunato 32623 UNIT UNIT UNIT Montelukast Montelukast No Montelukas [...] MG Ergocalcife Ergocalcife No 1{capsu Ergocalcif rol 41838 rol 98557 le} fortunato 18618 UNIT UNIT UNIT Cetirizine Cetirizine No Cetirizine [...] MG Ergocalcife Ergocalcife No 1{capsu Ergocalcif rol 30736 rol 31998 le} fortunato 17942 UNIT UNIT UNIT Cetirizine Cetirizine No Cetirizine [...] MG Ergocalcife Ergocalcife No 1{capsu Ergocalcif rol 25090 rol 97640 le} fortunato 18817 UNIT UNIT UNIT Cetirizine Cetirizine No Cetirizine [...] MG Ergocalcife Ergocalcife No 1{capsu Ergocalcif rol 54782 rol 58869 le} fortunato 13484 UNIT UNIT UNIT Cetirizine Cetirizine No Cetirizine [...] MG Ergocalcife Ergocalcife No 1{capsu Ergocalcif rol 04071 rol 25226 le} fortunato 13043 UNIT UNIT UNIT Cetirizine Cetirizine No Cetirizine [...] MG Ergocalcife Ergocalcife No 1{capsu Ergocalcif rol 54625 rol 54742 le} fortunato 48973 UNIT UNIT UNIT guaiFENesin guaiFENesin No 10{ml_a [...] MG Ergocalcife Ergocalcife No 1{capsu Ergocalcif rol 17367 rol 09481 le} fortunato 77102 UNIT UNIT UNIT Meloxicam Meloxicam No Meloxicam [...] Humira Yes Na Lopez not Common defined [facility] Aspirin Aspirin Yes Na Lopez not Common defined [facility] BusPIRone BusPIRone Yes Na Lopez [address] HCl HCl [facility] Metoprolol Metoprolol Yes Na Lopez 1 tablet Common Tartrate Tartrate with food [facility] Lagevrio Lagevrio No 4{capsu BID Lagevrio [...] MG Ergocalcife Ergocalcife No 1{capsu Ergocalcif rol 57260 rol 66773 le} fortunato 50501 UNIT UNIT UNIT Gabapentin Gabapentin No 1{capsu [...] MCG/ACT Ergocalcife Ergocalcife No 1{capsu Ergocalcif rol 16946 rol 03998 le} fortunato 53918 UNIT UNIT UNIT Gabapentin Gabapentin No 1{capsu [...] MG Ergocalcife Ergocalcife No 1{capsu Ergocalcif rol 86110 rol 02603 le} fortunato 28065 UNIT UNIT UNIT Montelukast Montelukast No 1{table [...] MG t} Ergocalcife Ergocalcife No 1{capsu rol 18694 rol 52303 le} UNIT UNIT Montelukast Montelukast No 1{table [...] MG Ergocalcife Ergocalcife No 1{capsu Ergocalcif rol 15271 rol 33560 le} fortunato 61350 UNIT UNIT UNIT Montelukast Montelukast No 1{table [...] MG Ergocalcife Ergocalcife No 1{capsu Ergocalcif rol 05663 rol 02219 le} fortunato 98076 UNIT UNIT UNIT Omeprazole Omeprazole No 1{capsu [...] 0.5 MG 0.5 MG t} 0.5 MG Vital Signs Vital Name Observation Time Observation Value Comments Source height 2022-08-31 08:20:00 63 [in_i] Common S pirit [facility] weight 2022-08-31 08:20:00 278 [lb_av] Common [facility] temperature 2022-08-31 08:20:00 98.5 [degF] Common [facility] bmi 2022-08-31 08:20:00 49.24 kg/m2 [facility] height 2022-08-10 10:20:00 63 [in_i] Common [facility] weight 2022-08-10 10:20:00 283 [lb_av] [facility] temperature 2022-08-10 10:20:00 98.5 [degF] [facility] bmi 2022-08-10 10:20:00 50.13 kg/m2 [facility] height 2022-06-22 10:20:00 63 [in_i] [facility] weight 2022-06-22 10:20:00 276 [lb_av] [facility] bmi 2022-06-22 10:20:00 48.89 kg/m2 [facility] height 2022-04-26 17:00:00 63 [in_i] [facility] weight 2022-04-26 17:00:00 279 [lb_av] [facility] temperature 2022-04-26 17:00:00 97.9 [degF] [facility] bmi 2022-04-26 17:00:00 49.42 kg/m2 [facility] height 2022-01-05 14:00:00 63 [in_i] [facility] weight 2022-01-05 14:00:00 297 [lb_av] [facility] bmi 2022-01-05 14:00:00 52.61 kg/m2 [facility] blood pressure 2022-01-05 14:00:00 148 mm[Hg] Common [facility] - systolic [facility] blood pressure 2022-01-05 14:00:00 102 mm[Hg] Common Spirit - diastolic [facility] height 2021-12-28 16:00:00 63 [in_i] Common [facility] weight 2021-12-28 16:00:00 300.4 [lb_av] [facility] temperature 2021-12-28 16:00:00 97.3 [degF] [facility] bmi 2021-12-28 16:00:00 53.21 kg/m2 [facility] oximetry 2021-12-28 16:00:00 100 % [facility] respiratory rate 2021-12-28 16:00:00 18 /min Comm [facility] blood pressure 2021-12-28 16:00:00 137 mm[Hg] Common [facility] - systolic [facility] blood pressure 2021-12-28 16:00:00 83 mm[Hg] Common [facility] - diastolic [facility] height 2021-09-28 09:40:00 63 [in_i] Common [facility] weight 2021-09-28 09:40:00 283 [lb_av] [facility] temperature 2021-09-28 09:40:00 97.9 [degF] [facility] bmi 2021-09-28 09:40:00 50.13 kg/m2 [facility] height 2021-08-02 10:00:00 63 [in_i] [facility] weight 2021-08-02 10:00:00 282.6 [lb_av] [facility] temperature 2021-08-02 10:00:00 97.0 [degF] [facility] bmi 2021-08-02 10:00:00 50.05 kg/m2 [facility] oximetry 2021-08-02 10:00:00 97 % Common S pirit - [facility] respiratory rate 2021-08-02 10:00:00 16 /min Comm on Spirit - [facility] blood pressure 2021-08-02 10:00:00 140 mm[Hg] Common Spirit - systolic [facility] blood pressure 2021-08-02 10:00:00 62 mm[Hg] Common Spirit - diastolic [facility] Systolic blood 2021-07-04 00:50:00 180 mm[Hg] [facility]iver [facility] Diastolic blood 2021-07-04 00:50:00 110 mm[Hg] Unive rsity [facility] Heart rate 2021-07-04 00:50:00 79 /min [facility] Body temperature 2021-07-04 00:50:00 36.67 Gem [facility] Respiratory rate 2021-07-04 00:50:00 18 /min [facility] Body weight 2021-07-04 00:50:00 121.564 kg [facility] Oxygen saturation in 2021-07-04 00:50:00 99 /min [facility] blood by [facility] Pulse oximetry Branch BP Systolic 2022-01-21 14:32:00 BP Diastolic 2022-01-21 14:32:00 Weight Measured 2022-01-21 14:32:00 276.00 pounds Height Measured 2022-01-21 14:32:00 63.00 inches Body Temperature 2022-01-21 14:32:00 Heart Rate 2022-01-21 14:32:00 Respiratory Rate 2022-01-21 14:32:00 Procedures Procedure Date / Time Performed Performing Clinician Sour e REFERRAL- 2023-02-02 05:01:00 Doctor Unassigned, No [facility]ONSE Name [facility] XR CHEST 1 VW 2021-07-04 01:14:37 Raissa Tran [facility] NOTICE OF PRIVACY 2021-07-04 00:45:31 Doctor Unassigned, [facility] CONSENT/REFUSAL FOR 2021-07-04 00:45:10 Doctor Unassigned, [facility] AND Name Medical Branch TREATMENT Plan of Care Planned Activity Planned Date Details Comments Source Goal Plan of Care Note [code = 45826-1] Goal Plan of Care Note [code = 60689-9] Goal Plan of Care Note [code = 33539-3] Goal Plan of Care Note [code = 59919-9] Goal Plan of Care Note [code = 08429-1] Goal Plan of Care Note [code = 21891-7] Goal Plan of Care Note [code = 48873-2] Goal Plan of Care Note [code = 37547-3] Goal Plan of Care Note [code = 00474-9] Goal Plan of Care Note [code = 94036-4] Goal Plan of Care Note [code = 51588-1] Goal Plan of Care Note [code = 50114-4] Goal Plan of Care Note [code = 76400-1] Goal Plan of Care Note [code = 72615-7] Goal Plan of Care Note [code = 29134-5] Goal Plan of Care Note [code = 66039-8] Encounters Start End Encounter Admission Attending Care Care Encounter Source Date/Time Date/Time Type Type Clinicians Facility Department ID 2023-02-24 Outpatient Chung, STLMLC STLMLC [id number] Common 14:59:[address] [facility] 2023-01-23 Outpatient Chung, STLMLC STLMLC [id number] Common 09:09:[address] [facility] 2022-12-29 Outpatient Chung, STLMLC STLMLC [id number] Common 15:24:[address] [facility] 2022-12-21 Outpatient Layla, STLMLC STLMLC [id number] Common 09:47:[address] [facility] 2022-06-01 Outpatient Lopez, Na STLMLC STLMLC [id number] 2 Common 09:18:00 [facility] 2022-04-13 Outpatient Jessica, Na STLMLC STLMLC [id number] 2 Common 15:29:00 [facility] 2022-04-07 Outpatient Lopez, Na STLMLC STLMLC [id number] 2 Common 16:07:[id number] [facility] 2022-01-04 Outpatient Lopez, Na STLMLC STLMLC [id number] 2 Common 09:31:01 [facility] 2021-10-20 Outpatient Lopez, Na STLMLC STLMLC [id number] 2 Common 14:09:[id number] [facility] 2021-10-20 Outpatient Lopez, Na STLMLC STLMLC [id number] 2 Common 13:47:[address] [facility] 2021-10-20 Outpatient Lopez, Na STLMLC STLMLC [id number] 2 Common 12:29:[address] [facility] 2021-10-20 Outpatient Lopez, Na STLMLC STLMLC [id number] 2 Common 12:03:[address] [facility] 2021-10-20 Outpatient Lopez, Na STLMLC STLMLC [id number] 2 Common 12:03:[address] [facility] 2021-10-20 Outpatient Lopez, Na STLMLC STLMLC [id number] 2 Common 11:43:[address] [facility] 2021-10-20 Outpatient Lopez, Na STLMLC STLMLC [id number] 2 Common 11:35:[address] [facility] 2021-10-20 Outpatient Lopez, Na STLMLC STLMLC [id number] 2 Common 11:18:[address] [facility] 2021-10-20 Outpatient Lopez, Na STLMLC STLMLC [id number] 2 Common 11:04:[address] [facility] 2021-10-20 Outpatient Lopez, Na STLMLC STLMLC [id number] 2 Common 11:04:[id number] [facility] 2023-02-02 2023-02-02 Orders Doctor TAM [id number] Univers 00:00:00 00:00:00 Only Unassigned, VTIALY [id number] ity of [facility] [id number] Herman as [id number] [place] [address] [place] 2022-08-31 2022-08-31 OFFICE STLMLC STLMLC [id number] Co mmon 00:00:00 00:00:00 VISIT EST Spir it PT LEVEL 3 - [facility] 2022-08-30 2022-08-30 (TEL) STLMLC STLMLC [id number] Co mmon 00:00:00 00:00:00 [facility] 2022-08-29 2022-08-29 Outpatient SFA SFA [id number] Stef 15:26:21 15:26:21 1205 F Mohinder 2022-08-29 2022-08-29 Outpatient [id number] 00:00:00 00:00:00 Visit [id number] 2022-08-10 2022-08-10 (TEL) STLMLC STLMLC [id number] Co mmon 00:00:00 00:00:00 [facility] 2022-08-10 2022-08-10 (TEL) STLMLC STLMLC [id number] Co mmon 00:00:00 00:00:00 [facility] 2022-08-10 2022-08-10 (TEL) STLMLC STLMLC [id number] Co mmon 00:00:00 00:00:00 [facility] 2022-08-10 2022-08-10 OFFICE STLMLC STLMLC [id number] Co mmon 00:00:00 00:00:00 VISIT EST Spir it PT LEVEL 3 - [facility] 2022-07-20 2022-07-20 (TEL) STLMLC STLMLC [id number] Co mmon 00:00:00 00:00:00 [facility] 2022-06-29 2022-06-29 (TEL) STLMLC STLMLC [id number] Co mmon 00:00:00 00:00:00 [facility] 2022-06-22 2022-06-22 OFFICE STLMLC STLMLC [id number] Co mmon 00:00:00 00:00:00 VISIT EST Spir it PT LEVEL 3 [facility] 2022-06-20 2022-06-20 (TEL) STLMLC STLMLC [id number] Co mmon 00:00:00 00:00:00 [facility] 2022-06-03 2022-06-03 OFFICE STLMLC STLMLC [id number] Co mmon 00:00:00 00:00:00 VISIT EST Spir it PT LEVEL 3 [facility] 2022-05-16 2022-05-16 (TEL) STLMLC STLMLC [id number] Co mmon 00:00:00 00:00:00 [facility] 2022-05-16 2022-05-16 OFFICE STLMLC STLMLC [id number] Co mmon 00:00:00 00:00:00 VISIT EST Spir it PT LEVEL 3 [facility] 2022-04-27 2022-04-27 (TEL) STLMLC STLMLC [id number] Co mmon 00:00:00 00:00:00 [facility] 2022-04-26 2022-04-26 (TEL) STLMLC STLMLC [id number] Co mmon 00:00:00 00:00:00 [facility] 2022-04-26 2022-04-26 OFFICE STLMLC STLMLC [id number] Co mmon 00:00:00 00:00:00 VISIT EST Spir it PT LEVEL 3 [facility] 2022-04-20 2022-04-20 Outpatient [id number] 00:00:00 00:00:00 Visit [id number] 2022-03-30 2022-03-30 OFFICE STLMLC STLMLC [id number] Co mmon 00:00:00 00:00:00 VISIT [facility] PT - CHI LEVEL 4 [facility] 2022-02-14 2022-02-14 (TEL) STLMLC STLMLC [id number] Co mmon 00:00:00 00:00:00 [facility] 2022-01-27 2022-01-27 OFFICE STLMLC STLMLC [id number] Co mmon 00:00:00 00:00:00 VISIT EST Spir it PT LEVEL 3 - [facility] 2022-01-26 2022-01-26 (TEL) STLMLC STLMLC [id number] Co mmon 00:00:00 00:00:00 [facility] 2022-01-18 2022-01-18 (TEL) STLMLC STLMLC [id number] Co mmon 00:00:00 00:00:00 [facility] 2022-01-05 2022-01-05 OFFICE STLMLC STLMLC [id number] Co mmon 00:00:00 00:00:00 VISIT NEW Spir it PT LEVEL 3 - CH[facility] 2021-12-28 2021-12-28 OFFICE STLMLC STLMLC [id number] Co mmon 00:00:00 00:00:00 VISIT [facility] ESTAB PT - CHI LEVEL 4 [facility] 2021-11-15 2021-11-15 (TEL) STLMLC STLMLC [id number] Co mmon 00:00:00 00:00:00 [facility] 2021-11-11 2021-11-11 (TEL) STLMLC STLMLC [id number] Co mmon 00:00:00 00:00:00 Spirit [facility] 2021-09-28 2021-09-28 OFFICE STLMLC STLMLC [id number] Co mmon 00:00:00 00:00:00 VISIT Spirit ESTAB PT - CHI LEVEL 4 [facility] 2021-08-27 2021-08-27 (TEL) STLMLC STLMLC [id number] Co mmon 00:00:00 00:00:00 [facility] 2021-08-04 2021-08-04 (TEL) STLMLC STLMLC [id number] Co mmon 00:00:00 00:00:00 [facility] 2021-08-02 2021-08-02 OFFICE STLMLC STLMLC [id number] Co mmon 00:00:00 00:00:00 VISIT [facility] LEVEL 4 [facility] 2021-07-22 2021-07-22 Outpatient Vanesa Cheung HCAPM RADI LA0 [id number] [facility] 08:00:00 08:00:00 63 [facility] 2021-07-03 2021-07-03 Emergency Marc, [facility] [id number] Univers 19:47:00 21:16:00 [facility]er[id number] [facility] [id number] [address] 2021-07-03 2021-07-03 Emergency X [facility] ERT [id number] Univers 19:47:00 19:47:[address] [facility] 2021-06-07 2021-06-07 Outpatient STLMLC STLMLC [id number] Common 00:00:00 00:00:00 [facility] 2021-05-06 2021-05-06 Outpatient [facility] ST[facility] [id number] Common 00:00:00 00:00:00 [facility] 2021-04-28 2021-04-28 Outpatient [facility]C STL[facility]C [id number] Common 00:00:00 00:00:00 [facility] 2021-04-27 2021-04-27 Outpatient [facility] ST[facility] [id number] Common 00:00:00 00:00:00 [facility] 2021-03-15 2021-03-15 Outpatient [facility] ST[facility]C [id number] Common 00:00:00 00:00:00 [facility] 2021-01-04 2021-01-04 Outpatient [facility]LMLC STL[facility]C [id number] Common 00:00:00 00:00:00 [facility] 2020-11-03 2020-11-03 Outpatient [facility]LMLC STL[facility]C [id number] Common 00:00:00 00:00:00 [facility] 2020-08-03 2020-08-03 Outpatient [facility]LMLC STLMLC [id number] Common 00:00:00 00:00:00 [facility] 2020-05-04 2020-05-04 [facility] [id number] Common 10:10:00 10:10:[address] [facility] 2020-05-01 2020-05-01 [facility] [id number] Common 09:40:00 09:40:[address] [facility] 2020-02-19 2020-02-19 [facility] [id number] Common 16:06:00 16:06:[address] [facility] [address] [facility] 2019-12-12 2019-12-12 [facility] [id number] Common 15:41:00 15:41:[address] [facility] 2019-09-16 2019-09-16 [facility] [id number] Common 14:40:00 14:40:[address] [facility] 2019-08-15 2019-08-15 [facility] [id number] Common 09:27:00 09:27:[address] [facility] 2019-08-12 2019-08-12 [facility] [id number] Common 09:00:00 09:00:[address] [facility] 2019-07-31 2019-07-31 [facility] [id number] Common 11:46:00 11:46:[address] [facility] 2019-07-29 2019-07-29 [facility] [id number] Common 09:40:00 09:40:[address] [facility] 2019-06-02 2019-06-02 [facility] [id number] Common 09:38:00 09:38:00 [facility] 2019-05-31 2019-05-31 Outpatient Dolores [facility] [id number] Common 11:30:00 11:30:00 [facility] 2018-01-19 2018-01-19 Outpatient Dolores [facility] [id number] Common 08:11:00 08:11:[address] [facility] 2018-01-18 2018-01-18 [facility] [id number] Common 10:15:00 10:15:[address] [facility] 2017-12-26 2017-12-26 Outpatient Dolores [facility] [id number] Common 09:30:00 09:30:[address] [facility] Results Test Description Test Time Test Comments Results Result Comments Source SARS-CoV-2 (COVID-19), RT-PCR/TMA 2021-12-10 07:26:55 Test Item Value Reference Range Interpretation Comme nts SARS-CoV-2 INTERPRETATION NEGATIVE SEE NOTE S ARS-CoV-2 RNA NOT (test code = 89558) DETECTED Negative results do not preclude SARS-C [...] ORDER CODE 3509. SOURCE (test code = 18763) NASOPHARYNGEAL Note: Methodology is Ro Charito Real-Time RT-PC R. The expected result or refer ence range is NEGATIVE (Not D etected). For more information reg arding COVID-19 testing to incl ude clinicalinforma tion, methodology detail, intende d use, FDA authorization a ndrecommended fact sheets for carlos ents or healthcare providers, see [facility] Announcement: S ARS-CoV-2 (COVID-19) by N AAT at URL below (note,fact shee ts are provided by method given in report:https:// www.[employer]/cl inicians/client -communications/ Alternatively, see downloadable PDF fact sheet at:https://www. [employer]/COVID- 19-RT-PCR UNLES S OTHERWISE INDICATED, ALL TESTING PERFORMED ATCLINICAL PATH [facility] [place] [address] [address] DRYING KILN: PRUDENCE SOLIS M.D. CLIA NUMBER [id number] CAP ACCREDITATION N O. [id number] SARS-CoV-2 (COVID-19) by RT-PCR (HIGH RISK)2021-12-10 00:00:00 Test Item Value Reference Range Interpretation Comments SARS-CoV-2 INTERPRETATION NEGATIVE (test code = 40363) SOURCE (test code = 70278) NASOPHARYNGEAL SARS-CoV-2 (COVID-19) by RT-PCR (HIGH RISK)2021-12-10 00:00:00 Test Item Value Reference Range Interpretation Comments SARS-CoV-2 INTERPRETATION NEGATIVE (test code = 86652) SOURCE (test code = 36399) NASOPHARYNGEAL SARS-CoV-2 (COVID-19) by RT-PCR (HIGH RISK)2021-12-10 00:00:00 Test Item Value Reference Range Interpretation Comments SARS-CoV-2 INTERPRETATION NEGATIVE (test code = 28825) SOURCE (test code = 71953) NASOPHARYNGEAL Lipid Panel w/ Chol/HDL [id number] 00:00:00 Test Item Value Reference Range Interpretation Comments Cholesterol, Total (test code = 2093-3) 186 100-199 Triglycerides (test code = 2571-8) 86 0-149 HDL Cholesterol (test code = 2085-9) 59 >39 T. Chol/HDL Ratio (test code = 9830-1) 3.2 0.0-4.4 JOSÉ w/Reflex if [id number] 00:00:00 Test Item Value Reference Range Interpretation Comments JOSÉ Direct (test code = 8061-4) Negative Negative Comp. Metabolic Panel (14) ([facility])2021-08-02 00:00:00 Test Item Value Reference Range Interpretation Comments Glucose (test code = 2345-7) 75 65-99 BUN (test code = 3094-0) 10 6-24 Creatinine (test code = 2160-0) 0.74 0.57-1.00 eGFR If NonAfricn Am (test code = 97 >59 85927-7) eGFR If Africn Am (test code = 46315-2) 112 >59 BUN/Creatinine Ratio (test code = 14 06-17 3097-3) Sodium (test code = 2951-2) 141 134-144 Potassium (test code = 2823-3) 3.7 3.5-5.2 Chloride (test code = 2075-0) 102 96-106 Carbon Dioxide, Total (test code = -2027-) Calcium (test code = 78377-9) 9.6 8.7-10.2 Protein, Total (test code = 2885-2) 8.8 6.0-8.5 Albumin (test code = 1751-7) 4.6 3.8-4.8 Globulin, Total (test code = 31288-8) 4.2 1.5-4.5 A/G Ratio (test code = 1759-0) 1.1 1.2-2.2 Bilirubin, Total (test code = 1974-2) 0.6 0.0-1.2 Alkaline Phosphatase (test code = 76 44-121 6768-6) AST (SGOT) (test code = 1920-8) 20 0-40 ALT (SGPT) (test code = 1742-6) 19 0-32 CBC With Differential/[id number] 00:00:00 Test Item Value Reference Range Interpretation [...] Granulocytes (test code = 0 Not Estab. 99902-0) Immature Grans (Abs) (test code = 0.0 0.0-0.1 29913-1) NRBC (test code = 07452-4) Hematology Comments: (test code = 20032-4) Rheumatoid Arthritis [id number] 00:00:00 Test Item Value Reference Range Interpretation Comments Rheumatoid Factor (RF) (test code = <10.0 0.0-13.9 23757-5) C-Reactive Protein, Quant (CRP)2021-08-02 00:00:00 Test Item Value Reference Range Interpretation Comments C-Reactive Protein, Quant (test code = 13 0-10 1988-5) Vitamin D, 73-Vouhaza9866-35-08 00:00:00 Test Item Value Reference Range Interpretation Comments Vitamin D, 25-Hydroxy (test code = 24.0 30.0-100.0 1988-) - CT ABD PELVIS [id number] 09:50:00 [facility] 1975 Sex: F Name: SHE GUARDADO [facility] : 1975 Age/S: 46 / F [address] Unit #: [id number] Loc: [place] [address] Phys: Vanesa Nunez MD Acct: [id number] Dis Date: Status: REG CLI PHONE #: [phone] Exam Date: 07/22/2021917 FAX #: Reason: CROHNS DISEASE, UNSPECIFIED, WITHOUT COMPLICATI E XAMS: CPT: [id number] CT ABD PELVIS W/CONT 15602 HISTORY: CROHN'S DISEASE, UNSPECIFIED, WITHOUT COMPLICATIONS TECHNIQUE: [...] GUARDADO : 1975 Age/S: 46 / F [address] Unit #: [id number] Loc: [place] [address] Phys: Vanesa Nunez MD Acct: [id number] Dis Date: Status: REG CLI PHONE #: [phone] Exam Date: 07/22/2021917 FAX #: Reason: CROHNS DISEASE, UNSPECIFIED, WITHOUT COMPLICATI EXAMS: CPT: [id number] CT ABD PELVIS W/CONT 76289 (Continued) IMPRESSION: 1. There is mild diffuse [...] RT(R) CTDI: DLP: Trnscb Date/Time: 07/22/2021 (0950) Ceferino.NB16 Orig Print D/T: S: 07/22/2021 (5353) PAGE 2 Signed [id number] 08:27:00 Test Item Value Reference Range Interpretation Comments ISTAT-BUN (test code = BUNP) 8 mg/dL 8-26 N BEDSIDE [id number] 08:27:00 Test Item Value Reference Range Interpretation Comments BEDSIDE CREATININE (test code = 0.6 mg/dL 0.6-1.3 N CREATBED) SARS-COV-2 (COVID19), NAAT [ADDED]2020-10-02 00:00:00 Test Item Value Reference Range Interpretation Comments SARS-CoV-2 INTERPRETATION (test NEGATIVE code = 18413) SOURCE (test code = 25203) NOT SPECIFIED SARS-COV-2 (COVID19), NAAT [ADDED]2020-10-02 00:00:00 Test Item Value Reference Range Interpretation Comments SARS-CoV-2 INTERPRETATION (test NEGATIVE code = 96725) SOURCE (test code = 66498) NOT SPECIFIED SARS-COV-2 (COVID19), NAAT [ADDED]2020-10-02 00:00:00 Test Item Value Reference Range Interpretation Comments SARS-CoV-2 INTERPRETATION (test NEGATIVE code = 46549) SOURCE (test code = 48952) NOT SPECIFIED SARS-CoV-2 (COVID-19) by RT-PCR (HIGH RISK)2020-04-17 00:00:00 Test Item Value Reference Range Interpretation Comments SARS-CoV-2 INTERPRETATION (test NEGATIVE code = 62352) SOURCE (test code = 94619) NOT SPECIFIED SARS-CoV-2 (COVID-19) by RT-PCR (HIGH RISK)2020-04-17 00:00:00 Test Item Value Reference Range Interpretation Comments SARS-CoV-2 INTERPRETATION (test NEGATIVE code = 64326) SOURCE (test code = 08588) NOT SPECIFIED SARS-CoV-2 (COVID-19) by RT-PCR (HIGH RISK)2020-04-17 00:00:00 Test Item Value Reference Range Interpretation Comments SARS-CoV-2 INTERPRETATION (test NEGATIVE code = 81334) SOURCE (test code = 21629) NOT SPECIFIED POC, COVID 19 Antigen + Flu by SofiaPOC, COVID 19 Antigen + Flu by Jennifer
[2023-03-11] MEDS ORDERED: METOCLOPRAMIDE 10 MG/2mL INJ ONE (23:21)
[2023-03-12 00:03] LABS: Absolute Lymphocytes (CBC) 3.1 K/uL (0.7-4.9); Hematocrit 37.5 % (36.0-45.0); Lymphocytes % 31.9 % (15.3-44.8); MPV 8.1 fL (7.6-11.3); RBC Red Blood Cell Count 4.74 M/uL (3.86-4.86)
[2023-03-12 00:07] LABS: Protime INR 1.27
[2023-03-12 00:26] LABS: Albumin 3.5 g/dL (3.4-5.0); Bilirubin Direct 0.1 mg/dL (0-0.2); Bilirubin Indirect, Calculated 0.6 mg/dL (0.2-0.8); Bilirubin Total 0.7 mg/dL (0.2-1.0); Potassium 3.6 mEq/L (3.5-5.1); Protein, Total 9.1 g/dL (6.4-8.2); Troponin High Sensitivity 4.3 pg/mL (<58.9)
--- NOTE | 2023-03-12 03:07 | EDPHYS ---
Physician Documentation [facility] Name: Dori Guardado Age: 48 yrs Sex: Female : 1975 Arrival Date: 03/11/2023 Time: 22:14 Bed 15 Private MD: ED Physician Jose Luis Parikh HPI: 03/11 22:20 This 48 yrs old Black Female presents to ER via Unassigned with complaints of Numbness sp4 Of Arm, Arm Swelling, Sore Throat. 03/12 02:37 48-year-old female with extensive past medical history presents with cute onset of sp4 dysphagia feeling of food gets stuck in her esophagus starting yesterday.. 02:38 Patient reported associated right pain in the right arm associated tingling in the sp4 right arm associated sore throat.. Patient has extensive past medical history and is following up with her parent educator.. Historical: - Allergies: 03/11 22:27 No Known Allergies; as6 - PMHx: 22:27 Atrial Fib; bowel obstruction; Crohn's; Hypertension; as6 - PSHx: 22:27 Appendectomy; section; Cholecystectomy; partial hysterectomy; as6 - Immunization history:: Client reports having NOT received the Covid vaccine. - Social history:: Smoking status: Patient denies any tobacco usage or history of. - Family history:: not pertinent. ROS: 03/12 02:38 Constitutional: Negative for fever, chills, and weight loss, Eyes: Negative for injury, sp4 pain, redness, and discharge, ENT: Negative for injury, and discharge, positive throat discomfort Neck: Negative for injury, pain, and swelling, Cardiovascular: Negative for chest pain, palpitations, and edema, Respiratory: Negative for shortness of breath, cough, wheezing, and pleuritic chest pain, Abdomen/GI: Negative for abdominal pain, nausea, vomiting, diarrhea, and constipation, positive reported feeling of dysphagia Back: Negative for injury and pain, : Negative for injury, bleeding, discharge, and swelling, MS/Extremity: Negative for injury and deformity, positive for right arm pain Skin: Negative for injury, rash, and discoloration, Neuro: Negative for headache, weakness, numbness, tingling, and seizure, Psych: Negative for depression, anxiety, Allergy/Immunology: Negative for hives, rash, and allergies Endocrine: Negative for neck swelling, polydipsia, polyuria, polyphagia, and weight changes Hematologic/Lymphatic: Negative for swollen nodes, abnormal bleeding, and unusual bruising Exam: 02:38 Constitutional: This is a well developed, well nourished patient who is awake, alert, sp4 and in no acute distress. Head/Face: Normocephalic, atraumatic. Eyes: Pupils equal round and reactive to light, extra-ocular motions intact. Lids and lashes normal. Conjunctiva and sclera are not injected. Cornea within normal limits. Periorbital areas with no swelling, redness, or edema. ENT: Nares patent. No nasal discharge, no septal abnormalities noted. Tympanic membranes are normal and external auditory canals are clear. Oropharynx with no redness, swelling, or masses, exudates, or evidence of obstruction, uvula midline. Mucous membranes moist. Neck: Trachea midline, no thyromegaly or masses palpated, and no cervical lymphadenopathy. Supple, full range of motion without nuchal rigidity, or vertebral point tenderness. Chest/axilla: Normal chest wall appearance and motion. Nontender with no deformity. No lesions are appreciated. Cardiovascular: Regular rate and rhythm with a normal S1 and S2. No gallops, murmurs, or rubs. Normal PMI, no JVD. No pulse deficits. Respiratory: Lungs have equal breath sounds bilaterally, clear to auscultation and percussion. No rales, rhonchi or wheezes noted. No increased work of breathing, no retractions or nasal flaring. Abdomen/GI: Soft, non-tender, with normal bowel sounds. No distension or tympany. No guarding or rebound. No evidence of tenderness throughout. Back: No spinal tenderness. No costovertebral tenderness. Skin: Warm, dry with normal turgor. Normal color with no rashes, no lesions, and no evidence of cellulitis. MS/ Extremity: Pulses equal, no cyanosis. Neurovascular intact. Full, normal range of motion. Neuro: Awake and alert, GCS 15, oriented to person, place, time, and situation. Cranial nerves II-XII grossly intact. Motor strength 5/5 in all extremities. Sensory grossly intact. Psych: Awake, alert, with orientation to person, place and time. Behavior, mood, and affect are within normal limits 03:04 ECG was reviewed by the Attending Physician. There is normal sinus rhythm at the rate sp4 of 63, EKG time 0029. There is no ST elevation or depression. No ectopy Vital Signs: 03/11 22:26 BP 154 / 98; Pulse 74; Resp 18 S; Temp 98.1(TE); Pulse Ox 99% on R/A; Weight 127.01 kg as6 (R); Height 5 ft. 3 in. (R); Pain 8/10; 03/12 00:33 BP 119 / 81; Pulse 66; Resp 16; Pulse Ox 99% on R/A; aa9 00:45 BP 113 / 80; Pulse 64; Resp 18; Pulse Ox 100% on R/A; aa9 01:47 BP 118 / 75; Pulse 68; Resp 17; Pulse Ox 99% on R/A; aa9 03:23 BP 121 / 85; Pulse 62; Resp 16; Temp 98.5; Pulse Ox 97% on R/A; aa9 03/11 22:26 Body Mass Index 49.60 (127.01 kg, 160.02 cm) as6 03/11 22:26 Pain Scale: Adult as6 MDM: 03/11 22:37 Patient medically screened. sp4 03/12 03:04 Differential diagnosis: Acute dysphagia, odynophagia, esophagitis. Data reviewed: vital sp4 signs, nurses notes, lab test result(s), cardiac enzymes, CBC, electrolytes, hepatic panel, EKG, radiologic studies, CT scan. Consideration of Admission/Observation Escalation of care including admission/observation considered. ED course: CT today reveals no esophageal foreign body and is otherwise normal. EKG normal labs are unremarkable. Patient stable for discharge home with follow-up with her gastroenterology. 03/11 22:49 Order name: Basic Metabolic Panel; Complete Time: 02:31 sp4 03/11 22:49 Order name: CBC with Diff sp4 03/11 22:49 Order name: LFT's; Complete Time: 02:31 sp4 03/11 22:49 Order name: NT PRO-BNP; Complete Time: 02:31 sp4 03/11 22:49 Order name: PT-INR; Complete Time: 02:31 sp4 03/11 22:49 Order name: Troponin HS; Complete Time: 02: sp4 03/11 22:50 Order name: CT Chest Wo Con sp4 03/11 22:49 Order name: EKG; Complete Time: 22:51 sp4 03/11 22:49 Order name: Cardiac monitoring; Complete Time: 00:33 sp4 03/11 22:49 Order name: EKG - Nurse/Tech; Complete Time: 00:33 sp4 03/11 22:49 Order name: IV Saline Lock; Complete Time: 23:59 sp4 03/11 22:49 Order name: Labs collected and sent; Complete Time: 23:59 sp4 03/11 22:49 Order name: O2 Per Protocol; Complete Time: 00:33 sp4 03/11 22:49 Order name: O2 Sat Monitoring; Complete Time: 00:12 sp4 EC:04 Rate is 63 beats/min. Rhythm is regular, Normal Sinus Rhythm. QRS Mondamin is Normal. [place] sp4 interval is normal. QRS interval is normal. QT interval is normal. T waves are Normal. No ST changes noted. Clinical impression: Normal ECG. Interpreted by me. Administered Medications: 03/11 23:59 Drug: metoCLOPramide IVP 10 mg Route: IVP; Site: right forearm; as6 03/12 03:22 Follow up: Response: No adverse reaction aa9 Disposition Summary: 03/12/23 03:07 Discharge Ordered Location: Home sp4 Problem: new sp4 Symptoms: have improved sp4 Condition: Stable sp4 Diagnosis - Right arm pain, nausea, sensation of foreign body in the throat. sp4 Followup: sp4 - With: Private Physician - When: 7 - 10 days - Reason: Recheck today's complaints Discharge Instructions: - Discharge Summary Sheet sp4 - Dysphagia Eating Plan, Pureed sp4 Prescriptions: - Reglan 10 mg Oral Tablet - take 1 tablet by ORAL route every 6 hours take 30 minutes before meals; 60 sp4 tablet; Refills: 0, Product Selection Permitted Signatures: Dispatcher [employer] Moy Petty RN RN as6 Jose Luis Parikh MD MD sp4 Keiko Bell RN aa9
--- NOTE | 2023-03-12 03:07 | ER ---
Nurse's Notes [facility] Name: Dori Guardado Age: 48 yrs Sex: Female : 1975 Arrival Date: 03/11/2023 Time: 22:14 Bed 15 Private MD: Diagnosis: Right arm pain, nausea, sensation of foreign body in the throat. Presentation: 03/11 22:26 Chief complaint: Patient states: "I am having pain on the right side on my face and my as6 right arm". Coronavirus screen: At this time, the client does not indicate any symptoms associated with coronavirus-19. Ebola Screen: No symptoms or risks identified at this time. Initial Sepsis Screen: Does the patient meet any 2 criteria? No. Patient's initial sepsis screen is negative. Does the patient have a suspected source of infection? No. Patient's initial sepsis screen is negative. Risk Assessment: Do you want to hurt yourself or someone else? Patient reports no desire to harm self or others. Onset of symptoms was March 11, 2023. 22:26 Method Of Arrival: Ambulatory as6 22:26 Acuity: KASH 3 as6 Triage Assessment: 03/12 03:23 General: Appears in no apparent distress. comfortable, Behavior is calm, cooperative. aa9 EENT: No deficits noted. Historical: - Allergies: 03/11 22:27 No Known Allergies; as6 - PMHx: 22:27 Atrial Fib; bowel obstruction; Crohn's; Hypertension; as6 - PSHx: 22:27 Appendectomy; section; Cholecystectomy; partial hysterectomy; as6 - Immunization history:: Client reports having NOT received the Covid vaccine. - Social history:: Smoking status: Patient denies any tobacco usage or history of. - Family history:: not pertinent. Screenin/18 00:35 Abuse screen: Denies threats or abuse. Denies injuries from another. Nutritional aa9 screening: No deficits noted. Tuberculosis screening: No symptoms or risk factors identified. 03:23 [facility] ED Fall Risk Assessment (Adult) History of falling in the last 3 months, aa9 including since admission No falls in past 3 months (0 pts) Confusion or Disorientation No (0 pts) Intoxicated or Sedated No (0 pts) Impaired Gait No (0 pts) Mobility Assist Device Used No (0 pt) Altered Elimination No (0 pt) Score/Fall Risk Level 0 - 2 = Low Risk Oriented to surroundings, Maintained a safe environment, Educated pt \\T\\ family on fall prevention, incl call for assistance when getting out of bed. Assessment: 00:00 General: Appears in no apparent distress. comfortable, Behavior is calm, cooperative. aa9 Pain: Complains of pain in diaphragm Pain radiates to R shoulder. Respiratory: Airway is patent Respiratory effort is even, unlabored. GI: Abdomen is obese. 00:35 Reassessment: Patient appears in no apparent distress at this time. Patient and/or aa9 family updated on plan of care and expected duration. Pain level reassessed. Patient is alert, oriented x 3, equal unlabored respirations, skin warm/dry/pink. Patient states symptoms have improved. 02:33 Reassessment: Patient appears in no apparent distress at this time. Patient and/or aa9 family updated on plan of care and expected duration. Pain level reassessed. Patient is alert, oriented x 3, equal unlabored respirations, skin warm/dry/pink. 03:22 Neuro: Level of Consciousness is awake, alert, obeys commands, Oriented to person, aa9 place, time, situation, Adjunct Lecturer are equal bilaterally Speech is normal. Respiratory: Breath sounds are clear. 03:23 EENT: Throat is clear. aa9 03:23 Reassessment: Patient appears in no apparent distress at this time. Patient and/or aa9 family updated on plan of care and expected duration. Pain level reassessed. Patient is alert, oriented x 3, equal unlabored respirations, skin warm/dry/pink. Patient states symptoms have improved. Vital Signs: 03/11 22:26 BP 154 / 98; Pulse 74; Resp 18 S; Temp 98.1(TE); Pulse Ox 99% on R/A; Weight 127.01 kg as6 (R); Height 5 ft. 3 in. (R); Pain 8/10; 03/12 00:33 BP 119 / 81; Pulse 66; Resp 16; Pulse Ox 99% on R/A; aa9 00:45 BP 113 / 80; Pulse 64; Resp 18; Pulse Ox 100% on R/A; aa9 01:47 BP 118 / 75; Pulse 68; Resp 17; Pulse Ox 99% on R/A; aa9 03:23 BP 121 / 85; Pulse 62; Resp 16; Temp 98.5; Pulse Ox 97% on R/A; aa9 03/11 22:26 Body Mass Index 49.60 (127.01 kg, 160.02 cm) as6 03/11 22:26 Pain Scale: Adult as6 ED Course: 03/11 22:16 Patient arrived in ED. ja2 22:19 Jose Luis Parikh MD is Attending Physician. sp4 22:27 Triage completed. as6 22:28 Arm band placed on. as6 23:00 Patient has correct armband on for positive identification. Placed in gown. Call light aa9 in reach. Side rails up X2. 23:10 Keiko Bell, RN is Primary Nurse. aa9 23:22 Missed attempt(s): 20 gauge in right antecubital area. Bleeding controlled, band aid aa9 applied, catheter tip intact. 23:58 Inserted saline lock: 20 gauge in right forearm, using aseptic technique. Blood as6 collected. ultrasound guided, long catheter. 03/12 00:17 CT Chest Wo Con In Process Unspecified. EDMS 03:22 No provider procedures requiring assistance completed. IV discontinued, intact, aa9 bleeding controlled, No redness/swelling at site. Pressure dressing applied. Administered Medications: 03/11 23:59 Drug: metoCLOPramide IVP 10 mg Route: IVP; Site: right forearm; as6 03/12 03:22 Follow up: Response: No adverse reaction aa9 Medication: 03:23 VIS not applicable for this client. aa9 Outcome: 03:07 Discharge ordered by . sp4 03:22 Discharged to home ambulatory, with family. aa9 03:22 Condition: stable 03:22 Discharge instructions given to patient, Instructed on discharge instructions, follow up and referral plans. medication usage, Demonstrated understanding of instructions, follow-up care, medications, Prescriptions given X 1. 03:23 Patient left the ED. aa9 Signatures: Dispatcher [employer] EDMS Karan BaileeMoy Joseph RN RN as6 Keiko Bell, LEONA RN aa9 Jose Luis Parikh MD MD sp4
[2023-03-12 03:52] VITALS: BP 121/85; TEMP 98.5; O2SAT 97
--- NOTE | 2023-03-13 11:03 | RAD REPORT ---
EXAM DESCRIPTION: CT - Thorax Adolfo Nguyen - 03/12/2023 2:27 am CLINICAL HISTORY: The patient is 48 years old and is Female; CHEST PAIN TECHNIQUE: Axial computed tomography images of the chest without intravenous contrast. Sagittal an d coronal reformatted images were created and reviewed. This CT exam was performed using one or mor e of the following dose reduction techniques: automated exposure control, adjustment of the mA and/ or kV according to patient size, and/or use of iterative reconstruction technique. COMPARISON: CT February 20, 2022 FINDINGS: TRACHEA: Tracheobronchial tree is widely patent. LUNGS: A 0.4 cm left lower lobe pulmonary nodule is present. This is unchanged from prior exam. T he lungs are well-inflated and clear. There is no lobar consolidation or mass. PLEURAL SPACE: Unremarkable. No pneumothorax. No significant effusion. HEART: No cardiomegaly. No pericardial effusion. BONES/JOINTS: No acute fracture. SOFT TISSUES: The soft tissues are normal. VASCULATURE: Unremarkable. No thoracic aortic aneurysm. LYMPH NODES: Unremarkable. No enlarged lymph nodes. LIVER: The liver is mildly fatty and enlarged. GALLBLADDER AND BILE DUCTS: Surgical clips are present in the right upper quadrant, consistent wi th previous cholecystectomy. IMPRESSION: No acute findings on this noncontrasted CT of the chest to explain the patient's symptom s. Electronically signed by: Zhanna Acevedo MD 03/12/2023 1:42 AM CDT Due to temporary technical issues with the PACS/Fluency reporting system, reports are being signed by the in house radiologist without review as a courtesy to ensure prompt reporting. The interpreting r adiologist is fully responsible for the content of the report.
--- NOTE | 2023-03-13 17:51 | EKG ---
Test Date: 2023-03-12 Test Time: 00:29:53 Scarf Gluer: ALVERTO MEASUREMENT RESULTS: Intervals: Rate: 63 IA: 156 QRSD: 88 QT: 422 QTc: 431 [place]: P: 27 IA: 156 QRS: 12 T: 19 INTERPRETIVE STATEMENTS: Normal sinus rhythm Normal ECG Compared to ECG 01/17/2023 04:34:03 Ventricular premature complex(es) no longer present Electronically Signed On 03-13-23 17:49:48 CDT by Avery Holt
== END 2023-03-12 03:23 | disposition home or self-care (01) ==
LOC: ER 22:14
DX: M79.601 Pain in right arm (principal); R11.0 Nausea; R09.89 Other specified symptoms and signs involving the circulatory and respiratory systems; I10 Essential (primary) hypertension
CPT/HCPCS: 93005; 85025; 80048; 36415; 85610; 80076; 84484; 83880; 71250; 96374; 99284; J2765

== ENCOUNTER 2023-04-02 12:40 | Emergency (ER) | payer OTHER ==
--- OUTSIDE RECORDS SUMMARY | 2023-04-02 12:51 | XMS REPORT | Continuity of Care Document ---
:1975 Author Organization [facility] t Address [address] [facility] [address] [place] [address] Care Team Providers Name Role Phone Taylor Chung Primary Care Physician Taylor Chung Attending Clinician Unavailable Karol Rich Attending Clinician Unavailable Noemy Lopez Attending Clinician Unavailable LICO TREVIZO Attending Clinician Unavailable MAC LEWIS Attending Clinician Unavailable MAC LEWIS Attending Clinician Unavailable JUAN SPICER Attending Clinician Unavailable JUAN SPICER Attending Clinician Unavailable Lico Trevizo MD Attending Clinician Doctor Unassigned, Temperance Attending Clinician Unavailable Vanesa Nunez Attending Clinician Unavailable Raissa Tran DO Attending Clinician Noemy Lopez Admitting Clinician Unavailable Payers Payer Name Policy Type Policy Number Effective Date Expiration Date S paulinarudolph FORMERLY [facility] [id number] 2020 HEALTH CHOICE 00:00:00 [place] [address] [id number] 2020 Common Spiri t Health Choice 00:00:00 - [facility] [place] [id number] 2020 Common Spiri t Health Choice 00:00:00 - [facility] Medica l [place] [id number] 2020 Common Spiri t Health Choice 00:00:00 - [facility] Medica l Center Problems Condition Condition Condition Status Onset Resolution Last Treating Co mments Source Name Details Category Date Date Treatment Clinician Date No known No known Disease Unive rs active active ity of problems problems [facility] [id number] Microcytic Problem Co mmon anemia [facility] [id number] [place], [place] [id number] joint, [facility] knee, - [facility] right [facility] [id number] Sinusitis, Problem Com mon maxillary, [facility] chronic [facility] [id number] Recurrent Problem Com mon falls [facility] [id number] Balance Problem Commo n problem [facility] Morbid Obesity, Problem Common obesity morbid, Spirit BMI 50 or - CHI higher [facility] [id number] Crohn's Problem Commo n disease in [facility] remission [facility] [id number] Gastroesop Problem Co mmon hageal [facility] reflux - [facility], [facility] Medica l not Center specified Iron Iron Problem Common deficiency deficiency Sp jose anemia anemia, - CHI unspecifie [facility] iron [facility] deficiency Medica l anemia Center type [id number] Adult Problem Common general [facility] medical - [facility] exam [facility] [id number] Hematuria, Problem Com mon unspecifie Spirit d [facility] [id number] Multiple Problem Commo n joint pain [facility] [id number] Urinary Problem Common tract [facility] infection, - CHI site not [facility] [id number] BMI Problem Common 50.0-59.9, [facility] adult [facility] [id number] Vitamin D Problem Comm on deficiency [facility] [id number] Grieving Problem Comm on [facility] [id number] Seasonal Problem Comm on allergic Spirit rhinitis, - CHI unspecifie [facility] [id number] Abdominal Problem Com mon bloating [facility] - [facility] [id number] Crohn's Problem Common disease Spirit without - [facility] complicati [facility] unspecifie Medica l d Center gastrointe stinal tract location [id number] Seasonal Problem Commo n allergic Spirit rhinitis - CHI due to [facility] Mixed Depression Problem Commo n anxiety with Spirit and anxiety - CHI depressive [facility] High blood High blood Problem C ommon pressure pressure [facility] [id number] Other Problem Common chronic Spirit pain - [facility] [id number] Esophageal Problem Com mon stricture [facility] Allergies, Adverse Reactions, Alerts Allergy Allergy Status Severity Reaction(s) Onset Inactive Treating Comm ents Source Name Type Date Date Clinician No Known DA Active U 2020-09 [facility] 0[facility]28 [place] 00:[facility]: d 00 [facility] No Known DA Active U 2020-09 [facility] Allergie 0-28 [place] 00:[facility]: d 00 [facility] NO KNOWN Drug Active [facility] ALLERGIE Class ity of [facility] Social History Social Habit Start Date Stop Date Quantity Comments Source History of Common Spirit - Tobacco Use [facility] Sex Assigned At Common Sp jose - [facility] Tobacco use and 2023-03-20 2023-03-20 Smokeless tobacco Un iversity of exposure 00:00:00 00:00:00 non-user [facility] Smoking Status Start Date Stop Date Source Tobacco smoking consumption [facility] Never smoked tobacco [facility] Medications Ordered Filled Start Stop Current Ordering Indication Dosage Frequency Signature Comments Components Source Medication Medication Date Date Medication? Clinician (SIG) Name Name sotaloL 80 No 80mg Take 1 Univ ers mg tablet 03-29 tablet by ity of 14:59: 00:00 mouth in [place] 32 :00 the Medical morning Branch and 1 tablet in the evening. Pt takes 40 mg in the AM and 40 mg in PM apixaban 5 No 5mg Take 1 Univ ers mg tablet 03-29 0705 tablet by ity of 14:59: 00:00 mouth in [place] 32 :00 the Medical morning Branch and 1 tablet in the evening. sotaloL 80 2023-0 2023- No 80mg Take 1 Univ ers mg tablet 7- 07-05 tablet by ity of 14:59: 00:00 mouth in [place] 32 :00 the Medical morning Branch and 1 tablet in the evening. Pt takes 40 mg in the AM and 40 mg in PM apixaban 5 2022-0 2022- No 5mg Take 1 Univ ers mg tablet 7-05 07-05 tablet by ity of 14:59: 00:00 mouth in [place] 32 :00 the Medical morning Branch and 1 tablet in the evening. sotaloL 80 2022-0 Yes [id number] 80mg Take 1 Univers mg tablet 7-05 tablet by ity o f 00:00: mouth in [place] 00 the Medical morning Branch and 1 tablet in the evening. Pt takes 40 mg in the AM and 40 mg in PM apixaban 5 2022-0 Yes 1358 5mg Take 1 Unive rs mg tablet 7-05 tablet by ity o f 00:00: mouth in [place] 00 the [facility] morning Branch and 1 tablet in the evening. Indication s: atrial fibrillati on apixaban 5 2022-0 Yes 1358 5mg Take 1 Unive rs mg tablet 7-05 tablet by ity o f 00:00: mouth in [place] 00 the Medical morning Branch and 1 tablet in the evening. Indication s: atrial fibrillati on sotaloL 80 2022-0 Yes [id number] 40mg Take 0.5 Univers mg tablet 7-05 tablets by ity of 00:00: mouth in [place] 00 the [facility] morning Branch and 0.5 tablets in the evening. Pt takes 40 mg in the AM and 40 mg in PM sotaloL 80 2022-0 Yes [id number] 80mg Take 1 Univers mg tablet 7-05 tablet by ity o f 00:00: mouth in [place] [address] the [facility] morning Branch and 1 tablet in the evening. Pt takes 40 mg in the AM and 40 mg in PM apixaban 5 2022-0 Yes 1358 5mg Take 1 Unive rs mg tablet 7-05 tablet by ity o f 00:00: mouth in [place] 00 the [facility] morning Branch and 1 tablet in the evening. Indication s: atrial fibrillati on sotaloL 80 2022-0 2022- No [id number] 80mg Take 1 Univers mg tablet 7-05 07-05 tablet by ity of 00:00: 00:00 mouth in [place] 00 :00 the Medical morning Branch and 1 tablet in the evening. Pt takes 40 mg in the AM and 40 mg in PM vancomycin 2023-0 Yes 500mg Take 6 mL U nivers 500 mg/6 mL 6-26 by mouth ity of oral 15:30: in the [place] solution 35 morning Medical and 6 mL Branch at noon and 6 mL in the evening. metroNIDAZO 2023-0 Yes 500mg Take 1 Uni vers LE 500 mg 6-26 tablet by ity o f tablet 15:30: mouth [place] 35 every 12 Medical (twelve) Branch hours. adalimumab 2023-0 Yes inject Unive rs (HUMIRA,CF, 6-26 under the ity of PEN [place]) 15:30: skin. [place] [address] Medical Branch dicyclomine 2023-0 Yes 10mg Take 1 Univ ers 10 mg 6-26 capsule by ity of capsule 15:30: mouth as [place] 35 needed for Medical Abdominal Branch pain. vancomycin 2023-0 Yes 500mg Take 6 mL U nivers 500 mg/6 mL 6-26 by mouth ity of oral 15:30: in the [place] solution 35 morning Medical and 6 mL Branch at noon and 6 mL in the evening. metroNIDAZO 2023-0 Yes 500mg Take 1 Uni vers LE 500 mg 6-26 tablet by ity o f tablet 15:30: mouth [place] 35 every 12 Medical (twelve) Branch hours. adalimumab 2023-0 Yes inject Unive rs (HUMIRA,CF, 6-26 under the ity of [place]) 15:30: skin. [place] [address] Medical Branch dicyclomine 2023-0 Yes 10mg Take 1 Univ ers 10 mg 6-26 capsule by ity of capsule 15:30: mouth as [place] 35 needed for Medical Abdominal Branch pain. vancomycin 2023-0 Yes 500mg Take 6 mL U nivers 500 mg/6 mL 6-26 by mouth ity of oral 15:30: in the [place] solution 35 morning Medical and 6 mL Branch at noon and 6 mL in the evening. metroNIDAZO 2023-0 Yes 500mg Take 1 Uni vers LE 500 mg 6-26 tablet by ity o f tablet 15:30: mouth [place] 35 every 12 Medical (twelve) Branch hours. sotaloL 80 2023-0 Yes 80mg Take 1 Unive rs mg tablet 6-26 tablet by ity o f 15:30: mouth in [place] [address] the Medical morning Branch and 1 tablet in the evening. Pt takes 40 mg in the AM and 40 mg in PM apixaban 5 2023-0 Yes 5mg Take 1 Unive rs mg tablet 6-26 tablet by ity o f 15:30: mouth in [place] [address] the Medical morning Branch and 1 tablet in the evening. adalimumab 2023-0 Yes inject Unive rs (HUMIRA,CF, 6-26 under the ity of [place]EN [place]) 15:30: skin. [place] [address] Medical Branch dicyclomine 2023-0 Yes 10mg Take 1 Univ ers 10 mg 6-26 capsule by ity of capsule 15:30: mouth as [place] [address] needed for Medical Abdominal Branch pain. vancomycin 2023-0 Yes 500mg Take 6 mL U nivers 500 mg/6 mL 6-26 by mouth ity of oral 15:30: in the [place] [address] morning Medical and 6 mL Branch at noon and 6 mL in the evening. metroNIDAZO 2023-0 Yes 500mg Take 1 Uni vers LE 500 mg 6-26 tablet by ity o f tablet 15:30: mouth [place] [address] every 12 Medical (twelve) Branch hours. sotaloL 80 2023-0 Yes 80mg Take 1 Unive rs mg tablet 6-26 tablet by ity o f 15:30: mouth in [place] [address] the Medical morning Branch and 1 tablet in the evening. Pt takes 40 mg in the AM and 40 mg in PM apixaban 5 2023-0 Yes 5mg Take 1 Unive rs mg tablet 6-26 tablet by ity o f 15:30: mouth in [place] [address] the Medical morning Branch and 1 tablet in the evening. adalimumab 2023-0 Yes inject Unive rs (HUMIRA,CF, 6-26 under the ity of PEN [place]) 15:30: skin. [place] [address] Medical Branch dicyclomine 2023-0 Yes 10mg Take 1 Univ ers 10 mg 6-26 capsule by ity of capsule 15:30: mouth as [place] [address] needed for Medical Abdominal Branch pain. vancomycin 2023-0 Yes 500mg Take 6 mL U nivers 500 mg/6 mL 6-26 by mouth ity of oral 15:30: in the [place] [address] morning Medical and 6 mL Branch at noon and 6 mL in the evening. metroNIDAZO 2023-0 Yes 500mg Take 1 Uni vers LE 500 mg 6-26 tablet by ity o f tablet 15:30: mouth [place] 35 every 12 Medical (twelve) Branch hours. adalimumab Yes inject Unive rs (HUMIRA,CF, 6-26 under the ity of PEN [place]) 15:30: skin. [place] 35 Medical Branch dicyclomine Yes 10mg Take 1 Univ ers 10 mg 6-26 capsule by ity of capsule 15:30: mouth as [place] 35 needed for Medical Abdominal Branch pain. Kenalog 0.1 Kenalog 0.1 2021-09- No BID [...] 00:00 _food_o 00 :00 r_milk} HUMIRA PEN No KIT 06-06 CD/UC/HS 00:00: 00 IPRATROPIUM No SPR 0.06% 05-26 00:00: 00 Telmisartan Telmisartan 2021-0 No 1{table QD Telmisarta 20 MG 20 MG 8-22 t_at_be n 20 MG 00:00: dtime} 00 Telmisartan Telmisartan 2021-0 No 1{table QD Telmisarta 20 MG 20 MG 8-22 t_at_be n 20 MG 00:00: dtime} 00 Dose 2-0 No Unknown 8-12 00:00: 00 Dose 2022-0 No Unknown 8-11 00:00: 00 Dose 2022-0 No Unknown 8-01 00:00: 00 fluconazole 2-0 [...] 00:00: nded 00 release guaiFENesin guaiFENesin 2021-0 2022- No QID guaiFENesi -Codeine -Codeine 5-04 05-11 n-Codeine 100-10 100-10 00:00: 00:00 100-10 MG/5ML MG/5ML 00 :00 MG/5ML ProAir HFA 2021-0 No 2mcg/ac 90 01-21 [...] 01-21 00:00: 00 Dose 2022-0 No Unknown 01-21 00:00: 00 Dose 2022-0 No Unknown 01-21 00:00: 00 Dose 2-0 No Unknown 01-21 00:00: 00 Dose 2-0 No Unknown 01-21 00:00: 00 Dose 2-0 No Unknown 01-21 00:00: 00 Dose 2022-0 No Unknown 01-21 00:00: 00 Dose 2-0 [...] Dose 2022-0 No Unknown 4- 00:00: 00 Mobic 7.5 Mobic 7.5 2022-0 [...] Azithromyc n 250 MG n 250 MG 1-12 24- in 250 MG 00:00: 00:00 00 :00 No known 2020-1 No Univers medications 0-09 ity of 19:54: [address] metoprolol 1-0 No 1mg tartrate 50 [...] Sodium 8-10 Spirit 00:00: - CHI 00 [facility] Ergocalcife Ergocalcife 2018-09 2020- No Na Lopez 1 capsule Common rol rol 1-18 02-16 Spirit 00:00: 00:00 - CHI 00 :00 [facility] Paxil Paxil 2018-0 Yes Na Lopez 1 tablet Comm on 12-26 in the Spirit 00:00: morning - CHI 00 [facility] Albuterol Albuterol No 2{puffs Albuterol Sulfate HFA Sulfate HFA } Sulfate 108 (90 108 (90 HFA 108 Base) Base) (90 Base) MCG/ACT MCG/ACT MCG/ACT Ergocalcife Ergocalcife No 1{capsu Ergocalcif rol 28643 rol 64445 le} fortunato 55652 UNIT UNIT UNIT Gabapentin Gabapentin No 1{capsu [...] MG Ergocalcife Ergocalcife No 1{capsu Ergocalcif rol 02252 rol 23456 le} fortunato 89886 UNIT UNIT UNIT Montelukast Montelukast No 1{table [...] MG t} Ergocalcife Ergocalcife No 1{capsu rol 78866 rol 49534 le} UNIT UNIT Montelukast Montelukast No 1{table [...] MG Ergocalcife Ergocalcife No 1{capsu Ergocalcif rol 33312 rol 34875 le} fortunato 68641 UNIT UNIT UNIT Montelukast Montelukast No 1{table [...] MG Ergocalcife Ergocalcife No 1{capsu Ergocalcif rol 17353 rol 39842 le} fortunato 26182 UNIT UNIT UNIT Omeprazole Omeprazole No 1{capsu [...] MG Ergocalcife Ergocalcife No 1{capsu Ergocalcif rol 38490 rol 09684 le} fortunato 42447 UNIT UNIT UNIT Humira Humira No Humira [...] MG Ergocalcife Ergocalcife No 1{capsu Ergocalcif rol 45561 rol 49818 le} fortunato 76410 UNIT UNIT UNIT Famotidine Famotidine No 1{table [...] MG Ergocalcife Ergocalcife No 1{capsu Ergocalcif rol 09182 rol 44904 le} fortunato 52478 UNIT UNIT UNIT busPIRone busPIRone No 1{table [...] MG Ergocalcife Ergocalcife No 1{capsu Ergocalcif rol 28963 rol 18643 le} fortunato 53254 UNIT UNIT UNIT Montelukast Montelukast No 1{table [...] MG Ergocalcife Ergocalcife No 1{capsu Ergocalcif rol 38077 rol 91950 le} fortunato 97910 UNIT UNIT UNIT Montelukast Montelukast No 1{table [...] MG Ergocalcife Ergocalcife No 1{capsu Ergocalcif rol 76052 rol 04458 le} fortunato 74695 UNIT UNIT UNIT Flonase 50 Flonase 50 [...] MG Ergocalcife Ergocalcife No 1{capsu Ergocalcif rol 64139 rol 22140 le} fortunato 65216 UNIT UNIT UNIT PARoxetine PARoxetine No PARoxetine [...] MG Ergocalcife Ergocalcife No 1{capsu Ergocalcif rol 60446 rol 38847 le} fortunato 20642 UNIT UNIT UNIT PARoxetine PARoxetine No PARoxetine [...] MG Ergocalcife Ergocalcife No 1{capsu Ergocalcif rol 40640 rol 82773 le} fortunato 83373 UNIT UNIT UNIT Aspirin 81 Aspirin 81 [...] MG Ergocalcife Ergocalcife No 1{capsu Ergocalcif rol 85289 rol 52469 le} fortunato 98758 UNIT UNIT UNIT ALPRAZolam ALPRAZolam No 1{table [...] MG Ergocalcife Ergocalcife No 1{capsu Ergocalcif rol 81259 rol 90928 le} fortunato 16177 UNIT UNIT UNIT ALPRAZolam ALPRAZolam No 1{table [...] MG Ergocalcife Ergocalcife No 1{capsu Ergocalcif rol 79598 rol 48680 le} fortunato 83731 UNIT UNIT UNIT ALPRAZolam ALPRAZolam No 1{table [...] MG Ergocalcife Ergocalcife No 1{capsu Ergocalcif rol 76887 rol 79826 le} fortunato 22621 UNIT UNIT UNIT Benzonatate Benzonatate No TID [...] MG Ergocalcife Ergocalcife No 1{capsu Ergocalcif rol 57633 rol 72271 le} fortunato 06093 UNIT UNIT UNIT Benzonatate Benzonatate No TID [...] MG Ergocalcife Ergocalcife No 1{capsu Ergocalcif rol 59301 rol 98315 le} fortunato 81342 UNIT UNIT UNIT Famotidine Famotidine No Famotidine [...] MG Ergocalcife Ergocalcife No 1{capsu Ergocalcif rol 01912 rol 98935 le} fortunato 51969 UNIT UNIT UNIT Famotidine Famotidine No Famotidine [...] MG Ergocalcife Ergocalcife No 1{capsu Ergocalcif rol 62467 rol 19564 le} fortunato 04239 UNIT UNIT UNIT Gabapentin Gabapentin No 1{capsu [...] MCG/ACT Ergocalcife Ergocalcife No 1{capsu Ergocalcif rol 61229 rol 95180 le} fortunato 81456 UNIT UNIT UNIT Gabapentin Gabapentin No 1{capsu [...] MG Ergocalcife Ergocalcife No 1{capsu Ergocalcif rol 16146 rol 62148 le} fortunato 10429 UNIT UNIT UNIT Montelukast Montelukast No Montelukas [...] MG Ergocalcife Ergocalcife No 1{capsu Ergocalcif rol 76867 rol 66802 le} fortunato 05140 UNIT UNIT UNIT Cetirizine Cetirizine No Cetirizine [...] MG Ergocalcife Ergocalcife No 1{capsu Ergocalcif rol 73062 rol 59162 le} fortunato 81008 UNIT UNIT UNIT Cetirizine Cetirizine No Cetirizine [...] MG Ergocalcife Ergocalcife No 1{capsu Ergocalcif rol 59437 rol 23284 le} fortunato 25358 UNIT UNIT UNIT Cetirizine Cetirizine No Cetirizine [...] Ergocalcife No 1{capsu Ergocalcif rol 97894 rol 48795 le} fortunato 02513 UNIT UNIT UNIT Cetirizine Cetirizine No Cetirizine [...] MG Ergocalcife Ergocalcife No 1{capsu Ergocalcif rol 75753 rol 58731 le} fortunato 50883 UNIT UNIT UNIT Cetirizine Cetirizine No Cetirizine [...] MG Ergocalcife Ergocalcife No 1{capsu Ergocalcif rol 66017 rol 03608 le} fortunato 17502 UNIT UNIT UNIT guaiFENesin guaiFENesin No 10{ml_a [...] MG Ergocalcife Ergocalcife No 1{capsu Ergocalcif rol 49619 rol 52345 le} fortunato 07987 UNIT UNIT UNIT Meloxicam Meloxicam No Meloxicam [...] Humira Yes Na Lopez not Common defined [facility] Aspirin Aspirin Yes Na Lopez not Common defined [facility] BusPIRone BusPIRone Yes Na Lopez 1 tablet Common HCl HCl [facility] Metoprolol Metoprolol Yes Na Lopez 1 tablet Common [facility] T[facility] Lagevrio No 4{capsu BID Lagevrio 200 [...] MG Ergocalcife Ergocalcife No 1{capsu Ergocalcif rol 50089 rol 76080 le} fortunato 08278 UNIT UNIT UNIT Gabapentin Gabapentin No 1{capsu [...] 5 t} Besylate 5 MG MG MG Vital Signs Vital Name Observation Time Observation Value Comments Source Systolic blood 2023-03-20 20:35:00 133 mm[Hg] Univer sity [facility] Diastolic blood 2023-03-20 20:35:00 94 mm[Hg] [facility] Heart rate 2023-03-20 20:35:00 78 /min [facility] Oxygen saturation in 2023-03-20 20:35:00 95 /min [facility] Arterial blood by [facility] Pulse oximetry Branch Body temperature 2023-03-20 20:33:00 36.33 Gem [facility] Respiratory rate 2023-03-20 20:33:00 18 /min [facility] Body height 2023-03-20 20:33:00 160 cm Universi [facility] Body weight 2023-03-20 20:33:00 134.537 [facility] BMI 2023-03-20 20:33:00 52.54 kg[facility]m2 [facility] height 2022-08-31 08:20:00 63 [in_i] [facility] weight 2022-08-31 08:20:00 278 [lb_av] [facility] temperature 2022-08-31 08:20:00 98.5 [degF] [facility] bmi 2022-08-31 08:20:00 49.24 kg/m2 [facility] height 2022-08-10 10:20:00 63 [in_i] [facility] weight 2022-08-10 10:20:00 283 [lb_av] [facility] temperature 2022-08-10 10:20:00 98.5 [degF] [facility] bmi 2022-08-10 10:20:00 50.13 kg/m2 [facility] height 2022-06-22 10:20:00 63 [in_i] [facility] weight 2022-06-22 10:20:00 276 [lb_av] [facility] bmi 2022-06-22 10:20:00 48.89 kg/m2 [facility] height 2022-04-26 17:00:00 63 [in_i] [facility] weight 2022-04-26 17:00:00 279 [lb_av] [facility] temperature 2022-04-26 17:00:00 97.9 [degF] [facility] bmi 2022-04-26 17:00:00 49.42 kg/m2 Common S pirit [facility] height 2022-01-05 14:00:00 63 [in_i] Common S [facility] weight 2022-01-05 14:00:00 297 [lb_av] [facility] bmi 2022-01-05 14:00:00 52.61 kg/m2 [facility] blood pressure 2022-01-05 14:00:00 148 mm[Hg] Common Spirit - systolic [facility] blood pressure 2022-01-05 14:00:00 102 mm[Hg] Common Spirit - diastolic [facility] height 2021-12-28 16:00:00 63 [in_i] Common [facility] weight 2021-12-28 16:00:00 300.4 [lb_av] [facility] temperature 2021-12-28 16:00:00 97.3 [degF] [facility] bmi 2021-12-28 16:00:00 53.21 kg/m2 [facility] oximetry 2021-12-28 16:00:00 100 % [facility] respiratory rate 2021-12-28 16:00:00 18 /min Comm on [facility] blood pressure 2021-12-28 16:00:00 137 mm[Hg] Common [facility] - systolic [facility] blood pressure 2021-12-28 16:00:00 83 mm[Hg] Common Spirit - diastolic [facility] height 2021-09-28 09:40:00 63 [in_i] Common [facility] weight 2021-09-28 09:40:00 283 [lb_av] [facility] temperature 2021-09-28 09:40:00 97.9 [degF] [facility] bmi 2021-09-28 09:40:00 50.13 kg/m2 [facility] S [facility] height 2021-08-02 10:00:00 63 [in_i] [facility] weight 2021-08-02 10:00:00 282.6 [lb_av] [facility] temperature 2021-08-02 10:00:00 97.0 [degF] [facility] bmi 2021-08-02 10:00:00 50.05 kg/m2 [facility] oximetry 2021-08-02 10:00:00 97 % [facility] respiratory rate 2021-08-02 10:00:00 16 /min Comm on [facility] blood pressure 2021-08-02 10:00:00 140 mm[Hg] [facility] systolic [facility] blood pressure 2021-08-02 10:00:00 62 mm[Hg] [facility] [place] [facility] Systolic blood 2021-07-04 00:50:00 180 mm[Hg] Univer sity [facility] Diastolic blood 2021-07-04 00:50:00 110 mm[Hg] Unive rsity [facility] Heart rate 2021-07-04 00:50:00 79 /min [facility] Body temperature 2021-07-04 00:50:00 36.67 Gem [facility] 2021-07-04 00:50:00 18 /min [facility] Body weight 2021-07-04 00:50:00 121.564 kg [facility] Oxygen saturation in 2021-07-04 00:50:00 99 /min [facility] Arterial blood by [facility] Pulse oximetry Branch BP Systolic 2022-01-21 14:32:00 BP Diastolic 2022-01-21 14:32:00 Weight Measured 2022-01-21 14:32:00 276.00 pounds Height Measured 2022-01-21 14:32:00 63.00 inches Body Temperature 2022-01-21 14:32:00 Heart Rate 2022-01-21 14:32:00 Respiratory Rate 2022-01-21 14:32:00 Procedures Procedure Date / Time Performed Performing Clinician [facility] e ASSIGNMENT OF BENEFITS 2023-03-20 20:13:23 Doctor Unassigned, No [facility] Name Medical Branch REFERRAL- 2023-02-02 05:01:00 Doctor Unassigned, No [facility] REQUEST/RESPONSE Name [facility] XR CHEST 1 VW 2021-07-04 01:14:37 Raissa Tran [facility] NOTICE OF PRIVACY 2021-07-04 00:45:31 Doctor Unassigned, No [facility] PRACTICES Name Medical Branch CONSENT/REFUSAL FOR 2021-07-04 00:45:10 [facility] Name [facility] Branch TREATMENT Plan of Care Planned Activity Planned Date Details Comments Source Goal Plan of Care Note [code = 58510-0] Goal Plan of Care Note [code = 17694-2] Goal Plan of Care Note [code = 81100-5] Goal Plan of Care Note [code = 19927-1] Goal Plan of Care Note [code = 58873-2] Goal Plan of Care Note [code = 12830-0] Goal Plan of Care Note [code = 66261-0] Goal Plan of Care Note [code = 51228-4] Goal Plan of Care Note [code = 98571-7] Goal Plan of Care Note [code = 45164-9] Goal Plan of Care Note [code = 82536-2] Goal Plan of Care Note [code = 41128-7] Goal Plan of Care Note [code = 43635-6] Goal Plan of Care Note [code = 76090-1] Goal Plan of Care Note [code = 63166-5] Goal Plan of Care Note [code = 13482-3] Encounters Start End Encounter Admission Attending Care Care Encounter Source Date/Time Date/Time Type Type Clinicians Facility Department ID 2023-02-24 Outpatient ChungSTTIMMY [facility] [id number] Common 14:59:00 Avnee [id number] [facility] 2023-01-23 Outpatient TANO Chung [facility] [id number] Common 09:09:00 Avnee 47807 [facility] 2022-12-29 Outpatient TANO Chung [facility] [id number] Common 15:24:00 Avnee 46848 [facility] 2022-12-21 Outpatient Layla, STLMLC STLMLC [id number] Common 09:47:00 Karol [id number] [facility] 2022-06-01 Outpatient Lopez, Na STLMLC STLMLC [id number] Common 09:18:00 [facility] 2022-04-13 Outpatient Lopez, Na STLMLC STLMLC [id number] 2 Common 15:29:00 [facility] 2022-04-07 Outpatient Lopez, Na STLMLC STLMLC [id number] Common 16:07:00 [facility] 2022-01-04 Outpatient Lopez, Na STLMLC STLMLC [id number] 2 Common 09:31:01 [facility] 2021-10-20 Outpatient Lopez, Na STLMLC STLMLC [id number] 2 Common 14:09:55 04289 [facility] 2021-10-20 Outpatient Lopez, Na STLMLC STLMLC [id number] 2 Common 13:47:22 17190 [facility] 2021-10-20 Outpatient Lopez, Na STLMLC STLMLC [id number] 2 Common 12:29:04 82161 [facility] 2021-10-20 Outpatient Lopez, Na STLMLC STLMLC [id number] 2 Common 12:03:44 47560 [facility] 2021-10-20 Outpatient Lopez, Na STLMLC STLMLC [id number] 2 Common 12:03:05 71644 [facility] 2021-10-20 Outpatient Lopez, Na STLMLC STLMLC [id number] 2 Common 11:43:49 67477 [facility] 2021-10-20 Outpatient Lopez, Na STLMLC STLMLC [id number] 2 Common 11:35:56 96147 [facility] 2021-10-20 Outpatient Lopez, Na STLMLC STLMLC [id number] 2 Common 11:18:09 06909 [facility] 2021-10-20 Outpatient Lopez, Noemy STLMLC STLC [id number] 2 Common 11:04:54 97698 [facility] 2021-10-20 Outpatient Noemy Lopez STLMLC STLC [id number] 2 Common 11:04:25 51004 [facility] 2023-04-11 2023-04-11 Outpatient R JUAN SPICER [facility] [id number] Univers 13:00:00 13:00:00 JUAN SPICER ity [facility] 2023-03-29 2023-03-29 Telephone [facility] [id number] Univers 00:00:00 00:00:00 Lico GARCIA 350.1.13.10 [facility] [place] [phone] [address] 2023-03-29 2023-03-29 Telephone [facility] [id number] Univers 00:00:00 00:00:00 Lico GARCIA 350.1.13.10 [facility] [place] [phone] [address] 2023-03-20 2023-03-20 Outpatient R [facility] [id number] Univers 15:20:00 16:49:15 LICO martinez o f [facility] 2023-03-20 2023-03-20 Office [facility] [id number] Univers 15:20:00 15:40:00 Visit Lico GARCIA 350.1.13.10 [place] [phone] [address] 2023-03-20 2023-03-20 Orders Doctor TAM [id number] Univers 00:00:00 00:00:00 Only Unassigned, VITALY 350.1.13.10 ity of [place] [facility] 4.2.7.2.686 Herman as [phone] [address] 2023-02-02 2023-02-02 Orders Doctor ANEL [id number] Univers 00:00:00 00:00:00 Only Unassigned, VITALY 350.1.13.10 ity of [place] [facility] 4.2.7.2.686 Herman as [phone] [address] 2022-08-31 2022-08-31 OFFICE STLMLC STLMLC [id number] Co mmon 00:00:00 00:00:00 VISIT EST Spir it PT LEVEL 3 [facility] 2022-08-30 2022-08-30 (TEL) STLMLC STLMLC [id number] Co mmon 00:00:00 00:00:00 [facility] 2022-08-29 2022-08-29 Outpatient SFA SFA [id number] Stef 15:26:21 15:26:21 1205 F Mohinder 2022-08-29 2022-08-29 Outpatient [id number] [id number] 00:00:00 00:00:00 Visit 887a-486e [id number]-486e-[id number] -[id number] [id number] 2022-08-10 2022-08-10 (TEL) STLMLC STLMLC [id number] Co mmon 00:00:00 00:00:00 [facility] 2022-08-10 2022-08-10 (TEL) STLMLC STLMLC [id number] Co mmon 00:00:00 00:00:00 [facility] 2022-08-10 2022-08-10 (TEL) STLMLC STLMLC [id number] Co mmon 00:00:00 00:00:00 [facility] 2022-08-10 2022-08-10 OFFICE STLMLC STLMLC [id number] Co mmon 00:00:00 00:00:00 VISIT EST Spir it PT LEVEL 3 [facility] 2022-07-20 2022-07-20 (TEL) STLMLC STLMLC [id number] Co mmon 00:00:00 00:00:00 [facility] 2022-06-29 2022-06-29 (TEL) STLMLC STLMLC [id number] Co mmon 00:00:00 00:00:00 [facility] 2022-06-22 2022-06-22 OFFICE STLMLC STLMLC [id number] Co mmon 00:00:00 00:00:00 VISIT EST Spir it PT LEVEL 3 [facility] 2022-06-20 2022-06-20 (TEL) STLMLC STLMLC [id number] Co mmon 00:00:00 00:00:00 [facility] 2022-06-03 2022-06-03 OFFICE STLMLC STLMLC [id number] Co mmon 00:00:00 00:00:00 VISIT EST Spir it PT LEVEL 3 [facility] 2022-05-16 2022-05-16 (TEL) STLMLC STLMLC [id number] Co mmon 00:00:00 00:00:00 [facility] 2022-05-16 2022-05-16 OFFICE STLMLC STLMLC [id number] Co mmon 00:00:00 00:00:00 VISIT EST Spir it PT LEVEL 3 [facility] 2022-04-27 2022-04-27 (TEL) STLMLC STLMLC [id number] Co mmon 00:00:00 00:00:00 [facility] 2022-04-26 2022-04-26 (TEL) STLMLC STLMLC [id number] Co mmon 00:00:00 00:00:00 [facility] 2022-04-26 2022-04-26 OFFICE STLMLC STLMLC [id number] Co mmon 00:00:00 00:00:00 VISIT EST Spir it PT LEVEL 3 [facility] 2022-04-20 2022-04-20 Outpatient [id number] 00:00:00 00:00:00 Visit [id number]-b -[id number]-[id number] 2022-03-30 2022-03-30 OFFICE STLMLC STLMLC [id number] Co mmon 00:00:00 00:00:00 VISIT [facility] ESTAB PT - CHI LEVEL 4 [facility] 2022-02-14 2022-02-14 (TEL) STLMLC STLMLC [id number] Co mmon 00:00:00 00:00:00 [facility] 2022-01-27 2022-01-27 OFFICE STLMLC STLMLC [id number] Co mmon 00:00:00 00:00:00 VISIT EST Spir it PT LEVEL 3 [facility] 2022-01-26 2022-01-26 (TEL) STLMLC STLMLC [id number] Co mmon 00:00:00 00:00:00 [facility] 2022-01-18 2022-01-18 (TEL) STLMLC STLMLC [id number] Co mmon 00:00:00 00:00:00 [facility] 2022-01-05 2022-01-05 OFFICE STLMLC STLMLC [id number] Co mmon 00:00:00 00:00:00 VISIT NEW Spir it PT LEVEL 3 - CHI [facility] 2021-12-28 2021-12-28 OFFICE STLMLC STLMLC [id number] Co mmon 00:00:00 00:00:00 VISIT [facility] ESTAB PT - CHI LEVEL 4 [facility] 2021-11-15 2021-11-15 (TEL) STLMLC STLMLC [id number] Co mmon 00:00:00 00:00:00 [facility] 2021-11-11 2021-11-11 (TEL) STLMLC STLMLC [id number] Co mmon 00:00:00 00:00:00 [facility] 2021-09-28 2021-09-28 OFFICE STLMLC STLMLC [id number] Co mmon 00:00:00 00:00:00 VISIT Spirit ESTAB PT - CHI LEVEL 4 [facility] 2021-08-272021-08-27 (TEL) STLMLC STLMLC [id number] Co mmon 00:00:00 00:00:00 [facility] 2021-08-04 2021-08-04 (TEL) STLMLC STLMLC [id number] Co mmon 00:00:00 00:00:00 [facility] 2021-08-02 2021-08-02 OFFICE STLMLC STLMLC [id number] Co mmon 00:00:00 00:00:00 VISIT [facility] LEVEL 4 [facility] 2021-07-22 2021-07-22 Outpatient Vanesa Cheung HCAPM RADI LA0 [id number] [facility] 08:00:00 08:00:00 63 [facility] [place] 2021-07-03 2021-07-03 Emergency Marc, [facility] [id number] Univers 19:47:00 21:16:00 [facility] [id number] [place] [address] [place] 2021-07-03 2021-07-03 Emergency X [facility] ERT [id number] Univers 19:47:00 19:47:00 ity [facility] 2021-06-07 2021-06-07 Outpatient STLMLC STLMLC [id number] Common 00:00:00 00:00:00 [facility] 2021-05-06 2021-05-06 Outpatient STLMLC STLMLC [id number] Common 00:00:00 00:00:00 [facility] 2021-04-28 2021-04-28 Outpatient STLMLC STLMLC [id number] Common 00:00:00 00:00:00 [facility] 2021-04-27 2021-04-27 Outpatient STLMLC STLMLC [id number] Common 00:00:00 00:00:00 [facility] 2021-03-15 2021-03-15 Outpatient STLMLC STLMLC [id number] Common 00:00:00 00:00:00 [facility] 2021-01-04 2021-01-04 Outpatient STLMLC STLMLC [id number] Common 00:00:00 00:00:00 [facility] 2020-11-03 2020-11-03 Outpatient STLMLC STLMLC [id number] Common 00:00:00 00:00:00 [facility] 2020-08-03 2020-08-03 Outpatient STLMLC STLMLC [id number] Common 00:00:00 00:00:00 [facility] 2020-05-04 2020-05-04 Out[facility] [id number] Common 10:10:00 10:10:[address] [facility] 2020-05-01 2020-05-01 Out[facility] [id number] Common 09:40:00 09:40:[address] [facility] 2020-02-19 2020-02-19 Out[facility] [id number] Common 16:06:00 16:06:[address] [facility] [address] [facility] 2019-12-12 2019-12-12 Outpatient [facility] [id number] Common 15:41:00 15:41:[address] [facility] 2019-09-16 2019-09-16 Outpatient [facility] [id number] Common 14:40:00 14:40:[address] [facility] 2019-08-15 2019-08-15 Outpatient [facility] [id number] Common 09:27:00 09:27:[address] [facility] 2019-08-12 2019-08-12 Outpatient [facility] [id number] Common 09:00:00 09:00:[address] [facility] 2019-07-31 2019-07-31 Outpatient [facility] [id number] Common 11:46:00 11:46:[address] [facility] 2019-07-29 2019-07-29 Outpatient [facility] [id number] Common 09:40:00 09:40:[address] [facility] 2019-06-02 2019-06-02 Outpatient [facility] [id number] Common 09:38:00 09:38:00 t [facility] 2019-05-31 2019-05-31 Outpatient [facility] [id number] Common 11:30:00 11:30:00 t [facility] 2018-01-19 2018-01-19 Out[facility] [id number] Common 08:11:00 08:11:[address] [facility] 2018-01-18 2018-01-18 Outpatient [facility] [id number] Common 10:15:00 10:15:[address] [facility] 2017-12-26 2017-12-26 Out[facility] [id number] Common 09:30:00 09:30:[address] [facility] 2008-10-21 2008-10-21 Outpatient [facility] [id number] Univers 00:00:00 11:14:00 1 [facility] Results Test Description Test Time Test Comments Results Result Comments Source SARS-CoV-2 (COVID-19), RT-PCR/TMA 2021-12-10 07:26:55 Test Item Value Reference Range Interpretation Comme nts SARS-CoV-2 INTERPRETATION NEGATIVE SEE NOTE S ARS-CoV-2 RNA NOT (test code = 54139) DETECTED Negative results do not preclude SARS-C [...] ORDER CODE 3509. SOURCE (test code = 18482) NASOPHARYNGEAL Note: Methodology is [employer] Real-Time RT-PC R. The expected result or refer ence range is NEGATIVE (Not D etected). For more information reg arding COVID-19 testing to incl ude clinicalinforma tion, methodology detail, intende d use, FDA authorization a ndrecommended fact sheets for carlos ents or healthcare providers, see [facility] Announcement: S ARS-CoV-2 (COVID-19) by N AAT at URL below (note,fact shee ts are provided by method given in report:https:// www.[employer]/cl inicians/client -communications/ Alternatively, see downloadable PDF fact sheet at:https://www. [employer]/COVID- 19-RT-PCR UNLES S OTHERWISE INDICATED, ALL TESTING PERFORMED [facility]. [address] [place] [address] 4 [employer] MILL OPERATOR: PRUDENCE SOLIS M.D. CLIA NUMBER [id number] CAP ACCREDITATION N O. [id number] SARS-CoV-2 (COVID-19) by RT-PCR (HIGH RISK)2021-12-10 00:00:00 Test Item Value Reference Range Interpretation Comments SARS-CoV-2 INTERPRETATION NEGATIVE (test code = 47281) SOURCE (test code = 59716) NASOPHARYNGEAL SARS-CoV-2 (COVID-19) by RT-PCR (HIGH RISK)2021-12-10 00:00:00 Test Item Value Reference Range Interpretation Comments SARS-CoV-2 INTERPRETATION NEGATIVE (test code = 58371) SOURCE (test code = 63196) NASOPHARYNGEAL SARS-CoV-2 (COVID-19) by RT-PCR (HIGH RISK)2021-12-10 00:00:00 Test Item Value Reference Range Interpretation Comments SARS-CoV-2 INTERPRETATION NEGATIVE (test code = 23732) SOURCE (test code = 28099) NASOPHARYNGEAL Lipid Panel w/ Chol/HDL [id number] 00:00:00 Test Item Value Reference Range Interpretation Comments Cholesterol, Total (test code = 2093-3) 186 100-199 Triglycerides (test code = 2571-8) 86 0-149 HDL Cholesterol (test code = 5-9) 59 >39 T. Chol/HDL Ratio (test code = 9830-1) 3.2 0.0-4.4 JOSÉ w/Reflex if [id number] 00:00:00 Test Item Value Reference Range Interpretation Comments JOSÉ Direct (test code = 8061-4) Negative Negative Comp. Metabolic Panel (14) ([facility])2021-08-02 00:00:00 Test Item Value Reference Range Interpretation Comments Glucose (test code = 2345-7) 75 65-99 BUN (test code = 3094-0) 10 6-24 Creatinine (test code = 2160-0) 0.74 0.57-1.00 eGFR If NonAfricn Am (test code = 97 >59 29023-7) eGFR If Africn Am (test code = 67592-3) 112 >59 BUN/Creatinine Ratio (test code = 14 06-17 3097-3) Sodium (test code = 2951-2) 141 134-144 Potassium (test code = 2823-3) 3.7 3.5-5.2 Chloride (test code = 2075-0) 102 96-106 Carbon Dioxide, Total (test code = -2028-05) Calcium (test code = 99358-1) 9.6 8.7-10.2 Protein, Total (test code = 2885-2) 8.8 6.0-8.5 Albumin (test code = 1751-7) 4.6 3.8-4.8 Globulin, Total (test code = 14639-8) 4.2 1.5-4.5 A/G Ratio (test code = 1759-0) 1.1 1.2-2.2 Bilirubin, Total (test code = 1975-2) 0.6 0.0-1.2 Alkaline Phosphatase (test code = 76 44-121 6768-6) AST (SGOT) (test code = 1920-8) 20 0-40 ALT (SGPT) (test code = 1742-6) 19 0-32 CBC With Differential/[id number] 00:00:00 Test Item Value Reference Range Interpretation [...] Granulocytes (test code = 0 Not Estab. 73085-5) Immature Grans (Abs) (test code = 0.0 0.0-0.1 41417-0) NRBC (test code = 95554-2) Hematology Comments: (test code = 59469-5) Rheumatoid Arthritis [id number] 00:00:00 Test Item Value Reference Range Interpretation Comments Rheumatoid Factor (RF) (test code = <10.0 0.0-13.9 35305-4) C-Reactive Protein, Quant (CRP)2021-08-02 00:00:00 Test Item Value Reference Range Interpretation Comments C-Reactive Protein, Quant (test code = 13 0-10 1988-5) Vitamin D, 83-Bvvpqgo6916-17-08 00:00:00 Test Item Value Reference Range Interpretation Comments Vitamin D, 25-Hydroxy (test code = 24.0 30.0-100.0 1988-3) - CT ABD PELVIS W/[id number] 09:50:00 [facility] 1975 Sex: F Name: SHE FITZGERALD [facility] : 1975 Age/S: 46 / F [address] [facility] Unit #: [id number] Loc: [place] [address] Phys: Vanesa Nunez MD Acct: [id number] Dis Date: Status: REG CLI PHONE #: [phone] Exam Date: 07/22/2021917 FAX #: Reason: CROHNS DISEASE, UNSPECIFIED, WITHOUT COMPLICATI EXAMS: CPT: [id number] CT ABD PELVIS W/CONT 20338 HISTORY: CROHN'S DISEASE, UNSPECIFIED, WITHOUT COMPLICATIONS TECHNIQUE: [...] 1 Signed Report (CONTINUED) Name: SHE FITZGERALD [facility] : 1975 Age/S: 46 / F [address] [address] Unit #: [id number] Loc: [place] [address] Phys: Vanesa Nunez MD Acct: [id number] Dis Date: Status: REG CLI PHONE #: [phone] Exam Date: 07/22/2021 0918 FAX #: Reason: CROHNS DISEASE, UNSPECIFIED, WITHOUT COMPLICATI EXAMS: CPT: [id number] CT ABD PELVIS W/CONT 77959 (Continued) IMPRESSION: 1. There is mild diffusethickening [...] (0950) [id number] Orig Print D/T: S: 07/22/2021 (9664) PAGE 2 Signed [id number] 08:27:00 Test Item Value Reference Range Interpretation Comments ISTAT-BUN (test code = BUNP) 8 mg/dL 8-26 N BEDSIDE [id number] 08:27:00 Test Item Value Reference Range Interpretation Comments BEDSIDE CREATININE (test code = 0.6 mg/dL 0.6-1.3 N CREATBED) SARS-COV-2 (COVID19), NAAT [ADDED]2020-10-02 00:00:00 Test Item Value Reference Range Interpretation Comments SARS-CoV-2 INTERPRETATION (test NEGATIVE code = 64228) SOURCE (test code = 35962) NOT SPECIFIED SARS-COV-2 (COVID19), NAAT [ADDED]2020-10-02 00:00:00 Test Item Value Reference Range Interpretation Comments SARS-CoV-2 INTERPRETATION (test NEGATIVE code = 17411) SOURCE (test code = 65383) NOT SPECIFIED SARS-COV-2 (COVID19), NAAT [ADDED]2020-10-02 00:00:00 Test Item Value Reference Range Interpretation Comments SARS-CoV-2 INTERPRETATION (test NEGATIVE code = 18354) SOURCE (test code = 79989) NOT SPECIFIED SARS-CoV-2 (COVID-19) by RT-PCR (HIGH RISK)2020-04-17 00:00:00 Test Item Value Reference Range Interpretation Comments SARS-CoV-2 INTERPRETATION (test NEGATIVE code = 45253) SOURCE (test code = 00824) NOT SPECIFIED SARS-CoV-2 (COVID-19) by RT-PCR (HIGH RISK)2020-04-17 00:00:00 Test Item Value Reference Range Interpretation Comments SARS-CoV-2 INTERPRETATION (test NEGATIVE code = 86292) SOURCE (test code = 24373) NOT SPECIFIED SARS-CoV-2 (COVID-19) by RT-PCR (HIGH RISK)2020-04-17 00:00:00 Test Item Value Reference Range Interpretation Comments SARS-CoV-2 INTERPRETATION (test NEGATIVE code = 07028) SOURCE (test code = 14847) NOT SPECIFIED POC, COVID 19 Antigen [facility] Antigen + Flu by Jennifer
[2023-04-02] MEDS ORDERED: FAMOTIDINE 20 MG/2 ML VIAL IV ONE (13:35)
[2023-04-02] MEDS ORDERED: ONDANSETRON 4 MG/2 ML VIAL ONE (13:35)
[2023-04-02] MEDS ORDERED: KETOROLAC 30 MG/ML INJ ONE (13:35)
[2023-04-02] MEDS ORDERED: NA CHLORIDE 0.9% 1,000 ML ONE (13:35)
[2023-04-02 14:06] LABS: Absolute Lymphocytes (CBC) 2.3 K/uL (0.7-4.9); Hematocrit 38.9 % (36.0-45.0); Lymphocytes % 36.5 % (15.3-44.8); MCV 80.1 fL (80-100); MPV 8.2 fL (7.6-11.3); RBC Red Blood Cell Count 4.85 M/uL (3.86-4.86)
[2023-04-02 14:25] LABS: Albumin 3.3 g/dL (3.4-5.0); Bilirubin Total 0.6 mg/dL (0.2-1.0); Potassium 3.4 mEq/L (3.5-5.1); Protein, Total 8.5 g/dL (6.4-8.2)
--- NOTE | 2023-04-02 15:24 | RAD REPORT ---
EXAM DESCRIPTION: CT - Abdomen Pelvis W Contrast - 04/02/2023 2:44 pm CLINICAL HISTORY: ABD PAIN COMPARISON: Abdomen Pelvis W Contrast dated 10/09/2022; Abdomen Pelvis W Contrast dated 2; Abdomen Pelvis W Contrast dated 01/04/2022; Abdomen Pelvis W Contrast dated 12/15/2020 TECHNIQUE: Thin cut axial CT imaging of the abdomen and pelvis was performed following intravenous a dministration of 95 mL Isovue 300. Multiplanar reformats were generated and reviewed. All CT scans are performed using dose optimization technique as appropriate and may include automated exposure control or mA/KV adjustment according to patient size. FINDINGS: No suspicious findings in the lung bases. The liver, spleen, and pancreas show no suspicious findings. Status post cholecystectomy. Symmetric renal function is seen with no hydronephrosis or suspicious renal mass. Sequelae of partial proximal colectomy. No dilated bowel loops or bowel wall thickening. No free air, free fluid or inflammatory stranding. No hernia, mass or bulky lymphadenopathy. The urinary bladder is without significant finding. No suspicious bony findings. IMPRESSION: No acute intra-abdominal process. Postsurgical sequelae of proximal partial colectomy and cholecystectomy.
[2023-04-02 15:51] LABS: Specific Gravity > 1.030 (1.005-1.030)
[2023-04-02 15:52] LABS: Urine Bacteria <20 /HPF (<20); Urine Bilirubin NEGATIVE (Negative); Urine Blood Negative (Negative); Urine Clarity Clear (Clear); Urine Color Yellow (Yellow); Urine Glucose NEGATIVE (Negative); Urine Mucus 4+ /HPF (None Seen); Urine Protein TRACE (Negative); Urine RBC <5 /HPF (None Seen); Urine Urobilinogen Normal (Normal); Urine pH 5.5 (5.0-7.0)
[2023-04-02 16:11] LABS: Specific Gravity > 1.030 (1.005-1.030)
--- NOTE | 2023-04-02 16:21 | EDPHYS ---
Physician Documentation [facility] Name: Dori Guardado Age: 48 yrs Sex: Female : 1975 Arrival Date: 04/02/2023 Time: 12:40 Bed 19 Private MD: Syed [facility] ED Physician Hardy Yee HPI: 04/02 14:47 This 48 yrs old Black Female presents to ER via Ambulatory with complaints of Abdominal sb4 Pain. 14:47 The patient presents with abdominal pain in the epigastric area. Onset: The sb4 symptoms/episode began/occurred 2 day(s) ago. The symptoms do not radiate. Associated signs and symptoms: Pertinent positives: nausea, Pertinent negatives: diarrhea, dysuria, fever, vomiting. Modifying factors: the symptoms are aggravated by food. Severity of pain:. 48 year old female with history of crohns and afib on eliquis presents with epigastric abdominal pain that began 2 nights ago after eating dinner. she states the pain moves all around her abdomen but is mainly in the epigastric/RUQ area. she has previously had an appendectomy and cholecystectomy. 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 - Social history:: Smoking status: Patient denies any tobacco usage or history of. ROS: 14:47 Constitutional: Negative for fever, chills, and weight loss, Eyes: Negative for injury, sb4 pain, redness, and discharge, Cardiovascular: Negative for chest pain, palpitations, and edema, Respiratory: Negative for shortness of breath, cough, wheezing, and pleuritic chest pain, MS/Extremity: Negative for injury and deformity, Skin: Negative for injury, rash, and discoloration, Neuro: Negative for headache, weakness, numbness, tingling, and seizure. 14:47 Abdomen/GI: Positive for abdominal pain, nausea, Negative for diarrhea, hematemesis, black/tarry stool, rectal pain, bowel incontinence. Exam: 14:47 Constitutional: This is a well developed, well nourished patient who is awake, alert, sb4 and in no acute distress. Head/Face: Normocephalic, atraumatic. Eyes: Extra-ocular motions intact. Periorbital areas with no swelling, redness, or edema. Cardiovascular: Regular rate and rhythm with a normal S1 and S2. Respiratory: Lungs have equal breath sounds bilaterally, clear to auscultation and percussion. No rales, rhonchi or wheezes noted. No increased work of breathing, no retractions or nasal flaring. Abdomen/GI: Soft, non-tender, no distension. Back: No spinal tenderness. No costovertebral tenderness. Full range of motion. Skin: Warm, dry with normal turgor. Normal color with no rashes, no lesions, and no evidence of cellulitis. MS/ Extremity: Pulses equal, no cyanosis. Neurovascular intact. Full, normal range of motion. Vital Signs: 13:01 BP 133 / 98; Pulse 70; Resp 16; Temp 98.1(O); Pulse Ox 100% on R/A; Weight 127.01 kg; vg1 Height 5 ft. 3 in. ; Pain 6/10; 16:41 BP 121 / 91; Pulse 55; Resp 16; Pulse Ox 99% on R/A; cm10 13:01 Body Mass Index 49.60 (127.01 kg, 160.02 cm) vg1 13:01 Pain Scale: Adult vg1 MDM: 12:44 Patient medically screened. sb4 14:47 Differential diagnosis: bowel obstruction, diverticulitis, gastritis, gastroesophageal sb4 reflux disease, GI Bleed, Hepatitis, Mesenteric ischemia or infarction, non-specific abd pain, pancreatitis, Peptic Ulcer Disease, Peritonitis, Pyelonephritis, Ureterolithiasis, urinary tract infection. 16:17 Data reviewed: vital signs, nurses notes, lab test result(s), radiologic studies, CT sb4 scan, and as a result, I will discharge patient. Consideration of Admission/Observation Escalation of care including admission/observation considered. I considered the following discharge prescriptions or medication management in the emergency department I discussed and recommended Over The Counter medications. Test considered but Not performed: Ultrasound GB not present, LFTs \T\ lipase normal. Care significantly affected by the following chronic conditions: Hypertension. Counseling: I had a detailed discussion with the patient and/or guardian regarding: the historical points, exam findings, and any diagnostic results supporting the discharge/admit diagnosis, lab results, radiology results, the need for outpatient follow up, a finish patcher, to return to the emergency department if symptoms worsen or persist or if there are any questions or concerns that arise at home. ED course: Discussed with patient that her symptoms are likely secondary to GERD or possibly a developing ulcer and she should follow up with GI. She already sees Dr. Nunez and is working to get an EGD scheduled once cardiology clears her. I advised her to continue taking her omeprazole and pepcid and to NOT take any NSAIDs or aspirin. I emphasized the importance of her returning to the ED if she ever notices dark stool or if her pain gets significantly worse. She understood. 04/02 13:23 Order name: CBC with Diff; Complete Time: 14:36 sb4 04/02 13:23 Order name: CMP; Complete Time: 14:36 sb4 04/02 13:23 Order name: Lipase; Complete Time: 14:36 sb4 04/02 13:23 Order name: Test, Urine; Complete Time: 15:51 sb4 04/02 13:23 Order name: Urinalysis w/ reflexes; Complete Time: 16:13 sb4 04/02 13:23 Order name: CT Abd/Pelvis - IV Contrast Only; Complete Time: 15:27 sb4 04/02 13:23 Order name: IV Saline Lock; Complete Time: 13:47 sb4 04/02 13:23 Order name: Labs collected and sent; Complete Time: 13:47 sb4 Administered Medications: 13:47 Drug: TORadol - Ketorolac IVP 15 mg Route: IVP; Site: left antecubital; kc6 15:11 Follow up: Response: No adverse reaction cm10 13:47 Drug: Ondansetron IVP 4 mg Route: IVP; Site: left antecubital; kc6 15:11 Follow up: Response: No adverse reaction cm10 13:48 Drug: NS 0.9% IV 1000 ml Route: IV; Rate: 1 bolus; Site: left antecubital; kc6 15:11 Follow up: IV Status: Completed infusion; IV Intake: 1000ml cm10 13:48 Drug: Famotidine IVP 20 mg Route: IVP; Site: left antecubital; kc6 15:11 Follow up: Response: No adverse reaction cm10 Disposition Summary: 04/02/23 16:20 Discharge Ordered Location: Home sb4 Problem: new sb4 Symptoms: have improved sb4 Condition: Stable sb4 Diagnosis - Gastro-esophageal reflux disease without esophagitis sb4 Followup: sb4 - With: - When: As needed - Reason: Recheck today's complaints, Continuance of care, Re-evaluation by your physician Followup: sb4 - With: Vanesa Nunez MD - When: As needed - Reason: Further diagnostic work-up Discharge Instructions: - Discharge Summary Sheet sb4 - Food Choices for Gastroesophageal Reflux Disease, Adult sb4 - Gastroesophageal Reflux Disease, Adult sb4 - Indigestion sb4 Forms: - Medication Reconciliation Form sb4 - Thank You Letter sb4 - Antibiotic Education sb4 - Prescription Opioid Use sb4 - [email or web address] sb4 Signatures: Dispatcher [employer] Eleanor Roberto RN RN vg1 Meg Pritchett RN RN kc6 Poppy [place] PAVíctor PAVíctor sb4 Janel Dejesus RN cm10
--- NOTE | 2023-04-02 16:21 | ER ---
Nurse's Notes [facility] Name: Dori Guardado Age: 48 yrs Sex: Female : 1975 Arrival Date: 04/02/2023 Time: 12:40 Bed 19 Private MD: Tramaine Lynch Diagnosis: Gastro-esophageal reflux disease without esophagitis Presentation: 04/02 13:01 Chief complaint: Patient states: ABD pain that began last night, stated Epigastric, RLQ vg1 and Left flank pain with nausea. Last BM this morning. Coronavirus screen: Vaccine status: Patient reports being unvaccinated. Client denies travel out of the [place] in the last 14 days. Ebola Screen: Patient negative for fever greater than or equal to 101.5 degrees Fahrenheit, and additional compatible Ebola Virus Disease symptoms Patient denies exposure to infectious person. Patient denies travel to an Ebola-affected area in the 21 days before illness onset. Initial Sepsis Screen: Does the patient meet any 2 criteria? No. Patient's initial sepsis screen is negative. Does the patient have a suspected source of infection? No. Patient's initial sepsis screen is negative. Risk Assessment: Do you want to hurt yourself or someone else? Patient reports no desire to harm self or others. Onset of symptoms was April 01, 2023. 13:01 Method Of Arrival: Ambulatory vg1 13:01 Acuity: KASH 3 vg1 Triage Assessment: 13:02 General: Appears uncomfortable, Behavior is cooperative. Pain: Complains of pain in vg1 epigastric area, posterior aspect of left lateral abdomen and right lower quadrant Pain currently is 6 out of 10 on a pain scale. Pain began 1 day ago. GI: Reports nausea, Patient currently denies diarrhea, vomiting. : Denies burning with urination. 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 - Social history:: Smoking status: Patient denies any tobacco usage or history of. Screenin:23 [facility] ED Fall Risk Assessment (Adult) History of falling in the last 3 months, kc6 including since admission No falls in past 3 months (0 pts) Confusion or Disorientation No (0 pts) Intoxicated or Sedated No (0 pts) Impaired Gait No (0 pts) Mobility Assist Device Used No (0 pt) Altered Elimination No (0 pt) Score/Fall Risk Level 0 - 2 = Low Risk Oriented to surroundings, Maintained a safe environment, Educated pt \T\ family on fall prevention, incl call for assistance when getting out of bed, Assessed \T\ reinforced patient's understanding of fall precautions, Hourly rounding (assess needs \T\ fall precautionary measures) done. Abuse screen: Denies threats or abuse. Denies injuries from another. Nutritional screening: No deficits noted. Tuberculosis screening: No symptoms or risk factors identified. Assessment: 13:48 Reassessment: Patient appears in no apparent distress at this time. No changes from kc6 previously documented assessment. Patient and/or family updated on plan of care and expected duration. Pain level reassessed. Patient is alert, oriented x 3, equal unlabored respirations, skin warm/dry/pink. 15:11 Reassessment: No changes from previously documented assessment. Patient and/or family cm10 updated on plan of care and expected duration. Pain level reassessed. Patient is alert, oriented x 3, equal unlabored respirations, skin warm/dry/pink. Patient denies pain at this time. Patient states feeling better. Patient states symptoms have improved. 16:42 GI: Bowel sounds Abd is soft and non tender. cm10 Vital Signs: 13:01 BP 133 / 98; Pulse 70; Resp 16; Temp 98.1(O); Pulse Ox 100% on R/A; Weight 127.01 kg; vg1 Height 5 ft. 3 in. ; Pain 6/10; 16:41 BP 121 / 91; Pulse 55; Resp 16; Pulse Ox 99% on R/A; cm10 13:01 Body Mass Index 49.60 (127.01 kg, 160.02 cm) vg1 13:01 Pain Scale: Adult vg1 ED Course: 12:43 Patient arrived in ED. im 12:44 Tramaine Lynch DO is Private Physician. im 12:44 [facility] [place] [facility] sb4 12:44 Hardy Yee MD is Attending Physician. sb4 13:02 Triage completed. vg1 13:02 Arm band placed on. vg1 13:23 Meg Pritchett, LEONA is Primary Nurse. kc6 13:23 Patient has correct armband on for positive identification. Bed in low position. Call kc6 light in reach. Side rails up X 1. 13:48 Inserted saline lock: 20 gauge in left antecubital area, using aseptic technique. Blood kc6 collected. 14:46 CT Abd/Pelvis - IV Contrast Only In Process Unspecified. EDMS 15:08 Primary Nurse role handed off by Meg Pritchett RN cm10 15:08 Janel Dejesus RN is Primary Nurse. cm10 16:20 Tramaine Lynch DO is Referral Physician. sb4 16:20 Referral Physician role handed off by Tramaine Lynch DO sb4 16:20 Vanesa Nunez MD is Referral Physician. sb4 16:42 No provider procedures requiring assistance completed. IV discontinued, intact, cm10 bleeding controlled, No redness/swelling at site. Pressure dressing applied. Administered Medications: 13:47 Drug: TORadol - Ketorolac IVP 15 mg Route: IVP; Site: left antecubital; kc6 15:11 Follow up: Response: No adverse reaction cm10 13:47 Drug: Ondansetron IVP 4 mg Route: IVP; Site: left antecubital; kc6 15:11 Follow up: Response: No adverse reaction cm10 13:48 Drug: NS 0.9% IV 1000 ml Route: IV; Rate: 1 bolus; Site: left antecubital; kc6 15:11 Follow up: IV Status: Completed infusion; IV Intake: 1000ml cm10 13:48 Drug: Famotidine IVP 20 mg Route: IVP; Site: left antecubital; kc6 15:11 Follow up: Response: No adverse reaction cm10 Medication: 16:42 VIS not applicable for this client. cm10 Intake: 15:11 IV: 1000ml; Total: 1000ml. cm10 Outcome: 16:20 Discharge ordered by . sb4 16:42 Discharged to home ambulatory. cm10 16:42 Condition: good 16:42 Discharge instructions given to patient, Instructed on discharge instructions, follow up and referral plans. Demonstrated understanding of instructions, follow-up care. 16:42 Patient left the ED. cm10 Signatures: Dispatcher [employer] Eleanor Roberto, RN RN [email or web address] Meg Pritchett RN RN [email or web address] Poppy [place], PAVíctor PAVíctor [email or web address] Lakia Jin Clarissa, RN RN cm10
[2023-04-02 17:14] VITALS: TEMP 98.1
[2023-04-02 17:15] VITALS: BP 121/91; O2SAT 99
== END 2023-04-02 16:42 | disposition home or self-care (01) ==
LOC: ER 12:40
DX: K21.9 Gastro-esophageal reflux disease without esophagitis (principal); I10 Essential (primary) hypertension; I48.91 Unspecified atrial fibrillation; Z79.01 Long term (current) use of anticoagulants
CPT/HCPCS: 96361; 85025; 81001; 36415; 81025; 83690; 80053; 74177; 96375; 96374; 99284; Q9967; J2405; J7030

== ENCOUNTER 2023-05-17 16:52 | Emergency (ER) | payer OTHER ==
--- OUTSIDE RECORDS SUMMARY | 2023-05-17 17:01 | XMS REPORT | Continuity of Care Document ---
:1975 Author Organization [facility] [place] [facility] t Address [address] [facility] [address] [place] [address] Care Team Providers Name Role Phone Sree Lynchkevin Tabor Primary Care Physician Taylor Chung Attending Clinician Unavailable Karol Rich Attending Clinician Unavailable Noemy Lopez Attending Clinician Unavailable LICO TREVIZO Attending Clinician Unavailable LUCY CUEVAS Attending Clinician Unavailable LUCY CUEVAS Attending Clinician Unavailable CHRISTINA OSORIO Attending Clinician Unavailable CHRISTINA OSORIO Attending Clinician Unavailable MAC LEWIS Attending Clinician Unavailable MAC LEWIS Attending Clinician Unavailable Lico Trevizo MD Attending Clinician [facility] Attending Clinician Unavailable Christina Osorio MD Attending Clinician Doctor Unassigned, [place] Attending Clinician Unavailable Vanesa Nunez Attending Clinician Unavailable Raissa Tran DO Attending Clinician Lopez, Na Ly Admitting Clinician Unavailable Payers Payer Name Policy Type Policy Number Effective Date Expiration Date Hope fregoso FORMERLY [facility] [id number] 2020 HEALTH CHOICE 00:00:00 [place] [id number] 2020 Common Spiri t Health Choice 00:00:00 - [facility] Medica l [place] [address] [id number] 2020 Common Spiri t Health Choice 00:00:00 - [facility] Medica l [place] [address] [id number] 2020 Common Spiri t Health Choice 00:00:00 - [facility] Problems Condition Condition Condition Status Onset Resolution Last Treating Co mments Source Name Details Category Date Date Treatment Clinician Date [id number] Microcytic Problem Co mmon anemia [facility] [id number] [place], [place] [id number] joint, [facility] knee, - [facility] right [facility] [id number] Sinusitis, Problem Com mon maxillary, [facility] chronic [facility] [id number] Recurrent Problem Com mon falls [facility] [id number] Balance Problem Commo n problem [facility] Morbid Obesity, Problem Common obesity morbid, Spirit BMI 50 or - [facility] higher [facility] [id number] Crohn's Problem Commo n disease in [facility] remission [facility] [id number] Gastroesop Problem Co mmon hageal [facility] reflux - [facility], [facility] Medica l not Center specified Iron Iron Problem Common deficiency deficiency Sp jose anemia anemia, - [facility] unspecifie [facility] iron [facility] deficiency Medica l anemia Center type [id number] Adult Problem Common general [facility] medical - [facility] exam [facility] [id number] Hematuria, Problem Com mon unspecifie [facility] d [facility] [id number] Multiple Problem Commo n joint pain [facility] [id number] Urinary Problem Common tract Spirit infection, - [facility] site not [facility] [id number] BMI Problem Common 50.0-59.9, [facility] adult [facility] [id number] Vitamin D Problem Comm on deficiency [facility] [id number] Grieving Problem Comm on [facility] [id number] Seasonal Problem Comm on allergic Spirit rhinitis, - [facility] unspecifie d [facility] [id number] Abdominal Problem Com mon bloating [facility] [id number] Crohn's Problem Common disease Spirit without - [facility] complicati [facility] unspecifie Medica l d [place] gastrointe stinal tract location [id number] Seasonal Problem Commo n allergic Spirit rhinitis - [facility] due to [facility] Mixed Depression Problem Commo n anxiety with Spirit and anxiety - [facility] depressive [facility] High blood High blood Problem C ommon pressure pressure [facility] [id number] Other Problem Common chronic Spirit pain - [facility] [id number] Esophageal Problem Com mon stricture [facility] No known No known Disease Unive rs active active ity of problems problems [facility] Allergies, Adverse Reactions, Alerts Allergy Allergy Status Severity Reaction(s) Onset Inactive Treating Comm ents Source Name Type Date Date Clinician No Known DA Active U 2020-09 [facility]28 [place] [facility] 00:[facility]: d 00 [facility] No Known DA Active U 2020-09 [facility] Allergie 0-28 [place] 00:[facility]: d 00 [facility] NO KNOWN Drug Active Univers ALLERGIE Class ity of S [facility] Social History Social Habit Start Date Stop Date Quantity Comments Source History of Tobacco Common Spirit - Use [facility] Sex Assigned At Common Sp jose - [facility] Gender identity Universit y of [facility] Sexual orientation Univer sity [facility] [place] History of Social 2023-05-01 2023-05-01 Univers ity of function 00:00:00 00:00:00 [facility] Tobacco use and 2023-03-20 2023-03-20 Smokeless Universit y of exposure 00:00:00 00:00:00 tobacco non-user [facility] dical [place] Smoking Status Start Date Stop Date Source Tobacco smoking consumption [facility] Branch Never smoked tobacco [facility] Medications Ordered Filled Start Stop Current Ordering Indication Dosage Frequency Signature Comments Components Source Medication Medication Date Date Medication? Clinician (SIG) Name Name chlorthalid Yes 25mg Take 1 Univ ers one 25 mg 8-07 tablet by ity o f tablet 10:24: mouth in [place] 11 the Medical morning. Branch chlorthalid 3-0 Yes 25mg Take 1 Univ ers one 25 mg 8-07 tablet by ity o f tablet 10:24: mouth in [place] 11 the Medical morning. Branch chlorthalid 2022-0 Yes 25mg Take 1 Univ ers one 25 mg 8-07 tablet by ity o f tablet 10:24: mouth in [place] 11 the Medical morning. Branch chlorthalid 3-0 Yes 25mg Take 1 Univ ers one 25 mg 7-24 tablet by ity o f tablet 08:13: mouth in [place] 44 the Medical morning. Branch triamterene 2022-0 Yes 1{capsu Take 1 U nivers -hydrochlor 7-20 le} capsule by it y of othiazide 00:00: mouth [place] (DYAZIDE) 00 every Medical 37.5-25 mg morning. Branc h per capsule triamterene 2022-0 Yes 1{capsu Take 1 U nivers -hydrochlor 7-20 le} capsule by it y of othiazide 00:00: mouth [place] (DYAZIDE) 00 every Medical 37.5-25 mg morning. Branc h per capsule triamterene 2022-0 2022- No 1{capsu Take 1 Univers -hydrochlor 7-20 07-24 le} capsule by i ty of othiazide 00:00: 00:00 mouth [place] (DYAZIDE) 00 :00 every Medical 37.5-25 mg morning. Branc h per capsule triamterene 2022-0 2023- No 1{capsu Take 1 Univers -hydrochlor 7-20 07-20 le} capsule by i ty of othiazide 00:00: 00:00 mouth [place] (DYAZIDE) 00 :00 every Medical 37.5-25 mg morning. Branc h per capsule triamterene 2022-0 2023- No 1{capsu Take 1 Univers -hydrochlor 7-20 07-20 le} capsule by i ty of othiazide 00:00: 00:00 mouth [place] (DYAZIDE) 00 :00 every Medical 37.5-25 mg morning. Branc h per capsule sotaloL 80 3-0 2023- No 80mg Take 1 Univ ers mg tablet 7-05 07-05 tablet by ity of 14:59: 00:00 mouth in [place] 32 :00 the Medical morning Branch and 1 tablet in the evening. Pt takes 40 mg in the AM and 40 mg in PM apixaban 5 2022-0 3- No 5mg Take 1 Univ ers mg tablet 03-29- tablet by ity of 14:59: 00:00 mouth in [place] 32 :00 the [facility] and 1 tablet in the evening. sotaloL 80 3-0 2023- No 80mg Take 1 Univ ers mg tablet 03-29-05 tablet by ity of 14:59: 00:00 mouth in [place] 32 :00 the [facility] and 1 tablet in the evening. Pt takes 40 mg in the AM and 40 mg in PM apixaban 5 2022-0 2023- No 5mg Take 1 Univ ers mg tablet 03-29- tablet by ity of 14:59: 00:00 mouth in [place] 32 :00 [facility] and 1 tablet in the evening. sotaloL 80 2022-0 202- No 80mg Take 1 Univ ers mg tablet 03-29 tablet by ity of 14:59: 00:00 mouth in [place] 32 :00 the [facility] and 1 tablet in the evening. Pt takes 40 mg in the AM and 40 mg in PM apixaban 5 2022-0 3- No 5mg Take 1 Univ ers mg tablet 03-29 tablet by ity of 14:59: 00:00 mouth in [place] 32 :00 [facility] and 1 tablet in the evening. sotaloL 80 2022-0 3- No 80mg Take 1 Univ ers mg tablet 03-29 tablet by ity of 14:59: 00:00 mouth in [place] 32 :00 the [facility] and 1 tablet in the evening. Pt takes 40 mg in the AM and 40 mg in PM apixaban 5 2022-0 202- No 5mg Take 1 Univ ers mg tablet 03-29 tablet by ity of 14:59: 00:00 mouth in [place] 32 :00 [facility] and 1 tablet in the evening. sotaloL 80 2022-0 Yes [id number] 80mg Take 1 Univers mg tablet -05 tablet by ity o f 00:00: mouth in [address] and 1 tablet in the evening. Pt takes 40 mg in the AM and 40 mg in PM apixaban 5 0 Yes 1358 5mg Take 1 Unive rs mg tablet 7-05 tablet by ity o f 00:00: mouth in [place] 00 the Medical morning Branch and 1 tablet in the evening. Indication s: atrial fibrillati on apixaban 5 0 Yes 1358 5mg Take 1 Unive rs mg tablet 7-05 tablet by ity o f 00:00: mouth in [place] 00 the Medical morning Branch and 1 tablet in the evening. Indication s: atrial fibrillati on sotaloL 80 Yes [id number] 40mg Take 0.5 Univers mg tablet 7-05 tablets by ity of 00:00: mouth in [place] 00 the Medical morning Branch and 0.5 tablets in the evening. Pt takes 40 mg in the AM and 40 mg in PM apixaban 5 Yes 1358 5mg Take 1 Unive rs mg tablet 7-05 tablet by ity o f 00:00: mouth in [place] [address] the [facility] morning Branch and 1 tablet in the evening. Indication s: atrial fibrillati on sotaloL 80 Yes [id number] 40mg Take 0.5 Univers mg tablet 7-05 tablets by ity of 00:00: mouth in [place] [address] the [facility] morning Branch and 0.5 tablets in the evening. Pt takes 40 mg in the AM and 40 mg in PM apixaban 5 Yes 1358 5mg Take 1 Unive rs mg tablet 7-05 tablet by ity o f 00:00: mouth in [place] [address] the [facility] morning Branch and 1 tablet in the evening. Indication s: atrial fibrillati on sotaloL 80 Yes [id number] 40mg Take 0.5 Univers mg tablet 7-05 tablets by ity of 00:00: mouth in [place] [address] the Medical morning Branch and 0.5 tablets in the evening. Pt takes 40 mg in the AM and 40 mg in PM apixaban 5 Yes 1358 5mg Take 1 Unive rs mg tablet 7-05 tablet by ity o f 00:00: mouth in [place] [address] the Medical morning Branch and 1 tablet in the evening. Indication s: atrial fibrillati on sotaloL 80 Yes [id number] 40mg Take 0.5 Univers mg tablet 7-05 tablets by ity of 00:00: mouth in [place] [address] the Medical morning Branch and 0.5 tablets in the evening. Pt takes 40 mg in the AM and 40 mg in PM apixaban 5 2022-0 Yes 1358 5mg Take 1 Unive rs mg tablet 7-05 tablet by ity o f 00:00: mouth in [place] [address] the Medical morning Branch and 1 tablet in the evening. Indication s: atrial fibrillati on sotaloL 80 0 Yes [id number] 40mg Take 0.5 Univers mg tablet 7-05 tablets by ity of 00:00: mouth in [place] [address] the [facility] morning Branch and 0.5 tablets in the evening. Pt takes 40 mg in the AM and 40 mg in PM apixaban 5 2022-0 Yes 1358 5mg Take 1 Unive rs mg tablet 7-05 tablet by ity o f 00:00: mouth in [place] [address] the [facility] morning Branch and 1 tablet in the evening. Indication s: atrial fibrillati on sotaloL 80 0 Yes [id number] 40mg Take 0.5 Univers mg tablet 7-05 tablets by ity of 00:00: mouth in [address] morning [place] and 0.5 tablets in the evening. Pt takes 40 mg in the AM and 40 mg in PM apixaban 5 0 Yes 1358 5mg Take 1 Unive rs mg tablet 7-05 tablet by ity o f 00:00: mouth in [place] [address] the [facility] morning Branch and 1 tablet in the evening. Indication s: atrial fibrillati on sotaloL 80 0 Yes [id number] 40mg Take 0.5 Univers mg tablet 7-05 tablets by ity of 00:00: mouth in [place] [address] the [facility] morning [place] and 0.5 tablets in the evening. Pt takes 40 mg in the AM and 40 mg in PM apixaban 5 2022-0 Yes 1358 5mg Take 1 Unive rs mg tablet 7-05 tablet by ity o f 00:00: mouth in [place] [address] the [facility] morning Branch and 1 tablet in the evening. Indication s: atrial fibrillati on sotaloL 80 2022-0 Yes [id number] 40mg Take 0.5 Univers mg tablet 7-05 tablets by ity of 00:00: mouth in [address] morning [place] and 0.5 tablets in the evening. Pt takes 40 mg in the AM and 40 mg in PM apixaban 5 2023-0 Yes 1358 5mg Take 1 Unive rs mg tablet 7-05 tablet by ity o f 00:00: mouth in [place] 00 the Medical morning Branch and 1 tablet in the evening. Indication s: atrial fibrillati on sotaloL 80 2022-0 Yes [id number] 40mg Take 0.5 Univers mg tablet 7-05 tablets by ity of 00:00: mouth in [place] 00 the Medical morning Branch and 0.5 tablets in the evening. Pt takes 40 mg in the AM and 40 mg in PM sotaloL 80 2022-0 Yes [id number] 80mg Take 1 Univers mg tablet 7-05 tablet by ity o f 00:00: mouth in [place] 00 the Medical morning Branch and 1 tablet in the evening. Pt takes 40 mg in the AM and 40 mg in PM apixaban 5 0 Yes 1358 5mg Take 1 Unive rs mg tablet 7-05 tablet by ity o f 00:00: mouth in [place] 00 the Medical morning Branch and 1 tablet in the evening. Indication s: atrial fibrillati on sotaloL 80 2022-0 202- No [id number] 80mg Take 1 Univers mg tablet 7-05 07-05 tablet by ity of 00:00: 00:00 mouth in [place] 00 :00 the Medical morning Branch and 1 tablet in the evening. Pt takes 40 mg in the AM and 40 mg in PM adalimumab 2022-0 Yes inject Unive rs (HUMIRA,CF, 03-20 under the ity of [place]) 15:30: skin. [place] [address] Medical Branch dicyclomine 2022-0 Yes 10mg Take 1 Univ ers 10 mg 6-26 capsule by ity of capsule 15:30: mouth as [place] [address] needed for Medical Abdominal Branch pain. vancomycin 2022-0 Yes 500mg Take 6 mL U nivers 500 mg/6 mL 6-26 by mouth ity of oral 15:30: in the [facility] 35 morning Medical and 6 mL Branch at noon and 6 mL in the evening. metroNIDAZO 2022-0 Yes 500mg Take 1 Uni vers LE 500 mg 6-26 tablet by ity o f tablet 15:30: mouth [place] [address] every 12 Medical (twelve) Branch hours. adalimumab 2022-0 Yes inject Unive rs (HUMIRA,CF, - under the ity of [place]) 15:30: skin. [place] [address] Medical Branch dicyclomine 2023-0 Yes 10mg Take [...] the ity of [place]) 15:30: skin. [place] [address] Medical Branch dicyclomine 2023-0 Yes 10mg Take [...] the ity of [place]) 15:30: skin. [place] [address] Medical Branch dicyclomine 2023-0 Yes 10mg Take [...] the ity of [place]) 15:30: skin. [place] [address] Medical Branch dicyclomine 2023-0 Yes 10mg Take [...] the ity of [place]) 15:30: skin. [place] [address] Medical Branch dicyclomine 2023-0 Yes 10mg Take [...] the ity of [place]) 15:30: skin. [place] [address] Medical Branch dicyclomine 2023-0 Yes 10mg Take [...] the ity of [place]) 15:30: skin. [place] [address] Medical Branch dicyclomine 2023-0 Yes 10mg Take [...] the ity of [place]) 15:30: skin. [place] [address] Medical Branch dicyclomine 2023-0 Yes 10mg Take [...] the ity of [place]) 15:30: skin. [place] [address] Medical Branch dicyclomine 2023-0 Yes 10mg Take [...] the ity of [place]) 15:30: skin. [place] [address] Medical Branch dicyclomine 2023-0 Yes 10mg Take 1 Univ ers 10 mg 6-26 capsule by ity of capsule 15:30: mouth as [place] needed for Medical Abdominal Branch pain. vancomycin 2023-0 Yes 500mg Take 6 mL U nivers 500 mg/6 mL 6-26 by mouth ity of oral 15:30: in the [place] [address] morning Medical and 6 mL Branch at noon and 6 mL in the evening. metroNIDAZO 2023-0 Yes 500mg Take 1 Uni vers LE 500 mg 6-26 tablet by ity o f tablet 15:30: mouth [place] 35 every 12 Medical (twelve) Branch hours. adalimumab 2023-0 Yes inject Unive rs (HUMIRA,CF, 6-26 under the ity of [place]) 15:30: skin. [place] [address] Medical Branch dicyclomine 2023-0 Yes 10mg Take 1 Univ ers 10 mg 6-26 capsule by ity of capsule 15:30: mouth as [place] [address] needed for Medical Abdominal Branch pain. vancomycin 2023-0 Yes 500mg Take 6 mL U nivers 500 mg/6 mL 6-26 by mouth ity of oral 15:30: in the [place] [address] morning Medical and 6 mL Branch at noon and 6 mL in the evening. metroNIDAZO 2023-0 Yes 500mg Take 1 Uni vers LE 500 mg 6-26 tablet by ity o f tablet 15:30: mouth [place] every 12 Medical (twelve) Branch hours. sotaloL 80 2023-0 Yes 80mg Take 1 Unive rs mg tablet 6-26 tablet by ity o f 15:30: mouth in [place] [address] the Medical morning Branch and 1 tablet in the evening. Pt takes 40 mg in the AM and 40 mg in PM apixaban 5 2023-0 Yes 5mg Take 1 Unive rs mg tablet 6-26 tablet by ity o f 15:30: mouth in [place] [address] the Medical morning Branch and 1 tablet in the evening. adalimumab 2023-0 Yes inject Unive rs (HUMIRA,CF, 6-26 under the ity of [place]) 15:30: skin. [place] [address] Medical Branch dicyclomine 2023-0 Yes 10mg Take 1 Univ ers 10 mg 6-26 capsule by ity of capsule 15:30: mouth as [place] [address] needed for Medical Abdominal Branch pain. vancomycin 2023-0 Yes 500mg Take 6 mL U nivers 500 mg/6 mL 6-26 by mouth ity of oral 15:30: in the [place] solution 35 morning Medical and 6 mL Branch at noon and 6 mL in the evening. metroNIDAZO 2023-0 Yes 500mg Take 1 Uni vers LE 500 mg 6-26 tablet by ity o f tablet 15:30: mouth [place] [address] every 12 Medical (twelve) Branch hours. sotaloL 80 2023-0 Yes 80mg Take 1 Unive rs mg tablet 6-26 tablet by ity o f 15:30: mouth in [place] [address] the Medical morning Branch and 1 tablet in the evening. Pt takes 40 mg in the AM and 40 mg in PM apixaban 5 2022-0 Yes 5mg Take 1 Unive rs mg tablet 6-26 tablet by ity o f 15:30: mouth in [place] [address] the Medical morning Branch and 1 tablet in the evening. adalimumab 3-0 Yes inject Unive rs (HUMIRA,CF, 6-26 under the ity of [place]) 15:30: skin. [place] [address] Medical Branch dicyclomine 2023-0 Yes 10mg Take 1 Univ ers 10 mg 6-26 capsule by ity of capsule 15:30: mouth as [place] [address] needed for Medical Abdominal Branch pain. vancomycin 2023-0 Yes 500mg Take 6 mL U nivers 500 mg/6 mL 6-26 by mouth ity of oral 15:30: in the [place] solution morning Medical and 6 mL Branch at noon and 6 mL in the evening. metroNIDAZO 2023-0 Yes 500mg Take 1 Uni vers LE 500 mg 6-26 tablet by ity o f tablet 15:30: mouth [place] [address] every 12 Medical (twelve) Branch hours. adalimumab 2023-0 Yes inject Unive rs (HUMIRA,CF, 6-26 under the ity of [place]) 15:30: skin. [place] [address] Medical Branch dicyclomine 2023-0 Yes 10mg Take 1 Univ ers 10 mg 6-26 capsule by ity of capsule 15:30: mouth as [place] 35 needed for Medical Abdominal Branch pain. vancomycin Yes 500mg Take 6 mL U nivers 500 mg/6 mL 6-26 by mouth ity of oral 15:30: in the [place] solution 35 morning Medical and 6 mL Branch at noon and 6 mL in the evening. metroNIDAZO 2022-0 Yes 500mg Take 1 Uni vers LE 500 mg 6-26 tablet by ity o f tablet 15:30: mouth [place] 35 every 12 Medical (twelve) Branch hours. Kenalog 0.1 Kenalog 0.1 2021-09- No BID [...] No KIT 06-06 CD/UC/HS 00:00: 00 IPRATROPIUM 2022-0 No SPR 0.06% 9- 00:00: 00 Telmisartan Telmisartan 2022-0 No 1{table QD Telmisarta 20 MG 20 MG 8-22 t_at_be n 20 MG 00:00: dtime} 00 Telmisartan Telmisartan 2-0 No 1{table QD Telmisarta 20 MG 20 MG 8-22 t_at_be n 20 MG 00:00: dtime} 00 Dose 2022-0 No Unknown 8-12 00:00: 00 Dose 2022-0 No Unknown 8-11 00:00: 00 Dose 2022-0 No Unknown 8-01 00:00: 00 fluconazole 2022-0 No 1mg 150 mg 7-27 tablet 00:00: 00 nystatin 2022-0 No 10unit/ 100,000 7-27 mL unit/mL 00:00: oral 00 suspension Dose 2022-0 No Unknown 7-27 00:00: 00 Dose 2022-0 No Unknown 7-27 00:00: 00 Dose 2022-0 No Unknown 7-27 00:00: 00 fluconazole 2-0 No 1mg 150 mg 7-27 tablet 00:00: 00 nystatin 2022-0 No 10unit/ 100,000 7-27 mL unit/mL 00:00: oral 00 suspension Dose 2022-0 No Unknown 7-27 00:00: 00 Dose 2022-0 No Unknown 7-27 00:00: 00 Dose 2022-0 No Unknown 7-27 00:00: 00 Augmentin Augmentin 2022-0 2022- No 1{table BID Augmentin 500-125 MG 500-125 MG 7 07-13 t} 500-125 MG 00:00: 00:00 00 :00 Sudafed 12 2-0 No 1mg Hour 120 mg 6-17 tablet,exte 00:00: nded 00 release Sudafed 12 2-0 No 1mg Hour 120 mg 6-17 tablet,exte 00:00: nded 00 release guaiFENesin guaiFENesin 2-0 2022- No QID guaiFENesi -Codeine -Codeine 5-04 05-11 n-Codeine 100-10 100-10 00:00: 00:00 100-10 MG/5ML MG/5ML 00 :00 MG/5ML ProAir HFA 2021-0 No 2mcg/ac 90 01-21 tuation mcg/actuati 00:00: on aerosol 00 inhaler azithromyci 2021-0 No mg n 250 mg 01-21 tablet 00:00: 00 Dose 2022-0 No Unknown 4 [...] 4 00:00: 00 Dose 2-0 No Unknown 4- 00:00: 00 Dose 2-0 No Unknown 4- [...] 2mcg/ac 90 01-21 tuation mcg/actuati 00:00: on 00 inhaler azithromyci 2021-0 No mg n [...] Univers medications 0-09 ity of 19:54: [address] metoprolol 2020-0 No 1mg tartrate 50 8-10 mg tablet 00:00: 00 omeprazole 2020-0 No 1mg 20 mg 8-10 capsule,del 00:00: ayed 00 release metoprolol 2020-0 No 1mg tartrate 50 8-10 mg tablet 00:00: 00 omeprazole 2020-0 No 1mg 20 mg 8-10 capsule,del 00:00: ayed 00 release Flonase 50 Flonase 50 2020-0 No 2{spray [...] 8-04 t} HCl 10 MG 00:00: 00 amoxicillin 2020-0 No mg 875 8-04 mg-potassiu 00:00: m 00 clavulanate 125 mg tablet fluticasone 2020-0 No mcg/act propionate 8-04 uation 50 00:00: mcg/actuati 00 on nasal spray,suspe nsion amoxicillin 2020-0 No mg 875 8-04 mg-potassiu 00:00: m 00 clavulanate 125 mg tablet fluticasone 2020-0 No mcg/act propionate 8-04 uation 50 00:00: mcg/actuati 00 on nasal spray,suspe nsion Pantoprazol Pantoprazol 2019-0 Yes Na Lopez 1 tablet Common e Sodium e Sodium 8-10 Spirit 00:00: - [facility] 00 [facility] Ergocalcife Ergocalcife 2018-09 2020- No Na Lopez 1 capsule Common rol rol 1-18 11-10 Spirit 00:00: 00:00 - [facility] 00 :00 [facility] Paxil Paxil 2018-0 Yes Na Lopez 1 tablet Comm on 12-26 in the Spirit 00:00: morning - [facility] 00 [facility] Humira Humira Yes Na Lopez not Common defined [facility] Aspirin Aspirin Yes Na Lopez not Common defined [facility] BusPIRone BusPIRone Yes Na [place] 1 tablet Common HCl HCl [facility] Metoprolol Metoprolol Yes Na Lopez 1 tablet Common [facility] T[facility] Lage[facility]rio No 4{capsu BID [...] MG Ergocalcife Ergocalcife No 1{capsu Ergocalcif rol 35738 rol 57419 le} fortunato 82108 UNIT UNIT UNIT Gabapentin Gabapentin No 1{capsu [...] MCG/ACT Ergocalcife Ergocalcife No 1{capsu Ergocalcif rol 05480 rol 72539 le} fortunato 28635 UNIT UNIT UNIT Gabapentin Gabapentin No 1{capsu [...] MG Ergocalcife Ergocalcife No 1{capsu Ergocalcif rol 74538 rol 34689 le} fortunato 76795 UNIT UNIT UNIT Montelukast Montelukast No 1{table [...] MG t} Ergocalcife Ergocalcife No 1{capsu rol 70639 rol 79443 le} UNIT UNIT Montelukast Montelukast No 1{table [...] MG Ergocalcife Ergocalcife No 1{capsu Ergocalcif rol 47253 rol 55301 le} fortunato 21199 UNIT UNIT UNIT Montelukast Montelukast No 1{table [...] MG Ergocalcife Ergocalcife No 1{capsu Ergocalcif rol 32748 rol 44553 le} fortunato 75723 UNIT UNIT UNIT Omeprazole Omeprazole No 1{capsu [...] MG Ergocalcife Ergocalcife No 1{capsu Ergocalcif rol 08325 rol 74000 le} [place] 52114 UNIT UNIT UNIT Humira Humira No Humira [...] MG Ergocalcife Ergocalcife No 1{capsu Ergocalcif rol 52573 rol 17585 le} [place] 36097 UNIT UNIT UNIT Famotidine Famotidine No 1{table [...] MG Ergocalcife Ergocalcife No 1{capsu Ergocalcif rol 20782 rol 86928 le} fortunato 20786 UNIT UNIT UNIT busPIRone busPIRone No 1{table [...] MG Ergocalcife Ergocalcife No 1{capsu Ergocalcif rol 29286 rol 89047 le} fortunato 83464 UNIT UNIT UNIT Montelukast Montelukast No 1{table [...] MG Ergocalcife Ergocalcife No 1{capsu Ergocalcif rol 52177 rol 64628 le} fortunato 51399 UNIT UNIT UNIT Montelukast Montelukast No 1{table [...] MG Ergocalcife Ergocalcife No 1{capsu Ergocalcif rol 30299 rol 82316 le} fortunato 40694 UNIT UNIT UNIT Flonase 50 Flonase 50 [...] MG Ergocalcife Ergocalcife No 1{capsu Ergocalcif rol 06193 rol 12833 le} fortunato 63092 UNIT UNIT UNIT PARoxetine PARoxetine No PARoxetine [...] MG Ergocalcife Ergocalcife No 1{capsu Ergocalcif rol 85285 rol 36722 le} fortunato 23860 UNIT UNIT UNIT PARoxetine PARoxetine No PARoxetine [...] MG Ergocalcife Ergocalcife No 1{capsu Ergocalcif rol 94272 rol 35744 le} fortunato 47513 UNIT UNIT UNIT Aspirin 81 Aspirin 81 [...] MG Ergocalcife Ergocalcife No 1{capsu Ergocalcif rol 01868 rol 19198 le} fortunato 67266 UNIT UNIT UNIT ALPRAZolam ALPRAZolam No 1{table [...] MG Ergocalcife Ergocalcife No 1{capsu Ergocalcif rol 64124 rol 31555 le} fortunato 49351 UNIT UNIT UNIT ALPRAZolam ALPRAZolam No 1{table [...] MG Ergocalcife Ergocalcife No 1{capsu Ergocalcif rol 85131 rol 97919 le} fortunato 91472 UNIT UNIT UNIT ALPRAZolam ALPRAZolam No 1{table [...] MG Ergocalcife Ergocalcife No 1{capsu Ergocalcif rol 41550 rol 35234 le} fortunato 53704 UNIT UNIT UNIT Benzonatate Benzonatate No TID [...] MG Ergocalcife Ergocalcife No 1{capsu Ergocalcif rol 07551 rol 83395 le} fortunato 48305 UNIT UNIT UNIT Benzonatate Benzonatate No TID [...] MG Ergocalcife Ergocalcife No 1{capsu Ergocalcif rol 15765 rol 41246 le} fortunato 48828 UNIT UNIT UNIT Famotidine Famotidine No Famotidine [...] MG Ergocalcife Ergocalcife No 1{capsu Ergocalcif rol 56346 rol 15676 le} fortunato 86682 UNIT UNIT UNIT Famotidine Famotidine No Famotidine [...] MG Ergocalcife Ergocalcife No 1{capsu Ergocalcif rol 54387 rol 43673 le} fortunato 44052 UNIT UNIT UNIT Gabapentin Gabapentin No 1{capsu [...] MCG/ACT Ergocalcife Ergocalcife No 1{capsu Ergocalcif rol 72923 rol 44108 le} fortunato 07258 UNIT UNIT UNIT Gabapentin Gabapentin No 1{capsu [...] MG Ergocalcife Ergocalcife No 1{capsu Ergocalcif rol 02952 rol 07533 le} fortunato 27714 UNIT UNIT UNIT Montelukast Montelukast No Montelukas [...] MG Ergocalcife Ergocalcife No 1{capsu Ergocalcif rol 31315 rol 65391 le} fortunato 92825 UNIT UNIT UNIT Cetirizine Cetirizine No Cetirizine [...] MG Ergocalcife Ergocalcife No 1{capsu Ergocalcif rol 54407 rol 58409 le} fortunato 66905 UNIT UNIT UNIT Cetirizine Cetirizine No Cetirizine [...] MG Ergocalcife Ergocalcife No 1{capsu Ergocalcif rol 79348 rol 84098 le} fortunato 31842 UNIT UNIT UNIT Cetirizine Cetirizine No Cetirizine [...] MG Ergocalcife Ergocalcife No 1{capsu Ergocalcif rol 40301 rol 68237 le} fortunato 99180 UNIT UNIT UNIT Cetirizine Cetirizine No Cetirizine [...] MG Ergocalcife Ergocalcife No 1{capsu Ergocalcif rol 74368 rol 43601 le} fortunato 82724 UNIT UNIT UNIT Cetirizine Cetirizine No Cetirizine [...] MG Ergocalcife Ergocalcife No 1{capsu Ergocalcif rol 40077 rol 16717 le} fortunato 49675 UNIT UNIT UNIT guaiFENesin guaiFENesin No 10{ml_a [...] MG Ergocalcife Ergocalcife No 1{capsu Ergocalcif rol 57262 rol 00301 le} fortunato 81483 UNIT UNIT UNIT Meloxicam Meloxicam No Meloxicam [...] QD Paxil 20 t_in_th MG e_morni ng} Vital Signs Vital Name Observation Time Observation Value Comments Source Systolic blood 2023-05-01 15:23:00 144 mm[Hg] [facility] Diastolic blood 2023-05-01 15:23:00 89 mm[Hg] [facility] Heart rate 2023-05-01 15:23:00 75 /min [facility] Respiratory rate 2023-05-01 15:23:00 17 /min [facility] height 2023-05-01 15:23:[address] [facility] Body weight 2023-05-01 15:23:[address] [facility] BMI 2023-05-01 15:23:00 52.98 kg/m2 [facility] Oxygen saturation in 2023-05-01 15:23:00 99 /min [facility] of Arterial blood by [facility] Pulse oximetry Branch Systolic blood 2023-03-20 20:35:00 133 mm[Hg] Univer sity of pressure [facility] Diastolic blood 2023-03-20 20:35:00 94 mm[Hg] Unive rsity of pressure [facility] Heart rate 2023-03-20 20:35:00 78 /min Universi ty of [facility] Oxygen saturation in 2023-03-20 20:35:00 95 /min [facility] Arterial blood by [facility] Pulse oximetry Branch Body temperature 2023-03-20 20:33:00 36.33 Gem Univ ersity of [facility] Respiratory rate 2023-03-20 20:33:00 18 /min Univ ersity of [facility] Body height 2023-03-20 20:33:00 160 cm [facility] [place] [facility] [place] Body weight 2023-03-20 20:33:00 134.537 kg Universi ty of [facility] BMI 2023-03-20 20:33:00 52.54 kg/m2 Universi ty of [facility] height 2022-08-31 08:20:00 63 [in_i] [facility] weight 2022-08-31 08:20:00 278 [lb_av] [facility] temperature 2022-08-31 08:20:00 98.5 [degF] [facility] bmi 2022-08-31 08:20:00 49.24 kg/m2 [facility] height 2022-08-10 10:20:00 63 [in_i] Common [facility] weight 2022-08-10 10:20:00 283 [lb_av] [facility] temperature 2022-08-10 10:20:00 98.5 [degF] [facility] bmi 2022-08-10 10:20:00 50.13 kg/m2 Common S [facility] height 2022-06-22 10:20:00 63 [in_i] Common [facility] weight 2022-06-22 10:20:00 276 [lb_av] [facility] bmi 2022-06-22 10:20:00 48.89 kg/m2 [facility] S [facility] height 2022-04-26 17:00:00 63 [in_i] Common [facility] weight 2022-04-26 17:00:00 279 [lb_av] [facility] temperature 2022-04-26 17:00:00 97.9 [degF] [facility] bmi 2022-04-26 17:00:00 49.42 kg/m2 [facility] height 2022-01-05 14:00:00 63 [in_i] [facility] weight 2022-01-05 14:00:00 297 [lb_av] [facility] bmi 2022-01-05 14:00:00 52.61 kg/m2 [facility] blood pressure 2022-01-05 14:00:00 148 mm[Hg] [facility] - systolic [facility] blood pressure 2022-01-05 14:00:00 102 mm[Hg] [facility] - diastolic [facility] height 2021-12-28 16:00:00 63 [in_i] [facility] weight 2021-12-28 16:00:00 300.4 [lb_av] [facility] temperature 2021-12-28 16:00:00 97.3 [degF] [facility] bmi 2021-12-28 16:00:00 53.21 kg/m2 [facility] oximetry 2021-12-28 16:00:00 100 % [facility] respiratory rate 2021-12-28 16:00:00 18 /min Comm on [facility] blood pressure 2021-12-28 16:00:00 137 mm[Hg] Common [facility] - systolic [facility] blood pressure 2021-12-28 16:00:00 83 mm[Hg] Common [facility] - diastolic [facility] height 2021-09-28 09:40:00 63 [in_i] Common [facility] weight 2021-09-28 09:40:00 283 [lb_av] [facility] temperature 2021-09-28 09:40:00 97.9 [degF] [facility] bmi 2021-09-28 09:40:00 50.13 kg/m2 [facility] height 2021-08-02 10:00:00 63 [in_i] [facility] weight 2021-08-02 10:00:00 282.6 [lb_av] [facility] temperature 2021-08-02 10:00:00 97.0 [degF] [facility] bmi 2021-08-02 10:00:00 50.05 kg/m2 [facility] oximetry 2021-08-02 10:00:00 97 % [facility] respiratory rate 2021-08-02 10:00:00 16 /min Comm on [facility] blood pressure 2021-08-02 10:00:00 140 mm[Hg] Common [facility] - systolic [facility] blood pressure 2021-08-02 10:00:00 62 mm[Hg] Common [facility] diastolic [facility] Systolic blood 2021-07-04 00:50:00 180 mm[Hg] [facility] Diastolic blood 2021-07-04 00:50:00 110 mm[Hg] [facility]ive [facility] Heart rate 2021-07-04 00:50:00 79 /min [facility] Body temperature 2021-07-04 00:50:[address] [facility] Respiratory rate 2021-07-04 00:50:00 18 /min [facility] Body weight 2021-07-04 00:50:[address] [facility] Oxygen saturation in 2021-07-04 00:50:00 99 /min [facility] Arterial blood by [facility] Pulse oximetry Branch BP Systolic 2022-01-21 14:32:00 BP Diastolic 2022-01-21 14:32:00 Weight Measured 2022-01-21 14:32:00 276.00 pounds Height Measured 2022-01-21 14:32:00 63.00 inches Body Temperature 2022-01-21 14:32:00 Heart Rate 2022-01-21 14:32:00 Respiratory Rate 2022-01-21 14:32:00 Procedures Procedure Date / Time Performed Performing Clinician [facility] SLEEP STUDY DATA 2023-04-11 05:01:00 Doctor Unassigned, No Unive [facility] REPORT Name [facility] HB ECG ROUTINE & 2023-03-20 20:38:13 [facility] RHYTHM STRIP Medical [place] ASSIGNMENT OF BENEFITS 2023-03-20 20:13:23 Doctor Unassigned, No [facility] REFERRAL- 2023-02-02 05:01:00 Doctor Unassigned, No [facility] REQUEST/RESPONSE [facility] XR CHEST 1 VW 2021-07-04 01:14:37 Raissa Tran [facility] NOTICE OF PRIVACY 2021-07-04 00:45:31 Doctor Unassigned, No Univ [facility] PRACTICES [facility] CONSENT/REFUSAL FOR 2021-07-04 00:45:10 Doctor Unassigned, No [facility] DIAGNOSIS AND Name Medical Branch TREATMENT Plan of Care Planned Activity Planned Date Details Comments Source Goal Plan of Care Note [code = 79691-0] Goal Plan of Care Note [code = 46678-6] Goal Plan of Care Note [code = 12374-5] Goal Plan of Care Note [code = 13363-7] Goal Plan of Care Note [code = 35056-2] Goal Plan of Care Note [code = 64220-1] Goal Plan of Care Note [code = 76803-7] Goal Plan of Care Note [code = 96091-5] Goal Plan of Care Note [code = 77692-8] Goal Plan of Care Note [code = 25829-0] Goal Plan of Care Note [code = 27285-1] Goal Plan of Care Note [code = 86244-8] Goal Plan of Care Note [code = 54268-1] Goal Plan of Care Note [code = 46767-9] Goal Plan of Care Note [code = 43668-4] Goal Plan of Care Note [code = 25788-6] Encounters Start End Encounter Admission Attending Care Care Encounter Source Date/Time Date/Time Type Type Clinicians Facility Department ID 2023-02-24 Outpatient Chung, STLMLC STLMLC [id number] Common 14:59:00 Avnee [id number] [facility] 2023-01-23 Outpatient Chung, STLMLC STLMLC [id number] Common 09:09:00 Avnee [id number] [facility] 2022-12-29 Outpatient Chung, STLMLC STLMLC [id number] Common 15:24:00 Avnee [id number] [facility] 2022-12-21 Outpatient Layla, STLMLC STLMLC [id number] Common 09:47:00 Karol 74769 [facility] 2022-06-01 Outpatient Lopez, Na STLMLC STLMLC [id number] Common 09:18:00 [facility] 2022-04-13 Outpatient Lopez, Na STLMLC STLMLC [id number] Common 15:29:00 [facility] 2022-04-07 Outpatient Lopez, Na STLMLC STLMLC [id number] Common 16:07:00 [facility] 2022-01-04 Outpatient Lopez, Na STLMLC STLMLC [id number] Common 09:31:01 [facility] 2021-10-20 Outpatient Lopez, Na STLMLC STLMLC [id number] Common 14:09:55 10144 [facility] 2021-10-20 Outpatient Lopez, Na STLMLC STLMLC [id number] Common 13:47:22 76055 [facility] 2021-10-20 Outpatient Lopez, Na STLMLC STLMLC [id number] 2 Common 12:29:04 37021 [facility] 2021-10-20 Outpatient Lopez, Na STLMLC STLMLC [id number] Common 12:03:44 69416 [facility] 2021-10-20 Outpatient Lopez, Na STLMLC STLMLC [id number] Common 12:03:05 26037 [facility] 2021-10-20 Outpatient Lopez, Na STLMLC STLMLC [id number] Common 11:43:49 [id number] [facility] 2021-10-20 Outpatient Lopez, Na STLMLC STLMLC [id number] 2 Common 11:35:56 65976 [facility] 2021-10-20 Outpatient Lopez, Na STLMLC STLMLC [id number] Common 11:18:09 04218 [facility] 2021-10-20 Outpatient Lopez, Na STLMLC STLMLC [id number] 2 Common 11:04:54 [id number] [facility] 2021-10-20 Outpatient Lopez, Na STLMLC STLMLC [id number] Common 11:04:25 [id number] [facility] 2023-08-02 2023-08-02 Outpatient LUCY BOOGIE [facility] [id number] Univers 11:00:00 11:00:00 LUCY CUEVAS [facility] 2023-05-01 2023-05-01 Outpatient LUCY BOOGIE [facility] [id number] Univers 10:30:00 10:54:08 LUCY CUEVAS [facility] 2023-05-01 2023-05-01 [facility] 1.2.840.114 [id number] Univers 10:30:00 10:54:08 Visit Candy HEALTH [id number] [place] [id number] [address] OFFICE [facility] 2023-05-01 2023-05-01 Telephone Lucy Cuevas [facility] 1.2.840.114 [id number] Univers 00:00:00 00:00:00 MickAcclaimd 350.1.13.10 [place] [id number] [address] OFFICE [facility] 2023-04-20 2023-04-20 Outpatient R MAC LEWIS [facility] [id number] Univers 11:20:00 11:20:00 MAC LEWIS [facility] 2023-04-15 2023-04-15 [facility] [id number] Univers 00:00:00 00:00:00 Lico GARCIA 350.1.13.10 it[place] [id number] [address] 2023-04-13 2023-04-13 [facility]phone [facility] [id number] Univers 00:00:00 00:00:00 Lico GARCIA [id number] it[place] [id number] [address] 2023-04-11 2023-04-11 [facility] Luisa [facility] 1.2 .840.114 [id number] Univers 13:00:00 13:15:00 Visit Christina Osorio 350.1.13. 10 [place] [id number] [address] 2023-04-11 2023-04-11 Outpatient R CHRISTINA OSORIO [facility] [id number] Univers 13:00:00 13:00:00 CHRISTINA OSORIO [facility] 2023-04-11 2023-04-11 Orders Doctor TAM 1.2.840.114 [id number] Univers 00:00:00 00:00:00 Only Unassigned, VITALY 350.1.13.10 ity of [place] [facility] 4.2.7.2.686 Herman as [phone] [facility] 00[address] [place] 2023-03-29 2023-03-29 Telephone [facility] [id number] Univers 00:00:00 00:00:00 Lico GARCIA 350.1.13.10 [place] [id number] [address] 2023-03-29 2023-03-29 [facility] 1.2.035.082 [id number] Univers 00:00:00 00:00:00 Lico GARCIA 350.1.13.10 [place] [id number] [address] 2023-03-20 2023-03-20 Outpatient R [facility] [id number] Univers 15:20:00 16:49:15 LICO martinez o f [facility] 2023-03-20 2023-03-20 Office [facility] 1.2.840.114 [id number] Univers 15:20:00 16:49:15 Visit Lico GARCIA 350.1.13.10 [facility] [place] [id number] [address] 2023-03-20 2023-03-20 Orders Doctor TAM 1.2.840.114 [id number] Univers 00:00:00 00:00:00 Only Unassigned, VITALY 350.1.13.10 ity of [place] [facility] 4.2.7.2.686 Herman as [id number] [facility] 009 [place] 2023-02-02 2023-02-02 Orders Doctor TAM 1.2.840.114 [id number] Univers 00:00:00 00:00:00 Only Unassigned, VITALY 350.1.13.10 ity of [place] [facility] 4.2.7.2.686 Herman as [phone] [place] [address] Branch 2022-08-31 2022-08-31 OFFICE STLMLC STLMLC [id number] Co mmon 00:00:00 00:00:00 VISIT EST Spir it PT LEVEL 3 - [facility] 2022-08-30 2022-08-30 (TEL) STLMLC STLMLC [id number] Co mmon 00:00:00 00:00:00 [facility] 2022-08-29 2022-08-29 Outpatient SFA SFA [id number] Stef 15:26:21 15:26:21 1205 F Mohinder 2022-08-29 2022-08-29 Outpatient [id number] 00:00:00 00:00:00 Visit [id number] 2022-08-10 2022-08-10 (TEL) STLMLC STLMLC [id number] Co mmon 00:00:00 00:00:00 [facility] 2022-08-10 2022-08-10 (TEL) STLMLC STLMLC [id number] Co mmon 00:00:00 00:00:00 [facility] 2022-08-10 2022-08-10 (TEL) STLMLC STLMLC [id number] Co mmon 00:00:00 00:00:00 [facility] 2022-08-10 2022-08-10 OFFICE STLMLC STLMLC [id number] Co mmon 00:00:00 00:00:00 VISIT EST Spir it PT LEVEL 3 [facility] 2022-07-20 2022-07-20 (TEL) STLMLC STLMLC [id number] Co mmon 00:00:00 00:00:00 [facility] 2022-06-29 2022-06-29 (TEL) STLMLC STLMLC [id number] Co mmon 00:00:00 00:00:00 [facility] 2022-06-22 2022-06-22 OFFICE STLMLC STLMLC [id number] Co mmon 00:00:00 00:00:00 VISIT EST Spir it PT LEVEL 3 [facility] 2022-06-20 2022-06-20 (TEL) STLMLC STLMLC [id number] Co mmon 00:00:00 00:00:00 [facility] 2022-06-03 2022-06-03 OFFICE STLMLC STLMLC [id number] Co mmon 00:00:00 00:00:00 VISIT EST Spir it PT LEVEL 3 [facility] 2022-05-16 2022-05-16 (TEL) STLMLC STLMLC [id number] Co mmon 00:00:00 00:00:00 [facility] 2022-05-16 2022-05-16 OFFICE STLMLC STLMLC [id number] Co mmon 00:00:00 00:00:00 VISIT EST Spir it PT LEVEL 3 [facility] 2022-04-27 2022-04-27 (TEL) STLMLC STLMLC [id number] Co mmon 00:00:00 00:00:00 [facility] 2022-04-26 2022-04-26 (TEL) STLMLC STLMLC [id number] Co mmon 00:00:00 00:00:00 [facility] 2022-04-26 2022-04-26 OFFICE STLMLC STLMLC [id number] Co mmon 00:00:00 00:00:00 VISIT EST Spir it PT LEVEL 3 [facility] 2022-04-20 2022-04-20 Outpatient [id number] 00:00:00 00:00:00 Visit [id number] 2022-03-30 2022-03-30 OFFICE STLMLC STLMLC [id number] Co mmon 00:00:00 00:00:00 VISIT Spirit ESTAB PT - CHI LEVEL 4 [facility] 2022-02-14 2022-02-14 (TEL) STLMLC STLMLC [id number] Co mmon 00:00:00 00:00:00 [facility] 2022-01-27 2022-01-27 OFFICE STLMLC STLMLC [id number] Co mmon 00:00:00 00:00:00 VISIT EST Spir it PT LEVEL 3 - [facility] 2022-01-26 2022-01-26 (TEL) STLMLC STLMLC [id number] Co mmon 00:00:00 00:00:00 [facility] 2022-01-18 2022-01-18 (TEL) STLMLC STLMLC [id number] Co mmon 00:00:00 00:00:00 [facility] 2022-01-05 2022-01-05 OFFICE STLMLC STLMLC [id number] Co mmon 00:00:00 00:00:00 VISIT NEW Spir it PT LEVEL 3 - [facility] 2021-12-28 2021-12-28 OFFICE STLMLC STLMLC [id number] Co mmon 00:00:00 00:00:00 VISIT [facility] ESTAB PT - CHI LEVEL 4 [facility] 2021-11-15 2021-11-15 (TEL) STLMLC STLMLC [id number] Co mmon 00:00:00 00:00:00 [facility] 2021-11-11 2021-11-11 (TEL) STLMLC STLMLC [id number] Co mmon 00:00:00 00:00:00 Spirit [facility] 2021-09-28 2021-09-28 OFFICE STLMLC STLMLC [id number] Co mmon 00:00:00 00:00:00 VISIT [facility] ESTAB PT - CHI LEVEL 4 [facility] 2021-08-27 2021-08-27 (TEL) STLMLC STLMLC [id number] Co mmon 00:00:00 00:00:00 [facility] 2021-08-04 2021-08-04 (TEL) STLMLC STLMLC [id number] Co mmon 00:00:00 00:00:00 [facility] 2021-08-02 2021-08-02 OFFICE STLMLC STLMLC [id number] Co mmon 00:00:00 00:00:00 VISIT [facility] LEVEL 4 [facility] 2021-07-22 2021-07-22 Outpatient Vanesa Cheung HCAPM RADI LA0 [id number] [facility] 08:00:00 08:00:00 63 [facility] 2021-07-03 2021-07-03 Emergency Marc, [facility] 1.2.840.114 [id number] Univers 19:47:00 21:16:00 [facility]13.10 [facility].2[facility]7.2[facility] [id number] [place] [address] Branch 2021-07-03 2021-07-03 Emergency X [place] ERT [id number] Univers 19:47:00 19:47:00 ity [facility] 2021-06-07 2021-06-07 Outpatient STLMLC STLMLC [id number] Common 00:00:00 00:00:00 [facility] 2021-05-06 2021-05-06 Outpatient STLMLC STLMLC [id number] Common 00:00:00 00:00:00 [facility] 2021-04-28 2021-04-28 Outpatient STLMLC STLMLC [id number] Common 00:00:00 00:00:00 [facility] 2021-04-27 2021-04-27 Outpatient STLMLC STLMLC [id number] Common 00:00:00 00:00:00 [facility] 2021-03-15 2021-03-15 Outpatient STLMLC STLMLC [id number] Common 00:00:00 00:00:00 [facility] 2021-01-04 2021-01-04 Outpatient STLMLC STLMLC [id number] Common 00:00:00 00:00:00 [facility] 2020-11-03 2020-11-03 Outpatient STLMLC STLMLC [id number] Common 00:00:00 00:00:00 [facility] 2020-08-03 2020-08-03 Outpatient STLMLC STLMLC [id number] Common 00:00:00 00:00:00 [facility] 2020-05-04 2020-05-04 [id number] Common 10:10:00 10:10:00 [address] [place] [address] [place] [facility] 2020-05-01 2020-05-01 Out[facility] [id number] Common 09:40:00 09:40:00 [place] [address] [place] [facility] 2020-02-19 2020-02-19 [facility] [id number] Common 16:06:00 16:06:[address] [facility] [address] [facility] 2019-12-12 2019-12-12 Out[facility] [id number] Common 15:41:00 15:41:00 [place] [address] [place] [facility] 2019-09-16 2019-09-16 [facility] [id number] Common 14:40:00 14:40:00 [place] [address] [facility] 2019-08-15 2019-08-15 Out[facility] [id number] Common 09:27:00 09:27:00 [place] [address] [facility] 2019-08-12 2019-08-12 [facility] [id number] Common 09:00:00 09:00:00 [place] [address] [facility] 2019-07-31 2019-07-31 [facility] [id number] Common 11:46:00 11:46:00 t [place] [address] [facility] 2019-07-29 2019-07-29 [facility] [id number] Common 09:40:00 09:40:00 t [place] [address] [facility] 2019-06-02 2019-06-02 Outpatient [facility] [id number] Common 09:38:00 09:38:00 t Urgent [facility] 2019-05-31 2019-05-31 Outpatient Dolores [facility] [id number] Common 11:30:00 11:30:00 t Urgent Urgent [facility] 2018-01-19 2018-01-19 [facility] [place] [id number] Common 08:11:00 08:11:00 t [place] [address] [facility] 2018-01-18 2018-01-18 [facility] [place] [id number] Common 10:15:00 10:15:00 t [place] [address] [facility] 2017-12-26 2017-12-26 Outpatient Dolores [facility] [id number] Common 09:30:00 09:30:00 [address] [place] [address] [facility] 2008-10-21 2008-10-21 Outpatient [facility] [id number] [employer] 00:00:00 11:14:00 1 [facility] Results Test Description Test Time Test Comments Results Result Comments Source SARS-CoV-2 (COVID-19), RT-PCR/TMA 2021-12-10 07:26:55 Test Item Value Reference Range Interpretation Comme nts SARS-CoV-2 INTERPRETATION NEGATIVE SEE NOTE S ARS-CoV-2 RNA NOT (test code = 02287) DETECTED Negative results do not preclude SARS-C [...] ORDER CODE 3509. SOURCE (test code = 07561) NASOPHARYNGEAL Note: Methodology is Ro Charito Real-Time RT-PC R. The expected result or refer ence range is NEGATIVE (Not D etected). For more information reg arding COVID-19 testing to incl ude clinicalinforma tion, methodology detail, intende d use, FDA authorization a ndrecommended fact sheets for carlos ents or healthcare providers, see [facility] Announcement: S ARS-CoV-2 (COVID-19) by N AAT at URL below (note,fact shee ts are provided by method given in report:https:// www.[employer]/cl inicians/client -communications/ Alternatively, see downloadable PDF fact sheet at:https://www. [employer]/COVID- 19-RT-PCR UNLES S OTHERWISE INDICATED, ALL TESTING PERFORMED ATCLINICAL PATH [facility], [facility]. [address] [place] [address] 4 GEOSPATIAL TECHNOLOGIST: PRUDENCE SOLIS M.D. CLIA NUMBER [id number] CAP ACCREDITATION N O. [id number] SARS-CoV-2 (COVID-19) by RT-PCR (HIGH RISK)2021-12-10 00:00:00 Test Item Value Reference Range Interpretation Comments SARS-CoV-2 INTERPRETATION NEGATIVE (test code = 08357) SOURCE (test code = 89689) NASOPHARYNGEAL SARS-CoV-2 (COVID-19) by RT-PCR (HIGH RISK)2021-12-10 00:00:00 Test Item Value Reference Range Interpretation Comments SARS-CoV-2 INTERPRETATION NEGATIVE (test code = 48519) SOURCE (test code = 18554) NASOPHARYNGEAL SARS-CoV-2 (COVID-19) by RT-PCR (HIGH RISK)2021-12-10 00:00:00 Test Item Value Reference Range Interpretation Comments SARS-CoV-2 INTERPRETATION NEGATIVE (test code = 34051) SOURCE (test code = 79658) NASOPHARYNGEAL Lipid Panel w/ Chol/HDL [id number] 00:00:00 Test Item Value Reference Range Interpretation Comments Cholesterol, Total (test code = 3-3) 186 100-199 Triglycerides (test code = 2571-8) 86 0-149 HDL Cholesterol (test code = 2084-9) 59 >39 T. Chol/HDL Ratio (test code = 9830-1) 3.2 0.0-4.4 JOSÉ w/Reflex if [id number] 00:00:00 Test Item Value Reference Range Interpretation Comments JOSÉ Direct (test code = 8061-4) Negative Negative Comp. Metabolic Panel (14) ([facility])2021-08-02 00:00:00 Test Item Value Reference Range Interpretation Comments Glucose (test code = 2345-7) 75 65-99 BUN (test code = 3094-0) 10 6-24 Creatinine (test code = 2160-0) 0.74 0.57-1.00 eGFR If NonAfricn Am (test code = 97 >59 41553-3) eGFR If Africn Am (test code = 09173-5) 112 >59 BUN/Creatinine Ratio (test code = 14 06-17 3097-3) Sodium (test code = 2951-2) 141 134-144 Potassium (test code = 2823-3) 3.7 3.5-5.2 Chloride (test code = 2075-0) 102 96-106 Carbon Dioxide, Total (test code = -2028-05) Calcium (test code = 30691-5) 9.6 8.7-10.2 Protein, Total (test code = 2885-2) 8.8 6.0-8.5 Albumin (test code = 1751-7) 4.6 3.8-4.8 Globulin, Total (test code = 99735-1) 4.2 1.5-4.5 A/G Ratio (test code = 1759-0) 1.1 1.2-2.2 Bilirubin, Total (test code = 1974-2) 0.6 0.0-1.2 Alkaline Phosphatase (test code = 76 44-121 6768-6) AST (SGOT) (test code = 1920-8) 20 0-40 ALT (SGPT) (test code = 1742-6) 19 0-32 CBC With Differential/[id number] 00:00:00 Test Item Value Reference Range Interpretation [...] Granulocytes (test code = 0 Not Estab. 69850-2) Immature Grans (Abs) (test code = 0.0 0.0-0.1 76917-8) NRBC (test code = 75534-4) Hematology Comments: (test code = 52570-3) Rheumatoid Arthritis [id number] 00:00:00 Test Item Value Reference Range Interpretation Comments Rheumatoid Factor (RF) (test code = <10.0 0.0-13.9 05966-0) C-Reactive Protein, Quant (CRP)2021-08-02 00:00:00 Test Item Value Reference Range Interpretation Comments C-Reactive Protein, Quant (test code = 13 0-10 1988-01) Vitamin D, 60-Eepwuau8199-91-08 00:00:00 Test Item Value Reference Range Interpretation Comments Vitamin D, 25-Hydroxy (test code = 24.0 30.0-100.0 1988-) - CT ABD PELVIS W/[id number] 09:50:00 [facility] 1975 Sex: F Name: SHE FITZGERALD [facility] : 1975 Age/S: 46 / F [address] [facility] [place] Unit #: [id number] Loc: [place] [address] Phys: Vanesa Nunez MD Acct: [id number] Dis Date: Status: REG CLI PHONE #: [phone] Exam Date: 07/22/2021917 FAX #: Reason: CROHNS DISEASE, UNSPECIFIED, 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 There is mild diffuse thickening of the transverse colon and splenic flexure as well as the distal descending colon and upper sigmoid. There is no pericolonic inflammation. Findings may represent infectious or inflammatory colitis. 2. Status post cholecystectomy. 3. Evidence of right colonic surgery. at 0950 Reported and signed by: Sudhir Calix M.D. CC: Vanesa Nunez MD; Noemy Beang Technologist:Mukul Ryan, RT(R) CTDI: DLP: Trnscb Date/Time: 07/22/2021 (0950) t.SDR.NB16 Orig Print D/T: S: 07/22/2021 (0091) PAGE 2 Signed [id number] 08:27:00 Test Item Value Reference Range Interpretation Comments ISTAT-BUN (test code = BUNP) 8 mg/dL 8-26 N BEDSIDE [id number] 08:27:00 Test Item Value Reference Range Interpretation Comments BEDSIDE CREATININE (test code = 0.6 mg/dL 0.6-1.3 N CREATBED) SARS-COV-2 (COVID19), NAAT [ADDED]2020-10-02 00:00:00 Test Item Value Reference Range Interpretation Comments SARS-CoV-2 INTERPRETATION (test NEGATIVE code = 93622) SOURCE (test code = 42770) NOT SPECIFIED SARS-COV-2 (COVID19), NAAT [ADDED]2020-10-02 00:00:00 Test Item Value Reference Range Interpretation Comments SARS-CoV-2 INTERPRETATION (test NEGATIVE code = 14419) SOURCE (test code = 66967) NOT SPECIFIED SARS-COV-2 (COVID19), NAAT [ADDED]2020-10-02 00:00:00 Test Item Value Reference Range Interpretation Comments SARS-CoV-2 INTERPRETATION (test NEGATIVE code = 62012) SOURCE (test code = 60826) NOT SPECIFIED SARS-CoV-2 (COVID-19) by RT-PCR (HIGH RISK)2020-04-17 00:00:00 Test Item Value Reference Range Interpretation Comments SARS-CoV-2 INTERPRETATION (test NEGATIVE code = 05805) SOURCE (test code = 56768) NOT SPECIFIED SARS-CoV-2 (COVID-19) by RT-PCR (HIGH RISK)2020-04-17 00:00:00 Test Item Value Reference Range Interpretation Comments SARS-CoV-2 INTERPRETATION (test NEGATIVE code = 31442) SOURCE (test code = 57828) NOT SPECIFIED SARS-CoV-2 (COVID-19) by RT-PCR (HIGH RISK)2020-04-17 00:00:00 Test Item Value Reference Range Interpretation Comments SARS-CoV-2 INTERPRETATION (test NEGATIVE code = 40155) SOURCE (test code = 58347) NOT SPECIFIED POC, COVID 19 Antigen + Flu by SofiaPOC, COVID 19 Antigen + Flu by Jennifer Notes Date/Time Note Provider Source 2023-05-01 Formatting of this note might be differe nt from the original. Georgia Rodriguez RN [facility] 11:26:15-00:00 Images from the original note were not included. New device: choice mask, reg tubing APAP therapy pressure settin gs 5-11ylY2L with EPR:3cmH2O, Ramp time: 30 minutes, Starting pressure: 4cmH2O and heated humidification with choice mask. DME Per insurance coverage New start DME The following has been sent to the provider for completion via parachute/FAX Orders pended for [facility] Equipment [employer] co mpany Prescription for BIPAP Sleep study /data report dated - 04/11/23 Demographics - Face sheet Insurance Information Progress Notes from office visit prior to sleep study - 03/20/23 Follow up due 31-90 days following initiation of any device. T 2023-04-17 Formatting of this note might be differe nt from the original. Yesica Reyes RN [facility] 08:08:01-00:00 Spoke with patient who state s she went to the ER on Monday with severe leg cramps and nausea. She was taken off Dyazide because the leg cramps can be a side effect. She was started on chlorthalidone 2 5 mg daily. She started this medication yesterday. Her BP yesterday was 160/100. She states she does not having the swelling in hands/feet at this time. Advised her to watch BP pressure and call clinic if it continues to be elevated. Electronically signed by Yesica Reyes RN at 8:14 AM T 2023-04-15 Formatting of this note might be differe nt from the original. Eva Camargo [facility] 08:43:37-00:00 She Fitzgerald is a 48 year old female Pt is calling to let the know that her Rx med. Prescribed by the on 04/13/23 was stopped by the providers at the ED today . Electronically signed by Eva Camargo at 023 8:48 AM CDT 2023-04-14 Formatting of this note might be differe nt from the original. Jamarcus De La Paz [facility] 13:42:32-00:00 Pt has been scheduled with Dr. Osorio. Electronically signed by Jamarcus De La Paz at 1:43 PM T 2023-04-13 Formatting of this note might be differe nt from the original. Marya Ahuja MA [facility] 11:57:25-00:00 Will route to PSS for scheduling. Electronically signed by Marya Ahuja MA a t 04/13/2023 11:58 AM T 2023-04-13 [facility] 11:53:49-00:00 Also make appointment with [facility] Dr. Osorio for sleep apnea. Sleep apnea can cause swelling and high blood pressure. Electronically signed by Lico Trevizo MD at 11:53 AM T 2023-04-13 [facility] 11:41:54-00:[address] Trevizo recommendation to start the new medication and Keep BP log, patient verbalized understanding with no further questions. Sent new Rx to patient pharmacy of choice. Dr. Trevizo als o wants her to see Dr. Alessandra purdy for sleep apena, patient stated she just had her sleep stud done Monday04/10/23 Electronically signed by Marya Ahuja MA a t 04/13/2023 11:52 AM T 2023-04-13 [facility] 11:34:09-00:00 Also make appointment with [facility] Dr. Osorio for sleep apnea. Sleep apnea can cause swelling and high blood pressure. Electronically signed by Lico Trevizo MD at 11:34 AM T 2023-04-13 [facility] 11:31:59-00:00 Add Dyazide 37.5/25 mg daily . Keep BP log. Keep appointment as scheduled. Low-salt diet. Electronically signed by Lico Trevizo MD at 11:32 AM T 2023-04-13 [facility] 11:24:54-00:[address] Trevizo for further assistance Electronically signed by Marya Ahuja MA a t 04/13/2023 11:25 AM CDT 2023-04-13 Formatting of this note might be differe nt from the original. Niko Corona [facility] 10:08:51-00:00 She Fitzgerald is a 48 year old female Pt is having high blood pressure and swelling in hand and legs Please advise [phone] (home) [phone] ( work) Electronically signed by Niko Corona at 03/26 10:09 AM CDT 2023-03-20 Addended by: LICO TREVIZO MD on: 04/13/2023 11: 34 AM [facility] 15:20:00-00:00 Modules accepted: Orders Electronically signed by Lico Trevizo MD at 11:34 AM CDT
--- NOTE | 2023-05-17 17:36 | RAD REPORT ---
EXAM DESCRIPTION: RAD - Chest Single View - 05/17/2023 5:30 pm CLINICAL HISTORY: CHEST PAIN Chest pain. COMPARISON: Chest Single View dated 04/17/2023; Chest Single View dated 01/17/2023; Chest Single View dated 12/29/2022; Chest Single View dated 11/18/2022 FINDINGS: Portable technique limits examination quality. The lungs are grossly clear. The heart is upper limit of normal in size. No displaced fractures. IMPRESSION: No acute intrathoracic process suspected.
[2023-05-17 18:02] LABS: Absolute Lymphocytes (CBC) 2.4 K/uL (0.7-4.9); Hematocrit 39.2 % (36.0-45.0); Lymphocytes % 31.4 % (15.3-44.8); MCV 80.2 fL (80-100); MPV 7.9 fL (7.6-11.3); Platelets 385 thou/uL (152-406); RBC Red Blood Cell Count 4.89 M/uL (3.86-4.86)
[2023-05-17 18:28] LABS: ALT/SGPT 26 U/L (13-56); Albumin 3.7 g/dL (3.4-5.0); Alkaline Phosphatase 61 U/L (45-117); BUN Blood Urea Nitrogen 10 mg/dL (7-18); Bicarbonate 27 mEq/L (21-32); Bilirubin Total 0.3 mg/dL (0.2-1.0); Glomerular Filtration Rate 86 ml/min (=/>90); Glucose Level 94 mg/dL (74-106); Protein, Total 9.3 g/dL (6.4-8.2); Sodium Level 138 mEq/L (136-145); Troponin High Sensitivity 3.9 pg/mL (<58.9)
[2023-05-17 18:34] LABS: AST/SGOT 17 U/L (15-37); Bilirubin Direct < 0.1 mg/dL (0-0.2); Bilirubin Indirect, Calculated ND mg/dL (0.2-0.8); Magnesium 1.8 mg/dL (1.6-2.4); Potassium 3.8 mEq/L (3.5-5.1)
[2023-05-17] MEDS ORDERED: KETOROLAC 30 MG/ML INJ ONE (19:24)
[2023-05-17] MEDS ORDERED: ONDANSETRON 4 MG/2 ML VIAL ONE (19:25)
--- NOTE | 2023-05-17 20:37 | RAD REPORT ---
EXAM DESCRIPTION: CT - Stone Protocol - 05/17/2023 8:13 pm CLINICAL HISTORY: Flank pain. ABD PAIN COMPARISON: Abdomen Pelvis W Contrast dated 04/02/2023 TECHNIQUE: Axial images were obtained without oral or IV contrast. Lack of contrast limits solid org an and vascular assessment. The xgzek-px-cchy spans the entirety of the system partially obscuring uppermost abdomen and lung bases. Coronal reformatted images were obtained and reviewed. All CT scans are performed using dose optimization technique as appropriate and may include automated exposure control or mA/KV adjustment according to patient size. FINDINGS: The lower lung hyatt are clear. Cholecystectomy. Imaged portions of the liver and spleen show no suspicious findings on non-contrast imaging. The panc reas and adrenal glands are normal. No pathologic lymphadenopathy in the abdomen or pelvis. No urinary tract stones or obstructive uropathy. No bowel obstruction, free air, free fluid or abscess. Partial colectomy. Nonvisualized appendix. No significant bony abnormality. IMPRESSION: No urinary tract stones or obstructive uropathy.
--- NOTE | 2023-05-17 22:12 | EDPHYS ---
Physician Documentation [facility] Name: Dori Guardado Age: 48 yrs Sex: Female : 1975 Arrival Date: 05/17/2023 Time: 16:52 Bed 15 Private MD: ED Physician Servando Mata HPI: 05/17 21:22 This 48 yrs old Black Female presents to ER via Ambulatory with complaints of Chest kb Pain. 21:22 The patient or guardian reports chest pain that is located primarily in the anterior kb chest wall, right. Onset: just prior to arrival. The pain radiates to the right shoulder. Associated signs and symptoms: Pertinent positives: cough. The chest pain is described as a pressure, sharp. Duration: The patient or guardian reports a single episode. Modifying factors: The symptoms are alleviated by nothing. the symptoms are aggravated by nothing. Severity of pain: At its worst the pain was moderate in the emergency department the pain is unchanged. The patient has not experienced similar symptoms in the past. The patient has not recently seen a physician. Pt reports right chest pain that radiates to right scapula that began 10 min cryptanalyst. Denies shortness of breath. . Historical: - Allergies: 17:04 No Known Allergies; nj1 - PMHx: 17:04 Atrial Fib; Crohn's; Hypertension; bowel obstruction; nj1 - PSHx: 17:04 Appendectomy; section; Cholecystectomy; partial hysterectomy; nj1 - Immunization history:: Client reports having NOT received the Covid vaccine. - Social history:: Smoking status: Patient denies any tobacco usage or history of. ROS: 17:07 Constitutional: Negative for fever, chills, and weight loss. kb 17:07 Cardiovascular: Positive for chest pain, Negative for edema, orthopnea, palpitations, paroxysmal nocturnal dyspnea. 17:07 Back: Positive for pain at rest. 17:07 All other systems are negative. Exam: 17:06 Constitutional: This is a well developed, well nourished patient who is awake, alert, kb and in no acute distress. Head/Face: Normocephalic, atraumatic. ENT: Moist Mucous membranes Chest/axilla: Normal chest wall appearance and motion. Cardiovascular: Regular rate and rhythm with a normal S1 and S2. No gallops, murmurs, or rubs. No pulse deficits. Respiratory: Respirations even and unlabored. No increased work of breathing. Talking in full sentences Abdomen/GI: Soft, non-tender. No distention Skin: Warm, dry with normal turgor. Normal color. MS/ Extremity: Pulses equal, no cyanosis. Neurovascular intact. Full, normal range of motion. Neuro: Awake and alert, GCS 15, oriented to person, place, time, and situation. Moves all extremities. Normal gait. 17:06 ECG was reviewed by the Attending Physician. 17:06 Back: pain, that is moderate, of the right scapular area, significant tenderness upon exam. Vital Signs: 17:02 BP 149 / 100; Pulse 86; Resp 18; Temp 98.2(TE); Pulse Ox 100% ; Weight 127.01 kg; nj1 Height 5 ft. 3 in. ; Pain 9/10; 18:37 BP 129 / 91; Pulse 78; Resp 17 S; Pulse Ox 100% on R/A; kc6 19:15 BP 131 / 66; Pulse 75; Resp 18 S; Pulse Ox 100% on R/A; ha1 20:15 BP 124 / 82; Pulse 70; Resp 16; Pulse Ox 100% on R/A; ha1 21:00 BP 135 / 83; Pulse 69; Resp 18 S; Pulse Ox 100% on R/A; ha1 22:00 BP 121 / 87; Pulse 69; Resp 17 S; Pulse Ox 100% on R/A; ha1 17:02 Body Mass Index 49.60 (127.01 kg, 160.02 cm) nj 17:02 Pain Scale: Adult nj MDM: 16:59 Patient medically screened. kb 17:08 Data reviewed: vital signs, nurses notes. kb 19:05 ED course: Discussed findings with pt. States the pain has gone down to flank and into kb right abd. Will order CT. 21:24 Differential diagnosis: abnormal EKG, acute myocardial infarction, anxiety, coronary kb artery disease chest wall pain, gastroesophageal reflux disease (GERD). Consideration of Admission/Observation Escalation of care including admission/observation considered. escalation considered for chest pain, but troponin negative and HEART score 2. Counseling: I had a detailed discussion with the patient and/or guardian regarding the historical points, exam findings, and any diagnostic results supporting the discharge/admit diagnosis, lab results, radiology results, the need for outpatient follow up, a family practitioner, to return to the emergency department if symptoms worsen or persist or if there are any questions or concerns that arise at home. 22:12 ED course: Second troponin was not collected. Pt states the pain is gone and she is kb ready to go home. Low suspicion for cardiac related pain. Pt educated on return precautions. . 05/17 17:01 Order name: Basic Metabolic Panel; Complete Time: 18:35 kb 05/17 17:01 Order name: CBC with Diff; Complete Time: 18:05 kb 05/17 17:01 Order name: LFT's; Complete Time: 18:35 kb 05/17 17:01 Order name: Magnesium; Complete Time: 18:35 kb 05/17 17:01 Order name: Troponin HS; Complete Time: 18:35 kb 05/17 17:01 Order name: XRAY Chest (1 view); Complete Time: 17:49 kb 05/17 19:06 Order name: CT Stone Protocol; Complete Time: 20:43 kb 05/17 17:01 Order name: EKG; Complete Time: 17:02 kb 05/17 17:01 Order name: Cardiac monitoring; Complete Time: 17:56 kb 05/17 17:01 Order name: EKG - Nurse/Tech; Complete Time: 17:05 kb 05/17 17:01 Order name: IV Saline Lock; Complete Time: 17:56 kb 05/17 17:01 Order name: Labs collected and sent; Complete Time: 17:56 kb 05/17 17:01 Order name: O2 Per Protocol; Complete Time: 17:36 kb 05/17 17:01 Order name: O2 Sat Monitoring; Complete Time: 17:36 kb EC:06 Rate is 77 beats/min. Rhythm is regular. QRS [place] is Normal. TX interval is normal at kb 142 msec. QRS interval is normal at 74 msec. QT interval is normal at 434 msec. Administered Medications: 19:30 Drug: Ondansetron IVP 4 mg Route: IVP; Site: left antecubital; ha1 20:00 Follow up: Response: No adverse reaction ha1 19:35 Drug: Ketorolac IVP 15 mg Route: IVP; Site: left antecubital; ha1 20:00 Follow up: Response: No adverse reaction; Pain is decreased ha1 Disposition: 05/18 07:45 Co-signature as Attending Physician, Servando Mata MD I reviewed the patient's care rt provided by the Advanced Practice Provider and agree with the diagnosis and treatment plan. Disposition Summary: 05/17/23 22:12 Discharge Ordered Location: Home kb Condition: Stable kb Diagnosis - Chest pain, unspecified kb - Abdominal pain, Generalized kb Followup: kb - With: Emergency Department - When: As needed - Reason: Worsening of condition Followup: kb - With: Private Physician - When: 2 - 3 days - Reason: Recheck today's complaints, Continuance of care, Re-evaluation by your physician Discharge Instructions: - Discharge Summary Sheet kb - Abdominal Pain, Adult, Exqf-ez-Wfbj kb - Nonspecific Chest Pain, Adult, Qxss-xw-Jtxq kb Forms: - Medication Reconciliation Form kb - Thank You Letter kb - Antibiotic Education kb - Prescription Opioid Use kb - Patient Portal Instructions kb - Leadership Thank You Letter kb Signatures: Dispatcher [employer] EDMS Mishel Cota, TUBING ASSEMBLER-C TUBING ASSEMBLER-Cely Aguirre RN RN ha1 Servando Mata MD MD rt Noy Salas RN RN nj1 Corrections: (The following items were deleted from the chart) 05/17 22:13 21:24 Consideration of Admission/Observation Escalation of care including kb admission/observation considered. escalation considered for chest pain, but serial troponin negative and HEART score 2. kb
--- NOTE | 2023-05-17 22:12 | ER ---
Nurse's Notes [facility] Name: Dori Guardado Age: 48 yrs Sex: Female : 1975 Arrival Date: 05/17/2023 Time: 16:52 Bed 15 Private MD: Diagnosis: Chest pain, unspecified;Abdominal pain, Generalized Presentation: 05/17 17:02 Chief complaint: Patient states: chest pain, that radiates to right shoulder and back. nj1 Onset about 20 min ago while sitting. Coronavirus screen: Vaccine status: Patient reports being unvaccinated. Ebola Screen: Patient denies travel to an Ebola-affected area in the 21 days before illness onset. Initial Sepsis Screen: Does the patient meet any 2 criteria? No. Patient's initial sepsis screen is negative. Does the patient have a suspected source of infection? No. Patient's initial sepsis screen is negative. Risk Assessment: Do you want to hurt yourself or someone else? Patient reports no desire to harm self or others. Onset of symptoms was May 17, 2023 at 16:45. 17:02 Method Of Arrival: Ambulatory [facility] 17:02 Acuity: KASH 3 nj1 Historical: - Allergies: 17:04 No Known Allergies; nj1 - PMHx: 17:04 Atrial Fib; Crohn's; Hypertension; bowel obstruction; nj1 - PSHx: 17:04 Appendectomy; section; Cholecystectomy; partial hysterectomy; nj1 - Immunization history:: Client reports having NOT received the Covid vaccine. - Social history:: Smoking status: Patient denies any tobacco usage or history of. Screenin:57 [facility] ED Fall Risk Assessment (Adult) History of falling in the last 3 months, kc6 including since admission No falls in past 3 months (0 pts) Confusion or Disorientation No (0 pts) Intoxicated or Sedated No (0 pts) Impaired Gait No (0 pts) Mobility Assist Device Used No (0 pt) Altered Elimination No (0 pt) Score/Fall Risk Level 0 - 2 = Low Risk. Abuse screen: Denies threats or abuse. Denies injuries from another. Nutritional screening: No deficits noted. Tuberculosis screening: No symptoms or risk factors identified. Assessment: 17:15 General: Appears in no apparent distress. uncomfortable, obese, well groomed, Behavior kc6 is calm, cooperative, appropriate for age. Pain: Complains of pain in right low back, anterior aspect of right upper chest and right arm Pain does not radiate. Pain currently is 7 out of 10 on a pain scale. Pain began 2-3 days ago. Neuro: Level of Consciousness is awake, alert, obeys commands, Oriented to person, place, time, situation, Appropriate for age. Cardiovascular: Reports chest pain, Capillary refill < 3 seconds. Respiratory: Airway is patent Trachea midline Respiratory effort is even, unlabored, Respiratory pattern is regular, symmetrical, Denies shortness of breath. GI: No signs and/or symptoms were reported involving the gastrointestinal system. : No signs and/or symptoms were reported regarding the genitourinary system. EENT: No signs and/or symptoms were reported regarding the EENT system. Derm: No signs and/or symptoms reported regarding the dermatologic system. Skin is intact, is healthy with good turgor, Skin is pink, warm \T\ dry. Musculoskeletal: No signs and/or symptoms reported regarding the musculoskeletal system. Circulation, motion, and sensation intact. Capillary refill < 3 seconds, Range of motion: intact in all extremities. 18:15 Reassessment: Patient appears in no apparent distress at this time. No changes from kc6 previously documented assessment. Patient and/or family updated on plan of care and expected duration. Pain level reassessed. Patient is alert, oriented x 3, equal unlabored respirations, skin warm/dry/pink. 19:15 General: Appears uncomfortable, Behavior is calm, cooperative. Pain: Complains of pain ha1 in right scapular area and right arm Pain does not radiate. Pain currently is 7 out of 10 on a pain scale. Quality of pain is described as throbbing. Neuro: Level of Consciousness is awake, alert, obeys commands, Oriented to person, place, time, situation, Cardiovascular: Heart tones S1 S2 present Capillary refill < 3 seconds Patient's skin is warm and dry. Respiratory: Airway is patent Respiratory effort is even, unlabored, Respiratory pattern is regular, symmetrical. GI: No signs and/or symptoms were reported involving the gastrointestinal system. Abdomen is round non-distended. Derm: Skin is healthy with good turgor, Skin is normal. Musculoskeletal: Circulation, motion, and sensation intact. Range of motion: intact in all extremities. 20:15 Reassessment: Patient and/or family updated on plan of care and expected duration. Pain ha1 level reassessed. Patient is alert, oriented x 3, equal unlabored respirations, skin warm/dry/pink. Patient denies pain at this time. Patient states feeling better. Patient states symptoms have improved. 21:15 Reassessment: Patient and/or family updated on plan of care and expected duration. Pain ha1 level reassessed. Patient is alert, oriented x 3, equal unlabored respirations, skin warm/dry/pink. 22:15 Reassessment: Patient and/or family updated on plan of care and expected duration. Pain ha1 level reassessed. Patient is alert, oriented x 3, equal unlabored respirations, skin warm/dry/pink. Patient denies pain at this time. Patient states feeling better. Vital Signs: 17:02 BP 149 / 100; Pulse 86; Resp 18; Temp 98.2(TE); Pulse Ox 100% ; Weight 127.01 kg; nj1 Height 5 ft. 3 in. ; Pain 9/10; 18:37 BP 129 / 91; Pulse 78; Resp 17 S; Pulse Ox 100% on R/A; kc6 19:15 BP 131 / 66; Pulse 75; Resp 18 S; Pulse Ox 100% on R/A; ha1 20:15 BP 124 / 82; Pulse 70; Resp 16; Pulse Ox 100% on R/A; ha1 21:00 BP 135 / 83; Pulse 69; Resp 18 S; Pulse Ox 100% on R/A; ha1 22:00 BP 121 / 87; Pulse 69; Resp 17 S; Pulse Ox 100% on R/A; ha1 17:02 Body Mass Index 49.60 (127.01 kg, 160.02 cm) nj1 17:02 Pain Scale: Adult [facility] ED Course: 16:59 Patient arrived in ED. im 16:59 Mishel Cota FNP-C is PHCP. kb 16:59 Servando Mata MD is Attending Physician. kb 17:00 EKG completed in triage. Results shown to . nj1 17:04 Triage completed. nj1 17:04 Arm band placed on left wrist. nj1 17:32 XRAY Chest (1 view) In Process Unspecified. EDMS 17:36 Meg Pritchett, LEONA is Primary Nurse. kc6 17:57 Patient has correct armband on for positive identification. Bed in low position. Call kc6 light in reach. Side rails up X 1. Adult w/ patient. Client placed on continuous cardiac and pulse oximetry monitoring. NIBP monitoring applied. library monitor on. 17:57 Missed attempt(s): 22 gauge in right antecubital area. Inserted saline lock: 22 gauge kc6 in left antecubital area, using aseptic technique. Blood collected. Patient maintains SpO2 saturation greater than 95% on room air. 19:00 Report given to Cely Montes RN. [facility] 20:15 CT Stone Protocol In Process Unspecified. EDMS 22:21 No provider procedures requiring assistance completed. IV discontinued, intact, ha1 bleeding controlled, No redness/swelling at site. Pressure dressing applied. 22:22 Provided Education on: follow ups. ha1 Administered Medications: 19:30 Drug: Ondansetron IVP 4 mg Route: IVP; Site: left antecubital; ha1 20:00 Follow up: Response: No adverse reaction ha1 19:35 Drug: Ketorolac IVP 15 mg Route: IVP; Site: left antecubital; ha1 20:00 Follow up: Response: No adverse reaction; Pain is decreased ha1 Medication: 22:22 VIS not applicable for this client. ha1 Outcome: 22:12 Discharge ordered by . danny 22:21 Discharged to home ambulatory, with family. ha1 22:21 Condition: stable 22:21 Discharge instructions given to patient, Instructed on discharge instructions, follow up and referral plans. Demonstrated understanding of instructions, follow-up care. 22:23 Patient left the ED. ha1 Signatures: Dispatcher [employer] EDMS Mishel Cota, [employer]ER-C CA[employer] GRINDER-Cely Aguirre RN RN ha1 Meg Pritchett RN RN kc6 Noy Salas RN RN nj1 Lakia Jin
[2023-05-17 22:52] VITALS: TEMP 98.2; O2SAT 100
[2023-05-17 23:00] VITALS: BP 121/87
--- NOTE | 2023-05-18 12:38 | EKG ---
Test Date: 2023-05-17 Test Time: 17:00:51 Ct Manager: LUISA MEASUREMENT RESULTS: Intervals: Rate: 77 FL: 142 QRSD: 74 QT: 384 QTc: 434 [place]: P: 40 FL: 142 QRS: -6 T: 24 INTERPRETIVE STATEMENTS: Normal sinus rhythm Normal ECG Compared to ECG 04/17/2023 00:44:47 Myocardial infarct finding no longer present Electronically Signed On 05-18-23 12:37:00 CDT by Avery Holt
== END 2023-05-17 22:23 | disposition home or self-care (01) ==
LOC: ER 16:52
DX: R07.89 Other chest pain (principal); R10.84 Generalized abdominal pain; I10 Essential (primary) hypertension; I48.91 Unspecified atrial fibrillation
CPT/HCPCS: 85025; 80048; 36415; 83735; 80076; 84484; 76377; 74176; 71045; J2405; 93005

== ENCOUNTER 2023-06-14 21:17 | Emergency (ER) | payer OTHER ==
--- OUTSIDE RECORDS SUMMARY | 2023-06-14 21:30 | XMS REPORT | Continuity of Care Document ---
:1975 Author Organization [facility] t Address [address] [facility] [address] [place] [address] Care Team Providers Name Role Phone Tramaine Lynch Primary Care Physician Taylor Chung Attending Clinician Unavailable Karol Rich Attending Clinician Unavailable Noemy Lopez Attending Clinician Unavailable LICO TREVIZO Attending Clinician Unavailable LUCY CUEVAS Attending Clinician Unavailable LUCY CUEVAS Attending Clinician Unavailable CHRISTINA OSORIO Attending Clinician Unavailable CHRISTINA OSORIO Attending Clinician Unavailable Justo Maurer Attending Clinician JUSTO MAURER Attending Clinician Unavailable MAC LEWIS Attending Clinician Unavailable MAC LEWIS Attending Clinician Unavailable Lico Trevizo MD Attending Clinician [facility] Attending Clinician Unavailable Christina Osorio MD Attending Clinician Doctor Unassigned, [place] Attending Clinician Unavailable Vanesa Nunez Attending Clinician Unavailable Raissa Tran DO Attending Clinician Noemy Lopez Admitting Clinician Unavailable Payers Payer Name Policy Type Policy Number Effective Date Expiration Date S ildefonso [facility] [id number] 2020 HEALTH CHOICE 00:00:00 [place] [address] [id number] 2020 Common Spiri t Health Choice 00:00:00 - [facility] [place] [address] [id number] 2020 Common Spiri t Health Choice 00:00:[address] [facility] [place] [address] [id number] 2020 Common Spiri t Health Choice 00:00:[address] [facility] Problems Condition Condition Condition Status Onset Resolution Last Treating Co mments Source Name Details Category Date Date Treatment Clinician Date AFIB/I48.0 AFIB/I48. Diagnosis Active 2023-05-30 Memoria 0 Active 04-18 09:01:00 l 04/18/2023 00:00: Nain muñoz 00 [facility] [id number] Microcytic Problem Co mmon anemia [facility] [id number] [place], [place] [address] joint, [facility] knee, - [facility] right [facility] [id number] Sinusitis, Problem Com mon maxillary, Spirit chronic [facility] [id number] Recurrent Problem Com mon falls [facility] [id number] Balance Problem Commo n problem [facility] Morbid Obesity, Problem Common obesity morbid, Spirit BMI 50 or - [facility]I higher [facility] [id number] Crohn's Problem Commo n disease in [facility] remission [facility] Iron Iron Problem Common deficiency deficiency Sp jose anemia anemia, - CHI unspecifie [facility] iron [facility] deficiency Medica l anemia Center type [id number] Adult Problem Common general [facility] medical [facility] exam [facility] [id number] Hematuria, Problem Com mon unspecifie Spirit d [facility] [id number] Multiple Problem Commo n joint pain Spirit [facility] [id number] Urinary Problem Common tract Spirit infection, - [facility]I site not [facility] [id number] BMI Problem Common 50.0-59.9, Spirit adult - [facility] [id number] Vitamin D Problem Comm on deficiency [facility] [id number] Grieving Problem Comm on Spirit [facility] [id number] Seasonal Problem Comm on allergic Spirit rhinitis, - CHI unspecifie d [facility] [id number] Abdominal Problem Com mon bloating [facility] [id number] Seasonal Problem Commo n allergic Spirit rhinitis - [facility]I due to [facility] Mixed Depression Problem Commo n anxiety with Spirit and anxiety - CHI depressive [facility] [id number] Other Problem Common chronic Spirit pain - [facility] [id number] Esophageal Problem Com mon stricture [facility] Gastroesop Gastroeso Problem Active 2023-05-30 Memoria hageal phageal 00:40:15 l reflux reflux [place] disease disease (disorder) (disorder) Active Problem 05/30/2023 [facility] Hypertensi Hypertens Problem Active 2023-05-30 Memoria ve papo 00:40:15 l disorder, disorder, Herm erich systemic systemic arterial arterial (disorder) (disorder) Active Problem 05/30/2023 [facility] Rheumatoid Rheumatoi Problem Active 2023-05-30 Memoria arthritis d 00:40:15 l (disorder) arthritis Her dumont (disorder) Active Problem 05/30/2023 [facility] Sleep Sleep Problem Active 2023-05-30 Delvis dayanna apnea apnea 00:40:15 l (finding) (finding) Herm erich Active Problem 05/30/2023 [facility] PAROXYSMAL PAROXYSMA Diagnosis Active 2023-05-30 Memoria ATRIAL L ATRIAL 09:01:00 l FIBRILLATI FIBRILLATI He rmann ON ON Active [facility] Atrial Atrial Problem Active 2023-05-30 Delvis dayanna fibrillati fibrillati 00:40:15 l on on [place] (disorder) (disorder) Active Problem 05/30/2023 [facility] Crohn's Crohn's Problem Active 2023-05-30 Me moria disease disease 00:40:15 l (disorder) (disorder) He rmann Active Problem 05/30/2023 [facility] No known No known Disease Unive rs active active ity of problems problems [facility] Allergies, Adverse Reactions, Alerts Allergy Allergy Status Severity Reaction(s) Onset Inactive Treating Comm ents Source Name Type Date Date Clinician No Known DA Active U 2020-09 [facility] Allergie 0-28 [place] s 00:00: d 00 [facility] No Known DA Active U 2020-09 [facility] Allergie 0-28 [place] s 00:00: d 00 [facility] No Known No Known Active Memori a Medicati Medicati l on on [place] Allergie Allergie s NKFA NKFA Active Memoria l [place] NO KNOWN Drug Active Univers ALLERGIE Class ity of S [facility] Social History Social Habit Start Date Stop Date Quantity Comments Source History of Tobacco Common Spirit - Use [facility] Sex Assigned At Common Sp jose - [facility] Gender identity [facility] History of Social 2023-05-01 2023-05-01 Univers ity of function 00:00:00 00:00:00 [facility] Tobacco use and 2023-03-20 2023-03-20 Smokeless Universit y of exposure 00:00:00 00:00:00 tobacco non-user [facility] Smoking Status Start Date Stop Date Source Tobacco smoking consumption Univ [facility] Tobacco smoking status [facility] Medications Ordered Filled Start Stop Current Ordering Indication Dosage Frequency Signature Comments Components Source Medication Medication Date Date Medication? Clinician (SIG) Name Name sucralfate Yes 1 gm = 1 Mem oria 1 g oral 9-02 tab, PO, l tablet 15:33: BID-Before [place] 00 Meals, # 28 tab, 0 Refill(s) levocetiriz Yes 5 mg = 1 Me moria ine 5 mg 8-23 tab, PO, l oral tablet 14:44: PRN, PRN He rm Allergies famotidine Yes 40 mg = 1 Me moria 40 mg oral 8-23 tab, PO, l tablet 14:44: Bedtime [place] 00 omeprazole 2023-0 Yes 40 mg = 1 Me moria 40 mg oral 8-23 cap, PO, l delayed 14:44: QAM [place] release 00 capsule Eliquis 5 2022-0 Yes 5 mg, PO, Mem oria mg oral 8-23 Q12H, For l tablet 14:43: Atrial [place] 00 Fibrilatio n sulfaSALAzi 2022-0 Yes 1,000 mg = Memoria ne 500 mg 8-23 2 tab, PO, l oral tablet 14:42: BID Nain n 00 sotalol 80 2022-0 Yes 80 mg = 1 Me moria mg oral 8-23 tab, PO, l tablet 14:42: BID [place] 00 chlorthalid 2022-0 Yes 25mg Take 1 Univ ers one 25 mg 8-07 tablet by ity o f tablet 10:24: mouth in [place] [address] the Medical morning. Branch chlorthalid 2022-0 Yes 25mg Take 1 Univ ers one 25 mg 8-07 tablet by ity o f tablet 10:24: mouth in [place] 11 the Medical morning. Branch chlorthalid 2022-0 Yes 25mg Take 1 Univ ers one 25 mg 8-07 tablet by ity o f tablet 10:24: mouth in [place] 11 the Medical morning. Branch chlorthalid 2022-0 Yes 25mg Take 1 Univ ers one 25 mg 7-24 tablet by ity o f tablet 08:13: mouth in [place] [address] the Medical morning. Branch triamterene 2022-0 Yes 1{capsu Take 1 U nivers -hydrochlor 7-20 le} capsule by it y of othiazide 00:00: mouth [place] (DYAZIDE) 00 every Medical 37.5-25 mg morning. Branc h per capsule triamterene 2022-0 Yes 1{capsu Take 1 U nivers -hydrochlor 7-20 le} capsule by it y of othiazide 00:00: mouth [place] (DYAZIDE) 00 every Medical 37.5-25 mg morning. Branc h per capsule triamterene 2022-0 2022- No 1{capsu Take 1 Univers -hydrochlor 7-20 07-24 le} capsule by i ty of othiazide 00:00: 00:00 mouth [place] (DYAZIDE) 00 :00 every Medical 37.5-25 mg morning. Branc h per capsule triamterene 20222022- No 1{capsu Take 1 Univers -hydrochlor 7-20 07-20 le} capsule by i ty of othiazide 00:00: 00:00 mouth [place] (DYAZIDE) 00 :00 every Medical 37.5-25 mg morning. Branc h per capsule triamterene 2022- No 1{capsu Take 1 Univers -hydrochlor 7-20 07-20 le} capsule by i ty of othiazide 00:00: 00:00 mouth [place] (DYAZIDE) 00 :00 every Medical 37.5-25 mg morning. Branc h per capsule sotaloL 80 2022- No 80mg Take 1 Univ ers mg tablet -01 29-05 tablet by ity of 14:59: 00:00 mouth in [place] 32 :00 [facility] and 1 tablet in the evening. Pt takes 40 mg in the AM and 40 mg in PM apixaban 5 2022-2022- No 5mg Take 1 Univ ers mg tablet -01 29-05 tablet by ity of 14:59: 00:00 mouth in [place] 32 :00 [facility] and 1 tablet in the evening. sotaloL 80 2022-2022- No 80mg Take 1 Univ ers mg tablet -01 29-05 tablet by ity of 14:59: 00:00 mouth in [place] 32 :00 [facility] and 1 tablet in the evening. Pt takes 40 mg in the AM and 40 mg in PM apixaban 5 2022-0 2022- No 5mg Take 1 Univ ers mg tablet 03-29-05 tablet by ity of 14:59: 00:00 mouth in [place] 32 :00 [facility] and 1 tablet in the evening. sotaloL 80 0 2022- No 80mg Take 1 Univ ers mg tablet - 07-05 tablet by ity of 14:59: 00:00 mouth in [place] 32 :00 [facility] and 1 tablet in the evening. Pt takes 40 mg in the AM and 40 mg in PM apixaban 5 2022-0 2022- No 5mg Take 1 Univ ers mg tablet - 07-05 tablet by ity of 14:59: 00:00 mouth in [place] 32 :00 [facility] and 1 tablet in the evening. sotaloL 80 2022-0 2022- No 80mg Take 1 Univ ers mg [...] in the evening. sotaloL 80 2022-0 Yes [id number] 80mg Take 1 Univers mg tablet 7-05 tablet by ity o f 00:00: mouth in [place] 00 the Medical morning Branch and 1 tablet in the evening. Pt takes 40 mg in the AM and 40 mg in PM apixaban 5 2022-0 Yes 1358 5mg Take 1 Unive rs mg tablet 7-05 tablet by ity o f 00:00: mouth in [place] [address] the [facility] morning Branch and 1 tablet in the evening. Indication s: atrial fibrillati on apixaban 5 2022-0 Yes 1358 5mg Take 1 Unive rs mg tablet 7-05 tablet by ity o f 00:00: mouth in [place] [address] the [facility] morning Branch and 1 tablet in the evening. Indication s: atrial fibrillati on sotaloL 80 0 Yes [id number] 40mg Take 0.5 Univers mg tablet 7-05 tablets by ity of 00:00: mouth in [place] [address] the [facility] morning Branch and 0.5 tablets in the evening. Pt takes 40 mg in the AM and 40 mg in PM apixaban 5 2022-0 Yes 1358 5mg Take 1 Unive rs mg tablet 7-05 tablet by ity o f 00:00: mouth in [place] [address] the [facility] morning Branch and 1 tablet in the evening. Indication s: atrial fibrillati on sotaloL 80 2022-0 Yes [id number] 40mg Take 0.5 Univers mg tablet 7-05 tablets by ity of 00:00: mouth in [place] [address] the [facility] morning Branch and 0.5 tablets in the evening. Pt takes 40 mg in the AM and 40 mg in PM apixaban 5 2022-0 Yes 1358 5mg Take 1 Unive rs mg tablet 7-05 tablet by ity o f 00:00: mouth in [place] 00 the Medical morning Branch and 1 tablet in the evening. Indication s: atrial fibrillati on sotaloL 80 2022-0 Yes [id number] 40mg Take 0.5 Univers mg tablet 7-05 tablets by ity of 00:00: mouth in [place] [address] the Medical morning Branch and 0.5 tablets in the evening. Pt takes 40 mg in the AM and 40 mg in PM apixaban 5 2022-0 Yes 1358 5mg Take 1 Unive rs mg tablet 7-05 tablet by ity o f 00:00: mouth in [place] [address] the [facility] morning Branch and 1 tablet in the evening. Indication s: atrial fibrillati on sotaloL 80 2022-0 Yes [id number] 40mg Take 0.5 Univers mg tablet 7-05 tablets by ity of 00:00: mouth in [place] [address] the [facility] morning [place] and 0.5 tablets in the evening. Pt takes 40 mg in the AM and 40 mg in PM apixaban 5 2022-0 Yes 1358 5mg Take 1 Unive rs mg tablet 7-05 tablet by ity o f 00:00: mouth in [address] morning [place] and 1 tablet in the evening. Indication s: atrial fibrillati on sotaloL 80 0 Yes [id number] 40mg Take 0.5 Univers mg tablet 7-05 tablets by ity of 00:00: mouth in [place] [address] the [facility] morning [place] and 0.5 tablets in the evening. Pt takes 40 mg in the AM and 40 mg in PM apixaban 5 2022-0 Yes 1358 5mg Take 1 Unive rs mg tablet 7-05 tablet by ity o f 00:00: mouth in [address] morning [place] and 1 tablet in the evening. Indication s: atrial fibrillati on sotaloL 80 2022-0 Yes [id number] 40mg Take 0.5 Univers mg tablet 7-05 tablets by ity of 00:00: mouth in [place] [address] the [facility] morning [place] and 0.5 tablets in the evening. Pt takes 40 mg in the AM and 40 mg in PM apixaban 5 2022-0 Yes 1358 5mg Take 1 Unive rs mg tablet 7-05 tablet by ity o f 00:00: mouth in [address] morning Branch and 1 tablet in the evening. Indication s: atrial fibrillati on sotaloL 80 Yes [id number] 40mg Take 0.5 Univers mg tablet 7-05 tablets by ity of 00:00: mouth in [place] 00 the Medical morning Branch and 0.5 tablets in the evening. Pt takes 40 mg in the AM and 40 mg in PM apixaban 5 2022-0 Yes 1358 5mg Take 1 Unive rs mg tablet 7-05 tablet by ity o f 00:00: mouth in [place] 00 the Medical morning Branch and 1 tablet in the evening. Indication s: atrial fibrillati on sotaloL 80 Yes [id number] 40mg Take 0.5 Univers mg tablet 7-05 tablets by ity of 00:00: mouth in [place] 00 the Medical morning Branch and 0.5 tablets in the evening. Pt takes 40 mg in the AM and 40 mg in PM apixaban 5 Yes 1358 5mg Take 1 Unive rs mg tablet 7-05 tablet by ity o f 00:00: mouth in [place] 00 the Medical morning Branch and 1 tablet in the evening. Indication s: atrial fibrillati on sotaloL 80 Yes [id number] 40mg Take 0.5 Univers mg tablet 7-05 tablets by ity of 00:00: mouth in [place] 00 the Medical morning Branch and 0.5 tablets in the evening. Pt takes 40 mg in the AM and 40 mg in PM sotaloL 80 Yes [id number] 80mg Take 1 Univers mg tablet 7-05 tablet by ity o f 00:00: mouth in [place] 00 the Medical morning Branch and 1 tablet in the evening. Pt takes 40 mg in the AM and 40 mg in PM apixaban 5 Yes 1358 5mg Take 1 Unive rs mg tablet 7-05 tablet by ity o f 00:00: mouth in [place] 00 the Medical morning Branch and 1 tablet in the evening. Indication s: atrial fibrillati on sotaloL 80 2022-0 2022- No [id number] 80mg Take 1 Univers mg tablet 7-05 07-05 tablet by ity of 00:00: 00:00 mouth in [place] 00 :00 the Medical morning Branch and 1 tablet in the evening. Pt takes 40 mg in the AM and 40 mg in PM adalimumab Yes inject Unive rs (ANGELA,GABBY, 6 under the ity of [place]) 15:30: skin. [place] [address] Medical Branch dicyclomine 2023-0 Yes 10mg Take [...] the ity of [place]) 15:30: skin. [place] [address] Medical Branch dicyclomine 2023-0 Yes 10mg Take [...] the ity of [place]) 15:30: skin. [place] [address] Medical Branch dicyclomine 2023-0 Yes 10mg Take [...] the ity of [place]) 15:30: skin. [place] [address] Medical Branch dicyclomine 2023-0 Yes 10mg Take [...] the ity of [place]) 15:30: skin. [place] [address] Medical Branch dicyclomine 2023-0 Yes 10mg Take [...] the ity of [place]) 15:30: skin. [place] [address] Medical Branch dicyclomine 2023-0 Yes 10mg Take [...] the ity of [place]) 15:30: skin. [place] [address] Medical Branch dicyclomine 2023-0 Yes 10mg Take [...] the ity of [place]) 15:30: skin. [place] [address] Medical Branch dicyclomine 2023-0 Yes 10mg Take [...] the ity of [place]) 15:30: skin. [place] [address] Medical Branch dicyclomine 2023-0 Yes 10mg Take [...] the ity of [place]) 15:30: skin. [place] [address] Medical Branch dicyclomine 2023-0 Yes 10mg Take [...] the ity of [place]) 15:30: skin. [place] [address] Medical Branch dicyclomine 2023-0 Yes 10mg Take [...] the ity of [place]) 15:30: skin. [place] [address] Medical Branch dicyclomine 2023-0 Yes 10mg Take [...] by ity o f tablet 15:30: mouth [place] [address] every 12 Medical (twelve) Branch hours. sotaloL 80 2023-0 Yes 80mg Take 1 Unive rs mg tablet 6-26 tablet by ity o f 15:30: mouth in [place] [address] the Medical morning Branch and 1 tablet in the evening. Pt takes 40 mg in the AM and 40 mg in PM apixaban 5 2023-0 Yes 5mg Take 1 Unive rs mg tablet 6-26 tablet by ity o f 15:30: mouth in [place] [address] the Medical morning Branch and 1 tablet in the evening. adalimumab 2023-0 Yes inject Unive rs (HUMIRA,CF, 6-26 under the ity of [place]) 15:30: skin. [address] dicyclomine 2023-0 Yes 10mg Take 1 Univ ers 10 mg 6-26 capsule by ity of capsule 15:30: mouth as [place] [address] needed for Medical Abdominal Branch pain. vancomycin 2023-0 Yes 500mg Take 6 mL U nivers 500 mg/6 mL 6-26 by mouth ity of oral 15:30: in the [place] [address] morning Medical and 6 mL Branch at noon and 6 mL in the evening. metroNIDAZO 2023-0 Yes 500mg Take 1 Uni vers LE 500 mg 6-26 tablet by ity o f tablet 15:30: mouth [place] [address] every 12 Medical (twelve) Branch hours. sotaloL 80 2023-0 Yes 80mg Take 1 Unive rs mg tablet 6-26 tablet by ity o f 15:30: mouth in [place] [address] the Medical morning Branch and 1 tablet in the evening. Pt takes 40 mg in the AM and 40 mg in PM apixaban 5 2023-0 Yes 5mg Take 1 Unive rs mg tablet 6-26 tablet by ity o f 15:30: mouth in [place] [address] the Medical morning Branch and 1 tablet in the evening. adalimumab 2023-0 Yes inject Unive rs (HUMIRA,CF, 6-26 under the ity of [place]) 15:30: skin. [place] [address] Medical Branch dicyclomine 2023-0 Yes 10mg Take 1 Univ ers 10 mg 6-26 capsule by ity of capsule 15:30: mouth as [place] 35 needed for Medical Abdominal Branch pain. vancomycin 3-0 Yes 500mg Take 6 mL U nivers [...] adalimumab 2022-0 Yes inject Unive rs (HUMIRA,CF, 6-26 under the ity of [place]) 15:30: skin. [place] 35 Medical Branch dicyclomine 2022-0 Yes 10mg Take 1 Univ ers 10 mg 6-26 capsule by ity of capsule 15:30: mouth as [place] 35 needed for Medical Abdominal Branch pain. vancomycin 3-0 Yes 500mg Take 6 mL U nivers 500 mg/6 mL 6-26 by mouth ity of oral 15:30: in the [place] solution 35 morning Medical and 6 mL Branch at noon and 6 mL in the evening. metroNIDAZO 3-0 Yes 500mg Take 1 Uni vers LE 500 mg 6-26 tablet by ity o f tablet 15:30: mouth [place] 35 every 12 Medical (twelve) Branch hours. [...] SPR 0.06% 05-26 00:00: 00 Telmisartan Telmisartan 0 No 1{table QD Telmisarta 20 MG 20 MG 8-22 t_at_be n 20 MG 00:00: dtime} 00 Telmisartan Telmisartan 2021-0 No 1{table QD Telmisarta 20 MG 20 MG 8-22 t_at_be n 20 MG 00:00: dtime} 00 Dose 2021-0 No Unknown 8-12 00:00: 00 Dose 2021-0 No Unknown 8-11 00:00: 00 Dose 2021-0 No Unknown 8-01 00:00: 00 fluconazole 2021-0 No 1mg 150 mg 7-27 tablet 00:00: 00 nystatin 2-0 No 10unit/ 100,000 7-27 mL unit/mL 00:00: oral 00 suspension Dose 2021-0 No Unknown 7-27 00:00: 00 Dose 2-0 No Unknown 7-27 00:00: 00 Dose 2-0 No Unknown 7-27 00:00: 00 fluconazole 2021-0 No 1mg 150 mg 7-27 tablet 00:00: 00 nystatin 2021-0 No 10unit/ 100,000 7-27 mL unit/mL 00:00: oral 00 suspension Dose 2021-0 No Unknown 7-27 00:00: 00 Dose 2-0 No Unknown 7-27 00:00: 00 Dose 2022-0 No Unknown 7-27 00:00: 00 Augmentin Augmentin 2021-0 2- No 1{table BID Augmentin 500-125 MG 500-125 [...] MG/5ML ProAir HFA 2021-0 No 2mcg/ac 90 4-29 [...] Azithromyc n 250 MG n 250 MG -12 24- in 250 MG 00:00: 00:00 00 :00 No known 1-1 No Univers medications 0-09 ity of 19:54: [address] metoprolol 1-0 No 1mg tartrate 50 8-10 mg tablet 00:00: 00 omeprazole 1-0 No 1mg 20 mg 8-10 capsule,del 00:00: ayed 00 release metoprolol 1-0 No 1mg tartrate 50 8-10 mg tablet 00:00: 00 omeprazole 1-0 No 1mg 20 mg 8-10 capsule,del 00:00: ayed 00 release Flonase 50 Flonase 50 1-0 No 2{spray QD Flonase 50 MCG/ACT MCG/ACT 04 _in_eac MCG/ACT 00:00: h_nostr 00 il} Cetirizine [...] mcg/actuati 00 on nasal spray,suspe nsion amoxicillin 0 No mg 875 8-04 mg-potassiu 00:00: m 00 clavulanate 125 mg tablet fluticasone 0 No mcg/act propionate 8-04 uation 50 00:00: mcg/actuati 00 on nasal spray,suspe nsion Pantoprazol Pantoprazol Yes Na Lopez 1 tablet Common e Sodium e Sodium 05-04 Spirit 00:00: - [facility] 00 [facility] Ergocalcife Ergocalcife 2018-2019- No Na Lopez 1 capsule Common rol rol -18 11-10 Spirit 00:00: 00:00 - CHI 00 :00 [facility] Paxil Paxil Yes Na Lopez 1 tablet Comm on 12-26 in the Spirit 00:00: morning - [facility]I 00 [facility] Humira Humira Yes Na Lopez not Common defined [facility] Aspirin Aspirin Yes Na Lopez not Common defined [facility] BusPIRone BusPIRone Yes Na Lopez 1 tablet Common HCl HCl [facility] Metoprolol Metoprolol Yes Na Lopez 1 tablet Common Tartrate T[facility] L[facility] Lagevrio No 4{capsu BID [...] MG Ergocalcife Ergocalcife No 1{capsu Ergocalcif rol 44729 rol 87758 le} fortunato 19127 UNIT UNIT UNIT Gabapentin Gabapentin No 1{capsu [...] MCG/ACT Ergocalcife Ergocalcife No 1{capsu Ergocalcif rol 85741 rol 74275 le} fortunato 08618 UNIT UNIT UNIT Gabapentin Gabapentin No 1{capsu [...] MG Ergocalcife Ergocalcife No 1{capsu Ergocalcif rol 13158 rol 69415 le} fortunato 88460 UNIT UNIT UNIT Montelukast Montelukast No 1{table [...] MG t} Ergocalcife Ergocalcife No 1{capsu rol 84916 rol 53227 le} UNIT UNIT Montelukast Montelukast No 1{table [...] MG Ergocalcife Ergocalcife No 1{capsu Ergocalcif rol 36671 rol 18253 le} fortunato 06152 UNIT UNIT UNIT Montelukast Montelukast No 1{table [...] MG Ergocalcife Ergocalcife No 1{capsu Ergocalcif rol 47976 rol 83845 le} fortunato 78760 UNIT UNIT UNIT Omeprazole Omeprazole No 1{capsu [...] MG Ergocalcife Ergocalcife No 1{capsu Ergocalcif rol 22830 rol 92283 le} fortunato 04411 UNIT UNIT UNIT Humira Humira No Humira [...] MG Ergocalcife Ergocalcife No 1{capsu Ergocalcif rol 14427 rol 11298 le} fortunato 46820 UNIT UNIT UNIT Famotidine Famotidine No 1{table [...] MG Ergocalcife Ergocalcife No 1{capsu Ergocalcif rol 22422 rol 15980 le} fortunato 45317 UNIT UNIT UNIT busPIRone busPIRone No 1{table [...] MG Ergocalcife Ergocalcife No 1{capsu Ergocalcif rol 71905 rol 30649 le} fortunato 90310 UNIT UNIT UNIT Montelukast Montelukast No 1{table [...] MG Ergocalcife Ergocalcife No 1{capsu Ergocalcif rol 06289 rol 09692 le} fortunato 89267 UNIT UNIT UNIT Montelukast Montelukast No 1{table [...] MG Ergocalcife Ergocalcife No 1{capsu Ergocalcif rol 61393 rol 20362 le} fortunato 51919 UNIT UNIT UNIT Flonase 50 Flonase 50 [...] MG Ergocalcife Ergocalcife No 1{capsu Ergocalcif rol 91124 rol 74302 le} fortunato 35108 UNIT UNIT UNIT PARoxetine PARoxetine No PARoxetine [...] MG Ergocalcife Ergocalcife No 1{capsu Ergocalcif rol 00065 rol 21918 le} fortunato 51182 UNIT UNIT UNIT PARoxetine PARoxetine No PARoxetine [...] MG Ergocalcife Ergocalcife No 1{capsu Ergocalcif rol 27516 rol 63831 le} fortunato 94976 UNIT UNIT UNIT Aspirin 81 Aspirin 81 [...] MG Ergocalcife Ergocalcife No 1{capsu Ergocalcif rol 12254 rol 26379 le} fortunato 26057 UNIT UNIT UNIT ALPRAZolam ALPRAZolam No 1{table [...] MG Ergocalcife Ergocalcife No 1{capsu Ergocalcif rol 70060 rol 24361 le} fortunato 92968 UNIT UNIT UNIT ALPRAZolam ALPRAZolam No 1{table [...] MG Ergocalcife Ergocalcife No 1{capsu Ergocalcif rol 54607 rol 16199 le} fortunato 69415 UNIT UNIT UNIT ALPRAZolam ALPRAZolam No 1{table [...] MG Ergocalcife Ergocalcife No 1{capsu Ergocalcif rol 81273 rol 52887 le} fortunato 39759 UNIT UNIT UNIT Benzonatate Benzonatate No TID [...] MG Ergocalcife Ergocalcife No 1{capsu Ergocalcif rol 67046 rol 40879 le} fortunato 83259 UNIT UNIT UNIT Benzonatate Benzonatate No TID [...] MG Ergocalcife Ergocalcife No 1{capsu Ergocalcif rol 06229 rol 38936 le} fortunato 17651 UNIT UNIT UNIT Famotidine Famotidine No Famotidine [...] MG Ergocalcife Ergocalcife No 1{capsu Ergocalcif rol 13345 rol 76935 le} fortunato 16589 UNIT UNIT UNIT Famotidine Famotidine No Famotidine [...] MG Ergocalcife Ergocalcife No 1{capsu Ergocalcif rol 59265 rol 16100 le} fortunato 96493 UNIT UNIT UNIT Gabapentin Gabapentin No 1{capsu [...] MCG/ACT Ergocalcife Ergocalcife No 1{capsu Ergocalcif rol 36973 rol 45636 le} fortunato 18076 UNIT UNIT UNIT Gabapentin Gabapentin No 1{capsu [...] MG Ergocalcife Ergocalcife No 1{capsu Ergocalcif rol 18131 rol 43611 le} fortunato 78608 UNIT UNIT UNIT Montelukast Montelukast No Montelukas [...] MG Ergocalcife Ergocalcife No 1{capsu Ergocalcif rol 79727 rol 29303 le} fortunato 77403 UNIT UNIT UNIT Cetirizine Cetirizine No Cetirizine [...] MG Ergocalcife Ergocalcife No 1{capsu Ergocalcif rol 28402 rol 52304 le} fortunato 65755 UNIT UNIT UNIT Cetirizine Cetirizine No Cetirizine [...] MG Ergocalcife Ergocalcife No 1{capsu Ergocalcif rol 75201 rol 34948 le} fortunato 65537 UNIT UNIT UNIT Cetirizine Cetirizine No Cetirizine [...] MG Ergocalcife Ergocalcife No 1{capsu Ergocalcif rol 68726 rol 69698 le} fortunato 88719 UNIT UNIT UNIT Cetirizine Cetirizine No Cetirizine [...] MG Ergocalcife Ergocalcife No 1{capsu Ergocalcif rol 81222 rol 64810 le} fortunato 92259 UNIT UNIT UNIT Cetirizine Cetirizine No Cetirizine [...] MG Ergocalcife Ergocalcife No 1{capsu Ergocalcif rol 63288 rol 50123 le} fortunato 54412 UNIT UNIT UNIT guaiFENesin guaiFENesin No 10{ml_a [...] MG Ergocalcife Ergocalcife No 1{capsu Ergocalcif rol 58864 rol 55947 le} fortunato 60528 UNIT UNIT UNIT Meloxicam Meloxicam No Meloxicam [...] 2023-05-01 15:23:00 144 mm[Hg] Univer sity of pressure [facility] Diastolic blood 2023-05-01 15:23:00 89 mm[Hg] Unive rsity of pressure [facility] Heart rate 2023-05-01 15:23:00 75 /min [facility] ty [facility] Respiratory rate 2023-05-01 15:23:00 17 /min Univ ersity of [facility] Body height 2023-05-01 15:23:00 160 cm [facility] Body weight 2023-05-01 15:23:00 135.671 kg [facility] BMI 2023-05-01 15:23:00 52.98 kg/m2 Universi ty of [facility] Oxygen saturation in 2023-05-01 15:23:00 99 /min University of Arterial blood by [facility] Pulse oximetry Branch Systolic blood 2023-03-20 20:35:00 133 mm[Hg] Univer sity of [facility] Diastolic blood 2023-03-20 20:35:00 94 mm[Hg] Unive rsity of [facility] Heart rate 2023-03-20 20:35:00 78 /min [facility] [place] [facility] [place] Oxygen saturation in 2023-03-20 20:35:00 95 /min University of Arterial blood by [facility] Pulse oximetry Branch Body temperature 2023-03-20 20:33:00 36.33 Gem Univ [facility]ity of [facility] Respiratory rate 2023-03-20 20:33:00 18 /min [facility] Body height 2023-03-20 20:33:00 160 cm [facility] Body weight 2023-03-20 20:33:00 134.537 kg [facility] BMI 2023-03-20 20:33:00 52.54 kg/m2 [facility] height 2022-08-31 08:20:00 63 [in_i] Common S [facility] weight 2022-08-31 08:20:00 278 [lb_av] Common [facility] temperature 2022-08-31 08:20:00 98.5 [degF] [facility] bmi 2022-08-31 08:20:00 49.24 kg/m2 [facility] height 2022-08-10 10:20:00 63 [in_i] Common [facility] weight 2022-08-10 10:20:00 283 [lb_av] [facility] temperature 2022-08-10 10:20:00 98.5 [degF] [facility] bmi 2022-08-10 10:20:00 50.13 kg/m2 [facility] height 2022-06-22 10:20:00 63 [in_i] [facility] weight 2022-06-22 10:20:00 276 [lb_av] [facility] bmi 2022-06-22 10:20:00 48.89 kg/m2 [facility] height 2022-04-26 17:00:00 63 [in_i] [facility] weight 2022-04-26 17:00:00 279 [lb_av] [facility] temperature 2022-04-26 17:00:00 97.9 [degF] [facility] bmi 2022-04-26 17:00:00 49.42 kg/m2 [facility] height 2022-01-05 14:00:00 63 [in_i] [facility] weight 2022-01-05 14:00:00 297 [lb_av] [facility] bmi 2022-01-05 14:00:00 52.61 kg/m2 [facility] blood pressure 2022-01-05 14:00:00 148 mm[Hg] [facility] blood pressure 2022-01-05 14:00:00 102 mm[Hg] [facility] - diastolic [facility] height 2021-12-28 16:00:00 63 [in_i] Common [facility] weight 2021-12-28 16:00:00 300.4 [lb_av] [facility] temperature 2021-12-28 16:00:00 97.3 [degF] [facility] bmi 2021-12-28 16:00:00 53.21 kg/m2 [facility] oximetry 2021-12-28 16:00:00 100 % [facility] respiratory rate 2021-12-28 16:00:00 18 /min Comm on [facility] blood pressure 2021-12-28 16:00:00 137 mm[Hg] Common [facility] - systolic [facility] blood pressure 2021-12-28 16:00:00 83 mm[Hg] [facility] - diastolic [facility] height 2021-09-28 09:40:00 63 [in_i] Common [facility] weight 2021-09-28 09:40:00 283 [lb_av] [facility] temperature 2021-09-28 09:40:00 97.9 [degF] [facility] bmi 2021-09-28 09:40:00 50.13 kg/m2 [facility] height 2021-08-02 10:00:00 63 [in_i] [facility] weight 2021-08-02 10:00:00 282.6 [lb_av] [facility] temperature 2021-08-02 10:00:00 97.0 [degF] [facility] bmi 2021-08-02 10:00:00 50.05 kg/m2 [facility] oximetry 2021-08-02 10:00:00 97 % [facility] - [facility] respiratory rate 2021-08-02 10:00:00 16 /min [facility] on [facility] blood pressure 2021-08-02 10:00:00 140 mm[Hg] [facility] - systolic [facility] blood pressure 2021-08-02 10:00:00 62 mm[Hg] [facility] - diastolic [facility] Systolic blood 2021-07-04 00:50:00 180 mm[Hg] Univer sity of pressure [facility] Diastolic blood 2021-07-04 00:50:00 110 mm[Hg] Unive rsity of [facility] Heart rate 2021-07-04 00:50:00 79 /min [facility] Body temperature 2021-07-04 00:50:00 36.67 [facility] 2021-07-04 00:50:00 18 /min [facility] Body weight 2021-07-04 00:50:00 121.564 kg [facility] Oxygen saturation in 2021-07-04 00:50:00 99 /min [facility] Ar[facility] blood by [facility] Pulse oximetry Branch Heart Rate 2023-05-27 13:27:31 [facility] Systolic (mm Hg) 2023-05-27 13:25:25 Delvis rial [facility] Diastolic (mm Hg) 2023-05-27 13:25:25 Mem o[facility] [place] Temperature Oral (F) 2023-05-27 13:25:01 97.6 F [facility] Height 2023-05-26 15:06:00 5 [ft_i] [facility] Weight 2023-05-26 15:06:00 [facility] BMI Calculated 2023-05-26 15:06:00 [facility]ori [facility] Systolic (mm Hg) 2023-05-24 16:30:00 [facility]vis [facility] [place] Diastolic (mm Hg) 2023-05-24 16:30:00 Mem [facility] [place] Height 2023-05-24 15:00:00 5 [ft_i] [facility] Weight 2023-05-24 15:00:00 [facility] BMI Calculated 2023-05-24 15:00:00 Maycol Alejandro BP Systolic 2022-01-21 14:32:00 BP Diastolic 2022-01-21 14:32:00 Weight Measured 2022-01-21 14:32:00 276.00 pounds Height Measured 2022-01-21 14:32:00 63.00 inches Body Temperature 2022-01-21 14:32:00 Heart Rate 2022-01-21 14:32:00 Respiratory Rate 2022-01-21 14:32:00 Procedures Procedure Date / Time Performing Clinician Source Performed SLEEP STUDY DATA REPORT 2023-04-11 05:01:00 Doctor Unassigned, [facility] HB ECG ROUTINE & RHYTHM 2023-03-20 20:38:13 Lico Trevizo [facility] ASSIGNMENT OF BENEFITS 2023-03-20 20:13:23 Doctor Unassclaude, [facility] REFERRAL- REQUEST/RESPONSE 2023-02-02 05:01:00 Doctor Nichole , [facility] [facility] Cardioversion 2023-01-03 05:00:00 [facility] Her dumont XR CHEST 1 VW 2021-07-04 01:14:37 Raissa Tran [facility] NOTICE OF PRIVACY 2021-07-04 00:45:31 Doctor Unatracy, [facility] PRACTICES [facility] [facility] CONSENT/REFUSAL FOR 2021-07-04 00:45:10 Doctor Unatracy, [facility] 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 [facility] Plan of Care Planned Activity Planned Date Details Comments Source Goal Plan of Care Note [code = 79038-3] Goal Plan of Care Note [code = 50684-9] Goal Plan of Care Note [code = 66359-4] Goal Plan of Care Note [code = 59193-8] Goal Plan of Care Note [code = 99291-4] Goal Plan of Care Note [code = 33787-9] Goal Plan of Care Note [code = 36070-1] Goal Plan of Care Note [code = 81673-1] Goal Plan of Care Note [code = 95027-0] Goal Plan of Care Note [code = 79062-9] Goal Plan of Care Note [code = 14231-0] Goal Plan of Care Note [code = 81200-2] Goal Plan of Care Note [code = 29378-1] Goal Plan of Care Note [code = 63329-4] Goal Plan of Care Note [code = 78728-5] Goal Plan of Care Note [code = 95298-8] Encounters Start End Encounter Admission Attending Care Care Encounter Source Date/Time Date/Time Type Type Clinicians Facility Department ID 2023-02-24 Outpatient Chung, STLMLC STLMLC [id number] Common 14:59:00 Avnee [id number] [facility] 2023-01-23 Outpatient Chung, STLMLC STLMLC [id number] Common 09:09:00 Avnee 94005 [facility] 2022-12-29 Outpatient Chung, STLMLC STLMLC [id number] Common 15:24:00 Avnee [id number] [facility] 2022-12-21 Outpatient Layla, STLMLC STLMLC [id number] Common 09:47:00 Karol 31878 [facility] 2022-06-01 Outpatient Lopez, Na STLMLC STLMLC [id number] 2 Common 09:18:00 [facility] 2022-04-13 Outpatient Lopez, Na STLMLC STLMLC [id number] Common 15:29:00 [facility] 2022-04-07 Outpatient Lopez, Na STLMLC STLMLC [id number] Common 16:07:00 [facility] 2022-01-04 Outpatient Lopez, Na STLMLC STLMLC [id number] 2 Common 09:31:01 [facility] 2021-10-20 Outpatient Lopez, Na STLMLC STLMLC [id number] 2 Common 14:09:55 [id number] [facility] 2021-10-20 Outpatient Lopez, Na STLMLC STLMLC [id number] 2 Common 13:47:22 [id number] [facility] 2021-10-20 Outpatient Lopez, Na STLMLC STLMLC [id number] 2 Common 12:29:04 [id number] [facility] 2021-10-20 Outpatient Lopez, Na STLMLC STLMLC [id number] 2 Common 12:03:44 [id number] [facility] 2021-10-20 Outpatient Lopez, Na STLMLC STLMLC [id number] 2 Common 12:03:05 [id number] [facility] 2021-10-20 Outpatient Lopez, Na STLMLC STLMLC [id number] Common 11:43:49 [id number] [facility] 2021-10-20 Outpatient Lopez, Na STLMLC STLMLC [id number] 2 Common 11:35:56 [id number] [facility] 2021-10-20 Outpatient Lopez, Na STLMLC STLMLC [id number] 2 Common 11:18:09 [id number] [facility] 2021-10-20 Outpatient Lopez, Na STLMLC STLMLC [id number] 2 Common 11:04:54 [id number] [facility] 2021-10-20 Outpatient Lopez, Na STLMLC STLMLC [id number] 2 Common 11:04:25 [id number] [facility] 2023-08-02 2023-08-02 Outpatient LUCY BOOGIE [facility] [id number] [facility] 11:00:00 11:00:[address] [facility] 2023-05-26 2023-05-27 Observatio [facility] [id number] 21:42:00 17:29:[address] 2023-05-26 2023-05-27 Outpatient Justo Maurer [facility] [id number] 16:42:00 12:29:00 2023-05-26 2023-05-27 Outpatient JUSTO MAURER [facility] [id number] [facility] 16:42:00 12:29:00 2023-05-24 2023-05-25 Outpatient [facility] [id number] Memoria 12:17:00 04:59:00 [place] 00 l [facility] 2023-05-24 2023-05-24 Outpatient Justo Maurer [facility] [id number] 07:17:00 23:59:00 00 2023-05-24 2023-05-24 Outpatient JUSTO MAURER [facility] [id number] [facility] 07:17:00 23:59:00 00 2023-05-01 2023-05-01 Outpatient R LUCY CUEVAS [facility] [id number] Univers 10:30:00 10:54:08 LUCY CUEVAS it y of [facility] 2023-05-01 2023-05-01 [facility] 1.2.840.114 [id number] Univers 10:30:00 10:54:08 Visit [facility] [id number] [place] [id number] [address] OFFICE [facility] 2023-05-01 2023-05-01 Telephone [facility] 1.2.840.114 [id number] Univers 00:00:00 00:00:00 [facility] [id number] [place] [id number] [address] OFFICE [facility] 2023-04-20 2023-04-20 Outpatient R MAC LEWIS [facility] [id number] Univers 11:20:00 11:20:00 MAC LEWIS ity [facility] 2023-04-15 2023-04-15 [facility] [id number] Univers 00:00:00 00:00:00 Lico GARCIA 350.1.13.10 ity [facility] [place] [id number] [place] [id number] [facility] 2023-04-13 2023-04-13 [facility]phone [facility] [id number] [id number] Univers 00:00:00 00:00:00 Qiangjun [place] 350.1.13.10 ity [facility] 4[place] [id number] Al dical NAL 059 [facility] 2023-04-11 2023-04-11 County Program Technician Luisa Foss Sleep Lab [facility] 1.2 .840.114 [id number] Univers 13:00:00 13:15:00 Visit Christina Osorio 350.1.13. 10 ity [facility] 4.[place].7.2.[place] [id number] [facility] [address] [place] 2023-04-11 2023-04-11 Outpatient R CHRISTINA OSORIO [facility] [id number] Univers 13:00:00 13:00:00 CHRISTINA OSORIO ity of [facility] 2023-04-11 2023-04-11 Orders Doctor ANEL 1.2.840.114 [id number] Univers 00:00:00 00:00:00 Only Unassigned, VITALY 350.1.13.10 ity of [place] [facility] 4.2.7.2.686 Herman as [id number] [facility] [address] [place] 2023-03-29 2023-03-29 Telephone [facility] [id number] [id number] Univers 00:00:00 00:00:00 Augustojun [place] 350.1.13.10 ity of [facility] 4.[place] [id number] Al dical NAL 9 [facility] 2023-03-29 2023-03-29 Telephone [facility] [id number] [id number] Univers 00:00:00 00:00:00 Qiangjun [place] 350.1.13.10 ity [facility] 4.2.7.2.[place] [id number] Al dical NAL 9 [facility] 2023-03-20 2023-03-20 Outpatient R SNATHOSH [facility] [id number] Univers 15:20:00 16:49:15 LICO ity o f [facility] 2023-03-20 2023-03-20 Office Santhosh, [facility] 1.2.840.114 [id number] Univers 15:20:00 16:49:15 Visit Lico GARCIA 350.1.13.10 it[place] of [place] [id number] [place] [id number] [facility] 2023-03-20 2023-03-20 Orders Doctor ANEL 1.2.840.114 [id number] Univers 00:00:00 00:00:00 Only Unassigned, VITALY 350.1.13.10 ity of [place] [facility] 4.2.7.2.686 Herman as [id number] [address] 2023-02-02 2023-02-02 Orders Doctor ANEL 1.2.840.114 [id number] Univers 00:00:00 00:00:00 Only Unassigned, VITALY 350.1.13.10 ity of [place] [facility] 4.2.7.2.686 Herman as [phone] [address] 2022-08-31 2022-08-31 OFFICE STLMLC STLMLC [id number] Co mmon 00:00:00 00:00:00 VISIT EST Spir it PT LEVEL 3 - [facility] 2022-08-30 2022-08-30 (TEL) STLMLC STLMLC [id number] Co mmon 00:00:00 00:00:00 [facility] 2022-08-29 2022-08-29 Outpatient SFA GLORY [id number] Stef 15:26:21 15:26:21 1205 F Mohinder 2022-08-29 2022-08-29 Outpatient [id number] 00:00:00 00:00:00 Visit [id number] 2022-08-10 2022-08-10 (TEL) STLMLC STLMLC [id number] Co mmon 00:00:00 00:00:00 [facility] 2022-08-10 2022-08-10 (TEL) STLMLC STLMLC [id number] Co mmon 00:00:00 00:00:00 [facility] 2022-08-10 2022-08-10 (TEL) STLMLC STLMLC [id number] Co mmon 00:00:00 00:00:00 [facility] 2022-08-10 2022-08-10 OFFICE STLMLC STLMLC [id number] Co mmon 00:00:00 00:00:00 VISIT EST Spir it PT LEVEL 3 [facility] 2022-07-20 2022-07-20 (TEL) STLMLC STLMLC [id number] Co mmon 00:00:00 00:00:00 [facility] 2022-06-29 2022-06-29 (TEL) STLMLC STLMLC [id number] Co mmon 00:00:00 00:00:00 [facility] 2022-06-22 2022-06-22 OFFICE STLMLC STLMLC [id number] Co mmon 00:00:00 00:00:00 VISIT EST Spir it PT LEVEL 3 [facility] 2022-06-20 2022-06-20 (TEL) STLMLC STLMLC [id number] Co mmon 00:00:00 00:00:00 [facility] 2022-06-03 2022-06-03 OFFICE STLMLC STLMLC [id number] Co mmon 00:00:00 00:00:00 VISIT EST Spir it PT LEVEL 3 [facility] 2022-05-16 2022-05-16 (TEL) STLMLC STLMLC [id number] Co mmon 00:00:00 00:00:00 [facility] 2022-05-16 2022-05-16 OFFICE STLMLC STLMLC [id number] Co mmon 00:00:00 00:00:00 VISIT EST Spir it PT LEVEL 3 [facility] 2022-04-27 2022-04-27 (TEL) STLMLC STLMLC [id number] Co mmon 00:00:00 00:00:00 [facility] 2022-04-26 2022-04-26 (TEL) STLMLC STLMLC [id number] Co mmon 00:00:00 00:00:00 [facility] 2022-04-26 2022-04-26 OFFICE STLMLC STLMLC [id number] Co mmon 00:00:00 00:00:00 VISIT EST Spir it PT LEVEL 3 [facility] 2022-04-20 2022-04-20 Outpatient [id number] 00:00:00 00:00:00 Visit [id number] 2022-03-30 2022-03-30 OFFICE STLMLC STLMLC [id number] Co mmon 00:00:00 00:00:00 VISIT [facility] PT - CHI LEVEL 4 [facility] 2022-02-14 2022-02-14 (TEL) STLMLC STLMLC [id number] Co mmon 00:00:00 00:00:00 [facility] 2022-01-27 2022-01-27 OFFICE STLMLC STLMLC [id number] Co mmon 00:00:00 00:00:00 VISIT EST Spir it PT LEVEL 3 [facility] 2022-01-26 2022-01-26 (TEL) STLMLC STLMLC [id number] Co mmon 00:00:00 00:00:00 [facility] 2022-01-18 2022-01-18 (TEL) STLMLC STLMLC [id number] Co mmon 00:00:00 00:00:00 [facility] 2022-01-05 2022-01-05 OFFICE STLMLC STLMLC [id number] Co mmon 00:00:00 00:00:00 VISIT NEW Spir it PT LEVEL 3 - [facility] 2021-12-28 2021-12-28 OFFICE STLMLC STLMLC [id number] Co mmon 00:00:00 00:00:00 VISIT [facility] PT - CHI LEVEL 4 [facility] 2021-11-15 2021-11-15 (TEL) STLMLC STLMLC [id number] Co mmon 00:00:00 00:00:00 [facility] 2021-11-11 2021-11-11 (TEL) STLMLC STLMLC [id number] Co mmon 00:00:00 00:00:00 [facility] 2021-09-28 2021-09-28 OFFICE STLMLC STLMLC [id number] Co mmon 00:00:00 00:00:00 VISIT [facility] PT - CHI LEVEL 4 [facility] 2021-08-27 2021-08-27 (TEL) STLMLC STLMLC [id number] Co mmon 00:00:00 00:00:00 [facility] 2021-08-04 2021-08-04 (TEL) STLMLC STLMLC [id number] Co mmon 00:00:00 00:00:00 [facility] 2021-08-02 2021-08-02 OFFICE STLMLC STLMLC [id number] Co mmon 00:00:00 00:00:00 VISIT [facility] PT - CHI LEVEL 4 [facility] 2021-07-22 2021-07-22 Outpatient Vanesa Cheung HCAPM RADI LA0 [id number] [facility] 08:00:00 08:00:00 63 [facility] 2021-07-03 2021-07-03 Emergency Marc, [facility] 1.2.840.114 [id number] Univers 19:47:00 21:16:00 [facility]2.7[facility] [id number] [place] [address] Branch 2021-07-03 2021-07-03 Emergency X [facility] ERT [id number] Univers 19:47:00 19:47:00 ity [facility] 2021-06-07 2021-06-07 Outpatient STLMLC STLMLC [id number] Common 00:00:00 00:00:00 [facility] 2021-05-06 2021-05-06 Outpatient STLMLC STLMLC [id number] Common 00:00:00 00:00:00 [facility] 2021-04-28 2021-04-28 Outpatient STLMLC STLMLC [id number] Common 00:00:00 00:00:00 [facility] 2021-04-27 2021-04-27 Outpatient STLMLC STLMLC [id number] Common 00:00:00 00:00:00 [facility] 2021-03-15 2021-03-15 Outpatient STLMLC STLMLC [id number] Common 00:00:00 00:00:00 [facility] 2021-01-04 2021-01-04 Outpatient STLMLC STLMLC [id number] Common 00:00:00 00:00:00 [facility] 2020-11-03 2020-11-03 Outpatient STLMLC STLMLC [id number] Common 00:00:00 00:00:00 [facility] 2020-08-03 2020-08-03 Outpatient STLMLC STLMLC [id number] Common 00:00:00 00:00:00 [facility] 2020-05-04 2020-05-04 [id number] Common 10:10:00 10:10:[address] [facility] 2020-05-01 2020-05-01 [facility] [id number] Common 09:40:00 09:40:[address] [facility] 2020-02-19 2020-02-19 [facility] [id number] Common 16:06:00 16:06:[address] [facility] [address] [facility] 2019-12-12 2019-12-12 [facility] [id number] Common 15:41:00 15:41:[address] [facility] 2019-09-16 2019-09-16 [facility] [id number] Common 14:40:00 14:40:[address] [facility] 2019-08-15 2019-08-15 [facility] [id number] Common 09:27:00 09:27:[address] [facility] 2019-08-12 2019-08-12 [facility] [id number] Common 09:00:00 09:00:[address] [facility] 2019-07-31 2019-07-31 [facility] [id number] Common 11:46:00 11:46:[address] [facility] 2019-07-29 2019-07-29 [facility] [id number] Common 09:40:00 09:40:[address] [facility] 2019-06-02 2019-06-02 [facility] [id number] Common 09:38:00 09:38:00 t [facility] 2019-05-31 2019-05-31 [facility] [id number] Common 11:30:00 11:30:00 t Urgent [facility] 2018-01-19 2018-01-19 [facility] [id number] Common 08:11:00 08:11:[address] [facility] 2018-01-18 2018-01-18 [facility] [id number] Common 10:15:00 10:15:[address] [facility] 2017-12-26 2017-12-26 [facility] [id number] Common 09:30:00 09:30:[address] [facility] 2008-10-21 2008-10-21 Outpatient [facility] [id number] 00:00:00 11:14:00 1 [facility] Results Test Description Test Time Test Comments Results Result Comments Source CHEMISTRY 2023-05-27 11:57:00 Test Item Value Reference Range Interpretation Comme nts Glucose Lvl (test code = Glucose Lvl) 113 70-99 [id number] 11:57:00 Test Item Value Reference Range Interpretation Comments BUN (test code = BUN) 8 7-22 [id number] 11:57:00 Test Item Value Reference Range Interpretation Comments Creatinine Lvl (test code = Creatinine 0.80 0.50-1.40 Lvl) [id number] 11:57:00 Test Item Value Reference Range Interpretation Comments Sodium Lvl (test code = Sodium Lvl) 141 135-145 [place] [id number] 11:57:00 Test Item Value Reference Range Interpretation Comments Potassium Lvl (test code = Potassium 4.1 3.5-5.1 Lvl) [facility] CenterPigjqqcORWNSOHID5516-93-23 11:57:00 Test Item Value Reference Range Interpretation Comments Chloride Lvl (test code = Chloride Lvl) 110 95-109 [facility] CenterOuouvezECOWSCVYI3289-07-96 11:57:00 Test Item Value Reference Range Interpretation Comments CO2 (test code = CO2) 26 24-32 [facility] CenterRqsgfdgVTLVUIVRC5749-31-04 11:57:00 Test Item Value Reference Range Interpretation Comments Calcium Lvl (test code = Calcium Lvl) 8.9 8.5-10.5 [facility] CenterWslsybwVZMVFXTUE9007-22-48 11:57:00 Test Item Value Reference Range Interpretation Comments AGAP (test code = AGAP) 9.1 10.0-20.0 [facility] CenterJejlrozQLBFQWVAH9907-37-54 11:57:00 Test Item Value Reference Range Interpretation Comments eGFR (test code = eGFR) 91 [place] 151633-09-02 11:57:00 Test Item Value Reference Range Interpretation Comments Magnesium Lvl (test code = Magnesium 2.6 1.8-2.4 Lvl) [facility]JzlqvlnTEQPNJEHKI2576-67-36 11:57:00 Test Item Value Reference Range Interpretation Comments WBC X 10x3 (test code = WBC X 10x3) 9.8 3.7-10.4 [facility]anoWmtjjssBBLGVUSDSP1599-85-98 11:57:00 Test Item Value Reference Range Interpretation Comments RBC X 10x6 (test code = RBC X 10x6) 4.37 4.20-5.40 [facility]anoAwbqhaeODEIPSEIUR1769-44-81 11:57:00 Test Item Value Reference Range Interpretation Comments Hgb (test code = Hgb) 11.3 12.0-16.0 [facility]anoModmyjwBKBQUDYMMI5710-87-76 11:57:00 Test Item Value Reference Range Interpretation Comments Hct (test code = Hct) 35.0 36.0-48.0 [facility]anoPjfgwrnYLTWOEPOLV6623-28-29 11:57:00 Test Item Value Reference Range Interpretation Comments MCV (test code = MCV) 80.0 80.0-98.0 [facility]anoZzenbluHMTLPYYPRF4847-29-84 11:57:00 Test Item Value Reference Range Interpretation Comments MCH (test code = MCH) 25.8 pg 27.0-31.0 [facility]anoTbllgwdMBGKIZFNXN2690-48-53 11:57:00 Test Item Value Reference Range Interpretation Comments MCHC (test code = MCHC) 32.2 32.0-36.0 [facility]anoUkkyslnHQRTOJEGZX1756-59-76 11:57:00 Test Item Value Reference Range Interpretation Comments RDW (test code = RDW) 15.8 11.5-14.5 [facility]anoUkwizfgQYZUBYQSRO3640-84-38 11:57:00 Test Item Value Reference Range Interpretation Comments Platelet (test code = Platelet) 378 133-450 [facility]anoQqbhwkuGOFBQYFOOL1743-25-00 11:57:00 Test Item Value Reference Range Interpretation Comments MPV (test code = MPV) 8.1 7.4-10.4 [facility]anoXtzfuoaHNPACHKADT0702-63-51 11:57:00 Test Item Value Reference Range Interpretation Comments Segs (test code = Segs) 70.7 45.0-75.0 [place] 117813-09-02 11:57:00 Test Item Value Reference Range Interpretation Comments Lymphocytes (test code = Lymphocytes) 22.0 20.0-40.0 [place] [address]-09-02 11:57:00 Test Item Value Reference Range Interpretation Comments Monocytes (test code = Monocytes) 6.3 2.0-12.0 [facility]anoBocpqvdVOHHWRGPPM9895-65-45 11:57:00 Test Item Value Reference Range Interpretation Comments Basophils (test code = Basophils) 1.0 <=1.0 [place] [address]-09-02 11:57:00 Test Item Value Reference Range Interpretation Comments Neutrophils # (test code = Neutrophils 7.0 1.5-8.1 #) [facility]anoQspbfvsHTPVRHBRZE6027-30-56 11:57:00 Test Item Value Reference Range Interpretation Comments Lymphocytes # (test code = Lymphocytes 2.2 1.0-5.5 #) [facility]anoFdixeoyIGVGIMPNJG1221-10-19 11:57:00 Test Item Value Reference Range Interpretation Comments Monocytes # (test code = Monocytes #) 0.6 <=0.8 [facility]anoPutmdudRPJSRWWMIG2914-00-75 11:57:00 Test Item Value Reference Range Interpretation Comments Basophils # (test code = Basophils #) 0.1 <=0.2 [facility]anoJctxjjvOORGUVQQMZ5922-58-51 21:30:00 Test Item Value Reference Range Interpretation Comments POC Activated Clotting Time (test code 232 s = POC Activated Clotting Time) [facility] UYYZXGN6937-27-71 17:00:00 Test Item Value Reference Range Interpretation Comments RBC product (test code Product available = RBC product) (05/26/23 12:00 PM) [facility] CenterZdbkmamIFXVEMPFS5381-48-10 15:07:00 Test Item Value Reference Range Interpretation Comments U Preg (test code = U Negative (05/26/23 10:07 Preg) AM) [facility] CenterQlxeavqEWAYVTDAV8979-68-00 14:56:00 Test Item Value Reference Range Interpretation Comments POC Sodium (test code = POC Sodium) 142 135-145 [facility] CenterQiqmecaERQASOBNC5562-47-86 14:56:00 Test Item Value Reference Range Interpretation Comments POC Potassium (test code = POC 3.9 3.5-5.1 Potassium) [facility] CenterDdlbmtkUQFOWTNTL5316-02-21 14:56:00 Test Item Value Reference Range Interpretation Comments POC Chloride (test code = POC Chloride) 105 95-109 [facility] CenterEyjzanbRWDESSAKX4028-19-18 14:56:00 Test Item Value Reference Range Interpretation Comments POC Carbon Dioxide (test code = POC 25 24-32 Carbon Dioxide) [facility] CenterUeueombWODKDZEBU1787-78-90 14:56:00 Test Item Value Reference Range Interpretation Comments POC BUN (test code = POC BUN) 7 7-22 [facility] CenterRtkuwteBDHUBWHOZ4698-56-74 14:56:00 Test Item Value Reference Range Interpretation Comments POC Creatinine (test code = POC 0.7 0.5-1.4 Creatinine) [facility] CenterIdeljqzSPBTPHWAC4944-70-72 14:56:00 Test Item Value Reference Range Interpretation Comments POC Glucose (test code = POC Glucose) 89 70-99 [facility] CenterHxpegkmDWUHABRJM1503-91-91 14:56:00 Test Item Value Reference Range Interpretation Comments POC Ion Ca (test code = POC Ion Ca) 1.22 1.05-1.25 [facility] CenterQzfygvaWETAJYFRW8838-75-33 14:56:00 Test Item Value Reference Range Interpretation Comments POC Hemoglobin (test code = POC 13.3 12.0-16.0 Hemoglobin) [facility] CenterNhyadouVYQMZRKJF3775-87-61 14:56:00 Test Item Value Reference Range Interpretation Comments POC Hematocrit (test code = POC 39.0 36.0-48.0 Hematocrit) [facility] CenterXvsaezaUPZFTLGYJ1329-02-85 14:56:00 Test Item Value Reference Range Interpretation Comments POC AGAP (test code = POC AGAP) 16.0 10.0-20.0 [facility] CenterYwgskqhMVAZJYSOD8205-88-81 14:56:00 Test Item Value Reference Range Interpretation Comments eGFR (test code = eGFR) 107 [facility] RockSir[facility] GWGOVRF9264-45-93 14:33:00 Test Item Value Reference Range Interpretation Comments ABO/Rh (test code = ABO/Rh) A POS [facility] RockSiriona [facility] OAKUSEH2591-45-49 14:33:00 Test Item Value Reference Range Interpretation Comments Antibody Scrn (test Negative (05/24/23 9:33 code = Antibody Scrn) AM) [facility] CenterAyqvfrqZCUGSZTFV5136-90-30 14:33:00 Test Item Value Reference Range Interpretation Comments Total Protein (test code = Total 8.5 6.4-8.4 Protein) [facility] CenterRdshokwPLRYIMFSV8675-36-30 14:33:00 Test Item Value Reference Range Interpretation Comments Albumin Lvl (test code = Albumin Lvl) 3.2 3.5-5.0 [facility] CenterVidexzhIBYTDNNFX1823-26-95 14:33:00 Test Item Value Reference Range Interpretation Comments ALT (test code = ALT) 28 <=65 [facility] CenterSbjrjlyTGFEIDOFB6747-02-41 14:33:00 Test Item Value Reference Range Interpretation Comments AST (test code = AST) 19 <=37 [place] 151633-08-30 14:33:00 Test Item Value Reference Range Interpretation Comments Alk Phos (test code = Alk Phos) 51 39-136 [facility] CenterXrianvkJQWWSKCCV0578-66-82 14:33:00 Test Item Value Reference Range Interpretation Comments Bili Total (test code = Bili Total) 0.5 0.2-1.3 [facility] CenterWlbrtckOSWSBWGXP8083-50-79 14:33:00 Test Item Value Reference Range Interpretation Comments Bili Direct (test code = Bili Direct) 0.1 <=0.3 [facility] CenterXxhsqpyFVDKJHSMQ8723-21-47 14:33:00 Test Item Value Reference Range Interpretation Comments Bili Indirect (test code = Bili 0.4 <=1.0 Indirect) [facility] CenterGpgpunxNGFEKJRDI0120-02-45 14:33:00 Test Item Value Reference Range Interpretation Comments Globulin (test code = Globulin) 5.3 2.7-4.2 [facility] CenterFuwohqrUAMHDIGSQ7558-30-57 14:33:00 Test Item Value Reference Range Interpretation Comments A/G Ratio (test code = A/G Ratio) 0.6 1 0.7-1.6 [facility]anoUfnokayJZWDRJSYOS2912-21-60 13:55:00 Test Item Value Reference Range Interpretation Comments PT (test code = PT) 13.5 s 12.0-14.7 [facility] PlanoEyecsomLKOZIPVDSH3578-33-34 13:55:00 Test Item Value Reference Range Interpretation Comments INR (test code = INR) 1.03 1 0.85-1.17 [facility]anoDqbicfzRFPZKBFXXV7522-32-66 13:55:00 Test Item Value Reference Range Interpretation Comments PTT (test code = PTT) 26.1 s 22.9-35.8 [facility]UhoashtCUIFTWOALQ7739-41-46 12:46:00 Test Item Value Reference Range Interpretation Comments Eosinophils (test code = Eosinophils) 1.1 <=4.0 [place] [address]-08-30 12:46:00 Test Item Value Reference Range Interpretation Comments Eosinophils # (test code = Eosinophils 0.1 <=0.5 #) [facility] RT-PCR/GJT3179-34-91 07:26:55 Test Item Value Reference Interpretation Comments Range SARS-CoV-2 NEGATIVE SEE NOTE SARS-CoV-2 RNA NOT INTERPRETATION DETECTEDNegat papo (test code = 67677) results do not preclude SARS-C oV-2 infection and s hould notbe used as t he sole basis for patie nt management deci sions. Negativeresults must be combined wit h clinical observ ations, patient history ,and epidemiological information. Op timum specimen types and timingfor peak viral levels during infections caus ed by SARS-CoV-2 have notbeen determi estefania. Collection of m ultiple specimens or ty pes ofspecimens may be necessary to de tect virus. Improper specimencollect ion and handling, seque nce variability und er primers/probes, or organism presen t below the limit of de tection may lead to falsenegative r esults. Positive and ne gative predictive valu es oftesting are h ighly dependent on prevalence. Fal se negative testre sults are more likely when prevalence is h igh. EFFECTIVE 12/06, SPUTUM SPECIMEN S CAN NO LONGER BE TE STED WITHTHIS ORDER CODE. FOR SALIVA, ORA L FLUID TESTING AND SPECIMENREQUIRE MENTS, PLEASE REFER TO ORDER CODE 3509. SOURCE (test code = NASOPHARYNGEAL Note: [place] [address]) Ro Charito Kenefic l-Time RT-PCR. The exp ected result or refer ence range is NEGATI VE (Not Detected). For more information reg arding COVID-19 testin g to include clinicalinforma tion, methodology det ail, intended use, F DA authorization andrecommended fact sheets for carlos ents or healthcare prov iders, see NewTest Announcement: SARS-CoV-2 (COV ID-19) by NAAT at URL below (note,fact shee ts are provided by met hod given in report:https:// www.[employer].com/clinic ians/cl ient-communicat ions/ Alternatively, see downloadable PD F fact sheet at:https://www. [employer] .[employer]/COVID-19-R T-PCR UNLESS OTHERWIS E INDICATED, ALL TESTING PERFORMED [facility], [place]. [address] [place] [address] [facility] DIRECTOR: PRUDENCE SOLIS M.D. CLIA NUMBER [id number] CAP ACCREDITATION N O. [id number] SARS-CoV-2 (COVID-19) by RT-PCR (HIGH RISK)2021-12-10 00:00:00 Test Item Value Reference Range Interpretation Comments SARS-CoV-2 INTERPRETATION NEGATIVE (test code = 48623) SOURCE (test code = 51575) NASOPHARYNGEAL SARS-CoV-2 (COVID-19) by RT-PCR (HIGH RISK)2021-12-10 00:00:00 Test Item Value Reference Range Interpretation Comments SARS-CoV-2 INTERPRETATION NEGATIVE (test code = 62784) SOURCE (test code = 72637) NASOPHARYNGEAL SARS-CoV-2 (COVID-19) by RT-PCR (HIGH RISK)2021-12-10 00:00:00 Test Item Value Reference Range Interpretation Comments SARS-CoV-2 INTERPRETATION NEGATIVE (test code = 87632) SOURCE (test code = 97994) NASOPHARYNGEAL Lipid Panel w/ Chol/HDL Czemf8153-79-14 00:00:00 Test Item Value Reference Range Interpretation Comments Cholesterol, Total (test code = 2093-3) 186 100-199 Triglycerides (test code = 2571-8) 86 0-149 HDL Cholesterol (test code = 2085-9) 59 >39 T. Chol/HDL Ratio (test code = 9830-1) 3.2 0.0-4.4 JOSÉ w/Reflex if Ktwihnkg5787-66-02 00:00:00 Test Item Value Reference Range Interpretation Comments JOSÉ Direct (test code = 8061-4) Negative Negative Comp. Metabolic Panel (14) ([facility])2021-08-02 00:00:00 Test Item Value Reference Range Interpretation Comments Glucose (test code = 2345-7) 75 65-99 BUN (test code = 3094-0) 10 6-24 Creatinine (test code = 2160-0) 0.74 0.57-1.00 eGFR If NonAfricn Am (test code = 97 >59 01723-7) eGFR If Africn Am (test code = 17689-1) 112 >59 BUN/Creatinine Ratio (test code = 14 06-17 3097-3) Sodium (test code = 2951-2) 141 134-144 Potassium (test code = 2823-3) 3.7 3.5-5.2 Chloride (test code = 2075-0) 102 96-106 Carbon Dioxide, Total (test code = -2027-9) Calcium (test code = 15945-9) 9.6 8.7-10.2 Protein, Total (test code = 2885-2) 8.8 6.0-8.5 Albumin (test code = 1751-7) 4.6 3.8-4.8 Globulin, Total (test code = 83786-7) 4.2 1.5-4.5 A/G Ratio (test code = 1759-0) 1.1 1.2-2.2 Bilirubin, Total (test code = 1974-2) 0.6 0.0-1.2 Alkaline Phosphatase (test code = 76 44-121 6768-6) AST (SGOT) (test code = 1920-8) 20 0-40 ALT (SGPT) (test code = 1742-6) 19 0-32 CBC With Differential/Pjzjggce6583-39-13 00:00:00 Test Item Value Reference Range Interpretation [...] Granulocytes (test code = 0 Not Estab. 73162-5) Immature Grans (Abs) (test code = 0.0 0.0-0.1 64180-0) NRBC (test code = 30018-4) Hematology Comments: (test code = 23469-8) Rheumatoid Arthritis Ezdhay3884-68-83 00:00:00 Test Item Value Reference Range Interpretation Comments Rheumatoid Factor (RF) (test code = <10.0 0.0-13.9 05391-6) C-Reactive Protein, Quant (CRP)2021-08-02 00:00:00 Test Item Value Reference Range Interpretation Comments C-Reactive Protein, Quant (test code = 13 0-10 1987-5) Vitamin D, 92-Clwrcni6394-95-08 00:00:00 Test Item Value Reference Range Interpretation Comments Vitamin D, 25-Hydroxy (test code = 24.0 30.0-100.0 1988-) - CT ABD PELVIS W/TIJC6508-04-10 09:50:00 [facility] 1975 Sex: F Name: SHE FITZGERALD [facility] : 1975 Age/S: 46 / F [id number] Unit #: [id number] Loc: [place] [address] Phys: Vanesa Nunez MD Acct: [id number] Dis Date: Status: REG CLI PHONE #: [phone] Exam Date: 07/22/2021917 FAX #: Reason: CROHNS DISEASE, UNSPECIFIED, WITHOUT COMPLICATI EXAMS: CPT: [id number] CT ABD PELVIS W/CONT 25341 HISTORY: CROHN'S DISEASE, UNSPECIFIED, WITHOUT COMPLICATIONS TECHNIQUE: [...] 1 Signed Report (CONTINUED) Name: SHE FITZGERALD [facility] [place] : 1975 Age/S: 46 / F [address] Unit #: [id number]: [place] [address] Phys: Vanesa Nunez MD Acct: [id number] Dis Date: Status: REG CLI PHONE #: [phone] Exam Date: 07/22/2021917 FAX #: Reason: CROHNS DISEASE, UNSPECIFIED, WITHOUT COMPLICATI EXAMS: CPT: [id number] CT ABD PELVIS W/CONT 63857 (Continued) IMPRESSION: 1. There is mild diffuse [...] (0950) [id number] Orig Print D/T: S: 07/22/2021 (8844) PAGE 2 Signed SblyqwJNMYJ-FBV0709-56-28 08:27:00 Test Item Value Reference Range Interpretation Comments ISTAT-BUN (test code = BUNP) 8 mg/dL 8-26 N BEDSIDE VLUGXOOTKX8690-95-14 08:27:00 Test Item Value Reference Range Interpretation Comments BEDSIDE CREATININE (test code = 0.6 mg/dL 0.6-1.3 N CREATBED) SARS-COV-2 (COVID19), NAAT [ADDED]2020-10-02 00:00:00 Test Item Value Reference Range Interpretation Comments SARS-CoV-2 INTERPRETATION (test NEGATIVE code = 86033) SOURCE (test code = 79777) NOT SPECIFIED SARS-COV-2 (COVID19), NAAT [ADDED]2020-10-02 00:00:00 Test Item Value Reference Range Interpretation Comments SARS-CoV-2 INTERPRETATION (test NEGATIVE code = 15855) SOURCE (test code = 57865) NOT SPECIFIED SARS-COV-2 (COVID19), NAAT [ADDED]2020-10-02 00:00:00 Test Item Value Reference Range Interpretation Comments SARS-CoV-2 INTERPRETATION (test NEGATIVE code = 10631) SOURCE (test code = 55388) NOT SPECIFIED SARS-CoV-2 (COVID-19) by RT-PCR (HIGH RISK)2020-04-17 00:00:00 Test Item Value Reference Range Interpretation Comments SARS-CoV-2 INTERPRETATION (test NEGATIVE code = 48456) SOURCE (test code = 83233) NOT SPECIFIED SARS-CoV-2 (COVID-19) by RT-PCR (HIGH RISK)2020-04-17 00:00:00 Test Item Value Reference Range Interpretation Comments SARS-CoV-2 INTERPRETATION (test NEGATIVE code = 35618) SOURCE (test code = 75771) NOT SPECIFIED SARS-CoV-2 (COVID-19) by RT-PCR (HIGH RISK)2020-04-17 00:00:00 Test Item Value Reference Range Interpretation Comments SARS-CoV-2 INTERPRETATION (test NEGATIVE code = 70933) SOURCE (test code = 27483) NOT SPECIFIED POC, COVID 19 Antigen + Flu by SofiaPOC, COVID 19 Antigen + Flu by Jennifer
[2023-06-14] MEDS ORDERED: LORazepam 2 MG/ML VIAL ONE (22:16)
[2023-06-14] MEDS ORDERED: NA CHLORIDE 0.9% 500 ML ONE (22:16)
[2023-06-14 22:25] LABS: Absolute Lymphocytes (CBC) 3.6 K/uL (0.7-4.9); Hematocrit 33.4 % (36.0-45.0); Lymphocytes % 37.4 % (15.3-44.8); MCV 80.3 fL (80-100); MPV 7.9 fL (7.6-11.3); Platelets 369 thou/uL (152-406); RBC Red Blood Cell Count 4.16 M/uL (3.86-4.86)
--- NOTE | 2023-06-14 22:27 | RAD REPORT ---
EXAM DESCRIPTION: RADChest Single View06/14/2023 10:17 pm CLINICAL HISTORY: PALPITATIONS COMPARISON: Chest Single View dated 05/17/2023; Chest Single View dated 04/17/2023; Chest Single View dated 01/17/2023; Chest Single View dated 12/29/2022 TECHNIQUE: Portable AP view of the chest. FINDINGS: The lungs are clear. Under aeration somewhat limits evaluation. No pneumothorax or effusio n. The cardiomediastinal contours are unremarkable. IMPRESSION: No acute cardiopulmonary process.
[2023-06-14 22:45] LABS: ALT/SGPT 24 U/L (13-56); AST/SGOT 19 U/L (15-37); Albumin 3.1 g/dL (3.4-5.0); Alkaline Phosphatase 54 U/L (45-117); BUN Blood Urea Nitrogen 11 mg/dL (7-18); Bicarbonate 28 mEq/L (21-32); Bilirubin Total 0.3 mg/dL (0.2-1.0); Glomerular Filtration Rate 84 ml/min (=/>90); Glucose Level 101 mg/dL (74-106); NT PRO-BNP 100 pg/mL (<125); Potassium 3.3 mEq/L (3.5-5.1); Protein, Total 7.9 g/dL (6.4-8.2); Sodium Level 143 mEq/L (136-145); Troponin High Sensitivity 6.3 pg/mL (<58.9)
[2023-06-14 22:46] LABS: Protime INR 0.96
[2023-06-14 22:48] LABS: Bilirubin Direct < 0.1 mg/dL (0-0.2); Bilirubin Indirect, Calculated ND mg/dL (0.2-0.8)
--- NOTE | 2023-06-14 22:53 | EDPHYS ---
Physician Documentation [facility] Name: Dori Guardado Age: 48 yrs Sex: Female : 1975 Arrival Date: 06/14/2023 Time: 21:17 Bed 6 Private MD: ED Physician Hardy Yee HPI: 06/14 21:40 This 48 yrs old Black Female presents to ER via Unassigned with complaints of sidney palpitations, anxious. 21:40 The patient presents with a history of heart racing, heart skipping beats. Context: The sidney symptoms occur with anxiety. Onset: The symptoms/episode began/occurred 1 day(s) ago. Modifying factors: The symptoms are aggravated by anxiety. anxious, palpitations. Associated signs and symptoms: Pertinent positives: anxiety. Historical: - PMHx: 21:45 Atrial Fib; bowel obstruction; Crohn's; Hypertension; rv - PSHx: 21:45 Appendectomy; section; Cholecystectomy; partial hysterectomy; rv - Immunization history:: Adult Immunizations up to date. - Social history:: Smoking status: Patient denies any tobacco usage or history of. - Family history:: not pertinent. ROS: 21:40 Constitutional: Negative for fever, chills, and weight loss, Eyes: Negative for injury, sidney pain, redness, and discharge, ENT: Negative for injury, pain, and discharge, Neck: Negative for injury, pain, and swelling, Cardiovascular: Negative for chest pain, palpitations, and edema, Respiratory: Negative for shortness of breath, cough, wheezing, and pleuritic chest pain, Abdomen/GI: Negative for abdominal pain, nausea, vomiting, diarrhea, and constipation, Back: Negative for injury and pain, : Negative for injury, bleeding, discharge, and swelling, MS/Extremity: Negative for injury and deformity, Skin: Negative for injury, rash, and discoloration, Neuro: Negative for headache, weakness, numbness, tingling, and seizure, Psych: Negative for depression, anxiety, suicide ideation, homicidal ideation, and hallucinations, Allergy/Immunology: Negative for hives, rash, and allergies, Endocrine: Negative for neck swelling, polydipsia, polyuria, polyphagia, and marked weight changes, Hematologic/Lymphatic: Negative for swollen nodes, abnormal bleeding, and unusual bruising, 21:40 Cardiovascular: Positive for palpitations, Exam: 21:40 Constitutional: This is a well developed, well nourished patient who is awake, alert, sidney and in no acute distress. Head/Face: Normocephalic, atraumatic. Eyes: Pupils equal round and reactive to light, extra-ocular motions intact. Lids and lashes normal. Conjunctiva and sclera are non-icteric and not injected. Cornea within normal limits. Periorbital areas with no swelling, redness, or edema. ENT: Nares patent. No nasal discharge, no septal abnormalities noted. Tympanic membranes are normal and external auditory canals are clear. Oropharynx with no redness, swelling, or masses, exudates, or evidence of obstruction, uvula midline. Mucous membranes moist. Neck: Trachea midline, no thyromegaly or masses palpated, and no cervical lymphadenopathy. Supple, full range of motion without nuchal rigidity, or vertebral point tenderness. No Meningismus. Chest/axilla: Normal chest wall appearance and motion. Nontender with no deformity. No lesions are appreciated. Cardiovascular: Regular rate and rhythm with a normal S1 and S2. No gallops, murmurs, or rubs. Normal PMI, no JVD. No pulse deficits. Respiratory: Lungs have equal breath sounds bilaterally, clear to auscultation and percussion. No rales, rhonchi or wheezes noted. No increased work of breathing, no retractions or nasal flaring. Abdomen/GI: Soft, non-tender, with normal bowel sounds. No distension or tympany. No guarding or rebound. No evidence of tenderness throughout. Back: No spinal tenderness. No costovertebral tenderness. Full range of motion. Skin: Warm, dry with normal turgor. Normal color with no rashes, no lesions, and no evidence of cellulitis. MS/ Extremity: Pulses equal, no cyanosis. Neurovascular intact. Full, normal range of motion. Neuro: Awake and alert, GCS 15, oriented to person, place, time, and situation. Cranial nerves II-XII grossly intact. Motor strength 5/5 in all extremities. Sensory grossly intact. Cerebellar exam normal. Normal gait. Psych: Awake, alert, with orientation to person, place and time. Behavior, mood, and affect are within normal limits. 21:40 Musculoskeletal/extremity: ROM: no acute changes, Circulation is intact in all extremities. Sensation intact. Compartment Syndrome exam of affected extremity: is normal. Weight bearing: able to fully bear weight, DVT Exam: No signs of deep vein thrombosis. no pain, no swelling, no tenderness, negative Homans' sign noted on exam, no appreciated bluish discoloration, no erythema, no increased warmth, 21:54 ECG was reviewed by the Attending Physician. [facility] Vital Signs: 21:41 BP 146 / 94; Pulse 75; Resp 16; Temp 98.6; Pulse Ox 100% ; Weight 129.27 kg; Height 5 rv ft. 3 in. ; 22:40 BP 130 / 87; Pulse 75; Resp 19; Pulse Ox 100% on R/A; kd3 23:25 BP 132 / 93; Pulse 71; Resp 16; Temp 98; Pulse Ox 99% on R/A; rv 21:41 Body Mass Index 50.48 (129.27 kg, 160.02 cm) rv MDM: 21:30 Patient medically screened. sidney 21:44 Differential diagnosis: arrythmia, dehydration, stress disorder. Differential Diagnosis sidney sepsis. Data reviewed: vital signs, nurses notes, EMS record, lab test result(s), EKG, radiologic studies, plain films. Consideration of Admission/Observation Escalation of care including admission/observation considered. I considered the following discharge prescriptions or medication management in the emergency department Medications were administered in the Emergency Department. See MAR. Independent interpretation of the following test(s) in the Emergency Department EKG: See my EKG interpretation above. Test considered but Not performed: CT: no ct chest. Historians other than the Patient: EMS: ems well informed. Care significantly affected by the following chronic conditions: Hypertension, Obesity. 06/14 21: Order name: Basic Metabolic Panel; Complete Time: :52 [facility] 06/14 21: Order name: CBC with Diff; Complete Time: 22:45 [facility] 06/14 21: Order name: LFT's; Complete Time: :52 [facility] 06/14 21: Order name: Magnesium; Complete Time: :52 [facility] 06/14 21: Order name: NT PRO-BNP; Complete Time: 22:52 [facility] 06/14 21:33 Order name: PT-INR; Complete Time: :52 [facility] 06/14 21:33 Order name: Troponin HS; Complete Time: :52 [facility] 06/14 21:33 Order name: TSH; Complete Time: 22:52 [facility] 06/14 21:33 Order name: XRAY Chest (1 view); Complete Time: 22:45 [facility] 06/14 21:33 Order name: EKG; Complete Time: 21:34 [facility] 06/14 21:33 Order name: Cardiac monitoring; Complete Time: 21:47 [facility] 06/14 21:33 Order name: EKG - Nurse/Tech; Complete Time: 21:47 [facility] 06/14 21:33 Order name: IV Saline Lock; Complete Time: 21:47 [facility] 06/14 21:33 Order name: Labs collected and sent; Complete Time: 21:47 [facility] 06/14 21:33 Order name: O2 Per Protocol; Complete Time: 21:47 [facility] 06/14 21:33 Order name: O2 Sat Monitoring; Complete Time: 21:47 [facility] EC:54 Rate is 73 beats/min. Rhythm is regular. QRS [place] is Normal. NV interval is normal. QRS sidney interval is normal. QT interval is normal. No Q waves. T waves are Normal. No ST changes noted. Clinical impression: Normal ECG and No evidence of ischemia. Interpreted by me. Reviewed by me. Administered Medications: 22:14 Drug: Ativan IVP 1 mg IVP once Route: IVP; Site: right forearm; rv 23:25 Follow up: Response: No adverse reaction rv 23:25 Not Given (Patient Refused): potassiumeffervescent tablet 25 meq PO once; dissolve in 4 rv ounces of water or juice Disposition Summary: 06/14/23 22:53 Discharge Ordered Notes: Location: Home sidney Problem: new sidney Symptoms: have improved sidney Condition: Stable sidney Diagnosis - Palpitations sidney - Unspecified atrial fibrillation - history sidney - Anxiety disorder, unspecified sidney - Hypokalemia sidney Followup: sidney - With: Private Physician - When: 2 - 3 days - Reason: Recheck today's complaints, Continuance of care, Re-evaluation by your physician Followup: sidney - With: Tye Santiago MD - When: 5 - 6 days - Reason: Recheck today's complaints, Re-evaluation by your physician Followup: sidney - With: Avery Holt MD - When: 2 - 3 days - Reason: Recheck today's complaints, Continuance of care, Re-evaluation by your physician Discharge Instructions: - Discharge Summary Sheet sidney - Atrial Fibrillation sidney - Potassium Content of Foods sidney - Palpitations sidney - Palpitations, [id number] sidney - Generalized Anxiety Disorder, Adult sidney - Hypokalemia sidney - Supporting Someone With Anxiety sidney - Managing Anxiety, Adult sidney Forms: - Medication Reconciliation Form [facility] - Thank You Letter [facility] - Antibiotic Education sidney - Prescription Opioid Use sidney - Patient Portal Instructions [facility] - Leadership Thank You Letter [facility] Prescriptions: - Diflucan 150 mg Oral tablet - take 1 tablet ORAL route one time for 1 day; 2 tablet; Refills: 0, Product [facility] Selection Permitted - Xanax 0.5 mg Oral Tablet - take 1 tablet ORAL route every 8 hours As needed; 20 tablet; Refills: 0, [facility] Product Selection Permitted Signatures: Dispatcher [employer] Hardy Alfaro MD MD cha Vicente, Ronaldo RN RN rv
--- NOTE | 2023-06-14 22:53 | ER ---
Nurse's Notes [facility] Name: Dori Guardado Age: 48 yrs Sex: Female : 1975 Arrival Date: 06/14/2023 Time: 21:17 Bed 6 Private MD: Diagnosis: Palpitations;Unspecified atrial fibrillation-history;Anxiety disorder, unspecified;Hypokalemia Presentation: 06/14 21:41 Chief complaint: EMS states: pt is from home, started feeling anxious, took newly rv prescribed meds, went to sleep, woke up feeling lightheaded, dizzy, palpitations. NSR on the monitor, VS stable, 100 in RA. Coronavirus screen: At this time, the client does not indicate any symptoms associated with coronavirus-19. Ebola Screen: No symptoms or risks identified at this time. Initial Sepsis Screen: Does the patient meet any 2 criteria? No. Patient's initial sepsis screen is negative. Does the patient have a suspected source of infection? No. Patient's initial sepsis screen is negative. Risk Assessment: Do you want to hurt yourself or someone else? Patient reports no desire to harm self or others. Onset of symptoms was June 14, 2023. 21:41 Method Of Arrival: EMS: [facility] rv 21:41 Acuity: KASH 3 rv Triage Assessment: 21:45 General: Appears comfortable, Behavior is calm, cooperative. Pain: Denies pain. Neuro: rv Level of Consciousness is awake, alert, obeys commands, Oriented to person, place, time, situation. Cardiovascular: Capillary refill < 3 seconds Patient's skin is warm and dry. Rhythm is regular. Respiratory: Airway is patent Respiratory effort is even, unlabored. Derm: Skin is intact. Historical: - PMHx: 21:45 Atrial Fib; bowel obstruction; Crohn's; Hypertension; rv - PSHx: 21:45 Appendectomy; section; Cholecystectomy; partial hysterectomy; rv - Immunization history:: Adult Immunizations up to date. - Social history:: Smoking status: Patient denies any tobacco usage or history of. - Family history:: not pertinent. Screenin:46 [facility] ED Fall Risk Assessment (Adult) History of falling in the last 3 months, rv including since admission No falls in past 3 months (0 pts) Score/Fall Risk Level 0 - 2 = Low Risk Oriented to surroundings, Maintained a safe environment, Educated pt \T\ family on fall prevention, incl call for assistance when getting out of bed, Assessed \T\ reinforced patient's understanding of fall precautions, Provided non-skid footwear, Hourly rounding (assess needs \T\ fall precautionary measures) done, Used ambulatory aids as needed (educated on \T\ assisted with), Used gait belt as appropriate. Abuse screen: Denies threats or abuse. Denies injuries from another. Nutritional screening: No deficits noted. Tuberculosis screening: No symptoms or risk factors identified. Assessment: 22:13 Reassessment: see triage notes. rv Vital Signs: 21:41 BP 146 / 94; Pulse 75; Resp 16; Temp 98.6; Pulse Ox 100% ; Weight 129.27 kg; Height 5 rv ft. 3 in. ; 22:40 BP 130 / 87; Pulse 75; Resp 19; Pulse Ox 100% on R/A; kd3 23:25 BP 132 / 93; Pulse 71; Resp 16; Temp 98; Pulse Ox 99% on R/A; rv 21:41 Body Mass Index 50.48 (129.27 kg, 160.02 cm) rv ED Course: 21:29 Patient arrived in ED. rv1 21:30 Hardy Yee MD is Attending Physician. sidney 21:40 Rl Solis, LEONA is Primary Nurse. rv 21:45 Triage completed. rv 21:45 Arm band placed on right wrist. rv 21:46 Patient has correct armband on for positive identification. Client placed on continuous rv cardiac and pulse oximetry monitoring. NIBP monitoring applied. data librarian on. 22:00 Initial lab(s) drawn, by me, sent to lab. rv 22:19 XRAY Chest (1 view) In Process Unspecified. EDMS 22:53 Tye Santiago MD is Referral Physician. sidney 22:53 Avery Holt MD is Referral Physician. sidney 23:25 No provider procedures requiring assistance completed. IV discontinued, intact, rv bleeding controlled, No redness/swelling at site. Pressure dressing applied. Administered Medications: 22:14 Drug: Ativan IVP 1 mg IVP once Route: IVP; Site: right forearm; rv 23:25 Follow up: Response: No adverse reaction rv 23:25 Not Given (Patient Refused): potassiumeffervescent tablet 25 meq PO once; dissolve in 4 rv ounces of water or juice Medication: 21:46 VIS not applicable for this client. rv Outcome: 22:53 Discharge ordered by . sidney 23:25 Discharged to home ambulatory, with family, rv 23:25 Condition: stable 23:25 Discharge instructions given to patient, Instructed on discharge instructions, follow up and referral plans. medication usage, Demonstrated understanding of instructions, follow-up care, medications, Prescriptions given X 2, 23:26 Patient left the ED. rv Signatures: Dispatcher [employer] EDMS Hardy Yee MD MD cha Vicente, Ronaldo RN RN rv Chela Combs RN RN 3 Lynda Correa rv1
[2023-06-15 01:23] VITALS: BP 132/93; TEMP 98; O2SAT 99
== END 2023-06-14 23:26 | disposition home or self-care (01) ==
LOC: ER 21:17
DX: I48.91 Unspecified atrial fibrillation (principal); F41.9 Anxiety disorder, unspecified; E87.6 Hypokalemia; I10 Essential (primary) hypertension
CPT/HCPCS: 85025; 80048; 36415; 83735; 85610; 80076; 84443; 84484; 83880; 71045; J7040

== ENCOUNTER 2023-06-29 11:45 | Emergency (ER) | payer OTHER ==
--- OUTSIDE RECORDS SUMMARY | 2023-06-29 11:55 | XMS REPORT | Continuity of Care Document ---
:1975 Author Organization [facility] t Address [address] [facility] [address] [place] [address] Care Team Providers Name Role Phone Sree Lynchkevin Tabor Primary Care Physician Taylor Chung Attending Clinician Unavailable Karol Rich Attending Clinician Unavailable Noemy Lopez Attending Clinician Unavailable LICO TREVIZO Attending Clinician Unavailable LUCY CUEVAS Attending Clinician Unavailable LUCY CUEVAS Attending Clinician Unavailable CHRISTINA OSORIO Attending Clinician Unavailable CHRISTINA OSORIO Attending Clinician Unavailable Justo Koehler Attending Clinician MAC LEWIS Attending Clinician Unavailable MAC LEWIS Attending Clinician Unavailable Lico Trevizo MD Attending Clinician [facility], [facility] Attending Clinician Unavailable Christina Osorio MD Attending Clinician Doctor Unassigned, [place] Attending Clinician Unavailable Vanesa Nunez Attending Clinician Unavailable Raissa Tran DO Attending Clinician Noemy Lopez Admitting Clinician Unavailable Payers Payer Name Policy Type Policy Number Effective Date Expiration Date Hope fregoso [facility] [id number] 2020 HEALTH CHOICE 00:00:00 [place] [id number] 2020 Common Spiri t Health Choice 00:00:[address] [facility] [place] [id number] 2020 Common Spiri t Health Choice 00:00:[address] [facility] [place] [id number] 2020 Common Spiri t Health Choice 00:00:00 - [facility] Problems Condition Condition Condition Status Onset Resolution Last Treating Co mments Source Name Details Category Date Date Treatment Clinician Date AFIB/I48.0 Diagnosis Active 2023-05-30 Memoria AFIB/I48.0 04-18 09:01:00 l Active 00:00: [place] 04/18/2023 00 [facility] [id number] Microcytic Problem Co mmon anemia [facility] [id number] Pain, [place] [id number] joint, [facility] knee, [facility] right [facility] [id number] Sinusitis, Problem Com mon maxillary, [facility] chronic [facility] [id number] Recurrent Problem Com mon falls [facility] [id number] Balance Problem Commo n problem [facility] Morbid Obesity, Problem Common obesity morbid, Spirit BMI 50 or - CHI higher [facility] [id number] Crohn's Problem Commo n disease in [facility] remission [facility] Iron Iron Problem Common deficiency deficiency Sp jose anemia anemia, - CHI unspecifie [facility] iron [facility] deficiency Medica l anemia Center type [id number] Adult Problem Common general [facility] medical [facility] exam [facility] [id number] Hematuria, Problem Com mon unspecifie [facility] d [facility] [id number] Multiple Problem Commo n joint pain [facility] [id number] Urinary Problem Common tract [facility] infection, - [facility] site not [facility] [id number] BMI Problem Common 50.0-59.9, Spirit adult [facility] [id number] Vitamin D Problem Comm on deficiency Spirit - [facility] [id number] Grieving Problem Comm on Spirit - [facility] [id number] Seasonal Problem Comm on allergic Spirit rhinitis, - CHI unspecifie d [facility] [id number] Abdominal Problem Com mon bloating [facility] [id number] Seasonal Problem Commo n allergic Spirit rhinitis - CHI due to [facility] Mixed Depression Problem Commo n anxiety with Spirit and anxiety - CHI depressive [facility] [id number] Other Problem Common chronic Spirit pain - [facility] [id number] Esophageal Problem Com mon stricture [facility] Gastroesop Gastroeso Problem Active 2023-05-30 Memoria hageal phageal 00:40:15 l reflux reflux [place] disease disease (disorder) (disorder) Active Problem 05/30/2023 [facility] Hypertensi Hypertens Problem Active 2023-05-30 Memoria ve papo 00:40:15 l disorder, disorder, Herm erich systemic systemic arterial arterial (disorder) (disorder) Active Problem 05/30/2023 [facility] Rheumatoid Rheumatoi Problem Active 2023-05-30 Memoria arthritis d 00:40:15 l (disorder) arthritis Her dumont (disorder) Active Problem 05/30/2023 [facility] Sleep Sleep Problem Active 2023-05-30 Memor ia apnea apnea 00:40:15 l (finding) (finding) Herm erich Active Problem 05/30/2023 [facility] PAROXYSMAL PAROXYSMA Diagnosis Active 2023-05-30 Memoria ATRIAL L ATRIAL 09:01:00 l FIBRILLATI FIBRILLATI He rmann ON ON Active [facility] Atrial Atrial Problem Active 2023-05-30 Delvis dayanna fibrillati fibrillati 00:40:15 l on on [place] (disorder) (disorder) Active Problem 05/30/2023 [facility] Crohn's Crohn's Problem Active 2023-05-30 Me moria disease disease 00:40:15 l (disorder) (disorder) He rmann Active Problem 05/30/2023 [facility] No known No known Disease Unive rs active active ity of problems problems [facility] Allergies, Adverse Reactions, Alerts Allergy Allergy Status Severity Reaction(s) Onset Inactive Treating Comm ents Source Name Type Date Date Clinician No Known DA Active U 2020-09 [facility] Allergie 0-28 [place] s 00:00: d 00 [facility] No Known DA Active U 2020-09 [facility] Allergie 0-28 [place] s 00:00: d 00 [facility] No Known No Known Active Memori a Medicati Medicati l on on [place] Allergie Allergie s s NKFA NKFA Active Memoria l [place] NO KNOWN Drug Active [facility] ALLERGIE Class ity of S [facility] Social History Social Habit Start Date Stop Date Quantity Comments Source History of Tobacco Common Spirit - Use [facility] Sex Assigned At Common Sp jose - [facility] Gender identity [facility] Sexual orientation [facility] History of Social 2023-05-01 2023-05-01 Univers ity of function 00:00:00 00:00:00 [facility] Tobacco use and 2023-03-20 2023-03-20 Smokeless Universit y of exposure 00:00:00 00:00:00 tobacco non-user [facility] Smoking Status Start Date Stop Date Source Tobacco smoking consumption [facility] Tobacco smoking status [facility] Medications Ordered Filled Start Stop Current [...] l oral tablet 14:44: PRN, PRN He r[place] 00 Allergies famotidine Yes 40 mg = 1 Me moria 40 mg oral 8-23 tab, PO, l tablet 14:44: Bedtime [place] 00 omeprazole Yes 40 mg = 1 Me moria 40 mg oral 8-23 cap, PO, l delayed 14:44: QAM [place] release 00 capsule Eliquis 5 Yes 5 mg, PO, Mem oria mg oral 8-23 Q12H, For l tablet 14:43: Atrial [place] 00 Fibrilatio n sulfaSALAzi 0 Yes 1,000 mg = Memoria ne 500 mg 8-23 2 tab, PO, l oral tablet 14:42: BID Nain sotalol 80 2022-0 Yes 80 mg = 1 Me moria mg oral 8-23 tab, PO, l tablet 14:42: BID chlorthalid 2022-0 Yes 25mg Take 1 Univ ers one 25 mg 8-07 tablet by ity o f tablet 10:24: mouth in [place] 11 the Medical morning. Branch chlorthalid 3-0 Yes 25mg Take 1 Univ ers one 25 mg 8-07 tablet by ity o f tablet 10:24: mouth in [place] 11 the Medical morning. Branch chlorthalid 3-0 Yes 25mg Take 1 Univ ers one 25 mg 8-07 tablet by ity o f tablet 10:24: mouth in [place] 11 the Medical morning. Branch chlorthalid 3-0 Yes 25mg Take 1 Univ ers one 25 mg 7-24 tablet by ity o f tablet 08:13: mouth in [place] 44 the Medical morning. Branch triamterene 2022-0 [...] morning. Branc h per capsule triamterene 2022-0 202- No 1{capsu Take 1 Univers -hydrochlor 7-20 [...] morning. Branc h per capsule sotaloL 80 2022-2022- No 80mg Take 1 Univ ers mg tablet 03-29-05 tablet by ity of 14:59: 00:00 mouth in [place] 32 :00 [facility] and 1 tablet in the evening. Pt takes 40 mg in the AM and 40 mg in PM apixaban 5 2022-0 2022- No 5mg Take 1 Univ ers mg tablet 03-29-05 tablet by ity of 14:59: 00:00 mouth in [place] [address] :00 [facility] and 1 tablet in the evening. sotaloL 80 2022-2022- No 80mg Take 1 Univ ers mg tablet 03-29-05 tablet by ity of 14:59: 00:00 mouth in [place] 32 :00 [facility] and 1 tablet in the evening. Pt takes 40 mg in the AM and 40 mg in PM apixaban 5 2022-2022- No 5mg Take 1 Univ ers mg tablet 03-29-05 tablet by ity of 14:59: 00:00 mouth in [place] [address] :00 [facility] and 1 tablet in the evening. sotaloL 80 2022-2022- No 80mg Take 1 Univ ers mg tablet 03-29-05 tablet by ity of 14:59: 00:00 mouth in [place] 32 :00 [facility] and 1 tablet in the evening. Pt takes 40 mg in the AM and 40 mg in PM apixaban 5 2022-0 2022- No 5mg Take 1 Univ ers mg tablet 03-29-05 tablet by ity of 14:59: 00:00 mouth in [place] [address] :00 [facility] and 1 tablet in the evening. sotaloL 80 2022-0 2022- No 80mg Take 1 Univ ers mg tablet 03-29-05 tablet by ity of 14:59: 00:00 mouth in [place] [address] :00 [facility] and 1 tablet in the evening. Pt takes 40 mg in the AM and 40 mg in PM apixaban 5 2022-0 2022- No 5mg Take 1 Univ ers mg tablet 7-05 07-05 tablet by ity of 14:59: 00:00 mouth in [place] 32 :00 the Medical morning Branch and 1 tablet in the evening. sotaloL 80 2022-0 Yes [id number] 80mg Take 1 Univers mg tablet 7-05 tablet by ity o f 00:00: mouth in [place] 00 the Medical morning Branch and 1 tablet in the evening. Pt takes 40 mg in the AM and 40 mg in PM apixaban 5 2022-0 Yes 1358 5mg Take 1 Unive rs mg tablet 7-05 tablet by ity o f 00:00: mouth in [place] 00 the Medical morning Branch and 1 tablet in the evening. Indication s: atrial fibrillati on apixaban 5 2022-0 Yes 1358 5mg Take 1 Unive rs mg tablet 7-05 tablet by ity o f 00:00: mouth in [place] 00 the Medical morning Branch and 1 tablet in the evening. Indication s: atrial fibrillati on sotaloL 80 2022-0 Yes [id number] 40mg Take 0.5 Univers mg tablet 7-05 tablets by ity of 00:00: mouth in [place] 00 the Medical morning Branch and 0.5 tablets in the evening. Pt takes 40 mg in the AM and 40 mg in PM apixaban 5 2022-0 Yes 1358 5mg Take 1 Unive rs mg tablet 7-05 tablet by ity o f 00:00: mouth in [place] 00 the Medical morning Branch and 1 tablet in the evening. Indication s: atrial fibrillati on sotaloL 80 2022-0 Yes [id number] 40mg Take 0.5 Univers mg tablet 7-05 tablets by ity of 00:00: mouth in [place] 00 the Medical morning Branch and 0.5 tablets in the evening. Pt takes 40 mg in the AM and 40 mg in PM apixaban 5 2022-0 Yes 1358 5mg Take 1 Unive rs mg tablet 7-05 tablet by ity o f 00:00: mouth in [place] 00 the Medical morning Branch and 1 tablet in the evening. Indication s: atrial fibrillati on sotaloL 80 2022-0 Yes [id number] 40mg Take 0.5 Univers mg tablet 7-05 tablets by ity of 00:00: mouth in [place] [address] the Medical morning Branch and 0.5 tablets in the evening. Pt takes 40 mg in the AM and 40 mg in PM apixaban 5 2022-0 Yes 1358 5mg Take 1 Unive rs mg tablet 7-05 tablet by ity o f 00:00: mouth in [place] 00 the Medical morning Branch and 1 tablet in the evening. Indication s: atrial fibrillati on sotaloL 80 2022-0 Yes [id number] 40mg Take 0.5 Univers mg tablet 7-05 tablets by ity of 00:00: mouth in [place] [address] the Medical morning Branch and 0.5 tablets in the evening. Pt takes 40 mg in the AM and 40 mg in PM apixaban 5 2022-0 Yes 1358 5mg Take 1 Unive rs mg tablet 7-05 tablet by ity o f 00:00: mouth in [place] [address] the [facility] morning Branch and 1 tablet in the evening. Indication s: atrial fibrillati on sotaloL 80 0 Yes [id number] 40mg Take 0.5 Univers mg tablet 7-05 tablets by ity of 00:00: mouth in [place] [address] the [facility] morning [place] and 0.5 tablets in the evening. Pt takes 40 mg in the AM and 40 mg in PM apixaban 5 2022-0 Yes 1358 5mg Take 1 Unive rs mg tablet 7-05 tablet by ity o f 00:00: mouth in [place] [address] the [facility] morning Branch and 1 tablet in the evening. Indication s: atrial fibrillati on sotaloL 80 2022-0 Yes [id number] 40mg Take 0.5 Univers mg tablet 7-05 tablets by ity of 00:00: mouth in [place] [address] the [facility] morning Branch and 0.5 tablets in the evening. Pt takes 40 mg in the AM and 40 mg in PM apixaban 5 2022-0 Yes 1358 5mg Take 1 Unive rs mg tablet 7-05 tablet by ity o f 00:00: mouth in [place] [address] the [facility] morning Branch and 1 tablet in the evening. Indication s: atrial fibrillati on sotaloL 80 2022-0 Yes [id number] 40mg Take 0.5 Univers mg tablet 7-05 tablets by ity of 00:00: mouth in [address] morning Branch and 0.5 tablets in the evening. Pt takes 40 mg in the AM and 40 mg in PM apixaban 5 2023-0 Yes 1358 5mg Take 1 Unive rs mg tablet 7-05 tablet by ity o f 00:00: mouth in [place] 00 the Medical morning Branch and 1 tablet in the evening. Indication s: atrial fibrillati on sotaloL 80 Yes [id number] 40mg Take 0.5 Univers mg tablet 7-05 tablets by ity of 00:00: mouth in [place] 00 the Medical morning Branch and 0.5 tablets in the evening. Pt takes 40 mg in the AM and 40 mg in PM apixaban 5 Yes 1358 5mg Take 1 Unive rs mg tablet 7-05 tablet by ity o f 00:00: mouth in [place] 00 the Medical morning Branch and 1 tablet in the evening. Indication s: atrial fibrillati on sotaloL 80 Yes [id number] 40mg Take 0.5 Univers mg tablet 7-05 tablets by ity of 00:00: mouth in [place] 00 the Medical morning Branch and 0.5 tablets in the evening. Pt takes 40 mg in the AM and 40 mg in PM sotaloL 80 Yes [id number] 80mg Take 1 Univers mg tablet 7-05 tablet by ity o f 00:00: mouth in [place] 00 the Medical morning Branch and 1 tablet in the evening. Pt takes 40 mg in the AM and 40 mg in PM apixaban 5 Yes 1358 5mg Take 1 Unive rs mg tablet 7-05 tablet by ity o f 00:00: mouth in [place] 00 the Medical morning Branch and 1 tablet in the evening. Indication s: atrial fibrillati on sotaloL 80 0 2022- No [id number] 80mg Take 1 Univers mg tablet 7-05 07-05 tablet by ity of 00:00: 00:00 mouth in [place] 00 :00 the Medical morning Branch and 1 tablet in the evening. Pt takes 40 mg in the AM and 40 mg in PM adalimumab Yes inject Unive rs (HUMIRA,CF, 6- under the ity of [place]) 15:30: skin. [place] [address] Medical Branch dicyclomine Yes 10mg Take 1 Univ ers 10 mg 6- capsule by ity of capsule 15:30: mouth as [place] [address] needed for Medical Abdominal Branch pain. vancomycin [...] the ity of [place]) 15:30: skin. [place] [address] Medical Branch dicyclomine 2023-0 Yes 10mg Take [...] the ity of [place]) 15:30: skin. [place] [address] Medical Branch dicyclomine 2023-0 Yes 10mg Take [...] the ity of [place]) 15:30: skin. [place] [address] Medical Branch dicyclomine 2023-0 Yes 10mg Take [...] the ity of [place]) 15:30: skin. [place] [address] Medical Branch dicyclomine 2023-0 Yes 10mg Take [...] the ity of [place]) 15:30: skin. [place] [address] Medical Branch dicyclomine 2023-0 Yes 10mg Take [...] the ity of [place]) 15:30: skin. [place] [address] Medical Branch dicyclomine 2023-0 Yes 10mg Take [...] the ity of [place]) 15:30: skin. [place] [address] Medical Branch dicyclomine 2023-0 Yes 10mg Take [...] the ity of [place]) 15:30: skin. [place] [address] Medical Branch dicyclomine 2023-0 Yes 10mg Take [...] the ity of [place]) 15:30: skin. [place] [address] Medical Branch dicyclomine 2023-0 Yes 10mg Take [...] the ity of [place]) 15:30: skin. [place] [address] Medical Branch dicyclomine 2023-0 Yes 10mg Take [...] the ity of [place]) 15:30: skin. [place] [address] Medical Branch dicyclomine 2023-0 Yes 10mg Take [...] by ity o f 15:30: mouth in [place] [address] the Medical morning Branch and 1 tablet in the evening. Pt takes 40 mg in the AM and 40 mg in PM apixaban 5 2023-0 Yes 5mg Take 1 Unive rs mg tablet 6-26 tablet by ity o f 15:30: mouth in [place] [address] the Medical morning Branch and 1 tablet in the evening. adalimumab 2023-0 Yes inject Unive rs (HUMIRA,CF, 6-26 under the ity of [place]) 15:30: skin. [place] [address] Medical Branch dicyclomine 2023-0 Yes 10mg Take 1 Univ ers 10 mg 6-26 capsule by ity of capsule 15:30: mouth as [place] [address] needed for Medical Abdominal Branch pain. vancomycin 2023-0 Yes 500mg Take 6 mL U nivers 500 mg/6 mL 6-26 by mouth ity of oral 15:30: in the [place] [address] morning Medical and 6 mL Branch at noon and 6 mL in the evening. metroNIDAZO 2023-0 Yes 500mg Take 1 Uni vers LE 500 mg 6-26 tablet by ity o f tablet 15:30: mouth [place] [address] every 12 Medical (twelve) Branch hours. sotaloL 80 2023-0 Yes 80mg Take 1 Unive rs mg tablet 6-26 tablet by ity o f 15:30: mouth in [place] [address] the Medical morning Branch and 1 tablet in the evening. Pt takes 40 mg in the AM and 40 mg in PM apixaban 5 3-0 Yes 5mg Take 1 Unive rs mg tablet 6-26 tablet by ity o f 15:30: mouth in [place] [address] the Medical morning Branch and 1 tablet in the evening. adalimumab 2023-0 Yes inject Unive rs (HUMIRA,CF, 6-26 under the ity of [place]) 15:30: skin. [place] [address] Medical Branch dicyclomine 2023-0 Yes 10mg Take 1 Univ ers 10 mg 6-26 capsule by ity of capsule 15:30: mouth as [place] [address] needed for Medical Abdominal Branch pain. vancomycin [...] by ity o f tablet 15:30: mouth [place] [address] every 12 Medical (twelve) Branch hours. adalimumab 2022-0 Yes inject Unive rs (HUMIRA,CF, 6-26 under the ity of [place]) 15:30: skin. [place] [address] Medical Branch dicyclomine 2022-0 Yes 10mg Take 1 Univ ers 10 mg 6-26 capsule by ity of capsule 15:30: mouth as [place] 35 needed for Medical Abdominal Branch pain. [...] by ity o f tablet 15:30: mouth [place] [address] every 12 Medical (twelve) Branch hours. Kenalog [...] 20 MG 00:00: dtime} 00 Telmisartan Telmisartan 0 No 1{table QD [...] Unknown 7-27 00:00: 00 Augmentin Augmentin 2021-0 202- No 1{table BID Augmentin 500-125 MG 500-125 MG 03-30 07-13 t} 500-125 MG 00:00: 00:00 00 :00 Sudafed 12 2021-0 No 1mg Hour 120 mg 6-17 tablet,exte 00:00: nded 00 release Sudafed 12 2021-0 No 1mg Hour 120 mg 6-17 tablet,exte 00:00: nded 00 release guaiFENesin guaiFENesin 2021-0 2- No QID guaiFENesi -Codeine -Codeine 5-04 05-11 n-Codeine 100-10 100-10 00:00: 00:00 100-10 MG/5ML MG/5ML 00 :00 MG/5ML ProAir HFA 2021-0 No 2mcg/ac 90 4-29 tuation mcg/actuati 00:00: on aerosol 00 inhaler azithromyci 2021-0 No mg n 250 mg 01-21 tablet 00:00: 00 Dose 2021-0 No Unknown 4- 00:00: 00 Dose 2021-0 No Unknown 4- 00:00: 00 Dose 2-0 [...] 4- 00:00: 00 Dose 2-0 No Unknown 4-29 [...] 4-29 00:00: 00 Dose 2-0 No Unknown 4 [...] 4-29 00:00: 00 Mobic 7.5 Mobic 7.5 202-0 2022- No 1{table QD Mobic 7.5 MG MG 4-13 05-13 t} MG 00:00: 00:00 00 :00 Mobic 7.5 Mobic 7.5 2-0 2022- No 1{table QD Mobic 7.5 MG MG 4-13 05-13 t} MG 00:00: 00:00 00 :00 Mobic 7.5 Mobic 7.5 2021-0 2- No 1{table QD Mobic 7.5 MG MG [...] No Univers medications 0-09 ity of 19:54: [address] metoprolol 1-0 No 1mg tartrate 50 8-10 mg tablet 00:00: 00 omeprazole 1-0 No 1mg 20 mg 8-10 capsule,del 00:00: ayed 00 release metoprolol 1-0 No 1mg tartrate 50 8-10 mg tablet 00:00: 00 omeprazole 1-0 No 1mg 20 mg 8-10 capsule,del 00:00: ayed 00 release Flonase 50 Flonase 50 1-0 No 2{spray QD Flonase 50 MCG/ACT MCG/ACT 04-28 _in_eac MCG/ACT 00:00: h_nostr 00 il} Cetirizine [...] mg tablet fluticasone 0 No mcg/act propionate 04 uation 50 00:00: mcg/actuati 00 on nasal spray,suspe nsion Pantoprazol Pantoprazol Yes Na Lopez 1 tablet Common e Sodium e Sodium 05-04 Spirit 00:00: - [facility]I 00 [facility] Ergocalcife Ergocalcife 2018-09- No Na Lopez 1 capsule Common rol rol -18 11-10 Spirit 00:00: 00:00 - CHI 00 :00 [facility] Paxil Paxil 0 Yes Na Lopez 1 tablet Comm on 12-26 in the Spirit 00:00: morning - CHI 00 [facility] Humira Humira Yes Na Lopez not Common defined [facility] Aspirin Aspirin Yes Na Lopez not Common [facility] BusPIRone BusPIRone Yes Na Lopez 1 tablet Common HCl HCl [facility] Metoprolol Metoprolol Yes Na Lopez 1 tablet Common [facility] T[facility] L[facility]rio Lagevrio No 4{capsu BID Lagevrio [...] MG Ergocalcife Ergocalcife No 1{capsu Ergocalcif rol 10188 rol 42544 le} fortunato [address] UNIT UNIT UNIT Gabapentin Gabapentin No 1{capsu [...] MCG/ACT Ergocalcife Ergocalcife No 1{capsu Ergocalcif rol 51957 rol 89875 le} fortunato 46868 UNIT UNIT UNIT Gabapentin Gabapentin No 1{capsu [...] MG Ergocalcife Ergocalcife No 1{capsu Ergocalcif rol 23054 rol 47719 le} fortunato 03702 UNIT UNIT UNIT Montelukast Montelukast No 1{table [...] MG t} Ergocalcife Ergocalcife No 1{capsu rol 39656 rol 62196 le} UNIT UNIT Montelukast Montelukast No 1{table [...] MG Ergocalcife Ergocalcife No 1{capsu Ergocalcif rol 98554 rol 35718 le} fortunato 52551 UNIT UNIT UNIT Montelukast Montelukast No 1{table [...] MG Ergocalcife Ergocalcife No 1{capsu Ergocalcif rol 70111 rol 75445 le} fortunato 59270 UNIT UNIT UNIT Omeprazole Omeprazole No 1{capsu [...] MG Ergocalcife Ergocalcife No 1{capsu Ergocalcif rol 50697 rol 76238 le} fortunato 29183 UNIT UNIT UNIT Humira Humira No Humira [...] MG Ergocalcife Ergocalcife No 1{capsu Ergocalcif rol 69348 rol 14699 le} fortunato 07362 UNIT UNIT UNIT Famotidine Famotidine No 1{table [...] MG Ergocalcife Ergocalcife No 1{capsu Ergocalcif rol 90181 rol 97672 le} [place]ato 49426 UNIT UNIT UNIT busPIRone busPIRone No 1{table [...] MG Ergocalcife Ergocalcife No 1{capsu Ergocalcif rol 81109 rol 87050 le} fortunato 38409 UNIT UNIT UNIT Montelukast Montelukast No 1{table [...] MG Ergocalcife Ergocalcife No 1{capsu Ergocalcif rol 66734 rol 58492 le} fortunato 27725 UNIT UNIT UNIT Montelukast Montelukast No 1{table [...] MG Ergocalcife Ergocalcife No 1{capsu Ergocalcif rol 73241 rol 86491 le} fortunato 61444 UNIT UNIT UNIT Flonase 50 Flonase 50 [...] MG Ergocalcife Ergocalcife No 1{capsu Ergocalcif rol 43024 rol 38207 le} fortunato 89618 UNIT UNIT UNIT PARoxetine PARoxetine No PARoxetine [...] MG Ergocalcife Ergocalcife No 1{capsu Ergocalcif rol 32760 rol 69860 le} fortunato 97760 UNIT UNIT UNIT PARoxetine PARoxetine No PARoxetine [...] MG Ergocalcife Ergocalcife No 1{capsu Ergocalcif rol 35958 rol 40181 le} fortunato 23069 UNIT UNIT UNIT Aspirin 81 Aspirin 81 [...] MG Ergocalcife Ergocalcife No 1{capsu Ergocalcif rol 74509 rol 76162 le} fortunato 49078 UNIT UNIT UNIT ALPRAZolam ALPRAZolam No 1{table [...] MG Ergocalcife Ergocalcife No 1{capsu Ergocalcif rol 97226 rol 29969 le} fortunato 94407 UNIT UNIT UNIT ALPRAZolam ALPRAZolam No 1{table [...] MG Ergocalcife Ergocalcife No 1{capsu Ergocalcif rol 34282 rol 26332 le} fortunato 99693 UNIT UNIT UNIT ALPRAZolam ALPRAZolam No 1{table [...] MG Ergocalcife Ergocalcife No 1{capsu Ergocalcif rol 72958 rol 67107 le} fortunato 57736 UNIT UNIT UNIT Benzonatate Benzonatate No TID [...] MG Ergocalcife Ergocalcife No 1{capsu Ergocalcif rol 80468 rol 54372 le} fortunato 83935 UNIT UNIT UNIT Benzonatate Benzonatate No TID [...] MG Ergocalcife Ergocalcife No 1{capsu Ergocalcif rol 83046 rol 70450 le} fortunato 51813 UNIT UNIT UNIT Famotidine Famotidine No Famotidine [...] MG Ergocalcife Ergocalcife No 1{capsu Ergocalcif rol 21857 rol 83871 le} fortunato 89361 UNIT UNIT UNIT Famotidine Famotidine No Famotidine [...] MG Ergocalcife Ergocalcife No 1{capsu Ergocalcif rol 03699 rol 90610 le} fortunato 32090 UNIT UNIT UNIT Gabapentin Gabapentin No 1{capsu [...] MCG/ACT Ergocalcife Ergocalcife No 1{capsu Ergocalcif rol 92203 rol 93036 le} fortunato 35890 UNIT UNIT UNIT Gabapentin Gabapentin No 1{capsu [...] MG Ergocalcife Ergocalcife No 1{capsu Ergocalcif rol 69013 rol 01215 le} fortunato 69173 UNIT UNIT UNIT Montelukast Montelukast No Montelukas [...] MG Ergocalcife Ergocalcife No 1{capsu Ergocalcif rol 65829 rol 39881 le} fortunato 91850 UNIT UNIT UNIT Cetirizine Cetirizine No Cetirizine [...] MG Ergocalcife Ergocalcife No 1{capsu Ergocalcif rol 51298 rol 55679 le} fortunato 12361 UNIT UNIT UNIT Cetirizine Cetirizine No Cetirizine [...] MG Ergocalcife Ergocalcife No 1{capsu Ergocalcif rol 47194 rol 55774 le} fortunato 82474 UNIT UNIT UNIT Cetirizine Cetirizine No Cetirizine [...] MG Ergocalcife Ergocalcife No 1{capsu Ergocalcif rol 36774 rol 80750 le} fortunato 91346 UNIT UNIT UNIT Cetirizine Cetirizine No Cetirizine [...] MG Ergocalcife Ergocalcife No 1{capsu Ergocalcif rol 77373 rol 12241 le} fortunato 58323 UNIT UNIT UNIT Cetirizine Cetirizine No Cetirizine [...] MG Ergocalcife Ergocalcife No 1{capsu Ergocalcif rol 07245 rol 01160 le} fortunato 31713 UNIT UNIT UNIT guaiFENesin guaiFENesin No 10{ml_a [...] MG Ergocalcife Ergocalcife No 1{capsu Ergocalcif rol 35155 rol 91712 le} fortunato 06213 UNIT UNIT UNIT Meloxicam Meloxicam No Meloxicam [...] Source Systolic blood 2023-05-01 15:23:00 144 mm[Hg] [facility] Diastolic blood 2023-05-01 15:23:00 89 mm[Hg] Unive rsity of pressure [facility] Heart rate 2023-05-01 15:23:00 75 /min [facility] Respiratory rate 2023-05-01 15:23:00 17 /min Univ ersity of [facility] Body height 2023-05-01 15:23:00 160 cm [facility] Body weight 2023-05-01 15:23:00 135.671 kg [facility] BMI 2023-05-01 15:23:00 52.98 kg/m2 [facility] Oxygen saturation in 2023-05-01 15:23:00 99 /min University of Arterial blood by [facility] Pulse oximetry Branch Systolic blood 2023-03-20 20:35:00 133 mm[Hg] Univer sity of pressure [facility] Diastolic blood 2023-03-20 20:35:00 94 mm[Hg] Unive rsity of pressure [facility] Heart rate 2023-03-20 20:35:00 78 /min [facility] Oxygen saturation in 2023-03-20 20:35:00 95 /min [facility] Arterial blood by [facility] Pulse oximetry Branch Body temperature 2023-03-20 20:33:00 36.33 Gem Univ ersity of [facility] Respiratory rate 2023-03-20 20:33:00 18 /min Univ ersity of [facility] Body height 2023-03-20 20:33:00 160 cm [facility] Body weight 2023-03-20 20:33:00 134.537 kg [facility] BMI 2023-03-20 20:33:00 52.54 kg/m2 [facility] height 2022-08-31 08:20:00 63 [in_i] [facility] weight 2022-08-31 08:20:00 278 [lb_av] [facility] temperature 2022-08-31 08:20:00 98.5 [degF] [facility] bmi 2022-08-31 08:20:00 49.24 kg/m2 Common S pirit [facility] height 2022-08-10 10:20:00 63 [in_i] Common [facility] weight 2022-08-10 10:20:00 283 [lb_av] [facility] temperature 2022-08-10 10:20:00 98.5 [degF] Common [facility] bmi 2022-08-10 10:20:00 50.13 kg/m2 [facility] height 2022-06-22 10:20:00 63 [in_i] [facility] weight 2022-06-22 10:20:00 276 [lb_av] [facility] 2022-06-22 10:20:00 48.89 kg/m2 [facility] height 2022-04-26 17:00:00 63 [in_i] [facility] weight 2022-04-26 17:00:00 279 [lb_av] [facility] temperature 2022-04-26 17:00:00 97.9 [degF] [facility] bmi 2022-04-26 17:00:00 49.42 kg/m2 [facility] height 2022-01-05 14:00:00 63 [in_i] Common [facility] weight 2022-01-05 14:00:00 297 [lb_av] [facility] bmi 2022-01-05 14:00:00 52.61 kg/m2 [facility] blood pressure 2022-01-05 14:00:00 148 mm[Hg] [facility] blood pressure 2022-01-05 14:00:00 102 mm[Hg] [facility] diastolic [facility] height 2021-12-28 16:00:00 63 [in_i] Common [facility] weight 2021-12-28 16:00:00 300.4 [lb_av] [facility] temperature 2021-12-28 16:00:00 97.3 [degF] [facility] bmi 2021-12-28 16:00:00 53.21 kg/m2 [facility] oximetry 2021-12-28 16:00:00 100 % [facility] respiratory rate 2021-12-28 16:00:00 18 /min Comm on [facility] blood pressure 2021-12-28 16:00:00 137 mm[Hg] [facility] systolic [facility] blood pressure 2021-12-28 16:00:00 83 mm[Hg] [facility] diastolic [facility] height 2021-09-28 09:40:00 63 [in_i] [facility] weight 2021-09-28 09:40:00 283 [lb_av] [facility] temperature 2021-09-28 09:40:00 97.9 [degF] [facility] bmi 2021-09-28 09:40:00 50.13 kg/m2 [facility] height 2021-08-02 10:00:00 63 [in_i] [facility] weight 2021-08-02 10:00:00 282.6 [lb_av] [facility] temperature 2021-08-02 10:00:00 97.0 [degF] [facility] bmi 2021-08-02 10:00:00 50.05 kg/m2 [facility] oximetry 2021-08-02 10:00:00 97 % [facility] respiratory rate 2021-08-02 10:00:00 16 /min Comm on [facility] blood pressure 2021-08-02 10:00:00 140 mm[Hg] [facility] blood pressure 2021-08-02 10:00:00 62 mm[Hg] [facility] diastolic [facility] Systolic blood 2021-07-04 00:50:00 180 mm[Hg] Univer sity of pressure [facility] Diastolic blood 2021-07-04 00:50:00 110 mm[Hg] Unive rsity of pressure [facility] Heart rate 2021-07-04 00:50:00 79 /min Universi ty [facility] Body temperature 2021-07-04 00:50:00 36.67 Gem [facility] rate 2021-07-04 00:50:00 18 /min [facility] Body weight 2021-07-04 00:50:00 121.564 kg [facility] Oxygen saturation in 2021-07-04 00:50:00 99 /min University Arterial blood by [facility] Pulse oximetry Branch Heart Rate 2023-05-27 13:27:31 [facility] Systolic (mm Hg) 2023-05-27 13:25:25 Delvis rial [place] Diastolic (mm Hg) 2023-05-27 13:25:25 Mem [facility] [place] Temperature Oral (F) 2023-05-27 13:25:01 97.6 F [facility] Height 2023-05-26 15:06:00 5 [ft_i] [facility] Weight 2023-05-26 15:06:00 [facility] [place] BMI Calculated 2023-05-26 15:06:00 Memori al [place] Systolic (mm Hg) 2023-05-24 16:30:00 Delvis rial [place] Diastolic (mm Hg) 2023-05-24 16:30:00 Mem orial [place] Height 2023-05-24 15:00:00 5 [ft_i] [facility] Weight 2023-05-24 15:00:00 [facility] BMI Calculated 2023-05-24 15:00:00 Memori al [place] BP Systolic 2022-01-21 14:32:00 BP Diastolic 2022-01-21 14:32:00 Weight Measured 2022-01-21 14:32:00 276.00 pounds Height Measured 2022-01-21 14:32:00 63.00 inches Body Temperature 2022-01-21 14:32:00 Heart Rate 2022-01-21 14:32:00 Respiratory Rate 2022-01-21 14:32:00 Procedures Procedure Date / Time Performing Clinician Source Performed SLEEP STUDY DATA REPORT 2023-04-11 05:01:00 Doctor Unassigned, [facility] HB ECG ROUTINE & RHYTHM 2023-03-20 20:38:13 Lico Trevizo [facility] STRIP Medical Branch ASSIGNMENT OF BENEFITS 2023-03-20 20:13:23 Doctor Unassigned, [facility] REFERRAL- REQUEST/RESPONSE 2023-02-02 05:01:00 Doctor Nichole , [facility] Cardioversion 2023-01-03 05:00:00 Digna dumont XR CHEST 1 VW 2021-07-04 01:14:37 Raissa Tran [facility] [place] NOTICE OF PRIVACY 2021-07-04 00:45:31 [facility] CONSENT/REFUSAL FOR 2021-07-04 00:45:10 Doctor Unatracy, [facility] DIAGNOSIS AND TREATMENT [facility] Repair of small bowel [facility] H ermann obstruction Partial hysterectomy [facility] rmann 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Memoria l [place] stricture section [facility] Nain n Cholecystectomy [facility] [place] [facility] Planned Activity Planned Date Details Comments Source Goal Plan of Care Note [code = 49010-1] Goal Plan of Care Note [code = 16647-3] Goal Plan of Care Note [code = 27688-3] Goal Plan of Care Note [code = 49658-6] Goal Plan of Care Note [code = 48944-6] Goal Plan of Care Note [code = 62919-6] Goal Plan of Care Note [code = 60265-6] Goal Plan of Care Note [code = 05633-6] Goal Plan of Care Note [code = 95117-6] Goal Plan of Care Note [code = 51527-7] Goal Plan of Care Note [code = 95879-4] Goal Plan of Care Note [code = 55613-7] Goal Plan of Care Note [code = 78407-4] Goal Plan of Care Note [code = 24847-4] Goal Plan of Care Note [code = 94724-2] Goal Plan of Care Note [code = 79483-2] Encounters Start End Encounter Admission Attending Care Care Encounter Source Date/Time Date/Time Type Type Clinicians Facility Department ID 2023-02-24 Outpatient Chung, STLMLC STLMLC [id number] Common 14:59:00 Avnee [id number] [facility] 2023-01-23 Outpatient Chung, STLMLC STLMLC [id number] Common 09:09:00 Avnee [id number] [facility] 2022-12-29 Outpatient Chung, STLMLC STLMLC [id number] Common 15:24:00 Avnee [id number] [facility] 2022-12-21 Outpatient Layla, STLMLC STLMLC [id number] Common 09:47:00 Karol [id number] [facility] 2022-06-01 Outpatient Lopez, Na STLMLC STLMLC [id number] Common 09:18:00 [id number] [facility] 2022-04-13 Outpatient Lopez, Na STLMLC STLMLC [id number] Common 15:29:00 [facility] 2022-04-07 Outpatient Lopez, Na STLMLC STLMLC [id number] Common 16:07:00 [facility] 2022-01-04 Outpatient Lopez, Na STLMLC STLMLC [id number] Common 09:31:01 [facility] 2021-10-20 Outpatient Lopez, Na STLMLC STLMLC [id number] Common 14:09:55 [id number] [facility] 2021-10-20 Outpatient Lopez, Na STLMLC STLMLC [id number] Common 13:47:22 42509 [facility] 2021-10-20 Outpatient Lopez, Na STLMLC STLMLC [id number] Common 12:29:04 [id number] [facility] 2021-10-20 Outpatient Lopez, Na STLMLC STLMLC [id number] Common 12:03:44 [id number] [facility] 2021-10-20 Outpatient Lopez, Na STLMLC STLMLC [id number] Common 12:03:05 [id number] [facility] 2021-10-20 Outpatient Lopez, Na STLMLC STLMLC [id number] Common 11:43:49 46959 [facility] 2021-10-20 Outpatient Lopez, Na STLMLC STLMLC [id number] Common 11:35:56 [id number] [facility] 2021-10-20 Outpatient Lopez, Na STLMLC STLMLC [id number] Common 11:18:09 [id number] [facility] 2021-10-20 Outpatient Lopez, Na STLMLC STLMLC [id number] Common 11:04:54 [id number] [facility] 2021-10-20 Outpatient Lopez, Na STLMLC STLMLC [id number] Common 11:04:25 [id number] [facility] 2023-08-02 2023-08-02 [id number] Univers 11:00:00 11:00:00 LUCY CUEVAS [facility] 2023-05-26 2023-05-27 Observatio [facility] [id number] Memoria 21:42:00 17:29:00 toni Borjas [facility] 2023-05-26 2023-05-27 Outpatient Rodo, Amir [facility] [id number] 16:42:00 12:29:00 2023-05-24 2023-05-25 Outpatient [facility] [id number] Memoria 12:17:00 04:59:00 [place] [facility] 2023-05-24 2023-05-24 Outpatient Rodo, Amir [facility] [id number] 07:17:00 23:59:00 00 2023-05-01 2023-05-01 Outpatient LUCY BOOGIE [facility] [id number] Univers 10:30:00 10:54:08 LUCY CUEVAS it y of [facility] 2023-05-01 2023-05-01 Office Lucy Cuevas [facility] 1.2.840.114 [id number] Univers 10:30:00 10:54:08 [facility] 350.1.13.10 [place] [id number] [address] OFFICE [facility] 2023-05-01 2023-05-01 Telephone Lucy Cuevas [facility] 1.2.840.114 [id number] Univers 00:00:00 00:00:00 Mick coUrbanize 350.1.13.10 [place] [id number] [address] OFFICE [facility] 2023-04-20 2023-04-20 Outpatient R MAC LEWIS [facility] [id number] [facility] 11:20:00 11:20:00 MAC LEWIS ity 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 10 [place] [id number] [facility] [address] 2023-04-11 2023-04-11 Outpatient R MINISTERIOKRISTIE CHRISTINA [facility] [id number] Univers 13:00:00 13:00:00 ATACHRISTINA FLOWERS ity of [facility] 2023-04-11 2023-04-11 Orders Doctor ANEL 1.2.840.114 [id number] Univers 00:00:00 00:00:00 Only Unassigned, VITALY 350.1.13.10 ity of [place] [facility] 4.2.7.2.686 Herman as [id number] [address] 2023-03-29 2023-03-29 Telephone [facility] [id number] Univers 00:00:00 00:00:00 Lico GARCIA 350.1.13.10 [facility] [place] [id number] [address] 2023-03-29 2023-03-29 Telephone [facility] [id number] [id number] Univers 00:00:00 00:00:00 Lico GARCIA 350.1.13.10 [facility] [place] [id number] [address] 2023-03-20 2023-03-20 Outpatient R [facility] [id number] Univers 15:20:00 16:49:15 LICO hughesy o f [facility] 2023-03-20 2023-03-20 Office [facility] 1.2.840.114 [id number] Univers 15:20:00 16:49:15 Visit Lico GARCIA 350.1.13.10 [facility] [place] [id number] [address] 2023-03-20 2023-03-20 Orders Doctor TAM 1.2.840.114 [id number] Univers 00:00:00 00:00:00 Only Unassigned, VITALY 350.1.13.10 [place] [facility] 4.2.7.2.686 Herman as [id number] [address] 2023-02-02 2023-02-02 Orders Doctor ANEL 1.2.840.114 [id number] Univers 00:00:00 00:00:00 Only Unassigned, VITALY 350.1.13.10 [place] of [place] [facility] 4.2.7.2.686 Herman as [id number] [address] 2022-08-31 2022-08-31 OFFICE STLMLC STLMLC [id number] Co mmon 00:00:00 00:00:00 VISIT EST Spir it PT LEVEL 3 [facility] 2022-08-30 2022-08-30 (TEL) STLMLC STLMLC [id number] Co mmon 00:00:00 00:00:00 [facility] 2022-08-29 2022-08-29 Outpatient SFA SFA [id number] Stef 15:26:21 15:26:21 1205 F Mohinder 2022-08-29 2022-08-29 Outpatient [id number] 00:00:00 00:00:00 Visit [id number] 2022-08-10 2022-08-10 (TEL) STLMLC STLMLC [id number] Co mmon 00:00:00 00:00:00 [facility] 2022-08-10 2022-08-10 (TEL) STLMLC STLMLC [id number] Co mmon 00:00:00 00:00:00 [facility] 2022-08-10 2022-08-10 (TEL) STLMLC STLMLC [id number] Co mmon 00:00:00 00:00:00 [facility] 2022-08-10 2022-08-10 OFFICE STLMLC STLMLC [id number] Co mmon 00:00:00 00:00:00 VISIT EST Spir it PT LEVEL 3 [facility] 2022-07-20 2022-07-20 (TEL) STLMLC STLMLC [id number] Co mmon 00:00:00 00:00:00 [facility] 2022-06-29 2022-06-29 (TEL) STLMLC STLMLC [id number] Co mmon 00:00:00 00:00:00 [facility] 2022-06-22 2022-06-22 OFFICE STLMLC STLMLC [id number] Co mmon 00:00:00 00:00:00 VISIT EST Spir it PT LEVEL 3 [facility] 2022-06-20 2022-06-20 (TEL) STLMLC STLMLC [id number] Co mmon 00:00:00 00:00:00 [facility] 2022-06-03 2022-06-03 OFFICE STLMLC STLMLC [id number] Co mmon 00:00:00 00:00:00 VISIT EST Spir it PT LEVEL 3 [facility] 2022-05-16 2022-05-16 (TEL) STLMLC STLMLC [id number] Co mmon 00:00:00 00:00:00 [facility] 2022-05-16 2022-05-16 OFFICE STLMLC STLMLC [id number] Co mmon 00:00:00 00:00:00 VISIT EST Spir it PT LEVEL 3 [facility] 2022-04-27 2022-04-27 (TEL) STLMLC STLMLC [id number] Co mmon 00:00:00 00:00:00 [facility] 2022-04-26 2022-04-26 (TEL) STLMLC STLMLC [id number] Co mmon 00:00:00 00:00:00 [facility] 2022-04-26 2022-04-26 OFFICE STLMLC STLMLC [id number] Co mmon 00:00:00 00:00:00 VISIT EST Spir it PT LEVEL 3 [facility] 2022-04-20 2022-04-20 Outpatient [id number] 00:00:00 00:00:00 Visit [id number] 2022-03-30 2022-03-30 OFFICE STLMLC STLMLC [id number] Co mmon 00:00:00 00:00:00 VISIT Spirit ESTAB PT - CHI LEVEL 4 [facility] 2022-02-14 2022-02-14 (TEL) STLMLC STLMLC [id number] Co mmon 00:00:00 00:00:00 [facility] 2022-01-27 2022-01-27 OFFICE STLMLC STLMLC [id number] Co mmon 00:00:00 00:00:00 VISIT EST Spir it PT LEVEL 3 [facility] 2022-01-26 2022-01-26 (TEL) STLMLC STLMLC [id number] Co mmon 00:00:00 00:00:00 [facility] 2022-01-18 2022-01-18 (TEL) STLMLC STLMLC [id number] Co mmon 00:00:00 00:00:00 [facility] 2022-01-05 2022-01-05 OFFICE STLMLC STLMLC [id number] Co mmon 00:00:00 00:00:00 VISIT NEW Spir it PT LEVEL 3 - [facility] 2021-12-28 2021-12-28 OFFICE STLMLC STLMLC [id number] Co mmon 00:00:00 00:00:00 VISIT [facility] ESTAB PT - CHI LEVEL 4 [facility] 2021-11-15 2021-11-15 (TEL) STLMLC STLMLC [id number] Co mmon 00:00:00 00:00:00 [facility] 2021-11-11 2021-11-11 (TEL) STLMLC STLMLC [id number] Co mmon 00:00:00 00:00:00 [facility] 2021-09-28 2021-09-28 OFFICE STLMLC STLMLC [id number] Co mmon 00:00:00 00:00:00 VISIT Spirit ESTAB PT - CHI LEVEL 4 [facility] 2021-08-27 2021-08-27 (TEL) STLMLC STLMLC [id number] Co mmon 00:00:00 00:00:00 [facility] 2021-08-04 2021-08-04 (TEL) STLMLC STLMLC [id number] Co mmon 00:00:00 00:00:00 [facility] 2021-08-02 2021-08-02 OFFICE STLMLC STLMLC [id number] Co mmon 00:00:00 00:00:00 VISIT [facility] LEVEL 4 [facility] 2021-07-22 2021-07-22 Outpatient Vanesa Cheung HCAPM RADI LA0 [id number] [facility] 08:00:00 08:00:00 63 [facility] 2021-07-03 2021-07-03 Emergency Marc, [facility] 1.2.840.114 [id number] Univers 19:47:00 21:16:00 [facility].13.[facility]2.686 [facility] [id number] [place] [address] [address] 2021-07-03 2021-07-03 Emergency X [facility] ERT [id number] Univers 19:47:00 19:47:[address] [facility] 2021-06-07 2021-06-07 Outpatient STLMLC STLMLC [id number] Common 00:00:00 00:00:00 [facility] 2021-05-06 2021-05-06 Outpatient STLMLC STLMLC [id number] Common 00:00:00 00:00:00 [facility] 2021-04-28 2021-04-28 Outpatient STLMLC STLMLC [id number] Common 00:00:00 00:00:00 [facility] 2021-04-27 2021-04-27 Outpatient STLMLC STLMLC [id number] Common 00:00:00 00:00:00 [facility] 2021-03-15 2021-03-15 Outpatient STLMLC STLMLC [id number] Common 00:00:00 00:00:00 [facility] 2021-01-04 2021-01-04 Outpatient STLMLC STLMLC [id number] Common 00:00:00 00:00:00 [facility] 2020-11-03 2020-11-03 Outpatient STLMLC STLMLC [id number] Common 00:00:00 00:00:00 [facility] 2020-08-03 2020-08-03 Outpatient STLMLC STLMLC [id number] Common 00:00:00 00:00:00 [facility] 2020-05-04 2020-05-04 [facility] [id number] Common 10:10:00 10:10:[address] [facility] 2020-05-01 2020-05-01 Outpatient [facility] [id number] Common 09:40:00 09:40:[address] [facility] 2020-02-19 2020-02-19 Out[facility] [id number] Common 16:06:00 16:06:[address] [facility] [address] Spir [address] [facility] 2019-12-12 2019-12-12 Outpatient [facility] [id number] Common 15:41:00 15:41:[address] [facility] 2019-09-16 2019-09-16 Outpatient [facility] [id number] Common 14:40:00 14:40:[address] [facility] 2019-08-15 2019-08-15 Outpatient [facility] [id number] Common 09:27:00 09:27:[address] [facility] 2019-08-12 2019-08-12 Outpatient [facility] [id number] Common 09:00:00 09:00:[address] [facility] 2019-07-31 2019-07-31 Outpatient [facility] [id number] Common 11:46:00 11:46:[address] [facility] 2019-07-29 2019-07-29 Outpatient [facility] [id number] Common 09:40:00 09:40:[address] [facility] 2019-06-02 2019-06-02 Outpatient [facility] [id number] Common 09:38:00 09:38:00 t Urgent Urgent Care S pirit Care [facility] Clinic [facility] 2019-05-31 2019-05-31 Outpatient [facility] [id number] Common 11:30:00 11:30:00 t Urgent Urgent Care S pirit Care [facility] 2018-01-19 2018-01-19 Outpatient [facility] [id number] Common 08:11:00 08:11:[address] [facility] 2018-01-18 2018-01-18 Outpatient [facility] [id number] Common 10:15:00 10:15:[address] [facility] 2017-12-26 2017-12-26 Outpatient [facility] [id number] Common 09:30:00 09:30:[address] Sp[address] [facility] 2008-10-21 2008-10-21 Outpatient [facility] [id number] Univers 00:00:00 11:14:00 1 [facility] Results Test Description Test Time Test Comments Results Result Comments Source CHEMISTRY 2023-05-27 11:57:00 Test Item Value Reference Range Interpretation Comme nts Glucose Lvl (test code = Glucose Lvl) 113 70-99 [facility]gjkajDIZAGCILX2572-74-53 11:57:00 Test Item Value Reference Range Interpretation Comments BUN (test code = BUN) 8 7-22 [facility] StationNmrzzobTFAKHYRMG1014-41-57 11:57:00 Test Item Value Reference Range Interpretation Comments Creatinine Lvl (test code = Creatinine 0.80 0.50-1.40 Lvl) [facility] 11:57:00 Test Item Value Reference Range Interpretation Comments Sodium Lvl (test code = Sodium Lvl) 141 135-145 [facility]87-63 11:57:00 Test Item Value Reference Range Interpretation Comments Potassium Lvl (test code = Potassium 4.1 3.5-5.1 Lvl) [facility]qa[facility]FBAVDLVED6978-50-69 11:57:00 Test Item Value Reference Range Interpretation Comments Chloride Lvl (test code = Chloride Lvl) 110 95-109 [place] 962523-09-02 11:57:00 Test Item Value Reference Range Interpretation Comments CO2 (test code = CO2) 26 24-32 [facility]JrzhpguYJODPTQNI3746-39-94 11:57:00 Test Item Value Reference Range Interpretation Comments Calcium Lvl (test code = Calcium Lvl) 8.9 8.5-10.5 [facility] HeightsJwawslbBSHORZGKL1418-38-15 11:57:00 Test Item Value Reference Range Interpretation Comments AGAP (test code = AGAP) 9.1 10.0-20.0 [facility] HeightsGrojxboVHQTTNKPU7527-66-67 11:57:00 Test Item Value Reference Range Interpretation Comments eGFR (test code = eGFR) 91 [facility] HeightsFuwrvxeUYUFUIXGZ4745-72-13 11:57:00 Test Item Value Reference Range Interpretation Comments Magnesium Lvl (test code = Magnesium 2.6 1.8-2.4 Lvl) [facility]MsawxuqCIUFTXZCTA3390-65-30 11:57:00 Test Item Value Reference Range Interpretation Comments WBC X 10x3 (test code = WBC X 10x3) 9.8 3.7-10.4 [place] 479323-09-02 11:57:00 Test Item Value Reference Range Interpretation Comments RBC X 10x6 (test code = RBC X 10x6) 4.37 4.20-5.40 [place] 479323-09-02 11:57:00 Test Item Value Reference Range Interpretation Comments Hgb (test code = Hgb) 11.3 12.0-16.0 [place] [address]-09-02 11:57:00 Test Item Value Reference Range Interpretation Comments Hct (test code = Hct) 35.0 36.0-48.0 [place] 479323-09-02 11:57:00 Test Item Value Reference Range Interpretation Comments MCV (test code = MCV) 80.0 80.0-98.0 [place] 479323-09-02 11:57:00 Test Item Value Reference Range Interpretation Comments MCH (test code = MCH) 25.8 pg 27.0-31.0 [facility] HospitalVdtzxsfSDWBALXTMJ1374-62-26 11:57:00 Test Item Value Reference Range Interpretation Comments MCHC (test code = MCHC) 32.2 32.0-36.0 [facility] HospitalHdaviwvMHQWSMVRBM5798-92-29 11:57:00 Test Item Value Reference Range Interpretation Comments RDW (test code = RDW) 15.8 11.5-14.5 [facility] HospitalDycgqwxXKHXWMPZQS1966-08-45 11:57:00 Test Item Value Reference Range Interpretation Comments Platelet (test code = Platelet) 378 133-450 [facility] HospitalApjbkvnEQIGFKFOVW5125-67-68 11:57:00 Test Item Value Reference Range Interpretation Comments MPV (test code = MPV) 8.1 7.4-10.4 [place] 479323-09-02 11:57:00 Test Item Value Reference Range Interpretation Comments Segs (test code = Segs) 70.7 45.0-75.0 [place] 479323-09-02 11:57:00 Test Item Value Reference Range Interpretation Comments Lymphocytes (test code = Lymphocytes) 22.0 20.0-40.0 [place] [address]-09-02 11:57:00 Test Item Value Reference Range Interpretation Comments Monocytes (test code = Monocytes) 6.3 2.0-12.0 [place] [address]-09-02 11:57:00 Test Item Value Reference Range Interpretation Comments Basophils (test code = Basophils) 1.0 <=1.0 [place] [address]-09-02 11:57:00 Test Item Value Reference Range Interpretation Comments Neutrophils # (test code = Neutrophils 7.0 1.5-8.1 #) [facility] HospitalYtwctmeHMCZDJVFZK1044-21-08 11:57:00 Test Item Value Reference Range Interpretation Comments Lymphocytes # (test code = Lymphocytes 2.2 1.0-5.5 #) [facility] HospitalVdwtucaFXBXLABOWD0666-59-49 11:57:00 Test Item Value Reference Range Interpretation Comments Monocytes # (test code = Monocytes #) 0.6 <=0.8 [place] [address]-09-02 11:57:00 Test Item Value Reference Range Interpretation Comments Basophils # (test code = Basophils #) 0.1 <=0.2 [facility]BfadwaePDBCGWBTFF2764-00-87 21:30:00 Test Item Value Reference Range Interpretation Comments POC Activated Clotting Time (test code 232 s = POC Activated Clotting Time) [facility]29[facility]82 17:00:00 Test Item Value Reference Range Interpretation Comments RBC product (test code Product available = RBC product) (05/26/23 12:00 PM) [facility] HeightsElrmyhgFASPSXRRP7668-84-78 15:07:00 Test Item Value Reference Range Interpretation Comments U Preg (test code = U Negative (05/26/23 10:07 Preg) AM) [facility] HeightsDpfpfvbBOTGAZLVA5772-31-25 14:56:00 Test Item Value Reference Range Interpretation Comments POC Sodium (test code = POC Sodium) 142 135-145 [facility] HeightsKnitqwpHZYHJVZXH4760-79-15 14:56:00 Test Item Value Reference Range Interpretation Comments POC Potassium (test code = POC 3.9 3.5-5.1 Potassium) [facility] HeightsDqpsxvsLNWRNGUZC7642-58-25 14:56:00 Test Item Value Reference Range Interpretation Comments POC Chloride (test code = POC Chloride) 105 95-109 [facility] HeightsEysfxjvDBECPBWIX9021-04-39 14:56:00 Test Item Value Reference Range Interpretation Comments POC Carbon Dioxide (test code = POC 25 24-32 Carbon Dioxide) [facility] HeightsIupcmhtUPVRONEKT2330-47-10 14:56:00 Test Item Value Reference Range Interpretation Comments POC BUN (test code = POC BUN) 7 7-22 [facility] HeightsUozaiwaMTPLREKHI5271-96-36 14:56:00 Test Item Value Reference Range Interpretation Comments POC Creatinine (test code = POC 0.7 0.5-1.4 Creatinine) [facility] HeightsMoufhkyTTMYXYTOO7427-53-70 14:56:00 Test Item Value Reference Range Interpretation Comments POC Glucose (test code = POC Glucose) 89 70-99 [facility] HeightsHonfihcUUNPKYFPI6742-61-55 14:56:00 Test Item Value Reference Range Interpretation Comments POC Ion Ca (test code = POC Ion Ca) 1.22 1.05-1.25 [facility] HeightsOmnpuezPQSYIVZSE8294-60-07 14:56:00 Test Item Value Reference Range Interpretation Comments POC Hemoglobin (test code = POC 13.3 12.0-16.0 Hemoglobin) [place] 962523-08-30 14:56:00 Test Item Value Reference Range Interpretation Comments POC Hematocrit (test code = POC 39.0 36.0-48.0 Hematocrit) [facility] HeightsEginzcaHDHCBUCXX2598-24-41 14:56:00 Test Item Value Reference Range Interpretation Comments POC AGAP (test code = POC AGAP) 16.0 10.0-20.0 [facility] HeightsLukymghQLRQRMLIK0148-29-41 14:56:00 Test Item Value Reference Range Interpretation Comments eGFR (test code = eGFR) 107 [facility] GYJAGVG0101-12-96 14:33:00 Test Item Value Reference Range Interpretation Comments ABO/Rh (test code = ABO/Rh) A POS [facility] StationCareCam [facility] SystemsPaytop[facility] JHADHBZ7438-16-84 14:33:00 Test Item Value Reference Range Interpretation Comments Antibody Scrn (test Negative (05/24/23 9:33 code = Antibody Scrn) AM) [facility] HeightsAlwfideJCOWBRDPR7124-54-12 14:33:00 Test Item Value Reference Range Interpretation Comments Total Protein (test code = Total 8.5 6.4-8.4 Protein) [facility] HeightsKgdtlxhEZAWPMBKV2927-98-62 14:33:00 Test Item Value Reference Range Interpretation Comments Albumin Lvl (test code = Albumin Lvl) 3.2 3.5-5.0 [facility] HeightsWxlxuxlVKADFFTHY5811-76-24 14:33:00 Test Item Value Reference Range Interpretation Comments ALT (test code = ALT) 28 <=65 [facility] HeightsMvwugydFVIIGQBAU9111-83-96 14:33:00 Test Item Value Reference Range Interpretation Comments AST (test code = AST) 19 <=37 [facility] HeightsInfhkeaHAKCYVZQX6658-22-91 14:33:00 Test Item Value Reference Range Interpretation Comments Alk Phos (test code = Alk Phos) 51 39-136 [facility] HeightsAvbkzjwIFEBNFVYC1874-20-82 14:33:00 Test Item Value Reference Range Interpretation Comments Bili Total (test code = Bili Total) 0.5 0.2-1.3 [facility] HeightsRewjigpDZXEEKJDW1945-12-43 14:33:00 Test Item Value Reference Range Interpretation Comments Bili Direct (test code = Bili Direct) 0.1 <=0.3 [facility] HeightsBwvghxdAFUGNGRRC4918-85-36 14:33:00 Test Item Value Reference Range Interpretation Comments Bili Indirect (test code = Bili 0.4 <=1.0 Indirect) [facility]XkrifuiZTXASDVXA2507-17-43 14:33:00 Test Item Value Reference Range Interpretation Comments Globulin (test code = Globulin) 5.3 2.7-4.2 [facility] HospitalAagkhulKHVVYRDHF4879-58-61 14:33:00 Test Item Value Reference Range Interpretation Comments A/G Ratio (test code = A/G Ratio) 0.6 1 0.7-1.6 [facility] HospitalXjgkzsjBRAQIIMAMN1139-69-29 13:55:00 Test Item Value Reference Range Interpretation Comments PT (test code = PT) 13.5 s 12.0-14.7 [facility] HospitalStvsvdcLEMCQKRNCE2386-55-74 13:55:00 Test Item Value Reference Range Interpretation Comments INR (test code = INR) 1.03 1 0.85-1.17 [facility] HospitalFhprvcbNLGTFAWPZH8107-78-88 13:55:00 Test Item Value Reference Range Interpretation Comments PTT (test code = PTT) 26.1 s 22.9-35.8 [facility] HospitalGdhvoesLCMHJYABPI2359-07-09 12:46:00 Test Item Value Reference Range Interpretation Comments Eosinophils (test code = Eosinophils) 1.1 <=4.0 [facility] HospitalXonnfiyFXIDLWCEOA7321-51-21 12:46:00 Test Item Value Reference Range Interpretation Comments Eosinophils # (test code = Eosinophils 0.1 <=0.5 #) [facility]/PUR1620-17-33 07:26:55 Test Item Value Reference Interpretation Comments Range SARS-CoV-2 NEGATIVE SEE NOTE SARS-CoV-2 RNA NOT INTERPRETATION DETECTEDNegat papo (test code = 02118) results do not preclude SARS-C oV-2 infection [...] (test code = [place]OP[place]: [place] [address]) Ro Charito Sofia l-Time RT-PCR. The exp ected result or [...] provided by met hod given in report:https:// www.[employer].com/clinic ians/cl ient-communicat ions/ Alternatively, see downloadable PD F fact sheet at:https://www. [employer]/COVID-19-R T-PCR UNLESS OTHERWIS E INDICATED, ALL TESTING PERFORMED [facility], [id number] [place] [address] DIRECTOR: PRUDENCE SOLIS M.D. CLIA NUMBER [id number] CAP ACCREDITATION N O. [id number] SARS-CoV-2 (COVID-19) by RT-PCR (HIGH RISK)2021-12-10 00:00:00 Test Item Value Reference Range Interpretation Comments SARS-CoV-2 INTERPRETATION NEGATIVE (test code = 65655) SOURCE (test code = 19738) NASOPHARYNGEAL SARS-CoV-2 (COVID-19) by RT-PCR (HIGH RISK)2021-12-10 00:00:00 Test Item Value Reference Range Interpretation Comments SARS-CoV-2 INTERPRETATION NEGATIVE (test code = 37398) SOURCE (test code = 42157) NASOPHARYNGEAL SARS-CoV-2 (COVID-19) by RT-PCR (HIGH RISK)2021-12-10 00:00:00 Test Item Value Reference Range Interpretation Comments SARS-CoV-2 INTERPRETATION NEGATIVE (test code = 36402) SOURCE (test code = 67802) NASOPHARYNGEAL Lipid Panel w/ Chol/HDL Vcwxk8220-79-65 00:00:00 Test Item Value Reference Range Interpretation Comments Cholesterol, Total (test code = 3-3) 186 100-199 Triglycerides (test code = 2571-8) 86 0-149 HDL Cholesterol (test code = 5-9) 59 >39 T. Chol/HDL Ratio (test code = 9830-1) 3.2 0.0-4.4 JOSÉ w/Reflex if Lqhnuvhn4486-08-84 00:00:00 Test Item Value Reference Range Interpretation Comments JOSÉ Direct (test code = 8061-4) Negative Negative Comp. Metabolic Panel (14) ([facility])2021-08-02 00:00:00 Test Item Value Reference Range Interpretation Comments Glucose (test code = 2345-7) 75 65-99 BUN (test code = 3094-0) 10 6-24 Creatinine (test code = 2160-0) 0.74 0.57-1.00 eGFR If NonAfricn Am (test code = 97 >59 77780-6) eGFR If Africn Am (test code = 06507-9) 112 >59 BUN/Creatinine Ratio (test code = 14 06-17 3097-3) Sodium (test code = 2951-2) 141 134-144 Potassium (test code = 2823-3) 3.7 3.5-5.2 Chloride (test code = 2075-0) 102 96-106 Carbon Dioxide, Total (test code = 2028-05) Calcium (test code = 92193-3) 9.6 8.7-10.2 Protein, Total (test code = 2885-2) 8.8 6.0-8.5 Albumin (test code = 1751-7) 4.6 3.8-4.8 Globulin, Total (test code = 02596-3) 4.2 1.5-4.5 A/G Ratio (test code = 1759-0) 1.1 1.2-2.2 Bilirubin, Total (test code = 1974-2) 0.6 0.0-1.2 Alkaline Phosphatase (test code = 76 44-121 6768-6) AST (SGOT) (test code = 1920-8) 20 0-40 ALT (SGPT) (test code = 1742-6) 19 0-32 CBC With Differential/Detiiqqs2584-03-12 00:00:00 Test Item Value Reference Range Interpretation [...] Granulocytes (test code = 0 Not Estab. 42163-1) Immature Grans (Abs) (test code = 0.0 0.0-0.1 01820-8) NRBC (test code = 68783-8) Hematology Comments: (test code = 20473-1) Rheumatoid Arthritis Bzhhil7941-57-36 00:00:00 Test Item Value Reference Range Interpretation Comments Rheumatoid Factor (RF) (test code = <10.0 0.0-13.9 94307-5) C-Reactive Protein, Quant (CRP)2021-08-02 00:00:00 Test Item Value Reference Range Interpretation Comments C-Reactive Protein, Quant (test code = 13 0-10 1987-5) Vitamin D, 94-Vhckqoz8238-79-08 00:00:00 Test Item Value Reference Range Interpretation Comments Vitamin D, 25-Hydroxy (test code = 24.0 30.0-100.0 1988-) - CT ABD PELVIS W/XVAB0339-03-30 09:50:00 [facility] : 1975 Sex: F Name: SHE FITZGERALD [facility] : 1975 Age/S: 46 / F [address]: [id number] Loc: [place] [address] Phys: Vanesa Nunez MD Acct: [id number] Dis Date: Status: REG CLI PHONE #: [phone] Exam Date: 07/22/2021 0918 FAX #: Reason: CROHNS DISEASE, UNSPECIFIED, WITHOUT COMPLICATI EXAMS: CPT: [id number] CT ABD PELVIS W/CONT 26534 HISTORY: CROHN'S DISEASE, UNSPECIFIED, WITHOUT COMPLICATIONS TECHNIQUE: [...] FITZGERALD : 1975 Age/S: 46 / F [address] Unit #: [id number] Loc: [place] [address] Phys: Vanesa Nunez MD Acct: [id number] Dis Date: Status: REG CLI PHONE #: [phone] Exam Date: 07/22/2021 0918 FAX #: Reason: CROHNS DISEASE, UNSPECIFIED, WITHOUT COMPLICATIEXAMS: CPT: [id number] CT ABD PELVIS W/CONT 62500 (Continued) IMPRESSION: 1. There is mild diffuse thickening of the transverse colon and splenic flexure as well as the distal descending colon and upper sigmoid. There is no pericolonic inflammation. Findings may represent infectious or inflammatory colitis. 2. Status post cholecystectomy. 3. Evidence of right colonic surgery. Electronically Signedby Lexis Calix on 07/22/2021 at 0950 Reported and signed by: Sudhir Calix M.D. CC:Vanesa Nunez MD; Noemy Lopez DO Technologist:Mukul Ryan, RT(R) CTDI: DLP: Trnscb Date/Time: 07/22/2021 (3507) [id number] Orig Print D/T: S: 07/22/2021 (0939) PAGE 2 Signed ImzapyQGVRX-GAE1608-36-28 08:27:00 Test Item Value Reference Range Interpretation Comments ISTAT-BUN (test code = BUNP) 8 mg/dL 8-26 N BEDSIDE XWGAPHZELW3494-44-50 08:27:00 Test Item Value Reference Range Interpretation Comments BEDSIDE CREATININE (test code = 0.6 mg/dL 0.6-1.3 N CREATBED) SARS-COV-2 (COVID19), NAAT [ADDED]2020-10-02 00:00:00 Test Item Value Reference Range Interpretation Comments SARS-CoV-2 INTERPRETATION (test NEGATIVE code = 81727) SOURCE (test code = 40570) NOT SPECIFIED SARS-COV-2 (COVID19), NAAT [ADDED]2020-10-02 00:00:00 Test Item Value Reference Range Interpretation Comments SARS-CoV-2 INTERPRETATION (test NEGATIVE code = 77221) SOURCE (test code = 68033) NOT SPECIFIED SARS-COV-2 (COVID19), NAAT [ADDED]2020-10-02 00:00:00 Test Item Value Reference Range Interpretation Comments SARS-CoV-2 INTERPRETATION (test NEGATIVE code = 82983) SOURCE (test code = 62336) NOT SPECIFIED SARS-CoV-2 (COVID-19) by RT-PCR (HIGH RISK)2020-04-17 00:00:00 Test Item Value Reference Range Interpretation Comments SARS-CoV-2 INTERPRETATION (test NEGATIVE code = 00715) SOURCE (test code = 49017) NOT SPECIFIED SARS-CoV-2 (COVID-19) by RT-PCR (HIGH RISK)2020-04-17 00:00:00 Test Item Value Reference Range Interpretation Comments SARS-CoV-2 INTERPRETATION (test NEGATIVE code = 09860) SOURCE (test code = 98508) NOT SPECIFIED SARS-CoV-2 (COVID-19) by RT-PCR (HIGH RISK)2020-04-17 00:00:00 Test Item Value Reference Range Interpretation Comments SARS-CoV-2 INTERPRETATION (test NEGATIVE code = 25603) SOURCE (test code = 02628) NOT SPECIFIED POC, COVID 19 Antigen + Flu by SofiaPOC, COVID 19 Antigen + Flu by Jennifer
--- NOTE | 2023-06-29 11:59 | EDPHYS ---
Physician Documentation [facility] Name: Dori Guardado Age: 48 yrs Sex: Female : 1975 Arrival Date: 06/29/2023 Time: 11:45 Bed IW1 Private MD: RAFAELA Physician Hardy Yee HPI: 06/29 11:55 This 48 yrs old Black Female presents to ER via Ambulatory with complaints of Rash. jh7 11:55 The patient's rash thought to be caused by fungal infection. The rash is located on the jh7 under bilateral breasts. The rash can be described as erythematous, papular, patchy. Onset: The symptoms/episode began/occurred 4 day(s) ago. Associated signs and symptoms: Pertinent positives: itching, Pertinent negatives: fever, Pain swelling of lips, swelling of throat, swelling of tongue. 48-year-old female presents with rash under bilateral breast. Patient states that she has a history of fungal infections and thrush. Denies fever, pain, or drainage. Reports that rash is very itchy.. Historical: - Allergies: 11:57 No Known Allergies; ld1 - PMHx: 11:57 Atrial Fib; bowel obstruction; Crohn's; Hypertension; ld1 - PSHx: 11:57 section; Appendectomy; Cholecystectomy; partial hysterectomy; ld1 - Immunization history:: Adult Immunizations up to date. - Social history:: Smoking status: Patient denies any tobacco usage or history of. Patient/guardian denies using alcohol. ROS: 11:55 Constitutional: Negative for fever, chills, and weight loss, Eyes: Negative for injury, jh7 pain, redness, and discharge, Neck: Negative for injury, pain, and swelling, Cardiovascular: Negative for chest pain, palpitations, and edema, Respiratory: Negative for shortness of breath, cough, wheezing, and pleuritic chest pain, Back: Negative for injury and pain, MS/Extremity: Negative for injury and deformity, Neuro: Negative for headache, weakness, numbness, tingling, and seizure, 11:55 Skin: Positive for rash, 11:55 All other systems are negative, Exam: 11:55 Constitutional: This is a well developed, well nourished patient who is awake, alert, jh7 and in no acute distress. Head/Face: Normocephalic, atraumatic. Neck: Trachea midline, no thyromegaly or masses palpated, and no cervical lymphadenopathy. Supple, full range of motion without nuchal rigidity, or vertebral point tenderness. No Meningismus. Cardiovascular: Regular rate and rhythm with a normal S1 and S2. No gallops, murmurs, or rubs. Normal PMI, no JVD. No pulse deficits. Respiratory: Lungs have equal breath sounds bilaterally, clear to auscultation and percussion. No rales, rhonchi or wheezes noted. No increased work of breathing, no retractions or nasal flaring. Abdomen/GI: Soft, non-tender, with normal bowel sounds. No distension or tympany. No guarding or rebound. No evidence of tenderness throughout. MS/ Extremity: Pulses equal, no cyanosis. Neurovascular intact. Full, normal range of motion. Neuro: Awake and alert, GCS 15, oriented to person, place, time, and situation. Motor strength 5/5 in all extremities. Sensory grossly intact. Normal gait. 11:55 Skin: Intertrigo, on the Under bilateral breast, Vital Signs: 11:57 BP 136 / 77; Pulse 81; Resp 18; Temp 98.1(TE); Pulse Ox 100% on R/A; Weight 99.79 kg; ld1 Height 5 ft. 8 in. ; Pain 0/10; 11:57 Body Mass Index 33.45 (99.79 kg, 172.72 cm) ld1 11:57 Pain Scale: Adult ld1 MDM: 11:53 Patient medically screened. [facility] 11:55 Differential diagnosis: impetigo, varicella, allergic reaction, Intertrigo. Data [facility] reviewed: vital signs, nurses notes. Counseling: I had a detailed discussion with the patient and/or guardian regarding the historical points, exam findings, and any diagnostic results supporting the discharge/admit diagnosis, to return to the emergency department if symptoms worsen or persist or if there are any questions or concerns that arise at home. Special discussion: Patient reports that she has been treated for a fungal infection before, but was only given 2 doses of Diflucan due to being on Eliquis. She reports that that was not enough and that her rash returned. Agreed to give her a week of Diflucan, but to notify her PCP due to possible increased monitoring.. Administered Medications: No medications were administered Disposition Summary: 06/29/23 11:58 Discharge Ordered Notes: Location: Home [facility] Problem: new [facility] Symptoms: are unchanged [facility] Condition: Stable jh7 Diagnosis - Erythema intertrigo 7 Followup: [facility] - With: Private Physician - When: 2 - 3 days - Reason: Recheck today's complaints Discharge Instructions: - Discharge Summary Sheet 7 - Intertrigo [facility] Forms: - Medication Reconciliation Form [facility] - Thank You Letter [facility] - Patient Portal Instructions [facility] - Leadership Thank You Letter [facility] Prescriptions: - Clotrimazole 1 % Topical cream - Apply to affected area 1 application TOPICAL route every 12 hours for 14 days; jh7 30 gram; Refills: 0, Product Selection Permitted - Fluconazole 150 mg Oral tablet - take 1 tablet ORAL route once daily for 7 days; 7 tablet; Refills: 0, Product [facility] Selection Permitted Signatures: Georgia Marie RN RN ld1 Ngozi Be FNP [employer] [facility]
--- NOTE | 2023-06-29 11:59 | ER ---
Nurse's Notes [facility] Name: Dori Guardado Age: 48 yrs Sex: Female : 1975 Arrival Date: 06/29/2023 Time: 11:45 Bed IW1 Private MD: Diagnosis: Erythema intertrigo Presentation: 06/29 11:57 Chief complaint: Patient states: Rash to under breast X 1 week. Coronavirus screen: At ld1 this time, the client does not indicate any symptoms associated with coronavirus-19. Ebola Screen: No symptoms or risks identified at this time. Initial Sepsis Screen: Does the patient meet any 2 criteria? No. Patient's initial sepsis screen is negative. Does the patient have a suspected source of infection? No. Patient's initial sepsis screen is negative. Risk Assessment: Do you want to hurt yourself or someone else? Patient reports no desire to harm self or others. Onset of symptoms was June 29, 2023. 11:57 Method Of Arrival: Ambulatory ld1 11:57 Acuity: KASH 4 ld1 Triage Assessment: 11:57 General: Appears in no apparent distress. comfortable, Behavior is calm, cooperative, ld1 appropriate for age. Pain: Denies pain. EENT: No signs and/or symptoms were reported regarding the EENT system. Neuro: Level of Consciousness is awake, alert, obeys commands, Oriented to person, place, time, situation. Cardiovascular: Capillary refill < 3 seconds Patient's skin is warm and dry. Respiratory: Airway is patent Respiratory effort is even, unlabored. GI: Abdomen is round non-distended. : No signs and/or symptoms were reported regarding the genitourinary system. Derm: Rash noted that is itchy, on chest. Musculoskeletal: No signs and/or symptoms reported regarding the musculoskeletal system. Historical: - Allergies: 11:57 No Known Allergies; ld1 - PMHx: 11:57 Atrial Fib; bowel obstruction; Crohn's; Hypertension; ld1 - PSHx: 11:57 section; Appendectomy; Cholecystectomy; partial hysterectomy; ld1 - Immunization history:: Adult Immunizations up to date. - Social history:: Smoking status: Patient denies any tobacco usage or history of. Patient/guardian denies using alcohol. Screenin:58 [facility] ED Fall Risk Assessment (Adult) History of falling in the last 3 months, ld1 including since admission No falls in past 3 months (0 pts). Abuse screen: Denies threats or abuse. Denies injuries from another. Nutritional screening: No deficits noted. Tuberculosis screening: No symptoms or risk factors identified. Assessment: 11:58 Reassessment: See triage assessment. ERP in triage assessing patinet. ld1 Vital Signs: 11:57 BP 136 / 77; Pulse 81; Resp 18; Temp 98.1(TE); Pulse Ox 100% on R/A; Weight 99.79 kg; ld1 Height 5 ft. 8 in. ; Pain 0/10; 11:57 Body Mass Index 33.45 (99.79 kg, 172.72 cm) ld1 11:57 Pain Scale: Adult ld1 ED Course: 11:48 Patient arrived in ED. mg5 11:53 [facility] 11:53 Hardy Yee MD is Attending Physician. [facility] 11:57 Triage completed. ld1 11:57 Arm band placed on right wrist. ld1 11:58 Patient has correct armband on for positive identification. Placed in gown. Bed in low ld1 position. Pulse ox on. NIBP on. Door closed. Noise minimized. Warm blanket given. 11:58 No provider procedures requiring assistance completed. Patient did not have IV access ld1 during this emergency room visit. 12:03 Georgia Marie, LEONA is Primary Nurse. ld1 Administered Medications: No medications were administered Medication: 11:58 VIS not applicable for this client. ld1 Outcome: 11:58 Discharge ordered by . [facility] 12:03 Discharged to home ambulatory, ld1 12:03 Condition: stable 12:03 Discharge instructions given to patient, Instructed on discharge instructions, follow up and referral plans. medication usage, Demonstrated understanding of instructions, follow-up care, medications, Prescriptions given X 2, 12:03 Patient left the ED. ld1 Signatures: Georgia Marie RN RN ld1 Ngozi Be FNP [employer] [facility] Janeth Hickey 5
[2023-06-29 12:09] VITALS: BP 136/77; TEMP 98.1; O2SAT 100
== END 2023-06-29 12:03 | disposition home or self-care (01) ==
LOC: ER 11:45
DX: L30.4 Erythema intertrigo (principal)
CPT/HCPCS: 99283

== ENCOUNTER 2023-07-04 22:24 | Emergency (ER) | payer OTHER ==
--- OUTSIDE RECORDS SUMMARY | 2023-07-04 22:34 | XMS REPORT | Continuity of Care Document ---
:1975 Author Organization [facility] t Address [address] [facility] [address] [place] [address] Care Team Providers Name Role Phone Sree [...] Clinician Unavailable Lico Trevizo MD Attending Clinician [facility], [facility] Attending Clinician Unavailable Christina Osorio MD Attending Clinician Doctor Unassigned, [place] Attending Clinician Unavailable Vanesa Nunez Attending Clinician Unavailable Raissa Tran DO Attending Clinician Noemy Lopez Admitting Clinician Unavailable Payers Payer Name Policy Type Policy Number Effective Date Expiration Date Hope fregoso [facility] [id number] 2020 HEALTH CHOICE 00:00:00 [place] [address] [id number] 2020 Common Spiri t Health Choice 00:00:[address] [facility] [place] [address] [id number] 2020 Common Spiri t Health Choice 00:00:[address] [facility] [place] [address] [id number] 2020 Common Spiri t Health Choice 00:00:00 - [facility]ica [facility] Problems Condition Condition Condition Status Onset Resolution Last Treating Co mments Source Name Details Category Date Date Treatment Clinician Date AFIB/I48.0 Diagnosis Active 2023-05-30 Memoria AFIB/I48.0 04-18 09:01:00 l Active 00:00: [place] 04/18/[address] [facility] [id number] Microcytic Problem Co mmon anemia [facility] [id number] [place], [place] [address] joint, [facility] knee, [facility] right [facility] [id number] Sinusitis, Problem Com mon maxillary, [facility] chronic [facility] [id number] Recurrent Problem Com mon falls [facility] [id number] Balance Problem Commo n problem [facility] Morbid Obesity, Problem Common obesity morbid, Spirit BMI 50 or - CHI higher [facility] [id number] Crohn's Problem Commo n disease in [facility] remission [facility] Iron Iron Problem Common deficiency deficiency Sp jose anemia anemia, - CHI unspecifie [facility] iron [facility] deficiency Medica l anemia Center type [id number] Adult Problem Common general [facility] medical [facility] exam [facility] [id number] Hematuria, Problem Com mon unspecifie [facility] d [facility] [id number] Multiple Problem Commo n joint pain [facility] [id number] Urinary Problem Common tract [facility] infection, - [facility] site not [facility] [id number] BMI Problem Common 50.0-59.9, Spirit adult [facility] [id number] Vitamin D Problem Comm on deficiency Spirit - [facility] [id number] Grieving Problem Comm on Spirit - CHI [facility] [id number] Seasonal Problem Comm on allergic Spirit rhinitis, - CHI unspecifie d [facility] [id number] Abdominal Problem Com mon bloating [facility] [id number] Seasonal Problem Commo n allergic Spirit rhinitis - CHI due to [facility] Mixed Depression Problem Commo n anxiety with Spirit and anxiety - CHI depressive [facility] [id number] Other Problem Common chronic Spirit pain - [facility] [id number] Esophageal Problem Com mon stricture [facility] Gastroesop Gastroeso Problem Active 2023-05-30 Memoria hageal phageal 00:40:15 l reflux reflux [place] disease disease (disorder) (disorder) Active Problem 05/30/2023 [facility] Hypertensi Hypertens Problem Active 2023-05-30 Memoria ve papo 00:40:15 l disorder, disorder, Herm erich systemic systemic arterial arterial (disorder) (disorder) Active Problem 05/30/2023 [facility] Rheumatoid Rheumatoi Problem Active 2023-05-30 Memoria arthritis d 00:40:15 l (disorder) arthritis Her dumont (disorder) Active Problem 05/30/2023 [facility] Sleep Sleep Problem Active 2023-05-30 Memor ia apnea apnea 00:40:15 l (finding) (finding) Herm erich Active Problem 05/30/2023 [facility] PAROXYSMAL PAROXYSMA Diagnosis Active 2023-05-30 Memoria ATRIAL L ATRIAL 09:01:00 l FIBRILLATI FIBRILLATI He rmann ON ON Active [facility] Atrial Atrial Problem Active 2023-05-30 Delvis dayanna fibrillati fibrillati 00:40:15 l on on [place] (disorder) (disorder) Active Problem 05/30/2023 [facility] Crohn's Crohn's Problem Active 2023-05-30 Me moria disease disease 00:40:15 l (disorder) (disorder) He rmann Active Problem 05/30/2023 [facility] No known No known Disease Unive rs active active ity of problems problems [facility] Branch Allergies, Adverse Reactions, Alerts Allergy Allergy Status Severity Reaction(s) Onset Inactive Treating Comm ents Source Name Type Date Date Clinician No Known DA Active U 2020-09 [facility] All[facility]ie 0-28 [place] s 00:00: d 00 [facility] No Known DA Active U 2020-09 [facility] Allergie 0-28 [place] s 00:00: d 00 [facility] No Known No Known Active Memori a Medicati Medicati l on on [place] Allergie Allergie s s NKFA NKFA Active Memoria l [place] NO KNOWN Drug Active [facility] ALLERGIE Class ity of S [facility] Social History Social Habit Start Date Stop Date Quantity Comments Source History of Tobacco Common Spirit - Use [facility] Sex Assigned At Common Sp jose - [facility] Gender identity [facility] Sexual orientation [facility] History of Social 2023-05-01 2023-05-01 Univers ity of function 00:00:00 00:00:00 [facility] Tobacco use and 2023-03-20 2023-03-20 Smokeless Universit y of exposure 00:00:00 00:00:00 tobacco non-user [facility] Smoking Status Start Date Stop Date Source Tobacco smoking consumption [facility] Tobacco smoking status [facility] Medications Ordered Filled Start Stop Current Ordering [...] l tablet 14:44: Bedtime [place] 00 omeprazole Yes 40 mg = 1 Me moria 40 mg oral 8-23 cap, PO, l delayed 14:44: QAM [place] release 00 capsule Eliquis 5 Yes 5 mg, PO, Mem oria mg oral 8-23 Q12H, For l tablet 14:43: Atrial [place] 00 Fibrilatio n sulfaSALAzi 0 Yes 1,000 mg = Memoria ne 500 mg 8-23 2 tab, PO, l oral tablet 14:42: BID Nain sotalol 80 2022-0 Yes 80 mg = 1 Me moria mg oral 8-23 tab, PO, l tablet 14:42: BID chlorthalid 2022-0 Yes 25mg Take 1 Univ ers one 25 mg 8-07 tablet by ity o f tablet 10:24: mouth in [place] 11 the Medical morning. Branch chlorthalid 3-0 Yes 25mg Take 1 Univ ers one 25 mg 8-07 tablet by ity o f tablet 10:24: mouth in [place] 11 the Medical morning. Branch chlorthalid 3-0 Yes 25mg Take 1 Univ ers one 25 mg 8-07 tablet by ity o f tablet 10:24: mouth in [place] 11 the Medical morning. Branch chlorthalid 3-0 Yes 25mg Take 1 Univ ers one 25 mg 7-24 tablet by ity o f tablet 08:13: mouth in [place] 44 the Medical morning. Branch triamterene 2022-0 [...] by ity of 14:59: 00:00 mouth in [place] 32 :00 [facility] and 1 tablet in the evening. Pt takes 40 mg in the AM and 40 mg in PM apixaban 5 2022-0 2022- No 5mg Take 1 Univ ers mg tablet 03-29-05 tablet by ity of 14:59: 00:00 mouth in [place] [address] :00 [facility] and 1 tablet in the evening. sotaloL 80 2022-2022- No 80mg Take 1 Univ ers mg tablet 03-29-05 tablet by ity of 14:59: 00:00 mouth in [place] 32 :00 [facility] and 1 tablet in the evening. Pt takes 40 mg in the AM and 40 mg in PM apixaban 5 2022-2022- No 5mg Take 1 Univ ers mg tablet 03-29-05 tablet by ity of 14:59: 00:00 mouth in [place] [address] :00 [facility] and 1 tablet in the evening. sotaloL 80 2022-2022- No 80mg Take 1 Univ ers mg tablet 03-29-05 tablet by ity of 14:59: 00:00 mouth in [place] 32 :00 [facility] and 1 tablet in the evening. Pt takes 40 mg in the AM and 40 mg in PM apixaban 5 2022-0 2022- No 5mg Take 1 Univ ers mg tablet 03-29-05 tablet by ity of 14:59: 00:00 mouth in [place] [address] :00 [facility] and 1 tablet in the evening. sotaloL 80 2022-0 2022- No 80mg Take 1 Univ ers mg tablet 03-29-05 tablet by ity of 14:59: 00:00 mouth in [place] [address] :00 [facility] and 1 tablet in the evening. Pt takes 40 mg in the AM and 40 mg in PM apixaban 5 2022-0 2022- No 5mg Take 1 Univ ers mg tablet 7-05 07-05 tablet by ity of 14:59: 00:00 mouth in [place] 32 :00 the Medical morning Branch and 1 tablet in the evening. sotaloL 80 2022-0 Yes [id number] 80mg Take 1 Univers mg tablet 7-05 tablet by ity o f 00:00: mouth in [place] 00 the Medical morning Branch and 1 tablet in the evening. Pt takes 40 mg in the AM and 40 mg in PM apixaban 5 2022-0 Yes 1358 5mg Take 1 Unive rs mg tablet 7-05 tablet by ity o f 00:00: mouth in [place] 00 the Medical morning Branch and 1 tablet in the evening. Indication s: atrial fibrillati on apixaban 5 2022-0 Yes 1358 5mg Take 1 Unive rs mg tablet 7-05 tablet by ity o f 00:00: mouth in [place] 00 the Medical morning Branch and 1 tablet in the evening. Indication s: atrial fibrillati on sotaloL 80 2022-0 Yes [id number] 40mg Take 0.5 Univers mg tablet 7-05 tablets by ity of 00:00: mouth in [place] 00 the Medical morning Branch and 0.5 tablets in the evening. Pt takes 40 mg in the AM and 40 mg in PM apixaban 5 2022-0 Yes 1358 5mg Take 1 Unive rs mg tablet 7-05 tablet by ity o f 00:00: mouth in [place] 00 the Medical morning Branch and 1 tablet in the evening. Indication s: atrial fibrillati on sotaloL 80 2022-0 Yes [id number] 40mg Take 0.5 Univers mg tablet 7-05 tablets by ity of 00:00: mouth in [place] 00 the Medical morning Branch and 0.5 tablets in the evening. Pt takes 40 mg in the AM and 40 mg in PM apixaban 5 2022-0 Yes 1358 5mg Take 1 Unive rs mg tablet 7-05 tablet by ity o f 00:00: mouth in [place] 00 the Medical morning Branch and 1 tablet in the evening. Indication s: atrial fibrillati on sotaloL 80 2022-0 Yes [id number] 40mg Take 0.5 Univers mg tablet 7-05 tablets by ity of 00:00: mouth in [place] [address] the Medical morning Branch and 0.5 tablets in the evening. Pt takes 40 mg in the AM and 40 mg in PM apixaban 5 2022-0 Yes 1358 5mg Take 1 Unive rs mg tablet 7-05 tablet by ity o f 00:00: mouth in [place] 00 the Medical morning Branch and 1 tablet in the evening. Indication s: atrial fibrillati on sotaloL 80 2022-0 Yes [id number] 40mg Take 0.5 Univers mg tablet 7-05 tablets by ity of 00:00: mouth in [place] [address] the Medical morning Branch and 0.5 tablets in the evening. Pt takes 40 mg in the AM and 40 mg in PM apixaban 5 2022-0 Yes 1358 5mg Take 1 Unive rs mg tablet 7-05 tablet by ity o f 00:00: mouth in [place] [address] the [facility] morning Branch and 1 tablet in the evening. Indication s: atrial fibrillati on sotaloL 80 0 Yes [id number] 40mg Take 0.5 Univers mg tablet 7-05 tablets by ity of 00:00: mouth in [place] [address] the [facility] morning [place] and 0.5 tablets in the evening. Pt takes 40 mg in the AM and 40 mg in PM apixaban 5 2022-0 Yes 1358 5mg Take 1 Unive rs mg tablet 7-05 tablet by ity o f 00:00: mouth in [place] [address] the [facility] morning Branch and 1 tablet in the evening. Indication s: atrial fibrillati on sotaloL 80 2022-0 Yes [id number] 40mg Take 0.5 Univers mg tablet 7-05 tablets by ity of 00:00: mouth in [place] [address] the [facility] morning Branch and 0.5 tablets in the evening. Pt takes 40 mg in the AM and 40 mg in PM apixaban 5 2022-0 Yes 1358 5mg Take 1 Unive rs mg tablet 7-05 tablet by ity o f 00:00: mouth in [place] [address] the [facility] morning Branch and 1 tablet in the evening. Indication s: atrial fibrillati on sotaloL 80 2022-0 Yes [id number] 40mg Take 0.5 Univers mg tablet 7-05 tablets by ity of 00:00: mouth in [address] morning Branch and 0.5 tablets in the evening. Pt takes 40 mg in the AM and 40 mg in PM apixaban 5 2023-0 Yes 1358 5mg Take 1 Unive rs mg tablet 7-05 tablet by ity o f 00:00: mouth in [place] 00 the Medical morning Branch and 1 tablet in the evening. Indication s: atrial fibrillati on sotaloL 80 Yes [id number] 40mg Take 0.5 Univers mg tablet 7-05 tablets by ity of 00:00: mouth in [place] 00 the Medical morning Branch and 0.5 tablets in the evening. Pt takes 40 mg in the AM and 40 mg in PM apixaban 5 Yes 1358 5mg Take 1 Unive rs mg tablet 7-05 tablet by ity o f 00:00: mouth in [place] 00 the Medical morning Branch and 1 tablet in the evening. Indication s: atrial fibrillati on sotaloL 80 Yes [id number] 40mg Take 0.5 Univers mg tablet 7-05 tablets by ity of 00:00: mouth in [place] 00 the Medical morning Branch and 0.5 tablets in the evening. Pt takes 40 mg in the AM and 40 mg in PM sotaloL 80 Yes [id number] 80mg Take 1 Univers mg tablet 7-05 tablet by ity o f 00:00: mouth in [place] 00 the Medical morning Branch and 1 tablet in the evening. Pt takes 40 mg in the AM and 40 mg in PM apixaban 5 Yes 1358 5mg Take 1 Unive rs mg tablet 7-05 tablet by ity o f 00:00: mouth in [place] 00 the Medical morning Branch and 1 tablet in the evening. Indication s: atrial fibrillati on sotaloL 80 0 2022- No [id number] 80mg Take 1 Univers mg tablet 7-05 07-05 tablet by ity of 00:00: 00:00 mouth in [place] 00 :00 the Medical morning Branch and 1 tablet in the evening. Pt takes 40 mg in the AM and 40 mg in PM adalimumab Yes inject Unive rs (HUMIRA,CF, 6- under the ity of [place]) 15:30: skin. [place] [address] Medical Branch dicyclomine Yes 10mg Take 1 Univ ers 10 mg 6- capsule by ity of capsule 15:30: mouth as [place] [address] needed for Medical Abdominal Branch pain. vancomycin [...] the ity of [place]) 15:30: skin. [place] [address] Medical Branch dicyclomine 2023-0 Yes 10mg Take [...] the ity of [place]) 15:30: skin. [place] [address] Medical Branch dicyclomine 2023-0 Yes 10mg Take [...] the ity of [place]) 15:30: skin. [place] [address] Medical Branch dicyclomine 2023-0 Yes 10mg Take [...] the ity of [place]) 15:30: skin. [place] [address] Medical Branch dicyclomine 2023-0 Yes 10mg Take [...] the ity of [place]) 15:30: skin. [place] [address] Medical Branch dicyclomine 2023-0 Yes 10mg Take [...] the ity of [place]) 15:30: skin. [place] [address] Medical Branch dicyclomine 2023-0 Yes 10mg Take [...] the ity of [place]) 15:30: skin. [place] [address] Medical Branch dicyclomine 2023-0 Yes 10mg Take [...] the ity of [place]) 15:30: skin. [place] [address] Medical Branch dicyclomine 2023-0 Yes 10mg Take [...] the ity of [place]) 15:30: skin. [place] [address] Medical Branch dicyclomine 2023-0 Yes 10mg Take [...] the ity of [place]) 15:30: skin. [place] [address] Medical Branch dicyclomine 2023-0 Yes 10mg Take [...] the ity of [place]) 15:30: skin. [place] [address] Medical Branch dicyclomine 2023-0 Yes 10mg Take [...] by ity o f 15:30: mouth in [place] [address] the Medical morning Branch and 1 tablet in the evening. Pt takes 40 mg in the AM and 40 mg in PM apixaban 5 2023-0 Yes 5mg Take 1 Unive rs mg tablet 6-26 tablet by ity o f 15:30: mouth in [place] [address] the Medical morning Branch and 1 tablet in the evening. adalimumab 2023-0 Yes inject Unive rs (HUMIRA,CF, 6-26 under the ity of [place]) 15:30: skin. [place] [address] Medical Branch dicyclomine 2023-0 Yes 10mg Take 1 Univ ers 10 mg 6-26 capsule by ity of capsule 15:30: mouth as [place] [address] needed for Medical Abdominal Branch pain. vancomycin 2023-0 Yes 500mg Take 6 mL U nivers 500 mg/6 mL 6-26 by mouth ity of oral 15:30: in the [place] [address] morning Medical and 6 mL Branch at noon and 6 mL in the evening. metroNIDAZO 2023-0 Yes 500mg Take 1 Uni vers LE 500 mg 6-26 tablet by ity o f tablet 15:30: mouth [place] [address] every 12 Medical (twelve) Branch hours. sotaloL 80 2023-0 Yes 80mg Take 1 Unive rs mg tablet 6-26 tablet by ity o f 15:30: mouth in [place] [address] the Medical morning Branch and 1 tablet in the evening. Pt takes 40 mg in the AM and 40 mg in PM apixaban 5 3-0 Yes 5mg Take 1 Unive rs mg tablet 6-26 tablet by ity o f 15:30: mouth in [place] [address] the Medical morning Branch and 1 tablet in the evening. adalimumab 2023-0 Yes inject Unive rs (HUMIRA,CF, 6-26 under the ity of [place]) 15:30: skin. [place] [address] Medical Branch dicyclomine 2023-0 Yes 10mg Take 1 Univ ers 10 mg 6-26 capsule by ity of capsule 15:30: mouth as [place] [address] needed for Medical Abdominal Branch pain. vancomycin [...] by ity o f tablet 15:30: mouth [place] [address] every 12 Medical (twelve) Branch hours. adalimumab 2022-0 Yes inject Unive rs (HUMIRA,CF, 6-26 under the ity of [place]) 15:30: skin. [place] [address] Medical Branch dicyclomine 2022-0 Yes 10mg Take 1 Univ ers 10 mg 6-26 capsule by ity of capsule 15:30: mouth as [place] 35 needed for Medical Abdominal Branch pain. [...] by ity o f tablet 15:30: mouth [place] [address] every 12 Medical (twelve) Branch hours. Kenalog [...] Univers medications 0-09 ity of 19:54: [address] metoprolol 1-0 No 1mg tartrate 50 [...] Sodium 05-04 Spirit 00:00: - CHI 00 [facility] Ergocalcife Ergocalcife 2018-09- No Na Lopez 1 capsule Common rol rol -18 11-10 Spirit 00:00: 00:00 - CHI 00 :00 [facility] Paxil Paxil 0 Yes Na Lopez 1 tablet Comm on 12-26 in the Spirit 00:00: morning - CHI 00 [facility] Humira Humira Yes Na Lopez not Common defined [facility] Aspirin Aspirin Yes Na Lopez not Common [facility] BusPIRone BusPIRone Yes Na Lopez 1 tablet Common HCl HCl [facility] Metoprolol Metoprolol Yes Na Lopez 1 tablet Common Tartrate T[facility] Lage[facility]rio Lagevrio No 4{capsu BID Lagevrio [...] MG Ergocalcife Ergocalcife No 1{capsu Ergocalcif rol 95491 rol 96993 le} fortunato 8[address] UNIT UNIT UNIT Gabapentin Gabapentin No 1{capsu [...] MCG/ACT Ergocalcife Ergocalcife No 1{capsu Ergocalcif rol 46579 rol 72454 le} fortunato 98107 UNIT UNIT UNIT Gabapentin Gabapentin No 1{capsu [...] MG Ergocalcife Ergocalcife No 1{capsu Ergocalcif rol 80679 rol 17608 le} fortunato 34928 UNIT UNIT UNIT Montelukast Montelukast No 1{table [...] MG t} Ergocalcife Ergocalcife No 1{capsu rol 30020 rol 59609 le} UNIT UNIT Montelukast Montelukast No 1{table [...] MG Ergocalcife Ergocalcife No 1{capsu Ergocalcif rol 93833 rol 86982 le} fortunato 23306 UNIT UNIT UNIT Montelukast Montelukast No 1{table [...] MG Ergocalcife Ergocalcife No 1{capsu Ergocalcif rol 31908 rol 72102 le} fortunato 74866 UNIT UNIT UNIT Omeprazole Omeprazole No 1{capsu [...] MG Ergocalcife Ergocalcife No 1{capsu Ergocalcif rol 39788 rol 04467 le} fortunato 54800 UNIT UNIT UNIT Humira Humira No Humira [...] MG Ergocalcife Ergocalcife No 1{capsu Ergocalcif rol 95378 rol 80472 le} fortunato 01414 UNIT UNIT UNIT Famotidine Famotidine No 1{table [...] MG Ergocalcife Ergocalcife No 1{capsu Ergocalcif rol 08612 rol 27681 le} fortunato 97125 UNIT UNIT UNIT busPIRone busPIRone No 1{table [...] MG Ergocalcife Ergocalcife No 1{capsu Ergocalcif rol 58022 rol 83177 le} fortunato 07974 UNIT UNIT UNIT Montelukast Montelukast No 1{table [...] MG Ergocalcife Ergocalcife No 1{capsu Ergocalcif rol 56822 rol 72234 le} fortunato 81674 UNIT UNIT UNIT Montelukast Montelukast No 1{table [...] MG Ergocalcife Ergocalcife No 1{capsu Ergocalcif rol 21560 rol 72980 le} fortunato 71024 UNIT UNIT UNIT Flonase 50 Flonase 50 [...] MG Ergocalcife Ergocalcife No 1{capsu Ergocalcif rol 40193 rol 06738 le} fortunato 30042 UNIT UNIT UNIT PARoxetine PARoxetine No PARoxetine [...] MG Ergocalcife Ergocalcife No 1{capsu Ergocalcif rol 76442 rol 57750 le} [place] 601[address] UNIT UNIT UNIT PARoxetine PARoxetine No PARoxetine [...] MG Ergocalcife Ergocalcife No 1{capsu Ergocalcif rol 17703 rol 65702 le} fortunato 82689 UNIT UNIT UNIT Aspirin 81 Aspirin 81 [...] MG Ergocalcife Ergocalcife No 1{capsu Ergocalcif rol 59717 rol 50357 le} fortunato 30660 UNIT UNIT UNIT ALPRAZolam ALPRAZolam No 1{table [...] MG Ergocalcife Ergocalcife No 1{capsu Ergocalcif rol 67867 rol 37126 le} fortunato 71054 UNIT UNIT UNIT ALPRAZolam ALPRAZolam No 1{table [...] MG Ergocalcife Ergocalcife No 1{capsu Ergocalcif rol 82411 rol 87916 le} fortunato 57936 UNIT UNIT UNIT ALPRAZolam ALPRAZolam No 1{table [...] MG Ergocalcife Ergocalcife No 1{capsu Ergocalcif rol 55996 rol 55598 le} fortunato 90902 UNIT UNIT UNIT Benzonatate Benzonatate No TID [...] MG Ergocalcife Ergocalcife No 1{capsu Ergocalcif rol 54699 rol 40120 le} [place]ato 52593 UNIT UNIT UNIT Benzonatate Benzonatate No TID [...] MG Ergocalcife Ergocalcife No 1{capsu Ergocalcif rol 21483 rol 25710 le} [place]ato 55184 UNIT UNIT UNIT Famotidine Famotidine No Famotidine [...] MG Ergocalcife Ergocalcife No 1{capsu Ergocalcif rol 92466 rol 19053 le} fortunato 99192 UNIT UNIT UNIT Famotidine Famotidine No Famotidine [...] MG Ergocalcife Ergocalcife No 1{capsu Ergocalcif rol 92510 rol 05205 le} fortunato 74727 UNIT UNIT UNIT Gabapentin Gabapentin No 1{capsu [...] MCG/ACT Ergocalcife Ergocalcife No 1{capsu Ergocalcif rol 98209 rol 64738 le} [place]ato 96429 UNIT UNIT UNIT Gabapentin Gabapentin No 1{capsu [...] MG Ergocalcife Ergocalcife No 1{capsu Ergocalcif rol 93574 rol 56479 le} fortunato 35050 UNIT UNIT UNIT Montelukast Montelukast No Montelukas [...] MG Ergocalcife Ergocalcife No 1{capsu Ergocalcif rol 88074 rol 94131 le} fortunato 90126 UNIT UNIT UNIT Cetirizine Cetirizine No Cetirizine [...] MG Ergocalcife Ergocalcife No 1{capsu Ergocalcif rol 15551 rol 04106 le} fortunato 48373 UNIT UNIT UNIT Cetirizine Cetirizine No Cetirizine [...] MG Ergocalcife Ergocalcife No 1{capsu Ergocalcif rol 89435 rol 29694 le} fortunato 24141 UNIT UNIT UNIT Cetirizine Cetirizine No Cetirizine [...] MG Ergocalcife Ergocalcife No 1{capsu Ergocalcif rol 30971 rol 56881 le} fortunato 42883 UNIT UNIT UNIT Cetirizine Cetirizine No Cetirizine [...] MG Ergocalcife Ergocalcife No 1{capsu Ergocalcif rol 57673 rol 50974 le} fortunato 23853 UNIT UNIT UNIT Cetirizine Cetirizine No Cetirizine [...] MG Ergocalcife Ergocalcife No 1{capsu Ergocalcif rol 34423 rol 57594 le} fortunato 98756 UNIT UNIT UNIT guaiFENesin guaiFENesin No 10{ml_a [...] MG Ergocalcife Ergocalcife No 1{capsu Ergocalcif rol 85010 rol 82613 le} fortunato 00325 UNIT UNIT UNIT Meloxicam Meloxicam No Meloxicam [...] Source Systolic blood 2023-05-01 15:23:00 144 mm[Hg] [facility] Diastolic blood 2023-05-01 15:23:00 89 mm[Hg] Unive rsity of pressure [facility] Heart rate 2023-05-01 15:23:00 75 /min Universi ty of [place] [facility] Branch Respiratory rate 2023-05-01 15:23:00 17 /min Univ ersity of [facility] Body height 2023-05-01 15:23:00 160 cm Universi ty of [facility] Body weight 2023-05-01 15:23:00 135.671 kg [facility]i ty of [place] [facility] BMI 2023-05-01 15:23:00 52.98 kg/m2 Universi ty of [facility] Oxygen saturation in 2023-05-01 15:23:00 99 /min University of Arterial blood by [facility] Pulse oximetry Branch Systolic blood 2023-03-20 20:35:00 133 mm[Hg] Univer sity of pressure [facility] Diastolic blood 2023-03-20 20:35:00 94 mm[Hg] Unive rsity of pressure [facility] Heart rate 2023-03-20 20:35:00 78 /min Universi ty of [facility] Oxygen saturation in 2023-03-20 20:35:00 95 /min University of Arterial blood by [facility] Pulse oximetry Branch Body temperature 2023-03-20 20:33:00 36.33 Gem Univ [facility] Respiratory rate 2023-03-20 20:33:00 18 /min Univ [facility] Body height 2023-03-20 20:33:00 160 cm [facility]i ty [facility] Body weight 2023-03-20 20:33:00 134.537 kg [facility] BMI 2023-03-20 20:33:00 52.54 kg/m2 Universi ty of [facility] height 2022-08-31 08:20:00 63 [in_i] [facility] weight 2022-08-31 08:20:00 278 [lb_av] [facility] S [facility] temperature 2022-08-31 08:20:00 98.5 [degF] [facility] bmi 2022-08-31 08:20:00 49.24 kg/m2 Common S pirit [facility] height 2022-08-10 10:20:00 63 [in_i] Common [facility] weight 2022-08-10 10:20:00 283 [lb_av] [facility] temperature 2022-08-10 10:20:00 98.5 [degF] Common [facility] bmi 2022-08-10 10:20:00 50.13 kg/m2 [facility] height 2022-06-22 10:20:00 63 [in_i] [facility] weight 2022-06-22 10:20:00 276 [lb_av] [facility] 2022-06-22 10:20:00 48.89 kg/m2 [facility] height 2022-04-26 17:00:00 63 [in_i] [facility] weight 2022-04-26 17:00:00 279 [lb_av] [facility] temperature 2022-04-26 17:00:00 97.9 [degF] [facility] bmi 2022-04-26 17:00:00 49.42 kg/m2 [facility] height 2022-01-05 14:00:00 63 [in_i] [facility] weight 2022-01-05 14:00:00 297 [lb_av] [facility] bmi 2022-01-05 14:00:00 52.61 kg/m2 [facility] blood pressure 2022-01-05 14:00:00 148 mm[Hg] [facility] - systolic [facility] blood pressure 2022-01-05 14:00:00 102 mm[Hg] [facility] - diastolic [facility] height 2021-12-28 16:00:00 63 [in_i] [facility] weight 2021-12-28 16:00:00 300.4 [lb_av] [facility] temperature 2021-12-28 16:00:00 97.3 [degF] [facility] bmi 2021-12-28 16:00:00 53.21 kg/m2 [facility] oximetry 2021-12-28 16:00:00 100 % [facility] respiratory rate 2021-12-28 16:00:00 18 /min Comm on [facility] blood pressure 2021-12-28 16:00:00 137 [facility]Hg[facility] blood pressure 2021-12-28 16:00:00 83 mm[Hg] [facility] diastolic [facility] height 2021-09-28 09:40:00 63 [in_i] [facility] weight 2021-09-28 09:40:00 283 [lb_av] [facility] temperature 2021-09-28 09:40:00 97.9 [degF] [facility] bmi 2021-09-28 09:40:00 50.13 kg/m2 [facility] height 2021-08-02 10:00:00 63 [in_i] [facility] weight 2021-08-02 10:00:00 282.6 [lb_av] [facility] temperature 2021-08-02 10:00:00 97.0 [degF] [facility] bmi 2021-08-02 10:00:00 50.05 kg/m2 [facility] oximetry 2021-08-02 10:00:00 97 % [facility] respiratory rate 2021-08-02 10:00:00 16 /min Comm on [facility] blood pressure 2021-08-02 10:00:00 140 mm[Hg] [facility] systolic [facility] blood pressure 2021-08-02 10:00:00 62 mm[Hg] [facility] - diastolic [facility] Systolic blood 2021-07-04 00:50:00 180 mm[Hg] Univer sity of pressure [facility] Diastolic blood 2021-07-04 00:50:00 110 mm[Hg] Unive rsity of pressure [facility] Heart rate 2021-07-04 00:50:00 79 /min Universi ty [facility] Body temperature 2021-07-04 00:50:00 36.67 [facility] 2021-07-04 00:50:00 18 /min [facility] Body weight 2021-07-04 00:50:00 121.564 kg [facility] Oxygen saturation in 2021-07-04 00:50:00 99 /min University Arterial blood by [facility] Pulse oximetry Branch Heart Rate 2023-05-27 13:27:31 [facility] Systolic (mm Hg) 2023-05-27 13:25:25 Delvis [facility] [place] Diastolic (mm Hg) 2023-05-27 13:25:25 Mem orial [place] Temperature Oral (F) 2023-05-27 13:25:01 97.6 F [facility] Height 2023-05-26 15:06:00 5 [ft_i] [facility] Weight 2023-05-26 15:06:00 [facility] BMI Calculated 2023-05-26 15:06:00 Mem[facility] [place] Systolic (mm Hg) 2023-05-24 16:30:00 [place] [facility] [place] Diastolic (mm Hg) 2023-05-24 16:30:00 Mem [facility] [place] Height 2023-05-24 15:00:00 5 [ft_i] [facility] Weight 2023-05-24 15:00:00 [facility] BMI Calculated 2023-05-24 15:00:00 [facility] [place] BP Systolic 2022-01-21 14:32:00 BP Diastolic 2022-01-21 14:32:00 Weight Measured 2022-01-21 14:32:00 276.00 pounds Height Measured 2022-01-21 14:32:00 63.00 inches Body Temperature 2022-01-21 14:32:00 Heart Rate 2022-01-21 14:32:00 Respiratory Rate 2022-01-21 14:32:00 Procedures Procedure Date / Time Performing Clinician Source Performed SLEEP STUDY DATA REPORT 2023-04-11 05:01:00 Doctor Unassigned, U [facility] [place] [facility] HB ECG ROUTINE & RHYTHM 2023-03-20 20:38:13 Lico Trevizo [facility] STRIP Medical Branch ASSIGNMENT OF BENEFITS 2023-03-20 20:13:23 Doctor Unassigned, [facility] [place] [facility] REFERRAL- REQUEST/RESPONSE 2023-02-02 05:01:00 Doctor Nichole , [facility] [place] [facility] Cardioversion 2023-01-03 05:00:00 Digna dumont XR CHEST 1 VW 2021-07-04 01:14:37 Raissa Tran [facility] [place] NOTICE OF PRIVACY 2021-07-04 00:45:31 Doctor Unatracy, [facility] PRACTICES [place] [facility] CONSENT/REFUSAL FOR 2021-07-04 00:45:10 Doctor Unatracy, [facility] DIAGNOSIS AND TREATMENT [facility] Repair of small bowel [facility] H ermann obstruction Partial hysterectomy [facility] rmann 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Memoria l [place] stricture section [facility] Nain n Cholecystectomy [facility] [place] App[facility] Care Planned Activity Planned Date Details Comments Source Goal Plan of Care Note [code = 67297-0] Goal Plan of Care Note [code = 58113-0] Goal Plan of Care Note [code = 02368-4] Goal Plan of Care Note [code = 04970-3] Goal Plan of Care Note [code = 36391-9] Goal Plan of Care Note [code = 89124-6] Goal Plan of Care Note [code = 26850-4] Goal Plan of Care Note [code = 52499-0] Goal Plan of Care Note [code = 26814-3] Goal Plan of Care Note [code = 81856-2] Goal Plan of Care Note [code = 87116-6] Goal Plan of Care Note [code = 42272-8] Goal Plan of Care Note [code = 01055-8] Goal Plan of Care Note [code = 44185-9] Goal Plan of Care Note [code = 18952-3] Goal Plan of Care Note [code = 38726-1] Encounters Start End Encounter Admission Attending Care Care Encounter Source Date/Time Date/Time Type Type Clinicians Facility Department ID 2023-02-24 Outpatient Chung, STLMLC STLMLC [id number] Common 14:59:00 Avnee [id number] [facility] 2023-01-23 Outpatient Chung, STLMLC STLMLC [id number] Common 09:09:00 Avnee [id number] [facility] 2022-12-29 Outpatient Chung, STLMLC STLMLC [id number] Common 15:24:00 Avnee 02837 [facility] 2022-12-21 Outpatient Layla, STLMLC STLMLC [id number] Common 09:47:00 Karol [id number] [facility] 2022-06-01 Outpatient Lopez, Na STLMLC STLMLC [id number] 2 Common 09:18:00 [id number] [facility] 2022-04-13 Outpatient Lopez, Na STLMLC STLMLC [id number] 2 Common 15:29:00 [facility] 2022-04-07 Outpatient Lopez, Na STLMLC STLMLC [id number] Common 16:07:00 [facility] 2022-01-04 Outpatient Lopez, Na STLMLC STLMLC [id number] 2 Common 09:31:01 [facility] 2021-10-20 Outpatient Lopez, Na STLMLC STLMLC [id number] 2 Common 14:09:55 [id number] [facility] 2021-10-20 Outpatient Lopez, Na STLMLC STLMLC [id number] 2 Common 13:47:22 00467 [facility] 2021-10-20 Outpatient Lopez, Na STLMLC STLMLC [id number] 2 Common 12:29:04 [id number] [facility] 2021-10-20 Outpatient Lopez, Na STLMLC STLMLC [id number] 2 Common 12:03:44 [id number] [facility] 2021-10-20 Outpatient Lopez, Na STLMLC STLMLC [id number] 2 Common 12:03:05 [id number] [facility] 2021-10-20 Outpatient Lopez, Na STLMLC STLMLC [id number] 2 Common 11:43:49 [id number] [facility] 2021-10-20 Outpatient Lopez, Na STLMLC STLMLC [id number] 2 Common 11:35:56 [id number] [facility] 2021-10-20 Outpatient Lopez, Na STLMLC STLMLC [id number] 2 Common 11:18:09 [id number] [facility] 2021-10-20 Outpatient Lopez, Na STLMLC STLMLC [id number] 2 Common 11:04:54 [id number] [facility] 2021-10-20 Outpatient Lopez, Na STLMLC STLMLC [id number] 2 Common 11:04:25 [id number] [facility] 2023-08-02 2023-08-02 [id number] Univers 11:00:00 11:00:[address] [facility] 2023-05-26 2023-05-27 Observatio [facility] [id number] Memoria 21:42:00 17:29:00 toni Borjas [facility] 2023-05-26 2023-05-27 Outpatient Rodo, Amir [facility] [id number] 16:42:00 12:29:00 2023-05-24 2023-05-25 Outpatient [facility] [id number] Memoria 12:17:00 04:59:00 Indio [facility] 2023-05-24 2023-05-24 Outpatient Rodo, Amir [facility] [id number] 07:17:00 23:59:00 00 2023-05-01 2023-05-01 Outpatient LUCY BOOGIE [facility] [id number] Univers 10:30:00 10:54:08 LUCY CUEVAS it y of [facility] 2023-05-01 2023-05-01 Office Lucy Cuevas [facility] [id number] Univers 10:30:00 10:54:08 [facility] [id number] [place] [id number] [address] OFFICE [facility] 2023-05-01 2023-05-01 Telephone Lucy Cuevas [facility] [id number] Univers 00:00:00 00:00:00 Mick [employer] 350.1.13.10 [place] [id number] [address] OFFICE [facility] 2023-04-20 2023-04-20 Outpatient R MAC LEWIS [facility] [id number] [facility] 11:20:00 11:20:00 MAC LEWIS ity [facility] 2023-04-15 2023-04-15 Telephone [facility] [id number] Univers 00:00:00 00:00:00 Lico YOTON [id number] it[place] [id number] [address] 2023-04-13 2023-04-13 Telephone [facility] [id number] Univers 00:00:00 00:00:00 Lico [place] 350.1.13.10 ity [place] [id number] Ne [address] 2023-04-11 2023-04-11 Law Enforcement Officer Luisa Foss [facility] 1.2 .840.114 [id number] Univers 13:00:00 13:15:00 Visit Christina Osorio 350.1.13. 10 [place] [facility] [id number] [facility] [address] [place] 2023-04-11 2023-04-11 Outpatient R MINISTERIOKRISTIE CHRISTINA [facility] [id number] Univers 13:00:00 13:00:00 ATACHRISTINA FLOWERS ity of [facility] 2023-04-11 2023-04-11 Orders Doctor ANEL 1.2.840.114 [id number] Univers 00:00:00 00:00:00 Only Unassigned, VITALY 350.1.13.10 ity of [place] [facility] 4.2.7.2.686 Herman as [phone] [address] 2023-03-29 2023-03-29 Telephone [facility] [id number] Univers 00:00:00 00:00:00 Lico GARCIA 350.1.13.10 ity of [facility] [place] [id number] [address] 2023-03-29 2023-03-29 Telephone [facility] [id number] Univers 00:00:00 00:00:00 Lico GARCIA 350.1.13.10 ity of [facility] 4[place] [id number] [address] 2023-03-20 2023-03-20 Outpatient R [facility] [id number] Univers 15:20:00 16:49:15 LICO hughesy o f [facility] 2023-03-20 2023-03-20 Office [facility] 1.2.840.114 [id number] Univers 15:20:00 16:49:15 Visit Lico GARCIA 350.1.13.10 ity of [facility] 4.[place] [id number] [address] 2023-03-20 2023-03-20 Orders Doctor TAM 1.2.840.114 [id number] Univers 00:00:00 00:00:00 Only Unassigned, VITALY 350.1.13.10 ity of [place] [facility] 4.2.7.2.686 Herman as [id number] [address] 2023-02-02 2023-02-02 Orders Doctor ANEL 1.2.840.114 [id number] Univers 00:00:00 00:00:00 Only Unassigned, VITALY 350.1.13.10 ity of [place] [facility] 4.2.7.2.686 Herman as [id number] [address] 2022-08-31 2022-08-31 OFFICE STLMLC STLMLC [id number] Co mmon 00:00:00 00:00:00 VISIT EST Spir it PT LEVEL 3 [facility] 2022-08-30 2022-08-30 (TEL) STLMLC STLMLC [id number] Co mmon 00:00:00 00:00:00 [facility] 2022-08-29 2022-08-29 Outpatient SFA SFA [id number] Stef 15:26:21 15:26:21 1205 F Mohinder 2022-08-29 2022-08-29 Outpatient [id number] 00:00:00 00:00:00 Visit [id number] 2022-08-10 2022-08-10 (TEL) STLMLC STLMLC [id number] Co mmon 00:00:00 00:00:00 [facility] 2022-08-10 2022-08-10 (TEL) STLMLC STLMLC [id number] Co mmon 00:00:00 00:00:00 [facility] 2022-08-10 2022-08-10 (TEL) STLMLC STLMLC [id number] Co mmon 00:00:00 00:00:00 [facility] 2022-08-10 2022-08-10 OFFICE STLMLC STLMLC [id number] Co mmon 00:00:00 00:00:00 VISIT EST Spir it PT LEVEL 3 [facility] 2022-07-20 2022-07-20 (TEL) STLMLC STLMLC [id number] Co mmon 00:00:00 00:00:00 [facility] 2022-06-29 2022-06-29 (TEL) STLMLC STLMLC [id number] Co mmon 00:00:00 00:00:00 [facility] 2022-06-22 2022-06-22 OFFICE STLMLC STLMLC [id number] Co mmon 00:00:00 00:00:00 VISIT EST Spir it PT LEVEL 3 [facility] 2022-06-20 2022-06-20 (TEL) STLMLC STLMLC [id number] Co mmon 00:00:00 00:00:00 [facility] 2022-06-03 2022-06-03 OFFICE STLMLC STLMLC [id number] Co mmon 00:00:00 00:00:00 VISIT EST Spir it PT LEVEL 3 [facility] 2022-05-16 2022-05-16 (TEL) STLMLC STLMLC [id number] Co mmon 00:00:00 00:00:00 [facility] 2022-05-16 2022-05-16 OFFICE STLMLC STLMLC [id number] Co mmon 00:00:00 00:00:00 VISIT EST Spir it PT LEVEL 3 [facility] 2022-04-27 2022-04-27 (TEL) STLMLC STLMLC [id number] Co mmon 00:00:00 00:00:00 [facility] 2022-04-26 2022-04-26 (TEL) STLMLC STLMLC [id number] Co mmon 00:00:00 00:00:00 [facility] 2022-04-26 2022-04-26 OFFICE STLMLC STLMLC [id number] Co mmon 00:00:00 00:00:00 VISIT EST Spir it PT LEVEL 3 [facility] 2022-04-20 2022-04-20 Outpatient [id number] 00:00:00 00:00:00 Visit [id number] 2022-03-30 2022-03-30 OFFICE STLMLC STLMLC [id number] Co mmon 00:00:00 00:00:00 VISIT Spirit ESTAB PT - CHI LEVEL 4 [facility] 2022-02-14 2022-02-14 (TEL) STLMLC STLMLC [id number] Co mmon 00:00:00 00:00:00 [facility] 2022-01-27 2022-01-27 OFFICE STLMLC STLMLC [id number] Co mmon 00:00:00 00:00:00 VISIT EST Spir it PT LEVEL 3 [facility]I [facility] 2022-01-26 2022-01-26 (TEL) STLMLC STLMLC [id number] Co mmon 00:00:00 00:00:00 [facility] 2022-01-18 2022-01-18 (TEL) STLMLC STLMLC [id number] Co mmon 00:00:00 00:00:00 [facility] 2022-01-05 2022-01-05 OFFICE STLMLC STLMLC [id number] Co mmon 00:00:00 00:00:00 VISIT NEW Spir it PT LEVEL 3 - CHI [facility] 2021-12-28 2021-12-28 OFFICE STLMLC STLMLC [id number] Co mmon 00:00:00 00:00:00 VISIT [facility] ESTAB PT - CHI LEVEL 4 [facility] 2021-11-15 2021-11-15 (TEL) STLMLC STLMLC [id number] Co mmon 00:00:00 00:00:00 [facility] 2021-11-11 2021-11-11 (TEL) STLMLC STLMLC [id number] Co mmon 00:00:00 00:00:00 [facility] 2021-09-28 2021-09-28 OFFICE STLMLC STLMLC [id number] Co mmon 00:00:00 00:00:00 VISIT Spirit ESTAB PT - CHI LEVEL 4 [facility] 2021-08-27 2021-08-27 (TEL) STLMLC STLMLC [id number] Co mmon 00:00:00 00:00:00 [facility] 2021-08-04 2021-08-04 (TEL) STLMLC STLMLC [id number] Co mmon 00:00:00 00:00:00 [facility] 2021-08-02 2021-08-02 OFFICE STLMLC STLMLC [id number] Co mmon 00:00:00 00:00:00 VISIT [facility] LEVEL 4 [facility] 2021-07-22 2021-07-22 Outpatient Vanesa Cheung HCAPM RADI LA0 [id number] [facility] 08:00:00 08:00:00 [facility] 2021-07-03 2021-07-03 Emergency Marc, [facility] 1.2.840.114 [id number] Univers 19:47:00 21:16:00 [facility]issa [facility].13.[facility] [facility] [id number] [place] [address] Branch 2021-07-03 2021-07-03 Emergency X [facility] ERT [id number] Univers 19:47:00 19:47:00 ity [facility] 2021-06-07 2021-06-07 Outpatient STLMLC STLMLC [id number] Common 00:00:00 00:00:00 [facility] 2021-05-06 2021-05-06 Outpatient STLMLC STLMLC [id number] Common 00:00:00 00:00:00 [facility] 2021-04-28 2021-04-28 Outpatient STLMLC STLMLC [id number] Common 00:00:00 00:00:00 [facility] 2021-04-27 2021-04-27 Outpatient STLMLC STLMLC [id number] Common 00:00:00 00:00:00 [facility] 2021-03-15 2021-03-15 Outpatient STLMLC STLMLC [id number] Common 00:00:00 00:00:00 [facility] 2021-01-04 2021-01-04 Outpatient STLMLC STLMLC [id number] Common 00:00:00 00:00:00 [facility] 2020-11-03 2020-11-03 Outpatient STLMLC STLMLC [id number] Common 00:00:00 00:00:00 [facility] 2020-08-03 2020-08-03 Outpatient STLMLC STLMLC [id number] Common 00:00:00 00:00:00 [facility] 2020-05-04 2020-05-04 Out[facility] [id number] Common 10:10:00 10:10:[address] [facility] 2020-05-01 2020-05-01 Outpatient [facility] [id number] Common 09:40:00 09:40:[address] Sp[address] [facility] 2020-02-19 2020-02-19 Outpatient [facility] [id number] Common 16:06:00 16:06:[address] [facility] [address] Sp[address] [facility] 2019-12-12 2019-12-12 Outpatient [facility] [id number] Common 15:41:00 15:41:[address] [facility] 2019-09-16 2019-09-16 Outpatient [facility] [id number] Common 14:40:00 14:40:[address] [facility] 2019-08-15 2019-08-15 Outpatient [facility] [id number] Common 09:27:00 09:27:[address] [facility] 2019-08-12 2019-08-12 Outpatient [facility] [id number] Common 09:00:00 09:00:[address] [facility] 2019-07-31 2019-07-31 Outpatient [facility] [id number] Common 11:46:00 11:46:[address] [facility] 2019-07-29 2019-07-29 Outpatient [facility] [id number] Common 09:40:00 09:40:[address] Sp[address] [facility] 2019-06-02 2019-06-02 Outpatient [facility] [id number] Common 09:38:00 09:38:00 t Urgent Urgent Care S pirit Care [facility] 2019-05-31 2019-05-31 Outpatient [facility] [id number] Common 11:30:00 11:30:00 t Urgent Urgent Care S pirit Care [facility] 2018-01-19 2018-01-19 Outpatient [facility] [id number] Common 08:11:00 08:11:[address] [facility] 2018-01-18 2018-01-18 Outpatient [facility] [id number] Common 10:15:00 10:15:[address] Sp[address] [facility] 2017-12-26 2017-12-26 Outpatient [facility] [id number] Common 09:30:00 09:30:[address] Sp[address] [facility] 2008-10-21 2008-10-21 Outpatient [facility] [id number] Univers 00:00:00 11:14:00 1 [facility] Results Test Description Test Time Test Comments Results Result Comments Source CHEMISTRY 2023-05-27 11:57:00 Test Item Value Reference Range Interpretation Comme nts Glucose Lvl (test code = Glucose Lvl) 113 70-99 [facility]YJZ4623-74-63 11:57:00 Test Item Value Reference Range Interpretation Comments BUN (test code = BUN) 8 7-22 [facility]omlcvhLUYAPZTZV5801-94-08 11:57:00 Test Item Value Reference Range Interpretation Comments Creatinine Lvl (test code = Creatinine 0.80 0.50-1.40 Lvl) [facility]62-43 11:57:00 Test Item Value Reference Range Interpretation Comments Sodium Lvl (test code = Sodium Lvl) 141 135-145 [facility]52-25 11:57:00 Test Item Value Reference Range Interpretation Comments Potassium Lvl (test code = Potassium 4.1 3.5-5.1 Lvl) [facility]lei[facility]KBOCAQY7813-00-22 11:57:00 Test Item Value Reference Range Interpretation Comments Chloride Lvl (test code = Chloride Lvl) 110 95-109 [place] 673433-09-02 11:57:00 Test Item Value Reference Range Interpretation Comments CO2 (test code = CO2) 26 24-32 [facility]ldulqkNHNQWUVJF1323-24-31 11:57:00 Test Item Value Reference Range Interpretation Comments Calcium Lvl (test code = Calcium Lvl) 8.9 8.5-10.5 [facility] Hospital[facility]wkluzaVKCZJYNRK6804-14-27 11:57:00 Test Item Value Reference Range Interpretation Comments AGAP (test code = AGAP) 9.1 10.0-20.0 [facility]jizcvQKHKVTCYN0208-73-87 11:57:00 Test Item Value Reference Range Interpretation Comments eGFR (test code = eGFR) 91 [facility] HospitalNdapchfTEMGCYVHK0050-56-22 11:57:00 Test Item Value Reference Range Interpretation Comments Magnesium Lvl (test code = Magnesium 2.6 1.8-2.4 Lvl) [facility]-67 11:57:00 Test Item Value Reference Range Interpretation Comments WBC X 10x3 (test code = WBC X 10x3) 9.8 3.7-10.4 [place] 544523-09-02 11:57:00 Test Item Value Reference Range Interpretation Comments RBC X 10x6 (test code = RBC X 10x6) 4.37 4.20-5.40 [place] 544523-09-02 11:57:00 Test Item Value Reference Range Interpretation Comments Hgb (test code = Hgb) 11.3 12.0-16.0 [place] [address]-09-02 11:57:00 Test Item Value Reference Range Interpretation Comments Hct (test code = Hct) 35.0 36.0-48.0 [place] 544523-09-02 11:57:00 Test Item Value Reference Range Interpretation Comments MCV (test code = MCV) 80.0 80.0-98.0 [place] 544523-09-02 11:57:00 Test Item Value Reference Range Interpretation Comments MCH (test code = MCH) 25.8 pg 27.0-31.0 [id number] 11:57:00 Test Item Value Reference Range Interpretation Comments MCHC (test code = MCHC) 32.2 32.0-36.0 [facility]LEKIVPPI9292-69-65 11:57:00 Test Item Value Reference Range Interpretation Comments RDW (test code = RDW) 15.8 11.5-14.5 [facility]npjCRCYMYTJZG8111-98-02 11:57:00 Test Item Value Reference Range Interpretation Comments Platelet (test code = Platelet) 378 133-450 [facility]fuk[facility]zuIMWTJJQKMJ6850-49-09 11:57:00 Test Item Value Reference Range Interpretation Comments MPV (test code = MPV) 8.1 7.4-10.4 [place] 544523-09-02 11:57:00 Test Item Value Reference Range Interpretation Comments Segs (test code = Segs) 70.7 45.0-75.0 [place] 544523-09-02 11:57:00 Test Item Value Reference Range Interpretation Comments Lymphocytes (test code = Lymphocytes) 22.0 20.0-40.0 [place] [address]-09-02 11:57:00 Test Item Value Reference Range Interpretation Comments Monocytes (test code = Monocytes) 6.3 2.0-12.0 [place] [address]-09-02 11:57:00 Test Item Value Reference Range Interpretation Comments Basophils (test code = Basophils) 1.0 <=1.0 [place] [address]-09-02 11:57:00 Test Item Value Reference Range Interpretation Comments Neutrophils # (test code = Neutrophils 7.0 1.5-8.1 #) [facility] 11:57:00 Test Item Value Reference Range Interpretation Comments Lymphocytes # (test code = Lymphocytes 2.2 1.0-5.5 #) [facility]YekvgqrVIYVEKFVZV4914-40-77 11:57:00 Test Item Value Reference Range Interpretation Comments Monocytes # (test code = Monocytes #) 0.6 <=0.8 [place] [address]-09-02 11:57:00 Test Item Value Reference Range Interpretation Comments Basophils # (test code = Basophils #) 0.1 <=0.2 [facility]GzmoebpKSGNWXOVHT0066-51-84 21:30:00 Test Item Value Reference Range Interpretation Comments POC Activated Clotting Time (test code 232 s = POC Activated Clotting Time) [facility] 17:00:00 Test Item Value Reference Range Interpretation Comments RBC product (test code Product available = RBC product) (05/26/23 12:00 PM) [facility]xnvkuqHWABRAHVG7400-70-47 15:07:00 Test Item Value Reference Range Interpretation Comments U Preg (test code = U Negative (05/26/23 10:07 Preg) AM) [facility] HospitalSknphpgTHTAAOOVO5276-98-58 14:56:00 Test Item Value Reference Range Interpretation Comments POC Sodium (test code = POC Sodium) 142 135-145 [facility] HospitalIitybfvGXGQPEQIX6406-43-41 14:56:00 Test Item Value Reference Range Interpretation Comments POC Potassium (test code = POC 3.9 3.5-5.1 Potassium) [facility] HospitalSnoccwpCJSNYTYUW4552-93-64 14:56:00 Test Item Value Reference Range Interpretation Comments POC Chloride (test code = POC Chloride) 105 95-109 [facility] HospitalFrieaqzKJUXQEDSU9484-00-72 14:56:00 Test Item Value Reference Range Interpretation Comments POC Carbon Dioxide (test code = POC 25 24-32 Carbon Dioxide) [facility] HospitalBqkclxfLMMCXMNAB2901-37-33 14:56:00 Test Item Value Reference Range Interpretation Comments POC BUN (test code = POC BUN) 7 7-22 [facility] HospitalRqtlldlTSDGAFCXU2060-02-46 14:56:00 Test Item Value Reference Range Interpretation Comments POC Creatinine (test code = POC 0.7 0.5-1.4 Creatinine) [facility] HospitalGtcccaoCHCEUXUKA2766-81-03 14:56:00 Test Item Value Reference Range Interpretation Comments POC Glucose (test code = POC Glucose) 89 70-99 [facility] HospitalMxmiyfjDBVFIPFNG2390-85-00 14:56:00 Test Item Value Reference Range Interpretation Comments POC Ion Ca (test code = POC Ion Ca) 1.22 1.05-1.25 [facility] HospitalFgeakglSZTTFGDJZ7189-99-68 14:56:00 Test Item Value Reference Range Interpretation Comments POC Hemoglobin (test code = POC 13.3 12.0-16.0 Hemoglobin) [place] 673433-08-30 14:56:00 Test Item Value Reference Range Interpretation Comments POC Hematocrit (test code = POC 39.0 36.0-48.0 Hematocrit) [facility] HospitalKpwddxlLJIEBAACP7226-36-40 14:56:00 Test Item Value Reference Range Interpretation Comments POC AGAP (test code = POC AGAP) 16.0 10.0-20.0 [facility] HospitalIlpxqppCBBKHDZTP2230-58-74 14:56:00 Test Item Value Reference Range Interpretation Comments eGFR (test code = eGFR) 107 [facility] BBJSGTP6974-76-13 14:33:00 Test Item Value Reference Range Interpretation Comments ABO/Rh (test code = ABO/Rh) A POS [facility]ervilleLynxIT SolutionsVimagino [facility] MFCWURR8736-70-73 14:33:00 Test Item Value Reference Range Interpretation Comments Antibody Scrn (test Negative (05/24/23 9:33 code = Antibody Scrn) AM) [facility] HospitalBcxniabEINWGISNC3004-62-11 14:33:00 Test Item Value Reference Range Interpretation Comments Total Protein (test code = Total 8.5 6.4-8.4 Protein) [facility] HospitalGajfalbRRZQYBAJP4226-59-38 14:33:00 Test Item Value Reference Range Interpretation Comments Albumin Lvl (test code = Albumin Lvl) 3.2 3.5-5.0 [facility] HospitalGqxvyenAMPEWLSXK9782-80-92 14:33:00 Test Item Value Reference Range Interpretation Comments ALT (test code = ALT) 28 <=65 [facility] HospitalNrrfcnvZLVDQPUSA2425-39-48 14:33:00 Test Item Value Reference Range Interpretation Comments AST (test code = AST) 19 <=37 [facility] HospitalDhoaudaEVUDRWYTP6245-49-53 14:33:00 Test Item Value Reference Range Interpretation Comments Alk Phos (test code = Alk Phos) 51 39-136 [facility] HospitalTcnsfvzYEUZWFKFU2075-66-67 14:33:00 Test Item Value Reference Range Interpretation Comments Bili Total (test code = Bili Total) 0.5 0.2-1.3 [facility] HospitalPhytlfuYZUJWITLQ5941-22-77 14:33:00 Test Item Value Reference Range Interpretation Comments Bili Direct (test code = Bili Direct) 0.1 <=0.3 [facility] HospitalPggbkejGLZAQEOXS6778-49-98 14:33:00 Test Item Value Reference Range Interpretation Comments Bili Indirect (test code = Bili 0.4 <=1.0 Indirect) [facility]PddetlhPUIOCFJLC6679-74-41 14:33:00 Test Item Value Reference Range Interpretation Comments Globulin (test code = Globulin) 5.3 2.7-4.2 [facility] HospitalMptzjlcVLTVELGWQ1966-74-05 14:33:00 Test Item Value Reference Range Interpretation Comments A/G Ratio (test code = A/G Ratio) 0.6 1 0.7-1.6 [facility] HospitalWeoekbjZHNNYNQXAN4598-59-11 13:55:00 Test Item Value Reference Range Interpretation Comments PT (test code = PT) 13.5 s 12.0-14.7 [facility] HospitalOcekxonITOPWEIHLO7205-14-24 13:55:00 Test Item Value Reference Range Interpretation Comments INR (test code = INR) 1.03 1 0.85-1.17 [facility] HospitalWuabxiyFXHAOJZCHB3936-54-54 13:55:00 Test Item Value Reference Range Interpretation Comments PTT (test code = PTT) 26.1 s 22.9-35.8 [facility] HospitalMbaxycsYPUGIERLQA5321-01-72 12:46:00 Test Item Value Reference Range Interpretation Comments Eosinophils (test code = Eosinophils) 1.1 <=4.0 [facility] HospitalFofauapNCSKEMTBVI4609-03-32 12:46:00 Test Item Value Reference Range Interpretation Comments Eosinophils # (test code = Eosinophils 0.1 <=0.5 #) [facility] (COVID-19), RT-PCR/HYL8799-12-30 07:26:55 Test Item Value Reference Interpretation Comments Range SARS-CoV-2 NEGATIVE SEE NOTE SARS-CoV-2 RNA NOT INTERPRETATION DETECTEDNegat papo (test code = 22457) results do not preclude SARS-C oV-2 infection [...] (test code = NASOPHARY[place]: [place] [address]) Ro Charito Sofia l-Time RT-PCR. The exp [...] provided by met hod given in report:https:// www.[employer].com/clinic ians/cl ient-communicat ions/ Alternatively, see downloadable PD F fact sheet at:https://www. Experts 911/COVID-19-R T-PCR UNLESS OTHERWIS E INDICATED, ALL TESTING PERFORMED [facility], [id number] [place] [address] DIRECTOR: PRUDENCE SOLIS M.D. CLIA NUMBER [id number] CAP ACCREDITATION N O. [id number] SARS-CoV-2 (COVID-19) by RT-PCR (HIGH RISK)2021-12-10 00:00:00 Test Item Value Reference Range Interpretation Comments SARS-CoV-2 INTERPRETATION NEGATIVE (test code = 52495) SOURCE (test code = 68643) NASOPHARYNGEAL SARS-CoV-2 (COVID-19) by RT-PCR (HIGH RISK)2021-12-10 00:00:00 Test Item Value Reference Range Interpretation Comments SARS-CoV-2 INTERPRETATION NEGATIVE (test code = 64929) SOURCE (test code = 51223) NASOPHARYNGEAL SARS-CoV-2 (COVID-19) by RT-PCR (HIGH RISK)2021-12-10 00:00:00 Test Item Value Reference Range Interpretation Comments SARS-CoV-2 INTERPRETATION NEGATIVE (test code = 40755) SOURCE (test code = 73637) NASOPHARYNGEAL Lipid Panel w/ Chol/HDL Likik4086-02-75 00:00:00 Test Item Value Reference Range Interpretation Comments Cholesterol, Total (test code = 3-3) 186 100-199 Triglycerides (test code = 2571-8) 86 0-149 HDL Cholesterol (test code = 5-9) 59 >39 T. Chol/HDL Ratio (test code = 9830-1) 3.2 0.0-4.4 JOSÉ w/Reflex if Kbfmpopp2671-68-01 00:00:00 Test Item Value Reference Range Interpretation Comments JOSÉ Direct (test code = 8061-4) Negative Negative Comp. Metabolic Panel (14) ([facility])2021-08-02 00:00:00 Test Item Value Reference Range Interpretation Comments Glucose (test code = 2345-7) 75 65-99 BUN (test code = 3094-0) 10 6-24 Creatinine (test code = 2160-0) 0.74 0.57-1.00 eGFR If NonAfricn Am (test code = 97 >59 74858-5) eGFR If Africn Am (test code = 44668-4) 112 >59 BUN/Creatinine Ratio (test code = 14 06-17 3097-3) Sodium (test code = 2951-2) 141 134-144 Potassium (test code = 2823-3) 3.7 3.5-5.2 Chloride (test code = 2075-0) 102 96-106 Carbon Dioxide, Total (test code = 2028-05) Calcium (test code = 02254-4) 9.6 8.7-10.2 Protein, Total (test code = 2885-2) 8.8 6.0-8.5 Albumin (test code = 1751-7) 4.6 3.8-4.8 Globulin, Total (test code = 27718-4) 4.2 1.5-4.5 A/G Ratio (test code = 1759-0) 1.1 1.2-2.2 Bilirubin, Total (test code = 1974-2) 0.6 0.0-1.2 Alkaline Phosphatase (test code = 76 44-121 6768-6) AST (SGOT) (test code = 1920-8) 20 0-40 ALT (SGPT) (test code = 1742-6) 19 0-32 CBC With Differential/Dpnpycby0718-61-05 00:00:00 Test Item Value Reference Range Interpretation [...] Granulocytes (test code = 0 Not Estab. 86274-2) Immature Grans (Abs) (test code = 0.0 0.0-0.1 76961-3) NRBC (test code = 02617-3) Hematology Comments: (test code = 63797-3) Rheumatoid Arthritis Uqpmve2108-18-58 00:00:00 Test Item Value Reference Range Interpretation Comments Rheumatoid Factor (RF) (test code = <10.0 0.0-13.9 18450-1) C-Reactive Protein, Quant (CRP)2021-08-02 00:00:00 Test Item Value Reference Range Interpretation Comments C-Reactive Protein, Quant (test code = 13 0-10 1987-5) Vitamin D, 04-Pdnnfdg8634-48-08 00:00:00 Test Item Value Reference Range Interpretation Comments Vitamin D, 25-Hydroxy (test code = 24.0 30.0-100.0 1988-) - CT ABD PELVIS W/WXDO8426-34-11 09:50:00 [facility] 1975 Sex: F Name: SHE FITZGERALD [facility] : 1975 Age/S: 46 / F [address] [address] Unit [facility]: [id number] Loc: [place] [address] Phys: Vanesa Nunez MD Acct: [id number] Dis Date: Status: REG CLI PHONE #: [phone] Exam Date: 07/22/2021 0918 FAX #: Reason: CROHNS DISEASE, UNSPECIFIED, WITHOUT COMPLICATI EXAMS: CPT: [id number] CT ABD PELVIS W/CONT 41832 HISTORY: CROHN'S DISEASE, UNSPECIFIED, WITHOUT COMPLICATIONS TECHNIQUE: [...] FITZGERALD : 1975 Age/S: 46 / F [address] Unit #: [id number] Loc: [place] [address] Phys: Vanesa Nunez MD Acct: [id number] Dis Date: Status: REG CLI PHONE #: [phone] Exam Date: 07/22/2021 0918 FAX #: Reason: CROHNS DISEASE, UNSPECIFIED, WITHOUT COMPLICATIEXAMS: CPT: [id number] CT ABD PELVIS W/CONT 34122 (Continued) IMPRESSION: 1. There is mild diffuse [...] Ryan, RT(R) CTDI: DLP: Trnscb Date/Time: 07/22/2021 (3520) RobynNB16 Orig Print D/T: S: 07/22/2021 (0913) PAGE 2 Signed GobnshROLCG-WVZ5802-42-28 08:27:00 Test Item Value Reference Range Interpretation Comments ISTAT-BUN (test code = BUNP) 8 mg/dL 8-26 N BEDSIDE GGPKZZLHEK3676-50-61 08:27:00 Test Item Value Reference Range Interpretation Comments BEDSIDE CREATININE (test code = 0.6 mg/dL 0.6-1.3 N CREATBED) SARS-COV-2 (COVID19), NAAT [ADDED]2020-10-02 00:00:00 Test Item Value Reference Range Interpretation Comments SARS-CoV-2 INTERPRETATION (test NEGATIVE code = 20422) SOURCE (test code = 31535) NOT SPECIFIED SARS-COV-2 (COVID19), NAAT [ADDED]2020-10-02 00:00:00 Test Item Value Reference Range Interpretation Comments SARS-CoV-2 INTERPRETATION (test NEGATIVE code = 70506) SOURCE (test code = 47594) NOT SPECIFIED SARS-COV-2 (COVID19), NAAT [ADDED]2020-10-02 00:00:00 Test Item Value Reference Range Interpretation Comments SARS-CoV-2 INTERPRETATION (test NEGATIVE code = 16218) SOURCE (test code = 29787) NOT SPECIFIED SARS-CoV-2 (COVID-19) by RT-PCR (HIGH RISK)2020-04-17 00:00:00 Test Item Value Reference Range Interpretation Comments SARS-CoV-2 INTERPRETATION (test NEGATIVE code = 02231) SOURCE (test code = 04216) NOT SPECIFIED SARS-CoV-2 (COVID-19) by RT-PCR (HIGH RISK)2020-04-17 00:00:00 Test Item Value Reference Range Interpretation Comments SARS-CoV-2 INTERPRETATION (test NEGATIVE code = 26369) SOURCE (test code = 51523) NOT SPECIFIED SARS-CoV-2 (COVID-19) by RT-PCR (HIGH RISK)2020-04-17 00:00:00 Test Item Value Reference Range Interpretation Comments SARS-CoV-2 INTERPRETATION (test NEGATIVE code = 05034) SOURCE (test code = 84010) NOT SPECIFIED POC, COVID 19 Antigen + Flu by SofiaPOC, COVID 19 Antigen + Flu by Jennifer
[2023-07-04 23:04] LABS: Absolute Lymphocytes (CBC) 3.3 K/uL (0.7-4.9); Hematocrit 35.3 % (36.0-45.0); Lymphocytes % 34.1 % (15.3-44.8); MCV 80.5 fL (80-100); MPV 8.1 fL (7.6-11.3); Platelets 334 thou/uL (152-406); RBC Red Blood Cell Count 4.38 M/uL (3.86-4.86)
[2023-07-04] MEDS ORDERED: DICYCLOMINE HCL 10 MG CAP ONE (23:18)
[2023-07-04] MEDS ORDERED: NA CHLORIDE 0.9% 1,000 ML ONE (23:18)
[2023-07-04] MEDS ORDERED: ONDANSETRON 4 MG/2 ML VIAL ONE (23:18)
[2023-07-04] MEDS ORDERED: PANTOPRAZOLE 40 MG INJ ONE (23:18)
[2023-07-04 23:23] LABS: Bilirubin Total 0.4 mg/dL (0.2-1.0); Protein, Total 8.4 g/dL (6.4-8.2); Troponin High Sensitivity 5.4 pg/mL (<58.9)
[2023-07-04 23:38] LABS: Potassium 4.2 mEq/L (3.5-5.1)
--- NOTE | 2023-07-04 23:48 | ER ---
Nurse's Notes [facility] Name: Dori Guardado Age: 48 yrs Sex: Female : 1975 Arrival Date: 07/04/2023 Time: 22:24 Bed 14 Private MD: Diagnosis: Nausea with vomiting, unspecified Presentation: 07/04 22:37 Chief complaint: Patient states: NAUSEA, VOMITING AND MALAISE SINCE UPPER GI ON MONDAY, cm10 DX WITH GASTRITIS. Coronavirus screen: At this time, the client does not indicate any symptoms associated with coronavirus-19. Ebola Screen: No symptoms or risks identified at this time. Initial Sepsis Screen: Does the patient meet any 2 criteria? No. Patient's initial sepsis screen is negative. Does the patient have a suspected source of infection? No. Patient's initial sepsis screen is negative. Risk Assessment: Do you want to hurt yourself or someone else? Patient reports no desire to harm self or others. Onset of symptoms is unknown. 22:37 Method Of Arrival: Ambulatory cm10 22:37 Acuity: KASH 3 cm10 Triage Assessment: 23:00 General: Appears in no apparent distress. comfortable, Behavior is calm, cooperative. jw7 Pain: Denies pain. EENT: No deficits noted. No signs and/or symptoms were reported regarding the EENT system. Neuro: Carr Agitation-Sedation Scale (RASS): 0 - Alert and Calm. Cardiovascular: Capillary refill < 3 seconds Clubbing of nail beds is absent JVD is absent Patient's skin is warm and dry. 23:00 Respiratory: Airway is patent Trachea midline Respiratory effort is even, unlabored, jw7 Respiratory pattern is regular, symmetrical. GI:. GI: Abdomen is round non-distended, Bowel sounds present X 4 quads. Reports nausea, vomiting. : No deficits noted. No signs and/or symptoms were reported regarding the genitourinary system. Derm: Skin is intact, is healthy with good turgor, Skin is dry, Skin is normal, Skin temperature is warm. Musculoskeletal: Circulation, motion, and sensation intact. Range of motion: intact in all extremities. Historical: - Allergies: 22:38 No Known Allergies; cm10 - Home Meds: 22:38 Sotalol Oral [Active]; Eliquis oral [Active]; Sulfasalazine Oral [Active]; Humira cm10 subcutaneous [Active]; Omeprazole Oral [Active]; Famotidine Oral [Active]; - PMHx: 22:38 Atrial Fib; bowel obstruction; Crohn's; Hypertension; cm10 - PSHx: 22:38 Appendectomy; section; Cholecystectomy; partial hysterectomy; cm10 - Immunization history:: Adult Immunizations up to date. - Social history:: Smoking status: Patient denies any tobacco usage or history of. Screenin:00 [facility] ED Fall Risk Assessment (Adult) History of falling in the last 3 months, jw7 including since admission No falls in past 3 months (0 pts) Score/Fall Risk Level 0 - 2 = Low Risk Oriented to surroundings, Maintained a safe environment. Abuse screen: Denies threats or abuse. Denies injuries from another. Nutritional screening: No deficits noted. Tuberculosis screening: No symptoms or risk factors identified. Assessment: 23:19 General: Appears uncomfortable, Behavior is calm, cooperative. Pain: Complains of pain kl in abdomen Quality of pain is described as burning, aching, crampy. GI: Abdomen is obese, Reports upper abdominal pain, cramping, nausea. 07/05 00:00 Reassessment: Patient appears in no apparent distress at this time. Patient and/or jw7 family updated on plan of care and expected duration. Pain level reassessed. Patient is alert, oriented x 3, equal unlabored respirations, skin warm/dry/pink. Patient states feeling better. Patient states symptoms have improved. Vital Signs: 07/04 22:37 BP 132 / 92; Pulse 82; Resp 16; Temp 98; Pulse Ox 100% ; cm10 23:20 BP 130 / 89; kl 07/05 00:00 BP 123 / 91; Pulse 75; Resp 16 S; Pulse Ox 100% on R/A; jw7 ED Course: 07/04 22:27 Patient arrived in ED. kj1 22:30 Mishel Cota FNP-C is PHCP. kb 22:30 Hardy Yee MD is Attending Physician. kb 22:38 Triage completed. cm10 22:38 Arm band placed on. cm10 22:47 Marly Tapia RN is Primary Nurse. jw7 22:50 Inserted saline lock: 22 gauge in left antecubital area, using aseptic technique. Blood kl collected. 22:55 CBC with Diff Sent. kl 22:55 CMP Sent. kl 22:55 Lipase Sent. kl 23:00 Patient has correct armband on for positive identification. Bed in low position. Call jw7 light in reach. Side rails up X 1. 07/05 00:14 EKG done, by ED staff, reviewed by Mishel GEORGE. jw7 00:24 No provider procedures requiring assistance completed. IV discontinued, intact, jw7 bleeding controlled, No redness/swelling at site. Pressure dressing applied. 00:25 Provided Education on: discharge instructions and medications. jw7 Administered Medications: 07/04 23:00 Drug: Ondansetron IVP 4 mg IVP once; over 2 minutes Route: IVP; Site: left antecubital; 07/05 00:26 Follow up: Response: No adverse reaction; Marked relief of symptoms jw7 07/04 23:00 Drug: Pantoprazole IVP 40 mg IVP once Route: IVP; Site: left antecubital; 07/05 00:26 Follow up: Response: No adverse reaction; Marked relief of symptoms jw7 07/04 23:14 Drug: NS 0.9% IV 1000 ml IV at 1 bolus Per protocol; 1000 mL bolus Route: IV; Rate: 1 kl bolus; Site: left antecubital; 07/05 00:26 Follow up: Response: No adverse reaction; IV Status: Completed infusion; IV Intake: jw7 1000ml 07/04 23:14 Drug: Dicyclomine PO 20 mg PO once Route: PO; 07/05 00:26 Follow up: Response: No adverse reaction; Marked relief of symptoms jw7 Medication: 00:25 VIS not applicable for this client. jw7 Intake: 00:26 IV: 1000ml; Total: 1000ml. jw7 Outcome: 07/04 23:48 Discharge ordered by . danny 07/05 00:24 Discharged to home ambulatory, jw Condition: stable Discharge instructions given to patient, Instructed on discharge instructions, follow up and referral plans. medication usage, Demonstrated understanding of instructions, follow-up care, medications, Prescriptions given X 1, 00:27 Patient left the ED. jw7 Signatures: Mishel Cota FNP-C FNP-Sary Pandya RN RN kl Jackson, Kandis kj1 Waits, Marly, RN RN jw7 Oleg, Janel, RN RN cm10
--- NOTE | 2023-07-04 23:48 | EDPHYS ---
Physician Documentation [facility] Name: Dori Guardado Age: 48 yrs Sex: Female : 1975 Arrival Date: 07/04/2023 Time: 22:24 Bed 14 Private MD: RAFAELA Physician Hardy Yee HPI: 07/04 23:04 This 48 yrs old Black Female presents to ER via Ambulatory with complaints of kb Nausea/Vomiting. 23:04 The patient presents to the emergency department with nausea, vomiting. Onset: The kb symptoms/episode began/occurred this morning. Possible causes: unknown. The symptoms are aggravated by nothing. The symptoms are alleviated by nothing. Associated signs and symptoms: Pertinent positives: nausea, vomiting. Severity of symptoms: At their worst the symptoms were moderate in the emergency department the symptoms are unchanged. The patient has experienced similar episodes in the past. The patient has been recently seen by a physician:. Pt reports nausea and vomiting with burning to epigastric area that started this morning. States she had an endoscopy yesterday and was diagnosed with gastritis. . Historical: - Allergies: 22:38 No Known Allergies; cm10 - Home Meds: 22:38 Sotalol Oral [Active]; Eliquis oral [Active]; Sulfasalazine Oral [Active]; Humira cm10 subcutaneous [Active]; Omeprazole Oral [Active]; Famotidine Oral [Active]; - PMHx: 22:38 Atrial Fib; bowel obstruction; Crohn's; Hypertension; cm10 - PSHx: 22:38 Appendectomy; section; Cholecystectomy; partial hysterectomy; cm10 - Immunization history:: Adult Immunizations up to date. - Social history:: Smoking status: Patient denies any tobacco usage or history of. ROS: 23:04 Constitutional: Negative for fever, chills, and weight loss, kb 23:04 Abdomen/GI: Positive for nausea and vomiting, Negative for abdominal pain, 23:04 All other systems are negative, Exam: 23:04 Constitutional: This is a well developed, well nourished patient who is awake, alert, kb and in no acute distress. Head/Face: Normocephalic, atraumatic. ENT: Moist Mucous membranes Cardiovascular: Regular rate Respiratory: Respirations even and unlabored. No increased work of breathing. Talking in full sentences Abdomen/GI: Soft, non-tender. No distention Skin: Warm, dry with normal turgor. Normal color. MS/ Extremity: Pulses equal, no cyanosis. Neurovascular intact. Full, normal range of motion. Neuro: Awake and alert, GCS 15, oriented to person, place, time, and situation. Moves all extremities. Normal gait. Vital Signs: 22:37 BP 132 / 92; Pulse 82; Resp 16; Temp 98; Pulse Ox 100% ; cm10 23:20 BP 130 / 89; kl 07/05 00:00 BP 123 / 91; Pulse 75; Resp 16 S; Pulse Ox 100% on R/A; jw7 MDM: 07/04 22:30 Patient medically screened. kb 23:04 Differential diagnosis: Nonspecific abd pain, gastritis, pancreatitis. Data reviewed: vital signs, nurses notes. 23:47 Counseling: I had a detailed discussion with the patient and/or guardian regarding the kb historical points, exam findings, and any diagnostic results supporting the discharge/admit diagnosis, lab results, the need for outpatient follow up, a family practitioner, a admin prog coord, to return to the emergency department if symptoms worsen or persist or if there are any questions or concerns that arise at home. Response to treatment: the patient's symptoms have resolved after treatment. 07/04 22:33 Order name: CBC with Diff; Complete Time: 23:35 kb 07/04 22:33 Order name: CMP; Complete Time: 23:41 kb 07/04 22:33 Order name: Lipase; Complete Time: 23:41 kb 07/04 22:33 Order name: Troponin High Sensitivity; Complete Time: 23:41 kb 07/04 22:33 Order name: EKG; Complete Time: 22:33 kb 07/04 22:33 Order name: IV Saline Lock; Complete Time: 22:55 kb 07/04 22:33 Order name: Labs collected and sent; Complete Time: 22:55 kb 07/04 22:33 Order name: EKG - Nurse/Tech; Complete Time: 00:14 kb Administered Medications: 23:00 Drug: Ondansetron IVP 4 mg IVP once; over 2 minutes Route: IVP; Site: left antecubital; 07/05 00:26 Follow up: Response: No adverse reaction; Marked relief of symptoms [facility] 07/04 23:00 Drug: Pantoprazole IVP 40 mg IVP once Route: IVP; Site: left antecubital; 07/05 00:26 Follow up: Response: No adverse reaction; Marked relief of symptoms jw7 07/04 23:14 Drug: NS 0.9% IV 1000 ml IV at 1 bolus Per protocol; 1000 mL bolus Route: IV; Rate: 1 kl bolus; Site: left antecubital; 07/05 00:26 Follow up: Response: No adverse reaction; IV Status: Completed infusion; IV Intake: jw7 1000ml 07/04 23:14 Drug: Dicyclomine PO 20 mg PO once Route: PO; 07/05 00: Follow up: Response: No adverse reaction; Marked relief of symptoms jw7 Disposition Summary: 07/04/23 23:48 Discharge Ordered Notes: Location: Home kb Condition: Stable kb Diagnosis - Nausea with vomiting, unspecified kb Followup: kb - With: Emergency Department - When: As needed - Reason: Worsening of condition Followup: kb - With: Private Physician - When: 2 - 3 days - Reason: Recheck today's complaints, Continuance of care, Re-evaluation by your physician Discharge Instructions: - Discharge Summary Sheet kb - Gastritis, Adult, [id number] kb - Nausea and Vomiting, Adult, [id number] kb Forms: - Medication Reconciliation Form kb - Thank You Letter kb - Antibiotic Education kb - Prescription Opioid Use kb - Patient Portal Instructions kb - Leadership Thank You Letter kb Prescriptions: - ondansetron 4 mg Oral Tablet,disintegrating - take 1 tablet ORAL route every 6 hours As needed; 12 tablet; Refills: 0, kb Product Selection Permitted Signatures: Dispatcher [employer] Mishel Mancilla, ROOM WORKER-C ROOM WORKER-Sary Pandya RN Janel Galeas RN RN cm10 Marly Tapia RN jw7 Corrections: (The following items were deleted from the chart) 07/04 23:06 23:04 Pt reports nausea and vomiting with burning to epigastric area that started this kb morning. States she had an endoscopy and was diagnosed with gastritis. . kb
[2023-07-05 02:25] VITALS: TEMP 98; O2SAT 100
[2023-07-05 02:27] VITALS: BP 123/91
--- NOTE | 2023-07-05 12:35 | EKG ---
Test Date: 2023-07-05 Test Time: 00:06:55 Shape Brick Molder: BELKIS MEASUREMENT RESULTS: Intervals: Rate: 78 NE: 154 QRSD: 82 QT: 388 QTc: 442 Exline: P: 52 NE: 154 QRS: 1 T: 7 INTERPRETIVE STATEMENTS: Normal sinus rhythm Normal ECG Compared to ECG 06/14/2023 21:50:35 No significant changes Electronically Signed On 07-05-23 12:34:27 CDT by Avery Holt
== END 2023-07-05 00:27 | disposition home or self-care (01) ==
LOC: ER 22:24
DX: R11.2 Nausea with vomiting, unspecified (principal); I10 Essential (primary) hypertension
CPT/HCPCS: 96361; 93005; 85025; 36415; 84484; 83690; 80053; 96375; 96374; 99284; C9113; J2405; J7030

== ENCOUNTER 2023-08-05 09:54 | Emergency (ER) | payer OTHER ==
--- OUTSIDE RECORDS SUMMARY | 2023-08-05 10:05 | XMS REPORT | Continuity of Care Document ---
:1975 Author Organization [facility] t Address [address] [facility] [address] [place] [address] Care Team Providers Name Role Phone CASIE MUNOZ Primary Care Physician Unavailable Taylor Chung Attending Clinician Unavailable Karol Rich Attending Clinician Unavailable Noemy Lopez Attending Clinician Unavailable LICO TREVIZO Attending Clinician Unavailable LUCY CUEVAS Attending Clinician Unavailable LUCY CUEVAS Attending Clinician Unavailable [email or web address]_S Attending Clinician Unavailable CHRISTINA OSORIO Attending Clinician Unavailable CHRISTINA OSORIO Attending Clinician Unavailable Justo Koehler Attending Clinician MAC LEWIS Attending Clinician Unavailable MAC LEWSI Attending Clinician Unavailable Lico Trevizo MD Attending Clinician [facility] Attending Clinician Unavailable Christina Osorio MD Attending Clinician Doctor Unassigned, [place] Attending Clinician Unavailable Vanesa Nunez Attending Clinician Unavailable Raissa Tran DO Attending Clinician [email or web address]_S Admitting Clinician Unavailable Noemy Lopez Admitting Clinician Unavailable Payers Payer Name Policy Type Policy Number Effective Date Expiration Date Frank fregoso [facility] [id number] 2020 HEALTH CHOICE 00:00:00 [place] [address] [id number] 2020 Common Spiri t Health Choice 00:00:00 - [facility] [place] [address] [id number] 2020 Common Spiri t Health Choice 00:00:00 - [facility] [place] [address] [id number] 2020 Common Spiri t Health Choice 00:00:00 [facility] Problems Condition Condition Condition Status Onset Resolution Last Treating Co mments Source Name Details Category Date Date Treatment Clinician Date AFIB/I48.0 AFIB/I48. Diagnosis Active 2023-05-30 Memoria 0 Active 04-18 09:01:00 l 04/18/2023 00:00: Nain muñoz MH 00 [facility] [id number] Microcytic Problem Co mmon anemia [facility] [id number] [place] [address] joint, Spirit knee, - CHI right [facility] [id number] Sinusitis, Problem Com mon maxillary, Spirit chronic [facility] [id number] Recurrent Problem Com mon falls Spirit [facility] [id number] Balance Problem Commo n problem Spirit [facility] Morbid Obesity, Problem Common obesity morbid, Spirit BMI 50 or - CHI higher [facility] [id number] Crohn's Problem Commo n disease in [facility] remission [facility] Iron Iron Problem Common deficiency deficiency Sp jose anemia anemia, - CHI unspecifie [facility] deficiency Medica l anemia Center type [id number] Adult Problem Common general [facility] medical [facility] exam [facility] [id number] Hematuria, Problem Com mon unspecifie [facility] d [facility] [id number] Multiple Problem Commo n joint pain [facility] [id number] Urinary Problem Common tract Spirit infection, - CHI site not [facility] [id number] Body mass Problem Com mon index Spirit [BMI] - CHI 50.0-59.9, [facility] [id number] Vitamin D Problem Comm on deficiency Spirit - CHI [facility] [id number] Grieving Problem Comm on Spirit - CHI [facility] [id number] Seasonal Problem Comm on allergic Spirit rhinitis, - CHI unspecifie d [facility] [id number] Abdominal Problem Com mon bloating Spirit - CHI [facility] [id number] Seasonal Problem Commo n allergic Spirit rhinitis - CHI due to pollen [facility] Mixed Depression Problem Commo n anxiety with Spirit and anxiety - CHI depressive [facility] [id number] Other Problem Common chronic Spirit pain - CHI [facility] [id number] Esophageal Problem Com mon stricture [facility] - CHI [facility] [id number] Morbid Problem Commo n 9104 (severe) Spirit obesity - CHI due to [facility] [id number] Essential Problem Comm on hypertensi Spirit on - CHI [facility] [id number] Atrial Problem Common fibrillati Spirit on, - CHI unspecifie [facility] Gastroesop Gastroeso Problem Active 2023-05-30 Memoria hageal phageal 00:40:15 l reflux reflux [place] disease disease (disorder) (disorder) Active Problem 05/30/2023 [facility] Hypertensi Hypertens Problem Active 2023-05-30 Memoria ve papo 00:40:15 l disorder, disorder, Herm erich systemic systemic arterial arterial (disorder) (disorder) Active Problem 05/30/2023 [facility] Rheumatoid Rheumatoi Problem Active 2023-05-30 Memoria arthritis d 00:40:15 l (disorder) arthritis Her dumont (disorder) Active Problem 05/30/2023 [facility] Sleep Sleep Problem Active 2023-05-30 Memor ia apnea apnea 00:40:15 l (finding) (finding) Herm erich Active Problem 05/30/2023 [facility] PAROXYSMAL PAROXYSMA Diagnosis Active 2023-05-30 Memoria ATRIAL L ATRIAL 09:01:00 l FIBRILLATI FIBRILLATI He rmann ON ON Active [facility] Crohn's Crohn's Problem Active 2023-05-30 Me moria disease disease 00:40:15 l (disorder) (disorder) He rmann Active Problem 05/30/2023 [facility] No known No known Disease Unive rs active active ity of problems problems [facility] Allergies, Adverse Reactions, Alerts Allergy Allergy Status Severity Reaction(s) Onset Inactive Treating Comm ents Source Name Type Date Date Clinician No Known DA Active U 2020-09 [facility] Allergie 0-28 [place] s 00:00: d 00 [facility] No Known DA Active U 2020-09 [facility] Allergie 0-28 [place] s 00:00: d 00 [facility] No Known No Known Active Memori a Medicati Medicati l on on [place] Allergie Allergie s s NKFA NKFA Active Memoria l [place] NO KNOWN Drug Active Univers ALLERGIE Class ity of S [facility] Social History Social Habit Start Date Stop Date Quantity Comments Source History of Tobacco Common Spirit - Use [facility] Sex Assigned At Common Sp jose - [facility] Gender identity [facility] Social 2023-05-01 2023-05-01 Univers ity of function 00:00:00 00:00:00 [facility] Tobacco use and 2023-03-20 2023-03-20 Smokeless Universit y of exposure 00:00:00 00:00:00 tobacco non-user [facility] Smoking Status Start Date Stop Date Source Tobacco smoking consumption Univ [facility] Tobacco smoking status [facility] Medications Ordered Filled Start Stop Current Ordering Indication Dosage Frequency Signature Comments Components Source Medication Medication Date Date Medication? Clinician (SIG) Name Name sucralfate Yes 1 gm = 1 Mem oria 1 g oral 02 tab, PO, l tablet 15:33: BID-Before Caridad nn 00 Meals, # 28 tab, 0 Refill(s) levocetiriz Yes 5 mg = 1 Me moria ine 5 mg 8-23 tab, PO, l oral tablet 14:44: PRN, PRN He rmann 00 Allergies famotidine Yes 40 mg = 1 Me moria 40 mg oral 8-23 tab, PO, l tablet 14:44: Bedtime [place] omeprazole Yes 40 mg = 1 Me moria 40 mg oral 8-23 cap, PO, l delayed 14:44: QAM [place] release 00 capsule Eliquis 5 2022-0 Yes [...] ity o f tablet 10:24: mouth in [place] [address] the Medical morning. Branch chlorthalid 2022-0 Yes 25mg Take 1 Univ ers one 25 mg 8-07 tablet by ity o f tablet 10:24: mouth in [place] [address] the Medical morning. Branch chlorthalid 2022-0 Yes 25mg Take 1 Univ ers one 25 mg 8-07 tablet by ity o f tablet 10:24: mouth in [place] [address] the Medical morning. Branch chlorthalid 2022-0 Yes 25mg Take 1 Univ ers one 25 mg 7-24 tablet by ity o f tablet 08:13: mouth in [place] [address] the Medical morning. Branch triamterene 0 Yes 1{capsu Take 1 U nivers -hydrochlor [...] mg morning. Branc h per capsule triamterene 2022-2022- No 1{capsu Take 1 Univers -hydrochlor 7-20 07-20 le} capsule by i ty of othiazide 00:00: 00:00 mouth [place] (DYAZIDE) 00 :00 every Medical 37.5-25 mg morning. Branc h per capsule sotaloL 80 2022-2022- No 80mg Take 1 Univ ers mg tablet -01 29-05 tablet by ity of 14:59: 00:00 mouth in [place] 32 :00 [facility] and 1 tablet in the evening. Pt takes 40 mg in the AM and 40 mg in PM apixaban 5 2022-2022- No 5mg Take 1 Univ ers mg tablet 03-29-05 tablet by ity of 14:59: 00:00 mouth in [place] 32 :00 [facility] and 1 tablet in the evening. sotaloL 80 2022-2022- No 80mg Take 1 Univ ers mg tablet 03-29-05 tablet by ity of 14:59: 00:00 mouth in [place] 32 :00 [facility] and 1 tablet in the evening. Pt takes 40 mg in the AM and 40 mg in PM apixaban 5 2022-2022- No 5mg Take 1 Univ ers mg tablet 03-29-05 tablet by ity of 14:59: 00:00 mouth in [place] 32 :00 [facility] and 1 tablet in the evening. sotaloL 80 2022-0 2022- No 80mg Take 1 Univ ers mg tablet 03-29-05 tablet by ity of 14:59: 00:00 mouth in [place] 32 :00 [facility] and 1 tablet in the evening. Pt takes 40 mg in the AM and 40 mg in PM apixaban 5 2022-0 2022- No 5mg Take 1 Univ ers mg tablet -01 29-05 tablet by ity of 14:59: 00:00 mouth in [place] 32 :00 [facility] and 1 tablet in the evening. [...] in the evening. sotaloL 80 2022-0 Yes [id number] 80mg Take 1 Univers mg tablet 7-05 tablet by ity o f 00:00: mouth in [place] 00 the Medical morning Branch and 1 tablet in the evening. Pt takes 40 mg in the AM and 40 mg in PM apixaban 5 2022-0 Yes 1358 5mg Take 1 Unive rs mg tablet 7-05 tablet by ity o f 00:00: mouth in [place] [address] the [facility] morning Branch and 1 tablet in the evening. Indication s: atrial fibrillati on apixaban 5 2022-0 Yes 1358 5mg Take 1 Unive rs mg tablet 7-05 tablet by ity o f 00:00: mouth in [place] [address] the Medical morning Branch and 1 tablet in the evening. Indication s: atrial fibrillati on sotaloL 80 2022-0 Yes [id number] 40mg Take 0.5 Univers mg tablet 7-05 tablets by ity of 00:00: mouth in [place] [address] the [facility] morning Branch and 0.5 tablets in the evening. Pt takes 40 mg in the AM and 40 mg in PM apixaban 5 2022-0 Yes 1358 5mg Take 1 Unive rs mg tablet 7-05 tablet by ity o f 00:00: mouth in [place] [address] the Medical morning Branch and 1 tablet in the evening. Indication s: atrial fibrillati on sotaloL 80 2022-0 Yes [id number] 40mg Take 0.5 Univers mg tablet 7-05 tablets by ity of 00:00: mouth in [place] [address] the [facility] morning Branch and 0.5 tablets in the evening. Pt takes 40 mg in the AM and 40 mg in PM apixaban 5 2022-0 Yes 1358 5mg Take 1 Unive rs mg tablet 7-05 tablet by ity o f 00:00: mouth in [place] [address] the [facility] morning Branch and 1 tablet in the evening. Indication s: atrial fibrillati on sotaloL 80 2022-0 Yes [id number] 40mg Take 0.5 Univers mg tablet 7-05 tablets by ity of 00:00: mouth in [place] the [facility] morning Branch and 0.5 tablets in the evening. Pt takes 40 mg in the AM and 40 mg in PM apixaban 5 2022-0 Yes 1358 5mg Take 1 Unive rs mg tablet 7-05 tablet by ity o f 00:00: mouth in [place] [address] the [facility] morning Branch and 1 tablet in the evening. Indication s: atrial fibrillati on sotaloL 80 0 Yes [id number] 40mg Take 0.5 Univers mg tablet 7-05 tablets by ity of 00:00: mouth in [place] [address] the [facility] morning Branch and 0.5 tablets in the evening. Pt takes 40 mg in the AM and 40 mg in PM apixaban 5 2022-0 Yes 1358 5mg Take 1 Unive rs mg tablet 7-05 tablet by ity o f 00:00: mouth in [place] [address] the [facility] morning [place] and 1 tablet in the evening. Indication s: atrial fibrillati on sotaloL 80 0 Yes [id number] 40mg Take 0.5 Univers mg tablet 7-05 tablets by ity of 00:00: mouth in [place] [address] the [facility] morning [place] and 0.5 tablets in the evening. Pt takes 40 mg in the AM and 40 mg in PM apixaban 5 2022-0 Yes 1358 5mg Take 1 Unive rs mg tablet 7-05 tablet by ity o f 00:00: mouth in [place] [address] the [facility] morning Branch and 1 tablet in the evening. Indication s: atrial fibrillati on sotaloL 80 2022-0 Yes [id number] 40mg Take 0.5 Univers mg tablet 7-05 tablets by ity of 00:00: mouth in [place] [address] the [facility] morning Branch and 0.5 tablets in the evening. Pt takes 40 mg in the AM and 40 mg in PM apixaban 5 2022-0 Yes 1358 5mg Take 1 Unive rs mg tablet 7-05 tablet by ity o f 00:00: mouth in [address] morning Branch and 1 tablet in the evening. Indication s: atrial fibrillati on sotaloL 80 2022-0 Yes [id number] 40mg Take 0.5 Univers mg tablet 7-05 tablets by ity of 00:00: mouth in [place] 00 the Medical morning Branch and 0.5 tablets in the evening. Pt takes 40 mg in the AM and 40 mg in PM apixaban 5 2022-0 Yes 1358 5mg Take 1 Unive rs mg tablet 7-05 tablet by ity o f 00:00: mouth in [place] 00 the [facility] morning Branch and 1 tablet in the evening. Indication s: atrial fibrillati on sotaloL 80 Yes [id number] 40mg Take 0.5 Univers mg tablet 7-05 tablets by ity of 00:00: mouth in [place] 00 the Medical morning Branch and 0.5 tablets in the evening. Pt takes 40 mg in the AM and 40 mg in PM apixaban 5 Yes 1358 5mg Take 1 Unive rs mg tablet 7-05 tablet by ity o f 00:00: mouth in [place] 00 [facility] morning [place] and 1 tablet in the evening. Indication s: atrial fibrillati on sotaloL 80 Yes [id number] 40mg Take 0.5 Univers mg tablet 7-05 tablets by ity of 00:00: mouth in [place] 00 the [facility] morning [place] and 0.5 tablets in the evening. Pt takes 40 mg in the AM and 40 mg in PM sotaloL 80 Yes [id number] 80mg Take 1 Univers mg tablet 7-05 tablet by ity o f 00:00: mouth in [place] 00 the [facility] morning [place] and 1 tablet in the evening. Pt takes 40 mg in the AM and 40 mg in PM apixaban 5 Yes 1358 5mg Take 1 Unive rs mg tablet 7-05 tablet by ity o f 00:00: mouth in [place] 00 [facility] morning Branch and 1 tablet in the evening. Indication s: atrial fibrillati on sotaloL 80 2022-0 2022- No [id number] 80mg Take 1 Univers mg tablet 7-05 07-05 tablet by ity of 00:00: 00:00 mouth in [place] 00 :00 the [facility] morning [place] and 1 tablet in the evening. Pt takes 40 mg in the AM and 40 mg in PM adalimumab Yes inject Unive rs (GABBY MILLER, 6-26 under the ity of [place]) 15:30: skin. [place] [address] Medical Branch dicyclomine 2023-0 Yes 10mg Take [...] hours. adalimumab 2023-0 Yes inject Unive rs (ANGELA,CF, 6-26 under the ity of [place]) 15:30: skin. [place] [address] Medical Branch dicyclomine 2023-0 Yes 10mg Take [...] the ity of [place]) 15:30: skin. [place] [address] Medical Branch dicyclomine 2023-0 Yes 10mg Take [...] the ity of [place]) 15:30: skin. [place] [address] Medical Branch dicyclomine 2023-0 Yes 10mg Take [...] the ity of [place]) 15:30: skin. [place] [address] Medical Branch dicyclomine 2023-0 Yes 10mg Take [...] the ity of [place]) 15:30: skin. [place] [address] Medical Branch dicyclomine 2023-0 Yes 10mg Take [...] the ity of [place]) 15:30: skin. [place] [address] Medical Branch dicyclomine 2023-0 Yes 10mg Take [...] the ity of [place]) 15:30: skin. [place] [address] Medical Branch dicyclomine 2023-0 Yes 10mg Take [...] the ity of [place]) 15:30: skin. [place] [address] Medical Branch dicyclomine 2023-0 Yes 10mg Take [...] the ity of [place]) 15:30: skin. [place] [address] Medical Branch dicyclomine 2023-0 Yes 10mg Take [...] the ity of [place]) 15:30: skin. [place] [address] Medical Branch dicyclomine 2023-0 Yes 10mg Take [...] the ity of [place]) 15:30: skin. [place] [address] Medical Branch dicyclomine 2023-0 Yes 10mg Take [...] by ity o f tablet 15:30: mouth [place] [address] every 12 Medical (twelve) Branch hours. sotaloL 80 2023-0 Yes 80mg Take 1 Unive rs mg tablet 6-26 tablet by ity o f 15:30: mouth in [place] [address] the Medical morning Branch and 1 tablet in the evening. Pt takes 40 mg in the AM and 40 mg in PM apixaban 5 3-0 Yes 5mg Take 1 Unive rs mg tablet 6-26 tablet by ity o f 15:30: mouth in [place] [address] the Medical morning Branch and 1 tablet in the evening. adalimumab 2023-0 Yes inject Unive rs (HUMIRA,CF, 6-26 under the ity of [place]) 15:30: skin. [place] [address] Medical Branch dicyclomine 2023-0 Yes 10mg Take 1 Univ ers 10 mg 6-26 capsule by ity of capsule 15:30: mouth as [place] [address] needed for Medical Abdominal Branch pain. vancomycin 2023-0 Yes 500mg Take 6 mL U nivers 500 mg/6 mL 6-26 by mouth ity of oral 15:30: in the [place] [address] morning Medical and 6 mL Branch at noon and 6 mL in the evening. metroNIDAZO 2023-0 Yes 500mg Take 1 Uni vers LE 500 mg 6-26 tablet by ity o f tablet 15:30: mouth [place] [address] every 12 Medical (twelve) Branch hours. sotaloL 80 2023-0 Yes 80mg Take 1 Unive rs mg tablet 6-26 tablet by ity o f 15:30: mouth in [place] [address] the Medical morning Branch and 1 tablet in the evening. Pt takes 40 mg in the AM and 40 mg in PM apixaban 5 2023-0 Yes 5mg Take 1 Unive rs mg tablet 6-26 tablet by ity o f 15:30: mouth in [place] [address] the Medical morning Branch and 1 tablet in the evening. adalimumab 2023-0 Yes inject Unive rs (HUMIRA,CF, 6-26 under the ity of [place]) 15:30: skin. [place] [address] Medical Branch dicyclomine 2023-0 Yes 10mg Take [...] the ity of [place]) 15:30: skin. [place] 35 Medical Branch dicyclomine 2022-0 Yes 10mg [...] by ity o f tablet 15:30: mouth [place] 35 every 12 Medical (twelve) Branch hours. ALPRAZolam ALPRAZolam No 1{table ALPRAZolam 0.5 MG 0.5 MG 5-03 t} 0.5 MG 00:00: 00 ALPRAZolam ALPRAZolam No 1{table ALPRAZolam 0.5 MG 0.5 MG 5-03 t} 0.5 MG 00:00: 00 Kenalog 0.1 Kenalog 0.1 2021-09- No BID [...] :00 r_milk} HUMIRA PEN 2021-0 No KIT 12 CD/UC/HS 00:00: 00 IPRATROPIUM No SPR 0.06% [...] 7 00:00: 00 Dose 2-0 No Unknown 04-20 00:00: 00 Dose 2021-0 No Unknown 04-20 00:00: 00 Augmentin Augmentin 2021-0 2- No 1{table BID Augmentin 500-125 MG 500-125 MG 03-3013 t} 500-125 MG 00:00: 00:00 00 :00 [...] No Unknown 4 00:00: 00 ProAir HFA 2-0 No 2mcg/ac 90 01-21 tuation mcg/actuati 00:00: [...] n 250 MG n 250 MG 1-04 -09 in 250 MG 00:00: 00:00 00 :00 No known 2020-1 No Univers medications 0-09 ity of 19:54: [address] metoprolol 2020-0 No 1mg tartrate 50 [...] mg tablet fluticasone 0 No mcg/act propionate 804 uation 50 00:00: mcg/actuati 00 on nasal spray,suspe nsion Pantoprazol Pantoprazol 2019-0 Yes Na Lopez 1 tablet Common e Sodium e Sodium 05-04 Spirit 00:00: - [facility]I 00 [facility] Ergocalcife Ergocalcife 2018- 2020- No Na Lopez 1 capsule Common rol rol 1-18 11-10 Spirit 00:00: 00:00 - CHI 00 :00 [facility] Paxil Paxil 2017-0 Yes Na Lopez 1 tablet Comm on 12-26 in the Spirit 00:00: morning - CHI 00 [facility] Humira Humira Yes Na Lopez not Common defined [facility] Aspirin Aspirin Yes Na Lopez not Common defined [facility] BusPIRone BusPIRone Yes Na Lopez 1 tablet Common HCl HCl [facility] Metoprolol Metoprolol Yes Na Lopez 1 tablet Common [facility] T[facility] Lage[facility] Lagevrio No 4{capsu BID [...] MG Ergocalcife Ergocalcife No 1{capsu Ergocalcif rol 02441 rol 17241 le} fortunato [address]83[address] UNIT UNIT UNIT Gabapentin Gabapentin No 1{capsu [...] MCG/ACT Ergocalcife Ergocalcife No 1{capsu Ergocalcif rol 44153 rol 37115 le} fortunato 47945 UNIT UNIT UNIT Gabapentin Gabapentin No 1{capsu [...] MG Ergocalcife Ergocalcife No 1{capsu Ergocalcif rol 29190 rol 32520 le} fortunato 36323 UNIT UNIT UNIT Montelukast Montelukast No 1{table [...] MG t} Ergocalcife Ergocalcife No 1{capsu rol 82276 rol 83939 le} UNIT UNIT Montelukast Montelukast No 1{table [...] MG Ergocalcife Ergocalcife No 1{capsu Ergocalcif rol 19201 rol 20295 le} fortunato 72521 UNIT UNIT UNIT Montelukast Montelukast No 1{table [...] MG Ergocalcife Ergocalcife No 1{capsu Ergocalcif rol 08829 rol 96104 le} fortunato 930[address] UNIT UNIT UNIT Omeprazole Omeprazole No 1{capsu [...] MG Ergocalcife Ergocalcife No 1{capsu Ergocalcif rol 33308 rol 08406 le} fortunato 44376 UNIT UNIT UNIT Humira Humira No Humira [...] MG Ergocalcife Ergocalcife No 1{capsu Ergocalcif rol 23009 rol 36208 le} fortunato 16311 UNIT UNIT UNIT Famotidine Famotidine No 1{table [...] MG Ergocalcife Ergocalcife No 1{capsu Ergocalcif rol 20569 rol 48154 le} fortunato 14432 UNIT UNIT UNIT busPIRone busPIRone No 1{table [...] MG Ergocalcife Ergocalcife No 1{capsu Ergocalcif rol 36704 rol 39815 le} fortunato 61579 UNIT UNIT UNIT Montelukast Montelukast No 1{table [...] MG Ergocalcife Ergocalcife No 1{capsu Ergocalcif rol 59144 rol 83751 le} fortunato 43065 UNIT UNIT UNIT Montelukast Montelukast No 1{table [...] MG Ergocalcife Ergocalcife No 1{capsu Ergocalcif rol 15152 rol 90805 le} [place]ato 47085 UNIT UNIT UNIT Flonase 50 Flonase 50 [...] MG Ergocalcife Ergocalcife No 1{capsu Ergocalcif rol 01688 rol 71471 le} fortunato 71309 UNIT UNIT UNIT PARoxetine PARoxetine No PARoxetine [...] MG Ergocalcife Ergocalcife No 1{capsu Ergocalcif rol 92153 rol 12647 le} fortunato 55538 UNIT UNIT UNIT PARoxetine PARoxetine No PARoxetine [...] MG Ergocalcife Ergocalcife No 1{capsu Ergocalcif rol 88991 rol 36175 le} fortunato 32315 UNIT UNIT UNIT Aspirin 81 Aspirin 81 [...] MG Ergocalcife Ergocalcife No 1{capsu Ergocalcif rol 99087 rol 54088 le} fortunato 03238 UNIT UNIT UNIT ALPRAZolam ALPRAZolam No 1{table [...] MG Ergocalcife Ergocalcife No 1{capsu Ergocalcif rol 60021 rol 45196 le} fortunato 83330 UNIT UNIT UNIT ALPRAZolam ALPRAZolam No 1{table [...] MG Ergocalcife Ergocalcife No 1{capsu Ergocalcif rol 26889 rol 84079 le} fortunato 18860 UNIT UNIT UNIT ALPRAZolam ALPRAZolam No 1{table [...] MG Ergocalcife Ergocalcife No 1{capsu Ergocalcif rol 36314 rol 77436 le} fortunato 30957 UNIT UNIT UNIT Benzonatate Benzonatate No TID [...] MG Ergocalcife Ergocalcife No 1{capsu Ergocalcif rol 63237 rol 98204 le} fortunato 92766 UNIT UNIT UNIT Benzonatate Benzonatate No TID [...] MG Ergocalcife Ergocalcife No 1{capsu Ergocalcif rol 84238 rol 14718 le} fortunato 25164 UNIT UNIT UNIT Famotidine Famotidine No Famotidine [...] MG Ergocalcife Ergocalcife No 1{capsu Ergocalcif rol 67633 rol 24801 le} fortunato 02398 UNIT UNIT UNIT Famotidine Famotidine No Famotidine [...] MG Ergocalcife Ergocalcife No 1{capsu Ergocalcif rol 12080 rol 04298 le} fortunato 08131 UNIT UNIT UNIT Gabapentin Gabapentin No 1{capsu [...] MCG/ACT Ergocalcife Ergocalcife No 1{capsu Ergocalcif rol 66632 rol 64476 le} fortunato 33352 UNIT UNIT UNIT Gabapentin Gabapentin No 1{capsu [...] MG Ergocalcife Ergocalcife No 1{capsu Ergocalcif rol 89327 rol 94202 le} fortunato 68863 UNIT UNIT UNIT Montelukast Montelukast No Montelukas [...] MG Ergocalcife Ergocalcife No 1{capsu Ergocalcif rol 86386 rol 02112 le} fortunato 20248 UNIT UNIT UNIT Cetirizine Cetirizine No Cetirizine [...] MG Ergocalcife Ergocalcife No 1{capsu Ergocalcif rol 17780 rol 68815 le} fortunato 20375 UNIT UNIT UNIT Cetirizine Cetirizine No Cetirizine [...] MG Ergocalcife Ergocalcife No 1{capsu Ergocalcif rol 71954 rol 37515 le} fortunato 37814 UNIT UNIT UNIT Cetirizine Cetirizine No Cetirizine [...] MG Ergocalcife Ergocalcife No 1{capsu Ergocalcif rol 09202 rol 30208 le} fortunato 96777 UNIT UNIT UNIT Cetirizine Cetirizine No Cetirizine [...] MG Ergocalcife Ergocalcife No 1{capsu Ergocalcif rol 64894 rol 51886 le} fortunato 71955 UNIT UNIT UNIT Cetirizine Cetirizine No Cetirizine [...] MG Ergocalcife Ergocalcife No 1{capsu Ergocalcif rol 18745 rol 11521 le} fortunato 20389 UNIT UNIT UNIT guaiFENesin guaiFENesin No 10{ml_a [...] MG Ergocalcife Ergocalcife No 1{capsu Ergocalcif rol 83748 rol 84651 le} fortunato 77936 UNIT UNIT UNIT Meloxicam Meloxicam No Meloxicam [...] 100 MG 100 MG e 100 MG Famotidine Famotidine No Famotidine 40 MG 40 MG 40 MG Gabapentin Gabapentin No 1{capsu TID Gabapentin 100 MG 100 MG le} 100 MG PARoxetine PARoxetine No PARoxetine HCl 20 MG HCl 20 MG HCl 20 MG Montelukast Montelukast No Montelukas Sodium 10 Sodium 10 t Sodium MG MG 10 MG Eliquis 5 Eliquis 5 No 1{table BID Eliquis 5 MG MG t} MG guaiFENesin guaiFENesin No 10{ml_a 6xD guaiFENesi AC 100-10 AC 100-10 s_neede n AC MG/5ML MG/5ML d} 100-10 MG/5ML Sotalol HCl Sotalol HCl No 1{table BID Sotalol 80 MG 80 MG t} HCl 80 MG Fluticasone Fluticasone No Fluticason Propionate Propionate e 50 MCG/ACT 50 MCG/ACT Propionate 50 MCG/ACT Omeprazole Omeprazole No 1{capsu QD Omeprazole 40 MG 40 MG le} 40 MG busPIRone busPIRone No 1{table TID busPIRone HCl 10 MG HCl 10 MG t} HCl 10 MG Azithromyci Azithromyci No QD Azithromyc n 250 MG n 250 MG in 250 MG sulfaSALAzi sulfaSALAzi No 1{table BID sulfaSALAz ne 500 MG ne 500 MG t} ine 500 MG Albuterol Albuterol No 2{puffs Albuterol Sulfate HFA Sulfate HFA } Sulfate 108 (90 108 (90 HFA 108 Base) Base) (90 Base) MCG/ACT MCG/ACT MCG/ACT Famotidine Famotidine No Famotidine 40 MG 40 MG 40 MG Gabapentin Gabapentin No 1{capsu TID Gabapentin 100 MG 100 MG le} 100 MG PARoxetine PARoxetine No PARoxetine HCl 20 MG HCl 20 MG HCl 20 MG Montelukast Montelukast No Montelukas Sodium 10 Sodium 10 t Sodium MG MG 10 MG Eliquis 5 Eliquis 5 No 1{table BID Eliquis 5 MG MG t} MG Paxil 20 MG Paxil 20 MG No 1{table QD Paxil 20 t_in_th MG e_morni ng} guaiFENesin guaiFENesin No 10{ml_a 6xD guaiFENesi AC 100-10 AC 100-10 s_neede n AC MG/5ML MG/5ML d} 100-10 MG/5ML Sotalol HCl Sotalol HCl No 1{table BID Sotalol 80 MG 80 MG t} HCl 80 MG Fluticasone Fluticasone No Fluticason Propionate Propionate e 50 MCG/ACT 50 MCG/ACT Propionate 50 MCG/ACT Omeprazole Omeprazole No 1{capsu QD Omeprazole 40 MG 40 MG le} 40 MG busPIRone busPIRone No 1{table TID busPIRone HCl 10 MG HCl 10 MG t} HCl 10 MG sulfaSALAzi sulfaSALAzi No 1{table BID sulfaSALAz ne 500 MG ne 500 MG t} ine 500 MG Albuterol Albuterol No 2{puffs Albuterol Sulfate HFA Sulfate HFA } Sulfate 108 (90 108 (90 HFA 108 Base) Base) (90 Base) MCG/ACT MCG/ACT MCG/ACT Vital Signs Vital Name Observation Time Observation Value Comments Source Systolic blood 2023-05-01 15:23:00 144 [facility]Hg[facility] 2023-05-01 15:23:00 89 mm[facility]Hg[facility]-01 15:23:00 75 /min [facility] Respiratory rate 2023-05-01 15:23:00 17 /min [facility] Body height 2023-05-01 15:23:00 160 cm [facility] Body weight 2023-05-01 15:23:00 135.671 kg [facility] BMI 2023-05-01 15:23:00 52.98 kg/m2 [facility] Oxygen saturation in 2023-05-01 15:23:00 99 /min [facility] Arterial blood by [facility] Pulse oximetry Branch Systolic blood 2023-03-20 20:35:00 133 mm[Hg[facility] blood 2023-03-20 20:35:00 94 mm[Hg] Unive rsity of pressure [facility] Heart rate 2023-03-20 20:35:00 78 /min Universi ty [facility] Oxygen saturation in 2023-03-20 20:35:00 95 /min [facility] Arterial blood by [facility] Pulse oximetry Branch Body temperature 2023-03-20 20:33:00 36.33 [facility] Respiratory rate 2023-03-20 20:33:00 18 /min [facility] Body height 2023-03-20 20:33:00 160 cm Universi ty [facility] Body weight 2023-03-20 20:33:00 134.537 kg Universi ty [facility] BMI 2023-03-20 20:33:00 52.54 kg/m2 Universi ty [facility] height 2022-08-31 08:20:00 63 [in_i] [facility] weight 2022-08-31 08:20:00 278 [lb_av] [facility] temperature 2022-08-31 08:20:00 98.5 [degF] [facility] bmi 2022-08-31 08:20:00 49.24 kg/m2 [facility] height 2022-08-10 10:20:00 63 [in_i] [facility] weight 2022-08-10 10:20:00 283 [lb_av] [facility] temperature 2022-08-10 10:20:00 98.5 [degF] [facility] bmi 2022-08-10 10:20:00 50.13 kg/m2 [facility] height 2022-06-22 10:20:00 63 [in_i] [facility] weight 2022-06-22 10:20:00 276 [lb_av] [facility] bmi 2022-06-22 10:20:00 48.89 kg/m2 [facility] height 2022-04-26 17:00:00 63 [in_i] [facility] weight 2022-04-26 17:00:00 279 [lb_av] [facility] temperature 2022-04-26 17:00:00 97.9 [degF] Common [facility] bmi 2022-04-26 17:00:00 49.42 kg/m2 Common [facility] height 2022-01-05 14:00:00 63 [in_i] Common [facility] weight 2022-01-05 14:00:00 297 [lb_av] Common [facility] bmi 2022-01-05 14:00:00 52.61 kg/m2 [facility] blood pressure 2022-01-05 14:00:00 148 mm[Hg] [facility] blood pressure 2022-01-05 14:00:00 102 mm[Hg] [facility] height 2021-12-28 16:00:00 63 [in_i] [facility] weight 2021-12-28 16:00:00 300.4 [lb_av] [facility] temperature 2021-12-28 16:00:00 97.3 [degF] [facility] bmi 2021-12-28 16:00:00 53.21 kg/m2 [facility] oximetry 2021-12-28 16:00:00 100 % [facility] respiratory rate 2021-12-28 16:00:00 18 /min Comm on [facility] blood pressure 2021-12-28 16:00:00 137 mm[Hg] [facility] blood pressure 2021-12-28 16:00:00 83 mm[Hg] [facility] height 2021-09-28 09:40:00 63 [in_i] [facility] weight 2021-09-28 09:40:00 283 [lb_av] [facility] temperature 2021-09-28 09:40:00 97.9 [degF] [facility] bmi 2021-09-28 09:40:00 50.13 kg/m2 [facility] height 2021-08-02 10:00:00 63 [in_i] [facility] weight 2021-08-02 10:00:00 282.6 [lb_av] [facility] temperature 2021-08-02 10:00:00 97.0 [degF] [facility] bmi 2021-08-02 10:00:00 50.05 kg/m2 [facility] oximetry 2021-08-02 10:00:00 97 % [facility] respiratory rate 2021-08-02 10:00:00 16 /min Comm on [facility] blood pressure 2021-08-02 10:00:00 140 mm[Hg] [facility] systolic [facility] blood pressure 2021-08-02 10:00:00 62 mm[Hg] [facility] diastolic [facility] Systolic blood 2021-07-04 00:50:00 180 mm[Hg] Univer sity of pressure [facility] Diastolic blood 2021-07-04 00:50:00 110 mm[Hg] Unive rsity of pressure [facility] Heart rate 2021-07-04 00:50:00 79 /min [facility] Body temperature 2021-07-04 00:50:00 36.67 [facility] 2021-07-04 00:50:00 18 /min [facility] Body weight 2021-07-04 00:50:00 121.564 kg [facility] Oxygen saturation in 2021-07-04 00:50:00 99 /min [facility] of Arterial blood by [facility] Pulse oximetry Branch Heart Rate 2023-05-27 13:27:31 [facility] Systolic (mm Hg) 2023-05-27 13:25:25 [place] Diastolic (mm Hg) 2023-05-27 13:25:25 Mem orial [place] Temperature Oral (F) 2023-05-27 13:25:01 97.6 F [facility] Height 2023-05-26 15:06:00 5 [ft_i] [facility] Weight 2023-05-26 15:06:00 [facility] BMI Calculated 2023-05-26 15:06:00 [facility] [place] Systolic (mm Hg) 2023-05-24 16:30:00 [place] [facility] [place] Diastolic (mm Hg) 2023-05-24 16:30:00 Mem [facility]rial [place] Height 2023-05-24 15:00:00 5 [ft_i] [facility] Weight 2023-05-24 15:00:00 [facility] [place] BMI Calculated 2023-05-24 15:00:00 [facility] [place] BP Systolic 2022-01-21 14:32:00 BP Diastolic 2022-01-21 14:32:00 Weight Measured 2022-01-21 14:32:00 276.00 pounds Height Measured 2022-01-21 14:32:00 63.00 inches Body Temperature 2022-01-21 14:32:00 Heart Rate 2022-01-21 14:32:00 Respiratory Rate 2022-01-21 14:32:00 Procedures Procedure Date / Time Performing Clinician Source Performed SLEEP STUDY DATA REPORT 2023-04-11 05:01:00 Doctor Unassigned, [facility] Name Medical Branch HB ECG ROUTINE & RHYTHM 2023-03-20 20:38:13 Lico Trevizo [facility] Medical Branch ASSIGNMENT OF BENEFITS 2023-03-20 20:13:23 Doctor Unaaxeligned, [facility] [place] [facility] REFERRAL- REQUEST/RESPONSE 2023-02-02 05:01:00 Doctor Nichole , [facility] [place] [facility] Cardioversion 2023-01-03 05:00:00 [facility] dumont XR CHEST 1 VW 2021-07-04 01:14:37 Raissa Tran [facility] Medical Branch NOTICE OF PRIVACY 2021-07-04 00:45:31 Doctor Unassigned, [facility] PRACTICES [place] [facility] CONSENT/REFUSAL FOR 2021-07-04 00:45:10 Doctor Unassigned, [facility] DIAGNOSIS AND TREATMENT [place] [facility] Repair of small bowel [facility] ermann obstruction Partial hysterectomy [facility] rmann 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[facility] [place] stricture section [facility] Nain n Cholecystectomy [facility] [place] Appendectomy [facility] Plan of Care Planned Activity Planned Date Details Comments Source Goal Plan of Care Note [code = 77749-6] Goal Plan of Care Note [code = 95500-2] Goal Plan of Care Note [code = 45384-0] Goal Plan of Care Note [code = 82749-1] Goal Plan of Care Note [code = 40864-5] Goal Plan of Care Note [code = 73396-7] Goal Plan of Care Note [code = 05234-1] Goal Plan of Care Note [code = 53525-5] Goal Plan of Care Note [code = 48769-9] Goal Plan of Care Note [code = 87079-6] Goal Plan of Care Note [code = 29849-1] Goal Plan of Care Note [code = 72154-2] Goal Plan of Care Note [code = 43903-9] Goal Plan of Care Note [code = 85690-3] Goal Plan of Care Note [code = 09550-3] Goal Plan of Care Note [code = 16824-3] Encounters Start End Encounter Admission Attending Care Care Encounter Source Date/Time Date/Time Type Type Clinicians Facility Department ID 2023-02-24 Outpatient Chung, [facility] [id number] Common 14:59:00 Avnee [id number] [facility] 2023-01-23 Outpatient Chung, [facility] [id number] Common 09:09:00 Avnee [id number] [facility] 2022-12-29 Outpatient Chung, [facility] [id number] Common 15:24:00 Avnee [id number] [facility] 2022-12-21 Outpatient Layla, [facility] [id number] Common 09:47:00 Karol 43685 [facility] 2022-06-01 Outpatient Lopez, Na STLMLC ST[facility]MLC [id number] 2 Common 09:18:00 [facility] 2022-04-13 Outpatient Lopez, Na STLMLC STLMLC [id number] 2 Common 15:29:00 [facility] 2022-04-07 Outpatient Lopez, Na STLMLC STLMLC [id number] 2 Common 16:07:00 [facility] 2022-01-04 Outpatient Lopez, Na STLMLC STLMLC [id number] 2 Common 09:31:01 [facility] 2021-10-20 Outpatient Lopez, Na STLMLC STLMLC [id number] 2 Common 14:09:55 [id number] [facility] 2021-10-20 Outpatient Lopez, Na STLMLC STLMLC [id number] 2 Common 13:47:22 [id number] [facility] 2021-10-20 Outpatient Lopez, Na STLMLC STLMLC [id number] 2 Common 12:29:04 [id number] [facility] 2021-10-20 Outpatient Lopez, Na STLMLC STLMLC [id number] 2 Common 12:03:44 [id number] [facility] 2021-10-20 Outpatient Lopez, Na STLMLC STLMLC [id number] 2 Common 12:03:05 [id number] [facility] 2021-10-20 Outpatient Lopez, Na STLMLC STLMLC [id number] 2 Common 11:43:49 [id number] [facility] 2021-10-20 Outpatient Lopez, Na STLMLC STLMLC [id number] 2 Common 11:35:56 [id number] [facility] 2021-10-20 Outpatient Lopez, Na STLMLC STLMLC [id number] 2 Common 11:18:09 [id number] [facility] 2021-10-20 Outpatient Lopez, Na STLMLC STLMLC [id number] 2 Common 11:04:54 [id number] [facility] 2021-10-20 Outpatient Noemy Lopez [facility] [id number] 2 Common 11:04:25 [id number] [facility] 2023-08-02 2023-08-02 Outpatient LUCY BOOGIE [facility] [id number] Univers 11:00:00 11:00:00 LUCY CUEVAS y [facility] 2023-07-25 2023-07-25 Outpatient GC_GCBZW_Ka PRIV PRIV [id number] [facility] 00:00:00 00:00:00 diyala_S [id number] Medic al 2023-07-24 2023-07-24 Outpatient GC_GCBZW_Ka PRIV PRIV [id number] [facility] 00:00:00 00:00:00 diyala_S [id number] Medic al 2023-05-26 2023-05-27 Observatio [facility] [id number] Memoria 21:42:00 17:29:00 n [place] 01 [facility] 2023-05-26 2023-05-27 Outpatient Rodo, Amir [facility] [id number] 16:42:00 12:29:00 2023-05-24 2023-05-25 Outpatient [facility] [id number] Memoria 12:17:00 04:59:00 [place] 00 l [facility] 2023-05-24 2023-05-24 Outpatient Rodo, Amir [facility] [id number] 07:17:00 23:59:00 00 2023-05-01 2023-05-01 Outpatient LUCY BOOGIE [facility] [id number] Univers 10:30:00 10:54:08 LUCY CUEVAS [facility] 2023-05-01 2023-05-01 [facility] [id number] Univers 10:30:00 10:54:08 Visit [facility] [id number] it y of [place] 4.2.7.2.686 [facility] frank [place]ER[place] [phone] [place] [address] Branch OFFICE BUILDING 2023-05-01 2023-05-01 Telephone Lucy Cuevas [facility] 1.2.840.114 [id number] Univers 00:00:00 00:00:00 Candy [facility] [id number] [id number] [id number] [facility] 084 Branch OFFICE BUILDING 2023-04-20 2023-04-20 Outpatient R MAC LEWIS [facility] [id number] Univers 11:20:00 11:20:00 MAC LEWIS ity [facility] 2023-04-15 2023-04-15 [facility]phone [facility] [id number] Univers 00:00:00 00:00:00 Lico GARCIA [id number] ity of [facility] [id number] [phone] [address] 2023-04-13 2023-04-13 Telephone [facility] [id number] Univers 00:00:00 00:00:00 Lico GARCIA [id number] it[place] [id number] [address] 2023-04-11 2023-04-11 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 10 [place]2.[place] [id number] [place] [address] Branch 2023-04-11 2023-04-11 Outpatient R CHRISTINA OSORIO [facility] [id number] Univers 13:00:00 13:00:00 CHRISTINA OSORIO ity [facility] 2023-04-11 2023-04-11 Orders Doctor TAM 1.2.840.114 [id number] Univers 00:00:00 00:00:00 Only Unassigned, VITALY 350.1.13.10 ity of [facility] 4.2.7.2.686 Herman as [phone] [address] 2023-03-29 2023-03-29 Telephone [facility] [id number] Univers 00:00:00 00:00:00 Lico GARCIA [id number] ity of [facility] [place] [id number] Ar dichi NAL [address] [place] [address] 2023-03-29 2023-03-29 [facility] [id number] [id number] Univers 00:00:00 00:00:00 Augustonoemi SRINATHKATIANA 350.1.13.10 ity of [facility] [id number] [phone] Ar dic[address] 2023-03-20 2023-03-20 Outpatient R [facility] [id number] Univers 15:20:00 16:49:15 LICO ity o f [facility] 2023-03-20 2023-03-20 Office [facility] 1.2.840.114 [id number] Univers 15:20:00 16:49:15 Visit Lico GARCIA 350.1.13.10 it[place] of [place] [phone] Ar dichi NAL [address] [place] [address] 2023-03-20 2023-03-20 Orders Doctor ANEL 1.2.840.114 [id number] Univers 00:00:00 00:00:00 Only Unassigned, VITALY 350.1.13.10 ity of [facility] 4.2.7.2.686 Herman as [phone] [address] 2023-02-02 2023-02-02 Orders Doctor ANEL 1.2.840.114 [id number] Univers 00:00:00 00:00:00 Only Unassigned, VITALY 350.1.13.10 ity of [facility] 4.2.7.2.686 Herman as [id number] [address] 2022-12-23 2022-12-23 (TEL) STLMLC STLMLC [id number] Co mmon 00:00:00 00:00:00 [facility] 2022-10-27 2022-10-27 (TEL) STLMLC STLMLC [id number] Co mmon 00:00:00 00:00:00 [facility] 2022-08-31 2022-08-31 OFFICE STLMLC STLMLC [id number] Co mmon 00:00:00 00:00:00 VISIT EST Spir it PT LEVEL 3 - [facility] 2022-08-30 2022-08-30 (TEL) STLMLC STLMLC [id number] Co mmon 00:00:00 00:00:00 [facility] 2022-08-29 2022-08-29 Outpatient SFA SFA [id number] Stef 15:26:21 15:26:21 1205 F Mohinder 2022-08-29 2022-08-29 Outpatient [id number] 00:00:00 00:00:00 Visit [id number] 2022-08-10 2022-08-10 (TEL) STLMLC STLMLC [id number] Co mmon 00:00:00 00:00:00 [facility] 2022-08-10 2022-08-10 (TEL) STLMLC STLMLC [id number] Co mmon 00:00:00 00:00:00 [facility] 2022-08-10 2022-08-10 (TEL) STLMLC STLMLC [id number] Co mmon 00:00:00 00:00:00 [facility] 2022-08-10 2022-08-10 OFFICE STLMLC STLMLC [id number] Co mmon 00:00:00 00:00:00 VISIT EST Spir it PT LEVEL 3 - [facility] 2022-07-20 2022-07-20 (TEL) STLMLC STLMLC [id number] Co mmon 00:00:00 00:00:00 [facility] 2022-06-29 2022-06-29 (TEL) STLMLC STLMLC [id number] Co mmon 00:00:00 00:00:00 [facility] 2022-06-22 2022-06-22 OFFICE STLMLC STLMLC [id number] Co mmon 00:00:00 00:00:00 VISIT EST Spir it PT LEVEL 3 [facility] 2022-06-20 2022-06-20 (TEL) STLMLC STLMLC [id number] Co mmon 00:00:00 00:00:00 [facility] 2022-06-03 2022-06-03 OFFICE STLMLC STLMLC [id number] Co mmon 00:00:00 00:00:00 VISIT EST Spir it PT LEVEL 3 [facility] 2022-05-16 2022-05-16 (TEL) STLMLC STLMLC [id number] Co mmon 00:00:00 00:00:00 [facility] 2022-05-16 2022-05-16 OFFICE STLMLC STLMLC [id number] Co mmon 00:00:00 00:00:00 VISIT EST Spir it PT LEVEL 3 [facility] 2022-04-27 2022-04-27 (TEL) STLMLC STLMLC [id number] Co mmon 00:00:00 00:00:00 [facility] 2022-04-26 2022-04-26 (TEL) STLMLC STLMLC [id number] Co mmon 00:00:00 00:00:00 [facility] 2022-04-26 2022-04-26 OFFICE STLMLC STLMLC [id number] Co mmon 00:00:00 00:00:00 VISIT EST Spir it PT LEVEL 3 [facility] 2022-04-20 2022-04-20 Outpatient [id number] 00:00:00 00:00:00 Visit [id number] 2022-03-30 2022-03-30 OFFICE STLMLC STLMLC [id number] Co mmon 00:00:00 00:00:00 VISIT [facility] PT - CHI LEVEL 4 [facility] 2022-02-14 2022-02-14 (TEL) STLMLC STLMLC [id number] Co mmon 00:00:00 00:00:00 [facility] 2022-01-27 2022-01-27 OFFICE STLMLC STLMLC [id number] Co mmon 00:00:00 00:00:00 VISIT EST Spir it PT LEVEL 3 - [facility] 2022-01-26 2022-01-26 (TEL) STLMLC STLMLC [id number] Co mmon 00:00:00 00:00:00 [facility] 2022-01-18 2022-01-18 (TEL) STLMLC STLMLC [id number] Co mmon 00:00:00 00:00:00 [facility] 2022-01-05 2022-01-05 OFFICE STLMLC STLMLC [id number] Co mmon 00:00:00 00:00:00 VISIT NEW Spir it PT LEVEL 3 - [facility] 2021-12-28 2021-12-28 OFFICE STLMLC STLMLC [id number] Co mmon 00:00:00 00:00:00 VISIT [facility] PT - CHI LEVEL 4 [facility] 2021-11-15 2021-11-15 (TEL) STLMLC STLMLC [id number] Co mmon 00:00:00 00:00:00 [facility] 2021-11-11 2021-11-11 (TEL) STLMLC STLMLC [id number] Co mmon 00:00:00 00:00:00 [facility] 2021-09-28 2021-09-28 OFFICE STLMLC STLMLC [id number] Co mmon 00:00:00 00:00:00 VISIT [facility] PT - CHI LEVEL 4 [facility] 2021-08-27 2021-08-27 (TEL) STLMLC STLMLC [id number] Co mmon 00:00:00 00:00:00 [facility] 2021-08-04 2021-08-04 (TEL) STLMLC STLMLC [id number] Co mmon 00:00:00 00:00:00 [facility] 2021-08-02 2021-08-02 OFFICE STLMLC STLMLC [id number] Co mmon 00:00:00 00:00:00 VISIT [facility] LEVEL 4 [facility] 2021-07-22 2021-07-22 Outpatient Vanesa Cheung HCAPM RADI LA0 [id number] [facility] 08:00:00 08:00:00 [facility] 2021-07-03 2021-07-03 Emergency Marc, [facility] 1.2.840.114 [id number] Univers 19:47:00 21:16:00 [facility] [id number] [place] [address] Branch 2021-07-03 2021-07-03 Emergency X [facility] ERT [id number] Univers 19:47:00 19:47:00 ity [facility] 2021-06-07 2021-06-07 Outpatient STLMLC STLMLC [id number] Common 00:00:00 00:00:00 [facility] 2021-05-06 2021-05-06 Outpatient STLMLC STLMLC [id number] Common 00:00:00 00:00:00 [facility] 2021-04-28 2021-04-28 Outpatient STLMLC STLMLC [id number] Common 00:00:00 00:00:00 [facility] 2021-04-27 2021-04-27 Outpatient STLMLC STLMLC [id number] Common 00:00:00 00:00:00 [facility] 2021-03-15 2021-03-15 Outpatient [facility]LML[facility] STLMLC [id number] Common 00:00:00 00:00:00 [facility] 2021-01-04 2021-01-04 Outpatient [facility]LMLC STLMLC [id number] Common 00:00:00 00:00:00 [facility] 2020-11-03 2020-11-03 Outpatient STLMLC STLMLC [id number] Common 00:00:00 00:00:00 [facility] 2020-08-03 2020-08-03 Outpatient [facility]LMLC STLMLC [id number] Common 00:00:00 00:00:00 [facility] 2020-05-04 2020-05-04 [facility] [id number] Common 10:10:00 10:10:00 [address] [facility] 2020-05-01 2020-05-01 [facility] [id number] Common 09:40:00 09:40:00 [address] [address] [facility] 2020-02-19 2020-02-19 [facility] [id number] Common 16:06:00 16:06:[address] [facility] 2019-12-12 2019-12-12 [facility] [id number] Common 15:41:00 15:41:00 [address] [facility] [facility] 2019-09-16 2019-09-16 [id number] Common 14:40:00 14:40:[address] [facility] 2019-08-15 2019-08-15 [facility] [id number] Common 09:27:00 09:27:00 [address] [facility] 2019-08-12 2019-08-12 [facility] [id number] Common 09:00:00 09:00:00 [address] [facility] 2019-07-31 2019-07-31 [facility] [id number] Common 11:46:00 11:46:00 [address] [facility] 2019-07-29 2019-07-29 [facility] [id number] Common 09:40:00 09:40:00 [address] [facility] 2019-06-02 2019-06-02 [facility] [id number] Common 09:38:00 09:38:00 t [facility] 2019-05-31 2019-05-31 [facility] [id number] Common 11:30:00 11:30:00 t [facility] 2018-01-19 2018-01-19 [facility] 13 [id number] Common 08:11:00 08:11:00 [address] [facility] 2018-01-18 2018-01-18 [facility] 13 [id number] Common 10:15:00 10:15:00 [address] [facility] 2017-12-26 2017-12-26 [facility] [id number] Common 09:30:00 09:30:00 [address] [facility] 2008-10-21 2008-10-21 Outpatient [facility] [id number] Univers 00:00:00 11:14:00 1 [facility] Results Test Description Test Time Test Comments Results Result Comments Source CHEMISTRY 2023-05-27 11:57:00 Test Item Value Reference Range Interpretation Comme nts Glucose Lvl (test code = Glucose Lvl) 113 70-99 [facility]LtylbbdNKOWPSPTN6578-25-41 11:57:00 Test Item Value Reference Range Interpretation Comments BUN (test code = BUN) 8 7-22 [facility] CenterSnufonyKSPAYILFD5393-79-35 11:57:00 Test Item Value Reference Range Interpretation Comments Creatinine Lvl (test code = Creatinine 0.80 0.50-1.40 Lvl) [facility] CenterYbvhxorFBMAQSDCW2621-02-18 11:57:00 Test Item Value Reference Range Interpretation Comments Sodium Lvl (test code = Sodium Lvl) 141 135-145 [facility] CenterZjjxfxkGYEJCGNVT7421-04-59 11:57:00 Test Item Value Reference Range Interpretation Comments Potassium Lvl (test code = Potassium 4.1 3.5-5.1 Lvl) [facility]IEOBCMB5525-43-57 11:57:00 Test Item Value Reference Range Interpretation Comments Chloride Lvl (test code = Chloride Lvl) 110 95-109 [place] 897343-09-02 11:57:00 Test Item Value Reference Range Interpretation Comments CO2 (test code = CO2) 26 24-32 [place] 897343-09-02 11:57:00 Test Item Value Reference Range Interpretation Comments Calcium Lvl (test code = Calcium Lvl) 8.9 8.5-10.5 [place] [address]-09-02 11:57:00 Test Item Value Reference Range Interpretation Comments AGAP (test code = AGAP) 9.1 10.0-20.0 [place] [address]-09-02 11:57:00 Test Item Value Reference Range Interpretation Comments eGFR (test code = eGFR) 91 [facility] HospitalMcwkmfxJYLSMSWSF8405-08-39 11:57:00 Test Item Value Reference Range Interpretation Comments Magnesium Lvl (test code = Magnesium 2.6 1.8-2.4 Lvl) [facility] CenterFmvopjrYWOXJZTKDL3696-76-92 11:57:00 Test Item Value Reference Range Interpretation Comments WBC X 10x3 (test code = WBC X 10x3) 9.8 3.7-10.4 [place] [address]-09-02 11:57:00 Test Item Value Reference Range Interpretation Comments RBC X 10x6 (test code = RBC X 10x6) 4.37 4.20-5.40 [place] 712313-09-02 11:57:00 Test Item Value Reference Range Interpretation Comments Hgb (test code = Hgb) 11.3 12.0-16.0 [place] [address]-09-02 11:57:00 Test Item Value Reference Range Interpretation Comments Hct (test code = Hct) 35.0 36.0-48.0 [facility] CenterJcwvhwlHPELKEKRIA1700-54-84 11:57:00 Test Item Value Reference Range Interpretation Comments MCV (test code = MCV) 80.0 80.0-98.0 [place] [address]-09-02 11:57:00 Test Item Value Reference Range Interpretation Comments MCH (test code = MCH) 25.8 pg 27.0-31.0 [facility] CenterBcbmrvxGJQVNWJXNL0319-69-51 11:57:00 Test Item Value Reference Range Interpretation Comments MCHC (test code = MCHC) 32.2 32.0-36.0 [facility] CenterExpesagUEDTBIIPDL5669-76-92 11:57:00 Test Item Value Reference Range Interpretation Comments RDW (test code = RDW) 15.8 11.5-14.5 [facility] CenterGlhzqpuFIONVHHOVA4448-56-80 11:57:00 Test Item Value Reference Range Interpretation Comments Platelet (test code = Platelet) 378 133-450 [facility] CenterWjuchohVLFJRNBXNG8783-28-57 11:57:00 Test Item Value Reference Range Interpretation Comments MPV (test code = MPV) 8.1 7.4-10.4 [facility] CenterElovmdvAZFFBGZSAJ9522-65-99 11:57:00 Test Item Value Reference Range Interpretation Comments Segs (test code = Segs) 70.7 45.0-75.0 [facility] CenterPhwywddPDYWRLRLIT8541-37-29 11:57:00 Test Item Value Reference Range Interpretation Comments Lymphocytes (test code = Lymphocytes) 22.0 20.0-40.0 [facility] CenterLedcyklOMECZLTANH3529-87-75 11:57:00 Test Item Value Reference Range Interpretation Comments Monocytes (test code = Monocytes) 6.3 2.0-12.0 [facility] CenterUgztedsAHZGEPZNJU1927-37-65 11:57:00 Test Item Value Reference Range Interpretation Comments Basophils (test code = Basophils) 1.0 <=1.0 [place] 712313-09-02 11:57:00 Test Item Value Reference Range Interpretation Comments Neutrophils # (test code = Neutrophils 7.0 1.5-8.1 #) [facility] CenterXzvfcnaMHXHDAYPGP4879-84-86 11:57:00 Test Item Value Reference Range Interpretation Comments Lymphocytes # (test code = Lymphocytes 2.2 1.0-5.5 #) [facility] CenterIwrirxhCROIIAMUBI6538-50-79 11:57:00 Test Item Value Reference Range Interpretation Comments Monocytes # (test code = Monocytes #) 0.6 <=0.8 [place] [address]-09-02 11:57:00 Test Item Value Reference Range Interpretation Comments Basophils # (test code = Basophils #) 0.1 <=0.2 [place] [address]-09-01 21:30:00 Test Item Value Reference Range Interpretation Comments POC Activated Clotting Time (test code 232 s = POC Activated Clotting Time) [facility] BANK ZBRWLRH7160-58-43 17:00:00 Test Item Value Reference Range Interpretation Comments RBC product (test code Product available = RBC product) (05/26/23 12:00 PM) [facility] HospitalDghskamPMRGBXXXU1448-30-17 15:07:00 Test Item Value Reference Range Interpretation Comments U Preg (test code = U Negative (05/26/23 10:07 Preg) AM) [facility] HospitalDltcvdiXDVHREVFG1931-59-00 14:56:00 Test Item Value Reference Range Interpretation Comments POC Sodium (test code = POC Sodium) 142 135-145 [facility] HospitalYziezbeKRQSVRGXD2736-84-05 14:56:00 Test Item Value Reference Range Interpretation Comments POC Potassium (test code = POC 3.9 3.5-5.1 Potassium) [facility] HospitalYneclckXWFYBDQDM4764-69-36 14:56:00 Test Item Value Reference Range Interpretation Comments POC Chloride (test code = POC Chloride) 105 95-109 [facility] HospitalElawrbhVINYUKAPX1430-52-57 14:56:00 Test Item Value Reference Range Interpretation Comments POC Carbon Dioxide (test code = POC 25 24-32 Carbon Dioxide) [facility] HospitalGlwmjueDVYAKCBNX0279-04-69 14:56:00 Test Item Value Reference Range Interpretation Comments POC BUN (test code = POC BUN) 7 7-22 [facility] HospitalZqwsqigLKRYWVNPL4048-79-95 14:56:00 Test Item Value Reference Range Interpretation Comments POC Creatinine (test code = POC 0.7 0.5-1.4 Creatinine) [facility] HospitalZucqejsEUPJQPRLE6948-60-63 14:56:00 Test Item Value Reference Range Interpretation Comments POC Glucose (test code = POC Glucose) 89 70-99 [facility] HospitalUidbzefMDLQXKUDA8766-42-82 14:56:00 Test Item Value Reference Range Interpretation Comments POC Ion Ca (test code = POC Ion Ca) 1.22 1.05-1.25 [facility] HospitalExememfKIZJNMSJA4579-38-12 14:56:00 Test Item Value Reference Range Interpretation Comments POC Hemoglobin (test code = POC 13.3 12.0-16.0 Hemoglobin) [facility] HospitalIkikqbdPDUBZEFSQ2100-83-42 14:56:00 Test Item Value Reference Range Interpretation Comments POC Hematocrit (test code = POC 39.0 36.0-48.0 Hematocrit) [facility] HospitalEaycathBTPKZSWYW0255-36-42 14:56:00 Test Item Value Reference Range Interpretation Comments POC AGAP (test code = POC AGAP) 16.0 10.0-20.0 [facility] HospitalTeidlijXWBEAVAGD1454-58-05 14:56:00 Test Item Value Reference Range Interpretation Comments eGFR (test code = eGFR) 107 [facility]BioVascularPal[facility] SLOEBPM5079-56-55 14:33:00 Test Item Value Reference Range Interpretation Comments ABO/Rh (test code = ABO/Rh) A POS [facility] CenterBioVascularPalring[facility] KMDBBRF2733-22-96 14:33:00 Test Item Value Reference Range Interpretation Comments Antibody Scrn (test Negative (05/24/23 9:33 code = Antibody Scrn) AM) [facility] HospitalUodwynfFASJEAWAK5858-08-65 14:33:00 Test Item Value Reference Range Interpretation Comments Total Protein (test code = Total 8.5 6.4-8.4 Protein) [facility] HospitalTkmiijrZCKVOESBR9466-92-04 14:33:00 Test Item Value Reference Range Interpretation Comments Albumin Lvl (test code = Albumin Lvl) 3.2 3.5-5.0 [facility] CenterAxgcuszFUHDDSLYF4378-63-04 14:33:00 Test Item Value Reference Range Interpretation Comments ALT (test code = ALT) 28 <=65 [facility] HospitalMvkaqccGTHYDQTDM9036-67-48 14:33:00 Test Item Value Reference Range Interpretation Comments AST (test code = AST) 19 <=37 [facility] CenterIgggkpuOQGVMBPKJ7101-57-96 14:33:00 Test Item Value Reference Range Interpretation Comments Alk Phos (test code = Alk Phos) 51 39-136 [facility] HospitalLpvqmqiSVWCUZQSK6472-67-87 14:33:00 Test Item Value Reference Range Interpretation Comments Bili Total (test code = Bili Total) 0.5 0.2-1.3 [facility] HospitalUpzelkjUOLJJTRSW0888-41-10 14:33:00 Test Item Value Reference Range Interpretation Comments Bili Direct (test code = Bili Direct) 0.1 <=0.3 [facility] HospitalGbifqajHICALSIKY6845-27-91 14:33:00 Test Item Value Reference Range Interpretation Comments Bili Indirect (test code = Bili 0.4 <=1.0 Indirect) [facility] ClareHnqrfasDOLZXVLMX3964-07-21 14:33:00 Test Item Value Reference Range Interpretation Comments Globulin (test code = Globulin) 5.3 2.7-4.2 [facility] CenterFqbcdazZOHXBYYXA4548-43-66 14:33:00 Test Item Value Reference Range Interpretation Comments A/G Ratio (test code = A/G Ratio) 0.6 1 0.7-1.6 [facility] CenterSdeyefsCOEOXVNKQX6747-63-80 13:55:00 Test Item Value Reference Range Interpretation Comments PT (test code = PT) 13.5 s 12.0-14.7 [facility] CenterAlowbebPUIPKPMYDI0902-85-20 13:55:00 Test Item Value Reference Range Interpretation Comments INR (test code = INR) 1.03 1 0.85-1.17 [facility]NyaqsbeIWUBMYIMNY5321-27-97 13:55:00 Test Item Value Reference Range Interpretation Comments PTT (test code = PTT) 26.1 s 22.9-35.8 [facility] RegionMeengguPYVKYPUVYN4481-98-39 12:46:00 Test Item Value Reference Range Interpretation Comments Eosinophils (test code = Eosinophils) 1.1 <=4.0 [facility] RegionBojindhQBUVEVVBWC2071-35-94 12:46:00 Test Item Value Reference Range Interpretation Comments Eosinophils # (test code = Eosinophils 0.1 <=0.5 #) [facility] (COVID-19), RT-PCR/JPF8840-45-17 07:26:55 Test Item Value Reference Interpretation Comments Range SARS-CoV-2 NEGATIVE SEE NOTE SARS-CoV-2 RNA NOT INTERPRETATION DETECTEDNegat papo (test code = 24845) results do not preclude SARS-C oV-2 infection [...] (test code = [place]OP[place]: [place] [address]) Ro Charito [place] l-Time RT-PCR. The exp ected result or [...] provided by met hod given in report:https:// www.[employer].com/clinic ians/cl ient-communicat ions/ Alternatively, see downloadable PD F fact sheet at:https://www. [email or web address]/COVID-19-R T-PCR UNLESS OTHERWIS E INDICATED, ALL TESTING PERFORMED [facility], [address] DIRECTOR: PRUDENCE SOLIS M.D. CLIA NUMBER [id number] CAP ACCREDITATION N O. [id number] SARS-CoV-2 (COVID-19) by RT-PCR (HIGH RISK)2021-12-10 00:00:00 Test Item Value Reference Range Interpretation Comments SARS-CoV-2 INTERPRETATION NEGATIVE (test code = 22208) SOURCE (test code = 73811) NASOPHARYNGEAL SARS-CoV-2 (COVID-19) by RT-PCR (HIGH RISK)2021-12-10 00:00:00 Test Item Value Reference Range Interpretation Comments SARS-CoV-2 INTERPRETATION NEGATIVE (test code = 73394) SOURCE (test code = 91359) NASOPHARYNGEAL SARS-CoV-2 (COVID-19) by RT-PCR (HIGH RISK)2021-12-10 00:00:00 Test Item Value Reference Range Interpretation Comments SARS-CoV-2 INTERPRETATION NEGATIVE (test code = 04789) SOURCE (test code = 23053) NASOPHARYNGEAL Lipid Panel w/ Chol/HDL Dvrgn7867-66-73 00:00:00 Test Item Value Reference Range Interpretation Comments Cholesterol, Total (test code = 3-3) 186 100-199 Triglycerides (test code = 2571-8) 86 0-149 HDL Cholesterol (test code = 5-9) 59 >39 T. Chol/HDL Ratio (test code = 9830-1) 3.2 0.0-4.4 JOSÉ w/Reflex if Ctymdrkw7772-83-12 00:00:00 Test Item Value Reference Range Interpretation Comments JOSÉ Direct (test code = 8061-4) Negative Negative Comp. Metabolic Panel (14) ([facility])2021-08-02 00:00:00 Test Item Value Reference Range Interpretation Comments Glucose (test code = 2345-7) 75 65-99 BUN (test code = 3094-0) 10 6-24 Creatinine (test code = 2160-0) 0.74 0.57-1.00 eGFR If NonAfricn Am (test code = 97 >59 38708-4) eGFR If Africn Am (test code = 92862-8) 112 >59 BUN/Creatinine Ratio (test code = 14 - 3097-3) Sodium (test code = 2951-2) 141 134-144 Potassium (test code = 2823-3) 3.7 3.5-5.2 Chloride (test code = 2075-0) 102 96-106 Carbon Dioxide, Total (test code = -2028-05) Calcium (test code = 99649-1) 9.6 8.7-10.2 Protein, Total (test code = 2885-2) 8.8 6.0-8.5 Albumin (test code = 1751-7) 4.6 3.8-4.8 Globulin, Total (test code = 14971-2) 4.2 1.5-4.5 A/G Ratio (test code = 1759-0) 1.1 1.2-2.2 Bilirubin, Total (test code = 1974-) 0.6 0.0-1.2 Alkaline Phosphatase (test code = 76 44-121 6768-6) AST (SGOT) (test code = 1920-8) 20 0-40 ALT (SGPT) (test code = 1742-6) 19 0-32 CBC With Differential/Ytyrrpgy9705-25-01 00:00:00 Test Item Value Reference Range Interpretation [...] Granulocytes (test code = 0 Not Estab. 02864-9) Immature Grans (Abs) (test code = 0.0 0.0-0.1 44660-7) NRBC (test code = 64206-3) Hematology Comments: (test code = 82555-9) Rheumatoid Arthritis Qgvnig6966-59-72 00:00:00 Test Item Value Reference Range Interpretation Comments Rheumatoid Factor (RF) (test code = <10.0 0.0-13.9 91867-0) C-Reactive Protein, Quant (CRP)2021-08-02 00:00:00 Test Item Value Reference Range Interpretation Comments C-Reactive Protein, Quant (test code = 13 0-10 5) Vitamin D, 98-Efaydei0689-14-08 00:00:00 Test Item Value Reference Range Interpretation Comments Vitamin D, 25-Hydroxy (test code = 24.0 30.0-100.0 1988-) - CT ABD PELVIS W/EMDQ2146-73-15 09:50:00 [facility] : 1975 Sex: F Name: SHE FITZGERALD [facility] : 1975 Age/S: 46 / F [address] Unit #: [id number] Loc: [place] [address] Phys: Vanesa Nunez MD Acct: [id number] Dis Date: Status: REG CLI PHONE #: [phone] Exam Date: 07/22/2021917 FAX #: Reason: CROHNS DISEASE, UNSPECIFIED, WITHOUT COMPLICATI EXAMS: CPT: [id number] CT ABD PELVIS W/CONT 21258 HISTORY: CROHN'S DISEASE, UNSPECIFIED, WITHOUT COMPLICATIONS TECHNIQUE: [...] unremarkable without evidence of bowel thickening or obstruction.There is evidence of right colonic surgery with [...] PAGE 1 Signed Report (CONTINUED) Name: SHE FIT[place]GERALDland : 1975 Age/S: 46 / F [address] [facility] [place] Unit #: [id number] Loc: [place] [address] Phys: Vanesa Nunez MD Acct: [id number] Dis Date: Status: REG CLI PHONE #: [phone] Exam Date: 07/22/2021 0918 FAX #: Reason: CROHNS DISEASE, UNSPECIFIED, WITHOUT COMPLICATI EXAMS: CPT: [id number] CT ABD PELVIS W/CONT 30227 (Continued) IMPRESSION: 1. There is mild diffuse thickening of the transverse colon and splenic flexure as well as the distal descending colon and upper sigmoid. There is no pericolonic inflammation. Findings may represent infectious or inflammatorycolitis. 2. Status post cholecystectomy. 3. Evidence of right colonic surgery. at 0950 Reported and signed by: Sudhir Calix M.D. CC: Vanesa Nunze MD; Noemy Ly Lopez Technologist:Mukul Ryan, RT(R) CTDI: DLP: Trnscb Date/Time: 07/22/2021 (0206) [email or web address] Orig Print D/T: S: 07/22/2021 (3175) PAGE 2 Signed EofjrqNROZD-XUG8026-84-28 08:27:00 Test Item Value Reference Range Interpretation Comments ISTAT-BUN (test code = BUNP) 8 mg/dL 8-26 N BEDSIDE LJILPTGOLI1600-40-01 08:27:00 Test Item Value Reference Range Interpretation Comments BEDSIDE CREATININE (test code = 0.6 mg/dL 0.6-1.3 N CREATBED) SARS-COV-2 (COVID19), NAAT [ADDED]2020-10-02 00:00:00 Test Item Value Reference Range Interpretation Comments SARS-CoV-2 INTERPRETATION (test NEGATIVE code = 91896) SOURCE (test code = 88627) NOT SPECIFIED SARS-COV-2 (COVID19), NAAT [ADDED]2020-10-02 00:00:00 Test Item Value Reference Range Interpretation Comments SARS-CoV-2 INTERPRETATION (test NEGATIVE code = 85921) SOURCE (test code = 77013) NOT SPECIFIED SARS-COV-2 (COVID19), NAAT [ADDED]2020-10-02 00:00:00 Test Item Value Reference Range Interpretation Comments SARS-CoV-2 INTERPRETATION (test NEGATIVE code = 17220) SOURCE (test code = 10333) NOT SPECIFIED SARS-CoV-2 (COVID-19) by RT-PCR (HIGH RISK)2020-04-17 00:00:00 Test Item Value Reference Range Interpretation Comments SARS-CoV-2 INTERPRETATION (test NEGATIVE code = 21007) SOURCE (test code = 89199) NOT SPECIFIED SARS-CoV-2 (COVID-19) by RT-PCR (HIGH RISK)2020-04-17 00:00:00 Test Item Value Reference Range Interpretation Comments SARS-CoV-2 INTERPRETATION (test NEGATIVE code = 41104) SOURCE (test code = 79761) NOT SPECIFIED SARS-CoV-2 (COVID-19) by RT-PCR (HIGH RISK)2020-04-17 00:00:00 Test Item Value Reference Range Interpretation Comments SARS-CoV-2 INTERPRETATION (test NEGATIVE code = 65424) SOURCE (test code = 41560) NOT SPECIFIED POC, COVID 19 Antigen + Flu by SofiaPOC, COVID 19 Antigen + Flu by Jennifer
[2023-08-05] MEDS ORDERED: MORPHINE 4 MG/ML SYR ONE (10:51)
[2023-08-05] MEDS ORDERED: KETOROLAC 30 MG/ML INJ ONE (10:52)
[2023-08-05] MEDS ORDERED: NA CHLORIDE 0.9% 1,000 ML ONE (10:52)
[2023-08-05] MEDS ORDERED: ONDANSETRON 4 MG/2 ML VIAL ONE (10:52)
[2023-08-05 11:12] LABS: Absolute Lymphocytes (CBC) 2.8 K/uL (0.7-4.9); Hematocrit 36.5 % (36.0-45.0); Lymphocytes % 46.6 % (15.3-44.8); MCV 79.8 fL (80-100); MPV 8.1 fL (7.6-11.3); Platelets 330 thou/uL (152-406); RBC Red Blood Cell Count 4.57 M/uL (3.86-4.86)
[2023-08-05 11:31] LABS: Albumin 3.2 g/dL (3.4-5.0); Bilirubin Total 0.6 mg/dL (0.2-1.0); Protein, Total 8.6 g/dL (6.4-8.2)
--- NOTE | 2023-08-05 11:59 | ER ---
Nurse's Notes [facility] Name: Dori Guardado Age: 48 yrs Sex: Female : 1975 Arrival Date: 08/05/2023 Time: 09:54 Bed 19 Private MD: Diagnosis: Abdominal pain, Generalized;Diarrhea, unspecified Presentation: 08/05 10:06 Chief complaint: Patient states: "I've been having lower abdominal pain, nausea and rs5 vomiting that started last . I have Crohn's disease and I wonder if I am having another flare up of if it's something else.". Coronavirus screen: At this time, the client does not indicate any symptoms associated with coronavirus-19. Ebola Screen: No symptoms or risks identified at this time. Initial Sepsis Screen: Does the patient meet any 2 criteria? No. Patient's initial sepsis screen is negative. Does the patient have a suspected source of infection? No. Patient's initial sepsis screen is negative. Risk Assessment: Do you want to hurt yourself or someone else? Patient reports no desire to harm self or others. Onset of symptoms was August 05, 2023 at 07:00. 10:06 Method Of Arrival: Wheelchair rs5 10:06 Acuity: KASH 3 rs5 Historical: - Allergies: 10:08 No Known Allergies; rs5 - PMHx: 10:08 Atrial Fib; bowel obstruction; Crohn's; Hypertension; rs5 - PSHx: 10:08 Appendectomy; section; Cholecystectomy; partial hysterectomy; rs5 - Immunization history:: Adult Immunizations unknown. - Social history:: Smoking status: unknown. Screenin:[address] [facility] ED Fall Risk Assessment (Adult) History of falling in the last 3 months, rs5 including since admission No falls in past 3 months (0 pts) Confusion or Disorientation No (0 pts) Intoxicated or Sedated No (0 pts) Impaired Gait No (0 pts) Mobility Assist Device Used No (0 pt) Altered Elimination No (0 pt) Score/Fall Risk Level 0 - 2 = Low Risk Oriented to surroundings, Maintained a safe environment. Abuse screen: Denies threats or abuse. Nutritional screening: No deficits noted. Tuberculosis screening: No symptoms or risk factors identified. Assessment: 10:05 General: Appears in no apparent distress. uncomfortable, Behavior is calm, cooperative. rs5 Pain: Complains of pain in lower abdomen bilat Pain does not radiate. Pain currently is 8 out of 10 on a pain scale. Quality of pain is described as aching, Pain began 2-3 days ago. Is continuous. Neuro: Level of Consciousness is awake, alert, obeys commands, Oriented to person, place, time, situation. Cardiovascular: Heart tones S1 S2 present Capillary refill < 3 seconds Rhythm is regular. Respiratory: Airway is patent Respiratory effort is even, unlabored, Respiratory pattern is regular, symmetrical, Breath sounds are clear bilaterally. GI: Bowel sounds present X 4 quads. Abd is soft and non tender X 4 quads. Reports bloating, diarrhea, nausea, vomiting. : No signs and/or symptoms were reported regarding the genitourinary system. EENT: No signs and/or symptoms were reported regarding the EENT system. Derm: Skin is intact, Skin is dry, Skin is normal, Skin temperature is warm. 11:05 Reassessment: To bedside for med adm. Pt states "I don't like taking a lot of pain rs5 medication, I don't want to take the Toradol". 11:31 GI: Patient currently denies nausea, vomiting. rs5 11:31 Reassessment: Patient and/or family updated on plan of care and expected duration. Pain rs5 level reassessed. Patient is alert, oriented x 3, equal unlabored respirations, skin warm/dry/pink. Pain: Denies pain. 11:56 Reassessment: Provider at bedside. rs5 Vital Signs: 10:06 BP 144 / 87; Pulse 70; Resp 17; Temp 97.8; Pulse Ox 98% on R/A; rs5 11:08 BP 140 / 85; Pulse 67; Resp 18; Temp 98(O); Pulse Ox 99% on R/A; rs5 ED Course: 09:57 Patient arrived in ED. im 09:58 Edilson Terry MD is Attending Physician. ec2 10:05 Antonio Molina, LEONA is Primary Nurse. rs5 10:05 Patient has correct armband on for positive identification. Placed in gown. Bed in low rs5 position. Side rails up X2. 10:08 Triage completed. rs5 10:10 Missed attempt(s): 22 gauge in left antecubital area. rs5 11:05 CBC with Diff Sent. mb9 11:05 CMP Sent. mb9 11:05 Lipase Sent. mb9 11:06 Inserted saline lock: 22 gauge in left antecubital area, using aseptic technique. mb9 12:15 No provider procedures requiring assistance completed. rs5 12:15 IV discontinued, intact, bleeding controlled, No redness/swelling at site. Pressure rs5 dressing applied. Administered Medications: 11:05 Drug: morphine IVP or IV 4 mg IVP once over 4 mins Route: IVP; Infused Over: 4 mins; rs5 Site: left antecubital; 11:23 Follow up: Response: No adverse reaction; Pain is decreased rs5 11:05 Drug: Ondansetron IVP 4 mg IVP once; over 2 minutes Route: IVP; Site: left antecubital; rs5 11:24 Follow up: Response: No adverse reaction; Nausea is decreased rs5 11:05 Drug: NS 0.9% IV 1000 ml IV at 1 bolus Per protocol; 1000 mL bolus Route: IV; Rate: 1 rs5 bolus; Site: left antecubital; 11:24 Follow up: Response: No adverse reaction rs5 11:39 Not Given (Patient Refused): TORadol - [id number] mg IVP once rs5 Medication: 10:05 VIS not applicable for this client. rs5 Outcome: 11:58 Discharge ordered by . ec2 12:15 Discharged to home ambulatory, rs5 12:15 Condition: stable 12:15 Discharge instructions given to patient, family, friend, Instructed on discharge instructions, follow up and referral plans. Demonstrated understanding of instructions, follow-up care, 12:16 Patient left the ED. rs5 Signatures: Maira Dawson RN RN mb9 Antonio Molina RN RN rs5 Lakia Jin Edwin, MD MD ec2 Corrections: (The following items were deleted from the chart) 10:08 10:08 PSHx: Ablation (partial hysterectomy); rs5 rs5 11:38 10:30 Ondansetron IVP 4 mg IVP in left antecubital rs5 rs5
--- NOTE | 2023-08-05 11:59 | EDPHYS ---
Physician Documentation [facility] Name: Dori Guardado Age: 48 yrs Sex: Female : 1975 Arrival Date: 08/05/2023 Time: 09:54 Bed 19 Private MD: ED Physician Edilson Terry HPI: 08/05 10:24 This 48 yrs old Black Female presents to ER via Wheelchair with complaints of Abdominal ec2 Pain, Nausea, Diarrhea. 10:24 Patient arrives today due to concern for abdominal pain with associated nausea and ec2 diarrhea. States that she has a history of Crohn's disease, has chronic diarrhea has not had blood in her stool, states that she has some bloating as well as nausea with decreased p.o. intake. States that diarrhea is normal for her and is unchanged. Denies any urinary complaints. Does report a history of previous small bowel obstruction, previous appendectomy and cholecystectomy as well as partial hysterectomy.. Historical: - Allergies: 10:08 No Known Allergies; rs5 - PMHx: 10:08 Atrial Fib; bowel obstruction; Crohn's; Hypertension; rs5 - PSHx: 10:08 Appendectomy; section; Cholecystectomy; partial hysterectomy; rs5 - Immunization history:: Adult Immunizations unknown. - Social history:: Smoking status: unknown. ROS: 10:24 Constitutional: as per hpi ec2 Exam: 10:24 Constitutional: GEN: NAD Head: atraumatic Eyes: EOMI Ears: External ears are ec2 normal. CV: regular rate LUNGS: no respiratory distress ABD: non-distended, soft, no guarding, nonrigid, nontender SKIN: no evidence of rashes MSK: no evidence of trauma NEURO: moves all extremities equally Vital Signs: 10:06 BP 144 / 87; Pulse 70; Resp 17; Temp 97.8; Pulse Ox 98% on R/A; rs5 11:08 BP 140 / 85; Pulse 67; Resp 18; Temp 98(O); Pulse Ox 99% on R/A; rs5 MDM: 09:58 Patient medically screened. ec2 10:24 ED course: Patient arrives today due to concern for abdominal pain with associated ec2 nausea and diarrhea. Examination remarkable for reassuring abdominal examination with reassuring vital signs. Will obtain lab work, urine studies, treat the patient's pain with morphine and Toradol, give the patient crystalloid as well as Zofran. Currently considering gastroenteritis, will suspicion for small bowel obstruction or intra-abdominal infection. I currently do not feel she requires CT scan of the abdomen pelvis given the patient is well-appearing with reassuring vital signs and reassuring abdominal exam. . 11:50 Data reviewed: vital signs. ED course: CBC is reassuring, metabolic profile with ec2 appropriate electrolytes and minimally diminished renal function with a GFR of 83, lipase within normal ranges. . 11:58 ED course: On reassessment patient reports resolution in her abdominal pain. Will ec2 discharge home with prescription for couple days of Zofran and have her follow-up with her primary care doctor. Return precautions given.. 08/05 10:24 Order name: CBC with Diff; Complete Time: 11:50 ec2 08/05 10:24 Order name: CMP; Complete Time: 11:50 ec2 08/05 10:24 Order name: Lipase; Complete Time: 11:50 ec2 08/05 10:24 Order name: IV Saline Lock; Complete Time: 11:05 ec2 08/05 10:24 Order name: Labs collected and sent; Complete Time: 11:05 ec2 Administered Medications: 11:05 Drug: morphine IVP or IV 4 mg IVP once over 4 mins Route: IVP; Infused Over: 4 mins; rs5 Site: left antecubital; 11:23 Follow up: Response: No adverse reaction; Pain is decreased rs5 11:05 Drug: Ondansetron IVP 4 mg IVP once; over 2 minutes Route: IVP; Site: left antecubital; rs5 11:24 Follow up: Response: No adverse reaction; Nausea is decreased rs5 11:05 Drug: NS 0.9% IV 1000 ml IV at 1 bolus Per protocol; 1000 mL bolus Route: IV; Rate: 1 rs5 bolus; Site: left antecubital; 11:24 Follow up: Response: No adverse reaction rs5 11:39 Not Given (Patient Refused): TORadol - [id number] mg IVP once rs5 Disposition Summary: 08/05/23 11:58 Discharge Ordered Notes: Location: Home ec2 Condition: Stable ec2 Diagnosis - Abdominal pain, Generalized ec2 - Diarrhea, unspecified ec2 Discharge Instructions: - Discharge Summary Sheet ec2 - Abdominal Pain, Adult, [id number] ec2 Forms: - Medication Reconciliation Form ec2 - Thank You Letter ec2 - Antibiotic Education ec2 - Prescription Opioid Use ec2 - Patient Portal Instructions ec2 - Leadership Thank You Letter ec2 Prescriptions: - Zofran 4 mg Oral Tablet - take 1 tablet ORAL route every 12 hours As needed; 6 tablet; Refills: 0, ec2 Product Selection Permitted Signatures: Dispatcher [employer] Antonio Nagy RN RN rs5 Edilson Terry MD MD ec2 Corrections: (The following items were deleted from the chart) 10:08 10:08 PSHx: Ablation (partial hysterectomy); rs5 rs5
[2023-08-05 12:32] VITALS: BP 140/85; TEMP 98; O2SAT 99
== END 2023-08-05 12:16 | disposition home or self-care (01) ==
LOC: ER 09:54
DX: R10.84 Generalized abdominal pain (principal); R19.7 Diarrhea, unspecified
CPT/HCPCS: 85025; 36415; 83690; 80053; 96375; 96374; 99284; J2405; J7030

== ENCOUNTER 2023-08-12 23:12 | Emergency (ER) | payer OTHER ==
--- OUTSIDE RECORDS SUMMARY | 2023-08-12 23:24 | XMS REPORT | Continuity of Care Document ---
:1975 Author Organization [facility] t Address [address] [facility] [address] [place] [address] Care Team Providers Name Role Phone CASIE MUNOZ Primary Care Physician Unavailable Taylor Chung Attending Clinician Unavailable Karol Rich Attending Clinician Unavailable Noemy Lopez Attending Clinician Unavailable LICO TREVIZO Attending Clinician Unavailable LUCY CUEVAS Attending Clinician Unavailable LUCY CUEVAS Attending Clinician Unavailable [email or web address] Attending Clinician Unavailable CHRISTINA OSORIO Attending Clinician Unavailable CHRISTINA OSORIO Attending Clinician Unavailable JUSTO MAURER Attending Clinician Unavailable uJsto Maurer Attending Clinician MAC LEWIS Attending Clinician Unavailable MAC LEWIS Attending Clinician Unavailable Lico Trevizo MD Attending Clinician [facility] Attending Clinician Unavailable Christina Osorio MD Attending Clinician Doctor Unassigned, [place] Attending Clinician Unavailable Vanesa Nunez Attending Clinician Unavailable Raissa Tran DO Attending Clinician [email or web address] Admitting Clinician Unavailable Noemy Lopez Ly Admitting Clinician Unavailable Payers Payer Name Policy Type Policy Number Effective Date Expiration Date S ildefonso [facility] [id number] 2020 HEALTH CHOICE 00:00:00 [place] [address] [id number] 2020 Common Spiri t Health Choice 00:00:00 - [facility] [place] [id number] 2020 Common Spiri t [facility] [place] [address] [id number] 2020 Common Spiri t Health Choice [facility]:00:00 [facility] Problems Condition Condition Condition Status Onset Resolution Last Treating Co mments Source Name Details Category Date Date Treatment Clinician Date AFIB/I48.0 Diagnosis Active 2023-05-30 Memoria AFIB/I48.0 04-18 09:01:00 l Active 00:00: [place] 04/18/2023 00 [facility] [id number] Microcytic Problem Co mmon anemia [place] [id number] [place], [place] [id number] joint, Spirit knee, - [facility] right [facility] [id number] Sinusitis, Problem Com mon maxillary, Spirit chronic [facility] [id number] Recurrent Problem Com mon falls [place] [id number] Balance Problem Commo n problem [place] Morbid Obesity, Problem Common obesity morbid, Spirit BMI 50 or - [facility]I higher [facility] [id number] Crohn's Problem Commo n disease in [facility] remission [facility] Iron Iron Problem Common deficiency deficiency Sp jose anemia anemia, - CHI unspecifie [facility] d iron [facility] deficiency Medica l anemia Center type [id number] Adult Problem Common general Spirit medical - [facility] exam [facility] [id number] Hematuria, Problem Com mon unspecifie Spirit d - [facility] [id number] Multiple Problem Commo n joint pain Spirit - [facility] [id number] Urinary Problem Common tract Spirit infection, - [facility] site not [facility] [id number] Body mass Problem Com mon index Spirit [BMI] - [facility] 50.0-59.9, [facility] [id number] Vitamin D Problem Comm on deficiency Spirit - [facility] [id number] Grieving Problem Comm on Spirit - [facility] [id number] Seasonal Problem Comm on allergic Spirit rhinitis, - [facility] unspecifie [facility] [id number] Abdominal Problem Com mon bloating Spirit - [facility] [id number] Seasonal Problem Commo n allergic Spirit rhinitis - [facility]I due to [facility] Mixed Depression Problem Commo n anxiety with Spirit and anxiety - [facility] depressive [facility] [id number] Other Problem Common chronic Spirit pain - [facility] [id number] Esophageal Problem Com mon stricture [place] [id number] Morbid Problem Commo n 9104 (severe) Spirit obesity - [facility] due to [facility] [id number] Essential Problem Comm on hypertensi Spirit on - [facility]I [facility] [id number] Atrial Problem Common fibrillati Spirit on, - [facility]I unspecifie [facility] Gastroesop Gastroeso Problem Active 2023-05-30 Memoria hageal phageal 00:40:15 l reflux reflux [place] disease disease (disorder) (disorder) Active Problem 05/30/2023 [facility] Hypertensi Hypertens Problem Active 2023-05-30 Memoria ve papo 00:40:15 l disorder, disorder, Herm erich systemic systemic arterial arterial (disorder) (disorder) Active Problem 05/30/2023 [facility] Rheumatoid Rheumatoi Problem Active 2023-05-30 Memoria arthritis d 00:40:15 l (disorder) arthritis Her dumont (disorder) Active Problem 05/30/2023 [facility] Sleep Sleep Problem Active 2023-05-30 Memor ia apnea apnea 00:40:15 l (finding) (finding) Herm erich Active Problem 05/30/2023 [facility] PAROXYSMAL PAROXYSMA Diagnosis Active 2023-05-30 Memoria ATRIAL L ATRIAL 09:01:00 l FIBRILLATI FIBRILLATI He rmann ON ON Active [facility] Crohn's Crohn's Problem Active 2023-05-30 Me moria disease disease 00:40:15 l (disorder) (disorder) He rmann Active Problem 05/30/2023 [facility] No known No known Disease Unive rs active active ity of problems problems [facility] Allergies, Adverse Reactions, Alerts Allergy Allergy Status Severity Reaction(s) Onset Inactive Treating Comm ents Source Name Type Date Date Clinician No Known DA Active U 2020-09 [facility] Allergie 0-28 [place] s 00:00: d 00 [facility] No Known DA Active U 2020-09 [facility] Allergie 0-28 [place] s 00:00: d 00 [facility] No Known No Known Active Memori a Medicati Medicati l on on [place] Allergie Allergie s s NKFA NKFA Active Memoria l [place] NO KNOWN Drug Active Univers ALLERGIE Class ity of S [facility] Social History Social Habit Start Date Stop Date Quantity Comments Source History of Tobacco Common Spirit - Use [facility] Sex Assigned At Common Sp jose - [facility] Gender identity [facility]it y of [facility] Sexual orientation [facility] History of Social 2023-05-01 2023-05-01 Univers ity of function 00:00:00 00:00:00 [facility] Tobacco use and 2023-03-20 2023-03-20 Smokeless Universit y of exposure 00:00:00 00:00:00 tobacco non-user [facility] Smoking Status Start Date Stop Date Source Tobacco smoking consumption [facility] Tobacco smoking status [facility] Medications Ordered Filled Start Stop Current Ordering Indication Dosage Frequency Signature Comments Components Source Medication Medication Date Date Medication? Clinician (SIG) Name Name sucralfate Yes 1 gm = 1 Mem oria 1 g oral 9-02 tab, PO, l tablet 15:33: BID-Before [place] nn 00 Meals, # 28 tab, 0 Refill(s) sucralfate Yes 1 gm = 1 Mem oria 1 g oral 9-02 tab, PO, l tablet 15:33: BID-Before [place] nn 00 Meals, # 28 tab, 0 Refill(s) sucralfate 3-0 Yes 1 gm = 1 Mem oria 1 g oral 9-02 tab, PO, l tablet 15:33: BID-Before [place] nn Meals, # 28 tab, 0 Refill(s) sucralfate 3-0 Yes 1 gm = 1 Mem oria 1 g oral 9-02 tab, PO, l tablet 15:33: BID-Before [place] Meals, # 28 tab, 0 Refill(s) sucralfate 3-0 Yes 1 gm = 1 Mem oria 1 g oral 9-02 tab, PO, l tablet 15:33: BID-Before [place] nn Meals, # 28 tab, 0 Refill(s) sucralfate 3-0 Yes 1 gm = 1 Mem oria 1 g oral 9-02 tab, PO, l tablet 15:33: BID-Before [place] Meals, # 28 tab, 0 Refill(s) levocetiriz 2022-0 Yes 5 mg = 1 Me moria ine 5 mg 8-23 tab, PO, l oral tablet 14:44: PRN, PRN rm Allergies famotidine 2022-0 Yes 40 mg = 1 Me moria 40 mg oral 8-23 tab, PO, l tablet 14:44: Bedtime omeprazole 2022-0 Yes 40 mg = 1 Me moria 40 mg oral 8-23 cap, PO, l delayed 14:44: QAM [place] capsule levocetiriz 2022-0 Yes 5 mg = 1 Me moria ine 5 mg 8-23 tab, PO, l oral tablet 14:44: PRN, PRN rm Allergies famotidine 2022-0 Yes 40 mg = 1 Me moria 40 mg oral 8-23 tab, PO, l tablet 14:44: Bedtime levocetiriz 2022-0 Yes 5 mg = 1 Me moria ine 5 mg 8-23 tab, PO, l oral tablet 14:44: PRN, PRN rm Allergies famotidine 2022-0 Yes 40 mg = 1 Me moria 40 mg oral 8-23 tab, PO, l tablet 14:44: Bedtime omeprazole 2023-0 Yes 40 mg = 1 Me moria 40 mg oral 8-23 cap, PO, l delayed 14:44: QAM [place] release 00 capsule omeprazole 3-0 Yes 40 mg = 1 Me moria 40 mg oral 8-23 cap, PO, l delayed 14:44: QAM [place] release 00 capsule levocetiriz 3-0 Yes 5 mg = 1 Me moria ine 5 mg 8-23 tab, PO, l oral tablet 14:44: PRN, PRN [place] 00 Allergies famotidine 3-0 Yes 40 mg = 1 Me moria 40 mg oral 8-23 tab, PO, l tablet 14:44: Bedtime [place] 00 omeprazole 3-0 Yes 40 mg = 1 Me moria 40 mg oral 8-23 cap, PO, l delayed 14:44: QAM [place] release 00 capsule levocetiriz 2022-0 Yes 5 mg = 1 Me moria ine 5 mg 8-23 tab, PO, l oral tablet 14:44: PRN, PRN He r[place] 00 Allergies famotidine 2022-0 Yes 40 mg = 1 Me moria 40 mg oral 8-23 tab, PO, l tablet 14:44: Bedtime [place] 00 omeprazole 3-0 Yes 40 mg = 1 Me moria 40 mg oral 8-23 cap, PO, l delayed 14:44: QAM [place] release 00 capsule levocetiriz 3-0 Yes 5 mg = 1 Me moria ine 5 mg 8-23 tab, PO, l oral tablet 14:44: PRN, PRN [place] r[place] 00 Allergies famotidine 3-0 Yes 40 mg = 1 Me moria 40 mg oral 8-23 tab, PO, l tablet 14:44: Bedtime [place] 00 omeprazole 3-0 Yes 40 mg = 1 Me moria 40 mg oral 8-23 cap, PO, l delayed 14:44: QAM [place] release 00 capsule Eliquis 5 2022-0 Yes 5 mg, PO, Mem oria mg oral 8-23 Q12H, For l tablet 14:43: Atrial [place] 00 Fibrilatio n Eliquis 5 2022-0 Yes 5 mg, PO, Mem oria mg oral 8-23 Q12H, For l tablet 14:43: Atrial [place] 00 Fibrilatio n Eliquis 5 2022-0 Yes 5 mg, PO, Mem oria mg oral 8-23 Q12H, For l tablet 14:43: Atrial [place] Fibrilatio n Eliquis 5 2022-0 Yes 5 mg, PO, Mem oria mg oral 8-23 Q12H, For l tablet 14:43: Atrial [place] Fibrilatio n Eliquis 5 2022-0 Yes 5 mg, PO, Mem oria mg oral 8-23 Q12H, For l tablet 14:43: Atrial [place] Fibrilatio n Eliquis 5 2022-0 Yes 5 mg, PO, Mem oria mg oral 8-23 Q12H, For l tablet 14:43: Atrial [place] Fibrilatio n sulfaSALAzi 2022-0 Yes 1,000 mg = Memoria ne 500 mg 8-23 2 tab, PO, l oral tablet 14:42: BID Nain n sotalol 80 2022-0 Yes 80 mg = 1 Me moria mg oral 8-23 tab, PO, l tablet 14:42: BID [place] sulfaSALAzi 2022-0 Yes 1,000 mg = Memoria ne 500 mg 8-23 2 tab, PO, l oral tablet 14:42: BID Nain n sotalol 80 2022-0 Yes 80 mg = 1 Me moria mg oral 8-23 tab, PO, l tablet 14:42: BID [place] sulfaSALAzi 2022-0 Yes 1,000 mg = Memoria ne 500 mg 8-23 2 tab, PO, l oral tablet 14:42: BID Nain n sotalol 80 2022-0 Yes 80 mg = 1 Me moria mg oral 8-23 tab, PO, l tablet 14:42: BID [place] sulfaSALAzi 2022-0 Yes 1,000 mg = Memoria ne 500 mg 8-23 2 tab, PO, l oral tablet 14:42: BID Nain n sotalol 80 2022-0 Yes 80 mg = 1 Me moria mg oral 8-23 tab, PO, l tablet 14:42: BID [place] sulfaSALAzi 2022-0 Yes 1,000 mg = Memoria ne 500 mg 8-23 2 tab, PO, l oral tablet 14:42: BID Nain n sotalol 80 2023-0 Yes 80 mg = 1 Me moria mg oral 8-23 tab, PO, l tablet 14:42: BID sulfaSALAzi 3-0 Yes 1,000 mg = Memoria ne 500 mg 8-23 2 tab, PO, l oral tablet 14:42: BID Nain sotalol 80 3-0 Yes 80 mg = 1 Me moria mg oral 8-23 tab, PO, l tablet 14:42: BID chlorthalid 3-0 Yes 25mg Take 1 Univ ers one 25 mg 8-07 tablet by ity o f tablet 10:24: mouth in [place] 11 the Medical morning. Branch chlorthalid 2023-0 Yes 25mg Take 1 Univ ers one 25 mg 8-07 tablet by ity o f tablet 10:24: mouth in [place] 11 the Medical morning. Branch chlorthalid 2023-0 Yes 25mg Take 1 Univ ers one 25 mg 8-07 tablet by ity o f tablet 10:24: mouth in [place] 11 the Medical morning. Branch chlorthalid 3-0 Yes 25mg Take 1 Univ ers one 25 mg 7-24 tablet by ity o f tablet 08:13: mouth in [place] 44 the Medical morning. Branch triamterene 2022-0 Yes 1{capsu Take 1 U nivers -hydrochlor 7-20 le} capsule by it y of othiazide 00:00: mouth [place] (DYAZIDE) 00 every Medical 37.5-25 mg morning. Branc h per capsule triamterene 3-0 Yes 1{capsu Take 1 U nivers -hydrochlor 7-20 le} capsule by it y of othiazide 00:00: mouth [place] (DYAZIDE) 00 every Medical 37.5-25 mg morning. Branc h per capsule triamterene 2023-0 2023- No 1{capsu Take 1 Univers -hydrochlor 7-20 07-24 le} capsule by i ty of othiazide 00:00: 00:00 mouth [place] (DYAZIDE) 00 :00 every Medical 37.5-25 mg morning. Branc h per capsule triamterene 2023-0 2023- No 1{capsu Take 1 Univers -hydrochlor 7-20 07-20 le} capsule by i ty of othiazide 00:00: 00:00 mouth [place] (DYAZIDE) 00 :00 every Medical 37.5-25 mg morning. Branc h per capsule triamterene 2022-2022- No 1{capsu Take 1 Univers -hydrochlor 04-13-20 le} capsule by i ty of othiazide 00:00: 00:00 mouth [place] (DYAZIDE) 00 :00 every Medical 37.5-25 mg morning. Branc h per capsule sotaloL 80 2022-0 2022- No 80mg Take 1 Univ ers mg tablet 03-29- tablet by ity of 14:59: 00:00 mouth in [place] 32 :00 [facility] morning [place] and 1 tablet in the evening. Pt takes 40 mg in the AM and 40 mg in PM apixaban 5 2022-0 2023- No 5mg Take 1 Univ ers mg tablet 03-29- tablet by ity of 14:59: 00:00 mouth in [place] 32 :00 [facility] and 1 tablet in the evening. sotaloL 80 2022-0 2022- No 80mg Take 1 Univ ers mg tablet 03-29 tablet by ity of 14:59: 00:00 mouth in [place] 32 :00 [facility] and 1 tablet in the evening. Pt takes 40 mg in the AM and 40 mg in PM apixaban 5 2022-0 2023- No 5mg Take 1 Univ ers mg tablet 03-29- tablet by ity of 14:59: 00:00 mouth in [place] 32 :00 [facility] and 1 tablet in the evening. sotaloL 80 2022-0 2022- No 80mg Take 1 Univ ers mg tablet 03-29- tablet by ity of 14:59: 00:00 mouth in [place] 32 :00 [facility] and 1 tablet in the evening. Pt takes 40 mg in the AM and 40 mg in PM apixaban 5 2022-0 3- No 5mg Take 1 Univ ers mg tablet 03-29- tablet by ity of 14:59: 00:00 mouth in [place] 32 :00 [facility] and 1 tablet in the evening. sotaloL 80 2022-0 3- No 80mg Take 1 Univ ers mg tablet 03-29- tablet by ity of 14:59: 00:00 mouth in [place] 32 :00 the Medical morning Branch and 1 tablet in the evening. Pt takes 40 mg in the AM and 40 mg in PM apixaban 5 2022-0 3- No 5mg Take 1 Univ ers mg tablet 7-05 07-05 tablet by ity of 14:59: 00:00 mouth in [place] 32 :00 the Medical morning Branch and 1 tablet in the evening. sotaloL 80 2022-0 Yes [id number] 80mg Take 1 Univers mg tablet 7-05 tablet by ity o f 00:00: mouth in [place] 00 the Medical morning Branch and 1 tablet in the evening. Pt takes 40 mg in the AM and 40 mg in PM apixaban 5 2022-0 Yes 1358 5mg Take 1 Unive rs mg tablet 7-05 tablet by ity o f 00:00: mouth in [place] 00 the Medical morning Branch and 1 tablet in the evening. Indication s: atrial fibrillati on apixaban 5 2022-0 Yes 1358 5mg Take 1 Unive rs mg tablet 7-05 tablet by ity o f 00:00: mouth in [place] 00 the Medical morning Branch and 1 tablet in the evening. Indication s: atrial fibrillati on sotaloL 80 2022-0 Yes [id number] 40mg Take 0.5 Univers mg tablet 7-05 tablets by ity of 00:00: mouth in [place] 00 the Medical morning Branch and 0.5 tablets in the evening. Pt takes 40 mg in the AM and 40 mg in PM apixaban 5 2022-0 Yes 1358 5mg Take 1 Unive rs mg tablet 7-05 tablet by ity o f 00:00: mouth in [place] 00 the Medical morning Branch and 1 tablet in the evening. Indication s: atrial fibrillati on sotaloL 80 2022-0 Yes [id number] 40mg Take 0.5 Univers mg tablet 7-05 tablets by ity of 00:00: mouth in [place] 00 the Medical morning Branch and 0.5 tablets in the evening. Pt takes 40 mg in the AM and 40 mg in PM apixaban 5 2022-0 Yes 1358 5mg Take 1 Unive rs mg tablet 7-05 tablet by ity o f 00:00: mouth in [place] [address] the Medical morning Branch and 1 tablet in the evening. Indication s: atrial fibrillati on sotaloL 80 2022-0 Yes [id number] 40mg Take 0.5 Univers mg tablet 7-05 tablets by ity of 00:00: mouth in [place] 00 the Medical morning Branch and 0.5 tablets in the evening. Pt takes 40 mg in the AM and 40 mg in PM apixaban 5 2022-0 Yes 1358 5mg Take 1 Unive rs mg tablet 7-05 tablet by ity o f 00:00: mouth in [place] 00 the Medical morning Branch and 1 tablet in the evening. Indication s: atrial fibrillati on sotaloL 80 0 Yes [id number] 40mg Take 0.5 Univers mg tablet 7-05 tablets by ity of 00:00: mouth in [place] 00 the Medical morning Branch and 0.5 tablets in the evening. Pt takes 40 mg in the AM and 40 mg in PM apixaban 5 2022-0 Yes 1358 5mg Take 1 Unive rs mg tablet 7-05 tablet by ity o f 00:00: mouth in [place] 00 the Medical morning Branch and 1 tablet in the evening. Indication s: atrial fibrillati on sotaloL 80 Yes [id number] 40mg Take 0.5 Univers mg tablet 7-05 tablets by ity of 00:00: mouth in [place] [address] the Medical morning Branch and 0.5 tablets in the evening. Pt takes 40 mg in the AM and 40 mg in PM apixaban 5 2022-0 Yes 1358 5mg Take 1 Unive rs mg tablet 7-05 tablet by ity o f 00:00: mouth in [place] [address] the Medical morning Branch and 1 tablet in the evening. Indication s: atrial fibrillati on sotaloL 80 0 Yes [id number] 40mg Take 0.5 Univers mg tablet 7-05 tablets by ity of 00:00: mouth in [place] 00 the Medical morning Branch and 0.5 tablets in the evening. Pt takes 40 mg in the AM and 40 mg in PM apixaban 5 2022-0 Yes 1358 5mg Take 1 Unive rs mg tablet 7-05 tablet by ity o f 00:00: mouth in [place] 00 the Medical morning Branch and 1 tablet in the evening. Indication s: atrial fibrillati on sotaloL 80 2022-0 Yes [id number] 40mg Take 0.5 Univers mg tablet 7-05 tablets by ity of 00:00: mouth in [place] [address] the Medical morning Branch and 0.5 tablets in the evening. Pt takes 40 mg in the AM and 40 mg in PM apixaban 5 0 Yes 1358 5mg Take 1 Unive rs mg tablet 7-05 tablet by ity o f 00:00: mouth in [address] morning [place] and 1 tablet in the evening. Indication s: atrial fibrillati on sotaloL 80 Yes [id number] 40mg Take 0.5 Univers mg tablet 7-05 tablets by ity of 00:00: mouth in [place] 00 [facility] and 0.5 tablets in the evening. Pt takes 40 mg in the AM and 40 mg in PM apixaban 5 Yes 1358 5mg Take 1 Unive rs mg tablet 7-05 tablet by ity o f 00:00: mouth in [address] and 1 tablet in the evening. Indication s: atrial fibrillati on sotaloL 80 Yes [id number] 40mg Take 0.5 Univers mg tablet 7-05 tablets by ity of 00:00: mouth in [address] and 0.5 tablets in the evening. Pt takes 40 mg in the AM and 40 mg in PM sotaloL 80 Yes [id number] 80mg Take 1 Univers mg tablet 7-05 tablet by ity o f 00:00: mouth in [address] and 1 tablet in the evening. Pt takes 40 mg in the AM and 40 mg in PM apixaban 5 Yes 1358 5mg Take 1 Unive rs mg tablet 7-05 tablet by ity o f 00:00: mouth in [address] and 1 tablet in the evening. Indication s: atrial fibrillati on sotaloL 80 2022-0 2022- No [id number] 80mg Take 1 Univers mg tablet 7-05 07-05 tablet by ity of 00:00: 00:00 mouth in [place] 00 :00 [facility] and 1 tablet in the evening. Pt takes 40 mg in the AM and 40 mg in PM adalimumab Yes inject Unive rs (HUMIRA,CF, 6-26 under the ity of [place]) 15:30: skin. [address] dicyclomine Yes 10mg Take 1 Univ ers [...] the ity of [place]) 15:30: skin. [place] [address] Medical Branch dicyclomine 2023-0 Yes 10mg Take [...] the ity of [place]) 15:30: skin. [place] [address] Medical Branch dicyclomine 2023-0 Yes 10mg Take [...] the ity of [place]) 15:30: skin. [place] [address] Medical Branch dicyclomine 2023-0 Yes 10mg Take [...] the ity of [place]) 15:30: skin. [place] [address] Medical Branch dicyclomine 2023-0 Yes 10mg Take [...] the ity of [place]) 15:30: skin. [place] [address] Medical Branch dicyclomine 2023-0 Yes 10mg Take [...] the ity of [place]) 15:30: skin. [place] [address] Medical Branch dicyclomine 2023-0 Yes 10mg Take [...] the ity of [place]) 15:30: skin. [place] [address] Medical Branch dicyclomine 2023-0 Yes 10mg Take [...] the ity of [place]) 15:30: skin. [place] [address] Medical Branch dicyclomine 2023-0 Yes 10mg Take [...] the ity of [place]) 15:30: skin. [place] [address] Medical Branch dicyclomine 2023-0 Yes 10mg Take [...] the ity of [place]) 15:30: skin. [place] [address] Medical Branch dicyclomine 2023-0 Yes 10mg Take [...] the ity of [place]) 15:30: skin. [place] [address] Medical Branch dicyclomine 2023-0 Yes 10mg Take [...] by ity o f tablet 15:30: mouth [place] [address] every 12 Medical (twelve) Branch hours. sotaloL 80 2023-0 Yes 80mg Take 1 Unive rs mg tablet 6-26 tablet by ity o f 15:30: mouth in [place] [address] the Medical morning Branch and 1 tablet in the evening. Pt takes 40 mg in the AM and 40 mg in PM apixaban 5 3-0 Yes 5mg Take 1 Unive rs mg tablet 6-26 tablet by ity o f 15:30: mouth in [place] [address] the Medical morning Branch and 1 tablet in the evening. adalimumab 2023-0 Yes inject Unive rs (HUMIRA,CF, 6-26 under the ity of [place]) 15:30: skin. [place] [address] Medical Branch dicyclomine 2023-0 Yes 10mg Take 1 Univ ers 10 mg 6-26 capsule by ity of capsule 15:30: mouth as [place] [address] needed for Medical Abdominal Branch pain. vancomycin 2023-0 Yes 500mg Take 6 mL U nivers 500 mg/6 mL 6-26 by mouth ity of oral 15:30: in the [place] [address] morning Medical and 6 mL Branch at noon and 6 mL in the evening. metroNIDAZO 3-0 Yes 500mg Take 1 Uni vers LE 500 mg 6-26 tablet by ity o f tablet 15:30: mouth [place] [address] every 12 Medical (twelve) Branch hours. sotaloL 80 2023-0 Yes 80mg Take 1 Unive rs mg tablet 6-26 tablet by ity o f 15:30: mouth in [place] [address] the Medical morning Branch and 1 tablet in the evening. Pt takes 40 mg in the AM and 40 mg in PM apixaban 5 3-0 Yes 5mg Take 1 Unive rs mg tablet 6-26 tablet by ity o f 15:30: mouth in [place] [address] the Medical morning Branch and 1 tablet in the evening. adalimumab 2023-0 Yes inject Unive rs (HUMIRA,CF, 6-26 under the ity of [place]) 15:30: skin. [place] [address] Medical Branch dicyclomine 2023-0 Yes 10mg Take 1 Univ ers 10 mg 6-26 capsule by ity of capsule 15:30: mouth as [place] [address] needed for Medical Abdominal Branch pain. vancomycin [...] by ity o f tablet 15:30: mouth [place] 35 every 12 Medical (twelve) Branch hours. adalimumab 2022-0 Yes inject Unive rs (HUMIRA,CF, 6-26 under the ity of [place]) 15:30: skin. [place] [address] Medical Branch dicyclomine 2022-0 Yes 10mg Take 1 Univ ers 10 mg 6-26 capsule by ity of capsule 15:30: mouth as [place] [address] needed for Medical Abdominal Branch pain. vancomycin [...] by ity o f tablet 15:30: mouth [place] 35 every 12 Medical (twelve) Branch hours. ALPRAZolam ALPRAZolam No 1{table ALPRAZolam 0.5 MG 0.5 MG 5-03 t} 0.5 MG 00:00: 00 ALPRAZolam ALPRAZolam No 1{table ALPRAZolam 0.5 MG 0.5 MG 5-03 t} 0.5 MG 00:00: 00 ALPRAZolam ALPRAZolam 0 No 1{table ALPRAZolam 0.5 MG 0.5 MG 5-03 t} 0.5 MG 00:00: 00 ALPRAZolam ALPRAZolam 0 No 1{table ALPRAZolam 0.5 MG 0.5 MG 5-03 t} 0.5 MG 00:00: 00 Kenalog 0.1 Kenalog 0.1 2021-09- No BID Kenalog % % 11-01 0.1 % 00:00: 00:00 00 :00 predniSONE predniSONE 2021-09- No QD predniSONE 20 MG 20 MG 11-01 20 MG 00:00: 00:00 00 :00 Chlorhexidi Chlorhexidi 2021-09- No BID Chlorhexid ne ne 11-01-14 ine Gluconate Gluconate 00:00: 00:00 Gluconate 0.12 [...] 00:00 _food_o 00 :00 r_milk} HUMIRA PEN 2021- No KIT -12 CD/UC/HS 00:00: 00 IPRATROPIUM No SPR 0.06% 05-26 00:00: 00 Telmisartan Telmisartan 0 No 1{table QD Telmisarta 20 MG 20 MG 8-22 t_at_be n 20 MG 00:00: dtime} 00 Telmisartan Telmisartan 0 No 1{table QD Telmisarta 20 MG 20 MG 8-22 t_at_be n 20 MG 00:00: dtime} 00 Dose 2021-0 No Unknown 8-12 00:00: 00 Dose 2021-0 No Unknown 8- 00:00: 00 Dose 2021-0 No Unknown - 00:00: 00 fluconazole 2021-0 No 1mg 150 mg 7-27 tablet 00:00: 00 nystatin 2021-0 No 10unit/ 100,000 7-27 mL unit/mL 00:00: oral 00 suspension Dose 2022-0 No Unknown 04-20 00:00: 00 Dose 2-0 No Unknown 04-20 00:00: 00 Dose 2-0 No Unknown 04-20 00:00: 00 fluconazole 2-0 No 1mg 150 mg 7-27 tablet 00:00: 00 nystatin 2-0 No 10unit/ 100,000 - mL unit/mL 00:00: oral 00 suspension Dose 2021-0 No Unknown 04-20 00:00: 00 Dose 2022-0 No Unknown 04-20 00:00: 00 Dose 2-0 No Unknown 04-20 00:00: 00 Augmentin Augmentin 2021-0 2022- No 1{table BID Augmentin 500-125 MG 500-125 MG 03-30 t} 500-125 MG 00:00: 00:00 00 :00 [...] 2022-0 No Unknown 4- 00:00: 00 Dose 2-0 No Unknown 4 [...] tablet 00:00: 00 Dose 2022-0 No Unknown 4- [...] No Univers medications 0-09 ity of 19:54: [address] metoprolol 2020-0 No 1mg tartrate 50 [...] Sodium 05-04 Spirit 00:00: - [facility] 00 [facility] Ergocalcife Ergocalcife 2019-1 2020- No Na Lopez 1 capsule Common rol rol -18 16 Spirit 00:00: 00:00 - [facility] 00 :00 [facility] Paxil Paxil 2018-0 Yes Na Lopez 1 tablet Comm on 12-26 in the Spirit 00:00: morning - [facility] 00 [facility] Humira Humira Yes Na Lopez not Common defined [place] Aspirin Aspirin Yes Na Lopez not Common defined [place] BusPIRone BusPIRone Yes Na Lopez 1 tablet Common HCl HCl [place] Metoprolol Metoprolol Yes Na Lopez 1 tablet Common T[facility] T[facility] L[facility] Lagevrio No 4{capsu BID Lagevrio 200 MG 200 MG les} 200 MG Famotidine Famotidine No Famotidine 40 MG 40 MG 40 MG Gabapentin Gabapentin No 1{capsu TID Gabapentin 100 MG 100 MG le} 100 MG PARoxetine PARoxetine No PARoxetine HCl 20 MG HCl 20 MG HCl 20 MG Montelukast Montelukast No Montelukas Sodium 10 Sodium 10 t Sodium MG MG 10 MG Montelukast Montelukast No Montelukas Sodium [...] 0.5 MG 0.5 MG t} 0.5 MG Famotidine Famotidine No Famotidine 40 MG [...] Propionate 50 MCG/ACT Humira Humira No Humira Omeprazole Omeprazole No [...] MG Ergocalcife Ergocalcife No 1{capsu Ergocalcif rol 29072 rol 03709 le} fortunato 97795 UNIT UNIT UNIT Gabapentin Gabapentin No 1{capsu [...] MCG/ACT Ergocalcife Ergocalcife No 1{capsu Ergocalcif rol 21352 rol 25403 le} fortunato 21692 UNIT UNIT UNIT Gabapentin Gabapentin No 1{capsu [...] MG Ergocalcife Ergocalcife No 1{capsu Ergocalcif rol 75469 rol 85193 le} fortunato 96970 UNIT UNIT UNIT Montelukast Montelukast No 1{table [...] MG t} Ergocalcife Ergocalcife No 1{capsu rol 90132 rol 74618 le} UNIT UNIT Montelukast Montelukast No 1{table [...] MG Ergocalcife Ergocalcife No 1{capsu Ergocalcif rol 66758 rol 88497 le} fortunato 06477 UNIT UNIT UNIT Montelukast Montelukast No 1{table [...] MG Ergocalcife Ergocalcife No 1{capsu Ergocalcif rol 10871 rol 85659 le} fortunato 97942 UNIT UNIT UNIT Omeprazole Omeprazole No 1{capsu [...] MG Ergocalcife Ergocalcife No 1{capsu Ergocalcif rol 70079 rol 48182 le} fotrunato 48655 UNIT UNIT UNIT Humira Humira No Humira [...] MG Ergocalcife Ergocalcife No 1{capsu Ergocalcif rol 58092 rol 55735 le} fortunato 76933 UNIT UNIT UNIT Famotidine Famotidine No 1{table [...] MG Ergocalcife Ergocalcife No 1{capsu Ergocalcif rol 92377 rol 46547 le} fortunato 31087 UNIT UNIT UNIT busPIRone busPIRone No 1{table [...] MG Ergocalcife Ergocalcife No 1{capsu Ergocalcif rol 17278 rol 98727 le} fortunato 35125 UNIT UNIT UNIT Montelukast Montelukast No 1{table [...] MG Ergocalcife Ergocalcife No 1{capsu Ergocalcif rol 74484 rol 57458 le} fortunato 99221 UNIT UNIT UNIT Montelukast Montelukast No 1{table [...] MG Ergocalcife Ergocalcife No 1{capsu Ergocalcif rol 22070 rol 90226 le} fortunato 60397 UNIT UNIT UNIT Flonase 50 Flonase 50 [...] MG Ergocalcife Ergocalcife No 1{capsu Ergocalcif rol 14748 rol 62921 le} fortunato 00985 UNIT UNIT UNIT PARoxetine PARoxetine No PARoxetine [...] MG Ergocalcife Ergocalcife No 1{capsu Ergocalcif rol 98258 rol 67695 le} fortunato 49329 UNIT UNIT UNIT PARoxetine PARoxetine No PARoxetine [...] MG Ergocalcife Ergocalcife No 1{capsu Ergocalcif rol 83000 rol 34234 le} fortunato 51447 UNIT UNIT UNIT Aspirin 81 Aspirin 81 [...] MG Ergocalcife Ergocalcife No 1{capsu Ergocalcif rol 74235 rol 72927 le} fortunato 96917 UNIT UNIT UNIT ALPRAZolam ALPRAZolam No 1{table [...] MG Ergocalcife Ergocalcife No 1{capsu Ergocalcif rol 20386 rol 91486 le} fortunato 79783 UNIT UNIT UNIT ALPRAZolam ALPRAZolam No 1{table [...] MG Ergocalcife Ergocalcife No 1{capsu Ergocalcif rol 78115 rol 89345 le} fortunato 02826 UNIT UNIT UNIT ALPRAZolam ALPRAZolam No 1{table [...] MG Ergocalcife Ergocalcife No 1{capsu Ergocalcif rol 73253 rol 54043 le} fortunato 95750 UNIT UNIT UNIT Benzonatate Benzonatate No TID [...] MG Ergocalcife Ergocalcife No 1{capsu Ergocalcif rol 70267 rol 40131 le} fortunato 58271 UNIT UNIT UNIT Benzonatate Benzonatate No TID [...] MG Ergocalcife Ergocalcife No 1{capsu Ergocalcif rol 05134 rol 78604 le} fortunato 05894 UNIT UNIT UNIT Famotidine Famotidine No Famotidine [...] MG Ergocalcife Ergocalcife No 1{capsu Ergocalcif rol 64157 rol 25618 le} fortunato 00889 UNIT UNIT UNIT Famotidine Famotidine No Famotidine [...] MG Ergocalcife Ergocalcife No 1{capsu Ergocalcif rol 54552 rol 81458 le} fortunato 73233 UNIT UNIT UNIT Gabapentin Gabapentin No 1{capsu [...] MCG/ACT Ergocalcife Ergocalcife No 1{capsu Ergocalcif rol 77150 rol 72706 le} fortunato 64057 UNIT UNIT UNIT Gabapentin Gabapentin No 1{capsu [...] MG Ergocalcife Ergocalcife No 1{capsu Ergocalcif rol 52435 rol 22926 le} fortunato 69737 UNIT UNIT UNIT Montelukast Montelukast No Montelukas [...] MG Ergocalcife Ergocalcife No 1{capsu Ergocalcif rol 03380 rol 27461 le} fortunato 50651 UNIT UNIT UNIT Cetirizine Cetirizine No Cetirizine [...] MG Ergocalcife Ergocalcife No 1{capsu Ergocalcif rol 69491 rol 47347 le} fortunato 32533 UNIT UNIT UNIT Cetirizine Cetirizine No Cetirizine [...] MG Ergocalcife Ergocalcife No 1{capsu Ergocalcif rol 93753 rol 03843 le} fortunato 97100 UNIT UNIT UNIT Cetirizine Cetirizine No Cetirizine [...] MG Ergocalcife Ergocalcife No 1{capsu Ergocalcif rol 37813 rol 01960 le} fortunato 24871 UNIT UNIT UNIT Cetirizine Cetirizine No Cetirizine [...] MG Ergocalcife Ergocalcife No 1{capsu Ergocalcif rol 97351 rol 90430 le} fortunato 31181 UNIT UNIT UNIT Cetirizine Cetirizine No Cetirizine [...] MG Ergocalcife Ergocalcife No 1{capsu Ergocalcif rol 98617 rol 07645 le} fortunato 50264 UNIT UNIT UNIT guaiFENesin guaiFENesin No 10{ml_a [...] MG Ergocalcife Ergocalcife No 1{capsu Ergocalcif rol 26202 rol 95562 le} fortunato 90780 UNIT UNIT UNIT Meloxicam Meloxicam No Meloxicam [...] 15:23:00 144 mm[Hg] Univer sity of pressure [facility] Diastolic blood 2023-05-01 15:23:00 89 mm[Hg] Unive rsity of pressure [facility] Heart rate 2023-05-01 15:23:00 75 /min Universi ty of [facility] Respiratory rate 2023-05-01 15:23:00 17 /min Univ ersity of [facility] Body height 2023-05-01 15:23:00 160 cm [facility] ty of [facility] Body weight 2023-05-01 15:23:00 135.[address] [facility] BMI 2023-05-01 15:23:00 52.98 kg/m2 Universi ty of [facility] Oxygen saturation in 2023-05-01 15:23:00 99 /min University of Arterial blood by [facility] Pulse oximetry Branch Systolic blood 2023-03-20 20:35:00 133 mm[Hg] Univer sity of [facility] Diastolic blood 2023-03-20 20:35:00 94 mm[Hg] Unive rsity of [facility] Heart rate 2023-03-20 20:35:00 78 /min Universi ty of [facility] Oxygen saturation in 2023-03-20 20:35:00 95 /min University of Arterial blood by [facility] Pulse oximetry Branch Body temperature 2023-03-20 20:33:00 36.33 Gem [facility] ersity of [facility] Respiratory rate 2023-03-20 20:33:00 18 /min Univ ersity of [facility] Body height 2023-03-20 20:33:00 160 cm [facility] ty of [facility] Body weight 2023-03-20 20:33:00 134.[address] [facility] BMI 2023-03-20 20:33:00 52.54 kg/m2 Universi ty of [facility] height 2023-01-24 14:00:00 63 [in_i] Common S pirit [facility] weight 2023-01-24 14:00:00 292.4 [lb_av] Common [facility] temperature 2023-01-24 14:00:00 97.3 [degF] Common S pirit [facility] bmi 2023-01-24 14:00:00 51.79 kg/m2 Common S pirit [facility] oximetry 2023-01-24 14:00:00 99 % [facility] respiratory rate 2023-01-24 14:00:00 18 /min Comm on [facility] - [facility] blood pressure 2023-01-24 14:00:00 137 mm[Hg] Common [facility] - systolic [facility] blood pressure 2023-01-24 14:00:00 89 mm[Hg] Common [facility] - diastolic [facility] height 2022-08-31 08:20:00 63 [in_i] [facility] weight 2022-08-31 08:20:00 278 [lb_av] [facility] temperature 2022-08-31 08:20:00 98.5 [degF] [facility] bmi 2022-08-31 08:20:00 49.24 kg/m2 [facility] height 2022-08-10 10:20:00 63 [in_i] [facility] weight 2022-08-10 10:20:00 283 [lb_av] [facility] temperature 2022-08-10 10:20:00 98.5 [degF] [facility] bmi 2022-08-10 10:20:00 50.13 kg/m2 [facility] height 2022-06-22 10:20:00 63 [in_i] [facility] weight 2022-06-22 10:20:00 276 [lb_av] [facility] bmi 2022-06-22 10:20:00 48.89 kg/m2 [facility] height 2022-04-26 17:00:00 63 [in_i] [facility] weight 2022-04-26 17:00:00 279 [lb_av] [facility] temperature 2022-04-26 17:00:00 97.9 [degF] Common S pirit [facility] bmi 2022-04-26 17:00:00 49.42 kg/m2 Common [facility] height 2022-01-05 14:00:00 63 [in_i] Common S [facility] weight 2022-01-05 14:00:00 297 [lb_av] Common S pirit [facility] bmi 2022-01-05 14:00:00 52.61 kg/m2 Common S pirit [facility] blood pressure 2022-01-05 14:00:00 148 mm[Hg] Common [facility] - systolic [facility] blood pressure 2022-01-05 14:00:00 102 mm[Hg] Common [facility] - diastolic [facility] height 2021-12-28 16:00:00 63 [in_i] [facility] weight 2021-12-28 16:00:00 300.4 [lb_av] [facility] temperature 2021-12-28 16:00:00 97.3 [degF] [facility] S [facility] bmi 2021-12-28 16:00:00 53.21 kg/m2 [facility] oximetry 2021-12-28 16:00:00 100 % [facility] respiratory rate 2021-12-28 16:00:00 18 /min Comm on Spirit [facility] blood pressure 2021-12-28 16:00:00 137 mm[Hg] Common [facility] - systolic [facility] blood pressure 2021-12-28 16:00:00 83 mm[Hg] Common [facility] - diastolic [facility] height 2021-09-28 09:40:00 63 [in_i] [facility] weight 2021-09-28 09:40:00 283 [lb_av] [facility] temperature 2021-09-28 09:40:00 97.9 [degF] [facility] S pirit [facility] bmi 2021-09-28 09:40:00 50.13 kg/m2 [facility] height 2021-08-02 10:00:00 63 [in_i] [facility] weight 2021-08-02 10:00:00 282.6 [lb_av] [facility] temperature 2021-08-02 10:00:00 97.0 [degF] [facility] bmi 2021-08-02 10:00:00 50.05 kg/m2 [facility] oximetry 2021-08-02 10:00:00 97 % [facility] respiratory rate 2021-08-02 10:00:00 16 /min Comm on [facility] blood pressure 2021-08-02 10:00:00 140 mm[Hg] Common [facility] - systolic [facility] blood pressure 2021-08-02 10:00:00 62 mm[Hg] Common [facility] diastolic [facility] Systolic blood 2021-07-04 00:50:00 180 mm[Hg] Univer [facility]ity of [facility] Diastolic blood 2021-07-04 00:50:00 110 mm[Hg] Unive rsity of [facility] Heart rate 2021-07-04 00:50:00 79 /min [facility] Body temperature 2021-07-04 00:50:00 36.67 Gem [facility] Respiratory rate 2021-07-04 00:50:00 18 /min [facility] Body weight 2021-07-04 00:50:00 121.564 kg [facility] Oxygen saturation in 2021-07-04 00:50:00 99 /min [facility] Arterial blood by [facility] Pulse oximetry Branch Heart Rate 2023-05-27 13:27:31 [facility] [place] Systolic (mm Hg) 2023-05-27 13:25:25 [place] Diastolic (mm Hg) 2023-05-27 13:25:25 Mem orial [place] Temperature Oral (F) 2023-05-27 13:25:01 97.6 F [facility] [place] Height 2023-05-26 15:06:00 5 [ft_i] [facility] [place] Weight 2023-05-26 15:06:00 [facility] [place] BMI Calculated 2023-05-26 15:06:00 [facility] [place] Systolic (mm Hg) 2023-05-24 16:30:00 [place] [facility] [place] Diastolic (mm Hg) 2023-05-24 16:30:00 Mem [facility]rial [place] Height 2023-05-24 15:00:00 5 [ft_i] [facility] [place] Weight 2023-05-24 15:00:00 [facility] [place] BMI Calculated 2023-05-24 15:00:00 [facility] [place] BP Systolic 2022-01-21 14:32:00 BP Diastolic 2022-01-21 14:32:00 Weight Measured 2022-01-21 14:32:00 276.00 pounds Height Measured 2022-01-21 14:32:00 63.00 inches Body Temperature 2022-01-21 14:32:00 Heart Rate 2022-01-21 14:32:00 Respiratory Rate 2022-01-21 14:32:00 Procedures Procedure Date / Time Performing Clinician Source Performed SLEEP STUDY DATA REPORT 2023-04-11 05:01:00 Doctor Nichole, [facility] HB ECG ROUTINE & RHYTHM 2023-03-20 20:38:13 Lico Trevizo [facility] ASSIGNMENT OF BENEFITS 2023-03-20 20:13:23 Doctor Nichole, [facility] REFERRAL- REQUEST/RESPONSE 2023-02-02 05:01:00 Doctor Nichole , [facility] Cardioversion 2023-01-03 05:00:00 [facility] XR CHEST 1 VW 2021-07-04 01:14:37 Raissa [facility] NOTICE OF PRIVACY 2021-07-04 00:45:31 Doctor Nichole, [facility] PRACTICES [facility] CONSENT/REFUSAL FOR 2021-07-04 00:45:10 Doctor Nichole, [facility] DIAGNOSIS AND TREATMENT [facility] Repair of small bowel [facility] obstruction Partial [facility] 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[facility] [place] stricture section [facility] Nain n Cholecystectomy [facility] [place] Appendectomy [facility] Plan of Care Planned Activity Planned Date Details Comments Source Goal Plan of Care Note [code = 10768-1] Goal Plan of Care Note [code = 83627-5] Goal Plan of Care Note [code = 20012-0] Goal Plan of Care Note [code = 95525-0] Goal Plan of Care Note [code = 01275-6] Goal Plan of Care Note [code = 31245-0] Goal Plan of Care Note [code = 85365-4] Goal Plan of Care Note [code = 69144-9] Goal Plan of Care Note [code = 65182-6] Goal Plan of Care Note [code = 07129-5] Goal Plan of Care Note [code = 35302-8] Goal Plan of Care Note [code = 86385-0] Goal Plan of Care Note [code = 26916-4] Goal Plan of Care Note [code = 48315-9] Goal Plan of Care Note [code = 03111-3] Goal Plan of Care Note [code = 07424-0] Encounters Start End Encounter Admission Attending Care Care Encounter Source Date/Time Date/Time Type Type Clinicians Facility Department ID 2023-02-24 Outpatient Chung, STLMLC STLC [id number] Common 14:59:00 Avnee 40871 [place] 2023-01-23 Outpatient Chung, STLMLC STLC [id number] Common 09:09:00 Avnee 81718 [place] 2022-12-29 Outpatient Chung, STLMLC STLMLC [id number] Common 15:24:00 Avnee 57165 [place] 2022-12-21 Outpatient Layla, STLMLC STLMLC [id number] Common 09:47:00 Karol 23179 [place] 2022-06-01 Outpatient Noemy Lopez STTRAVISLC STLC [id number] 2 Common 09:18:00 52883 [place] 2022-04-13 Outpatient Noemy Lopez STLC STLC [id number] 2 Common 15:29:00 [place] 2022-04-07 Outpatient Lopez, Na STLMLC STLMLC [id number] 2 Common 16:07:00 [place] 2022-01-04 Outpatient Lopez, Na STLMLC STLMLC [id number] 2 Common 09:31:01 [place] 2021-10-20 Outpatient Lopez, Na STLMLC STLMLC [id number] 2 Common 14:09:55 66055 [place] 2021-10-20 Outpatient Lopez, Na STLMLC STLMLC [id number] 2 Common 13:47:22 95728 [place] 2021-10-20 Outpatient Lopez, Na STLMLC STLMLC [id number] 2 Common 12:29:04 81910 [place] 2021-10-20 Outpatient Lopez, Na STLMLC STLMLC [id number] 2 Common 12:03:44 56929 [place] 2021-10-20 Outpatient Lopez, Na STLMLC STLMLC [id number] 2 Common 12:03:05 76105 [place] [facility] 2021-10-20 Outpatient Lopez, Na STLMLC STLMLC [id number] 2 Common 11:43:49 01263 [place] 2021-10-20 Outpatient Lopez, Na STLMLC STLMLC [id number] 2 Common 11:35:56 36138 [facility] 2021-10-20 Outpatient Lopez, Na STLMLC STLMLC [id number] 2 Common 11:18:09 45574 [facility] 2021-10-20 Outpatient Lopez, Na STLMLC STLMLC [id number] 2 Common 11:04:54 74012 [place] [facility] 2021-10-20 Outpatient Lopez, Na STLMLC STLMLC [id number] 2 Common 11:04:25 84335 [place] [facility] 2023-08-02 2023-08-02 Outpatient LUCY BOOGIE [facility] [id number] Univers 11:00:00 11:00:00 LUCY CUEVAS y [facility] 2023-07-25 2023-07-25 Outpatient [id number] PRIV PRIV [id number] [facility] 00:00:00 00:00:00 diyala_S [id number] Medic al 2023-07-24 2023-07-24 Outpatient GC_[id number] PRIV PRIV [id number] [facility] 00:00:00 00:00:00 diyala_S [id number] Medic al 2023-05-26 2023-05-[id number] Mem[facility] 21:42:00 17:29:00 [place] 01 [facility] 2023-05-26 2023-05-27 [facility] [id number] Memoria 21:42:00 17:29:00 [place] 01 [facility] 2023-05-26 2023-05-27 Outpatient LIBERTAD, AMIR [facility] CAR [id number] [facility] 16:42:00 12:29:00 2023-05-26 2023-05-27 Outpatient Libertad, Amir [facility] [id number] 16:42:00 12:29:00 2023-05-24 2023-05-25 Outpatient [facility] [id number] Memoria 12:17:00 04:59:00 [place] 00 [facility] 2023-05-24 2023-05-25 Outpatient [facility] [id number] Memoria 12:17:00 04:59:00 [place] 00 [facility] 2023-05-24 2023-05-24 Outpatient LIBERTAD, AMIR [facility] CAR [id number] [facility] 07:17:00 23:59:00 00 2023-05-24 2023-05-24 Outpatient Libertad, Amir [facility] [id number] 07:17:00 23:59:00 00 2023-05-01 2023-05-01 Outpatient LUCY BOOGIE [facility] [id number] [facility] 10:30:00 10:54:08 LUCY CUEVAS y [facility] 2023-05-01 2023-05-01 Office Lucy Cuevas [facility] [id number] Univers 10:30:00 10:54:08 Visit Candy HEALTH 350.1.13.10 [place] [id number] [address] OFFICE [facility] 2023-05-01 2023-05-01 Telephone Lucy Cuevas [facility] [id number] Univers 00:00:00 00:00:00 Candy HEALTH 350.1.13.10 [place] [id number] [address] OFFICE [facility] 2023-04-20 2023-04-20 Outpatient R MAC LEWIS [facility] [id number] Univers 11:20:00 11:20:00 MAC LEWIS ity [facility] 2023-04-15 2023-04-15 Telephone [facility] [id number] Univers 00:00:00 00:00:00 Lico GARCIA 350.1.13.10 it[place] [id number] [address] 2023-04-13 2023-04-13 Telephone [facility] [id number] Univers 00:00:00 00:00:00 Lico YOTON 350.1.13.10 it[place] [id number] [address] 2023-04-11 2023-04-11 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 10 [place] [facility] [id number] [address] 2023-04-11 2023-04-11 Outpatient R DANNIELLE CHRISTINA [facility] [id number] Univers 13:00:00 13:00:00 MINISTERIOCYCYDNEYSERGEYEDENILSONEdgar ity of [facility] 2023-04-11 2023-04-11 Orders Doctor ANEL [id number] [id number] Univers 00:00:00 00:00:00 Only Unassigned, VITALY 350.1.13.10 ity of [place] [facility] 4.2.7.2.686 Herman as [id number] [facility] [address] [place] 2023-03-29 2023-03-29 Telephone [facility] [id number] Univers 00:00:00 00:00:00 Lico GARCIA 350.1.13.10 [facility] [place] [id number] Tn dicmo NAL [address] [place] [address] 2023-03-29 2023-03-29 [facility] [id number] Univers 00:00:00 00:00:00 Lico GARCIA 350.1.13.10 [facility] [place] [id number] [address] 2023-03-20 2023-03-20 Outpatient R [facility] [id number] Univers 15:20:00 16:49:15 LICO mart[address] o f [facility] 2023-03-20 2023-03-20 Office [facility] 1.2.840.114 [id number] Univers 15:20:00 16:49:15 Visit Lico GARCIA 350.1.13.10 it[place] of [place] [id number] Tn dicmo NAL [address] [place] [address] 2023-03-20 2023-03-20 Orders Doctor ANEL 1.2.840.114 [id number] Univers 00:00:00 00:00:00 Only Unassigned, VITALY 350.1.13.10 ity of [facility] [facility] 4.2.7.2.686 Herman as [id number] [address] 2023-02-02 2023-02-02 Orders Doctor ANEL 1.2.840.114 [id number] Univers 00:00:00 00:00:00 Only Unassigned, VITALY 350.1.13.10 ity of [facility] 4.2.7.2.686 Herman as [id number] [place] [address] [place] 2023-01-31 2023-01-31 (TEL) STLMLC STLMLC [id number] Co mmon 00:00:00 00:00:00 [facility] [place] 2023-01-24 2023-01-24 OFFICE STLMLC STLMLC [id number] Co mmon 00:00:00 00:00:00 VISIT [facility] PT [facility] LEVEL 4 [facility] 2022-12-23 2022-12-23 (TEL) STLMLC STLMLC [id number] Co mmon 00:00:00 00:00:00 [facility] 2022-10-27 2022-10-27 (TEL) STLMLC STLMLC [id number] Co mmon 00:00:00 00:00:00 [place] 2022-08-31 2022-08-31 OFFICE STLMLC STLMLC [id number] Co mmon 00:00:00 00:00:00 VISIT EST Spir PT LEVEL 3 [facility] 2022-08-30 2022-08-30 (TEL) STLMLC STLMLC [id number] Co mmon 00:00:00 00:00:00 [facility] 2022-08-29 2022-08-29 Outpatient SFA SFA [id number] Stef 15:26:21 15:26:21 [id number] F Mohinder 2022-08-29 2022-08-29 Outpatient [id number] 00:00:00 00:00:00 Visit [id number] 2022-08-10 2022-08-10 (TEL) STLMLC STLMLC [id number] Co m[facility] 00:00:00 00:00:00 [facility] 2022-08-10 2022-08-10 (TEL) STLMLC STLMLC [id number] Co mmon 00:00:00 00:00:00 [facility] 2022-08-10 2022-08-10 (TEL) STLMLC STLMLC [id number] Co mmon 00:00:00 00:00:00 [facility] 2022-08-10 2022-08-10 OFFICE STLMLC STLMLC [id number] Co mmon 00:00:00 00:00:00 VISIT EST Spir it PT LEVEL 3 [facility] 2022-07-20 2022-07-20 (TEL) STLMLC STLMLC [id number] Co mmon 00:00:00 00:00:00 [facility] 2022-06-29 2022-06-29 (TEL) STLMLC STLMLC [id number] Co mmon 00:00:00 00:00:00 [facility] 2022-06-22 2022-06-22 OFFICE STLMLC STLMLC [id number] Co mmon 00:00:00 00:00:00 VISIT EST Spir it PT LEVEL 3 [facility] 2022-06-20 2022-06-20 (TEL) STLMLC STLMLC [id number] Co mmon 00:00:00 00:00:00 [facility] 2022-06-03 2022-06-03 OFFICE STLMLC STLMLC [id number] Co mmon 00:00:00 00:00:00 VISIT EST Spir it PT LEVEL 3 [facility] 2022-05-16 2022-05-16 (TEL) STLMLC STLMLC [id number] Co mmon 00:00:00 00:00:00 [facility] 2022-05-16 2022-05-16 OFFICE STLMLC STLMLC [id number] Co mmon 00:00:00 00:00:00 VISIT EST Spir it PT LEVEL 3 [facility] 2022-04-27 2022-04-27 (TEL) STLMLC STLMLC [id number] Co mmon 00:00:00 00:00:00 [facility] 2022-04-26 2022-04-26 (TEL) STLMLC STLMLC [id number] Co mmon 00:00:00 00:00:00 [facility] 2022-04-26 2022-04-26 OFFICE STLMLC STLMLC [id number] Co mmon 00:00:00 00:00:00 VISIT EST Spir it PT LEVEL 3 - [facility] 2022-04-20 2022-04-20 Outpatient [id number] 00:00:00 00:00:00 Visit [id number] 2022-03-30 2022-03-30 OFFICE STLMLC STLMLC [id number] Co mmon 00:00:00 00:00:00 VISIT [facility] PT - CHI LEVEL 4 [facility] 2022-02-14 2022-02-14 (TEL) STLMLC STLMLC [id number] Co mmon 00:00:00 00:00:00 [facility] 2022-01-27 2022-01-27 OFFICE STLMLC STLMLC [id number] Co mmon 00:00:00 00:00:00 VISIT EST Spir it PT LEVEL 3 - [facility] 2022-01-26 2022-01-26 (TEL) STLMLC STLMLC [id number] Co mmon 00:00:00 00:00:00 [facility] 2022-01-18 2022-01-18 (TEL) STLMLC STLMLC [id number] Co mmon 00:00:00 00:00:00 [facility] 2022-01-05 2022-01-05 OFFICE STLMLC STLMLC [id number] Co mmon 00:00:00 00:00:00 VISIT NEW Spir it PT LEVEL 3 - [facility] 2021-12-28 2021-12-28 OFFICE STLMLC STLMLC [id number] Co mmon 00:00:00 00:00:00 VISIT [facility] PT - CHI LEVEL 4 [facility] 2021-11-15 2021-11-15 (TEL) STLMLC STLMLC [id number] Co mmon 00:00:00 00:00:00 [facility] 2021-11-11 2021-11-11 (TEL) STLMLC STLMLC [id number] Co mmon 00:00:00 00:00:00 [facility]I [facility] 2021-09-28 2021-09-28 OFFICE STLMLC STLMLC [id number] Co mmon 00:00:00 00:00:00 VISIT [facility] PT - CHI LEVEL 4 [facility] 2021-08-27 2021-08-27 (TEL) STLMLC STLMLC [id number] Co mmon 00:00:00 00:00:00 [facility] 2021-08-04 2021-08-04 (TEL) STLMLC STLMLC [id number] Co mmon 00:00:00 00:00:00 [facility] 2021-08-02 2021-08-02 OFFICE STLMLC STLMLC [id number] Co mmon 00:00:00 00:00:00 VISIT [facility] PT - CHI LEVEL 4 [facility] 2021-07-22 2021-07-22 Outpatient Vanesa Cheung HCAPM RADI LA0 [id number] [facility] 08:00:00 08:00:00 63 [facility] 2021-07-03 2021-07-03 [facility] [id number] Univers 19:47:00 21:16:00 [id number] [id number] [place] [id number] [place] 2021-07-03 2021-07-03 Emergency X [facility] ERT [id number] Univers 19:47:00 19:47:00 ity [facility] 2021-06-07 2021-06-07 Outpatient STLMLC STLMLC [id number] Common 00:00:00 00:00:00 [facility] 2021-05-06 2021-05-06 Outpatient STLMLC STLMLC [id number] Common 00:00:00 00:00:00 [facility] 2021-04-28 2021-04-28 Outpatient STLMLC STLMLC [id number] Common 00:00:00 00:00:00 [facility] 2021-04-27 2021-04-27 Outpatient STLMLC STLMLC [id number] Common 00:00:00 00:00:00 [facility] 2021-03-15 2021-03-15 Outpatient STLMLC STLMLC [id number] Common 00:00:00 00:00:00 [facility] 2021-01-04 2021-01-04 Outpatient STLMLC STLMLC [id number] Common 00:00:00 00:00:00 [facility] 2020-11-03 2020-11-03 Outpatient STLMLC STLMLC [id number] Common 00:00:00 00:00:00 [facility] 2020-08-03 2020-08-03 Outpatient STLMLC STLMLC [id number] Common 00:00:00 00:00:00 [facility] 2020-05-04 2020-05-04 [id number] Common 10:10:00 10:10:[address] [facility] 2020-05-01 2020-05-01 [facility] [id number] Common 09:40:00 09:40:00 [place] [address] [facility] 2020-02-19 2020-02-19 [facility] [id number] Common 16:06:00 16:06:00 t [facility] [address] [facility] 2019-12-12 2019-12-12 [facility] [id number] Common 15:41:00 15:41:[address] [facility] 2019-09-16 2019-09-16 [facility] [id number] Common 14:40:00 14:40:[address] [facility] 2019-08-15 2019-08-15 [facility] [id number] Common 09:27:00 09:27:[address] [facility] 2019-08-12 2019-08-12 [facility] [id number] Common 09:00:00 09:00:[address] [facility] 2019-07-31 2019-07-31 [facility] [id number] Common 11:46:00 11:46:[address] [facility] 2019-07-29 2019-07-29 [facility] [id number] Common 09:40:00 09:40:[address] [facility] 2019-06-02 2019-06-02 [facility] [id number] Common 09:38:00 09:38:00 t Urgent Ur[facility] Clinic [facility] 2019-05-31 2019-05-31 [facility] [id number] Common 11:30:00 11:30:00 t Urgent [facility] Clinic [facility] 2018-01-19 2018-01-19 [facility] [id number] Common 08:11:00 08:11:[address] [facility] 2018-01-18 2018-01-18 [facility] [id number] Common 10:15:00 10:15:[address] [facility] 2017-12-26 2017-12-26 [facility] [id number] Common 09:30:00 09:30:[address] [facility] 2008-10-21 2008-10-21 Outpatient [facility] [id number] Univers 00:00:00 11:14:[address] [facility] Results Test Description Test Time Test Comments Results Result Comments Source CHEMISTRY 2023-05-27 11:57:00 Test Item Value Reference Range Interpretation Comme nts Glucose Lvl (test code = Glucose Lvl) 113 70-99 [facility]AoqpmrvOEPWMHALD4050-90-04 11:57:00 Test Item Value Reference Range Interpretation Comments BUN (test code = BUN) 8 7-22 [facility] HospitalIicczmmVSFTXZJAG6917-70-89 11:57:00 Test Item Value Reference Range Interpretation Comments Creatinine Lvl (test code = Creatinine 0.80 0.50-1.40 Lvl) [facility] HospitalKtyzsgtEDFUYFEDC7478-94-02 11:57:00 Test Item Value Reference Range Interpretation Comments Sodium Lvl (test code = Sodium Lvl) 141 135-145 [facility] HospitalIulcpwzNZKIGYRFP1723-42-67 11:57:00 Test Item Value Reference Range Interpretation Comments Potassium Lvl (test code = Potassium 4.1 3.5-5.1 Lvl) [facility] HospitalVxhynkeVPTIQJAPO9750-56-85 11:57:00 Test Item Value Reference Range Interpretation Comments Chloride Lvl (test code = Chloride Lvl) 110 95-109 [facility] HospitalGoqoxbyKWPBDHDJC8290-55-28 11:57:00 Test Item Value Reference Range Interpretation Comments CO2 (test code = CO2) 26 24-32 [facility] HospitalGkqliwbCQNXFPAFS1934-25-54 11:57:00 Test Item Value Reference Range Interpretation Comments Calcium Lvl (test code = Calcium Lvl) 8.9 8.5-10.5 [facility] HospitalCjjzbsnXXHRAMDOA3974-56-78 11:57:00 Test Item Value Reference Range Interpretation Comments AGAP (test code = AGAP) 9.1 10.0-20.0 [facility] HospitalHedlnrbVTMYJTBLQ5296-09-65 11:57:00 Test Item Value Reference Range Interpretation Comments eGFR (test code = eGFR) 91 [facility] HospitalOwjzyuoWUYLTEQOD0806-41-97 11:57:00 Test Item Value Reference Range Interpretation Comments Magnesium Lvl (test code = Magnesium 2.6 1.8-2.4 Lvl) [facility]olla[facility]UBXWHUTAOZ0835-24-50 11:57:00 Test Item Value Reference Range Interpretation Comments WBC X 10x3 (test code = WBC X 10x3) 9.8 3.7-10.4 [facility]ExfwvguHBIISYNHXG6844-97-42 11:57:00 Test Item Value Reference Range Interpretation Comments RBC X 10x6 (test code = RBC X 10x6) 4.37 4.20-5.40 [facility] CenterZuqskyrYSFTMHVBWO8138-47-73 11:57:00 Test Item Value Reference Range Interpretation Comments Hgb (test code = Hgb) 11.3 12.0-16.0 [place] [address]-09-02 11:57:00 Test Item Value Reference Range Interpretation Comments Hct (test code = Hct) 35.0 36.0-48.0 [facility] CenterWeeujgcJVVEITTNVE5916-94-92 11:57:00 Test Item Value Reference Range Interpretation Comments MCV (test code = MCV) 80.0 80.0-98.0 [place] 715353-09-02 11:57:00 Test Item Value Reference Range Interpretation Comments MCH (test code = MCH) 25.8 pg 27.0-31.0 [place] 715353-09-02 11:57:00 Test Item Value Reference Range Interpretation Comments MCHC (test code = MCHC) 32.2 32.0-36.0 [facility] CenterXhdhhvjAJCJHFBCFO1868-75-04 11:57:00 Test Item Value Reference Range Interpretation Comments RDW (test code = RDW) 15.8 11.5-14.5 [facility] CenterSevyvuxKSMLATHCQF4993-35-34 11:57:00 Test Item Value Reference Range Interpretation Comments Platelet (test code = Platelet) 378 133-450 [facility] CenterHfvyyitURUXXERZMT7895-96-93 11:57:00 Test Item Value Reference Range Interpretation Comments MPV (test code = MPV) 8.1 7.4-10.4 [place] [address]-09-02 11:57:00 Test Item Value Reference Range Interpretation Comments Segs (test code = Segs) 70.7 45.0-75.0 [place] [address]-09-02 11:57:00 Test Item Value Reference Range Interpretation Comments Lymphocytes (test code = Lymphocytes) 22.0 20.0-40.0 [place] [address]-09-02 11:57:00 Test Item Value Reference Range Interpretation Comments Monocytes (test code = Monocytes) 6.3 2.0-12.0 [place] 715353-09-02 11:57:00 Test Item Value Reference Range Interpretation Comments Basophils (test code = Basophils) 1.0 <=1.0 [facility] CenterEdjqqijGLCDHKZCBD9735-42-11 11:57:00 Test Item Value Reference Range Interpretation Comments Neutrophils # (test code = Neutrophils 7.0 1.5-8.1 #) [facility] CenterYxhxersGDRTVACMPT3361-81-23 11:57:00 Test Item Value Reference Range Interpretation Comments Lymphocytes # (test code = Lymphocytes 2.2 1.0-5.5 #) [facility] CenterYmprrwrTJQVEYUQMS5087-32-96 11:57:00 Test Item Value Reference Range Interpretation Comments Monocytes # (test code = Monocytes #) 0.6 <=0.8 [place] [address]-09-02 11:57:00 Test Item Value Reference Range Interpretation Comments Basophils # (test code = Basophils #) 0.1 <=0.2 [facility] HospitalJrqpbxgKUPISNZED4288-91-94 11:57:00 Test Item Value Reference Range Interpretation Comments Glucose Lvl (test code = Glucose Lvl) 113 70-99 [facility] HospitalPcszoltZBVSDZAHP9180-45-76 11:57:00 Test Item Value Reference Range Interpretation Comments BUN (test code = BUN) 8 7-22 [place] [address]-09-02 11:57:00 Test Item Value Reference Range Interpretation Comments Creatinine Lvl (test code = Creatinine 0.80 0.50-1.40 Lvl) [facility] HospitalLhcezcaMGLANGUCL0899-84-24 11:57:00 Test Item Value Reference Range Interpretation Comments Sodium Lvl (test code = Sodium Lvl) 141 135-145 [facility] HospitalJydmshfVFRAGJUIC3919-23-60 11:57:00 Test Item Value Reference Range Interpretation Comments Potassium Lvl (test code = Potassium 4.1 3.5-5.1 Lvl) [facility] HospitalZyseentUCGBGYEQS5246-74-42 11:57:00 Test Item Value Reference Range Interpretation Comments Chloride Lvl (test code = Chloride Lvl) 110 95-109 [facility] HospitalDzepowfVQHLRJCDG1234-33-54 11:57:00 Test Item Value Reference Range Interpretation Comments CO2 (test code = CO2) 26 24-32 [facility] HospitalOpzinvsBYVUCPKQC8357-86-78 11:57:00 Test Item Value Reference Range Interpretation Comments Calcium Lvl (test code = Calcium Lvl) 8.9 8.5-10.5 [place] 651793-09-02 11:57:00 Test Item Value Reference Range Interpretation Comments AGAP (test code = AGAP) 9.1 10.0-20.0 [facility] HospitalSconsneRAVIIRLPJ1524-85-24 11:57:00 Test Item Value Reference Range Interpretation Comments eGFR (test code = eGFR) 91 [facility] HospitalYixkcgrEKHIKOWZC2575-88-51 11:57:00 Test Item Value Reference Range Interpretation Comments Magnesium Lvl (test code = Magnesium 2.6 1.8-2.4 Lvl) [facility] CenterKzfxzggIXXBGJCITK0892-61-35 11:57:00 Test Item Value Reference Range Interpretation Comments WBC X 10x3 (test code = WBC X 10x3) 9.8 3.7-10.4 [place] 715353-09-02 11:57:00 Test Item Value Reference Range Interpretation Comments RBC X 10x6 (test code = RBC X 10x6) 4.37 4.20-5.40 [facility] CenterTsevyszCXURZLUMTE5939-91-13 11:57:00 Test Item Value Reference Range Interpretation Comments Hgb (test code = Hgb) 11.3 12.0-16.0 [place] 715353-09-02 11:57:00 Test Item Value Reference Range Interpretation Comments Hct (test code = Hct) 35.0 36.0-48.0 [facility] CenterDypdwvfEVHKKXUTNX5627-55-03 11:57:00 Test Item Value Reference Range Interpretation Comments MCV (test code = MCV) 80.0 80.0-98.0 [place] 715353-09-02 11:57:00 Test Item Value Reference Range Interpretation Comments MCH (test code = MCH) 25.8 pg 27.0-31.0 [facility] CenterZkzxixtWZGEXEVANM0933-32-90 11:57:00 Test Item Value Reference Range Interpretation Comments MCHC (test code = MCHC) 32.2 32.0-36.0 [place] [address]-09-02 11:57:00 Test Item Value Reference Range Interpretation Comments RDW (test code = RDW) 15.8 11.5-14.5 [place] [address]-09-02 11:57:00 Test Item Value Reference Range Interpretation Comments Platelet (test code = Platelet) 378 133-450 [facility] CenterKdvxaukOWCOZLUEOQ6780-76-84 11:57:00 Test Item Value Reference Range Interpretation Comments MPV (test code = MPV) 8.1 7.4-10.4 [place] 715353-09-02 11:57:00 Test Item Value Reference Range Interpretation Comments Segs (test code = Segs) 70.7 45.0-75.0 [place] [address]-09-02 11:57:00 Test Item Value Reference Range Interpretation Comments Lymphocytes (test code = Lymphocytes) 22.0 20.0-40.0 [place] [address]-09-02 11:57:00 Test Item Value Reference Range Interpretation Comments Monocytes (test code = Monocytes) 6.3 2.0-12.0 [place] [address]-09-02 11:57:00 Test Item Value Reference Range Interpretation Comments Basophils (test code = Basophils) 1.0 <=1.0 [place] [address]-09-02 11:57:00 Test Item Value Reference Range Interpretation Comments Neutrophils # (test code = Neutrophils 7.0 1.5-8.1 #) [facility] CenterRsmdlnySBTMSPKNQS7917-45-43 11:57:00 Test Item Value Reference Range Interpretation Comments Lymphocytes # (test code = Lymphocytes 2.2 1.0-5.5 #) [facility] CenterTakeoyaXJKTJBQGBY1789-62-94 11:57:00 Test Item Value Reference Range Interpretation Comments Monocytes # (test code = Monocytes #) 0.6 <=0.8 [place] [address]-09-02 11:57:00 Test Item Value Reference Range Interpretation Comments Basophils # (test code = Basophils #) 0.1 <=0.2 [place] [address]-09-02 11:57:00 Test Item Value Reference Range Interpretation Comments Glucose Lvl (test code = Glucose Lvl) 113 [facility] HospitalSvbcgcpLNBFTDEOH1366-90-74 11:57:00 Test Item Value Reference Range Interpretation Comments BUN (test code = BUN) 8 04-15 [facility] HospitalFqgiwfmQRJHAETJS8471-81-38 11:57:00 Test Item Value Reference Range Interpretation Comments Creatinine Lvl (test code = Creatinine 0.80 0.50-1.40 Lvl) [facility] HospitalBanlxzmCBCROCIMS4165-62-11 11:57:00 Test Item Value Reference Range Interpretation Comments Glucose Lvl (test code = Glucose Lvl) 113 70- [facility] HospitalGuaebblVCWYZMEOV3838-36-87 11:57:00 Test Item Value Reference Range Interpretation Comments BUN (test code = BUN) 8 7-22 [facility] HospitalWypxjlbFIBOCXFHR6565-94-51 11:57:00 Test Item Value Reference Range Interpretation Comments Creatinine Lvl (test code = Creatinine 0.80 0.50-1.40 Lvl) [facility] HospitalWrmyvfgZPXTSQQID9966-87-16 11:57:00 Test Item Value Reference Range Interpretation Comments Sodium Lvl (test code = Sodium Lvl) 141 135-145 [facility] HospitalTmgmwnrAUMVHRUMA7151-81-90 11:57:00 Test Item Value Reference Range Interpretation Comments Potassium Lvl (test code = Potassium 4.1 3.5-5.1 Lvl) [facility] HospitalWsdnrmsSNGNBZYKD0454-34-26 11:57:00 Test Item Value Reference Range Interpretation Comments Sodium Lvl (test code = Sodium Lvl) 141 135-145 [place] 651793-09-02 11:57:00 Test Item Value Reference Range Interpretation Comments Chloride Lvl (test code = Chloride Lvl) 110 95-109 [facility] HospitalBbwhimoYYTSOCGTJ7994-48-77 11:57:00 Test Item Value Reference Range Interpretation Comments CO2 (test code = CO2) 26 24-32 [facility] HospitalCvspiofSQANDUEWY3519-88-36 11:57:00 Test Item Value Reference Range Interpretation Comments Calcium Lvl (test code = Calcium Lvl) 8.9 8.5-10.5 [facility] HospitalCfedyufGDZFXCOFH8633-78-40 11:57:00 Test Item Value Reference Range Interpretation Comments AGAP (test code = AGAP) 9.1 10.0-20.0 [facility] HospitalVileasrVFJHKRFGF4878-95-22 11:57:00 Test Item Value Reference Range Interpretation Comments eGFR (test code = eGFR) 91 [place] [address]-09-02 11:57:00 Test Item Value Reference Range Interpretation Comments Magnesium Lvl (test code = Magnesium 2.6 1.8-2.4 Lvl) [facility] CenterBekmgzwIGQWNMBDQV0236-31-57 11:57:00 Test Item Value Reference Range Interpretation Comments WBC X 10x3 (test code = WBC X 10x3) 9.8 3.7-10.4 [facility] CenterMwfsuomADMPINQXBI3085-88-06 11:57:00 Test Item Value Reference Range Interpretation Comments RBC X 10x6 (test code = RBC X 10x6) 4.37 4.20-5.40 [facility] CenterAefqwdtHDTYTBQYFC8070-44-63 11:57:00 Test Item Value Reference Range Interpretation Comments Hgb (test code = Hgb) 11.3 12.0-16.0 [facility] CenterKfzknrwRZVVEYKXZH4989-91-56 11:57:00 Test Item Value Reference Range Interpretation Comments Hct (test code = Hct) 35.0 36.0-48.0 [facility] HospitalIyaopuqAEZCQZKAF6722-47-41 11:57:00 Test Item Value Reference Range Interpretation Comments Potassium Lvl (test code = Potassium 4.1 3.5-5.1 Lvl) [facility] CenterCodpvviDITIYEWYZY6950-20-64 11:57:00 Test Item Value Reference Range Interpretation Comments MCV (test code = MCV) 80.0 80.0-98.0 [facility] CenterDnofxpgTIPTASUXPP7726-66-01 11:57:00 Test Item Value Reference Range Interpretation Comments MCH (test code = MCH) 25.8 pg 27.0-31.0 [facility] CenterKdilahdVKTIXTITQW0568-22-11 11:57:00 Test Item Value Reference Range Interpretation Comments MCHC (test code = MCHC) 32.2 32.0-36.0 [facility] CenterGitzntwGYYEDVCGIA1320-96-08 11:57:00 Test Item Value Reference Range Interpretation Comments RDW (test code = RDW) 15.8 11.5-14.5 [facility] CenterRevhzlfUCPZUHTMSN1330-44-95 11:57:00 Test Item Value Reference Range Interpretation Comments Platelet (test code = Platelet) 378 133-450 [facility] CenterTpjstynYYFUDWLJUM7641-54-34 11:57:00 Test Item Value Reference Range Interpretation Comments MPV (test code = MPV) 8.1 7.4-10.4 [facility] CenterCrwmcqfVKKENMRMVD6482-57-48 11:57:00 Test Item Value Reference Range Interpretation Comments Segs (test code = Segs) 70.7 45.0-75.0 [facility] CenterAvkvxjzPFTRFDECRU5608-58-71 11:57:00 Test Item Value Reference Range Interpretation Comments Lymphocytes (test code = Lymphocytes) 22.0 20.0-40.0 [facility] CenterAmcbliiZFIJTVIWCX5739-21-37 11:57:00 Test Item Value Reference Range Interpretation Comments Monocytes (test code = Monocytes) 6.3 2.0-12.0 [facility] CenterPozoinlSBLKWFTLZV0956-88-86 11:57:00 Test Item Value Reference Range Interpretation Comments Basophils (test code = Basophils) 1.0 <=1.0 [facility] HospitalIzyuyglNHYJHAZXD0854-05-80 11:57:00 Test Item Value Reference Range Interpretation Comments Chloride Lvl (test code = Chloride Lvl) 110 95-109 [facility] CenterYrymxgtBNVXFWMLFQ9672-00-40 11:57:00 Test Item Value Reference Range Interpretation Comments Neutrophils # (test code = Neutrophils 7.0 1.5-8.1 #) [facility] CenterYzsabuqVXPFFRGXZD4306-42-60 11:57:00 Test Item Value Reference Range Interpretation Comments Lymphocytes # (test code = Lymphocytes 2.2 1.0-5.5 #) [facility] CenterWrkgwwgBWJLXMJYFZ9900-21-80 11:57:00 Test Item Value Reference Range Interpretation Comments Monocytes # (test code = Monocytes #) 0.6 <=0.8 [facility] CenterXsnefrjPDYPNRKQPN2714-24-77 11:57:00 Test Item Value Reference Range Interpretation Comments Basophils # (test code = Basophils #) 0.1 <=0.2 [facility] HospitalUldwzlySTDDFUDNO8164-34-67 11:57:00 Test Item Value Reference Range Interpretation Comments CO2 (test code = CO2) 26 24-32 [facility] HospitalRjnmsvyMRZTOSWJR9346-36-75 11:57:00 Test Item Value Reference Range Interpretation Comments Calcium Lvl (test code = Calcium Lvl) 8.9 8.5-10.5 [facility] HospitalEjlrvreXPMIOBTQO3909-55-58 11:57:00 Test Item Value Reference Range Interpretation Comments AGAP (test code = AGAP) 9.1 10.0-20.0 [facility] HospitalXjabpuuEBCVNPYXW8977-94-20 11:57:00 Test Item Value Reference Range Interpretation Comments eGFR (test code = eGFR) 91 [facility] HospitalDrfkotpUNWHADIWJ8534-47-90 11:57:00 Test Item Value Reference Range Interpretation Comments Glucose Lvl (test code = Glucose Lvl) 113 70-99 [facility] HospitalVxngrlxCJRBRZOMI7160-91-09 11:57:00 Test Item Value Reference Range Interpretation Comments BUN (test code = BUN) 8 7-22 [facility] HospitalCsxdykfITVVVZBZS2073-71-10 11:57:00 Test Item Value Reference Range Interpretation Comments Creatinine Lvl (test code = Creatinine 0.80 0.50-1.40 Lvl) [facility] HospitalKrggzeiOHMXSHJZT5508-43-63 11:57:00 Test Item Value Reference Range Interpretation Comments Sodium Lvl (test code = Sodium Lvl) 141 135-145 [facility] HospitalFavqtkpBFGNXSLXW6671-35-03 11:57:00 Test Item Value Reference Range Interpretation Comments Potassium Lvl (test code = Potassium 4.1 3.5-5.1 Lvl) [facility] HospitalTnoiythDYPLLVFQK3225-20-89 11:57:00 Test Item Value Reference Range Interpretation Comments Chloride Lvl (test code = Chloride Lvl) 110 95-109 [facility] HospitalZxcdmzbIKDLKEVQC5236-58-72 11:57:00 Test Item Value Reference Range Interpretation Comments CO2 (test code = CO2) 26 24-32 [facility] HospitalAkysshsGNQEJJIFF3905-91-00 11:57:00 Test Item Value Reference Range Interpretation Comments Magnesium Lvl (test code = Magnesium 2.6 1.8-2.4 Lvl) [facility] HospitalGajilizPZILNIQIE6656-15-78 11:57:00 Test Item Value Reference Range Interpretation Comments Calcium Lvl (test code = Calcium Lvl) 8.9 8.5-10.5 [facility] HospitalVfqnzoqSTUGLWSYA8939-09-78 11:57:00 Test Item Value Reference Range Interpretation Comments AGAP (test code = AGAP) 9.1 10.0-20.0 [facility] HospitalIyuqwraZTPBLQUWH8390-16-58 11:57:00 Test Item Value Reference Range Interpretation Comments eGFR (test code = eGFR) 91 [facility] HospitalNqqlwiuCWARPMBLR0617-19-76 11:57:00 Test Item Value Reference Range Interpretation Comments Magnesium Lvl (test code = Magnesium 2.6 1.8-2.4 Lvl) [facility] CenterEnqrgwoPPCWBALHQU7525-19-33 11:57:00 Test Item Value Reference Range Interpretation Comments WBC X 10x3 (test code = WBC X 10x3) 9.8 3.7-10.4 [place] 715353-09-02 11:57:00 Test Item Value Reference Range Interpretation Comments RBC X 10x6 (test code = RBC X 10x6) 4.37 4.20-5.40 [facility] [facility]zyjjnmJXQXYYQXXP0935-40-66 11:57:00 Test Item Value Reference Range Interpretation Comments Hgb (test code = Hgb) 11.3 12.0-16.0 [facility]JndswtjUHZOBMAIAR7693-54-27 11:57:00 Test Item Value Reference Range Interpretation Comments Hct (test code = Hct) 35.0 36.0-48.0 [facility] CenterPjhrnioBDTVVRKCMX5938-47-58 11:57:00 Test Item Value Reference Range Interpretation Comments MCV (test code = MCV) 80.0 80.0-98.0 [facility] CenterCvizqufLIJCMSQIXG6421-53-44 11:57:00 Test Item Value Reference Range Interpretation Comments MCH (test code = MCH) 25.8 pg 27.0-31.0 [facility] CenterWtqdlwwEMCKNYXSYZ0372-82-26 11:57:00 Test Item Value Reference Range Interpretation Comments WBC X 10x3 (test code = WBC X 10x3) 9.8 3.7-10.4 [facility] CenterWppkvbfLQKSHLOSIF9603-85-46 11:57:00 Test Item Value Reference Range Interpretation Comments MCHC (test code = MCHC) 32.2 32.0-36.0 [place] 715353-09-02 11:57:00 Test Item Value Reference Range Interpretation Comments RDW (test code = RDW) 15.8 11.5-14.5 [place] 715353-09-02 11:57:00 Test Item Value Reference Range Interpretation Comments Platelet (test code = Platelet) 378 133-450 [facility] CenterZycdxopPSHVVHQHWB7026-39-74 11:57:00 Test Item Value Reference Range Interpretation Comments MPV (test code = MPV) 8.1 7.4-10.4 [place] [address]-09-02 11:57:00 Test Item Value Reference Range Interpretation Comments Segs (test code = Segs) 70.7 45.0-75.0 [place] [address]-09-02 11:57:00 Test Item Value Reference Range Interpretation Comments Lymphocytes (test code = Lymphocytes) 22.0 20.0-40.0 [place] [address]-09-02 11:57:00 Test Item Value Reference Range Interpretation Comments Monocytes (test code = Monocytes) 6.3 2.0-12.0 [place] [address]-09-02 11:57:00 Test Item Value Reference Range Interpretation Comments Basophils (test code = Basophils) 1.0 <=1.0 [place] 715353-09-02 11:57:00 Test Item Value Reference Range Interpretation Comments Neutrophils # (test code = Neutrophils 7.0 1.5-8.1 #) [facility] CenterPybnsobPOSVMBIANK9434-89-94 11:57:00 Test Item Value Reference Range Interpretation Comments Lymphocytes # (test code = Lymphocytes 2.2 1.0-5.5 #) [facility] CenterSfrvduwKJBMNDIJHN7659-59-10 11:57:00 Test Item Value Reference Range Interpretation Comments RBC X 10x6 (test code = RBC X 10x6) 4.37 4.20-5.40 [place] 715353-09-02 11:57:00 Test Item Value Reference Range Interpretation Comments Monocytes # (test code = Monocytes #) 0.6 <=0.8 [place] [address]-09-02 11:57:00 Test Item Value Reference Range Interpretation Comments Basophils # (test code = Basophils #) 0.1 <=0.2 [facility] CenterWcrklrpWZYQQFJWLN9478-97-98 11:57:00 Test Item Value Reference Range Interpretation Comments Hgb (test code = Hgb) 11.3 12.0-16.0 [facility] CenterFauiywxGPBSINKXLZ4101-64-90 11:57:00 Test Item Value Reference Range Interpretation Comments Hct (test code = Hct) 35.0 36.0-48.0 [facility] CenterHanjudnWRXWALHOKF3222-81-46 11:57:00 Test Item Value Reference Range Interpretation Comments MCV (test code = MCV) 80.0 80.0-98.0 [facility] CenterEpdqflcNRXAWFDZNR8212-49-43 11:57:00 Test Item Value Reference Range Interpretation Comments MCH (test code = MCH) 25.8 pg 27.0-31.0 [place] 715353-09-02 11:57:00 Test Item Value Reference Range Interpretation Comments MCHC (test code = MCHC) 32.2 32.0-36.0 [place] 715353-09-02 11:57:00 Test Item Value Reference Range Interpretation Comments RDW (test code = RDW) 15.8 11.5-14.5 [place] 715353-09-02 11:57:00 Test Item Value Reference Range Interpretation Comments Platelet (test code = Platelet) 378 133-450 [facility] CenterCafusbySQUHLDOWVZ8255-50-07 11:57:00 Test Item Value Reference Range Interpretation Comments MPV (test code = MPV) 8.1 7.4-10.4 [place] [address]-09-02 11:57:00 Test Item Value Reference Range Interpretation Comments Segs (test code = Segs) 70.7 45.0-75.0 [place] [address]-09-02 11:57:00 Test Item Value Reference Range Interpretation Comments Lymphocytes (test code = Lymphocytes) 22.0 20.0-40.0 [place] [address]-09-02 11:57:00 Test Item Value Reference Range Interpretation Comments Monocytes (test code = Monocytes) 6.3 2.0-12.0 [place] [address]-09-02 11:57:00 Test Item Value Reference Range Interpretation Comments Basophils (test code = Basophils) 1.0 <=1.0 [place] [address]-09-02 11:57:00 Test Item Value Reference Range Interpretation Comments Neutrophils # (test code = Neutrophils 7.0 1.5-8.1 #) [facility] CenterUmglefsNOQOCLIFDB0529-93-60 11:57:00 Test Item Value Reference Range Interpretation Comments Lymphocytes # (test code = Lymphocytes 2.2 1.0-5.5 #) [facility] CenterZwkwycfUBFCKEQJIX0179-27-21 11:57:00 Test Item Value Reference Range Interpretation Comments Monocytes # (test code = Monocytes #) 0.6 <=0.8 [place] [address]-09-02 11:57:00 Test Item Value Reference Range Interpretation Comments Basophils # (test code = Basophils #) 0.1 <=0.2 [place] [address]-09-02 11:57:00 Test Item Value Reference Range Interpretation Comments Glucose Lvl (test code = Glucose Lvl) 113 70-99 [facility] HospitalLuzhgkhOHVPKZWJF8914-38-51 11:57:00 Test Item Value Reference Range Interpretation Comments BUN (test code = BUN) 8 7-22 [facility] HospitalZkkbrofJTLPCRGBM3979-84-45 11:57:00 Test Item Value Reference Range Interpretation Comments Creatinine Lvl (test code = Creatinine 0.80 0.50-1.40 Lvl) [facility] HospitalArjmlumHNKDBCENR7327-25-79 11:57:00 Test Item Value Reference Range Interpretation Comments Sodium Lvl (test code = Sodium Lvl) 141 135-145 [facility] HospitalWinnniiIYSKPIRMA6832-46-57 11:57:00 Test Item Value Reference Range Interpretation Comments Potassium Lvl (test code = Potassium 4.1 3.5-5.1 Lvl) [facility] HospitalRorjjkvLHLSOKJOE3185-41-60 11:57:00 Test Item Value Reference Range Interpretation Comments Chloride Lvl (test code = Chloride Lvl) 110 95-109 [place] 651793-09-02 11:57:00 Test Item Value Reference Range Interpretation Comments CO2 (test code = CO2) 26 24-32 [place] [address]-09-02 11:57:00 Test Item Value Reference Range Interpretation Comments Calcium Lvl (test code = Calcium Lvl) 8.9 8.5-10.5 [place] 651793-09-02 11:57:00 Test Item Value Reference Range Interpretation Comments AGAP (test code = AGAP) 9.1 10.0-20.0 [place] [address]-09-02 11:57:00 Test Item Value Reference Range Interpretation Comments eGFR (test code = eGFR) 91 [facility] HospitalKoeresxLRJVTMYCW5113-26-44 11:57:00 Test Item Value Reference Range Interpretation Comments Magnesium Lvl (test code = Magnesium 2.6 1.8-2.4 Lvl) [facility] CenterBbyugchOKTOSIPYDF8437-11-40 11:57:00 Test Item Value Reference Range Interpretation Comments WBC X 10x3 (test code = WBC X 10x3) 9.8 3.7-10.4 [place] [address]-09-02 11:57:00 Test Item Value Reference Range Interpretation Comments RBC X 10x6 (test code = RBC X 10x6) 4.37 4.20-5.40 [place] [address]-09-02 11:57:00 Test Item Value Reference Range Interpretation Comments Hgb (test code = Hgb) 11.3 12.0-16.0 [place] [address]-09-02 11:57:00 Test Item Value Reference Range Interpretation Comments Hct (test code = Hct) 35.0 36.0-48.0 [place] [address]-09-02 11:57:00 Test Item Value Reference Range Interpretation Comments MCV (test code = MCV) 80.0 80.0-98.0 [place] [address]-09-02 11:57:00 Test Item Value Reference Range Interpretation Comments MCH (test code = MCH) 25.8 pg 27.0-31.0 [place] 715353-09-02 11:57:00 Test Item Value Reference Range Interpretation Comments MCHC (test code = MCHC) 32.2 32.0-36.0 [facility] CenterWdixefsCMRYKQAKDK4063-16-40 11:57:00 Test Item Value Reference Range Interpretation Comments RDW (test code = RDW) 15.8 11.5-14.5 [place] 715353-09-02 11:57:00 Test Item Value Reference Range Interpretation Comments Platelet (test code = Platelet) 378 133-450 [facility] CenterYexosltYUIDUZUGPI1571-68-60 11:57:00 Test Item Value Reference Range Interpretation Comments MPV (test code = MPV) 8.1 7.4-10.4 [facility] CenterElrlukoFMEYYDIPHD8398-13-67 11:57:00 Test Item Value Reference Range Interpretation Comments Segs (test code = Segs) 70.7 45.0-75.0 [place] [address]-09-02 11:57:00 Test Item Value Reference Range Interpretation Comments Lymphocytes (test code = Lymphocytes) 22.0 20.0-40.0 [place] [address]-09-02 11:57:00 Test Item Value Reference Range Interpretation Comments Monocytes (test code = Monocytes) 6.3 2.0-12.0 [place] [address]-09-02 11:57:00 Test Item Value Reference Range Interpretation Comments Basophils (test code = Basophils) 1.0 <=1.0 [place] [address]-09-02 11:57:00 Test Item Value Reference Range Interpretation Comments Neutrophils # (test code = Neutrophils 7.0 1.5-8.1 #) [facility] CenterRouyoxlYJLGNGJOVR1116-37-76 11:57:00 Test Item Value Reference Range Interpretation Comments Lymphocytes # (test code = Lymphocytes 2.2 1.0-5.5 #) [place] [address]-09-02 11:57:00 Test Item Value Reference Range Interpretation Comments Monocytes # (test code = Monocytes #) 0.6 <=0.8 [place] [address]-09-02 11:57:00 Test Item Value Reference Range Interpretation Comments Basophils # (test code = Basophils #) 0.1 <=0.2 [facility] CenterDkxetgzGSNUIRMCJK4212-37-33 21:30:00 Test Item Value Reference Range Interpretation Comments POC Activated Clotting Time (test code 232 s = POC Activated Clotting Time) [facility] CenterLxwguigGKIHNPHOQI6245-36-27 21:30:00 Test Item Value Reference Range Interpretation Comments POC Activated Clotting Time (test code 232 s = POC Activated Clotting Time) [facility] CenterLltyaweQYELUAMWGT0515-48-37 21:30:00 Test Item Value Reference Range Interpretation Comments POC Activated Clotting Time (test code 232 s = POC Activated Clotting Time) [facility] CenterKrzpprlGFZEHAQDXK5757-94-28 21:30:00 Test Item Value Reference Range Interpretation Comments POC Activated Clotting Time (test code 232 s = POC Activated Clotting Time) [facility] CenterSisqiurUOLAGAARDD7476-79-24 21:30:00 Test Item Value Reference Range Interpretation Comments POC Activated Clotting Time (test code 232 s = POC Activated Clotting Time) [facility] CenterTcowpdbVOWOPGPDVO4190-25-49 21:30:00 Test Item Value Reference Range Interpretation Comments POC Activated Clotting Time (test code 232 s = POC Activated Clotting Time) [facility] EZCQABK9693-96-40 17:00:00 Test Item Value Reference Range Interpretation Comments RBC product (test code Product available = RBC product) (05/26/23 12:00 PM) [facility] IUDKADG6630-11-42 17:00:00 Test Item Value Reference Range Interpretation Comments RBC product (test code Product available = RBC product) (05/26/23 12:00 PM) [facility] WVQPKBR3600-96-28 17:00:00 Test Item Value Reference Range Interpretation Comments RBC product (test code Product available = RBC product) (05/26/23 12:00 PM) [facility] [id number] 17:00:00 Test Item Value Reference Range Interpretation Comments RBC product (test code Product available = RBC product) (05/26/23 12:00 PM) [facility] [id number] 17:00:00 Test Item Value Reference Range Interpretation Comments RBC product (test code Product available = RBC product) (05/26/23 12:00 PM) [facility]20[facility]-09-01 17:00:00 Test Item Value Reference Range Interpretation Comments RBC product (test code Product available = RBC product) (05/26/23 12:00 PM) [facility] HospitalChttbtdPQMZWPYBO3825-96-58 15:07:00 Test Item Value Reference Range Interpretation Comments U Preg (test code = U Negative (05/26/23 10:07 Preg) AM) [facility] HospitalQnxoqmfXAAJZKQWS3481-64-20 15:07:00 Test Item Value Reference Range Interpretation Comments U Preg (test code = U Negative (05/26/23 10:07 Preg) AM) [facility] HospitalAayrduoZLMCHDPAY0416-99-60 15:07:00 Test Item Value Reference Range Interpretation Comments U Preg (test code = U Negative (05/26/23 10:07 Preg) AM) [facility] HospitalTfnvisiGXGKVXRZG6464-61-39 15:07:00 Test Item Value Reference Range Interpretation Comments U Preg (test code = U Negative (05/26/23 10:07 Preg) AM) [facility] HospitalJklrebiQMIYKKLVX5535-33-80 15:07:00 Test Item Value Reference Range Interpretation Comments U Preg (test code = U Negative (05/26/23 10:07 Preg) AM) [facility] HospitalIwxoqccLHXJVDELR3226-94-69 15:07:00 Test Item Value Reference Range Interpretation Comments U Preg (test code = U Negative (05/26/23 10:07 Preg) AM) [facility] HospitalUbhnxriXIFXLGNBG5697-18-36 14:56:00 Test Item Value Reference Range Interpretation Comments POC Sodium (test code = POC Sodium) 142 135-145 [facility] HospitalJmhkwidNESHDUPAD7737-45-29 14:56:00 Test Item Value Reference Range Interpretation Comments POC Potassium (test code = POC 3.9 3.5-5.1 Potassium) [facility] HospitalQwxhfnbPIUDCDFRG0384-94-92 14:56:00 Test Item Value Reference Range Interpretation Comments POC Chloride (test code = POC Chloride) 105 95-109 [facility] HospitalRyvghtcWDVYKFTFI4292-69-80 14:56:00 Test Item Value Reference Range Interpretation Comments POC Carbon Dioxide (test code = POC 25 24-32 Carbon Dioxide) [facility] HospitalVannpbkPHPBEXBEX2930-84-98 14:56:00 Test Item Value Reference Range Interpretation Comments POC BUN (test code = POC BUN) 7 7-22 [facility] HospitalEwpgcbrJLWFBCFCY7793-12-76 14:56:00 Test Item Value Reference Range Interpretation Comments POC Creatinine (test code = POC 0.7 0.5-1.4 Creatinine) [facility] HospitalJchburiYWVWDGRUB7325-15-80 14:56:00 Test Item Value Reference Range Interpretation Comments POC Glucose (test code = POC Glucose) 89 70-99 [place] [address]-08-30 14:56:00 Test Item Value Reference Range Interpretation Comments POC Ion Ca (test code = POC Ion Ca) 1.22 1.05-1.25 [facility] HospitalBlwbnyzZLPMXCNOQ4914-05-39 14:56:00 Test Item Value Reference Range Interpretation Comments POC Hemoglobin (test code = POC 13.3 12.0-16.0 Hemoglobin) [facility] HospitalWqdmkplAMKQIHYPK0960-10-57 14:56:00 Test Item Value Reference Range Interpretation Comments POC Hematocrit (test code = POC 39.0 36.0-48.0 Hematocrit) [facility] HospitalCbyvlufYHWVMNQQB3714-17-60 14:56:00 Test Item Value Reference Range Interpretation Comments POC AGAP (test code = POC AGAP) 16.0 10.0-20.0 [facility] HospitalNlsnjgfYEQCGLJXL8395-64-14 14:56:00 Test Item Value Reference Range Interpretation Comments eGFR (test code = eGFR) 107 [facility] HospitalPbajeesVUCEKFRBP7949-85-68 14:56:00 Test Item Value Reference Range Interpretation Comments POC Sodium (test code = POC Sodium) 142 135-145 [place] 651793-08-30 14:56:00 Test Item Value Reference Range Interpretation Comments POC Potassium (test code = POC 3.9 3.5-5.1 Potassium) [facility] HospitalUtecvraFMRRAZZHN7324-79-91 14:56:00 Test Item Value Reference Range Interpretation Comments POC Chloride (test code = POC Chloride) 105 95-109 [place] [address]-08-30 14:56:00 Test Item Value Reference Range Interpretation Comments POC Carbon Dioxide (test code = POC 25 24-32 Carbon Dioxide) [facility] HospitalAywhktsGZNODDJZF1654-83-71 14:56:00 Test Item Value Reference Range Interpretation Comments POC BUN (test code = POC BUN) 7 7-22 [place] 651793-08-30 14:56:00 Test Item Value Reference Range Interpretation Comments POC Creatinine (test code = POC 0.7 0.5-1.4 Creatinine) [facility] HospitalOwrjjxjYULXZTAOJ8140-43-89 14:56:00 Test Item Value Reference Range Interpretation Comments POC Glucose (test code = POC Glucose) 89 70-99 [place] 651793-08-30 14:56:00 Test Item Value Reference Range Interpretation Comments POC Ion Ca (test code = POC Ion Ca) 1.22 1.05-1.25 [place] [address]-08-30 14:56:00 Test Item Value Reference Range Interpretation Comments POC Hemoglobin (test code = POC 13.3 12.0-16.0 Hemoglobin) [facility] HospitalGxsxausAQMXJPYUQ6458-02-59 14:56:00 Test Item Value Reference Range Interpretation Comments POC Hematocrit (test code = POC 39.0 36.0-48.0 Hematocrit) [facility] HospitalCmeczdeXVJXGCLZT3668-61-00 14:56:00 Test Item Value Reference Range Interpretation Comments POC AGAP (test code = POC AGAP) 16.0 10.0-20.0 [place] 651793-08-30 14:56:00 Test Item Value Reference Range Interpretation Comments eGFR (test code = eGFR) 107 [facility] HospitalAaucbmuIGAYUTRAJ7809-73-70 14:56:00 Test Item Value Reference Range Interpretation Comments POC Sodium (test code = POC Sodium) 142 135-145 [facility] HospitalKivtbsfBXHTNECUN0699-73-09 14:56:00 Test Item Value Reference Range Interpretation Comments POC Potassium (test code = POC 3.9 3.5-5.1 Potassium) [facility] HospitalSpepxqiLBXNJHQWC0113-93-11 14:56:00 Test Item Value Reference Range Interpretation Comments POC Chloride (test code = POC Chloride) 105 95-109 [place] 651793-08-30 14:56:00 Test Item Value Reference Range Interpretation Comments POC Carbon Dioxide (test code = POC 25 24-32 Carbon Dioxide) [place] [address]-08-30 14:56:00 Test Item Value Reference Range Interpretation Comments POC BUN (test code = POC BUN) 7 7-22 [place] 651793-08-30 14:56:00 Test Item Value Reference Range Interpretation Comments POC Creatinine (test code = POC 0.7 0.5-1.4 Creatinine) [facility] HospitalHfltcppZQOEDEPSS1181-11-46 14:56:00 Test Item Value Reference Range Interpretation Comments POC Glucose (test code = POC Glucose) 89 70-99 [facility] HospitalTpgsuevVLRAQKHQS6436-78-86 14:56:00 Test Item Value Reference Range Interpretation Comments POC Ion Ca (test code = POC Ion Ca) 1.22 1.05-1.25 [facility] HospitalLvtpyegTAORIVTMS8414-76-60 14:56:00 Test Item Value Reference Range Interpretation Comments POC Hemoglobin (test code = POC 13.3 12.0-16.0 Hemoglobin) [facility] HospitalTgvmmapHNZHIGDUP5472-74-14 14:56:00 Test Item Value Reference Range Interpretation Comments POC Hematocrit (test code = POC 39.0 36.0-48.0 Hematocrit) [facility] HospitalZodrqraRVSQLSKXF1472-39-85 14:56:00 Test Item Value Reference Range Interpretation Comments POC AGAP (test code = POC AGAP) 16.0 10.0-20.0 [facility] HospitalBvwxiowYHDUKGDQI4000-19-20 14:56:00 Test Item Value Reference Range Interpretation Comments eGFR (test code = eGFR) 107 [facility] HospitalVwqkqfmKKDEMJIUB6914-86-69 14:56:00 Test Item Value Reference Range Interpretation Comments POC Sodium (test code = POC Sodium) 142 135-145 [place] 651793-08-30 14:56:00 Test Item Value Reference Range Interpretation Comments POC Potassium (test code = POC 3.9 3.5-5.1 Potassium) [facility] HospitalOybivofNPWCHBJMU5773-88-07 14:56:00 Test Item Value Reference Range Interpretation Comments POC Chloride (test code = POC Chloride) 105 95-109 [facility] HospitalSmhwjsjKCQJSCMXA7593-50-65 14:56:00 Test Item Value Reference Range Interpretation Comments POC Carbon Dioxide (test code = POC 25 24-32 Carbon Dioxide) [facility] HospitalSloontpVNVBWVYRI3997-44-57 14:56:00 Test Item Value Reference Range Interpretation Comments POC BUN (test code = POC BUN) 7 7-22 [facility] HospitalTemgnxcTAIEESEZU0182-73-29 14:56:00 Test Item Value Reference Range Interpretation Comments POC Creatinine (test code = POC 0.7 0.5-1.4 Creatinine) [facility] HospitalWmpzdqjDDLYDPGVP1266-37-13 14:56:00 Test Item Value Reference Range Interpretation Comments POC Glucose (test code = POC Glucose) 89 70-99 [facility] HospitalOwddgiwPWJKZNMFC4977-13-36 14:56:00 Test Item Value Reference Range Interpretation Comments POC Ion Ca (test code = POC Ion Ca) 1.22 1.05-1.25 [facility] HospitalNyhmtpmRJGQACCPD9372-12-20 14:56:00 Test Item Value Reference Range Interpretation Comments POC Hemoglobin (test code = POC 13.3 12.0-16.0 Hemoglobin) [facility] HospitalPohjetmUWWESXVPM8449-32-69 14:56:00 Test Item Value Reference Range Interpretation Comments POC Hematocrit (test code = POC 39.0 36.0-48.0 Hematocrit) [facility] HospitalLqooageZDWQGERKQ5976-94-97 14:56:00 Test Item Value Reference Range Interpretation Comments POC AGAP (test code = POC AGAP) 16.0 10.0-20.0 [place] [address]-08-30 14:56:00 Test Item Value Reference Range Interpretation Comments eGFR (test code = eGFR) 107 [facility] HospitalBhlkocwOXXNBKJPP6684-81-35 14:56:00 Test Item Value Reference Range Interpretation Comments POC Sodium (test code = POC Sodium) 142 135-145 [facility] HospitalJfoekdmMZYCTVASO3677-46-03 14:56:00 Test Item Value Reference Range Interpretation Comments POC Potassium (test code = POC 3.9 3.5-5.1 Potassium) [facility] HospitalBvbxiqzIGQFOXOMJ9989-58-89 14:56:00 Test Item Value Reference Range Interpretation Comments POC Chloride (test code = POC Chloride) 105 95-109 [facility] HospitalTjmeqdzNYZVXLMZH9214-51-17 14:56:00 Test Item Value Reference Range Interpretation Comments POC Carbon Dioxide (test code = POC 25 24-32 Carbon Dioxide) [facility] HospitalFzomakhBKCZBGTKU1991-38-91 14:56:00 Test Item Value Reference Range Interpretation Comments POC BUN (test code = POC BUN) 7 7-22 [place] 651793-08-30 14:56:00 Test Item Value Reference Range Interpretation Comments POC Creatinine (test code = POC 0.7 0.5-1.4 Creatinine) [facility] HospitalKusgezuCAOWYGSAX5567-21-73 14:56:00 Test Item Value Reference Range Interpretation Comments POC Glucose (test code = POC Glucose) 89 70-99 [place] 651793-08-30 14:56:00 Test Item Value Reference Range Interpretation Comments POC Ion Ca (test code = POC Ion Ca) 1.22 1.05-1.25 [facility] HospitalEvrqzaiNAIBGNZTJ9538-38-34 14:56:00 Test Item Value Reference Range Interpretation Comments POC Hemoglobin (test code = POC 13.3 12.0-16.0 Hemoglobin) [facility] HospitalZblnmwfKVWSNCHEO6385-92-76 14:56:00 Test Item Value Reference Range Interpretation Comments POC Hematocrit (test code = POC 39.0 36.0-48.0 Hematocrit) [facility] HospitalQkrsshmUUHCFTOGG0116-50-75 14:56:00 Test Item Value Reference Range Interpretation Comments POC AGAP (test code = POC AGAP) 16.0 10.0-20.0 [facility] HospitalIrrjzvzYHESFEWNM4585-05-72 14:56:00 Test Item Value Reference Range Interpretation Comments eGFR (test code = eGFR) 107 [facility] HospitalYxtdwknFQBNTCOYL4753-62-67 14:56:00 Test Item Value Reference Range Interpretation Comments POC Sodium (test code = POC Sodium) 142 135-145 [facility] HospitalJoxufmnBSUZOYJAH9036-14-88 14:56:00 Test Item Value Reference Range Interpretation Comments POC Potassium (test code = POC 3.9 3.5-5.1 Potassium) [facility] HospitalZbpzzeeJIGGKJDWI2526-87-60 14:56:00 Test Item Value Reference Range Interpretation Comments POC Chloride (test code = POC Chloride) 105 95-109 [facility] HospitalBlzfmyzGWRRCJATP6094-47-70 14:56:00 Test Item Value Reference Range Interpretation Comments POC Carbon Dioxide (test code = POC 25 24-32 Carbon Dioxide) [facility] HospitalEahmcgcEOFGRSSNQ7714-49-85 14:56:00 Test Item Value Reference Range Interpretation Comments POC BUN (test code = POC BUN) 7 7-22 [facility] HospitalTkuvsxlBTOBXOYUK0988-05-96 14:56:00 Test Item Value Reference Range Interpretation Comments POC Creatinine (test code = POC 0.7 0.5-1.4 Creatinine) [facility] HospitalExeolmpHVQTXXJGB0245-27-54 14:56:00 Test Item Value Reference Range Interpretation Comments POC Glucose (test code = POC Glucose) 89 70-99 [facility] HospitalSzmeggcMRIMIMVUI3923-23-94 14:56:00 Test Item Value Reference Range Interpretation Comments POC Ion Ca (test code = POC Ion Ca) 1.22 1.05-1.25 [facility] HospitalHrmwhchNYNKOSIHZ9767-42-29 14:56:00 Test Item Value Reference Range Interpretation Comments POC Hemoglobin (test code = POC 13.3 12.0-16.0 Hemoglobin) [facility] HospitalUxxbleyRPSRBCYRH4829-10-11 14:56:00 Test Item Value Reference Range Interpretation Comments POC Hematocrit (test code = POC 39.0 36.0-48.0 Hematocrit) [facility] HospitalRydjzwrJIMXRBHNY0384-23-53 14:56:00 Test Item Value Reference Range Interpretation Comments POC AGAP (test code = POC AGAP) 16.0 10.0-20.0 [facility] HospitalRebcwkvHQFOLIDFH0752-97-43 14:56:00 Test Item Value Reference Range Interpretation Comments eGFR (test code = eGFR) [facility] [place] [facility] KKHQVOG2596-68-28 14:33:00 Test Item Value Reference Range Interpretation Comments ABO/Rh (test code = ABO/Rh) A POS [facility] TempleMarathon Patent GroupA [place] [facility] SNSMPNZ2173-44-35 14:33:00 Test Item Value Reference Range Interpretation Comments Antibody Scrn (test Negative (05/24/23 9:33 code = Antibody Scrn) AM) [facility] HospitalWmswgdgBLASZKGZH4170-49-18 14:33:00 Test Item Value Reference Range Interpretation Comments Total Protein (test code = Total 8.5 6.4-8.4 Protein) [facility] HospitalVgpbhecXVGMGNAIB1487-80-05 14:33:00 Test Item Value Reference Range Interpretation Comments Albumin Lvl (test code = Albumin Lvl) 3.2 3.5-5.0 [facility] HospitalBsnlykhKWBRXIZAI5348-83-14 14:33:00 Test Item Value Reference Range Interpretation Comments ALT (test code = ALT) 28 <=65 [facility] HospitalJmrjkyrSAEIYEQUP3194-13-62 14:33:00 Test Item Value Reference Range Interpretation Comments AST (test code = AST) 19 <=37 [facility] HospitalCcuiwzgTENSXOZLM3547-21-19 14:33:00 Test Item Value Reference Range Interpretation Comments Alk Phos (test code = Alk Phos) 51 39-136 [facility] HospitalPajmqvbOHRWQDLGN4526-57-21 14:33:00 Test Item Value Reference Range Interpretation Comments Bili Total (test code = Bili Total) 0.5 0.2-1.3 [facility] HospitalZdrvtstQPNDANUOC8114-74-56 14:33:00 Test Item Value Reference Range Interpretation Comments Bili Direct (test code = Bili Direct) 0.1 <=0.3 [facility] HospitalImiroxsNUUMCJXSY4883-37-49 14:33:00 Test Item Value Reference Range Interpretation Comments Bili Indirect (test code = Bili 0.4 <=1.0 Indirect) [facility] TempleMnviulqLWASWOUUR2221-05-43 14:33:00 Test Item Value Reference Range Interpretation Comments Globulin (test code = Globulin) 5.3 2.7-4.2 [facility] TempleDuozpjnJGWVTVWJR9222-79-72 14:33:00 Test Item Value Reference Range Interpretation Comments A/G Ratio (test code = A/G Ratio) 0.6 1 0.7-1.6 [facility] [employer] ZSLIAIB6705-05-86 14:33:00 Test Item Value Reference Range Interpretation Comments ABO/Rh (test code = ABO/Rh) A POS [facility] [employer] [facility] AJZQXVD1277-90-20 14:33:00 Test Item Value Reference Range Interpretation Comments Antibody Scrn (test Negative (05/24/23 9:33 code = Antibody Scrn) AM) [facility] TempleWmfnwalMFKEETVOK4509-99-04 14:33:00 Test Item Value Reference Range Interpretation Comments Total Protein (test code = Total 8.5 6.4-8.4 Protein) [facility] TempleDrfjesjYVRNYNZLT9663-69-80 14:33:00 Test Item Value Reference Range Interpretation Comments Albumin Lvl (test code = Albumin Lvl) 3.2 3.5-5.0 [facility] TempleFganguaPONKJCEPV4480-06-95 14:33:00 Test Item Value Reference Range Interpretation Comments ALT (test code = ALT) 28 <=65 [facility] TempleCcnyzuaKXJQKTMZK0222-44-09 14:33:00 Test Item Value Reference Range Interpretation Comments AST (test code = AST) 19 <=37 [facility] TempleHafjgfiNBOFJKUTO7894-46-84 14:33:00 Test Item Value Reference Range Interpretation Comments Alk Phos (test code = Alk Phos) 51 39-136 [facility] TempleKlomoxxIGKDNKWNI1035-25-94 14:33:00 Test Item Value Reference Range Interpretation Comments Bili Total (test code = Bili Total) 0.5 0.2-1.3 [facility] TempleOobwgyxCXPBSXHBL8318-87-33 14:33:00 Test Item Value Reference Range Interpretation Comments Bili Direct (test code = Bili Direct) 0.1 <=0.3 [facility] TempleIdbkkzbCHWNUQECG5032-01-34 14:33:00 Test Item Value Reference Range Interpretation Comments Bili Indirect (test code = Bili 0.4 <=1.0 Indirect) [facility] TempleJugsjgxVQFSDFEMS3574-40-93 14:33:00 Test Item Value Reference Range Interpretation Comments Globulin (test code = Globulin) 5.3 2.7-4.2 [facility] HospitalJaykffrUUQFKGHAA5384-44-29 14:33:00 Test Item Value Reference Range Interpretation Comments A/G Ratio (test code = A/G Ratio) 0.6 1 0.7-1.6 [facility] TempleZapa [facility] ZAQHQMC8069-10-68 14:33:00 Test Item Value Reference Range Interpretation Comments ABO/Rh (test code = ABO/Rh) A POS [facility] [employer] [facility] KOQDVSH3308-06-14 14:33:00 Test Item Value Reference Range Interpretation Comments Antibody Scrn (test Negative (05/24/23 9:33 code = Antibody Scrn) AM) [facility] TempleJsaolrbISJAOZKAM4697-95-97 14:33:00 Test Item Value Reference Range Interpretation Comments Total Protein (test code = Total 8.5 6.4-8.4 Protein) [facility] TempleDuvwrrhDBLDLRIQZ7526-27-61 14:33:00 Test Item Value Reference Range Interpretation Comments Albumin Lvl (test code = Albumin Lvl) 3.2 3.5-5.0 [facility] TempleEwkjklbIDSJZZPSI4983-94-03 14:33:00 Test Item Value Reference Range Interpretation Comments ALT (test code = ALT) 28 <=65 [facility] TempleNzhuzxgONOPTDVOC3143-78-51 14:33:00 Test Item Value Reference Range Interpretation Comments AST (test code = AST) 19 <=37 [facility] TempleFjsdxpsJNRMSMNGX2600-27-65 14:33:00 Test Item Value Reference Range Interpretation Comments Alk Phos (test code = Alk Phos) 51 39-136 [facility] TempleTbtpxcwWIPZJWHAJ5029-49-59 14:33:00 Test Item Value Reference Range Interpretation Comments Bili Total (test code = Bili Total) 0.5 0.2-1.3 [facility] TempleQjyadjtTLJIPRTVX7914-58-01 14:33:00 Test Item Value Reference Range Interpretation Comments Bili Direct (test code = Bili Direct) 0.1 <=0.3 [facility] TemplePfchlrdJWOVMBYQR7428-42-15 14:33:00 Test Item Value Reference Range Interpretation Comments Bili Indirect (test code = Bili 0.4 <=1.0 Indirect) [facility] KrvybcoTSPSDIBRL2450-20-97 14:33:00 Test Item Value Reference Range Interpretation Comments Globulin (test code = Globulin) 5.3 2.7-4.2 [facility] TempleVhcqofgHXTKHDBCE5715-20-29 14:33:00 Test Item Value Reference Range Interpretation Comments A/G Ratio (test code = A/G Ratio) 0.6 1 0.7-1.6 [facility] [employer] MGYCROR4746-07-34 14:33:00 Test Item Value Reference Range Interpretation Comments ABO/Rh (test code = ABO/Rh) A POS [facility] [employer] TGCOBOW1657-24-89 14:33:00 Test Item Value Reference Range Interpretation Comments Antibody Scrn (test Negative (05/24/23 9:33 code = Antibody Scrn) AM) [facility] TempleKoqtxfoENLCUROYX5743-79-38 14:33:00 Test Item Value Reference Range Interpretation Comments Total Protein (test code = Total 8.5 6.4-8.4 Protein) [facility] TempleIyssgzeGRAIAVUYU4670-77-26 14:33:00 Test Item Value Reference Range Interpretation Comments Albumin Lvl (test code = Albumin Lvl) 3.2 3.5-5.0 [facility] TempleFmifcrlAIIFHPVHK9861-81-07 14:33:00 Test Item Value Reference Range Interpretation Comments ALT (test code = ALT) 28 <=65 [facility] TempleYromagrEBPBRDZHY2263-35-83 14:33:00 Test Item Value Reference Range Interpretation Comments AST (test code = AST) 19 <=37 [facility] TempleQwidemuVSZYTYEZQ5024-54-58 14:33:00 Test Item Value Reference Range Interpretation Comments Alk Phos (test code = Alk Phos) 51 39-136 [facility] TempleBweqjzpRSXGHJCTM6907-31-96 14:33:00 Test Item Value Reference Range Interpretation Comments Bili Total (test code = Bili Total) 0.5 0.2-1.3 [facility] TempleNkoxkzdGOCSAULPU2508-80-90 14:33:00 Test Item Value Reference Range Interpretation Comments Bili Direct (test code = Bili Direct) 0.1 <=0.3 [facility] TempleCwfxmuoPVFVYFEZI4064-81-95 14:33:00 Test Item Value Reference Range Interpretation Comments Bili Indirect (test code = Bili 0.4 <=1.0 Indirect) [facility] XsnlwffTORPLOLIK4249-05-48 14:33:00 Test Item Value Reference Range Interpretation Comments Globulin (test code = Globulin) 5.3 2.7-4.2 [facility] TempleQjpqbjjLZPBXAQYF3493-13-44 14:33:00 Test Item Value Reference Range Interpretation Comments A/G Ratio (test code = A/G Ratio) 0.6 1 0.7-1.6 [facility] [employer] GDNDEXR2361-67-67 14:33:00 Test Item Value Reference Range Interpretation Comments ABO/Rh (test code = ABO/Rh) A POS [facility] [employer] KQMIYFZ4754-45-34 14:33:00 Test Item Value Reference Range Interpretation Comments Antibody Scrn (test Negative (05/24/23 9:33 code = Antibody Scrn) AM) [facility] TempleAahtucoUPVBUFMTG2936-51-70 14:33:00 Test Item Value Reference Range Interpretation Comments Total Protein (test code = Total 8.5 6.4-8.4 Protein) [facility] TempleXhqacklWBEULVSBE2275-33-32 14:33:00 Test Item Value Reference Range Interpretation Comments Albumin Lvl (test code = Albumin Lvl) 3.2 3.5-5.0 [facility] TempleEouamauCGYWEGEOC7226-34-70 14:33:00 Test Item Value Reference Range Interpretation Comments ALT (test code = ALT) 28 <=65 [facility] TempleYynhmbfKKQLMBDXB5424-08-89 14:33:00 Test Item Value Reference Range Interpretation Comments AST (test code = AST) 19 <=37 [facility] TempleTsdolfjEINIJIHRN8148-54-93 14:33:00 Test Item Value Reference Range Interpretation Comments Alk Phos (test code = Alk Phos) 51 39-136 [facility] TempleRtffvsmMPTKYGMAQ2766-39-12 14:33:00 Test Item Value Reference Range Interpretation Comments Bili Total (test code = Bili Total) 0.5 0.2-1.3 [facility] TempleHdzveolJKLKIDTVY2475-85-94 14:33:00 Test Item Value Reference Range Interpretation Comments Bili Direct (test code = Bili Direct) 0.1 <=0.3 [facility] TempleHswxaxdVLMVCXAKA6019-22-50 14:33:00 Test Item Value Reference Range Interpretation Comments Bili Indirect (test code = Bili 0.4 <=1.0 Indirect) [facility] TempleTfhdujjFTJCUPHFD5673-24-19 14:33:00 Test Item Value Reference Range Interpretation Comments Globulin (test code = Globulin) 5.3 2.7-4.2 [facility] TempleMljnkdoLJEYWGUQY5320-35-64 14:33:00 Test Item Value Reference Range Interpretation Comments A/G Ratio (test code = A/G Ratio) 0.6 1 0.7-1.6 [facility] [employer] [facility] UPEUJIC7026-27-76 14:33:00 Test Item Value Reference Range Interpretation Comments ABO/Rh (test code = ABO/Rh) A POS [facility] [employer] [facility] MKUNSAZ0120-42-62 14:33:00 Test Item Value Reference Range Interpretation Comments Antibody Scrn (test Negative (05/24/23 9:33 code = Antibody Scrn) AM) [facility] TempleEiuukatJMFKAUAXW0936-47-07 14:33:00 Test Item Value Reference Range Interpretation Comments Total Protein (test code = Total 8.5 6.4-8.4 Protein) [facility] TempleKdbpchuGMXCTZUOO8812-08-19 14:33:00 Test Item Value Reference Range Interpretation Comments Albumin Lvl (test code = Albumin Lvl) 3.2 3.5-5.0 [facility] TempleMkjilxxSYMJLHZAY3878-97-06 14:33:00 Test Item Value Reference Range Interpretation Comments ALT (test code = ALT) 28 <=65 [facility] TempleYiynbuhZNPGFKOVI6164-56-91 14:33:00 Test Item Value Reference Range Interpretation Comments AST (test code = AST) 19 <=37 [facility] TempleMhwhwfqYVVWUAMIX5439-88-31 14:33:00 Test Item Value Reference Range Interpretation Comments Alk Phos (test code = Alk Phos) 51 39-136 [facility] TempleGegayyoTMJKFAZVZ7533-81-91 14:33:00 Test Item Value Reference Range Interpretation Comments Bili Total (test code = Bili Total) 0.5 0.2-1.3 [facility] TempleCejllqaAVDMHYXBT9228-70-85 14:33:00 Test Item Value Reference Range Interpretation Comments Bili Direct (test code = Bili Direct) 0.1 <=0.3 [facility] TempleKlqqqweTMYTMJPYG9552-85-38 14:33:00 Test Item Value Reference Range Interpretation Comments Bili Indirect (test code = Bili 0.4 <=1.0 Indirect) [facility] TempleJpfdfbeJPCYEZGTK6968-44-64 14:33:00 Test Item Value Reference Range Interpretation Comments Globulin (test code = Globulin) 5.3 2.7-4.2 [facility] HospitalXtyfikmNRTFOSMAI1494-84-87 14:33:00 Test Item Value Reference Range Interpretation Comments A/G Ratio (test code = A/G Ratio) 0.6 1 0.7-1.6 [facility]RvemvqtRVGEGTEVCA6934-61-38 13:55:00 Test Item Value Reference Range Interpretation Comments PT (test code = PT) 13.5 s 12.0-14.7 [facility] CenterNfwafctXYBNWXVNMD5749-17-95 13:55:00 Test Item Value Reference Range Interpretation Comments INR (test code = INR) 1.03 1 0.85-1.17 [facility] CenterJirpmurUCHFSOJQAC6313-41-06 13:55:00 Test Item Value Reference Range Interpretation Comments PTT (test code = PTT) 26.1 s 22.9-35.8 [facility] CenterKrdirjdHLCLHCSPGM0139-57-94 13:55:00 Test Item Value Reference Range Interpretation Comments PT (test code = PT) 13.5 s 12.0-14.7 [facility] CenterBafckyyJSEJBJBEMC2883-35-03 13:55:00 Test Item Value Reference Range Interpretation Comments INR (test code = INR) 1.03 1 0.85-1.17 [facility] CenterWsycxvtDGYENWXMUM6596-26-43 13:55:00 Test Item Value Reference Range Interpretation Comments PTT (test code = PTT) 26.1 s 22.9-35.8 [facility] CenterYbtxkafONMTVZWJPR2108-58-30 13:55:00 Test Item Value Reference Range Interpretation Comments PT (test code = PT) 13.5 s 12.0-14.7 [facility] CenterWtprdpaRSSRJMNNXD7067-28-21 13:55:00 Test Item Value Reference Range Interpretation Comments INR (test code = INR) 1.03 1 0.85-1.17 [place] [address]-08-30 13:55:00 Test Item Value Reference Range Interpretation Comments PTT (test code = PTT) 26.1 s 22.9-35.8 [place] [address]-08-30 13:55:00 Test Item Value Reference Range Interpretation Comments PT (test code = PT) 13.5 s 12.0-14.7 [place] 715353-08-30 13:55:00 Test Item Value Reference Range Interpretation Comments INR (test code = INR) 1.03 1 0.85-1.17 [facility] CenterHiqmhbzLCOXRXTFSX1579-34-28 13:55:00 Test Item Value Reference Range Interpretation Comments PTT (test code = PTT) 26.1 s 22.9-35.8 [facility] CenterLnasupzPNJGBYOXGZ3451-83-94 13:55:00 Test Item Value Reference Range Interpretation Comments PT (test code = PT) 13.5 s 12.0-14.7 [facility] CenterVwuxzofTJPNUHPDBW4482-84-43 13:55:00 Test Item Value Reference Range Interpretation Comments INR (test code = INR) 1.03 1 0.85-1.17 [place] [address]-08-30 13:55:00 Test Item Value Reference Range Interpretation Comments PTT (test code = PTT) 26.1 s 22.9-35.8 [facility] CenterFxedegsZXVEQHSAMX0795-13-91 13:55:00 Test Item Value Reference Range Interpretation Comments PT (test code = PT) 13.5 s 12.0-14.7 [facility] CenterGjmlvgdCFYKYRRDRF1584-33-24 13:55:00 Test Item Value Reference Range Interpretation Comments INR (test code = INR) 1.03 1 0.85-1.17 [facility] CenterAfojjjeABVSLIMXEC3110-40-85 13:55:00 Test Item Value Reference Range Interpretation Comments PTT (test code = PTT) 26.1 s 22.9-35.8 [facility] CenterZgvzuoxSWSCUAWXMP0681-41-40 12:46:00 Test Item Value Reference Range Interpretation Comments Eosinophils (test code = Eosinophils) 1.1 <=4.0 [place] 715353-08-30 12:46:00 Test Item Value Reference Range Interpretation Comments Eosinophils # (test code = Eosinophils 0.1 <=0.5 #) [facility] CenterVybajtpLSDWZACMPH5659-44-56 12:46:00 Test Item Value Reference Range Interpretation Comments Eosinophils (test code = Eosinophils) 1.1 <=4.0 [place] [address]-08-30 12:46:00 Test Item Value Reference Range Interpretation Comments Eosinophils # (test code = Eosinophils 0.1 <=0.5 #) [facility] CenterOcvekatSWRVZMVDLF2299-18-29 12:46:00 Test Item Value Reference Range Interpretation Comments Eosinophils (test code = Eosinophils) 1.1 <=4.0 [facility] CenterYcmbegmUNXULFEZSL7554-51-35 12:46:00 Test Item Value Reference Range Interpretation Comments Eosinophils # (test code = Eosinophils 0.1 <=0.5 #) [facility] CenterKxpbzebKMXEQOAOLK0303-68-14 12:46:00 Test Item Value Reference Range Interpretation Comments Eosinophils (test code = Eosinophils) 1.1 <=4.0 [facility] CenterEpzxprgKAJONPKNUZ6163-96-58 12:46:00 Test Item Value Reference Range Interpretation Comments Eosinophils # (test code = Eosinophils 0.1 <=0.5 #) [facility] CenterWcveijqULCFZJCHXX2626-67-28 12:46:00 Test Item Value Reference Range Interpretation Comments Eosinophils (test code = Eosinophils) 1.1 <=4.0 [place] 715353-08-30 12:46:00 Test Item Value Reference Range Interpretation Comments Eosinophils # (test code = Eosinophils 0.1 <=0.5 #) [facility] CenterMsikhzbYGMNFNPJPX9687-78-48 12:46:00 Test Item Value Reference Range Interpretation Comments Eosinophils (test code = Eosinophils) 1.1 <=4.0 [facility] CenterKzfjjxbNOEXKTNDKU0408-28-21 12:46:00 Test Item Value Reference Range Interpretation Comments Eosinophils # (test code = Eosinophils 0.1 <=0.5 #) [facility]/YDI2066-32-03 07:26:55 Test Item Value Reference Interpretation Comments Range SARS-CoV-2 NEGATIVE SEE NOTE SARS-CoV-2 RNA NOT INTERPRETATION DETECTEDNegat papo (test code = 42780) results do not preclude SARS-C oV-2 infection [...] (test code = [place]OP[place] [address]) Ro Charito Sofia l-Time RT-PCR. The exp [...] provided by met hod given in report:https:// www.[employer]com/clinic ians/cl ient-communicat ions/ Alternatively, see downloadable PD F fact sheet at:https://www. [employer]/COVID-19-R T-PCR UNLESS OTHERWIS E INDICATED, ALL TESTING PERFORMED [facility], [facility]. [address] [place] [address] DIRECTOR: PRUDNECE SOLIS M.D. CLIA NUMBER [id number] CAP ACCREDITATION N O. [id number] SARS-CoV-2 (COVID-19) by RT-PCR (HIGH RISK)2021-12-10 00:00:00 Test Item Value Reference Range Interpretation Comments SARS-CoV-2 INTERPRETATION NEGATIVE (test code = 93798) SOURCE (test code = 61425) NASOPHARYNGEAL SARS-CoV-2 (COVID-19) by RT-PCR (HIGH RISK)2021-12-10 00:00:00 Test Item Value Reference Range Interpretation Comments SARS-CoV-2 INTERPRETATION NEGATIVE (test code = 23067) SOURCE (test code = 65646) NASOPHARYNGEAL SARS-CoV-2 (COVID-19) by RT-PCR (HIGH RISK)2021-12-10 00:00:00 Test Item Value Reference Range Interpretation Comments SARS-CoV-2 INTERPRETATION NEGATIVE (test code = 01213) SOURCE (test code = 55123) NASOPHARYNGEAL Lipid Panel w/ Chol/HDL Gwbas8346-57-33 00:00:00 Test Item Value Reference Range Interpretation Comments Cholesterol, Total (test code = 3-3) 186 100-199 Triglycerides (test code = 2571-8) 86 0-149 HDL Cholesterol (test code = 5-9) 59 >39 T. Chol/HDL Ratio (test code = 9830-1) 3.2 0.0-4.4 JOSÉ w/Reflex if Jalqhjdo6602-13-13 00:00:00 Test Item Value Reference Range Interpretation Comments JOSÉ Direct (test code = 8061-4) Negative Negative Comp. Metabolic Panel (14) ([facility])2021-08-02 00:00:00 Test Item Value Reference Range Interpretation Comments Glucose (test code = 2345-7) 75 65-99 BUN (test code = 3094-0) 10 6-24 Creatinine (test code = 2160-0) 0.74 0.57-1.00 eGFR If NonAfricn Am (test code = 97 >59 16020-0) eGFR If Africn Am (test code = 32204-9) 112 >59 BUN/Creatinine Ratio (test code = 14 06-17 3097-3) Sodium (test code = 2951-2) 141 134-144 Potassium (test code = 2823-3) 3.7 3.5-5.2 Chloride (test code = 2075-0) 102 96-106 Carbon Dioxide, Total (test code = -2028-05) Calcium (test code = 96148-8) 9.6 8.7-10.2 Protein, Total (test code = 2885-2) 8.8 6.0-8.5 Albumin (test code = 1751-7) 4.6 3.8-4.8 Globulin, Total (test code = 94935-0) 4.2 1.5-4.5 A/G Ratio (test code = 1759-0) 1.1 1.2-2.2 Bilirubin, Total (test code = 1974-2) 0.6 0.0-1.2 Alkaline Phosphatase (test code = 76 44-121 6768-6) AST (SGOT) (test code = 1920-8) 20 0-40 ALT (SGPT) (test code = 1742-6) 19 0-32 CBC With Differential/Snfdfeap4714-40-82 00:00:00 Test Item Value Reference Range Interpretation [...] Granulocytes (test code = 0 Not Estab. 69170-9) Immature Grans (Abs) (test code = 0.0 0.0-0.1 22496-9) NRBC (test code = 09077-6) Hematology Comments: (test code = 38862-6) Rheumatoid Arthritis Zijpqv0704-67-07 00:00:00 Test Item Value Reference Range Interpretation Comments Rheumatoid Factor (RF) (test code = <10.0 0.0-13.9 75700-7) C-Reactive Protein, Quant (CRP)2021-08-02 00:00:00 Test Item Value Reference Range Interpretation Comments C-Reactive Protein, Quant (test code = 13 0-10 1988-01) Vitamin D, 93-Elezqmm7001-03-08 00:00:00 Test Item Value Reference Range Interpretation Comments Vitamin D, 25-Hydroxy (test code = 24.0 30.0-100.0 1988-11) - CT ABD PELVIS W/XTMZ5789-65-12 09:50:00 [facility] : 1975 Sex: F Name: SHE FITZGERALD [facility] : 1975 Age/S: 46 / F [address] [place] Unit #: [id number] Loc: [place] [address] Phys: Vanesa Nunez MD Acct: [id number] Dis Date: Status: REG CLI PHONE #: [phone] Exam Date: 07/22/202118 FAX #: Reason: CROHNS DISEASE, UNSPECIFIED, WITHOUT COMPLICATI EXAMS: CPT: [id number] CT ABD PELVIS W/CONT 55863 HISTORY: CROHN'S DISEASE, UNSPECIFIED, WITHOUT COMPLICATIONS TECHNIQUE: [...] 1 Signed Report (CONTINUED) Name: SHE FITZGERALD [place] : 1975 Age/S: 46 / F [id number] [facility] [place] Unit #: [id number] Loc: [place] [address] Phys: Vanesa Nunez MD Acct: [id number] Dis Date: Status: REG CLI PHONE#: [phone] Exam Date: 07/22/2021917 FAX #: Reason: CROHNS DISEASE, UNSPECIFIED, WITHOUT COMPLICATI EXAMS: CPT: [id number] CT ABD PELVIS W/CONT 55764 (Continued) IMPRESSION: 1. There is mild diffuse [...] (0950) t.[id number].[id number] Orig Print D/T: S: 07/22/2021 (0997) PAGE 2 Signed KsqhnqVWNLZ-IDF3753 08:27:00 Test Item Value Reference Range Interpretation Comments ISTAT-BUN (test code = BUNP) 8 mg/dL 8-26 N BEDSIDE BUAKQCWFLL5103-26-27 08:27:00 Test Item Value Reference Range Interpretation Comments BEDSIDE CREATININE (test code = 0.6 mg/dL 0.6-1.3 N CREATBED) SARS-COV-2 (COVID19), NAAT [ADDED]2020-10-02 00:00:00 Test Item Value Reference Range Interpretation Comments SARS-CoV-2 INTERPRETATION (test NEGATIVE code = 18854) SOURCE (test code = 32493) NOT SPECIFIED SARS-COV-2 (COVID19), NAAT [ADDED]2020-10-02 00:00:00 Test Item Value Reference Range Interpretation Comments SARS-CoV-2 INTERPRETATION (test NEGATIVE code = 78042) SOURCE (test code = 85940) NOT SPECIFIED SARS-COV-2 (COVID19), NAAT [ADDED]2020-10-02 00:00:00 Test Item Value Reference Range Interpretation Comments SARS-CoV-2 INTERPRETATION (test NEGATIVE code = 17958) SOURCE (test code = [id number]) NOT SPECIFIED SARS-CoV-2 (COVID-19) by RT-PCR (HIGH RISK)2020-04-17 00:00:00 Test Item Value Reference Range Interpretation Comments SARS-CoV-2 INTERPRETATION (test NEGATIVE code = 89961) SOURCE (test code = 53819) NOT SPECIFIED SARS-CoV-2 (COVID-19) by RT-PCR (HIGH RISK)2020-04-17 00:00:00 Test Item Value Reference Range Interpretation Comments SARS-CoV-2 INTERPRETATION (test NEGATIVE code = 43137) SOURCE (test code = 95836) NOT SPECIFIED SARS-CoV-2 (COVID-19) by RT-PCR (HIGH RISK)2020-04-17 00:00:00 Test Item Value Reference Range Interpretation Comments SARS-CoV-2 INTERPRETATION (test NEGATIVE code = 14720) SOURCE (test code = 32967) NOT SPECIFIED POC, COVID 19 Antigen + Flu by SofiaPOC, COVID 19 Antigen + Flu by Jennifer
[2023-08-13] LABS: Absolute Lymphocytes (CBC) 3.1 K/uL (0.7-4.9); Hematocrit 33.2 % (36.0-45.0); Lymphocytes % 46.9 % (15.3-44.8); MCV 79.4 fL (80-100); MPV 8.1 fL (7.6-11.3); Platelets 297 thou/uL (152-406); RBC Red Blood Cell Count 4.18 M/uL (3.86-4.86)
[2023-08-13 00:10] LABS: Protime INR 1.12
[2023-08-13] MEDS ORDERED: ASPIRIN 81 MG CHEWABLE TABLET ONE (00:20)
[2023-08-13] MEDS ORDERED: KETOROLAC 30 MG/ML INJ ONE (00:20)
[2023-08-13 00:23] LABS: Magnesium 1.8 mg/dL (1.6-2.4); Potassium 3.2 mEq/L (3.5-5.1); Troponin High Sensitivity 8.7 pg/mL (<58.9)
--- NOTE | 2023-08-13 03:19 | ER ---
Nurse's Notes [facility] Name: Dori Guardado Age: 48 yrs Sex: Female : 1975 Arrival Date: 08/12/2023 Time: 23:12 Bed 9 Private MD: Diagnosis: Chest pain, unspecified;Palpitations Presentation: 08/12 23:21 Chief complaint: Patient states: SUDDEN ONSET OF CP, LEFT ANT CHEST WALL, RADIATES TO rv LEFT ARM, STABBING IN NATURE. DENIES SOB. Coronavirus screen: At this time, the client does not indicate any symptoms associated with coronavirus-19. Ebola Screen: No symptoms or risks identified at this time. Initial Sepsis Screen: Does the patient meet any 2 criteria? No. Patient's initial sepsis screen is negative. Does the patient have a suspected source of infection? No. Patient's initial sepsis screen is negative. Risk Assessment: Do you want to hurt yourself or someone else? Patient reports no desire to harm self or others. Onset of symptoms was August 12, 2023. 23:21 Method Of Arrival: Ambulatory 23:21 Acuity: KASH 2 rv Triage Assessment: 23:22 General: Appears comfortable, Behavior is calm, cooperative. Pain: Complains of pain in rv chest Pain radiates to left arm. Neuro: Level of Consciousness is awake, alert, obeys commands, Oriented to person, place, time, situation. Cardiovascular: Capillary refill < 3 seconds Patient's skin is warm and dry. Chest pain quality is stabbing, is located in left anterior chest wall radiates to left arm(s). Respiratory: Airway is patent Respiratory effort is even, unlabored. Respiratory: Denies shortness of breath. GI: No signs and/or symptoms were reported involving the gastrointestinal system. : No signs and/or symptoms were reported regarding the genitourinary system. Derm: Skin is intact. Musculoskeletal: Range of motion: intact in all extremities. Historical: - Allergies: 23:22 No Known Allergies; rv - PMHx: 23:22 Atrial Fib; bowel obstruction; Crohn's; Hypertension; rv - PSHx: 23:22 Appendectomy; Cholecystectomy; section; partial hysterectomy; rv - Immunization history:: Adult Immunizations up to date. - Social history:: Smoking status: Patient denies any tobacco usage or history of. Screenin:24 [facility] ED Fall Risk Assessment (Adult) History of falling in the last 3 months, rv including since admission No falls in past 3 months (0 pts) Score/Fall Risk Level 0 - 2 = Low Risk Oriented to surroundings. Abuse screen: Denies threats or abuse. Denies injuries from another. Nutritional screening: No deficits noted. Tuberculosis screening: No symptoms or risk factors identified. Assessment: 08/13 03:39 Reassessment: Patient and/or family updated on plan of care and expected duration. Pain rv level reassessed. Patient is alert, oriented x 3, equal unlabored respirations, skin warm/dry/pink. Pain: Denies pain. Vital Signs: 08/12 23:21 Pulse 67; Resp 16; Temp 98; Pulse Ox 100% ; Weight 126.1 kg; Height 5 ft. 3 in. ; rv 23:26 BP 157 / 93; rv 08/13 00:05 BP 141 / 91 LA Supine; Pulse 62; Resp 14; Pulse Ox 100% on R/A; kmf 00:10 BP 118 / 55 RA Supine (auto/lg); Pulse 65; Resp 15; Pulse Ox 100% on R/A; kmf 03:39 BP 126 / 71; Pulse 68; Resp 16; Temp 98; Pulse Ox 99% ; rv 08/12 23:21 Body Mass Index 49.24 (126.10 kg, 160.02 cm) rv Ericka Coma Score: 03:39 Eye Response: spontaneous(4). Motor Response: obeys commands(6). Verbal Response: rv oriented(5). Total: 15. ED Course: 08/12 23:16 Patient arrived in ED. [id number] 23:20 Hardy Mahoney PA is PHCP. cp 23:20 Edilson Terry MD is Attending Physician. cp 23:22 Triage completed. rv 23:24 Arm band placed on right wrist. rv 23:24 No provider procedures requiring assistance completed. rv 23:41 EKG completed in triage. Results shown to . kl 23:49 XRAY Chest (1 view) In Process Unspecified. EDMS 08/13 00:00 Inserted saline lock: 20 gauge in right forearm, using aseptic technique. Blood rv collected. 02:33 CT Chest For PE Angio In Process Unspecified. EDMS 03:40 IV discontinued, intact, bleeding controlled, No redness/swelling at site. Pressure rv dressing applied. Administered Medications: 00:12 Drug: Aspirin PO Chewable Tablet 324 mg PO once; 81 mg tablets x 4 Route: PO; kl 00:12 Drug: Ketorolac IVP 15 mg IVP once Route: IVP; Site: right antecubital; kl Medication: 08/12 23:24 VIS not applicable for this client. rv Outcome: 08/13 03:18 Discharge ordered by MD. cp 03:40 Discharged to home ambulatory, with family, rv 03:40 Condition: good 03:40 Discharge instructions given to patient, Instructed on discharge instructions, follow up and referral plans. medication usage, Demonstrated understanding of instructions, follow-up care, medications, Prescriptions given X 2, 03:40 Patient left the ED. rv Signatures: Dispatcher [employer] EDSary Escobar RN RN Hardy Saenz PA PA cp Vicente, Ronaldo, RN RN Ngozi Mccurdy Kelsey Maroul [facility]
--- NOTE | 2023-08-13 03:19 | EDPHYS ---
Physician Documentation [facility] Name: Dori Guardado Age: 48 yrs Sex: Female : 1975 Arrival Date: 08/12/2023 Time: 23:12 Bed 9 Private MD: ED Physician Edilson Terry HPI: 08/12 23:40 This 48 yrs old Black Female presents to ER via Ambulatory with complaints of Chest cp Pain, Irregular Pulse, Numbness Of Arm. Historical: - Allergies: 23:22 No Known Allergies; rv - PMHx: 23:22 Atrial Fib; bowel obstruction; Crohn's; Hypertension; rv - PSHx: 23:22 Appendectomy; Cholecystectomy; section; partial hysterectomy; rv - Immunization history:: Adult Immunizations up to date. - Social history:: Smoking status: Patient denies any tobacco usage or history of. ROS: 23:45 Cardiovascular: Positive for chest pain, palpitations, Negative for edema, cp 23:45 Respiratory: Negative for cough, shortness of breath, wheezing, cp 23:45 Eyes: Negative for injury, pain, redness, and discharge, cp 23:45 Constitutional: Negative for body aches, chills, fever, poor PO intake, 23:45 ENT: Negative for drainage from ear(s), ear pain, sore throat, difficulty swallowing, difficulty handling secretions, 23:45 Neck: Negative for pain with movement, pain at rest, stiffness, 23:45 Abdomen/GI: Negative for abdominal pain, nausea, vomiting, and diarrhea, 23:45 Back: Negative for pain at rest, pain with movement, 23:45 Neuro: Negative for altered mental status, dizziness, headache, weakness, 23:45 All other systems are negative, Exam: 23:28 ECG was reviewed by the Attending Physician. cp 23:50 Constitutional: The patient appears in no acute distress, alert, awake, cp non-diaphoretic, non-toxic, well developed, well nourished, obese, 23:50 Head/Face: Normocephalic, atraumatic. cp 23:50 Eyes: Periorbital structures: appear normal, Conjunctiva: normal, no exudate, no injection, Sclera: no appreciated abnormality, Lids and lashes: appear normal, bilaterally, 23:50 ENT: External ear(s): are unremarkable, Nose: is normal, Mouth: Lips: moist, Oral mucosa: pink and intact, moist, Posterior pharynx: is normal, airway is patent, no erythema, no exudate, 23:50 Neck: ROM/movement: is normal, is supple, without pain, no range of motions limitations, 23:50 Chest/axilla: Inspection: normal, Palpation: crepitus, is not appreciated, tenderness, that is moderate, of the anterior aspect of left upper chest, 23:50 Cardiovascular: Rate: normal, Rhythm: regular, Pulses: Pulses are 2+ in right radial artery and left radial artery. Edema: is not appreciated, JVD: is not appreciated, 23:50 Respiratory: the patient does not display signs of respiratory distress, Respirations: normal, no use of accessory muscles, no retractions, labored breathing, is not present, Breath sounds: are clear throughout, no decreased breath sounds, no stridor, no wheezing, 23:50 Abdomen/GI: Inspection: abdomen appears normal, Palpation: abdomen is soft and non-tender, in all quadrants, 23:50 Back: pain, is absent, ROM is normal, 23:50 Neuro: Orientation: to person, place \T\ time. Mentation: is normal, Motor: moves all fours, strength is normal, Sensation: is normal, Vital Signs: 23:21 Pulse 67; Resp 16; Temp 98; Pulse Ox 100% ; Weight 126.1 kg; Height 5 ft. 3 in. ; rv 23:26 BP 157 / 93; rv 08/13 00:05 BP 141 / 91 LA Supine; Pulse 62; Resp 14; Pulse Ox 100% on R/A; kmf 00:10 BP 118 / 55 RA Supine (auto/lg); Pulse 65; Resp 15; Pulse Ox 100% on R/A; kmf 03:39 BP 126 / 71; Pulse 68; Resp 16; Temp 98; Pulse Ox 99% ; rv 11 23:21 Body Mass Index 49.24 (126.10 kg, 160.02 cm) rv Ericka Coma Score: 03:39 Eye Response: spontaneous(4). Motor Response: obeys commands(6). Verbal Response: rv oriented(5). Total: 15. MDM: 08/12 23:29 Patient medically screened. cp 08/13 03:17 The patient was given aspirin in the Emergency Department. cp 03:17 Differential diagnosis: abnormal EKG, acute myocardial infarction, costochondritis, cp esophagitis, gastritis, pancreatitis, pericarditis, pleurisy, pneumonia, pneumothorax, pulmonary embolus, thoracic aortic disection, unstable angina. Data reviewed: vital signs, nurses notes, lab test result(s), EKG, radiologic studies, CT scan, plain films. Consideration of Admission/Observation Escalation of care including admission/observation considered. I considered the following discharge prescriptions or medication management in the emergency department Medications were administered in the Emergency Department. See MAR. Independent interpretation of the following test(s) in the Emergency Department EKG: See my EKG interpretation above. Care significantly affected by the following chronic conditions: Hypertension, Obesity. Counseling: I had a detailed discussion with the patient and/or guardian regarding the historical points, exam findings, and any diagnostic results supporting the discharge/admit diagnosis, lab results, radiology results, to return to the emergency department if symptoms worsen or persist or if there are any questions or concerns that arise at home. Response to treatment: the patient's symptoms have markedly improved after treatment, and as a result, I will discharge patient. Special discussion: Based on the patient's history, exam, and Dx evaluation, there is no indication for emergent intervention or inpatient Tx. It is understood by the patient/guardian that if the Sx's persist or worsen they need to return immediately for re-evaluation. 08/12 23:34 Order name: Basic Metabolic Panel; Complete Time: 00:37 cp 08/13 00:37 Interpretation: Normal except: K 3.2; CL 108; GFR 79; CA 8.3. 08/12 23:34 Order name: CBC with Diff; Complete Time: 00:37 cp 08/13 00:37 Interpretation: Normal except: HGB 10.9; HCT 33.2; MCV 79.4; MCH 26.0; LYM% 46.9. 08/12 23:34 Order name: Magnesium; Complete Time: 00:37 cp 08/12 23:34 Order name: PT-INR; Complete Time: 00:37 cp 08/12 23:34 Order name: Troponin HS; Complete Time: 00:37 08/13 02:26 Order name: Troponin High Sensitivity; Complete Time: 02:56 08/13 02:56 Interpretation: Reviewed. 11/18 23:34 Order name: XRAY Chest (1 view) 08/13 01:34 Order name: CT Chest For PE Angio cp 08/12 23:34 Order name: EKG; Complete Time: 23:34 cp 08/12 23:34 Order name: Cardiac monitoring; Complete Time: 00:12 cp 08/12 23:34 Order name: EKG - Nurse/Tech; Complete Time: 00:12 cp 08/12 23:34 Order name: IV Saline Lock; Complete Time: 00:12 cp 08/12 23:34 Order name: Labs collected and sent; Complete Time: 00:33 cp 08/12 23:34 Order name: O2 Per Protocol; Complete Time: 00:33 cp 08/12 23:34 Order name: O2 Sat Monitoring; Complete Time: 00:33 cp 08/12 23:43 Order name: Blood Pressure Recheck: bilateral upper extremity; Complete Time: 00:12 EC/18 23:28 Rate is 67 beats/min. Rhythm is regular. MT interval is normal. QRS interval is normal. cp QT interval is normal. T waves are Inverted in leads III, aVR. Interpreted by me. Reviewed by me. Administered Medications: 08/13 00:12 Drug: Aspirin PO Chewable Tablet 324 mg PO once; 81 mg tablets x 4 Route: PO; kl 00:12 Drug: Ketorolac IVP 15 mg IVP once Route: IVP; Site: right antecubital; kl Disposition Summary: 08/13/23 03:18 Discharge Ordered Notes: Location: Home cp Problem: new cp Symptoms: have improved cp Condition: Stable cp Diagnosis - Chest pain, unspecified cp - Palpitations cp Followup: cp - With: Private Physician - When: 2 - 3 days - Reason: Recheck today's complaints Discharge Instructions: - Discharge Summary Sheet cp - Chest Wall Pain cp - Palpitations cp - Aspirin and Your Heart cp Forms: - Medication Reconciliation Form cp - Thank You Letter cp - Antibiotic Education cp - Prescription Opioid Use cp - Patient Portal Instructions cp - Leadership Thank You Letter cp Prescriptions: - Cyclobenzaprine 10 mg Oral Tablet - take 1 tablet ORAL route every 8 hours As needed; 30 tablet; Refills: 0, cp Product Selection Permitted - Medrol ([place]) 4 mg Oral Tablets, Dose Pack - take 1 tablet ORAL route as directed - follow package instructions; 1 packet; cp Refills: 0, Product Selection Permitted Addendum: 08/15/2023 10:12 I was immediately available for consultation during this patient's visit. I did not e c2 personally see the patient or guide the patient's care. . Signatures: Dispatcher [employer] Sary Purvis RN RN kl Page, Corey, PA PA cp Vicente, Ronaldo, RN RN rv Corral, Edwin, MD MD ec2
[2023-08-13 04:14] VITALS: TEMP 98
[2023-08-13 04:22] VITALS: BP 126/71; O2SAT 99
--- NOTE | 2023-08-14 11:08 | RAD REPORT ---
EXAM DESCRIPTION: Chest For Pe Angio CLINICAL HISTORY: CHEST PAIN COMPARISON: None Available. TECHNIQUE: CTA of the chest obtained following the uncomplicated intravenous administration of iodin ated contrast.. 3-D/MIP reformatted images of the chest available for evaluation. This exam was perfo rmed according to our departmental dose-optimization program, which includes automated exposure contr ol, adjustment of the mA and/or kV according to patient size and/or use of iterative reconstruction t echnique. FINDINGS: Chest: Pulmonary arteries: Contrast bolus is adequate.No central filling defects. Suboptimal evaluation of t he segmental and subsegmental pulmonary arteries. Mild respiratory motion artifact. Beam hardening ar tifact from contrast within the superior vena cava. Thyroid: No abnormalities of the visualized thyroid. Great Vessels: Great vessels have normal anatomic configuration. Thoracic Aorta: No abnormalities of the thoracic aorta identified. Heart: No cardiomegaly, significant pericardial effusion, or coronary artery atherosclerosis Lymph Nodes: No enlarged mediastinal lymph nodes identified. Esophagus: Small hiatal hernia. Other: No additional findings. Lungs: Low lung volumes. Likely mild dependent atelectasis. No airspace consolidation. Pleura: No pleural effusion or pneumothorax. Trachea/Airways: No abnormalities of the visualized trachea or airways. Bones: Mild endplate spondylosis. Upper Abdomen: Limited images of the upper abdomen demonstrate no definite abnormalities of visualize d portions of the liver, gallbladder, pancreas, spleen, adrenal glands, or kidneys. IMPRESSION: 1. No central pulmonary embolus identified. Suboptimal evaluation of the segmental and subsegmental pulmonary arteries due to respiratory motion artifact and streak artifact from contrast within the superior vena cava. 2. Low lung volumes with mild dependent atelectasis. No confluent airspace consolidation. 3. Small hiatal hernia. Electronically signed by: Partha Sherwood DO 08/13/2023 02:52 AM CRIPPLE WORKER M Due to temporary technical issues with the PACS/Fluency reporting system, reports are being signed by the in house radiologist without review as a courtesy to ensure prompt reporting. The interpreting r adiologist is fully responsible for the content of the report.
--- NOTE | 2023-08-14 12:29 | RAD REPORT ---
EXAM DESCRIPTION: Chest Single View CLINICAL HISTORY: 48-year-old female with chest pain. TECHNIQUE: Single view, AP portable chest was obtained. COMPARISON: 04/17/2023. FINDINGS: Unremarkable cardiac and mediastinal silhouette. Heart size is normal. Low lung volumes grossly clear without focal opacity, pneumothorax or pleural effusions. The visual ized bones are within normal limits. IMPRESSION: No acute cardiopulmonary abnormalities. Electronically signed by: Tessa Rubi MD 08/13/2023 12:16 AM SUPERVISING LIBRARIAN Due to temporary technical issues with the PACS/Fluency reporting system, reports are being signed by the in house radiologist without review as a courtesy to ensure prompt reporting. The interpreting r adiologist is fully responsible for the content of the report.
--- NOTE | 2023-08-16 17:04 | EKG ---
Test Date: 2023-08-12 Test Time: 23:23:26 Assembler Equipment: SABAS MEASUREMENT RESULTS: Intervals: Rate: 67 ME: 158 QRSD: 80 QT: 404 QTc: 426 [place]: P: 31 ME: 158 QRS: -14 T: 2 INTERPRETIVE STATEMENTS: Normal sinus rhythm Normal ECG Compared to ECG 07/05/2023 00:06:55 No significant changes Electronically Signed On 08-16-23 16:54:46 ACCESSIONER by Avery Holt
== END 2023-08-13 03:40 | disposition home or self-care (01) ==
LOC: ER 23:12
DX: R07.89 Other chest pain (principal); R00.2 Palpitations; R20.0 Anesthesia of skin; I48.91 Unspecified atrial fibrillation; I10 Essential (primary) hypertension
CPT/HCPCS: 93005; 85025; 80048; 36415; 83735; 85610; 84484 ×2; 71275; 71045; 96374; 99284; Q9967

== ENCOUNTER 2023-08-19 13:41 | Emergency (ER) | payer OTHER ==
--- OUTSIDE RECORDS SUMMARY | 2023-08-19 13:51 | XMS REPORT | Continuity of Care Document ---
:1975 Author Organization [facility] t Address [address] [facility] [address] [place] [address] Care Team Providers Name Role Phone CASIE MUNOZ Primary Care Physician Unavailable Taylor Chung Attending Clinician Unavailable Karol Rich Attending Clinician Unavailable Noemy Lopez Attending Clinician Unavailable LICO TREVIZO Attending Clinician Unavailable LUCY CUEVAS Attending Clinician Unavailable LUCY CUEVAS Attending Clinician Unavailable [email or web address] Attending Clinician Unavailable MINISTERIONASSERGEY LAMASHIL T Attending Clinician Unavailable SERGEY OSORIOHIL T Attending Clinician Unavailable Justo Koehler Attending Clinician MAC LEWIS Attending Clinician Unavailable MAC LEWIS Attending Clinician Unavailable Lico Trevizo MD Attending Clinician [facility] Attending Clinician Unavailable Christina Osorio MD Attending Clinician Doctor Unassigned, [place] Attending Clinician Unavailable Vanesa Nunez Attending Clinician Unavailable Raissa Tran DO Attending Clinician [email or web address] Admitting Clinician Unavailable Noemy Lopez Admitting Clinician Unavailable Payers Payer Name Policy Type Policy Number Effective Date Expiration Date Hope fregoso [facility] [id number] 2020 HEALTH CHOICE 00:00:00 [place] [id number] 2020 Common Spiri t Health Choice 00:00:[address] [facility] [place] [id number] 2020 Common Spiri t Health Choice 00:00:00 - [facility] [place] [address] [id number] 2020 Common Spiri t Health Choice 00:00:00 [facility] Problems Condition Condition Condition Status Onset Resolution Last Treating Co mments Source Name Details Category Date Date Treatment Clinician Date AFIB/I48.0 AFIB/I48. Diagnosis Active 2023-05-30 Memoria 0 Active 04-18 09:01:00 l 04/18/2023 00:00: Nain muñoz MH 00 [facility] [id number] Microcytic Problem Co mmon anemia [facility] [id number] [place], [place] [address] joint, Spirit knee, - CHI right [facility] [id number] Sinusitis, Problem Com mon maxillary, Spirit chronic [facility] [id number] Recurrent Problem Com mon falls Spirit [facility] [id number] Balance Problem Commo n problem [facility] Morbid Obesity, Problem Common obesity morbid, Spirit BMI 50 or - CHI higher [facility] [id number] Crohn's Problem Commo n disease in [facility] remission [facility] Iron Iron Problem Common deficiency deficiency Sp jose anemia anemia, - CHI unspecifie [facility] iron [facility] deficiency Medica l anemia Center type [id number] Adult Problem Common general [facility] medical [facility] exam [facility] [id number] Hematuria, Problem Com mon unspecifie [facility] d [facility] [id number] Multiple Problem Commo n joint pain [facility] [id number] Urinary Problem Common tract Spirit infection, - CHI site not [facility] [id number] Body mass Problem Com mon index Spirit [BMI] - CHI 50.0-59.9, [facility] [id number] Vitamin D Problem Comm on deficiency Spirit - CHI [facility] [id number] Grieving Problem Comm on Spirit - CHI [facility] [id number] Seasonal Problem Comm on allergic Spirit rhinitis, - CHI unspecifie [facility] [id number] Abdominal Problem Com mon bloating Spirit - CHI [facility] [id number] Seasonal Problem Commo n allergic Spirit rhinitis - CHI due to pollen [facility] Mixed Depression Problem Commo n anxiety with Spirit and anxiety - CHI depressive [facility] [id number] Other Problem Common chronic Spirit pain - CHI [facility] [id number] Esophageal Problem Com mon stricture [facility] - CHI [facility] [id number] Morbid Problem Commo n 9104 (severe) Spirit obesity - CHI due to [facility] [id number] Essential Problem Comm on hypertensi Spirit on - CHI [facility] [id number] Atrial Problem Common fibrillati Spirit on, - CHI unspecifie [facility] Gastroesop Gastroeso Problem Active 2023-05-30 Memoria [...] [facility] Problem Active 2023-05-30 Memor ia apnea apnea 00:40:15 l (finding) (finding) Herm erich Active Problem 05/30/2023 [facility] PAROXYSMAL PAROXYSMA Diagnosis Active 2023-05-30 Memoria ATRIAL L ATRIAL 09:01:00 l FIBRILLATI FIBRILLATI He rmann ON ON Active [facility] Crohn's Crohn's Problem Active 2023-05-30 In [place]ia disease disease 00:40:15 l (disorder) (disorder) He rmann Active Problem 05/30/2023 [facility] No known No known Disease Unive rs active active ity of problems problems [facility] Allergies, Adverse Reactions, Alerts Allergy Allergy Status Severity Reaction(s) Onset Inactive Treating Comm ents Source Name Type Date Date Clinician No Known DA Active U 2020-09 [facility]ie 0-28 [place] s 00:00: d 00 [facility] No Known DA Active U 2020-09 [facility] Allergie 0-28 [place] s 00:00: d 00 [facility] No Known No Known Active Memori a Medicati Medicati l on on [place] Allergie Allergie s s NKFA NKFA Active Memoria l [place] NO KNOWN Drug Active Univers ALLERGIE Class ity of S [facility] Social History Social Habit Start Date Stop Date Quantity Comments Source History of Tobacco Common Spirit - Use [facility] Sex Assigned At Common Sp jose - [facility] Gender identity [facility]it [facility] Sexual orientation [facility] History of Social 2023-05-01 2023-05-01 Univers ity of function 00:00:00 00:00:00 [facility] Tobacco use and 2023-03-20 2023-03-20 Smokeless Universit y of exposure 00:00:00 00:00:00 tobacco non-user [facility] Smoking Status Start Date Stop Date Source Tobacco smoking consumption Univ [facility] Tobacco smoking status [facility] Medications Ordered Filled Start Stop Current [...] 8-23 tab, PO, l tablet 14:42: BID [place] 00 chlorthalid 2022-0 Yes 25mg Take 1 Univ ers one 25 mg 8-07 tablet by ity o f tablet 10:24: mouth in [place] [address] the Medical morning. Branch chlorthalid 2022-0 Yes 25mg Take 1 Univ ers one 25 mg 8-07 tablet by ity o f tablet 10:24: mouth in [place] [address] the Medical morning. Branch chlorthalid 2022-0 Yes 25mg Take 1 Univ ers one 25 mg 8-07 tablet by ity o f tablet 10:24: mouth in [place] [address] the Medical morning. Branch chlorthalid 2022-0 Yes 25mg Take 1 Univ ers one 25 mg 7-24 tablet by ity o f tablet 08:13: mouth in [place] [address] the Medical morning. Branch triamterene 2022-0 Yes [...] by ity of 14:59: 00:00 mouth in [place] 32 :00 [facility] and 1 tablet in the evening. Pt takes 40 mg in the AM and 40 mg in PM apixaban 5 2022-2022- No 5mg Take 1 Univ ers mg tablet 03-29-05 tablet by ity of 14:59: 00:00 mouth in [place] 32 :00 [facility] and 1 tablet in the evening. sotaloL 80 2022-2022- No 80mg Take 1 Univ ers mg tablet 03-29-05 tablet by ity of 14:59: 00:00 mouth in [place] 32 :00 [facility] and 1 tablet in the evening. Pt takes 40 mg in the AM and 40 mg in PM apixaban 5 2022-2022- No 5mg Take 1 Univ ers mg tablet 03-29-05 tablet by ity of 14:59: 00:00 mouth in [place] 32 :00 [facility] and 1 tablet in the evening. sotaloL 80 2022-0 2022- No 80mg Take 1 Univ ers mg tablet 03-29-05 tablet by ity of 14:59: 00:00 mouth in [place] 32 :00 [facility] and 1 tablet in the evening. Pt takes 40 mg in the AM and 40 mg in PM apixaban 5 2022-2022- No 5mg Take 1 Univ ers mg tablet -01 29-05 tablet by ity of 14:59: 00:00 mouth in [place] 32 :00 [facility] and 1 tablet in the evening. [...] in the evening. sotaloL 80 2022-0 Yes [id number] 80mg Take 1 Univers mg tablet 7-05 tablet by ity o f 00:00: mouth in [place] 00 the Medical morning Branch and 1 tablet in the evening. Pt takes 40 mg in the AM and 40 mg in PM apixaban 5 2022-0 Yes 1358 5mg Take 1 Unive rs mg tablet 7-05 tablet by ity o f 00:00: mouth in [place] [address] the Medical morning Branch and 1 tablet in the evening. Indication s: atrial fibrillati on apixaban 5 2022-0 Yes 1358 5mg Take 1 Unive rs mg tablet 7-05 tablet by ity o f 00:00: mouth in [place] [address] the Medical morning Branch and 1 tablet in the evening. Indication s: atrial fibrillati on sotaloL 80 2022-0 Yes [id number] 40mg Take 0.5 Univers mg tablet 7-05 tablets by ity of 00:00: mouth in [place] [address] the [facility] morning Branch and 0.5 tablets in the evening. Pt takes 40 mg in the AM and 40 mg in PM apixaban 5 2022-0 Yes 1358 5mg Take 1 Unive rs mg tablet 7-05 tablet by ity o f 00:00: mouth in [place] [address] the Medical morning Branch and 1 tablet in the evening. Indication s: atrial fibrillati on sotaloL 80 2022-0 Yes [id number] 40mg Take 0.5 Univers mg tablet 7-05 tablets by ity of 00:00: mouth in [place] [address] the [facility] morning Branch and 0.5 tablets in the evening. Pt takes 40 mg in the AM and 40 mg in PM apixaban 5 2022-0 Yes 1358 5mg Take 1 Unive rs mg tablet 7-05 tablet by ity o f 00:00: mouth in [place] [address] the Medical morning Branch and 1 tablet in the evening. Indication s: atrial fibrillati on sotaloL 80 2022-0 Yes [id number] 40mg Take 0.5 Univers mg tablet 7-05 tablets by ity of 00:00: mouth in [place] the [facility] morning Branch and 0.5 tablets in the evening. Pt takes 40 mg in the AM and 40 mg in PM apixaban 5 2022-0 Yes 1358 5mg Take 1 Unive rs mg tablet 7-05 tablet by ity o f 00:00: mouth in [place] the [facility] morning Branch and 1 tablet in the evening. Indication s: atrial fibrillati on sotaloL 80 0 Yes [id number] 40mg Take 0.5 Univers mg tablet 7-05 tablets by ity of 00:00: mouth in [place] [address] the [facility] morning Branch and 0.5 tablets in the evening. Pt takes 40 mg in the AM and 40 mg in PM apixaban 5 2022-0 Yes 1358 5mg Take 1 Unive rs mg tablet 7-05 tablet by ity o f 00:00: mouth in [address] morning [place] and 1 tablet in the evening. Indication s: atrial fibrillati on sotaloL 80 Yes [id number] 40mg Take 0.5 Univers mg tablet 7-05 tablets by ity of 00:00: mouth in [place] [address] the [facility] morning [place] and 0.5 tablets in the evening. Pt takes 40 mg in the AM and 40 mg in PM apixaban 5 2022-0 Yes 1358 5mg Take 1 Unive rs mg tablet 7-05 tablet by ity o f 00:00: mouth in [place] [address] the [facility] morning Branch and 1 tablet in the evening. Indication s: atrial fibrillati on sotaloL 80 2022-0 Yes [id number] 40mg Take 0.5 Univers mg tablet 7-05 tablets by ity of 00:00: mouth in [place] [address] the [facility] morning Branch and 0.5 tablets in the evening. Pt takes 40 mg in the AM and 40 mg in PM apixaban 5 2022-0 Yes 1358 5mg Take 1 Unive rs mg tablet 7-05 tablet by ity o f 00:00: mouth in [address] morning Branch and 1 tablet in the evening. Indication s: atrial fibrillati on sotaloL 80 2022-0 Yes [id number] 40mg Take 0.5 Univers mg tablet 7-05 tablets by ity of 00:00: mouth in [place] 00 the Medical morning Branch and 0.5 tablets in the evening. Pt takes 40 mg in the AM and 40 mg in PM apixaban 5 2022-0 Yes 1358 5mg Take 1 Unive rs mg tablet 7-05 tablet by ity o f 00:00: mouth in [place] 00 the [facility] morning Branch and 1 tablet in the evening. Indication s: atrial fibrillati on sotaloL 80 Yes [id number] 40mg Take 0.5 Univers mg tablet 7-05 tablets by ity of 00:00: mouth in [place] 00 the Medical morning Branch and 0.5 tablets in the evening. Pt takes 40 mg in the AM and 40 mg in PM apixaban 5 Yes 1358 5mg Take 1 Unive rs mg tablet 7-05 tablet by ity o f 00:00: mouth in [address] morning [place] and 1 tablet in the evening. Indication s: atrial fibrillati on sotaloL 80 Yes [id number] 40mg Take 0.5 Univers mg tablet 7-05 tablets by ity of 00:00: mouth in [place] 00 the [facility] morning Branch and 0.5 tablets in the evening. Pt takes 40 mg in the AM and 40 mg in PM sotaloL 80 Yes [id number] 80mg Take 1 Univers mg tablet 7-05 tablet by ity o f 00:00: mouth in [address] morning [place] and 1 tablet in the evening. Pt takes 40 mg in the AM and 40 mg in PM apixaban 5 Yes 1358 5mg Take 1 Unive rs mg tablet 7-05 tablet by ity o f 00:00: mouth in [place] 00 the [facility] morning Branch and 1 tablet in the evening. Indication s: atrial fibrillati on sotaloL 80 2022-0 2022- No [id number] 80mg Take 1 Univers mg tablet 7-05 07-05 tablet by ity of 00:00: 00:00 mouth in [place] 00 :00 the [facility] morning Branch and 1 tablet in the evening. Pt takes 40 mg in the AM and 40 mg in PM adalimumab Yes inject Unive rs (GABBY MILLER, 6-26 under the ity of [place]) 15:30: skin. [place] 35 Medical Branch dicyclomine 2023-0 Yes 10mg Take [...] the ity of [place]) 15:30: skin. [place] [address] Medical Branch dicyclomine 2023-0 Yes 10mg Take [...] the ity of [place]) 15:30: skin. [place] [address] Medical Branch dicyclomine 2023-0 Yes 10mg Take [...] the ity of [place]) 15:30: skin. [place] [address] Medical Branch dicyclomine 2023-0 Yes 10mg Take [...] the ity of [place]) 15:30: skin. [place] [address] Medical Branch dicyclomine 2023-0 Yes 10mg Take [...] the ity of [place]) 15:30: skin. [place] [address] Medical Branch dicyclomine 2023-0 Yes 10mg Take [...] the ity of [place]) 15:30: skin. [place] [address] Medical Branch dicyclomine 2023-0 Yes 10mg Take [...] the ity of [place]) 15:30: skin. [place] [address] Medical Branch dicyclomine 2023-0 Yes 10mg Take [...] the ity of [place]) 15:30: skin. [place] [address] Medical Branch dicyclomine 2023-0 Yes 10mg Take [...] the ity of [place]) 15:30: skin. [place] [address] Medical Branch dicyclomine 2023-0 Yes 10mg Take [...] the ity of [place]) 15:30: skin. [place] [address] Medical Branch dicyclomine 2023-0 Yes 10mg Take [...] the ity of [place]) 15:30: skin. [place] [address] Medical Branch dicyclomine 2023-0 Yes 10mg Take [...] by ity o f tablet 15:30: mouth [place] [address] every 12 Medical (twelve) Branch hours. sotaloL 80 2023-0 Yes 80mg Take 1 Unive rs mg tablet 6-26 tablet by ity o f 15:30: mouth in [place] [address] the Medical morning Branch and 1 tablet in the evening. Pt takes 40 mg in the AM and 40 mg in PM apixaban 5 3-0 Yes 5mg Take 1 Unive rs mg tablet 6-26 tablet by ity o f 15:30: mouth in [place] [address] the Medical morning Branch and 1 tablet in the evening. adalimumab 2023-0 Yes inject Unive rs (HUMIRA,CF, 6-26 under the ity of [place]) 15:30: skin. [place] [address] Medical Branch dicyclomine 2023-0 Yes 10mg Take 1 Univ ers 10 mg 6-26 capsule by ity of capsule 15:30: mouth as [place] [address] needed for Medical Abdominal Branch pain. vancomycin 2023-0 Yes 500mg Take 6 mL U nivers 500 mg/6 mL 6-26 by mouth ity of oral 15:30: in the [place] solution 35 morning Medical and 6 mL Branch at noon and 6 mL in the evening. metroNIDAZO 2023-0 Yes 500mg Take 1 Uni vers LE 500 mg 6-26 tablet by ity o f tablet 15:30: mouth [place] [address] every 12 Medical (twelve) Branch hours. sotaloL 80 2023-0 Yes 80mg Take 1 Unive rs mg tablet 6-26 tablet by ity o f 15:30: mouth in [place] [address] the Medical morning Branch and 1 tablet in the evening. Pt takes 40 mg in the AM and 40 mg in PM apixaban 5 2023-0 Yes 5mg Take 1 Unive rs mg tablet 6-26 tablet by ity o f 15:30: mouth in [place] [address] the Medical morning Branch and 1 tablet in the evening. adalimumab 2023-0 Yes inject Unive rs (HUMIRA,CF, 6-26 under the ity of [place]) 15:30: skin. [place] [address] Medical Branch dicyclomine 2023-0 Yes 10mg Take 1 Univ ers 10 mg 6-26 capsule by ity of capsule 15:30: mouth as [place] [address] needed for Medical Abdominal Branch pain. vancomycin [...] every 12 Medical (twelve) Branch hours. adalimumab 3-0 Yes inject Unive rs (HUMIRA,CF, 6-26 under the ity of [place]) 15:30: skin. [place] 35 Medical Branch dicyclomine 2022-0 Yes 10mg Take 1 Univ ers 10 mg 6-26 capsule by ity of capsule 15:30: mouth as [place] [address] needed for Medical Abdominal Branch pain. vancomycin [...] by ity o f tablet 15:30: mouth [place] [address] every 12 Medical (twelve) Branch hours. ALPRAZolam [...] n 20 MG 00:00: dtime} 00 Dose 0 No Unknown 05-06 00:00: 00 Dose 2022-0 No Unknown 8-11 00:00: 00 Dose 2022-0 No Unknown 8- 00:00: 00 fluconazole 2-0 No 1mg 150 mg 7-27 tablet 00:00: 00 nystatin 2022-0 No 10unit/ 100,000 7-27 mL unit/mL 00:00: oral 00 suspension Dose 2-0 No Unknown 7 00:00: 00 Dose 2-0 No Unknown 7 00:00: 00 Dose 2022-0 No Unknown 7 00:00: 00 fluconazole 2022-0 No 1mg 150 mg 7-27 tablet 00:00: 00 nystatin 2022-0 No 10unit/ 100,000 7-27 mL unit/mL 00:00: oral 00 suspension Dose 2-0 No Unknown 04-20 00:00: 00 Dose 2022-0 [...] 00:00: nded 00 release guaiFENesin guaiFENesin 2-0 2- No QID guaiFENesi -Codeine -Codeine 5-04 [...] tablet 00:00: 00 Dose 2022-0 No Unknown 01-21 [...] No Univers medications 0-09 ity of 19:54: [address] metoprolol 2020-0 No 1mg tartrate 50 8-10 mg tablet 00:00: 00 omeprazole 2020-0 No 1mg 20 mg 8-10 capsule,del 00:00: ayed 00 release metoprolol 2020-0 No 1mg tartrate 50 8-10 mg tablet 00:00: 00 omeprazole 2021-0 No 1mg 20 mg 8-10 capsule,del 00:00: [...] Sodium 05-04 Spirit 00:00: - CHI 00 [facility] Ergocalcife Ergocalcife 2018- 2020- No Na Lopez 1 capsule Common rol rol 18 16 Spirit 00:00: 00:00 - CHI 00 :00 [facility] Paxil Paxil 2017-0 Yes Na Lopez 1 tablet Comm on 12-26 in the Spirit 00:00: morning - CHI 00 [facility] Humira Humira Yes Na Lopez not Common defined [facility] Aspirin Aspirin Yes Na Lopez not Common defined [facility] BusPIRone BusPIRone Yes Na Lopez 1 tablet Common HCl HCl [facility] Metoprolol Metoprolol Yes Na Lopez 1 tablet Common Tartrate Tartrate with food Sp jose - CHI [facility] Lagevrio Lagevrio No 4{capsu BID Lagevrio [...] MG HCl 20 MG HCl 20 MG predniSONE predniSONE No QD predniSONE 20 MG 20 MG 20 MG Montelukast Montelukast No Montelukas Sodium [...] Base) Base) (90 Base) MCG/ACT MCG/ACT MCG/ACT Cetirizine Cetirizine No Cetirizine HCl 10 MG [...] MG Ergocalcife Ergocalcife No 1{capsu Ergocalcif rol 98509 rol 87956 le} fortunato 58043 UNIT UNIT UNIT Gabapentin Gabapentin No 1{capsu [...] MCG/ACT Ergocalcife Ergocalcife No 1{capsu Ergocalcif rol 31262 rol 44860 le} fortunato 17157 UNIT UNIT UNIT Gabapentin Gabapentin No 1{capsu [...] MG Ergocalcife Ergocalcife No 1{capsu Ergocalcif rol 82991 rol 89118 le} [place] 44836 UNIT UNIT UNIT Montelukast Montelukast No 1{table [...] MG t} Ergocalcife Ergocalcife No 1{capsu rol 99859 rol 59250 le} UNIT UNIT Montelukast Montelukast No 1{table [...] MG Ergocalcife Ergocalcife No 1{capsu Ergocalcif rol 05252 rol 99697 le} fortunato 11017 UNIT UNIT UNIT Montelukast Montelukast No 1{table [...] MG Ergocalcife Ergocalcife No 1{capsu Ergocalcif rol 83897 rol 28247 le} [place]ato 02885 UNIT UNIT UNIT Omeprazole Omeprazole No 1{capsu [...] MG Ergocalcife Ergocalcife No 1{capsu Ergocalcif rol 89331 rol 70132 le} fortunato 39892 UNIT UNIT UNIT Humira Humira No Humira [...] MG Ergocalcife Ergocalcife No 1{capsu Ergocalcif rol 82150 rol 28029 le} fortunato 33992 UNIT UNIT UNIT Famotidine Famotidine No 1{table [...] MG Ergocalcife Ergocalcife No 1{capsu Ergocalcif rol 90958 rol 72743 le} [place]ato 56249 UNIT UNIT UNIT busPIRone busPIRone No 1{table [...] MG Ergocalcife Ergocalcife No 1{capsu Ergocalcif rol 39541 rol 06851 le} fortunato 79816 UNIT UNIT UNIT Montelukast Montelukast No 1{table [...] MG Ergocalcife Ergocalcife No 1{capsu Ergocalcif rol 35787 rol 64655 le} fortunato 91539 UNIT UNIT UNIT Montelukast Montelukast No 1{table [...] MG Ergocalcife Ergocalcife No 1{capsu Ergocalcif rol 19502 rol 97939 le} fortunato 43439 UNIT UNIT UNIT Flonase 50 Flonase 50 [...] MG Ergocalcife Ergocalcife No 1{capsu Ergocalcif rol 74786 rol 02414 le} fortunato 42834 UNIT UNIT UNIT PARoxetine PARoxetine No PARoxetine [...] MG Ergocalcife Ergocalcife No 1{capsu Ergocalcif rol 61880 rol 96155 le} fortunato 41069 UNIT UNIT UNIT PARoxetine PARoxetine No PARoxetine [...] MG Ergocalcife Ergocalcife No 1{capsu Ergocalcif rol 01838 rol 10329 le} fortunato 74958 UNIT UNIT UNIT Aspirin 81 Aspirin 81 [...] MG Ergocalcife Ergocalcife No 1{capsu Ergocalcif rol 21189 rol 91496 le} fortunato 68804 UNIT UNIT UNIT ALPRAZolam ALPRAZolam No 1{table [...] MG Ergocalcife Ergocalcife No 1{capsu Ergocalcif rol 39076 rol 32819 le} fortunato 82351 UNIT UNIT UNIT ALPRAZolam ALPRAZolam No 1{table [...] MG Ergocalcife Ergocalcife No 1{capsu Ergocalcif rol 60286 rol 35766 le} fortunato 48982 UNIT UNIT UNIT ALPRAZolam ALPRAZolam No 1{table [...] MG Ergocalcife Ergocalcife No 1{capsu Ergocalcif rol 74770 rol 34933 le} fortunato 43624 UNIT UNIT UNIT Benzonatate Benzonatate No TID [...] MG Ergocalcife Ergocalcife No 1{capsu Ergocalcif rol 76771 rol 11628 le} fortunato 28545 UNIT UNIT UNIT Benzonatate Benzonatate No TID [...] MG Ergocalcife Ergocalcife No 1{capsu Ergocalcif rol 94963 rol 58210 le} [place]ato 24350 UNIT UNIT UNIT Famotidine Famotidine No Famotidine [...] MG Ergocalcife Ergocalcife No 1{capsu Ergocalcif rol 66930 rol 34630 le} fortunato 17462 UNIT UNIT UNIT Famotidine Famotidine No Famotidine [...] MG Ergocalcife Ergocalcife No 1{capsu Ergocalcif rol 74035 rol 78596 le} fortunato 62702 UNIT UNIT UNIT Gabapentin Gabapentin No 1{capsu [...] MCG/ACT Ergocalcife Ergocalcife No 1{capsu Ergocalcif rol 04922 rol 53707 le} fortunato 16333 UNIT UNIT UNIT Gabapentin Gabapentin No 1{capsu [...] MG Ergocalcife Ergocalcife No 1{capsu Ergocalcif rol 23779 rol 88437 le} fortunato 41013 UNIT UNIT UNIT Montelukast Montelukast No Montelukas [...] MG Ergocalcife Ergocalcife No 1{capsu Ergocalcif rol 04277 rol 59497 le} fortunato 74050 UNIT UNIT UNIT Cetirizine Cetirizine No Cetirizine [...] MG Ergocalcife Ergocalcife No 1{capsu Ergocalcif rol 71872 rol 49244 le} fortunato 29438 UNIT UNIT UNIT Cetirizine Cetirizine No Cetirizine [...] MG Ergocalcife Ergocalcife No 1{capsu Ergocalcif rol 85897 rol 75974 le} fortunato 41247 UNIT UNIT UNIT Cetirizine Cetirizine No Cetirizine [...] MG Ergocalcife Ergocalcife No 1{capsu Ergocalcif rol 46189 rol 74036 le} fortunato 19336 UNIT UNIT UNIT Cetirizine Cetirizine No Cetirizine [...] MG Ergocalcife Ergocalcife No 1{capsu Ergocalcif rol 68254 rol 91854 le} fortunato 68209 UNIT UNIT UNIT Cetirizine Cetirizine No Cetirizine [...] MG Ergocalcife Ergocalcife No 1{capsu Ergocalcif rol 33337 rol 94333 le} fortunato 23934 UNIT UNIT UNIT guaiFENesin guaiFENesin No 10{ml_a [...] MG Ergocalcife Ergocalcife No 1{capsu Ergocalcif rol 76712 rol 15520 le} fortunato 94194 UNIT UNIT UNIT Meloxicam Meloxicam No Meloxicam [...] blood 2023-05-01 15:23:00 144 mm[Hg] Univer sity [facility] Diastolic blood 2023-05-01 15:23:00 89 mm[Hg] [facility] [place] [facility] Heart rate 2023-05-01 15:23:00 75 /min [facility] Respiratory rate 2023-05-01 15:23:00 17 /min [facility] Body height 2023-05-01 15:23:00 160 cm [facility] Body weight 2023-05-01 15:23:00 135.671 kg [facility] BMI 2023-05-01 15:23:00 52.98 kg/m2 [facility] [facility] Oxygen saturation in 2023-05-01 15:23:00 99 /min University of Arterial blood by [facility] Pulse oximetry Branch Systolic blood 2023-03-20 20:35:00 133 mm[Hg] Univer sity of pressure [facility] Diastolic blood 2023-03-20 20:35:00 94 mm[Hg] Unive rsity of [facility] Heart rate 2023-03-20 20:35:00 78 /min Universi ty of [facility] Oxygen saturation in 2023-03-20 20:35:00 95 /min University of Arterial blood by [facility] Pulse oximetry Branch Body temperature 2023-03-20 20:33:00 36.33 [facility] rate 2023-03-20 20:33:00 18 /min [facility] Body height 2023-03-20 20:33:00 160 cm Universi ty of [facility] Body weight 2023-03-20 20:33:00 134.537 kg Universi ty of [facility] BMI 2023-03-20 20:33:00 52.54 kg/m2 Universi ty of [facility] height 2023-01-24 14:00:00 63 [in_i] [facility] weight 2023-01-24 14:00:00 292.4 [lb_av] Common [facility] temperature 2023-01-24 14:00:00 97.3 [degF] Common [facility] bmi 2023-01-24 14:00:00 51.79 kg/m2 [facility] oximetry 2023-01-24 14:00:00 99 % Common [facility] respiratory rate 2023-01-24 14:00:00 18 /min Comm on [facility] blood pressure 2023-01-24 14:00:00 137 mm[Hg] [facility] - systolic [facility] blood pressure 2023-01-24 14:00:00 89 mm[Hg] [facility] - diastolic [facility] height 2022-08-31 08:20:00 63 [in_i] Common S pirit [facility] weight 2022-08-31 08:20:00 278 [lb_av] [facility] temperature 2022-08-31 08:20:00 98.5 [degF] Common S pirit [facility] bmi 2022-08-31 08:20:00 49.24 kg/m2 Common S pirit [facility] height 2022-08-10 10:20:00 63 [in_i] Common [facility] weight 2022-08-10 10:20:00 283 [lb_av] [facility] temperature 2022-08-10 10:20:00 98.5 [degF] [facility] bmi 2022-08-10 10:20:00 50.13 kg/m2 [facility] S pirit [facility] height 2022-06-22 10:20:00 63 [in_i] [facility] weight 2022-06-22 10:20:00 276 [lb_av] [facility] bmi 2022-06-22 10:20:00 48.89 kg/m2 [facility] height 2022-04-26 17:00:00 63 [in_i] Common S pirit [facility] weight 2022-04-26 17:00:00 279 [lb_av] [facility] S pirit [facility] temperature 2022-04-26 17:00:00 97.9 [degF] [facility] S pirit [facility] bmi 2022-04-26 17:00:00 49.42 kg/[facility] height 2022-01-05 14:00:00 63 [in_i] [facility] pirit [facility] weight 2022-01-05 14:00:00 297 [lb_av] [facility] S pirit [facility] bmi 2022-01-05 14:00:00 52.61 kg/m2 Common S pirit - [facility] blood pressure 2022-01-05 14:00:00 148 mm[Hg] [facility] - systolic [facility] blood pressure 2022-01-05 14:00:00 102 mm[Hg] [facility] - diastolic [facility] height 2021-12-28 16:00:00 63 [in_i] Common S pirit [facility] weight 2021-12-28 16:00:00 300.4 [lb_av] [facility] temperature 2021-12-28 16:00:00 97.3 [degF] Common S [facility] bmi 2021-12-28 16:00:00 53.21 kg/m2 [facility] S [facility] oximetry 2021-12-28 16:00:00 100 % [facility] respiratory rate 2021-12-28 16:00:00 18 /min Comm on Spirit [facility] blood pressure 2021-12-28 16:00:00 137 mm[Hg] [facility] - systolic [facility] blood pressure 2021-12-28 16:00:00 83 mm[Hg] Common [facility] - diastolic [facility] height 2021-09-28 09:40:00 63 [in_i] [facility] 2021-09-28 09:40:00 283 [lb_av] Common S pirit [facility] temperature 2021-09-28 09:40:00 97.9 [degF] Common S pirit [facility] bmi 2021-09-28 09:40:00 50.13 kg/m2 Common S pirit [facility] height 2021-08-02 10:00:00 63 [in_i] Common S pirit [facility] weight 2021-08-02 10:00:00 282.6 [lb_av] [facility] temperature 2021-08-02 10:00:00 97.0 [degF] Common S pirit [facility] bmi 2021-08-02 10:00:00 50.05 kg/m2 Common [facility] oximetry 2021-08-02 10:00:00 97 % Common S pirit - [facility] respiratory rate 2021-08-02 10:00:00 16 /min Comm on Spirit - [facility] blood pressure 2021-08-02 10:00:00 140 mm[Hg] [facility] - systolic [facility] blood pressure 2021-08-02 10:00:00 62 mm[Hg] Common [facility] - diastolic [facility] Systolic blood 2021-07-04 00:50:00 180 mm[Hg] Univer sity of [facility] Diastolic blood 2021-07-04 00:50:00 110 mm[Hg] [facility] Heart rate 2021-07-04 00:50:00 79 /min [facility] Body temperature 2021-07-04 00:50:00 36.67 Gem [facility] Respiratory rate 2021-07-04 00:50:00 18 /min [facility] Body weight 2021-07-04 00:50:00 121.564 kg [facility] Oxygen saturation in 2021-07-04 00:50:00 99 /min [facility] Arterial blood by [facility] Pulse oximetry Branch Heart Rate 2023-05-27 13:27:31 [facility] [place] Systolic (mm Hg) 2023-05-27 13:25:25 Delvis rial [place] Diastolic (mm Hg) 2023-05-27 13:25:25 Mem orial [place] Temperature Oral (F) 2023-05-27 13:25:01 97.6 F [facility] [place] Height 2023-05-26 15:06:00 5 [ft_i] [facility] [place] Weight 2023-05-26 15:06:00 [facility] [place] BMI Calculated 2023-05-26 15:06:00 Memori al [place] Systolic (mm Hg) 2023-05-24 16:30:00 Delvis rial [place] Diastolic (mm Hg) 2023-05-24 16:30:00 Titi Borjas Height 2023-05-24 15:00:00 5 [ft_i] Digna Borjas Weight 2023-05-24 15:00:00 Digna Borjas BMI Calculated 2023-05-24 15:00:00 Maycol Alejandro BP Systolic 2022-01-21 14:32:00 BP Diastolic 2022-01-21 14:32:00 Weight Measured 2022-01-21 14:32:00 276.00 pounds Height Measured 2022-01-21 14:32:00 63.00 inches Body Temperature 2022-01-21 14:32:00 Heart Rate 2022-01-21 14:32:00 Respiratory Rate 2022-01-21 14:32:00 Procedures Procedure Date / Time Performing Clinician Source Performed SLEEP STUDY DATA REPORT 2023-04-11 05:01:00 Doctor Unassigned, [facility] [place] [facility] HB ECG ROUTINE & RHYTHM 2023-03-20 20:38:13 Lico Trevizo [facility] Medical Branch ASSIGNMENT OF BENEFITS 2023-03-20 20:13:23 Doctor Unassigned, [facility] [place] [facility] REFERRAL- REQUEST/RESPONSE 2023-02-02 05:01:00 Doctor Nichole , [facility] [place] [facility] Cardioversion 2023-01-03 05:00:00 Digna dumont XR CHEST 1 VW 2021-07-04 01:14:37 Raissa Tran [facility] Medical Branch NOTICE OF PRIVACY 2021-07-04 00:45:31 Doctor Unatracy, [facility] PRACTICES [place] [facility] CONSENT/REFUSAL FOR 2021-07-04 00:45:10 Doctor Unassclaude, [facility] DIAGNOSIS AND TREATMENT [place] [facility] Repair of small bowel [facility] H ermann obstruction Partial hysterectomy [facility] rmann 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Memoria l [place] stricture section [facility] Nain n [facility] Plan of Care Planned Activity Planned Date Details Comments Source Goal Plan of Care Note [code = 12288-5] Goal Plan of Care Note [code = 04546-0] Goal Plan of Care Note [code = 58301-9] Goal Plan of Care Note [code = 05836-3] Goal Plan of Care Note [code = 14989-1] Goal Plan of Care Note [code = 57855-0] Goal Plan of Care Note [code = 55071-0] Goal Plan of Care Note [code = 10373-7] Goal Plan of Care Note [code = 94874-5] Goal Plan of Care Note [code = 80187-4] Goal Plan of Care Note [code = 57977-0] Goal Plan of Care Note [code = 66987-6] Goal Plan of Care Note [code = 36515-2] Goal Plan of Care Note [code = 59470-2] Goal Plan of Care Note [code = 89005-7] Goal Plan of Care Note [code = 80352-8] Encounters Start End Encounter Admission Attending Care Care Encounter Source Date/Time Date/Time Type Type Clinicians Facility Department ID 2023-02-24 Outpatient Chung, STLMLC STLMLC [id number] Common 14:59:00 Avnee [id number] [facility] 2023-01-23 Outpatient Chung, STLMLC STLMLC [id number] Common 09:09:00 Avnee [id number] [facility] 2022-12-29 Outpatient Chung, STLMLC STLMLC [id number] Common 15:24:00 Avnee [id number] [facility] 2022-12-21 Outpatient Layla, STLMLC STLMLC [id number] Common 09:47:00 Karol 35056 [facility] 2022-06-01 Outpatient Lopez, Na STLMLC STLMLC [id number] 2 Common 09:18:00 [facility] 2022-04-13 Outpatient Lopez, Na STLMLC STLMLC [id number] 2 Common 15:29:00 [facility] 2022-04-07 Outpatient Lopez, Na STLMLC STLMLC [id number] 2 Common 16:07:00 [facility] 2022-01-04 Outpatient Lopez, Na STLMLC STLMLC [id number] Common 09:31:01 [facility] 2021-10-20 Outpatient Lopez, Na STLMLC STLMLC [id number] Common 14:09:55 [id number] [facility] 2021-10-20 Outpatient Lopez, Na STLMLC STLMLC [id number] 2 Common 13:47:22 35062 [facility] 2021-10-20 Outpatient Lopez, Na STLMLC STLMLC [id number] 2 Common 12:29:04 [id number] [facility] 2021-10-20 Outpatient Lopez, Na STLMLC STLMLC [id number] 2 Common 12:03:44 [id number] [facility] 2021-10-20 Outpatient Lopez, Na STLMLC STLMLC [id number] 2 Common 12:03:05 [id number] [facility] 2021-10-20 Outpatient Lopez, Na STLMLC STLMLC [id number] 2 Common 11:43:49 [id number] [facility] 2021-10-20 Outpatient Lopez, Na STLMLC STLMLC [id number] 2 Common 11:35:56 16423 [facility] 2021-10-20 Outpatient Lopez, Na STLMLC STLMLC [id number] 2 Common 11:18:09 23201 [facility] 2021-10-20 Outpatient Lopez, Na STLMLC STLMLC [id number] 2 Common 11:04:54 [id number] [facility] 2021-10-20 Outpatient Lopez, Na STLMLC STLMLC [id number] 2 Common 11:04:25 [id number] [facility] 2023-08-02 2023-08-02 Outpatient LUCY BOOGIE [facility] [id number] Univers 11:00:00 11:00:00 LUCY CUEVAS [facility] 2023-07-25 2023-07-25 Outpatient GC_GCBZW_Ka PRIV PRIV [id number] [facility] 00:00:00 00:00:00 larry_S [id number] [facility] 2023-07-24 2023-07-24 Outpatient GC_GCBZW_Ka PRIV PRIV [id number] [facility] 00:00:00 00:00:00 diyala_S [id number] [facility] 2023-05-26 2023-05-27 Observatio [facility] [id number] Memoria 21:42:00 17:29:00 [place] 01 l [facility] 2023-05-26 2023-05-27 Outpatient Justo Koehler [facility] [id number] 16:42:00 12:29:00 2023-05-24 2023-05-25 Outpatient [facility] [id number] Memoria 12:17:00 04:59:00 [place] 00 l [facility] 2023-05-24 2023-05-24 Outpatient Justo Koehler [facility] [id number] 07:17:00 23:59:00 2023-05-01 2023-05-01 Outpatient R LUCY CUEVAS [facility] [id number] Univers 10:30:00 10:54:08 LUCY CUEVAS it y [facility] 2023-05-01 2023-05-01 [facility] 1.2.840.114 [id number] Univers 10:30:00 10:54:08 Visit [facility] HEALTH 350.1.13.10 [place] [id number] [address] OFFICE [facility] 2023-05-01 2023-05-01 Telephone [facility] 1.2.840.114 [id number] Univers 00:00:00 00:00:00 Candy HEALTH 350.1.13.10 [place] [id number] [address] OFFICE [facility] 2023-04-20 2023-04-20 Outpatient R MAC LEWIS [facility] [id number] Univers 11:20:00 11:20:00 MAC LEWIS [facility] 2023-04-15 2023-04-15 Telephone [facility] [id number] Univers 00:00:00 00:00:00 Qiangjun [place] 350.1.13.10 ity [place] [id number] In dicdc NAL 059 [facility] 2023-04-13 2023-04-13 Telephone [facility] [id number] [id number] Univers 00:00:00 00:00:00 Qiangjun [place] 350.1.13.10 it[place] [id number] [address] 2023-04-11 2023-04-11 Terrazzo Helper Tech, [facility] 1.2 .840.114 [id number] Univers 13:00:00 13:15:00 Visit Christina Osorio 350.1.13. 10 [place] [id number] [facility] [address] 2023-04-11 2023-04-11 Outpatient R CHRISTINA OSORIO [facility] [id number] Univers 13:00:00 13:00:00 CHRISTINA OSORIO ity of [facility] 2023-04-11 2023-04-11 Orders Doctor ANEL 1.2.840.114 [id number] Univers 00:00:00 00:00:00 Only Unassigned, VITALY 350.1.13.10 ity of [place] [facility] 4.2.7.2.686 Herman as [id number] [address] 2023-03-29 2023-03-29 Telephone [facility] [id number] Univers 00:00:00 00:00:00 Qiangjun [place] 350.1.13.10 ity [place] [id number] [place] [id number] [facility] 2023-03-29 2023-03-29 Telephone [facility] [id number] [id number] Univers 00:00:00 00:00:00 Qiangjun [place] 350.1.13.10 it[place] [id number] In dical NAL 9 [facility] 2023-03-20 2023-03-20 Outpatient R SANTHOSH [facility] [id number] Univers 15:20:00 16:49:15 BRICESOHAM ity o f [facility] 2023-03-20 2023-03-20 Office [facility] 1.2.840.114 [id number] Univers 15:20:00 16:49:15 [facility] 350.1.13.10 it[place] of [place] [id number] In dical NAL 9 [facility] 2023-03-20 2023-03-20 Orders Doctor ANEL 1.2.840.114 [id number] Univers 00:00:00 00:00:00 Only Unassigned, [facility] 350.1.13.10 [facility] 4.2.7.2.686 [place] as [phone] [facility] 009 Branch 2023-02-23 2023-02-23 (TEL) STLMLC STLMLC [id number] Co mmon 00:00:00 00:00:00 Spirit [facility] 2023-02-02 2023-02-02 Orders Doctor ANEL 1.2.840.114 [id number] Univers 00:00:00 00:00:00 Only Unassigned, VITALY 350.1.13.10 [facility] 4.2.7.2.686 [place] as [id number] [place] [address] Branch 2023-01-31 2023-01-31 (TEL) STLMLC STLMLC [id number] Co mmon 00:00:00 00:00:00 Spirit - [facility] 2023-01-24 2023-01-24 OFFICE STLMLC STLMLC [id number] Co mmon 00:00:00 00:00:00 VISIT [facility] PT - CHI LEVEL 4 [facility] 2022-12-23 2022-12-23 (TEL) STLMLC STLMLC [id number] Co mmon 00:00:00 00:00:00 Spirit - [facility] 2022-10-27 2022-10-27 (TEL) STLMLC STLMLC [id number] Co mmon 00:00:00 00:00:00 [facility] 2022-08-31 2022-08-31 OFFICE STLMLC STLMLC [id number] Co mmon 00:00:00 00:00:00 VISIT EST Spir it PT LEVEL 3 - [facility] 2022-08-30 2022-08-30 (TEL) STLMLC STLMLC [id number] Co mmon 00:00:00 00:00:00 [facility] 2022-08-29 2022-08-29 Outpatient SFA SFA [id number] Stef 15:26:21 15:26:21 1205 F Mohinder 2022-08-29 2022-08-29 Outpatient [id number] 00:00:00 00:00:00 Visit [id number] 2022-08-10 2022-08-10 (TEL) STLMLC STLMLC [id number] Co mmon 00:00:00 00:00:00 [facility] 2022-08-10 2022-08-10 (TEL) STLMLC STLMLC [id number] Co mmon 00:00:00 00:00:00 [facility] 2022-08-10 2022-08-10 (TEL) STLMLC STLMLC [id number] Co mmon 00:00:00 00:00:00 [facility] 2022-08-10 2022-08-10 OFFICE STLMLC STLMLC [id number] Co mmon 00:00:00 00:00:00 VISIT EST Spir it PT LEVEL 3 - [facility] 2022-07-20 2022-07-20 (TEL) STLMLC STLMLC [id number] Co mmon 00:00:00 00:00:00 [facility] 2022-06-29 2022-06-29 (TEL) STLMLC STLMLC [id number] Co mmon 00:00:00 00:00:00 [facility] 2022-06-22 2022-06-22 OFFICE STLMLC STLMLC [id number] Co mmon 00:00:00 00:00:00 VISIT EST Spir it PT LEVEL 3 [facility] 2022-06-20 2022-06-20 (TEL) STLMLC STLMLC [id number] Co mmon 00:00:00 00:00:00 [facility] 2022-06-03 2022-06-03 OFFICE STLMLC STLMLC [id number] Co mmon 00:00:00 00:00:00 VISIT EST Spir it PT LEVEL 3 [facility] 2022-05-16 2022-05-16 (TEL) STLMLC STLMLC [id number] Co mmon 00:00:00 00:00:00 [facility] 2022-05-16 2022-05-16 OFFICE STLMLC STLMLC [id number] Co mmon 00:00:00 00:00:00 VISIT EST Spir it PT LEVEL 3 [facility] 2022-04-27 2022-04-27 (TEL) STLMLC STLMLC [id number] Co mmon 00:00:00 00:00:00 [facility] 2022-04-26 2022-04-26 (TEL) STLMLC STLMLC [id number] Co mmon 00:00:00 00:00:00 [facility] 2022-04-26 2022-04-26 OFFICE STLMLC STLMLC [id number] Co mmon 00:00:00 00:00:00 VISIT EST Spir it PT LEVEL 3 [facility] 2022-04-20 2022-04-20 Outpatient [id number] 00:00:00 00:00:00 Visit [id number] 2022-03-30 2022-03-30 OFFICE STLMLC STLMLC [id number] Co mmon 00:00:00 00:00:00 VISIT [facility] ESTAB PT - CHI LEVEL 4 [facility] 2022-02-14 2022-02-14 (TEL) STLMLC STLMLC [id number] Co mmon 00:00:00 00:00:00 [facility] 2022-01-27 2022-01-27 OFFICE STLMLC STLMLC [id number] Co mmon 00:00:00 00:00:00 VISIT EST Spir it PT LEVEL 3 - [facility] 2022-01-26 2022-01-26 (TEL) STLMLC STLMLC [id number] Co mmon 00:00:00 00:00:00 [facility] 2022-01-18 2022-01-18 (TEL) STLMLC STLMLC [id number] Co mmon 00:00:00 00:00:00 [facility] 2022-01-05 2022-01-05 OFFICE STLMLC STLMLC [id number] Co mmon 00:00:00 00:00:00 VISIT NEW Spir it PT LEVEL 3 - [facility] 2021-12-28 2021-12-28 OFFICE STLMLC STLMLC [id number] Co mmon 00:00:00 00:00:00 VISIT [facility] PT - CHI LEVEL 4 [facility] 2021-11-15 2021-11-15 (TEL) STLMLC STLMLC [id number] Co mmon 00:00:00 00:00:00 [facility] 2021-11-11 2021-11-11 (TEL) STLMLC STLMLC [id number] Co mmon 00:00:00 00:00:00 [facility] 2021-09-28 2021-09-28 OFFICE STLMLC STLMLC [id number] Co mmon 00:00:00 00:00:00 VISIT [facility] ESTAB PT - CHI LEVEL 4 [facility] 2021-08-27 2021-08-27 (TEL) STLMLC STLMLC [id number] Co mmon 00:00:00 00:00:00 [facility] 2021-08-04 2021-08-04 (TEL) STLMLC STLMLC [id number] Co mmon 00:00:00 00:00:00 [facility] 2021-08-02 2021-08-02 OFFICE STLMLC STLMLC [id number] Co mmon 00:00:00 00:00:00 VISIT [facility] LEVEL 4 [facility] 2021-07-22 2021-07-22 Outpatient Vanesa Cheung HCAPM RADI LA0 [id number] [facility] 08:00:00 08:00:00 63 [facility] 2021-07-03 2021-07-03 Emergency Marc, [facility] 1.2.840.114 [id number] Univers 19:47:00 21:16:00 Raissa Alvarez 350.1.13.10 ity [facility] 4.2.7.2.686 [facility] [id number] [place] [address] Branch 2021-07-03 2021-07-03 Emergency X [place] ERT [id number] Univers 19:47:00 19:47:00 ity of [facility] 2021-06-07 2021-06-07 Outpatient STLMLC STLMLC [id number] Common 00:00:00 00:00:00 [facility] 2021-05-06 2021-05-06 Outpatient STLMLC STLMLC [id number] Common 00:00:00 00:00:00 [facility] 2021-04-28 2021-04-28 Outpatient STLMLC STLMLC [id number] Common 00:00:00 00:00:00 [facility] 2021-04-27 2021-04-27 Outpatient STLMLC STLMLC [id number] Common 00:00:00 00:00:00 [facility] 2021-03-15 2021-03-15 Outpatient STLMLC STLMLC [id number] Common 00:00:00 00:00:00 [facility] 2021-01-04 2021-01-04 Outpatient STLMLC STLMLC [id number] Common 00:00:00 00:00:00 [facility] 2020-11-03 2020-11-03 Outpatient STLMLC STLMLC [id number] Common 00:00:00 00:00:00 [facility] 2020-08-03 2020-08-03 Outpatient STLMLC STLMLC [id number] Common 00:00:00 00:00:00 [facility] 2020-05-04 2020-05-04 [facility] [id number] Common 10:10:00 10:10:[address] [place] [address] [facility] 2020-05-01 2020-05-01 Outpatient [facility] [id number] Common 09:40:00 09:40:00 [place] [address] [facility] 2020-02-19 2020-02-19 Out[facility] [id number] Common 16:06:00 16:06:[address] [facility] [address] [facility] 2019-12-12 2019-12-12 Outpatient [facility] [id number] Common 15:41:00 15:41:00 [place] [address] [facility] 2019-09-16 2019-09-16 Outpatient [facility] [id number] Common 14:40:00 14:40:00 [place] [address] [facility] 2019-08-15 2019-08-15 Outpatient [facility] [id number] Common 09:27:00 09:27:00 [place] [address] [facility] 2019-08-12 2019-08-12 Outpatient [facility] [id number] Common 09:00:00 09:00:00 [place] [address] [facility] 2019-07-31 2019-07-31 Outpatient [facility] [id number] Common 11:46:00 11:46:00 [place] [address] [facility] 2019-07-29 2019-07-29 Outpatient [facility] [id number] Common 09:40:00 09:40:00 [place] [address] [facility] 2019-06-02 2019-06-02 Outpatient [facility] [id number] Common 09:38:00 09:38:00 t Urgent Urgent Care S pirit Care [facility] 2019-05-31 2019-05-31 Outpatient [facility] [id number] Common 11:30:00 11:30:00 t Urgent Ur[facility] S p[facility] Care [facility] 2018-01-19 2018-01-19 Outpatient [facility] [id number] Common 08:11:00 08:11:00 [place] [address] [facility] 2018-01-18 2018-01-18 Outpatient [facility] [id number] Common 10:15:00 10:15:00 [place] [address] [facility] 2017-12-26 2017-12-26 Outpatient [facility] [id number] Common 09:30:00 09:30:00 [place] [address] [facility] 2008-10-21 2008-10-21 Outpatient [facility] [id number] [facility] 00:00:00 11:14:00 1 [facility] Results Test Description Test Time Test Comments Results Result Comments Source CHEMISTRY 2023-05-27 11:57:00 Test Item Value Reference Range Interpretation Comme nts Glucose Lvl (test code = Glucose Lvl) 113 70-99 [id number] 11:57:00 Test Item Value Reference Range Interpretation Comments BUN (test code = BUN) 8 7-22 [id number] 11:57:00 Test Item Value Reference Range Interpretation Comments Creatinine Lvl (test code = Creatinine 0.80 0.50-1.40 Lvl) [id number] 11:57:00 Test Item Value Reference Range Interpretation Comments Sodium Lvl (test code = Sodium Lvl) 141 135-145 [facility]ZvmgermRCVMXRMCG0381-05-95 11:57:00 Test Item Value Reference Range Interpretation Comments Potassium Lvl (test code = Potassium 4.1 3.5-5.1 Lvl) [facility] HospitalIgajpnhAPOPPMMZK1690-55-79 11:57:00 Test Item Value Reference Range Interpretation Comments Chloride Lvl (test code = Chloride Lvl) 110 95-109 [facility] AtlantaFhmmawpQRDGVQBRA4781-39-98 11:57:00 Test Item Value Reference Range Interpretation Comments CO2 (test code = CO2) 26 24-32 [place] [address]-09-02 11:57:00 Test Item Value Reference Range Interpretation Comments Calcium Lvl (test code = Calcium Lvl) 8.9 8.5-10.5 [facility] AtlantaIquzywkBASHPCMUZ5352-51-22 11:57:00 Test Item Value Reference Range Interpretation Comments AGAP (test code = AGAP) 9.1 10.0-20.0 [place] [address]-09-02 11:57:00 Test Item Value Reference Range Interpretation Comments eGFR (test code = eGFR) 91 [facility] AtlantaBjsqomiYMLRANQWS2269-85-75 11:57:00 Test Item Value Reference Range Interpretation Comments Magnesium Lvl (test code = Magnesium 2.6 1.8-2.4 Lvl) [facility]ZhjdadhGPJFWQTPDQ1514-14-70 11:57:00 Test Item Value Reference Range Interpretation Comments WBC X 10x3 (test code = WBC X 10x3) 9.8 3.7-10.4 [place] [address]-09-02 11:57:00 Test Item Value Reference Range Interpretation Comments RBC X 10x6 (test code = RBC X 10x6) 4.37 4.20-5.40 [place] [address]-09-02 11:57:00 Test Item Value Reference Range Interpretation Comments Hgb (test code = Hgb) 11.3 12.0-16.0 [place] [address]-09-02 11:57:00 Test Item Value Reference Range Interpretation Comments Hct (test code = Hct) 35.0 36.0-48.0 [place] [address]-09-02 11:57:00 Test Item Value Reference Range Interpretation Comments MCV (test code = MCV) 80.0 80.0-98.0 [place] [address]-09-02 11:57:00 Test Item Value Reference Range Interpretation Comments MCH (test code = MCH) 25.8 pg 27.0-31.0 [place] 366063-09-02 11:57:00 Test Item Value Reference Range Interpretation Comments MCHC (test code = MCHC) 32.2 32.0-36.0 [facility] CenterBjwbowbGFFZFBOWDY6706-15-14 11:57:00 Test Item Value Reference Range Interpretation Comments RDW (test code = RDW) 15.8 11.5-14.5 [facility] CenterNkinhbqBLDLPTFYPL4984-67-28 11:57:00 Test Item Value Reference Range Interpretation Comments Platelet (test code = Platelet) 378 133-450 [facility] CenterZwrhiyuRUEBWWNKBT5685-85-69 11:57:00 Test Item Value Reference Range Interpretation Comments MPV (test code = MPV) 8.1 7.4-10.4 [facility] CenterJpztewdCMQCXGTBXP3810-72-37 11:57:00 Test Item Value Reference Range Interpretation Comments Segs (test code = Segs) 70.7 45.0-75.0 [facility] CenterEutxtzxMPVJIXSNFZ6183-99-30 11:57:00 Test Item Value Reference Range Interpretation Comments Lymphocytes (test code = Lymphocytes) 22.0 20.0-40.0 [facility] CenterUwiuwdkDPPYZRIESN2658-17-51 11:57:00 Test Item Value Reference Range Interpretation Comments Monocytes (test code = Monocytes) 6.3 2.0-12.0 [facility] CenterNybselcVENYSZFLHA6996-55-78 11:57:00 Test Item Value Reference Range Interpretation Comments Basophils (test code = Basophils) 1.0 <=1.0 [facility] CenterJkxdhrmSHJJMPABBA3096-25-46 11:57:00 Test Item Value Reference Range Interpretation Comments Neutrophils # (test code = Neutrophils 7.0 1.5-8.1 #) [facility] CenterBanagjqENBCMGLBJG6036-42-84 11:57:00 Test Item Value Reference Range Interpretation Comments Lymphocytes # (test code = Lymphocytes 2.2 1.0-5.5 #) [facility] CenterBfkjxdaHRXPNYHZHU4388-54-56 11:57:00 Test Item Value Reference Range Interpretation Comments Monocytes # (test code = Monocytes #) 0.6 <=0.8 [facility] CenterOmhvfmkBECDOPWNUE5936-23-74 11:57:00 Test Item Value Reference Range Interpretation Comments Basophils # (test code = Basophils #) 0.1 <=0.2 [facility] CenterSoktxodFNKWTAVMQE6927-10-90 21:30:00 Test Item Value Reference Range Interpretation Comments POC Activated Clotting Time (test code 232 s = POC Activated Clotting Time) [facility] FQUVHNH7280-96-88 17:00:00 Test Item Value Reference Range Interpretation Comments RBC product (test code Product available = RBC product) (05/26/23 12:00 PM) [facility] AtlantaOyekfsfEQRJSPBWE5090-35-96 15:07:00 Test Item Value Reference Range Interpretation Comments U Preg (test code = U Negative (05/26/23 10:07 Preg) AM) [facility] AtlantaYxpskfuILQYAXYGP5756-47-33 14:56:00 Test Item Value Reference Range Interpretation Comments POC Sodium (test code = POC Sodium) 142 135-145 [facility] AtlantaKugjckvLPAYSRTQD2262-36-33 14:56:00 Test Item Value Reference Range Interpretation Comments POC Potassium (test code = POC 3.9 3.5-5.1 Potassium) [facility] AtlantaHxdjbjbIHXSOKBNV5116-90-46 14:56:00 Test Item Value Reference Range Interpretation Comments POC Chloride (test code = POC Chloride) 105 95-109 [facility] AtlantaSsbstiqSWETGIICI3290-56-78 14:56:00 Test Item Value Reference Range Interpretation Comments POC Carbon Dioxide (test code = POC 25 24-32 Carbon Dioxide) [facility] AtlantaUdqouolIBANLLSHI9679-73-86 14:56:00 Test Item Value Reference Range Interpretation Comments POC BUN (test code = POC BUN) 7 7-22 [facility] AtlantaCgvnbmmWINILYUQK9206-91-79 14:56:00 Test Item Value Reference Range Interpretation Comments POC Creatinine (test code = POC 0.7 0.5-1.4 Creatinine) [facility] AtlantaWmomnsaOOGGCFPJH1639-77-04 14:56:00 Test Item Value Reference Range Interpretation Comments POC Glucose (test code = POC Glucose) 89 70-99 [facility] AtlantaSxksisuXRGMLUGEV6787-61-05 14:56:00 Test Item Value Reference Range Interpretation Comments POC Ion Ca (test code = POC Ion Ca) 1.22 1.05-1.25 [facility] AtlantaRipozlyIJCWGLQLJ4683-99-69 14:56:00 Test Item Value Reference Range Interpretation Comments POC Hemoglobin (test code = POC 13.3 12.0-16.0 Hemoglobin) [facility] AtlantaIezqlfaVIVDMBMVD3758-19-89 14:56:00 Test Item Value Reference Range Interpretation Comments POC Hematocrit (test code = POC 39.0 36.0-48.0 Hematocrit) [facility] AtlantaSjphzezRQXVLUTDM2971-91-64 14:56:00 Test Item Value Reference Range Interpretation Comments POC AGAP (test code = POC AGAP) 16.0 10.0-20.0 [facility] CenterOirzzzqEEXAIGFEQ6508-18-36 14:56:00 Test Item Value Reference Range Interpretation Comments eGFR (test code = eGFR) 107 [facility] VIBGOSK9009-49-83 14:33:00 Test Item Value Reference Range Interpretation Comments ABO/Rh (test code = ABO/Rh) A POS [facility] CenterReInnervateAppLabs [facility] ZTNKUZL3968-06-67 14:33:00 Test Item Value Reference Range Interpretation Comments Antibody Scrn (test Negative (05/24/23 9:33 code = Antibody Scrn) AM) [facility] AtlantaPijqttnXQNQEWPYI5736-41-63 14:33:00 Test Item Value Reference Range Interpretation Comments Total Protein (test code = Total 8.5 6.4-8.4 Protein) [facility] AtlantaYfanjzpQUYATZXBL5085-84-19 14:33:00 Test Item Value Reference Range Interpretation Comments Albumin Lvl (test code = Albumin Lvl) 3.2 3.5-5.0 [facility] CenterOrpurrjYHKVXOOAC9801-89-42 14:33:00 Test Item Value Reference Range Interpretation Comments ALT (test code = ALT) 28 <=65 [facility] CenterLthwevyQILDBVUCE5832-32-35 14:33:00 Test Item Value Reference Range Interpretation Comments AST (test code = AST) 19 <=37 [facility] CenterBovgxxbTWIYFEWUP1467-34-42 14:33:00 Test Item Value Reference Range Interpretation Comments Alk Phos (test code = Alk Phos) 51 39-136 [facility] AtlantaOwniozuMJHTXVNPU5795-22-87 14:33:00 Test Item Value Reference Range Interpretation Comments Bili Total (test code = Bili Total) 0.5 0.2-1.3 [facility] CenterNjmscwjZTUHYBFUV5599-62-58 14:33:00 Test Item Value Reference Range Interpretation Comments Bili Direct (test code = Bili Direct) 0.1 <=0.3 [facility] CenterFcegiskJIQYFSSOI7962-87-17 14:33:00 Test Item Value Reference Range Interpretation Comments Bili Indirect (test code = Bili 0.4 <=1.0 Indirect) [facility] AtlantaYbvtqjvHTWRIVGDF6615-46-78 14:33:00 Test Item Value Reference Range Interpretation Comments Globulin (test code = Globulin) 5.3 2.7-4.2 [facility] HospitalGumqkxfYWNNIWRDV2200-25-12 14:33:00 Test Item Value Reference Range Interpretation Comments A/G Ratio (test code = A/G Ratio) 0.6 1 0.7-1.6 [facility]awKoigxukPKWPDCFAVB3058-89-08 13:55:00 Test Item Value Reference Range Interpretation Comments PT (test code = PT) 13.5 s 12.0-14.7 [facility]awGnahfqhQLWQHNAZAZ9421-25-34 13:55:00 Test Item Value Reference Range Interpretation Comments INR (test code = INR) 1.03 1 0.85-1.17 [facility]awKcprhqhWUCVCAZQIW9283-39-95 13:55:00 Test Item Value Reference Range Interpretation Comments PTT (test code = PTT) 26.1 s 22.9-35.8 [facility]aginawZxumavlPXFHRWLUKF2917-02-02 12:46:00 Test Item Value Reference Range Interpretation Comments Eosinophils (test code = Eosinophils) 1.1 <=4.0 [facility]aginawWxjqiumWPZGBQLWBT9257-55-65 12:46:00 Test Item Value Reference Range Interpretation Comments Eosinophils # (test code = Eosinophils 0.1 <=0.5 #) [facility] (COVID-19), RT-PCR/WGO7030-91-30 07:26:55 Test Item Value Reference Interpretation Comments Range SARS-CoV-2 NEGATIVE SEE NOTE SARS-CoV-2 RNA NOT INTERPRETATION DETECTEDNegat papo (test code = 90080) results do not preclude SARS-C oV-2 infection [...] (test code = NASOPHARYNGEAL [place]: [place] [address]) Ro Charito [place] l-Time RT-PCR. The exp ected result or refer ence range is NEGATI VE (Not Detected). For more information reg arding COVID-19 testin g to include clinicalinforma tion, methodology det ail, intended use, F DA authorization andrecommended fact sheets for carlos ents or healthcare prov iders, see [employer] Announcement: SARS-CoV-2 (COV ID-19) by NAAT at URL below (note,fact shee ts are provided by met hod given in report:https:// [email or web address].com/[email or web address] ians/cl ient-communicat ions/ Alternatively, see downloadable PD F fact sheet at:https://www. [employer]/COVID-19-R T-PCR UNLESS OTHERWIS E INDICATED, ALL TESTING PERFORMED [facility], [facility]. [address] [place] [id number] [place] [address] DIRECTOR: PRUDENCE SOLIS M.D. CLIA NUMBER [id number] CAP ACCREDITATION N O. [id number] SARS-CoV-2 (COVID-19) by RT-PCR (HIGH RISK)2021-12-10 00:00:00 Test Item Value Reference Range Interpretation Comments SARS-CoV-2 INTERPRETATION NEGATIVE (test code = 99758) SOURCE (test code = 08992) NASOPHARYNGEAL SARS-CoV-2 (COVID-19) by RT-PCR (HIGH RISK)2021-12-10 00:00:00 Test Item Value Reference Range Interpretation Comments SARS-CoV-2 INTERPRETATION NEGATIVE (test code = 17172) SOURCE (test code = 86624) NASOPHARYNGEAL SARS-CoV-2 (COVID-19) by RT-PCR (HIGH RISK)2021-12-10 00:00:00 Test Item Value Reference Range Interpretation Comments SARS-CoV-2 INTERPRETATION NEGATIVE (test code = 64637) SOURCE (test code = 17114) NASOPHARYNGEAL Lipid Panel w/ Chol/HDL Zzchv1479-45-72 00:00:00 Test Item Value Reference Range Interpretation Comments Cholesterol, Total (test code = 3-3) 186 100-199 Triglycerides (test code = 2571-8) 86 0-149 HDL Cholesterol (test code = 2084-9) 59 >39 T. Chol/HDL Ratio (test code = 9830-1) 3.2 0.0-4.4 JOSÉ w/Reflex if Gnvjcebw5228-39-80 00:00:00 Test Item Value Reference Range Interpretation Comments JOSÉ Direct (test code = 8061-4) Negative Negative Comp. Metabolic Panel (14) ([facility])2021-08-02 00:00:00 Test Item Value Reference Range Interpretation Comments Glucose (test code = 2345-7) 75 65-99 BUN (test code = 3094-0) 10 6-24 Creatinine (test code = 2160-0) 0.74 0.57-1.00 eGFR If NonAfricn Am (test code = 97 >59 39108-9) eGFR If Africn Am (test code = 04150-2) 112 >59 BUN/Creatinine Ratio (test code = 14 06-17 3097-3) Sodium (test code = 2951-2) 141 134-144 Potassium (test code = 2823-3) 3.7 3.5-5.2 Chloride (test code = 2075-0) 102 96-106 Carbon Dioxide, Total (test code = -2028-05) Calcium (test code = 08333-3) 9.6 8.7-10.2 Protein, Total (test code = 2885-2) 8.8 6.0-8.5 Albumin (test code = 1751-7) 4.6 3.8-4.8 Globulin, Total (test code = 01967-0) 4.2 1.5-4.5 A/G Ratio (test code = 1759-0) 1.1 1.2-2.2 Bilirubin, Total (test code = 1974-2) 0.6 0.0-1.2 Alkaline Phosphatase (test code = 76 44-121 6768-6) AST (SGOT) (test code = 1920-8) 20 0-40 ALT (SGPT) (test code = 1742-6) 19 0-32 CBC With Differential/Fhymrwic7148-39-23 00:00:00 Test Item Value Reference Range Interpretation [...] Granulocytes (test code = 0 Not Estab. 76284-1) Immature Grans (Abs) (test code = 0.0 0.0-0.1 28274-9) NRBC (test code = 58898-2) Hematology Comments: (test code = 88095-0) Rheumatoid Arthritis Bideik0833-39-57 00:00:00 Test Item Value Reference Range Interpretation Comments Rheumatoid Factor (RF) (test code = <10.0 0.0-13.9 83871-7) C-Reactive Protein, Quant (CRP)2021-08-02 00:00:00 Test Item Value Reference Range Interpretation Comments C-Reactive Protein, Quant (test code = 13 0-10 1987-) Vitamin D, 48-Skvfnun5517-06-08 00:00:00 Test Item Value Reference Range Interpretation Comments Vitamin D, 25-Hydroxy (test code = 24.0 30.0-100.0 1988-) - CT ABD PELVIS W/KQAS0923-86-15 09:50:00 [facility] 1975 Sex: F Name: SHE FITZGERALD [facility] : 1975 Age/S: 46 / F [address] Unit #: [id number] Loc: [place] [address] Phys: Vanesa Nunez MD Acct: [id number] Dis Date: Status: REG CLI PHONE #: [phone] Exam Date: 07/22/2021917 FAX #: Reason: CROHNS DISEASE, UNSPECIFIED, WITHOUT COMPLICATI EXAMS: CPT: [id number] CT ABD PELVIS W/CONT 91623 HISTORY: CROHN'S DISEASE, UNSPECIFIED, WITHOUT COMPLICATIONS TECHNIQUE: [...] portal vein is patent. No evidence of a scites. Abdominal wall is intact. No significant bone lesions. PAGE 1 Signed Report (CONTINUED) Name: SHE FITZGERALD : 1975 Age/S: 46 / F [address] [facility] [address] Unit #: [id number] Loc: [place] [address] Phys: Vanesa Nunez MD Acct: [id number] Dis Date: Status: REG CLI PHONE #: Exam Date: 07/22/2021917 FAX #: Reason: CROHNS DISEASE, UNSPECIFIED, WITHOUT COMPLICATIEXAMS: CPT: [id number] CT ABD PELVIS W/CONT 42204 (Continued) IMPRESSION: 1. There is mild diffuse [...] Beang Technologist:Mukul Ryan, RT(R) CTDI: DLP: Trnscb Date/Time:07/22/2021 (0950) t.[email or web address] Orig Print D/T: S: 07/22/2021 (0953) PAGE 2 Signed KyakieSZVLJ-CEE4228-72-28 08:27:00 Test Item Value Reference Range Interpretation Comments ISTAT-BUN (test code = BUNP) 8 mg/dL 8-26 N BEDSIDE MVSJVUFSKW7489-07-93 08:27:00 Test Item Value Reference Range Interpretation Comments BEDSIDE CREATININE (test code = 0.6 mg/dL 0.6-1.3 N CREATBED) SARS-COV-2 (COVID19), NAAT [ADDED]2020-10-02 00:00:00 Test Item Value Reference Range Interpretation Comments SARS-CoV-2 INTERPRETATION (test NEGATIVE code = 02284) SOURCE (test code = 56971) NOT SPECIFIED SARS-COV-2 (COVID19), NAAT [ADDED]2020-10-02 00:00:00 Test Item Value Reference Range Interpretation Comments SARS-CoV-2 INTERPRETATION (test NEGATIVE code = 06680) SOURCE (test code = 05615) NOT SPECIFIED SARS-COV-2 (COVID19), NAAT [ADDED]2020-10-02 00:00:00 Test Item Value Reference Range Interpretation Comments SARS-CoV-2 INTERPRETATION (test NEGATIVE code = 20385) SOURCE (test code = 11054) NOT SPECIFIED SARS-CoV-2 (COVID-19) by RT-PCR (HIGH RISK)2020-04-17 00:00:00 Test Item Value Reference Range Interpretation Comments SARS-CoV-2 INTERPRETATION (test NEGATIVE code = 11606) SOURCE (test code = 45569) NOT SPECIFIED SARS-CoV-2 (COVID-19) by RT-PCR (HIGH RISK)2020-04-17 00:00:00 Test Item Value Reference Range Interpretation Comments SARS-CoV-2 INTERPRETATION (test NEGATIVE code = 41857) SOURCE (test code = 09782) NOT SPECIFIED SARS-CoV-2 (COVID-19) by RT-PCR (HIGH RISK)2020-04-17 00:00:00 Test Item Value Reference Range Interpretation Comments SARS-CoV-2 INTERPRETATION (test NEGATIVE code = 35528) SOURCE (test code = 67168) NOT SPECIFIED POC, COVID 19 Antigen + Flu by SofiaPOC, COVID 19 Antigen + Flu by Jennifer Notes Date/Time Note Provider Source 2023-05-01 11:26:15 0487-44-99X77:26:15Formatting of [place] foster RN [facility] this note might be different from the original.Images from the original note were not included.New device: choice mask, reg tubing APAP therapy pressure settings 5-03hvS8J with EPR:3cmH2O, Ramp time: 30 minutes, Starting pressure: 4cmH2O and heated humidification with choice mask. DME Per insurance coverage New start DME The following has been sent to the provider for completion via parachute/FAX Orders pended for [employer] company Prescription for BIPAP Sleep study /data report dated - 04/11/23 Demographics - Face sheet Insurance Information Progress Notes from office visit prior to sleep study - 03/20/23 Follow up due 31-90 days following initiation of any device. 91791-7Gboanpteu encounter DnlpHN0469-98-96T70:59:31Telepho ne encounter NoteTXT1.2.840.637562.1.13.104.2 .7.2.073350|[id number] e for patient fjhk49882-8EwytEF738579353Gbgjsa Jennifer [address] KpseIjsiblqiiJzoxzsmaaFCKV405297 8072PGQYQOKYJNAVXJKPPNLPJM3514-6 :59:311.2.840.722049.1.72 .3.15|1.2.840.966568.1.13.104.2. 7.2.727879_[id number] 2023-04-17 08:08:01 3171-64-12R98:08:01Formatting of Yesica quintero RN [facility] this note might be different from the original.Spoke with patient who states she went to the ER on Monday with severe leg cramps and nausea. She was taken off Dyazide because the leg cramps can be a side effect. She was started on chlorthalidone 25 mg daily. She started this medication yesterday. Her BP yesterday was 160/100. She states she does not having the swelling in hands/feet at this time. Advised her to watch BP pressure and call clinic if it continues to be elevated. 24152-8Fvlugcssp encounter FldhGJ4403-83-44E13:14:41Telepho ne encounter NoteTXT1.2.840.900465.1.13.104.2 .7.2.646139|[id number] e for patient fzlr360419239Cleh Sheavly RN[address]TXTX[address] 7439QXQOMJOXKUCHNACAAHAPLZ5516-6 7-24T08:14:411.2.840.513520.1.72 .3.15|1.2.840.570305.1.13.104.2. 7.2.727879_[id number] 2023-04-15 08:43:37 2777-36-68F98:43:37Formatting of [facility] this note might be different from the original.She Fitzgerald is a 48 year old female Pt is calling to let the know that her Rx med. Prescribed by the on 04/13/23 was stopped by the providers at the ED today . 85586-7Ystvhppjg encounter UsbhKY4040-48-92Y89:48:35Telepho ne encounter NoteTXT1.2.840.096390.1.13.104.2 .7.2.857957|[id number] e for patient [id number] Fati[address]TXTX[address] 1584VIHPQHHZOJYTLQRSZPHEWR4863-1 7-22T08:48:351.2.840.359149.1.72 .3.15|1.2.840.201969.1.13.104.2. 7.2.727879_[id number] 2023-04-14 13:42:32 4656-26-38K99:42:32Formatting of Jamarcus Pinedae [facility] this note might be different from the original.Pt has been scheduled with Dr. Osorio. 59525-8Iuiuppedb encounter CbylLK5148-44-75C23:43:02Telepho ne encounter NoteTXT1.2.840.522334.1.13.104.2 .7.2.122717|[id number] e for patient vnth472050374Eftioeyt [address]TX[address] 8868XIKJXENMAKIQPEZCAHCVDK3691-2 7-21T13:43:021.2.840.408619.1.72 .3.15|1.2.840.326928.1.13.104.2. 7.2.727879_[id number] 2023-04-13 11:57:25 2428-96-00I85:57:25Formatting of Marya martínez [facility] this note might be different from the original.Will route to PSS for scheduling. 42491-8Ajgknkaip encounter KdwdVL6254-58-42R88:58:39Telepho ne encounter NoteTXT1.2.840.129220.1.13.104.2 .7.2.521148|[id number] e for patient [id number] Castillo MA[address]TX[address] 8141IYZIZCJURYSVHVJCUPKJCJ1431-8 7-20T11:58:391.2.840.242781.1.72 .3.15|1.2.840.523314.1.13.104.2. 7.2.727879_[id number] 2023-04-13 11:53:49 8791-71-14T46:53:49Formatting of [facility] this note might be different from the original.Also make appointment with sleep medicine Dr. Osorio for sleep apnea. Sleep apnea can cause swelling and high blood pressure. 72513-8Ruwxihgww encounter KglqLJ8399-31-73U09:53:53Telepho ne encounter NoteTXT1.2.840.788857.1.13.104.2 .7.2.190822|[id number] e for patient [address] 1623YQYGAWJOTTMAXLJEPBCWBP9326-6 7-20T11:53:531.2.840.039539.1.72 .3.15|1.2.840.155337.1.13.104.2. 7.2.727879_[id number] 2023-04-13 11:41:54 5211-06-32R58:41:54Formatting [facility] this note might be different from the original.Called patient with Dr. Trevizo recommendation to start the new medication and Keep BP log, patient verbalized understanding with no further questions. Sent new Rx to patient pharmacy of choice. Dr. Trevizo also wants her to see Dr. Osorio for sleep apena, patient stated she just had her sleep stud done Monday04/10/23 64188-8Ifhcitwdb encounter JxpcEE7729-01-03P53:52:36Telepho ne encounter NoteTXT1.2.840.931802.1.13.104.2 .7.2.194949|[id number] e for patient [address] 2680WHSIRFEHHDNCIXCMZVBKST1207-0 :52:361.2.840.394806.1.72 .3.15|1.2.840.054097.1.13.104.2. 7.2.727879_[id number] 2023-04-13 11:34:09 7705-33-05G53:34:09Formatting of [facility] this note might be different from the original.Also make appointment with sleep medicine Dr. Osorio for sleep apnea. Sleep apnea can cause swelling and high blood pressure. 48967-0Yrewcndwp encounter EwvsCY0733-10-47W87:34:30Telepho ne encounter NoteTXT1.2.840.591621.1.13.104.2 .7.2.154514|[id number] e for patient [address] 8584ODAELXSYGINOIBVSANDXIP1159-5 :34:301.2.840.541298.1.72 .3.15|1.2.840.604044.1.13.104.2. 7.2.727879_[id number] 2023-04-13 11:31:59 7655-21-40M23:31:59Formatting [facility] this note might be different from the original.Add Dyazide 37.5/25 mg daily. Keep BP log. Keep appointment as scheduled. Low-salt diet. 62850-9Zfjcwpqum encounter ClvnLU3279-62-17F68:32:33Telepho ne encounter NoteTXT1.2.840.561005.1.13.104.2 .7.2.819166|[id number] e for patient [address] 0663NXPQYNVVAHLNHLAVUXMGVJ6137-5 1:32:331.2.840.358933.1.72 .3.15|1.2.840.672887.1.13.104.2. 7.2.727879_[id number] 2023-04-13 11:24:54 1971-48-36T86:24:54Formatting of [facility] this note might be different from the original.Will route to Dr. Trevizo for further assistance 37601-9Uenucnerf encounter XwuwUS1443-98-64G22:25:55Telepho ne encounter NoteTXT1.2.840.241113.1.13.104.2 .7.2.934809|[id number] e for patient [address] 5500OWPSUFBRJAAYTSIOOHJIRK1776-8 7-20T11:25:551.2.840.063270.1.72 .3.15|1.2.840.665498.1.13.104.2. 7.2.727879_[id number] 2023-04-13 10:08:51 3265-22-07P39:08:51Formatting of Niko Tabor [facility] this note might be different from the original.She Fitzgerald is a 48 year old femalePt is having high blood pressure and swelling in hand and legs Please advise [phone] (home) [phone] (work) 52738-1Zoafuagwb encounter ZufnQW2703-76-94O26:09:34Telepho ne encounter NoteTXT1.2.840.651631.1.13.104.2 .7.2.615351|[id number] e for patient [id number] M Rashid[address]Gal[address] 3731MGROEKISGIOPLJGEAXCXKD5429-8 0:09:341.2.840.161379.1.72 .3.15|1.2.840.280702.1.13.104.2. 7.2.727879_[id number] 2023-03-20 15:20:00 1353-03-40I96:20:00 Addended by: [facility] LICO TREVIZO MD on: 04/13/2023 11:34 AM Modules accepted: Orders 11674-7Optsonmp VupgumlbRG1090-14-12I18:34:05Add endum [id number] lab for patient [id number]"
--- NOTE | 2023-08-19 14:26 | RAD REPORT ---
EXAM DESCRIPTION: RAD - Chest Pa And Lat (2 Views) - 08/19/2023 2:16 pm CLINICAL HISTORY: CHEST PAIN Chest pain. COMPARISON: Chest Single View dated 08/12/2023; Chest Single View dated 06/14/2023; Chest Single View dated 05/17/2023; Chest Single View dated 04/17/2023; Chest For Pe Angio dated 08/13/2023 FINDINGS: The lungs are clear. The heart is upper limit of normal in size. No displaced fractures. IMPRESSION: No acute or concerning finding suspected.
[2023-08-19 14:54] LABS: SARS-COV-2 RT PCR NEGATIVE (NEGATIVE)
--- NOTE | 2023-08-19 16:23 | ER ---
Nurse's Notes [facility] Name: Dori Guardado Age: 48 yrs Sex: Female : 1975 Arrival Date: 08/19/2023 Time: 13:41 Bed 14 Private MD: Diagnosis: Viral infection, unspecified;Chest pain on breathing Presentation: 08/19 13:47 Chief complaint: Patient states: Left side, mid axillary hurts upon inspiration. Chest ko1 hurts when inhaling. Congestion, has felt warm but unsure of fever. Coronavirus screen: congestion, cough unrelated to allergies, sore throat, Client presents with at least one sign or symptom that may indicate coronavirus-19. Standard/surgical mask placed on the client. Ebola Screen: No symptoms or risks identified at this time. Initial Sepsis Screen: Does the patient meet any 2 criteria? No. Patient's initial sepsis screen is negative. Does the patient have a suspected source of infection? No. Patient's initial sepsis screen is negative. Risk Assessment: Do you want to hurt yourself or someone else? Patient reports no desire to harm self or others. Onset of symptoms was August 19, 2023. 13:47 Method Of Arrival: Ambulatory ko1 13:47 Acuity: KASH 4 ko1 Triage Assessment: 13:52 General: Appears ill, Behavior is calm, cooperative, appropriate for age. Pain: ko1 Complains of pain in left side and chest when inhaling. EENT: Reports nasal congestion pain when swallowing. [employer]: 13:52 LMP N/A - Hysterectomy, Not ko1 Historical: - Allergies: 13:52 No Known Allergies; ko1 - PMHx: 13:52 Atrial Fib; bowel obstruction; Crohn's; Hypertension; ko1 - PSHx: 13:52 partial hysterectomy; Cholecystectomy; section; Appendectomy; ko1 - Immunization history:: Adult Immunizations up to date. - Social history:: Smoking status: Patient denies any tobacco usage or history of. Screenin:13 [facility] ED Fall Risk Assessment (Adult) History of falling in the last 3 months, cm10 including since admission No falls in past 3 months (0 pts). [facility] ED Fall Risk Assessment (Adult) Confusion or Disorientation No (0 pts) Intoxicated or Sedated No (0 pts) Impaired Gait No (0 pts) Mobility Assist Device Used No (0 pt) Altered Elimination No (0 pt) Score/Fall Risk Level 0 - 2 = Low Risk Oriented to surroundings, Maintained a safe environment, Hourly rounding (assess needs \T\ fall precautionary measures) done. Abuse screen: Denies threats or abuse. Denies injuries from another. Nutritional screening: No deficits noted. Tuberculosis screening: No symptoms or risk factors identified. Assessment: 14:12 General: Appears in no apparent distress. comfortable, Behavior is calm, cooperative. cm10 Neuro: No deficits noted. Level of Consciousness is awake, alert, Oriented to person, place, time, situation. Cardiovascular: No deficits noted. Heart tones present Patient's skin is warm and dry. Respiratory: No deficits noted. Airway is patent Respiratory effort is even, unlabored, Respiratory pattern is regular, symmetrical, Breath sounds are clear bilaterally. Respiratory: Reports cough that is productive. GI: No deficits noted. No signs and/or symptoms were reported involving the gastrointestinal system. EENT: Throat is pink. 15:32 Reassessment: No changes from previously documented assessment. Patient and/or family cm10 updated on plan of care and expected duration. Pain level reassessed. Patient is alert, oriented x 3, equal unlabored respirations, skin warm/dry/pink. Vital Signs: 13:47 BP 147 / 101; Pulse 58; Resp 18; Temp 97.3; Pulse Ox 100% ; ko1 16:31 BP 130 / 88; Pulse 60; Resp 18; Pulse Ox 100% on R/A; cm10 ED Course: 13:46 Patient arrived in ED. mg5 13:47 Kim Geiger, DORIS is PHCP. snw 13:47 Emerita Lynch MD is Attending Physician. snw 13:52 Triage completed. ko1 13:52 Arm band placed on right wrist. Patient placed in an exam room, on a stretcher, on ko1 pulse oximetry, Patient notified of wait time. 14:12 COVID-19/FLU A+B Sent. cm10 14:13 No provider procedures requiring assistance completed. cm10 14:18 Chest Pa And Lat (2 Views) XRAY In Process Unspecified. EDMS 15:16 Strep Sent. cm10 15:32 Janel Dejesus, RN is Primary Nurse. cm10 16:35 Patient has correct armband on for positive identification. Provided Education on: ER cm10 process and procedures. . 16:35 Patient did not have IV access during this emergency room visit. cm10 Administered Medications: No medications were administered Medication: 14:13 VIS not applicable for this client. cm10 Outcome: 16:22 Discharge ordered by . cristina 16:35 Discharged to home ambulatory, cm10 16:35 Condition: good 16:35 Discharge instructions given to patient, Instructed on discharge instructions, follow up and referral plans. Demonstrated understanding of instructions, follow-up care, 16:36 Patient left the ED. cm10 Signatures: Dispatcher [employer] EDMS Kim Geiger, LOZENGE MAKER HELPER-C LOZENGE MAKER HELPER-Csnw Kelin Clement RN RN ko1 Janel Dejesus RN RN cm10 Janeth Hickey mg5
--- NOTE | 2023-08-19 16:23 | EDPHYS ---
Physician Documentation [facility] Name: Dori Guardado Age: 48 yrs Sex: Female : 1975 Arrival Date: 08/19/2023 Time: 13:41 Bed 14 Private MD: ED Physician Emerita Lynch HPI: 08/19 16:19 This 48 yrs old Black Female presents to ER via Ambulatory with complaints of snw Chest/Side Pain, Difficulty Swallowing, Sore Throat. 16:19 Onset: The symptoms/episode began/occurred suddenly, and became persistent. Associated snw signs and symptoms: Pertinent positives: congestion, sore throat, malaise. It is unknown whether or not the patient has had similar symptoms in the past. It is unknown whether or not the patient has recently seen a physician. Pt notified while in ED her Sister dx with influenza . 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 - Social history:: Smoking status: Patient denies any tobacco usage or history of. ROS: 16:18 Eyes: Negative for injury, pain, redness, and discharge, snw 16:18 Neck: Negative for injury, pain, and swelling, Cardiovascular: Negative for chest pain, palpitations, and edema, pain with deep inspiration Respiratory: Negative for shortness of breath, cough, wheezing, and pleuritic chest pain, Abdomen/GI: Negative for abdominal pain, nausea, vomiting, diarrhea, and constipation, Back: Negative for injury and pain, : Negative for injury, bleeding, discharge, and swelling, MS/Extremity: Negative for injury and deformity, Skin: Negative for injury, rash, and discoloration, Neuro: Negative for headache, weakness, numbness, tingling, and seizure, Psych: Negative for depression, anxiety, suicide ideation, homicidal ideation, and hallucinations, 16:18 Constitutional: Positive for body aches, malaise, 16:18 ENT: Positive for sore throat, Exam: 16:18 Constitutional: This is a well developed, well nourished patient who is awake, alert, snw and in no acute distress. Head/Face: Normocephalic, atraumatic. Eyes: Pupils equal round and reactive to light, extra-ocular motions intact. Lids and lashes normal. Conjunctiva and sclera are non-icteric and not injected. Cornea within normal limits. Periorbital areas with no swelling, redness, or edema. ENT: Nares patent. No nasal discharge, no septal abnormalities noted. Tympanic membranes are normal and external auditory canals are clear. Oropharynx with mild redness, no swelling, or masses, exudates, or evidence of obstruction, uvula midline. Mucous membranes moist. Neck: Trachea midline, no thyromegaly or masses palpated, and no cervical lymphadenopathy. Supple, full range of motion without nuchal rigidity, or vertebral point tenderness. No Meningismus. Chest/axilla: Normal chest wall appearance and motion. Nontender with no deformity. No lesions are appreciated. Cardiovascular: Regular rate and rhythm with a normal S1 and S2. No gallops, murmurs, or rubs. Normal PMI, no JVD. No pulse deficits. Respiratory: Lungs have equal breath sounds bilaterally, clear to auscultation and percussion. No rales, rhonchi or wheezes noted. No increased work of breathing, no retractions or nasal flaring. Abdomen/GI: Soft, non-tender, with normal bowel sounds. No distension or tympany. No guarding or rebound. No evidence of tenderness throughout. Back: No spinal tenderness. No costovertebral tenderness. Full range of motion. Skin: Warm, dry with normal turgor. Normal color with no rashes, no lesions, and no evidence of cellulitis. MS/ Extremity: Pulses equal, no cyanosis. Neurovascular intact. Full, normal range of motion. Neuro: Awake and alert, GCS 15, oriented to person, place, time, and situation. Cranial nerves II-XII grossly intact. Motor strength 5/5 in all extremities. Sensory grossly intact. Cerebellar exam normal. Normal gait. Psych: Awake, alert, with orientation to person, place and time. Behavior, mood, and affect are within normal limits. Vital Signs: 13:47 BP 147 / 101; Pulse 58; Resp 18; Temp 97.3; Pulse Ox 100% ; ko1 16:31 BP 130 / 88; Pulse 60; Resp 18; Pulse Ox 100% on R/A; cm10 MDM: 14:03 Patient medically screened. snw 14:11 ED course: Pt to x-ray via w/c. snw 16:05 Differential diagnosis: viral Infection, bacterial infection, URI, bronchitis, snw pneumonia. Data reviewed: vital signs, nurses notes. Counseling: I had a detailed discussion with the patient and/or guardian regarding the historical points, exam findings, and any diagnostic results supporting the discharge/admit diagnosis, the presence of at least one elevated blood pressure reading (>120/80) during this emergency department visit, lab results, radiology results, the need for outpatient follow up, for definitive care. Response to treatment: There is no appreciated change of the patient's symptoms at this time. 16:20 Differential diagnosis: bronchitis, flu, URI. Data interpreted: Pulse oximetry: on room snw air is 100 %. Interpretation: normal. Care significantly affected by the following chronic conditions: Hypertension, crohn's, a. fib. 08/19 14:03 Order name: COVID-19/FLU A+B; Complete Time: 14:54 snw 08/19 14:11 Order name: Strep; Complete Time: 16:10 snw 08/19 16:11 Order name: Throat Culture EDTN 08/19 14:03 Order name: Chest Pa And Lat (2 Views) XRAY; Complete Time: 14:32 snw 08/19 14:11 Order name: EKG; Complete Time: 14:11 snw 08/19 14:11 Order name: EKG - Nurse/Tech; Complete Time: 14:53 snw Administered Medications: No medications were administered Disposition Summary: 08/19/23 16:22 Discharge Ordered Notes: Location: Home snw Condition: Stable snw Diagnosis - Viral infection, unspecified snw - Chest pain on breathing snw Followup: snw - With: Emergency Department - When: As needed - Reason: Worsening of condition Followup: snw - With: Private Physician - When: 2 - 3 days - Reason: Recheck today's complaints, Continuance of care, Re-evaluation by your physician Discharge Instructions: - Discharge Summary Sheet snw - Nonspecific Chest Pain, Adult snw - Viral Respiratory Infection snw - Rehydration, Adult snw Forms: - Work release form snw - Medication Reconciliation Form snw - Thank You Letter snw - Antibiotic Education snw - Prescription Opioid Use snw - Patient Portal Instructions snw - Leadership Thank You Letter snw Prescriptions: - promethazine 25 mg Oral Tablet - take 1 tablet ORAL route every 6 hours As needed; 20 tablet; Refills: 0, snw Product Selection Permitted Signatures: Dispatcher [employer] EDKim Cortez FNP-C PACKAGE LINE OPERATOR-Ailinw Klein Clement, RN RN ko1
[2023-08-19 16:42] VITALS: TEMP 97.3; O2SAT 100
[2023-08-19 16:43] VITALS: BP 130/88
== END 2023-08-19 16:36 | disposition home or self-care (01) ==
LOC: ER 13:41
DX: B34.9 Viral infection, unspecified (principal); Z11.52 Encounter for screening for COVID-19; I10 Essential (primary) hypertension; I48.91 Unspecified atrial fibrillation
CPT/HCPCS: 93005; 87070; 87081; 0240U; 71046; 99283

== ENCOUNTER → 2023-09-22 | Emergency (ER) | payer OTHER ==
[~2023-09-22] MED LIST: ACETAMINOPHEN 500 MG TAB ONE; FAMOTIDINE 20 MG/2 ML VIAL IV ONE
--- NOTE | 2023-09-22 01:45 | ER ---
Nurse's Notes [facility] Name: Dori Guardado Age: 48 yrs Sex: Female : 1975 Arrival Date: 09/22/2023 Time: 00:20 Bed 14 Private MD: Diagnosis: Pain in right foot Presentation: 09/22 00:32 Chief complaint: Patient states: Right foot pain onset yesterday. Pt denies any trauma cm10 or injury. Coronavirus screen: Vaccine status: Patient reports being unvaccinated. Client denies travel out of the [place] in the last 14 days. Ebola Screen: Patient denies travel to an Ebola-affected area in the 21 days before illness onset. No symptoms or risks identified at this time. Initial Sepsis Screen: Does the patient meet any 2 criteria? No. Patient's initial sepsis screen is negative. Does the patient have a suspected source of infection? No. Patient's initial sepsis screen is negative. Risk Assessment: Do you want to hurt yourself or someone else? Patient reports no desire to harm self or others. Onset of symptoms was September 22, 2023. 00:32 Method Of Arrival: Ambulatory cm10 00:32 Acuity: KASH 4 cm10 Historical: - Allergies: 00:33 No Known Allergies; cm10 - PMHx: 00:33 Atrial Fib; bowel obstruction; Crohn's; Hypertension; cm10 - PSHx: 00:33 Appendectomy; section; Cholecystectomy; partial hysterectomy; cm10 - Immunization history:: Adult Immunizations unknown. - Social history:: Smoking status: Patient denies any tobacco usage or history of. Screenin:30 [facility] ED Fall Risk Assessment (Adult) History of falling in the last 3 months, pf1 including since admission No falls in past 3 months (0 pts) Confusion or Disorientation No (0 pts) Intoxicated or Sedated No (0 pts) Impaired Gait No (0 pts) Mobility Assist Device Used No (0 pt) Altered Elimination No (0 pt) Score/Fall Risk Level 0 - 2 = Low Risk Oriented to surroundings, Maintained a safe environment, Educated pt \T\ family on fall prevention, incl call for assistance when getting out of bed, Assessed \T\ reinforced patient's understanding of fall precautions, Provided non-skid footwear, Hourly rounding (assess needs \T\ fall precautionary measures) done, Used ambulatory aids as needed (educated on \T\ assisted with), Used gait belt as appropriate. Abuse screen: Denies threats or abuse. Nutritional screening: No deficits noted. Tuberculosis screening: No symptoms or risk factors identified. Assessment: 00:30 General: Appears in no apparent distress. comfortable, obese, well groomed, well pf1 developed, Behavior is calm, cooperative, appropriate for age, quiet. 00:30 Pain: Complains of pain in right foot and right calf,onset 2 days Pain currently is 6 pf1 out of 10 on a pain scale. Neuro: No deficits noted. Level of Consciousness is awake, alert, obeys commands, Oriented to person, place, time, situation. Cardiovascular: No deficits noted. Capillary refill < 3 seconds Patient's skin is warm and dry. Respiratory: No deficits noted. Airway is patent Respiratory effort is even, unlabored, Respiratory pattern is regular, symmetrical. GI: No deficits noted. No signs and/or symptoms were reported involving the gastrointestinal system. : No deficits noted. No signs and/or symptoms were reported regarding the genitourinary system. EENT: No deficits noted. No signs and/or symptoms were reported regarding the EENT system. Derm: No deficits noted. No signs and/or symptoms reported regarding the dermatologic system. Musculoskeletal: Swelling present in right foot Reports pain in right foot and right calf with swelling to right foot. 01:30 Reassessment: Patient appears in no apparent distress at this time. Patient and/or pf1 family updated on plan of care and expected duration. Pain level reassessed. Patient is alert, oriented x 3, equal unlabored respirations, skin warm/dry/pink. Patient states feeling better. Patient states symptoms have improved. Vital Signs: 00:32 BP 158 / 94; Pulse 78; Resp 18; Temp 98.3; Pulse Ox 94% on R/A; Weight 126.55 kg; cm10 Height 5 ft. 3 in. ; Pain 6/10; 01:30 BP 113 / 70; Pulse 72; Resp 16; Pulse Ox 99% on R/A; pf1 00:32 Body Mass Index 49.42 (126.55 kg, 160.02 cm) cm10 00:32 Pain Scale: Adult cm10 ED Course: 00:25 Patient arrived in ED. gm2 00:28 Hardy Mahoney PA is PHCP. cp 00:28 Hardy Yee MD is Attending Physician. cp 00:30 Patient has correct armband on for positive identification. Bed in low position. Call pf1 light in reach. 00:33 Triage completed. cm10 00:33 Arm band placed on Patient placed in an exam room, on a stretcher. cm10 00:56 US Extremity Venous Unilateral Ltd In Process Unspecified. EDMS 00:57 XRAY Foot RIGHT 3 View In Process Unspecified. EDMS 02:00 walking boot applied to right foot. pf1 02:07 No provider procedures requiring assistance completed. Patient did not have IV access pf1 during this emergency room visit. 02:08 Provided Education on: follow up. pf1 Administered Medications: 00:45 Drug: Acetaminophen PO 1000 mg PO once Route: PO; pf1 00:45 Follow up: Response: No adverse reaction; Marked relief of symptoms; Pain is decreased pf1 Medication: 02:08 VIS not applicable for this client. pf1 Outcome: 01:44 Discharge ordered by MD. cp 02:08 Discharged to home ambulatory, pf1 02:08 Condition: improved 02:08 Discharge instructions given to patient, Instructed on discharge instructions, follow up and referral plans. Demonstrated understanding of instructions, follow-up care, 02:09 Patient left the ED. pf1 Signatures: Dispatcher [employer] EDND Hardy Mahoney PA PA cp Claudine Gupta, RN RN pf1 Janel Dejesus RN RN cm10 Ashley Vargas gm2
--- NOTE | 2023-09-22 01:45 | EDPHYS ---
Physician Documentation [facility] Name: Dori Guardado Age: 48 yrs Sex: Female : 1975 Arrival Date: 09/22/2023 Time: 00:20 Bed 14 Private MD: ED Physician Hardy Yee HPI: 09/22 00:40 This 48 yrs old Black Female presents to ER via Ambulatory with complaints of Foot Pain.cp 00:40 The patient presents with pain, that is acute. The complaints affect the lateral aspect cp of right foot and dorsum of right foot. Context: resulted from an unknown cause, the patient can fully bear weight. Onset: The symptoms/episode began/occurred 1 day(s) ago. 00:40 Associated signs and symptoms: Pertinent positives: calf tenderness, swelling, cp Pertinent negatives fever, numbness, warmth, injury. Treatment prior to arrival includes: no previous treatment. 00:40 Severity of symptoms: in the emergency department the symptoms are unchanged, despite cp home interventions. Historical: - Allergies: 00:33 No Known Allergies; cm10 - PMHx: 00:33 Atrial Fib; bowel obstruction; Crohn's; Hypertension; cm10 - PSHx: 00:33 Appendectomy; section; Cholecystectomy; partial hysterectomy; cm10 - Immunization history:: Adult Immunizations unknown. - Social history:: Smoking status: Patient denies any tobacco usage or history of. ROS: 00:46 Constitutional: Negative for fever, cp 00:46 MS/extremity: Positive for pain, swelling, tenderness, of the dorsum of right foot and lateral aspect of right foot, pain and cramping of right calf, Negative for injury or acute deformity, decreased range of motion, 00:46 Respiratory: Negative for cough, shortness of breath, wheezing, cp 00:46 Abdomen/GI: Negative for abdominal pain, vomiting, diarrhea, constipation, 00:46 Back: Negative for pain at rest, pain with movement, 00:46 Skin: Negative for rash, 00:46 Neuro: Negative for numbness, tingling, weakness, 00:46 All other systems are negative, Exam: 00:50 Constitutional: The patient appears in no acute distress, alert, awake, non-toxic, well cp developed, well nourished, obese, uncomfortable, 00:50 Head/Face: Normocephalic, atraumatic. cp 00:50 Chest/axilla: Inspection: normal, 00:50 Cardiovascular: Rate: normal, Pulses: Pulses are 2+ in right dorsalis pedis artery. Edema: ankle edema, that is very mild, JVD: is not appreciated, 00:50 Respiratory: the patient does not display signs of respiratory distress, Respirations: normal, no use of accessory muscles, 00:50 Back: pain, is absent, 00:50 Musculoskeletal/extremity: Extremities: noted in the right foot: pain, tenderness, swelling noted lateral and dorsal side of right mid foot, mild tenderness of right calf, the right foot Sensation intact. 00:50 Skin: cellulitis, is not appreciated, on the right foot, no rash present. cp 00:50 Neuro: Orientation: to person, place \T\ time. Mentation: is normal, Motor: moves all fours, Sensation: is normal, Vital Signs: 00:32 BP 158 / 94; Pulse 78; Resp 18; Temp 98.3; Pulse Ox 94% on R/A; Weight 126.55 kg; cm10 Height 5 ft. 3 in. ; Pain 6/10; 01:30 BP 113 / 70; Pulse 72; Resp 16; Pulse Ox 99% on R/A; pf1 00:32 Body Mass Index 49.42 (126.55 kg, 160.02 cm) cm10 00:32 Pain Scale: Adult cm10 MDM: 00:28 Patient medically screened. cp 01:00 Differential diagnosis: dislocation, closed fracture, sprain, cellulitis, dvt. cp 01:09 ED course: US tech reports negative right lower extremity US for DVT. cp 01:16 ED course: xrays of right foot negative for fracture. cp 01:44 Data reviewed: vital signs, nurses notes, radiologic studies, plain films, ultrasound. cp 01:44 I considered the following discharge prescriptions or medication management in the emergency department Medications were administered in the Emergency Department. See MAR. Care significantly affected by the following chronic conditions: Hypertension. Counseling: I had a detailed discussion with the patient and/or guardian regarding the historical points, exam findings, and any diagnostic results supporting the discharge/admit diagnosis, radiology results, the need for outpatient follow up, a family practitioner, to return to the emergency department if symptoms worsen or persist or if there are any questions or concerns that arise at home. Response to treatment: the patient's symptoms have mildly improved after treatment, and as a result, I will discharge patient. 09/22 00:36 Order name: XRAY Foot RIGHT 3 View cp 09/22 00:36 Order name: US Extremity Venous Unilateral Ltd cp 09/22 01:43 Order name: Walking boot; Complete Time: 01:59 cp Administered Medications: 00:45 Drug: Acetaminophen PO 1000 mg PO once Route: PO; pf1 00:45 Follow up: Response: No adverse reaction; Marked relief of symptoms; Pain is decreased pf1 Disposition Summary: 09/22/23 01:44 Discharge Ordered Notes: Location: Home cp Problem: new cp Symptoms: have improved cp Condition: Stable cp Diagnosis - Pain in right foot cp Followup: cp - With: Private Physician - When: 2 - 3 days - Reason: Worsening of condition Discharge Instructions: - Discharge Summary Sheet cp - Foot Pain cp Forms: - Medication Reconciliation Form cp - Thank You Letter cp - Antibiotic Education cp - Prescription Opioid Use cp - Patient Portal Instructions cp - Leadership Thank You Letter cp Signatures: Dispatcher [employer] EDHardy Shook PA PA cp Claudine Gupta RN RN pf1 Janel Dejesus RN RN cm10 Corrections: (The following items were deleted from the chart) 09/23 01:04 09/22 00:40 Treatment prior to arrival includes: over the counter medications, Tylenol, cp cp
[2023-09-22 07:55] VITALS: BP 113/70; TEMP 98.3; O2SAT 99
--- NOTE | 2023-09-22 20:36 | RAD REPORT ---
EXAM DESCRIPTION: XR Right Foot Complete, 3 Views CLINICAL HISTORY: PAIN TECHNIQUE: Frontal, lateral and oblique views of the right foot. COMPARISON: No relevant prior studies available. FINDINGS: Bones/joints: Unremarkable. No acute fracture. No dislocation. Soft tissues: Unremarkable. No radiopaque foreign body. IMPRESSION: No acute injury. Electronically signed by: Francisco Jasso MD 09/22/2023 01:56 AM ELECTRONIC GLUER Due to temporary technical issues with the PACS/Fluency reporting system, reports are being signed by the in house radiologists without review as a courtesy to insure prompt reporting. The interpreting radiologist is fully responsible for the content of the report.
--- NOTE | 2023-09-22 20:41 | RAD REPORT ---
EXAM DESCRIPTION: US Duplex Right Lower Extremity Veins CLINICAL HISTORY: The patient is 48 years old and is Female; PAIN TECHNIQUE: Real-time duplex ultrasound scan of the right lower extremity veins integrating B-mode tw o-dimensional vascular structure, Doppler spectral analysis, color flow Doppler imaging and compressi on. COMPARISON: No relevant prior studies available. FINDINGS: DEEP VEINS: Unremarkable. No DVT in the visualized common femoral, femoral, proximal d eep femoral or popliteal veins. The veins demonstrate normal color flow, are normally compressible, with normal phasic flow and/or augmentation response. SUPERFICIAL VEINS: Unremarkable. No thrombus in the visualized great saphenous vein. SOFT TISSUES: No acute findings. No popliteal cyst. IMPRESSION: Normal right lower extremity duplex venous ultrasound. Electronically signed by: Zhanna Acevedo MD 09/22/2023 02:00 AM GENERAL MANAGER LAND DEPARTMENT Due to temporary technical issues with the PACS/Fluency reporting system, reports are being signed by the in house radiologists without review as a courtesy to insure prompt reporting. The interpreting radiologist is fully responsible for the content of the report.
== END ==
LOC: ER 00:20
DX: M79.671 Pain in right foot (principal)
CPT/HCPCS: 93971; 99283

== ENCOUNTER → 2023-09-23 | Emergency (ER) | payer OTHER ==
[~2023-09-23] MED LIST changes: -ACETAMINOPHEN 500 MG TAB ONE; -FAMOTIDINE 20 MG/2 ML VIAL IV ONE; +GLUCAGON 1 MG/VIAL ONE; +KETOROLAC 30 MG/ML INJ ONE; +MAGNES/ALUMIN/SIMET 30ML UCUP ONE; +ONDANSETRON 4 MG (ODT) TAB ONE
--- NOTE | 2023-09-23 21:07 | RAD REPORT ---
EXAM DESCRIPTION: CT - Abdomen Pelvis Wo Contrast - 09/23/2023 8:56 pm CLINICAL HISTORY: Abdominal pain COMPARISON: April 2023 TECHNIQUE: Computed axial tomography of the abdomen and pelvis was obtained. IV and oral contrast we re not requested. All CT scans are performed using dose optimization technique as appropriate and may include automated exposure control or mA/KV adjustment according to patient size. FINDINGS: The evaluation of solid organs, vessels and bowel is limited secondary to the lack of con trast administration. Cholecystectomy. The liver, spleen, pancreas, adrenals and kidneys appear grossly normal. There is no evidence of diverticulitis. No adnexal mass. Right shekhar colectomy. Contrast is present within the proximal right colon. IMPRESSION: No acute abnormality is displayed.
[2023-09-23 21:42] LABS: Absolute Lymphocytes (CBC) 3.5 K/uL (0.7-4.9); Hematocrit 36.2 % (36.0-45.0); Lymphocytes % 27.9 % (15.3-44.8); MCV 79.3 fL (80-100); Platelets 358 thou/uL (152-406); RBC Red Blood Cell Count 4.56 M/uL (3.86-4.86)
[2023-09-23 21:51] LABS: Potassium 3.4 mEq/L (3.5-5.1)
--- NOTE | 2023-09-23 21:55 | EDPHYS ---
Physician Documentation [facility] Name: Dori Guardado Age: 48 yrs Sex: Female : 1975 Arrival Date: 09/23/2023 Time: 17:21 Bed 17 Private MD: ED Physician Branden Negron HPI: 09/23 22:16 This 48 yrs old Black Female presents to ER via EMS with complaints of Foreign Body In kb Throat. 22:18 Pt reports she was eating chicken and rice when it got stuck in lower esophagus 30-40 kb min fine patcher. States this has happened multiple times in the past and she sees Dr Nunez. Denies shortness of breath. 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 - Social history:: Smoking status: Patient denies any tobacco usage or history of. ROS: 22:16 Constitutional: Negative for fever, chills, and weight loss, kb 22:16 ENT: Positive for foreign body sensation, 22:16 All other systems are negative, Exam: 22:16 Constitutional: This is a well developed, well nourished patient who is awake, alert, kb and in no acute distress. Head/Face: Normocephalic, atraumatic. ENT: Moist Mucous membranes Cardiovascular: Regular rate Respiratory: Respirations even and unlabored. No increased work of breathing. Talking in full sentences Abdomen/GI: Soft, non-tender. No distention Skin: Warm, dry with normal turgor. Normal color. MS/ Extremity: Pulses equal, no cyanosis. Neurovascular intact. Full, normal range of motion. Neuro: Awake and alert, GCS 15, oriented to person, place, time, and situation. Moves all extremities. Normal gait. Vital Signs: 17:44 BP 139 / 101; Pulse 84; Resp 18; Temp 98.1; Pulse Ox 100% ; cp4 19:34 BP 137 / 100; Pulse 85; Resp 18; Pulse Ox 100% ; cp4 21:43 BP 132 / 68; Pulse 66; Resp 19; Pulse Ox 98% on R/A; nw1 22:15 BP 131 / 79; Pulse 73; Resp 18; Pulse Ox 100% on R/A; nw1 [place] Coma Score: 21:43 Eye Response: spontaneous(4). Motor Response: obeys commands(6). Verbal Response: nw1 oriented(5). Total: 15. MDM: 17:30 Patient medically screened. kb 22:16 Differential Diagnosis Food Bolus, GERD, nonspecific abd pain, ulcers. Data reviewed: kb vital signs, nurses notes. Historians other than the Patient: EMS: [facility]. 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 ED course: After soda, pt reported the FB went down, but then she developed nausea and upper abd pain. Labs and CT completed. Pt feeling better after treatment and tolerating po intake. Pt educated to follow up with Dr Nunez for continued care. . 09/23 17:35 Order name: CBC with Diff; Complete Time: 21:50 kb 09/23 17:35 Order name: Basic Metabolic Panel; Complete Time: 21:54 kb 09/23 20:36 Order name: CT Abd/Pelvis - Without Contrast; Complete Time: 21:08 kb 09/23 17:35 Order name: IV Start; Complete Time: 21:33 kb 09/23 17:36 Order name: PO challenge: soda through a straw after glucagon; Complete Time: 19:12 kb 09/23 20:36 Order name: PO challenge; Complete Time: 20:43 kb Administered Medications: 18:39 Drug: Glucagon IVP 1 mg IVP once Route: IVP; Site: right upper arm; cp4 19:12 Follow up: Response: No adverse reaction cp4 19:22 Drug: GlucaGen IM 1 mg IM once Route: IM; Site: left deltoid; cp4 19:23 Follow up: Response: No adverse reaction cp4 19:22 Drug: Ketorolac IM 30 mg IM once Route: IM; Site: right deltoid; cp4 19:23 Follow up: Response: No adverse reaction cp4 20:43 Drug: Ondansetron PO 4 mg PO once Route: PO; cp4 20:43 Drug: Alum-Mag Hydroxide-Simeth PO Suspension (200 mg-200 mg-20 mg/5 mL) 30 ml PO once cp4 Route: PO; 21:42 Drug: Famotidine IVP 20 mg IVP once; dilute with 10 mL 0.9% NaCl; give over 2 minutes nw1 Route: IVP; Site: right wrist; Disposition: 09/24 07:00 Co-signature as Attending Physician, Branden Negron MD I reviewed the patient's care rn provided by the Advanced Practice Provider and agree with the diagnosis and treatment plan. Disposition Summary: 09/23/23 21:54 Discharge Ordered Notes: Location: Home kb Condition: Stable kb Diagnosis - Foreign body in esophagus - resolved kb - Upper abdominal pain, unspecified kb Followup: kb - With: Emergency Department - When: As needed - Reason: Worsening of condition Followup: kb - With: Private Physician - When: 2 - 3 days - Reason: Recheck today's complaints, Continuance of care, Re-evaluation by your physician Discharge Instructions: - Discharge Summary Sheet kb - Gastroesophageal Reflux Disease, Adult kb - Abdominal Pain, Adult, [id number] kb - Swallowed Foreign Body, Adult, [id number] kb Forms: - Medication Reconciliation Form kb - Thank You Letter kb - Antibiotic Education kb - Prescription Opioid Use kb - Patient Portal Instructions kb - Leadership Thank You Letter kb Signatures: Dispatcher [employer] Mishel Mancilla, DIVISION SERVICE MANAGER-C DIVISION SERVICE MANAGER-Ckb Branden Negron MD MD rn Potter, Christina [facility] Stacey Tran RN RN nw1
--- NOTE | 2023-09-23 21:55 | ER ---
Nurse's Notes [facility] Name: Dori Guardado Age: 48 yrs Sex: Female : 1975 Arrival Date: 09/23/2023 Time: 17:21 Bed 17 Private MD: Diagnosis: Foreign body in esophagus-resolved;Upper abdominal pain, unspecified Presentation: 09/23 17:44 Chief complaint: EMS states: patient was eating chicken and rice when the food got cp4 stuck in her throat. Patient states hx of strictures. Coronavirus screen: Vaccine status: Patient reports being unvaccinated. Client denies travel out of the [place] in the last 14 days. At this time, the client does not indicate any symptoms associated with coronavirus-19. Ebola Screen: Patient negative for fever greater than or equal to 101.5 degrees Fahrenheit, and additional compatible Ebola Virus Disease symptoms Patient denies exposure to infectious person. Patient denies travel to an Ebola-affected area in the 21 days before illness onset. No symptoms or risks identified at this time. Initial Sepsis Screen: Does the patient meet any 2 criteria? No. Patient's initial sepsis screen is negative. Does the patient have a suspected source of infection? No. Patient's initial sepsis screen is negative. Risk Assessment: Do you want to hurt yourself or someone else? Patient reports no desire to harm self or others. Onset of symptoms was September 23, 2023. 17:44 Method Of Arrival: EMS: [facility] cp4 17:44 Acuity: KASH 3 cp4 Triage Assessment: 17:46 General: Appears in no apparent distress. Behavior is calm, cooperative, appropriate cp4 for age. Pain: Denies pain. 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 - Social history:: Smoking status: Patient denies any tobacco usage or history of. Screenin:47 [facility] ED Fall Risk Assessment (Adult) History of falling in the last 3 months, cp4 including since admission No falls in past 3 months (0 pts) Confusion or Disorientation No (0 pts) Intoxicated or Sedated No (0 pts) Impaired Gait No (0 pts) Mobility Assist Device Used No (0 pt) Altered Elimination No (0 pt) Score/Fall Risk Level 0 - 2 = Low Risk Oriented to surroundings, Maintained a safe environment, Educated pt \T\ family on fall prevention, incl call for assistance when getting out of bed, Assessed \T\ reinforced patient's understanding of fall precautions, Hourly rounding (assess needs \T\ fall precautionary measures) done. Abuse screen: Denies threats or abuse. Nutritional screening: No deficits noted. Tuberculosis screening: No symptoms or risk factors identified. Assessment: 17:47 Reassessment: No changes from previously documented assessment. cp4 Vital Signs: 17:44 BP 139 / 101; Pulse 84; Resp 18; Temp 98.1; Pulse Ox 100% ; cp4 19:34 BP 137 / 100; Pulse 85; Resp 18; Pulse Ox 100% ; cp4 21:43 BP 132 / 68; Pulse 66; Resp 19; Pulse Ox 98% on R/A; nw1 22:15 BP 131 / 79; Pulse 73; Resp 18; Pulse Ox 100% on R/A; nw1 [place] Coma Score: 21:43 Eye Response: spontaneous(4). Motor Response: obeys commands(6). Verbal Response: nw1 oriented(5). Total: 15. ED Course: 17:30 Patient arrived in ED. cp4 17:30 Mishel Cota FNP-C is [facility]. kb 17:30 Branden Negron MD is Attending Physician. kb 17:38 Soraya Oliver is Primary Nurse. cp4 17:45 Triage completed. cp4 17:46 Arm band placed on left wrist. Patient placed in the treatment room, on a stretcher. cp4 17:47 Bed in low position. Call light in reach. Side rails up X 1. cp4 17:47 No provider procedures requiring assistance completed. cp4 20:58 CT Abd/Pelvis - Without Contrast In Process Unspecified. EDMS 21:33 Basic Metabolic Panel Sent. nw1 21:33 CBC with Diff Sent. nw1 21:43 Provided Education on: POC. nw1 21:43 Inserted saline lock: 20 gauge in right wrist, using aseptic technique. Blood collected.nw1 21:44 Basic Metabolic Panel Sent. nw1 21:44 CBC with Diff Sent. nw1 22:15 IV discontinued, intact, bleeding controlled, No redness/swelling at site. Pressure nw1 dressing applied. Administered Medications: 18:39 Drug: Glucagon IVP 1 mg IVP once Route: IVP; Site: right upper arm; cp4 19:12 Follow up: Response: No adverse reaction cp4 19:22 Drug: GlucaGen IM 1 mg IM once Route: IM; Site: left deltoid; cp4 19:23 Follow up: Response: No adverse reaction cp4 19:22 Drug: Ketorolac IM 30 mg IM once Route: IM; Site: right deltoid; cp4 19:23 Follow up: Response: No adverse reaction cp4 20:43 Drug: Ondansetron PO 4 mg PO once Route: PO; cp4 20:43 Drug: Alum-Mag Hydroxide-Simeth PO Suspension (200 mg-200 mg-20 mg/5 mL) 30 ml PO once cp4 Route: PO; 21:42 Drug: Famotidine IVP 20 mg IVP once; dilute with 10 mL 0.9% NaCl; give over 2 minutes nw1 Route: IVP; Site: right wrist; Medication: 17:47 VIS not applicable for this client. cp4 Outcome: 21:54 Discharge ordered by . danny 22:15 Discharged to home with family, nw1 22:15 Condition: stable 22:15 Discharge instructions given to patient, Instructed on discharge instructions, follow up and referral plans. Demonstrated understanding of instructions, follow-up care, 22:16 Patient left the ED. nw1 Signatures: Dispatcher [employer] EDFL Mishel Cota FNP-C FNP-Ckb Potter, Christina cp4 Stacey Tran, RN RN nw1
[2023-09-23 23:12] VITALS: TEMP 98.1; O2SAT 100
[2023-09-23 23:20] VITALS: BP 131/79
== END ==
LOC: ER 17:21
DX: R10.10 Upper abdominal pain, unspecified (principal)
CPT/HCPCS: 85025; 80048; 36415; 74176; 96372; 99284; J1610 ×2; Q0162

== ENCOUNTER → 2023-10-17 | Emergency (ER) | payer OTHER, SELFPAY ==
[~2023-10-17] MED LIST changes: +ASPIRIN 81 MG CHEWABLE TABLET ONE; -GLUCAGON 1 MG/VIAL ONE; -KETOROLAC 30 MG/ML INJ ONE; -MAGNES/ALUMIN/SIMET 30ML UCUP ONE; -ONDANSETRON 4 MG (ODT) TAB ONE; +POTASSIUM CL SA 10 MEQ TAB PO ONE
--- NOTE | 2023-10-17 20:16 | RAD REPORT ---
EXAM DESCRIPTION: RAD - Chest Single View - 10/17/2023 8:11 pm CLINICAL HISTORY: CHEST PAIN Chest pain. COMPARISON: Chest Pa And Lat (2 Views) dated 08/19/2023; Chest Single View dated 08/12/2023; Chest S chuck View dated 06/14/2023; Chest Single View dated 05/17/2023 FINDINGS: Portable technique limits examination quality. The lungs are grossly clear. The heart is normal in size. No displaced fractures. IMPRESSION: No acute intrathoracic process suspected.
[2023-10-17 20:51] LABS: Absolute Lymphocytes (CBC) 2.9 K/uL (0.7-4.9); Hematocrit 34.6 % (36.0-45.0); Lymphocytes % 37.9 % (15.3-44.8); MCV 78.9 fL (80-100); Platelets 352 thou/uL (152-406); RBC Red Blood Cell Count 4.38 M/uL (3.86-4.86)
[2023-10-17 21:15] LABS: Magnesium 1.9 mg/dL (1.6-2.4); Potassium 3.3 mEq/L (3.5-5.1); Troponin High Sensitivity 5.9 pg/mL (<58.9)
--- NOTE | 2023-10-17 23:10 | EDPHYS ---
Physician Documentation [facility] Name: Dori Guardado Age: 48 yrs Sex: Female : 1975 Arrival Date: 10/17/2023 Time: 19:12 Bed 2 Private MD: ED Physician Edilson Terry HPI: 10/17 20:15 This 48 yrs old Black Female presents to ER via Ambulatory with complaints of chest kb pain. 20:15 Patient is a 48-year-old female who presents for chest pain on the left side that kb radiates down the left arm that started last night. States is not getting any better so she decided to come in to get it evaluated. States pain is worse with movement of left arm with palpation of left arm and chest.. 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 - Social history:: Smoking status: Patient denies any tobacco usage or history of. Patient/guardian denies using alcohol, street drugs. ROS: 20:15 Constitutional: Negative for fever, chills, and weight loss, kb 20:15 Cardiovascular: Positive for chest pain, 20:15 All other systems are negative, Exam: 20:14 Constitutional: This is a well developed, well nourished patient who is awake, alert, kb and in no acute distress. Head/Face: Normocephalic, atraumatic. ENT: Moist Mucous membranes Cardiovascular: Regular rate Respiratory: Respirations even and unlabored. No increased work of breathing. Talking in full sentences Abdomen/GI: Soft, non-tender. No distention Skin: Warm, dry with normal turgor. Normal color. MS/ Extremity: Pulses equal, no cyanosis. Neurovascular intact. Full, normal range of motion. Neuro: Awake and alert, GCS 15, oriented to person, place, time, and situation. Moves all extremities. Normal gait. 20:14 ECG was reviewed by the Attending Physician. Vital Signs: 19:28 BP 141 / 98; Pulse 75; Resp 17; Temp 98.7; Pulse Ox 100% ; Weight 126.55 kg; Height 5 j7 ft. 3 in. ; Pain 6/10; 20:45 BP 136 / 95; Pulse 71; Resp 15; Pulse Ox 100% ; vc1 21:46 BP 133 / 93; Pulse 72; Resp 15; Pulse Ox 100% ; vc1 22:48 BP 126 / 88; Pulse 70; Resp 16; Pulse Ox 99% on R/A; km8 23:30 BP 121 / 82; Pulse 70; Resp 16; Pulse Ox 99% on R/A; km8 19:28 Body Mass Index 49.42 (126.55 kg, 160.02 cm) [facility] 19:28 Pain Scale: Adult [facility] [place] Coma Score: 19:40 Eye Response: spontaneous(4). Motor Response: obeys commands(6). Verbal Response: km8 oriented(5). Total: 15. MDM: 19:22 Patient medically screened. kb 20:15 Differential diagnosis: abnormal EKG, acute myocardial infarction, coronary artery kb disease chest wall pain. The patient was given aspirin in the Emergency Department. Data reviewed: vital signs, nurses notes. 23:09 Consideration of Admission/Observation Escalation of care including kb admission/observation considered. admission considered but HEART score 1, serial troponin normal with second decreased from first, pain worse with movement and palpation. . Counseling: I had a detailed discussion with the patient and/or guardian regarding the historical points, exam findings, and any diagnostic results supporting the discharge/admit diagnosis, lab results, radiology results, the need for outpatient follow up, a family practitioner, to return to the emergency department if symptoms worsen or persist or if there are any questions or concerns that arise at home. 10/17 19:33 Order name: Basic Metabolic Panel; Complete Time: 21:16 kb 10/17 19:33 Order name: CBC with Diff; Complete Time: :16 kb 10/17 19:33 Order name: Magnesium; Complete Time: 21:16 kb 10/17 19:33 Order name: NT PRO-BNP; Complete Time: 21:16 kb 10/17 19:33 Order name: Troponin HS; Complete Time: 21:16 kb 10/17 22:21 Order name: Troponin High Sensitivity; Complete Time: 23:09 kb 10/17 19:33 Order name: XRAY Chest (1 view); Complete Time: 20:18 kb 10/17 19:33 Order name: EKG; Complete Time: 19:34 kb 10/17 19:33 Order name: Cardiac monitoring; Complete Time: 20:22 kb 10/17 19:33 Order name: EKG - Nurse/Tech; Complete Time: 19:54 kb 10/17 19:33 Order name: IV Saline Lock; Complete Time: 20:45 kb 10/17 19:33 Order name: Labs collected and sent; Complete Time: 20:45 kb 10/17 19:33 Order name: O2 Per Protocol; Complete Time: 20:22 kb 10/17 19:33 Order name: O2 Sat Monitoring; Complete Time: 20:22 kb EC:14 Rate is 78 beats/min. Rhythm is regular. QRS [place] is Normal. MS interval is normal at kb 136 msec. QRS interval is normal at 80 msec. QT interval is normal at 421 msec. Administered Medications: 19:54 Drug: Aspirin PO Chewable Tablet 324 mg PO once; 81 mg tablets x 4 Route: PO; km8 21:53 Follow up: Response: No adverse reaction 8 21:55 Drug: Potassium Chloride PO 20 mEq PO once Route: PO; km8 23:40 Follow up: Response: No adverse reaction km8 Disposition Summary: 10/17/23 23:10 Discharge Ordered Notes: Location: Home kb Condition: Stable kb Diagnosis - Chest pain, unspecified kb Followup: kb - With: Emergency Department - When: As needed - Reason: Worsening of condition Followup: kb - With: Private Physician - When: 2 - 3 days - Reason: Recheck today's complaints, Continuance of care, Re-evaluation by your physician Discharge Instructions: - Discharge Summary Sheet kb - Chest Wall Pain, [id number] kb - Nonspecific Chest Pain, Adult, [id number] kb Forms: - Medication Reconciliation Form kb - Thank You Letter kb - Antibiotic Education kb - Prescription Opioid Use kb - Patient Portal Instructions kb - Leadership Thank You Letter kb Signatures: Dispatcher [employer] Mishel Mancilla, NICKIE-C NICKIE-Citlali Trent RN RN jj7 Gabi Muhammad RN RN km8 Corrections: (The following items were deleted from the chart) 21:55 20:15 Patient is a 48-year-old female who presents for chest pain on the left side that kb radiates down the left arm that started last night. States is not getting any better so she decided to come in to get it evaluated.. kb
--- NOTE | 2023-10-17 23:10 | ER ---
Nurse's Notes [facility] Name: Dori Guardado Age: 48 yrs Sex: Female : 1975 Arrival Date: 10/17/2023 Time: 19:12 Bed 2 Private MD: Diagnosis: Chest pain, unspecified Presentation: 10/17 19:28 Chief complaint: Patient states: PAIN IN THE UPPER LEFT PART OF CHEST. HURTS WHEN SHE jj7 LIFTS HER ARMS. STARTED LAST NIGHT. FEELS LIKE A TIGHTNESS. Coronavirus screen: At this time, the client does not indicate any symptoms associated with coronavirus-19. Ebola Screen: No symptoms or risks identified at this time. Initial Sepsis Screen: Does the patient meet any 2 criteria? No. Patient's initial sepsis screen is negative. Does the patient have a suspected source of infection? No. Patient's initial sepsis screen is negative. Risk Assessment: Do you want to hurt yourself or someone else? Patient reports no desire to harm self or others. Onset of symptoms was October 16, 2023. 19:28 Method Of Arrival: Ambulatory [facility] 19:28 Acuity: KASH 3 jj7 Triage Assessment: 19:30 General: Appears in no apparent distress. uncomfortable, Behavior is calm, cooperative, jj7 appropriate for age. Pain: Complains of pain in anterior aspect of left upper chest. Cardiovascular: Reports chest pain, Chest pain radiates to left arm(s). 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 - Social history:: Smoking status: Patient denies any tobacco usage or history of. Patient/guardian denies using alcohol, street drugs. Screenin:32 [facility] ED Fall Risk Assessment (Adult) History of falling in the last 3 months, jj7 including since admission No falls in past 3 months (0 pts) Confusion or Disorientation No (0 pts) Intoxicated or Sedated No (0 pts) Impaired Gait No (0 pts) Mobility Assist Device Used No (0 pt) Altered Elimination No (0 pt) Score/Fall Risk Level 0 - 2 = Low Risk Oriented to surroundings, Maintained a safe environment, Educated pt \\T\\ family on fall prevention, incl call for assistance when getting out of bed. 19:32 Abuse screen: Denies threats or abuse. Nutritional screening: No deficits noted. jj7 Tuberculosis screening: No symptoms or risk factors identified. Assessment: 19:40 General: Appears in no apparent distress. Behavior is calm, cooperative, appropriate km8 for age. Pain: Complains of pain in anterior aspect of left upper chest Pain radiates to left arm Pain currently is 6 out of 10 on a pain scale. Quality of pain is described as "nagging" Pain began 1 day ago. Neuro: Level of Consciousness is awake, alert, obeys commands, Oriented to person, place, time, situation. Cardiovascular: Reports chest pain, Capillary refill < 3 seconds Patient's skin is warm and dry. Chest pain is described as mild, quality is "nagging" is located in left anterior chest wall radiates to left arm(s) began 1 day ago episodes are intermittent. Respiratory: Airway is patent Respiratory effort is even, unlabored, Respiratory pattern is regular, symmetrical. GI: No signs and/or symptoms were reported involving the gastrointestinal system. : No signs and/or symptoms were reported regarding the genitourinary system. EENT: No signs and/or symptoms were reported regarding the EENT system. Derm: No signs and/or symptoms reported regarding the dermatologic system. Skin is intact, is healthy with good turgor, Skin is dry, Skin is pink, warm \\T\\ dry. normal, Skin temperature is warm. Musculoskeletal: No signs and/or symptoms reported regarding the musculoskeletal system. Circulation, motion, and sensation intact. Range of motion: intact in all extremities. 20:45 Reassessment: No changes from previously documented assessment. Patient and/or family vc1 updated on plan of care and expected duration. Pain level reassessed. Patient is alert, oriented x 3, equal unlabored respirations, skin warm/dry/pink. 21:46 Reassessment: No changes from previously documented assessment. Patient and/or family vc1 updated on plan of care and expected duration. Pain level reassessed. Patient is alert, oriented x 3, equal unlabored respirations, skin warm/dry/pink. 22:48 Reassessment: Patient appears in no apparent distress at this time. No changes from km8 previously documented assessment. Patient and/or family updated on plan of care and expected duration. Pain level reassessed. Patient is alert, oriented x 3, equal unlabored respirations, skin warm/dry/pink. 23:40 Reassessment: Patient appears in no apparent distress at this time. Patient and/or km8 family updated on plan of care and expected duration. Pain level reassessed. Patient is alert, oriented x 3, equal unlabored respirations, skin warm/dry/pink. Patient states symptoms have improved. Vital Signs: 19:28 BP 141 / 98; Pulse 75; Resp 17; Temp 98.7; Pulse Ox 100% ; Weight 126.55 kg; Height 5 jj7 ft. 3 in. ; Pain 6/10; 20:45 BP 136 / 95; Pulse 71; Resp 15; Pulse Ox 100% ; vc1 21:46 BP 133 / 93; Pulse 72; Resp 15; Pulse Ox 100% ; vc1 22:48 BP 126 / 88; Pulse 70; Resp 16; Pulse Ox 99% on R/A; km8 23:30 BP 121 / 82; Pulse 70; Resp 16; Pulse Ox 99% on R/A; km8 19:28 Body Mass Index 49.42 (126.55 kg, 160.02 cm) jj7 19:28 Pain Scale: Adult jj7 Velva Coma Score: 19:40 Eye Response: spontaneous(4). Motor Response: obeys commands(6). Verbal Response: km8 oriented(5). Total: 15. ED Course: 19:21 Patient arrived in ED. ec2 19:22 [facility]C [facility] kb 19:22 Edilson Terry MD is Attending Physician. kb 19:30 Triage completed. jj7 19:30 Arm band placed on left wrist. jj7 19:40 Patient has correct armband on for positive identification. Placed in gown. Bed in low km8 position. Call light in reach. Side rails up X 1. Client placed on continuous cardiac and pulse oximetry monitoring. NIBP monitoring applied. 19:40 No provider procedures requiring assistance completed. Patient maintains SpO2 km8 saturation greater than 95% on room air. 20:12 XRAY Chest (1 view) In Process Unspecified. EDMS 20:30 Missed attempt(s): Bleeding controlled, band aid applied, catheter tip intact. vc1 20:30 Inserted saline lock: 22 gauge in left ,using aseptic technique. breast Blood collected.vc1 20:45 Cathy Thompson, RN is Primary Nurse. vc1 20:45 Basic Metabolic Panel Sent. vc1 20:45 CBC with Diff Sent. vc1 20:45 Magnesium Sent. vc1 20:45 NT PRO-BNP Sent. vc1 20:45 Troponin HS Sent. vc1 23:40 Provided Education on: d/c teaching. km8 23:40 IV discontinued, intact, bleeding controlled, No redness/swelling at site. Pressure km8 dressing applied. Administered Medications: 19:54 Drug: Aspirin PO Chewable Tablet 324 mg PO once; 81 mg tablets x 4 Route: PO; km8 21:53 Follow up: Response: No adverse reaction km8 21:55 Drug: Potassium Chloride PO 20 mEq PO once Route: PO; km8 23:40 Follow up: Response: No adverse reaction km8 Medication: 19:40 VIS not applicable for this client. km8 Outcome: 23:10 Discharge ordered by . kb 23:40 Discharged to home ambulatory, km8 23:40 Condition: good 23:40 Discharge instructions given to patient, Instructed on discharge instructions, follow up and referral plans. Demonstrated understanding of instructions, follow-up care, 23:41 Patient left the ED. km8 Signatures: Dispatcher [employer] EDNM Mishel Cota, KETTLE COORDINATOR-C KETTLE COORDINATOR-Ckb Cathy Thompson, RN RN vc1 Citlali Duarte RN RN jj7 Edilson eTrry MD MD ec2 Gabi Muhammad RN RN km8
[2023-10-18 01:01] VITALS: BP 121/82; TEMP 98.7; O2SAT 99
--- NOTE | 2023-10-18 17:24 | EKG ---
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
== END ==
LOC: ER 19:12
DX: R07.89 Other chest pain (principal)
CPT/HCPCS: 36415; 71045; 80048; 83735; 83880; 84484; 85025; 93005; 99284

== ENCOUNTER → 2023-12-19 | Emergency (ER) | payer OTHER ==
--- NOTE | 2023-12-19 22:14 | RAD REPORT ---
EXAM DESCRIPTION: CT - [id number] - 12/19/2023 10:07 pm CLINICAL HISTORY: Trauma, head and neck injury. tingling left arm COMPARISON: Soft Tissue Neck W/Contr dated 11/18/2022; Soft Tissue Neck W/Contr dated 12/09/2021; C Sp ine Wo Con dated 02/15/2021 TECHNIQUE: Axial 5 mm thick images of the head were obtained. Axial 2 mm thick images of the cervical spine were obtained with sagittal and coronal reconstruction images generated and reviewed. All CT scans are performed using dose optimization technique as appropriate and may include automated exposure control or mA/KV adjustment according to patient size. FINDINGS: CT HEAD WITHOUT CONTRAST: No acute hemorrhage, hydrocephalus or extra-axial collection is identified.No areas of brain edema or midline shift. The paranasal sinuses and mastoids are clear.The calvarium is intact. CT CERVICAL SPINE WITHOUT CONTRAST: No fracture or subluxation.Mild midcervical degenerative changes, most notable left C4-5.No preverteb ral soft tissues swelling is identified. IMPRESSION: No acute intracranial or cervical spine findings.
--- NOTE | 2023-12-19 23:18 | ER ---
Nurse's Notes [facility] Name: Dori Guardado Age: 48 yrs Sex: Female : 1975 Arrival Date: 12/19/2023 Time: 20:53 Bed 8 Private MD: Tramaine Lynch Diagnosis: Paresthesia of skin;Left arm paresthesia , degenerative disc disease C-spine Presentation: 12/18 21:21 Chief complaint: Patient states: SLIGHT NUMBNESS AND TINGLING IN RIGHT FOREARM. bm8 Coronavirus screen: Vaccine status: Patient reports being unvaccinated. Client denies travel out of the [place] in the last 14 days. At this time, the client does not indicate any symptoms associated with coronavirus-19. Ebola Screen: Patient negative for fever greater than or equal to 101.5 degrees Fahrenheit, and additional compatible Ebola Virus Disease symptoms Patient denies exposure to infectious person. Patient denies travel to an Ebola-affected area in the 21 days before illness onset. Initial Sepsis Screen: Does the patient meet any 2 criteria? No. Patient's initial sepsis screen is negative. Does the patient have a suspected source of infection? No. Patient's initial sepsis screen is negative. Risk Assessment: Do you want to hurt yourself or someone else? Patient reports no desire to harm self or others. Onset of symptoms was December 19, 2023 at 18:00. 21:21 Method Of Arrival: Ambulatory 8 21:21 Acuity: KASH 3 bm8 Triage Assessment: 21:22 General: Appears in no apparent distress. comfortable, Behavior is calm, cooperative. bm8 Pain: Denies pain. EENT: No deficits noted. No signs and/or symptoms were reported regarding the EENT system. Neuro: Level of Consciousness is awake, alert, obeys commands, Oriented to person, place, time, situation, Rental Agent are equal bilaterally Moves all extremities. Full function Gait is steady, Speech is normal, Facial symmetry appears normal, Pupils are PERRLA, Intact Reports numbness in left arm paresthesias. Cardiovascular: Denies chest pain, lightheadedness, palpitations, shortness of breath, Heart tones S1 S2 Capillary refill < 3 seconds Patient's skin is warm and dry. Respiratory: No deficits noted. Breath sounds are clear bilaterally. GI: No deficits noted. No signs and/or symptoms were reported involving the gastrointestinal system. : No deficits noted. No signs and/or symptoms were reported regarding the genitourinary system. Derm: No deficits noted. No signs and/or symptoms reported regarding the dermatologic system. 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 - Social history:: Smoking status: Patient denies any tobacco usage or history of. Patient/guardian denies using alcohol, street drugs, IV drugs. - Family history:: not pertinent. Screenin:29 [facility] ED Fall Risk Assessment (Adult) History of falling in the last 3 months, bm8 including since admission No falls in past 3 months (0 pts) Confusion or Disorientation No (0 pts) Intoxicated or Sedated No (0 pts) Impaired Gait No (0 pts) Mobility Assist Device Used No (0 pt) Altered Elimination No (0 pt) Score/Fall Risk Level 0 - 2 = Low Risk Oriented to surroundings, Maintained a safe environment, Educated pt \T\ family on fall prevention, incl call for assistance when getting out of bed. Abuse screen: Denies threats or abuse. Nutritional screening: No deficits noted. Tuberculosis screening: No symptoms or risk factors identified. Assessment: :29 Reassessment: SEE TRIAGE NOTE. bm8 22:25 Reassessment: Patient appears in no apparent distress at this time. Patient and/or bm8 family updated on plan of care and expected duration. Pain level reassessed. Patient is alert, oriented x 3, equal unlabored respirations, skin warm/dry/pink. Patient states feeling better. Patient states symptoms have improved. Pain: Complains of pain in left wrist, left hand and palmar aspect of left forearm Pain currently is 4 out of 10 on a pain scale. Quality of pain is described as gnawing. Neuro: Level of Consciousness is awake, alert, obeys commands, Oriented to person, place, time, situation, Rental Agent are equal bilaterally. Cardiovascular: No deficits noted. Denies chest pain, fatigue, lightheadedness, shortness of breath. Respiratory: No deficits noted. Airway is patent Respiratory effort is even, unlabored, Respiratory pattern is regular. GI: No deficits noted. No signs and/or symptoms were reported involving the gastrointestinal system. : No deficits noted. No signs and/or symptoms were reported regarding the genitourinary system. EENT: No deficits noted. No signs and/or symptoms were reported regarding the EENT system. Derm: No deficits noted. No signs and/or symptoms reported regarding the dermatologic system. Musculoskeletal: No deficits noted. No signs and/or symptoms reported regarding the musculoskeletal system. Vital Signs: 21:21 BP 140 / 94; Pulse 86; Resp 18; Temp 97.3; Pulse Ox 100% on R/A; Weight 122.47 kg; bm8 Height 5 ft. 3 in. ; Pain 0/10; 22:25 BP 119 / 83; Pulse 82; Resp 18; Temp 97.3; Pulse Ox 100% ; Pain 4/10; bm8 21:21 Body Mass Index 47.83 (122.47 kg, 160.02 cm) bm8 21:21 Pain Scale: Adult bm8 22:25 Pain Scale: Adult bm8 Ericka Coma Score: 21:29 Eye Response: spontaneous(4). Motor Response: obeys commands(6). Verbal Response: bm8 oriented(5). Total: 15. 23:29 Eye Response: spontaneous(4). Motor Response: obeys commands(6). Verbal Response: sp4 oriented(5). Total: 15. NIH Stroke Scale Scores: 23:29 NIHSS Score: 0 sp4 ED Course: 20:58 Patient arrived in ED. gm2 20:59 Tramaine Lynch DO is Private Physician. gm2 21:05 Jose Luis Parikh MD is Attending Physician. sp4 21:21 Ryan Asher, RN is Primary Nurse. bm8 21:22 Triage completed. bm8 21:22 Arm band placed on right wrist. Patient placed in an exam room, on a stretcher. bm8 21:29 Patient has correct armband on for positive identification. Placed in gown. Bed in low bm8 position. Call light in reach. Side rails up X 1. Pulse ox on. NIBP on. Door closed. Noise minimized. Warm blanket given. Head of bed elevated. 21:29 Provided Education on: PLAN OF CARE FOR ER VISIT. bm8 21:29 No provider procedures requiring assistance completed. BLOOD SUGAR FINGER STICK 90. bm8 22:09 CT Head C Spine In Process Unspecified. EDMS 22:25 Provided Education on: diagnosis and ways to relieve symptoms at home. Pulse ox on. bm8 NIBP on. 22:25 Patient did not have IV access during this emergency room visit. Patient maintains SpO2 bm8 saturation greater than 95% on room air. 23:17 Tramaine Lynch DO is Referral Physician. sp4 Administered Medications: No medications were administered Medication: 21:29 VIS not applicable for this client. bm8 Point of Care Testing: Blood Glucose: 21:19 Blood Glucose: 90 mg/dL; km8 Ranges: Outcome: 23:16 Discharged to home ambulatory, bm8 23:16 Condition: stable 23:16 Discharge instructions given to patient, Instructed on discharge instructions, follow up and referral plans. medication usage, Demonstrated understanding of instructions, follow-up care, medications, 23:18 Discharge ordered by . sp4 23:22 Patient left the ED. km8 NIH Stroke Scale - NIH Stroke Score Date: 12/19/2023 Time: 23:29 Total Score = 0 10. Dysarthria (speech clarity - read or repeat words) - 0(Normal) 11. Extinction and Inattention (visual/tactile/auditory/spatial/personal) - 0(No abnormality) 1a. Level of Consciousness (LOC) - 0(Alert) 1b. Level of Consciousness (LOC) (Month \T\ Age) - 0(Both) 1c. LOC Commands (Open \T\ Closes Eyes/Environmental Resource Specialist) - 0(Both) 2. Best Gaze (Lateral Gaze Paresis) - 0(Normal) 3. Visual Field Loss - 0(No visual loss) 4. Facial Palsy - 0(Normal) 5a. Left Arm: Motor (10-second hold) - 0(No drift) 5b. Right Arm: Motor (10-second hold) - 0(No drift) 6a. Left Leg: Motor (5-second hold - always test supine) - 0(No drift) 6b. Right Leg: Motor (5-second hold - always test supine) - 0(No drift) 7. Limb Ataxia (finger/nose \T\ heel/gaitan - test with eyes open) - 0(Absent) 8. Sensory Loss (pinprick arms/legs/face) - 0(Normal) 9. Best Language: Aphasia (description/naming/reading) - 0(No aphasia) Initials: sp4 Signatures: Dispatcher [employer] EDMS Jose Luis Parikh MD MD sp4 Ashley Vargas gm2 Gabi Muhammad, RN RN km8 Ryan Asher RN RN bm8
--- NOTE | 2023-12-19 23:18 | EDPHYS ---
Physician Documentation [facility] Name: Dori Guardado Age: 48 yrs Sex: Female : 1975 Arrival Date: 12/19/2023 Time: 20:53 Bed 8 Private MD: [facility] ED Physician Jose Luis Parikh HPI: 12/18 21:05 This 48 yrs old Black Female presents to ER via Unassigned with complaints of Arm Pain, sp4 Numbness Of Hand. 21:06 PMH - Historical: Allergies: 03/11 No Known Allergies; PMHx: Atrial Fib; bowel sp4 obstruction; Crohn's; Hypertension PSHx: Appendectomy; section; Cholecystectomy; partial hysterectomy; . 23:29 Patient presents with complaint of acute onset of subacute onset of numbness tingling sp4 to the left forearm and hand. There was no weakness, there was no chest pain,, . 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 - Social history:: Smoking status: Patient denies any tobacco usage or history of. Patient/guardian denies using alcohol, street drugs, IV drugs. - Family history:: not pertinent. ROS: 23:29 Constitutional: Negative for fever, chills, and weight loss, positive numbness tingling sp4 to the left forearm 23:29 All other systems are negative, Exam: 23:29 Constitutional: This is a well developed, well nourished patient who is awake, alert, sp4 and in no acute distress. Head/Face: Normocephalic, atraumatic. Eyes: Pupils equal round and reactive to light, extra-ocular motions intact. Lids and lashes normal. Conjunctiva and sclera are not injected. Cornea within normal limits. Periorbital areas with no swelling, redness, or edema. ENT: Nares patent. No nasal discharge, no septal abnormalities noted. Tympanic membranes are normal and external auditory canals are clear. Oropharynx with no redness, swelling, or masses, exudates, or evidence of obstruction, uvula midline. Mucous membranes moist. Neck: Trachea midline, no thyromegaly or masses palpated, and no cervical lymphadenopathy. Supple, full range of motion without nuchal rigidity, or vertebral point tenderness. Chest/axilla: Normal chest wall appearance and motion. Nontender with no deformity. No lesions are appreciated. Cardiovascular: Regular rate and rhythm with a normal S1 and S2. No gallops, murmurs, or rubs. Normal PMI, no JVD. No pulse deficits. Respiratory: Lungs have equal breath sounds bilaterally, clear to auscultation and percussion. No rales, rhonchi or wheezes noted. No increased work of breathing, no retractions or nasal flaring. Abdomen/GI: Soft, with normal bowel sounds. No distension or tympany. No guarding or rebound. No evidence of tenderness throughout. Back: No spinal tenderness. No costovertebral tenderness. Skin: Warm, dry with normal turgor. Normal color with no rashes, no lesions, and no evidence of cellulitis. MS/ Extremity: Pulses equal, no cyanosis. Neurovascular intact. Full, normal range of motion. Neuro: Awake and alert, GCS 15, oriented to person, place, time, and situation. Cranial nerves II-XII grossly intact. Motor strength 5/5 in all extremities. Sensory grossly intact. Psych: Awake, alert, with orientation to person, place and time. Behavior, mood, and affect are within normal limits Vital Signs: 21:21 BP 140 / 94; Pulse 86; Resp 18; Temp 97.3; Pulse Ox 100% on R/A; Weight 122.47 kg; bm8 Height 5 ft. 3 in. ; Pain 0/10; 22:25 BP 119 / 83; Pulse 82; Resp 18; Temp 97.3; Pulse Ox 100% ; Pain 4/10; bm8 21:21 Body Mass Index 47.83 (122.47 kg, 160.02 cm) bm8 21:21 Pain Scale: Adult bm8 22:25 Pain Scale: Adult bm8 NIH Stroke Scale Scores: 23:29 NIHSS Score: 0 sp4 Ericka Coma Score: 21:29 Eye Response: spontaneous(4). Motor Response: obeys commands(6). Verbal Response: bm8 oriented(5). Total: 15. 23:29 Eye Response: spontaneous(4). Motor Response: obeys commands(6). Verbal Response: sp4 oriented(5). Total: 15. MDM: 21:57 Patient medically screened. sp4 23:12 ED course: EXAM DESCRIPTION: CT - CTHCSPWOC - 12/19/2023 10:07 pm CLINICAL HISTORY: sp4 Trauma, head and neck injury. tingling left arm COMPARISON: Soft Tissue Neck W/Contr dated 11/18/2022; Soft Tissue Neck W/Contr dated 12/09/2021; C Spine Wo Con dated 02/15/2021 TECHNIQUE: Axial 5 mm thick images of the head were obtained. Axial 2 mm thick images of the cervical spine were obtained with sagittal and coronal reconstruction images generated and reviewed. All CT scans are performed using dose optimization technique as appropriate and may include automated exposure control or mA/KV adjustment according to patient size. FINDINGS: CT HEAD WITHOUT CONTRAST: No acute hemorrhage, hydrocephalus or extra-axial collection is identified.No areas of brain edema or midline shift. The paranasal sinuses and mastoids are clear.The calvarium is intact. CT CERVICAL SPINE WITHOUT CONTRAST: No fracture or subluxation.Mild midcervical degenerative changes, most notable left C4-5.No prevertebral soft tissues swelling is identified. IMPRESSION: No acute intracranial or cervical spine findings. . 23:32 Differential diagnosis: dislocation, contusion, abrasion, tendonitis, Paresthesias. sp4 23:32 Data reviewed: vital signs, nurses notes, lab test result(s), finger stick glucose, sp4 radiologic studies, CT scan. ED course: Patient has no sign of acute CVA. Possibly radiculopathy left arm however there is no pain. There is no chest pain that would lead to suspicion of ACS. CT reveals mild mid cervical degenerative changes especially at C4-C5 level. Dextrostix 90 suggesting no sign of diabetic neuropathy. Patient at this time stable for discharge home with advised to obtain MRI of the C-spine show if symptoms persist beyond 2 weeks. Advised to continue all home medications. . 12/18 21:31 Order name: Glucose, Ancillary Testing; Complete Time: 23:16 EDMS 12/18 21:17 Order name: CT Head C Spine; Complete Time: 23:16 sp4 12/18 21:18 Order name: Accucheck Blood Glucose; Complete Time: 21:19 sp4 Administered Medications: No medications were administered Point of Care Testing: Blood Glucose: 21:19 Blood Glucose: 90 mg/dL; km8 Ranges: Critical Glucose Levels:Adult <50 mg/dl or >400 mg/dl <40 mg/dl or >180 mg/dl Disposition Summary: 12/19/23 23:18 Discharge Ordered Problem: new sp4 Symptoms: have improved sp4 Condition: Stable sp4 Diagnosis - Paresthesia of skin sp4 - Left arm paresthesia , degenerative disc disease C-spine sp4 Followup: sp4 - With: Tramaine Lynch DO - When: 7 - 10 days - Reason: Recheck today's complaints Discharge Instructions: - Discharge Summary Sheet sp4 - Degenerative Disk Disease sp4 - Paresthesia, [id number] sp4 Forms: - Patient Portal Instructions sp4 NIH Stroke Scale - NIH Stroke Score Date: 12/19/2023 Time: 23:29 Total Score = 0 10. Dysarthria (speech clarity - read or repeat words) - 0(Normal) 11. Extinction and Inattention (visual/tactile/auditory/spatial/personal) - 0(No abnormality) 1a. Level of Consciousness (LOC) - 0(Alert) 1b. Level of Consciousness (LOC) (Month \T\ Age) - 0(Both) 1c. LOC Commands (Open \T\ Closes Eyes/Catering Director) - 0(Both) 2. Best Gaze (Lateral Gaze Paresis) - 0(Normal) 3. Visual Field Loss - 0(No visual loss) 4. Facial Palsy - 0(Normal) 5a. Left Arm: Motor (10-second hold) - 0(No drift) 5b. Right Arm: Motor (10-second hold) - 0(No drift) 6a. Left Leg: Motor (5-second hold - always test supine) - 0(No drift) 6b. Right Leg: Motor (5-second hold - always test supine) - 0(No drift) 7. Limb Ataxia (finger/nose \T\ heel/gaitan - test with eyes open) - 0(Absent) 8. Sensory Loss (pinprick arms/legs/face) - 0(Normal) 9. Best Language: Aphasia (description/naming/reading) - 0(No aphasia) Initials: sp4 Signatures: Dispatcher [employer] Jose Luis Neville MD MD sp4 Ryan Asher RN RN bm8
[2023-12-19 23:46] VITALS: BP 119/83; TEMP 97.3; O2SAT 100
== END ==
LOC: ER 20:53
DX: M50.30 Other cervical disc degeneration, unspecified cervical region (principal); I10 Essential (primary) hypertension; I48.91 Unspecified atrial fibrillation; Z79.01 Long term (current) use of anticoagulants
CPT/HCPCS: 70450; 72125; 82947

== ENCOUNTER 2024-02-27 12:41 | Emergency (ER) | payer OTHER ==
[2024-02-27] MEDS ORDERED: NA CHLORIDE 0.9% 1,000 ML ONE (13:16)
[2024-02-27] MEDS ORDERED: ONDANSETRON 4 MG/2 ML VIAL ONE (13:16)
[2024-02-27 15:46] LABS: Absolute Eosinophils 0.1 K/uL (0-0.5); Absolute Lymphocytes (CBC) 2.6 K/uL (0.7-4.9); Absolute Monocytes 0.5 K/uL (0.1-1.3); Absolute Neutrophil 3.8 K/uL (1.8-8.0); Basophils % 0.7 % (0-1.3); Eosinophils % 0.7 % (0-4.4); Hematocrit 41.6 % (36.0-45.0); Hemoglobin 12.7 g/dL (12.0-15.0); Lymphocytes % 37.3 % (15.3-44.8); MCH 24.6 pg (27.0-35.0); MCHC 30.6 g/dL (32.0-36.0); MCV 80.3 fL (80-100); MPV 8.6 fL (7.6-11.3); Monocytes % 7.7 % (3.3-12.3); Neutrophils % 53.6 % (41.7-73.7); Platelets 376 thou/uL (152-406); RBC Red Blood Cell Count 5.18 M/uL (3.86-4.86); Red Cell Distribution Width 14.9 % (12.1-15.2)
[2024-02-27 16:11] LABS: Albumin 3.3 g/dL (3.4-5.0); Albumin/Globulin Ratio 0.6 (1.1-1.8); Anion Gap 8.9 mEq/L (5.0-15.0); Bilirubin Total 0.5 mg/dL (0.2-1.0); Globulin 5.6 g/dL (2.3-3.5); Potassium 3.9 mEq/L (3.5-5.1); Protein, Total 8.9 g/dL (6.4-8.2); Troponin High Sensitivity 4.7 pg/mL (<58.9)
--- NOTE | 2024-02-27 16:47 | RAD REPORT ---
EXAM DESCRIPTION: CT - Abdomen Pelvis W Contrast - 02/27/2024 4:31 pm CLINICAL HISTORY: Abdominal pain . Epigastric pain COMPARISON: November 2003 TECHNIQUE: Computed axial tomography of the abdomen pelvis was obtained. 100 cc Isovue-300 was admin istered intravenously. Oral contrast was not requested which limits evaluation of bowel and appendix All CT scans are performed using dose optimization technique as appropriate and may include automated exposure control or mA/KV adjustment according to patient size. FINDINGS: The liver, spleen, pancreas, adrenal and kidneys appear unremarkable. There is no evidence of diverticulitis. Cholecystectomy. No adnexal mass IMPRESSION: No acute abnormality is displayed.
--- NOTE | 2024-02-27 16:48 | RAD REPORT ---
EXAM DESCRIPTION: Elder Single View02/27/2024 2:01 pm CLINICAL HISTORY: Chest pain COMPARISON: December 2023 FINDINGS: The lungs appear clear of acute infiltrate. The heart is normal size IMPRESSION: No acute abnormalities displayed
--- NOTE | 2024-02-27 17:00 | ER ---
Nurse's Notes [facility] Name: Dori Guardado Age: 49 yrs Sex: Female : 1975 Arrival Date: 02/27/2024 Time: 12:41 Bed 15 Private MD: Diagnosis: Chest pain, unspecified;Abdominal pain, unspecified Presentation: 02/26 13:01 Chief complaint: Patient states: "I went to an ENT and was told I had an sinus mb9 infection. Last night, I started having burning in my chest and abdominal area. I'm N/V.". Coronavirus screen: Vaccine status: Patient reports being unvaccinated. Ebola Screen: No symptoms or risks identified at this time. Initial Sepsis Screen: Does the patient meet any 2 criteria? No. Patient's initial sepsis screen is negative. Does the patient have a suspected source of infection? No. Patient's initial sepsis screen is negative. Risk Assessment: Do you want to hurt yourself or someone else? Patient reports no desire to harm self or others. Onset of symptoms was February 27, 2024. 13:01 Acuity: KASH 3 mb9 13:01 Method Of Arrival: Ambulatory mb9 Triage Assessment: 13:03 General: Appears uncomfortable, Behavior is calm, cooperative. Pain: Complains of pain mb9 in chest Pain radiates to abdomen. EENT: No signs and/or symptoms were reported regarding the EENT system. Neuro: Level of Consciousness is awake, alert, obeys commands, Oriented to person, place, time, situation, Appropriate for age. Cardiovascular: Reports chest pain, Patient's skin is warm and dry. Respiratory: Airway is patent Respiratory effort is even, unlabored, Respiratory pattern is regular, symmetrical. GI: Abdomen is round obese, Reports lower abdominal pain, upper abdominal pain, nausea, vomiting. : No signs and/or symptoms were reported regarding the genitourinary system. Derm: Skin is pink, warm \\T\\ dry. Musculoskeletal: Range of motion: intact in all extremities. Historical: - Allergies: 13:02 No Known Allergies; mb9 - PMHx: 13:02 Atrial Fib; bowel obstruction; Crohn's; Hypertension; mb9 - PSHx: 13:02 Appendectomy; section; Cholecystectomy; partial hysterectomy; mb9 - Immunization history:: Adult Immunizations up to date. - Infectious Disease History:: Denies. - Social history:: Smoking status: Patient denies any tobacco usage or history of. Screenin:[facility] ED Fall Risk Assessment (Adult) History of falling in the last 3 months, bp including since admission No falls in past 3 months (0 pts). Abuse screen: Denies threats or abuse. Denies injuries from another. Nutritional screening: No deficits noted. Tuberculosis screening: No symptoms or risk factors identified. Assessment: 15:00 General: Appears in no apparent distress. uncomfortable, obese, Behavior is calm, bp cooperative, appropriate for age. Pain: Complains of pain in abdomen Pain began gradually. GI: Reports upper abdominal pain, nausea. 17:15 Reassessment: [facility]. bp Vital Signs: 13:01 BP 117 / 78; Pulse 64; Resp 18; Temp 98.1; Pulse Ox 100% on R/A; Weight 126.1 kg; mb9 Height 5 ft. 3 in. ; Pain 7/10; 17:15 BP 121 / 69; Pulse 79; Resp 16; Pulse Ox 100% ; bp 13:01 Body Mass Index 49.25 (126.10 kg, 160.02 cm) mb9 13:01 Pain Scale: Adult mb9 ED Course: 12:44 Patient arrived in ED. mg5 12:55 Edilson Terry MD is Attending Physician. ec2 13:02 Triage completed. mb9 13:03 Arm band placed on. mb9 13:03 EKG done, by ED staff, reviewed by Edilson Terry MD. mb9 13:25 Missed attempt(s): 20 gauge in left antecubital area. bc6 13:33 Missed attempt(s): 22 gauge in right antecubital area. bc6 14:03 XRAY Chest (1 view) In Process Unspecified. EDMS 14:40 Srinivas Curran, RN is Primary Nurse. bp 15:30 Radiology exam delayed due to IV insertion attempt and/or patient not having md2 appropriate IV at this time. 15:36 Inserted saline lock: 24 gauge in right forearm, using aseptic technique. Blood bp collected. 16:33 CT Abd/Pelvis - IV Contrast Only In Process Unspecified. EDMS 17:15 Patient has correct armband on for positive identification. Provided Education on: N/A. bp Client placed on continuous cardiac and pulse oximetry monitoring. NIBP monitoring applied. equine science instructor on. 17:15 No provider procedures requiring assistance completed. IV discontinued, intact, bp bleeding controlled, No redness/swelling at site. Pressure dressing applied. O2 via ROOM AIR. Administered Medications: 15:36 Drug: NS 0.9% IV 1000 ml IV at 1 bolus Per protocol; 1000 mL bolus Route: IV; Rate: 1 bp bolus; Site: right forearm; 17:17 Follow up: IV Status: Completed infusion; IV Intake: 1000ml bp 15:36 Drug: Ondansetron IVP 4 mg IVP once; over 2 minutes Route: IVP; Site: right forearm; bp 17:17 Follow up: Response: No adverse reaction bp Medication: 17:15 VIS not applicable for this client. bp Intake: 17:17 IV: 1000ml; Total: 1000ml. bp Outcome: 16:59 Discharge ordered by . ec2 17:15 Discharged to home ambulatory, bp 17:15 Condition: stable 17:15 Discharge instructions given to patient, Instructed on discharge instructions, follow up and referral plans. medication usage, Demonstrated understanding of instructions, follow-up care, medications, Prescriptions given X 2, 17:18 Patient left the ED. bp Signatures: Dispatcher [employer] Srinivas Gregory RN RN bp Maria D Linares md2 Maira Dawson RN RN mb9 Tatiana Castellanos 6 Janeth Hickey mg5 Edilson Terry MD MD ec2 Corrections: (The following items were deleted from the chart) 13:03 13:01 Pulse 64bpm; Resp 18bpm; Pulse Ox 100% RA; Temp 98.1F; 126.1 kg; Height 5 ft. 3 mb9 in.; BMI: 49.2; Pain 7/10, Adult; mb9
--- NOTE | 2024-02-27 17:00 | EDPHYS ---
Physician Documentation [facility] Name: Dori Guardado Age: 49 yrs Sex: Female : 1975 Arrival Date: 02/27/2024 Time: 12:41 Bed 15 Private MD: ED Physician Edilson Terry HPI: 02/26 13:09 This 49 yrs old Black Female presents to ER via Ambulatory with complaints of Chest ec2 Pain, Abdominal Pain. 13:09 Patient arrives today for evaluation of chest pain and abdominal pain. Patient reports ec2 upper abdominal pain, reports associated nausea, no vomiting. Also complaining of burning in the chest. History of small bowel obstruction, previous abdominal surgeries. Also history of Crohn's disease.. Historical: - Allergies: 13:02 No Known Allergies; mb9 - PMHx: 13:02 Atrial Fib; bowel obstruction; Crohn's; Hypertension; mb9 - PSHx: 13:02 Appendectomy; section; Cholecystectomy; partial hysterectomy; mb9 - Immunization history:: Adult Immunizations up to date. - Infectious Disease History:: Denies. - Social history:: Smoking status: Patient denies any tobacco usage or history of. ROS: 13:10 Constitutional: as per hpi ec2 Exam: 13:10 Constitutional: GEN: NAD Head: atraumatic Eyes: EOMI Ears: External ears are ec2 normal. CV: regular rate LUNGS: no respiratory distress ABD: non-distended, soft, no guarding, not rigid, tender in the epigastrium SKIN: no evidence of rashes MSK: no evidence of trauma NEURO: moves all extremities equally Vital Signs: 13:01 BP 117 / 78; Pulse 64; Resp 18; Temp 98.1; Pulse Ox 100% on R/A; Weight 126.1 kg; mb9 Height 5 ft. 3 in. ; Pain 7/10; 17:15 BP 121 / 69; Pulse 79; Resp 16; Pulse Ox 100% ; bp 13:01 Body Mass Index 49.25 (126.10 kg, 160.02 cm) mb9 13:01 Pain Scale: Adult mb9 MDM: 13:10 Data reviewed: vital signs. ED course: Today for evaluation of abdominal pain. ec2 Examination markable for well-appearing nontoxic individual who has reassuring vital signs. Given the patient's history of Crohn's disease, history of bowel issues. Will obtain CT imaging. Will also obtain lab work and treat the patient's symptoms. Differential diagnosis includes abdominal obstruction, gastroenteritis, ACS.. 13:11 ED course: EKG independently reviewed and interpreted by me, shows normal sinus rhythm, ec2 rate of 58, no acute ST segment elevations, intervals are nonconcerning.. 13:24 Patient medically screened. ec2 16:56 ED course: CBC is reassuring, metabolic profile with appropriate renal function and ec2 troponin within normal ranges, chest x-ray independently reviewed and interpreted by me, shows no acute intrathoracic process. CT abdomen pelvis shows no acute intra-abdominal process. On reassessment patient is well-appearing in no acute distress. Will discharge home and have the patient follow-up with her primary care doctor. Return precautions given. . 16:56 ED course: MDM: Differential diagnosis as documented above in ED course; All lab tests ec2 ordered and reviewed as documented above; Independent interpretation of tests: EKG as above; radiograph as above; . 02/26 12:57 Order name: CBC with Diff ec2 02/26 12:57 Order name: Troponin HS; Complete Time: 16:56 ec2 02/26 12:57 Order name: CMP; Complete Time: 16:56 ec2 04 15:52 Order name: CBC Smear Scan EDMS 02/26 12:57 Order name: XRAY Chest (1 view); Complete Time: 16:56 ec2 04 13:09 Order name: CT Abd/Pelvis - IV Contrast Only; Complete Time: 16:56 ec2 02/26 12:57 Order name: EKG; Complete Time: 12:57 ec2 02/26 12:57 Order name: Cardiac monitoring; Complete Time: 15:36 ec2 02/26 12:57 Order name: EKG - Nurse/Tech; Complete Time: 13:04 ec2 02/26 12:57 Order name: IV Saline Lock; Complete Time: 15:36 ec2 02/26 12:57 Order name: Labs collected and sent; Complete Time: 15:36 ec2 02/26 12:57 Order name: O2 Per Protocol; Complete Time: 15:36 ec2 02/26 12:57 Order name: O2 Sat Monitoring; Complete Time: 15:36 ec2 Administered Medications: 15:36 Drug: NS 0.9% IV 1000 ml IV at 1 bolus Per protocol; 1000 mL bolus Route: IV; Rate: 1 bp bolus; Site: right forearm; 17:17 Follow up: IV Status: Completed infusion; IV Intake: 1000ml bp 15:36 Drug: Ondansetron IVP 4 mg IVP once; over 2 minutes Route: IVP; Site: right forearm; bp 17:17 Follow up: Response: No adverse reaction bp Disposition Summary: 02/27/24 16:59 Discharge Ordered Notes: Location: Home ec2 Condition: Stable ec2 Diagnosis - Chest pain, unspecified ec2 - Abdominal pain, unspecified ec2 Followup: ec2 - With: Private Physician - When: - Reason: Re-evaluation by your physician Discharge Instructions: - Discharge Summary Sheet ec2 - Abdominal Pain, Adult ec2 - Nonspecific Chest Pain, Adult ec2 Forms: - Medication Reconciliation Form ec2 - Antibiotic Education ec2 - Prescription Opioid Use ec2 - Patient Portal Instructions ec2 - Leadership Thank You Letter ec2 Prescriptions: - Zofran 4 mg Oral Tablet - take 1 tablet ORAL route every 12 hours As needed; 20 tablet; Refills: 0, ec2 Product Selection Permitted - methocarbamol 500 mg Oral tablet - take 2 tablets ORAL route 4 times per day; 20 tablet; Refills: 0, Product ec2 Selection Permitted Signatures: Dispatcher [employer] Srinivas Gregory RN RN Maira Campa RN RN mb9 Edilson Terry MD MD ec2 Corrections: (The following items were deleted from the chart) 13:10 13:09 Patient arrives today for evaluation of chest pain and abdominal pain. Patient ec2 reports upper abdominal pain, reports associated nausea, no vomiting.. ec2
[2024-02-27 17:04] LABS: Platelet Estimate ADEQ; White Blood Cell Scan OK (OK)
[2024-02-27 17:05] LABS: Blood Morphology Comment NOT SEEN (NOT SEEN)
[2024-02-27 18:46] VITALS: BP 121/69; TEMP 98.1; O2SAT 100
--- NOTE | 2024-02-28 16:35 | EKG ---
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
== END 2024-02-27 17:18 | disposition home or self-care (01) ==
LOC: ER 12:41
DX: R07.9 Chest pain, unspecified (principal); R10.10 Upper abdominal pain, unspecified
CPT/HCPCS: 96361; 93005; 85025; 36415; 84484; 80053; 74177; 71045; 96374; 99285; Q9967; J2405; J7030

== ENCOUNTER 2024-03-25 18:19 | Emergency (ER) | payer OTHER ==
--- NOTE | 2024-03-25 19:14 | RAD REPORT ---
EXAM DESCRIPTION: US - Extremity Venous Uni Ltd - 03/25/2024 7:10 pm CLINICAL HISTORY: PAIN Leg swelling and edema. COMPARISON: <Comparisons> FINDINGS: Left lower extremity venous system was interrogated with Doppler technique. Normal flow, c ompressibility and augmentation was noted. There is no DVT present. IMPRESSION: No evidence of left lower extremity deep venous thrombosis.
--- NOTE | 2024-03-25 19:46 | ER ---
Nurse's Notes [facility] Name: Dori Guardado Age: 49 yrs Sex: Female : 1975 Arrival Date: 03/25/2024 Time: 18:19 Bed DX4 Private MD: Diagnosis: Pain in left lower leg Presentation: 03/25 18:37 Chief complaint: Patient states: L leg pain, swelling since last night. No trauma, on ll1 Eliquis for DVT. Coronavirus screen: Client denies travel out of the [place] in the last 14 days. At this time, the client does not indicate any symptoms associated with coronavirus-19. Ebola Screen: Patient denies travel to an Ebola-affected area in the 21 days before illness onset. Initial Sepsis Screen: Does the patient meet any 2 criteria? No. Patient's initial sepsis screen is negative. Does the patient have a suspected source of infection? No. Patient's initial sepsis screen is negative. Risk Assessment: Do you want to hurt yourself or someone else? Patient reports no desire to harm self or others. Onset of symptoms was March 24, 2024. 18:37 Method Of Arrival: Ambulatory ll1 18:37 Acuity: KASH 3 ll1 Triage Assessment: 18:42 General: Appears uncomfortable, Behavior is calm, cooperative, appropriate for age. ll1 Pain: Complains of pain in left leg. Musculoskeletal: Reports pain in left leg. Historical: - Allergies: 18:25 No Known Allergies; ll1 - PMHx: 18:25 Atrial Fib; bowel obstruction; Crohn's; Hypertension; ll1 18:37 DVT; ll1 - PSHx: 18:25 Appendectomy; section; Cholecystectomy; partial hysterectomy; ll1 18:37 ablation; ll1 - Immunization history:: Adult Immunizations up to date. - Infectious Disease History:: Denies. - Social history:: Smoking status: Patient denies any tobacco usage or history of. Screenin:44 [facility] ED Fall Risk Assessment (Adult) History of falling in the last 3 months, mb9 including since admission No falls in past 3 months (0 pts) Confusion or Disorientation No (0 pts) Intoxicated or Sedated No (0 pts) Impaired Gait No (0 pts) Mobility Assist Device Used No (0 pt) Altered Elimination No (0 pt) Score/Fall Risk Level 0 - 2 = Low Risk Oriented to surroundings, Maintained a safe environment, Educated pt \T\ family on fall prevention, incl call for assistance when getting out of bed. Abuse screen: Denies threats or abuse. Nutritional screening: No deficits noted. Tuberculosis screening: No symptoms or risk factors identified. Assessment: 19:44 Reassessment: No changes from previously documented assessment. Patient and/or family mb9 updated on plan of care and expected duration. Pain level reassessed. Patient is alert, oriented x 3, equal unlabored respirations, skin warm/dry/pink. Vital Signs: 18:37 BP 138 / 83; Pulse 71; Resp 17; Temp 98; Pulse Ox 99% ; Weight 122.47 kg; Height 5 ft. ll1 3 in. ; Pain 8/10; 18:37 Body Mass Index 47.83 (122.47 kg, 160.02 cm) ll1 18:37 Pain Scale: Adult ll1 ED Course: 18:22 Patient arrived in ED. mg5 18:26 Arm band placed on. ll1 18:27 Camilo Marie DO is Attending Physician. ms3 18:38 Triage completed. ll1 19:12 US Extremity Venous Unilateral Ltd In Process Unspecified. EDMS 19:44 Patient has correct armband on for positive identification. Provided Education on: mb9 discharge paperwork. 19:44 No provider procedures requiring assistance completed. Patient did not have IV access mb9 during this emergency room visit. 19:48 Maira Dawson, RN is Primary Nurse. mb9 Administered Medications: No medications were administered Medication: 19:45 VIS not applicable for this client. mb9 Outcome: 19:45 Discharge ordered by MD. ms3 19:48 Discharged to home ambulatory, mb9 19:48 Condition: stable 19:48 Discharge instructions given to patient, Instructed on discharge instructions, follow up and referral plans. Demonstrated understanding of instructions, follow-up care, 19:49 Patient left the ED. mb9 Signatures: Dispatcher [employer] Desirae Purvis RN RN ll1 Camilo Marie DO DO ms3 Maira Dawson, RN RN mb9 Janeth Hickey mg5
--- NOTE | 2024-03-25 19:46 | EDPHYS ---
Physician Documentation [facility] Name: Dori Guardado Age: 49 yrs Sex: Female : 1975 Arrival Date: 03/25/2024 Time: 18:19 Bed DX4 Private MD: ED Physician Camilo Marie HPI: 03/25 19:45 This 49 yrs old Black Female presents to ER via Ambulatory with complaints of Leg Pain. ms3 19:45 49-year-old female with past medical history of atrial fibrillation, bowel obstruction, ms3 Crohn's disease, hypertension, DVT presents to the emergency department for left posterior leg pain that began after sitting on the toilet. Patient states she has a history of DVT and is currently on Eliquis. Patient rates her discomfort an 8/10. She denies any alleviating or inciting factors. Historical: - Allergies: 18:25 No Known Allergies; ll1 - PMHx: 18:25 Atrial Fib; bowel obstruction; Crohn's; Hypertension; ll1 18:37 DVT; ll1 - PSHx: 18:25 Appendectomy; section; Cholecystectomy; partial hysterectomy; ll1 18:37 ablation; ll1 - Immunization history:: Adult Immunizations up to date. - Infectious Disease History:: Denies. - Social history:: Smoking status: Patient denies any tobacco usage or history of. ROS: 19:45 Constitutional: Negative for fever, and chills. Cardiovascular: Negative for chest ms3 pain, and palpitations. Respiratory: Negative for shortness of breath, cough, wheezing, and pleuritic chest pain, Abdomen/GI: Negative for abdominal pain, nausea, vomiting, diarrhea, and constipation, 19:45 MS/extremity: Positive for Left posterior leg pain, Exam: 19:45 Constitutional: This is a well developed, well nourished patient who is awake, alert, ms3 and in no acute distress. Chest/axilla: Normal chest wall appearance and motion. Nontender with no deformity. Cardiovascular: Regular rate and rhythm with a normal S1 and S2. No gallops, murmurs, or rubs. Normal PMI, no JVD. No pulse deficits. Respiratory: Lungs have equal breath sounds bilaterally, clear to auscultation and percussion. No rales, rhonchi or wheezes noted. No increased work of breathing, no retractions or nasal flaring. Abdomen/GI: Soft, non-tender, with normal bowel sounds. No distension or tympany. No guarding or rebound. No evidence of tenderness throughout. 19:45 Musculoskeletal/extremity: Extremities: noted in the left leg: pain, tenderness, ms3 Vital Signs: 18:37 BP 138 / 83; Pulse 71; Resp 17; Temp 98; Pulse Ox 99% ; Weight 122.47 kg; Height 5 ft. ll1 3 in. ; Pain 8/10; 18:37 Body Mass Index 47.83 (122.47 kg, 160.02 cm) ll1 18:37 Pain Scale: Adult ll1 MDM: 18:45 Patient medically screened. ms3 19:45 Differential diagnosis: Musculoskeletal pain versus DVT. Data reviewed: vital signs, ms3 nurses notes, and as a result, I will discharge patient. Care significantly affected by the following chronic conditions: Hypertension, DVT. Counseling: I had a detailed discussion with the patient and/or guardian regarding the historical points, exam findings, and any diagnostic results supporting the discharge/admit diagnosis, radiology results, the need for outpatient follow up, to return to the emergency department if symptoms worsen or persist or if there are any questions or concerns that arise at home. Special discussion: I discussed with the patient/guardian in detail that at this point there is no indication for admission to the hospital. It is understood, however, that if the symptoms persist or worsen the patient needs to return immediately for re-evaluation. ED course: Discussed venous ultrasound with patient. Patient to follow-up with primary care physician in 2 to 3 days. All questions were answered. Return precautions discussed include worsening symptoms, or any other concerns. 03/25 18:45 Order name: US Extremity Venous Unilateral Ltd; Complete Time: 19:30 ms3 Administered Medications: No medications were administered Disposition Summary: 03/25/24 19:45 Discharge Ordered Notes: Location: Home ms3 Condition: Stable ms3 Diagnosis - Pain in left lower leg ms3 Followup: ms3 - With: Private Physician - When: 2 - 3 days - Reason: Recheck today's complaints Discharge Instructions: - Discharge Summary Sheet ms3 - Musculoskeletal Pain ms3 Forms: - Medication Reconciliation Form ms3 - Antibiotic Education ms3 - Prescription Opioid Use ms3 - Patient Portal Instructions ms3 - Leadership Thank You Letter ms3 Signatures: Dispatcher [employer] EDMS Rafi, Lynsay, RN RN ll1 Camilo Maire DO DO ms3
[2024-03-25 20:22] VITALS: BP 138/83; TEMP 98; O2SAT 99
== END 2024-03-25 19:49 | disposition home or self-care (01) ==
LOC: ER 18:19
DX: M79.662 Pain in left lower leg (principal); Z86.718 Personal history of other venous thrombosis and embolism; Z79.01 Long term (current) use of anticoagulants
CPT/HCPCS: 93971; 99282

== ENCOUNTER 2024-05-08 19:26 | Emergency (ER) | payer OTHER ==
--- NOTE | 2024-05-08 20:16 | RAD REPORT ---
EXAM DESCRIPTION: US - UPPER EXTREMITY VENOUS UNILATE - 05/08/2024 8:03 pm CLINICAL HISTORY: left arm swelling. COMPARISON: None. FINDINGS: Left internal jugular vein, left subclavian vein, left axillary vein, left brachial vein, left cephalic, left basilic, left ulnar and left radial veins demonstrate phasic signal. The veins are compressible. Doppler demonstrates good flow. Grayscale, color and spectral analysis performed on all vessels IMPRESSION: No sonographic evidence of thrombus involving the left upper extremity veins.
--- NOTE | 2024-05-08 20:23 | EDPHYS ---
Physician Documentation [facility] Name: Dori Guardado Age: 49 yrs Sex: Female : 1975 Arrival Date: 05/08/2024 Time: 19:26 Bed 10 Private MD: ED Physician Hardy Yee HPI: 05/08 21:58 This 49 yrs old Black Female presents to ER via Ambulatory with complaints of Left arm kb swelling/pain. 21:58 Pt is a 49 year old female who presents with soreness and swelling to left upper kb extremity that started today. States she has a history of blood clots so she came to make sure she didn't have one. Denies shortness of breath, injury/trauma. . 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 - Infectious Disease History:: Denies. - Social history:: Smoking status: Patient denies any tobacco usage or history of. ROS: 21:59 Constitutional: As per HPI kb Exam: 21:59 Constitutional: This is a well developed, well nourished patient who is awake, alert, kb and in no acute distress. Head/Face: Normocephalic, atraumatic. ENT: Moist Mucous membranes Cardiovascular: Regular rate Respiratory: Respirations even and unlabored. No increased work of breathing. Talking in full sentences Abdomen/GI: Soft, non-tender. No distention Skin: Warm, dry with normal turgor. Normal color. Neuro: Awake and alert, GCS 15, oriented to person, place, time, and situation. Moves all extremities. Normal gait. 21:59 Musculoskeletal/extremity: Extremities: grossly normal except: noted in the left arm: swelling, tenderness, ROM: intact in all extremities, Circulation is intact in all extremities. Sensation intact. Vital Signs: 19:32 BP 140 / 82; Pulse 75; Resp 18; Temp 97.5; Pulse Ox 100% on R/A; Weight 123.83 kg; mb9 Height 5 ft. 3 in. ; 20:38 BP 138 / 84; Pulse 76; Resp 18; Temp 97.6; Pulse Ox 100% ; vc1 19:32 Body Mass Index 48.36 (123.83 kg, 160.02 cm) mb9 MDM: 19:33 Patient medically screened. kb 23:15 Differential diagnosis: dvt, strain, cellulitis. Data reviewed: vital signs, nurses kb notes. Test considered but Not performed: X-ray: humerus x-ray considered but pt has no bony tenderness. Counseling: I had a detailed discussion with the patient and/or guardian regarding the historical points, exam findings, and any diagnostic results supporting the discharge/admit diagnosis, radiology results, the need for outpatient follow up, a family practitioner, to return to the emergency department if symptoms worsen or persist or if there are any questions or concerns that arise at home. ED course: No erythema, warmth to indicate cellulitis, no abscess noted, no bony tenderness. . 05/08 19:38 Order name: UPPER EXTREMITY VENOUS UNILATE; Complete Time: 20:17 EDMS Administered Medications: No medications were administered Disposition Summary: 05/08/24 20:22 Discharge Ordered Notes: Location: Home kb Condition: Stable kb Diagnosis - Pain in left upper arm kb Followup: kb - With: Emergency Department - When: As needed - Reason: Worsening of condition Followup: kb - With: Private Physician - When: 2 - 3 days - Reason: Recheck today's complaints, Continuance of care, Re-evaluation by your physician Discharge Instructions: - Discharge Summary Sheet kb - Musculoskeletal Pain kb Forms: - Medication Reconciliation Form kb - Antibiotic Education kb - Prescription Opioid Use kb - Patient Portal Instructions kb - Leadership Thank You Letter kb Signatures: Dispatcher [employer] EDMS Mishel Cota FNP-C FNP-Ckb Wilkerson, Mary Beth, RN RN mb9 Corrections: (The following items were deleted from the chart) 19:36 19:36 Extremity Venous Uni Ltd+[email or web address] ordered. EDMS EDMS
--- NOTE | 2024-05-08 20:23 | ER ---
Nurse's Notes [facility] Name: Dori Guardado Age: 49 yrs Sex: Female : 1975 Arrival Date: 05/08/2024 Time: 19:26 Bed 10 Private MD: Diagnosis: Pain in left upper arm Presentation: 05/08 19:32 Chief complaint: Patient states: "This morning, I noticed my left arm started hurting mb9 and swelling. I've had clots before and still taking my Eliquis.". Coronavirus screen: At this time, the client does not indicate any symptoms associated with coronavirus-19. Ebola Screen: No symptoms or risks identified at this time. Initial Sepsis Screen: Does the patient meet any 2 criteria? No. Patient's initial sepsis screen is negative. Does the patient have a suspected source of infection? No. Patient's initial sepsis screen is negative. Risk Assessment: Do you want to hurt yourself or someone else? Patient reports no desire to harm self or others. Onset of symptoms was May 08, 2024. 19:32 Acuity: KASH 4 mb9 19:32 Method Of Arrival: Ambulatory mb9 Triage Assessment: 19:34 General: Appears in no apparent distress. Behavior is calm, cooperative. Pain: mb9 Complains of pain in left arm Pain does not radiate. Pain currently is 10 out of 10 on a pain scale. Quality of pain is described as throbbing. EENT: No signs and/or symptoms were reported regarding the EENT system. Neuro: Level of Consciousness is awake, alert, obeys commands, Oriented to person, place, time, situation, Appropriate for age. Cardiovascular: Patient's skin is warm and dry. Respiratory: Airway is patent Respiratory effort is even, unlabored, Respiratory pattern is regular, symmetrical. Derm: Skin is pink, warm \\T\\ dry. Musculoskeletal: Swelling present in left arm. 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 - Infectious Disease History:: Denies. - Social history:: Smoking status: Patient denies any tobacco usage or history of. Screenin:36 [facility] ED Fall Risk Assessment (Adult) History of falling in the last 3 months, mb9 including since admission No falls in past 3 months (0 pts) Confusion or Disorientation No (0 pts) Intoxicated or Sedated No (0 pts) Impaired Gait No (0 pts) Mobility Assist Device Used No (0 pt) Altered Elimination No (0 pt) Score/Fall Risk Level 0 - 2 = Low Risk Oriented to surroundings, Maintained a safe environment, Educated pt \\T\\ family on fall prevention, incl call for assistance when getting out of bed. Abuse screen: Denies threats or abuse. Nutritional screening: No deficits noted. Tuberculosis screening: No symptoms or risk factors identified. Assessment: 19:37 Reassessment: see triage assessment. mb9 Vital Signs: 19:32 BP 140 / 82; Pulse 75; Resp 18; Temp 97.5; Pulse Ox 100% on R/A; Weight 123.83 kg; mb9 Height 5 ft. 3 in. ; 20:38 BP 138 / 84; Pulse 76; Resp 18; Temp 97.6; Pulse Ox 100% ; vc1 19:32 Body Mass Index 48.36 (123.83 kg, 160.02 cm) mb9 ED Course: 19:31 Patient arrived in ED. jj6 19:32 Arm band placed on. mb9 19:33 Triage completed. mb9 19:33 Mishel Cota [facility]-C [facility]. kb 19:33 Hardy Yee MD is Attending Physician. kb 19:35 Maira Javier RN is Primary Nurse. mb9 19:36 Placed in gown. Bed in low position. Call light in reach. Side rails up X 1. Provided mb9 Education on: press call light if needing anything. Client placed on continuous cardiac and pulse oximetry monitoring. NIBP monitoring applied. 19:37 No provider procedures requiring assistance completed. mb9 20:05 UPPER EXTREMITY VENOUS UNILATE In Process Unspecified. EDMS 20:39 Patient did not have IV access during this emergency room visit. vc1 Administered Medications: No medications were administered Medication: 19:37 VIS not applicable for this client. mb9 Outcome: 20:22 Discharge ordered by . danny 20:38 Discharged to home ambulatory, vc1 20:38 Condition: good 20:38 Discharge instructions given to patient, Instructed on discharge instructions, follow up and referral plans. Demonstrated understanding of instructions, follow-up care, 20:39 Patient left the ED. vc1 Signatures: Dispatcher [employer] EDMS Mishel Cota, AIR BRAKE WORKER-C AIR BRAKE WORKER-Ngozi Merchant jj6 Cathy Thompson RN RN vc1 Maira Javier RN RN mb9
[2024-05-08 20:50] VITALS: O2SAT 100
[2024-05-08 20:55] VITALS: BP 138/84; TEMP 97.6
== END 2024-05-08 20:39 | disposition home or self-care (01) ==
LOC: ER 19:26
DX: M79.622 Pain in left upper arm (principal); Z86.718 Personal history of other venous thrombosis and embolism; I10 Essential (primary) hypertension; I48.91 Unspecified atrial fibrillation; Z79.01 Long term (current) use of anticoagulants
CPT/HCPCS: 93971

== ENCOUNTER 2024-05-25 19:02 | Emergency (ER) | payer OTHER ==
[2024-05-25] MEDS ORDERED: KETOROLAC 30 MG/ML INJ ONE (20:24)
--- NOTE | 2024-05-25 20:26 | RAD REPORT ---
EXAM DESCRIPTION: RADChest Single View05/25/2024 8:06 pm CLINICAL HISTORY: CHEST PAIN COMPARISON: Chest Single View dated 02/27/2024; Chest Single View dated 01/06/2024; Chest Single View d ated 10/17/2023; Chest Pa And Lat (2 Views) dated 08/19/2023 TECHNIQUE: Portable AP view of the chest. FINDINGS: The lungs are clear. No pneumothorax or effusion. The cardiomediastinal contours are unre markable. IMPRESSION: No acute cardiopulmonary process.
[2024-05-25 20:47] LABS: Absolute Eosinophils 0.1 K/uL (0-0.5); Absolute Lymphocytes (CBC) 3.2 K/uL (0.7-4.9); Absolute Monocytes 0.5 K/uL (0.1-1.3); Absolute Neutrophil 3.4 K/uL (1.8-8.0); Basophils % 0.5 % (0-1.3); Eosinophils % 1.5 % (0-4.4); Hematocrit 34.5 % (36.0-45.0); Hemoglobin 11.1 g/dL (12.0-15.0); Lymphocytes % 44.5 % (15.3-44.8); MCHC 32.2 g/dL (32.0-36.0); MCV 77.9 fL (80-100); MPV 8.6 fL (7.6-11.3); Monocytes % 6.8 % (3.3-12.3); Neutrophils % 46.7 % (41.7-73.7); Platelets 360 thou/uL (152-406); RBC Red Blood Cell Count 4.43 M/uL (3.86-4.86); Red Cell Distribution Width 15.5 % (12.1-15.2)
[2024-05-25 20:57] LABS: SARS-CoV-2 Antigen CONTROL BLUE LINE VIS/BG OK; SARS-CoV-2 Antigen Rapid Res Negative (Negative)
[2024-05-25 21:02] LABS: PT Prothrombin Time 11.4 SECONDS (9.4-12.5); Protime INR 1.02
[2024-05-25 21:24] LABS: ALT/SGPT 26 U/L (13-56); AST/SGOT 18 U/L (15-37); Albumin 3.5 g/dL (3.4-5.0); Albumin/Globulin Ratio 0.7 (1.1-1.8); Anion Gap 8.7 mEq/L (5.0-15.0); BUN Blood Urea Nitrogen 14 mg/dL (7-18); Bicarbonate 26 mEq/L (21-32); Globulin 5.1 g/dL (2.3-3.5); Glomerular Filtration Rate 73 ml/min (=/>90); Glucose Level 92 mg/dL (74-106); Magnesium 1.7 mg/dL (1.6-2.4); Potassium 3.7 mEq/L (3.5-5.1); Protein, Total 8.6 g/dL (6.4-8.2); Sodium Level 139 mEq/L (136-145)
[2024-05-25 21:27] LABS: NT PRO-BNP 76 pg/mL (<125); Troponin High Sensitivity 3.7 pg/mL (<58.9)
[2024-05-25 21:28] LABS: Bilirubin Direct < 0.2 mg/dL (0-0.2)
[2024-05-25 21:35] LABS: Bilirubin Indirect, Calculated 0.1 mg/dL (0.2-0.8); Bilirubin Total 0.3 mg/dL (0.2-1.0)
[2024-05-25 21:50] LABS: Alkaline Phosphatase 71 U/L (45-117)
[2024-05-25] MEDS ORDERED: NA CHLORIDE 0.9% 1,000 ML ONE (21:50)
--- NOTE | 2024-05-25 22:55 | RAD REPORT ---
EXAM DESCRIPTION: CT - Chest Abdomen Pelvis W Cont - 05/25/2024 10:21 pm CLINICAL HISTORY: abdominal pain;Chest pain COMPARISON: Abdomen Pelvis W Contrast dated 04/19/2024; Chest For Pe Angio dated 08/13/2023 TECHNIQUE: Thin axial CT images of the chest, abdomen, and pelvis, performed following intravenous a dministration of iodinated contrast. Multiplanar reformats were generated and reviewed. All CT scans are performed using dose optimization technique as appropriate and may include automated exposure control or mA/KV adjustment according to patient size. FINDINGS: Left lower lobe 4 mm nodule. The lungs are otherwise clear.No pleural or pericardial effus ion.No intrathoracic adenopathy. The liver, spleen, pancreas, adrenal glands and kidneys are within normal limits. No bowel obstruction, free air, free fluid or abscess. Status post cholecystectomy and partial proxim al colectomy. No pathologic lymphadenopathy in the abdomen or pelvis. No worrisome osseous finding. IMPRESSION: No acute findings in the chest, abdomen, and pelvis.
[2024-05-25] MEDS ORDERED: DICYCLOMINE HCL 20 MG/2 ML AMP IM ONE (23:44)
[2024-05-25] MEDS ORDERED: SIMETHICONE 80 MG CHEWABLE TAB ONE (23:44)
--- NOTE | 2024-05-25 23:49 | ER ---
Nurse's Notes [facility] Name: Dori Guardado Age: 49 yrs Sex: Female : 1975 Arrival Date: 05/25/2024 Time: 19:02 Bed 6 Private MD: Diagnosis: Chest pain, unspecified;Abdominal pain, Generalized;Atypical chest pain Presentation: 05/25 19:24 Chief complaint: Patient states: she has been having pain between her shoulder blades ap3 and into her neck that started yesterday 05/24/24. patient currently rates her pain as an 8/10 on the pain scale and states it is a burning sensation. Coronavirus screen: At this time, the client does not indicate any symptoms associated with coronavirus-19. Ebola Screen: No symptoms or risks identified at this time. Initial Sepsis Screen: Does the patient meet any 2 criteria? No. Patient's initial sepsis screen is negative. Does the patient have a suspected source of infection? No. Patient's initial sepsis screen is negative. Risk Assessment: Do you want to hurt yourself or someone else? Patient reports no desire to harm self or others. Onset of symptoms was May 24, 2024. 19:24 Method Of Arrival: Ambulatory ap3 19:24 Acuity: KASH 2 ap3 Triage Assessment: 19:26 General: Appears in no apparent distress. Behavior is calm, cooperative, appropriate ap3 for age. Pain: Complains of pain in thoracic area Pain currently is 8 out of 10 on a pain scale. Quality of pain is described as burning, Pain began 1 day ago. Neuro: Level of Consciousness is awake, alert, obeys commands, Oriented to person, place, time, situation, Appropriate for age. Cardiovascular: Patient's skin is warm and dry. Respiratory: Reports shortness of breath cough that is Onset: The symptoms/episode began/occurred yesterday. 05/26 00:07 Respiratory: the patient has mild shortness of breath. 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 - Infectious Disease History:: Denies. - Social history:: Smoking status: Patient denies any tobacco usage or history of. - Family history:: not pertinent. Screenin:27 Abuse screen: Denies threats or abuse. Nutritional screening: No deficits noted. ap3 Tuberculosis screening: No symptoms or risk factors identified. 19:55 [facility] ED Fall Risk Assessment (Adult) History of falling in the last 3 months, cp4 including since admission No falls in past 3 months (0 pts) Confusion or Disorientation No (0 pts) Intoxicated or Sedated No (0 pts) Impaired Gait No (0 pts) Mobility Assist Device Used No (0 pt) Altered Elimination No (0 pt) Score/Fall Risk Level 0 - 2 = Low Risk Oriented to surroundings, Maintained a safe environment, Assessed \T\ reinforced patient's understanding of fall precautions, Hourly rounding (assess needs \T\ fall precautionary measures) done. Assessment: 19:27 Respiratory: Airway is patent Respiratory effort is even, unlabored. ap3 19:55 General: Appears uncomfortable, Behavior is calm, cooperative, appropriate for age. cp4 Pain: Complains of pain in back and thoracic area Pain currently is 9 out of 10 on a pain scale. Neuro: Level of Consciousness is awake, alert, obeys commands, Oriented to person, place, time, situation. Cardiovascular: Rhythm is regular. Respiratory: Airway is patent Respiratory effort is even, unlabored, Breath sounds are clear bilaterally. GI: No signs and/or symptoms were reported involving the gastrointestinal system. : No signs and/or symptoms were reported regarding the genitourinary system. EENT: No signs and/or symptoms were reported regarding the EENT system. Derm: No signs and/or symptoms reported regarding the dermatologic system. Musculoskeletal: No signs and/or symptoms reported regarding the musculoskeletal system. 21:00 Reassessment: Patient appears in no apparent distress at this time. Patient and/or cp4 family updated on plan of care and expected duration. Pain level reassessed. Patient is alert, oriented x 3, equal unlabored respirations, skin warm/dry/pink. 22:00 Reassessment: Patient appears in no apparent distress at this time. Patient and/or cp4 family updated on plan of care and expected duration. Pain level reassessed. Patient is alert, oriented x 3, equal unlabored respirations, skin warm/dry/pink. 23:00 Reassessment: Patient appears in no apparent distress at this time. Patient and/or cp4 family updated on plan of care and expected duration. Pain level reassessed. Patient is alert, oriented x 3, equal unlabored respirations, skin warm/dry/pink. 23:00 Reassessment: Disposition pending. Patient on shot time. cp4 Vital Signs: 19:24 BP 155 / 103; Pulse 78; Resp 17; Temp 98.6; Pulse Ox 100% ; Weight 123.83 kg; Height 5 ap3 ft. 3 in. ; Pain 8/10; 20:27 BP 138 / 90; Pulse 70; Resp 18; Pulse Ox 100% ; cp4 21:22 BP 122 / 85; Pulse 76; Resp 18; Pulse Ox 96% ; cp4 22:45 BP 125 / 68; Pulse 74; Resp 18; Pulse Ox 96% ; cp4 05/26 00:05 BP 110 / 76; Pulse 73; Resp 18; Pulse Ox 99% ; cp4 05/25 19:24 Body Mass Index 48.36 (123.83 kg, 160.02 cm) ap3 05/25 19:24 Pain Scale: Adult ap3 [place] Coma Score: 01:38 Eye Response: spontaneous(4). Motor Response: obeys commands(6). Verbal Response: sp4 oriented(5). Total: 15. ED Course: 05/25 19:08 Patient arrived in ED. im 19:10 Jose Luis Parikh MD is Attending Physician. sp4 19:21 Soraya Oliver is Primary Nurse. cp4 19:26 Triage completed. ap3 19:27 Arm band placed on right wrist. ap3 19:52 Basic Metabolic Panel Sent. cp4 19:52 CBC with Diff Sent. cp4 19:52 LFT's Sent. cp4 19:52 Magnesium Sent. cp4 19:52 NT PRO-BNP Sent. cp4 19:52 PT-INR Sent. cp4 19:52 Troponin HS Sent. cp4 19:52 Accessed peripheral vein via ultrasound, utilizing dynamic ultrasound technique Blood vc1 collected. using per hospital protocol. Clean \T\ dry. Dressing intact. Good blood return. Flushes easily. 20 G right forearm, flushed. 19:55 Placed in gown. Bed in low position. Side rails up X2. cp4 19:55 No provider procedures requiring assistance completed. cp4 20:07 XRAY Chest (1 view) In Process Unspecified. EDMS 21:45 Troponin High Sensitivity Sent. cp4 22:22 CT Chest, Abdomen, Pelvis - W/Contrast In Process Unspecified. EDMS 05/26 00:06 Provided Education on: nonspecific chest pain. cp4 00:06 intact, bleeding controlled, No redness/swelling at site. Pressure dressing applied. cp4 Administered Medications: 05/25 20:26 Drug: Ketorolac IVP 30 mg IVP once Route: IVP; Site: right antecubital; cp4 20:45 Follow up: Response: No adverse reaction cp4 20:50 Not Given (Patient Refused): hydrocodone-acetaminophen5 mg-325 mg 2 tabs PO once cp4 21:46 Drug: NS 0.9% IV 1000 ml IV at 1 bolus Per protocol; 1000 mL bolus Route: IV; Rate: 1 cp4 bolus; Site: right antecubital; 23:00 Follow up: Response: No adverse reaction; IV Status: Infusion continued cp4 23:49 Drug: Dicyclomine IM 20 mg IM once Route: IM; Site: Ventrogluteal RIGHT; cp4 05/26 00:05 Follow up: Response: No adverse reaction cp4 05/25 23:49 Drug: Simethicone PO 120 mg PO once Route: PO; cp4 05/26 00:04 Follow up: Response: No adverse reaction cp4 Medication: 05/25 19:55 VIS not applicable for this client. cp4 Outcome: 23:48 Discharge ordered by . sp4 05/26 00:06 Discharged to home ambulatory, cp4 Condition: stable Discharge instructions given to patient, Instructed on discharge instructions, follow up and referral plans. medication usage, Demonstrated understanding of instructions, follow-up care, medications, Prescriptions given X 3, 00:07 Patient left the ED. cp4 Signatures: Dispatcher [employer] EDMS Madelin Montoya RN RN ap3 Cathy Thompson RN RN vc1 Jose Luis Parikh MD MD sp4 Lakia Jin Christina cp4
--- NOTE | 2024-05-25 23:49 | EDPHYS ---
Physician Documentation [facility] Name: Dori Guardado Age: 49 yrs Sex: Female : 1975 Arrival Date: 05/25/2024 Time: 19:02 Bed 6 Private MD: ED Physician Jose Luis Parikh HPI: 05/25 22:11 This 49 yrs old Black Female presents to ER via Ambulatory with complaints of Breathing sp4 Difficulty, Back Pain - Upper, Fever, Cough. 05/26 01:38 49-year-old female with history of atrial fibrillation, bowel obstruction, Crohn's sp4 disease, DVT hypertension on p.o. Eliquis daily presents with acute onset chest pain with radiation to posterior thoracic spine also abdominal pain. 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 - Infectious Disease History:: Denies. - Social history:: Smoking status: Patient denies any tobacco usage or history of. - Family history:: not pertinent. ROS: 05/26 01:38 Constitutional: Negative for fever, chills, and weight loss, positive chest pain, sp4 positive abdominal pain All other systems are negative, Exam: 01:38 Constitutional: This is a well developed, well nourished patient who is awake, alert, sp4 and in no acute distress. Head/Face: Normocephalic, atraumatic. Eyes: Pupils equal round and reactive to light, extra-ocular motions intact. Lids and lashes normal. Conjunctiva and sclera are not injected. Cornea within normal limits. Periorbital areas with no swelling, redness, or edema. ENT: Nares patent. No nasal discharge, no septal abnormalities noted. Tympanic membranes are normal and external auditory canals are clear. Oropharynx with no redness, swelling, or masses, exudates, or evidence of obstruction, uvula midline. Mucous membranes moist. Neck: Trachea midline, no thyromegaly or masses palpated, and no cervical lymphadenopathy. Supple, full range of motion without nuchal rigidity, or vertebral point tenderness. Chest/axilla: Normal chest wall appearance and motion. Nontender with no deformity. No lesions are appreciated. Cardiovascular: Regular rate and rhythm with a normal S1 and S2. No gallops, murmurs, or rubs. Normal PMI, no JVD. No pulse deficits. Respiratory: Lungs have equal breath sounds bilaterally, clear to auscultation and percussion. No rales, rhonchi or wheezes noted. No increased work of breathing, no retractions or nasal flaring. Abdomen/GI: Soft, with normal bowel sounds. No distension or tympany. No guarding or rebound. No evidence of tenderness throughout. Back: No spinal tenderness. No costovertebral tenderness. Skin: Warm, dry with normal turgor. Normal color with no rashes, no lesions, and no evidence of cellulitis. MS/ Extremity: Pulses equal, no cyanosis. Neurovascular intact. Full, normal range of motion. Neuro: Awake and alert, GCS 15, oriented to person, place, time, and situation. Cranial nerves II-XII grossly intact. Motor strength 5/5 in all extremities. Sensory grossly intact. Psych: Awake, alert, with orientation to person, place and time. Behavior, mood, and affect are within normal limits 01:38 ECG was reviewed by the Attending Physician. EKG at 1929 EKG reveals normal sinus sp4 rhythm at rate of 73 otherwise normal Vital Signs: 05/25 19:24 BP 155 / 103; Pulse 78; Resp 17; Temp 98.6; Pulse Ox 100% ; Weight 123.83 kg; Height 5 ap3 ft. 3 in. ; Pain 8/10; 20:27 BP 138 / 90; Pulse 70; Resp 18; Pulse Ox 100% ; cp4 21:22 BP 122 / 85; Pulse 76; Resp 18; Pulse Ox 96% ; cp4 22:45 BP 125 / 68; Pulse 74; Resp 18; Pulse Ox 96% ; cp4 05/26 00:05 BP 110 / 76; Pulse 73; Resp 18; Pulse Ox 99% ; cp4 05/25 19:24 Body Mass Index 48.36 (123.83 kg, 160.02 cm) ap3 05/25 19:24 Pain Scale: Adult ap3 [place] Coma Score: 01:38 Eye Response: spontaneous(4). Motor Response: obeys commands(6). Verbal Response: sp4 oriented(5). Total: 15. MDM: 05/25 19:12 Patient medically screened. sp4 23:41 ED course: EXAM DESCRIPTION: CT - Chest Abdomen Pelvis W Cont - 05/25/2024 10:21 pm sp4 CLINICAL HISTORY: abdominal pain;Chest pain COMPARISON: Abdomen Pelvis W Contrast dated 04/19/2024; Chest For Pe Angio dated 08/13/2023 TECHNIQUE: Thin axial CT images of the chest, abdomen, and pelvis, performed following intravenous administration of iodinated contrast. Multiplanar reformats were generated and reviewed. All CT scans are performed using dose optimization technique as appropriate and may include automated exposure control or mA/KV adjustment according to patient size. FINDINGS: Left lower lobe 4 mm nodule. The lungs are otherwise clear.No pleural or pericardial effusion.No intrathoracic adenopathy. The liver, spleen, pancreas, adrenal glands and kidneys are within normal limits. No bowel obstruction, free air, free fluid or abscess. Status post cholecystectomy and partial proximal colectomy. No pathologic lymphadenopathy in the abdomen or pelvis. No worrisome osseous finding. IMPRESSION: No acute findings in the chest, abdomen, and pelvis.. ED course: EXAM DESCRIPTION: RADChest Single View05/25/2024 8:06 pm CLINICAL HISTORY: CHEST PAIN COMPARISON: Chest Single View dated 02/27/2024; Chest Single View dated 01/06/2024; Chest Single View dated 10/17/2023; Chest Pa And Lat (2 Views) dated 08/19/2023 TECHNIQUE: Portable AP view of the chest. FINDINGS: The lungs are clear. No pneumothorax or effusion. The cardiomediastinal contours are unremarkable. IMPRESSION: No acute cardiopulmonary process. . 05/26 01:45 Differential diagnosis: pneumonia, Pneumothorax Psychogenic pulmonary edema, reactive sp4 airway disease. Data reviewed: vital signs, nurses notes, old medical records, lab test result(s), EKG, radiologic studies, CT scan, plain films. ED course: Patient has improved and is stable for discharge home.. 05/25 19:10 Order name: Basic Metabolic Panel; Complete Time: 23:38 sp4 05/25 19:10 Order name: CBC with Diff; Complete Time: 21:33 sp4 05/25 19:10 Order name: LFT's; Complete Time: 23:38 4 05/25 19:10 Order name: Magnesium; Complete Time: 23:38 4 05/25 19:10 Order name: NT PRO-BNP; Complete Time: 23:38 4 05/25 19:10 Order name: PT-INR; Complete Time: 21:33 4 05/25 19:10 Order name: Troponin HS; Complete Time: 23:38 05/25 19:10 Order name: SARS RAPID; Complete Time: 21:33 4 05/25 21:36 Order name: Troponin High Sensitivity; Complete Time: 23:38 4 05/25 19:10 Order name: XRAY Chest (1 view); Complete Time: :33 05/25 21:43 Order name: CT Chest, Abdomen, Pelvis - W/Contrast; Complete Time: 23:38 05/25 19:10 Order name: Cardiac monitoring; Complete Time: 19:31 05/25 19:10 Order name: EKG - Nurse/Tech; Complete Time: :05/25 19:10 Order name: IV Saline Lock; Complete Time: 19:52 05/25 19:10 Order name: Labs collected and sent; Complete Time: 19:52 05/25 19:10 Order name: O2 Per Protocol; Complete Time: :05/25 19:10 Order name: O2 Sat Monitoring; Complete Time: :31 sp4 EC:38 Rate is 73 beats/min. Rhythm is regular, Normal Sinus Rhythm. QRS [place] is Normal. [place] sp4 interval is normal. QRS interval is normal. QT interval is normal. No Q waves. No ST changes noted. Clinical impression: Normal ECG. Interpreted by me. Reviewed by me. Administered Medications: 05/25 20:26 Drug: Ketorolac IVP 30 mg IVP once Route: IVP; Site: right antecubital; cp4 20:45 Follow up: Response: No adverse reaction cp4 20:50 Not Given (Patient Refused): hydrocodone-acetaminophen5 mg-325 mg 2 tabs PO once cp4 21:46 Drug: NS 0.9% IV 1000 ml IV at 1 bolus Per protocol; 1000 mL bolus Route: IV; Rate: 1 cp4 bolus; Site: right antecubital; 23:00 Follow up: Response: No adverse reaction; IV Status: Infusion continued cp4 23:49 Drug: Dicyclomine IM 20 mg IM once Route: IM; Site: Ventrogluteal RIGHT; cp4 05/26 00:05 Follow up: Response: No adverse reaction cp4 05/25 23:49 Drug: Simethicone PO 120 mg PO once Route: PO; cp4 05/26 00:04 Follow up: Response: No adverse reaction cp4 Disposition Summary: 05/25/24 23:48 Discharge Ordered Notes: Location: Home sp4 Problem: new sp4 Symptoms: have improved sp4 Condition: Stable sp4 Diagnosis - Chest pain, unspecified sp4 - Abdominal pain, Generalized sp4 - Atypical chest pain sp4 Followup: sp4 - With: Private Physician - When: 7 - 10 days - Reason: Recheck today's complaints Discharge Instructions: - Discharge Summary Sheet sp4 - Nonspecific Chest Pain, Adult, [id number] sp4 Forms: - Patient Portal Instructions sp4 Prescriptions: - ketorolac 10 mg Oral tablet - take 1 tablet ORAL route every 8 hours for 5 days PRN pain; 30 tablet; Refills: sp4 0, Product Selection Permitted - simethicone 180 mg Oral capsule - take 1 capsule ORAL route every 8 hours PRN abdominal pain; 30 capsule; sp4 Refills: 0, Product Selection Permitted - dicyclomine 20 mg Oral tablet - take 2 tablets ORAL route 3 times per day PRN spasmodic abdominal pain; 30 sp4 tablet; Refills: 0, Product Selection Permitted Signatures: Dispatcher [employer] EDMS Madelin Montoya RN RN ap3 Jose Luis Parikh MD MD sp4 Soraya Oliver cp4 Corrections: (The following items were deleted from the chart) 05/25 19:11 19:11 Chest Single View+RAD.RAD.BRZ ordered. EDMS EDMS 19:11 19:11 SARS-COV-2 Antigen Rapid+I.LAB.BRZ ordered. EDMS EDMS 22:13 21:36 Chest For PE Angio+CT.RAD.BRZ ordered. EDMS EDMS
[2024-05-26 00:14] VITALS: TEMP 98.6
[2024-05-26 00:18] VITALS: BP 110/76; O2SAT 99
--- NOTE | 2024-05-28 12:45 | EKG ---
Test Date: 2024-05-25 Test Time: 19:29:36 Senior Genetic Counselor: ALYSSA MEASUREMENT RESULTS: Intervals: Rate: 73 VA: 134 QRSD: 80 QT: 378 QTc: 416 [place]: P: 42 VA: 134 QRS: 3 T: 21 INTERPRETIVE STATEMENTS: Normal sinus rhythm Normal ECG Compared to ECG 04/19/2024 22:14:15 No significant changes Electronically Signed On 05-28-24 12:40:58 CDT by Jeff Dasilva
== END 2024-05-26 00:07 | disposition home or self-care (01) ==
LOC: ER 19:02
DX: R07.89 Other chest pain (principal); R10.84 Generalized abdominal pain; I10 Essential (primary) hypertension; Z86.718 Personal history of other venous thrombosis and embolism; Z79.01 Long term (current) use of anticoagulants; I48.91 Unspecified atrial fibrillation; Z11.52 Encounter for screening for COVID-19
CPT/HCPCS: 96361; 93005; 85025; 80048; 36415; 83735; 85610; 80076; 84484 ×2; 83880; 71260; 74177; 71045; 96372; 96374; 99285; 87811; Q9967; J0500; J7030

== ENCOUNTER 2024-08-06 06:49 | Emergency (ER) | payer OTHER ==
--- NOTE | 2024-08-06 07:54 | RAD REPORT ---
EXAM: Chest Single View HISTORY: afib COMPARISON: 05/25/2024 FINDINGS: LUNGS/PLEURA: The lungs are clear. No pleural effusions or pneumothorax. No pulmonary edema. MEDIASTINUM: The mediastinal silhouette is within normal limits. CARDIAC: Similar size and configuration UPPER ABDOMEN: No significant abnormality. BONES: No acute fracture. LINES/TUBES/OTHER: N/A IMPRESSION: No evidence of acute cardiopulmonary disease
[2024-08-06 08:19] LABS: Absolute Basophils 0.1 K/uL (0-0.5); Absolute Eosinophils 0.1 K/uL (0-0.5); Absolute Lymphocytes (CBC) 2.6 K/uL (0.7-4.9); Absolute Monocytes 0.5 K/uL (0.1-1.3); Absolute Neutrophil 2.1 K/uL (1.8-8.0); Basophils % 1.1 % (0-1.3); Eosinophils % 1.5 % (0-4.4); Hematocrit 39.2 % (36.0-45.0); Hemoglobin 12.2 g/dL (12.0-15.0); Lymphocytes % 48.7 % (15.3-44.8); MCH 24.5 pg (27.0-35.0); MCHC 31.2 g/dL (32.0-36.0); MCV 78.5 fL (80-100); MPV 8.4 fL (7.6-11.3); Monocytes % 8.7 % (3.3-12.3); Platelets 379 thou/uL (152-406); RBC Red Blood Cell Count 4.99 M/uL (3.86-4.86); Red Cell Distribution Width 15.7 % (12.1-15.2)
[2024-08-06 08:43] LABS: ALT/SGPT 33 U/L (13-56); AST/SGOT 25 U/L (15-37); Albumin 3.1 g/dL (3.4-5.0); Albumin/Globulin Ratio 0.6 (1.1-1.8); Alkaline Phosphatase 74 U/L (45-117); BUN Blood Urea Nitrogen 9 mg/dL (7-18); Bicarbonate 25 mEq/L (21-32); Bilirubin Total 0.4 mg/dL (0.2-1.0); Glomerular Filtration Rate 99 ml/min (=/>90); Glucose Level 102 mg/dL (74-106); Magnesium 1.8 mg/dL (1.6-2.4); Protein, Total 8.1 g/dL (6.4-8.2); Sodium Level 140 mEq/L (136-145); Troponin High Sensitivity 6.8 pg/mL (<58.9)
[2024-08-06 08:44] LABS: Bilirubin Direct < 0.2 mg/dL (0-0.2); Bilirubin Indirect, Calculated 0.2 mg/dL (0.2-0.8)
--- NOTE | 2024-08-06 08:49 | EKG ---
Test Date: 2024-08-06 Test Time: 06:57:22 Motor Rebuilder: RV MEASUREMENT RESULTS: Intervals: Rate: 83 NC: QRSD: 78 QT: 350 QTc: 411 [place]: P: NC: QRS: -2 T: 9 INTERPRETIVE STATEMENTS: Atrial fibrillation Anterior infarct, age undetermined Abnormal ECG Compared to ECG 05/25/2024 19:29:36 Myocardial infarct finding now present Sinus rhythm no longer present Electronically Signed On 08-06-24 08:49:14 DIAMOND ASSORTER by Jeff Dasilva
--- NOTE | 2024-08-06 09:03 | EDPHYS ---
Physician Documentation [facility] Name: Dori Guardado Age: 49 yrs Sex: Female : 1975 Arrival Date: 08/06/2024 Time: 06:49 Bed 4 Private MD: ED Physician Edilson Terry HPI: 08/06 07:11 This 49 yrs old Black Female presents to ER via Ambulatory with complaints of Irregular ec2 Pulse. 07:11 Patient with history of atrial fibrillation arrives today for evaluation of ec2 palpitations. Reports that she woke up this morning with palpitations. States that she takes sotalol as well as Eliquis, did not take her sotalol dose last night. Otherwise no new complaints. 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 Flu vaccine is up to date. - Infectious Disease History:: Denies. - Social history:: Smoking status: Patient denies any tobacco usage or history of. ROS: 07:11 Constitutional: as per hpi ec2 Exam: 07:11 Constitutional: GEN: NAD Head: atraumatic Eyes: EOMI Ears: External ears are ec2 normal. CV: regular rate LUNGS: no respiratory distress ABD: non-distended SKIN: no evidence of rashes MSK: no evidence of trauma Vital Signs: 07:03 BP 148 / 105; Pulse 85; Resp 20; Pulse Ox 100% ; Weight 122.47 kg; Height 5 ft. 3 in. ; vc1 Pain 0/10; 08:48 BP 148 / 116; Pulse 78; Resp 18; Pulse Ox 100% ; bp 09:26 BP 136 / 100; Pulse 67; Resp 16; Temp 97.7(O); Pulse Ox 100% on R/A; db 07:03 Body Mass Index 47.83 (122.47 kg, 160.02 cm) vc1 07:03 Pain Scale: Adult vc1 MDM: 07:08 Medical Screening Exam initiated ec2 07:08 ED course: EKG independently reviewed and interpreted by me, shows atrial fibrillation, ec2 rate of 83, no acute ST segment elevation, intervals are nonactionable.. 07:11 Data reviewed: vital signs. ED course: Patient arrives today for evaluation of ec2 palpitations. Examination remarkable for well-appearing nontoxic individuals otherwise in no acute distress with a reassuring examination. Will obtain lab work, chest x-ray. Differential includes electrolyte disturbances, A-fib with RVR, anemia, ACS. 09:02 ED course: CBC, metabolic profile, LFTs and magnesium and troponin are nonactionable. ec2 On reassessment patient remains well-appearing no acute distress will discharge home. Return precautions given.. 08/06 06:56 Order name: Basic Metabolic Panel; Complete Time: 09:02 rt 08/06 06:56 Order name: CBC with Diff rt 08/06 06:56 Order name: LFT's; Complete Time: 09:02 rt 08/06 06:56 Order name: Magnesium; Complete Time: 09:02 rt 08/06 06:56 Order name: Troponin HS; Complete Time: 09:02 rt 08/06 06:56 Order name: XRAY Chest (1 view); Complete Time: 07:56 rt 08/06 06:56 Order name: EKG; Complete Time: 06:57 rt 08/06 06:56 Order name: Cardiac monitoring; Complete Time: 07:09 rt 08/06 06:56 Order name: EKG - Nurse/Tech; Complete Time: 07:09 rt 08/06 06:56 Order name: IV Saline Lock; Complete Time: 08:08 rt 08/06 06:56 Order name: Labs collected and sent; Complete Time: 08:08 rt 08/06 06:56 Order name: O2 Per Protocol; Complete Time: 07:10 rt 08/06 06:56 Order name: O2 Sat Monitoring; Complete Time: 07:09 rt Administered Medications: No medications were administered Disposition Summary: 08/06/24 09:02 Discharge Ordered Condition: Stable ec2 Diagnosis - Typical atrial flutter ec2 Followup: ec2 - With: Private Physician - When: - Reason: Re-evaluation by your physician Discharge Instructions: - Discharge Summary Sheet ec2 - Atrial Fibrillation, [id number] ec2 Forms: - Medication Reconciliation Form ec2 - Antibiotic Education ec2 - Prescription Opioid Use ec2 - Patient Portal Instructions ec2 - Leadership Thank You Letter ec2 Signatures: Dispatcher [employer] Cathy Espana RN RN vc1 Servando Mata MD MD rt Edilson Terry MD MD ec2
--- NOTE | 2024-08-06 09:03 | ER ---
Nurse's Notes [facility] Name: Dori Guardado Age: 49 yrs Sex: Female : 1975 Arrival Date: 08/06/2024 Time: 06:49 Bed 4 Private MD: Diagnosis: Typical atrial flutter Presentation: 08/06 07:03 Chief complaint: Patient states: "I'm in afib". Coronavirus screen: Client denies vc1 travel out of the [place] in the last 14 days. At this time, the client does not indicate any symptoms associated with coronavirus-19. Ebola Screen: Patient negative for fever greater than or equal to 101.5 degrees Fahrenheit, and additional compatible Ebola Virus Disease symptoms Patient denies exposure to infectious person. Patient denies travel to an Ebola-affected area in the 21 days before illness onset. No symptoms or risks identified at this time. Initial Sepsis Screen: Does the patient meet any 2 criteria? No. Patient's initial sepsis screen is negative. Does the patient have a suspected source of infection? No. Patient's initial sepsis screen is negative. Risk Assessment: Do you want to hurt yourself or someone else? Patient reports no desire to harm self or others. Onset of symptoms was August 06, 2024. 07:03 Method Of Arrival: Ambulatory vc1 07:03 Acuity: KASH 3 vc1 Triage Assessment: 07:06 General: Appears in no apparent distress. obese, well groomed, well developed, well vc1 nourished, Behavior is cooperative, anxious. Pain: Denies pain. EENT: No deficits noted. No signs and/or symptoms were reported regarding the EENT system. Neuro: Level of Consciousness is awake, alert, obeys commands, Oriented to person, place, time, situation, Appropriate for age. Cardiovascular: Denies chest pain, Patient's skin is warm and dry. Rhythm is atrial fibrillation. Respiratory: Airway is patent Respiratory effort is even, unlabored, Respiratory pattern is regular, symmetrical. GI: No deficits noted. No signs and/or symptoms were reported involving the gastrointestinal system. : No deficits noted. No signs and/or symptoms were reported regarding the genitourinary system. Derm: Skin is intact, is healthy with good turgor, Skin is dry, Skin is normal, Skin temperature is warm. Musculoskeletal: Circulation, motion, and sensation intact. Range of motion: intact in all extremities. 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 Flu vaccine is up to date. - Infectious Disease History:: Denies. - Social history:: Smoking status: Patient denies any tobacco usage or history of. Screenin:05 Abuse screen: Denies threats or abuse. Nutritional screening: No deficits noted. vc1 Tuberculosis screening: No symptoms or risk factors identified. 07:06 [facility] ED Fall Risk Assessment (Adult) History of falling in the last 3 months, bp including since admission No falls in past 3 months (0 pts) Confusion or Disorientation No (0 pts) Intoxicated or Sedated No (0 pts) Impaired Gait No (0 pts) Mobility Assist Device Used No (0 pt) Altered Elimination No (0 pt) Score/Fall Risk Level 0 - 2 = Low Risk. Assessment: 07:06 General: Appears in no apparent distress. obese, Behavior is calm, cooperative, bp appropriate for age. Pain: Denies pain. Pain: Pain does not radiate. Pain began gradually. Neuro: No deficits noted. Cardiovascular: Rhythm is atrial fibrillation. Respiratory: No deficits noted. GI: No signs and/or symptoms were reported involving the gastrointestinal system. : No signs and/or symptoms were reported regarding the genitourinary system. EENT: No deficits noted. Derm: No deficits noted. Musculoskeletal: No deficits noted. 08:50 Reassessment: Patient appears in no apparent distress at this time. Patient is alert, bp oriented x 3, equal unlabored respirations, skin warm/dry/pink. 09:27 Reassessment: Patient appears in no apparent distress at this time. Patient and/or db family updated on plan of care and expected duration. Pain level reassessed. Patient is alert, oriented x 3, equal unlabored respirations, skin warm/dry/pink. Patient states feeling better. Patient states symptoms have improved. Vital Signs: 07:03 BP 148 / 105; Pulse 85; Resp 20; Pulse Ox 100% ; Weight 122.47 kg; Height 5 ft. 3 in. ; vc1 Pain 0/10; 08:48 BP 148 / 116; Pulse 78; Resp 18; Pulse Ox 100% ; bp 09:26 BP 136 / 100; Pulse 67; Resp 16; Temp 97.7(O); Pulse Ox 100% on R/A; db 07:03 Body Mass Index 47.83 (122.47 kg, 160.02 cm) vc1 07:03 Pain Scale: Adult vc1 ED Course: 06:50 Patient arrived in ED. jj6 07:04 Triage completed. vc1 07:05 Arm band placed on right wrist. vc1 07:08 Edilson Terry MD is Attending Physician. ec2 07:08 Patient has correct armband on for positive identification. Placed in gown. Bed in low vc1 position. Call light in reach. Side rails up X2. Provided Education on: call light. monitoring engineer on. Pulse ox on. NIBP on. 07:09 Ryan Asher, RN is Primary Nurse. bm8 07:52 XRAY Chest (1 view) In Process Unspecified. EDMS 08:08 Initial lab(s) drawn, by me, sent to lab. EKG done, by ED staff, reviewed by Edilson Terry MD. Inserted saline lock: 18 gauge in right EJ, using aseptic technique. Blood collected. Flushed with 10 mL NS. 09:27 No provider procedures requiring assistance completed. IV discontinued, intact, db bleeding controlled, No redness/swelling at site. Patient maintains SpO2 saturation greater than 95% on room air. Administered Medications: No medications were administered Medication: 07:06 VIS not applicable for this client. bp Outcome: 09:02 Discharge ordered by . ec2 09:27 Discharged to home ambulatory, db 09:27 Condition: stable 09:27 Discharge instructions given to patient, family, Instructed on discharge instructions, follow up and referral plans. 09:29 Patient left the ED. db Signatures: Dispatcher [employer] Srinivas Gregory, RN RN Ngozi Bojorquez jj6 Cathy Thompson RN RN vc1 Susan Buchanan RN RN db Edilson Terry MD MD ec2 Ryan Asher RN RN bm8
[2024-08-06 09:33] VITALS: O2SAT 100
[2024-08-06 09:36] VITALS: BP 136/100; TEMP 97.7
[2024-08-06 09:44] LABS: Atypical Lymphocytes 19 %; Band Neutrophils 49 % (0-1); Blood Morphology Comment NOT SEEN (NOT SEEN); Differential Total Cells Count 100; Eosinophils 1 % (0-3); Lymphocytes 8 % (15-42); Monocytes 2 % (0-10); Platelet Estimate ADEQ; Segmented Neutrophils 25 % (40-80)
== END 2024-08-06 09:29 | disposition home or self-care (01) ==
LOC: ER 06:49
DX: I48.3 Typical atrial flutter (principal); I10 Essential (primary) hypertension; Z86.718 Personal history of other venous thrombosis and embolism; Z79.01 Long term (current) use of anticoagulants
CPT/HCPCS: 36415; 71045; 80048; 80076; 83735; 84484; 85025; 93005; 99284

== ENCOUNTER 2024-09-01 06:48 | Emergency (ER) | payer OTHER ==
--- NOTE | 2024-09-01 08:11 | RAD REPORT ---
EXAM: Right upper extremity venous ultrasound HISTORY: Right upper extremity pain and edema COMPARISON: None TECHNIQUE: Multiplanar grayscale and color Doppler images were obtained in a right upper extremity ve nous ultrasound. Spectral analysis of the Doppler waveforms were performed. FINDINGS: The internal jugular vein demonstrates normal compression and flow without evidence of thrombus. The subclavian vein demonstrates normal flow and augmentation without evidence of thrombus. The axillary and brachial veins demonstrate normal compression, flow, and augmentation without eviden ce of thrombus. The venous structures distal to the elbow are patent without thrombus. The cephalic and basilic veins are patent. IMPRESSION: No evidence of DVT in the right upper extremity.
--- NOTE | 2024-09-01 08:13 | ER ---
Nurse's Notes [facility] Name: Dori Guardado Age: 49 yrs Sex: Female : 1975 Arrival Date: 09/01/2024 Time: 06:48 Bed 13 Private MD: Diagnosis: Right arm swelling and ecchymoses Presentation: 09/01 07:05 Chief complaint: Patient states: Right arm pain and bruising that started last night, rs5 denies any recent injury to affected extremity. 07:05 Coronavirus screen: At this time, the client does not indicate any symptoms associated rs5 with coronavirus-19. Ebola Screen: No symptoms or risks identified at this time. Initial Sepsis Screen: Does the patient meet any 2 criteria? No. Patient's initial sepsis screen is negative. Does the patient have a suspected source of infection? No. Patient's initial sepsis screen is negative. Risk Assessment: Do you want to hurt yourself or someone else? Patient reports no desire to harm self or others. Onset of symptoms was August 31, 2024. 07:05 Method Of Arrival: Ambulatory rs5 07:05 Acuity: KASH 3 rs5 Historical: - Allergies: 07:12 No Known Allergies; rs5 - PMHx: 07:12 Atrial Fib; bowel obstruction; Crohn's; DVT; Hypertension; rs5 - PSHx: 07:12 ablation; Appendectomy; section; Cholecystectomy; partial hysterectomy; rs5 - Immunization history:: Adult Immunizations up to date. - Infectious Disease History:: Denies. - Social history:: Smoking status: Patient denies any tobacco usage or history of. Screenin:05 [facility] ED Fall Risk Assessment (Adult) History of falling in the last 3 months, rs5 including since admission No falls in past 3 months (0 pts) Confusion or Disorientation No (0 pts) Intoxicated or Sedated No (0 pts) Impaired Gait No (0 pts) Mobility Assist Device Used No (0 pt) Altered Elimination No (0 pt) Score/Fall Risk Level 0 - 2 = Low Risk Oriented to surroundings, Maintained a safe environment. Abuse screen: Denies threats or abuse. Nutritional screening: No deficits noted. Tuberculosis screening: No symptoms or risk factors identified. Assessment: 07:05 General: Appears in no apparent distress. uncomfortable, Behavior is calm, cooperative. rs5 Pain: Complains of pain in right arm Pain currently is 2 out of 10 on a pain scale. Quality of pain is described as aching, Is continuous. 07:05 Neuro: Level of Consciousness is awake, alert, obeys commands, Oriented to person, rs5 place, time, situation. Cardiovascular: Patient's skin is warm and dry. Respiratory: Airway is patent Respiratory effort is even, unlabored, Respiratory pattern is regular, symmetrical. GI: Abdomen is round non-distended, Abd is soft and non tender X 4 quads. : No signs and/or symptoms were reported regarding the genitourinary system. EENT: No signs and/or symptoms were reported regarding the EENT system. Derm: Skin is intact, Skin is pink, warm \T\ dry. Musculoskeletal: Range of motion: intact in all extremities. 08:19 Reassessment: Patient and/or family updated on plan of care and expected duration. Pain rs5 level reassessed. Patient is alert, oriented x 3, equal unlabored respirations, skin warm/dry/pink. Vital Signs: 07:05 BP 126 / 81; Pulse 77; Resp 17; Temp 98(O); Pulse Ox 99% on R/A; rs5 08:19 BP 122 / 77; Pulse 70; Resp 17; Pulse Ox 99% on R/A; rs5 ED Course: 06:51 Patient arrived in ED. gm2 07:01 Emerita Lynch MD is Attending Physician. sp3 07:04 Antonio Molina, LEONA is Primary Nurse. rs5 07:05 Patient has correct armband on for positive identification. Placed in gown. Bed in low rs5 position. Call light in reach. Side rails up X2. 07:05 No provider procedures requiring assistance completed. rs5 07:12 Triage completed. rs5 08:00 Patient did not have IV access during this emergency room visit. rs5 08:09 UPPER EXTREMITY VENOUS UNILATE In Process Unspecified. EDMS 08:20 Provided Education on: discharge instructions . rs5 Administered Medications: No medications were administered Medication: 08:20 VIS not applicable for this client. rs5 Outcome: 08:13 Discharge ordered by . sp3 08:20 Discharged to home ambulatory, rs5 08:20 Condition: stable 08:20 Discharge instructions given to patient, family, Instructed on discharge instructions, follow up and referral plans. Demonstrated understanding of instructions, follow-up care, 08:21 Patient left the ED. rs5 Signatures: Dispatcher [employer] Emerita Porras MD MD sp3 Antonio Molina RN RN rs5 Ashley Vargas 2
--- NOTE | 2024-09-01 08:13 | EDPHYS ---
Physician Documentation [facility] Name: Dori Guardado Age: 49 yrs Sex: Female : 1975 Arrival Date: 09/01/2024 Time: 06:48 Bed 13 Private MD: ED Physician Emerita Lynch HPI: 09/01 07:40 This 49 yrs old Black Female presents to ER via Ambulatory with complaints of Arm Pain. sp3 07:40 49-year-old female history of DVT, atrial fibrillation currently on Eliquis presents sp3 with right upper extremity swelling and bruising. No change in dosing noted. She denies any chest pain, shortness of breath, left-sided pain, abdominal pain, injury, bleeding anywhere else, or any other signs or symptoms on ROS at this time. Pain is predominantly in the elbow and distal upper arm. No pain in the shoulder or chest or upper back.. Historical: - Allergies: 07:12 No Known Allergies; rs5 - PMHx: 07:12 Atrial Fib; bowel obstruction; Crohn's; DVT; Hypertension; rs5 - PSHx: 07:12 ablation; Appendectomy; section; Cholecystectomy; partial hysterectomy; rs5 - Immunization history:: Adult Immunizations up to date. - Infectious Disease History:: Denies. - Social history:: Smoking status: Patient denies any tobacco usage or history of. ROS: 07:41 Constitutional: Negative for fever, chills, and weight loss, Eyes: Negative for injury, sp3 pain, redness, and discharge, ENT: Negative for injury, pain, and discharge, Neck: Negative for injury, pain, and swelling, Cardiovascular: Negative for chest pain, palpitations, and edema, Respiratory: Negative for shortness of breath, cough, wheezing, and pleuritic chest pain, Abdomen/GI: Negative for abdominal pain, nausea, vomiting, diarrhea, and constipation, Back: Negative for injury and pain, Skin: Negative for injury, rash, and discoloration, Neuro: Negative for headache, weakness, numbness, tingling, and seizure, Psych: Negative for depression, anxiety, suicide ideation, homicidal ideation, and hallucinations, Allergy/Immunology: Negative for hives, rash, and allergies, Endocrine: Negative for neck swelling, polydipsia, polyuria, polyphagia, and marked weight changes, Hematologic/Lymphatic: Negative for swollen nodes, abnormal bleeding, and unusual bruising, 07:41 All other systems are negative, Exam: 07:41 Constitutional: This is a well developed, well nourished patient who is awake, alert, sp3 and in no acute distress. Head/Face: Normocephalic, atraumatic. Eyes: Pupils equal round and reactive to light, extra-ocular motions intact. Lids and lashes normal. Conjunctiva and sclera are non-icteric and not injected. Cornea within normal limits. Periorbital areas with no swelling, redness, or edema. Neck: Trachea midline, no thyromegaly or masses palpated, and no cervical lymphadenopathy. Supple, full range of motion without nuchal rigidity, or vertebral point tenderness. No Meningismus. Chest/axilla: Normal chest wall appearance and motion. Nontender with no deformity. No lesions are appreciated. Cardiovascular: Regular rate and rhythm with a normal S1 and S2. No gallops, murmurs, or rubs. Normal PMI, no JVD. No pulse deficits. Respiratory: Lungs have equal breath sounds bilaterally, clear to auscultation and percussion. No rales, rhonchi or wheezes noted. No increased work of breathing, no retractions or nasal flaring. Abdomen/GI: Soft, non-tender, with normal bowel sounds. No distension or tympany. No guarding or rebound. No evidence of tenderness throughout. Back: No spinal tenderness. No costovertebral tenderness. Full range of motion. Skin: Warm, dry with normal turgor. Normal color with no rashes, no lesions, and no evidence of cellulitis. Neuro: Awake and alert, GCS 15, oriented to person, place, time, and situation. Cranial nerves II-XII grossly intact. Motor strength 5/5 in all extremities. Sensory grossly intact. Cerebellar exam normal. Normal gait. Psych: Awake, alert, with orientation to person, place and time. Behavior, mood, and affect are within normal limits. 07:41 Musculoskeletal/extremity: Very mild swelling in the right proximal forearm and distal upper arm. No elbow pain noted. Patient's body habitus makes exam more difficult. Very mild ecchymoses also noted. Distal neurovascular exam is normal. Shoulder exam is normal chest exam is normal.. Vital Signs: 07:05 BP 126 / 81; Pulse 77; Resp 17; Temp 98(O); Pulse Ox 99% on R/A; rs5 08:19 BP 122 / 77; Pulse 70; Resp 17; Pulse Ox 99% on R/A; rs5 MDM: 07:07 Medical Screening Exam initiated sp3 07:42 Data reviewed: vital signs, nurses notes, old medical records, radiologic studies. ED sp3 course: 49-year-old female with PMH above now with right arm swelling. Differential diagnosis includes unknown trauma, bruising from Eliquis, and to lesser degree DVT. Will obtain right upper extremity ultrasound to assess for DVT and if negative safely discharge patient home. Vital signs are normal.. 08:12 ED course: Ultrasound negative for DVT. Will safely discharge patient home at this sp3 time.. 09/01 07:27 Order name: UPPER EXTREMITY VENOUS UNILATE; Complete Time: 08:12 EDMS Administered Medications: No medications were administered Disposition Summary: 09/01/24 08:13 Discharge Ordered Notes: Location: Home sp3 Condition: Stable sp3 Diagnosis - Right arm swelling and ecchymoses sp3 Followup: sp3 - With: Private Physician - When: Upon discharge from the Emergency Department - Reason: Continuance of care Discharge Instructions: - Discharge Summary Sheet sp3 - Bleeding Precautions When on Anticoagulant Therapy, Adult sp3 Forms: - Medication Reconciliation Form sp3 - Antibiotic Education sp3 - Prescription Opioid Use sp3 - Patient Portal Instructions sp3 - Leadership Thank You Letter sp3 Signatures: Dispatcher [employer] EDEmerita Eng MD MD sp3 Antonio Molina RN RN rs5 Corrections: (The following items were deleted from the chart) 07:20 07:14 Extremity Venous Uni [email or web address] ordered. EDMS EDMS 07:25 07:20 UPPER EXTREMITY VENOUS UNILATE ordered. EDMS EDMS
[2024-09-01 12:21] VITALS: TEMP 98; O2SAT 99
[2024-09-01 12:22] VITALS: BP 122/77
== END 2024-09-01 08:21 | disposition home or self-care (01) ==
LOC: ER 06:48
DX: S40.021A Contusion of right upper arm, initial encounter (principal)
CPT/HCPCS: 93971; 99282

== ENCOUNTER 2024-10-07 23:02 | Emergency (ER) | payer OTHER ==
[2024-10-07] MEDS ORDERED: NA CHLORIDE 0.9% 1,000 ML ONE (23:32)
[2024-10-08 00:24] LABS: Absolute Basophils 0.2 K/uL (0-0.5); Absolute Eosinophils 0.1 K/uL (0-0.5); Absolute Monocytes 0.6 K/uL (0.1-1.3); Absolute Neutrophil 5.1 K/uL (1.8-8.0); Basophils % 1.9 % (0-1.3); Eosinophils % 1.3 % (0-4.4); Hematocrit 35.9 % (36.0-45.0); Hemoglobin 11.4 g/dL (12.0-15.0); Lymphocytes % 32.9 % (15.3-44.8); MCH 24.7 pg (27.0-35.0); MCHC 31.7 g/dL (32.0-36.0); MPV 8.4 fL (7.6-11.3); Monocytes % 6.7 % (3.3-12.3); Neutrophils % 57.2 % (41.7-73.7); Nucleated Red Blood Cells % 0.1 % (0-0); Platelets 406 thou/uL (152-406); Red Cell Distribution Width 16.4 % (12.1-15.2)
[2024-10-08 00:33] LABS: Albumin 2.8 g/dL (3.4-5.0); Albumin/Globulin Ratio 0.5 (1.1-1.8); Anion Gap 7.8 mEq/L (5.0-15.0); Bilirubin Total 0.3 mg/dL (0.2-1.0); Globulin 5.4 g/dL (2.3-3.5); Potassium 3.8 mEq/L (3.5-5.1); Protein, Total 8.2 g/dL (6.4-8.2)
[2024-10-08 00:33] LABS: SARS-CoV-2 Antigen CONTROL BLUE LINE VIS/BG OK; SARS-CoV-2 Antigen Rapid Res Negative (Negative)
--- NOTE | 2024-10-08 00:59 | ER ---
Nurse's Notes [facility] Name: Dori Guardado Age: 49 yrs Sex: Female : 1975 Arrival Date: 10/07/2024 Time: 23:02 Bed 12 Private MD: Diagnosis: Acute upper respiratory infection, unspecified;Diarrhea, unspecified Presentation: 10/07 23:23 Chief complaint: Patient states: I have been having cough and congestion and saw my PCP vita on Monday. She put me on amoxicillin and now I am having diarrhea and dry mouth. Coronavirus screen: At this time, the client does not indicate any symptoms associated with coronavirus-19. Ebola Screen: No symptoms or risks identified at this time. Initial Sepsis Screen: Does the patient meet any 2 criteria? No. Patient's initial sepsis screen is negative. Does the patient have a suspected source of infection? No. Patient's initial sepsis screen is negative. Risk Assessment: Do you want to hurt yourself or someone else? Patient reports no desire to harm self or others. Onset of symptoms was October 04, 2024. Transition of care: patient was not received from another setting of care. 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 - Infectious Disease History:: Denies. - Social history:: Smoking status: Patient denies any tobacco usage or history of. Screenin:28 [facility] ED Fall Risk Assessment (Adult) History of falling in the last 3 months, jb4 including since admission No falls in past 3 months (0 pts) Confusion or Disorientation No (0 pts) Intoxicated or Sedated No (0 pts) Impaired Gait No (0 pts) Mobility Assist Device Used No (0 pt) Altered Elimination No (0 pt) Score/Fall Risk Level 0 - 2 = Low Risk Oriented to surroundings, Maintained a safe environment. Abuse screen: Denies threats or abuse. Nutritional screening: No deficits noted. Tuberculosis screening: No symptoms or risk factors identified. Assessment: 23:27 General: Appears in no apparent distress. comfortable, Behavior is calm, cooperative, jb4 appropriate for age. Pain: Denies pain. Neuro: Level of Consciousness is awake, alert, obeys commands, Oriented to person, place, time, situation. Cardiovascular: Patient's skin is warm and dry. Respiratory: Reports cough that is productive, hacking, persistent Airway is patent Respiratory effort is even, unlabored, Respiratory pattern is regular, symmetrical. GI: Abdomen is obese, Reports diarrhea. Derm: Skin is intact, Skin is dry, Skin is normal, Skin temperature is warm. Musculoskeletal: Circulation, motion, and sensation intact. Range of motion: intact in all extremities. 10/08 01:28 Reassessment: Patient appears in no apparent distress at this time. Patient and/or jb4 family updated on plan of care and expected duration. Pain level reassessed. Patient is alert, oriented x 3, equal unlabored respirations, skin warm/dry/pink. Vital Signs: 10/07 23:23 BP 133 / 87; Pulse 69; Resp 16; Temp 98.2(O); Pulse Ox 100% on R/A; Weight 122.47 kg jb4 (R); Height 5 ft. 3 in. (R); Pain 0/10; 10/08 01:00 BP 126 / 72; Pulse 62; Resp 16; Pulse Ox 100% on R/A; jb4 10/07 23:23 Body Mass Index 47.83 (122.47 kg, 160.02 cm) jb4 10/07 23:23 Pain Scale: Adult jb4 ED Course: 10/07 23:11 Patient arrived in ED. ec2 23:11 [facility] kb 23:11 Edilson Terry MD is Attending Physician. kb 23:18 ADRIEL NUNES, LEONA is Primary Nurse. dd2 23:26 Triage completed. jb4 23:26 Arm band placed on right wrist. jb4 23:28 Patient has correct armband on for positive identification. Bed in low position. Call jb4 light in reach. Side rails up X 1. Provided Education on: plan of care. 23:43 SARS-COV-2 Antigen Rapid Sent. vk 23:43 Flu Sent. vk 23:43 COVID swab sent to lab. Flu and/or RSV swab sent to lab. vk 23:45 Missed attempt(s): 20 gauge in right hand. antecubital area. vk 23:58 Chest Single View XRAY In Process Unspecified. EDIL 10/08 00:05 Inserted saline lock: 22 gauge in right hand, using aseptic technique. Blood collected. jb4 00:05 Missed attempt(s): 20 gauge in right antecubital area. Bleeding controlled, band aid jb4 applied, catheter tip intact. 00:07 CBC with Diff Sent. jb4 00:07 CMP Sent. jb4 00:07 Lipase Sent. jb4 01:00 No provider procedures requiring assistance completed. IV discontinued, intact, jb4 bleeding controlled, No redness/swelling at site. Pressure dressing applied. Administered Medications: 00:07 Drug: NS 0.9% IV 1000 ml IV at 1 bolus Per protocol; to be given as a bolus over 60 jb4 minutes Route: IV; Rate: 1 bolus; Site: right hand; 01:20 Follow up: Response: No adverse reaction; IV Status: pt discharged; IV Intake: 700ml jb4 Medication: 10/07 23:28 VIS not applicable for this client. jb4 Intake: 10/08 01:20 IV: 700ml; Total: 700ml. jb4 Outcome: 00:58 Discharge ordered by . kb 01:15 Discharged to home ambulatory, jb4 01:15 Condition: stable 01:15 Discharge instructions given to patient, Instructed on discharge instructions, follow up and referral plans. medication usage, Demonstrated understanding of instructions, follow-up care, medications, Prescriptions given X 1, 01:28 Patient left the ED. jb4 Signatures: Dispatcher [employer] Mishel Mancilla, NICKIE-Dinora FU-Hong [place], RN RN jb4 Edilson Terry MD MD ec2 Emma Villalba DIANA, RN RN dd2
--- NOTE | 2024-10-08 00:59 | EDPHYS ---
Physician Documentation [facility] Name: Dori Guardado Age: 49 yrs Sex: Female : 1975 Arrival Date: 10/07/2024 Time: 23:02 Bed 12 Private MD: ED Physician Edilson Terry HPI: 10/08 00:38 This 49 yrs old Black Female presents to ER via Ambulatory with complaints of Abdominal kb Pain. 00:38 Pt is a 49 year old female who presents for cough, congestion, diarrhea and dry mouth. kb States the cough and congestion started 5 days ago, was seen by PCP 4 days ago and put on amoxicillin. Reports diarrhea began after starting the amoxicillin and now she is having a dry mouth. Denies nausea, vomiting, abd pain.. 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 - Infectious Disease History:: Denies. - Social history:: Smoking status: Patient denies any tobacco usage or history of. ROS: 10/08 00:37 Constitutional: As per HPI kb Exam: 00:37 Constitutional: This is a well developed, well nourished patient who is awake, alert, kb and in no acute distress. Head/Face: Normocephalic, atraumatic. ENT: Moist Mucous membranes Cardiovascular: Regular rate Respiratory: Respirations even and unlabored. No increased work of breathing. Talking in full sentences Abdomen/GI: Soft, non-tender. No distention Skin: Warm, dry with normal turgor. Normal color. MS/ Extremity: Pulses equal, no cyanosis. Neurovascular intact. Full, normal range of motion. Neuro: Awake and alert, GCS 15, oriented to person, place, time, and situation. Vital Signs: 10/07 23:23 BP 133 / 87; Pulse 69; Resp 16; Temp 98.2(O); Pulse Ox 100% on R/A; Weight 122.47 kg jb4 (R); Height 5 ft. 3 in. (R); Pain 0/10; 10/08 01:00 BP 126 / 72; Pulse 62; Resp 16; Pulse Ox 100% on R/A; jb4 10/07 23:23 Body Mass Index 47.83 (122.47 kg, 160.02 cm) 4 10/07 23:23 Pain Scale: Adult jb4 MDM: 10/07 23:11 Medical Screening Exam initiated 10/08 00:39 Differential Diagnosis: Other covid, flu, dehydration, viral illness, adverse reaction kb to medication. Data reviewed: vital signs, nurses notes. 00:58 I considered the following discharge prescriptions or medication management in the emergency department I discussed and recommended Over The Counter medications, Antibiotics: At this time antibiotics are not recommended, Antivirals: At this time, antivirals are not recommended. Test considered but Not performed: CT: ct abd considered but pt has no abd pain or tenderness. Counseling: I had a detailed discussion with the patient and/or guardian regarding the historical points, exam findings, and any diagnostic results supporting the discharge/admit diagnosis, lab results, radiology results, the need for outpatient follow up, a family practitioner, to return to the emergency department if symptoms worsen or persist or if there are any questions or concerns that arise at home. 10/07 23:22 Order name: CBC with Diff; Complete Time: 00:30 kb 10/07 23:22 Order name: CMP; Complete Time: 00:37 kb 10/07 23:22 Order name: Lipase; Complete Time: 00:37 kb 10/07 23:22 Order name: Flu; Complete Time: 00:37 kb 10/07 23:22 Order name: SARS-COV-2 Antigen Rapid; Complete Time: 00:33 kb 10/07 23:22 Order name: Chest Single View XRAY 10/07 23:22 Order name: IV Saline Lock; Complete Time: 00:07 kb 10/07 23:22 Order name: Labs collected and sent; Complete Time: 00:07 kb Administered Medications: 00:07 Drug: NS 0.9% IV 1000 ml IV at 1 bolus Per protocol; to be given as a bolus over 60 jb4 minutes Route: IV; Rate: 1 bolus; Site: right hand; 01:20 Follow up: Response: No adverse reaction; IV Status: pt discharged; IV Intake: 700ml jb4 Disposition Summary: 10/08/24 00:58 Discharge Ordered Notes: Location: Home kb Condition: Stable kb Diagnosis - Acute upper respiratory infection, unspecified kb - Diarrhea, unspecified kb Followup: kb - With: Emergency Department - When: As needed - Reason: Worsening of condition Followup: kb - With: Private Physician - When: 2 - 3 days - Reason: Recheck today's complaints, Continuance of care, Re-evaluation by your physician Discharge Instructions: - Discharge Summary Sheet kb - Upper Respiratory Infection, Adult, [id number] kb - Diarrhea, Adult, [id number] kb Forms: - Medication Reconciliation Form kb - Antibiotic Education kb - Prescription Opioid Use kb - Patient Portal Instructions kb - Leadership Thank You Letter kb Prescriptions: - Tessalon Perles 100 mg Oral Capsule - take 1 capsule ORAL route every 8 hours As needed; 15 capsule; Refills: 0, kb Product Selection Permitted Addendum: 10/14/2024 09:15 I was immediately available for consultation during this patient's visit. I did not e c2 personally see the patient or discuss the patient with the [place]. . Signatures: Dispatcher [employer] Mishel Mancilla, NICKIE-Dinora AGUILARP-Hong [place], RN RN jb4 Edilson Terry MD MD ec2 Corrections: (The following items were deleted from the chart) 10/07 23:22 23:22 Chest Single View+RAD.RAD.BRZ ordered. SHIMA RONQUILLO
--- NOTE | 2024-10-08 06:22 | RAD REPORT ---
TIME OF STUDY: 10/07/2024 11:22 PM SUPERVISOR SAMPLE REASON FOR EXAM: COUGH COMPARISON: August 12, 2023 FINDINGS: AP view of the chest was obtained, chest 1 view. Lungs: Normal lung volume. No mass, or consolidation. Normal pulmonary vascularity.. No significant bronchial wall thickening is noted. Pleura: No pneumothorax. There is no pleural effusion. Heart and Mediastinum: Normal cardiomediastinal silhouette and great vessels.. Bones: No acute bony abnormality.. IMPRESSION: 1. No acute cardiopulmonary process. Electronically signed by: Tye Middleton MD 10/08/2024 12:45 AM SUPERVISOR SAMPLE RP Due to temporary technical issues with the PACS/[place] reporting system, reports are being sumit d by the in-house radiologist without review as a courtesy to ensure prompt reporting the interpreting radiologist is fully responsible for the content of the report. Transcribed Date/Time: 10/08/2024 5:50 AM
[2024-10-08 17:19] VITALS: BP 133/87; TEMP 98.2; O2SAT 100
== END 2024-10-08 01:28 | disposition home or self-care (01) ==
LOC: ER 23:02
DX: J06.9 Acute upper respiratory infection, unspecified (principal); R19.7 Diarrhea, unspecified; Z11.52 Encounter for screening for COVID-19; I10 Essential (primary) hypertension; I48.91 Unspecified atrial fibrillation; Z79.01 Long term (current) use of anticoagulants
CPT/HCPCS: 85025; 36415; 83690; 80053; 87804 ×2; 71045; 96360; 99284; 87811; J7030

== ENCOUNTER 2024-10-10 22:49 | Emergency (ER) | payer OTHER ==
[2024-10-10] MEDS ORDERED: ASPIRIN EC 81 MG TAB PO ONE (23:33)
[2024-10-11 01:55] LABS: Absolute Basophils 0.1 K/uL (0-0.5); Absolute Eosinophils 0.1 K/uL (0-0.5); Absolute Lymphocytes (CBC) 3.2 K/uL (0.7-4.9); Absolute Monocytes 0.6 K/uL (0.1-1.3); Absolute Neutrophil 3.6 K/uL (1.8-8.0); Basophils % 1.8 % (0-1.3); Eosinophils % 1.3 % (0-4.4); Hematocrit 34.5 % (36.0-45.0); Hemoglobin 11.1 g/dL (12.0-15.0); Lymphocytes % 41.8 % (15.3-44.8); MCH 24.8 pg (27.0-35.0); MCHC 32.2 g/dL (32.0-36.0); MCV 76.8 fL (80-100); MPV 8.5 fL (7.6-11.3); Monocytes % 8.1 % (3.3-12.3); Platelets 378 thou/uL (152-406)
[2024-10-11 01:58] LABS: PT Prothrombin Time 13.3 SECONDS (9.4-12.5); PTT, Activated Partial Thromb 34.7 SECONDS (24.3-36.9); Protime INR 1.27
[2024-10-11 02:02] LABS: Sqamous Epithelial <5 /HPF (None Seen); Urine Bacteria <20 /HPF (<20); Urine Bilirubin NEGATIVE (Negative); Urine Blood Negative (Negative); Urine Clarity Clear (Clear); Urine Color Light-Yellow (Yellow); Urine Culture Reflex Order NOT NEEDED; Urine Glucose NEGATIVE (Negative); Urine Ketones NEGATIVE (Negative); Urine Micro Reflex YN NO BILL MICROSCOPIC; Urine Mucus Slight /HPF (None Seen); Urine Nitrite NEGATIVE (Negative); Urine Protein NEGATIVE (Negative); Urine RBC <5 /HPF (None Seen); Urine Urobilinogen Normal (Normal); Urine WBC <5 /HPF (<5); Urine pH 5.5 (5.0-7.0)
[2024-10-11 02:09] LABS: ALT/SGPT 21 U/L (13-56); AST/SGOT 14 U/L (15-37); Albumin 2.8 g/dL (3.4-5.0); Albumin/Globulin Ratio 0.6 (1.1-1.8); Alkaline Phosphatase 65 U/L (45-117); Anion Gap 9.6 mEq/L (5.0-15.0); BUN Blood Urea Nitrogen 10 mg/dL (7-18); Bicarbonate 25 mEq/L (21-32); Bilirubin Total 0.5 mg/dL (0.2-1.0); Globulin 4.8 g/dL (2.3-3.5); Glomerular Filtration Rate 99 ml/min (=/>90); Glucose Level 91 mg/dL (74-106); Magnesium 1.8 mg/dL (1.6-2.4); NT PRO-BNP 256 pg/mL (<125); Potassium 3.6 mEq/L (3.5-5.1); Protein, Total 7.6 g/dL (6.4-8.2); Sodium Level 141 mEq/L (136-145); Troponin High Sensitivity 4.2 pg/mL (<58.9)
[2024-10-11 02:10] LABS: Bilirubin Direct < 0.2 mg/dL (0-0.2); Bilirubin Indirect, Calculated 0.3 mg/dL (0.2-0.8)
[2024-10-11] MEDS ORDERED: LORazepam 2 MG/ML VIAL ONE (02:25)
--- NOTE | 2024-10-11 03:57 | EDPHYS ---
Physician Documentation [facility] Name: Dori Guardado Age: 49 yrs Sex: Female : 1975 Arrival Date: 10/10/2024 Time: 22:49 Bed 13 Private MD: ED Physician Jose Luis Parikh HPI: 10/10 23:20 This 49 yrs old Black Female presents to ER via Ambulatory with complaints of Chest cp Pain, High Blood Pressure, Arm Pain. 23:20 The patient or guardian reports chest pain that is located primarily in the anterior cp chest wall. 23:20 Onset: today, after getting off phone with family member. reports recent passing of uncle. The pain does not radiate. Associated signs and symptoms: Pertinent positives: arm pain, Pertinent negatives: cough, diaphoresis, dizziness, near syncope, palpitations, syncope. Duration: The patient or guardian reports a single episode, that is now resolved. 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 - Infectious Disease History:: Denies. - Social history:: Smoking status: Patient denies any tobacco usage or history of. ROS: 23:25 Constitutional: Negative for body aches, chills, fever, poor PO intake, cp 23:25 Eyes: Negative for injury, pain, redness, and discharge, cp 23:25 ENT: Positive for sinus congestion, 23:25 Cardiovascular: Positive for chest pain, 23:25 Respiratory: Negative for cough, wheezing, 23:25 Abdomen/GI: Negative for abdominal pain, vomiting, diarrhea, constipation, 23:25 Neuro: Negative for altered mental status, dizziness, headache, numbness, syncope, weakness, 23:25 All other systems are negative, Exam: 23:05 ECG was reviewed by the Attending Physician. cp 23:30 Constitutional: The patient appears in no acute distress, alert, awake, cp non-diaphoretic, non-toxic, well developed, well nourished, obese, 23:30 Head/Face: Normocephalic, atraumatic. cp 23:30 Eyes: Periorbital structures: appear normal, Conjunctiva: normal, no exudate, no injection, Sclera: no appreciated abnormality, Lids and lashes: appear normal, bilaterally, 23:30 ENT: External ear(s): are unremarkable, Nose: is normal, Mouth: Lips: moist, Oral mucosa: moist, Posterior pharynx: Airway: no evidence of obstruction, patent, 23:30 Chest/axilla: Inspection: normal, 23:30 Cardiovascular: Rate: normal, Rhythm: regular, 23:30 Respiratory: the patient does not display signs of respiratory distress, Respirations: normal, no use of accessory muscles, no retractions, labored breathing, is not present, Breath sounds: are clear throughout, no decreased breath sounds, no stridor, no wheezing, 23:30 Abdomen/GI: Inspection: abdomen appears normal, Palpation: abdomen is soft and non-tender, in all quadrants, 23:30 Neuro: Orientation: to person, place \T\ time. Mentation: is normal, Motor: moves all fours, Sensation: no obvious gross deficits, Vital Signs: 22:55 BP 115 / 78; Pulse 67; Resp 18; Temp 98(O); Pulse Ox 100% on R/A; Weight 122.47 kg; 5 Height 5 ft. 3 in. ; Pain 4/10; 23:10 BP 115 / 78; Pulse 67; Resp 18; Pulse Ox 100% on R/A; Pain 4/10; 5 10/11 00:00 BP 119 / 72; Pulse 64; Resp 17; Pulse Ox 100% on R/A; Pain 0/10; rg5 01:00 BP 118 / 74; Pulse 65; Resp 18; Pulse Ox 99% on R/A; Pain 0/10; 5 03:33 BP 120 / 71; Pulse 66; Resp 17; Temp 98(O); Pulse Ox 100% on R/A; Pain 0/10; [facility] 10/10 22:55 Body Mass Index 47.83 (122.47 kg, 160.02 cm) rg5 10/10 22:55 Pain Scale: Adult rg5 23:10 Pain Scale: Adult rg5 10/11 00:00 Pain Scale: Adult rg5 01:00 Pain Scale: Adult rg5 03:33 Pain Scale: Adult rg5 MDM: 10/10 23:07 Medical Screening Exam initiated cp 10/11 00:00 Differential diagnosis: abnormal EKG, acute myocardial infarction, anxiety, pleurisy, cp pneumonia, pneumothorax, stable angina, unstable angina. 02:15 Data reviewed: vital signs, nurses notes, lab test result(s), radiologic studies, plain cp films. 02:15 The patient was given aspirin in the Emergency Department. Care significantly affected cp by the following chronic conditions: Hypertension, Obesity. Transition of care: After a detail discussion of the patient's case, care is transferred to Jose Luis Parikh MD. 03:50 ED course: EXAM DESCRIPTION: Chest Single View CLINICAL HISTORY:49 years Female, CHEST sp4 PAIN Comparison: Chest radiograph dated 10/07/2024 IMPRESSION: No focal lung consolidation. No pleural effusion. No pneumothorax. Cardiomediastinal silhouette is within normal limits. No acute osseous abnormality. . 10/10 23:14 Order name: Basic Metabolic Panel; Complete Time: 02:13 cp 10/10 23:14 Order name: CBC with Diff; Complete Time: 02:13 cp 10/11 02:13 Interpretation: Normal except: HGB 11.1; HCT 34.5; MCV 76.8; MCH 24.8; RDW 16.0; BASO% cp 1.8. 10/10 23:14 Order name: LFT's; Complete Time: 02:13 cp 10/10 23:14 Order name: Magnesium; Complete Time: 02:13 cp 10/10 23:14 Order name: NT PRO-BNP; Complete Time: 02:13 cp 10/10 23:14 Order name: PT-INR; Complete Time: 02:13 cp 10/10 23:14 Order name: Troponin HS; Complete Time: 02:13 cp 10/11 02:14 Interpretation: Reviewed. cp 10/10 23:14 Order name: Ptt, Activated; Complete Time: 02:13 cp 10/10 23:16 Order name: Urinalysis W/Microscopic; Complete Time: 02:13 cp 10/10 23:16 Order name: Test, Urine; Complete Time: 02:13 cp 10/10 23:14 Order name: XRAY Chest (1 view) cp 10/10 23:14 Order name: EKG; Complete Time: 23:14 cp 10/10 23:14 Order name: Cardiac monitoring; Complete Time: 23:58 cp 10/10 23:14 Order name: EKG - Nurse/Tech; Complete Time: 23:40 cp 10/10 23:14 Order name: IV Saline Lock; Complete Time: 01:53 cp 10/10 23:14 Order name: Labs collected and sent; Complete Time: 01:53 cp 10/10 23:14 Order name: O2 Per Protocol; Complete Time: 23:40 cp 10/10 23:14 Order name: O2 Sat Monitoring; Complete Time: 23:40 cp 10/11 00:31 Order name: Misc. Order: RECOLLECT ALL LABS; Complete Time: 02:33 rv1 EC/16 23:05 Rate is 67 beats/min. Rhythm is regular. ND interval is normal. QRS interval is normal. cp QT interval is normal. T waves are Inverted in lead aVR. Interpreted by me. Reviewed by me. Administered Medications: 23:40 Drug: Aspirin PO Chewable Tablet 324 mg PO once; 81 mg tablets x 4 Route: PO; rg5 10/11 01:53 Follow up: Response: No adverse reaction rg5 02:33 Not Given (Patient Refused): ativan1 mg IVP once; for anxiety rg5 Disposition: 03:54 Co-signature as Attending Physician, Jose Luis Parikh MD I agree with the assessment sp4 and plan of care. I reviewed the patient's care provided by the Advanced Practice Provider and agree with the diagnosis and treatment plan. Disposition Summary: 10/11/24 03:56 Discharge Ordered Notes: Location: Home sp4 Problem: new sp4 Symptoms: have improved sp4 Condition: Stable sp4 Diagnosis - Anxiety disorder, unspecified sp4 - Acute Anxiety Attack , Non cardiac chest pain sp4 Followup: sp4 - With: Private Physician - When: 7 - 10 days - Reason: Recheck today's complaints Discharge Instructions: - Discharge Summary Sheet sp4 - Panic Attack sp4 Forms: - Patient Portal Instructions sp4 Prescriptions: - Valium 5 mg Oral tablet - take 1 tablet ORAL route once daily As needed PRN anxiety; 12 tablet; Refills: sp4 0, Product Selection Permitted Signatures: Dispatcher [employer] EDMS Hardy Mahoney PA PA cp Villegas, Rebecca rv1 Jose Luis Parikh MD MD sp4 Mo Carmona RN RN rg5 Corrections: (The following items were deleted from the chart) 10/10 23:08 22:50 PSHx: Appendectomy; rg5 rg5
--- NOTE | 2024-10-11 03:57 | ER ---
Nurse's Notes [facility] Name: Dori Guardado Age: 49 yrs Sex: Female : 1975 Arrival Date: 10/10/2024 Time: 22:49 Bed 13 Private MD: Diagnosis: Anxiety disorder, unspecified;Acute Anxiety Attack , Non cardiac chest pain Presentation: 10/10 22:55 Chief complaint: Patient states: I am having chest pain that radiates to my left arm rg5 started an hr ago, also I have been stressed out since morning coz my uncle . 22:55 Coronavirus screen: Vaccine status: Patient reports being unvaccinated. Client denies rg5 travel out of the [place] in the last 14 days. Ebola Screen: Patient negative for fever greater than or equal to 101.5 degrees Fahrenheit, and additional compatible Ebola Virus Disease symptoms. Initial Sepsis Screen: Does the patient meet any 2 criteria? No. Patient's initial sepsis screen is negative. Does the patient have a suspected source of infection? No. Patient's initial sepsis screen is negative. Risk Assessment: Do you want to hurt yourself or someone else? Patient reports no desire to harm self or others. Onset of symptoms was October 10, 2024. 22:55 Method Of Arrival: Ambulatory rg5 22:55 Acuity: KASH 3 rg5 Triage Assessment: 22:50 General: Appears in no apparent distress. Behavior is calm, cooperative, appropriate rg5 for age. Pain: Complains of pain in chest Pain radiates to left arm Pain currently is 4 out of 10 on a pain scale. Quality of pain is described as aching, Pain began 1 hour ago. EENT: No deficits noted. Neuro: Level of Consciousness is awake, alert, Oriented to person, place, time. Cardiovascular: Reports chest pain, Heart tones S1 S2 Patient's skin is warm and dry. Rhythm is sinus rhythm. Respiratory: Airway is patent Trachea midline Respiratory effort is even, unlabored, Respiratory pattern is regular, symmetrical. GI: Abdomen is round non-distended. : No signs and/or symptoms were reported regarding the genitourinary system. Derm: Skin is intact, Skin is dry, Skin is normal. Musculoskeletal: Circulation, motion, and sensation intact. Range of motion: intact in all extremities. 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 - Infectious Disease History:: Denies. - Social history:: Smoking status: Patient denies any tobacco usage or history of. Screenin:11 [facility] ED Fall Risk Assessment (Adult) History of falling in the last 3 months, rg5 including since admission No falls in past 3 months (0 pts) Confusion or Disorientation No (0 pts) Intoxicated or Sedated No (0 pts) Impaired Gait No (0 pts) Mobility Assist Device Used No (0 pt) Altered Elimination No (0 pt) Score/Fall Risk Level 0 - 2 = Low Risk Oriented to surroundings, Maintained a safe environment, Hourly rounding (assess needs \T\ fall precautionary measures) done. Abuse screen: Denies threats or abuse. Nutritional screening: No deficits noted. Tuberculosis screening: No symptoms or risk factors identified. Assessment: 23:11 Reassessment: see triage assessment. rg5 10/11 00:00 Reassessment: No changes from previously documented assessment. Patient and/or family rg5 updated on plan of care and expected duration. Pain level reassessed. Patient is alert, oriented x 3, equal unlabored respirations, skin warm/dry/pink. 01:00 Reassessment: No changes from previously documented assessment. Patient and/or family rg5 updated on plan of care and expected duration. Pain level reassessed. Patient is alert, oriented x 3, equal unlabored respirations, skin warm/dry/pink. 02:00 Reassessment: No changes from previously documented assessment. Patient and/or family rg5 updated on plan of care and expected duration. Pain level reassessed. Patient is alert, oriented x 3, equal unlabored respirations, skin warm/dry/pink. 03:36 Reassessment: No changes from previously documented assessment. Patient and/or family rg5 updated on plan of care and expected duration. Pain level reassessed. Patient is alert, oriented x 3, equal unlabored respirations, skin warm/dry/pink. Vital Signs: 10/10 22:55 BP 115 / 78; Pulse 67; Resp 18; Temp 98(O); Pulse Ox 100% on R/A; Weight 122.47 kg; rg5 Height 5 ft. 3 in. ; Pain 4/10; 23:10 BP 115 / 78; Pulse 67; Resp 18; Pulse Ox 100% on R/A; Pain 4/10; rg5 10/11 00:00 BP 119 / 72; Pulse 64; Resp 17; Pulse Ox 100% on R/A; Pain 0/10; rg5 01:00 BP 118 / 74; Pulse 65; Resp 18; Pulse Ox 99% on R/A; Pain 0/10; rg5 03:33 BP 120 / 71; Pulse 66; Resp 17; Temp 98(O); Pulse Ox 100% on R/A; Pain 0/10; rg5 10/10 22:55 Body Mass Index 47.83 (122.47 kg, 160.02 cm) rg5 10/10 22:55 Pain Scale: Adult rg5 23:10 Pain Scale: Adult rg5 10/11 00:00 Pain Scale: Adult rg5 01:00 Pain Scale: Adult rg5 03:33 Pain Scale: Adult rg5 ED Course: 10/10 22:50 Patient arrived in ED. jj6 22:50 Arm band placed on right wrist. EKG completed in triage. Results shown to MD. rg5 22:51 [facility] cp 22:51 Jose Luis Parikh MD is Attending Physician. cp 23:01 Mo Carmona, LEONA is Primary Nurse. rg5 23:07 Triage completed. rg5 23:11 Patient has correct armband on for positive identification. Placed in gown. Bed in low rg5 position. Call light in reach. Side rails up X 1. Client placed on continuous cardiac and pulse oximetry monitoring. NIBP monitoring applied. awake overnight monitor on. Pulse ox on. NIBP on. Door closed. Noise minimized. Warm blanket given. Verbal reassurance given. 23:11 No provider procedures requiring assistance completed. Patient maintains SpO2 rg5 saturation greater than 95% on room air. 10/11 00:20 XRAY Chest (1 view) In Process Unspecified. EDMS 04:07 Provided Education on: post er care done. rg5 04:07 IV discontinued, bleeding controlled, No redness/swelling at site. Pressure dressing rg5 applied. Administered Medications: 10/10 23:40 Drug: Aspirin PO Chewable Tablet 324 mg PO once; 81 mg tablets x 4 Route: PO; rg5 10/11 01:53 Follow up: Response: No adverse reaction rg5 02:33 Not Given (Patient Refused): ativan1 mg IVP once; for anxiety rg5 Medication: 10/10 23:11 VIS not applicable for this client. rg5 Outcome: 10/11 03:56 Discharge ordered by . sp4 04:06 Discharged to home ambulatory, rg5 04:06 Condition: stable 04:06 Discharge instructions given to patient, Instructed on discharge instructions, follow up and referral plans. Demonstrated understanding of instructions, follow-up care, medications, Prescriptions given X 1, 04:18 Patient left the ED. rg5 Signatures: Dispatcher [employer] EDMS Hardy Mahoney PA PA cp Jeffries, Jennifer jj6 Jose Luis Parikh MD MD sp4 Mo Carmona, RN RN rg5 Corrections: (The following items were deleted from the chart) 10/10 23:08 22:50 PSHx: Appendectomy; rg5 rg5
[2024-10-11 04:39] VITALS: TEMP 98
[2024-10-11 04:47] VITALS: BP 120/71; O2SAT 100
--- NOTE | 2024-10-11 05:52 | RAD REPORT ---
EXAM DESCRIPTION: Chest Single View CLINICAL HISTORY: 9 years Female, CHEST PAIN Comparison: Chest radiograph dated 10/07/2024 IMPRESSION: No focal lung consolidation. No pleural effusion. No pneumothorax. Cardiomediastinal silhouette is within normal limits. No acute osseous abnormality. Electronically signed by: Mike Escobar DO 10/11/2024 12:53 AM PRECINCT CAPTAIN 9 Due to temporary technical issues with the PACS/[place] reporting system, reports are being sumit d by the in-house radiologist without review as a courtesy to ensure prompt reporting the interpreting radiologist is fully responsible for the content of the report. Transcribed Date/Time: 10/11/2024 5:51 AM
--- NOTE | 2024-10-17 13:16 | EKG ---
Test Date: 2024-10-10 Test Time: 22:57:18 Automation Design Engineer: AF MEASUREMENT RESULTS: Intervals: Rate: 67 [place]: 152 QRSD: 82 QT: 400 QTc: 422 [place]: P: 54 [place]: 152 QRS: 7 T: 41 INTERPRETIVE STATEMENTS: Normal sinus rhythm Normal ECG Compared to ECG 08/06/2024 06:57:22 Atrial fibrillation no longer present Myocardial infarct finding no longer present Electronically Signed On 10-17-24 13:05:41 LUBRICATING ENGINEER by Jeff Dasilva
== END 2024-10-11 04:18 | disposition home or self-care (01) ==
LOC: ER 22:49
DX: F41.0 Panic disorder [episodic paroxysmal anxiety] (principal); F41.9 Anxiety disorder, unspecified; I10 Essential (primary) hypertension; I48.91 Unspecified atrial fibrillation; Z79.01 Long term (current) use of anticoagulants
CPT/HCPCS: 36415; 71045; 80048; 80076; 81001; 81025; 83735; 83880; 84484; 85025; 85610; 85730; 93005; 99284

== ENCOUNTER 2024-10-17 09:53 | Inpatient (IN) | payer OTHER ==
--- NOTE | 2024-10-17 10:27 | RAD REPORT ---
Procedure: Chest Single View HISTORY: Cough COMPARISON: October 11, 2024 FINDINGS: The lungs appear clear of acute infiltrate. No significant pleural effusion noted. The heart is mildly enlarged. IMPRESSION: No acute abnormality is displayed.
[2024-10-17 11:12] LABS: Absolute Eosinophils 0.1 K/uL (0-0.5); Absolute Lymphocytes (CBC) 2.2 K/uL (0.7-4.9); Absolute Monocytes 0.3 K/uL (0.1-1.3); Absolute Neutrophil 2.2 K/uL (1.8-8.0); Basophils % 0.8 % (0-1.3); Eosinophils % 1.6 % (0-4.4); Hematocrit 32.1 % (36.0-45.0); Hemoglobin 10.3 g/dL (12.0-15.0); Lymphocytes % 45.9 % (15.3-44.8); MCH 24.8 pg (27.0-35.0); MCHC 31.9 g/dL (32.0-36.0); MCV 77.7 fL (80-100); MPV 8.5 fL (7.6-11.3); Monocytes % 6.9 % (3.3-12.3); Neutrophils % 44.8 % (41.7-73.7); Nucleated Red Blood Cells % 0.1 % (0-0); Platelets 220 thou/uL (152-406); RBC Red Blood Cell Count 4.13 M/uL (3.86-4.86); Red Cell Distribution Width 16.3 % (12.1-15.2)
[2024-10-17 11:35] LABS: ALT/SGPT 15 U/L (13-56); AST/SGOT 14 U/L (15-37); Albumin 2.2 g/dL (3.4-5.0); Albumin/Globulin Ratio 0.6 (1.1-1.8); Alkaline Phosphatase 53 U/L (45-117); Anion Gap 8.2 mEq/L (5.0-15.0); BUN Blood Urea Nitrogen 8 mg/dL (7-18); Bicarbonate 19 mEq/L (21-32); Bilirubin Total 0.4 mg/dL (0.2-1.0); Glomerular Filtration Rate 117 ml/min (=/>90); Glucose Level 80 mg/dL (74-106); NT PRO-BNP 211 pg/mL (<125); Potassium 3.2 mEq/L (3.5-5.1); Protein, Total 6.2 g/dL (6.4-8.2); Sodium Level 143 mEq/L (136-145); Troponin High Sensitivity 3.6 pg/mL (<58.9)
[2024-10-17 11:43] LABS: Bilirubin Direct < 0.2 mg/dL (0-0.2); Bilirubin Indirect, Calculated 0.2 mg/dL (0.2-0.8)
--- NOTE | 2024-10-17 13:41 | ER ---
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 Coronavirus screen: Vaccine status: Patient reports receiving the 2nd dose of the covid vaccine. Ebola Screen: No symptoms or risks identified at this time. Initial Sepsis Screen: Does the patient meet any 2 criteria? No. Patient's initial sepsis screen is negative. Does the patient have a suspected source of infection? No. Patient's initial sepsis screen is negative. Risk Assessment: Do you want to hurt yourself or someone else? Patient reports no desire to harm self or others. Onset of symptoms was October 17, 2024. 10:00 Method Of Arrival: EMS: [facility] 10:00 Acuity: KASH 2 ph 10:00 Care prior to arrival: Medication(s) given: ASA, 81 mg, x 4, zofran 4 mg. ph Triage Assessment: 10:05 General: Appears in no apparent distress. uncomfortable, Behavior is calm, cooperative. ph Pain: Complains of pain in anterior aspect of left upper chest Pain radiates to left arm. Neuro: Level of Consciousness is awake, alert, obeys commands, Oriented to person, place, time, situation. Cardiovascular: Reports chest pain, nausea, palpitations, Capillary refill < 3 seconds in bilateral fingers Patient's skin is warm and dry. Respiratory: Reports shortness of breath Airway is patent Respiratory effort is even, unlabored, Respiratory pattern is regular, symmetrical. Derm: Skin is pink, warm \T\ dry. Musculoskeletal: Circulation, motion, and sensation intact. Range of motion: intact in all extremities. Historical: - Allergies: 10:04 No Known Allergies; ph - Home Meds: 10:04 Eliquis 5 mg Oral Tablet 1 tab 2 times per day [Active]; Humira 80MG subcutaneous ph Syringe Kit 80 mg once every two weeks [Active]; Protonix 40 mg Oral Tablet 1 tab daily [Active]; sotalol 40 MG Oral Tablet 8 mL 2 times per day [Active]; - PMHx: 10:04 Atrial Fib; bowel obstruction; Crohn's; DVT; Hypertension; ph - PSHx: 10:04 ablation; section; Cholecystectomy; partial hysterectomy; ph - Immunization history:: Adult Immunizations unknown. - Infectious Disease History:: Denies. - Social history:: Smoking status: Patient denies any tobacco usage or history of. - Family history:: not pertinent. Screenin:05 [facility] ED Fall Risk Assessment (Adult) History of falling in the last 3 months, ph including since admission No falls in past 3 months (0 pts) Confusion or Disorientation No (0 pts) Intoxicated or Sedated No (0 pts) Impaired Gait No (0 pts) Mobility Assist Device Used No (0 pt) Altered Elimination No (0 pt) Score/Fall Risk Level 0 - 2 = Low Risk Oriented to surroundings, Maintained a safe environment, Hourly rounding (assess needs \T\ fall precautionary measures) done. Abuse screen: Denies threats or abuse. Denies injuries from another. Nutritional screening: No deficits noted. Tuberculosis screening: No symptoms or risk factors identified. Assessment: 10:41 General: SEE TRIAGE ASSESSMENT. ph 13:32 Reassessment: Patient appears in no apparent distress at this time. Patient and/or ph family updated on plan of care and expected duration. Pain level reassessed. Patient is alert, oriented x 3, equal unlabored respirations, skin warm/dry/pink. 14:40 Reassessment: Patient appears in no apparent distress at this time. Patient and/or ph family updated on plan of care and expected duration. Pain level reassessed. Patient is alert, oriented x 3, equal unlabored respirations, skin warm/dry/pink. Vital Signs: 10:00 BP 126 / 103; Pulse 83; Resp 18; Temp 97.8; Pulse Ox 100% ; Weight 122.47 kg; Height 5 ph ft. 7 in. ; 11:30 BP 122 / 76; Pulse 82; Resp 18; Pulse Ox 97% on R/A; ph 12:30 BP 132 / 78; Pulse 76; Resp 18; Pulse Ox 98% on R/A; ph 13:32 BP 121 / 71; Pulse 75; Resp 18; Pulse Ox 96% on R/A; ph 14:40 BP 114 / 69; Pulse 84; Resp 18; Pulse Ox 97% on R/A; ph 10:00 Body Mass Index 42.29 (122.47 kg, 170.18 cm) ph Vitals: 13:32 Cardiac Rhythm Assessment Atrial fibrillation. ph ED Course: 09:55 Patient arrived in ED. ld1 09:56 Servando Mata MD is Attending Physician. rt 10:00 Nathalie Singleton RN is Primary Nurse. ph 10:04 Triage completed. ph 10:04 Arm band placed on Patient placed in an exam room, on a stretcher, on alarm security or surveillance monitor, ph on pulse oximetry. 10:06 Patient has correct armband on for positive identification. Bed in low position. Call ph light in reach. Side rails up X 1. Client placed on continuous cardiac and pulse oximetry monitoring. NIBP monitoring applied. monitoring analyst on. Door closed. Noise minimized. Warm blanket given. Pillow given. 10:06 Patient maintains SpO2 saturation greater than 95% on room air. ph 10:17 XRAY Chest (1 view) In Process Unspecified. EDMS 10:41 Initial lab(s) drawn, by me, sent to lab. EKG done, by ED staff, reviewed by Servando Mata MD. Maintain EMS IV. Dressing intact. Good blood return noted. Site clean \T\ dry. Gauge \T\ site: 20 LAC. Flushed with 10 mL NS. 13:40 Yeison Baron MD is Hospitalizing Provider. rt 15:00 No provider procedures requiring assistance completed. Patient admitted, IV remains in ph place. Administered Medications: No medications were administered Medication: 10:06 VIS not applicable for this client. ph Outcome: 13:40 Decision to Hospitalize by Provider. rt 15:00 Admitted to ER Hold. Please see [facility] for further documentation. ph 15:00 Condition: stable 15:00 Instructed on the need for admit, 17:53 Patient left the ED. em1 Signatures: Dispatcher [employer] EDMS Tomas Dejesus em1 Nathalie Singleton RN RN Georgia Marie RN RN ld1 Servando Mata, MD rt
--- NOTE | 2024-10-17 13:41 | EDPHYS ---
Physician Documentation [facility] Name: Dori Guardado Age: 49 yrs Sex: Female : 1975 Arrival Date: 10/17/2024 Time: 09:53 Bed 6 Private MD: ED Physician Servando Mata HPI: 10/17 14:09 This 49 yrs old Black Female presents to ER via EMS with complaints of Chest Pain. rt 14:09 Patient with history of who presents to the ED with chest pain. The patient reports rt feeling heart racing at about 4 this morning that lasted for about an hour and then resolved. Patient was again woken up about 8 with a substernal chest pain rating to the left arm that is not usual for her. States the symptoms have improved. Denies other acute complaints at this time, symptoms are moderate in severity, no other aggravating or alleviating factors.. Historical: - Allergies: 10:04 No Known Allergies; ph - Home Meds: 10:04 Eliquis 5 mg Oral Tablet 1 tab 2 times per day [Active]; Humira 80MG subcutaneous ph Syringe Kit 80 mg once every two weeks [Active]; Protonix 40 mg Oral Tablet 1 tab daily [Active]; sotalol 40 MG Oral Tablet 8 mL 2 times per day [Active]; - PMHx: 10:04 Atrial Fib; bowel obstruction; Crohn's; DVT; Hypertension; ph - PSHx: 10:04 ablation; section; Cholecystectomy; partial hysterectomy; ph - Immunization history:: Adult Immunizations unknown. - Infectious Disease History:: Denies. - Social history:: Smoking status: Patient denies any tobacco usage or history of. - Family history:: not pertinent. ROS: 14:09 Constitutional: Negative for fever, chills, and weight loss, Respiratory: Negative for rt shortness of breath, cough, wheezing, and pleuritic chest pain, Abdomen/GI: Negative for abdominal pain, nausea, vomiting, diarrhea, and constipation, MS/Extremity: Negative for injury and deformity, Skin: Negative for injury, rash, and discoloration, Neuro: Negative for headache, weakness, numbness, tingling, and seizure, 14:09 Cardiovascular: Positive for chest pain, palpitations, Exam: 14:09 Constitutional: This is a well developed, well nourished patient who is awake, alert, rt and in no acute distress. Head/Face: Normocephalic, atraumatic. Chest/axilla: Normal chest wall appearance and motion. Nontender with no deformity. No lesions are appreciated. Cardiovascular: Regular rate and rhythm with a normal S1 and S2. No gallops, murmurs, or rubs. Normal PMI, no JVD. No pulse deficits. Respiratory: Lungs have equal breath sounds bilaterally, clear to auscultation and percussion. No rales, rhonchi or wheezes noted. No increased work of breathing, no retractions or nasal flaring. Abdomen/GI: Soft, non-tender, with normal bowel sounds. No distension or tympany. No guarding or rebound. No evidence of tenderness throughout. Skin: Warm, dry with normal turgor. Normal color with no rashes, no lesions, and no evidence of cellulitis. MS/ Extremity: Pulses equal, no cyanosis. Neurovascular intact. Full, normal range of motion. Neuro: Awake and alert, GCS 15, oriented to person, place, time, and situation. Cranial nerves II-XII grossly intact. Motor strength 5/5 in all extremities. Sensory grossly intact. Cerebellar exam normal. Normal gait. 14:09 ECG was reviewed by the Attending Physician. Vital Signs: 10:00 BP 126 / 103; Pulse 83; Resp 18; Temp 97.8; Pulse Ox 100% ; Weight 122.47 kg; Height 5 ph ft. 7 in. ; 11:30 BP 122 / 76; Pulse 82; Resp 18; Pulse Ox 97% on R/A; ph 12:30 BP 132 / 78; Pulse 76; Resp 18; Pulse Ox 98% on R/A; ph 13:32 BP 121 / 71; Pulse 75; Resp 18; Pulse Ox 96% on R/A; ph 14:40 BP 114 / 69; Pulse 84; Resp 18; Pulse Ox 97% on R/A; ph 10:00 Body Mass Index 42.29 (122.47 kg, 170.18 cm) ph MDM: 09:56 Medical Screening Exam initiated rt 14:09 Differential diagnosis: Nonspecific chest pain, ACS, atrial fibrillation, pneumonia. rt HEART Score: History: Moderately Suspicious (1), ECG: Non specific repolarization disturbance / LBTB / PM (1), Age: > 45 and < 65 years (1), Risk Factors: > or = 3 Risk factors for atherosclerotic disease (2), Troponin: < or = 1 x Normal Limit (0), Total Score = 5. The patient was given aspirin in the Emergency Department. Data reviewed: vital signs, nurses notes, lab test result(s), EKG, radiologic studies. Consideration of Admission/Observation Patient was admitted/placed on observation. Management of patient was discussed with the following: Hospitalist: Agrees to admit. Independent interpretation of the following test(s) in the Emergency Department X-Ray: My interpretation is No infiltrate seen on interpretation of x-ray images. Test considered but Not performed: CT: Low suspicion for pulmonary embolism, CT angiogram not indicated. Care significantly affected by the following chronic conditions: Hypertension, Atrial fibrillation. Counseling: I had a detailed discussion with the patient and/or guardian regarding the historical points, exam findings, and any diagnostic results supporting the discharge/admit diagnosis, lab results, radiology results, the need for further work-up and treatment in the hospital. Response to treatment: the patient's symptoms have markedly improved after treatment. 10/17 09:58 Order name: Basic Metabolic Panel; Complete Time: 11:46 rt 10/17 09:58 Order name: CBC with Diff; Complete Time: 11:46 rt 10/17 09:58 Order name: LFT's; Complete Time: 11:46 rt 10/17 09:58 Order name: NT PRO-BNP; Complete Time: 11:46 rt 10/17 09:58 Order name: Troponin HS; Complete Time: 11:46 rt 10/17 14:47 Order name: CBC with Automated Diff EDMS 10/17 14:47 Order name: CBC with Automated Diff EDMS 10/17 14:47 Order name: Comprehensive Metabolic Panel EDKY 10/17 14:47 Order name: Comprehensive Metabolic Panel EDKY 10/17 14:47 Order name: Lipid Profile EDMS 10/17 14:47 Order name: Lipid Profile ED[facility] 10/17 14:47 Order name: Troponin High Sensitivity ED[facility] 10/17 14:47 Order name: Troponin High Sensitivity [facility] 10/17 14:47 Order name: Troponin High Sensitivity [facility] 10/17 09:58 Order name: XRAY Chest (1 view); Complete Time: 10:30 rt 10/17 14:47 Order name: Echo with Doppler EDKY 10/17 14:47 Order name: Echo with Doppler EDMS 10/17 09:58 Order name: EKG; Complete Time: 09:59 rt 10/17 14:47 Order name: CONS Physician Consult EDMS 10/17 09:58 Order name: Cardiac monitoring; Complete Time: 10:06 rt 10/17 09:58 Order name: EKG - Nurse/Tech; Complete Time: 10:41 rt 10/17 09:58 Order name: IV Saline Lock; Complete Time: 10:41 rt 10/17 09:58 Order name: Labs collected and sent; Complete Time: 10:41 rt 10/17 09:58 Order name: O2 Per Protocol; Complete Time: 09:59 rt 10/17 09:58 Order name: O2 Sat Monitoring; Complete Time: 09:59 rt 10/17 10:41 Order name: Labs - recollect needed: please recollect green and lav top; Complete Time: em1 11:55 EC:09 Rate is 76 beats/min. Rhythm is irregularly irregular, A fib with No ectopy. Left axis rt deviation noted. QRS interval is normal. QT interval is normal. No Q waves. T waves are Normal. No ST changes noted. Interpreted by me. Administered Medications: No medications were administered Disposition Summary: 10/17/24 13:40 Hospitalization Ordered Notes: Hospitalization Status: Observation rt Provider: Yeison Baron rt Location: Telemetry/MedSurg (observation) rt Condition: Stable rt Problem: new rt Symptoms: have improved rt Bed/Room Type: Standard rt Room Assignment: 205(10/17/24 15:55) em1 Diagnosis - Chest pain, unspecified rt Forms: - Medication Reconciliation Form rt - SBAR form rt - Leadership Thank You Letter rt Signatures: Dispatcher [employer] EDTomas Young em1 Nathalie Singleton, RN RN ph Servando Mata MD MD rt Corrections: (The following items were deleted from the chart) 09:59 09:59 BASIC METABOLIC PANEL+C.LAB.BRZ ordered. EDMS EDMS 09:59 09:59 CBC+H.LAB.BRZ ordered. EDMS EDMS 09:59 09:59 HEPATIC FUNCTION+C.LAB.BRZ ordered. EDMS EDMS 09:59 09:59 PROBNP+C.LAB.BRZ ordered. EDMS EDMS 09:59 09:59 Troponin High Sensitivity+C.JOSE A.BRZ ordered. EDMS EDMS 15:55 13:40 rt em1
[2024-10-17] MEDS ORDERED: MORPHINE 2 MG/ML SYR IV PRN (14:42)
--- NOTE | 2024-10-17 14:51 | P.HP ---
Certification for Inpatient Patient admitted to: Observation With expected LOS: <2 Midnights Patient will require the following post-hospital care: None Practitioner: I am a practitioner with admitting privileges, knowledge of patient current condition, hospital course, and medical plan of care. Services: Services provided to patient in accordance with Admission requirements found in Title 42 Section 412.3 of the Code of Federal Regulations Patient History Date of Service: 10/17/24 Reason for admission: Chest pain rule out acute coronary syndrome History of Present Illness: Patient is a 49-year-old female with history of atrial fibrillation comes in with complains of chest pain. Patient was in the ER a few days ago with similar complaints. 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 Her EKG and troponins been negative. She continues to have some chest discomfort mainly in the sternal region. Denies any shortness of breath and diaphoresis. Patient does not have any shortness of breath with the chest pain. Clinically she is feeling much better in which she will be admitted to the hospital for observation. Allergies No Known Allergies Allergy (Verified 12/29/22 22:43) Home Medications: Aspirin 81 mg PO DAILY 09/16/14 Buspirone HCl [Buspar] 10 mg PO BEDTIME 01/10/21 Dicyclomine [Bentyl*] 10 mg PO QIDP PRN MDD 40 mg 01/10/21 Multivitamin 1 each PO DAILY 01/10/21 Cetirizine HCl [Zyrtec] 10 mg PO BEDTIME 12/29/22 Famotidine 20 mg PO BEDTIME 12/29/22 Omeprazole [Prilosec] 40 mg PO DAILY 12/29/22 Apixaban [Eliquis] 5 mg PO BID 30 Days #60 tab 12/30/22 Sotalol HCl [Betapace*] 80 mg PO BID 6AM 6PM #60 tab 01/02/23 - Past Medical/Surgical History Diabetic: No -: Hypertension -: Paroxysmal atrial fibrillation -: Chrons Disease -: Rheumatoid Arthritis -: Partial hysterectomy -: Partial resection small intestine -: section -: Appendectomy -: Cholecystectomy Psychosocial/ Personal History: Patient lives at home with her family. - Family History Father Medical History: Heart disease, Diabetes Mother Medical History: Heart disease, Diabetes - Social History Smoking Status: Former smoker Alcohol use: No CD- Drugs: No Caffeine use: No Review of Systems 10-point ROS is otherwise unremarkable Physical Examination - Vital Signs Temperature: 98 F Blood Pressure: 150/90 Pulse: 80 Respirations: 18 Pulse Ox (%): 95 - Physical Exam General: Alert, In no apparent distress, Oriented x3 HEENT: Atraumatic, PERRLA, Mucous membr. moist/pink, EOMI, Sclerae nonicteric Neck: Supple, 2+ carotid pulse no bruit, No LAD, Without JVD or thyroid abnormality Respiratory: Clear to auscultation bilaterally, Normal air movement Cardiovascular: Regular rate/rhythm, Normal S1 S2 Gastrointestinal: Normal bowel sounds, No tenderness Musculoskeletal: No tenderness Integumentary: No rashes Neurological: Normal gait, Normal speech, Normal strength at 5/5 x4 extr, Normal tone, Normal affect Lymphatics: No axilla or inguinal lymphadenopathy - Studies Laboratory Data (last 24 hrs) 10/17/24 10/17/24 11:00 11:00 WBC 4.90 Hgb 10.3 L Hct 32.1 L Plt Count 220 Sodium 143 Potassium 3.2 L BUN 8 Creatinine 0.47 L Glucose 80 Total Bilirubin 0.4 AST 14 L ALT 15 Alkaline Phosphatase 53 Assessment & Plan - Problems (Diagnosis) (1) Atrial fibrillation Current Visit: No Status: Acute Qualifiers: (2) Chest pain, rule out acute myocardial infarction Current Visit: No Status: Acute (3) Crohns disease Current Visit: No Status: Chronic Qualifiers: (4) Hypertension Current Visit: No Status: Chronic Qualifiers: (5) Rheumatoid arthritis Current Visit: No Status: Chronic Qualifiers: - Plan Plan: 1. Chest pain rule out acute coronary syndrome; serial troponins and EKG. Cardiology consultation along with echocardiogram and stress test. If these are negative then we will continue with treatment for musculoskeletal pain. 2. History of autoimmune disease including rheumatoid arthritis and Crohn's disease; continue with current treatment and rheumatology follow-up 3. Hypertension; continue with antihypertensives 4. GI DVT prophylaxis Discharge Plan: Home Plan to discharge in: 24 Hours - Advance Directives Does patient have a Living Will: No Does patient have a Durable POA for Healthcare: No - Code Status/Comfort Care Code Status Assessed: Yes Code Status: Full Code Critical Care: No Time Spent Managing PTS Care (In Minutes): 45
[2024-10-17] MEDS: NA CHLORIDE 0.9% 1,000 ML IV SCH (15:00)
[2024-10-17 16:10] VITALS: BMI 42.3
[2024-10-17] MEDS: CALCIUM GLUCONATE 1 GM IVPB 1 GM/50 ML BAG IV ONE (18:42)
[2024-10-17] MEDS: APIXABAN 5 MG TABLET PO SCH (20:37)
[2024-10-17] MEDS ORDERED: HOME MED 1 EA UNK (Buspirone Hcl [Buspar] 10 MG Tablet) PO SCH ×2 (21:00)
[2024-10-17] MEDS: BUSPIRONE HCL 5 MG TABLET PO SCH (22:13)
--- NOTE | 2024-10-17 22:18 | RAD REPORT ---
EXAM: CT Chest Angio TECHNIQUE: CT angiogram of the chest was performed following intravenous contrast administration, inc luding sagittal and coronal as well as maximum intensity projection reformats. One or more of the following dose reduction techniques were used: Automated exposure control, adjustment of the mA and k V according to patient size, and iterative reconstruction. Unless otherwise specified, incidental findings do not require dedicated imaging follow-up. INDICATION: [facility] hemoptysis/pleuritic chest pain COMPARISON: 08/13/2023, 05/25/2024. FINDINGS: LINES/TUBES: None. PULMONARY ARTERIES: Main pulmonary arteries are normal in caliber. No filling defects within the pul monary arteries to suggest pulmonary embolus. LUNGS AND AIRWAYS: The lungs and central airways are normal without focal abnormality. PLEURA: No effusion or pneumothorax. HEART AND MEDIASTINUM: The visualized thyroid gland is normal. No mediastinal, hilar, or axillary lym phadenopathy. Heart is unremarkable. No pericardial effusion. SOFT TISSUES AND BONES: No acute osseous abnormality. No significant soft tissue finding. UPPER ABDOMEN: Unremarkable. IMPRESSION: No evidence of acute central pulmonary emboli. No suspicious intrathoracic findings..
[2024-10-18] MEDS: ONDANSETRON 4 MG/2 ML VIAL IV PRN (02:47)
[2024-10-18] MEDS: SOTALOL HCL 80 MG TAB PO SCH (07:12)
[2024-10-18 07:26] LABS: Absolute Basophils 0.1 K/uL (0-0.5); Absolute Eosinophils 0.1 K/uL (0-0.5); Absolute Lymphocytes (CBC) 2.8 K/uL (0.7-4.9); Absolute Monocytes 0.7 K/uL (0.1-1.3); Absolute Neutrophil 3.9 K/uL (1.8-8.0); Basophils % 0.7 % (0-1.3); Hematocrit 37.4 % (36.0-45.0); MCH 24.8 pg (27.0-35.0); MCHC 32.1 g/dL (32.0-36.0); MCV 77.2 fL (80-100); MPV 8.6 fL (7.6-11.3); Monocytes % 8.7 % (3.3-12.3); Neutrophils % 51.6 % (41.7-73.7); Nucleated Red Blood Cells % 0.1 % (0-0); Platelets 436 thou/uL (152-406); RBC Red Blood Cell Count 4.84 M/uL (3.86-4.86); Red Cell Distribution Width 16.1 % (12.1-15.2)
[2024-10-18 07:34] LABS: Albumin 2.8 g/dL (3.4-5.0); Albumin/Globulin Ratio 0.6 (1.1-1.8); Anion Gap 6.8 mEq/L (5.0-15.0); Bilirubin Total 0.5 mg/dL (0.2-1.0); Potassium 3.8 mEq/L (3.5-5.1); Protein, Total 7.8 g/dL (6.4-8.2); Troponin High Sensitivity 6.3 pg/mL (<58.9)
[2024-10-18] MEDS ORDERED: REGADENOSON 0.4 MG/5 ML SYR IV ONE (08:59)
--- NOTE | 2024-10-18 13:20 | RAD REPORT ---
EXAM :Rest Stress Cardiac Imaging CLINICAL HISTORY: Chest pain TECHNIQUE: Rest images: 9.8 mCi technetium 99m sestamibi administered intravenously. Stress images: 28.9 mCi of technetium 99m sestamibi administered intravenously. Cardiac SPECT images obtained COMPARISON: 2019. FINDINGS: Small area of diminished radiotracer activity involves the anterior left ventricular myocardium on st ress images. Rest images demonstrate reaccumulation of radiotracer within the anterior left ventricular myocardium . Small area of diminished radiotracer activity involving the apical left ventricular myocardium could be secondary to physiologic thinning or infarct. Left ventricular ejection fraction equals 62% IMPRESSION: Small mostly reversible perfusion defect anterior left ventricular myocardium is equivocal for stress -induced ischemia. Another consideration is that it is secondary to attenuation from overlying soft tissue
--- NOTE | 2024-10-18 15:10 | EKG ---
Test Date: 2024-10-17 Test Time: 10:16:39 Parking Ramp Attendant: PH MEASUREMENT RESULTS: Intervals: Rate: 76 RI: QRSD: 78 QT: 378 QTc: 425 [place]: P: RI: QRS: -18 T: 4 INTERPRETIVE STATEMENTS: Atrial fibrillation Abnormal ECG Compared to ECG 10/10/2024 22:57:18 Sinus rhythm no longer present Electronically Signed On 10-18-24 15:06:52 FRETTED INSTRUMENT INSPECTOR by Avery Holt
--- NOTE | 2024-10-18 15:50 | ECHO ---
HEIGHT: 5 ft 7 in WEIGHT: 270 lb 0.002 oz DATE OF STUDY: 10/18/[address]: Yeison Baron MD 2-DIMENSIONAL: YES M.MODE: YES DOPPLER: YES COLOR FLOW: YES TDS: NO PORTABLE: YES DEFINITY: NO BUBBLE STUDY: NO DIAGNOSIS: CHEST PAIN CARDIAC HISTORY: CATHERIZATION: SURGERY: PROSTHETIC VALVE: PACEMAKER: MEASUREMENTS (cm) DIASTOLIC (NORMALS) SYSTOLIC (NORMALS) IVSd 1.1 (0.6-1.2) LA Diam 3.6 (1.9-4.0) LVEF 55-60% LVIDd 4.0 (3.5-5.7) LVIDs 3.0 (2.0-3.5) %FS 26% LVPWd 1.3 (0.6-1.2) Ao Diam 3.2 (2.0-3.7) 2 DIMENSIONAL ASSESSMENT: RIGHT ATRIUM: NORMAL LEFT ATRIUM: NORMAL RIGHT VENTRICLE: NORMAL LEFT VENTRICLE: NORMAL TRICUSPID VALVE: MILD TRICUSPID REGURGITATION MITRAL VALVE: NORMAL PULMONIC VALVE: NORMAL AORTIC VALVE: NORMAL PERICARDIAL EFFUSION: NONE AORTIC ROOT: NORMAL LEFT VENTRICULAR WALL MOTION: NORMAL. ATRIAL FIBRILLATION. DOPPLER/COLOR FLOW: SEE BELOW. COMMENTS: 1. NORMAL LEFT VENTRICULAR EJECTION FRACTION 55-60% WITH NORMAL WALL MOTION. 2. MILD TRICUSPID REGURGITATION. 3. ATRIAL FIBRILLATION. TECHNOLOGIST: KENNY SANTANA
--- NOTE | 2024-10-18 15:53 | TREADPHA ---
DX: CHEST PAIN Date of Study: 10/18/2024 Ht: 5' 7 " Wt: 270 lb 0.002 oz Consulting Physician: LARRY MEDICATIONS: ELIQUIS, BUSPAR, BETAPACE HISTORY: ABLATION, CHRONS, ANXIETY, NO KNOWN DRUG ALLERGIES PHYSICIAL EXAMINATION: RESTING B.P.: 141/81 RESTING H.R.: 82 RESTING EKG: ATRIAL FIBRILLATION WITH PREMATURE VENTRICULAR COMPLEXES. PROTOCOL: LEXISCAN EXERCISE TIME: 3:30 B.P. AT PEAK STRESS: 189/109 IMPRESSION: LEXISCAN INJECTED. CARDIOLITE INJECTED. SEE NUCLEAR MEDICINE REPORT. NO CHEST PAIN. COMPLAINTS OF HEADACHE AND FUNNY FEELING. RHYTHM STAYED ATRIAL FIBRILLATION. NO EKG CHANGES OF ISCHEMIA WITH LEXISCAN.
--- NOTE | 2024-10-18 18:24 | CON ---
Date of Consultation: 10/18/2024 Reason For Consultation: Chest pain and abnormal stress test. History Of Present Illness: A 49-year-old female, history of atrial fibrillation, comes in with ches t pain, pressure like, along with dyspnea on exertion, and extremely short of breath to minimal activ ities. We did a stress test on her and there is reversible anterior ischemia. She also has problem with atrial fibrillation, on sotalol. She had ablation in the past, but still it is not controlled. Past Medical History: As outlined above in the HPI. Medications: Refer reconciliation sheet for detailed list. Allergies: NO KNOWN DRUG ALLERGIES. Family History: No premature coronary artery disease or cancer. Social History: She does not smoke or drink. Does not use any drugs. She is an ex-smoker. Review of Systems: All systems reviewed, they were negative except as mentioned in HPI. Physical Examination: Vital Signs: Reviewed. Head and Neck: Pupils are equal, reactive to light. Intact eye movements. No JVD. No cervical lym phadenopathy. Neck is supple. Thyroid is not enlarged. Lungs: Clear to auscultation bilaterally. No rhonchi, wheezing, or crackles. No accessory muscle u se. Heart: Irregularly irregular. No extra sounds. Abdomen: Soft, nontender. Bowel sounds positive. No organomegaly. No masses or hernia. No rigidi ty or rebound. Extremities: No edema, clubbing, cyanosis. Intact pulses. Skin: No rash. No nodule. Neurologic: Alert, awake, oriented x3. No acute focal deficit appreciated. Investigations: BUN is 10, creatinine 0.76, and troponin x3 are negative and hemoglobin is 12.0, and stress test showed reversible anterior ischemia. Assessment/plan: 1.Chest pain with abnormal stress test showing reversible anterior ischemia. She is very short of b reath. Keep n.p.o., plan for coronary angiogram. 2.Atrial fibrillation. Still in atrial fibrillation. Increase sotalol to 120 mg twice a day and ke ep her on Eliquis. Plan for NORMA-guided cardioversion early Monday morning. 3.Shortness of breath, probably due to the atrial fibrillation and possible coronary artery disease. Obtain an echo if not already done and coronary angiogram as above. 4.Anemia, mild and stable. SR/MODL Voice ID: [id number] Report ID: [id number]
--- NOTE | 2024-10-18 20:52 | P.PN ---
Date of Service: 10/18/24 subjective No reported chest pain, n.p.o. for stress test today Review of Systems 10-point ROS is otherwise unremarkable Physical Examination - Vital Signs Reviewed - Physical Exam General: Alert, In no apparent distress, Oriented x3 HEENT: Atraumatic, PERRLA, Mucous membr. moist/pink, EOMI, Sclerae nonicteric Neck: Supple, 2+ carotid pulse no bruit, No LAD, Without JVD or thyroid abnormality Respiratory: Clear to auscultation bilaterally, Normal air movement Cardiovascular: irregular rate/rhythm, Normal S1 S2 Gastrointestinal: Normal bowel sounds, No tenderness Musculoskeletal: No tenderness Integumentary: No rashes Neurological: Normal gait, Normal speech, Normal strength at 5/5 x4 extr, Normal tone, Lymphatics: No axilla or inguinal lymphadenopathy Assessment & Plan - Problems (Diagnosis) (1) Atrial fibrillation Current Visit: No Status: Acute Qualifiers: (2) Chest pain, rule out acute myocardial infarction Current Visit: No Status: Acute (3) Crohns disease Current Visit: No Status: Chronic Qualifiers: (4) Hypertension Current Visit: No Status: Chronic Qualifiers: (5) Rheumatoid arthritis Current Visit: No Status: Chronic Qualifiers: - Plan Plan: 1. Chest pain rule out acute coronary syndrome; serial troponins and EKG. Cardiology consultation along with echocardiogram and stress test. If these are negative then we will continue with treatment for musculoskeletal pain. 2. History of autoimmune disease including rheumatoid arthritis and Crohn's dis ease; continue with current treatment and rheumatology follow-up 3. Hypertension; continue with antihypertensives 4. GI DVT prophylaxis 5. Plan for cardiac cath, cardioversion on Monday, n.p.o. Monday night 6. Discontinue Eliquis, transition to Lovenox, increase sotalol to 120 twice daily Discharge Plan: Home Plan to discharge in: 24 Hours - Advance Directives Does patient have a Living Will: No Does patient have a Durable POA for Healthcare: No - Code Status/Comfort Care Code Status Assessed: Yes Code Status: Full Code Critical Care: No Time Spent Managing PTS Care (In Minutes): 35
[2024-10-19] MEDS: SOTALOL HCL 80 MG TAB PO SCH (07:28)
[2024-10-19] MEDS: ENOXAPARIN 40 MG/0.4 ML SQ SCH (08:11)
[2024-10-19] MEDS: ACETAMINOPHEN 500 MG TAB PO PRN (08:14)
[2024-10-19 08:32] LABS: Albumin 2.7 g/dL (3.4-5.0); Albumin/Globulin Ratio 0.6 (1.1-1.8); Anion Gap 7.5 mEq/L (5.0-15.0); Bilirubin Total 0.6 mg/dL (0.2-1.0); Globulin 4.7 g/dL (2.3-3.5); Magnesium 1.6 mg/dL (1.6-2.4); Potassium 3.5 mEq/L (3.5-5.1); Protein, Total 7.4 g/dL (6.4-8.2)
[2024-10-19 08:54] LABS: Absolute Monocytes 1.1 K/uL (0.1-1.3); Absolute Neutrophil 3.7 K/uL (1.8-8.0); Basophils % 0.5 % (0-1.3); Eosinophils % 0.4 % (0-4.4); Hematocrit 32.4 % (36.0-45.0); Hemoglobin 10.5 g/dL (12.0-15.0); Lymphocytes % 28.6 % (15.3-44.8); MCHC 32.5 g/dL (32.0-36.0); MCV 76.8 fL (80-100); MPV 8.9 fL (7.6-11.3); Monocytes % 15.7 % (3.3-12.3); Neutrophils % 54.8 % (41.7-73.7); Nucleated Red Blood Cells % 0.1 % (0-0); Platelets 368 thou/uL (152-406); RBC Red Blood Cell Count 4.22 M/uL (3.86-4.86); Red Cell Distribution Width 16.2 % (12.1-15.2)
[2024-10-19] MEDS: predniSONE 20 MG TAB PO ONE (18:26)
[2024-10-19] MEDS: CETIRIZINE HCL 5 MG TABLET PO ONE (18:27)
[2024-10-20 07:13] LABS: Absolute Basophils 0.1 K/uL (0-0.5); Absolute Monocytes 0.5 K/uL (0.1-1.3); Absolute Neutrophil 2.4 K/uL (1.8-8.0); Basophils % 1.3 % (0-1.3); Eosinophils % 0.3 % (0-4.4); Hematocrit 32.9 % (36.0-45.0); Hemoglobin 10.6 g/dL (12.0-15.0); Lymphocytes % 39.5 % (15.3-44.8); MCH 24.6 pg (27.0-35.0); MCHC 32.2 g/dL (32.0-36.0); MCV 76.4 fL (80-100); MPV 8.3 fL (7.6-11.3); Monocytes % 10.7 % (3.3-12.3); Neutrophils % 48.2 % (41.7-73.7); Platelets 370 thou/uL (152-406); Red Cell Distribution Width 16.2 % (12.1-15.2)
[2024-10-20 07:44] LABS: Albumin 2.7 g/dL (3.4-5.0); Albumin/Globulin Ratio 0.6 (1.1-1.8); Anion Gap 7.9 mEq/L (5.0-15.0); Bilirubin Total 0.2 mg/dL (0.2-1.0); Globulin 4.7 g/dL (2.3-3.5); Magnesium 1.8 mg/dL (1.6-2.4); Potassium 3.9 mEq/L (3.5-5.1); Protein, Total 7.4 g/dL (6.4-8.2)
[2024-10-20 09:07] LABS: Differential Total Cells Count 100
[2024-10-20 09:08] LABS: Atypical Lymphocytes 11 %; Blood Morphology Comment NOT SEEN (NOT SEEN); Lymphocytes 26 % (15-42); Monocytes 10 % (0-10); Platelet Estimate ADEQ; Segmented Neutrophils 52 % (40-80)
--- NOTE | 2024-10-20 14:40 | P.PN ---
Date of Service: 10/19/24 subjective Sotalol dose increased, patient transition to normal sinus rhythm, Patient scheduled for cardiac cath on Monday, Review of Systems 10-point ROS is otherwise unremarkable Physical Examination - Vital Signs Reviewed - Physical Exam General: Alert, oriented, no acute distress noted HEENT: Atraumatic, PERRLA, Mucous membr. moist/pink, EOMI, Sclerae nonicteric Neck: Supple, 2+ carotid pulse no bruit, No LAD, Respiratory: Clear to auscultation bilaterally, Normal air movement Cardiovascular: irregular rate/rhythm, Normal S1 S2 Gastrointestinal: Normal bowel sounds, No tenderness Musculoskeletal: No tenderness Integumentary: No rashes Neurological: Normal gait, Normal speech, Normal strength at 5/5 x4 extr, Normal tone, Assessment & Plan - Problems (Diagnosis) (1) Atrial fibrillation Current Visit: No Status: Acute Qualifiers: (2) Chest pain, rule out acute myocardial infarction Current Visit: No Status: Acute (3) Crohns disease Current Visit: No Status: Chronic Qualifiers: (4) Hypertension Current Visit: No Status: Chronic Qualifiers: (5) Rheumatoid arthritis Current Visit: No Status: Chronic Qualifiers: - Plan Plan: 1. Chest pain rule out acute coronary syndrome; serial troponins and EKG. Cardiology consultation along with echocardiogram and stress test. If these are negative then we will continue with treatment for musculoskeletal pain. 2. History of autoimmune disease including rheumatoid arthritis and Crohn's disease; continue with current treatment and rheumatology follow-up 3. Hypertension; continue with antihypertensives 4. GI DVT prophylaxis 5. Plan for cardiac cath, cardioversion on Monday, n.p.o. Monday night 6. Discontinue Eliquis, transition to Lovenox, increase sotalol to 120 twice daily Discharge Plan: Home Plan to discharge in: 24 Hours - Advance Directives Does patient have a Living Will: No Does patient have a Durable POA for Healthcare: No - Code Status/Comfort Care Code Status Assessed: Yes Code Status: Full Code Critical Care: No Time Spent Managing PTS Care (In Minutes): 30
--- NOTE | 2024-10-20 14:43 | P.PN ---
Date of Service: 10/20/24 subjective Sotalol dose increased, patient transition to normal sinus rhythm, N.p.o. after midnight cardiac cath No reported chest pain, shortness of breath, Review of Systems 10-point ROS is otherwise unremarkable Physical Examination - Vital Signs Reviewed - Physical Exam General: Awake, alert, oriented, afebrile HEENT: Atraumatic, PERRLA, Neck: Supple, Respiratory: Clear to auscultation bilaterally, equal unlabored Cardiovascular: irregular rate/rhythm, Normal S1 S2 Gastrointestinal: Normal bowel sounds, nontender Musculoskeletal: No tenderness Integumentary: No rashes Neurological: Normal gait, Normal speech, Normal strength at 5/5 x4 extr, Assessment & Plan - Problems (Diagnosis) (1) Atrial fibrillation Current Visit: No Status: Acute Qualifiers: (2) Chest pain, rule out acute myocardial infarction Current Visit: No Status: Acute (3) Crohns disease Current Visit: No Status: Chronic Qualifiers: (4) Hypertension Current Visit: No Status: Chronic Qualifiers: (5) Rheumatoid arthritis Current Visit: No Status: Chronic Qualifiers: - Plan Plan: 1. Chest pain rule out acute coronary syndrome; serial troponins and EKG. Cardiology consultation along with echocardiogram and stress test. If these are negative then we will continue with treatment for musculoskeletal pain. 2. History of autoimmune disease including rheumatoid arthritis and Crohn's disease; continue with current treatment and rheumatology follow-up 3. Hypertension; continue with antihypertensives 4. GI DVT prophylaxis 5. Plan for cardiac cath, cardioversion on Monday, n.p.o. Monday night 6. Discontinue Eliquis, transition to Lovenox, increase sotalol to 120 twice daily Discharge Plan: Home Plan to discharge in: 24 Hours - Advance Directives Does patient have a Living Will: No Does patient have a Durable POA for Healthcare: No - Code Status/Comfort Care Code Status Assessed: Yes Code Status: Full Code Critical Care: No Time Spent Managing PTS Care (In Minutes): 30
[2024-10-20] MEDS: METHYLPREDNISOLONE 40 MG INJ IV ONE (16:31)
[2024-10-20] MEDS: CETIRIZINE HCL 5 MG TABLET PO ONE (18:03)
[2024-10-21 06:44] LABS: Absolute Monocytes 0.6 K/uL (0.1-1.3); Absolute Neutrophil 2.6 K/uL (1.8-8.0); Basophils % 0.4 % (0-1.3); Hematocrit 33.6 % (36.0-45.0); Hemoglobin 10.9 g/dL (12.0-15.0); Lymphocytes % 38.6 % (15.3-44.8); MCHC 32.4 g/dL (32.0-36.0); MCV 77.1 fL (80-100); MPV 8.5 fL (7.6-11.3); Nucleated Red Blood Cells % 0.1 % (0-0); Platelets 400 thou/uL (152-406); RBC Red Blood Cell Count 4.36 M/uL (3.86-4.86)
[2024-10-21 06:58] LABS: Albumin 2.8 g/dL (3.4-5.0); Albumin/Globulin Ratio 0.6 (1.1-1.8); Anion Gap 6.9 mEq/L (5.0-15.0); Bilirubin Total 0.2 mg/dL (0.2-1.0); Magnesium 1.9 mg/dL (1.6-2.4); Potassium 3.9 mEq/L (3.5-5.1); Protein, Total 7.8 g/dL (6.4-8.2)
[2024-10-21] MEDS: CEFTRIAXONE 1,000 MG in NA CHLORIDE 0.9% 50 ML IVPB ONE (11:34)
[2024-10-21] MEDS ORDERED: HEPA 1000U/500MLS 1,000 UNIT/500 ML BAG IV ONE (12:01)
[2024-10-21] MEDS ORDERED: LIDOCAINE 1% 20 ML MDV ONE (12:01)
[2024-10-21] MEDS: NA CHLORIDE 0.9% 500 ML ONE (12:13)
[2024-10-21] MEDS ORDERED: HEPARIN 10,000 UNIT/10 ML VIAL IV ONE (12:19)
[2024-10-21] MEDS ORDERED: MIDAZOLAM HCL 2 MG/2 ML INJ ONE (12:19)
[2024-10-21] MEDS ORDERED: ATROPINE SULF 1 MG/10 ML SYR IV ONE (12:19)
[2024-10-21] MEDS ORDERED: FENTANYL CITR 100 MCG/2 ML ONE (12:20)
[2024-10-21] MEDS ORDERED: NALOXONE 0.4 MG/ML VIAL ONE (12:20)
[2024-10-21] MEDS ORDERED: CLOPIDOGREL 75 MG TABLET ONE (12:20)
[2024-10-21] MEDS ORDERED: HEPARIN 5000 UNIT/ML 1 ML VIAL ONE (12:20)
[2024-10-21] MEDS ORDERED: FLUMAZENIL 0.1 MG/ML (5 mL VIAL) IV ONE (12:20)
[2024-10-21] MEDS ORDERED: TICAGRELOR 90 MG TABLET PO ONE (12:20)
[2024-10-21] MEDS ORDERED: ASPIRIN 325 MG TAB ONE (12:21)
[2024-10-21 19:22] VITALS: O2SAT 98
[2024-10-21] MEDS: OSELTAMIVIR 75 MG CAP PO SCH (20:33)
[2024-10-21] MEDS: CETIRIZINE HCL 5 MG TABLET PO PRN (20:34)
[2024-10-21] MEDS: KETOROLAC 30 MG/ML INJ IV ONE (22:53)
[2024-10-22 06:37] LABS: Absolute Basophils 0.1 K/uL (0-0.5); Absolute Lymphocytes (CBC) 2.6 K/uL (0.7-4.9); Absolute Monocytes 0.5 K/uL (0.1-1.3); Absolute Neutrophil 2.6 K/uL (1.8-8.0); Eosinophils % 0.5 % (0-4.4); Hematocrit 38.2 % (36.0-45.0); Hemoglobin 12.3 g/dL (12.0-15.0); Lymphocytes % 45.2 % (15.3-44.8); MCH 25.3 pg (27.0-35.0); MCHC 32.1 g/dL (32.0-36.0); MCV 78.7 fL (80-100); MPV 8.8 fL (7.6-11.3); Monocytes % 8.1 % (3.3-12.3); Neutrophils % 45.2 % (41.7-73.7); Nucleated Red Blood Cells % 0.1 % (0-0); Platelets 216 thou/uL (152-406); RBC Red Blood Cell Count 4.86 M/uL (3.86-4.86); Red Cell Distribution Width 16.9 % (12.1-15.2)
[2024-10-22 06:40] LABS: Albumin 2.7 g/dL (3.4-5.0); Albumin/Globulin Ratio 0.6 (1.1-1.8); Anion Gap 9.9 mEq/L (5.0-15.0); Bilirubin Total 0.3 mg/dL (0.2-1.0); Globulin 4.9 g/dL (2.3-3.5); Magnesium 1.9 mg/dL (1.6-2.4); Potassium 3.9 mEq/L (3.5-5.1); Protein, Total 7.6 g/dL (6.4-8.2)
[2024-10-22 07:36] LABS: Blood Morphology Comment NOT SEEN (NOT SEEN); Platelet Estimate ADEQ; Platelets Clumped FEW; White Blood Cell Scan OK (OK)
[2024-10-22 08:31] VITALS: TEMP 98.3
--- NOTE | 2024-10-22 10:22 | P.PN ---
Date of Service: 10/21/24 Subjective Pt Is doing well. Has an upper respiratory complaints. Patient feels a little congested. Will still proceed with cardiac catheterization if this is negative she should be able go home with supportive care for upper respiratory infection. Physical Examination - Vital Signs reviewed - Physical Exam General: Alert, In no apparent distress, Oriented x3 HEENT: within normal limits Respiratory: Clear to auscultation bilaterally, Normal air movement Cardiovascular: Regular rate/rhythm, Normal S1 S2 Gastrointestinal: Normal bowel sounds, No tenderness Musculoskeletal: No tenderness Integumentary: No rashes Neurological: No focal deficits Assessment & Plan - Problems (Diagnosis) (1) Atrial fibrillation Current Visit: No Status: Acute Qualifiers: (2) Chest pain, rule out acute myocardial infarction Current Visit: No Status: Acute (3) Crohns disease Current Visit: No Status: Chronic Qualifiers: (4) Hypertension Current Visit: No Status: Chronic Qualifiers: (5) Rheumatoid arthritis Current Visit: No Status: Chronic Qualifiers: - Plan Plan: 1. Chest pain rule out acute coronary syndrome; serial troponins and EKG. stress test showed some reversible ischemia so we will proceed with cardiac catheterization that will be done today. If no abnormality that patient should be able to discharge home. Patient was in AFib and patient has converted to a sinus rhythm. Continue with sotalol 120 mg b.i.d. and will resume anticoagulation. 2. History of autoimmune disease including rheumatoid arthritis and Crohn's disease; continue with current treatment and rheumatology follow-up 3. Hypertension; continue with antihypertensives 4. Upper respiratory infection; continue with supportive care with medication for congestion and will possibly do antibiotic. Patient can go home and continue with medication for supportive care at discharge. Spoke with nursing staff and I did relate to them that patient can discharge after cardiac catheterization is done we can continue with supportive care for congestion and an for upper respiratory infection. Resume medications for atrial fibrillation at discharge as well. As long as the cardiac catheterization did not show any worrisome findings patient should discharge after the heart catheterization as ordered on nursing order. Discharge Plan: Home Plan to discharge in: 24 Hours - Advance Directives Does patient have a Living Will: No Does patient have a Durable POA for Healthcare: No - Code Status/Comfort Care Code Status Assessed: Yes Code Status: Full Code Critical Care: No Time Spent Managing PTS Care (In Minutes): 45
--- NOTE | 2024-10-22 11:01 | P.DS ---
Admission Date: 10/18/24 Discharge Date: 10/22/24 Reason for Admission: Chest pain rule out acute coronary syndrome Consultations: Dr. Dasilva Procedures: Left heart catheterization Brief History of Present Illness: Patient is a 49-year-old female with history of atrial fibrillation comes in with complains of chest pain. Patient was in the ER a few days ago with similar complaints. At that time, she was advised to follow-up with her PCP and tobacco hanger. Her EKG and troponins been negative. She continues to have some chest discomfort mainly in the sternal region. Denies any shortness of breath and diaphoresis. Patient does not have any shortness of breath with the chest pain. Clinically she is feeling much better in which she will be admitted to the hospital for observation. <Kim Geiger - Last Filed: 10/22/24 10:56> Admission Date: 10/18/24 Discharge Date: 10/24/24 <JeovanyTIANNA - Last Filed: 10/24/24 06:52> Disposition: ROUTINE DISCHARGE Discharge Condition: GOOD Vital Signs/Physical Exam: Temp Pulse Resp BP Pulse Ox 98.3 F 62 24 H 165/86 H 94 10/22/24 08:00 10/22/24 08:00 10/22/24 08:00 10/22/24 08:00 10/22/24 08:00 General: Alert, In no apparent distress, Oriented x3 HEENT: Atraumatic, Normocephalic Neck: Supple Respiratory: Clear to auscultation bilaterally, Other (dry cough) Cardiovascular: Normal pulses, Regular rate/rhythm, Normal S1 S2 Capillary refill: <2 Seconds Gastrointestinal: Soft and benign Musculoskeletal: No clubbing, No swelling Integumentary: No rashes Neurological: Normal speech, Normal tone, Normal affect Lymphatics: No axilla or inguinal lymphadenopathy External genitalia: Deferred Rectal: Deferred Laboratory Data at Discharge: WBC 5.70 thou/uL (4.3-10.9) 10/22/24 06:00 Hgb 12.3 g/dL (12.0-15.0) D 10/22/24 06:00 Hct 38.2 % (36.0-45.0) 10/22/24 06:00 Plt Count 216 thou/uL (152-406) D 10/22/24 06:00 Sodium 140 mEq/L (136-145) 10/22/24 06:00 Potassium 3.9 mEq/L (3.5-5.1) 10/22/24 06:00 BUN 14 mg/dL (7-18) 10/22/24 06:00 Creatinine 0.75 mg/dL (0.55-1.02) 10/22/24 06:00 Glucose 90 mg/dL (74-106) 10/22/24 06:00 Magnesium 1.9 mg/dL (1.6-2.4) 10/22/24 06:00 Total Bilirubin 0.3 mg/dL (0.2-1.0) 10/22/24 06:00 AST 21 U/L (15-37) 10/22/24 06:00 ALT 30 U/L (13-56) 10/22/24 06:00 Alkaline Phosphatase 58 U/L (45-117) 10/22/24 06:00 Triglycerides 124 mg/dL (<150) 10/18/24 06:14 Cholesterol 167 mg/dL (<200) 10/18/24 06:14 HDL Cholesterol 45 mg/dL (40-60) 10/18/24 06:14 Cholesterol/HDL Ratio 3.71 10/18/24 06:14 <Geiger,Kim Phil - Last Filed: 10/22/24 10:56> Vital Signs/Physical Exam: Temp Pulse Resp BP Pulse Ox 98.3 F 68 22 H 134/81 97 10/22/24 12:00 10/22/24 12:00 10/22/24 12:00 10/22/24 12:00 10/22/24 12:00 Laboratory Data at Discharge: WBC 5.70 thou/uL (4.3-10.9) 10/22/24 06:00 Hgb 12.3 g/dL (12.0-15.0) D 10/22/24 06:00 Hct 38.2 % (36.0-45.0) 10/22/24 06:00 Plt Count 216 thou/uL (152-406) D 10/22/24 06:00 Sodium 140 mEq/L (136-145) 10/22/24 06:00 Potassium 3.9 mEq/L (3.5-5.1) 10/22/24 06:00 BUN 14 mg/dL (7-18) 10/22/24 06:00 Creatinine 0.75 mg/dL (0.55-1.02) 10/22/24 06:00 Glucose 90 mg/dL (74-106) 10/22/24 06:00 Magnesium 1.9 mg/dL (1.6-2.4) 10/22/24 06:00 Total Bilirubin 0.3 mg/dL (0.2-1.0) 10/22/24 06:00 AST 21 U/L (15-37) 10/22/24 06:00 ALT 30 U/L (13-56) 10/22/24 06:00 Alkaline Phosphatase 58 U/L (45-117) 10/22/24 06:00 Triglycerides 124 mg/dL (<150) 10/18/24 06:14 Cholesterol 167 mg/dL (<200) 10/18/24 06:14 HDL Cholesterol 45 mg/dL (40-60) 10/18/24 06:14 Cholesterol/HDL Ratio 3.71 10/18/24 06:14 <TIANNA Thayer - Last Filed: 10/24/24 06:52> Diet: AHA Activity: Fall precautions <Kim Geiger - Last Filed: 10/22/24 10:56> <TIANNA Thayer - Last Filed: 10/24/24 06:52> Home Medications: Buspirone HCl [Buspar] 10 mg PO BEDTIME 01/10/21 Dicyclomine [Bentyl*] 10 mg PO QIDP PRN MDD 40 mg 01/10/21 Famotidine 20 mg PO BEDTIME 12/29/22 Omeprazole [Prilosec] 40 mg PO DAILY 12/29/22 Apixaban [Eliquis] 5 mg PO BID 30 Days #60 tab 12/30/22 Buspirone HCl [Buspar*] 10 mg PO BEDTIME #60 tab 10/21/24 Cetirizine HCl [Zyrtec*] 10 mg PO DAILY PRN 10/22/24 Oseltamivir [Tamiflu*] 75 mg PO BID #8 cap 10/22/24 Sotalol HCl [Betapace*] 80 mg PO BID #90 tab 10/22/24 New Medications: Sotalol HCl [Betapace*] 80 mg PO BID #90 tab Buspirone HCl [Buspar*] 10 mg PO BEDTIME #60 tab Oseltamivir [Tamiflu*] 75 mg PO BID #8 cap Physician Discharge Instructions: Atrial fibrillation with rapid ventricular response probably incited by Influenza A. Converted on Sotalol 80mg po BID. Will discharge home with Tamiflu 75mg po BID x 8 additional doses (rec'd 2 inpatient) and will continue Sotalol as scheduled. Ms. Guardado should follow up with her PCP and Dr. Dasilva in 2 weeks. May take Diabetic tussin as directed to help symptoms. -DC IV and DC home -Follow-up with PCP in 1 to 2 weeks -Follow-up with Cardiology in 1 to 2 weeks -Please call Dr. Baron at [phone] if any questions regarding hospital stay -Please call nursing station at [phone] if any nursing or medication questions -Return to the emergency room if symptoms worsen Followup: Jeff Dasilva MD [ACTIVE - CAN ADMIT] - 1-2 Weeks NONE,NONE [Primary Care Provider] -
[2024-10-22 12:22] VITALS: BP 134/81
--- NOTE | 2024-10-23 22:58 | OP ---
Date of Procedure: 10/21/2024 Surgeon: Jeff Dasilva Procedure Performed: Left heart catheterization with selective coronary angiogram. Indication For Procedure: Unstable angina, abnormal stress test. Complications: None. Estimated Blood Loss: Less than 50 cc. Access: Right radial, closed by TR band. Sedation Time: 20 minutes with 1 of Versed and 25 fentanyl. Description Of Procedure: After risks, benefits, and alternatives were explained to the patient, pat ient agreed to proceed with procedure and signed informed consent. The patient was moved back to the minilab operator, prepped and draped in a sterile fashion. Time-out was performed. Sedation was administer ed. Next, right radial access was obtained using ultrasound-guided micropuncture technique. Hydes 4 catheter was advanced over a J-wire to the LV cavity. LVEDP was obtained. Pullback did not show an y gradient. Same catheter was used for selective angiogram of the left and right coronary systems. At the end of procedure, catheter was removed over a J-wire and sheath was removed. TR band was appl ied and hemostasis was achieved and patient was moved back to recovery in stable condition. Findings: 1. Left main: Normal. 2. LAD: Normal. 3. Left circ with a proximal 20% disease and mild luminal irregularities. 4. RCA: Normal. 5. LVEDP 21 mmHg. Assessment And Plan: 1. Normal coronaries with mild left circumflex disease with mildly elevated filling pressure. 2. The plan is to continue medical management. RAUL/NADEEM Voice ID: [id number] Report ID: [id number]
--- NOTE | 2024-10-29 12:48 | EKG ---
Test Date: 2024-10-18 Test Time: 19:56:30 Machine Whitener: JACK MEASUREMENT RESULTS: Intervals: Rate: 73 SD: 148 QRSD: 80 QT: 358 QTc: 394 [place]: P: 46 SD: 148 QRS: -2 T: 11 INTERPRETIVE STATEMENTS: Normal sinus rhythm Possible Left atrial enlargement T wave abnormality, consider anterior ischemia Abnormal ECG Compared to ECG 10/17/2024 10:16:39 T-wave abnormality now present Possible ischemia now present Atrial fibrillation no longer present Electronically Signed On 10-29-24 12:27:22 LUMBER BUYER by Jeff Dasilva
== END 2024-10-22 12:31 | disposition home or self-care (01) | DRG 287 ==
LOC: ER 09:53 → ERHOLD 14:35 → 2ND 16:24 → OBSVTOIN 10-18 17:55
PROVIDERS: ADMIT Hospitalist; ATTEND Internal Medicine
PROC: B2111ZZ Fluoroscopy of Multiple Coronary Arteries using Low Osmolar Contrast (ICD-10-PCS; principal; 2024-10-21)
PROC: 4A023N7 Measurement of Cardiac Sampling and Pressure, Left Heart, Percutaneous Approach (ICD-10-PCS; 2024-10-21)
DX: I48.0 Paroxysmal atrial fibrillation (principal); K50.90 Crohn's disease, unspecified, without complications; J10.1 Influenza due to other identified influenza virus with other respiratory manifestations; D64.9 Anemia, unspecified; I10 Essential (primary) hypertension; M06.9 Rheumatoid arthritis, unspecified; Z79.82 Long term (current) use of aspirin; Z79.01 Long term (current) use of anticoagulants; Z90.49 Acquired absence of other specified parts of digestive tract; Z87.891 Personal history of nicotine dependence; Z79.899 Other long term (current) drug therapy; Z86.718 Personal history of other venous thrombosis and embolism
CPT/HCPCS: 36415; 71045; 71275; 76937; 78452; 80048; 80053; 80061; 80076; 83735; 83880; 84484; 85025; 87804; 93005; 93017; 93306; 93458; 99152; 99153; 99285; A9500; C1893; G0378; J0461; J0612; J1644; J1650; J2003; J2250; J2310; J2405; J2785; J2919; J3010; J7030; J7040; J7512; Q9967

== ENCOUNTER 2024-10-26 19:19 | Emergency (ER) | payer OTHER ==
--- NOTE | 2024-10-26 21:27 | RAD REPORT ---
EXAMINATION: UPPER EXTREMITY VENOUS UNILATE CLINICAL INDICATION: Female, 49 years old. [facility] MAIN pain after Heart Cath ;Pain Bed Name: 16 TECHNIQUE: Complete venous duplex sonography of the right upper extremity was performed. The examinat ion included compression for vein patency, color Doppler imaging and flow augmentation in response to distal compression of the internal jugular, brachiocephalic, subclavian, axillary, brachial, radia l, ulnar, cephalic and basilic veins. COMPARISON: No prior exam. FINDINGS: Duplex sonography testing of the veins of the right upper extremity is completed. Color flow imaging shows all veins to be compressible with appropriate color filling. Pulsatile and phasic flow is present within the upper extremity deep and superficial veins examined. IMPRESSION: There is no deep vein or superficial vein thrombosis.
--- NOTE | 2024-10-26 21:28 | RAD REPORT ---
EXAMINATION: Upper Ext Artery Uni Jerome CLINICAL INDICATION: Female, 49 years old. [facility] MA[facility] Right arm Right arm pain after puncture Bed Name: 16 TECHNIQUE: Arterial duplex ultrasound was performed of the Right upper extremity with real-time, colo r-flow, and spectral wave Doppler evaluation. COMPARISON: No prior exam. FINDINGS: No significant plaque throughout the evaluated arterial system. Triphasic waveforms are seen through out the evaluated Right upper extremity arterial system, to the level of the brachial artery. Triphasic radial and ulnar artery waveform with some spectral broadening.. No other suspicious findin gs. IMPRESSION: No evidence of significant peripheral vascular disease.
--- NOTE | 2024-10-26 21:54 | ER ---
Nurse's Notes [facility] Name: Dori Guardado Age: 49 yrs Sex: Female : 1975 Arrival Date: 10/26/2024 Time: 19:19 Bed 16 Private MD: Diagnosis: Acute left forearm pain , pain at the arterial puncture site, Acute pain After Heart Catheterization Presentation: 10/26 19:31 Chief complaint: Patient states: I HAD A HEART CATH ON MONDAY AND I AM HAVING PAIN AND ha1 SWELLING AT THE SITE. 19:31 Coronavirus screen: Client denies travel out of the [place] in the last 14 days. Ebola ha1 Screen: No symptoms or risks identified at this time. Initial Sepsis Screen: Does the patient meet any 2 criteria? No. Patient's initial sepsis screen is negative. Does the patient have a suspected source of infection? No. Patient's initial sepsis screen is negative. Risk Assessment: Do you want to hurt yourself or someone else? Patient reports no desire to harm self or others. Onset of symptoms was October 26, 2024. 19:31 Method Of Arrival: Ambulatory ha1 19:31 Acuity: KASH 4 ha1 Triage Assessment: 22:10 General: Appears in no apparent distress. comfortable, Behavior is calm, cooperative, cp4 appropriate for age. 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 - Infectious Disease History:: Denies. - Social history:: Smoking status: Patient denies any tobacco usage or history of. - Family history:: not pertinent. Screenin:31 [facility] ED Fall Risk Assessment (Adult) History of falling in the last 3 months, ha1 including since admission No falls in past 3 months (0 pts) Confusion or Disorientation No (0 pts) Intoxicated or Sedated No (0 pts) Impaired Gait No (0 pts) Mobility Assist Device Used No (0 pt) Altered Elimination No (0 pt) Score/Fall Risk Level 0 - 2 = Low Risk Oriented to surroundings, Maintained a safe environment, Educated pt \T\ family on fall prevention, incl call for assistance when getting out of bed, Hourly rounding (assess needs \T\ fall precautionary measures) done. Abuse screen: Denies threats or abuse. Denies injuries from another. Nutritional screening: No deficits noted. Tuberculosis screening: No symptoms or risk factors identified. Assessment: 20:41 General: Appears in no apparent distress. comfortable, Behavior is calm, cooperative, cp4 appropriate for age. Pain: Denies pain. Neuro: Level of Consciousness is awake, alert, obeys commands, Oriented to person, place, time, situation. Cardiovascular: Capillary refill < 3 seconds Patient's skin is warm and dry. Respiratory: Airway is patent Respiratory effort is even, unlabored. GI: No signs and/or symptoms were reported involving the gastrointestinal system. : No signs and/or symptoms were reported regarding the genitourinary system. EENT: No signs and/or symptoms were reported regarding the EENT system. Derm: No signs and/or symptoms reported regarding the dermatologic system. Musculoskeletal:. 20:43 Musculoskeletal: Reports swelling to the right arm. cp4 Vital Signs: 19:31 BP 137 / 97; Pulse 69; Resp 18 S; Temp 98.1(O); Pulse Ox 99% on R/A; Weight 122.47 kg; ha1 Height 5 ft. 6 in. ; 22:10 BP 134 / 95; Pulse 72; Resp 18; Pulse Ox 99% ; cp4 19:31 Body Mass Index 43.58 (122.47 kg, 167.64 cm) ha1 Ericka Coma Score: 10/27 02:37 Eye Response: spontaneous(4). Motor Response: obeys commands(6). Verbal Response: sp4 oriented(5). Total: 15. ED Course: 10/26 19:23 Patient arrived in ED. gm2 19:28 Jose Luis Parikh MD is Attending Physician. sp4 19:32 Soraya Oliver is Primary Nurse. cp4 20:01 Triage completed. ha1 20:43 Bed in low position. Call light in reach. Side rails up X 1. cp4 20:43 No provider procedures requiring assistance completed. Patient did not have IV access cp4 during this emergency room visit. 21:19 UPPER EXTREMITY VENOUS UNILATE In Process Unspecified. EDMS 21:19 Upper Ext Artery Uni Jerome In Process Unspecified. EDMS 21:52 Avery Holt MD is Referral Physician. sp4 22:11 Provided Education on: puncture wound, arm swelling.. cp4 22:11 Sling applied to right arm. cp4 22:12 Arm band placed on right wrist. Patient placed in waiting room. cp4 Administered Medications: No medications were administered Medication: 20:43 VIS not applicable for this client. cp4 Outcome: 21:53 Discharge ordered by MD. sp4 22:11 Discharged to home ambulatory, cp4 22:11 Condition: stable 22:11 Discharge instructions given to patient, Instructed on discharge instructions, follow up and referral plans. medication usage, Demonstrated understanding of instructions, follow-up care, medications, Prescriptions given X 1, 22:12 Patient left the ED. cp4 Signatures: Dispatcher [employer] [facility] Cely Montes RN RN ha1 Jose Luis Parikh MD MD sp4 Soraya Oliver cp4 Ashley Vargas 2
--- NOTE | 2024-10-26 21:54 | EDPHYS ---
Physician Documentation [facility] Name: Dori Guardado Age: 49 yrs Sex: Female : 1975 Arrival Date: 10/26/2024 Time: 19:19 Bed 16 Private MD: ED Physician Jose Luis Parikh HPI: 10/26 19:28 This 49 yrs old Black Female presents to ER via Unassigned with complaints of Arm Pain, sp4 POST HEART CATH/ ARM SWOLLEN,PAIN. 10/27 02:37 49-year-old female with history of coronary artery disease history of left heart sp4 catheter 10/21/2024 presents with pain to right forearm at the site of right radial arterial puncture.. Catheterization report from 10/21/2024 reveals normal coronaries with mild left circumflex disease with mildly elevated filling pressures. Plan to continue medical management.. Patient's medications include buspirone 10 mg bedtime, Bentyl 10 mg 4 times a day, famotidine 20 mg bedtime, omeprazole 40 mg daily, apixaban 5 mg twice daily, buspirone 10 mg daily, cetirizine 10 mg daily, sotalol 80 mg twice daily.. 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 - Infectious Disease History:: Denies. - Social history:: Smoking status: Patient denies any tobacco usage or history of. - Family history:: not pertinent. ROS: 10/27 02:37 Constitutional: Negative for fever, chills, and weight loss, positive of right forearm sp4 pain tenderness swelling. All other systems are negative, Exam: 02:37 Constitutional: This is a well developed, well nourished patient who is awake, alert, sp4 and in no acute distress. Head/Face: Normocephalic, atraumatic. Eyes: Pupils equal round and reactive to light, extra-ocular motions intact. Lids and lashes normal. Conjunctiva and sclera are not injected. Cornea within normal limits. Periorbital areas with no swelling, redness, or edema. ENT: Nares patent. No nasal discharge, no septal abnormalities noted. Tympanic membranes are normal and external auditory canals are clear. Oropharynx with no redness, swelling, or masses, exudates, or evidence of obstruction, uvula midline. Mucous membranes moist. Neck: Trachea midline, no thyromegaly or masses palpated, and no cervical lymphadenopathy. Supple, full range of motion without nuchal rigidity, or vertebral point tenderness. Chest/axilla: Normal chest wall appearance and motion. Nontender with no deformity. No lesions are appreciated. Cardiovascular: Regular rate and rhythm with a normal S1 and S2. No gallops, murmurs, or rubs. Normal PMI, no JVD. No pulse deficits. Respiratory: Lungs have equal breath sounds bilaterally, clear to auscultation and percussion. No rales, rhonchi or wheezes noted. No increased work of breathing, no retractions or nasal flaring. Abdomen/GI: Soft, with normal bowel sounds. No distension or tympany. No guarding or rebound. No evidence of tenderness throughout. Back: No spinal tenderness. No costovertebral tenderness. Skin: Warm, dry with normal turgor. Normal color with no rashes, no lesions, and no evidence of cellulitis. MS/ Extremity: Pulses equal, no cyanosis. Neurovascular intact. Full, normal range of motion. Neuro: Awake and alert, GCS 15, oriented to person, place, time, and situation. Cranial nerves II-XII grossly intact. Motor strength 5/5 in all extremities. Sensory grossly intact. Psych: Awake, alert, with orientation to person, place and time. Behavior, mood, and affect are within normal limits Vital Signs: 10/26 19:31 BP 137 / 97; Pulse 69; Resp 18 S; Temp 98.1(O); Pulse Ox 99% on R/A; Weight 122.47 kg; ha1 Height 5 ft. 6 in. ; 22:10 BP 134 / 95; Pulse 72; Resp 18; Pulse Ox 99% ; cp4 19:31 Body Mass Index 43.58 (122.47 kg, 167.64 cm) ha1 Ericka Coma Score: 10/27 02:37 Eye Response: spontaneous(4). Motor Response: obeys commands(6). Verbal Response: sp4 oriented(5). Total: 15. MDM: 10/26 19:40 Medical Screening Exam initiated sp4 21:44 ED course: EXAMINATION: UPPER EXTREMITYVENOUS UNILATE CLINICAL INDICATION: Female, 49 sp4 years old. [facility] MAIN pain after Heart Cath ;Pain Bed Name: 16 TECHNIQUE: Complete venous duplex sonography of the right upper extremity was performed. The examination included compression for vein patency, color Doppler imaging and flow augmentation in response to distal compression of the internal jugular, brachiocephalic, subclavian, axillary, brachial, radial, ulnar, cephalic and basilic veins. COMPARISON: No prior exam. FINDINGS: Duplex sonography testing of the veins of the right upper extremity is completed. Color flow imaging shows all veins to be compressible with appropriate color filling. Pulsatile and phasic flow is present within the upper extremity deep and superficial veins examined. IMPRESSION: There is no deep vein or superficial vein thrombosis.. ED course: Arterial Sonogram - EXAMINATION: Upper Ext Artery Uni Jerome CLINICAL INDICATION: Female, 49 years old. [facility] MA[facility] Right arm Right arm pain after puncture Bed Name: 16 TECHNIQUE: Arterial duplex ultrasound was performed of the Right upper extremity with real-time, color-flow, and spectral wave Doppler evaluation. COMPARISON: No prior exam. FINDINGS: No significant plaque throughout the evaluated arterial system. Triphasic waveforms are seen throughout the evaluated Right upper extremity arterial system, to the level of the brachial artery. Triphasic radial and ulnar artery waveform with some spectral broadening.. No other suspicious findings. IMPRESSION: No evidence of significant peripheral vascular disease.. 10/27 02:37 Differential diagnosis: closed fracture, contusion, abrasion, tendonitis. Data sp4 reviewed: vital signs, nurses notes, old medical records, radiologic studies, ultrasound. Consideration of Admission/Observation Escalation of care including admission/observation considered. ED course: Ultrasounds unremarkable. Left hand has normal perfusion, patient stable for discharge home.. 10/26 19:51 Order name: UPPER EXTREMITY VENOUS UNILATE; Complete Time: 21:47 EDMS 10/26 19:51 Order name: Upper Ext Artery Uni Jerome; Complete Time: 21:47 EDMS 10/26 21:47 Order name: Sling; Complete Time: 21:48 sp4 Administered Medications: No medications were administered Disposition Summary: 10/26/24 21:53 Discharge Ordered Notes: Location: Home sp4 Problem: new sp4 Symptoms: have improved sp4 Condition: Stable sp4 Diagnosis - Acute left forearm pain , pain at the arterial puncture site, Acute pain After sp4 Heart Catheterization Followup: sp4 - With: Avery Holt MD - When: 7 - 10 days - Reason: Recheck today's complaints Discharge Instructions: - Discharge Summary Sheet sp4 - Puncture Wound, [id number] sp4 Forms: - Patient Portal Instructions sp4 Prescriptions: - acetaminophen-codeine 300-60 mg Oral tablet - take 1 tablet ORAL route 3 times per day PRN pain; 12 tablet; Refills: 0, sp4 Product Selection Permitted Signatures: Dispatcher [employer] Cely Rangel RN RN ha1 Jose Luis Parikh MD MD sp4 Corrections: (The following items were deleted from the chart) 10/26 19:39 19:39 Extremity Venous Uni Ltd+US.RAD.BRZ ordered. EDMS EDMS 19:51 19:40 Lower Extremity Artery Uni Ltd+US.RAD.BRZ ordered. EDMS EDMS
[2024-10-26 22:47] VITALS: TEMP 98.1; O2SAT 99
[2024-10-26 22:48] VITALS: BP 134/95
== END 2024-10-26 22:12 | disposition home or self-care (01) ==
LOC: ER 19:19
DX: T82.848A Pain due to vascular prosthetic devices, implants and grafts, initial encounter (principal); Z86.718 Personal history of other venous thrombosis and embolism; Z79.01 Long term (current) use of anticoagulants
CPT/HCPCS: 93931; 93971; 99283

== ENCOUNTER 2024-12-16 18:56 | Emergency (ER) | payer OTHER ==
[2024-12-16] MEDS ORDERED: NA CHLORIDE 0.9% 1,000 ML ONE (19:47)
[2024-12-16] MEDS ORDERED: FAMOTIDINE 20 MG/2 ML VIAL IV ONE (19:47)
[2024-12-16] MEDS ORDERED: METOCLOPRAMIDE 10 MG/2mL INJ ONE (19:47)
[2024-12-16 20:26] LABS: Absolute Basophils 0.1 K/uL (0-0.5); Absolute Eosinophils 0.1 K/uL (0-0.5); Absolute Lymphocytes (CBC) 2.6 K/uL (0.7-4.9); Absolute Monocytes 0.5 K/uL (0.1-1.3); Absolute Neutrophil 4.1 K/uL (1.8-8.0); Eosinophils % 1.1 % (0-4.4); Hematocrit 37.5 % (36.0-45.0); Hemoglobin 11.9 g/dL (12.0-15.0); Lymphocytes % 35.3 % (15.3-44.8); MCH 24.9 pg (27.0-35.0); MCHC 31.6 g/dL (32.0-36.0); MCV 78.6 fL (80-100); MPV 8.2 fL (7.6-11.3); Monocytes % 7.4 % (3.3-12.3); Neutrophils % 55.2 % (41.7-73.7); Nucleated Red Blood Cells % 0.2 % (0-0); Platelets 366 thou/uL (152-406); RBC Red Blood Cell Count 4.77 M/uL (3.86-4.86); Red Cell Distribution Width 16.1 % (12.1-15.2)
[2024-12-16 20:44] LABS: Albumin 3.3 g/dL (3.4-5.0); Albumin/Globulin Ratio 0.6 (1.1-1.8); Anion Gap 7.5 mEq/L (5.0-15.0); Bilirubin Total 0.6 mg/dL (0.2-1.0); Globulin 5.6 g/dL (2.3-3.5); Potassium 3.5 mEq/L (3.5-5.1); Protein, Total 8.9 g/dL (6.4-8.2)
[2024-12-16 20:57] LABS: Specific Gravity 1.024 (1.005-1.030); Sqamous Epithelial <5 /HPF (None Seen); Urine Bacteria <20 /HPF (<20); Urine Bilirubin NEGATIVE (Negative); Urine Blood Trace (Negative); Urine Clarity Turbid (Clear); Urine Color Light-Yellow (Yellow); Urine Culture Reflex Order NOT NEEDED; Urine Glucose NEGATIVE (Negative); Urine Ketones NEGATIVE (Negative); Urine Microscopic Reflex YN ORDER UMIC; Urine Mucus Slight /HPF (None Seen); Urine Nitrite NEGATIVE (Negative); Urine Protein TRACE (Negative); Urine RBC <5 /HPF (None Seen); Urine Urobilinogen Normal (Normal); Urine WBC <5 /HPF (<5); Urine WBC Clump Rare /HPF (None Seen); Urine pH 5.5 (5.0-7.0)
--- NOTE | 2024-12-16 21:25 | RAD REPORT ---
EXAMINATION: CT ABDOMEN AND PELVIS WITH CONTRAST CLINICAL INDICATION: ABD PAIN TECHNIQUE: CT abdomen and pelvis was performed, after the administration of IV contrast, as per [facility] protocol. Axial, sagittal and coronal reconstructions were obtained. One or more of the following dose reduction techniques were used: Automated exposure control, adjustment of the mA and k V according to patient size, and iterative reconstruction. Unless otherwise specified, incidental findings do not require dedicated imaging follow-up. COMPARISON: No prior exam. FINDINGS: LOWER CHEST: The visualized lung bases are clear. LIVER: Mild fatty liver is present. No focal lesion or biliary dilatation is seen. Cholecystectomy clips. SPLEEN: Normal size. No focal lesion. PANCREAS: No mass, ductal dilation, or gina-pancreatic fluid. ADRENALS: Normal; no mass. KIDNEYS: Normal size and contour. No hydronephrosis. GASTROINTESTINAL TRACT: No evidence of free air, significant intra-abdominal free fluid, bowel obstru ction or abscess. Partial right colectomy noted. There is mild mural thickening of the sigmoid colon and rectum. APPENDIX: Appendix not visualized, but no inflammatory changes in region of appendix. LYMPH NODES: No lymphadenopathy. MUSCULOSKELETAL: No acute or suspicious osseous abnormality. IMPRESSION: Mild rectosigmoid colitis pattern is present.
[2024-12-16] MEDS ORDERED: CEFTRIAXONE 1000 MG/VIAL ONE (22:03)
[2024-12-16] MEDS ORDERED: METRONIDAZOLE 500mg IVPB 500 MG/100 ML BAG IV ONE (22:04)
--- NOTE | 2024-12-16 22:07 | EDPHYS ---
Physician Documentation [facility] Name: Dori Guardado Age: 49 yrs Sex: Female : 1975 Arrival Date: 12/16/2024 Time: 18:56 Bed 18 Private MD: RAFAELA Physician Hardy Yee HPI: 12/16 19:41 This 49 yrs old Black Female presents to ER via Ambulatory with complaints of Abdominal sb4 Pain. 19:41 The patient presents with abdominal pain that is diffuse. Onset: The symptoms/episode sb4 began/occurred 3 day(s) ago. The symptoms do not radiate. Associated signs and symptoms: Pertinent positives: nausea, vomiting, and diarrhea. The symptoms are described as crampy. Patient with history of Crohn's disease on Humira presents with 3 days abdominal pain that is different than her usual Crohn's pain. States that she saw her GI doctor 2 weeks ago and was started on nystatin for thrush and sucralfate for pain. States that when her pain began 3 days ago, she took some leftover Flagyl she had in case she had some sort of infection but that did not help her symptoms. Denies any blood in her stool. 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 - Infectious Disease History:: Denies. - Social history:: Smoking status: Patient denies any tobacco usage or history of. ROS: 19:41 Constitutional: Negative for fever, chills, and weight loss, sb4 19:41 Abdomen/GI: Positive for abdominal pain, nausea, vomiting, and diarrhea, 19:41 All other systems are negative, Exam: 19:41 Constitutional: This is a well developed, well nourished patient who is awake, alert, sb4 and in no acute distress. Head/Face: Normocephalic, atraumatic. Eyes: Extra-ocular motions intact. Periorbital areas with no swelling, redness, or edema. ENT: Mucous membranes moist. Cardiovascular: Regular rate and rhythm with a normal S1 and S2. Respiratory: No increased work of breathing, no retractions or nasal flaring. Abdomen/GI: Soft, non-tender, no distension. Skin: Warm, dry with normal turgor. Normal color with no rashes, no lesions, and no evidence of cellulitis. Vital Signs: 19:06 BP 142 / 84; Pulse 67; Resp 17; Temp 98.1; Pulse Ox 100% on R/A; Weight 123.83 kg; dd2 Height 5 ft. 3 in. ; Pain 8/10; 20:19 BP 137 / 91; Pulse 59; Resp 20; Pulse Ox 100% on R/A; kj2 22:20 BP 130 / 82; Pulse 60; Resp 18; Temp 98; Pulse Ox 100% on R/A; kj2 19:06 Body Mass Index 48.36 (123.83 kg, 160.02 cm) dd2 19:06 Pain Scale: Adult dd2 MDM: 19:00 Medical Screening Exam initiated sb4 22:07 Data reviewed: vital signs, nurses notes, lab test result(s), radiologic studies, and sb4 as a result, I will discharge patient. 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 12/16 19:24 Order name: CBC with Diff; Complete Time: 20:33 sb4 12/16 19:24 Order name: CMP; Complete Time: 20:44 sb4 12/16 19:24 Order name: Lipase; Complete Time: 20:44 sb4 12/16 19:24 Order name: Urinalysis w/ reflexes; Complete Time: 20:58 sb4 12/16 19:24 Order name: CT Abd/Pelvis - IV Contrast Only; Complete Time: 21:30 sb4 12/16 19:24 Order name: IV Saline Lock; Complete Time: 20:28 sb4 12/16 19:24 Order name: Labs collected and sent; Complete Time: 20:28 sb4 Administered Medications: 19:25 CANCELLED (Physician Discretion): ondansetron 4 mg IVP once; over 2 minutes sb4 20:18 Drug: Famotidine IVP 20 mg IVP once; dilute with 10 mL 0.9% NaCl; give over 2 minutes kj2 Route: IVP; Site: right forearm; 22:18 Follow up: Response: No adverse reaction kj2 20:18 Drug: NS 0.9% IV 1000 ml IV at 1 bolus Per protocol; to be given as a bolus over 60 kj2 minutes Route: IV; Rate: 1 bolus; Site: right forearm; 22:19 Follow up: IV Status: Completed infusion; IV Intake: 1000ml kj2 20:18 Drug: metoCLOPramide IVP 10 mg IVP once; over 1 to 2 minutes Route: IVP; Site: right kj2 forearm; 22:18 Follow up: Response: No adverse reaction kj2 22:14 Drug: Rocephin IV 1 grams IV at calculated rate once; Given slow IV push per pharmacy kj2 instructions Route: IV; Rate: calculated rate; Site: right forearm; 22:46 Follow up: IV Status: Completed infusion kj2 22:14 Drug: metroNIDAZOLE IVPB 500 mg 100 ml IVPB at 200 ml/hr once over 30 mins Volume: 100 kj2 ml; Route: IVPB; Rate: 200 ml/hr; Infused Over: 30 mins; Site: right forearm; 22:46 Follow up: IV Status: Completed infusion; IV Intake: 100ml kj2 Disposition Summary: 12/16/24 22:07 Discharge Ordered Notes: Location: Home sb4 Problem: new sb4 Symptoms: have improved sb4 Condition: Stable sb4 Diagnosis - Left sided colitis sb4 Followup: sb4 - With: Emergency Department - When: As needed - Reason: Fever > 102 F, Worsening of condition Discharge Instructions: - Discharge Summary Sheet sb4 - Colitis sb4 Forms: - Antibiotic Education sb4 - Patient Portal Instructions sb4 - Leadership Thank You Letter sb4 Prescriptions: - cefdinir 300 mg Oral capsule - take 1 capsule ORAL route 2 times per day for 7 days; 14 capsule; Refills: 0, sb4 Product Selection Permitted - Flagyl 500 mg Oral Tablet - take 1 tablet ORAL route every 12 hours for 7 days; 14 tablet; Refills: 0, sb4 Product Selection Permitted - Reglan 10 mg Oral tablet - take 1 tablet ORAL route every 6 hours .; 12 tablet; Refills: 0, Product sb4 Selection Permitted Addendum: 12/18/2024 15:34 Co-signature as Attending Physician, Hardy Yee MD I agree with the assessment and c de plan of care. Signatures: Dispatcher [employer] [facility] Hardy Yee MD MD cha Brown, Sophia, PA-C PA-C sb4 Calista Chavira, RN RN kj2 ADRIEL NUNES RN RN dd2 Corrections: (The following items were deleted from the chart) 12/16 19:24 19:24 Abdomen Pelvis W Con+CT.RAD.BRZ ordered. [facility] 19:25 19:24 Ondansetron IVP 4 mg IVP once; over 2 minutes ordered. sb4 sb4 21:18 21:18 Data reviewed: vital signs, nurses notes, lab test result(s), radiologic studies, sb4 and as a result, I will admit patient, sb4 21:18 21:18 Consideration of Admission/Observation Patient was admitted/placed on sb4 observation. sb4 21:18 21:18 Counseling: I had a detailed discussion with the patient and/or guardian sb4 regarding the historical points, exam findings, and any diagnostic results supporting the discharge/admit diagnosis, lab results, radiology results, the need for further work-up and treatment in the hospital, sb4
--- NOTE | 2024-12-16 22:07 | ER ---
Nurse's Notes [facility] Name: Dori Guardado Age: 49 yrs Sex: Female : 1975 Arrival Date: 12/16/2024 Time: 18:56 Bed 18 Private MD: Diagnosis: Left sided colitis Presentation: 12/16 19:06 Chief complaint: Patient states: STOMACH PAIN X3 DAYS ACROSS THE TOP OF THE STOMACH dd2 WITH NAUSEA. Coronavirus screen: At this time, the client does not indicate any symptoms associated with coronavirus-19. Ebola Screen: No symptoms or risks identified at this time. Initial Sepsis Screen: Does the patient meet any 2 criteria? No. Patient's initial sepsis screen is negative. Does the patient have a suspected source of infection? No. Patient's initial sepsis screen is negative. Risk Assessment: Do you want to hurt yourself or someone else? Patient reports no desire to harm self or others. Onset of symptoms is unknown. 19:06 Method Of Arrival: Ambulatory dd2 19:06 Acuity: KASH 3 dd2 Triage Assessment: 19:10 General: Appears in no apparent distress. uncomfortable, Behavior is calm, cooperative, dd2 appropriate for age. Pain: Complains of pain in right upper quadrant and left upper quadrant Pain currently is 8 out of 10 on a pain scale. GI: Abdomen is non-distended, obese, Abd is soft X 4 quads Abdomen is tender to palpation in right upper quadrant and left upper quadrant. 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 - Infectious Disease History:: Denies. - Social history:: Smoking status: Patient denies any tobacco usage or history of. Screenin:20 [facility] ED Fall Risk Assessment (Adult) History of falling in the last 3 months, kj2 including since admission No falls in past 3 months (0 pts) Confusion or Disorientation No (0 pts) Intoxicated or Sedated No (0 pts) Impaired Gait No (0 pts) Mobility Assist Device Used No (0 pt) Altered Elimination No (0 pt) Score/Fall Risk Level 0 - 2 = Low Risk Maintained a safe environment, Hourly rounding (assess needs \T\ fall precautionary measures) done. Abuse screen: Denies threats or abuse. Denies injuries from another. Nutritional screening: No deficits noted. Tuberculosis screening: No symptoms or risk factors identified. Assessment: 19:20 General: Appears in no apparent distress. Behavior is calm, cooperative. Pain: kj2 Complains of pain in abdomen and left upper quadrant and right upper quadrant Pain currently is 8 out of 10 on a pain scale. Neuro: Level of Consciousness is awake, alert, obeys commands, Oriented to person, place, time, situation. Cardiovascular: Patient's skin is warm and dry. Respiratory: Airway is patent Respiratory effort is even, unlabored. : No signs and/or symptoms were reported regarding the genitourinary system. 19:25 GI: Bowel sounds hypoactive in abdomen and left upper quadrant and right upper quadrant.kj2 20:19 Reassessment: Patient appears in no apparent distress at this time. Patient and/or kj2 family updated on plan of care and expected duration. Pain level reassessed. Patient is alert, oriented x 3, equal unlabored respirations, skin warm/dry/pink. 22:14 Reassessment: Patient appears in no apparent distress at this time. Patient and/or kj2 family updated on plan of care and expected duration. Pain level reassessed. Patient is alert, oriented x 3, equal unlabored respirations, skin warm/dry/pink. 22:47 Reassessment: Patient appears in no apparent distress at this time. Patient and/or kj2 family updated on plan of care and expected duration. Pain level reassessed. Patient is alert, oriented x 3, equal unlabored respirations, skin warm/dry/pink. Vital Signs: 19:06 BP 142 / 84; Pulse 67; Resp 17; Temp 98.1; Pulse Ox 100% on R/A; Weight 123.83 kg; dd2 Height 5 ft. 3 in. ; Pain 8/10; 20:19 BP 137 / 91; Pulse 59; Resp 20; Pulse Ox 100% on R/A; kj2 22:20 BP 130 / 82; Pulse 60; Resp 18; Temp 98; Pulse Ox 100% on R/A; kj2 19:06 Body Mass Index 48.36 (123.83 kg, 160.02 cm) dd2 19:06 Pain Scale: Adult dd2 ED Course: 18:58 Patient arrived in ED. mr 19:00 Poppy Dallas PA-C is PHCP. sb4 19:00 Hardy Yee MD is Attending Physician. sb4 19:10 Triage completed. dd2 19:10 Arm band placed on right wrist. dd2 19:32 aClista Chavira RN is Primary Nurse. kj2 19:34 Patient has correct armband on for positive identification. Provided Education on: call kj2 light. 19:35 No provider procedures requiring assistance completed. kj2 20:14 Accessed peripheral vein via ultrasound, utilizing dynamic ultrasound technique Blood cm10 collected. Clean \T\ dry. Dressing intact. Good blood return. Flushes easily. 20g right forearm. 21:11 CT Abd/Pelvis - IV Contrast Only In Process Unspecified. EDMS 22:48 IV discontinued, intact, bleeding controlled, No redness/swelling at site. Pressure kj2 dressing applied. Administered Medications: 19:25 CANCELLED (Physician Discretion): ondansetron 4 mg IVP once; over 2 minutes sb4 20:18 Drug: Famotidine IVP 20 mg IVP once; dilute with 10 mL 0.9% NaCl; give over 2 minutes kj2 Route: IVP; Site: right forearm; 22:18 Follow up: Response: No adverse reaction kj2 20:18 Drug: NS 0.9% IV 1000 ml IV at 1 bolus Per protocol; to be given as a bolus over 60 kj2 minutes Route: IV; Rate: 1 bolus; Site: right forearm; 22:19 Follow up: IV Status: Completed infusion; IV Intake: 1000ml kj2 20:18 Drug: metoCLOPramide IVP 10 mg IVP once; over 1 to 2 minutes Route: IVP; Site: right kj2 forearm; 22:18 Follow up: Response: No adverse reaction kj2 22:14 Drug: Rocephin IV 1 grams IV at calculated rate once; Given slow IV push per pharmacy kj2 instructions Route: IV; Rate: calculated rate; Site: right forearm; 22:46 Follow up: IV Status: Completed infusion kj2 22:14 Drug: metroNIDAZOLE IVPB 500 mg 100 ml IVPB at 200 ml/hr once over 30 mins Volume: 100 kj2 ml; Route: IVPB; Rate: 200 ml/hr; Infused Over: 30 mins; Site: right forearm; 22:46 Follow up: IV Status: Completed infusion; IV Intake: 100ml kj2 Medication: 19:20 VIS not applicable for this client. kj2 Intake: 22:19 IV: 1000ml; Total: 1000ml. kj2 22:46 IV: 100ml; Total: 1100ml. kj2 Outcome: 22:07 Discharge ordered by . [email or web address] 22:47 Discharged to home ambulatory, kj2 22:47 Condition: stable 22:47 Discharge instructions given to patient, Instructed on discharge instructions, follow up and referral plans. Demonstrated understanding of instructions, follow-up care, 22:55 Patient left the ED. kj2 Signatures: Dispatcher [employer] EDMS Maira Nunez, Reg Reg Poppy Bunch, PA-C PA-C sb4 Janel Dejesus, RN RN cm10 Calista Chavira RN RN kj2 ADRIEL NUNES RN RN dd2
[2024-12-16 23:11] VITALS: O2SAT 100
[2024-12-16 23:13] VITALS: BP 130/82; TEMP 98
== END 2024-12-16 22:55 | disposition home or self-care (01) ==
LOC: ER 18:56
DX: K51.50 Left sided colitis without complications (principal)
CPT/HCPCS: 96365; 96361; 96368; 85025; 81001; 36415; 83690; 80053; 74177; 96375; 99284; Q9967; J2765; J7030; J0696

== ENCOUNTER 2025-01-02 10:47 | Emergency (ER) | payer OTHER ==
--- OUTSIDE RECORDS SUMMARY | 2025-01-02 10:54 | XMS REPORT | Continuity of Care Document ---
Author Name Unknown Address [address] [facility] [place] [address] Organization [facility] [place] Address [address] 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 Role Phone Lion FU Chanell Primary Care Physician [phone] Taylor Chung Attending Clinician Unavailable Karol Rich Attending Clinician Unavailable Noemy Lopez Attending Clinician Unavailable Beverley Jacskon Attending Clinician [phone] BEVERLEY CUEVAS Attending Clinician UnavailBEVERLEY Pagan Attending Clinician Unavailabl CECY Robbins Attending Clinician Unavailable LICO TREVIZO Attending Clinician Unavailable [email or web address] Attending Clinician Unavaila CHRISTINA Osullivan Attending Clinician Unavaila CHRISTINA Osullivan Attending Clinician Unavaila CHAKA Campa Attending Clinician Unavailable MAC LEWIS Attending Clinician UnaMAC Villasenor Attending Clinician Unashamir Trevizo MD, L[place] Attending Clinician [phone] [facility], [facility] Attending Clinician UnavailChristina Yeung MD Attending Clinician [phone] Doctor Unassigned, [facility] Attending Clinician U Vanesa Barakat Attending Clinician Unavailable Raissa Tran DO Attending Clinician [phone] [email or web address] Admitting Clinician Unavaila Noemy De La Torre Admitting Clinician Unavailable Payers Payer Name Policy Type Policy Number Effective Date Expirati on Date Source [place] [id number] 2020 00:00:00 [place] [id number] 2020 00:00:00 [place] [id number] 2020 00:00:00 [facility] Problems Condition Name Condition Details Condition Category Status Onset Date Resolution Date Last Treatment Date Treating Clinician Comments Source AFIB/I48.0 AFIB/I48.0 Active 04/18/2023 [facility] Diagnosis Active 04-18 00:00: 00 2023-05-30 09:01:00 Yovani Borjas Gastroesop hageal reflux disease (disorder) Gastroesop hageal reflux disease (disorder) Active Problem 05/30/2023 [facility] Problem Active 2023-05-30 00:40:15 Memkorin Borjas Hypertensi ve disorder, systemic arterial (disorder) Hypertensi ve disorder, systemic arterial (disorder) Active Problem 05/30/2023 [facility] Problem Active 2023-05-30 00:40:15 Yovani Borjas Rheumatoid arthritis (disorder) Rheumatoid arthritis (disorder) Active Problem 05/30/2023 [facility] Problem Active 2023-05-30 00:40:15 Yovani Borjas Sleep apnea (finding) Sleep apnea (finding) Active Problem 05/30/2023 [facility] Problem Active 2023-05-30 00:40:15 Yovani Borjas PAROXYSMAL ATRIAL FIBRILLATI ON PAROXYSMAL ATRIAL FIBRILLATI ON Active [facility] Diagnosis Active 2023-05-30 09:01:00 Yovani Borjas Crohn's disease (disorder) Crohn's disease (disorder) Active Problem 05/30/2023 [facility] Problem Active 2023-05-30 00:40:15 Yovani Borjas [id number] Microcytic anemia Problem [facility] [id number] Pain, joint, knee, right Problem [facility] [id number] Sinusitis, maxillary, chronic Problem [facility] [id number] Recurrent falls Problem [facility] [id number] Balance problem Problem [facility] Morbid obesity Obesity, morbid, BMI 50 or higher Problem Common [facility] [id number] Crohn's disease in remission Problem [facility] Iron deficiency anemia Iron deficiency anemia, unspecifie d iron deficiency anemia type Problem [facility] [id number] Adult general medical exam Problem [facility] [id number] Hematuria, unspecifie d Problem [facility] [id number] Multiple joint pain Problem [facility] [id number] Urinary tract infection, site not specified Problem [facility] [id number] Body mass index [BMI] 50.0-59.9, adult Problem [facility] [id number] Vitamin D deficiency Problem [facility] [id number] Grieving Problem Commo n [facility] [id number] Seasonal allergic rhinitis, unspecifie d trigger Problem [facility] [id number] Abdominal bloating Problem [facility] [id number] Seasonal allergic rhinitis due to pollen Problem [facility] Mixed anxiety and depressive disorder Depression with anxiety Problem [facility] [id number] Other chronic pain Problem [facility] [id number] Esophageal stricture Problem [facility] [id number] Morbid (severe) obesity due to excess calories Problem [facility] [id number] Essential hypertensi on Problem [facility] [id number] Atrial fibrillati on, unspecifie d type Problem [facility] No known active problems No known active problems Disease [facility] Allergies, Adverse Reactions, Alerts Allergy Name Allergy Type Status Severity Reaction(s) Onset Date Inactive Date Treating Clinician Comments Source No Known Allergie s DA Active U 2020-09 00:00: 00 [facility] No Known Allergie s DA Active U 2020-09 00:00: 00 [facility] No Known Medicati on Allergie s No Known Medicati on Allergie s Active [facility] NKFA NKFA Active [facility] NO KNOWN ALLERGIE S Drug Class Active [facility] Social History Social Habit Start Date Stop Date Quantity Comments Source History of Tobacco Use [facility] Sex Assigned At [facility] Gender identity [facility] Sexual orientation U [facility] History of Social function 2024-10-30 00:00:00 2024-10-30 00:00:00 [facility] Alcoholic beverage intake 2024-10-30 00:00:00 2024-10-30 00:00:00 Ex-drinker (finding) [facility] Tobacco use and exposure 2023-03-20 00:00:00 2023-03-20 00:00:00 Smokeless tobacco non-user [facility] Smoking Status Start Date Stop Date Source Tobacco smoking consumption unknown [facility] Never smoked tobacco [facility] Medications Ordered Medication Name Filled Medication Name Start Date Stop Date Current Medication? Ordering Clinician Indication Dosage Frequency Signature (SIG) Comments Components Source amiodarone 200 mg tablet 10-29 00:00: 00 Yes 200mg Take 1 tablet by mouth in the morning and 1 tablet in the evening. [facility] chlorhexidi ne gluconate 0.12 % mouthwash 04-24 00:00: 00 Yes % [facility] metroNIDAZO LE 500 mg tablet 04-12 10:11: 20 04-12 00:00 :00 No 500mg Take 1 tablet by mouth every 12 (twelve) hours. [facility] adalimumab- adaz 40 mg/0.4 mL PnIj 16 00:00: 00 Yes [facility] pantoprazol e 40 mg EC tablet 02-28 00:00: 00 Yes 40mg Take 1 tablet by mouth every morning. [facility] TAKE 1 TABLET BY MOUTH TWICE DAILY FOR 10 DAYS 11-02 00:00: 00 Yes [facility] DEXAMETHASO N 11-02 00:00: 00 Yes [facility] TAKE 1 TABLET BY MOUTH TWICE DAILY 1 HOUR BEFORE LUNCH AND AT BEDTIME 10-11 00:00: 00 Yes [facility] HUMIRA PEN INJ 40/0.4ML 2022-09 00:00: 00 Yes [facility] TAKE 1 TABLET BY MOUTH EVERY DAY 2022-09 00:00: 00 Yes [facility] HYDROCORT CRE 2.5% 2022-09 00:00: 00 Yes [facility] APPLY EVERY NIGHT AT BEDTIME AFTER SITZ BATH 2022-09 00:00: 00 Yes [facility] TAKE 4 TABLETS BY MOUTH 1 TIME WEEKLY 2022-09- 00:00: 00 Yes [facility] TAKE 1 TABLET BY MOUTH EVERY DAY 2022-09 00:00: 00 Yes [facility] HUMIRA PEN INJ 40/0.4ML 2022-09 00:00: 00 Yes [facility] TAKE 1 TABLET BY MOUTH EVERY 24 HOURS 2022-09 00:00: 00 Yes [facility] POT CHLORIDE 20MEQ ER 2022-09 00:00: 00 Yes [facility] HYDROCHLORO T 2022-09 00:00: 00 Yes [facility] CYCLOBENZAP R 2022-09 00:00: 00 Yes [facility] FOLLOW PACKAGE DIRECTIONS 2022-09 00:00: 00 Yes [facility] LIDOCAINE LU 2% VISC 2022-09 00:00: 00 Yes [facility] AMOX/K CLAV [id number] 8235-1 1-19 00:00: 00 Yes [facility] TAKE 1 TABLET BY MOUTH EVERY 8 HOURS NEEDED 2022-09 00:00: 00 Yes [facility] MIX AND DRINK DIRECTED 2022-09 00:00: 00 Yes [facility] TAKE 1 TABLET BY MOUTH EVERY 12 HOURS NEEDED FOR NAUSEA. 2022-09 00:00: 00 Yes [facility] HUMIRA PEN INJ 40/0.4ML 2022-09 00:00: 00 Yes 40 [facility] SULFAMETH/T RIMETHOPRIM 800/160MG TB 2022-09 0- 00:00: 00 Yes [facility] CEPHALEXIN 2022-09 0- 00:00: 00 Yes [facility] TRAMADOL HCL 2022-09 0 00:00: 00 Yes [facility] MUPIROCIN OIN 2% 2022-09 00:00: 00 Yes [facility] TAKE 1 TABLET BY MOUTH DAILY 2022-09 00:00: 00 Yes [facility] FLUCONAZOLE 2022-09 0-05 00:00: 00 Yes [facility] APPLY TO AFFECTED AREA BY TOPICAL ROUTE EVERY 12 HOURS 14 DAYS 2022-09 0-05 00:00: 00 Yes [facility] TAKE 1 TABLET BY MOUTH EVERY 12 HOURS 2022-09 0- 00:00: 00 Yes [facility] ELIQUIS 06-19 00:00: 00 Yes 5 [facility] LEVOCETIRIZ I 06-19 00:00: 00 Yes 5 [facility] ALPRAZOLAM - 00:00: 00 Yes 5 [facility] CLOTRIMAZOL E CRE 1% - 00:00: 00 Yes 1 [facility] TAKE 1 TABLET BY MOUTH ONE TIME FOR 1 DAY. 06-14 00:00: 00 Yes [facility] HYDROXYZ HCL 06-13 00:00: 00 Yes 25 [facility] TAKE 1 TABLET BY MOUTH EVERY 12 HOURS FOR 5 DAYS 06-07 00:00: 00 Yes [facility] TAKE 1 CAPSULE BY MOUTH EVERY 12 HOURS NEEDED FOR COUGH 06-07 00:00: 00 Yes [facility] sucralfate 1 g oral tablet 05-27 15:33: 00 Yes 1 gm = 1 tab, PO, BID-Before Meals, # 28 tab, 0 Refill(s) Yovani Borjas SUCRALFATE 1GM 05-27 00:00: 00 Yes 1 [facility] TAKE 1 TABLET BY MOUTH EVERY 8 HOURS 05-22 00:00: 00 Yes [facility] TAKE 1 TABLET BY MOUTH EVERY 8 HOURS NEEDED FOR ANXIETY. 05-20 00:00: 00 Yes [facility] TAKE 1 TABLET BY MOUTH EVERY 8 HOURS NEEDED 05-18 00:00: 00 Yes [facility] TAKE 1 CAPSULE BY MOUTH DAILY 05-18 00:00: 00 Yes [facility] levocetiriz ine 5 mg oral tablet 05-17 14:44: 00 Yes 5 mg = 1 tab, PO, PRN, PRN Allergies Yovani Borjas famotidine 40 mg tablet 05-17 00:00: 00 Yes 40mg 1 tablet. [facility] levocetiriz ine 5 mg tablet 05-17 00:00: 00 Yes 5mg 1 tablet. [facility] chlorthalid one 25 mg tablet 05-01 10:24: 11 Yes 25mg Take 1 tablet by mouth in the morning. [facility] chlorthalid one 25 mg tablet 04-17 08:13: 44 Yes 25mg Take 1 tablet by mouth in the morning. [facility] CHLORTHALID 04-15 00:00: 00 Yes [facility] TAKE 1 TABLET BY MOUTH DAILY FOR 21 DAYS 04-13 00:00: 00 Yes [facility] TRIAMT/HCTZ 37.5-25 04-13 00:00: 00 Yes [facility] TAKE 2 TABLETS BY MOUTH TWICE DAILY 04-13 00:00: 00 Yes [facility] triamterene -hydrochlor othiazide (DYAZIDE) 37.5-25 mg per capsule 04-13 00:00: 00 04-17 00:00 :00 No 1{mariannau le} Take 1 capsule by mouth every morning. [facility] HUMIRA PEN INJ 40/0.4ML 04-10 00:00: 00 Yes [facility] METRONIDAZO L 04-01 00:00: 00 Yes [facility] SOTALOL HCL 03-30 00:00: 00 Yes [facility] sotaloL 80 mg tablet 03-29 14:59: 32 03-29 00:00 :00 No 80mg Take 1 tablet by mouth in the morning and 1 tablet in the evening. Pt takes 40 mg in the AM and 40 mg in PM [facility] apixaban 5 mg tablet 03-29 14:59: 32 03-29 00:00 :00 No 5mg Take 1 tablet by mouth in the morning and 1 tablet in the evening. [facility] TAKE 1/2 TABLET BY MOUTH IN THE MORNING AND IN THE EVENING. PATIENT TAKE 40 MG IN THE AM AND 40 MG IN THE EVENING 03-29 00:00: 00 Yes 80 [facility] sotaloL 80 mg tablet 03-29 00:00: 00 Yes [id number] 80mg Take 1 tablet by mouth in the morning and 1 tablet in the evening. Pt takes 40 mg in the AM and 40 mg in PM [facility] apixaban 5 mg tablet 03-29 00:00: 00 Yes [id number] 5mg Take 1 tablet by mouth in the morning and 1 tablet in the evening. Indication s: atrial fibrillati on [facility] sotaloL 80 mg tablet 03-29 00:00: 00 Yes [id number] 40mg Take 0.5 tablets by mouth in the morning and 0.5 tablets in the evening. Pt takes 40 mg in the AM and 40 mg in PM [facility] SWISH 4ML IN THE MOUTH AND RETAIN FOR LONG POSSIBLE BEFORE SWALLOWING FOUR TIMES DAILY 03-21 00:00: 00 Yes [facility] DICYCLOMINE 03-21 00:00: 00 Yes [facility] adalimumab (HUMIRA,CF, PEN SC) 03-20 15:30: 35 Yes inject under the skin. [facility] dicyclomine 10 mg capsule 03-20 15:30: 35 Yes 10mg Take 1 capsule by mouth as needed for Abdominal pain. [facility] metroNIDAZO LE 500 mg tablet 03-20 15:30: 35 Yes 500mg Take 1 tablet by mouth every 12 (twelve) hours. [facility] sotaloL 80 mg tablet 03-20 15:30: 35 Yes 80mg Take 1 tablet by mouth in the morning and 1 tablet in the evening. Pt takes 40 mg in the AM and 40 mg in PM [facility] apixaban 5 mg tablet 03-20 15:30: 35 Yes 5mg Take 1 tablet by mouth in the morning and 1 tablet in the evening. [facility] BUPROPION HCL ORAL 03-20 15:30: 35 04-12 00:00 :00 No 500mg Take by mouth daily. [facility] TAKE 1 TABLET BY MOUTH EVERY 6 HOURS 30 MINUTES BEFORE MEALS 03-12 00:00: 00 Yes [facility] TAKE 1 TABLET BY MOUTH EVERY 8 HOURS 03-10 00:00: 00 Yes [facility] VANCOMYCIN 03-08 00:00: 00 Yes [facility] HYDROCORTIS O CRE 2.5% 03-07 00:00: 00 Yes [facility] INSTILL 5 DROPS TO AFFECTED EAR TWICE DAILY 03-07 00:00: 00 Yes [facility] BREO ELLIPTA INH 100-25 12 00:00: 00 Yes [facility] FLUTICASONE SPR 06 00:00: 00 Yes [facility] HYDROXYZ HCL 05 00:00: 00 Yes [facility] TAKE 1 TABLET BY MOUTH THREE TIMES DAILY NEEDED -15 00:00: 00 Yes 20 [facility] OMEPRAZOLE 5- 00:00: 00 Yes t[facility]ef [facility] BREO ELLIPTA INH 100-25 5- 00:00: 00 Yes [facility] ALPRAZOLAM 5- 00:00: 00 Yes [facility] TAKE 1 TABLET BY MOUTH THREE TIMES DAILY - 00:00: 00 Yes 10 [facility] SOTALOL HCL 5- 00:00: 00 Yes 80 [facility] ALPRAZolam 0.5 MG ALPRAZolam 0.5 MG - 00:00: 00 No 1{table t} ALPRAZolam 0.5 MG MONTELUKAST 5- 00:00: 00 Yes [facility] ELIQUIS 5- 00:00: 00 Yes [facility] AMLODIPINE 5- 00:00: 00 Yes 5 [facility] SOTALOL HCL 4-10 00:00: 00 Yes 80 [facility] ELIQUIS 4-07 00:00: 00 Yes 5 [facility]f CAPPSO ELLIPTA INH -25 4-05 00:00: 00 Yes [facility] TAKE 1 TABLET BY MOUTH EVERY DAY IN THE EVENING -04 00:00: 00 Yes [facility] INSTILL 2 SPRAYS IN EACH NOSRIL EVERY DAY. SPRAY UP AND OUT TOWARD EAR. - 00:00: 00 Yes [facility] TAKE 2 TABLETS BY MOUTH TWICE DAILY -04 00:00: 00 Yes [facility] INHALE 1 PUFF BY MOUTH EVERY DAY FOR 2 WEEKS - 00:00: 00 Yes [facility] LIDOCAINE LU 2% VISC - 00:00: 00 Yes 2 [facility] AMOXICILLIN - 00:00: 00 Yes 875 [facility] HUMIRA PEN INJ 40/0.4ML 3-10 00:00: 00 Yes 40 [facility] TAKE 1 TABLET BY MOUTH EVERY 12 HOURS FOR 10 DAYS 2-25 00:00: 00 Yes [facility] SWISH AND GARGLE 5ML BY MOUTH EVERY 4-6 HOURS 2-25 00:00: 00 Yes [facility] HUMIRA PEN INJ 40/0.4ML 2-17 00:00: 00 Yes 40 [facility] ALBUTEROL AER HFA 2-13 00:00: 00 Yes 108 [facility] CODEINE/GG LU 10-100/5 2-13 00:00: 00 Yes [facility] BENZONATATE 2- 00:00: 00 Yes 100 [facility] AMLODIPINE 2-12 00:00: 00 Yes 5 [facility] TAKE 1 TABLET BY MOUTH TWICE DAILY 2- 00:00: 00 Yes [facility] TAKE 2 TABLETS BY MOUTH FOR 1 DAY THEN TAKE 1 TABLET BY MOUTH EVERY DAY FOR 4 DAYS 2- 00:00: 00 Yes [facility] OMEPRAZOLE 2- 00:00: 00 Yes [facility] TAKE DIRECTED. - 00:00: 00 11-12 00:00 :00 No 4 [facility] TAKE 5 ML EVERY 4-6 HOURS, MAY INCREASE TO 10ML AT NIGHT TIME NEEDED. - 00:00: 00 11-12 00:00 :00 No [id number] [facility] HUMIRA PEN INJ 40/0.4ML 1-24 00:00: 00 Yes [facility] TAKE 1 TABLET BY MOUTH EVERY 8 HOURS 1-15 00:00: 00 Yes [facility] ONDANSETRON 1-09 00:00: 00 Yes [facility] HUMIRA PEN INJ 40/0.4ML 1-06 00:00: 00 Yes [facility] DICYCLOMINE 1-03 00:00: 00 Yes [facility] APAP/CODEIN E 300-30MG 2021-09 2-30 00:00: 00 Yes [facility] TK1 TABLET BY MOUTH EVERY 8 HOURS 2021-09 2- 00:00: 00 Yes [facility] HUMIRA PEN INJ 40/0.4ML 2021-09 00:00: 00 Yes [facility] FLUCONAZOLE 2021-09 00:00: 00 Yes [facility] TAKE 2 CAPSULES BY MOUTH THREE TIMES DAILY NEEDED. 2021-09 00:00: 00 Yes [facility] TAKE 2 TABLETS BY MOUTH EVERY DAY FOR 4 DAYS. 2021-09 00:00: 00 Yes [facility] TAKE 1 TABLET BY MOUTH TWICE DAILY 2021-09 00:00: 00 Yes [facility] TRIAMCINOLO N PST DEN 0.1% 2021-09 00:00: 00 Yes 1 [facility] TAKE ONE CAPSULE BY MOUTH TWICE DAILY 2021-09 00:00: 00 Yes [facility] DEXAMETHASO N ELX 0.5/5ML 2021-09 00:00: 00 Yes [facility] METHYLPRED 2021-09 00:00: 00 Yes [facility] APPLY 1 APPLICATION TO ORAL LESION TWICE DAILY NEEDED FOR 14 DAYS 2021-09 00:00: 00 Yes [facility] SWISH AND SPIT 15 ML BY MOUTH TWICE DAILY FOR 7 DAYS 2021-09 00:00: 00 Yes [facility] PREDNISONE 2021-09 00:00: 00 Yes [facility] HYDROCORTIS O CRE 2.5% 2021-09 00:00: 00 Yes [facility] SWISH AND SPIT 5ML BY MOUTH TWICE DAILY FOR 5 MINUTES. DO NOT RINSE AFTERWARDS AND AVOID EATING OR DRINKING FOR 30 MINUTES 2021-09 00:00: 00 Yes [facility] HUMIRA PEN INJ 40/0.4ML 2021-09 00:00: 00 Yes [facility] TAKE 1 CAPSULE BY MOUTH FOUR TIMES DAILY FOR PAIN 2021-09 00:00: 00 Yes [facility] OMEPRAZOLE 2021-09 00:00: 00 Yes [facility] GABAPENTIN 2021-09 00:00: 00 Yes [facility] NYSTATIN ORAL SUSP [id number]/ ML 2021-09 00:00: 00 Yes [facility] TAKE 1 CAPSULE BY MOUTH EVERY 8 HOURS NEEDED 2021-09 1- 00:00: 00 Yes [facility] PAROXETINE 2021-09 1- 00:00: 00 Yes [facility] MONTELUKAST 2021-09 1- 00:00: 00 Yes [facility] AMLODIPINE 2021-09 1- 00:00: 00 Yes [facility] SMZ/TMP DS [id number] 5410-1 0-31 00:00: 00 Yes [facility] TAKE 1 CAPSULE BY MOUTH THREE TIMES DAILY 2021-09 0- 00:00: 00 Yes [facility] TAKE 1 TABLET BY MOUTH EVERY DAY AT BEDTIME NEEDED 2021-09 0 00:00: 00 Yes [facility] TAKE 1 TABLET BY MOUTH THREE TIMES DAILY 2021-09 0- 00:00: 00 Yes [facility] APPLY TO THE AFFECTED AREA TWICE DAILY AFTER SITZ BATH 2021-09 0 00:00: 00 Yes [facility] LIDOCAINE LU 2% VISC 2021-09 0 00:00: 00 Yes [address] [facility] [address] 2021-09 0-12 00:00: 00 Yes 400 [facility] TAKE 1 CAPSULE BY MOUTH THREE TIMES DAILY 2021-09 0-11 00:00: 00 Yes [facility] DICYCLOMINE 2021-09 0-11 00:00: 00 Yes 10 [facility] SHAKE LIQUID AND USE 2 SPRAYS IN EACH NOSTRIL EVERY DAY 2021-09 0- 00:00: 00 Yes [facility] BUSPIRONE 2021-09 0-03 00:00: 00 Yes 10 [facility] INDOMETHACI N 06-22 00:00: 00 Yes 50 [facility] IBUPROFEN 800MG TABLETS - 00:00: 00 Yes [facility] HUMIRA PEN INJ 40/0.4ML - 00:00: 00 Yes 40 [facility] HUMIRA PEN KIT CD/UC/HS - 00:00: 00 Yes [facility] HUMIRA PEN KIT CD/UC/HS - 00:00: 00 No TAKE 1 CAPSULE BY MOUTH FOUR TIMES DAILY -08 00:00: 00 [address] [facility] [address] 2021-0 9-04 00:00: 00 Yes 75 [facility] IBUPROFEN 2021-0 9-04 00:00: 00 Yes 600 [facility] APAP/CODEIN E 300-30MG 2021-0 9-04 00:00: 00 Yes [facility] IPRATROPIUM SPR 0.06% 2021-0 9- 00:00: 00 Yes [facility] LIDOCAINE LU 2% VISC 0 9- 00:00: 00 Yes 2 [facility] IPRATROPIUM SPR 0.06% 0 9- 00:00: 00 No TELMISARTAN 2021-0 8-23 00:00: 00 Yes 20 [facility] TAKE 1 TABLET BY MOUTH EVERY DAY AT BEDTIME 2021-0 8-22 00:00: 00 Yes [facility] TAKE 1 TABLET BY MOUTH EVERY MORNING 2021-0 8-13 00:00: 00 Yes [facility] Dose Unknown 2021-0 8-12 00:00: 00 Yes [facility] Dose Unknown 2021-0 8-12 00:00: 00 No Dose Unknown 2021-0 8-11 00:00: 00 Yes [facility] GABAPENTIN 2021-0 8-11 00:00: 00 Yes 100 [facility] Dose Unknown 2021-0 8-11 00:00: 00 No TAKE 1 TABLET BY MOUTH EVERY DAY AT BEDTIME 2021-0 8-10 00:00: 00 Yes [facility] OMEPRAZOLE 2021-0 8-10 00:00: 00 Yes 40 [facility] PAROXETINE 2021-0 8-08 00:00: 00 Yes 20 [facility] MONTELUKAST 2021-0 8-08 00:00: 00 Yes 10 [facility] FAMOTIDINE 2021-0 8-08 00:00: 00 Yes 40 [facility] PREDNISONE 2-0 8-02 00:00: 00 Yes 20 [facility] VENTOLIN HFA AER 2021-0 8-02 00:00: 00 Yes 108 [facility] BENZONATATE 2021-0 8-02 00:00: 00 Yes 100 [facility] LAGEVRIO 2021-0 8-02 00:00: 00 Yes 200 [facility] Dose Unknown 8 00:00: 00 Yes [facility] Dose Unknown 8 00:00: 00 No fluconazole 150 mg tablet 04-20 00:00: 00 Yes 1mg [facility] nystatin 100,000 unit/mL oral suspension 04-20 00:00: 00 Yes 10unit/ mL [facility] Dose Unknown 04-20 00:00: 00 Yes [facility] Dose Unknown 04-20 00:00: 00 Yes [facility] Dose Unknown 04-20 00:00: 00 Yes [facility] IPRATROPIUM SPR 0.06% 04-20 00:00: 00 Yes 6 [facility] fluconazole 150 mg tablet 04-20 00:00: 00 No 1mg nystatin 100,000 unit/mL oral suspension 04-20 00:00: 00 No 10unit/ mL Dose Unknown 04-20 00:00: 00 No Dose Unknown 04-20 00:00: 00 No Dose Unknown 04-20 00:00: 00 No fluconazole 150 mg tablet 04-20 00:00: 00 No 1mg nystatin 100,000 unit/mL oral suspension 04-20 00:00: 00 No 10unit/ mL Dose Unknown 04-20 00:00: 00 No Dose Unknown 04-20 00:00: 00 No Dose Unknown 04-20 00:00: 00 No TAKE 1 TABLET BY MOUTH TWICE DAILY 0 03-30 00:00: 00 Yes [facility] TAKE 1 TABLET BY MOUTH EVERY 12 HOURS FOR 7 DAYS 0 03-30 00:00: 00 Yes [facility] TAKE 1 TABLET BY MOUTH EVERY DAY AT BEDTIME 0 03-30 00:00: 00 Yes [facility] SHAKE LIQUID AND USE 2 SPRAYS IN EACH NOSTRIL EVERY DAY 0 03-30 00:00: 00 Yes [facility] HUMIRA PEN INJ 40/0.4ML 03-29 00:00: 00 Yes 40 [facility] Sudafed 12 Hour 120 mg tablet,exte nded release 0 -17 00:00: 00 Yes 1mg [facility] Sudafed 12 Hour 120 mg tablet,exte nded release 0 -17 00:00: 00 No 1mg Sudafed 12 Hour 120 mg tablet,exte nded release 0 17 00:00: 00 No 1mg KETOCONAZOL E CRE 2% 0 18 00:00: 00 Yes 2 [facility] APPLY TOPICALLY 2 TO 4 TIMES WEEKLY. LEAVE ON FOR 5-10 MINUTES BEFORE RINSING 0 -13 00:00: 00 Yes [facility] FLUOCINONID E LU 0.05% 0 13 00:00: 00 Yes 5 [facility] APPLY TOPICALLY TO THE AFFECTED AREA OF FACE TWICE DAILY 0 -13 00:00: 00 Yes [facility] TAKE 1 CAPSULE BY MOUTH DAILY 0 -12 00:00: 00 Yes [facility] MELOXICAM 0 5-11 00:00: 00 Yes 75 [facility] FAMOTIDINE 0 5-11 00:00: 00 Yes 40 [facility] TAKE 10 ML BY MOUTH EVERY 6 HOURS FOR 7 DAYS NEEDED FOR COUGH 0 5-04 00:00: 00 Yes [facility] ProAir HFA 90 mcg/actuati on aerosol inhaler 0 01-21 00:00: 00 Yes 2mcg/ac tuation [facility] azithromyci n 250 mg tablet 0 01-21 00:00: 00 Yes mg [facility] Dose Unknown 0 01-21 00:00: 00 Yes [facility] AZITHROMYCI N 2021-0 01-21 00:00: 00 Yes 250 [facility] VENTOLIN HFA AER 0 01-21 00:00: 00 Yes 108 [facility] ProAir HFA 90 mcg/actuati on aerosol inhaler 0 01-21 00:00: 00 No 2mcg/ac tuation azithromyci n 250 mg tablet 0 - 00:00: 00 No mg Dose Unknown 0 - 00:00: 00 No Dose Unknown 2022-0 4-29 00:00: 00 No Dose Unknown 2-0 4-29 00:00: 00 No Dose Unknown 2-0 4-29 00:00: 00 No Dose Unknown 2022-0 4-29 00:00: 00 No ProAir HFA 90 mcg/actuati on aerosol inhaler 2021-0 4-29 00:00: 00 No 2mcg/ac tuation azithromyci n 250 mg tablet 2021-0 4-29 00:00: 00 No mg Dose Unknown 2-0 4-29 00:00: 00 No Dose Unknown 2-0 4- 00:00: 00 No Dose Unknown 2-0 4- 00:00: 00 No Dose Unknown 2-0 4-29 00:00: 00 No Dose Unknown 2-0 4-29 00:00: 00 No MELOXICAM 2-0 4-13 00:00: 00 Yes 75 [facility] Mohinder Dose Unknown 2022-0 4-11 00:00: 00 Yes [facility] Mohinder Dose Unknown 2022-0 4-11 00:00: 00 Yes [facility] Mohinder Dose Unknown 2022-0 4-11 00:00: 00 Yes [facility] Mohinder Dose Unknown 2022-0 4-11 00:00: 00 Yes [facility] Mohinder Dose Unknown 2022-0 4-11 00:00: 00 No Dose Unknown 2022-0 4-11 00:00: 00 No Dose Unknown 2022-0 4-11 00:00: 00 No Dose Unknown 2022-0 4-11 00:00: 00 No Dose Unknown 2022-0 4-11 00:00: 00 No Dose Unknown 2022-0 4-11 00:00: 00 No Dose Unknown 2022-0 4-11 00:00: 00 No Dose Unknown 2022-0 4-11 00:00: 00 No TAKE 1 TABLET BY MOUTH DAILY 2-0 3-18 00:00: 00 Yes [facility] ONDANSETRON 2-0 3-18 00:00: 00 Yes 4 [facility] Dose Unknown 2022-0 3-17 00:00: 00 Yes [facility] Dose Unknown 2022-0 3-17 00:00: 00 Yes [facility] Dose Unknown 2022-0 3-17 00:00: 00 Yes [facility] Dose Unknown 2022-0 3-17 00:00: 00 Yes [facility] [place] Dose Unknown 2022-0 3-17 00:00: 00 No Dose Unknown 2022-0 3-17 00:00: 00 No Dose Unknown 2022-0 3-17 00:00: 00 No Dose Unknown 2022-0 3-17 00:00: 00 No Dose Unknown 2022-0 3-17 00:00: 00 No Dose Unknown 2022-0 3-17 00:00: 00 No Dose Unknown 2022-0 3-17 00:00: 00 No Dose Unknown 2022-0 3-17 00:00: 00 No Dose Unknown 2022-0 3-16 00:00: 00 Yes [facility] Dose Unknown 2022-0 3-16 00:00: 00 Yes [facility] Dose Unknown 2022-0 3-16 00:00: 00 Yes [facility] Dose Unknown 2022-0 3-16 00:00: 00 Yes [facility] Dose Unknown 2022-0 3-16 00:00: 00 No Dose Unknown 2022-0 3-16 00:00: 00 No Dose Unknown 2022-0 3-16 00:00: 00 No Dose Unknown 2022-0 3-16 00:00: 00 No Dose Unknown 2022-0 3-16 00:00: 00 No Dose Unknown 2022-0 3-16 00:00: 00 No Dose Unknown 2022-0 3-16 00:00: 00 No Dose Unknown 2022-0 3-16 00:00: 00 No TAKE 1 TABLET BY MOUTH EVERY 12 HOURS FOR 10 DAYS 2022-0 3-07 00:00: 00 Yes Stef Vines BENZONATATE 2022-0 2-27 00:00: 00 Yes 200 Stef Vines TAKE 1 CAPSULE BY MOUTH THREE TIMES DAILY FOR 10 DAYS NEEDED FOR COUGH 2022-0 2-26 00:00: 00 Yes Stef Vines [address] 2022-0 2-25 00:00: 00 Yes 400 Stef Vines TAKE 1 TABLET BY MOUTH EVERY 12 HOURS FOR 5 DAYS 2022-0 2-23 00:00: 00 Yes Stef Vines TAKE 1 TABLET BY MOUTH 4 TIMES A DAY NEEDED 2-0 2-23 00:00: 00 Yes Stef Vines prednisone 20 mg tablet 2-18 00:00: 00 Yes mg Stef Vines azithromyci n 250 mg tablet 0 2-18 00:00: 00 Yes mg Stef Vines AZITHROMYCI N 250MG TABLETS 6-ZACH 2-18 00:00: 00 Yes Stef Vines prednisone 20 mg tablet 0 2-18 00:00: 00 No mg azithromyci n 250 mg tablet 2-18 00:00: 00 No mg prednisone 20 mg tablet 2-18 00:00: 00 No mg azithromyci n 250 mg tablet 218 00:00: 00 No mg TAKE 1 TABLET BY MOUTH EVERY DAY IN THE MORNING 2- 00:00: 00 Yes Stef Vines FAMOTIDINE 2-10 00:00: 00 Yes 40 Stef Vines No known medications 2020-09 0-09 19:54: 03 No [facility] metoprolol tartrate 50 mg tablet 8- 00:00: 00 Yes 1mg Stef Vines omeprazole 20 mg capsule,del ayed release 8- 00:00: 00 Yes 1mg Stef Vines metoprolol tartrate 50 mg tablet 8- 00:00: 00 No 1mg omeprazole 20 mg capsule,del ayed release 8- 00:00: 00 No 1mg metoprolol tartrate 50 mg tablet 8- 00:00: 00 No 1mg omeprazole 20 mg capsule,del ayed release 8-10 00:00: 00 No 1mg amoxicillin 875 mg-potassiu m clavulanate 125 mg tablet 8-04 00:00: 00 Yes mg Stef Vines fluticasone propionate 50 mcg/actuati on nasal spray,suspe nsion 8- 00:00: 00 Yes mcg/act uation Stef Vines amoxicillin 875 mg-potassiu m clavulanate 125 mg tablet 8- 00:00: 00 No mg fluticasone propionate 50 mcg/actuati on nasal spray,suspe nsion 04-28 00:00: 00 No mcg/act uation amoxicillin 875 mg-potbrunou evelyn clavulanate 125 mg tablet 04-28 00:00: 00 No mg fluticasone propionate 50 mcg/actuati on nasal spray,suspe nsion 04-28 00:00: 00 No mcg/act uation Gabapentin 100 MG Gabapentin 100 MG No 1{capsu le} TID Gabapentin 100 MG PARoxetine HCl 20 MG PARoxetine HCl 20 MG No PARoxetine HCl 20 MG Montelukast Sodium 10 MG Montelukast Sodium 10 MG No Montelukas t Sodium 10 MG Eliquis 5 MG Eliquis 5 MG No 1{table t} BID Eliquis 5 MG Sotalol HCl 80 MG Sotalol HCl 80 MG No 1{table t} BID Sotalol HCl 80 MG Fluticasone Propionate 50 MCG/ACT Fluticasone Propionate 50 MCG/ACT No Fluticason e Propionate 50 MCG/ACT Omeprazole 40 MG Omeprazole 40 MG No 1{capsu le} QD Omeprazole 40 MG busPIRone HCl 10 MG busPIRone HCl 10 MG No 1{table t} TID busPIRone HCl 10 MG sulfaSALAzi ne 500 MG sulfaSALAzi ne 500 MG No 1{table t} BID sulfaSALAz ine 500 MG guaiFENesin AC 100-10 MG/5ML guaiFENesin AC 100-10 MG/5ML No 10{ml_a s_neede d} 6xD guaiFENesi n AC 100-10 MG/5ML Albuterol Sulfate HFA 108 (90 Base) MCG/ACT Albuterol Sulfate HFA 108 (90 Base) MCG/ACT No 2{puffs } Albuterol Sulfate HFA 108 (90 Base) MCG/ACT Vital Signs Vital Name Observation Time Observation Value Comments S ourrudolph Systolic blood pressure 2024-10-30 14:17:00 148 mm[Hg] [facility] Diastolic blood pressure 2024-10-30 14:17:00 99 mm[Hg] [facility] Heart rate 2024-10-30 14:17:00 71 /min [facility] Respiratory rate 2024-10-30 14:17:00 17 /min [facility] Body height 2024-10-30 14:17:00 160 [facility] weight 2024-10-30 14:17:00 122.471 kg Univ [facility] BMI 2024-10-30 14:17:00 47.83 kg/m2 Univ [facility] Oxygen saturation in Arterial blood by Pulse oximetry 2024-10-30 14:17:00 95 /min [facility] Systolic blood pressure 2024-04-12 14:57:00 130 mm[Hg] [facility] Diastolic blood pressure 2024-04-12 14:57:00 78 mm[Hg] [facility] Heart rate 2024-04-12 14:57:00 63 /min [facility] Body temperature 2024-04-12 14:57:00 35.72 Gem [facility] Respiratory rate 2024-04-12 14:57:00 18 /min [facility] Body height 2024-04-12 14:57:00 160 cm [facility] Body weight 2024-04-12 14:57:00 123.832 kg [facility] BMI 2024-04-12 14:57:00 48.36 kg/m2 Univ [facility] Systolic blood pressure 2023-05-01 15:23:00 144 mm[Hg] [facility] Diastolic blood pressure 2023-05-01 15:23:00 89 mm[Hg] [facility] Heart rate 2023-05-01 15:23:00 75 /min [facility] Respiratory rate 2023-05-01 15:23:00 17 /min [facility] Body height 2023-05-01 15:23:00 160 cm [facility] Body weight 2023-05-01 15:23:00 135.671 kg Univ [facility] BMI 2023-05-01 15:23:00 52.98 kg/m2 Univ [facility] Oxygen saturation in Arterial blood by Pulse oximetry 2023-05-01 15:23:00 99 /min [facility] Systolic blood pressure 2023-03-20 20:35:00 133 mm[Hg] [facility] Diastolic blood pressure 2023-03-20 20:35:00 94 mm[Hg] [facility] Heart rate 2023-03-20 20:35:00 78 /min [facility] Oxygen saturation in Arterial blood by Pulse oximetry 2023-03-20 20:35:00 95 /min [facility] Body temperature 2023-03-20 20:33:00 36.33 Gem [facility] Respiratory rate 2023-03-20 20:33:00 18 /min [facility] Body height 2023-03-20 20:33:00 160 cm [facility] Body weight 2023-03-20 20:33:00 134.537 kg [facility] BMI 2023-03-20 20:33:00 52.54 kg/m2 [facility] height 2023-02-24 15:00:00 63 [in_i] Commo n [facility] weight 2023-02-24 15:00:00 288 [lb_av] Comm on [facility] temperature 2023-02-24 15:00:00 99.3 [degF] Com mon [facility] bmi 2023-02-24 15:00:00 51.01 kg/m2 Comm on [facility] height 2023-01-24 14:00:00 63 [in_i] Commo n [facility] weight 2023-01-24 14:00:00 292.4 [lb_av] Co mmon [facility] temperature 2023-01-24 14:00:00 97.3 [degF] Com mon [facility] bmi 2023-01-24 14:00:00 51.79 kg/m2 Comm on [facility] oximetry 2023-01-24 14:00:00 99 % Commo n [facility] respiratory rate 2023-01-24 14:00:00 18 /min Common [facility] blood pressure systolic 2023-01-24 14:00:00 137 mm[Hg] Common [facility] blood pressure diastolic 2023-01-24 14:00:00 89 mm[Hg] Common [facility] height 2022-08-31 08:20:00 63 [in_i] Commo n [facility] weight 2022-08-31 08:20:00 278 [lb_av] Comm on [facility] temperature 2022-08-31 08:20:00 98.5 [degF] Com mon [facility] bmi 2022-08-31 08:20:00 49.24 kg/m2 Comm on [facility] height 2022-08-10 10:20:00 63 [in_i] Commo n [facility] weight 2022-08-10 10:20:00 283 [lb_av] Comm on [facility] temperature 2022-08-10 10:20:00 98.5 [degF] Com [facility] bmi 2022-08-10 10:20:00 50.13 kg/m2 Comm on [facility] height 2022-06-22 10:20:00 63 [in_i] Commo n [facility] weight 2022-06-22 10:20:00 276 [lb_av] Comm on [facility] 2022-06-22 10:20:00 48.89 kg/m2 Comm on [facility] height 2022-04-26 17:00:00 63 [in_i] Commo n [facility] weight 2022-04-26 17:00:00 279 [lb_av] Comm on [facility] temperature 2022-04-26 17:00:00 97.9 [degF] Com [facility] bmi 2022-04-26 17:00:00 49.42 kg/m2 Comm on [facility] height 2022-01-05 14:00:00 63 [in_i] Commo n [facility] weight 2022-01-05 14:00:00 297 [lb_av] Comm on [facility] bmi 2022-01-05 14:00:00 52.61 kg/m2 Comm on [facility] blood pressure systolic 2022-01-05 14:00:00 148 mm[Hg] Common [facility] blood pressure diastolic 2022-01-05 14:00:00 102 mm[Hg] Common [facility] height 2021-12-28 16:00:00 63 [in_i] Commo n [facility] weight 2021-12-28 16:00:00 300.4 [lb_av] Co mmon [facility] temperature 2021-12-28 16:00:00 97.3 [degF] Com [facility] bmi 2021-12-28 16:00:00 53.21 kg/m2 Comm on [facility] oximetry 2021-12-28 16:00:00 100 % Commo n [facility] respiratory rate 2021-12-28 16:00:00 18 /min [facility] blood pressure systolic 2021-12-28 16:00:00 137 mm[Hg] [facility] blood pressure diastolic 2021-12-28 16:00:00 83 mm[Hg] Common [facility] height 2021-09-28 09:40:00 63 [in_i] Commo n [facility] weight 2021-09-28 09:40:00 283 [lb_av] Comm on [facility] temperature 2021-09-28 09:40:00 97.9 [degF] Com mon [facility] bmi 2021-09-28 09:40:00 50.13 kg/m2 Comm on [facility] height 2021-08-02 10:00:00 63 [in_i] Commo n [facility] weight 2021-08-02 10:00:00 282.6 [lb_av] Co mmon [facility] temperature 2021-08-02 10:00:00 97.0 [degF] Com mon [facility] bmi 2021-08-02 10:00:00 50.05 kg/m2 Comm on [facility] oximetry 2021-08-02 10:00:00 97 % Commo n [facility] respiratory rate 2021-08-02 10:00:00 16 /min Common [facility] blood pressure systolic 2021-08-02 10:00:00 140 mm[Hg] [facility] blood pressure diastolic 2021-08-02 10:00:00 62 mm[Hg] [facility] Systolic blood pressure 2021-07-04 00:50:00 180 mm[Hg] [facility] Diastolic blood pressure 2021-07-04 00:50:00 110 mm[Hg] [facility] Heart rate 2021-07-04 00:50:00 79 /min [facility] Body temperature 2021-07-04 00:50:00 36.67 Gem [facility] Respiratory rate 2021-07-04 00:50:00 18 /min [facility] Body weight 2021-07-04 00:50:00 121.564 kg [facility] Oxygen saturation in Arterial blood by Pulse oximetry 2021-07-04 00:50:00 99 /min [facility]ica [facility] Heart Rate 2024-04-24 09:11:00 67.00 /min Rhonda mandie Vines Respiratory Rate 2024-04-24 09:11:00 18.00 /min Stef Matthew Mohinder BP Systolic 2024-04-24 09:11:00 137 mm[Hg] Sterling penn Matthew Mohinder BP Diastolic 2024-04-24 09:11:00 85 mm[Hg] Eugene abdalla Matthew Mohinder Weight Measured 2024-04-24 09:11:00 298.00 pounds Stef Matthew Mohinder Height Measured 2024-04-24 09:11:00 63.00 inches Stef F Mohinder Body Temperature 2024-04-24 09:11:00 97.40 degrees Stef F Mohinder Heart Rate 2023-05-27 13:27:31 [facility] Systolic (mm Hg) 2023-05-27 13:25:25 [facility] Diastolic (mm Hg) 2023-05-27 13:25:25 [facility] Temperature Oral (F) 2023-05-27 13:25:01 97.6 F [facility] Height 2023-05-26 15:06:00 5 [ft_i] [facility] Weight 2023-05-26 15:06:00 [facility] BMI Calculated 2023-05-26 15:06:00 M [facility] Systolic (mm Hg) 2023-05-24 16:30:00 [facility] Diastolic (mm Hg) 2023-05-24 16:30:00 [facility] Height 2023-05-24 15:00:00 5 [ft_i] [facility] Weight 2023-05-24 15:00:00 [facility] BMI Calculated 2023-05-24 15:00:00 [facility] BP Systolic 2022-01-21 14:32:00 Step hen F Mohinder BP Diastolic 2022-01-21 14:32:00 Eugene phen F Mohinder Weight Measured 2022-01-21 14:32:00 276.00 pounds Stef F Mohinder Height Measured 2022-01-21 14:32:00 63.00 inches Stef F Mohinedr Body Temperature 2022-01-21 14:32:00 Stef F Mohinder Heart Rate 2022-01-21 14:32:00 Rhonda en F Mohinder Respiratory Rate 2022-01-21 14:32:00 Stef F Mohinder Procedures Procedure Date / Time Performed Performing Clinician Source SLEEP STUDY DATA REPORT 2023-04-11 05:01:00 Doct or Unassigned[facility] HB ECG ROUTINE & RHYTHM STRIP 2023-03-20 20:38:13 Lico Trevizo [facility] ASSIGNMENT OF BENEFITS 2023-03-20 20:13:23 Docto r Unassigned, [facility] REFERRAL- REQUEST/RESPONSE 2023-02-02 05:01:00 D octor Unassigned, [facility] Cardioversion 2023-01-03 05:00:00 Yovani Borjas XR CHEST 1 VW 2021-07-04 01:14[facility] PRACTICES 2021-07-04 00:45:31 Doctor Unassigned, [facility] CONSENT/REFUSAL FOR DIAGNOSIS AND TREATMENT 2021-07-04 00:45:10 Doctor Unassigned, [facility] Repair of small bowel obstruction [facility] Partial hysterectomy Yovani Borjas 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stricture [facility] Cholecyst[facility] Appendectomy [facility] n Plan of Care Planned Activity Planned Date Details Comments Source Goal Plan of Care Note [code = 50054-2] Goal Plan of Care Note [code = 82773-9] Goal Plan of Care Note [code = 29738-6] Goal Plan of Care Note [code = 37038-0] Goal Plan of Care Note [code = 86481-7] Goal Plan of Care Note [code = 75753-5] Goal Plan of Care Note [code = 50456-7] Goal Plan of Care Note [code = 50953-2] Goal Plan of Care Note [code = 19274-3] Goal Plan of Care Note [code = 72471-5] Goal Plan of Care Note [code = 65450-4] Goal Plan of Care Note [code = 40879-6] Goal Plan of Care Note [code = 37569-1] Goal Plan of Care Note [code = 75037-7] Goal Plan of Care Note [code = 21977-4] Goal Plan of Care Note [code = 17960-1] Encounters Start Date/Time End Date/Time Encounter Type Admission Type Attending Clinicians Care Facility Care Department Encounter ID Source 2024-03-12 09:26:00 Outpatient Taylor Chung [facility] [id number] [facility] 2023-09-21 15:25:00 Outpatient Taylor Chung [facility] [id number] [facility] 2023-02-24 14:59:00 Outpatient Taylor Chung [facility] [id number] [facility] 2023-01-23 09:09:00 Outpatient Taylor Chung [facility] [id number] [facility] 2022-12-29 15:24:00 Outpatient Taylor Chung [facility] [id number] [facility] 2022-12-21 09:47:00 Outpatient Karol Rich [facility] [id number] [facility] 2022-06-01 09:18:00 Outpatient Lopez, Na [facility] [id number] [facility] 2022-04-13 15:29:00 Outpatient Lopez, Na [facility] [id number] [facility] 2022-04-07 16:07:00 Outpatient Lopez, Na [facility] [id number] [facility] 2022-01-04 09:31:01 Outpatient Lopez, Na [facility] [id number] [facility] 2021-10-20 14:09:55 Outpatient Lopez, Na [facility] [id number] [facility] 2021-10-20 13:47:22 Outpatient Lopez, Na [facility] [id number] [facility] 2021-10-20 12:29:04 Outpatient Lopez, Na [facility] [id number] [facility] 2021-10-20 12:03:44 Outpatient Lopez, Na STL[facility] [id number] [facility] 2021-10-20 12:03:05 Outpatient Lopez, Na [facility] [id number] [facility] 2021-10-20 11:43:49 Outpatient Lopez, Na [facility] [id number] [facility] 2021-10-20 11:35:56 [facility] [id number] [facility] 2021-10-20 11:18:09 Outpatient Lopez[facility] [id number] [facility] 2021-10-20 11:04:54 Out[facility] [id number] [facility] 2021-10-20 11:04:25 Outpatient Lopez, Na [facility] [id number] [facility] 2025-01-02 00:00:00 2025-01-02 08:34:35 Telephone Guyregina Beverley [facility] OFFICE BUILDING 1.2.840.114 350.1.13.10 4.2.7.2.686 [id number] [facility] 2024-12-24 00:00:00 2024-12-31 09:42:58 Telephone Faith Beverley [facility] OFFICE BUILDING 1.2.840.114 350.1.13.10 4.2.7.2.686 [id number] [facility] 2024-12-25 09:30:00 2024-12-25 09:30:00 Outpatient BEVERLEY BOOGIE RUTH [facility] [id number] [facility] 2024-12-18 10:15:00 2024-12-18 10:15:00 Outpatient CECY CROOKS [facility] [id number] [facility] 2024-11-19 00:00:00 2024-11-19 16:12:37 Telephone FaithBeverley [facility] OFFICE BUILDING 1.2.840.114 350.1.13.10 4.2.7.2.686 [id number] [facility] 2024-11-15 00:00:00 2024-11-15 12:29:34 Telephone Beverley Cuevas [facility] BU[facility] 1.2.840.114 350.1.13.10 4.2.7.2.686 [id number] [facility] 2024-11-15 00:00:00 2024-11-15 12:13:19 Telephone Beverley Cuevas [facility] 1.2.840.114 350.1.13.10 4.2.7.2.686 [id number] [facility] 2024-10-30 00:00:00 2024-10-30 10:34:58 Telephone Beverley Cuevas [facility] MEDICAL OFFICE BUILDING 1.2.840.114 350.1.13.10 4.2.7.2.686 [id number] [facility] 2024-10-30 08:00:00 2024-10-30 08:30:00 Office Visit Beverley Cuevas [facility] 1.2.840.114 350.1.13.10 4.2.7.2.686 [id number] [facility] 2024-10-30 08:00:00 2024-10-30 08:00:00 Outpatient R BEVERLEY CUEVAS RUTH [facility] [id number] [facility] 2024-10-01 14:04:24 2024-10-01 14:04:24 Outpatient SFA [facility] [id number] Stef Vines 2024-10-01 00:00:00 2024-10-01 00:00:00 Outpatient Visit [facility]FA [id number] Stef Vines 2024-04-24 09:01:03 2024-04-24 09:01:03 Outpatient SFA [facility] [id number] Stef Vines 2024-04-24 00:00:00 2024-04-24 00:00:00 Outpatient Visit [facility] [id number] [place] [id number] Stef Vines 2024-04-12 10:00:00 2024-04-12 10:54:35 Outpatient R CECY COVARRUBIAS [facility] [id number] [facility] 2024-04-12 10:00:00 2024-04-12 10:54:35 Office Visit Cecy Covarrubias [facility] 1.2.840.114 350.1.13.10 4.2.7.2.686 [id number] [facility] 2024-03-12 00:00:00 2024-03-12 00:00:00 (TEL) STL[facility]C [facility] [id number] [facility] 2023-10-25 13:15:11 2023-10-25 13:15:11 Outpatient SFA [facility] [id number] Stef Vines 2023-09-21 00:00:00 2023-09-21 00:00:00 (TEL) STLMLC ST[facility] [id number] [facility] 2023-09-20 13:00:00 2023-09-20 13:00:00 Outpatient LICO TELLEZ [facility] [id number] [facility] 2023-09-07 00:00:00 2023-09-07 00:00:00 (TEL) STLMLC [facility] [id number] [facility] 2023-08-28 15:00:00 2023-08-28 15:00:00 Outpatient BEVERLEY BOOGIE RUTH [facility] [id number] [facility] 2023-08-16 00:00:00 2023-08-16 00:00:00 (TEL) STLMLC [facility] [id number] [facility] 2023-08-02 11:00:00 2023-08-02 11:00:00 Outpatient BEVERLEY BOOGIE RUTH [facility] [id number] [facility] 2023-07-25 00:00:00 2023-07-25 00:00:00 Outpatient GC_GCBZW_Ka diyala_S PRIV PRIV [id number] [facility] 2023-07-24 00:00:00 2023-07-24 00:00:00 Outpatient GC_GCBZW_Ka diyala_S PRIV PRIV [id number] [facility] 2023-06-07 00:00:00 2023-06-07 00:00:00 (TEL[facility] [id number] 2023-05-26 21:42:00 2023-05-27 17:29:00 Observatio n [facility] [id number] [facility] 2023-05-26 16:42:00 2023-05-27 12:29:00 Outpatient LIBERTAD AMIR [facility] [id number] [facility] 2023-05-24 12:17:00 2023-05-25 04:59:00 Outpatient [facility] [id number] [facility] 2023-05-24 07:17:00 2023-05-24 23:59:00 Outpatient LIBERTAD, AMIR [facility] [id number] [facility] 2023-05-01 10:30:00 2023-05-01 10:54:08 Outpatient BEVERLEY BOOGIE RUTH [facility] [id number] [facility] 2023-05-01 10:30:00 2023-05-01 10:54:08 Office Visit Beverley Cuevas [facility] OFFICE BUILDING 1.2.840.114 350.1.13.10 4.2.7.2.686 [id number] [facility] 2023-05-01 00:00:00 2023-05-01 00:00:00 Telephone Beverley Cuevas [facility] 1.2.840.114 350.1.13.10 4.2.7.2.686 [id number] [facility] 2023-04-20 11:20:00 2023-04-20 11:20:00 Outpatient JOSÉ LUIS GOVEA CHOCKALINGA M [facility] [id number] [facility] 2023-04-15 00:00:00 2023-04-15 00:00:00 [facility] 1.2.840.114 350.1.13.10 4.2.7.2.686 [id number] [facility] 2023-04-13 00:00:00 2023-04-13 00:00:00 [facility] 1.2.840.114 350.1.13.10 4.2.7.2.686 [id number] [facility] 2023-04-11 13:00:00 2023-04-11 13:15:00 Manager Protein Visit [facility] Sleep [facility] Christina Osorio [facility] 1.2.840.114 350.1.13.10 4.2.7.2.686 [id number] [facility] 2023-04-11 13:00:00 2023-04-11 13:00:00 Outpatient CHRISTINA MONTEIRO STRAMNEdgar [facility] [id number] [facility] 2023-04-11 00:00:00 2023-04-11 00:00:00 Orders Only Doctor Unassigned[facility] 1.2.840.114 350.1.13.10 4.2.7.2.686 [id number] [facility] 2023-03-29 00:00:00 2023-03-29 00:00:00 [facility] 1.2.840.114 350.1.13.10 4.2.7.2.686 [id number] [facility] 2023-03-29 00:00:00 2023-03-29 00:00:00 [facility] 1.2840.114 350.1.13.10 4.2.7.2.686 [id number] [facility] 2023-03-20 15:20:00 2023-03-20 16:49:15 Outpatient R GIOVANNI [facility] [id number] [facility] 2023-03-20 15:20:00 2023-03-20 16:49:15 Office Visit Giovanni [facility] [id number] 350.1.13.10 4.2.7.2.686 [id number] [facility] 2023-03-20 00:00:00 2023-03-20 00:00:00 Orders Only Doctor Unassigned, [facility] 1.2840.114 350.1.13.10 4.2.7.2.686 [id number] [facility] 2023-02-24 00:00:00 2023-02-24 00:00:00 OFFICE VISIT ESTAB PT LEVEL 3 [facility] [id number] [facility] 2023-02-23 00:00:00 2023-02-23 00:00:00 (TEL) [facility] [id number] [facility] 2023-02-02 00:00:00 2023-02-02 00:00:00 Orders Only Doctor Unassigned, [facility] 1.2840.114 350.1.13.10 4.2.7.2.686 [id number] [facility] 2023-01-31 00:00:00 2023-01-31 00:00:00 (TEL) [facility] [id number] [facility] 2023-01-24 00:00:00 2023-01-24 00:00:00 OFFICE VISIT ESTAB PT LEVEL 4 STLMLC STLMLC [id number] [facility] 2022-12-23 00:00:00 2022-12-23 00:00:00 (TEL) STLMLC STLMLC [id number] [facility] 2022-10-27 00:00:00 2022-10-27 00:00:00 (TEL) STLMLC STLMLC [id number] [facility] 2022-08-31 00:00:00 2022-08-31 00:00:00 OFFICE VISIT EST PT LEVEL 3 STLMLC STLMLC [id number] [facility] 2022-08-30 00:00:00 2022-08-30 00:00:00 (TEL) STLMLC STLMLC [id number] [facility] 2022-08-29 15:26:21 2022-08-29 15:26:21 Outpatient [facility] [id number] Stef Matthew Mohinder 2022-08-29 00:00:00 2022-08-29 00:00:00 Outpatient Visit [id number] 2022-08-10 00:00:00 2022-08-10 00:00:00 (TEL) STLMLC STLMLC [id number] [facility] 2022-08-10 00:00:00 2022-08-10 00:00:00 (TEL) STLMLC STLMLC [id number] [facility] 2022-08-10 00:00:00 2022-08-10 00:00:00 (TEL) STLMLC STLMLC [id number] [facility] 2022-08-10 00:00:00 2022-08-10 00:00:00 OFFICE VISIT EST PT LEVEL 3 STLMLC STLMLC [id number] [facility] 2022-07-20 00:00:00 2022-07-20 00:00:00 (TEL) STLMLC STLMLC [id number] [facility] 2022-06-29 00:00:00 2022-06-29 00:00:00 (TEL) STLMLC STLMLC [id number] [facility] 2022-06-22 00:00:00 2022-06-22 00:00:00 OFFICE VISIT EST PT LEVEL 3 STLMLC STLMLC [id number] [facility] 2022-06-20 00:00:00 2022-06-20 00:00:00 (TEL) STLMLC STLMLC [id number] [facility] 2022-06-03 00:00:00 2022-06-03 00:00:00 OFFICE VISIT EST PT LEVEL 3 STLMLC STLMLC [id number] [facility] 2022-05-16 00:00:00 2022-05-16 00:00:00 (TEL) STLMLC STLMLC [id number] [facility] 2022-05-16 00:00:00 2022-05-16 00:00:00 OFFICE VISIT EST PT LEVEL 3 STLMLC STLMLC [id number] [facility] 2022-04-27 00:00:00 2022-04-27 00:00:00 (TEL) STLMLC STLMLC [id number] [facility] 2022-04-26 00:00:00 2022-04-26 00:00:00 (TEL) STLMLC STLMLC [id number] [facility] 2022-04-26 00:00:00 2022-04-26 00:00:00 OFFICE VISIT EST PT LEVEL 3 STLMLC STLMLC [id number] [facility] 2022-04-20 00:00:00 2022-04-20 00:00:00 Outpatient Visit [id number] 2022-03-30 00:00:00 2022-03-30 00:00:00 OFFICE VISIT ESTAB PT LEVEL 4 STLMLC STLMLC [id number] [facility] 2022-02-14 00:00:00 2022-02-14 00:00:00 (TEL) STLMLC STLMLC [id number] [facility] 2022-01-27 00:00:00 2022-01-27 00:00:00 OFFICE VISIT EST PT LEVEL 3 STLMLC STLMLC [id number] [facility] 2022-01-26 00:00:00 2022-01-26 00:00:00 (TEL) STLMLC STLMLC [id number] [facility] 2022-01-18 00:00:00 2022-01-18 00:00:00 (TEL) STLMLC STLMLC [id number] [facility] 2022-01-05 00:00:00 2022-01-05 00:00:00 OFFICE VISIT NEW PT LEVEL 3 STLMLC STLMLC [id number] [facility] 2021-12-28 00:00:00 2021-12-28 00:00:00 OFFICE VISIT ESTAB PT LEVEL 4 STLMLC STLMLC [id number] [facility] 2021-11-15 00:00:00 2021-11-15 00:00:00 (TEL) STLMLC STLMLC [id number] [facility] 2021-11-11 00:00:00 2021-11-11 00:00:00 (TEL) STLMLC STLMLC [id number] [facility] 2021-09-28 00:00:00 2021-09-28 00:00:00 OFFICE VISIT ESTAB PT LEVEL 4 STLMLC STLMLC [id number] [facility] 2021-08-27 00:00:00 2021-08-27 00:00:00 (TEL) STLMLC STLMLC [id number] [facility] 2021-08-04 00:00:00 2021-08-04 00:00:00 (TEL) STLMLC STLMLC [id number] [facility] 2021-08-02 00:00:00 2021-08-02 00:00:00 OFFICE VISIT ESTAB PT LEVEL 4 STLMLC STLMLC [id number] [facility] 2021-07-22 08:00:00 2021-07-22 08:00:00 Outpatient GRABIEL Mayra Blancavini HCAPM RADI [id number] [facility] 2021-07-03 19:47:00 2021-07-03 21:16:00 Emergency Raissa Tran [facility] [id number] [facility] 2021-07-03 19:47:00 2021-07-03 19:47:00 Emergency X [facility] ERT [id number] [facility] 2021-06-07 00:00:00 2021-06-07 00:00:00 Outpatient STLMLC STLMLC [id number] [facility] 2021-05-06 00:00:00 2021-05-06 00:00:00 Outpatient STLMLC STLMLC [id number] [facility] 2021-04-28 00:00:00 2021-04-28 00:00:00 Outpatient STLMLC STLMLC [id number] [facility] 2021-04-27 00:00:00 2021-04-27 00:00:00 Outpatient STLMLC STLMLC [id number] [facility] 2021-03-15 00:00:00 2021-03-15 00:00:00 Outpatient STLMLC STLMLC [id number] [facility] 2021-01-04 00:00:00 2021-01-04 00:00:00 Outpatient STLMLC STLMLC [id number] [facility] 2020-11-03 00:00:00 2020-11-03 00:00:00 Outpatient STLMLC STLMLC [id number] [facility] 2020-08-03 00:00:00 2020-08-03 00:00:00 Outpatient STLMLC STLMLC [id number] [facility] 2020-05-04 10:10:00 2020-05-04 10:10:[address] [facility] [id number] [facility] 2020-05-01 09:40:00 2020-05-01 09:40:[address] [facility] [id number] [facility] 2020-02-19 16:06:00 2020-02-19 16:06:[address] [facility] [id number] [facility] 2019-12-12 15:41:00 2019-12-12 15:41:[address] [facility] [id number] [facility] 2019-09-16 14:40:00 2019-09-16 14:40:[address] [facility] [id number] [facility] 2019-08-15 09:27:00 2019-08-15 09:27:[address] [facility] [id number] [facility] 2019-08-12 09:00:00 2019-08-12 09:00:[address] [facility] [facility] [id number] [facility] 2019-07-31 11:46:00 2019-07-31 11:46:[address] [facility] [id number] [facility] 2019-07-29 09:40:00 2019-07-29 09:40:[address] [facility] [facility] [id number] [facility] 2019-06-02 09:38:00 2019-06-02 09:38:00 [facility] [id number] [facility] 2019-05-31 11:30:00 2019-05-31 11:30:00 [facility] [id number] [facility] 2018-01-19 08:11:00 2018-01-19 08:11:[address] [facility] [facility] [id number] [facility] 2018-01-18 10:15:00 2018-01-18 10:15:[address] [facility] [facility] [id number] [facility] 2017-12-26 09:30:00 2017-12-26 09:30:[address] [facility] [facility] [id number] [facility] 2008-10-21 00:00:00 2008-10-21 11:14:00 Outpatient [facility] [id number] [facility] Results Test Description Test Time Test Comments Results Result Co mments Source [facility]BV2050-73-20 11:57:00* Test Item Value Reference Range Interpretation Comme nts WBC X 10x3 (test code = WBC X 10x3) 9.8 3.7-10.4 RBC X 10x6 (test code = RBC X 10x6) 4.37 4.20-5.40 Hgb (test code = Hgb) 11.3 12.0-16.0 Hct (test code = Hct) 35.0 36.0-48.0 MCV (test code = MCV) 80.0 80.0-98.0 MCH (test code = MCH) 25.8 pg 27.0-31.0 MCHC (test code = MCHC) 32.2 32.0-36.0 RDW (test code = RDW) 15.8 11.5-14.5 Platelet (test code = Platelet) 378 133-450 MPV (test code = MPV) 8.1 7.4-10.4 Segs (test code = Segs) 70.7 45.0-75.0 Lymphocytes (test code = Lymphocytes) 22.0 20.0-40.0 Monocytes (test code = Monocytes) 6.3 2.0-12.0 Basophils (test code = Basophils) 1.0 <=1.0 Neutrophils # (test code = Neutrophils #) 7.0 1.5-8.1 Lymphocytes # (test code = Lymphocytes #) 2.2 1.0-5.5 Monocytes # (test code = Monocytes #) 0.6 <=0.8 Basophils # (test code = Basophils #) 0.1 <=0.2 [facility]ioMUTUICKQVT2543-12-95 21:30:00* Test Item Value Reference Range Interpretation Comme [facility] POC Activated Clotting Time (test code = POC Activated Clotting Time) 232 s [facility] KUVQIXV8297-06-91 17:00:00* Test Item Value Reference Range Interpretation Comme [facility] RBC product (test code = RBC product) Product available (05/26/23 12:00 PM) [facility]7957[facility]00-84 15:07:00* Test Item Value Reference Range Interpretation Comme [facility] U Preg (test code = U Preg) Negative (05/26/23 10:07 AM) [facility] HospitalWuxsfjvMKHHUANSP8723-53-66 14:56:00* Test Item Value Reference Range Interpretation Comme [facility] POC Sodium (test code = POC Sodium) 142 135-145 POC Potassium (test code = P OC Potassium) 3.9 3.5-5.1 POC Chloride (test code = POC Chloride) 105 95-109 POC Carbon Dioxide (test cod e = POC Carbon Dioxide) 25 24-32 POC BUN (test code = POC BUN) 7 7-22 POC Creatinine (test code = POC Creatinine) 0.7 0.5-1.4 POC Glucose (test code = POC Glucose) 89 70-99 POC Ion Ca (test code = POC Ion Ca) 1.22 1.05-1.25 POC Hemoglobin (test code = POC Hemoglobin) 13.3 12.0-16.0 POC Hematocrit (test code = POC Hematocrit) 39.0 36.0-48.0 POC AGAP (test code = POC AGAP) 16.0 10.0-20.0 eGFR (test code = eGFR) 107 [facility] [id number] 14:33:00* Test Item Value Reference Range Interpretation Comme nts ABO/Rh (test code = ABO/Rh) A POS Antibody Scrn (test code = Antibody Scrn) Negative (05/24/23 9:33 AM) [facility] HospitalLkfqpwxEHFCOBMWH5268-12-29 14:33:00* Test Item Value Reference Range Interpretation Comme nts Total Protein (test code = T otal Protein) 8.5 6.4-8.4 Albumin Lvl (test code = Albumin Lvl) 3.2 3.5-5.0 ALT (test code = ALT) 28 <=65 AST (test code = AST) 19 <=37 Alk Phos (test code = Alk Phos) 51 39-136 Bili Total (test code = Bili Total) 0.5 0.2-1.3 Bili Direct (test code = Bili Direct) 0.1 <=0.3 Bili Indirect (test code = B cristian Indirect) 0.4 <=1.0 Globulin (test code = Globulin) 5.3 2.7-4.2 A/G Ratio (test code = A/G Ratio) 0.6 1 0.7-1.6 [facility]IWKGGDCCZE3960-56-32 13:55:00* Test Item Value Reference Range Interpretation Comme nts PT (test code = PT) 13.5 s 12.0-14.7 INR (test code = INR) 1.03 1 0.85-1.17 PTT (test code = PTT) 26.1 s 22.9-35.8 [facility] HospitalUxhwyyzAYMSGLOANS1460-65-35 12:46:00* Test Item Value Reference Range Interpretation Comme nts Eosinophils (test code = Eosinophils) 1.1 <=4.0 Eosinophils # (test code = E osinophils #) 0.1 <=0.5 [facility]-CoV-2 (COVID-19), RT-PCR/IST9440-05-42 07:26:55* Test Item Value Reference Range Interpretation Comments SARS-CoV-2 INTERPRETATION (test code = 00552) NEGATIVE SEE NOTE SARS-CoV-2 R NA NOT DETECTEDNegative results do not preclude SARS-CoV-2 infection and should notbe used as the sole basis for patient management decisions. Negativeresults must be combined with clinical observations, patient history,and epidemiological information. Optimum specimen types and timingfor peak viral levels during infections caused by SARS-CoV-2 have notbeen determined. Collection of multiple specimens or types ofspecimens may be necessary to detect virus. Improper specimencollection and handling, sequence variability under primers/probes,or organism present below the limit of detection may lead to falsenegative results. Positive and negative predictive values oftesting are highly dependent on prevalence. False negative testresults are more likely when prevalence is high. EFFECTIVE 12/06/2021, SPUTUM SPECIMENS CAN NO LONGER BE TESTED WITHTHIS ORDER CODE. FOR SALIVA, ORAL FLUID TESTING AND SPECIMENREQUIREMENTS, PLEASE REFER TO ORDER CODE 3509. SOURCE (test code = 92378) NASOPHARYNGEAL Note: Methodolog y is Ro Charito Real-Time RT-PCR. The expected result or reference range is NEGATIVE (Not Detected). For more information regarding COVID-19 testing to include clinicalinformation, methodology detail, intended use, FDA authorization andrecommended fact sheets for patients or healthcare providers, see [employer] Announcement: SARS-CoV-2 (COVID-19) by NAAT at URL below (note,fact sheets are provided by method given in report:[email or web address] Alternatively, see downloadable PDF fact sheet at:[email or web address] UNLESS OTHERWISE INDICATED, ALL TESTING PERFORMED [facility] [address] [place] [address] ANTHROPOLOGICAL LINGUIST: PRUDENCE SOLIS M.D. CLIA NUMBER [id number] [place]. [id number] SARS-CoV-2 (COVID-19) by RT-PCR (HIGH RISK)2021-12-10 00:00:00* Test Item Value Reference Range Interpretation Comme nts SARS-CoV-2 INTERPRETATION (test code = 95453) NEGATIVE SOURCE (test code = 39663) NASOPHARYNGEAL Steffili VinesHdgxwvNFOQ-MgE-3 (COVID-19) by RT-PCR (HIGH RISK)2021-12-10 00:00:00* Test Item Value Reference Range Interpretation Comme nts SARS-CoV-2 INTERPRETATION (test code = 57853) NEGATIVE SOURCE (test code = 11405) NASOPHARYNGEAL SARS-CoV-2 (COVID-19) by RT-PCR (HIGH RISK)2021-12-10 00:00:00* Test Item Value Reference Range Interpretation Comme nts SARS-CoV-2 INTERPRETATION (test code = 53699) NEGATIVE SOURCE (test code = 06967) NASOPHARYNGEAL SARS-CoV-2 (COVID-19) by RT-PCR (HIGH RISK)2021-12-10 00:00:00* Test Item Value Reference Range Interpretation Comme nts SARS-CoV-2 INTERPRETATION (test code = 96777) NEGATIVE SOURCE (test code = 65205) NASOPHARYNGEAL Stef Castro AustinLipid Panel w/ Chol/HDL Amtzk5666-11-66 00:00:00* Test Item Value Reference Range Interpretation Comme nts Cholesterol, Total (test code = 2093-3) 186 100-199 Triglycerides (test code = 2571-8) 86 0-149 HDL Cholesterol (test code = 2085-9) 59 >39 T. Chol/HDL Ratio (test code = 9830-1) 3.2 0.0-4.4 - CT ABD PELVIS W/DOZL7945-22-26 09:50:00 [facility] 1975 Sex: F Name: SHE FITZGERALD [facility] : 1975 Age/S: 46 / F [id number] [address] [place] Unit #: [id number] Loc: [place] [address] Phys: Vanesa Nunez MD Acct: [id number] Dis Date: Status: REG CLI PHONE #: [phone] Exam Date: 07/22/2021917 FAX #: Reason: CROHNS DISEASE, UNSPECIFIED, WITHOUT COMPLICATI EXAMS: CPT: [id number] CT ABD PELVIS W/CONT 49555 HISTORY: CROHN'S DISEASE, UNSPECIFIED, WITHOUT COMPLICATIONS TECHNIQUE: [...] size is normal. There is no pericardial e ffusion. The liver is homogeneous, free of focal masses and dilated intrahepatic ducts. The gallbladder is absent. The spleen is normal in size and contour. The pancreas is morphologically normal. [place], pancreatic duct dilatation or peripancreatic edema is visible. The adrenal glands are normal in size and contour. Neither cystic nor solid renal masses are visible. No hydronephrosis is seen. No renal calculi or perinephric stranding. The urinary bladder is unremarkable. Stomach and duodenum appear unremarkable. The visualized small bowel is unremarkable without evidence of bowel thickeningor obstruction. There is evidence of right colonic surgery with a suture line in the right upper ab domen. There is mild thickening of the transverse [...] FITZGERALD : 1975 Age/S: 46 / F [facility] Unit #: [id number] Loc: [place] [address] Phys: Vanesa Nunez MD Acct: [id number] Dis Date:Status: REG CLI PHONE #: [phone] Exam Date: 07/22/2021 0918 FAX #: Reason: CROHNS DISEASE, UNSP ECIFIED, WITHOUT COMPLICATI EXAMS: CPT: [id number] CT ABD PELVIS W/CONT 88269 (Continued) IMPRESSION: 1. There is mild diffuse [...] (0950) tSHERINR.NB16 Orig Print D/T: S: 07/22/2021 (4981)PAGE 2 Signed HzbqjvBISFQ-PZS1014-60-28 08:27:00* Test Item Value Reference Range Interpretation Comme nts ISTAT-BUN (test code = BUNP) 8 mg/dL 8-26 N BEDSIDE UXGFLJITXC1597-04-17 08:27:00* Test Item Value Reference Range Interpretation Comme nts BEDSIDE CREATININE (test cod e = CREATBED) 0.6 mg/dL 0.6-1.3 N SARS-COV-2 (COVID19), NAAT [ADDED]2020-10-02 00:00:00* Test Item Value Reference Range Interpretation Comme nts SARS-CoV-2 INTERPRETATION (t est code = 53666) NEGATIVE SOURCE (test code = 37055) NOT SPECIFIED Stef Castro QelyvhKBKV-PSM-2 (COVID19), NAAT [ADDED]2020-10-02 00:00:00* Test Item Value Reference Range Interpretation Comme nts SARS-CoV-2 INTERPRETATION (t est code = 84656) NEGATIVE SOURCE (test code = 91947) NOT SPECIFIED SARS-COV-2 (COVID19), NAAT [ADDED]2020-10-02 00:00:00* Test Item Value Reference Range Interpretation Comme nts SARS-CoV-2 INTERPRETATION (t est code = 85482) NEGATIVE SOURCE (test code = 84883) NOT SPECIFIED SARS-COV-2 (COVID19), NAAT [ADDED]2020-10-02 00:00:00* Test Item Value Reference Range Interpretation Comme nts SARS-CoV-2 INTERPRETATION (t est code = 54306) NEGATIVE SOURCE (test code = 19690) NOT SPECIFIED Stef Castro HyuarkBLVT-HqI-2 (COVID-19) by RT-PCR (HIGH RISK)2020-04-17 00:00:00* Test Item Value Reference Range Interpretation Comme nts SARS-CoV-2 INTERPRETATION (t est code = 82878) NEGATIVE SOURCE (test code = 44630) NOT SPECIFIED SARS-CoV-2 (COVID-19) by RT-PCR (HIGH RISK)2020-04-17 00:00:00* Test Item Value Reference Range Interpretation Comme nts SARS-CoV-2 INTERPRETATION (t est code = 78136) NEGATIVE SOURCE (test code = 72992) NOT SPECIFIED SARS-CoV-2 (COVID-19) by RT-PCR (HIGH RISK)2020-04-17 00:00:00* Test Item Value Reference Range Interpretation Comme nts SARS-CoV-2 INTERPRETATION (t est code = 79535) NEGATIVE SOURCE (test code = 31389) NOT SPECIFIED Stef Castro CoqmjrHOMX-LkX-4 (COVID-19) by RT-PCR (HIGH RISK)2020-04-17 00:00:00* Test Item Value Reference Range Interpretation Comme nts SARS-CoV-2 INTERPRETATION (t est code = 32473) NEGATIVE SOURCE (test code = 80494) NOT SPECIFIED Stef F AustinPOC, COVID 19 Antigen + Flu by SofiaPOC, COVID 19 Antigen + Flu by Jennifer Notes Date/Time Note Provider Source 2025-01-02 08:31:47 Images from the original note were not included. Notification received from [employer]. Fleept sent to patient. Georgia Rodriguez RN [facility] 2024-12-31 09:41:50 Patient was contacted on 12/25/24, no answer, vm was left informing patient [email or web address] only offers telemed for Medicare patients. Left call back number for patient to call back if needed. Hazel Johnson [facility] 2024-12-31 09:13:06 Routed to incorrect PSS pool - [facility] BLS 4 PEDI SPEC PSS Adult Pulmonary for MOB/CLC should be routed to - [facility] BLS 4 ADULT SPEC PSS Mable Lester [facility] 2024-12-25 10:27:55 She Fitzgerald is a 49 year old female Pt is returning call please contact pt [phone] (home) [phone] (work) Jose Martin Hanson [facility] 2024-12-24 16:32:13 She Fitzgerald is a 49 year old female Pt is requesting a virtual or telephone consultation for her appointment tomorrow at 9:30am. Please contact and advise, thank you! Cherrie Dao [facility] 2024-11-19 16:12:25 Sleep study uploaded to DME via TMAT. 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 Calling stating that DME/insurance is requesting sleep study results prior to ordering CPAP machine so they can cover it. Plz adv. Duarte [facility] 2024-11-15 12:13:50 Sent to [facility] and charted in separate encounter. Messaged pt. Grant RN [facility] 2024-11-15 12:09:26 Images from the original note were not included. New start DME The following has been sent to the provider for completion via parachute/FAX Orders pended for [employer] company Prescription for CPAP Sleep study /data report dated - 04/11/2023 Demographics - Face sheet Insurance Information Progress Notes from office visit prior to sleep study - 03/20/2023 Follow up due 31-90 days following initiation of any device. New device: choice mask, reg tubing APAP therapy pressure settings 5-73goM0U with EPR:3cmH2O and heated humidification with choice mask. Ramp Time: 30 minutes, Starting pressure: 4cmH2O DME Per insurance coverage Make visible on Airview under Yesica Shepard Grant RN [facility] 2024-11-15 10:49:58 She Fitzgerald is a 49 year old female Patient is out of network with the medical supplier that her CPAP was sent to. She is needing it sent somewhere else. Please advise. Akins [facility] 2024-10-30 10:05:38 Images from the original note were not included. New start DME The following has been sent to the provider for completion via parachute/FAX Orders pended for [employer] DME company Prescription for APAP Sleep study /data report dated 04.11.23 Demographics - Face sheet Insurance Information Progress Notes from office visit prior to sleep study - 03.20.23 Follow up due 31-90 days following initiation of any device. New device: choice mask, reg tubing APAP therapy pressure settings 5-31lcT9I with EPR:3cmH2O and heated humidification with choice mask. Ramp Time: 30 minutes, Starting pressure: 4cmH2O DME Per insurance coverage Make visible on Airview under Yesica Shepard OMER MANAGEMENT SPECIALIST Georgia Rodriguez RN [facility]2024-07-31 00:00:00 [facility] 11:26:15 Images from the original note were not included. New device: choice mask, reg tubing APAP therapy pressure settings 5-33lcD5D with EPR:3cmH2O, Ramp time: 30 minutes, Starting pressure:4cmH2O and heated humidification with choice mask. DME Per insurance coverage New start DME The following has been sent to the provider for completion via parachute/FAX Orders pended for [employer] DME company Prescription for BIPAP Sleep study /data report dated - 04/11/23 Demographics - Face sheet Insurance Information Progress Notes from office visit prior to sleep study - 03/20/23 Follow up due 31-90 days following initiation of any device. T Georgia Rodriguez [facility]368[facility]-70 08:08:01 Spoke with patient who states she went to the ER on Monday with severe leg cramps and nausea. Shewas taken off Dyazide because the leg cramps can be a side effect. She was started on chlorthalidone 25 mg daily. She started this medication yesterday. Her BP yesterday was 160/100. She states she does not having the swelling in hands/feet at this time. Advised her to watch BP pressure and call clinic if it continues to be elevated. Yesica Reyes [facility] HospitalCphmep5342-00-49 08:43:37 She Fitzgerald is a 48 year old female Pt is calling to let the know that her Rx med. Prescribed by the DrRukhsana on 04/13/23 was stopped by the providers at the ED today . Eva CamargoMadison HealthTymelk5585-89-82 13:42:32 Pt has been scheduled with Dr. Osorio. Jamarcus De La PazMadison HealthYajlom1586-45-44 11:57:25 Will route to [facility] for scheduling. Marya Ahuja MAMadison HealthXzxzjf7606-35-63 11:53:49 Also make appointment with sleep medicine Dr. Osorio for sleep apnea. Sleep apnea can cause swelling and high blood pressure. [facility]2023-07-20 11:41:[address] Trevizo recommendation to start the new medication and Keep BP log, patient verbalized understanding with no further questions. Sent new Rx to patient pharmacy of choice. Dr. Trevizo also wants her to see Dr. Osorio for sleep apena, patient stated she just had her sleep stud done Monday04/10/23 [place] [id number] 11:34:09 Also make appointment with sleep medicine Dr. Osorio for sleep apnea. Sleep apnea can cause swelling and high blood pressure. [place] [id number] 11:31:59 Add Dyazide 37.5/25 mg daily. Keep BP log. Keep appointment as scheduled. Low- salt diet. [facility] [id number] 11:24:[address] Trevizo for further assistance [facility] [id number] 10:08:51 She Fitzgerald is a 48 year old female Pt is having high blood pressure and swelling in hand and legs Please advise [phone] (home) [phone] (work) [facility] Niko Tabor [facility]2023-06-26 15:20:00Addended by: LICO TREVIZO MD on: 04/13/2023 11:34 AM Modules accepted: Orders [facility]
--- NOTE | 2025-01-02 11:33 | RAD REPORT ---
Procedure: Chest Single View HISTORY: Chest pain COMPARISON: September 2024 FINDINGS: The lungs appear clear of acute infiltrate. No significant pleural effusion noted. The heart is normal size. IMPRESSION: No acute abnormality is displayed.
[2025-01-02] MEDS ORDERED: ASPIRIN 81 MG CHEWABLE TABLET ONE (11:52)
[2025-01-02 12:26] LABS: PT Prothrombin Time 12.3 SECONDS (10-13.0); Protime INR 1.08
[2025-01-02 12:34] LABS: Absolute Basophils 0.1 K/uL (0-0.5); Absolute Eosinophils 0.1 K/uL (0-0.5); Absolute Lymphocytes (CBC) 3.1 K/uL (0.7-4.9); Absolute Monocytes 0.7 K/uL (0.1-1.3); Absolute Neutrophil 3.5 K/uL (1.8-8.0); Eosinophils % 1.1 % (0-4.4); Hematocrit 37.7 % (36.0-45.0); Hemoglobin 12.5 g/dL (12.0-15.0); Lymphocytes % 41.8 % (15.3-44.8); MCH 25.4 pg (27.0-35.0); MPV 8.7 fL (7.6-11.3); Monocytes % 8.9 % (3.3-12.3); Neutrophils % 47.2 % (41.7-73.7); Nucleated Red Blood Cells % 0.1 % (0-0); Platelets 409 thou/uL (152-406); Red Cell Distribution Width 16.2 % (12.1-15.2)
[2025-01-02 12:48] LABS: ALT/SGPT 23 U/L (13-56); AST/SGOT 17 U/L (15-37); Albumin 2.7 g/dL (3.4-5.0); Albumin/Globulin Ratio 0.6 (1.1-1.8); Alkaline Phosphatase 59 U/L (45-117); Anion Gap 32.4 mEq/L (5.0-15.0); BUN Blood Urea Nitrogen 9 mg/dL (7-18); Bicarbonate 19 mEq/L (21-32); Bilirubin Total 0.5 mg/dL (0.2-1.0); Globulin 4.9 g/dL (2.3-3.5); Glomerular Filtration Rate 107 ml/min (=/>90); Glucose Level 85 mg/dL (74-106); Magnesium 2.2 mg/dL (1.6-2.4); NT PRO-BNP 19 pg/mL (<125); Potassium 3.4 mEq/L (3.5-5.1); Protein, Total 7.6 g/dL (6.4-8.2); Sodium Level 143 mEq/L (136-145); Troponin High Sensitivity 4.6 pg/mL (<58.9)
[2025-01-02 12:57] LABS: Bilirubin Direct < 0.2 mg/dL (0-0.2); Bilirubin Indirect, Calculated 0.3 mg/dL (0.2-0.8)
--- NOTE | 2025-01-02 14:45 | EDPHYS ---
Physician Documentation [facility] Name: Dori Guardado Age: 49 yrs Sex: Female : 1975 Arrival Date: 01/02/2025 Time: 10:47 Bed 5 Private MD: ED Physician Camilo Marie HPI: 01/02 11:27 This 49 yrs old Black Female presents to ER via Ambulatory with complaints of Chest ms3 Pain. 11:27 49-year-old female with past medical history of atrial fibrillation, bowel obstruction, ms3 Crohn's disease, hypertension presents to the emergency department for left sided chest pain that is described as burning that began at 4 PM yesterday. Patient states the pain does radiate to the left arm. Patient states the pain subsided overnight and returned again this morning. Patient states pain is currently 5/10. She denies any alleviating or inciting factors.. 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 - Infectious Disease History:: Denies. - Social history:: Smoking status: Patient denies any tobacco usage or history of. ROS: 11:27 Constitutional: Negative for fever, and chills. Cardiovascular: Negative for chest ms3 pain, and palpitations. Respiratory: Negative for shortness of breath, cough, wheezing, and pleuritic chest pain, 11:27 MS/Extremity: Negative for injury and deformity, Skin: Negative for injury, rash, and discoloration, 11:27 Abdomen/GI: Positive for abdominal pain, nausea and vomiting, Exam: 11:27 Constitutional: This is a well developed, well nourished patient who is awake, alert, ms3 and in no acute distress. Cardiovascular: Regular rate and rhythm with a normal S1 and S2. No gallops, murmurs, or rubs. Normal PMI, no JVD. No pulse deficits. Respiratory: Lungs have equal breath sounds bilaterally, clear to auscultation and percussion. No rales, rhonchi or wheezes noted. No increased work of breathing, no retractions or nasal flaring. Skin: Warm, dry with normal turgor. Normal color with no rashes, no lesions, and no evidence of cellulitis. 11:27 Chest/axilla: Inspection: normal, Palpation: tenderness, that is moderate, of the anterior aspect of left upper chest, 12:14 ECG was reviewed by the Attending Physician. ms3 Vital Signs: 11:00 BP 140 / 86; Pulse 64; Resp 18; Temp 97.2; Pulse Ox 98% on R/A; Weight 122.47 kg; ll1 Height 5 ft. 3 in. ; Pain 5/10; 13:41 BP 139 / 95; Pulse 61; Resp 18; Pulse Ox 99% ; cm10 14:35 BP 144 / 105; Pulse 62; Resp 15; Pulse Ox 97% ; cm10 11:00 Body Mass Index 47.83 (122.47 kg, 160.02 cm) ll1 11:00 Pain Scale: Adult ll1 MDM: 11:15 Medical Screening Exam initiated ms3 11:27 Differential diagnosis: abnormal EKG, acute myocardial infarction, anxiety, chest wall ms3 pain. 21:35 HEART Score: History: Slightly Suspicious (0), ECG: Normal (0), Age: > 45 and < 65 ms3 years (1), Risk Factors: 1 or 2 risk factors (1), [Hypertension] Troponin: < or = 1 x Normal Limit (0), Total Score = 2. The patient was given aspirin in the Emergency Department. Data reviewed: vital signs, nurses notes, lab test result(s), EKG, radiologic studies, and as a result, I will discharge patient. Consideration of Admission/Observation Escalation of care including admission/observation considered. Heart score 2. I considered the following discharge prescriptions or medication management in the emergency department Medications were administered in the Emergency Department. See MAR. Independent interpretation of the following test(s) in the Emergency Department EKG: See my EKG interpretation above. Counseling: I had a detailed discussion with the patient and/or guardian regarding the historical points, exam findings, and any diagnostic results supporting the discharge/admit diagnosis, lab results, radiology results, the need for outpatient follow up, to return to the emergency department if symptoms worsen or persist or if there are any questions or concerns that arise at home. Special discussion: I discussed with the patient/guardian in detail that at this point there is no indication for admission to the hospital. It is understood, however, that if the symptoms persist or worsen the patient needs to return immediately for re-evaluation. 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 If discussed labs and normal first troponin with patient. Patient to follow-up with cardiology 2 to 3 days. All questions were answered. Return precautions discussed include worsening symptoms, or any other concerns. 01/02 10:56 Order name: Basic Metabolic Panel; Complete Time: 14:37 ms3 01/02 10:56 Order name: CBC with Diff; Complete Time: 12:48 ms3 01/02 10:56 Order name: LFT's; Complete Time: 14:37 ms3 01/02 10:56 Order name: Magnesium; Complete Time: 14:37 ms3 01/02 10:56 Order name: NT PRO-BNP; Complete Time: 14:37 ms3 01/02 10:56 Order name: PT-INR; Complete Time: 12:48 ms3 01/02 10:56 Order name: Troponin HS; Complete Time: 14:37 ms3 01/02 10:56 Order name: XRAY Chest (1 view); Complete Time: 11:58 ms3 01/02 10:56 Order name: Cardiac monitoring; Complete Time: 11:53 ms3 01/02 10:56 Order name: EKG - Nurse/Tech; Complete Time: 11:53 ms3 01/02 10:56 Order name: IV Saline Lock; Complete Time: 11:53 ms3 01/02 10:56 Order name: Labs collected and sent; Complete Time: 11:53 ms3 01/02 10:56 Order name: O2 Per Protocol; Complete Time: 11:53 ms3 01/02 10:56 Order name: O2 Sat Monitoring; Complete Time: 11:53 ms3 01/02 12:03 Order name: Labs - recollect needed: green and blue; Complete Time: 12:17 bc6 EC:14 Rate is 61 beats/min. Rhythm is regular. QRS [place] is Normal. NC interval is normal. QRS ms3 interval is normal. Clinical impression: Normal ECG. Interpreted by me. Reviewed by me. Administered Medications: 11:53 Drug: Aspirin PO Chewable Tablet 324 mg PO once; 81 mg tablets x 4 Route: PO; cm10 15:07 Follow up: Response: No adverse reaction cm10 Disposition Summary: 01/02/25 14:45 Discharge Ordered Notes: Location: Home ms3 Condition: Stable ms3 Diagnosis - Chest pain, unspecified ms3 Followup: ms3 - With: Avery Holt MD - When: 2 - 3 days - Reason: Recheck today's complaints Discharge Instructions: - Discharge Summary Sheet ms3 - Nonspecific Chest Pain, Adult ms3 Forms: - Medication Reconciliation Form ms3 - Antibiotic Education ms3 - Prescription Opioid Use ms3 - Patient Portal Instructions ms3 - Leadership Thank You Letter ms3 Signatures: Dispatcher [employer] EDMS Staci Tran RN RN iw Desirae Mckee RN RN ll1 Camilo Marie DO DO ms3 Tatiana Castellanos 6 Janel Dejesus RN RN cm10 Corrections: (The following items were deleted from the chart) 10:57 10:57 BASIC METABOLIC PANEL+C.LAB.BRZ ordered. EDMS EDMS 10:57 10:57 CBC+H.LAB.BRZ ordered. EDMS EDMS 10:57 10:57 HEPATIC FUNCTION+C.LAB.BRZ ordered. EDMS EDMS 10:57 10:57 MAGNESIUM+C.LAB.BRZ ordered. EDMS EDMS 10:57 10:57 PROBNP+C.LAB.BRZ ordered. EDMS EDMS 10:57 10:57 PROTIME (+INR)+COAG.LAB.BRZ ordered. EDMS EDMS 10:57 10:57 Troponin High Sensitivity+C.LAB.BRZ ordered. EDMS EDMS 10:57 10:57 Chest Single View+RAD.RAD.BRZ ordered. 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 If discussed labs and normal first troponin with patient. Patient to follow-up with primary care physician 2 to 3 days. All questions were answered. Return precautions discussed include worsening symptoms, or any other concerns. ms3
--- NOTE | 2025-01-02 14:45 | ER ---
Nurse's Notes [facility] Name: Dori Guardado Age: 49 yrs Sex: Female : 1975 Arrival Date: 01/02/2025 Time: 10:47 Bed 5 Private MD: Diagnosis: Chest pain, unspecified Presentation: 01/02 11:00 Chief complaint: Patient states: CP off/on since last night. Coronavirus screen: Client ll1 denies travel out of the [place] in the last 14 days. At this time, the client does not indicate any symptoms associated with coronavirus-19. Ebola Screen: Patient denies travel to an Ebola-affected area in the 21 days before illness onset. Initial Sepsis Screen: Does the patient meet any 2 criteria? No. Patient's initial sepsis screen is negative. Does the patient have a suspected source of infection? No. Patient's initial sepsis screen is negative. Risk Assessment: Do you want to hurt yourself or someone else? Patient reports no desire to harm self or others. Onset of symptoms was January 01, 2025. 11:00 Method Of Arrival: Ambulatory ll1 11:00 Acuity: KASH 3 ll1 Triage Assessment: 11:01 General: Appears uncomfortable, Behavior is calm, cooperative, appropriate for age. ll1 Pain: Complains of pain in chest Pain currently is 5 out of 10 on a pain scale. Quality of pain is described as pressure. Cardiovascular: Reports chest pain, shortness of breath. KICK BOXER: 15:06 LMP N/A - Hysterectomy, Not cm10 Historical: - Allergies: 10:56 No Known Allergies; iw - PMHx: 10:56 Atrial Fib; bowel obstruction; Crohn's; DVT; Hypertension; iw - PSHx: 10:56 ablation; Cholecystectomy; partial hysterectomy; section; iw - Immunization history:: Adult Immunizations up to date. - Infectious Disease History:: Denies. - Social history:: Smoking status: Patient denies any tobacco usage or history of. Screenin:50 [facility] ED Fall Risk Assessment (Adult) History of falling in the last 3 months, cm10 including since admission No falls in past 3 months (0 pts) Confusion or Disorientation No (0 pts) Intoxicated or Sedated No (0 pts) Impaired Gait No (0 pts) Mobility Assist Device Used No (0 pt) Altered Elimination No (0 pt) Score/Fall Risk Level 0 - 2 = Low Risk Oriented to surroundings, Maintained a safe environment, Hourly rounding (assess needs \T\ fall precautionary measures) done. Abuse screen: Denies threats or abuse. Denies injuries from another. Nutritional screening: No deficits noted. Tuberculosis screening: No symptoms or risk factors identified. Assessment: 11:50 General: Appears in no apparent distress. uncomfortable, Behavior is calm, cooperative. cm10 Pain: Complains of pain in anterior aspect of left upper chest Pain does not radiate. Pain currently is 5 out of 10 on a pain scale. Pain began 2-3 days ago. Neuro: No deficits noted. Level of Consciousness is awake, alert, obeys commands, Oriented to person, place, time, situation, Appropriate for age. Cardiovascular: Chest pain is described as Pain is 5 out of 10 on a pain scale. is located in left. Respiratory: No deficits noted. Airway is patent Respiratory effort is even, unlabored, Respiratory pattern is regular, symmetrical. Derm: Skin is healthy with good turgor. 14:41 Reassessment: pts IV not pulling back. Pt states that she would like to go home. cm10 Provider made aware. Vital Signs: 11:00 BP 140 / 86; Pulse 64; Resp 18; Temp 97.2; Pulse Ox 98% on R/A; Weight 122.47 kg; ll1 Height 5 ft. 3 in. ; Pain 5/10; 13:41 BP 139 / 95; Pulse 61; Resp 18; Pulse Ox 99% ; cm10 14:35 BP 144 / 105; Pulse 62; Resp 15; Pulse Ox 97% ; cm10 11:00 Body Mass Index 47.83 (122.47 kg, 160.02 cm) ll1 11:00 Pain Scale: Adult ll1 ED Course: 10:53 Patient arrived in ED. al6 10:56 Camilo Marie DO is Attending Physician. ms3 10:56 Arm band placed on Patient placed in an exam room, on a stretcher. iw 11:01 Triage completed. ll1 11:15 XRAY Chest (1 view) In Process Unspecified. EDMS 11:29 Janel Dejesus, RN is Primary Nurse. cm10 11:50 Patient has correct armband on for positive identification. Bed in low position. Call cm10 light in reach. Side rails up X2. Client placed on continuous cardiac and pulse oximetry monitoring. NIBP monitoring applied. shelter monitor on. :53 EKG done, by ED staff, reviewed by Camilo Marie DO. kb4 11:53 Accessed peripheral vein via ultrasound, utilizing dynamic ultrasound technique Blood cm10 collected. Clean \T\ dry. Dressing intact. Good blood return. Flushes easily. 20G RIGHT FOREARM. 14:44 Avery Holt MD is Referral Physician. ms3 15:05 No provider procedures requiring assistance completed. IV discontinued, intact, cm10 bleeding controlled, No redness/swelling at site. Pressure dressing applied. Patient maintains SpO2 saturation greater than 95% on room air. 15:06 Provided Education on: follow-up instructions. cm10 Administered Medications: :53 Drug: Aspirin PO Chewable Tablet 324 mg PO once; 81 mg tablets x 4 Route: PO; cm10 15:07 Follow up: Response: No adverse reaction cm10 Medication: 11:50 VIS not applicable for this client. cm10 Outcome: 14:45 Discharge ordered by . ms3 15:05 Discharged to home ambulatory, cm10 15:05 Condition: good 15:05 Discharge instructions given to patient, Instructed on discharge instructions, follow up and referral plans. Demonstrated understanding of instructions, follow-up care, 15:06 Patient left the ED. cm10 Signatures: Dispatcher [employer] EDMS Staci Tran RN RN iw Desirae Mckee RN RN ll1 Camilo Marie DO DO ms3 Janel Dejesus RN RN cm10 Cami Uribe al6 Britney Mcfarland kb4 Corrections: (The following items were deleted from the chart) 11:03 11:00 Resp 18bpm; Temp 97.2F; 122.47 kg; Height 5 ft. 3 in.; BMI: 47.8; Pain 5/10, ll1 Adult; ll1
[2025-01-02 15:17] VITALS: TEMP 97.2
[2025-01-02 15:19] VITALS: BP 144/105; O2SAT 97
--- NOTE | 2025-01-03 14:18 | EKG ---
Test Date: 2025-01-02 Test Time: 11:49:51 Receiving Coordinator: JEFFERY MEASUREMENT RESULTS: Intervals: Rate: 61 CT: 164 QRSD: 80 QT: 418 QTc: 420 [place]: P: 36 CT: 164 QRS: 11 T: 5 INTERPRETIVE STATEMENTS: Normal sinus rhythm Normal ECG Compared to ECG 10/18/2024 19:56:30 T-wave abnormality no longer present Possible ischemia no longer present Electronically Signed On 01-03-25 14:13:41 CDT by Jeff Dasilva
== END 2025-01-02 15:06 | disposition home or self-care (01) ==
LOC: ER 10:47
DX: R07.9 Chest pain, unspecified (principal); I48.91 Unspecified atrial fibrillation; I10 Essential (primary) hypertension; Z86.718 Personal history of other venous thrombosis and embolism
CPT/HCPCS: 36415; 71045; 80048; 80076; 83735; 83880; 84484; 85025; 85610; 93005; 99285

== ENCOUNTER 2025-02-10 18:47 | Emergency (ER) | payer OTHER ==
--- OUTSIDE RECORDS SUMMARY | 2025-02-10 18:54 | XMS REPORT | Continuity of Care Document ---
Author Name Unknown Address [address] [place] [address] Organization [facility] [place] Address [address] [place] [address] Care Team Providers Care Wanigan Clerk Name Role Phone Lion FU Chanell Primary Care Physician Taylor Chung Attending Clinician Unavailable Karol Rich Attending Clinician Unavailable Noemy Lopez Attending Clinician Unavailable Beverley Jackson Attending Clinician BEVERLEY CUEVAS Attending Clinician UnavailBEVERLEY Pagan Attending Clinician Unavailabl CECY Robbins Attending Clinician Unavailable LICO TREVIZO Attending Clinician Unavailable [email or web address] Attending Clinician Unavaila CHRISTINA Osullivan Attending Clinician Unavaila CHRISTINA Osullivan Attending Clinician Unavaila CHAKA Campa Attending Clinician Unavailable MAC LEWIS Attending Clinician UnaMAC Villasenor Attending Clinician Unashamir Trevizo MD, Lico Attending Clinician [phone] [facility] Attending Clinician UnavailChristina Yeung MD Attending Clinician + [phone] Doctor Unassigned, Arnold Line Attending Clinician U Vanesa Barakat Attending Clinician Unavailable Raissa Tran DO Attending Clinician [phone] [email or web address] Admitting Clinician Unavaila Noemy De La Torre Admitting Clinician Unavailable Payers Payer Name Policy Type Policy Number Effective Date Expirati on Date Source [place] [id number] 2020 00:00:00 [place] [address] [id number] 2020 00:00:00 [place] [address] [id number] 2020 00:00:00 [facility] Problems Condition Name Condition Details Condition Category Status Onset Date Resolution Date Last Treatment Date Treating Clinician Comments Source AFIB/I48.0 AFIB/I48.0 Active 04/18/2023 [facility] Diagnosis Active 04-18 00:00: 00 2023-05-30 09:01:00 Yovani Borjas Gastroesop hageal reflux disease (disorder) Gastroesop hageal reflux disease (disorder) [facility] Problem Active 2023-05-30 00:40:15 Memkorin Borjas Hypertensi ve disorder, systemic arterial (disorder) Hypertensi ve disorder, systemic arterial (disorder) Active [facility] Problem Active 2023-05-30 00:40:15 Yovani Borjas Rheumatoid arthritis (disorder) Rheumatoid arthritis (disorder) Active Problem [facility] Problem Active 2023-05-30 00:40:15 Yovani Borjas Sleep apnea (finding) Sleep apnea (finding) Active Problem 05/[facility] Problem Active 2023-05-30 00:40:15 Yovani Borjas PAROXYSMAL ATRIAL FIBRILLATI ON PAROXYSMAL ATRIAL FIBRILLATI ON Active [facility] Diagnosis Active 2023-05-30 09:01:00 Yovani Borjas Crohn's disease (disorder) Crohn's disease (disorder) Active [facility] Problem Active 2023-05-30 00:40:15 Yovani Borjas [id number] Microcytic anemia Problem [facility] [id number] Pain, joint, knee, right Problem [facility] [id number] Sinusitis, maxillary, chronic Problem [facility] [id number] Recurrent falls Problem [facility] [id number] Balance problem Problem [facility] Morbid obesity Obesity, morbid, BMI 50 or higher Problem [facility] [id number] Crohn's disease in remission Problem [facility] Iron deficiency anemia Iron deficiency anemia, unspecifie d iron deficiency anemia type Problem [facility] [id number] Adult general medical exam Problem [facility] [id number] Hematuria, unspecifie d Problem [facility] [id number] Multiple joint pain Problem [facility] [id number] Urinary tract infection, site not specified Problem [facility] [id number] Body mass index [BMI] 50.0-59.9, adult Problem [facility] [id number] Vitamin D deficiency Problem [facility] [id number] Grieving Problem [facility] [id number] Seasonal allergic rhinitis, unspecifie d trigger Problem [facility] [id number] Abdominal bloating Problem [facility] [id number] Seasonal allergic rhinitis due to pollen Problem [facility] Mixed anxiety and depressive disorder Depression with anxiety Problem [facility] [id number] Other chronic pain Problem [facility] [id number] Esophageal stricture Problem [facility] [id number] Morbid (severe) obesity due to excess calories Problem [facility] [id number] Essential hypertensi on Problem [facility] [id number] Atrial fibrillati on, unspecifie d type Problem [facility] No known active problems No known active problems Disease [facility] Allergies, Adverse Reactions, Alerts Allergy Name Allergy Type Status Severity Reaction(s) Onset Date Inactive Date Treating Clinician Comments Source No Known Allergie s DA Active U 2020-09 00:00: 00 [facility] [place] No Known Allergie s DA Active U 2020-09 00:00: 00 [facility] [place] No Known Medicati on Allergie s No Known Medicati on Allergie s Active [facility] NKFA NKFA Active [facility] NO KNOWN ALLERGIE S Drug Class Active [facility] Social History Social Habit Start Date Stop Date Quantity Comments Source History of Tobacco Use [facility] Sex Assigned At [facility] Gender identity [facility] Sexual orientation U [facility] History of Social function 2024-10-30 00:00:00 2024-10-30 00:00:00 [facility] Alcoholic beverage intake 2024-10-30 00:00:00 2024-10-30 00:00:00 Ex-drinker (finding) [facility] Tobacco use and exposure 2023-03-20 00:00:00 2023-03-20 00:00:00 Smokeless tobacco non-user [facility] Smoking Status Start Date Stop Date Source Tobacco smoking consumption unknown [facility] Never smoked tobacco [facility] Medications Ordered Medication Name Filled Medication Name Start Date Stop Date Current Medication? Ordering Clinician Indication Dosage Frequency Signature (SIG) Comments Components Source amiodarone 200 mg tablet 10-29 00:00: 00 Yes 200mg Take 1 tablet by mouth in the morning and 1 tablet in the evening. [facility] chlorhexidi ne gluconate 0.12 % mouthwash 04-24 00:00: 00 Yes % [facility] metroNIDAZO LE 500 mg tablet 04-12 10:11: 20 04-12 00:00 :00 No 500mg Take 1 tablet by mouth every 12 (twelve) hours. [facility] adalimumab- adaz 40 mg/0.4 mL PnIj 16 00:00: 00 Yes [facility] pantoprazol e 40 mg EC tablet 02-28 00:00: 00 Yes 40mg Take 1 tablet by mouth every morning. [facility] TAKE 1 TABLET BY MOUTH TWICE DAILY [...] 00:00: 00 Yes [facility] AMOX/K CLAV [id number] 9581-1 1-19 00:00: 00 Yes [facility] TAKE [...] 5 DAYS 06-07 00:00: 00 Yes [facility] TAKE 1 CAPSULE BY MOUTH EVERY 12 [...] 05-17 00:00: 00 Yes 40mg 1 tablet. [facility] levocetiriz ine 5 mg tablet 05-17 00:00: 00 Yes 5mg 1 tablet. [facility] chlorthalid one 25 mg tablet 05-01 10:24: 11 Yes 25mg Take 1 tablet by mouth in the morning. [facility] chlorthalid one 25 mg tablet 04-17 08:13: 44 Yes 25mg Take 1 tablet by mouth in the morning. [facility] CHLORTHALID 04-15 00:00: 00 Yes [facility] [...] Take 1 capsule by mouth every morning. [facility] HUMIRA PEN INJ 40/0.4ML 04-10 00:00: 00 [...] the AM and 40 mg in PM [facility] apixaban 5 mg tablet 03-29 14:59: 32 03-29 00:00 :00 No 5mg Take 1 tablet by mouth in the morning and 1 tablet in the evening. [facility] TAKE 1/2 TABLET BY MOUTH IN THE MORNING AND IN THE EVENING. PATIENT TAKE 40 MG IN THE AM AND 40 MG IN THE EVENING 03-29 00:00: 00 Yes 80 [facility] sotaloL 80 mg tablet 03-29 00:00: 00 Yes [id number] 80mg Take 1 tablet by mouth in the morning and 1 tablet in the evening. Pt takes 40 mg in the AM and 40 mg in PM [facility] apixaban 5 mg tablet 03-29 00:00: 00 Yes 1358 5mg Take 1 tablet by mouth in the morning and 1 tablet in the evening. Indication s: atrial fibrillati on [facility] sotaloL 80 mg tablet 03-29 00:00: 00 Yes [id number] 40mg Take 0.5 tablets by mouth in the morning and 0.5 tablets in the evening. Pt takes 40 mg in the AM and 40 mg in PM [facility] SWISH 4ML IN THE MOUTH AND RETAIN FOR LONG POSSIBLE BEFORE SWALLOWING FOUR TIMES DAILY 03-21 00:00: 00 Yes [facility] DICYCLOMINE 03-21 00:00: 00 Yes [facility] adalimumab (HUMIRA,CF, PEN SC) 03-20 15:30: 35 Yes inject under the skin. [facility] dicyclomine 10 mg capsule 03-20 15:30: 35 Yes 10mg Take 1 capsule by mouth as needed for Abdominal pain. [facility] metroNIDAZO LE 500 mg tablet 03-20 15:30: 35 Yes 500mg Take 1 tablet by mouth every 12 (twelve) hours. [facility] sotaloL 80 mg tablet 03-20 15:30: 35 Yes 80mg Take 1 tablet by mouth in the morning and 1 tablet in the evening. Pt takes 40 mg in the AM and 40 mg in PM [facility] apixaban 5 mg tablet 03-20 15:30: 35 Yes 5mg Take 1 tablet by mouth in the morning and 1 tablet in the evening. [facility] BUPROPION HCL ORAL 03-20 15:30: 35 04-12 00:00 :00 No 500mg Take by mouth daily. [facility] TAKE 1 TABLET BY MOUTH EVERY 6 HOURS 30 MINUTES BEFORE MEALS 03-12 00:00: 00 Yes [facility] TAKE 1 TABLET BY MOUTH EVERY 8 HOURS 03-10 00:00: 00 Yes [facility] VANCOMYCIN 03-08 00:00: 00 Yes [facility] HYDROCORTIS O CRE 2.5% 03-07 00:00: 00 [...] [facility] OMEPRAZOLE 5- 00:00: 00 Yes [facility] BREO ELLIPTA INH 100-25 5- 00:00: [...] - 00:00: 00 11-12 00:00 :00 No [id number] [facility] HUMIRA PEN INJ 40/0.4ML 1-24 [...] 00 Yes [facility] NYSTATIN ORAL SUSP [id number]/ ML 2021-09 00:00: 00 Yes [facility] TAKE 1 CAPSULE BY MOUTH EVERY 8 HOURS NEEDED 2021-09 1- 00:00: 00 Yes [facility] PAROXETINE 2021-09 1- 00:00: 00 Yes [facility] MONTELUKAST 2021-09 1- 00:00: 00 Yes [facility] AMLODIPINE 2021-09 1- 00:00: 00 Yes [facility] SMZ/TMP DS [id number] 1768-1 0-31 00:00: 00 Yes [facility] TAKE [...] E 300-30MG 2021-0 9-04 00:00: 00 Yes [facility] IPRATROPIUM SPR 0.06% 2021-0 9- 00:00: [...] 0 01-21 00:00: 00 Yes 2mcg/ac tuation [facility] azithromyci n 250 mg tablet 0 01-21 [...] known medications 2020-09 0-09 19:54: 03 No [facility] metoprolol tartrate 50 mg tablet 8- 00:00: [...] Systolic blood pressure 2024-10-30 14:17:00 148 mm[Hg] [facility] Diastolic blood pressure 2024-10-30 14:17:00 99 mm[Hg] [facility] Heart rate 2024-10-30 14:17:00 71 /min [facility] Respiratory rate 2024-10-30 14:17:00 17 /min [facility] Body height 2024-10-30 14:17:00 160 cm [facility] Body weight 2024-10-30 14:17:00 122.471 kg Univ [facility] BMI 2024-10-30 14:17:00 47.83 kg/m2 Univ [facility] Oxygen saturation in Arterial blood by Pulse oximetry 2024-10-30 14:17:00 95 /min [facility] Systolic blood pressure 2024-04-12 14:57:00 130 mm[Hg] [facility] Diastolic blood pressure 2024-04-12 14:57:00 78 mm[Hg] [facility] Heart rate 2024-04-12 14:57:00 63 /min Un[facility] Body temperature 2024-04-12 14:57:00 35.72 Gem [facility] Respiratory rate 2024-04-12 14:57:00 18 /min [facility] Body height 2024-04-12 14:57:00 160 cm [facility] Body weight 2024-04-12 14:57:00 123.832 kg [facility] BMI 2024-04-12 14:57:00 48.36 kg/m2 Univ [facility] Systolic blood pressure 2023-05-01 15:23:00 144 mm[Hg] [facility] Diastolic blood pressure 2023-05-01 15:23:00 89 mm[Hg] [facility] Heart rate 2023-05-01 15:23:00 75 /min [facility] Respiratory rate 2023-05-01 15:23:00 17 /min [facility] Body height 2023-05-01 15:23:00 160 cm [facility] Body weight 2023-05-01 15:23:00 135.671 kg Univ [facility] BMI 2023-05-01 15:23:00 52.98 kg/m2 Univ [facility] Oxygen saturation in Arterial blood by Pulse oximetry 2023-05-01 15:23:00 99 /min [facility] Systolic blood pressure 2023-03-20 20:35:00 133 mm[Hg] [facility] Diastolic blood pressure 2023-03-20 20:35:00 94 mm[Hg] [facility] Heart rate 2023-03-20 20:35:00 78 /min [facility] Oxygen saturation in Arterial blood by Pulse oximetry 2023-03-20 20:35:00 95 /min [facility] Body temperature 2023-03-20 20:33:00 36.33 Gem [facility] Respiratory rate 2023-03-20 20:33:00 18 /min [facility] Body height 2023-03-20 20:33:00 160 cm [facility] Body weight 2023-03-20 20:33:00 134.537 kg [facility] BMI 2023-03-20 20:33:00 52.54 kg/m2 [facility] height 2023-02-24 15:00:00 63 [in_i] [facility] weight 2023-02-24 15:00:00 288 [lb_av] [facility] temperature 2023-02-24 15:00:00 99.3 [degF] Com [facility] bmi 2023-02-24 15:00:00 51.01 kg/m2 [facility] height 2023-01-24 14:00:00 63 [in_i] [facility] weight 2023-01-24 14:00:00 292.4 [lb_av] Co mmon [facility] temperature 2023-01-24 14:00:00 97.3 [degF] Com [facility] bmi 2023-01-24 14:00:00 51.79 kg/m2 [facility] oximetry 2023-01-24 14:00:00 99 % [facility] respiratory rate 2023-01-24 14:00:00 18 /min [facility] blood pressure systolic 2023-01-24 14:00:00 137 mm[Hg] [facility] blood pressure diastolic 2023-01-24 14:00:00 89 mm[Hg] [facility] height 2022-08-31 08:20:00 63 [in_i] [facility] weight 2022-08-31 08:20:00 278 [lb_av] [facility] temperature 2022-08-31 08:20:00 98.5 [degF] Com [facility] bmi 2022-08-31 08:20:00 49.24 kg/m2 [facility] height 2022-08-10 10:20:00 63 [in_i] [facility] weight 2022-08-10 10:20:00 283 [lb_av] [facility] temperature 2022-08-10 10:20:00 98.5 [degF] Com [facility] [place] bmi 2022-08-10 10:20:00 50.13 kg/m2 [facility] height 2022-06-22 10:20:00 63 [in_i] [facility] weight 2022-06-22 10:20:00 276 [lb_av] Comm on [facility] 2022-06-22 10:20:00 48.89 kg/m2 [facility] height 2022-04-26 17:00:00 63 [in_i] [facility] weight 2022-04-26 17:00:00 279 [lb_av] [facility] temperature 2022-04-26 17:00:00 97.9 [degF] Com [facility] [place] bmi 2022-04-26 17:00:00 49.42 kg/m2 [facility] height 2022-01-05 14:00:00 63 [in_i] [facility] weight 2022-01-05 14:00:00 297 [lb_av] [facility] bmi 2022-01-05 14:00:00 52.61 kg/m2 [facility] blood pressure systolic 2022-01-05 14:00:00 148 mm[Hg] [facility] blood pressure diastolic 2022-01-05 14:00:00 102 mm[Hg] [facility] height 2021-12-28 16:00:00 63 [in_i] [facility] weight 2021-12-28 16:00:00 300.4 [lb_av] Co mmon [facility] temperature 2021-12-28 16:00:00 97.3 [degF] Com [facility] [place] bmi 2021-12-28 16:00:00 53.21 kg/m2 [facility] oximetry 2021-12-28 16:00:00 100 % [facility] respiratory rate 2021-12-28 16:00:00 18 /min [facility] blood pressure systolic 2021-12-28 16:00:00 137 mm[Hg] [facility] blood pressure diastolic 2021-12-28 16:00:00 83 mm[Hg] [facility] height 2021-09-28 09:40:00 63 [in_i] [facility] weight 2021-09-28 09:40:00 283 [lb_av] [facility] temperature 2021-09-28 09:40:00 97.9 [degF] Com [facility] bmi 2021-09-28 09:40:00 50.13 kg/m2 [facility] height 2021-08-02 10:00:00 63 [in_i] [facility] weight 2021-08-02 10:00:00 282.6 [lb_av] Co m[facility] temperature 2021-08-02 10:00:00 97.0 [degF] Com [facility] bmi 2021-08-02 10:00:00 50.05 kg/m2 [facility] oximetry 2021-08-02 10:00:00 97 % [facility] respiratory rate 2021-08-02 10:00:00 16 /min [facility] blood pressure systolic 2021-08-02 10:00:00 140 mm[Hg] [facility] blood pressure diastolic 2021-08-02 10:00:00 62 mm[Hg] [facility] Systolic blood pressure 2021-07-04 00:50:00 180 mm[Hg] [place] [facility] Diastolic blood pressure 2021-07-04 00:50:00 110 mm[Hg] [place] [facility] Heart rate 2021-07-04 00:50:00 79 /min [facility] Body temperature 2021-07-04 00:50:00 36.67 Gem [facility] Respiratory rate 2021-07-04 00:50:00 18 /min [facility] Body weight 2021-07-04 00:50:00 121.564 kg [facility] Oxygen saturation in Arterial blood by Pulse oximetry 2021-07-04 00:50:00 99 /min [place] [facility] Heart Rate 2024-04-24 09:11:00 67.00 /min [...] [facility] Heart Rate 2023-05-27 13:27:31 [facility] [place] [place] Systolic (mm Hg) 2023-05-27 13:25:25 [facility] [place] Diastolic (mm Hg) 2023-05-27 13:25:25 [facility] Temperature Oral (F) 2023-05-27 13:25:01 97.6 F [facility] Height 2023-05-26 15:06:00 5 [ft_i] [facility] Weight 2023-05-26 15:06:00 [facility] [place] [place] BMI Calculated 2023-05-26 15:06:00 [facility] Systolic (mm Hg) 2023-05-24 16:30:00 [facility] Diastolic (mm Hg) 2023-05-24 16:30:00 [facility] Height 2023-05-24 15:00:00 5 [ft_i] [facility] [place] Weight 2023-05-24 15:00:00 [facility] BMI Calculated 2023-05-24 15:00:00 [facility] BP Systolic 2022-01-21 14:32:00 Step hen F [facility] BP Diastolic 2022-01-21 14:32:00 Eugene phen F [facility] Weight Measured 2022-01-21 14:32:00 276.00 pounds Stef [facility] Height Measured 2022-01-21 14:32:00 63.00 inches Stef [facility] Body Temperature 2022-01-21 14:32:00 Tsef F [facility] Heart Rate 2022-01-21 14:32:00 Rhonda en F [facility] Respiratory Rate 2022-01-21 14:32:00 Stef [facility] Procedures Procedure Date / Time Performed Performing Clinician Source SLEEP STUDY DATA REPORT 2023-04-11 05:01:00 Doct or Unassigned, Arnold Line [facility] HB ECG ROUTINE & RHYTHM STRIP 2023-03-20 20:38:13 Lico Trevizo [facility] ASSIGNMENT OF BENEFITS 2023-03-20 20:13:23 Docto r Unassigned, Arnold Line [facility] REFERRAL- REQUEST/RESPONSE 2023-02-02 05:01:00 D octor Unassigned, Arnold Line [facility] Cardioversion 2023-01-03 05:00:00 Yovani Borjas XR CHEST 1 VW 2021-07-04 01:14:37 [facility] PRIVAC[facility] PRACTICES 2021-07-04 00:45:31 Doctor Unassigned, Arnold Line [facility] CONSENT/REFUSAL FOR DIAGNOSIS AND TREATMENT 2021-07-04 00:45:10 Doctor Unassigned, Arnold Line [facility] Repair of small bowel obstruction [facility] Partial hysterectomy Yovani Borjas 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stricture [facility] section [facility] [place] Cholecyst[facility] Appendectomy [facility] Plan of Care Planned Activity Planned Date Details Comments Source Goal Plan of Care Note [code = 48807-0] Goal Plan of Care Note [code = 58786-9] Goal Plan of Care Note [code = 05344-1] Goal Plan of Care Note [code = 58620-6] Goal Plan of Care Note [code = 61117-6] Goal Plan of Care Note [code = 28392-7] Goal Plan of Care Note [code = 65563-7] Goal Plan of Care Note [code = 81276-1] Goal Plan of Care Note [code = 72074-2] Goal Plan of Care Note [code = 26523-3] Goal Plan of Care Note [code = 70463-5] Goal Plan of Care Note [code = 58259-6] Goal Plan of Care Note [code = 59138-2] Goal Plan of Care Note [code = 40665-6] Goal Plan of Care Note [code = 68698-1] Goal Plan of Care Note [code = 28908-6] Encounters Start Date/Time End Date/Time Encounter Type Admission Type Attending Clinicians Care Facility Care Department Encounter ID Source 2024-03-12 09:26:00 Outpatient Taylor Chung [facility] [id number] [facility] 2023-09-21 15:25:00 Outpatient Taylor Chung [facility] [id number] [facility] 2023-02-24 14:59:00 Outpatient Taylor Chung [facility] [id number] [facility] 2023-01-23 09:09:00 Outpatient Taylor Chung [facility] [id number] [facility] 2022-12-29 15:24:00 Outpatient Taylor Chung [facility] [id number] [facility] 2022-12-21 09:47:00 Outpatient Karol Rich [facility] [id number] [facility] 2022-06-01 09:18:00 Outpatient Lopez, Na [facility] [id number] [facility] 2022-04-13 15:29:00 Outpatient Lopez, Na [facility] [id number] [facility] 2022-04-07 16:07:00 Outpatient Lopez, Na [facility] [id number] [facility] 2022-01-04 09:31:01 Outpatient Lopez, Na [facility] [id number] [facility] 2021-10-20 14:09:55 Outpatient Lopez, Na [facility] [id number] [facility] 2021-10-20 13:47:22 Outpatient Lopez, Na [facility] [id number] [facility] 2021-10-20 12:29:04 Outpatient Lopez, Na [facility] [id number] [facility] 2021-10-20 12:03:44 Outpatient Lopez, Na [facility] [id number] [facility] 2021-10-20 12:03:05 Outpatient Lopez, Na [facility] [id number] [facility] 2021-10-20 11:43:49 Outpatient Lopez, Na [facility] [id number] [facility] 2021-10-20 11:35:56 [facility] [id number] [facility] 2021-10-20 11:18:09 [facility] [id number] [facility] 2021-10-20 11:04:54 [facility] [id number] [facility] 2021-10-20 11:04:25 [facility] [id number] [facility] 2025-01-02 00:00:00 2025-01-02 08:34:[address] [facility] OFFICE BUILDING [id number] [facility] 2024-12-24 00:00:00 2024-12-31 09:42:[address] [facility] OFFICE BUILDING [id number] [facility] 2024-12-25 09:30:00 2024-12-25 09:30:00 Outpatient BEVERLEY BOOGIE RUTH [facility] [id number] [facility] 2024-12-18 10:15:00 2024-12-18 10:15:00 Outpatient CECY CROOKS [facility] [id number] [facility] 2024-11-19 00:00:00 2024-11-19 16:12:[address] [facility] OFFICE BUILDING [id number] [facility] 2024-11-15 00:00:00 2024-11-15 12:29:34 Telephone Beverley C[facility] [id number] [facility] 2024-11-15 00:00:00 2024-11-15 12:13:19 Telephone Beverley C[facility] [id number] [facility] 2024-10-30 00:00:00 2024-10-30 10:34:[address] [facility] [facility] MED[facility] OFF[facility] BUILDING 1.2.840.114 350.1.13.10 4.2.7.2.686 [id number] [facility] 2024-10-30 08:00:00 2024-10-30 08:30:00 Office Visit Beverley Cue[facility] 1.2.840.114 350.1.13.10 4.2.7.2.686 [id number] [facility] 2024-10-30 08:00:00 2024-10-30 08:00:00 Outpatient R BEVERLEY CUEVAS RUTH [facility] [id number] [facility] 2024-10-01 14:04:24 2024-10-01 14:04:24 Outpatient SFA [facility] [id number] Stef Vines 2024-10-01 00:00:00 2024-10-01 00:00:00 Outpatient Visit SFA [id number] Stef Vines 2024-04-24 09:01:03 2024-04-24 09:01:03 Outpatient SFA [facility] [id number] Stef Vines 2024-04-24 00:00:00 2024-04-24 00:00:00 Outpatient Visit [facility] [id number] [place] [id number] Stef Vines 2024-04-12 10:00:00 2024-04-12 10:54:35 Outpatient R CECY COVARRUBIAS [facility] [id number] [facility] 2024-04-12 10:00:00 2024-04-12 10:54:35 Office Visit Cecy Covarrubias [facility] HVAC DES[facility] 1.2.840.114 350.1.13.10 4.2.7.2.686 [id number] [facility] 2024-03-12 00:00:00 2024-03-12 00:00:00 (TEL) STLMLC STLMLC [id number] [facility] 2023-10-25 13:15:11 2023-10-25 13:15:11 Outpatient SFA [facility] [id number] Stef Vines 2023-09-21 00:00:00 2023-09-21 00:00:00 (TEL) STLMLC STLMLC [id number] [facility] 2023-09-20 13:00:00 2023-09-20 13:00:00 Outpatient LICO TELLEZ [facility] [id number] [facility] 2023-09-07 00:00:00 2023-09-07 00:00:00 (TEL) STLMLC STLMLC [id number] [facility] 2023-08-28 15:00:00 2023-08-28 15:00:00 Outpatient BEVERLEY BOOGIE RUTH [facility] [id number] [facility] 2023-08-16 00:00:00 2023-08-16 00:00:00 (TEL) STLMLC STLMLC [id number] [facility] 2023-08-02 11:00:00 2023-08-02 11:00:00 Outpatient BEVERLEY BOOGIE RUTH [facility] [id number] [facility] 2023-07-25 00:00:00 2023-07-25 00:00:00 Outpatient GC_GCBZW_Ka diyala_S PRIV PRIV [id number] [facility] 2023-07-24 00:00:00 2023-07-24 00:00:00 Outpatient GC_GCBZW_Ka diyala_S PRIV PRIV [id number] [facility] 2023-06-07 00:00:00 2023-06-07 00:00:00 (TEL) [facility] [id number] [facility] 2023-05-26 21:42:00 2023-05-27 17:29:00 Observatio n [facility] [id number] [facility] 2023-05-26 16:42:00 2023-05-27 12:29:00 Outpatient LIBERTAD [facility] [id number] [facility] 2023-05-24 12:17:00 2023-05-25 04:59:00 Outpatient [facility] [id number] [facility] 2023-05-24 07:17:00 2023-05-24 23:59:00 Outpatient LIBERTAD, [facility] [id number] [facility] 2023-05-01 10:30:00 2023-05-01 10:54:08 Outpatient BEVERLEY BOOIGE RUTH [facility] [id number] [facility] 2023-05-01 10:30:00 2023-05-01 10:54:08 Office Visit Beverley Cuevas [facility] OFFICE BUILDING 1.2.840.114 350.1.13.10 4.2.7.2.686 [id number] [facility] 2023-05-01 00:00:00 2023-05-01 00:00:00 Telephone Beverley [facility] 1.2.840.114 350.1.13.10 4.2.7.2.686 [id number] [facility] 2023-04-20 11:20:00 2023-04-20 11:20:00 Outpatient JOSÉ LUIS GOVEA CHOCKALINGA M [facility] [id number] [facility] 2023-04-15 00:00:00 2023-04-15 00:00:[address] [facility] 1.2.840.114 350.1.13.10 4.2.7.2.686 [id number] [facility] 2023-04-13 00:00:00 2023-04-13 00:00:00 [facility] 1.2.840.114 350.1.13.10 4.2.7.2.686 [id number] [facility] 2023-04-11 13:00:00 2023-04-11 13:15:00 Prism Inspector Visit [facility] Christina Osorio [facility] 1.2.840.114 350.1.13.10 4.2.7.2.686 [id number] [facility] 2023-04-11 13:00:00 2023-04-11 13:00:00 Outpatient CHRISTINA MONTEIRO STRAVTEdgar [facility] [id number] [facility] 2023-04-11 00:00:00 2023-04-11 00:00:00 Orders Only Doctor Unassigned, Arnold Line [facility] 1.2.840.114 350.1.13.10 4.2.7.2.686 [id number] [facility] 2023-03-29 00:00:00 2023-03-29 00:00:[address] [facility] 1.2.840.114 350.1.13.10 4.2.7.2.686 [id number] [facility] 2023-03-29 00:00:00 2023-03-29 00:00:[address] [facility] 1.2840.114 350.1.13.10 4.2.7.2.686 [id number] [facility] 2023-03-20 15:20:00 2023-03-20 16:49:15 Outpatient R GIOVANNI [facility] [id number] [facility] 2023-03-20 15:20:00 2023-03-20 16:49:15 Office Visit Giovanni [facility] 1.2.840.114 350.1.13.10 4.2.7.2.686 [id number] [facility] 2023-03-20 00:00:00 2023-03-20 00:00:00 Orders Only Doctor Unassigned, Arnold Line [facility] 1.2840.114 350.1.13.10 4.2.7.2.686 [id number] [facility] 2023-02-24 00:00:00 2023-02-24 00:00:00 OFFICE VISIT ESTAB PT LEVEL 3 [facility] [id number] [facility] 2023-02-23 00:00:00 2023-02-23 00:00:00 (TEL) [facility] [id number] [facility] 2023-02-02 00:00:00 2023-02-02 00:00:00 Orders Only Doctor Unassigned, Arnold Line [facility] 1.2840.114 350.1.13.10 4.2.7.2.686 [id number] [facility] 2023-01-31 00:00:00 2023-01-31 00:00:00 (TEL) STLMLC STLMLC [id number] [facility] 2023-01-24 00:00:00 2023-01-24 00:00:00 OFFICE VISIT ESTAB PT LEVEL 4 STLMLC STLMLC [id number] [facility] 2022-12-23 00:00:00 2022-12-23 00:00:00 (TEL) STLMLC STLMLC [id number] [facility] 2022-10-27 00:00:00 2022-10-27 00:00:00 (TEL) STLMLC STLMLC [id number] [facility] 2022-08-31 00:00:00 2022-08-31 00:00:00 OFFICE VISIT EST PT LEVEL 3 STLMLC STLMLC [id number] [facility] 2022-08-30 00:00:00 2022-08-30 00:00:00 (TEL) STLMLC STLMLC [id number] [facility] 2022-08-29 15:26:21 2022-08-29 15:26:21 Outpatient SFA [facility] [id number] Stef Matthew Mohinder 2022-08-29 00:00:00 2022-08-29 00:00:00 Outpatient Visit [id number] 2022-08-10 00:00:00 2022-08-10 00:00:00 (TEL) STLMLC STLMLC [id number] [facility] 2022-08-10 00:00:00 2022-08-10 00:00:00 (TEL) STLMLC STLMLC [id number] [facility] 2022-08-10 00:00:00 2022-08-10 00:00:00 (TEL) STLMLC STLMLC [id number] [facility] 2022-08-10 00:00:00 2022-08-10 00:00:00 OFFICE VISIT EST PT LEVEL 3 STLMLC STLMLC [id number] [facility] 2022-07-20 00:00:00 2022-07-20 00:00:00 (TEL) STLMLC STLMLC [id number] [facility] 2022-06-29 00:00:00 2022-06-29 00:00:00 (TEL) STLMLC STLMLC [id number] [facility] 2022-06-22 00:00:00 2022-06-22 00:00:00 OFFICE VISIT EST PT LEVEL 3 STLMLC STLMLC [id number] [facility] 2022-06-20 00:00:00 2022-06-20 00:00:00 (TEL) STLMLC STLMLC [id number] [facility] 2022-06-03 00:00:00 2022-06-03 00:00:00 OFFICE VISIT EST PT LEVEL 3 STLMLC STLMLC [id number] [facility] 2022-05-16 00:00:00 2022-05-16 00:00:00 (TEL) STLMLC STLMLC [id number] [facility] 2022-05-16 00:00:00 2022-05-16 00:00:00 OFFICE VISIT EST PT LEVEL 3 STLMLC STLMLC [id number] [facility] 2022-04-27 00:00:00 2022-04-27 00:00:00 (TEL) STLMLC STLMLC [id number] [facility] 2022-04-26 00:00:00 2022-04-26 00:00:00 (TEL) STLMLC STLMLC [id number] [facility] 2022-04-26 00:00:00 2022-04-26 00:00:00 OFFICE VISIT EST PT LEVEL 3 STLMLC STLMLC [id number] [facility] 2022-04-20 00:00:00 2022-04-20 00:00:00 Outpatient Visit [id number] 2022-03-30 00:00:00 2022-03-30 00:00:00 OFFICE VISIT ESTAB PT LEVEL 4 STLMLC STLMLC [id number] [facility] 2022-02-14 00:00:00 2022-02-14 00:00:00 (TEL) STLMLC STLMLC [id number] [facility] 2022-01-27 00:00:00 2022-01-27 00:00:00 OFFICE VISIT EST PT LEVEL 3 STLMLC STLMLC [id number] [facility] 2022-01-26 00:00:00 2022-01-26 00:00:00 (TEL) STLMLC STLMLC [id number] [facility] 2022-01-18 00:00:00 2022-01-18 00:00:00 (TEL) STLMLC STLMLC [id number] [facility] 2022-01-05 00:00:00 2022-01-05 00:00:00 OFFICE VISIT NEW PT LEVEL 3 STLMLC STLMLC [id number] [facility] 2021-12-28 00:00:00 2021-12-28 00:00:00 OFFICE VISIT ESTAB PT LEVEL 4 STLMLC STLMLC [id number] [facility] 2021-11-15 00:00:00 2021-11-15 00:00:00 (TEL) STLMLC STLMLC [id number] [facility] 2021-11-11 00:00:00 2021-11-11 00:00:00 (TEL) STLMLC STLMLC [id number] [facility] 2021-09-28 00:00:00 2021-09-28 00:00:00 OFFICE VISIT ESTAB PT LEVEL 4 STLMLC STLMLC [id number] [facility] 2021-08-27 00:00:00 2021-08-27 00:00:00 (TEL) STLMLC STLMLC [id number] [facility] 2021-08-04 00:00:00 2021-08-04 00:00:00 (TEL) STLMLC STLMLC [id number] [facility] 2021-08-02 00:00:00 2021-08-02 00:00:00 OFFICE VISIT ESTAB PT LEVEL 4 STLMLC STLMLC [id number] [facility] 2021-07-22 08:00:00 2021-07-22 08:00:00 Outpatient GRABIEL Mayra Blancavini HCAPM RADI [id number] 63 [facility] [place] 2021-07-03 19:47:00 2021-07-03 21:16:00 Emergency Raissa Tran [facility] 1.2.840.114 350.1.13.10 4.2.7.2.686 [id number] [facility] 2021-07-03 19:47:00 2021-07-03 19:47:00 Emergency X [facility] ERT [id number] [facility] 2021-06-07 00:00:00 2021-06-07 00:00:00 Outpatient STLMLC STLMLC [id number] [facility] 2021-05-06 00:00:00 2021-05-06 00:00:00 Outpatient STLMLC STLMLC [id number] [facility] 2021-04-28 00:00:00 2021-04-28 00:00:00 Outpatient STLMLC STLMLC [id number] [facility] 2021-04-27 00:00:00 2021-04-27 00:00:00 Outpatient STLMLC STLMLC [id number] [facility] 2021-03-15 00:00:00 2021-03-15 00:00:00 Outpatient STLMLC STLMLC [id number] [facility] 2021-01-04 00:00:00 2021-01-04 00:00:00 Outpatient STLMLC STLMLC [id number] [facility] 2020-11-03 00:00:00 2020-11-03 00:00:00 Outpatient STLMLC STLMLC [id number] [facility] 2020-08-03 00:00:00 2020-08-03 00:00:00 Outpatient STLMLC STLMLC [id number] [facility] [place] [place] [facility] 2020-05-04 10:10:00 2020-05-04 10:10:[address] [facility] [id number] [facility] 2020-05-01 09:40:00 2020-05-01 09:40:00 [address] [facility] [id number] [facility] [place] [place] [facility] 2020-02-19 16:06:00 2020-02-19 16:06:00 [facility] [id number] [facility] 2019-12-12 15:41:00 2019-12-12 15:41:00 [address] [facility] [id number] [facility] [place] [place] [facility] 2019-09-16 14:40:00 2019-09-16 14:40:00 [facility] [id number] [facility] 2019-08-15 09:27:00 2019-08-15 09:27:00 [facility] [id number] [facility] [place] [place] [facility] 2019-08-12 09:00:00 2019-08-12 09:00:00 [facility] [id number] [facility] [place] [place] [facility] 2019-07-31 11:46:00 2019-07-31 11:46:00 [facility] [id number] [facility] 2019-07-29 09:40:00 2019-07-29 09:40:00 [facility] [id number] [facility] 2019-06-02 09:38:00 2019-06-02 09:38:00 [facility] [id number] [facility] 2019-05-31 11:30:00 2019-05-31 11:30:00 [facility] [id number] [facility] 2018-01-19 08:11:00 2018-01-19 08:11:[address] [facility] [facility] [id number] [facility] 2018-01-18 10:15:00 2018-01-18 10:15:00 [facility] [id number] [facility] 2017-12-26 09:30:00 2017-12-26 09:30:00 [facility] [id number] [facility] 2008-10-21 00:00:00 2008-10-21 11:14:00 Outpatient [facility] [id number] [facility] Results Test Description Test Time Test Comments Results Result Co mments Source [facility]me[facility]xHPOPOYHORE3370-24-05 11:57:00* Test Item Value Reference Range Interpretation [...] (test code = Basophils #) 0.1 <=0.2 [facility] AntonioAdftmfcBGSFLCDMMF0438-60-51 21:30:00* Test Item Value Reference Range Interpretation Comme [facility] POC Activated Clotting Time (test code = POC Activated Clotting Time) 232 s [facility] SQFGOYO1188-55-03 17:00:00* Test Item Value Reference Range Interpretation Comme [facility] RBC product (test code = RBC product) Product available (05/26/23 12:00 PM) [facility] ChildrenYiulvscVUBOYLTDQ3934-08-64 15:07:00* Test Item Value Reference Range Interpretation Comme [facility] U Preg (test code = U Preg) Negative (05/26/23 10:07 AM) [facility] ChildrenQgnyjtmIKYTWUGSQ6570-08-01 14:56:00* Test Item Value Reference Range Interpretation Comme [facility] POC Sodium (test code = POC Sodium) [...] 10.0-20.0 eGFR (test code = eGFR) 107 [facility] BKJRVMA9051-55-25 14:33:00* Test Item Value Reference Range Interpretation Comme nts ABO/Rh (test code = ABO/Rh) A POS Antibody Scrn (test code = Antibody Scrn) Negative (05/24/23 9:33 AM) [facility] AntonioMvrxpmbHULZPSQWF1871-46-07 14:33:00* Test Item Value Reference Range Interpretation [...] code = A/G Ratio) 0.6 1 0.7-1.6 [facility]PdiptosFYUICYSFNZ4309-75-88 13:55:00* Test Item Value Reference Range Interpretation Comme nts PT (test code = PT) 13.5 s 12.0-14.7 INR (test code = INR) 1.03 1 0.85-1.17 PTT (test code = PTT) 26.1 s 22.9-35.8 [facility] HealthFbfkzruZIIZPZIYWY4895-80-81 12:46:00* Test Item Value Reference Range Interpretation Comme nts Eosinophils (test code = Eosinophils) 1.1 <=4.0 Eosinophils # (test code = E osinophils #) 0.1 <=0.5 [facility]-CoV-2 (COVID-19), RT-PCR/NLH3722-78-40 07:26:55* Test Item Value Reference Range Interpretation Comments SARS-CoV-2 INTERPRETATION (test code = 55058) NEGATIVE SEE NOTE SARS-CoV-2 R NA NOT [...] ORDER CODE 3509. SOURCE (test code = 84669) NASOPHARYNGEAL Note: Methodolog y is Ro Charito Real-Time RT-PCR. The expected result or reference range is NEGATIVE (Not Detected). For more information regarding COVID-19 testing to include clinicalinformation, methodology detail, intended use, FDA authorization andrecommended fact sheets for patients or healthcare providers, see NewFreeCharge Announcement: SARS-CoV-2 (COVID-19) by NAAT at URL below (note,fact sheets are provided by method given in report:[email or web address]://[email or web address].com/clinicians/cl ient-communications/ Alternatively, see downloadable PDF fact sheet at:[email or web address]://www.[employer]/KWSNF-25-WW-PCR UNLESS OTHERWISE INDICATED, ALL TESTING PERFORMED [facility] [address] [place] [address] LOGISTICS ENGINEER: PRUDENCE SOLIS M.D. CLIA NUMBER [id number] [place]. [id number] SARS-CoV-2 (COVID-19) by RT-PCR (HIGH RISK)2021-12-10 00:00:00* Test Item Value Reference Range Interpretation Comme nts SARS-CoV-2 INTERPRETATION (test code = 17726) NEGATIVE SOURCE (test code = 44691) NASOPHARYNGEAL Steffili VinesXnegbjWGQB-PbD-4 (COVID-19) by RT-PCR (HIGH RISK)2021-12-10 00:00:00* Test Item Value Reference Range Interpretation Comme nts SARS-CoV-2 INTERPRETATION (test code = 57785) NEGATIVE SOURCE (test code = 60452) NASOPHARYNGEAL SARS-CoV-2 (COVID-19) by RT-PCR (HIGH RISK)2021-12-10 00:00:00* Test Item Value Reference Range Interpretation Comme nts SARS-CoV-2 INTERPRETATION (test code = 93074) NEGATIVE SOURCE (test code = 79110) NASOPHARYNGEAL SARS-CoV-2 (COVID-19) by RT-PCR (HIGH RISK)2021-12-10 00:00:00* Test Item Value Reference Range Interpretation Comme nts SARS-CoV-2 INTERPRETATION (test code = 42406) NEGATIVE SOURCE (test code = 47451) NASOPHARYNGEAL Stef Castro AustinLipid Panel w/ Chol/HDL Rkwcv9217-37-97 00:00:00* Test Item Value Reference Range Interpretation Comme nts Cholesterol, Total (test code = 2093-3) 186 100-199 Triglycerides (test code = 2571-8) 86 0-149 HDL Cholesterol (test code = 2085-9) 59 >39 T. Chol/HDL Ratio (test code = 9830-1) 3.2 0.0-4.4 - CT ABD PELVIS W/DMJF6890-35-68 09:50:00 [facility] 1975 Sex: F Name: SHE FITZGERALD [facility] : 1975 Age/S: 46 / F [address] [address] [place] Unit #: [id number] Loc: [place] [address] Phys: Vanesa Nunez MD Acct: [id number] Dis Date: Status: REG CLI PHONE #: [phone] Exam Date: 07/22/2021917 FAX #: Reason: CROHNS DISEASE, UNSPECIFIED, WITHOUT COMPLICATI EXAMS: CPT: [id number] CT ABD PELVIS W/CONT 25353 HISTORY: CROHN'S DISEASE, UNSPECIFIED, WITHOUT COMPLICATIONS TECHNIQUE: [...] FITZGERALD : 1975 Age/S: 46 / F [facility] Unit #: [id number] Loc: [place] [address] Phys: Vanesa Nunez MD Acct: [id number] Dis Date:Status: REG CLI PHONE #: [phone] Exam Date: 07/22/2021 0918 FAX #: Reason: CROHNS DISEASE, UNSP ECIFIED, WITHOUT COMPLICATI EXAMS: CPT: [id number] CT ABD PELVIS W/CONT 69924 (Continued) IMPRESSION: 1. There is mild diffuse [...] (0950) tSHERINR.NB16 Orig Print D/T: S: 07/22/2021 (9408)PAGE 2 Signed JswzyvWQPLV-YXD7350-74-28 08:27:00* Test Item Value Reference Range Interpretation Comme nts ISTAT-BUN (test code = BUNP) 8 mg/dL 8-26 N BEDSIDE VGDVXYMMJC1122-26-84 08:27:00* Test Item Value Reference Range Interpretation Comme nts BEDSIDE CREATININE (test cod e = CREATBED) 0.6 mg/dL 0.6-1.3 N SARS-COV-2 (COVID19), NAAT [ADDED]2020-10-02 00:00:00* Test Item Value Reference Range Interpretation Comme nts SARS-CoV-2 INTERPRETATION (t est code = 15461) NEGATIVE SOURCE (test code = 13983) NOT SPECIFIED Stef Castro PuhotfRVUZ-OXI-8 (COVID19), NAAT [ADDED]2020-10-02 00:00:00* Test Item Value Reference Range Interpretation Comme nts SARS-CoV-2 INTERPRETATION (t est code = 16003) NEGATIVE SOURCE (test code = 06004) NOT SPECIFIED SARS-COV-2 (COVID19), NAAT [ADDED]2020-10-02 00:00:00* Test Item Value Reference Range Interpretation Comme nts SARS-CoV-2 INTERPRETATION (t est code = 14446) NEGATIVE SOURCE (test code = 78974) NOT SPECIFIED SARS-COV-2 (COVID19), NAAT [ADDED]2020-10-02 00:00:00* Test Item Value Reference Range Interpretation Comme nts SARS-CoV-2 INTERPRETATION (t est code = 06286) NEGATIVE SOURCE (test code = 88034) NOT SPECIFIED Stef Castro SnoqtpSWSX-EkO-0 (COVID-19) by RT-PCR (HIGH RISK)2020-04-17 00:00:00* Test Item Value Reference Range Interpretation Comme nts SARS-CoV-2 INTERPRETATION (t est code = 69070) NEGATIVE SOURCE (test code = 01175) NOT SPECIFIED SARS-CoV-2 (COVID-19) by RT-PCR (HIGH RISK)2020-04-17 00:00:00* Test Item Value Reference Range Interpretation Comme nts SARS-CoV-2 INTERPRETATION (t est code = 68339) NEGATIVE SOURCE (test code = 31995) NOT SPECIFIED SARS-CoV-2 (COVID-19) by RT-PCR (HIGH RISK)2020-04-17 00:00:00* Test Item Value Reference Range Interpretation Comme nts SARS-CoV-2 INTERPRETATION (t est code = 32215) NEGATIVE SOURCE (test code = 48270) NOT SPECIFIED Stef Castro TvuksiAKYA-FiL-5 (COVID-19) by RT-PCR (HIGH RISK)2020-04-17 00:00:00* Test Item Value Reference Range Interpretation Comme nts SARS-CoV-2 INTERPRETATION (t est code = 13646) NEGATIVE SOURCE (test code = 07658) NOT SPECIFIED Stef F AustinPOC, COVID 19 Antigen + Flu by SofiaPOC, COVID 19 Antigen + Flu by Jennifer Notes Date/Time Note Provider Source 2025-01-02 08:31:47 Images from the original note were not included. Notification received from [employer]. Space[employer]t sent to patient. Georgia Rodriguez RN [facility] 2024-12-31 09:41:50 Patient was contacted on 12/25/24, no answer, vm was left informing patient [facility] only offers telemed for Medicare patients. Left call back number for patient to call back if needed. Hazel Johnson [facility] 2024-12-31 09:13:06 Routed to incorrect PSS pool - [facility] BLS 4 PEDI SPEC PSS Adult Pulmonary for MOB/CLC should be routed to - [facility] BLS 4 ADULT SPEC PSS Mable Lester [facility] 2024-12-25 10:27:55 She Fitzgerald is a 49 year old female Pt is returning call please contact pt [phone] (home) [phone] (work) Jose Martin Hanson [facility] 2024-12-24 16:32:13 She Fitzgerald is a 49 year old female Pt is requesting a virtual or telephone consultation for her appointment tomorrow at 9:30am. Please contact and advise, thank you! Cherrie Dao [facility] 2024-11-19 16:12:25 Sleep study uploaded to DME via [email or web address]. PULLER Georgia Rodriguez RN [facility] 2024-11-19 16:06:06 She Fitzgerald is a 49 year old female Pt. Calling stating that DME/insurance is requesting sleep study results prior to ordering CPAP machine so they can cover it. Plz adv. Duarte [facility] 2024-11-15 12:13:50 Sent to [facility] and charted in separate encounter. Messaged pt. Grant RN [facility] 2024-11-15 12:09:26 Images from the original note were not included. New start DME The following has been sent to the provider for completion via parachute/FAX Orders pended for [employer] company Prescription for CPAP Sleep study /data report dated - 04/11/2023 Demographics - Face sheet Insurance Information Progress Notes from office visit prior to sleep study - 03/20/2023 Follow up due 31-90 days following initiation of any device. New device: choice mask, reg tubing APAP therapy pressure settings [id number] with EPR:3cmH2O and heated humidification with choice mask. Ramp Time: 30 minutes, Starting pressure: 4cmH2O DME Per insurance coverage Make visible on [employer] under Yesica Shepard Grant RN [facility] 2024-11-15 10:49:58 She Fitzgerald is a 49 year old female Patient is out of network with the medical supplier that her CPAP was sent to. She is needing it sent somewhere else. Please advise. Akins [facility] 2024-10-30 10:05:38 Images from the original note [...] mask, reg tubing APAP therapy pressure settings [id number] with EPR:3cmH2O and heated humidification with choice mask. Ramp Time: 30 minutes, Starting pressure: 4cmH2O DME Per insurance coverage Make visible on [employer] under Yesica Shepard PULLER Georgia Rodriguez RN [facility] Stef Christensen [facility]2024-07-31 00:00:00 [facility]23-[facility] 11:26:15 Images from the original note were not included. New device: choice mask, reg tubing APAP therapy pressure settings [id number] with EPR:3cmH2O, Ramp time: 30 minutes, Starting pressure:4cmH2O and heated humidification with choice mask. DME Per insurance coverage New start DME The following has been sent to the provider for completion via parachute/FAX Orders pended for [employer] company Prescription for BIPAP Sleep study /data report dated - 04/11/23 Demographics - Face sheet Insurance Information Progress Notes from office visit prior to sleep study - 03/20/23 Follow up due 31-90 days following initiation of any device. T [id number] 08:08:01 Spoke with patient who states she [...] it continues to be elevated. Yesica Reyes [id number] 08:43:37 She Fitzgerald is a 48 year old female Pt is calling to let the know that her Rx med. Prescribed by the DrRukhsana on 04/13/23 was stopped by the providers at the ED today . Eva CamargoAs[facility]ula [facility] [id number] 13:42:32 Pt has been scheduled with Dr. Osorio. Jamarcus De La PazAshtabula [facility] HospitalOmwcbl2611-20-26 11:57:25 Will route to [facility] for scheduling. Marya Ahuja MAAshtabula [facility] [id number] 11:53:49 Also make appointment with sleep medicine Dr. Osorio for sleep apnea. Sleep apnea can cause swelling and high blood pressure. [facility]2023-07-20 11:41:[address] Trevizo recommendation to start the new medication and Keep BP log, patient verbalized understanding with no further questions. Sent new Rx to patient pharmacy of choice. Dr. Trevizo also wants her to see Dr. Osorio for sleep apena, patient stated she just had her sleep stud done Monday04/10/23 [place] [id number] 11:34:09 Also make appointment with sleep medicine Dr. Osorio for sleep apnea. Sleep apnea can cause swelling and high blood pressure. [place] [id number] 11:31:59 Add Dyazide 37.5/25 mg daily. Keep BP log. Keep appointment as scheduled. Low- salt diet. [facility] [id number] 11:24:[address] Trevizo for further assistance [facility] [id number] 10:08:51 She Ftizgerald is a 48 year old female Pt is having high blood pressure and swelling in hand and legs Please advise [phone] (home) [phone] (work) [facility] Niko Tabor On license of [facility]2023-06-26 15:20:00Addended by: LICO TREVIZO MD on: 04/13/2023 11:34 AM Modules accepted: Orders [facility]
[2025-02-10 20:53] LABS: Specific Gravity 1.029 (1.005-1.030); Sqamous Epithelial <5 /HPF (None Seen); Urine Bacteria <20 /HPF (<20); Urine Bilirubin NEGATIVE (Negative); Urine Blood Negative (Negative); Urine Clarity Clear (Clear); Urine Color Yellow (Yellow); Urine Culture Reflex Order NOT NEEDED; Urine Glucose NEGATIVE (Negative); Urine Ketones 1+ (Negative); Urine Microscopic Reflex YN ORDER UMIC; Urine Mucus Slight /HPF (None Seen); Urine Nitrite NEGATIVE (Negative); Urine Protein 1+ (Negative); Urine RBC <5 /HPF (None Seen); Urine Urobilinogen Normal (Normal); Urine WBC <5 /HPF (<5); Urine pH 5.5 (5.0-7.0)
[2025-02-10 20:54] LABS: Specific Gravity 1.029 (1.005-1.030)
[2025-02-10] MEDS ORDERED: DIPHENHYDRAMINE 50 MG/ML VIAL ONE (21:47)
[2025-02-10] MEDS ORDERED: droPERidol 5 MG/2 ML VIAL ONE (21:47)
[2025-02-10] MEDS ORDERED: METOCLOPRAMIDE 10 MG/2mL INJ ONE (21:48)
[2025-02-10] MEDS ORDERED: NA CHLORIDE 0.9% 1,000 ML ONE (21:48)
[2025-02-10 21:50] LABS: Absolute Basophils 0.1 K/uL (0-0.5); Absolute Eosinophils 0.1 K/uL (0-0.5); Absolute Lymphocytes (CBC) 2.5 K/uL (0.7-4.9); Absolute Monocytes 0.6 K/uL (0.1-1.3); Basophils % 1.3 % (0-1.3); Eosinophils % 1.4 % (0-4.4); Hematocrit 36.4 % (36.0-45.0); Hemoglobin 12.1 g/dL (12.0-15.0); Lymphocytes % 30.1 % (15.3-44.8); MCH 25.7 pg (27.0-35.0); MCHC 33.3 g/dL (32.0-36.0); MCV 77.2 fL (80-100); MPV 8.5 fL (7.6-11.3); Monocytes % 7.1 % (3.3-12.3); Neutrophils % 60.1 % (41.7-73.7); Platelets 388 thou/uL (152-406); RBC Red Blood Cell Count 4.72 M/uL (3.86-4.86); Red Cell Distribution Width 16.3 % (12.1-15.2)
[2025-02-10 22:05] LABS: Albumin 3.3 g/dL (3.4-5.0); Albumin/Globulin Ratio 0.6 (1.1-1.8); Anion Gap 8.4 mEq/L (5.0-15.0); Bilirubin Total 0.7 mg/dL (0.2-1.0); Globulin 5.6 g/dL (2.3-3.5); Potassium 3.4 mEq/L (3.5-5.1); Protein, Total 8.9 g/dL (6.4-8.2)
--- NOTE | 2025-02-10 22:52 | EDPHYS ---
Physician Documentation [facility] Name: Dori Guardado Age: 50 yrs Sex: Female : 1975 Arrival Date: 02/10/2025 Time: 18:47 Bed 20 Private MD: ED Physician Renae Oconnor HPI: 02/10 19:20 This 50 yrs old Black Female presents to ER via Ambulatory with complaints of cp Nausea/Vomiting/Diarrhea, Abdominal Pain - UPPER, Mouth Problem - TONGUE. 19:20 The patient presents to the emergency department with nausea, that is moderate, cp vomiting, that is intermittent, diarrhea, that is continuous, abdominal pain, of the abdomen diffusely, and does not radiate. 19:20 Onset: The symptoms/episode began/occurred this past Monday. cp 19:20 Possible causes: flare up of bowel problem, Crohn's disease. Associated signs and cp symptoms: Pertinent negatives: constipation, fever, GI bleeding. Severity of symptoms: in the emergency department the symptoms are unchanged despite home interventions. 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 - Infectious Disease History:: Denies. - Social history:: Smoking status: Patient denies any tobacco usage or history of. Patient/guardian denies using alcohol, street drugs. ROS: 19:25 Constitutional: Negative for fever, cp 19:25 Eyes: Negative for injury, pain, redness, and discharge, cp 19:25 ENT: Negative for drainage from ear(s), ear pain, sore throat, difficulty swallowing, difficulty handling secretions, 19:25 Cardiovascular: Negative for chest pain, 19:25 Respiratory: Negative for cough, shortness of breath, wheezing, 19:25 Abdomen/GI: Positive for abdominal pain, nausea and vomiting, diarrhea, Negative for black/tarry stool, rectal bleeding, 19:25 Neuro: Negative for altered mental status, 19:25 All other systems are negative, Exam: 19:30 Constitutional: The patient appears in no acute distress, alert, awake, cp non-diaphoretic, non-toxic, well developed, well nourished, obese, uncomfortable, 19:30 Head/Face: Normocephalic, atraumatic. cp 19:30 Eyes: Periorbital structures: appear normal, Conjunctiva: normal, no exudate, no injection, Sclera: no appreciated abnormality, Lids and lashes: appear normal, bilaterally, 19:30 ENT: External ear(s): are unremarkable, Nose: is normal, Mouth: Lips: moist, Oral mucosa: moist, Tongue: dry, Posterior pharynx: Airway: no evidence of obstruction, patent, 19:30 Chest/axilla: Inspection: normal, 19:30 Cardiovascular: Rate: normal, Rhythm: regular, Edema: is not appreciated, JVD: is not appreciated, 19:30 Respiratory: the patient does not display signs of respiratory distress, Respirations: normal, no use of accessory muscles, no retractions, labored breathing, is not present, Breath sounds: are clear throughout, no decreased breath sounds, no stridor, no wheezing, 19:30 Abdomen/GI: Inspection: obese Bowel sounds: active, all quadrants, Palpation: soft, in all quadrants, moderate abdominal tenderness, in all quadrants, rebound tenderness, is not appreciated, 19:30 Back: CVA tenderness, is absent, 19:30 Neuro: Orientation: to person, place \T\ time. Mentation: is normal, Motor: moves all fours, strength is normal, Gait: is steady, Vital Signs: 19:12 BP 151 / 94; Pulse 70; Resp 18; Temp 97.4(TE); Pulse Ox 100% on R/A; Weight 127.91 kg; br2 Height 5 ft. 3 in. ; Pain 8/10; 23:45 BP 130 / 83; Pulse 74; Resp 18; Temp 97.2(O); Pulse Ox 100% on R/A; br2 19:12 Body Mass Index 49.95 (127.91 kg, 160.02 cm) br2 19:12 Pain Scale: Adult br2 MDM: 22:00 Differential diagnosis: viral gastroenteritis, gastroenteritis, dehydration, cp electrolyte abnormality, bowel obstruction. 22:51 Data reviewed: vital signs, nurses notes, lab test result(s), and as a result, I will cp discharge patient. 22:51 I considered the following discharge prescriptions or medication management in the emergency department Medications were administered in the Emergency Department. See MAR. Care significantly affected by the following chronic conditions: Hypertension, Obesity. Counseling: I had a detailed discussion with the patient and/or guardian regarding the historical points, exam findings, and any diagnostic results supporting the discharge/admit diagnosis, lab results, radiology results, to return to the emergency department if symptoms worsen or persist or if there are any questions or concerns that arise at home. Response to treatment: the patient's symptoms have markedly improved after treatment. ED course: VSS. Pain and nausea markedly improved, vomiting resolved. 22:52 Medical Screening Exam initiated 02/10 19:11 Order name: CBC with Diff; Complete Time: 22:07 02/10 22:07 Interpretation: Normal except: MCV 77.2; MCH 25.7; RDW 16.3. 02/10 19:11 Order name: CMP; Complete Time: 22:07 02/10 22:07 Interpretation: Normal except: K 3.4; CL 108; TP 8.9; ALB 3.3; GLOB 5.6; A/G 0.6. 02/10 19:11 Order name: Lipase; Complete Time: 22:07 02/10 19:11 Order name: Test, Urine; Complete Time: 21:00 02/10 19:11 Order name: UA Rfx Sinan Cult if indicated; Complete Time: 21:00 02/10 19:11 Order name: IV Saline Lock; Complete Time: 21:45 02/10 19:11 Order name: Labs collected and sent; Complete Time: 21:45 02/10 22:14 Order name: PO challenge; Complete Time: 23:59 cp Administered Medications: 21:54 Drug: NS 0.9% IV 1000 ml IV at 1 bolus Per protocol; to be given as a bolus over 60 me1 minutes Route: IV; Rate: 1 bolus; Site: right antecubital; 23:00 Follow up: Response: No adverse reaction; IV Status: Completed infusion; IV Intake: br2 1000ml 21:54 Drug: Droperidol IVP 1.25 mg IVP once Route: IVP; Site: right antecubital; me1 22:30 Follow up: Response: No adverse reaction br2 21:54 Drug: metoCLOPramide IVP 10 mg IVP once; over 1 to 2 minutes Route: IVP; Site: right me1 antecubital; 22:30 Follow up: Response: No adverse reaction br2 21:54 Drug: diphenhydrAMINE IVP 25 mg IVP once Route: IVP; Site: right antecubital; me1 22:30 Follow up: Response: No adverse reaction br2 23:31 Drug: Potassium PO Effervescent Tablet 50 mEq PO once; dissolve in 4 ounces of water or br2 juice Route: PO; 23:59 Follow up: Response: Medication administered at discharge. br2 Disposition Summary: 02/10/25 22:52 Discharge Ordered Notes: Location: Home cp Problem: new cp Symptoms: have improved cp Condition: Stable cp Diagnosis - Nausea with vomiting, unspecified cp - Diarrhea, unspecified cp Followup: cp - With: Private Physician - When: 2 - 3 days - Reason: Worsening of condition Discharge Instructions: - Discharge Summary Sheet cp - Food Choices to Help Relieve Diarrhea, Adult cp - Diarrhea, Adult cp - Nausea and Vomiting, Adult cp Forms: - Medication Reconciliation Form cp - Antibiotic Education cp - Prescription Opioid Use cp - Patient Portal Instructions cp - Leadership Thank You Letter cp Prescriptions: - Reglan 10 mg Oral Tablet - take 1 tablet ORAL route every 6 hours take 30 minutes before meals and at cp bedtime; 20 tablet; Refills: 0, Product Selection Permitted - Carafate 1 gram Oral Tablet - take 2 tablets ORAL route every 12 hours take on an empty stomach, beginning on cp waking and last dose at bedtime; 100 tablet; Refills: 0, Product Selection Permitted - dicyclomine 20 mg Oral tablet - take 1 tablet ORAL route 4 times per day; 30 tablet; Refills: 0, Product cp Selection Permitted Signatures: Dispatcher [employer] EDMS Hardy Mahoney PA PA cp Eufmeia Martinez RN RN me1 Cheyanne Anderson RN RN br2 Corrections: (The following items were deleted from the chart) 19:11 19:11 CBC+H.LAB.BRZ ordered. EDMS EDMS 19:11 19:11 COMPREHENSIVE METABOLIC PANEL+C.LAB.BRZ ordered. EDMS EDMS 19:11 19:11 LIPASE+C.LAB.BRZ ordered. EDMS EDMS 19:11 19:11 Test, Urine+UC.LAB.BRZ ordered. EDMS EDMS : UA Rfx Sinan Cult if indicated+U.LAB.BRZ ordered. EDMS EDMS
--- NOTE | 2025-02-10 22:52 | ER ---
Nurse's Notes [facility] Name: Dori Guardado Age: 50 yrs Sex: Female : 1975 Arrival Date: 02/10/2025 Time: 18:47 Bed 20 Private MD: Diagnosis: Nausea with vomiting, unspecified;Diarrhea, unspecified Presentation: 02/10 19:12 Chief complaint: Patient states: EPIGASTRIC PAIN, NAUSEA THAT BEGAN ON SAT. br2 VOMITING/DIARRHEA BEGAN TODAY. JUST COMPLETED MED FOR COLITIS. Coronavirus screen: Client denies travel out of the [place] in the last 14 days. Ebola Screen: Patient denies exposure to infectious person. Initial Sepsis Screen: Does the patient meet any 2 criteria? No. Patient's initial sepsis screen is negative. Does the patient have a suspected source of infection? No. Patient's initial sepsis screen is negative. Risk Assessment: Do you want to hurt yourself or someone else? Patient reports no desire to harm self or others. Onset of symptoms was February 08, 2025. 19:12 Method Of Arrival: Ambulatory br2 19:12 Acuity: KASH 3 br2 Triage Assessment: 19:15 General: Appears in no apparent distress. uncomfortable, Behavior is calm, cooperative. br2 Pain: Complains of pain in epigastric area Pain currently is 8 out of 10 on a pain scale. GI: Reports lower abdominal pain, diarrhea, nausea, vomiting. 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 - Infectious Disease History:: Denies. - Social history:: Smoking status: Patient denies any tobacco usage or history of. Patient/guardian denies using alcohol, street drugs. Screenin:12 [facility] ED Fall Risk Assessment (Adult) History of falling in the last 3 months, br2 including since admission No falls in past 3 months (0 pts) Confusion or Disorientation No (0 pts) Intoxicated or Sedated No (0 pts) Impaired Gait No (0 pts) Mobility Assist Device Used No (0 pt) Altered Elimination No (0 pt) Score/Fall Risk Level 0 - 2 = Low Risk Oriented to surroundings. Abuse screen: Denies threats or abuse. Denies injuries from another. Nutritional screening: No deficits noted. Tuberculosis screening: No symptoms or risk factors identified. Assessment: 22:00 Reassessment: Patient and/or family updated on plan of care and expected duration. Pain br2 level reassessed. see triage assessment. 22:20 Reassessment: Patient and/or family updated on plan of care and expected duration. Pain br2 level reassessed. Patient is alert, oriented x 3, equal unlabored respirations, skin warm/dry/pink. Patient states feeling better. Patient states symptoms have improved. Vital Signs: 19:12 BP 151 / 94; Pulse 70; Resp 18; Temp 97.4(TE); Pulse Ox 100% on R/A; Weight 127.91 kg; br2 Height 5 ft. 3 in. ; Pain 8/10; 23:45 BP 130 / 83; Pulse 74; Resp 18; Temp 97.2(O); Pulse Ox 100% on R/A; br2 19:12 Body Mass Index 49.95 (127.91 kg, 160.02 cm) br2 19:12 Pain Scale: Adult br2 ED Course: 18:51 Patient arrived in ED. cj3 18:51 Hardy Mahoney PA is PHCP. cp 18:51 Renae Oconnor MD is Attending Physician. cp 19:12 Allergy band placed. Provided Education on: plan of care. br2 19:15 Triage completed. br2 20:47 Missed attempt(s): 20 gauge Bleeding controlled, band aid applied, catheter tip intact. rk3 21:22 Eufemia Martinez, LEONA is Primary Nurse. me1 21:45 CBC with Diff Sent. me1 21:45 CMP Sent. me1 21:45 Lipase Sent. me1 23:47 IV discontinued, intact, bleeding controlled, No redness/swelling at site. Pressure br2 dressing applied. Administered Medications: 21:54 Drug: NS 0.9% IV 1000 ml IV at 1 bolus Per protocol; to be given as a bolus over 60 me1 minutes Route: IV; Rate: 1 bolus; Site: right antecubital; 23:00 Follow up: Response: No adverse reaction; IV Status: Completed infusion; IV Intake: br2 1000ml 21:54 Drug: Droperidol IVP 1.25 mg IVP once Route: IVP; Site: right antecubital; tx1 22:30 Follow up: Response: No adverse reaction br2 21:54 Drug: metoCLOPramide IVP 10 mg IVP once; over 1 to 2 minutes Route: IVP; Site: right me1 antecubital; 22:30 Follow up: Response: No adverse reaction br2 21:54 Drug: diphenhydrAMINE IVP 25 mg IVP once Route: IVP; Site: right antecubital; tx1 22:30 Follow up: Response: No adverse reaction br2 23:31 Drug: Potassium PO Effervescent Tablet 50 mEq PO once; dissolve in 4 ounces of water or br2 juice Route: PO; 23:59 Follow up: Response: Medication administered at discharge. br2 Intake: 23:00 IV: 1000ml; Total: 1000ml. br2 Outcome: 22:52 Discharge ordered by MD. cp 23:57 Discharged to home ambulatory, br2 23:57 Condition: improved 23:57 Discharge instructions given to patient, Instructed on discharge instructions, follow up and referral plans. Demonstrated understanding of instructions, follow-up care, medications, Prescriptions given X 3, 02/11 00:00 Patient left the ED. br2 Signatures: Hardy Mahoney PA PA cp Eddleman, Michelle, RN RN me1 Cheyanne Anderson RN RN br2 Virgie Ibrahim rk3 Kelsie Duarte 3
[2025-02-10] MEDS ORDERED: POTASSIUM 25 MEQ EFFERV TAB ONE (23:30)
[2025-02-11 00:21] VITALS: O2SAT 100
[2025-02-11 00:22] VITALS: BP 130/83; TEMP 97.2
== END 2025-02-11 | disposition home or self-care (01) ==
LOC: ER 18:47
DX: R11.2 Nausea with vomiting, unspecified (principal); R19.7 Diarrhea, unspecified
CPT/HCPCS: 96361; 85025; 81001; 36415; 81025; 83690; 80053; 96375; 96374; 99284; J2765; J1200; J1790; J7030

== ENCOUNTER 2025-07-19 19:11 | Emergency (ER) | payer OTHER ==
[2025-07-19 19:55] LABS: Urine Microscopic Reflex YN NO UMIC
[2025-07-19 20:46] LABS: Absolute Lymphocytes (CBC) 2.6 K/uL (0.7-4.9); Hematocrit 28.6 % (36.0-45.0); Hemoglobin 9.2 g/dL (12.0-15.0); MCH 24.4 pg (27.0-35.0); MCHC 32.1 g/dL (32.0-36.0); MCV 76.0 fL (80-100); MPV 8.1 fL (7.6-11.3); Nucleated RBC Absolute Count 0.0 (0-0); Nucleated Red Blood Cells % 0.0 % (0-0); RBC Red Blood Cell Count 3.77 M/uL (3.86-4.86); White Blood Count 6.30 thou/uL (4.3-10.9)
[2025-07-19 21:08] LABS: ALT/SGPT 20 U/L (13-56); AST/SGOT 16 U/L (15-37); Albumin 3.1 g/dL (3.4-5.0); Albumin/Globulin Ratio 0.6 (1.1-1.8); Alkaline Phosphatase 72 U/L (45-117); Anion Gap 9.5 mEq/L (5.0-15.0); BUN Blood Urea Nitrogen 10 mg/dL (7-18); Globulin 5.0 g/dL (2.3-3.5); Glucose Level 88 mg/dL (74-106); Magnesium 1.8 mg/dL (1.6-2.4); Potassium 3.5 mEq/L (3.5-5.1); Troponin High Sensitivity 4.8 pg/mL (<58.9)
[2025-07-19 21:18] LABS: Bilirubin Indirect, Calculated 0.3 mg/dL (0.2-0.8)
--- NOTE | 2025-07-19 21:31 | ER ---
Nurse's Notes [facility] Name: Dori Guardado Age: 50 yrs Sex: Female : 1975 Arrival Date: 07/19/2025 Time: 19:11 Bed 13 Private MD: Diagnosis: Muscle cramps, hypokalemia Presentation: 07/19 19:20 Chief complaint: Patient states: SHE BEGAN HAVING HAND AND LEG CRAMPS LAST NIGHT AND dd2 TODAY AND URINARY FREQUENCY. PT DENIES PAIN OR BURNING WITH URINATION. Coronavirus screen: At this time, the client does not indicate any symptoms associated with coronavirus-19. Ebola Screen: No symptoms or risks identified at this time. Initial Sepsis Screen: Does the patient meet any 2 criteria? No. Patient's initial sepsis screen is negative. Does the patient have a suspected source of infection? No. Patient's initial sepsis screen is negative. Risk Assessment: Do you want to hurt yourself or someone else? Patient reports no desire to harm self or others. Onset of symptoms was July 18, 2025. 19:20 Method Of Arrival: Ambulatory dd2 19:20 Acuity: KASH 3 dd2 Triage Assessment: 19:22 General: Appears in no apparent distress. Behavior is calm, cooperative, appropriate dd2 for age. Pain: Complains of pain in right hand, left hand, right leg and left leg Pain currently is 5 out of 10 on a pain scale. Quality of pain is described as crampy. : Reports urinary frequency. Musculoskeletal: Reports pain in right hand, left hand, right leg and left leg. Historical: - Allergies: 19:22 No Known Allergies; dd2 - PMHx: 19:22 Atrial Fib; bowel obstruction; Crohn's; DVT; Hypertension; dd2 - PSHx: 19:22 ablation; Appendectomy; section; Cholecystectomy; partial hysterectomy; dd2 - Immunization history:: Adult Immunizations unknown. - Infectious Disease History:: Denies. - Social history:: Smoking status: Patient denies any tobacco usage or history of. Screenin:[address] [facility] ED Fall Risk Assessment (Adult) History of falling in the last 3 months, rg5 including since admission No falls in past 3 months (0 pts) Confusion or Disorientation No (0 pts) Intoxicated or Sedated No (0 pts) Impaired Gait No (0 pts) Mobility Assist Device Used No (0 pt) Altered Elimination No (0 pt) Score/Fall Risk Level 0 - 2 = Low Risk Oriented to surroundings, Maintained a safe environment. 19:20 Abuse screen: Denies threats or abuse. Nutritional screening: No deficits noted. rg5 Tuberculosis screening: No symptoms or risk factors identified. Assessment: 19:20 General: Appears in no apparent distress. Behavior is calm, cooperative, appropriate rg5 for age. 19:20 Pain: Denies pain. Neuro: Level of Consciousness is awake, alert, obeys commands, rg5 Oriented to person, place, time, situation. Cardiovascular: Patient's skin is warm and dry. Respiratory: Airway is patent Trachea midline Respiratory effort is even, unlabored. GI: Abdomen is obese. : Reports urinary frequency. EENT: No signs and/or symptoms were reported regarding the EENT system. Derm: Skin is intact, Skin is normal. Musculoskeletal: Circulation, motion, and sensation intact. Range of motion: intact in all extremities. 20:13 Reassessment: No changes from previously documented assessment. Patient is alert, rg5 oriented x 3, equal unlabored respirations, skin warm/dry/pink. 21:21 Reassessment: No changes from previously documented assessment. Patient and/or family rg5 updated on plan of care and expected duration. Pain level reassessed. Patient is alert, oriented x 3, equal unlabored respirations, skin warm/dry/pink. Vital Signs: 19:20 BP 166 / 104; Pulse 82; Resp 17; Temp 98; Pulse Ox 99% on R/A; Weight 120.2 kg; Height dd2 5 ft. 3 in. ; Pain 5/10; 20:00 BP 165 / 100; Pulse 85; Resp 18; Pulse Ox 98% on R/A; rg5 20:44 BP 131 / 101; Pulse 92; Resp 18; Pulse Ox 98% ; rg5 21:10 BP 149 / 84; Pulse 73; Resp 18; Pulse Ox 100% ; rg5 19:20 Body Mass Index 46.94 (120.20 kg, 160.02 cm) dd2 19:20 Pain Scale: Adult dd2 ED Course: 19:13 Patient arrived in ED. im 19:13 Emerita Lynch MD is Attending Physician. sp3 19:15 Mo Carmona, RN is Primary Nurse. rg5 19:20 Patient has correct armband on for positive identification. Bed in low position. Call rg5 light in reach. Side rails up X 1. Door closed. Noise minimized. 19:20 Missed attempt(s):. rg5 19:20 No provider procedures requiring assistance completed. rg5 19:22 Triage completed. dd2 19:22 Arm band placed on right wrist. dd2 21:37 IV discontinued, bleeding controlled, No redness/swelling at site. Pressure dressing rg5 applied. Administered Medications: No medications were administered Medication: 20:00 VIS not applicable for this client. rg5 Outcome: 21:31 Discharge ordered by . sp3 21:37 Discharged to home ambulatory, rg5 21:37 Condition: stable 21:37 Discharge instructions given to patient, Instructed on discharge instructions, Demonstrated understanding of instructions, 21:38 Patient left the ED. rg5 Signatures: Emerita Lynch MD MD sp3 Lakia Jin Rommel, RN RN rg5 ADRIEL NUNES RN RN dd2
--- NOTE | 2025-07-19 21:31 | EDPHYS ---
Physician Documentation [facility] Name: Dori Guardado Age: 50 yrs Sex: Female : 1975 Arrival Date: 07/19/2025 Time: 19:11 Bed 13 Private MD: ED Physician Emerita Lynch HPI: 07/19 19:28 This 50 yrs old Black Female presents to ER via Ambulatory with complaints of muscle sp3 cramps legs/hands, Urinary Frequency. 19:28 50-year-old female with history of atrial fibrillation status post ablation, Crohn's sp3 disease, prior DVT, hypertension, on Eliquis presents to the ED with chief complaint muscle cramps while at work. Patient says she took pickle juice and p.o. potassium tablet which has helped somewhat. She has a history of hypokalemia. Just states she has had urinary frequency but denies dysuria, cloudy urine, gross visualized hematuria, or any other symptoms. She denies chest pain, shortness of breath, fever, trauma. Remainder of ROS negative.. Historical: - Allergies: 19:22 No Known Allergies; dd2 - PMHx: 19:22 Atrial Fib; bowel obstruction; Crohn's; DVT; Hypertension; dd2 - PSHx: 19:22 ablation; Appendectomy; section; Cholecystectomy; partial hysterectomy; dd2 - Immunization history:: Adult Immunizations unknown. - Infectious Disease History:: Denies. - Social history:: Smoking status: Patient denies any tobacco usage or history of. ROS: 19:30 Constitutional: Negative for fever, chills, and weight loss, Eyes: Negative for injury, sp3 pain, redness, and discharge, ENT: Negative for injury, pain, and discharge, Neck: Negative for injury, pain, and swelling, Cardiovascular: Negative for chest pain, palpitations, and edema, Respiratory: Negative for shortness of breath, cough, wheezing, and pleuritic chest pain, Abdomen/GI: Negative for abdominal pain, nausea, vomiting, diarrhea, and constipation, Back: Negative for injury and pain, Skin: Negative for injury, rash, and discoloration, Neuro: Negative for headache, weakness, numbness, tingling, and seizure, Psych: Negative for depression, anxiety, suicide ideation, homicidal ideation, and hallucinations, Allergy/Immunology: Negative for hives, rash, and allergies, Endocrine: Negative for neck swelling, polydipsia, polyuria, polyphagia, and marked weight changes, 19:30 All other systems are negative, Exam: 19:30 Constitutional: This is a well developed, well nourished patient who is awake, alert, sp3 and in no acute distress. Head/Face: Normocephalic, atraumatic. Eyes: Pupils equal round and reactive to light, extra-ocular motions intact. Lids and lashes normal. Conjunctiva and sclera are non-icteric and not injected. Cornea within normal limits. Periorbital areas with no swelling, redness, or edema. Neck: Trachea midline, no thyromegaly or masses palpated, and no cervical lymphadenopathy. Supple, full range of motion without nuchal rigidity, or vertebral point tenderness. No Meningismus. Chest/axilla: Normal chest wall appearance and motion. Nontender with no deformity. No lesions are appreciated. Cardiovascular: Regular rate and rhythm with a normal S1 and S2. No gallops, murmurs, or rubs. Normal PMI, no JVD. No pulse deficits. Respiratory: Lungs have equal breath sounds bilaterally, clear to auscultation and percussion. No rales, rhonchi or wheezes noted. No increased work of breathing, no retractions or nasal flaring. Abdomen/GI: Soft, non-tender, with normal bowel sounds. No distension or tympany. No guarding or rebound. No evidence of tenderness throughout. Back: No spinal tenderness. No costovertebral tenderness. Full range of motion. Skin: Warm, dry with normal turgor. Normal color with no rashes, no lesions, and no evidence of cellulitis. MS/ Extremity: Pulses equal, no cyanosis. Neurovascular intact. Full, normal range of motion. Neuro: Awake and alert, GCS 15, oriented to person, place, time, and situation. Cranial nerves II-XII grossly intact. Motor strength 5/5 in all extremities. Sensory grossly intact. Cerebellar exam normal. Normal gait. Psych: Awake, alert, with orientation to person, place and time. Behavior, mood, and affect are within normal limits. 20:17 ECG was reviewed by the Attending Physician. EKG demonstrates normal sinus rhythm at 72 sp3 bpm with normal intervals, normal QRS, normal axis and normal ST/T-segment's without evidence of acute ischemia. Vital Signs: 19:20 BP 166 / 104; Pulse 82; Resp 17; Temp 98; Pulse Ox 99% on R/A; Weight 120.2 kg; Height dd2 5 ft. 3 in. ; Pain 5/10; 20:00 BP 165 / 100; Pulse 85; Resp 18; Pulse Ox 98% on R/A; rg5 20:44 BP 131 / 101; Pulse 92; Resp 18; Pulse Ox 98% ; rg5 21:10 BP 149 / 84; Pulse 73; Resp 18; Pulse Ox 100% ; rg5 19:20 Body Mass Index 46.94 (120.20 kg, 160.02 cm) dd2 19:20 Pain Scale: Adult dd2 MDM: 19:15 Medical Screening Exam initiated sp3 19:30 Data reviewed: vital signs, nurses notes, old medical records, lab test result(s), EKG. sp3 ED course: 50-year-old female with PMH above now with muscle cramps and urinary frequency. Differential diagnosis includes electrolyte disturbance, dehydration, UTI, hyperglycemia, among others. Workup will include general labs, EKG and UA. We will replenish any needed fluids and/or electrolytes and if all negative, safely discharge patient home.. 21:30 ED course: Urine clean and electrolytes are normal. Potassium 3.5 after patient taking sp3 p.o. potassium as it was likely low earlier. No other other intervention indicated. We will safely discharge patient home at this time.. 07/19 19:23 Order name: UA Rfx Sinan Cult if indicated; Complete Time: 20:46 3 07/19 19:23 Order name: Basic Metabolic Panel; Complete Time: 21:21 sp3 07/19 19:23 Order name: CBC with Diff; Complete Time: 20:54 sp3 07/19 19:23 Order name: LFT's; Complete Time: 21:21 sp3 07/19 19:23 Order name: Magnesium; Complete Time: 21:21 sp3 07/19 19:23 Order name: Troponin HS; Complete Time: 21:21 3 07/19 19:23 Order name: EKG; Complete Time: 19:23 3 07/19 19:23 Order name: EKG - Nurse/Tech; Complete Time: 20:44 sp3 07/19 19:23 Order name: IV Saline Lock; Complete Time: 20:44 sp3 07/19 19:23 Order name: Labs collected and sent; Complete Time: 20:44 sp3 Administered Medications: No medications were administered Disposition Summary: 07/19/25 21:31 Discharge Ordered Notes: Location: Home sp3 Condition: Stable sp3 Diagnosis - Muscle cramps, hypokalemia sp3 Followup: sp3 - With: Private Physician - When: Upon discharge from the Emergency Department - Reason: Continuance of care Discharge Instructions: - Discharge Summary Sheet sp3 - Hypokalemia sp3 Forms: - Medication Reconciliation Form sp3 - Antibiotic Education sp3 - Prescription Opioid Use sp3 - Patient Portal Instructions sp3 - Leadership Thank You Letter sp3 Signatures: Dispatcher [employer] EDEmerita Eng MD MD sp3 Mo Carmona RN RN rg5 ADRIEL NUNES RN RN dd2 Corrections: (The following items were deleted from the chart) 19:24 19:23 UA Rfx Sinan Cult if indicated+U.LAB.BRZ ordered. EDMS EDMS 19:24 19:23 BASIC METABOLIC PANEL+C.LAB.BRZ ordered. EDMS EDMS 19:24 19:23 CBC+H.LAB.BRZ ordered. EDMS EDMS 19:24 19:23 HEPATIC FUNCTION+C.LAB.BRZ ordered. EDMS EDMS 19:24 19:23 MAGNESIUM+C.LAB.BRZ ordered. EDMS EDMS 19:24 19:23 Troponin High Sensitivity+C.LAB.BRZ ordered. EDMS EDMS
[2025-07-19 21:48] VITALS: TEMP 98
[2025-07-19 21:53] VITALS: BP 149/84; O2SAT 100
== END 2025-07-19 21:38 | disposition home or self-care (01) ==
LOC: ER 19:11
DX: E87.6 Hypokalemia (principal); I10 Essential (primary) hypertension; I48.91 Unspecified atrial fibrillation; Z79.01 Long term (current) use of anticoagulants; Z86.718 Personal history of other venous thrombosis and embolism
CPT/HCPCS: 36415; 80048; 80076; 81003; 83735; 84484; 85025; 93005; 99283